=== PATIENT | male | born 2000 | race Caucasian/White ===

== ENCOUNTER 2020-08-17 12:14 | Emergency (ER) | payer SELFPAY ==
[2020-08-17 12:50] VITALS: BP 125/76; PULSE 92; RESP 14; TEMP 36.6; O2SAT 98
[2020-08-17 13:47] VITALS: BMI 20.9
--- NOTE | 2020-08-17 13:47 | XRR_ITS ---
PROCEDURE INFORMATION: Exam: XR Right Hand Exam date and time: 08/17/2020 2:03 PM Age: 20 years old Clinical indication: Injury or trauma; Other: Not specified; Blunt trauma (contusions or hematomas); Right; Middle finger TECHNIQUE: Imaging protocol: XR Right hand. Views: 1 or 2 views. COMPARISON: No relevant prior studies available. FINDINGS: Bones/joints: No fracture or dislocation. Soft tissues: Obscured. XR/XR hand RT 2V [id number] IMPRESSION: No acute findings.
--- NOTE | 2020-08-17 13:49 | ED_ITS ---
HPI - Extremity Problem General: Chief complaint: Extremity Injury, Upper Stated complaint: finger injury Time Seen by Provider: 08/17/20 13:44 Source: patient Mode of arrival: ambulatory Limitations: no limitations History of Present Illness: HPI Narrative: 20-year-old male patient presents to the emergency department with right third digit pain. Patient states it was smashed at work. Patient denies any numbness or tingling. Patient has good range of motion with this. Patient denies any other injury or trauma. Patient states he needs a work note so he can have time to heal his finger. This happened yesterday. Associated symptoms: Deny chest pain or fever(s) Review of Systems Const: Denies: fever(s), chills or body aches Eyes: Denies: change in vision ENMT: Denies: throat pain Card: Denies: chest pain or palpitations Resp: Denies: dyspnea, productive cough or non-productive cough GI: Denies: abdominal pain, nausea or vomiting : Denies: flank pain Musc: Reports: extremity pain; Denies: neck pain or back pain Psych: Denies: suicidal ideation or homicidal ideation Physical Exam Const: COMMON NORMALS: no acute distress, average body habitus, patient oriented x3, no limitations, healthy appearing, alert and well nourished Extremity: COMMON NORMALS: full ROM, capillary refill normal, no joint enlargement, no clubbing, cyanosis or edema and no pedal edema RIGHT UPPER EXTREMITY: Yes hand & digits Right hand and digits: Yes inspection (No obvious trauma), Yes palpation (Tender), Yes ROM exam (Full), Yes neurovascular exam (Neurovascularly intact) and Yes tendon exam (Intact) Neuro: COMMON NORMALS: patient oriented x3 SENSORIUM/ORIENTATION: Yes alert Skin: COMMON NORMALS: no rashes or lesions noted, no wounds, turgor normal, no jaundice, no petechiae and no mottling GENERAL SKIN EXAM: no rashes or lesions noted and turgor normal Course Vital Signs: Vital signs: Vital Signs Temperature 97.9 F 08/17/20 12:50 Pulse Rate 92 08/17/20 12:50 Respiratory Rate 14 08/17/20 12:50 Blood Pressure 125/76 08/17/20 12:50 Pulse Oximetry 98 08/17/20 12:50 MDM - Extremity (Nontraumatic) MDM Narrative: Medical decision making narrative: Patient is well-appearing nontoxic and in no acute distress. Patient is neurovascularly intact distal to injury. Patient has good range of motion. There is no obvious injury or trauma noted. Patient's x-ray by my interpretation does not reveal any dislocation or fracture. Patient's finger will be splinted. Advised patient to take ibuprofen as needed for discomfort. Return precautions discussed home care reviewed. Patient is medically cleared and appropriate for discharge Discharge Plan Discharge Patient Disposition: Home Clinical Impression: Contusion of finger Qualifiers: Encounter type: initial encounter Finger: middle finger Damage to nail status: without damage Laterality: right Qualified Code(s): S60.031A - Contusion of right middle finger without damage to nail, initial encounter Condition: Stable Discharge Orders: Discharge Order (Routine); Ordered 08/17/20 Ordered By: Margi Jung Discharge Diet: Advance as tolerated Discharge Activity: Resume usual activity Activity Restrictions/Additional Instructions: Wear finger splint for comfort May return to work Stand Alone Forms: Work/School Release Coding Level of Care Code ED 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
[2020-08-17 14:23] VITALS: BP 112/71; PULSE 72; RESP 18; TEMP 36.4; O2SAT 98
== END 2020-08-17 14:50 | disposition home or self-care (01) ==
PROVIDERS: Emergency Provider Registered Nurse
DX: S60.031A Contusion of right middle finger without damage to nail, initial encounter (principal); W23.0XXA Caught, crushed, jammed, or pinched between moving objects, initial encounter
CPT/HCPCS: 12345; 73120; 99281; 99282

== ENCOUNTER 2024-01-25 13:54 | Emergency (ER) | payer SELFPAY ==
--- NOTE | 2024-01-25 13:55 | XR_ITS ---
WS: [id number] Portable AP upright chest, 01/25/2024 Clinical Data: cp Comparison: None. Findings: No nodules, masses or effusions are seen. The heart is normal. The pulmonary vascularity is not increased. No pneumonia or pneumothorax is seen. XR/XR chest 1V portable [id number] Impression: Negative chest.
--- NOTE | 2024-01-25 13:56 | ECG_ITS ---
[facility] Test Date: 2024-01-25 Pat Name: Javed Do Department: Room: Gender: Male Recep: : 2000 Requested By: Vijaya Melton Order Number: [id number] Murcia MD: Abdelrahman Mcpherson M.D. Measurements Intervals Melber Rate: 86 P: 77 MI: 149 QRS: 84 QRSD: 90 T: 65 QT: 344 QTc: 414 Interpretive Statements SINUS RHYTHM POSSIBLE LEFT ATRIAL ENLARGEMENT [-0.1mV P-WAVE IN V1/V2] No previous ECG available for comparison Electronically Signed On 01-25-2024 17:12:00 CDT by Abdelrahman Mcpherson M.D. [id number]
[2024-01-25 14:02] VITALS: BP 124/74; PULSE 87; RESP 22; O2SAT 97
[2024-01-25 14:26] LABS: Hematocrit 43.2 % (37-53); Mean Corpuscular HGB Conc 33.1 g/dL (30-55); Mean Corpuscular Hemoglobin 29.4 pg (27-33); Mean Corpuscular Volume 88.7 fl (82-101); Mean Platelet Volume 9.8 fL (7.4-10.4); Platelet Count 188 10^3/cmm (157-399); Red Blood Count 4.87 10^6/uL (3.85-5.65); Red Cell Distribution Width 13.1 % (12.1-15.1); White Blood Count 12.15 10^3/uL (3.29-11.43)
[2024-01-25 14:46] LABS: Alanine Aminotransferase 32 U/L (0-41); Albumin Level 4.8 g/dL (3.5-5.2); Alkaline Phosphatase 128 U/L (40-130); Aspartate Amino Transferase 44 U/L (0-40); Blood Urea Nitrogen 9 mg/dL (6-20); Calcium 9.3 mg/dL (8.5-10.5); Carbon Dioxide 23 mmol/L (22-29); Chloride 98 mmol/L (98-107); Creatinine Clr Calc Pharmacy 179.1528; Glomerular Filtration Rate 138.6 mL/min (90-130); Glucose 108 mg/dL (65-115); Lipase 16 U/L (13-60); Osmolality Calculated 281 mOsm/kg (285-295); Sodium 136 mmol/L (136-145); Total Bilirubin 0.8 mg/dL (0.15-1.2); Total Protein 8.8 g/dL (6.6-8.7)
[2024-01-25 15:06] LABS: Slide Review Slide Review Perform
[2024-01-25 15:07] LABS: Absolute Eosinophils 0.4 10^3/cmm (0.0-0.7); Absolute Neutrophil 6.8 10^3/cmm (1.4-6.5); Absolute Segmented Neutrophil 5.3 10/cmm (1.6-7.1); Band Neutrophils Absolute 1.5 10^3/cmm (0.0-1.2); Eosinophils 3 %; Lymphocytes 29 %; Lymphocytes Absolute 3.5 10^3/cmm (1.2-3.4); Monocytes Absolute 0.9 10^3/cmm (0.1-0.6); Platelet Estimate Decreased (Normal); Segmented Neutrophils 44 %; Total Cells Counted 100 (0-100)
[2024-01-25 15:08] LABS: Giant Platelets Trace
[2024-01-25 16:32] VITALS: BP 141/82; PULSE 92; O2SAT 96
--- NOTE | 2024-01-25 16:37 | ED_ITS ---
HPI - Abdominal Pain 2 General: Chief Complaint: Abdominal Pain Stated Complaint: abd pain, lower back pain, chest pains Time Seen by Provider: 01/25/24 15:12 History of Present Illness: 23-year-old male patient comes in with a bdominal pain x 4 days. Patient reports nausea but no vomiting or diarrhea. Patient reports no blood in urine or stool. Patient denies any fever. Patient reports the pain seems to be all over his abdomen going to his right back and right inguinal area. Patient does use nicotine and THC. Patient denies alcohol or methamphetamines. Patient has no chronic medical problems and has had no surgeries except tympanostomy tubes in youth. Review of Systems 2 General: Reports: 10 or more systems reviewed and unremarkable except in HPI and below GI: Reports: abdominal pain Physical Exam 2 Const: COMMON NORMALS: alert HENMT: COMMON NORMALS: normocephalic HEAD & SCALP: normocephalic Neck/C-Spine: COMMON NORMALS: full ROM Resp: COMMON NORMALS: normal respiratory effort and clear to auscultation bilaterally AUSCULTATION: clear to auscultation bilaterally Cardio: COMMON NORMALS: regular rate RATE: regular rate GI: INSPECTION: Yes normal to inspection AUSCULTATION: Yes normoactive bowel sounds PALPATION: Yes Firmness to palpation present (GI) and Yes Tenderness to palpation present (GI) (Generalized) : COMMON NORMALS: Yes no CVA tenderness BLADDER/KIDNEY EXAM: Yes no CVA tenderness Back/Pelvis: COMMON NORMALS: no CVA tenderness Extremity: COMMON NORMALS: normal to inspection Neuro: SENSORIUM/ORIENTATION: Yes alert Skin: COMMON NORMALS: turgor normal NARRATIVE SKIN EXAM: Skin color slightly pale GENERAL SKIN EXAM: turgor normal Course 2 Vital Signs: Vital signs: Vital Signs Pulse Rate 92 01/25/24 16:32 Respiratory Rate 18 01/25/24 17:36 Blood Pressure 141/82 01/25/24 16:32 Pulse Oximetry 95 01/25/24 17:36 Oxygen Delivery Me thod Room Air 01/25/24 16:32 MDM - Abdominal Pain Medical Decision Making Patient comes in today for complaints of abdominal pain with nausea for the last 4 days. Patient appears unwell but not toxic. Skin is warm and dry color slightly pale. Abdomen is flat with some tenderness generalized to it. Patient moves all extremities well. Patient reported some tenderness in the chest wall with palpation. Vital signs are normal except for some mild elevation in respirations. Differential diagnosis incLudes renal calculi, viral syndrome, gastritis, pancreatitis, appendicitis, renal pyelonephritis, colitis. CBC noted some mild elevation white count 12,000. CMP was normal. CT of the abdomen pelvis noted no acute abdominal or pelvis abnormalities. Chest x-ray was negative. Patient was given IV fluids and medications for pain and nausea. Recommended treatment for viral syndrome with recommendations for follow-up or return to the ER. Patient reported understanding. Lab Data 01/25/24 14:16 01/25/24 14:16 Labs/Radiology: Radiology Impressions Chest X-Ray 01/25/24 13:55 Impression: Negative chest. Abdomen/Pelvis CT 01/25/24 16:43 IMPRESSION: 1. No evidence of acute abnormality in the abdomen or pelvis within limitations of a noncontrast exam. 2. Small right hip joint effusion. If there is concern for labral, muscle or tendon pathology, follow-up outpatient MRI may be helpful. Laboratory Results WBC 12.15 10^3/uL (3.29-11.43) H 01/25/24 14:16 RBC 4.87 10^6/uL (3.85-5.65) 01/25/24 14:16 Hgb 14.30 g/dL (11.27-16.99) 01/25/24 14:16 Hct 43.2 % (37-53) 01/25/24 14:16 MCV 88.7 fl (82-101) 01/25/24 14:16 MCH 29.4 pg (27-33) 01/25/24 14:16 MCHC 33.1 g/dL (30-55) 01/25/24 14:16 RDW 13.1 % (12.1-15.1) 01/25/24 14:16 Plt Count 188 10^3/cmm (157-399) 01/25/24 14:16 MPV 9.8 fL (7.4-10.4) 01/25/24 14:16 Lymph % (Auto) Not Reportable 01/25/24 14:16 [place] % (Auto) Not Reportable 01/25/24 14:16 Lymph # (Auto) Not Reportable 01/25/24 14:16 [place] # (Auto) Not Reportable 01/25/24 14:16 Total Counted 100 (0-100) 01/25/24 14:16 Atypical Lymphs % 0.0 % (0-5) 01/25/24 14:16 Absolute Neutrophils 6.8 10^3/cmm (1.4-6.5) H 01/25/24 14:16 Segmented Neutrophils 44 % 01/25/24 14:16 Abs Segm Neuts (Man) 5.3 10/cmm (1.6-7.1) 01/25/24 14:16 Band Neutrophils 12.0 % 01/25/24 14:16 Abs Band Neuts (Man) 1.5 10^3/cmm (0.0-1.2) H 01/25/24 14:16 Absolute Lymphocytes 3.5 10^3/cmm (1.2-3.4) H 01/25/24 14:16 Lymphocytes (Manual) 29 % 01/25/24 14:16 Monocytes (Manual) 7.0 % 01/25/24 14:16 Absolute Monocytes 0.9 10^3/cmm (0.1-0.6) H 01/25/24 14:16 Eosinophils (Manual) 3 % 01/25/24 14:16 Absolute Eosinophils 0.4 10^3/cmm (0.0-0.7) 01/25/24 14:16 Basophils (Manual) 0.0 % 01/25/24 14:16 Absolute Basophils 0.0 10^3/cmm (0.0-0.2) 01/25/24 14:16 Metamyelocytes 2.0 % 01/25/24 14:16 Myelocytes 2.0 % 01/25/24 14:16 Nucleated RBCs 1.0 /100WBC (0-1) 01/25/24 14:16 Platelet Estimate Decreased (Normal) 01/25/24 14:16 Giant Platelets Trace 01/25/24 14:16 Sodium 136 mmol/L (136-145) 01/25/24 14:16 Potassium 4.0 mmol/L (3.5-5.1) 01/25/24 14:16 Chloride 98 mmol/L (98-107) 01/25/24 14:16 Carbon Dioxide 23 mmol/L (22-29) 01/25/24 14:16 Anion Gap 19.0 (5-19) 01/25/24 14:16 BUN 9 mg/dL (6-20) 01/25/24 14:16 Creatinine 0.7 mg/dL (0.7-1.2) 01/25/24 14:16 GFR Calculation 138.6 mL/min (90-130) H 01/25/24 14:16 Glucose 108 mg/dL (65-115) 01/25/24 14:16 Calculated Osmolality 281 mOsm/kg (285-295) L 01/25/24 14:16 Calcium 9.3 mg/dL (8.5-10.5) 01/25/24 14:16 Total Bilirubin 0.8 mg/dL (0.15-1.2) 01/25/24 14:16 AST 44 U/L (0-40) H 01/25/24 14:16 ALT 32 U/L (0-41) 01/25/24 14:16 Alkaline Phosphatase 128 U/L (40-130) 01/25/24 14:16 Total Protein 8.8 g/dL (6.6-8.7) H 01/25/24 14:16 Albumin 4.8 g/dL (3.5-5.2) 01/25/24 14:16 Globulin 4.0 g/dL (1.3-4.6) 01/25/24 14:16 Lipase 16 U/L (13-60) 01/25/24 14:16 All radiology interpretation(s) finalized by discharge EKG Data EKG 1: I personally reviewed and interpreted this EKG as follows: EKG interpretation date: 01/25/24 EKG interpretation time: 14:10 Prior EKG tracings: not available for review Interpretation: EKG shows a regular sinus rhythm with a rate of [address] elevation is noted. Artifact was present on the EKG. No other ectopy was noted. No prior exam was available for comparison. Computer generated interpretation: Sinus rhythm, possible left atrial enlargement. Discharge Plan Discharge Patient Disposition: Home Clinical Impression: Viral syndrome Condition: Stable Prescriptions: New ondansetron 4 mg tablet,disintegrating 4 mg PO Q8H PRN (Reason: nausea and vomiting) Qty: 7 0RF hydrocodone-acetaminophen 5-325 mg tablet 1 tab PO Q8H PRN (Reason: pain) Qty: 7 0RF Discharge Orders: Discharge ED (Routine); Ordered 01/25/24 Ordered By: Stu Iraheta Discharge Diet: Usual diet Discharge Activity: Increase activity as tolerated Patient Instructions: Viral Syndrome (ED) Activity Restrictions/Additional Instructions: Drink plenty of water and fluids. Use acetaminophen and ibuprofen for body aches and pain. Use ondansetron for nausea and vomiting. Use hydrocodone for severe pain. Activity as tolerated. Follow-up with primary care in 2 to 3 days for recheck. Return to ED for worsening symptoms such as blood in vomit or stool, fever greater than 100.4, or increasing shortness of breath. Coding Level of Care Code ED Top Lift Trimmer for Marcelo Driscoll
--- NOTE | 2024-01-25 16:43 | CTR_ITS ---
PROCEDURE INFORMATION: Exam: CT Abdomen And Pelvis Without Contrast Exam date and time: 01/25/2024 4:49 PM Age: 23 years old Clinical indication: Abdominal pain; Localized; Right lower quadrant (rlq); Patient HX: Right groin pain that radiates to his back; Additional info: Right back inguinal pain TECHNIQUE: Imaging protocol: Computed tomography of the abdomen and pelvis without contrast. Radiation optimization: All CT scans at this facility use at least one of these dose optimization techniques: automated exposure control; mA and/or kV adjustment per patient size (includes targeted exams where dose is matched to clinical indication); or iterative reconstruction. COMPARISON: CR XR chest 1V portable [id number] 01/25/2024 2:09 PM RADIATION DOSE METRICS: Total DLP (mGy-cm): 592.28 FINDINGS: Lungs: Subsegmental bibasilar atelectasis. The visualized lung bases are otherwise clear. Diaphragm: No evidence of diaphragmatic defect. Liver: No evidence of focal hepatic lesion within limitation of a noncontrast exam. Gallbladder and bile ducts: Gallbladder is unremarkable. No evidence of intra-hepatic or extra-hepatic biliary dilatation. Pancreas: Grossly unremarkable. Spleen: Grossly unremarkable. Adrenal glands: Grossly unremarkable. Kidneys and ureters: No gross renal parenchymal abnormality. No evidence of hydronephrosis or ureteral stone. Stomach and bowel: No evidence of bowel obstruction or perienteric inflammatory changes. Appendix: Normal appendix. Intraperitoneal space: No evidence of free air or fluid collection. Vasculature: No evidence of aneurysmal dilitation of abdominal aorta. Lymph nodes: No evidence of adenopathy. Urinary bladder: Grossly unremarkable. Reproductive: Grossly unremarkable. Bones/joints: No evidence of acute fracture or aggresive osseous lesion. Small right hip joint effusion. Soft tissues: No evidence of fluid collection or hematoma in the superficial soft tissues. CT/CT kidney stone [id number] IMPRESSION: 1. No evidence of acute abnormality in the abdomen or pelvis within limitations of a noncontrast exam. 2. Small right hip joint effusion. If there is concern for labral, muscle or tendon pathology, follow-up outpatient MRI may be helpful.
[2024-01-25 17:36] VITALS: RESP 18; O2SAT 95
[2024-01-25] MEDS: ondansetron 2 mg/ML SDV 2 mL 4 MG IVP (17:36)
[2024-01-25] MEDS: morphine 4 mg/mL SDV 1 mL IVP (17:36)
[2024-01-25] MEDS: ketorolac 30 mg/mL INJ 15 MG IVP (17:38)
[2024-01-25] MEDS: sodium chloride 0.9% 1,000 ML 999 ML IV (18:05)
[2024-01-25 18:47] VITALS: PULSE 85; O2SAT 96
[2024-01-25 19:17] VITALS: PULSE 87; O2SAT 95
== END 2024-01-25 19:35 | disposition home or self-care (01) ==
PROVIDERS: Emergency Medicine; Emergency Provider Nurse Practitioner Family
DX: B34.9 Viral infection, unspecified (principal)
CPT/HCPCS: 36415; 71045; 74176; 80053; 81000; 83690; 85007; 85025; 93005; 96374; 96375; 99285; J1885; J2270; J2405; J7030

== ENCOUNTER 2024-02-08 05:15 | Emergency (ER) | payer SELFPAY ==
[2024-02-08 05:16] VITALS: BP 140/99; PULSE 95; RESP 18; TEMP 36.6; O2SAT 98; BMI 25.1
--- NOTE | 2024-02-08 05:27 | XRR_ITS ---
PROCEDURE INFORMATION: Exam: XR Lumbosacral Spine Exam date and time: 02/08/2024 5:30 AM Age: 23 years old Clinical indication: Low back pain TECHNIQUE: Imaging protocol: Radiologic exam of the lumbosacral spine. Views: 2 or 3 views. COMPARISON: CT kidney stone [id number] 01/25/2024 4:49 PM FINDINGS: Bones/joints: No acute osseous pathology in the lumbar spine. Anatomic alignment. Diminished lumbar lordosis. Soft tissues: Unremarkable. XR/XR lumbar spine 2-3V* [id number] IMPRESSION: Diminished lordosis, otherwise unremarkable lumbar spine.
--- NOTE | 2024-02-08 05:28 | W.ED.BACK ---
Documented by User: Cesario Sullivan DO 02/08/24 05:34 HPI - Back Pain/Injury General: Chief Complaint: Back Pain/Injury Stated Complaint: back pain Time Seen by Provider: 02/08/24 05:23 History of Present Illness: Patient presents here by EMS with complaints of low back pain. Patient said it woke him up from sleep. Patient said he was here about within the last couple weeks for the exact same type pain. He does have prescription bottles for hydrocodone and Zofran dated 01/[address] Melton. Patient denies any new trauma or overexertion. Patient denies any abdominal pain nausea vomiting diarrhea constipation urinary pain burning frequency. Review of Systems General: Reports: 10 or more systems reviewed and unremarkable except in HPI and below Physical Exam Const: COMMON NORMALS: no acute distress, average body habitus, patient oriented x3, no limitations, healthy appearing and well nourished OTHER: Upon my entrance into the exam room patient was lying on the cot in no acute distress nontoxic and does not appear to be any pain. Neck/C-Spine: COMMON NORMALS: no JVD Chest: COMMONS NORMALS: normal inspection of the chest and normal palpation of entire chest wall Resp: COMMON NORMALS: normal respiratory effort, No retractions, No use of accessory muscles and clear to auscultation bilaterally AUSCULTATION: clear to auscultation bilaterally Cardio: COMMON NORMALS: no JVD, regular rate, regular rhythm, S1 normal heart sound present, S2 normal heart sound present, No gallops present (Cardio), No clicks present (Cardio), No murmurs present (Cardio) and No rub (Cardio) RATE: regular rate RHYTHM: regular rhythm HEART SOUNDS: S1 normal heart sound present and S2 normal heart sound present GI: COMMON NORMALS: Normal to inspection, nondistended, normoactive bowel sounds present, Soft to palpation, non-tender, No hepatosplenomegaly present and no masses PALPATION: Yes Soft to palpation and Yes No hepatosplenomegaly present Back/Pelvis: OTHER: Patient rolled over to his left side from being supine with the utmost of these and without pain. However when I gently touched his spinous processes of his lumbar region he started moaning and writhing in pain. Irregardless of the amount of pressure I put on the processes that the moaning and writhing stayed the same. I could move my hand to the thoracic region or to the paraspinal muscles and they were pain-free. Patient had good range of motion his lumbar spine without increasing pain. Neuro: COMMON NORMALS: patient oriented x3 Course Vital Signs: Vital signs: Vital Signs Temperature 97.8 F 02/08/24 05:16 Pulse Rate 84 02/08/24 11:56 Respiratory Rate 18 02/08/24 05:16 Blood Pressure 119/74 02/08/24 11:56 Pulse Oximetry 95 02/08/24 11:56 Oxygen Delivery Me thod Room Air 02/08/24 11:56 MDM - Back Pain/Injury Medical Decision Making Chart from 01 24 was reviewed with patient came in for abdominal pain not low back pain, reviewed the lab work and a CT scan of the abdomen pelvis, and noted patient was given Zofran for nausea, hydrocodone for severe pain at that time. Labs Radiology Impressions Lumbar Spine X-Ray 02/08/24 05:27 IMPRESSION: Diminished lordosis, otherwise unremarkable lumbar spine. Abdomen/Pelvis CT 02/08/24 09:34 IMPRESSION: 1. No renal obstruction or calcification. 2. Very subtle soft tissue thickening at the base of the urinary bladder. This should not be the prostate gland encroaching due to the young age of the patient. This may be debris or tumor. Undulating nondistended bladder mucosa may also appear similar. This can be further evaluated by ultrasound. 3. Normal appendix. 4. Spleen is measuring top normal size. 5. There are a few small mesenteric and RIGHT lower quadrant lymph nodes which are not pathologic and similar to the prior study. Small lymph nodes can be seen with mesenteric adenitis. Laboratory Results Urine Color Yellow (Yellow) 02/08/24 05:50 Urine Appearance Slightly cloudy (CLEAR) 02/08/24 05:50 Urine pH 6 (5-7) 02/08/24 05:50 Ur Specific [place] 1.015 (1.005-1.030) 02/08/24 05:50 Urine Protein 3+ (Negative) H 02/08/24 05:50 Urine Glucose (UA) Norm (Normal) 02/08/24 05:50 Urine Ketones 1+ (Negative) H 02/08/24 05:50 Urine Blood 2+ (Negative) H 02/08/24 05:50 Urine Nitrate Negative (Negative) 02/08/24 05:50 Urine Bilirubin 1+ (Negative) H 02/08/24 05:50 Urine Urobilinogen Neg mg/dL (Negative) 02/08/24 05:50 Ur Leukocyte Esterase Negative (Negative) 02/08/24 05:50 Urine RBC 5-10 /hpf (0-2) H 02/08/24 05:50 Urine WBC 0-4 /hpf (0-5) H 02/08/24 05:50 Ur Squamous Epith Cells None /hpf (0-5) 02/08/24 05:50 Amorphous Sediment Trace /hpf 02/08/24 05:50 Urine Bacteria Trace /hpf (NONE) 02/08/24 05:50 Hyaline Casts 0-4 /lpf H 02/08/24 05:50 Urine Mucus 4+ /hpf 02/08/24 05:50 Urine Opiates Screen Positive ng/mL (Negative) H 02/08/24 05:50 Ur Barbiturates Screen Negative ng/mL (Negative) 02/08/24 05:50 Ur Phencyclidine Scrn Negative ng/mL (Negative) 02/08/24 05:50 Ur Amphetamines Screen Negative ng/mL (Negative) 02/08/24 05:50 U Benzodiazepines Scrn Negative ng/mL (Negative) 02/08/24 05:50 Urine Cocaine Screen Negative ng/mL (Negative) 02/08/24 05:50 U Marijuana (THC) Screen Positive ng/mL (Negative) H 02/08/24 05:50 All radiology interpretation(s) finalized by discharge Discharge Plan Discharge Patient Disposition: Home Clinical Impression: Strain of lumbar region Condition: Stable Prescriptions: New tizanidine 4 mg tablet 4 mg PO Q6H PRN (Reason: muscle spasticity) Qty: 20 0RF Rx Instructions: do not exceed 3 doses per 24 hrs prednisone 20 mg tablet 20 mg PO TID Qty: 15 0RF Rx Instructions: 1 p.o. 3 times daily x3 days, 1 p.o. twice daily x2 days, 1 p.o. daily x2 days diclofenac sodium 75 mg tablet,delayed release (DR/EC) 75 mg PO Q12H PRN (Reason: pain) Qty: 20 0RF tramadol 50 mg tablet 50 mg PO Q8H PRN (Reason: pain) Qty: 15 0RF No Action ondansetron 4 mg tablet,disintegrating 4 mg PO Q8H PRN (Reason: nausea and vomiting) Qty: 7 0RF Discharge Orders: Discharge ED (Routine); Ordered 02/08/24 Ordered By: Frederic Lyn Discharge Diet: Usual diet Discharge Activity: Increase activity as tolerated Patient Instructions: Acute Low Back Pain (ED), Opioid Safety, Pain Management Activity Restrictions/Additional Instructions: Thank you for choosing [facility] for your healthcare needs today. Please realize this is an emergency room and that we are providing you with a medical screening exam and this may not be complete and all inclusive of all the testing and or work up that you may need to determine your ailment or severity of your illness. It is very important that you follow up as instructed or that you return to the Emergency Department should you have concerns or if your condition changes or worsens in any way. You are seen today for low back pain. You did have a small amount of blood in your urine although the CT was unremarkable. You should have your urine rechecked by your primary care doctor in the next 2 weeks. If your back pain persist follow-up with primary care as well they can reevaluate for further treatment options. Sign Out Sign Out Data: Patient Sign Out occurred on 02/08/24 at 06:04. Patient's care was discussed, and care was transferred from Cesario Sullivan DO to Frederic Lyn DO. Coding Level of Care Code ED Horse Trainer for Chg Fwd Documented by User: Frederic Lyn DO 02/08/24 17:13 HPI - Back Pain/Injury General: Chief Complaint: Back Pain/Injury Stated Complaint: back pain Time Seen by Provider: 02/08/24 05:23 Course Vital Signs: Vital signs: Vital Signs Temperature 97.8 F 02/08/24 05:16 Pulse Rate 84 02/08/24 11:56 Respiratory Rate 18 02/08/24 05:16 Blood Pressure 119/74 02/08/24 11:56 Pulse Oximetry 95 02/08/24 11:56 Oxygen Delivery Me thod Room Air 02/08/24 11:56 MDM - Back Pain/Injury Medical Decision Making Chart from 01 24 was reviewed with patient came in for abdominal pain not low back pain, reviewed the lab work and a CT scan of the abdomen pelvis, and noted patient was given Zofran for nausea, hydrocodone for severe pain at that time. Care assumed at change of shift. Patient did have some microscopic hematuria CT renal stone protocol was done and was negative if there is more musculoskeletal back pain we will discharge him home with steroids diclofenac and tizanidine. Follow-up with his primary care doctor return if has further problems. I did repeat his exam and assumed care he has good deep tendon reflexes bilaterally and straight leg raising is negative. Patient vies follow-up with his primary care doctor regarding the microscopic hematuria. Should also review the bladder findings on the CT with his primary care doctor. Differential Diagnosis Likely strain of lumbar region Medical Records I reviewed the patient's medical records. Labs I reviewed the patient's lab results. Radiology Impressions Lumbar Spine X-Ray 02/08/24 05:27 IMPRESSION: Diminished lordosis, otherwise unremarkable lumbar spine. Abdomen/Pelvis CT 02/08/24 09:34 IMPRESSION: 1. No renal obstruction or calcification. 2. Very subtle soft tissue thickening at the base of the urinary bladder. This should not be the prostate gland encroaching due to the young age of the patient. This may be debris or tumor. Undulating nondistended bladder mucosa may also appear similar. This can be further evaluated by ultrasound. 3. Normal appendix. 4. Spleen is measuring top normal size. 5. There are a few small mesenteric and RIGHT lower quadrant lymph nodes which are not pathologic and similar to the prior study. Small lymph nodes can be seen with mesenteric adenitis. Laboratory Results Urine Color Yellow (Yellow) 02/08/24 05:50 Urine Appearance Slightly cloudy (CLEAR) 02/08/24 05:50 Urine pH 6 (5-7) 02/08/24 05:50 Ur Specific [place] 1.015 (1.005-1.030) 02/08/24 05:50 Urine Protein 3+ (Negative) H 02/08/24 05:50 Urine Glucose (UA) Norm (Normal) 02/08/24 05:50 Urine Ketones 1+ (Negative) H 02/08/24 05:50 Urine Blood 2+ (Negative) H 02/08/24 05:50 Urine Nitrate Negative (Negative) 02/08/24 05:50 Urine Bilirubin 1+ (Negative) H 02/08/24 05:50 Urine Urobilinogen Neg mg/dL (Negative) 02/08/24 05:50 Ur Leukocyte Esterase Negative (Negative) 02/08/24 05:50 Urine RBC 5-10 /hpf (0-2) H 02/08/24 05:50 Urine WBC 0-4 /hpf (0-5) H 02/08/24 05:50 Ur Squamous Epith Cells None /hpf (0-5) 02/08/24 05:50 Amorphous Sediment Trace /hpf 02/08/24 05:50 Urine Bacteria Trace /hpf (NONE) 02/08/24 05:50 Hyaline Casts 0-4 /lpf H 02/08/24 05:50 Urine Mucus 4+ /hpf 02/08/24 05:50 Urine Opiates Screen Positive ng/mL (Negative) H 02/08/24 05:50 Ur Barbiturates Screen Negative ng/mL (Negative) 02/08/24 05:50 Ur Phencyclidine Scrn Negative ng/mL (Negative) 02/08/24 05:50 Ur Amphetamines Screen Negative ng/mL (Negative) 02/08/24 05:50 U Benzodiazepines Scrn Negative ng/mL (Negative) 02/08/24 05:50 Urine Cocaine Screen Negative ng/mL (Negative) 02/08/24 05:50 U Marijuana (THC) Screen Positive ng/mL (Negative) H 02/08/24 05:50 Discharge Plan Discharge Patient Disposition: Home Clinical Impression: Strain of lumbar region Condition: Stable Prescriptions: New tizanidine 4 mg tablet 4 mg PO Q6H PRN (Reason: muscle spasticity) Qty: 20 0RF Rx Instructions: do not exceed 3 doses per 24 hrs prednisone 20 mg tablet 20 mg PO TID Qty: 15 0RF Rx Instructions: 1 p.o. 3 times daily x3 days, 1 p.o. twice daily x2 days, 1 p.o. daily x2 days diclofenac sodium 75 mg tablet,delayed release (DR/EC) 75 mg PO Q12H PRN (Reason: pain) Qty: 20 0RF tramadol 50 mg tablet 50 mg PO Q8H PRN (Reason: pain) Qty: 15 0RF No Action ondansetron 4 mg tablet,disintegrating 4 mg PO Q8H PRN (Reason: nausea and vomiting) Qty: 7 0RF Discharge Orders: Discharge ED (Routine); Ordered 02/08/24 Ordered By: Frederic Lyn Discharge Diet: Usual diet Discharge Activity: Increase activity as tolerated Patient Instructions: Acute Low Back Pain (ED), Opioid Safety, Pain Management Activity Restrictions/Additional Instructions: Thank you for choosing [facility] for your healthcare needs today. Please realize this is an emergency room and that we are providing you with a medical screening exam and this may not be complete and all inclusive of all the testing and or work up that you may need to determine your ailment or severity of your illness. It is very important that you follow up as instructed or that you return to the Emergency Department should you have concerns or if your condition changes or worsens in any way. You are seen today for low back pain. You did have a small amount of blood in your urine although the CT was unremarkable. You should have your urine rechecked by your primary care doctor in the next 2 weeks. If your back pain persist follow-up with primary care as well they can reevaluate for further treatment options. Sign Out Sign Out Data: Patient Sign Out occurred on 02/08/24 at 06:04. Patient's care was discussed, and care was transferred from Cesario Sullivan DO to Frederic Lyn DO. Coding Level of Care Code ED Horse Trainer for Marcelo Driscoll
[2024-02-08 06:04] LABS: Amphetamines Screen Urine Negative (Negative); Barbiturates Screen Urine Negative (Negative); Benzodiazepines Screen Urine Negative (Negative); Cocaine Screen Urine Negative (Negative); Opiate Screen Urine Positive (Negative); PCP Screen Urine Negative (Negative); THC Screen Urine Positive (Negative)
[2024-02-08 06:19] LABS: Add Urine Microscopic? YES; Bilirubin Urine 1+ (Negative); Blood Urine 2+ (Negative); Glucose Urine UA Norm (Normal); Ketones Urine 1+ (Negative); Leukocyte Esterase Urine Negative (Negative); Nitrate Urine Negative (Negative); Protein Urine 3+ (Negative); Specific Gravity, Urine 1.015 (1.005-1.030); Urine Appearance Slightly Cloudy (CLEAR); Urine Color Yellow (Yellow); Urobilinogen Urine Neg (Negative); pH Urine 6 (5-7)
[2024-02-08 06:21] LABS: Add Urine Culture? No; Amorphous Sediment Urine TRACE /hpf; Bacteria Urine TRACE /hpf; Hyaline Casts Urine 0-4 /lpf; Mucus Urine 4+ /hpf; WBC Urine 0-4 /hpf (0-5)
--- NOTE | 2024-02-08 09:34 | CT_ITS ---
WS: [id number] CT ABDOMEN AND PELVIS NONCONTRAST HISTORY: hematuria TECHNIQUE: Imaging performed through the abdomen and pelvis. Coronal and sagittal reformats are submi tted. All CT scans at [facility] use at least one of these dose optimization techniques: auto mated exposure control; mA and/or kV adjustment per patient size (includes targeted exams where dose is matched to clinical indication); or iterative reconstruction. DLP: 488.31 mGy.cm COMPARISON: 01/25/2024 Lower thorax: Lung bases are clear. Visualized heart is normal. No hiatal hernia. Liver: Normal size liver. No mass or bile duct dilatation. Gallbladder: Normal gallbladder. No pericholecystic fluid or cholelithiasis. No gallbladder wall thic kening. Pancreas: Normal size and attenuation. Normal pancreatic duct. No pancreatitis or mass. Spleen: Top normal size spleen at 12.5 cm. Adrenal glands: Normal. No mass. Right kidney: Normal size kidney with no mass or hydronephrosis. Left kidney: Normal size kidney with no mass or hydronephrosis. Aorta: Normal abdominal aorta, no aneurysm or atherosclerosis. No free fluid. No free air. There are small central mesenteric and RIGHT lower quadrant lymph nodes. No adenopathy. GI tract: Normal noncontrast imaging of the stomach, small bowel and colon. No obstruction or wall th ickening. Normal appendix. Abdominal wall: Negative. No hernia. Pelvis: Urinary bladder is only slightly distended. At the base of the urinary bladder is some increa sed soft tissue thickening. Prostate gland does not appear significantly enlarged and the this age sh ould not be encroaching into the bladder. This may be some debris or infection. Osseous structures: Unremarkable. CT/CT kidney stone [id number] IMPRESSION: 1. No renal obstruction or calcification. 2. Very subtle soft tissue thickening at the base of the urinary bladder. This should not be the prostate gland encroaching due to the young age of the patie nt. This may be debris or tumor. Undulating nondistended bladder mucosa may als o appear similar. This can be further evaluated by ultrasound. 3. Normal appendix. 4. Spleen is measuring top normal size. 5. There are a few small mesenteric and RIGHT lower quadrant lymph nodes which are not pathologic and similar to the prior study. Small lymph nodes can be se en with mesenteric adenitis.
[2024-02-08] MEDS: orphenadrine 30 mg/mL Inj 2 mL 60 MG IM (10:18)
[2024-02-08] MEDS: morphine 4 mg/mL SDV 1 mL IVP (10:23)
[2024-02-08] MEDS: ketorolac 30 mg/mL INJ IVP (10:23)
[2024-02-08 11:56] VITALS: BP 119/74; PULSE 84; O2SAT 95
== END 2024-02-08 12:00 | disposition home or self-care (01) ==
PROVIDERS: Emergency Medicine; Emergency Provider Family Medicine
DX: S39.012A Strain of muscle, fascia and tendon of lower back, initial encounter (principal); X58.XXXA Exposure to other specified factors, initial encounter
CPT/HCPCS: 72100; 74176; 80306; 81001; 96372; 96374; 96375; 99285; J1885; J2270; J2360

== ENCOUNTER 2024-03-12 10:36 | Emergency (ER) | payer SELFPAY ==
[2024-03-12 10:54] VITALS: BMI 21.4
[2024-03-12 11:00] VITALS: BP 125/75; PULSE 132; RESP 18; TEMP 36.7; O2SAT 95
--- NOTE | 2024-03-12 11:04 | ED_ITS ---
HPI - Epistaxis 2 General: Chief complaint: Epistaxis Stated complaint: nose bleed for 2 hours Time Seen by Provider: 03/12/24 11:04 Source: patient and family (sister) Mode of arrival: wheelchair Limitations: no limitations History of Present Illness: Patient is a 24-year-old male who presents to ED today along with his sibling for evaluation of epistaxis. Sibling states at the age of 6 he shoved some string up his nose and this reportedly was not removed until many years later. She states ever since then he has had intermittent nosebleeds. He states his nosebleed today woke him up around 830. He states bleeding was very heavy until arrival to the emergency department at which point it subsided. Patient has pictures of the amount of blood he lost this morning and I would quantify it as approximately 1.5 cups. Patient is somewhat pale upon arrival. He is tachycardic. Sister states he is normally tachycardic secondary to anxiety. At time of my initial examination patient is not having any active bleeding. No recent injury/trauma to nose. Sister in the process of getting guardianship of patient has he has mental health problems including intellectual disability. Of note patient has been seen here twice in ED last month for abdominal/back pains. Labs at those times were unremarkable. He has had two abdominal/pelvis CT scans of which were fairly unremarkable. One showing a minor right hip effusion. Later scan showed slight abnormality of urinary bladder-they are reportedly following up with PCP for this. MD complaint: epistaxis Location: right nostril Onset (ago): hour(s) Duration: now resolved Context: history of previous Associated symptoms: Reports no associated symptoms; Deny fever(s), headache(s), sinus pain or vomiting Review of Systems 2 Const: Denies: fever(s), chills, body aches, fatigue or malaise ENMT: Reports: epistaxis; Denies: throat pain, odynophagia, ear or mastoid pain, nasal discharge, nasal congestion or sinus pain Card: Denies: chest pain Resp: Denies: dyspnea, productive cough, wheezing, hemoptysis or chest congestion GI: Reports: nausea; Denies: abdominal pain, vomiting, hematemesis or diarrhea Musc: Denies: neck pain, back pain, extremity pain or joint pain Neuro: Reports: dizziness; Denies: headache(s), numbness in extremities, weakness in extremities, sensory changes or difficulty walking Physical Exam 2 Const: COMMON NORMALS: no acute distress, average body habitus, patient oriented x3, no limitations, alert and well nourished GENERAL APPEARANCE: c ooperative ORIENTATION/CONSCIOUSNESS: Yes awake, Yes oriented to person, Yes oriented to place and Yes oriented to time OTHER: appears very pale HENMT: COMMON NORMALS: normocephalic and atraumatic HEAD & SCALP: normal to inspection, normocephalic and atraumatic FACE & SINUS: normal facial exam, sinuses nontender and face symmetric; no sinus tenderness NOSE: Normal septum present and Other nasal findings present (small amount of dried blood to R nare-no active bleeding) MOUTH: N ormal oral and palatal mucosa present and lip normal TEETH & GINGIVA: Yes caries and Yes poor dentition THROAT: posterior oropharynx normal and tonsils normal Eye: GENERAL EYE: appearance normal, both eyes and all related structures and normal light reflex DIRECT OPHTHALMOSCOPY: Yes normal light reflex Neck/C-Spine: COMMON NORMALS: no lymphadenopathy GENERAL: Yes normal visual inspection, No anterior neck swelling and No submandibular swelling Resp: COMMON NORMALS: normal respiratory effort and clear to auscultation bilaterally AUSCULTATION: clear to auscultation bilaterally Cardio: COMMON NORMALS: regular rhythm RATE: tachycardic RHYTHM: regular rhythm GI: COMMON NORMALS: Normal to inspection, nondistended, normoactive bowel sounds present, Soft to palpation and non-tender PALPATION: Yes Soft to palpation Neuro: [place] COMA SCALE: document GCS findings [place] coma scale eye opening: Spontaneous [place] coma scale verbal response: Orientated [place] coma scale motor response: Obey commands [place] coma scale total score: 15 COMMON NORMALS: patient oriented x3, CN's II-XII intact bilaterally, moves all extremities, no focal motor deficits and no sensory deficits noted S ENSORIUM/ORIENTATION: Yes alert, Yes oriented to person, Yes oriented to place and Yes oriented to time Skin: COMMON NORMALS: no rashes or lesions noted GENERAL SKIN EXAM: no rashes or lesions noted Course 2 Consultations: Consultation #1: Dr. White-recommends transfer Consultation #2: Dr. Barrientos-hem/onc at [facility] and Dr. Madsen-hospitalist at [facility]: accepting transfer, recommend IV fluids and allopurinol Vital Signs: Vital signs: Vital Signs Temperature 98.0 F 06/25/24 11:00 Pulse Rate 112 H 03/12/24 14:00 Respiratory Rate 22 H 03/12/24 14:00 Blood Pressure 144/84 03/12/24 14:00 Pulse Oximetry 97 03/12/24 14:00 Oxygen Delivery Me thod Room Air 03/12/24 14:00 MDM - Epistaxis Medical Decision Making Patient has profound abnormalities to his blood work today including a white cell count of over 66,000. He is significantly anemic with an H&H of 6.0/20. Platelet count is down to 64. He has significant derangements on his CMP including elevated LFTs. His uric acid and lactic acid are elevated. His LDH is profoundly elevated at 8583. I spoke to Dr. Melton as well as hospitalist Dr. White who are concerned about an acute leukemia and recommend transfer. I have spoken to Dr. Barrientos/hem/onc at [facility] who agrees he needs emergent transfer-only recommending IV fluids and Allopurinol at this time. Given his severity-we will use [facility] for transfer. Medical Records I reviewed the patient's medical records. Lab Data I reviewed the patient's lab results. 03/12/24 12:53 03/12/24 12:53 Radiology Impressions Chest X-Ray 03/12/24 12:08 IMPRESSION: Unremarkable chest radiograph. Laboratory Results WBC 53.46 10^3/uL (3.29-11.43) H* 03/12/24 12:53 Corrected WBC 57.6 10^3/cmm (4.8-10.8) H 03/12/24 11:26 RBC 1.85 10^6/uL (3.85-5.65) L 03/12/24 12:53 Hgb 5.60 g/dL (11.27-16.99) L* 03/12/24 12:53 Hct 18.7 % (37-53) L* 03/12/24 12:53 MCV 101.1 fl (82-101) H 03/12/24 12:53 MCH 30.3 pg (27-33) 03/12/24 12:53 MCHC 29.9 g/dL (30-55) L 03/12/24 12:53 RDW 20.8 % (12.1-15.1) H 03/12/24 12:53 Plt Count 59 10^3/cmm (157-399) L 03/12/24 12:53 MPV 11.3 fL (7.4-10.4) H 03/12/24 12:53 Neut % (Auto) 13.3 % 03/12/24 12:53 Lymph % (Auto) 51.9 % 03/12/24 12:53 [place] % (Auto) 30.1 % 03/12/24 12:53 Eos % (Auto) 0.0 % 03/12/24 12:53 Baso % (Auto) 0.4 % 03/12/24 12:53 Neut # (Auto) 7.17 10^3/uL (1.8-7.7) 03/12/24 12:53 Lymph # (Auto) 27.7 10^3/uL (0.8-4.8) H 03/12/24 12:53 [place] # (Auto) 16.1 10^3/uL (0.2-0.9) H 03/12/24 12:53 Eos # (Auto) 0.0 10^3/uL (0.0-0.8) 03/12/24 12:53 Baso # (Auto) 0.2 10^3/uL (0.0-0.1) H 03/12/24 12:53 Nucleated RBC % (auto) 5.0 % 03/12/24 12:53 Total Counted 100 (0-100) 03/12/24 11:26 Atypical Lymphs % 2.0 % (0-5) 03/12/24 11:26 Absolute Neutrophils 19.4 10^3/cmm (1.4-6.5) H 03/12/24 11:26 Segmented Neutrophils 26 % 03/12/24 11:26 Abs Segm Neuts (Man) 17.4 10/cmm (1.6-7.1) H 03/12/24 11:26 Band Neutrophils 3.0 % 03/12/24 11:26 Abs Band Neuts (Man) 2.0 10^3/cmm (0.0-1.2) H 03/12/24 11:26 Absolute Lymphocytes 38.8 10^3/cmm (1.2-3.4) H 03/12/24 11:26 Lymphocytes (Manual) 56 % 03/12/24 11:26 Monocytes (Manual) 4.0 % 03/12/24 11:26 Absolute Monocytes 2.7 10^3/cmm (0.1-0.6) H 03/12/24 11:26 Eosinophils (Manual) 0 % 03/12/24 11:26 Absolute Eosinophils 0.0 10^3/cmm (0.0-0.7) 03/12/24 11:26 Basophils (Manual) 0.0 % 03/12/24 11:26 Absolute Basophils 0.0 10^3/cmm (0.0-0.2) 03/12/24 11:26 Metamyelocytes 4.0 % 03/12/24 11:26 Myelocytes 4.0 % 03/12/24 11:26 Promyelocytes 1.0 % 03/12/24 11:26 Nucleated RBCs 16.0 /100WBC (0-1) H 03/12/24 11:26 Nucleated RBCs # 2.7 /100WBC 03/12/24 12:53 Platelet Estimate Decreased (Normal) 03/12/24 11:26 Giant Platelets Trace 03/12/24 11:26 Polychromasia 1+ H 03/12/24 11:26 Anisocytosis 2+ H 03/12/24 11:26 Macrocytosis 2+ H 03/12/24 11:26 PT 15.90 SECONDS (12.1-14.9) H 03/12/24 11:26 INR 1.23 (0.8-1.2) H 03/12/24 11:26 APTT 31.5 SECONDS (23.9-36.7) 03/12/24 11:26 Sodium 129 mmol/L (136-145) L 03/12/24 12:53 Potassium 4.0 mmol/L (3.5-5.1) 03/12/24 12:53 Chloride 88 mmol/L (98-107) L 03/12/24 12:53 Carbon Dioxide 23 mmol/L (22-29) 03/12/24 12:53 Anion Gap 22.0 (5-19) H 03/12/24 12:53 BUN 7 mg/dL (6-20) 03/12/24 12:53 Creatinine 0.6 mg/dL (0.7-1.2) L 03/12/24 12:53 GFR Calculation 164.2 mL/min (90-130) H 03/12/24 12:53 Glucose 68 mg/dL (65-115) 03/12/24 12:53 Calculated Osmolality 264 mOsm/kg (285-295) L 03/12/24 12:53 Lactic Acid 6.3 mmol/L (0.5-2.2) H* 03/12/24 12:53 Uric Acid 8.1 mg/dL (3.4-7.0) H 03/12/24 11:26 Calcium 8.3 mg/dL (8.5-10.5) L 03/12/24 12:53 Total Bilirubin 1.6 mg/dL (0.15-1.2) H 03/12/24 12:53 AST 143 U/L (0-40) H 03/12/24 12:53 ALT 45 U/L (0-41) H 03/12/24 12:53 Alkaline Phosphatase 857 U/L (40-130) H 03/12/24 12:53 Lactate Dehydrogenase 8583 U/L (135-225) H 03/12/24 11:26 Total Protein 5.3 g/dL (6.6-8.7) L 03/12/24 12:53 Albumin 2.9 g/dL (3.5-5.2) L 03/12/24 12:53 Globulin 2.4 g/dL (1.3-4.6) 03/12/24 12:53 Urine Color Yellow (Yellow) 03/12/24 12:59 Urine Appearance Slightly cloudy (CLEAR) 03/12/24 12:59 Urine pH 5 (5-7) 03/12/24 12:59 Ur Specific [place] 1.015 (1.005-1.030) 03/12/24 12:59 Urine Protein 1+ (Negative) H 03/12/24 12:59 Urine Glucose (UA) Norm (Normal) 03/12/24 12:59 Urine Ketones 1+ (Negative) H 03/12/24 12:59 Urine Blood 2+ (Negative) H 03/12/24 12:59 Urine Nitrate Negative (Negative) 03/12/24 12:59 Urine Bilirubin 1+ (Negative) H 03/12/24 12:59 Urine Urobilinogen 4 mg/dL (Negative) H 03/12/24 12:59 Ur Leukocyte Esterase Trace (Negative) H 03/12/24 12:59 Urine RBC 0-4 /hpf (0-2) H 03/12/24 12:59 Urine WBC 5-10 /hpf (0-5) H 03/12/24 12:59 Ur Squamous Epith Cells 0-4 /hpf (0-5) H 03/12/24 12:59 Ur Transition Epith Cell 0-4 /hpf 03/12/24 12:59 Ur Renal Epithelial Cell 0-4 /hpf 03/12/24 12:59 Amorphous Sediment Trace /hpf 03/12/24 12:59 Urine Bacteria Trace /hpf (NONE) 03/12/24 12:59 Hyaline Casts 15-25 /lpf H 03/12/24 12:59 Fine Granular Casts 0-4 /lpf H 03/12/24 12:59 Other Casts Broad and waxy 0-4 /lpf 03/12/24 12:59 Urine Mucus 2+ /hpf 03/12/24 12:59 Blood Type O Positive 03/12/24 12:53 Rho(D) Type Rh positive 03/12/24 12:53 Antibody Screen Negative 03/12/24 12:53 Crossmatch See Detail 03/12/24 12:53 No radiology studies performed this visit Discharge Plan Discharge Patient Disposition: Xfer Short-Term Hosp Clinical Impression: Leukemia Qualifiers: Leukemia type: unspecified Leukemia Active/Remission status: without remission Qualified Code(s): C95.90 - Leukemia, unspecified not having achieved remission Condition: Stable Coding Level of Care Code ED Insole Channeler for Marcelo Driscoll
[2024-03-12 11:37] LABS: Mean Corpuscular Hemoglobin 29.7 pg (27-33); Mean Platelet Volume 9.6 fL (7.4-10.4); Platelet Count 64 10^3/cmm (157-399); Red Blood Count 2.02 10^6/uL (3.85-5.65); Red Cell Distribution Width 21.1 % (12.1-15.1)
[2024-03-12] MEDS: sodium chloride 0.9% 1,000 ML 999 ML IV (11:38)
[2024-03-12] MEDS: oxymetazoline 0.05% Nasal Spray 15 mL 2 SPRAY NOSTRIL-L (11:38)
[2024-03-12 11:54] LABS: White Blood Count 66.82 10^3/uL (3.29-11.43)
[2024-03-12 11:55] LABS: Alanine Aminotransferase 49 U/L (0-41); Albumin Level 3.2 g/dL (3.5-5.2); Alkaline Phosphatase 966 U/L (40-130); Aspartate Amino Transferase 160 U/L (0-40); Blood Urea Nitrogen 7 mg/dL (6-20); Calcium 9.2 mg/dL (8.5-10.5); Carbon Dioxide 24 mmol/L (22-29); Chloride 86 mmol/L (98-107); Creatinine Clr Calc Pharmacy 194.6513; Globulin 2.8 g/dL (1.3-4.6); Glomerular Filtration Rate 164.2 mL/min (90-130); Glucose 67 mg/dL (65-115); Osmolality Calculated 266 mOsm/kg (285-295); Sodium 130 mmol/L (136-145); Total Bilirubin 1.7 mg/dL (0.15-1.2)
[2024-03-12 12:03] LABS: Slide Review Slide Review Perform
[2024-03-12 12:04] LABS: Absolute Segmented Neutrophil 17.4 10/cmm (1.6-7.1); Segmented Neutrophils 26 %; Total Cells Counted 100 (0-100)
[2024-03-12 12:05] LABS: Absolute Neutrophil 19.4 10^3/cmm (1.4-6.5); Anisocytosis 2+; Corrected White Blood Count 57.6 10^3/cmm (4.8-10.8); Eosinophils 0 %; Giant Platelets Trace; Lymphocytes 56 %; Lymphocytes Absolute 38.8 10^3/cmm (1.2-3.4); Macrocytosis 2+; Monocytes Absolute 2.7 10^3/cmm (0.1-0.6); Platelet Estimate Decreased (Normal); Polychromasia 1+
[2024-03-12 12:06] LABS: INR 1.23 (0.8-1.2); Partial Thromboplastin Time 31.5 SECONDS (23.9-36.7)
--- NOTE | 2024-03-12 12:08 | XR_ITS ---
WS: [id number] Exam: XR chest 1V portable [id number] Date/Time of Exam: 03/12/2024 12:19 PM Reason For Exam: abnormal labs Comparison 01/25/2024. Findings: The lungs are clear and fully expanded. Costophrenic angles are sharp. No infiltrates. Bronchovascula r relief appears normal. Cardiac silhouette is unremarkable. Bony elements are intact. XR/XR chest 1V portable [id number] IMPRESSION: Unremarkable chest radiograph.
[2024-03-12 12:16] VITALS: BP 141/84; PULSE 111; RESP 16; O2SAT 100
[2024-03-12 13:10] LABS: Basophils # 0.2 10^3/uL (0.0-0.1); Basophils % 0.4 %; Lymphocytes # 27.7 10^3/uL (0.8-4.8); Lymphocytes % 51.9 %; Mean Corpuscular HGB Conc 29.9 g/dL (30-55); Mean Corpuscular Hemoglobin 30.3 pg (27-33); Mean Corpuscular Volume 101.1 fl (82-101); Mean Platelet Volume 11.3 fL (7.4-10.4); Monocytes # 16.1 10^3/uL (0.2-0.9); Monocytes % 30.1 %; Neutrophils # 7.17 10^3/uL (1.8-7.7); Neutrophils % 13.3 %; Nucleated Red Blood Cells # 2.7 /100WBC; Platelet Count 59 10^3/cmm (157-399); Red Blood Count 1.85 10^6/uL (3.85-5.65); Red Cell Distribution Width 20.8 % (12.1-15.1)
[2024-03-12 13:22] LABS: Protein Urine 1+ (Negative); Specific Gravity, Urine 1.015 (1.005-1.030); Urine Appearance Slightly Cloudy (CLEAR); Urine Color Yellow (Yellow); pH Urine 5 (5-7)
[2024-03-12 13:23] VITALS: BP 140/85; PULSE 110; RESP 18; O2SAT 97
[2024-03-12 13:23] LABS: Bilirubin Urine 1+ (Negative); Blood Urine 2+ (Negative); Glucose Urine UA Norm (Normal); Ketones Urine 1+ (Negative); Nitrate Urine Negative (Negative); Urobilinogen Urine 4 mg/dL (Negative)
[2024-03-12 13:30] LABS: Add Urine Microscopic? YES; Leukocyte Esterase Urine Trace (Negative)
[2024-03-12 13:31] LABS: Alanine Aminotransferase 45 U/L (0-41); Albumin Level 2.9 g/dL (3.5-5.2); Alkaline Phosphatase 857 U/L (40-130); Aspartate Amino Transferase 143 U/L (0-40); Blood Urea Nitrogen 7 mg/dL (6-20); Calcium 8.3 mg/dL (8.5-10.5); Carbon Dioxide 23 mmol/L (22-29); Chloride 88 mmol/L (98-107); Creatinine Clr Calc Pharmacy 194.6513; Globulin 2.4 g/dL (1.3-4.6); Glomerular Filtration Rate 164.2 mL/min (90-130); Glucose 68 mg/dL (65-115); Osmolality Calculated 264 mOsm/kg (285-295); Sodium 129 mmol/L (136-145); Total Bilirubin 1.6 mg/dL (0.15-1.2); Total Protein 5.3 g/dL (6.6-8.7)
[2024-03-12 13:32] LABS: Uric Acid 8.1 mg/dL (3.4-7.0)
[2024-03-12 13:36] LABS: Lactic Sepsis W/Reflex 6.3 mmol/L (0.5-2.2)
[2024-03-12 13:38] LABS: Amorphous Sediment Urine TRACE /hpf; Bacteria Urine TRACE /hpf; Mucus Urine 2+ /hpf; RBC Urine 0-4 /hpf (0-2); Renal Epithelial Cells Urine 0-4 /hpf; Squamous Epithelial Cell Urine 0-4 /hpf (0-5); Transitional Epi Cells Urine 0-4 /hpf
[2024-03-12 13:39] LABS: Fine Granular Casts Urine 0-4 /lpf; Hyaline Casts Urine 15-25 /lpf; Other Casts Urine BROAD AND WAXY 0-4 /lpf
[2024-03-12 13:40] LABS: Add Urine Culture? No
[2024-03-12 13:49] LABS: Hematocrit 18.7 % (37-53); White Blood Count 53.46 10^3/uL (3.29-11.43)
[2024-03-12 13:50] LABS: Slide Review Slide Review Perform
[2024-03-12 13:58] LABS: Lactate Dehydrogenase 8583 U/L (135-225)
[2024-03-12 14:00] VITALS: BP 144/84; PULSE 112; RESP 22; O2SAT 97
--- NOTE | 2024-03-12 14:00 | PC.NURSE ---
Pt's sister reports that there were bed bugs in the place pt was staying prior to him coming to live with her. Have not seen any bed bugs on pt.
[2024-03-12] MEDS: sodium chloride 0.9% 1,000 ML 125 ML IV (14:14)
[2024-03-12] MEDS: allopurinol 300 mg Tablet PO (14:16)
[2024-03-12 14:46] LABS: Reflex Lactate Order REFLEX LACTIC ORDERD
[2024-03-12 15:00] VITALS: BP 145/86; PULSE 113; RESP 20; O2SAT 99
[2024-03-12 15:52] VITALS: BP 143/78; PULSE 115; RESP 16; O2SAT 98
[2024-03-13 13:15] LABS: Lyme AB Screen <0.90 index
[2024-03-17 16:39] LABS: E. Chaffeensis AB IGG <1:64; E. Chaffeensis AB IGM <1:20
== END 2024-03-12 15:53 | disposition short-term general hospital (02) ==
PROVIDERS: Hospitalist; Emergency Provider Physician Assistant
DX: C95.90 Leukemia, unspecified not having achieved remission (principal)
CPT/HCPCS: 36415; 71045; 80053; 81001; 83605; 83615; 84550; 85007; 85025; 85610; 85730; 86618; 86666; 86757; 86850; 86900; 86920; 87040; 96360; 99285; J7030

== ENCOUNTER 2024-04-23 11:07 | Outpatient (CLI) | payer MEDICAID, SELFPAY ==
[2024-04-23 11:44] LABS: Eosinophils # 0.2 10^3/uL (0.0-0.8); Eosinophils % 21.9 %; Hematocrit 22.9 % (37-53); Lymphocytes # 0.3 10^3/uL (0.8-4.8); Lymphocytes % 34.4 %; Mean Corpuscular HGB Conc 32.3 g/dL (30-55); Mean Corpuscular Hemoglobin 30.3 pg (27-33); Mean Corpuscular Volume 93.9 fl (82-101); Mean Platelet Volume 10.8 fL (7.4-10.4); Monocytes # 0.3 10^3/uL (0.2-0.9); Monocytes % 34.4 %; Neutrophils % 9.3 %; Nucleated Red Blood Cells % 0 %; Platelet Count 148 10^3/cmm (157-399); Red Blood Count 2.44 10^6/uL (3.85-5.65); Red Cell Distribution Width 15.6 % (12.1-15.1); White Blood Count 0.96 10^3/uL (3.29-11.43)
[2024-04-23 12:00] LABS: Alanine Aminotransferase 43 U/L (0-41); Albumin Level 4.3 g/dL (3.5-5.2); Alkaline Phosphatase 248 U/L (40-130); Aspartate Amino Transferase 17 U/L (0-40); Blood Urea Nitrogen 4 mg/dL (6-20); Calcium 9.5 mg/dL (8.5-10.5); Carbon Dioxide 23 mmol/L (22-29); Chloride 98 mmol/L (98-107); Globulin 2.6 g/dL (1.3-4.6); Glomerular Filtration Rate 202.6 mL/min (90-130); Glucose 115 mg/dL (65-115); Osmolality Calculated 280 mOsm/kg (285-295); Sodium 136 mmol/L (136-145); Total Bilirubin 0.8 mg/dL (0.15-1.2); Total Protein 6.9 g/dL (6.6-8.7)
[2024-04-23 12:28] LABS: Neutrophils # 0.09 10^3/uL (1.8-7.7); Slide Review Slide Review Perform
== END 2024-04-23 11:08 | disposition home or self-care (01) ==
LOC: LAB 11:15
DX: C91.00 Acute lymphoblastic leukemia not having achieved remission (principal)
CPT/HCPCS: 36415; 80053; 85025

== ENCOUNTER 2024-04-25 16:33 | Emergency (ER) | payer MEDICAID, SELFPAY ==
[2024-04-25 16:36] VITALS: BP 117/77; PULSE 148; RESP 18; TEMP 39.2; O2SAT 98
[2024-04-25 16:54] VITALS: BP 121/86; PULSE 136; RESP 16; O2SAT 97
--- NOTE | 2024-04-25 17:09 | W.ED.DENTAL ---
HPI - Dental/Oral General: Chief complaint: Dental/Oral Stated complaint: Tooth pain/fever sent by PCP Time Seen by Provider: 04/25/24 16:54 History of Present Illness: 24-year-old man with a history of leukemia who is currently receiving treatment and had his last treatment a week ago. He had been admitted to the hospital at that time. He has been having dental issues. He developed a dental infection few days ago in his left upper posterior molars and now has swelling. He gone to see his primary and had fever and tachycardia so he was sent to the emergency room. He has been treated at [facility]. No cough. No dysuria. No altered mental status. No focal motor deficits. He had been on Omnicef already for I am assuming preventative coverage. Was started on an oral antibiotic today but they do not know what that was and have not picked it up yet when they saw the doctor they sent him to the emergency room. Review of Systems Narrative: Constitutional symptoms: Negative except as documented in HPI. Skin symptoms: Negative except as documented in HPI. Eye symptoms: Negative except as documented in HPI. ENMT symptoms: Negative except as documented in HPI. Respiratory symptoms: Negative except as documented in HPI. Cardiovascular symptoms: Negative except as documented in HPI. Gastrointestinal symptoms: Negative except as documented in HPI. Genitourinary symptoms: Negative except as documented in HPI. Musculoskeletal symptoms: Negative except as documented in HPI. Neurologic symptoms: Negative except as documented in HPI. Psychiatric symptoms: Negative except as documented in HPI. Endocrine symptoms: Negative except as documented in HPI. [facility] ED PFSH: Social History Smoking and tobacco/nicotine status: unknown if used tobacco/nicotine Physical Exam Narrative: EXAM NARRATIVE: General: Alert, no acute distress. Skin: Warm, dry. Head: Normocephalic, atraumatic. Neck: Supple, trachea midline. Eye: Extraocular movements are intact. Ears, nose, mouth and throat: mucosa moist. Cardiovascular: Regular, tachycardic, normal peripheral perfusion. Respiratory: Lungs are clear to auscultation, respirations are non-labored, breath sounds are equal, Symmetrical chest wall expansion. Gastrointestinal: Soft, Nontender, Non distended Musculoskeletal: Normal ROM, no deformity. Neurological: Alert and oriented, No focal neurological deficit observed. Psychiatric: Cooperative, appropriate mood & affect. Course Vital Signs: Vital signs: Vital Signs Temperature 102.5 F H 04/25/24 16:36 Pulse Rate 109 H 04/25/24 19:00 Respiratory Rate 16 04/25/24 19:00 Blood Pressure 119/76 04/25/24 19:00 Pulse Oximetry 100 04/25/24 19:00 Oxygen Delivery Me thod Room Air 04/25/24 19:00 MDM - Dental/Oral Medical Decision Making Medical decision making: Differential diagnosis including but not limited to and based on the above HPI, review of systems and physical exam: In this patient with fever and current treatment for leukemia I am concerned for sepsis. Source may be a dental, but chest x-ray and urine were ordered to rule out infection there. Blood cultures were ordered. Orders placed to evaluate differential diagnosis based on the above differential, HPI and physical exam EKG: Time 1722. Rate 118. Sinus tachycardia, No ST-T changes, no ectopy, normal AR & QRS intervals, This was reviewed and interpreted by myself the ER physician at 1725 Chest x-ray: No acute process. No infiltrate. No pneumothorax. This was reviewed and interpreted by myself the ER physician. Lab Review: Laboratory results were reviewed and interpreted by myself the emergency room physician. Patient remains neutropenic. He has a white count now of 6.9 but an ANC of around 450. Slightly worsening anemia with a hemoglobin of 7.2. Platelets are elevated at 877. BUN and creatinine are 7 and 0.6. Lactate is 1.2. Procalcitonin is 0.22. CRP is 112. Blood cultures were ordered. And drawn. CT of the facial bones with contrast: There are multiple dental abnormalities that would indicate some infection but there is not a large abscess. This was reviewed and interpreted by myself the emergency room physician. I also reviewed the radiology report. I reviewed the patient's medical record. Reexamination: Patient remains fairly stable. Heart rate has come down with fluids. He has no altered mental status. No focal motor deficits. No increased work of breathing at this time. Discussed with him and family transfer and they prefer to be transferred. Consultation: I spoke with Dr. York at [facility] who is an oncologist is on-call for his service and has taken care of him in the past. He recommends transfer. He agrees with care so far with fluids and broad-spectrum antibiotics for possible sepsis. He has accepted the patient to the oncology floor. Assessment and plan: Neutropenic fever. Sepsis Dental infection Immunocompromise patient Leukemia Currently receiving chemotherapy Patient accepted to [facility] by Dr. York. -2.5 L normal saline bolus. Fluid volumes based on ideal body weight. -Broad-spectrum antibiotics were administered. Patient was on Omnicef already. I am giving meropenem and Zyvox initially as when he first arrived I did not have a definitive source. -Sepsis quality measures. -Lactic acid with a reflex was ordered. -Blood cultures were ordered. -I discussed the patient with the hospitalist on-call who is admitting the patient. - Discussed findings and plan with patient. Answered any questions. - All laboratory values were reviewed and interpreted personally by myself, the ER physician - All imaging was reviewed and interpreted personally by myself, the ER physician. - Evaluation and treatment of this problem were appropriate in the emergency setting Critical care: -I spent a total of >75 minutes of critical care time managing the patient, independent of any other practitioner. -The time involved in the performance of separately reportable procedures was not counted towards critical care time. Lab Data 04/25/24 17:14 04/25/24 17:14 Radiology Impressions Chest X-Ray 04/25/24 17:55 IMPRESSION: No acute findings. Face CT 04/25/24 18:08 IMPRESSION: 1. Severe multifocal dental disease with multiple periapical cysts, predominantly affecting the maxilla. 2. Questionable 14 mm fluid collection surrounding the nasal spine related to adjacent periapical cysts. 3. Moderate to marked left maxillary mucosal disease which appears to be odontogenic in origin. Laboratory Results WBC 6.95 10^3/uL (3.29-11.43) 04/25/24 17:14 RBC 2.32 10^6/uL (3.85-5.65) L 04/25/24 17:14 Hgb 7.20 g/dL (11.27-16.99) L 04/25/24 17:14 Hct 21.6 % (37-53) L 04/25/24 17:14 MCV 93.1 fl (82-101) 04/25/24 17:14 MCH 31.0 pg (27-33) 04/25/24 17:14 MCHC 33.3 g/dL (30-55) 04/25/24 17:14 RDW 16.5 % (12.1-15.1) H 04/25/24 17:14 Plt Count 877 10^3/cmm (157-399) H 04/25/24 17:14 MPV 9.6 fL (7.4-10.4) 04/25/24 17:14 Lymph % (Auto) Not Reportable 04/25/24 17:14 [place] % (Auto) Not Reportable 04/25/24 17:14 Neut # (Auto) Patternmaker All Around 04/25/24 17:14 Lymph # (Auto) Not Reportable 04/25/24 17:14 [place] # (Auto) Not Reportable 04/25/24 17:14 Total Counted 100 (0-100) 04/25/24 17:14 Atypical Lymphs % 2.0 % (0-5) 04/25/24 17:14 Absolute Neutrophils 0.5 10^3/cmm (1.4-6.5) L* 04/25/24 17:14 Segmented Neutrophils 5 % 04/25/24 17:14 Abs Segm Neuts (Man) 0.3 10/cmm (1.6-7.1) L 04/25/24 17:14 Band Neutrophils 2.0 % 04/25/24 17:14 Abs Band Neuts (Man) 0.1 10^3/cmm (0.0-1.2) 04/25/24 17:14 Absolute Lymphocytes 1.0 10^3/cmm (1.2-3.4) L 04/25/24 17:14 Lymphocytes (Manual) 13 % 04/25/24 17:14 Monocytes (Manual) 63.0 % 04/25/24 17:14 Absolute Monocytes 4.4 10^3/cmm (0.1-0.6) H 04/25/24 17:14 Eosinophils (Manual) 1 % 04/25/24 17:14 Absolute Eosinophils 0.1 10^3/cmm (0.0-0.7) 04/25/24 17:14 Basophils (Manual) 0.0 % 04/25/24 17:14 Absolute Basophils 0.0 10^3/cmm (0.0-0.2) 04/25/24 17:14 Metamyelocytes 6.0 % 04/25/24 17:14 Myelocytes 5.0 % 04/25/24 17:14 Promyelocytes 3.0 % 04/25/24 17:14 Platelet Estimate Increased (Normal) 04/25/24 17:14 Giant Platelets Trace 04/25/24 17:14 Polychromasia Trace 04/25/24 17:14 Anisocytosis Trace 04/25/24 17:14 ESR 12 mm/hr (0-10) H 04/25/24 17:14 Sodium 132 mmol/L (136-145) L 04/25/24 17:14 Potassium 3.6 mmol/L (3.5-5.1) 04/25/24 17:14 Chloride 94 mmol/L (98-107) L 04/25/24 17:14 Carbon Dioxide 26 mmol/L (22-29) 04/25/24 17:14 Anion Gap 15.6 (5-19) 04/25/24 17:14 BUN 7 mg/dL (6-20) 04/25/24 17:14 Creatinine 0.6 mg/dL (0.7-1.2) L 04/25/24 17:14 GFR Calculation 164.2 mL/min (90-130) H 04/25/24 17:14 Glucose 129 mg/dL (65-115) H 04/25/24 17:14 Calculated Osmolality 274 mOsm/kg (285-295) L 04/25/24 17:14 Lactic Acid 1.7 mmol/L (0.5-2.2) 04/25/24 17:14 Calcium 9.4 mg/dL (8.5-10.5) 04/25/24 17:14 Total Bilirubin 0.5 mg/dL (0.15-1.2) 04/25/24 17:14 AST 17 U/L (0-40) 04/25/24 17:14 ALT 23 U/L (0-41) 04/25/24 17:14 Alkaline Phosphatase 213 U/L (40-130) H 04/25/24 17:14 C-Reactive Protein 111.9 mg/L (0.0-4.9) H 04/25/24 17:14 Total Protein 6.9 g/dL (6.6-8.7) 04/25/24 17:14 Albumin 4.3 g/dL (3.5-5.2) 04/25/24 17:14 Globulin 2.6 g/dL (1.3-4.6) 04/25/24 17:14 Procalcitonin 0.22 ng/mL (0-0.5) 04/25/24 17:14 Urine Color Yellow (Yellow) 04/25/24 18:11 Urine Appearance Clear (CLEAR) 04/25/24 18:11 Urine pH 6.5 (5-7) 04/25/24 18:11 Ur Specific [place] 1.007 (1.005-1.030) 04/25/24 18:11 Urine Protein 1+ (Negative) A 04/25/24 18:11 Urine Glucose (UA) Negative (Normal) 04/25/24 18:11 Urine Ketones Negative (Negative) 04/25/24 18:11 Urine Blood Negative (Negative) 04/25/24 18:11 Urine Nitrate Negative (Negative) 04/25/24 18:11 Urine Bilirubin Negative (Negative) 04/25/24 18:11 Urine Urobilinogen 1.0 mg/dL (Negative) 04/25/24 18:11 Ur Leukocyte Esterase Negative (Negative) 04/25/24 18:11 Urine RBC 0-2 /hpf (0-2) 04/25/24 18:11 Urine WBC 0-5 /hpf (0-5) 04/25/24 18:11 Ur Squamous Epith Cells 0-5 /hpf (0-5) 04/25/24 18:11 Amorphous Sediment Not Reportable 04/25/24 18:11 Urine Bacteria None seen /hpf (NONE) 04/25/24 18:11 Hyaline Casts 0.81 /lpf 04/25/24 18:11 All radiology interpretation(s) finalized by discharge Discharge Plan Discharge Patient Disposition: Xfer Short-Term Hosp Clinical Impression: Sepsis, Dental infection, Neutropenia, Immunocompromised patient, Fever and neutropenia, Leukemia, Chemotherapy induced neutropenia Condition: Stable Discharge Orders: Transfer Out of Facility (Order); Ordered 04/25/24 Ordered By: Candace Velez Coding Level of Care Code ED Co Founder And Cto for Marcelo Driscoll
--- NOTE | 2024-04-25 17:12 | ECG_ITS ---
Test Date: 2024-04-25 Pat Name: Javed Do Department: Room: Gender: Male Artist Scientific: : 2000 Requested By: Candace Montero Order Number: [id number] Murcia MD: Abdelrahman Mcpherson M.D. Measurements Intervals [place] Rate: 118 P: 50 KS: 138 QRS: 55 QRSD: 89 T: 41 QT: 313 QTc: 440 Interpretive Statements SINUS TACHYCARDIA Compared to ECG 01/25/2024 13:56:40 Sinus rhythm no longer present Electronically Signed On 04-26-2024 11:56:37 CDT by Abdelrahman Mcpherson M.D. [id number]
[2024-04-25 17:31] LABS: Hematocrit 21.6 % (37-53); Mean Corpuscular HGB Conc 33.3 g/dL (30-55); Mean Corpuscular Volume 93.1 fl (82-101); Mean Platelet Volume 9.6 fL (7.4-10.4); Platelet Count 877 10^3/cmm (157-399); Red Blood Count 2.32 10^6/uL (3.85-5.65); Red Cell Distribution Width 16.5 % (12.1-15.1); White Blood Count 6.95 10^3/uL (3.29-11.43)
[2024-04-25 17:34] VITALS: BP 117/75; PULSE 120; RESP 18; O2SAT 96
[2024-04-25 17:43] LABS: Erythrocyte Sedimentation Rate 12 mm/hr (0-10)
[2024-04-25] MEDS: linezolid premix 600 MG/300 ML PREMIX 300 MG IV (17:43)
[2024-04-25] MEDS: sodium chloride 0.9% 1,000 ML 999 ML IV (17:44)
[2024-04-25] MEDS: meropenem 500 mg SDV IVP (17:44)
[2024-04-25 17:49] LABS: Alanine Aminotransferase 23 U/L (0-41); Albumin Level 4.3 g/dL (3.5-5.2); Alkaline Phosphatase 213 U/L (40-130); Anion Gap 15.6 (5-19); Aspartate Amino Transferase 17 U/L (0-40); Blood Urea Nitrogen 7 mg/dL (6-20); C Reactive Protein 111.9 mg/L (0.0-4.9); Calcium 9.4 mg/dL (8.5-10.5); Carbon Dioxide 26 mmol/L (22-29); Chloride 94 mmol/L (98-107); Creatinine Clr Calc Pharmacy 197.8426; Globulin 2.6 g/dL (1.3-4.6); Glomerular Filtration Rate 164.2 mL/min (90-130); Glucose 129 mg/dL (65-115); Osmolality Calculated 274 mOsm/kg (285-295); Potassium 3.6 mmol/L (3.5-5.1); Sodium 132 mmol/L (136-145); Total Bilirubin 0.5 mg/dL (0.15-1.2); Total Protein 6.9 g/dL (6.6-8.7)
[2024-04-25 17:50] LABS: Lactic Sepsis W/Reflex 1.7 mmol/L (0.5-2.2)
[2024-04-25 17:55] LABS: Procalcitonin 0.22 ng/mL (0-0.5)
--- NOTE | 2024-04-25 17:55 | XRR_ITS ---
PROCEDURE INFORMATION: Exam: XR Chest Exam date and time: 04/25/2024 5:57 PM Age: 24 years old Clinical indication: Fever and shortness of breath and other: Infected tooth; Additional info: Fever, sepsis, neutropenia TECHNIQUE: Imaging protocol: Radiologic exam of the chest. Views: 1 view. COMPARISON: CR XR chest 1V portable [id number] 03/12/2024 12:22 PM FINDINGS: Lungs: Unremarkable. No consolidation. Pleural spaces: Unremarkable. No pleural effusion. No pneumothorax. Heart/Mediastinum: Unremarkable. No cardiomegaly. Bones/joints: Unremarkable. XR/XR chest 1V portable [id number] IMPRESSION: No acute findings.
[2024-04-25 18:02] LABS: Absolute Eosinophils 0.1 10^3/cmm (0.0-0.7); Absolute Segmented Neutrophil 0.3 10/cmm (1.6-7.1); Band Neutrophils Absolute 0.1 10^3/cmm (0.0-1.2); Eosinophils 1 %; Lymphocytes 13 %; Monocytes Absolute 4.4 10^3/cmm (0.1-0.6); Platelet Estimate Increased (Normal); Segmented Neutrophils 5 %; Slide Review Slide Review Perform; Total Cells Counted 100 (0-100)
[2024-04-25 18:03] LABS: Absolute Neutrophil 0.5 10^3/cmm (1.4-6.5); Anisocytosis Trace; Giant Platelets Trace; Polychromasia Trace
--- NOTE | 2024-04-25 18:08 | CTR_ITS ---
PROCEDURE INFORMATION: Exam: CT Maxillofacial With Contrast Exam date and time: 04/25/2024 6:24 PM Age: 24 years old Clinical indication: Mass, lump, or swelling; Mouth; Additional info: Sepsis, left upper dental infection, neutropenia TECHNIQUE: Imaging protocol: Computed tomography of the face with contrast. Radiation optimization: All CT scans at this facility use at least one of these dose optimization techniques: automated exposure control; mA and/or kV adjustment per patient size (includes targeted exams where dose is matched to clinical indication); or iterative reconstruction. Contrast material: OMNI 350; Contrast volume: 100 ml; Contrast route: INTRAVENOUS (IV); COMPARISON: No relevant prior studies available. RADIATION DOSE METRICS: Total DLP (mGy-cm): 601 FINDINGS: Orbital cavities: Orbits are normal. Globes are unremarkable. Paranasal sinuses: Moderate to marked left maxillary mucosal disease which appears to be odontogenic in origin. Minimal right maxillary mucosal disease. The paranasal sinuses are otherwise clear. Lymph nodes: Multiple enlarged upper cervical lymph nodes, likely reactive in nature. Bones: Severe multifocal dental disease with multiple periapical cysts, predominantly affecting the maxilla. Questionable 14 mm fluid collection surrounding the nasal spine related to adjacent periapical cysts. Soft tissues: Diffuse soft tissue thickening of the upper and possibly lower lips. CT/CT facial bones w con [id number] IMPRESSION: 1. Severe multifocal dental disease with multiple periapical cysts, predominantly affecting the maxilla. 2. Questionable 14 mm fluid collection surrounding the nasal spine related to adjacent periapical cysts. 3. Moderate to marked left maxillary mucosal disease which appears to be odontogenic in origin.
[2024-04-25 18:23] LABS: Bilirubin Urine Negative (Negative); Blood Urine Negative (Negative); Glucose Urine UA Negative (Normal); Ketones Urine Negative (Negative); Leukocyte Esterase Urine Negative (Negative); Nitrate Urine Negative (Negative); Protein Urine 1+ (Negative); Specific Gravity, Urine 1.007 (1.005-1.030); Urine Appearance Clear (CLEAR); Urine Color Yellow (Yellow); pH Urine 6.5 (5-7)
[2024-04-25 18:28] LABS: Bacteria Urine None Seen /hpf; Hyaline Casts Urine 0.81 /lpf; RBC Urine 0-2 /hpf (0-2); Squamous Epithelial Cell Urine 0-5 /hpf (0-5); WBC Urine 0-5 /hpf (0-5)
[2024-04-25] MEDS: iohexol 350 mg/mL 500 mL Btl (per mL) IV (18:28)
[2024-04-25] MEDS: ibuprofen 800 mg tablet PO (18:34)
[2024-04-25 18:47] VITALS: BP 140/85; PULSE 107; RESP 16; O2SAT 99
[2024-04-25 19:00] VITALS: BP 119/76; PULSE 109; RESP 16; O2SAT 100
[2024-04-25] MEDS: sodium chloride 0.9% 500 ML 999 ML IV (19:46)
[2024-04-25] MEDS: sodium chloride 0.9% 1,000 ML 100 ML IV (20:03)
[2024-04-25 20:41] VITALS: BP 126/77; PULSE 103; RESP 16; TEMP 39.2; O2SAT 100
== END 2024-04-25 20:42 | disposition short-term general hospital (02) ==
PROVIDERS: Emergency Provider Emergency Medicine
DX: A41.9 Sepsis, unspecified organism (principal); D70.1 Agranulocytosis secondary to cancer chemotherapy; T45.1X5A Adverse effect of antineoplastic and immunosuppressive drugs, initial encounter; C95.90 Leukemia, unspecified not having achieved remission; D84.9 Immunodeficiency, unspecified; R00.0 Tachycardia, unspecified
CPT/HCPCS: 36415; 70487; 71045; 80053; 81001; 83605; 84145; 85007; 85025; 85651; 86140; 87040; 93005; 96365; 96366; 96375; 99285; 99291; J2020; J2185; J7030; J7040; Q9967

== ENCOUNTER 2024-05-16 11:09 | Outpatient (CLI) | payer MEDICAID, SELFPAY ==
[2024-05-16 11:55] LABS: Eosinophils % 1.1 %; Hematocrit 27.2 % (37-53); Lymphocytes # 0.3 10^3/uL (0.8-4.8); Lymphocytes % 17.1 %; Mean Corpuscular HGB Conc 32.7 g/dL (30-55); Mean Corpuscular Hemoglobin 30.8 pg (27-33); Mean Corpuscular Volume 94.1 fl (82-101); Mean Platelet Volume 9.7 fL (7.4-10.4); Monocytes # 0.4 10^3/uL (0.2-0.9); Monocytes % 21.4 %; Neutrophils # 1.12 10^3/uL (1.8-7.7); Neutrophils % 59.9 %; Nucleated Red Blood Cells % 0 %; Platelet Count 129 10^3/cmm (157-399); Red Blood Count 2.89 10^6/uL (3.85-5.65); Red Cell Distribution Width 18.1 % (12.1-15.1); White Blood Count 1.87 10^3/uL (3.29-11.43)
[2024-05-16 12:15] LABS: Alanine Aminotransferase 50 U/L (0-41); Albumin Level 4.3 g/dL (3.5-5.2); Alkaline Phosphatase 88 U/L (40-130); Anion Gap 19.2 (5-19); Aspartate Amino Transferase 26 U/L (0-40); Blood Urea Nitrogen 11 mg/dL (6-20); Calcium 9.1 mg/dL (8.5-10.5); Carbon Dioxide 26 mmol/L (22-29); Chloride 94 mmol/L (98-107); Glomerular Filtration Rate 164.2 mL/min (90-130); Glucose 85 mg/dL (65-115); Osmolality Calculated 279 mOsm/kg (285-295); Potassium 4.2 mmol/L (3.5-5.1); Sodium 135 mmol/L (136-145); Total Protein 6.3 g/dL (6.6-8.7)
[2024-05-16 12:33] LABS: Slide Review Slide Review Perform
== END 2024-05-16 11:10 | disposition home or self-care (01) ==
LOC: LAB 11:14
DX: C91.00 Acute lymphoblastic leukemia not having achieved remission (principal)
CPT/HCPCS: 80053; 85025

== ENCOUNTER 2024-06-07 13:28 | Outpatient (CLI) | payer MEDICAID, SELFPAY ==
[2024-06-07 14:00] LABS: Basophils % 2.7 %; Eosinophils # 0.1 10^3/uL (0.0-0.8); Eosinophils % 13.5 %; Hematocrit 24.9 % (37-53); Lymphocytes # 0.3 10^3/uL (0.8-4.8); Lymphocytes % 81.1 %; Mean Corpuscular HGB Conc 32.1 g/dL (30-55); Mean Corpuscular Volume 90.2 fl (82-101); Mean Platelet Volume 8.6 fL (7.4-10.4); Monocytes % 2.7 %; Nucleated Red Blood Cells % 0 %; Red Blood Count 2.76 10^6/uL (3.85-5.65); Red Cell Distribution Width 16.9 % (12.1-15.1)
[2024-06-07 14:14] LABS: Alanine Aminotransferase 32 U/L (0-41); Albumin Level 4.2 g/dL (3.5-5.2); Alkaline Phosphatase 133 U/L (40-130); Anion Gap 16.8 (5-19); Aspartate Amino Transferase 12 U/L (0-40); Blood Urea Nitrogen 8 mg/dL (6-20); Calcium 9.5 mg/dL (8.5-10.5); Carbon Dioxide 25 mmol/L (22-29); Chloride 98 mmol/L (98-107); Glomerular Filtration Rate 262.1 mL/min (90-130); Glucose 88 mg/dL (65-115); Osmolality Calculated 280 mOsm/kg (285-295); Potassium 3.8 mmol/L (3.5-5.1); Sodium 136 mmol/L (136-145); Total Bilirubin 0.4 mg/dL (0.15-1.2); Total Protein 6.2 g/dL (6.6-8.7)
[2024-06-07 14:30] LABS: Platelet Count 18 10^3/cmm (157-399); Slide Review Slide Review Perform; White Blood Count 0.37 10^3/uL (3.29-11.43)
== END 2024-06-07 13:29 | disposition home or self-care (01) ==
LOC: LAB 13:32
DX: C91.00 Acute lymphoblastic leukemia not having achieved remission (principal)
CPT/HCPCS: 80053; 85025

== ENCOUNTER 2024-06-09 21:54 | Inpatient (IN) | payer MEDICAID, SELFPAY ==
--- NOTE | 2024-06-09 21:57 | XRR_ITS ---
PROCEDURE INFORMATION: Exam: XR Chest Exam date and time: 06/09/2024 10:09 PM Age: 24 years old Clinical indication: Patient HX: C/O fever starting today. Currently on chemotherapy for leukemia TECHNIQUE: Imaging protocol: Radiologic exam of the chest. Views: 1 view. COMPARISON: CR (CHEST, ) 04/25/2024 5:57 PM FINDINGS: Lungs: Unremarkable. No consolidation. Pleural spaces: Unremarkable. No pleural effusion. No pneumothorax. Heart/Mediastinum: Unremarkable. No cardiomegaly. Bones/joints: Unremarkable. XR/XR chest 1V portable [id number] IMPRESSION: No acute findings.
[2024-06-09 22:04] VITALS: BP 111/68; PULSE 134; RESP 18; TEMP 37.6; O2SAT 98
--- NOTE | 2024-06-09 22:18 | ED_ITS ---
HPI - Fever 2 General: Chief Complaint: Fever Stated Complaint: Cancer pt, Fever Time Seen by Provider: 06/09/24 21:58 Source: patient Mode of arrival: ambulatory Limitations: no limitations History of Present Illness: 24-year-old male has a history of leukem ia is currently on chemo he states he had blood work done on Monday he was told he is neutropenic and thrombocytopenic states that today he had a fever of 101. He does have a history of poor dentition. He denies any cough denies any vomiting he is concerned he may have a dental infection as he is on antibiotics currently for that. He denies any vomiting Associated symptoms: Reports chills; Deny abdominal pain, chest pain, diarrhea, dysuria, headache(s), nausea or vomiting Related Data Home Medications Medication Instructions Recorded Confirmed acyclovir 200 mg capsule 200 mg PO BID 04/25/24 04/25/24 cefdinir 300 mg capsule 300 mg PO BID 04/25/24 04/25/24 gabapentin 100 mg capsule 100 mg PO BID 04/25/24 04/25/24 morphine 15 mg tablet,extended 15 mg PO Q12H 04/25/24 04/25/24 release polyethylene glycol 3350 17 4 g PO DAILY 04/25/24 04/25/24 gram/dose oral powder sennosides 8.6 mg tablet 8.6 mg PO BID 04/25/24 04/25/24 Previous Rx's Medication Instructions Recorded clindamycin HCl 300 mg capsule 300 mg PO BID 7 days #14 caps 04/25/24 Allergies Allergy/AdvReac Type Severity Reaction Status Date / Time No Known Allergies Allergy Verified 06/09/24 22:08 Review of Systems 2 Const: Reports: chills; Denies: fever(s), body aches or change in appetite Eyes: Denies: blurry vision or eye discomfort ENMT: Reports: dental pain; Denies: throat pain Card: Denies: chest pain Resp: Denies: dyspnea GI: Denies: abdominal pain, nausea, vomiting or diarrhea : Denies: dysuria Musc: Denies: neck pain or back pain Skin/Breast: Denies: rash Neuro: Denies: headache(s) PFSH ED 2 PFSH: Social History Smoking and tobacco/nicotine status: unknown if used tobacco/nicotine Physical Exam 2 Const: COMMON NORMALS: no acute distress, patient oriented x3 and healthy appearing HENMT: COMMON NORMALS: normocephalic and atraumatic HEAD & SCALP: n ormocephalic and atraumatic OTHER: Poor dentition no abscess noted Eye: COMMON NORMALS: Equal, round and reactive pupils present and EOMs intact bilaterally PUPIL: Yes Equal, round and reactive pupils present Neck/C-Spine: COMMON NORMALS: full ROM and supple Chest: COMMONS NORMALS: normal inspection of the chest and normal palpation of entire chest wall Resp: COMMON NORMALS: normal respiratory effort, No retractions, No use of accessory muscles and clear to auscultation bilaterally AUSCULTATION: clear to auscultation bilaterally Cardio: COMMON NORMALS: regular rate, regular rhythm and No murmurs present (Cardio) RATE: regular rate RHYTHM: regular rhythm GI: COMMON NORMALS: Normal to inspection, nondistended, normoactive bowel sounds present, Soft to palpation, non-tender and no masses PALPATION: Yes Soft to palpation Extremity: COMMON NORMALS: normal to inspection and full ROM Neuro: COMMON NORMALS: patient oriented x3, moves all extremities and no focal motor deficits Psych: COMMON NORMALS: mental status grossly normal, Normal thought process present and cooperative THOUGHT PROCESS: Normal thought process present Skin: COMMON NORMALS: no rashes or lesions noted and no wounds GENERAL SKIN EXAM: no rashes or lesions noted Course 2 Vital Signs: Vital signs: Vital Signs Temperature 99.7 F H 06/09/24 22:04 Pulse Rate 104 H 06/10/24 00:28 Respiratory Rate 18 06/10/24 00:28 Blood Pressure 132/85 06/10/24 00:28 Pulse Oximetry 100 06/10/24 00:28 Oxygen Delivery Me thod Room Air 06/10/24 00:28 MDM - Fever Medical Decision Making Patient presents with a neutropenic fever he does have a dental infection with no signs of abscess I spoke to the oncology team at [facility] they did not recommend platelet transfusion at this time as he got below 10 I felt he is stable to be admitted here on IV antibiotics spoke to hospitalist will admit Medical Records I reviewed the patient's medical records. Lab Data I reviewed the patient's lab results. 06/09/24 22:15 06/09/24 22:15 Radiology Impressions Chest X-Ray 06/09/24 21:57 IMPRESSION: No acute findings. Neck CT 06/09/24 23:11 IMPRESSION: 1. Left-sided odontogenic cellulitis involving the soft tissues of the buccal and baseball player spaces. 2. No definitive walled-off fluid collection is appreciated, however a suspected phlegmon of a developing abscess is appreciated lateral to the left 1st molar. Laboratory Results WBC 2.33 10^3/uL (3.29-11.43) L 06/09/24 22:15 RBC 2.45 10^6/uL (3.85-5.65) L 06/09/24 22:15 Hgb 7.20 g/dL (11.27-16.99) L 06/09/24 22:15 Hct 22.7 % (37-53) L 06/09/24 22:15 MCV 92.7 fl (82-101) 06/09/24 22:15 MCH 29.4 pg (27-33) 06/09/24 22:15 MCHC 31.7 g/dL (30-55) 06/09/24 22:15 RDW 16.5 % (12.1-15.1) H 06/09/24 22:15 Plt Count 13 10^3/cmm (157-399) L* 06/09/24 22:15 MPV Not Reportable 06/09/24 22:15 Neut % (Auto) 37.8 % 06/09/24 22:15 Lymph % (Auto) 24.5 % 06/09/24 22:15 [place] % (Auto) 34.3 % 06/09/24 22:15 Eos % (Auto) 3.0 % 06/09/24 22:15 Baso % (Auto) 0.4 % 06/09/24 22:15 Neut # (Auto) 0.88 10^3/uL (1.8-7.7) L* 06/09/24 22:15 Lymph # (Auto) 0.6 10^3/uL (0.8-4.8) L 06/09/24 22:15 [place] # (Auto) 0.8 10^3/uL (0.2-0.9) 06/09/24 22:15 Eos # (Auto) 0.1 10^3/uL (0.0-0.8) 06/09/24 22:15 Baso # (Auto) 0.0 10^3/uL (0.0-0.1) 06/09/24 22:15 Nucleated RBC % (auto) 0 % 06/09/24 22:15 Nucleated RBCs # 0.0 /100WBC 06/09/24 22:15 Sodium 136 mmol/L (136-145) 06/09/24 22:15 Potassium 3.7 mmol/L (3.5-5.1) 06/09/24 22:15 Chloride 99 mmol/L (98-107) 06/09/24 22:15 Carbon Dioxide 26 mmol/L (22-29) 06/09/24 22:15 Anion Gap 14.7 (5-19) 06/09/24 22:15 BUN 9 mg/dL (6-20) 06/09/24 22:15 Creatinine 0.5 mg/dL (0.7-1.2) L 06/09/24 22:15 GFR Calculation 202.6 mL/min (90-130) H 06/09/24 22:15 Glucose 121 mg/dL (65-115) H 06/09/24 22:15 Calculated Osmolality 282 mOsm/kg (285-295) L 06/09/24 22:15 Lactic Acid 1.7 mmol/L (0.5-2.2) 06/09/24 22:15 Calcium 9.0 mg/dL (8.5-10.5) 06/09/24 22:15 Total Bilirubin 0.2 mg/dL (0.15-1.2) 06/09/24 22:15 AST 14 U/L (0-40) 06/09/24 22:15 ALT 22 U/L (0-41) 06/09/24 22:15 Alkaline Phosphatase 132 U/L (40-130) H 06/09/24 22:15 Total Protein 6.2 g/dL (6.6-8.7) L 06/09/24 22:15 Albumin 3.9 g/dL (3.5-5.2) 06/09/24 22:15 Globulin 2.3 g/dL (1.3-4.6) 06/09/24 22:15 Coronavirus (PCR) Negative (Negative) 06/09/24 23:30 Influenza A (PCR) Negative (Negative) 06/09/24 23:30 Influenza Type B (PCR) Negative (Negative) 06/09/24 23:30 RSV (PCR) Negative (Negative) 06/09/24 23:30 All radiology interpretation(s) finalized by discharge Discharge Plan Discharge Patient Disposition: Admitted As Inpatient Clinical Impression: Neutropenic fever, Dental infection Condition: Stable Prescriptions: No Action cefdinir 300 mg capsule 300 mg PO BID acyclovir 200 mg capsule 200 mg PO BID polyethylene glycol 3350 17 gram/dose powder 4 g PO DAILY sennosides 8.6 mg tablet 8.6 mg PO BID gabapentin 100 mg capsule 100 mg PO BID morphine 15 mg tablet extended release 15 mg PO Q12H clindamycin HCl 300 mg capsule 300 mg PO BID 7 Days Qty: 14 0RF Coding Level of Care Code ED Powder Room Attendant for Marcelo Driscoll
[2024-06-09 22:23] LABS: Basophils % 0.4 %; Eosinophils # 0.1 10^3/uL (0.0-0.8); Hematocrit 22.7 % (37-53); Lymphocytes # 0.6 10^3/uL (0.8-4.8); Lymphocytes % 24.5 %; Mean Corpuscular HGB Conc 31.7 g/dL (30-55); Mean Corpuscular Hemoglobin 29.4 pg (27-33); Mean Corpuscular Volume 92.7 fl (82-101); Monocytes # 0.8 10^3/uL (0.2-0.9); Monocytes % 34.3 %; Neutrophils % 37.8 %; Nucleated Red Blood Cells % 0 %; Red Blood Count 2.45 10^6/uL (3.85-5.65); Red Cell Distribution Width 16.5 % (12.1-15.1); White Blood Count 2.33 10^3/uL (3.29-11.43)
[2024-06-09 22:31] VITALS: BP 129/83; PULSE 116; RESP 18; O2SAT 98
[2024-06-09 22:38] LABS: Alanine Aminotransferase 22 U/L (0-41); Albumin Level 3.9 g/dL (3.5-5.2); Alkaline Phosphatase 132 U/L (40-130); Anion Gap 14.7 (5-19); Aspartate Amino Transferase 14 U/L (0-40); Blood Urea Nitrogen 9 mg/dL (6-20); Carbon Dioxide 26 mmol/L (22-29); Chloride 99 mmol/L (98-107); Globulin 2.3 g/dL (1.3-4.6); Glomerular Filtration Rate 202.6 mL/min (90-130); Glucose 121 mg/dL (65-115); Osmolality Calculated 282 mOsm/kg (285-295); Potassium 3.7 mmol/L (3.5-5.1); Sodium 136 mmol/L (136-145); Total Bilirubin 0.2 mg/dL (0.15-1.2); Total Protein 6.2 g/dL (6.6-8.7)
[2024-06-09 22:39] LABS: Lactic Sepsis W/Reflex 1.7 mmol/L (0.5-2.2)
[2024-06-09 22:46] LABS: Creatinine Clr Calc Pharmacy 242.0469; Neutrophils # 0.88 10^3/uL (1.8-7.7); Platelet Count 13 10^3/cmm (157-399)
[2024-06-09] MEDS: acetaminophen 325 mg Tablet 650 MG PO (22:46)
[2024-06-09] MEDS: sodium chloride 0.9% 500 ML 999 ML IV (22:47)
--- NOTE | 2024-06-09 23:11 | CTR_ITS ---
PROCEDURE INFORMATION: Exam: CT Neck With Contrast Exam date and time: 06/09/2024 11:38 PM Age: 24 years old Clinical indication: Pain; Patient HX: PT C/O persistent dental infection that he has been on abx on for the last month. Currently on chemotherapy for leukemia. TECHNIQUE: Imaging protocol: Computed tomography of the neck with contrast. Radiation optimization: All CT scans at this facility use at least one of these dose optimization techniques: automated exposure control; mA and/or kV adjustment per patient size (includes targeted exams where dose is matched to clinical indication); or iterative reconstruction. Contrast material: OMNI 350; Contrast volume: 100 ml; Contrast route: INTRAVENOUS (IV); COMPARISON: CT facial bones w con [id number] 04/25/2024 6:24 PM RADIATION DOSE METRICS: Total DLP (mGy-cm): 164.01 FINDINGS: Paranasal sinuses: Bilateral maxillary mucosal thickening, [id number]. Salivary glands: Normal. Glands are normal in size. Oral cavity: Edema and fat stranding within the left buccal soft tissues involving the left carbonation equipment operator and left pterygoid muscles. Scattered disorganized free fluid within the left buccal and carbonation equipment operator spaces. 8 x 6 mm hypodensity along the left lateral maxilla (series 5, image 96; series 3, image 27) appears incompletely walled-off but may represent a phlegmon of a developing abscess. Teeth: Bilateral dental caries. The maxillary cortex along the left 1st and 2nd maxillary molars is dehisced into the soft tissues (series 5, image 92 and 96). Pharynx: Unremarkable. No significant tonsillar enlargement. Prevertebral and retropharyngeal spaces: Unremarkable. Larynx: Unremarkable. Epiglottis is normal. Thyroid: Normal. No enlarged or calcified nodules. Trachea: Visualized trachea is unremarkable. Lungs: Unremarkable as visualized. Lymph nodes: Unremarkable. No lymphadenopathy. Bones/joints: See Oral cavity finding. Soft tissues: See Teeth finding. CT/CT neck w con* [id number] IMPRESSION: 1. Left-sided odontogenic cellulitis involving the soft tissues of the buccal and carbonation equipment operator spaces. 2. No definitive walled-off fluid collection is appreciated, however a suspected phlegmon of a developing abscess is appreciated lateral to the left 1st molar.
[2024-06-09] MEDS: sodium chloride 0.9% 1,000 ML 999 ML IV (23:16)
[2024-06-09 23:28] VITALS: BP 126/76; PULSE 101; RESP 18; O2SAT 100
[2024-06-09 23:28] LABS: Covid PCR NEGATIVE (Negative); Influenza A NEGATIVE (Negative); Influenza B NEGATIVE (Negative); Respiratory Syncytial Virus Ce NEGATIVE (Negative)
[2024-06-09] MEDS: iohexol 350 mg/mL 500 mL Btl (per mL) IV (23:41)
[2024-06-10] VITALS (18 sets, daily range): BP systolic 108–132; BP diastolic 61–91; PULSE 96–137; RESP 15–20; TEMP 36.8–37.4; O2SAT 97–100
[2024-06-10] MEDS: sodium chloride 0.9% 1,000 ML 999 ML IV (00:20)
[2024-06-10 00:36] LABS: Bilirubin Urine Negative (Negative); Blood Urine Negative (Negative); Glucose Urine UA Negative (Normal); Ketones Urine Negative (Negative); Leukocyte Esterase Urine Negative (Negative); Nitrate Urine Negative (Negative); Protein Urine Negative (Negative); Specific Gravity, Urine 1.017 (1.005-1.030); Urine Appearance Clear (CLEAR); Urine Color Yellow (Yellow); Urobilinogen Urine 0.2 mg/dL (Negative); pH Urine 6.5 (5-7)
[2024-06-10 00:41] LABS: Add Urine Microscopic? YES; Bacteria Urine None Seen /hpf; Hyaline Casts Urine 0-4 /lpf; RBC Urine 0-2 /hpf (0-2); Squamous Epithelial Cell Urine 0-5 /hpf (0-5); WBC Urine 0-5 /hpf (0-5)
--- NOTE | 2024-06-10 01:45 | P.HP_ITS ---
Providers/Chief Complaint 2 Admitting Physician: Kei English Chief Complaint: Cancer pt, Fever History of Present Illness Pleasant 24-year-old gentleman with acute leukemia, undergoing treatments at in [place] including having just completed a course of chemotherapy, after which he received Neulasta. He is platelets were low in [place] but recommendation was to reassess the level for improvement. He was advised to seek medical attention in case of fever. He did spike fever prompting him to come into the ER. Reported had fever 101 Fahrenheit. In ER temp is 99.7. He is neutropenic, WBC 2.33, ANC 0.88. Platelets 13. He has had some diarrheal stools since being in [place]. He also has had dental issues recently for which he has been receiving antibiotics. Several days back he had a nosebleed Review of Systems 2 Const: Reports: fever(s); Denies: body aches ENMT: Denies: throat pain Card: Denies: chest pain, edema, pre-syncope or dyspnea on exertion Resp: Denies: dyspnea, productive cough, change in phlegm color or hemoptysis GI: Reports: diarrhea; Denies: abdominal pain, nausea, vomiting, constipation, hematochezia or melena : Denies: flank pain, difficulty urinating, urinary frequency or hematuria Musc: Denies: back pain, joint swelling or joint redness Skin/Breast: Denies: rash or new lesions Neuro: Denies: headache(s) or confusion Medications/Allergies Home Medications Medication Instructions Recorded Confirmed Last Taken Type acyclovir 200 mg capsule 200 mg PO BID 04/25/24 06/10/24 Unknown History polyethylene glycol 3350 17 4 g PO DAILY 04/25/24 06/10/24 Unknown History gram/dose oral powder sennosides 8.6 mg tablet 8.6 mg PO BID 04/25/24 06/10/24 Unknown History Allergies Allergy/AdvReac Type Severity Reaction Status Date / Time No Known Allergies Allergy Verified 06/09/24 22:08 PFSH Acute 2 PFSH: Medical History Acute leukemia Poor dentition Social History Smoking and tobacco/nicotine status: unknown if used tobacco/nicotine Vitals/I&O/Wt Last Vital Signs Temp 99.7 F H 06/09/24 22:04 Pulse 109 H 06/10/24 01:07 Resp 18 06/10/24 00:28 BP 127/86 06/10/24 01:07 Pulse Ox 100 06/10/24 01:07 O2 Del Method Room Air 06/10/24 01:34 06/09/24 06/09/24 06/10/24 14:59 22:59 06:59 Intake Total 2500 / 2500 Balance 2500 / 2500 Weight last 48 hrs Weight 74.843 kg Weight 73.028 kg Physical Exam 2 Narrative: Accompanied by his sister. Const: COMMON NORMALS: patient oriented x3 and alert GENERAL APPEARANCE: c ooperative ORIENTATION/CONSCIOUSNESS: Yes awake OTHER: Pale HENMT: COMMON NORMALS: oropharynx normal OTHER: Alopecia totalis Neck/C-Spine: COMMON NORMALS: no JVD Resp: COMMON NORMALS: normal respiratory effort and clear to auscultation bilaterally AUSCULTATION: clear to auscultation bilaterally Cardio: COMMON NORMALS: no JVD, regular rhythm, S1 normal heart sound present, S2 normal heart sound present and No murmurs present (Cardio) RHYTHM: regular rhythm HEART SOUNDS: S1 normal heart sound present and S2 normal heart sound present GI: COMMON NORMALS: Normal to inspection, nondistended, normoactive bowel sounds present, Soft to palpation and non-tender PALPATION: Yes Soft to palpation Extremity: COMMON NORMALS: no joint enlargement and no pedal edema Neuro: COMMON NORMALS: patient oriented x3 and moves all extremities S ENSORIUM/ORIENTATION: Yes alert Skin: COMMON NORMALS: no rashes or lesions noted GENERAL SKIN EXAM: no rashes or lesions noted Data 06/09/24 22:15 06/09/24 22:15 Micro: Microbiology 06/09/24 22:30 Blood Culture - Preliminary Blood SPECIMEN COLLECTED 06/09/24 22:29 Blood Culture - Preliminary Blood SPECIMEN COLLECTED A&P Assessment and plan (1) Neutropenic fever: Reviewed vitals, CBC, hemoglobin, platelets, ANC, CMP, lactic acid, UA, COVID PCR, influenza PCR, RSV PCR, chest x-ray, neck CT, ER note, discussed with ER provider. He did not wish to transfer to [place]. Per discussion with his team in [place] by ER physician platelets could be monitored unless there is bleeding or other concern, currently no active bleeding. Neutropenic fever, fever 101, ANC 0.88, history of dental issues, has been on antibiotics. Contrast dental CT obtained with finding of left-sided odontogenic cellulitis involving soft tissues of the buccal and electric power line repairer spaces. No definite walled off fluid collection appreciated, possible phlegmon is noted lateral to the first molar. He is started on empiric antibiotic coverage with Zosyn, vancomycin. Zosyn may provide better coverage for anaerobes. Will avoid linezolid with concern for agranulocytosis. Monitor for risk of acute kidney injury with combination of Zosyn and vancomycin. Will need follow-up with a dentist. Consider repeat CT to exclude formation of abscess which may necessitate earlier transfer for abscess drainage. Additionally with diarrhea, recent antibiotics check for C. difficile, check ova and parasites. Follow-up blood culture. Repeat blood counts. He has received Neulasta. Discussed with patient and his sister neutropenic precautions and diet. (2) Dental infection: As above. (3) Thrombocytopenia: Per history obtained from his sister he had a nosebleed several days ago but without recurrence. Platelets 13,000. Has prescription with his team in [place] monitor level for now without transfusion unless bleeding or other concern. Repeat blood counts. SCD only for DVT prophylaxis. Attestations 2 Medical Necessity Statement*: Admission of over 2 midnights anticipated for assessment and management of neutropenic fever with dental infection and a gentleman with acute leukemia. Diagnoses Neutropenic fever D70.9; R50.81 Dental infection K04.7 Thrombocytopenia D69.6
[2024-06-10] MEDS: piperacillin-tazobactam 3.375 GM in sodium chloride 0.9% (plus) 50 ML IV ×3 (02:30→18:09)
[2024-06-10] MEDS: oxyCODONE-APAP 5-325 mg Tablet 1 TAB PO (03:12)
[2024-06-10] MEDS: vancomycin 1,000 MG in sodium chloride 0.9% 250 ML 250 MG IV ×3 (03:13→19:00)
--- NOTE | 2024-06-10 11:13 | P.PN_ITS ---
Subjective 2 Subjective: Patient reports severe pain in his jaw. He states typically [place] he does well with oxycodone and Dilaudid. He reports the diarrhea is slightly improved. He is on C. difficile rule out. Denies nausea or vomiting. He reports his oncologist does not want his teeth addressed until he is off chemotherapy. Medications: Reviewed: Yes Vitals/I&O/Wt Last Vital Signs Temp 99.3 F 06/10/24 07:19 Pulse 102 H 06/10/24 07:19 Resp 18 06/10/24 07:19 BP 126/67 06/10/24 07:19 Pulse Ox 99 06/10/24 07:19 O2 Del Method Room Air 06/10/24 07:19 06/09/24 06/10/24 06/10/24 22:59 06:59 14:59 Intake Total 2759.583 / 2759.583 40.417 / 40.417 Output Total 450 / 450 Balance 2309.583 / 2309.583 40.417 / 40.417 Weight last 48 hrs Weight 74.843 kg Weight 74.843 kg Weight 73.028 kg Physical Exam 2 Narrative: General: Patient is awake. Ill-appearing. Head: Normocephalic. Atraumatic. EOM intact. Poor dentition. Neck: No JVD. Cardiovascular: RRR. No gallops. No murmurs. No peripheral edema. Lungs: Clear to auscultation, no use of accessory muscles, no crackles or wheezes. Skin: No jaundice. No rashes. Abdomen: Normal bowel sounds, abdomen soft and nontender. Genito Urinary: Genital exam not performed since complaints not related. Rectal: Rectal exam not performed since no symptoms indicated blood loss. Extremities: No cyanosis or clubbing. Musculoskeletal: No swollen or erythematous joints. Neurological: Moves all 4 extremities. No myoclonus. Data 06/09/24 22:15 06/09/24 22:15 Micro: Microbiology 06/09/24 22:30 Blood Culture - Preliminary Blood SPECIMEN COLLECTED 06/09/24 22:29 Blood Culture - Preliminary Blood SPECIMEN COLLECTED A&P Assessment and plan (1) Neutropenic fever: Neutropenic fever Suspected source is dental infection There is early phlegmon on imaging, may benefit from repeat imaging pending clinical course Continue vancomycin Continue Zosyn MRSA screen (2) Dental infection: Recommended establishing care with dentistry (3) Thrombocytopenia: Monitor for signs and symptoms of bleeding Without bleeding transfusion threshold will be 10,000 CBC daily (4) Pancytopenia: Pancytopenia secondary to underlying leukemia and chemotherapy side effects Management as above (5) Acute leukemia: Follows at [facility] in [facility] Plan DVT prophylaxis: SCD CODE STATUS: Full code Attestations 2 Medical Necessity Statement*: Patient presents with neutropenic fever requiring ongoing hospitalization for serial cultures, IV antibiotics, and supportive care. Coding Level of Care Code Acute Code for [facility] Fwd Diagnoses Neutropenic fever D70.9; R50.81 Dental infection K04.7 Thrombocytopenia D69.6 Pancytopenia D61.818 Acute leukemia C95.00
[2024-06-10] MEDS: HYDROmorphone 1 mg/mL INJ 1 mL 0.5 MG IVP ×3 (11:16→20:21)
[2024-06-10 11:17] LABS: Mean Corpuscular HGB Conc 31.9 g/dL (30-55); Mean Corpuscular Hemoglobin 28.9 pg (27-33); Mean Corpuscular Volume 90.8 fl (82-101); Red Blood Count 2.28 10^6/uL (3.85-5.65); Red Cell Distribution Width 16.4 % (12.1-15.1)
[2024-06-10 12:12] LABS: Absolute Segmented Neutrophil 0.8 10/cmm (1.6-7.1); Band Neutrophils Absolute 0.3 10^3/cmm (0.0-1.2); Eosinophils 0 %; Segmented Neutrophils 20 %; Slide Review Slide Review Perform; Total Cells Counted 100 (0-100)
[2024-06-10 12:13] LABS: Absolute Neutrophil 1.1 10^3/cmm (1.4-6.5); Lymphocytes 28 %; Lymphocytes Absolute 1.1 10^3/cmm (1.2-3.4); Monocytes Absolute 0.2 10^3/cmm (0.1-0.6); Platelet Estimate Decreased (Normal)
[2024-06-10 12:17] LABS: Hematocrit 20.7 % (37-53); Platelet Count 20 10^3/cmm (157-399)
--- NOTE | 2024-06-10 12:50 | PHA.VACGOAL ---
Vancomycin Goal - Goal Vancomycin Goal:: 10-15 mg/L Vancomycin Indication:: Other - Therapy Day of therpy:: Day []of [] . Actual body weight (kg): 165 lb - Data Labs: WBC 3.90 10^3/uL (3.29-11.43) 06/10/24 11:06 RBC 2.28 10^6/uL (3.85-5.65) L 06/10/24 11:06 Hgb 6.60 g/dL (11.27-16.99) L 06/10/24 11:06 Hct 20.7 % (37-53) L* 06/10/24 11:06 MCV 90.8 fl (82-101) 06/10/24 11:06 MCH 28.9 pg (27-33) 06/10/24 11:06 MCHC 31.9 g/dL (30-55) 06/10/24 11:06 RDW 16.4 % (12.1-15.1) H 06/10/24 11:06 Sodium 136 mmol/L (136-145) 06/09/24 22:15 Potassium 3.7 mmol/L (3.5-5.1) 06/09/24 22:15 Chloride 99 mmol/L (98-107) 06/09/24 22:15 Carbon Dioxide 26 mmol/L (22-29) 06/09/24 22:15 Anion Gap 14.7 (5-19) 06/09/24 22:15 BUN 9 mg/dL (6-20) 06/09/24 22:15 Creatinine 0.5 mg/dL (0.7-1.2) L 06/09/24 22:15 GFR Calculation 202.6 mL/min (90-130) H 06/09/24 22:15 Treatment plan:: continue Regimen:: 1000 mg q8h Follow up:: trough jamia 06/11 1000
[2024-06-10 19:55] LABS: Hematocrit 26.1 % (37-53)
[2024-06-11] VITALS (13 sets, daily range): BP systolic 105–118; BP diastolic 65–70; PULSE 93–101; RESP 16–19; TEMP 36.8–37.1; O2SAT 97–100
[2024-06-11] MEDS: oxyCODONE 5 mg IR Tab/Cap PO ×2 (02:20→20:41)
[2024-06-11] MEDS: piperacillin-tazobactam 3.375 GM in sodium chloride 0.9% (plus) 50 ML IV ×3 (02:55→17:21)
[2024-06-11] MEDS: vancomycin 1,000 MG in sodium chloride 0.9% 250 ML 250 MG IV (02:55)
[2024-06-11] MEDS: HYDROmorphone 1 mg/mL INJ 1 mL 0.5 MG IVP ×5 (02:59→21:53)
[2024-06-11 03:39] LABS: MRSA PCR OZH (swab) NOT DETECTED (Negative)
[2024-06-11 05:32] LABS: Hematocrit 26.5 % (37-53); Mean Corpuscular HGB Conc 31.7 g/dL (30-55); Mean Corpuscular Hemoglobin 29.2 pg (27-33); Mean Platelet Volume 11.9 fL (7.4-10.4); Platelet Count 51 10^3/cmm (157-399); Red Blood Count 2.88 10^6/uL (3.85-5.65); Red Cell Distribution Width 15.8 % (12.1-15.1); White Blood Count 6.47 10^3/uL (3.29-11.43)
[2024-06-11 05:54] LABS: Alanine Aminotransferase 25 U/L (0-41); Albumin Level 3.5 g/dL (3.5-5.2); Alkaline Phosphatase 122 U/L (40-130); Anion Gap 14.6 (5-19); Aspartate Amino Transferase 19 U/L (0-40); Blood Urea Nitrogen 3 mg/dL (6-20); Carbon Dioxide 26 mmol/L (22-29); Chloride 100 mmol/L (98-107); Creatinine Clr Calc Pharmacy 241.6993; Globulin 2.3 g/dL (1.3-4.6); Glomerular Filtration Rate 202.6 mL/min (90-130); Glucose 113 mg/dL (65-115); Osmolality Calculated 281 mOsm/kg (285-295); Potassium 3.6 mmol/L (3.5-5.1); Sodium 137 mmol/L (136-145); Total Bilirubin 0.2 mg/dL (0.15-1.2); Total Protein 5.8 g/dL (6.6-8.7)
[2024-06-11 06:10] LABS: Slide Review Slide Review Perform
[2024-06-11 06:16] LABS: Absolute Eosinophils 0.3 10^3/cmm (0.0-0.7); Absolute Neutrophil 2.1 10^3/cmm (1.4-6.5); Absolute Segmented Neutrophil 0.8 10/cmm (1.6-7.1); Band Neutrophils Absolute 1.3 10^3/cmm (0.0-1.2); Eosinophils 5 %; Lymphocytes 17 %; Lymphocytes Absolute 1.2 10^3/cmm (1.2-3.4); Monocytes Absolute 1.3 10^3/cmm (0.1-0.6); Platelet Estimate Decreased (Normal); Segmented Neutrophils 13 %; Total Cells Counted 100 (0-100)
--- NOTE | 2024-06-11 09:17 | P.PN_ITS ---
Subjective 2 Subjective: Patient reports ongoing pain in his teeth. States diarrhea has improved and close to resolved. Denies fevers overnight. MRSA negative; discussed discontinue vancomycin. BCx are still pending. Discussed plan of care. Medications: Reviewed: Yes Vitals/I&O/Wt Last Vital Signs Temp 98.3 F 06/11/24 07:52 Pulse 101 H 06/11/24 07:52 Resp 17 06/11/24 08:53 BP 110/65 06/11/24 07:52 Pulse Ox 100 06/11/24 07:52 O2 Del Method Room Air 06/11/24 07:52 06/10/24 06/11/24 06/11/24 22:59 06:59 14:59 Intake Total 940 / 9460.234 4172 / 3030.417 Output Total 700 / 1900 1070 / 2970 700 / 700 Balance 240 / -189.583 250 / 60.417 -700 / -700 Weight last 48 hrs Weight 72.756 kg Weight 74.843 kg Weight 74.843 kg Weight 73.028 kg Physical Exam 2 Narrative: General: Patient is awake. Ill-appearing. Head: Normocephalic. Atraumatic. EOM intact. Poor dentition. Neck: No JVD. Cardiovascular: RRR. No gallops. No murmurs. No peripheral edema. Lungs: Clear to auscultation, no use of accessory muscles, no crackles or wheezes. Skin: No jaundice. No rashes. Abdomen: Normal bowel sounds, abdomen soft and nontender. Extremities: No cyanosis or clubbing. Musculoskeletal: No swollen or erythematous joints. Neurological: Moves all 4 extremities. No myoclonus. Data 06/11/24 05:19 06/11/24 05:19 Micro: Microbiology 06/09/24 22:30 Blood Culture - Preliminary Blood NEGATIVE TO DATE 06/09/24 22:29 Blood Culture - Preliminary Blood NEGATIVE TO DATE A&P Assessment and plan (1) Neutropenic fever: Neutropenic fever Suspected source is dental infection There is early phlegmon on imaging, may benefit from repeat imaging pending clinical course MRSA negative, discontinue vancomycin Continue Zosyn Follow culture; BCx need to be negative at least 48 hours before considering discharge (2) Dental infection: Recommended establishing care with dentistry (3) Thrombocytopenia: Monitor for signs and symptoms of bleeding Without bleeding transfusion threshold will be 10,000 Platelet improving Continue with CBC daily (4) Pancytopenia: 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 Coding Level of Care Code Acute Code for [facility] Fwd Diagnoses Neutropenic fever D70.9; R50.81 Dental infection K04.7 Thrombocytopenia D69.6 Pancytopenia D61.818 Acute leukemia C95.00
--- NOTE | 2024-06-11 09:42 | PC.CHAP ---
Pastoral Care Encounter/Spiritual Assessment Type of Contact [] Declined clerk supervisor visit [] Patient/Family/Request visit [] Outpatient visit [] Follow-up visit [] Physician referral [] Code/Alert [] Routine visit [] Staff referral [] Actively dying [] Patient sleeping [] Family support [] [] Out of room [] Palliative care [] [] Receiving care in room [] Pre-surgical visit [] Trauma [] Long length of stay [] ICU visit [x] Other:Contact precautions. No visit. Relational/Emotional Strength [] Patient feels connected with others/family/visitors/staff [] Distress [] Loneliness/isolation [] Abandonment Spirituality of Patient [] Person of Letha [] Attends Anabaptist of their Letha [] Believes in Prayer [] Reads Bible or Quaker materials [] There are Spiritual issues to be addressed Client Support Coordinator Interventions [] Prayer [] Active listening [] Non-anxious presence [] Spiritual/emotional support [] Crisis/trauma care [] Spiritual counseling [] Bereavement support [] Provided bereavement packet [] Provided Bible/devotional materials [] Provided toy/stuffed animal, coloring book to patient or family member [] Provided Communion [] Anointing/[place] [] Salvation [] Completed spiritual assessment [] Other: Impact on Illness or Injury [] Angry [] Fearful [] Anxious [] Often cries [] Exhaustion [] Unable to work [] Unable to attend restoration [] Unable to walk/stand [] Unable to read [] Unable to drive [] Unable to eat/drink [] Unable to sleep [] Unable to be with family [] Patient intubated [] Other: Summary Time spent with patient
[2024-06-11 10:46] LABS: Vancomycin Trough 9.1 ug/mL (10-15)
[2024-06-11 11:20] LABS: C.Diff PCR (Lab) POSITIVE (Negative)
[2024-06-11] MEDS: vancomycin 125 mg Capsule PO ×3 (12:33→20:42)
[2024-06-11 12:34] LABS: Clostridioides Difficile Toxin NEGATIVE (Negative)
--- NOTE | 2024-06-11 16:45 | PC.NURSE ---
At approx. 1315, GAMEPLAY PROGRAMMER notified this nurse that pt had hit his head and was bleeding. Pt stated that he bent over and hit head on white ring. It was the suction negron on wall. Pt has approx 1.5 in lunar shaped skin tear. This nurse applied pressure, ice and cleansed area. Wound edges well approximated and applied steri-strips. Dr. Mansfield notified and neuro's q 4 hours started.
[2024-06-12] VITALS (10 sets, daily range): BP systolic 107–111; BP diastolic 60–66; PULSE 83–97; RESP 14–18; TEMP 36.7–37.1; O2SAT 96–99
[2024-06-12] MEDS: piperacillin-tazobactam 3.375 GM in sodium chloride 0.9% (plus) 50 ML IV ×2 (01:30→10:43)
[2024-06-12] MEDS: HYDROmorphone 1 mg/mL INJ 1 mL 0.5 MG IVP ×4 (02:52→14:04)
--- NOTE | 2024-06-12 05:22 | PC.NURSE ---
Pt hits call light and states he is in severe pain and when offered oxycodone, he declines it stating it does not help.
[2024-06-12 05:35] LABS: Basophils % 0.3 %; Eosinophils # 0.1 10^3/uL (0.0-0.8); Eosinophils % 0.7 %; Hematocrit 27.3 % (37-53); Lymphocytes % 10.2 %; Mean Corpuscular HGB Conc 32.6 g/dL (30-55); Mean Corpuscular Hemoglobin 29.5 pg (27-33); Mean Corpuscular Volume 90.4 fl (82-101); Mean Platelet Volume 11.1 fL (7.4-10.4); Monocytes % 20.9 %; Neutrophils # 1.13 10^3/uL (1.8-7.7); Neutrophils % 12.1 %; Nucleated Red Blood Cells # 0.1 /100WBC; Nucleated Red Blood Cells % 0.6 %; Platelet Count 145 10^3/cmm (157-399); Red Blood Count 3.02 10^6/uL (3.85-5.65); Red Cell Distribution Width 15.9 % (12.1-15.1); White Blood Count 9.34 10^3/uL (3.29-11.43)
[2024-06-12 05:51] LABS: Alanine Aminotransferase 24 U/L (0-41); Albumin Level 3.7 g/dL (3.5-5.2); Alkaline Phosphatase 122 U/L (40-130); Anion Gap 16.1 (5-19); Aspartate Amino Transferase 21 U/L (0-40); Blood Urea Nitrogen 6 mg/dL (6-20); Calcium 9.3 mg/dL (8.5-10.5); Carbon Dioxide 26 mmol/L (22-29); Chloride 101 mmol/L (98-107); Creatinine Clr Calc Pharmacy 200.5951; Globulin 2.1 g/dL (1.3-4.6); Glomerular Filtration Rate 164.2 mL/min (90-130); Glucose 93 mg/dL (65-115); Osmolality Calculated 285 mOsm/kg (285-295); Potassium 4.1 mmol/L (3.5-5.1); Sodium 139 mmol/L (136-145); Total Bilirubin 0.3 mg/dL (0.15-1.2); Total Protein 5.8 g/dL (6.6-8.7)
[2024-06-12 05:52] LABS: Albumin Level 3.9 g/dL (3.5-5.2); Anion Gap 15.3 (5-19); Blood Urea Nitrogen 6 mg/dL (6-20); Calcium 9.4 mg/dL (8.5-10.5); Carbon Dioxide 27 mmol/L (22-29); Chloride 102 mmol/L (98-107); Creatinine Clr Calc Pharmacy 200.5951; Glomerular Filtration Rate 164.2 mL/min (90-130); Glucose 92 mg/dL (65-115); Phosphorus 5.5 mg/dL (2.5-4.5); Potassium 4.3 mmol/L (3.5-5.1); Sodium 140 mmol/L (136-145)
[2024-06-12 06:10] LABS: Slide Review Slide Review Perform
[2024-06-12] MEDS: vancomycin 125 mg Capsule PO (09:51)
[2024-06-12] MEDS: oxyCODONE 5 mg IR Tab/Cap PO (09:51)
--- NOTE | 2024-06-12 11:11 | P.DS_ITS ---
Discharge Providers Date of Admission: 06/10/24 00:26 Date of Discharge: June 12, 2024 Attending Provider at Admission: Kei English Attending Provider at Discharge: Isaías Mansfield MD Diagnoses at Discharge Discharge Diagnosis (1) Neutropenic fever: Status: Acute (2) Dental infection: Status: Acute (3) Thrombocytopenia: Status: Acute (4) Pancytopenia: Status: Acute (5) Acute leukemia: Status: Acute Reason for Visit Reason for Visit: Cancer pt, Fever Hospital Course Hospital Course Javed Couch is a 24-year-old male with a past medical history significant for acute leukemia currently on treatment [facility] who presented with fever, found to have neutropenic fever with infectious source likely being dental infection. CT imaging revealed left-sided odontogenic cellulitis of the soft tissue consistent with infection. There is no definitive walled off fluid collection or abscess. Patient was treated with broad-spectrum antibiotics with vancomycin and Zosyn. MRSA screening was negative. Vancomycin was discontinued. Cultures remain negative. He was transition from Zosyn to an additional 14 days of Augmentin at discharge. He was found to have pancytopenia secondary to chemotherapy side effects upon admission. Leukopenia resolved. He required transfusion of 1 packed red blood cell with improvement in hemoglobin. His thrombocytopenia was nearly resolved by day of discharge. Repeating CT was considered initially however given significant improvement in symptomatology and labs, clinical decision was ultimately made to hold off due to risk of marked radiation exposure from head CT and as well as IV contrast load. He was advised to establish care with dentistry. Should he need dental intervention, the best timing will need to be determined through conversation with the dentist and his medical oncology team. Patient was educated on return precautions for any worsening symptoms or lack of continued improvement. Upon presentation he did complain of diarrhea which resolved. C. difficile was considered for which antigen was positive however toxigenic testing was negative. He was transiently treated with oral vancomycin while waiting toxin result. Diarrhea resolved. No indication continue oral vancomycin at discharge. Patient discharged home in stable condition. He will follow-up with his primary provider as well as medical oncology team. Physical Exam Narrative: General: Patient is awake. Head: Normocephalic. EOM intact. Poor dentition. Scratch on scalp covered with Steri-Strips. Neck: No JVD. Cardiovascular: RRR. No gallops. No murmurs. No peripheral edema. Lungs: Clear to auscultation, no use of accessory muscles, no crackles or wheezes. Skin: No jaundice. No rashes. Abdomen: Normal bowel sounds, abdomen soft and nontender. Extremities: No cyanosis or clubbing. Musculoskeletal: No swollen or erythematous joints. Neurological: Moves all 4 extremities. No myoclonus. Discharge Data Studies Completed and Pending Completed Studies During Hospitalization Category Date Time Status CT neck w con* [id number] Stat Cat Scan 06/09/24 23:11 Completed XR chest 1V portable [id number] Stat Exams 06/09/24 21:57 Completed Pending at discharge Category Date Time Status Blood Culture Stat Lab 06/09/24 22:30 Results Complete Blood Count w/Auto AM LABS Lab 06/13/24 04:00 Ordered Comprehensive Metabolic Panel AM LABS Lab 06/13/24 04:00 Ordered Stool Culture - Enteric [Salmonella / Shigella / Campy] Lab 06/10/24 01:46 Received Routine Radiology Impressions Chest X-Ray 06/09/24 21:57 IMPRESSION: No acute findings. Neck CT 06/09/24 23:11 IMPRESSION: 1. Left-sided odontogenic cellulitis involving the soft tissues of the buccal and cabinet finisher spaces. 2. No definitive walled-off fluid collection is appreciated, however a suspected phlegmon of a developing abscess is appreciated lateral to the left 1st molar. Laboratory Results WBC 9.34 10^3/uL (3.29-11.43) 06/12/24 05:07 RBC 3.02 10^6/uL (3.85-5.65) L 06/12/24 05:07 Hgb 8.90 g/dL (11.27-16.99) L 06/12/24 05:07 Hct 27.3 % (37-53) L 06/12/24 05:07 MCV 90.4 fl (82-101) 06/12/24 05:07 MCH 29.5 pg (27-33) 06/12/24 05:07 MCHC 32.6 g/dL (30-55) 06/12/24 05:07 RDW 15.9 % (12.1-15.1) H 06/12/24 05:07 Plt Count 145 10^3/cmm (157-399) L D 06/12/24 05:07 MPV 11.1 fL (7.4-10.4) H 06/12/24 05:07 Neut % (Auto) 12.1 % 06/12/24 05:07 Lymph % (Auto) 10.2 % 06/12/24 05:07 Martin % (Auto) 20.9 % 06/12/24 05:07 Eos % (Auto) 0.7 % 06/12/24 05:07 Baso % (Auto) 0.3 % 06/12/24 05:07 Neut # (Auto) 1.13 10^3/uL (1.8-7.7) L 06/12/24 05:07 Lymph # (Auto) 1.0 10^3/uL (0.8-4.8) 06/12/24 05:07 Martin # (Auto) 2.0 10^3/uL (0.2-0.9) H 06/12/24 05:07 Eos # (Auto) 0.1 10^3/uL (0.0-0.8) 06/12/24 05:07 Baso # (Auto) 0.0 10^3/uL (0.0-0.1) 06/12/24 05:07 Nucleated RBC % (auto) 0.6 % 06/12/24 05:07 Total Counted 100 (0-100) 06/11/24 05:19 Atypical Lymphs % 1.0 % (0-5) 06/11/24 05:19 Absolute Neutrophils 2.1 10^3/cmm (1.4-6.5) 06/11/24 05:19 Segmented Neutrophils 13 % 06/11/24 05:19 Abs Segm Neuts (Man) 0.8 10/cmm (1.6-7.1) L 06/11/24 05:19 Band Neutrophils 20.0 % 06/11/24 05:19 Abs Band Neuts (Man) 1.3 10^3/cmm (0.0-1.2) H 06/11/24 05:19 Absolute Lymphocytes 1.2 10^3/cmm (1.2-3.4) 06/11/24 05:19 Lymphocytes (Manual) 17 % 06/11/24 05:19 Monocytes (Manual) 20.0 % 06/11/24 05:19 Absolute Monocytes 1.3 10^3/cmm (0.1-0.6) H 06/11/24 05:19 Eosinophils (Manual) 5 % 06/11/24 05:19 Absolute Eosinophils 0.3 10^3/cmm (0.0-0.7) 06/11/24 05:19 Basophils (Manual) 0.0 % 06/11/24 05:19 Absolute Basophils 0.0 10^3/cmm (0.0-0.2) 06/11/24 05:19 Metamyelocytes 14.0 % 06/11/24 05:19 Myelocytes 4.0 % 06/11/24 05:19 Promyelocytes 6.0 % 06/11/24 05:19 Nucleated RBCs # 0.1 /100WBC 06/12/24 05:07 Platelet Estimate Decreased (Normal) 06/11/24 05:19 Sodium 139 mmol/L (136-145) 06/12/24 05:07 Sodium 140 mmol/L (136-145) 06/12/24 05:07 Potassium 4.1 mmol/L (3.5-5.1) 06/12/24 05:07 Potassium 4.3 mmol/L (3.5-5.1) 06/12/24 05:07 Chloride 101 mmol/L (98-107) 06/12/24 05:07 Chloride 102 mmol/L (98-107) 06/12/24 05:07 Carbon Dioxide 26 mmol/L (22-29) 06/12/24 05:07 Carbon Dioxide 27 mmol/L (22-29) 06/12/24 05:07 Anion Gap 15.3 (5-19) 06/12/24 05:07 Anion Gap 16.1 (5-19) 06/12/24 05:07 BUN 6 mg/dL (6-20) 06/12/24 05:07 BUN 6 mg/dL (6-20) 06/12/24 05:07 Creatinine 0.6 mg/dL (0.7-1.2) L 06/12/24 05:07 Creatinine 0.6 mg/dL (0.7-1.2) L 06/12/24 05:07 GFR Calculation 164.2 mL/min (90-130) H 06/12/24 05:07 GFR Calculation 164.2 mL/min (90-130) H 06/12/24 05:07 Glucose 92 mg/dL (65-115) 06/12/24 05:07 Glucose 93 mg/dL (65-115) 06/12/24 05:07 Calculated Osmolality 285 mOsm/kg (285-295) 06/12/24 05:07 Lactic Acid 1.7 mmol/L (0.5-2.2) 06/09/24 22:15 Calcium 9.3 mg/dL (8.5-10.5) 06/12/24 05:07 Calcium 9.4 mg/dL (8.5-10.5) 06/12/24 05:07 Phosphorus 5.5 mg/dL (2.5-4.5) H 06/12/24 05:07 Total Bilirubin 0.3 mg/dL (0.15-1.2) 06/12/24 05:07 AST 21 U/L (0-40) 06/12/24 05:07 ALT 24 U/L (0-41) 06/12/24 05:07 Alkaline Phosphatase 122 U/L (40-130) 06/12/24 05:07 Total Protein 5.8 g/dL (6.6-8.7) L 06/12/24 05:07 Albumin 3.7 g/dL (3.5-5.2) 06/12/24 05:07 Albumin 3.9 g/dL (3.5-5.2) 06/12/24 05:07 Globulin 2.1 g/dL (1.3-4.6) 06/12/24 05:07 Urine Color Yellow (Yellow) 06/10/24 00:23 Urine Appearance Clear (CLEAR) 06/10/24 00:23 Urine pH 6.5 (5-7) 06/10/24 00:23 Ur Specific [place] 1.017 (1.005-1.030) 06/10/24 00:23 Urine Protein Negative (Negative) 06/10/24 00:23 Urine Glucose (UA) Negative (Normal) 06/10/24 00:23 Urine Ketones Negative (Negative) 06/10/24 00:23 Urine Blood Negative (Negative) 06/10/24 00:23 Urine Nitrate Negative (Negative) 06/10/24 00:23 Urine Bilirubin Negative (Negative) 06/10/24 00:23 Urine Urobilinogen 0.2 mg/dL (Negative) 06/10/24 00:23 Ur Leukocyte Esterase Negative (Negative) 06/10/24 00:23 Urine RBC 0-2 /hpf (0-2) 06/10/24 00:23 Urine WBC 0-5 /hpf (0-5) 06/10/24 00:23 Ur Squamous Epith Cells 0-5 /hpf (0-5) 06/10/24 00:23 Amorphous Sediment Not Reportable 06/10/24 00:23 Urine Bacteria None seen /hpf (NONE) 06/10/24 00:23 Hyaline Casts 0-4 /lpf H 06/10/24 00:23 Nasal MRSA (PCR) Not detected (Negative) 06/11/24 02:20 Vancomycin Trough 9.1 ug/mL (10-15) L 06/11/24 10:15 C. difficile (PCR) Positive (Negative) H 06/11/24 09:30 C.difficile Tox Confrm Negative (Negative) 06/11/24 09:30 Coronavirus (PCR) Negative (Negative) 06/09/24 23:30 Influenza A (PCR) Negative (Negative) 06/09/24 23:30 Influenza Type B (PCR) Negative (Negative) 06/09/24 23:30 RSV (PCR) Negative (Negative) 06/09/24 23:30 Blood Type O Positive 06/09/24 22:31 Rho(D) Type Rh positive 06/09/24 22:31 Antibody Screen Negative 06/09/24 22:31 Crossmatch See Detail 06/09/24 22:31 Vitals Last Vital Signs Temp 98.6 F 06/12/24 08:00 Pulse 94 06/12/24 08:00 Resp 18 06/12/24 10:43 BP 107/62 06/12/24 08:00 Pulse Ox 97 06/12/24 08:00 O2 Del Method Room Air 06/12/24 08:00 Discharge Plan Discharge Patient Disposition: Home Condition: Stable Prescriptions: New amoxicillin-pot clavulanate 875-125 mg tablet 1 tab PO BID 14 Days Qty: 28 0RF Continued acyclovir 200 mg capsule 200 mg PO BID polyethylene glycol 3350 17 gram/dose powder 4 g PO DAILY sennosides 8.6 mg tablet 8.6 mg PO BID Discharge Orders: Discharge Order (Routine); Ordered 06/12/24 Ordered By: Isaías Mansfield Discharge Diet: Advance as tolerated and Usual diet Discharge Activity: Resume usual activity and Increase activity as tolerated Patient Instructions: Opioid Safety Activity Restrictions/Additional Instructions: 1. Keep follow-up with [facility] with medical oncology team. 2. Recommend establishing care with dentistry. Timing of dental extractions will need to be determined between dentists and medical oncology team. 3. Recommend follow-up with PCP within 1 week. 4. Return precautions discussed. Return to emergency department for recurrent or worsening symptoms. 5. Diet as tolerated. 6. Increase activity as tolerated. Discharge Attestations Time Spent in Discharge Care*: greater than 30 min Quality Metrics Clinical Quality Measures [ No reported AMI, CVA or VTE this stay] Coding Level of Care Code Acute Code for [facility] Fwd Diagnoses Neutropenic fever D70.9; R50.81 Dental infection K04.7 Thrombocytopenia D69.6 Pancytopenia D61.818 Acute leukemia C95.00
== END 2024-06-12 14:52 | disposition home or self-care (01) | DRG 809 ==
LOC: ER 06-10 00:33 → MEDSURG 06-10 00:51
PROVIDERS: Admitting Provider Internal Medicine; Emergency Provider Emergency Medicine; Visit Provider Internal Medicine
DX: D70.3 Neutropenia due to infection (principal); C95.00 Acute leukemia of unspecified cell type not having achieved remission; D61.810 Antineoplastic chemotherapy induced pancytopenia; K04.7 Periapical abscess without sinus; D69.6 Thrombocytopenia, unspecified; R50.81 Fever presenting with conditions classified elsewhere; T45.1X5A Adverse effect of antineoplastic and immunosuppressive drugs, initial encounter; R19.7 Diarrhea, unspecified
CPT/HCPCS: 0241U; 36415; 36430; 70491; 71045; 80053; 80069; 80202; 81001; 83605; 85007; 85014; 85018; 85025; 86850; 86900; 86920; 87040; 87045; 87324; 87427; 87449; 87493; 96360; 96361; 99285; J1170; J2543; J3370; J7030; J7040; J7050; P9016

== ENCOUNTER 2024-06-21 11:53 | Outpatient (CLI) | payer MEDICAID, SELFPAY ==
[2024-06-21 12:14] LABS: Basophils # 0.1 10^3/uL (0.0-0.1); Basophils % 1.9 %; Eosinophils % 0.2 %; Hematocrit 34.5 % (37-53); Lymphocytes % 17.7 %; Mean Corpuscular HGB Conc 31.6 g/dL (30-55); Mean Corpuscular Hemoglobin 30.6 pg (27-33); Mean Corpuscular Volume 96.9 fl (82-101); Mean Platelet Volume 9.4 fL (7.4-10.4); Monocytes # 1.6 10^3/uL (0.2-0.9); Monocytes % 28.4 %; Neutrophils # 2.86 10^3/uL (1.8-7.7); Neutrophils % 49.5 %; Nucleated Red Blood Cells % 0.3 %; Platelet Count 636 10^3/cmm (157-399); Red Blood Count 3.56 10^6/uL (3.85-5.65); Red Cell Distribution Width 19.9 % (12.1-15.1); White Blood Count 5.77 10^3/uL (3.29-11.43)
[2024-06-21 12:31] LABS: Alanine Aminotransferase 19 U/L (0-41); Albumin Level 4.6 g/dL (3.5-5.2); Alkaline Phosphatase 110 U/L (40-130); Anion Gap 17.5 (5-19); Aspartate Amino Transferase 21 U/L (0-40); Blood Urea Nitrogen 11 mg/dL (6-20); Calcium 9.5 mg/dL (8.5-10.5); Carbon Dioxide 24 mmol/L (22-29); Chloride 101 mmol/L (98-107); Globulin 2.4 g/dL (1.3-4.6); Glomerular Filtration Rate 137.4 mL/min (90-130); Glucose 90 mg/dL (65-115); Osmolality Calculated 285 mOsm/kg (285-295); Potassium 4.5 mmol/L (3.5-5.1); Sodium 138 mmol/L (136-145); Total Bilirubin 0.2 mg/dL (0.15-1.2)
[2024-06-21 12:53] LABS: Lactate Dehydrogenase 238 U/L (135-225)
== END 2024-06-21 11:54 | disposition home or self-care (01) ==
LOC: LAB 11:59
PROVIDERS: Visit Provider Internal Medicine
DX: C91.00 Acute lymphoblastic leukemia not having achieved remission (principal)
CPT/HCPCS: 36415; 80053; 83615; 85025

== ENCOUNTER 2024-07-04 14:40 | Outpatient (CLI) | payer MEDICAID, SELFPAY ==
[2024-07-04 15:39] LABS: Eosinophils # 0.2 10^3/uL (0.0-0.8); Eosinophils % 0.5 %; Hematocrit 39.3 % (37-53); Lymphocytes # 0.6 10^3/uL (0.8-4.8); Lymphocytes % 1.7 %; Mean Corpuscular HGB Conc 32.6 g/dL (30-55); Mean Corpuscular Hemoglobin 30.3 pg (27-33); Mean Corpuscular Volume 93.1 fl (82-101); Mean Platelet Volume 10.1 fL (7.4-10.4); Monocytes # 0.3 10^3/uL (0.2-0.9); Monocytes % 0.8 %; Neutrophils # 27.75 10^3/uL (1.8-7.7); Neutrophils % 84.8 %; Nucleated Red Blood Cells % 0 %; Platelet Count 147 10^3/cmm (157-399); Red Blood Count 4.22 10^6/uL (3.85-5.65); Red Cell Distribution Width 16.8 % (12.1-15.1)
[2024-07-04 15:59] LABS: Alanine Aminotransferase 34 U/L (0-41); Albumin Level 4.8 g/dL (3.5-5.2); Alkaline Phosphatase 172 U/L (40-130); Aspartate Amino Transferase 15 U/L (0-40); Blood Urea Nitrogen 17 mg/dL (6-20); Calcium 9.5 mg/dL (8.5-10.5); Carbon Dioxide 26 mmol/L (22-29); Chloride 95 mmol/L (98-107); Globulin 1.9 g/dL (1.3-4.6); Glomerular Filtration Rate 164.2 mL/min (90-130); Glucose 108 mg/dL (65-115); Lactate Dehydrogenase 154 U/L (135-225); Osmolality Calculated 280 mOsm/kg (285-295); Sodium 134 mmol/L (136-145); Total Bilirubin 1.4 mg/dL (0.15-1.2); Total Protein 6.7 g/dL (6.6-8.7)
[2024-07-04 19:07] LABS: Slide Review Slide Review Perform
[2024-07-04 19:49] LABS: White Blood Count 32.74 10^3/uL (3.29-11.43)
== END 2024-07-04 14:41 | disposition home or self-care (01) ==
LOC: LAB 14:43
DX: C91.00 Acute lymphoblastic leukemia not having achieved remission (principal)
CPT/HCPCS: 36415; 80053; 83615; 85025

== ENCOUNTER 2024-09-02 12:01 | Outpatient (CLI) | payer MEDICAID, SELFPAY ==
[2024-09-02 13:16] LABS: Hematocrit 24.1 % (37-53); Mean Corpuscular Hemoglobin 32.4 pg (27-33); Mean Corpuscular Volume 101.3 fl (82-101); Mean Platelet Volume 12.6 fL (7.4-10.4); Platelet Count 73 10^3/cmm (157-399); Red Blood Count 2.38 10^6/uL (3.85-5.65); Red Cell Distribution Width 18.2 % (12.1-15.1); White Blood Count 7.76 10^3/uL (3.29-11.43)
[2024-09-02 13:42] LABS: Alanine Aminotransferase 25 U/L (0-41); Albumin Level 3.5 g/dL (3.5-5.2); Alkaline Phosphatase 81 U/L (40-130); Anion Gap 14.2 (5-19); Aspartate Amino Transferase 19 U/L (0-40); Blood Urea Nitrogen 4 mg/dL (6-20); Calcium 8.6 mg/dL (8.5-10.5); Carbon Dioxide 27 mmol/L (22-29); Chloride 103 mmol/L (98-107); Globulin 1.8 g/dL (1.3-4.6); Glomerular Filtration Rate 262.1 mL/min (90-130); Glucose 108 mg/dL (65-115); Lactate Dehydrogenase 205 U/L (135-225); Osmolality Calculated 289 mOsm/kg (285-295); Potassium 3.2 mmol/L (3.5-5.1); Sodium 141 mmol/L (136-145); Total Bilirubin 0.2 mg/dL (0.15-1.2); Total Protein 5.3 g/dL (6.6-8.7)
--- NOTE | 2024-09-02 13:51 | PICC.NOTE ---
Called to [facility] for PICC dressing change and lab draw. Pt is a cancer treatment patient of Dr. Sears at in [place]. Pt arrived at lab for lab draw via PICC. [facility] access nurse called to draw lab. Upon assessment, PICC dressing almost completely off of skin. Only small area of TSM around Biopatch still in place. Using sterile technique, PICC dressing and end caps changed. Labs drawn. Pt and significant other edcuated the PICC dressing changes and lab draws should be done through cancer treatment center infufsion services. Pt and significant other given phone number to contact [facility].
[2024-09-02 13:56] LABS: Lymphocytes 14 %; Monocytes Absolute 0.4 10^3/cmm (0.1-0.6); Segmented Neutrophils 52 %; Slide Review Slide Review Perform; Total Cells Counted 100 (0-100)
[2024-09-02 13:57] LABS: Absolute Eosinophils 0.1 10^3/cmm (0.0-0.7); Anisocytosis 1+; Eosinophils 1 %; Lymphocytes Absolute 1.1 10^3/cmm (1.2-3.4); Macrocytosis 2+; Platelet Estimate Decreased (Normal); Poikilocytosis 1+; Polychromasia 1+
== END 2024-09-02 12:02 | disposition home or self-care (01) ==
LOC: LAB 12:06
PROVIDERS: Visit Provider Internal Medicine
DX: C91.00 Acute lymphoblastic leukemia not having achieved remission (principal)
CPT/HCPCS: 36592; 80053; 83615; 85007; 85025

== ENCOUNTER 2024-11-04 10:44 | Oncology outpatient (recurring) (ONCR) | payer MEDICAID, SELFPAY ==
[2024-11-04 11:14] LABS: Basophils # 0.1 10^3/uL (0.0-0.1); Basophils % 1.4 %; Eosinophils # 0.4 10^3/uL (0.0-0.8); Eosinophils % 7.5 %; Hematocrit 38.2 % (37-53); Lymphocytes # 1.2 10^3/uL (0.8-4.8); Lymphocytes % 20.9 %; Mean Corpuscular HGB Conc 31.2 g/dL (30-55); Mean Corpuscular Hemoglobin 31.3 pg (27-33); Mean Corpuscular Volume 100.5 fl (82-101); Mean Platelet Volume 9.6 fL (7.4-10.4); Monocytes # 1.3 10^3/uL (0.2-0.9); Neutrophils % 46.3 %; Nucleated Red Blood Cells % 0 %; Platelet Count 279 10^3/cmm (157-399); Red Cell Distribution Width 14.5 % (12.1-15.1); White Blood Count 5.61 10^3/uL (3.29-11.43)
[2024-11-04 11:24] LABS: Alanine Aminotransferase 34 U/L (0-41); Albumin Level 4.4 g/dL (3.5-5.2); Alkaline Phosphatase 138 U/L (40-130); Anion Gap 14.8 (5-19); Aspartate Amino Transferase 26 U/L (0-40); Blood Urea Nitrogen 10 mg/dL (6-20); Carbon Dioxide 27 mmol/L (22-29); Chloride 104 mmol/L (98-107); Creatinine Clr Calc Pharmacy 252.4799; Globulin 1.8 g/dL (1.3-4.6); Glomerular Filtration Rate 202.6 mL/min (90-130); Glucose 84 mg/dL (65-115); Osmolality Calculated 292 mOsm/kg (285-295); Potassium 3.8 mmol/L (3.5-5.1); Sodium 142 mmol/L (136-145); Total Bilirubin 0.2 mg/dL (0.15-1.2); Total Protein 6.2 g/dL (6.6-8.7)
== END 2024-11-15 23:59 | disposition home or self-care (01) ==
LOC: ONCMED 10:44
PROVIDERS: Visit Provider Internal Medicine Medical Oncology
DX: C91.00 Acute lymphoblastic leukemia not having achieved remission (principal); D69.6 Thrombocytopenia, unspecified; K08.9 Disorder of teeth and supporting structures, unspecified; Z79.899 Other long term (current) drug therapy
CPT/HCPCS: 36415; 80053; 85025

== ENCOUNTER 2024-11-18 10:18 | Day surgery (SDC) | payer MEDICAID, SELFPAY ==
[2024-11-18] VITALS (10 sets, daily range): BP systolic 121–137; BP diastolic 68–75; PULSE 84–101; RESP 15–18; TEMP 36.1–36.8; O2SAT 94–98; BMI 24.3
--- NOTE | 2024-11-18 10:25 | SC_ITS ---
WS: [id number] C-arm FL for CVA [id number] REASON FOR EXAM: Port placement FINDINGS: Chemotherapy infusion port in place over the right chest. Infusion catheter is trans right jugular with the tip in the distal SVC. No pneumothorax. SC/C-arm FL for CVA [id number] IMPRESSION: Placement of right infusion port and catheter as above.
--- NOTE | 2024-11-18 10:50 | ANES.PREANE2 ---
Pre-Anesthetic Assessment Height/Weight: Height 6 ft Weight 179 lb Temp Pulse Resp BP Pulse Ox O2 Del Method 98.3 F 93 18 121/72 97 Room Air 11/18/24 10:36 11/18/24 10:36 11/18/24 10:36 11/18/24 10:36 11/18/24 10:36 11/18/24 10:47 Preop Diagnosis: Leukemia Operation Date: 11/18/24 12:00 Proposed Procedures p Portacath Placement 65785 C91.00(Not Applicable) - Jorge Serrano MD Was Beta Mary taken within 24 hours: N/A Was Clonidine taken within 24 hours: N/A Last intake: Intake Last Liquid Date 11/17/24 Last Liquid Time 23:00 Last Solid Date 11/17/24 Last Solid Time 23:00 Social No alcohol and No tobacco Exam alert, oriented x 3, clear to auscultation bilaterally and regular rate & rhythm Airway Submandibular: within normal limits Cervical ROM: within normal limits Mallampati: Class II Comments: Comments: Very poor dentition, denies any loose teeth currently Anesthetic Plan ASA status: 3 Anesthesia: MAC Other: No prior issues with anesthesia NPO since yesterday evening Patient has leukemia, they want him on maintenance therapy for the next few years and this requires a port placement Patient states that he woke up with a scratchy, dry throat. Spit up some phlegm and a loose tooth came out with it. Denies any fevers/chills Labs from 11/04/2024 reviewed acceptable for procedure today Plan for MAC anesthesia Medications/Allergies Home Medications ?Medication ?Instructions ?Recorded ?Confirmed ?Last Taken ?Type polyethylene glycol 3350 17 4 g PO DAILY PRN Constipation 04/25/24 11/18/24 Unknown History gram/dose oral powder sennosides 8.6 mg tablet 8.6 mg PO BID PRN Constipation 04/25/24 11/18/24 Unknown History amoxicillin 875 mg-potassium 125 - 875 tab PO DAILY 11/04/24 11/15/24 11/17/24 History clavulanate 125 mg tablet hydrocodone 5 mg-acetaminophen 325 5 - 325 tab PO PRN PRN Pain, 11/04/24 11/15/24 Unknown History mg tablet Moderate sertraline 50 mg tablet 50 mg PO DAILY 11/04/24 11/15/24 11/17/24 History hydroxyzine HCl 25 mg tablet 25 mg PO DAILY 11/15/24 11/15/24 Unknown History methotrexate sodium 2.5 mg tablet 2.5 mg PO DAILY 11/15/24 11/15/24 11/17/24 History morphine 15 mg tablet,extended 15 mg PO DAILY 11/15/24 11/15/24 11/17/24 History release prednisone 50 mg tablet 50 mg PO DAILY 11/15/24 11/15/24 11/17/24 History Allergies Allergy/AdvReac Type Severity Reaction Status Date / Time No Known Allergies Allergy Verified 11/15/24 13:55 [facility] Anesthesia Medical History Pancytopenia Acute leukemia Poor dentition Social History Smoking and tobacco/nicotine status: never used tobacco/nicotine Data Anesthesia Cardiac Studies: No Data to Display
[2024-11-18] MEDS: sodium chloride 0.9% 1,000 ML 30 ML IV (10:51)
[2024-11-18] MEDS: fentaNYL 50 mcg/mL INJ 2mL IVP (11:04)
--- NOTE | 2024-11-18 11:48 | W.PM.OPSUD ---
Surgery/Procedure H&P Update DATE OF PROCEDURE: November 18, 2024 DATE H&P PERFORMED: 11/15/24 H&P UPDATE INFORMATION: I have reviewed H&P completed within last 30 days, I have examined patient prior to procedure and No changes to prior documentation PREOP DIAGNOSIS: Leukemia PLANNED PROCEDURE: Operation Date: 11/18/24 12:00 Proposed Procedures p Portacath Placement 59246 C91.00(Not Applicable) - Jorge Serrano MD
[2024-11-18] MEDS: ceFAZolin 2,000 mg SDV 2000 MG IVP (12:00)
[2024-11-18] MEDS: heparin, porcine 1,000 unit/mL INJ 10 mL 10000 UNIT IRRIGATION (12:22)
[2024-11-18] MEDS: BUPivacaine 0.25% INJ 10 mL INJECTION (12:50)
[2024-11-18] MEDS: lidocaine-epi 1% 20 mL INJ 10 ML INJECTION (12:50)
--- NOTE | 2024-11-18 13:02 | PM.OP ---
Operative Report Date of procedure: November 18, 2024 Pre-op diagnosis: Leukemia Post-op diagnosis: same Post-op findings: Tip of catheter at atriocaval junction confirmed with intraoperative fluoroscopy Procedure done: Port placement. Intraoperative fluoroscopy interpretation. Implants: Port-A-Cath Specimens removed/disposition: N/A Pathology: none sent Surgeon: Jorge Serrano MD Contact Manager: N/A Anesthesia: MAC Estimated blood loss (mL): 10 Complications: N/A Findings: Port placed on right chest. Internal jugular vein accessed using ultrasound. Tip of catheter at atriocaval junction confirmed with intraoperative fluoroscopy. Brief History: 24-year-old male who presented for port placement. History of leukemia. Discussed risk and benefits and patient agreed to proceed with port placement. Procedure: Patient was brought into the operating room and a timeout was carried out. Procedure was done under MAC. Patient was placed supine with the arms tucked and in Trendelenburg. Patient was prepped and draped in the usual sterile fashion. Using ultrasound guidance the right internal jugular vein was accessed. A guidewire was then placed down to the atriocaval junction using fluoroscopy. The finder needle was removed and the guidewire was secured. I then turned my attention to creating a pocket over the right chest. Make sure to locally infiltrated using plain lidocaine and bupivacaine at the site of the pocket and throughout the tunnel site. I confirmed adequate hemostasis at the pocket. I then proceeded to place the port that was already preassembled and flushed with heparinized saline and the chest pocket. I tunneled the catheter from the chest to the neck at the site where I accessed the internal jugular vein. I measured and adjusted the length of the catheter so it would reach the atrial caval junction. At this point, I used a dilator to dilate the tract into the internal jugular vein using fluoroscopy. I removed the guidewire and proceeded to thread the central venous catheter through the introducer. In the process, I removed the sheath as a completely pushed the catheter into the internal jugular vein. I then confirmed adequate placement of the catheter by performing intraoperative interpretation of fluoroscopy. The tip of the catheter was confirmed to be placed in the atriocaval junction. There were no kinks noted throughout the trajectory of the catheter. I then proceeded to test the port and was satisfied with its functionality. I proceeded to flushed the catheter without any issues. I then hep-locked the port. Skin was closed using deep dermal 3-0 Vicryl, subcuticular 4-0 Monocryl, and Dermabond. Patient was then transferred to PACU without any complications.
--- NOTE | 2024-11-18 14:09 | ANE.PACU2 ---
Inpatient post-anesthesia follow up: Airway intact: Yes Vital signs: Temperature 97.5 F Pulse Rate 84 Respiratory Rate 18 Blood Pressure 129/73 Pulse Oximetry 96 Oxygen Delivery Me thod Room Air Oxygen Flow Rate Fraction of Inspir ed Oxygen Hydration adequate: Yes Nausea and vomiting: No Pain level: 1 Mental status: Baseline
== END 2024-11-18 14:09 | disposition home or self-care (01) ==
PROVIDERS: Visit Provider Student in an Organized Health Care Education/Training Program
PROC: (CPT 36561; principal; 2024-11-18 12:00)
DX: C91.00 Acute lymphoblastic leukemia not having achieved remission (principal); K08.89 Other specified disorders of teeth and supporting structures; Z79.899 Other long term (current) drug therapy
CPT/HCPCS: 36561; 76000; 77001; C1788; J0690; J1644; J2704; J3010; J3490; J7030

== ENCOUNTER → 2024-12-02 09:29 | Outpatient (BNVA) | payer MEDICAID, SELFPAY | PROVIDERS: Visit Provider Student in an Organized Health Care Education/Training Program | DX: Z95.828 Presence of other vascular implants and grafts (principal) | CPT/HCPCS: 99213 ==

== ENCOUNTER 2024-12-10 09:08 | Oncology outpatient (recurring) (ONCR) | payer MEDICAID, SELFPAY ==
[2024-12-10 09:45] LABS: Basophils # 0.1 10^3/uL (0.0-0.1); Basophils % 1.4 %; Eosinophils # 0.2 10^3/uL (0.0-0.8); Eosinophils % 6.2 %; Hematocrit 39.4 % (37-53); Lymphocytes # 0.8 10^3/uL (0.8-4.8); Lymphocytes % 20.9 %; Mean Corpuscular Hemoglobin 30.9 pg (27-33); Mean Corpuscular Volume 93.6 fl (82-101); Mean Platelet Volume 9.5 fL (7.4-10.4); Monocytes # 0.6 10^3/uL (0.2-0.9); Monocytes % 16.5 %; Neutrophils # 1.97 10^3/uL (1.8-7.7); Neutrophils % 53.4 %; Nucleated Red Blood Cells % 0 %; Platelet Count 269 10^3/cmm (157-399); Red Blood Count 4.21 10^6/uL (3.85-5.65); White Blood Count 3.69 10^3/uL (3.29-11.43)
[2024-12-10 10:05] LABS: Alanine Aminotransferase 72 U/L (0-41); Albumin Level 4.4 g/dL (3.5-5.2); Alkaline Phosphatase 132 U/L (40-130); Aspartate Amino Transferase 35 U/L (0-40); Blood Urea Nitrogen 5 mg/dL (6-20); Calcium 9.3 mg/dL (8.5-10.5); Carbon Dioxide 27 mmol/L (22-29); Chloride 101 mmol/L (98-107); Globulin 1.7 g/dL (1.3-4.6); Glomerular Filtration Rate 202.6 mL/min (90-130); Glucose 91 mg/dL (65-115); Osmolality Calculated 287 mOsm/kg (285-295); Sodium 140 mmol/L (136-145); Total Bilirubin 0.2 mg/dL (0.15-1.2); Total Protein 6.1 g/dL (6.6-8.7)
[2024-12-10 10:28] LABS: Slide Review Slide Review Perform
[2024-12-10] MEDS: sodium chloride 0.9% 250 ML 75 ML IV (11:12)
[2024-12-10] MEDS: ondansetron 2 mg/ML SDV 2 mL 8 MG IVP (11:13)
[2024-12-10 12:28] VITALS: BP 114/77; PULSE 89; RESP 18; TEMP 37.1; O2SAT 99
== END 2024-12-16 23:59 | disposition home or self-care (01) ==
PROVIDERS: Visit Provider Internal Medicine Medical Oncology
DX: Z53.9 Procedure and treatment not carried out, unspecified reason (principal); C91.01 Acute lymphoblastic leukemia, in remission; Z79.899 Other long term (current) drug therapy; Z92.21 Personal history of antineoplastic chemotherapy
CPT/HCPCS: 80053; 85025; 96375; 96413; 99214; J2405; J7050; J9370

== ENCOUNTER 2025-01-14 08:15 | Oncology outpatient (recurring) (ONCR) | payer MEDICAID, SELFPAY ==
[2025-01-07 08:42] LABS: Basophils % 1.1 %; Eosinophils # 0.3 10^3/uL (0.0-0.8); Eosinophils % 15.6 %; Hematocrit 39.9 % (37-53); Lymphocytes # 0.6 10^3/uL (0.8-4.8); Lymphocytes % 31.3 %; Mean Corpuscular HGB Conc 30.6 g/dL (30-55); Mean Corpuscular Volume 101.3 fl (82-101); Mean Platelet Volume 9.6 fL (7.4-10.4); Monocytes # 0.1 10^3/uL (0.2-0.9); Monocytes % 6.7 %; Neutrophils % 44.2 %; Nucleated Red Blood Cells % 0 %; Platelet Count 289 10^3/cmm (157-399); Red Blood Count 3.94 10^6/uL (3.85-5.65); Red Cell Distribution Width 16.1 % (12.1-15.1); White Blood Count 1.79 10^3/uL (3.29-11.43)
[2025-01-07 09:04] LABS: Alanine Aminotransferase 198 U/L (0-41); Albumin Level 4.7 g/dL (3.5-5.2); Alkaline Phosphatase 158 U/L (40-130); Anion Gap 16.4 (5-19); Aspartate Amino Transferase 103 U/L (0-40); Blood Urea Nitrogen 11 mg/dL (6-20); Calcium 9.1 mg/dL (8.5-10.5); Carbon Dioxide 27 mmol/L (22-29); Chloride 104 mmol/L (98-107); Globulin 1.9 g/dL (1.3-4.6); Glomerular Filtration Rate 202.6 mL/min (90-130); Glucose 103 mg/dL (65-115); Osmolality Calculated 296 mOsm/kg (285-295); Potassium 4.4 mmol/L (3.5-5.1); Sodium 143 mmol/L (136-145); Total Bilirubin 0.9 mg/dL (0.15-1.2); Total Protein 6.6 g/dL (6.6-8.7)
[2025-01-07 09:10] LABS: Neutrophils # 0.79 10^3/uL (1.8-7.7)
[2025-01-07 09:11] LABS: Slide Review Slide Review Perform
[2025-01-07] MEDS: sodium chloride 0.9% 250 ML 75 ML IV (10:19)
[2025-01-07] MEDS: ondansetron 2 mg/ML SDV 2 mL 8 MG IVP (10:22)
[2025-01-07 11:30] VITALS: BP 134/82; PULSE 79; RESP 16; TEMP 36.3; O2SAT 98
[2025-01-14 08:19] LABS: Eosinophils # 0.1 10^3/uL (0.0-0.8); Eosinophils % 7.3 %; Hematocrit 38.3 % (37-53); Lymphocytes # 0.3 10^3/uL (0.8-4.8); Lymphocytes % 30.2 %; Mean Corpuscular HGB Conc 31.6 g/dL (30-55); Mean Corpuscular Hemoglobin 30.6 pg (27-33); Mean Platelet Volume 10.2 fL (7.4-10.4); Monocytes # 0.1 10^3/uL (0.2-0.9); Monocytes % 11.5 %; Neutrophils % 47.9 %; Nucleated Red Blood Cells % 2.1 %; Platelet Count 162 10^3/cmm (157-399); Red Blood Count 3.95 10^6/uL (3.85-5.65); Red Cell Distribution Width 16.6 % (12.1-15.1); White Blood Count 0.96 10^3/uL (3.29-11.43)
[2025-01-14 08:32] LABS: Neutrophils # 0.46 10^3/uL (1.8-7.7); Slide Review Slide Review Perform
[2025-01-14 08:44] LABS: Alanine Aminotransferase 343 U/L (0-41); Albumin Level 4.2 g/dL (3.5-5.2); Alkaline Phosphatase 109 U/L (40-130); Anion Gap 16.2 (5-19); Aspartate Amino Transferase 150 U/L (0-40); Blood Urea Nitrogen 13 mg/dL (6-20); Calcium 9.1 mg/dL (8.5-10.5); Carbon Dioxide 31 mmol/L (22-29); Chloride 93 mmol/L (98-107); Creatinine Clr Calc Pharmacy 213.7807; Globulin 1.9 g/dL (1.3-4.6); Glomerular Filtration Rate 164.2 mL/min (90-130); Glucose 85 mg/dL (65-115); Osmolality Calculated 281 mOsm/kg (285-295); Potassium 4.2 mmol/L (3.5-5.1); Sodium 136 mmol/L (136-145); Total Bilirubin 2.8 mg/dL (0.15-1.2); Total Protein 6.1 g/dL (6.6-8.7)
== END 2025-01-15 23:59 | disposition home or self-care (01) ==
PROVIDERS: Visit Provider Internal Medicine Medical Oncology
DX: Z53.9 Procedure and treatment not carried out, unspecified reason; C91.01 Acute lymphoblastic leukemia, in remission; D70.9 Neutropenia, unspecified; Z92.21 Personal history of antineoplastic chemotherapy; Z79.899 Other long term (current) drug therapy
CPT/HCPCS: 80053; 85025; 96375; 96413; 99214; J2405; J7050; J9370

== ENCOUNTER 2025-02-04 09:00 | Oncology outpatient (recurring) (ONCR) | payer MEDICAID, SELFPAY ==
[2025-01-28 12:36] LABS: Basophils % 1.2 %; Eosinophils # 0.1 10^3/uL (0.0-0.8); Eosinophils % 2.1 %; Hematocrit 38.5 % (37-53); Lymphocytes # 0.9 10^3/uL (0.8-4.8); Lymphocytes % 25.3 %; Mean Corpuscular HGB Conc 32.7 g/dL (30-55); Mean Corpuscular Hemoglobin 31.2 pg (27-33); Mean Corpuscular Volume 95.3 fl (82-101); Monocytes # 0.9 10^3/uL (0.2-0.9); Monocytes % 25.6 %; Neutrophils # 1.53 10^3/uL (1.8-7.7); Neutrophils % 44.9 %; Nucleated Red Blood Cells % 0 %; Platelet Count 264 10^3/cmm (157-399); Red Blood Count 4.04 10^6/uL (3.85-5.65)
[2025-01-28 12:53] LABS: Alanine Aminotransferase 76 U/L (0-41); Albumin Level 4.3 g/dL (3.5-5.2); Alkaline Phosphatase 144 U/L (40-130); Aspartate Amino Transferase 32 U/L (0-40); Blood Urea Nitrogen 7 mg/dL (6-20); Carbon Dioxide 26 mmol/L (22-29); Chloride 104 mmol/L (98-107); Creatinine Clr Calc Pharmacy 182.4128; Globulin 1.9 g/dL (1.3-4.6); Glomerular Filtration Rate 137.4 mL/min (90-130); Glucose 95 mg/dL (65-115); Osmolality Calculated 290 mOsm/kg (285-295); Sodium 141 mmol/L (136-145); Total Bilirubin 0.4 mg/dL (0.15-1.2); Total Protein 6.2 g/dL (6.6-8.7)
[2025-02-04 10:12] LABS: Basophils % 1.1 %; Eosinophils # 0.1 10^3/uL (0.0-0.8); Eosinophils % 2.9 %; Hematocrit 36.8 % (37-53); Lymphocytes # 0.9 10^3/uL (0.8-4.8); Lymphocytes % 31.8 %; Mean Corpuscular HGB Conc 33.7 g/dL (30-55); Mean Corpuscular Hemoglobin 31.4 pg (27-33); Mean Corpuscular Volume 93.2 fl (82-101); Mean Platelet Volume 10.5 fL (7.4-10.4); Neutrophils % 28.5 %; Nucleated Red Blood Cells % 0 %; Platelet Count 158 10^3/cmm (157-399); Red Blood Count 3.95 10^6/uL (3.85-5.65); Red Cell Distribution Width 19.5 % (12.1-15.1); White Blood Count 2.77 10^3/uL (3.29-11.43)
[2025-02-04 10:28] LABS: Alanine Aminotransferase 33 U/L (0-41); Albumin Level 4.1 g/dL (3.5-5.2); Alkaline Phosphatase 116 U/L (40-130); Aspartate Amino Transferase 35 U/L (0-40); Blood Urea Nitrogen 9 mg/dL (6-20); Calcium 9.3 mg/dL (8.5-10.5); Carbon Dioxide 26 mmol/L (22-29); Chloride 102 mmol/L (98-107); Globulin 2.3 g/dL (1.3-4.6); Glomerular Filtration Rate 137.4 mL/min (90-130); Glucose 89 mg/dL (65-115); Osmolality Calculated 284 mOsm/kg (285-295); Sodium 138 mmol/L (136-145); Total Bilirubin 0.4 mg/dL (0.15-1.2); Total Protein 6.4 g/dL (6.6-8.7)
[2025-02-04 10:40] LABS: Anion Gap 14.2 (5-19); Potassium 4.2 mmol/L (3.5-5.1)
[2025-02-04 10:43] LABS: Neutrophils # 0.79 10^3/uL (1.8-7.7); Slide Review Slide Review Perform
--- NOTE | 2025-02-04 11:02 | PC.NURSE ---
1100- Reviewed todays -01/05/25 labs results- critical ANC 0.79/ low WBC with Dr. Ruvalcaba. Per Dr. Ruvalcaba, patient needs to continue with receiving treatment today due to being delayed too long. Dr. Ruvalcaba states, Vincristine does nothing to the WBD/ ANC levels, continue treatment today. Treatment will be ordered as stated per Dr. Ruvalcaba, approving chemo prior to having patient's labs drawn/ reviewed today. Labs reviewed with patient/family and copies provided. Patient verbalized understanding that per Dr. Ruvalcaba he needed treatment today, due to too long delay.- Lowell Rutherford
[2025-02-04] MEDS: sodium chloride 0.9% 250 ML 75 ML IV (11:16)
[2025-02-04] MEDS: ondansetron 2 mg/ML SDV 2 mL 8 MG IVP (11:16)
[2025-02-04 12:30] VITALS: BP 116/78; PULSE 58; O2SAT 98
== END 2025-02-15 23:59 | disposition home or self-care (01) ==
PROVIDERS: Visit Provider Internal Medicine Medical Oncology
DX: Z53.9 Procedure and treatment not carried out, unspecified reason; Z51.11 Encounter for antineoplastic chemotherapy; C91.01 Acute lymphoblastic leukemia, in remission; Z79.899 Other long term (current) drug therapy; Z79.52 Long term (current) use of systemic steroids; Z95.828 Presence of other vascular implants and grafts; H66.90 Otitis media, unspecified, unspecified ear
CPT/HCPCS: 80053; 85025; 96375; 96413; 99213; 99214; J2405; J7050; J9370

== ENCOUNTER 2025-03-04 10:15 | Oncology outpatient (recurring) (ONCR) | payer MEDICAID, SELFPAY ==
[2025-02-18 11:56] LABS: Basophils % 0.4 %; Eosinophils # 0.1 10^3/uL (0.0-0.8); Eosinophils % 2.7 %; Hematocrit 33.3 % (37-53); Lymphocytes # 0.6 10^3/uL (0.8-4.8); Lymphocytes % 22.6 %; Mean Corpuscular HGB Conc 31.2 g/dL (30-55); Mean Corpuscular Hemoglobin 32.5 pg (27-33); Mean Corpuscular Volume 104.1 fl (82-101); Mean Platelet Volume 9.5 fL (7.4-10.4); Monocytes # 0.2 10^3/uL (0.2-0.9); Monocytes % 9.3 %; Neutrophils # 1.62 10^3/uL (1.8-7.7); Neutrophils % 63.1 %; Nucleated Red Blood Cells % 0 %; Platelet Count 222 10^3/cmm (157-399); Red Cell Distribution Width 17.9 % (12.1-15.1); White Blood Count 2.57 10^3/uL (3.29-11.43)
[2025-02-18 12:16] LABS: Alanine Aminotransferase 59 U/L (0-41); Albumin Level 4.2 g/dL (3.5-5.2); Alkaline Phosphatase 110 U/L (40-130); Anion Gap 14.9 (5-19); Aspartate Amino Transferase 38 U/L (0-40); Blood Urea Nitrogen 6 mg/dL (6-20); Calcium 9.3 mg/dL (8.5-10.5); Carbon Dioxide 30 mmol/L (22-29); Chloride 100 mmol/L (98-107); Globulin 1.9 g/dL (1.3-4.6); Glomerular Filtration Rate 137.4 mL/min (90-130); Glucose 104 mg/dL (65-115); Osmolality Calculated 290 mOsm/kg (285-295); Potassium 3.9 mmol/L (3.5-5.1); Sodium 141 mmol/L (136-145); Total Bilirubin 0.9 mg/dL (0.15-1.2); Total Protein 6.1 g/dL (6.6-8.7)
[2025-02-18 12:33] LABS: Slide Review Slide Review Perform
[2025-03-04 11:03] LABS: Basophils % 0.9 %; Eosinophils # 0.3 10^3/uL (0.0-0.8); Eosinophils % 26.4 %; Hematocrit 31.5 % (37-53); Lymphocytes # 0.5 10^3/uL (0.8-4.8); Lymphocytes % 41.8 %; Mean Corpuscular HGB Conc 32.1 g/dL (30-55); Mean Corpuscular Hemoglobin 33.6 pg (27-33); Mean Corpuscular Volume 104.7 fl (82-101); Mean Platelet Volume 11.3 fL (7.4-10.4); Monocytes # 0.1 10^3/uL (0.2-0.9); Monocytes % 6.4 %; Neutrophils % 24.5 %; Nucleated Red Blood Cells % 0 %; Platelet Count 118 10^3/cmm (157-399); Red Blood Count 3.01 10^6/uL (3.85-5.65); Red Cell Distribution Width 17.9 % (12.1-15.1)
[2025-03-04 11:20] LABS: Neutrophils # 0.27 10^3/uL (1.8-7.7)
[2025-03-04 11:21] LABS: Slide Review Slide Review Perform
[2025-03-04 11:31] LABS: Alanine Aminotransferase 154 U/L (0-41); Albumin Level 4.5 g/dL (3.5-5.2); Alkaline Phosphatase 138 U/L (40-130); Aspartate Amino Transferase 70 U/L (0-40); Blood Urea Nitrogen 8 mg/dL (6-20); Calcium 9.1 mg/dL (8.5-10.5); Carbon Dioxide 24 mmol/L (22-29); Chloride 103 mmol/L (98-107); Creatinine Clr Calc Pharmacy 205.6972; Glomerular Filtration Rate 162.9 mL/min (90-130); Glucose 110 mg/dL (65-115); Iron 113 ug/dL (59-158); Osmolality Calculated 287 mOsm/kg (285-295); Sodium 139 mmol/L (136-145); Total Bilirubin 0.9 mg/dL (0.15-1.2); Total Iron Binding Capacity 209 mcg/dl; Total Protein 6.5 g/dL (6.6-8.7); Unsaturated Iron Binding 96 ug/dL (112-347)
[2025-03-04 11:47] LABS: Vitamin B12 690 pg/mL (232-1245)
[2025-03-04] MEDS: sodium chloride 0.9% 250 ML 75 ML IV (11:57)
[2025-03-04] MEDS: ondansetron 2 mg/ML SDV 2 mL 8 MG IVP (11:59)
[2025-03-04 12:00] LABS: Ferritin 2638 ng/mL (30-400)
[2025-03-04 12:07] LABS: Folate Level 7.6 ng/mL (4.5-32.2)
[2025-03-04 13:25] VITALS: BP 107/66; PULSE 76; RESP 17; TEMP 36.3; O2SAT 98
== END 2025-03-17 23:59 | disposition home or self-care (01) ==
PROVIDERS: Visit Provider Internal Medicine Medical Oncology
DX: Z53.9 Procedure and treatment not carried out, unspecified reason; C91.00 Acute lymphoblastic leukemia not having achieved remission; D70.1 Agranulocytosis secondary to cancer chemotherapy; T45.1X5A Adverse effect of antineoplastic and immunosuppressive drugs, initial encounter; D69.6 Thrombocytopenia, unspecified; Z79.52 Long term (current) use of systemic steroids; Z95.828 Presence of other vascular implants and grafts; Z79.899 Other long term (current) drug therapy
CPT/HCPCS: 36591; 80053; 82607; 82728; 82746; 83540; 83550; 85025; 96375; 96413; 99213; 99214; J2405; J7050; J9370

== ENCOUNTER → 2025-03-13 10:28 | Outpatient (BNVA) | payer MEDICAID, SELFPAY | PROVIDERS: Visit Provider Podiatrist Foot & Ankle Surgery | DX: L60.0 Ingrowing nail (principal); L03.115 Cellulitis of right lower limb | CPT/HCPCS: 11730; 99204 ==

== ENCOUNTER 2025-04-01 13:00 | Oncology outpatient (recurring) (ONCR) | payer MEDICAID, SELFPAY ==
[2025-03-18 10:17] LABS: Hematocrit 32.3 % (37-53); Hemoglobin 10.10 g/dL (11.27-16.99); Mean Corpuscular HGB Conc 31.3 g/dL (30-55); Mean Corpuscular Hemoglobin 33.2 pg (27-33); Mean Corpuscular Volume 106.3 fl (82-101); Nucleated Red Blood Cells % 0 %; Platelet Count 289 10^3/cmm (157-399); Red Blood Count 3.04 10^6/uL (3.85-5.65); White Blood Count 3.31 10^3/uL (3.29-11.43)
[2025-03-18 10:36] LABS: Alanine Aminotransferase 90 U/L (0-41); Albumin Level 4.0 g/dL (3.5-5.2); Alkaline Phosphatase 108 U/L (40-130); Anion Gap 15.8 (5-19); Aspartate Amino Transferase 42 U/L (0-40); Blood Urea Nitrogen 7 mg/dL (6-20); Calcium 9.2 mg/dL (8.5-10.5); Carbon Dioxide 27 mmol/L (22-29); Chloride 103 mmol/L (98-107); Creatinine Clr Calc Pharmacy 205.6972; Globulin 1.8 g/dL (1.3-4.6); Glucose 132 mg/dL (65-115); Iron 73 ug/dL (59-158); Osmolality Calculated 294 mOsm/kg (285-295); Potassium 3.8 mmol/L (3.5-5.1); Sodium 142 mmol/L (136-145); Total Iron Binding Capacity 196 mcg/dl; Total Protein 5.8 g/dL (6.6-8.7); Unsaturated Iron Binding 123 ug/dL (112-347)
[2025-03-18 10:49] LABS: Ferritin 2387 ng/mL (30-400)
[2025-03-18 10:50] LABS: Vitamin B12 1662 pg/mL (232-1245)
[2025-03-18 10:51] LABS: Slide Review Slide Review Perform
[2025-04-01 13:10] LABS: Hematocrit 33.2 % (37-53); Hemoglobin 11.00 g/dL (11.27-16.99); Mean Corpuscular HGB Conc 33.1 g/dL (30-55); Mean Corpuscular Hemoglobin 35.3 pg (27-33); Mean Corpuscular Volume 106.4 fl (82-101); Nucleated Red Blood Cells % 0 %; Platelet Count 227 10^3/cmm (157-399); Red Blood Count 3.12 10^6/uL (3.85-5.65); White Blood Count 3.77 10^3/uL (3.29-11.43)
[2025-04-01 13:28] LABS: Alanine Aminotransferase 51 U/L (0-41); Albumin Level 4.2 g/dL (3.5-5.2); Alkaline Phosphatase 101 U/L (40-130); Anion Gap 16.6 (5-19); Aspartate Amino Transferase 37 U/L (0-40); Blood Urea Nitrogen 5 mg/dL (6-20); Calcium 9.0 mg/dL (8.5-10.5); Carbon Dioxide 28 mmol/L (22-29); Chloride 103 mmol/L (98-107); Creatinine Clr Calc Pharmacy 246.8366; Globulin 1.8 g/dL (1.3-4.6); Glucose 99 mg/dL (65-115); Osmolality Calculated 295 mOsm/kg (285-295); Potassium 3.6 mmol/L (3.5-5.1); Slide Review Slide Review Perform; Sodium 144 mmol/L (136-145); Total Protein 6.0 g/dL (6.6-8.7)
[2025-04-01] MEDS: ondansetron 2 mg/ML SDV 2 mL 8 MG IVP (15:01)
[2025-04-01 16:01] VITALS: BP 124/76; PULSE 71; RESP 16; TEMP 36.2; O2SAT 98
== END 2025-04-17 23:59 | disposition home or self-care (01) ==
PROVIDERS: Visit Provider Internal Medicine Medical Oncology
DX: Z51.11 Encounter for antineoplastic chemotherapy; C91.01 Acute lymphoblastic leukemia, in remission; Z79.899 Other long term (current) drug therapy; Z53.9 Procedure and treatment not carried out, unspecified reason
CPT/HCPCS: 80053; 82607; 82728; 82746; 83540; 83550; 85025; 96375; 96413; 99214; J2405; J7050; J9370

== ENCOUNTER 2025-04-08 15:46 | Emergency (ER) | payer MEDICAID, SELFPAY ==
--- OUTSIDE RECORDS SUMMARY | 2025-02-28 23:59 | XMS_ITS | Continuity of Care Document ---
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 Intellectual disability Active Condition Procedure carried out on subject (situation) Diagnosis Adverse reaction to drug (disorder) Diagnosis Anemia due to and following chemotherapy Diagnosis Intellectual disability Diagnosis Pain due to neoplastic disease (finding) Diagnosis Long-term current use of drug therapy (situation) Diagnosis Depressive disorder (disorder) Diagnosis Anxiety disorder (disorder) Diagnosis Backache (finding) Diagnosis Accident while engaged in household activity (finding) Diagnosis Procedure carried out on subject (situation) Diagnosis Cholelithiasis without obstruction (disorder) Diagnosis Periapical abscess (disorder) Diagnosis Low back pain (disorder) Diagnosis Increased aspartate transaminase level (finding) Diagnosis Place of occurrence of accident or poisoning (environment) Diagnosis Blood chemistry abnormal (finding) Diagnosis Cannabis misuse (finding) Diagnosis Hydrocephalic shunt catheter in situ (finding) Diagnosis Autistic disorder of childhood onset (disorder) Diagnosis Steatosis of liver (disorder) Diagnosis Dental caries (disorder) Diagnosis Bleeding from nose (finding) Diagnosis Hyperglycemia (disorder) Diagnosis Disorder of protein metabolism (disorder) Diagnosis 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) Diagnosis Hypoglycemia (disorder) Diagnosis Pain in scrotum (finding) Diagnosis Hepatosplenomegaly (disorder) Diagnosis Disease of male genital organ (disorder) Diagnosis Pain in right leg (finding) Diagnosis Pain in left leg (finding) Diagnosis History of - Disorder (context-dependent category) Diagnosis Fracture of tooth (disorder) Diagnosis Exposure to potentially harmful entity (event) Diagnosis [facility] ([facility]) Diagnosis Pain in throat (finding) Diagnosis Hypomagnesemia (disorder) Diagnosis Hypokalemia (disorder) Diagnosis Disease of teeth AND/OR supporting structures (disorder) Diagnosis Nausea (finding) Diagnosis Jump from [facility] (finding) Diagnosis Systemic infection (disorder) Diagnosis Fever (finding) Diagnosis Neutropenia (finding) Diagnosis Splenomegaly (disorder) Diagnosis Anemia (disorder) Diagnosis 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 Diagnosis Fever presenting with conditions classified elsewhere Active Diagnosis Encounter for antineoplastic chemotherapy Active Diagnosis Encounter for antineoplastic immunotherapy Active Diagnosis Medications Medication Details Route Status Patient Instructions Ordering Provider Order Date Source Sulfamethoxazole 800 MG / Trimethoprim 160 MG Oral Tablet [Bactrim] trimethoprim 160 mg = 1 Tablet(s), Oral, qM W F, # 30 Tablet(s), Refill(s) 1, Pharmacy: [facility], bedside delivery please, 182.8, cm, 07/19/24 13:21:00 CDT, Height (cm), kg, 07/19/24 13:21:00 CDT, Weight (kg), 72.1 Active 2023 [facility] morphine sulfate 15 MG Extended Release Oral Tablet [MS Contin] 15 mg = 1 Tablet(s), Oral, q12h, # 60 Tablet(s), Refill(s) 0, Pharmacy: [facility], 182.8, cm, 06/03/24 22:36:00 CDT, Height (cm), kg, 05/27/24 14:28:00 CDT, Weight (kg), 71.5 Active 2023 [facility] gabapentin 100 MG Oral Capsule 100 mg = 1 capsule(s), Oral, bid, # 60 capsule(s), Refill(s) 1, Pharmacy: [facility] 15, 182.8, cm, 06/03/24 22:36:00 CDT, Height (cm), kg, 05/27/24 14:28:00 CDT, Weight (kg), 71.5 Active 2023 [facility] Sulfamethoxazole 800 MG / Trimethoprim 160 MG Oral Tablet [Bactrim] trimethoprim 160 mg = 1 Tablet(s), Oral, qM W F, # 30 Tablet(s), Refill(s) 1, Pharmacy: [facility] 15, 182.8, cm, 06/03/24 22:36:00 CDT, Height (cm), kg, 05/27/24 14:28:00 CDT, Weight (kg), 71.5 Active 2023 [facility] Acetaminophen 325 MG / Hydrocodone Bitartrate 5 MG Oral Tablet 1 Tablet(s), Oral, q6h, Scheduled / PRN PRN Pain, Moderate, # 30 Tablet(s), Refill(s) 0, Pharmacy: [facility] 15, 182.8, cm, 06/03/24 22:36:00 CDT, Height (cm), kg, 05/27/24 14:28:00 CDT, Weight (kg), 71.5 Active 2023 [facility] Acyclovir 200 MG Oral Capsule 400 mg = 2 capsule(s), Oral, bid, # 60 capsule(s), Refill(s) 0, Pharmacy: [facility], 182.8, cm, 06/03/24 22:36:00 CDT, Height (cm), kg, 05/27/24 14:28:00 CDT, Weight (kg), 71.5 Active 2023 [facility] Fluconazole 200 MG Oral Tablet 400 mg = 2 Tablet(s), Oral, Daily, # 30 Tablet(s), Refill(s) 0, Pharmacy: [facility], bedside delivery (patient needs a refill prior to discharge), 182.8, cm, 06/03/24 22:36:00 CDT, Height (cm), kg, 05/27/24 14:28:00 CDT, Weight (kg), 71.5 Active 2023 [facility] Levofloxacin 500 MG Oral Tablet 500 mg = 1 Tablet(s), Oral, Daily, # 30 Tablet(s), Refill(s) 0, Pharmacy: [facility], bedside delivery, 182.8, cm, 06/03/24 22:36:00 CDT, Height (cm), kg, 05/27/24 14:28:00 CDT, Weight (kg), 71.5 Active 2023 [facility] Loperamide Hydrochloride 2 MG Oral Tablet See Instructions, 2 tabs at onset of diarrhea, then 1 Tablet after each loose stool up to 8 tabs daily not to exceed 8 tabs, or 16 mg, in 24 hours, # 30 Tablet(s), Refill(s) 1, Pharmacy: [facility], 196, cm, 05/13/24 11:09:00 CDT, Height (cm), kg, 05/13/24 10:27:00 CDT, Weight (kg), 66 Active 2023 [facility] ondansetron 8 MG Disintegrating Oral Tablet 8 mg = 1 Tablet(s), Oral, tid, as needed for nausea. allow tablet to dissolve on tongue., # 30 Tablet(s), Refill(s) 1, [facility], 196, cm, 05/13/24 11:09:00 CDT, Height (cm), kg, 05/13/24 10:27:00 CDT, Weight (kg), 66 Active 2023 [facility] morphine sulfate 15 MG Extended Release Oral Tablet [MS Contin] 15 mg = 1 Tablet(s), Oral, q12h, # 60 Tablet(s), Refill(s) 0, Pharmacy: [facility] 15, Meds to Bedside, 196, cm, 05/02/24 22:37:00 CDT, Height (cm), kg, 04/27/24 21:06:00 CDT, Weight (kg), 70 Active 2023 [facility] morphine sulfate 15 MG Extended Release Oral Tablet [MS Contin] 15 mg = 1 Tablet(s), Oral, q12h, # 60 Tablet(s), Refill(s) 0, Pharmacy: [facility], Meds to Bedside, 196, cm, 05/02/24 22:37:00 CDT, Height (cm), kg, 04/27/24 21:06:00 CDT, Weight (kg), 70 Active 2023 [facility] gabapentin 100 MG Oral Capsule 100 mg = 1 capsule(s), Oral, bid, # 60 capsule(s), Refill(s) 0, Pharmacy: [facility], 196, cm, 04/16/24 4:22:00 CDT, Height (cm), kg, 04/16/24 4:22:00 CDT, Weight (kg), 68.6 Active 2023 [facility] morphine sulfate 15 MG Extended Release Oral Tablet 15 mg = 1 Tablet(s), Oral, q12h, # 24 Tablet(s), Refill(s) 0, Pharmacy: [facility], 196, cm, 04/16/24 4:22:00 CDT, Height (cm), kg, 04/16/24 4:22:00 CDT, Weight (kg), 68.6 Active 2023 [facility] Results Order Name Results Value Reference Range Date Interpretation Comments Source REFERENCE LABS 6-Methylmerc aptopurine riboside 6.49 5.04 - 9.57 02/28 18:04 :00 [facility] REFERENCE LABS 6-Methylthio guanine riboside 2.82 2.70 - 5.84 02/28 18:04 :00 [facility] REFERENCE LABS TPMT3 Reviewed By See Comment 02/28 18:04 :00 Result Comment: RESULT: Jose L Bravo M.D., Ph.D. Test Performed by: [place] [address] Drafter Geophysical: Trista West Ph.D.; CLIA# [id number] [facility] REFERENCE LABS 6-Methylmerc aptopurine 4.64 3.00 - 6.66 02/28 18:04 :00 [facility] REFERENCE LABS TPMT Activity Profile, RBC Interp See Comment 02/28 18:04 :00 Result Comment: *Normal* In this whole blood sample, the profile of activity of thiopurine methyltransfe rase using three different substrates was normal or essentially normal. ------ADDITIO NAL INFORMATION-- ---- Liquid Chromatograph y-Tandem Mass Spectrometry (LC-MS/MS) This test was developed and its performance characteristi cs determined by [facility] in a manner consistent with CLIA requirements. This test has not been cleared or approved by the U.S. Food and Drug Administratio n. [facility] GENERAL CHEMISTRY Potassium 3.8 mmol/L 3.5 - 5.1 02/28 15:18 :00 [facility] GENERAL CHEMISTRY Sodium 140 mmol/L 136 - 145 02/28 15:18 :00 [facility] GENERAL CHEMISTRY Calcium 9.5 mg/dL 8.3 - 10.6 02/28 15:18 :00 [facility] GENERAL CHEMISTRY Chloride 102 mmol/L 98 - 107 02/28 15:18 :00 [facility] GENERAL CHEMISTRY Estimated GFR for Adults 134 mL/min/1.7 3m 02/28 15:18 :00 Interpretive Data: Changed to CKD-EPI 2020 on 2020. [facility] GENERAL CHEMISTRY Glucose Lvl 94 mg/dL 70 - 139 02/28 15:18 :00 [facility] GENERAL CHEMISTRY BUN 7 mg/dL 6 - 20 02/28 15:18 :00 [facility] GENERAL CHEMISTRY ALT-SGPT 179 U/L 10 - 50 02/28 15:18 :00 [facility] GENERAL CHEMISTRY Creatinine, standardized 0.6 mg/dL 0.7 - 1.2 02/28 15:18 :00 Interpretive Data: Vsiyih-kf-ngl e transgender patients on testosterone therapy should have results assessed using the male reference range. Yecy-ly-fuprs e transgender patients on hormone-modul ating therapy clinical judgment is advisedfor assessment. [facility] GENERAL CHEMISTRY AST-SGOT 95 U/L 02/28 15:18 :00 [facility] GENERAL CHEMISTRY Anion gap 15 mmol/L 0 - 20 02/28 15:18 :00 [facility] GENERAL CHEMISTRY CO2 27 mmol/L 20 - 31 02/28 15:18 :00 [facility] GENERAL CHEMISTRY Alkaline Phosphatase 136 U/L 40 - 129 02/28 15:18 :00 [facility] GENERAL CHEMISTRY Total Protein 6.1 g/dL 5.7 - 8.2 02/28 15:18 :00 [facility] GENERAL CHEMISTRY Albumin 3.9 g/dL 3.4 - 5.0 02/28 15:18 :00 [facility] GENERAL CHEMISTRY T Bili 1.14 mg/dL 0.30 - 1.20 02/28 15:18 :00 [facility] GENERAL CHEMISTRY Estimated GFR for peds Not Calculated mL/min/1.7 3m 02/28 15:18 :00 Interpretive Data: The estimated GFR was calculated using the Teddy barker Dorado equation (2009) . Reference: Pediatric GFR calculator at [employer] Website. [facility] HEMATOLOGY PROFILES MCH 33.8 pg 26.0 - 33.0 02/28 15:18 :00 [facility] HEMATOLOGY PROFILES MCV 104.3 fL 81.2 - 95.1 02/28 15:18 :00 [facility] HEMATOLOGY PROFILES RDW CV 17.2 % 11.8 - 15.6 02/28 15:18 :00 [facility] HEMATOLOGY PROFILES MCHC 32.4 g/dL 32.0 - 36.0 02/28 15:18 :00 [facility] HEMATOLOGY PROFILES HCT 31.5 % 38.8 - 50.0 02/28 15:18 :00 Interpretive Data: Bumkqb-la-nti e transgender patients on testosterone therapy should have results assessed using the male reference range. Wqnu-vi-onknc e transgender patients on hormone-modul ating therapy clinical judgment is advisedfor assessment. [facility] HEMATOLOGY PROFILES WBC 1.28 x10(9)/L 3.50 - 10.50 02/28 15:18 :00 [facility] HEMATOLOGY PROFILES MPV 10.5 8.0 - 12.0 02/28 15:18 :00 [facility] HEMATOLOGY PROFILES HGB 10.2 g/dL 13.5 - 17.5 02/28 15:18 :00 Interpretive Data: Bsvxxs-ht-tsb e transgender patients on testosterone therapy should have results assessed using the male reference range. Tohb-za-czajz e transgender patients on hormone-modul ating therapy clinical judgment is advisedfor assessment. [facility] HEMATOLOGY PROFILES RBC 3.02 x10(12)/L 4.32 - 5.72 02/28 15:18 :00 [facility] HEMATOLOGY PROFILES PLT 140 x10(9)/L 150 - 450 02/28 15:18 :00 [facility] HEMATOLOGY PROFILES RDW SD 64.5 fL 35.1 - 43.9 02/28 15:18 :00 [facility] HEMATOLOGY PROFILES Atypical Lymphs Manual 2.5 % 02/28 15:18 :00 [facility] HEMATOLOGY PROFILES Internal Review Yes (02/28/25 10:18 AM) 02/28 15:18 :00 [facility] HEMATOLOGY PROFILES Absolute Neutrophils Manual 0.36 x10(9)/L 1.70 - 7.00 02/28 15:18 :00 Result Comment: This result has been called to Carol Bland RN by [email or web address] on 02/28/2025 11:13:26, and has been read back. [facility] HEMATOLOGY PROFILES Abs Lymphocytes Manual 0.68 x10(9)/L 0.90 - 2.90 02/28 15:18 :00 [facility] HEMATOLOGY PROFILES Abs Atypical Lymphocytes Manual 0.03 x10(9)/L 0.00 - 0.11 02/28 15:18 :00 [facility] HEMATOLOGY PROFILES Basophils Manual 1.7 % 02/28 15:18 :00 [facility] HEMATOLOGY PROFILES Eosinophils Manual 14.0 % 02/28 15:18 :00 [facility] HEMATOLOGY PROFILES Monocytes Manual 0.8 % 02/28 15:18 :00 [facility] HEMATOLOGY PROFILES Abs Eosinophils Manual 0.18 x10(9)/L 0.05 - 0.50 02/28 15:18 :00 [facility] HEMATOLOGY PROFILES Abs Basophils Manual 0.02 x10(9)/L 0.00 - 0.30 02/28 15:18 :00 [facility] HEMATOLOGY PROFILES Lymphocytes Manual 52.9 % 02/28 15:18 :00 [facility] HEMATOLOGY PROFILES Neuts Manual 28.1 % 02/28 15:18 :00 [facility] HEMATOLOGY PROFILES Elliptocytes (Ovalocytes) 1+ (10-25%) *NA* (02/28/25 10:18 AM) 02/28 15:18 :00 [facility] HEMATOLOGY PROFILES Aniso 1+ (10-20%) *NA* (02/28/25 10:18 AM) 02/28 15:18 :00 [facility] HEMATOLOGY PROFILES Platelet Estimate Decreased *NA* (02/28/25 10:18 AM) 02/28 15:18 :00 [facility] HEMATOLOGY PROFILES Morphology Present *NA* (02/28/25 10:18 AM) 02/28 15:18 :00 [facility] HEMATOLOGY PROFILES Schistocytes 1+ (Rare-3%) *NA* (02/28/25 10:18 AM) 02/28 15:18 :00 [facility] HEMATOLOGY PROFILES Abs Monocytes Manual 0.01 x10(9)/L 0.30 - 0.90 02/28 15:18 :00 [facility] HEMATOLOGY PROFILES Path Review Smear Pathologis t Review of Smear Interpreta tion: Agree Interprete d by: Susy Barragan i, MD 02/28 15:18 :00 [facility] HEMATOLOGY PROFILES QA Review Agree (02/28/25 10:18 AM) 02/28 15:18 :00 [facility] GENERAL CHEMISTRY ALT-SGPT 26 U/L 10 - 50 11/12 15:55 :00 [facility] GENERAL CHEMISTRY Estimated GFR for Adults 132 mL/min/1.7 3m 11/12 15:55 :00 Interpretive Data: Changed to CKD-EPI 2020 on 2020. [facility] GENERAL CHEMISTRY BUN 9 mg/dL 6 - 20 11/12 15:55 :00 [facility] GENERAL CHEMISTRY Calcium 9.5 mg/dL 8.3 - 10.6 11/12 15:55 :00 [facility] GENERAL CHEMISTRY T Bili 0.44 mg/dL 0.30 - 1.20 11/12 15:55 :00 [facility] GENERAL CHEMISTRY Glucose Lvl 108 mg/dL 70 - 139 11/12 15:55 :00 [facility] GENERAL CHEMISTRY Total Protein 6.9 g/dL 5.7 - 8.2 11/12 15:55 :00 [facility] GENERAL CHEMISTRY Estimated GFR for peds Not Calculated mL/min/1.7 3m 11/12 15:55 :00 Interpretive Data: The estimated GFR was calculated using the B lucero Dorado equation (2009) . Reference: Pediatric GFR calculator at [employer] Website. [facility] GENERAL CHEMISTRY Creatinine, standardized 0.7 mg/dL 0.7 - 1.2 11/12 15:55 :00 Interpretive Data: Fnykag-is-wdx e transgender patients on testosterone therapy should have results assessed using the male reference range. Wdlf-qp-otvxx e transgender patients on hormone-modul ating therapy clinical judgment is advisedfor assessment. [facility] GENERAL CHEMISTRY Chloride 104 mmol/L 98 - 107 11/12 15:55 :00 [facility] GENERAL CHEMISTRY Sodium 140 mmol/L 136 - 145 11/12 15:55 :00 [facility] GENERAL CHEMISTRY AST-SGOT 27 U/L 11/12 15:55 :00 [facility] GENERAL CHEMISTRY Potassium 3.8 mmol/L 3.5 - 5.1 11/12 15:55 :00 [facility] GENERAL CHEMISTRY Albumin 4.6 g/dL 3.4 - 5.0 11/12 15:55 :00 [facility] GENERAL CHEMISTRY CO2 26 mmol/L 20 - 31 11/12 15:55 :00 [facility] GENERAL CHEMISTRY Alkaline Phosphatase 127 U/L 40 - 129 11/12 15:55 :00 [facility] GENERAL CHEMISTRY Anion gap 14 mmol/L 0 - 20 11/12 15:55 :00 [facility] HEMATOLOGY PROFILES RDW CV 14.5 % 11.8 - 15.6 11/12 15:55 :00 [facility] HEMATOLOGY PROFILES MCV 98.4 fL 81.2 - 95.1 11/12 15:55 :00 [facility] HEMATOLOGY PROFILES HCT 44.2 % 38.8 - 50.0 11/12 15:55 :00 Interpretive Data: Gpzfus-zj-zxz e transgender patients on testosterone therapy should have results assessed using the male reference range. Bcbe-mz-vhftq e transgender patients on hormone-modul ating therapy clinical judgment is advisedfor assessment. [facility] HEMATOLOGY PROFILES MCHC 31.4 g/dL 32.0 - 36.0 11/12 15:55 :00 [facility] HEMATOLOGY PROFILES MCH 31.0 pg 26.0 - 33.0 11/12 15:55 :00 [facility] HEMATOLOGY PROFILES MPV 9.5 8.0 - 12.0 11/12 15:55 :00 [facility] HEMATOLOGY PROFILES HGB 13.9 g/dL 13.5 - 17.5 11/12 15:55 :00 Interpretive Data: Wadiiq-ma-mwm e transgender patients on testosterone therapy should have results assessed using the male reference range. Fsun-tm-dqcvc e transgender patients on hormone-modul ating therapy clinical judgment is advisedfor assessment. [facility] HEMATOLOGY PROFILES RDW SD 52.6 fL 35.1 - 43.9 11/12 15:55 :00 [facility] HEMATOLOGY PROFILES PLT 256 x10(9)/L 150 - 450 11/12 15:55 :00 [facility] HEMATOLOGY PROFILES WBC 10.13 x10(9)/L 3.50 - 10.50 11/12 15:55 :00 [facility] HEMATOLOGY PROFILES RBC 4.49 x10(12)/L 4.32 - 5.72 11/12 15:55 :00 [facility] HEMATOLOGY PROFILES % Neutrophils 71.1 % 11/12 15:55 :00 [facility] HEMATOLOGY PROFILES Abs Eosinophils 0.54 x10(9)/L 0.05 - 0.50 11/12 15:55 :00 [facility] HEMATOLOGY PROFILES Absolute Nucleated RBCs 0.0 x10(9)/L 0.0 - 0.0 11/12 15:55 :00 Interpretive Data: Normal values not established in patients less than 18 years old. [facility] HEMATOLOGY PROFILES Abs Monocytes 0.86 x10(9)/L 0.30 - 0.90 11/12 15:55 :00 [facility] HEMATOLOGY PROFILES % Monocytes 8.5 % 11/12 15:55 :00 [facility] HEMATOLOGY PROFILES % Lymphocytes 13.2 % 11/12 15:55 :00 [facility] HEMATOLOGY PROFILES Abs Basophils 0.09 x10(9)/L 0.00 - 0.30 11/12 15:55 :00 [facility] HEMATOLOGY PROFILES Abs Lymphocytes 1.34 x10(9)/L 0.90 - 2.90 11/12 15:55 :00 [facility] HEMATOLOGY PROFILES Absolute Granulocytes 7.20 x10(9)/L 1.70 - 7.00 11/12 15:55 :00 [facility] HEMATOLOGY PROFILES % Nucleated RBCs 0.0 % 11/12 15:55 :00 [facility] HEMATOLOGY PROFILES % Basophils 0.9 % 11/12 15:55 :00 [facility] HEMATOLOGY PROFILES % Immature Granulocytes 1.00 % 0.02 - 0.42 11/12 15:55 :00 [facility] HEMATOLOGY PROFILES % Eosinophils 5.3 % 11/12 15:55 :00 [facility] HEMATOLOGY PROFILES Abs Immature Granulocytes 0.10 x10(9)/L 0.00 - 0.03 11/12 15:55 :00 [facility] GENERAL CHEMISTRY Alkaline Phosphatase 122 U/L 40 - 129 10/25 13:44 :00 [facility] GENERAL CHEMISTRY AST-SGOT 27 U/L 10/25 13:44 :00 [facility] GENERAL CHEMISTRY Albumin 3.9 g/dL 3.4 - 5.0 10/25 13:44 :00 [facility] GENERAL CHEMISTRY Glucose Lvl 78 mg/dL 70 - 139 10/25 13:44 :00 [facility] GENERAL CHEMISTRY Calcium 9.0 mg/dL 8.3 - 10.6 10/25 13:44 :00 [facility] GENERAL CHEMISTRY Total Protein 6.1 g/dL 5.7 - 8.2 10/25 13:44 :00 [facility] GENERAL CHEMISTRY ALT-SGPT 25 U/L 10 - 50 10/25 13:44 :00 [facility] GENERAL CHEMISTRY BUN 7 mg/dL 6 - 20 10/25 13:44 :00 [facility] GENERAL CHEMISTRY Creatinine, standardized 0.5 mg/dL 0.7 - 1.2 10/25 13:44 :00 Interpretive Data: Bajogx-ch-kdk e transgender patients on testosterone therapy should have results assessed using the male reference range. Rkfy-gw-oizxi e transgender patients on hormone-modul ating therapy clinical judgment is advisedfor assessment. [facility] GENERAL CHEMISTRY Sodium 141 mmol/L 136 - 145 10/25 13:44 :00 [facility] GENERAL CHEMISTRY Potassium 3.9 mmol/L 3.5 - 5.1 10/25 13:44 :00 [facility] GENERAL CHEMISTRY Estimated GFR for peds Not Calculated mL/min/1.7 3m 10/25 13:44 :00 Interpretive Data: The estimated GFR was calculated using the Teddy barker Dorado equation (2009) . Reference: Pediatric GFR calculator at [employer] Website. [facility] GENERAL CHEMISTRY Chloride 105 mmol/L 98 - 107 10/25 13:44 :00 [facility] GENERAL CHEMISTRY Estimated GFR for Adults 144 mL/min/1.7 3m 10/25 13:44 :00 Interpretive Data: Changed to CKD-EPI 2020 on 2020. [facility] GENERAL CHEMISTRY Anion gap 12 mmol/L 0 - 20 10/25 13:44 :00 [facility] GENERAL CHEMISTRY T Bili 0.30 mg/dL 0.30 - 1.20 10/25 13:44 :00 [facility] GENERAL CHEMISTRY CO2 28 mmol/L 20 - 31 10/25 13:44 :00 [facility] GENERAL CHEMISTRY LDH 251 U/L 120 - 246 10/25 13:44 :00 [facility] HEMATOLOGY PROFILES MCHC 30.1 g/dL 32.0 - 36.0 10/25 13:44 :00 [facility] HEMATOLOGY PROFILES MCH 32.4 pg 26.0 - 33.0 10/25 13:44 :00 [facility] HEMATOLOGY PROFILES RDW SD 65.1 fL 35.1 - 43.9 10/25 13:44 :00 [facility] HEMATOLOGY PROFILES RDW CV 16.1 % 11.8 - 15.6 10/25 13:44 :00 [facility] HEMATOLOGY PROFILES PLT 261 x10(9)/L 150 - 450 10/25 13:44 :00 [facility] HEMATOLOGY PROFILES HCT 35.2 % 38.8 - 50.0 10/25 13:44 :00 Interpretive Data: Mvsfee-en-jps e transgender patients on testosterone therapy should have results assessed using the male reference range. Iflo-yg-mrpoy e transgender patients on hormone-modul ating therapy clinical judgment is advisedfor assessment. [facility] HEMATOLOGY PROFILES WBC 4.24 x10(9)/L 3.50 - 10.50 10/25 13:44 :00 [facility] HEMATOLOGY PROFILES HGB 10.6 g/dL 13.5 - 17.5 10/25 13:44 :00 Interpretive Data: Rpifns-ys-zvk e transgender patients on testosterone therapy should have results assessed using the male reference range. Bqig-sv-cdrlw e transgender patients on hormone-modul ating therapy clinical judgment is advisedfor assessment. [facility] HEMATOLOGY PROFILES RBC 3.27 x10(12)/L 4.32 - 5.72 10/25 13:44 :00 [facility] HEMATOLOGY PROFILES MCV 107.6 fL 81.2 - 95.1 10/25 13:44 :00 [facility] HEMATOLOGY PROFILES MPV 9.5 8.0 - 12.0 10/25 13:44 :00 [facility] HEMATOLOGY PROFILES Eosinophils Manual 3.6 % 10/25 13:44 :00 [facility] HEMATOLOGY PROFILES Abs Lymphocytes Manual 0.53 x10(9)/L 0.90 - 2.90 10/25 13:44 :00 [facility] HEMATOLOGY PROFILES Absolute Neutrophils Manual 2.52 x10(9)/L 1.70 - 7.00 10/25 13:44 :00 [facility] HEMATOLOGY PROFILES Monocytes Manual 19.8 % 10/25 13:44 :00 [facility] HEMATOLOGY PROFILES Atypical Lymphs Manual 2.7 % 10/25 13:44 :00 [facility] HEMATOLOGY PROFILES Lymphocytes Manual 12.6 % 10/25 13:44 :00 [facility] HEMATOLOGY PROFILES Aniso 1+ (10-20%) *NA* (10/25/24 7:44 AM) 10/25 13:44 :00 [facility] HEMATOLOGY PROFILES Platelet Estimate Adequate *NA* (10/25/24 7:44 AM) 10/25 13:44 :00 [facility] HEMATOLOGY PROFILES Abs Myelos 0.04 x10(9)/L 0.00 - 0.11 10/25 13:44 :00 [facility] HEMATOLOGY PROFILES Abs Basophils Manual 0.04 x10(9)/L 0.00 - 0.30 10/25 13:44 :00 [facility] HEMATOLOGY PROFILES Abs Eosinophils Manual 0.15 x10(9)/L 0.05 - 0.50 10/25 13:44 :00 [facility] HEMATOLOGY PROFILES Morphology Present *NA* (10/25/24 7:44 AM) 10/25 13:44 :00 [facility] HEMATOLOGY PROFILES Abs Monocytes Manual 0.84 x10(9)/L 0.30 - 0.90 10/25 13:44 :00 [facility] HEMATOLOGY PROFILES Abs Atypical Lymphocytes Manual 0.11 x10(9)/L 0.00 - 0.11 10/25 13:44 :00 [facility] HEMATOLOGY PROFILES Myelos hp 0.9 % 10/25 13:44 :00 [facility] HEMATOLOGY PROFILES Basophils Manual 0.9 % 10/25 13:44 :00 [facility] HEMATOLOGY PROFILES Teardrop 1+ (3-6%) *NA* (10/25/24 7:44 AM) 10/25 13:44 :00 [facility] HEMATOLOGY PROFILES Schistocytes 1+ (Rare-3%) *NA* (10/25/24 7:44 AM) 10/25 13:44 :00 [facility] HEMATOLOGY PROFILES Macro 1+ (25-50%) *NA* (10/25/24 7:44 AM) 10/25 13:44 :00 [facility] HEMATOLOGY PROFILES Elliptocytes (Ovalocytes) 1+ (10-25%) *NA* (10/25/24 7:44 AM) 10/25 13:44 :00 [facility] HEMATOLOGY PROFILES Neuts Manual 59.5 % 10/25 13:44 :00 [facility] HEMATOLOGY PROFILES Internal Review Yes (10/25/24 7:44 AM) 10/25 13:44 :00 [facility] HEMATOLOGY PROFILES QA Review Agree (10/25/24 7:44 AM) 10/25 13:44 :00 [facility] HEMATOLOGY PROFILES Path Review Smear Pathologis t Review of Smear Interpreta tion: MCV >105 Interprete d by: Susy Barragan i, MD 10/25 13:44 :00 [facility] REFERENCE LABS MRD Tracking-Letitia noseq see scanned 09/19 22:11 :00 [facility] GENERAL CHEMISTRY Calcium 8.8 mg/dL 8.3 - 10.6 09/18 07:33 :00 [facility] GENERAL CHEMISTRY Glucose Lvl 119 mg/dL 70 - 139 09/18 07:33 :00 [facility] GENERAL CHEMISTRY Chloride 105 mmol/L 98 - 107 09/18 07:33 :00 [facility] GENERAL CHEMISTRY ALT-SGPT 115 U/L 10 - 50 09/18 07:33 :00 [facility] GENERAL CHEMISTRY BUN 10 mg/dL 6 - 20 09/18 07:33 :00 [facility] GENERAL CHEMISTRY Total Protein 5.6 g/dL 5.7 - 8.2 09/18 07:33 :00 [facility] GENERAL CHEMISTRY Creatinine, standardized 0.4 mg/dL 0.7 - 1.2 09/18 07:33 :00 Interpretive Data: Cgwenr-cn-rsx e transgender patients on testosterone therapy should have results assessed using the male reference range. Xrln-nl-qjmze e transgender patients on hormone-modul ating therapy clinical judgment is advisedfor assessment. [facility] GENERAL CHEMISTRY Anion gap 10 mmol/L 0 - 20 09/18 07:33 :00 [facility] GENERAL CHEMISTRY T Bili 0.41 mg/dL 0.30 - 1.20 09/18 07:33 :00 [facility] GENERAL CHEMISTRY Sodium 139 mmol/L 136 - 145 09/18 07:33 :00 [facility] GENERAL CHEMISTRY Potassium 3.8 mmol/L 3.5 - 5.1 09/18 07:33 :00 [facility] GENERAL CHEMISTRY CO2 28 mmol/L 20 - 31 09/18 07:33 :00 [facility] GENERAL CHEMISTRY Albumin 3.3 g/dL 3.4 - 5.0 09/18 07:33 :00 [facility] GENERAL CHEMISTRY Alkaline Phosphatase 110 U/L 40 - 129 09/18 07:33 :00 [facility] GENERAL CHEMISTRY AST-SGOT 21 U/L 09/18 07:33 :00 [facility] GENERAL CHEMISTRY Estimated GFR for Adults 150 mL/min/1.7 3m 09/18 07:33 :00 Interpretive Data: Changed to CKD-EPI 2020 on 2020. [facility] GENERAL CHEMISTRY Estimated GFR for peds Not Calculated mL/min/1.7 3m 09/18 07:33 :00 Interpretive Data: The estimated GFR was calculated using the B lucero Dorado equation (2009) . Reference: Pediatric GFR calculator at [employer] Website. [facility] HEMATOLOGY PROFILES % Nucleated RBCs 0.0 % 09/18 07:33 :00 [facility] HEMATOLOGY PROFILES MPV 9.8 8.0 - 12.0 09/18 07:33 :00 [facility] HEMATOLOGY PROFILES PLT 191 x10(9)/L 150 - 450 09/18 07:33 :00 [facility] HEMATOLOGY PROFILES RDW SD 66.6 fL 35.1 - 43.9 09/18 07:33 :00 [facility] HEMATOLOGY PROFILES RDW CV 17.6 % 11.8 - 15.6 09/18 07:33 :00 [facility] HEMATOLOGY PROFILES Absolute Nucleated RBCs 0.0 x10(9)/L 0.0 - 0.0 09/18 07:33 :00 Interpretive Data: Normal values not established in patients less than 18 years old. [facility] HEMATOLOGY PROFILES WBC 7.17 x10(9)/L 3.50 - 10.50 09/18 07:33 :00 [facility] HEMATOLOGY PROFILES RBC 2.57 x10(12)/L 4.32 - 5.72 09/18 07:33 :00 [facility] HEMATOLOGY PROFILES MCHC 32.1 g/dL 32.0 - 36.0 09/18 07:33 :00 [facility] HEMATOLOGY PROFILES MCH 32.7 pg 26.0 - 33.0 09/18 07:33 :00 [facility] HEMATOLOGY PROFILES MCV 101.9 fL 81.2 - 95.1 09/18 07:33 :00 [facility] HEMATOLOGY PROFILES HCT 26.2 % 38.8 - 50.0 09/18 07:33 :00 Interpretive Data: Efqnqh-zy-kqw e transgender patients on testosterone therapy should have results assessed using the male reference range. Gjet-oj-buwgc e transgender patients on hormone-modul ating therapy clinical judgment is advisedfor assessment. [facility] HEMATOLOGY PROFILES HGB 8.4 g/dL 13.5 - 17.5 09/18 07:33 :00 Interpretive Data: Pcgieq-cq-cem e transgender patients on testosterone therapy should have results assessed using the male reference range. Kevt-mk-vpazs e transgender patients on hormone-modul ating therapy clinical judgment is advisedfor assessment. [facility] GENERAL CHEMISTRY Estimated GFR for peds Not Calculated mL/min/1.7 3m 09/17 09:22 :00 Interpretive Data: The estimated GFR was calculated using the Teddy barker Dorado equation (2009) . Reference: Pediatric GFR calculator at [employer] Website. [facility] GENERAL CHEMISTRY Estimated GFR for Adults 146 mL/min/1.7 3m 09/17 09:22 :00 Interpretive Data: Changed to CKD-EPI 2020 on 2020. [facility] GENERAL CHEMISTRY Calcium 8.8 mg/dL 8.3 - 10.6 09/17 09:22 :00 [facility] GENERAL CHEMISTRY Glucose Lvl 116 mg/dL 70 - 139 09/17 09:22 :00 [facility] GENERAL CHEMISTRY BUN 10 mg/dL 6 - 20 09/17 09:22 :00 [facility] GENERAL CHEMISTRY ALT-SGPT 153 U/L 10 - 50 09/17 09:22 :00 [facility] GENERAL CHEMISTRY Albumin 3.4 g/dL 3.4 - 5.0 09/17 09:22 :00 [facility] GENERAL CHEMISTRY Alkaline Phosphatase 113 U/L 40 - 129 09/17 09:22 :00 [facility] GENERAL CHEMISTRY AST-SGOT 33 U/L 09/17 09:22 :00 [facility] GENERAL CHEMISTRY Creatinine, standardized 0.5 mg/dL 0.7 - 1.2 09/17 09:22 :00 Interpretive Data: Gynedn-lx-ffi e transgender patients on testosterone therapy should have results assessed using the male reference range. Ccku-ky-wlnpa e transgender patients on hormone-modul ating therapy clinical judgment is advisedfor assessment. [facility] GENERAL CHEMISTRY T Bili 0.40 mg/dL 0.30 - 1.20 09/17 09:22 :00 [facility] GENERAL CHEMISTRY Total Protein 5.7 g/dL 5.7 - 8.2 09/17 09:22 :00 [facility] GENERAL CHEMISTRY Anion gap 11 mmol/L 0 - 20 09/17 09:22 :00 [facility] GENERAL CHEMISTRY CO2 29 mmol/L 20 - 09/17 09:22 :00 [facility] GENERAL CHEMISTRY Potassium 4.2 mmol/L 3.5 - 5.1 09/17 09:22 :00 [facility] GENERAL CHEMISTRY Chloride 102 mmol/L 98 - 107 09/17 09:22 :00 [facility] GENERAL CHEMISTRY Sodium 138 mmol/L 136 - 145 09/17 09:22 :00 [facility] HEMATOLOGY PROFILES WBC 8.00 x10(9)/L 3.50 - 10.50 09/17 09:22 :00 [facility] HEMATOLOGY PROFILES HCT 26.7 % 38.8 - 50.0 09/17 09:22 :00 Interpretive Data: Hyaija-ff-nsc e transgender patients on testosterone therapy should have results assessed using the male reference range. Ngnh-or-vrssp e transgender patients on hormone-modul ating therapy clinical judgment is advisedfor assessment. [facility] HEMATOLOGY PROFILES HGB 8.4 g/dL 13.5 - 17.5 09/17 09:22 :00 Interpretive Data: Okpxrl-cv-nog e transgender patients on testosterone therapy should have results assessed using the male reference range. Siel-to-rlsuh e transgender patients on hormone-modul ating therapy clinical judgment is advisedfor assessment. [facility] HEMATOLOGY PROFILES RBC 2.55 x10(12)/L 4.32 - 5.72 09/17 09:22 :00 [facility] HEMATOLOGY PROFILES MCH 32.9 pg 26.0 - 33.0 09/17 09:22 :00 [facility] HEMATOLOGY PROFILES MCV 104.7 fL 81.2 - 95.1 09/17 09:22 :00 [facility] HEMATOLOGY PROFILES PLT 225 x10(9)/L 150 - 450 09/17 09:22 :00 [facility] HEMATOLOGY PROFILES RDW SD 70.9 fL 35.1 - 43.9 09/17 09:22 :00 [facility] HEMATOLOGY PROFILES RDW CV 18.2 % 11.8 - 15.6 09/17 09:22 :00 [facility] HEMATOLOGY PROFILES MCHC 31.5 g/dL 32.0 - 36.0 09/17 09:22 :00 [facility] HEMATOLOGY PROFILES MPV 10.5 8.0 - 12.0 09/17 09:22 :00 [facility] HEMATOLOGY PROFILES % Nucleated RBCs 0.0 % 09/17 09:22 :00 [facility] HEMATOLOGY PROFILES Absolute Nucleated RBCs 0.0 x10(9)/L 0.0 - 0.0 09/17 09:22 :00 Interpretive Data: Normal values not established in patients less than 18 years old. [facility] HEMATOLOGY PROFILES % Neutrophils 95.3 % 09/17 09:22 :00 [facility] HEMATOLOGY PROFILES % Monocytes 2.1 % 09/17 09:22 :00 [facility] HEMATOLOGY PROFILES % Eosinophils 0.0 % 09/17 09:22 :00 [facility] HEMATOLOGY PROFILES % Basophils 0.1 % 09/17 09:22 :00 [facility] HEMATOLOGY PROFILES % Immature Granulocytes 1.10 % 0.02 - 0.42 09/17 09:22 :00 [facility] HEMATOLOGY PROFILES % Lymphocytes 1.4 % 09/17 09:22 :00 [facility] HEMATOLOGY PROFILES Abs Monocytes 0.17 x10(9)/L 0.30 - 0.90 09/17 09:22 :00 [facility] HEMATOLOGY PROFILES Abs Eosinophils 0.00 x10(9)/L 0.05 - 0.50 09/17 09:22 :00 [facility] HEMATOLOGY PROFILES Abs Basophils 0.01 x10(9)/L 0.00 - 0.30 09/17 09:22 :00 [facility] HEMATOLOGY PROFILES Abs Immature Granulocytes 0.09 x10(9)/L 0.00 - 0.03 09/17 09:22 :00 [facility] HEMATOLOGY PROFILES Abs Lymphocytes 0.11 x10(9)/L 0.90 - 2.90 09/17 09:22 :00 [facility] HEMATOLOGY PROFILES Absolute Granulocytes 7.62 x10(9)/L 1.70 - 7.00 09/17 09:22 :00 [facility] HEMATOLOGY PROFILES Morphology Previously Reviewed, results remain consistent *NA* (09/17/24 3:22 AM) 09/17 09:22 :00 [facility] GENERAL CHEMISTRY Total Protein 6.2 g/dL 5.7 - 8.2 09/16 20:49 :00 [facility] CHEMISTRY T Bili 0.57 mg/dL 0.30 - 1.20 09/16 20:49 :00 [facility] CHEMISTRY Anion gap 11 mmol/L 0 - 20 09/16 20:49 :00 [facility] CHEMISTRY CO2 29 mmol/L 20 - 31 09/16 20:49 :00 [facility] CHEMISTRY Potassium 4.2 mmol/L 3.5 - 5.1 09/16 20:49 :00 [facility] GENERAL CHEMISTRY Sodium 139 mmol/L 136 - 145 09/16 20:49 :00 [facility] GENERAL CHEMISTRY Chloride 103 mmol/L 98 - 107 09/16 20:49 :00 [facility] CHEMISTRY Glucose Lvl 109 mg/dL 70 - 139 09/16 20:49 :00 [facility] CHEMISTRY Estimated GFR for peds Not Calculated mL/min/1.7 3m 09/16 20:49 :00 Interpretive Data: The estimated GFR was calculated using the Teddy barker Dorado equation (2009) . Reference: Pediatric GFR calculator at [employer] Website. [facility] CHEMISTRY Estimated GFR for Adults 147 mL/min/1.7 3m 09/16 20:49 :00 Interpretive Data: Changed to CKD-EPI 2020 on 2020. [facility] CHEMISTRY Creatinine, standardized 0.5 mg/dL 0.7 - 1.2 09/16 20:49 :00 Interpretive Data: Kzzuke-er-qhx e transgender patients on testosterone therapy should have results assessed using the male reference range. Rjhi-mh-kmvuq e transgender patients on hormone-modul ating therapy clinical judgment is advisedfor assessment. [facility] GENERAL CHEMISTRY Calcium 9.5 mg/dL 8.3 - 10.6 09/16 20:49 :00 [facility] GENERAL CHEMISTRY BUN 10 mg/dL 6 - 20 09/16 20:49 :00 [facility] GENERAL CHEMISTRY ALT-SGPT 209 U/L 10 - 50 09/16 20:49 :00 [facility] GENERAL CHEMISTRY Alkaline Phosphatase 122 U/L 40 - 129 09/16 20:49 :00 [facility] GENERAL CHEMISTRY Albumin 3.6 g/dL 3.4 - 5.0 09/16 20:49 :00 [facility] GENERAL CHEMISTRY AST-SGOT 53 U/L 09/16 20:49 :00 [facility] HEMATOLOGY PROFILES Absolute Nucleated RBCs 0.0 x10(9)/L 0.0 - 0.0 09/16 20:49 :00 Interpretive Data: Normal values not established in patients less than 18 years old. [facility] HEMATOLOGY PROFILES % Nucleated RBCs 0.0 % 09/16 20:49 :00 [facility] HEMATOLOGY PROFILES % Neutrophils 94.4 % 09/16 20:49 :00 [facility] HEMATOLOGY PROFILES Abs Monocytes 0.17 x10(9)/L 0.30 - 0.90 09/16 20:49 :00 [facility] HEMATOLOGY PROFILES Abs Lymphocytes 0.19 x10(9)/L 0.90 - 2.90 09/16 20:49 :00 [facility] HEMATOLOGY PROFILES Abs Basophils 0.00 x10(9)/L 0.00 - 0.30 09/16 20:49 :00 [facility] HEMATOLOGY PROFILES Abs Eosinophils 0.00 x10(9)/L 0.05 - 0.50 09/16 20:49 :00 [facility] HEMATOLOGY PROFILES Abs Immature Granulocytes 0.11 x10(9)/L 0.00 - 0.03 09/16 20:49 :00 [facility] HEMATOLOGY PROFILES % Monocytes 2.0 % 09/16 20:49 :00 [facility] HEMATOLOGY PROFILES % Lymphocytes 2.3 % 09/16 20:49 :00 [facility] HEMATOLOGY PROFILES % Basophils 0.0 % 09/16 20:49 :00 [facility] HEMATOLOGY PROFILES % Eosinophils 0.0 % 09/16 20:49 :00 [facility] HEMATOLOGY PROFILES % Immature Granulocytes 1.30 % 0.02 - 0.42 09/16 20:49 :00 [facility] HEMATOLOGY PROFILES Absolute Granulocytes 7.91 x10(9)/L 1.70 - 7.00 09/16 20:49 :00 [facility] HEMATOLOGY PROFILES Internal Review Yes (09/16/24 2:49 PM) 09/16 20:49 :00 [facility] HEMATOLOGY PROFILES Morphology Present *NA* (09/16/24 2:49 PM) 09/16 20:49 :00 [facility] HEMATOLOGY PROFILES Aniso 1+ (10-20%) *NA* (09/16/24 2:49 PM) 09/16 20:49 :00 [facility] HEMATOLOGY PROFILES Platelet Estimate Adequate *NA* (09/16/24 2:49 PM) 09/16 20:49 :00 [facility] HEMATOLOGY PROFILES Elliptocytes (Ovalocytes) 1+ (10-25%) *NA* (09/16/24 2:49 PM) 09/16 20:49 :00 [facility] HEMATOLOGY PROFILES QA Review Agree (09/16/24 2:49 PM) 09/16 20:49 :00 [facility] HEMATOLOGY PROFILES Path Review Smear Pathologis t Review of Smear Interpreta tion: lymphs <5%. Interprete d by: Susy Barragan i, MD 09/16 20:49 :00 [facility] HEMATOLOGY PROFILES HGB 9.4 g/dL 13.5 - 17.5 09/16 20:49 :00 Interpretive Data: Wfigtq-cb-xex e transgender patients on testosterone therapy should have results assessed using the male reference range. Zqpi-kk-cnzxn e transgender patients on hormone-modul ating therapy clinical judgment is advisedfor assessment. [facility] HEMATOLOGY PROFILES HCT 29.4 % 38.8 - 50.0 09/16 20:49 :00 Interpretive Data: Fhsauk-gw-phs e transgender patients on testosterone therapy should have results assessed using the male reference range. Duqo-gc-igbhw e transgender patients on hormone-modul ating therapy clinical judgment is advisedfor assessment. [facility] HEMATOLOGY PROFILES WBC 8.38 x10(9)/L 3.50 - 10.50 09/16 20:49 :00 [facility] HEMATOLOGY PROFILES RBC 2.88 x10(12)/L 4.32 - 5.72 09/16 20:49 :00 [facility] HEMATOLOGY PROFILES MCV 102.1 fL 81.2 - 95.1 09/16 20:49 :00 [facility] HEMATOLOGY PROFILES RDW CV 18.1 % 11.8 - 15.6 09/16 20:49 :00 [facility] HEMATOLOGY PROFILES RDW SD 67.2 fL 35.1 - 43.9 09/16 20:49 :00 [facility] HEMATOLOGY PROFILES MCH 32.6 pg 26.0 - 33.0 09/16 20:49 :00 [facility] HEMATOLOGY PROFILES MCHC 32.0 g/dL 32.0 - 36.0 09/16 20:49 :00 [facility] HEMATOLOGY PROFILES PLT 230 x10(9)/L 150 - 450 09/16 20:49 :00 [facility] HEMATOLOGY PROFILES MPV 10.4 8.0 - 12.0 09/16 20:49 :00 [facility] OTHER HEMATOLOGY TESTS Reticulocyte Percent 1.9 % 1.1 - 2.7 09/16 20:49 :00 [facility] OTHER HEMATOLOGY TESTS Reticulocyte Count 0.055 0.055 - 0.141 09/16 20:49 :00 [facility] OTHER HEMATOLOGY TESTS Reticulocyte Hemoglobin 36.4 pg 29.0 - 35.3 09/16 20:49 :00 [facility] OTHER HEMATOLOGY TESTS Immature Reticulocyte Fraction 5.5 % 2.3 - 15.9 09/16 20:49 :00 [facility] THERAPEUTI C DRUGS Methotrexate Lvl <0.04 umol/L 09/16 20:49 :00 [facility] FLOW CYTOMETRY Leukemia/Lym phoma Result See Report 33 (09/16/24 2:03 PM) 09/16 20:03 :00 Interpretive Data: See report under Flow Cytometry within Lab Extended tab. [facility] FLOW CYTOMETRY Specimen Source Bone Marrow Aspirate 09/16 20:03 :00 [facility] FLOW CYTOMETRY Flow Cytometry Compliance Comment See Comment 32 (09/16/24 2:03 PM) 09/16 20:03 :00 Interpretive Data: Analyte Specific Reagent: This test was developed and its performance characteristi cs determined by the Clinical Flow Cytometry Laboratory, [facility], [facility]. It has not been cleared or approved by the U.S. Food and Drug Administratio n. The FDA has determined that such clearance is not necessary. This test is used for clinical purposes, and should not be regarded as investigation al or for research. This laboratory is certified under the Clinical Laboratory Improvement Amendment of 1988 (CLIA-88) as qualified to perform high complexity clinical laboratory testing. [facility] REFERENCE LABS Hutson RL Test AP Result duplicate 09/16 20:03 :00 [facility] Result BALPF-HUTSON See Comment 09/16 20:03 :00 Result Comment: Test Result Flag Unit RefValue Pediatric ALL (B-cell), FISH Result Summary Normal Interpretatio n See Comment The result is within normal limits for the B-ALL FISH panel as well as FISH probes for the Ph-like B-ALL panel. In addition, no deletion of IKZF1 was observed. Additional cytogenetic studies are reported separately. Result Table See Comment ------ Abnormality Name Result Abn% Cutoff% 11q23(MLL sep) Normal <10.0 t(9;22) ABL1/BCR fusion Normal <4.0 -9p21(GFXJ0Es 1,D9Z1x2) Normal <12.0 -9p21x2(CDKN2 Ax0,D9Z1x2) Normal <5.0 -17p13.1(TP53 x1,Q12N5m0) Normal <15.0 -17(TP53,D17Z 1)x1 Normal <10.0 t(12;21) ETV6/RUNX1 fusion Normal <4.0 +21q22(RUNX1x 3) Normal <7.0 14q32(IGH sep) Normal <15.0 Xp22.33/Yp11. 32(3'MLRO5dln ention,5 Normal <10.0 'loss) Xp22.33/Yp11. 32(3'D6JT5swd s,5'rete Normal <5.0 ntion) t(1;19) PBX1/TCF3 fusion Normal <4.0 glenna(19)t(1;19 ) PBX1/TCF3 fusion Normal <4.0 +4CEN(D4Z1x3) Normal <20.0 +10CEN(D10Z1x 3) Normal <7.0 +17CEN(D17Z1x 3) Normal <7.0 8q24.1(MYC sep) Normal <10.0 1q25(ABL2 sep) Normal <10.0 5q32(PDGFRB sep) Normal <15.0 9p24.1(JAK2 sep) Normal <10.0 9q34(ABL1 sep) Normal <15.0 -7p12.2(IKZF1 dimx1,VOAY8k5 ,Cep7x2) Normal <7.0 ------ Result Interphase FISH is normal for all loci studied. Reason for Referral h/o B-acute lymphoblastic leukemia/B-AL L Specimen Bone Marrow Source Right side Method See Comment Locus and probes [Strategy;#Nu clei;Vendor] ------- 1q23(PBX1),19 p13.3(TCF3) [DFISH;200;LD T] 1q25(3'ABL2,5 'ABL2) [BAP;100;LDT] 4CEN(D4Z1),10 VIVEK(D10Z1),17 VIVEK(D17Z1) [COPY#;100;AM ] 5q32(3'PDGFRB ,5'PDGFRB) [BAP;100;LDT] 7p12.2(IKZF1) ,7CEN(CEP7) [COPY#;100;AT ] 8q24(5'MYC,3' MYC) [BAP;100;AM] 9p24(5'JAK2,3 'JAK2) [BAP;100;LDT] 9p21(CDKN2A), 9CEN(D9Z1) [COPY#;100;AM ] 9q34(5'ABL1,3 'ABL1) [BAP;100;LDT] 9q34(ABL1),22 q11.2(BCR) [DFISH;200;AM ] 11q23(5'MLL[K MT2A],3'MLL[K MT2A]) [BAP;100;AM] 12p13(ETV6),2 1q22(RUNX1) [DFISH;200;LD T] 14q32(3'IGH,5 'IGH) [BAP;100;LDT] 17p13(TP53),1 7CEN(D17Z1) [COPY#;100;AM ] Xp22.33/Yp11. 32(3'CRLF2,5' CRLF2) [BAP;100;C] Xp22.33/Yp11. 32(3'P2RY8,5' P2RY8) [BAP;100;C] Probe strategies include: DFISH=dual color, double fusion; BAP=break-apa rt probe; COPY#=region gain and loss. Scoring Method: Manual Probe vendors include: LDT = [facility] Developed AM = [employer] ([place], [place]) C = [employer] ([place], [place]) AT = [employer] ([place], [place]) Additional Information See Comment Previous Studies DATE SPECIMEN RESULT 04/04/2024 Marrow No clonal abnormality was apparent 04/04/2024 Marrow B-ALL Panel within normal limits ------- A portion of the testing process was performed at [facility] [place] site [id number]. Disclaimer See Comment Applicable to Analyte Specific Reagent (ASR) and Laboratory Developed Tests (LDT). This test was developed and its performance characteristi cs determined by [facility] in a manner consistent with CLIA requirements. It has not been cleared or approved by the U.S. Food and Drug Administratio n. This FISH test does not rule out other chromosome abnormalities . Released By Blanca Worthington D.O. Test Performed by: [address] [address] [employer]: Trista West Ph.D.; CLIA# [id number] [facility] Specimen [facility] Bone marrow 09/16 20:03 :00 [facility] Reason for Referral [facility] History of BALL 09/16 20:03 :00 [facility] Reason for Referral [facility]BM History of B-ALL 09/16 17:45 :00 Result Comment: Collection date/time has been modified to: 11:45:00. Previous collection date/time: 14:11:00. [facility] Chromosomes, Hematologic, BM See Comment 09/16 17:45 :00 Result Comment: Test Result Flag Unit RefValue Chromosomes, Hematologic, BM Result Summary Normal Interpretatio n See Comment No clonal abnormality was apparent. Additional cytogenetic studies are reported separately. 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 Additional Information See Comment Previous Studies DATE SPECIMEN RESULT 04/04/2024 Marrow No clonal abnormality was apparent 04/04/2024 Marrow B-ALL Panel within normal limits ------- A portion of the testing process was performed at [facility] site [id number]. Released By Gardenia Ohara M.D. Test Performed by: [facility] [place] [address] [employer]: Trista West Ph.D.; CLIA# [id number] [facility] Bone Marrow Report Bone Marrow Report AMENDED HEMATOPATH OLOGY REPORT Patient Name: EVELINA DO Specimen Number: [id number] Patient Collection Date: 09/16/2024 Submitting Physician: Kyaw Kirkland MD Signout Date: 10/02/2024 Other Physician( s): MD Aleisha Patel MD Clinical Informatio n B-ALL s/p completion of treatment with 8 cycles of HyperCVAD+ R ======== FINAL DIAGNOSIS ( 5): 1. PERIPHERAL BLOOD, WRIGHTS STAINED FILM: Macrocytic anemia, neutrophil ia with left shift, lymphopeni a, monocytope dale, eosinopeni a 2. BONE MARROW, ASPIRATION AND BIOPSY: Variably cellular bone marrow (~10-50%) with predominan ce of myeloids; no morphologi c evidence of residual leukemia (ICC 2021) SITE: Right iliac crest ADEQUACY: Adequate 3. BONE MARROW, PARAFFIN IMMUNOPERO XIDASE STUDIES: CD79a highlights few scattered B cells and plasma cells. CD10 highlights background granulocyt es and stromal cells. CD20 is negative. TdT highlights scattered positive cells. 4. BONE MARROW, FLOW CYTOMETRIC ANALYSIS: No abnormal B-cell precursor population is detected (MRD-negat alyssia). Predominan t granulocyt e population in various stages of maturation with no abnormal antigen expression is identified . No phenotypic ally aberrant T-cell population or increase in myeloid blasts identified . No mature B-cell population detected. 5. BONE MARROW, CYTOGENETI CS: Chromosome analysis identified a normal male karyotype, 46,XY[20] 6. BONE MARROW, MOLECULAR GENETIC STUDIES: B-ALL FISH is normal; ClonoSeq B-cell tracking detected no residual sequences (HJ 09/19/2024) (hj/rlb1/) (im/rlb1/1 01/10) By this signature, I attest that the above diagnosis is based upon my personal examinatio n of the tissue and slides (and/or other material indicated in the diagnosis) , per policy. A resident was involved in the pathologic evaluation of this case, I have reviewed and edited the findings of the resident. 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 ======== Amendments Amended: 09/23/2024 by Pamela Infante, NSS Reason: Additional Test Results Amendment for inclusion of molecular results to further the diagnosis to final, although the diagnosis will remailn in the preliminar y stage at this time; no physician notified. Previous Signout Date: 09/20/2024 Specimen(s ) Received 1: PERIPHERAL BLOOD 2: BONE MARROW ASPIRATE RIGHT 3: BONE MARROW BIOPSY RIGHT 4: BONE MARROW CLOT RIGHT Other Related Clinical Data See the full diagnostic report using the pdf link above. Gross Descriptio n For examinatio n are 3 Wrights-st ained peripheral blood films, 3 Wrights-st ained aspirate smears, and 1 Wrights-st ained touch preparatio n, plus 16 unstained aspirate smears and 5 unstained touch preparatio ns. In B+ fixative labeled right bone marrow biopsy is a intact core of brown-hansen bone, 3.4 cm in length by 0.3 cm in diameter. Submitted entirely in 3ADK, after decalcific ation. In B+ fixative labeled right bone marrow clot is a 1.2 x 0.8 x 0.2 cm firm red- brown clot. Submitted entirely as 4A. Also received are 1 sodium heparin tubes, which are combined and submitted for flow cytometry, cytogeneti c studies, and molecular genetic studies and 4 EDTA tubes. (Roney Mondragon, DO) PABLO Microscopi c Descriptio n Peripheral Blood: Review of a Luo's stained peripheral blood film shows normal numbers of white blood cells. Neutrophil s are increased in number and show normal maturation and normal morphology . Eosinophil s are decreased in number and basophils are normal in number. Monocytes are decreased in number and show normal morphology . Lymphocyte s are decreased in number and show round to slightly irregular nuclei with scant cytoplasm. Platelets are normal in number and show normal morphology and granularit y. There are no enlarged platelets and no giant platelets. No significan t platelet clumping is identified . The red cells are decreased in number, normochrom ic, and macrocytic . There is minimal anisopoiki locytosis. There is minimal polychroma antoine. Increased numbers of schistocyt es are not seen. Aspirate Smear and/or TouchPprep : Review of right stained bone marrow aspirate smears and touch preparatio ns shows a cellular specimen. Myeloids are present and in increased numbers with normal morphology and maturation . Eosinophil s are decreased in number and basophils are normal in number. Increased numbers of blasts are not seen. Erythroids are present and in relatively decreased number and show normal maturation . Megakaryoc ytes are present in normal numbers with normal morphology . Small mature lymphocyte s are scattered throughout the marrow. Rare plasma cells are seen. Biopsy and Clot Sections (H&E and PAS): A bone marrow biopsy and clot sections are available for examhsuseintio n. The marrow shows variable cellularit y (~10-50%). PAS stain with appropriat e controls shows an increased myeloid:er ythroid ratio. Myeloid show normal maturation . Erythroid show normal maturation . There are scattered eosinophil s and normal numbers of basophils scattered throughout the marrow. No clusters of blasts are seen. Megakaryoc ytes are normal in number and without focal clustering . Small mature lymphocyte s are scattered throughout the marrow. No lymphoid aggregates are seen. Scattered plasma cells are present. The bony trabeculae are normal in appearance . No other focal lesions are seen. Special Stains: Iron stains with appropriat e controls are performed on the aspirate smears, biopsy and clot section. Stainable iron is increased (3+). Ringed sideroblas ts are not seen. Immunohist ochemical Stains (IHC): Following review of the H&E sections, paraffin immunopero xidase studies with appropriat e controls are performed on block 3 ADK for TdT, CD10, PAX5, CD79a, CD20. PAX5 highlights few scattered B cells. CD79a highlights few scattered B cells and plasma cells. TdT highlights scattered positive cells. CD10 highlights background granulocyt es and stromal cells. CD20 is negative. Flow Cytometry: Flow cytometric analysis is performed on the bone marrow aspirate and reveals no abnormal precursor B cells are detected out of 408,703 analyzed events. Myeloid blasts are not increased and show no abnormal antigen expression . A rare population of hematogone s is present. No mature B cells are detected. T cells show a mix of CD4 and CD8+ cells with no evidence of abnormal antigen expression . A predominan ce of granulocyt es in various stages of maturation is present with no abnormal antigen expression . Please see complete report in patient's electronic medical record. Cytogeneti cs: Chromosome analysis (performed at [facility], [address] [place] [id number]) is performed on the bone marrow aspirate. Analysis identified a normal male karyotype. No clonal abnormalit y was apparent. 46,XY[20] Please see complete report in patient's electronic medical record. Molecular Genetics: B-ALL FISH analysis (performed at [facility], [address], [place] [address]) results are within normal limits for the B-ALL FISH panel as well as probes for the Ph-like B-ALL panel. In addition, no deletion of IKZF1 was observed. Interphase FISH is normal for all loci studied. ClonoSEQ B-cell tracking (performed at [facility] [address], [place] [address]) is performed on the bone marrow aspirate. No residual sequences were detected (estimated MRD value: 0 residual clonal cells). There were 3,822,382 total nucleated cells evaluated from this sample. Please see complete reports in patient's electronic medical record. Haematopoi etic and lymphoid neoplasms are defined by the ICC classifica tion using all available informatio n- morphology , immunophen otype, genetic and clinical features. At times correlatio n of morphologi c and immunophen otypic data require using both flow cytometry and paraffin immunopero xidase as well as advanced genetic molecular techniques such as FISH, and are deemed medically necessary by the pathologis t for accurate classifica tions as defined by the latest ICC criteria. The IHC stains related to this case are medically necessary to further morphologi guilherme evaluate and classify the neoplasm as flow cytometric analysis alone was insufficie nt. The performanc e characteri stics of the immunohist ochemical stains cited in this report (if any) were determined by the [facility] Department of Pathology. They have not been cleared or approved by the U.S. Food and Drug Administra tion. The FDA has determined that such clearance or approval is not necessary. This test is for clinical purposes. It should not be regarded as investigat ional or for research. This laboratory is certified under the Clinical Laboratory Improvemen t Amendments of 1988 (CLIA) as qualified to perform high complexity clinical laboratory testing. 09/16 14:49 :00 Missing Attachment [id number].PDF can be viewed in source system [facility] Flow Cytometry Report. Flow Cytometry Report. CLINICAL FLOW CYTOMETRY [facility]PT [facility]AT[facility], [place] [address] Phone: [phone] Patient: EVELINA DO Collection Date: 09/16/2024 Service: Hematology Oncology Location: Oncology Facility: [facility] [id number] Attending Physician: Heike Barrientos MD : 2000 (Age: 24) Other Physician( s): {None Given} Sex: M Race: White Other Number(s): [phone] Flow Cytometry Immunophen otypic Report FINAL DIAGNOSIS No abnormal B-cell precursor population is detected (MRD-negat alyssia). Predominan t granulocyt e population in various stages of maturation with no abnormal antigen expression is identified . No phenotypic ally aberrant T-cell population or increase in myeloid blasts identified . No mature B-cell population detected. By this signature, I attest that the above diagnosis is based upon my personal examinatio n of the tissue and slides (and/or other material indicated in the diagnosis) , per policy. Susy Barragan i, MD Electronic ally Signed Out Procedure Signout Date: 09/17/2024 COMMENTS Measurable residual disease (MRD) in acute lymphoblas tic leukemia (ALL) is defined by a leukemic cell population >0.01% of total CD45+ cells with an identifiab le aberrant immunophen otype1. This assay has a sensitivit y that is lower than 10-4 (below the 0.01% threshold) for MRD depending on the phenotype based on LAIP/DFN and may detect low-level population s sub-thresh old for clinical MRD. Serial testing and correlatio n with molecular results such as ClonoSEQ are suggested if clinically indicated. Absence of B-cells in the bone marrow aspirate consistent with previous Rituximab immunother apy. Correlatio n of the flow cytometry results with the Bone Marrow aspirate and biopsy findings, clinical history and other laboratory features is required for a definitive diagnosis. If desired, we can provide diagnostic services as part of a hematopath ology consultati on. Please contact the signing pathologis t at if you have further questions regarding these analyses. [1] [facility] Clinical Haematolog y 35 (2021) Clinical History and Diagnosis: B-ALL Viability 98.7% Immunophen otypic Data Antibodies Performed: CD15,CD34, CD33,CD13, CD11b,HLAD R,CD16,CD4 5,KAPPA,LA MBDA,CD5,C D19,CD23,C D20,CD10,C D4,CD8,CD2 ,CD56,CD3, CD7,CD79b, CD123,CD24 ,CD38,CD20 0,TcR,TRBC 1,CD304,CD 22,CD81,CD 86,CD9,CD5 8 FLOW DIFFERENTI AL ANALYSIS: AW PRELIMINAR Y REVIEW: Susy Barragan i, MD DATE: 09/16/2024 TIME:1610 Blasts 0.4% CD34+ No abnormal precursor B-cells are detected out of 408,703 analyzed events. Myeloid blasts are not increased and show no abnormal antigen expression . Mature B-cells 0% Hematogone s 0.04% A rare population of hematogone s is present. No mature B-cells are detected. T-cells/NK cells T 1.0% NK 2.1% 4:8 ratio 1.39 T-cells show a mix of CD4 and CD8 + cells with no evidence of abnormal antigen expression . Others A predominan ce of granulocyt es in various stages of maturation is present with no abnormal antigen expression . Quality Assessment : Specimen received within recommende d guidelines . Expression of residual normal cells functionin g as internal negative and positive controls is evaluated against expected antigenic immunophen otype. Microscopi c Descriptio n: A smear prepared from the submitted specimen and stained with Luo-Gie msa is examined. Specimen Received Right Bone Marrow Aspirate Analyte Specific Reagent: This test was developed and its performanc e characteri stics determined by the Clinical Flow Cytometry Laboratory , [facility], [facility]. It has not been cleared or approved by the U.S. Food and Drug Administra tion. The FDA has determined that such clearance is not necessary. This test is used for clinical purposes, and should not be regarded as investigat ional or for research. This laboratory is certified under the Clinical Laboratory Improvemen t Amendment of 1988 (CLIA-88) as qualified to perform high complexity clinical laboratory testing. Performed at [facility], [address] [facility], [place]. [address] 09/16 14:03 :00 Missing Attachment [id number].PDF can be viewed in source system [facility] CT Biopsy CT Biopsy CT Scan/CT Angio Accession # Exam Date/Time Procedure Ordering Provider [id number] 09/16/2024 14:[address] Biopsy Adrián Castellanos MD Reason For Exam (CT Biopsy) BMBX Report History: B-cell acute lymphoblas tic leukemia Procedure: 1. CT-guided Right iliac bone marrow biopsy and aspirate 2. Conscious sedation for a total of 30 minutes. Operators: Al Farrar M.D. attending physician Prior to the procedure, the risks, benefits, and alternativ es were discussed with the patient and informed consent was obtained. Anesthesia : Conscious sedation with Versed and Fentanyl was initiated and the patient's vitals were monitored by an independen t trained observer under my supervisio n during the procedure. I spent a total of 30 minutes of face-to-fa ce sedation time during the procedure. Medication s: 1. Local anesthetic 1% lidocaine without epinephrin e. 2. Fentanyl 3. Versed Procedure: Informed consent was obtained prior to the procedure, including all risks, benefits, and alternativ es. Patient was brought to the CT suite and placed in the prone position. [place] timeout protocol was performed. The patient was prepped and draped in usual sterile fashion. The skin and subcutaneo us tissues were anesthetiz ed using local anesthetic . Under CT guidance, an On-control drill was advanced to the right ilium. The drill was advanced through the cortex. Aspirates were obtained with and without heparinize d syringes. The drill was used to obtain a core biopsy sample. Pathology was on-site to confirm an adequate sample. Sterile dressings were applied. The patient tolerated the procedure well. Complicati ons: None Blood loss: Minimal Dispositio n: Stable to floor Impression : Uncomplica pushpa CT-guided bone marrow biopsy and aspirate of the right ilium. I was present and performed the entire procedure. I have personally reviewed the images and attest to the contents of CT Scan/CT Angio Report this report. * * *Final Report* * * Electronic ally Signed by: Al Farrar MD Signed on: 09/16/24 16:35 09/16 13:42 :40 [facility] NM Gall Bladder Exam NM Gall Bladder Exam Nuc Med PET Accession # Exam Date/Time Procedure Ordering Provider [id number] 09/16/2024 13:40 DIRECT SERVICE PROFESSIONAL NM Gall Bladder Kyaw Kirkland MD Reason For Exam (NM Gall Bladder) abdominal pain Report EXAMINATIO N: Hepatobili gabriela imaging study and gallbladde r ejection fraction INDICATION : abdominal pain COMPARISON : Ultrasound abdomen 09/14/2024 TECHNIQUE: The radiopharm aceutical was injected intravenou sly and anterior images were obtained for about 60 minutes. Right lateral images were also acquired. Radiopharm aceutical: Tc-99m-Meb rofenin Dose: 6.5 mCi FINDINGS: There is prompt visualizat ion of the gallbladde r and common bile duct. The radiotrace r passes into the gut without obstructio n. With the gallbladde r full of radioactiv ity, the patient was infused with a dose of Kinevac (CCK) intravenou sly over 45-60 minutes through an infusion pump to study the gallbladde r contractil ity and ejection fractions. The gallbladde r ejection fraction is 77% (Normal: > 38%) IMPRESSION : Negative for cystic duct or common duct obstructio n. The gallbladde r contractil ity is normal. I have personally reviewed the images and attest to the contents of this report. * * *Final Report* * * Electronic ally Signed by: Angelique Castellanos MD Signed on: 09/16/24 13:41 09/16 10:20 :00 [facility] COAGULATIO N PT 11.4 s 9.4 - 12.5 09/16 09:06 :00 [facility] COAGULATIO N INR 1.0 0.9 - 1.2 09/16 09:06 :00 Interpretive Data: Suggested therapeutic INR range for stable oral anticoagulati on: Optimal Therapeutic INR Range 2.0-3.0 Therapeutic Range for High-Risk Groups (antiphoshpol ipid syndrome with previous thrombosis) 2.0-3.0 DVT of the leg 2.0-3.0 PE 2.0-3.0 Patients with AF and Stable Coronary Artery Disease 2.0-3.0 Bioprosthetic valve in the mitral position 2.0-3.0 Mechanical mitral valve or additional risk factors 2.5-3.5 Prevention of Recurrent VTE in Women prophylaxis for 6 weeks with prophylactic- or intermediate- dose LMWH or warfarin targeted at INR 2.0 or 3.0 rather than no prophylaxis For additional guidance see: Abhi GH, Nannette EA, Jatinder M, Halle DD, Dajuan n darby HJ; [employer] Antithromboti c Therapy and Prevention of Thrombosis Panel. Executive summary: Antithromboti c Therapy and Prevention of Thrombosis, 9th Ed: [employer] Evidence-Base d Clinical Practice Guidelines. Chest. 2011; 141(2 Suppl):7S-47S . doi: 10.1378/chest .1412S3 [facility] COAGULATIO N PTT 27.4 s 25.1 - 36.5 09/16 09:06 :00 Interpretive Data: Recommendatio ns for anticoagulant therapeutic ranges: Unfractionate d Heparin: Please order the anti-Xa assay. Target ranges and medication management recommendatio ns are based on the anti-Xa assay and posted in [employer] (see Medication Management-Ad ult Heparin Nomogram). Argatroban: Target ranges and medication management recommendatio ns are posted in [employer] (see Medication Management- Adult Argatroban Nomogram). Low molecular weight heparin or danaparoid monitoring: Please order the anti-Xa assay. Please contact the Pharmacy or the Clinical Pathology Service for additional questions. [facility] URINALYSIS UA Epithelial Cells None Seen /lpf 09/15 10:00 :00 [facility] URINALYSIS RBC None Seen /hpf 0 - 2 09/15 10:00 :00 [facility] URINALYSIS WBC 0-3 /hpf 0 - 3 09/15 10:00 :00 [facility] URINALYSIS UA KETONES Negative mg/dL 09/15 10:00 :00 [facility] URINALYSIS UA GLUCOSE Negative mg/dL 09/15 10:00 :00 [facility] URINALYSIS UA UROBILINOGEN Negative Yumi unit/dL 0.2 - 1.0 09/15 10:00 :00 [facility] URINALYSIS BILIRUBIN Negative (09/15/24 4:00 AM) 09/15 10:00 :00 [facility] URINALYSIS UA PH 9 *NA* (09/15/24 4:00 AM) 4.5 - 8.0 09/15 10:00 :00 [facility] URINALYSIS UA PROTEIN Negative mg/dL 09/15 10:00 :00 [facility] URINALYSIS UA NITRITE Negative (09/15/24 4:00 AM) 09/15 10:00 :00 [facility] URINALYSIS UA LEUKOCYTES Negative (09/15/24 4:00 AM) 09/15 10:00 :00 [facility] URINALYSIS UA BLOOD Negative 16 (09/15/24 4:00 AM) 09/15 10:00 :00 Result Comment: A hemoglobin concentration of 0.015-0.062 mg/dL is approximately equivalent to 5 -20 intact red blood cells per microliter. [facility] URINALYSIS CLARITY Clear (09/15/24 4:00 AM) 09/15 10:00 :00 [facility] URINALYSIS SPECIFIC GRAVITY 1.005 1.006 - 1.030 09/15 10:00 :00 [facility] URINALYSIS COLOR Straw (09/15/24 4:00 AM) 09/15 10:00 :00 [facility] GENERAL CHEMISTRY Total Protein 4.6 g/dL 5.7 - 8.2 09/15 09:39 :00 [facility] GENERAL CHEMISTRY Creatinine, standardized 0.6 mg/dL 0.7 - 1.2 09/15 09:39 :00 Interpretive Data: [id number] e transgender patients on testosterone therapy should have results assessed using the male reference range. [id number] e transgender patients on hormone-modul ating therapy clinical judgment is advisedfor assessment. [facility] GENERAL CHEMISTRY Anion gap Unable to Calculate mmol/L 0 - 20 09/15 09:39 :00 Result Comment: Not a number; no computation performed (Invalid syntax) [facility] GENERAL CHEMISTRY T Bili 0.25 mg/dL 0.30 - 1.20 09/15 09:39 :00 [facility] GENERAL CHEMISTRY CO2 >40 mmol/L 20 - 31 09/15 09:39 :00 Result Comment: Critical Result(s) Called at: 05:10:07 09/15/2024. Called to and read back by:Morena Souza RN. AM [facility] GENERAL CHEMISTRY Potassium 3.0 mmol/L 3.5 - 5.1 09/15 09:39 :00 [facility] GENERAL CHEMISTRY Chloride 92 mmol/L 98 - 107 09/15 09:39 :00 [facility] GENERAL CHEMISTRY Sodium 139 mmol/L 136 - 145 09/15 09:39 :00 [facility] GENERAL CHEMISTRY Calcium 7.3 mg/dL 8.3 - 10.6 09/15 09:39 :00 [facility] GENERAL CHEMISTRY Glucose Lvl 89 mg/dL 70 - 139 09/15 09:39 :00 [facility] GENERAL CHEMISTRY BUN 7 mg/dL 6 - 20 09/15 09:39 :00 [facility] GENERAL CHEMISTRY Alkaline Phosphatase 103 U/L 40 - 129 09/15 09:39 :00 [facility] GENERAL CHEMISTRY ALT-SGPT 243 U/L 10 - 50 09/15 09:39 :00 [facility] GENERAL CHEMISTRY AST-SGOT 110 U/L 09/15 09:39 :00 [facility] GENERAL CHEMISTRY Albumin 2.8 g/dL 3.4 - 5.0 09/15 09:39 :00 [facility] GENERAL CHEMISTRY Estimated GFR for peds Not Calculated mL/min/1.7 3m 09/15 09:39 :00 Interpretive Data: The estimated GFR was calculated using the [employer] Dorado equation (2009) . Reference: Pediatric GFR calculator at [employer] Website. [facility] GENERAL CHEMISTRY Estimated GFR for Adults 141 mL/min/1.7 3m 09/15 09:39 :00 Interpretive Data: Changed to CKD-EPI 2020 on 2020. [facility] GENERAL CHEMISTRY Magnesium 1.47 mg/dL 1.60 - 2.60 09/15 09:39 :00 [facility] GENERAL CHEMISTRY Phosphorus 3.0 mg/dL 2.4 - 5.1 09/15 09:39 :00 [facility] HEMATOLOGY PROFILES HGB 7.6 g/dL 13.5 - 17.5 09/15 09:39 :00 Interpretive Data: Ryjnxy-wq-gwg e transgender patients on testosterone therapy should have results assessed using the male reference range. Clza-eg-izpwz e transgender patients on hormone-modul ating therapy clinical judgment is advisedfor assessment. [facility] HEMATOLOGY PROFILES HCT 24.5 % 38.8 - 50.0 09/15 09:39 :00 Interpretive Data: Avnzbs-ql-sxi e transgender patients on testosterone therapy should have results assessed using the male reference range. Lezx-sd-mspjj e transgender patients on hormone-modul ating therapy clinical judgment is advisedfor assessment. [facility] HEMATOLOGY PROFILES WBC 5.85 x10(9)/L 3.50 - 10.50 09/15 09:39 :00 [facility] HEMATOLOGY PROFILES RBC 2.34 x10(12)/L 4.32 - 5.72 09/15 09:39 :00 [facility] HEMATOLOGY PROFILES RDW SD 74.3 fL 35.1 - 43.9 09/15 09:39 :00 [facility] HEMATOLOGY PROFILES MCHC 31.0 g/dL 32.0 - 36.0 09/15 09:39 :00 [facility] HEMATOLOGY PROFILES RDW CV 19.6 % 11.8 - 15.6 09/15 09:39 :00 [facility] HEMATOLOGY PROFILES MCV 104.7 fL 81.2 - 95.1 09/15 09:39 :00 [facility] HEMATOLOGY PROFILES MCH 32.5 pg 26.0 - 33.0 09/15 09:39 :00 [facility] HEMATOLOGY PROFILES PLT 168 x10(9)/L 150 - 450 09/15 09:39 :00 [facility] HEMATOLOGY PROFILES MPV 10.7 8.0 - 12.0 09/15 09:39 :00 [facility] HEMATOLOGY PROFILES Absolute Granulocytes 4.42 x10(9)/L 1.70 - 7.00 09/15 09:39 :00 [facility] HEMATOLOGY PROFILES % Basophils 0.3 % 09/15 09:39 :00 [facility] HEMATOLOGY PROFILES % Immature Granulocytes 0.90 % 0.02 - 0.42 09/15 09:39 :00 [facility] HEMATOLOGY PROFILES % Monocytes 14.2 % 09/15 09:39 :00 [facility] HEMATOLOGY PROFILES % Eosinophils 2.7 % 09/15 09:39 :00 [facility] HEMATOLOGY PROFILES Abs Basophils 0.02 x10(9)/L 0.00 - 0.30 09/15 09:39 :00 [facility] HEMATOLOGY PROFILES Abs Immature Granulocytes 0.05 x10(9)/L 0.00 - 0.03 09/15 09:39 :00 [facility] HEMATOLOGY PROFILES Abs Monocytes 0.83 x10(9)/L 0.30 - 0.90 09/15 09:39 :00 [facility] HEMATOLOGY PROFILES Abs Eosinophils 0.16 x10(9)/L 0.05 - 0.50 09/15 09:39 :00 [facility] HEMATOLOGY PROFILES Abs Lymphocytes 0.37 x10(9)/L 0.90 - 2.90 09/15 09:39 :00 [facility] HEMATOLOGY PROFILES % Lymphocytes 6.3 % 09/15 09:39 :00 [facility] HEMATOLOGY PROFILES Absolute Nucleated RBCs 0.0 x10(9)/L 0.0 - 0.0 09/15 09:39 :00 Interpretive Data: Normal values not established in patients less than 18 years old. [facility] HEMATOLOGY PROFILES % Neutrophils 75.6 % 09/15 09:39 :00 [facility] HEMATOLOGY PROFILES % Nucleated RBCs 0.0 % 09/15 09:39 :00 [facility] THERAPEUTI C DRUGS Methotrexate Lvl 0.08 umol/L 09/15 09:39 :00 [facility] URINALYSIS RBC None Seen /hpf 0 - 2 09/15 02:58 :00 [facility] URINALYSIS UA Epithelial Cells None Seen /lpf 09/15 02:58 :00 [facility] URINALYSIS WBC 0-3 /hpf 0 - 3 09/15 02:58 :00 [facility] URINALYSIS COLOR Colorless (09/14/24 8:58 PM) 09/15 02:58 :00 [facility] URINALYSIS CLARITY Clear (09/14/24 8:58 PM) 09/15 02:58 :00 [facility] URINALYSIS SPECIFIC GRAVITY 1.003 1.006 - 1.030 09/15 02:58 :00 [facility] URINALYSIS UA UROBILINOGEN Negative Yumi unit/dL 0.2 - 1.0 09/15 02:58 :00 [facility] URINALYSIS BILIRUBIN Negative (09/14/24 8:58 PM) 09/15 02:58 :00 [facility] URINALYSIS UA KETONES Negative mg/dL 09/15 02:58 :00 [facility] URINALYSIS UA GLUCOSE Negative mg/dL 09/15 02:58 :00 [facility] URINALYSIS UA PH 9 *NA* (09/14/24 8:58 PM) 4.5 - 8.0 09/15 02:58 :00 [facility] URINALYSIS UA PROTEIN Negative mg/dL 09/15 02:58 :00 [facility] URINALYSIS UA NITRITE Negative (09/14/24 8:58 PM) 09/15 02:58 :00 [facility] URINALYSIS UA LEUKOCYTES Negative (09/14/24 8:58 PM) 09/15 02:58 :00 [facility] URINALYSIS UA BLOOD Negative 17 (09/14/24 8:58 PM) 09/15 02:58 :00 Result Comment: A hemoglobin concentration of 0.015-0.062 mg/dL is approximately equivalent to 5 -20 intact red blood cells per microliter. [facility] THERAPEUTI C DRUGS Methotrexate Lvl 0.10 umol/L 09/15 02:42 :00 [facility] URINALYSIS RBC None Seen /hpf 0 - 2 09/14 19:47 :00 [facility] URINALYSIS WBC None Seen /hpf 0 - 3 09/14 19:47 :00 [facility] URINALYSIS UA Epithelial Cells None Seen /lpf 09/14 19:47 :00 [facility] URINALYSIS UA UROBILINOGEN Negative Yumi unit/dL 0.2 - 1.0 09/14 19:47 :00 [facility] URINALYSIS UA BLOOD Negative 18 (09/14/24 1:47 PM) 09/14 19:47 :00 Result Comment: A hemoglobin concentration of 0.015-0.062 mg/dL is approximately equivalent to 5 -20 intact red blood cells per microliter. [facility] URINALYSIS UA PROTEIN Negative mg/dL 09/14 19:47 :00 [facility] URINALYSIS UA NITRITE Negative (09/14/24 1:47 PM) 09/14 19:47 :00 [facility] URINALYSIS UA LEUKOCYTES Negative (09/14/24 1:47 PM) 09/14 19:47 :00 [facility] URINALYSIS COLOR Straw (09/14/24 1:47 PM) 09/14 19:47 :00 [facility] URINALYSIS CLARITY Clear (09/14/24 1:47 PM) 09/14 19:47 :00 [facility] URINALYSIS SPECIFIC GRAVITY 1.004 1.006 - 1.030 09/14 19:47 :00 [facility] URINALYSIS BILIRUBIN Negative (09/14/24 1:47 PM) 09/14 19:47 :00 [facility] URINALYSIS UA KETONES Negative mg/dL 09/14 19:47 :00 [facility] URINALYSIS UA GLUCOSE Negative mg/dL 09/14 19:47 :00 [facility] URINALYSIS UA PH 9 *NA* (09/14/24 1:47 PM) 4.5 - 8.0 09/14 19:47 :00 [facility] HEMATOLOGY PROFILES Abs Basophils 0.01 x10(9)/L 0.00 - 0.30 09/14 14:27 :00 [facility] HEMATOLOGY PROFILES Abs Immature Granulocytes 0.10 x10(9)/L 0.00 - 0.03 09/14 14:27 :00 [facility] [place] HEMATOLOGY PROFILES % Immature Granulocytes 0.90 % 0.02 - 0.42 09/14 14:27 :00 [facility] HEMATOLOGY PROFILES Absolute Granulocytes 8.18 x10(9)/L 1.70 - 7.00 09/14 14:27 :00 [facility] HEMATOLOGY PROFILES Abs Eosinophils 0.00 x10(9)/L 0.05 - 0.50 09/14 14:27 :00 [facility] [place] HEMATOLOGY PROFILES Abs Lymphocytes 0.51 x10(9)/L 0.90 - 2.90 09/14 14:27 :00 [facility] HEMATOLOGY PROFILES Abs Monocytes 1.76 x10(9)/L 0.30 - 0.90 09/14 14:27 :00 [facility] [place] HEMATOLOGY PROFILES % Neutrophils 77.5 % 09/14 14:27 :00 [facility] HEMATOLOGY PROFILES % Eosinophils 0.0 % 09/14 14:27 :00 [facility] [place] HEMATOLOGY PROFILES % Basophils 0.1 % 09/14 14:27 :00 [facility] HEMATOLOGY PROFILES % Lymphocytes 4.8 % 09/14 14:27 :00 [facility] [place] HEMATOLOGY PROFILES % Monocytes 16.7 % 09/14 14:27 :00 [facility] HEMATOLOGY PROFILES Schistocytes 1+ (Rare-3%) *NA* (09/14/24 8:27 AM) 09/14 14:27 :00 [facility] HEMATOLOGY PROFILES Stomatocytes 1+ (10-25%) *NA* (09/14/24 8:27 AM) 09/14 14:27 :00 [facility] HEMATOLOGY PROFILES Poly 1+ (2-10%) *NA* (09/14/24 8:27 AM) 09/14 14:27 :00 [facility] HEMATOLOGY PROFILES Macro 1+ (25-50%) *NA* (09/14/24 8:27 AM) 09/14 14:27 :00 [facility] HEMATOLOGY PROFILES Pappenheimer bodies Present *NA* (09/14/24 8:27 AM) 09/14 14:27 :00 [facility] HEMATOLOGY PROFILES Aniso 1+ (10-20%) *NA* (09/14/24 8:27 AM) 09/14 14:27 :00 [facility] HEMATOLOGY PROFILES Morphology Present *NA* (09/14/24 8:27 AM) 09/14 14:27 :00 [facility] HEMATOLOGY PROFILES Platelet Estimate Adequate *NA* (09/14/24 8:27 AM) 09/14 14:27 :00 [facility] HEMATOLOGY PROFILES Elliptocytes (Ovalocytes) 1+ (10-25%) *NA* (09/14/24 8:27 AM) 09/14 14:27 :00 [facility] HEMATOLOGY PROFILES Hypochromasi a 2+ (50-75%) *NA* (09/14/24 8:27 AM) 09/14 14:27 :00 [facility] THERAPEUTI C DRUGS Methotrexate Lvl 0.88 umol/L 09/14 13:06 :00 [facility] US Abdomen (Non Vascular) US Abdomen (Non Vascular) Ultrasound Accession # Exam Date/Time Procedure Ordering Provider [id number] 09/14/2024 12:42 DIRECT SERVICE PROFESSIONAL US Abdomen (Non Haleigh Dunlap MD, [facility]) Reason For Exam (US Abdomen (Non Vascular)) eleveted LFTs Report EXAMINATIO N: US Abdomen (Non Vascular) INDICATION : eleveted LFTs COMPARISON : Abdominal ultrasound 05/25/2024 TECHNIQUE: Grayscale, color and Limited spectral Doppler evaluation of the right upper quadrant was performed. FINDINGS: LIVER: Size (length): 17.2 cm Echogenici ty: Increased echogenici ty Parenchyma : Increased echotextur e. Intrahepat ic Bile Ducts: Nondilated Hepatic Veins: Patent Portal Vein: Hepatopeta l flow. PSV: 52 cm/s GALLBLADDE R: Wall Thickness: 2.2 mm Morphology : Phrygian cap/folded gallbladde r. Gallbladde r wall is normal. No pericholec ystic inflammati on. Lumen: Gallstones visualized . Sonographi c Martinez's Sign: Positive EXTRAHEPAT IC BILE DUCTS: Common Bile Duct Diameter: 2.8 mm RIGHT KIDNEY: Length: 11.7 cm Width: 5.7 cm Height: 4.7 cm Morphology /parenchym a: Cortical medullary differenti ation is maintained . Collecting System: No hydronephr osis. PANCREAS: Visualized portions of the pancreas are unremarkab le. OTHER: Fluid: No free fluid. IMPRESSION : 1. Cholelithi asis with reported positive sonographi c Martinez sign. No other secondary signs of cholecysti tis. Recommend further evaluation with the medicine HIDA scan. 2. Diffuse hepatic steatosis. Attending addendum: These findings represent a change from the preliminar y interpreta tion which did not recommend further evaluation with HIDA scan. Ultrasound Report I have personally reviewed the images and attest to the contents of this report. * * *Final Report* * * Electronic ally Signed by: Khanh BRISCOE, Dinesh Sung Signed on: 09/14/24 15:18 09/14 11:27 :29 [facility] URINALYSIS UA NITRITE Negative (09/14/24 4:19 AM) 09/14 10:19 :00 [facility] URINALYSIS UA PROTEIN Negative mg/dL 09/14 10:19 :00 [facility] URINALYSIS UA LEUKOCYTES Negative (09/14/24 4:19 AM) 09/14 10:19 :00 [facility] URINALYSIS UA BLOOD Negative 19 (09/14/24 4:19 AM) 09/14 10:19 :00 Result Comment: A hemoglobin concentration of 0.015-0.062 mg/dL is approximately equivalent to 5 -20 intact red blood cells per microliter. [facility] URINALYSIS UA KETONES Negative mg/dL 09/14 10:19 :00 [facility] URINALYSIS UA UROBILINOGEN Negative Yumi unit/dL 0.2 - 1.0 09/14 10:19 :00 [facility] URINALYSIS BILIRUBIN Negative (09/14/24 4:19 AM) 09/14 10:19 :00 [facility] URINALYSIS UA PH 9 *NA* (09/14/24 4:19 AM) 4.5 - 8.0 09/14 10:19 :00 [facility] URINALYSIS SPECIFIC GRAVITY 1.006 1.006 - 1.030 09/14 10:19 :00 [facility] URINALYSIS UA GLUCOSE Negative mg/dL 09/14 10:19 :00 [facility] URINALYSIS COLOR Straw (09/14/24 4:19 AM) 09/14 10:19 :00 [facility] URINALYSIS CLARITY Clear (09/14/24 4:19 AM) 09/14 10:19 :00 [facility] URINALYSIS WBC 0-3 /hpf 0 - 3 09/14 10:19 :00 [facility] URINALYSIS UA Epithelial Cells None Seen /lpf 09/14 10:19 :00 [facility] URINALYSIS RBC None Seen /hpf 0 - 2 09/14 10:19 :00 [facility] GENERAL CHEMISTRY Magnesium 1.51 mg/dL 1.60 - 2.60 09/14 10:15 :00 [facility] GENERAL CHEMISTRY Phosphorus 2.5 mg/dL 2.4 - 5.1 09/14 10:15 :00 [facility] HEMATOLOGY PROFILES Abs Lymphocytes Manual 0.32 x10(9)/L 0.90 - 2.90 09/14 10:15 :00 [facility] HEMATOLOGY PROFILES Absolute Neutrophils Manual 7.29 x10(9)/L 1.70 - 7.00 09/14 10:15 :00 [facility] HEMATOLOGY PROFILES Abs Monocytes Manual 0.16 x10(9)/L 0.30 - 0.90 09/14 10:15 :00 [facility] HEMATOLOGY PROFILES Neuts Manual 93.8 % 09/14 10:15 :00 [facility] HEMATOLOGY PROFILES Lymphocytes Manual 4.1 % 09/14 10:15 :00 [facility] HEMATOLOGY PROFILES Monocytes Manual 2.1 % 09/14 10:15 :00 [facility] HEMATOLOGY PROFILES Morphology Present *NA* (09/14/24 4:15 AM) 09/14 10:15 :00 [facility] HEMATOLOGY PROFILES Platelet Estimate Adequate *NA* (09/14/24 4:15 AM) 09/14 10:15 :00 [facility] HEMATOLOGY PROFILES Aniso 1+ (10-20%) *NA* (09/14/24 4:15 AM) 09/14 10:15 :00 [facility] GENERAL CHEMISTRY Magnesium 1.86 mg/dL 1.60 - 2.60 09/13 11:17 :00 [facility] GENERAL CHEMISTRY Phosphorus 2.8 mg/dL 2.4 - 5.1 09/13 11:17 :00 [facility] XR Panorex XR Panorex XR General Diagnostic Accession # Exam Date/Time Procedure Ordering Provider [id number] 09/13/2024 08:14 DIRECT SERVICE PROFESSIONAL XR Panorex Jarad Kelley MD Reason For Exam (XR Panorex) tooth pain Report EXAMINATIO N: XR Panorex INDICATION : tooth pain VIEWS: Single Panorex view COMPARISON : CT of the facial bones 04/28/2024 FINDINGS / IMPRESSION : Multifocal dental caries and erosions. Periapical lucencies involving the root tips of teeth #2, 10, 14 and 15. I have personally reviewed the images and attest to the contents of this report. * * *Final Report* * * Electronic ally Signed by: Ben Garcia DO Signed on: 09/13/24 09:30 09/13 08:04 :52 [facility] URINALYSIS Urine Collection Method Clean Catch UR (09/12/24 5:31 PM) 09/12 23:31 :00 [facility] URINALYSIS UA Hyaline Casts 0-3 /lpf 0 - 3 09/12 23:31 :00 [facility] URINALYSIS UA Mucous Present *ABNORMAL* (09/12/24 2:55 PM) 09/12 20:55 :00 [facility] GENERAL CHEMISTRY Glucose Lvl 106 mg/dL 70 - 139 09/12 15:07 :00 [facility] GENERAL CHEMISTRY Chloride 99 mmol/L 98 - 107 09/12 15:07 :00 [facility] GENERAL CHEMISTRY Calcium 9.7 mg/dL 8.3 - 10.6 09/12 15:07 :00 [facility] GENERAL CHEMISTRY Sodium 136 mmol/L 136 - 145 09/12 15:07 :00 [facility] GENERAL CHEMISTRY Potassium 4.2 mmol/L 3.5 - 5.1 09/12 15:07 :00 [facility] GENERAL CHEMISTRY Estimated GFR for Adults 132 mL/min/1.7 3m 09/12 15:07 :00 Interpretive Data: Changed to CKD-EPI 2020 on 2020. [facility] GENERAL CHEMISTRY Estimated GFR for peds Not Calculated mL/min/1.7 3m 09/12 15:07 :00 Interpretive Data: The estimated GFR was calculated using the Teddy barker Dorado equation (2009) . Reference: Pediatric GFR calculator at [employer] Website. [facility] GENERAL CHEMISTRY Albumin 4.5 g/dL 3.4 - 5.0 09/12 15:07 :00 [facility] GENERAL CHEMISTRY T Bili 0.50 mg/dL 0.30 - 1.20 09/12 15:07 :00 [facility] GENERAL CHEMISTRY Alkaline Phosphatase 126 U/L 40 - 129 09/12 15:07 :00 [facility] GENERAL CHEMISTRY Total Protein 7.3 g/dL 5.7 - 8.2 09/12 15:07 :00 [facility] GENERAL CHEMISTRY CO2 26 mmol/L 20 - 31 09/12 15:07 :00 [facility] GENERAL CHEMISTRY AST-SGOT 68 U/L 09/12 15:07 :00 [facility] GENERAL CHEMISTRY Anion gap 15 mmol/L 0 - 20 09/12 15:07 :00 [facility] GENERAL CHEMISTRY ALT-SGPT 71 U/L 10 - 50 09/12 15:07 :00 [facility] GENERAL CHEMISTRY Creatinine, standardized 0.7 mg/dL 0.7 - 1.2 09/12 15:07 :00 Interpretive Data: Rmcadj-rh-hun e transgender patients on testosterone therapy should have results assessed using the male reference range. Qqam-ex-ncttk e transgender patients on hormone-modul ating therapy clinical judgment is advisedfor assessment. [facility] GENERAL CHEMISTRY BUN 21 mg/dL 6 - 20 09/12 15:07 :00 [facility] HEMATOLOGY PROFILES Path Review Smear Pathologis t Review of Smear Interpreta tion: Agrees w/ abs. monocytosi s >#1.5. Interprete d by: Evelina Escalante M.D. 09/12 15:07 :00 [facility] HEMATOLOGY PROFILES QA Review Agree (09/12/24 9:07 AM) 09/12 15:07 :00 [facility] HEMATOLOGY PROFILES Aniso 2+ (20-50%) *NA* (09/12/24 9:07 AM) 09/12 15:07 :00 [facility] HEMATOLOGY PROFILES Abs Lymphocytes Manual 1.32 x10(9)/L 0.90 - 2.90 09/12 15:07 :00 [facility] HEMATOLOGY PROFILES Elliptocytes (Ovalocytes) 1+ (10-25%) *NA* (09/12/24 9:07 AM) 09/12 15:07 :00 [facility] HEMATOLOGY PROFILES Promyelos hp 1.0 % 09/12 15:07 :00 [facility] HEMATOLOGY PROFILES Absolute Neutrophils Manual 9.52 x10(9)/L 1.70 - 7.00 09/12 15:07 :00 [facility] HEMATOLOGY PROFILES Macro 1+ (25-50%) *NA* (09/12/24 9:07 AM) 09/12 15:07 :00 [facility] HEMATOLOGY PROFILES Teardrop 1+ (3-6%) *NA* (09/12/24 9:07 AM) 09/12 15:07 :00 [facility] HEMATOLOGY PROFILES Neuts Manual 72.0 % 09/12 15:07 :00 [facility] HEMATOLOGY PROFILES Abs Monocytes Manual 2.25 x10(9)/L 0.30 - 0.90 09/12 15:07 :00 [facility] HEMATOLOGY PROFILES Morphology Present *NA* (09/12/24 9:07 AM) 09/12 15:07 :00 [facility] HEMATOLOGY PROFILES Platelet Estimate Adequate *NA* (09/12/24 9:07 AM) 09/12 15:07 :00 [facility] HEMATOLOGY PROFILES Abs Promyelos 0.13 x10(9)/L 0.00 - 0.11 09/12 15:07 :00 [facility] HEMATOLOGY PROFILES Lymphocytes Manual 10.0 % 09/12 15:07 :00 [facility] HEMATOLOGY PROFILES Monocytes Manual 17.0 % 09/12 15:07 :00 [facility] HEMATOLOGY PROFILES Internal Review Yes (09/12/24 9:07 AM) 09/12 15:07 :00 [facility] HEMATOLOGY PROFILES MCH 33.5 pg 26.0 - 33.0 09/12 15:07 :00 [facility] HEMATOLOGY PROFILES MCHC 32.5 g/dL 32.0 - 36.0 09/12 15:07 :00 [facility] HEMATOLOGY PROFILES PLT 296 x10(9)/L 150 - 450 09/12 15:07 :00 [facility] HEMATOLOGY PROFILES RDW CV 20.0 % 11.8 - 15.6 09/12 15:07 :00 [facility] HEMATOLOGY PROFILES RDW SD 73.4 fL 35.1 - 43.9 09/12 15:07 :00 [facility] HEMATOLOGY PROFILES WBC 13.22 x10(9)/L 3.50 - 10.50 09/12 15:07 :00 [facility] HEMATOLOGY PROFILES RBC 3.28 x10(12)/L 4.32 - 5.72 09/12 15:07 :00 [facility] HEMATOLOGY PROFILES MPV 10.6 8.0 - 12.0 09/12 15:07 :00 [facility] HEMATOLOGY PROFILES MCV 103.0 fL 81.2 - 95.1 09/12 15:07 :00 [facility] HEMATOLOGY PROFILES HGB 11.0 g/dL 13.5 - 17.5 09/12 15:07 :00 Interpretive Data: Rykssl-hc-ldk e transgender patients on testosterone therapy should have results assessed using the male reference range. Teug-lr-ldvcs e transgender patients on hormone-modul ating therapy clinical judgment is advisedfor assessment. [facility] HEMATOLOGY PROFILES HCT 33.8 % 38.8 - 50.0 09/12 15:07 :00 Interpretive Data: Frbsbb-ex-tsm e transgender patients on testosterone therapy should have results assessed using the male reference range. Awee-zw-luokv e transgender patients on hormone-modul ating therapy clinical judgment is advisedfor assessment. [facility] XR Chest Portable XR Chest Portable XR General Diagnostic Accession # Exam Date/Time Procedure Ordering Provider [id number] 09/12/2024 13:15 DIRECT SERVICE PROFESSIONAL XR Chest Portable Jarad Kelley MD Reason For Exam (XR Chest Portable) PICC confirmati on Report EXAMINATIO N: XR Chest Portable INDICATION : PICC confirmati on VIEWS: 1 COMPARISON : Chest radiograph 07/19/2024 FINDINGS: Left upper extremity PICC terminates at the superior cavoatrial junction. Normal cardiomedi astinal silhouette . No focal parenchyma l process. No pleural effusions. No pneumothor ax. No acute osseous abnormalit ies. IMPRESSION : Left upper extremity PICC terminates in superior cavoatrial junction. I have personally reviewed the images and attest to the contents of this report. * * *Final Report* * * Electronic ally Signed by: Lucia BRISCOE, Mo Hyman Signed on: 09/12/24 14:10 09/12 12:18 :57 [facility] BODY FLUIDS/CSF CSF, Protein 13 mg/dL 15 - 45 08/23 20:20 :00 [facility] BODY FLUIDS/CSF CSF, Glucose 79 mg/dL 40 - 70 08/23 20:20 :00 [facility] BODY FLUIDS/CSF CSF Cutoff Values See Comment 16 (08/23/24 2:20 PM) 08/23 20:20 :00 Interpretive Data: Cells: Cells Adults Neonates WBC 0-5 WBC/uL 0-30 WBC/uL RBC Absent Absent Neutrophils 0-6% 0-8% Lymphocytes 40-80% 5-35% Monocytes 15-45% 50-90% Eosinophils Rare Rare Note: These Reference ranges or Cutoff Values of normal vs. abnormal are based on the peer reviewed literature and reference texts. We cannot define 95% range for normal patients, as it would require invasive sampling of normal people. [facility] BODY FLUIDS/CSF CSF, Spec Appear Clear (08/23/24 2:20 PM) 08/23 20:20 :00 [facility] BODY FLUIDS/CSF CSF, Color Colorless (08/23/24 2:20 PM) 08/23 20:20 :00 [facility] BODY FLUIDS/CSF CSF, WBC 2 /mcL 08/23 20:20 :00 Interpretive Data: Variation from manual counting may exceed 50% and approach 15-20% using automated method. Pleocytosis in Adults (increased WBC count) may be graded: Mild: 5-50 WBC/uL Moderate: 51-200 WBC/uL Severe: > 200 WBC/uL CSF may have > 60% neutrophils in high-risk neonates without meningitis [facility] BODY FLUIDS/CSF CSF, RBC 2 /mcL 08/23 20:20 :00 Interpretive Data: Variation from manual counting may exceed 50% and approach 15-20% using automated method. [facility] BODY FLUIDS/CSF Other Cells % CSF 5.0 % 08/23 20:20 :00 [facility] BODY FLUIDS/CSF CSF Cell Count-Neuts % 0 % 08/23 20:20 :00 [facility] BODY FLUIDS/CSF Monos/Macros /Histios % CSF 65.0 % 08/23 20:20 :00 [facility] BODY FLUIDS/CSF Lymph % CSF 30.0 % 08/23 20:20 :00 [facility] BODY FLUIDS/CSF CSF, Pathologist Review Pathologis t Review of CSF Interpreta tion: Agree. Others are ventricula r lining cells. Interprete d by: Evelina Escalante M.D. 08/23 20:20 :00 [facility] Cytology Non-ALCOHOL STILL OPERATOR Report Cytology Non-ALCOHOL STILL OPERATOR Report CYTOLOGY MEDICAL REPORT Patient Name: EVELINA DO Specimen Number: [id number] Patient Collection Date: 08/23/2024 Submitting Physician: Heike Barrientos MD Signout Date: 08/26/2024 Other Physician( s): Aleisha Gordon MD ======== FINAL DIAGNOSIS CEREBROSPI NAL FLUID: Negative for leukemia. Please see previous material ([id number], [id number], [id number], [id number]) . Please see comment. Diagnosis Comment Microscopi c Descriptio n: Review of Luo's stained cytospin preparatio ns demonstrat es scattered small mature lymphocyte s and monocytes. Rare multinucle ated giant cells are present. Ependymal cells are also present. No blasts are identified . ======== Source of Specimen(s ) CEREBROSPI NAL FLUID Clinical History B-ALL Descriptio n of Specimen RECEIVED 3 ML OF FRESH CLOUDY FLUID HEMATOLOGY PREPARED 2 CYTOSPINS All slides and preparatio ns are stained and microscopi guilherme examined in the laboratory . All outside slides are received stained and are microscopi guilherme examined in the laboratory . The performanc e characteri stics of the immunohist ochemical stains cited in this report (if any) were determined by the [facility] Department of Pathology. They have not been cleared or approved by the U.S. Food and Drug Administra tion. The FDA has determined that such clearance or approval is not necessary. This test is for clinical purposes. It should not be regarded as investigat ional or for research. This laboratory is certified under the Clinical Laboratory Improvemen t Amendments of 1988 (CLIA) as qualified to perform high complexity clinical laboratory testing. 08/23 14:19 :00 Missing Attachment [id number].PDF can be viewed in source system [facility] GENERAL CHEMISTRY Chloride 103 mmol/L 98 - 107 08/23 09:18 :00 [facility] GENERAL CHEMISTRY Sodium 142 mmol/L 136 - 145 08/23 09:18 :00 [facility] GENERAL CHEMISTRY Calcium 9.2 mg/dL 8.3 - 10.6 08/23 09:18 :00 [facility] GENERAL CHEMISTRY Glucose Lvl 129 mg/dL 70 - 139 08/23 09:18 :00 [facility] GENERAL CHEMISTRY Potassium 3.9 mmol/L 3.5 - 5.1 08/23 09:18 :00 [facility] GENERAL CHEMISTRY CO2 29 mmol/L 20 - 31 08/23 09:18 :00 [facility] GENERAL CHEMISTRY Alkaline Phosphatase 79 U/L 40 - 129 08/23 09:18 :00 [facility] GENERAL CHEMISTRY ALT-SGPT 26 U/L 10 - 50 08/23 09:18 :00 [facility] GENERAL CHEMISTRY AST-SGOT 21 U/L 08/23 09:18 :00 [facility] GENERAL CHEMISTRY Albumin 3.6 g/dL 3.4 - 5.0 08/23 09:18 :00 [facility] GENERAL CHEMISTRY BUN 13 mg/dL 6 - 20 08/23 09:18 :00 [facility] GENERAL CHEMISTRY Estimated GFR for Adults 142 mL/min/1.7 3m 08/23 09:18 :00 Interpretive Data: Changed to CKD-EPI 2020 on 2020. [facility] GENERAL CHEMISTRY Estimated GFR for peds Not Calculated mL/min/1.7 3m 08/23 09:18 :00 Interpretive Data: The estimated GFR was calculated using the B lucero Dorado equation (2009) . Reference: Pediatric GFR calculator at [employer] Website. [facility] GENERAL CHEMISTRY Total Protein 6.1 g/dL 5.7 - 8.2 08/23 09:18 :00 [facility] GENERAL CHEMISTRY Anion gap 14 mmol/L 0 - 20 08/23 09:18 :00 [facility] GENERAL CHEMISTRY T Bili 0.43 mg/dL 0.30 - 1.20 08/23 09:18 :00 [facility] GENERAL CHEMISTRY Creatinine, standardized 0.5 mg/dL 0.7 - 1.2 08/23 09:18 :00 Interpretive Data: Gpplha-ua-xhx e transgender patients on testosterone therapy should have results assessed using the male reference range. Bibv-hz-fynxy e transgender patients on hormone-modul ating therapy clinical judgment is advisedfor assessment. [facility] HEMATOLOGY PROFILES Teardrop 1+ (3-6%) *NA* (08/23/24 3:18 AM) 08/23 09:18 :00 [facility] HEMATOLOGY PROFILES Monocytes Manual 8.0 % 08/23 09:18 :00 [facility] HEMATOLOGY PROFILES Neuts Manual 92.0 % 08/23 09:18 :00 [facility] HEMATOLOGY PROFILES Morphology Present *NA* (08/23/24 3:18 AM) 08/23 09:18 :00 [facility] HEMATOLOGY PROFILES Abs Monocytes Manual 0.96 x10(9)/L 0.30 - 0.90 08/23 09:18 :00 [facility] HEMATOLOGY PROFILES Absolute Neutrophils Manual 11.03 x10(9)/L 1.70 - 7.00 08/23 09:18 :00 [facility] HEMATOLOGY PROFILES Internal Review Yes (08/23/24 3:18 AM) 08/23 09:18 :00 [facility] HEMATOLOGY PROFILES Platelet Estimate Adequate *NA* (08/23/24 3:18 AM) 08/23 09:18 :00 [facility] HEMATOLOGY PROFILES Aniso 2+ (20-50%) *NA* (08/23/24 3:18 AM) 08/23 09:18 :00 [facility] HEMATOLOGY PROFILES Elliptocytes (Ovalocytes) 1+ (10-25%) *NA* (08/23/24 3:18 AM) 08/23 09:18 :00 [facility] HEMATOLOGY PROFILES Macro 1+ (25-50%) *NA* (08/23/24 3:18 AM) 08/23 09:18 :00 [facility] HEMATOLOGY PROFILES MCHC 31.7 g/dL 32.0 - 36.0 08/23 09:18 :00 [facility] HEMATOLOGY PROFILES MCH 32.2 pg 26.0 - 33.0 08/23 09:18 :00 [facility] HEMATOLOGY PROFILES MCV 101.3 fL 81.2 - 95.1 08/23 09:18 :00 [facility] HEMATOLOGY PROFILES HCT 31.5 % 38.8 - 50.0 08/23 09:18 :00 Interpretive Data: Jaehre-fg-rfa e transgender patients on testosterone therapy should have results assessed using the male reference range. Kylx-wq-gynrd e transgender patients on hormone-modul ating therapy clinical judgment is advisedfor assessment. [facility] HEMATOLOGY PROFILES HGB 10.0 g/dL 13.5 - 17.5 08/23 09:18 :00 Interpretive Data: Lhiwit-kg-oes e transgender patients on testosterone therapy should have results assessed using the male reference range. Hgat-qr-telok e transgender patients on hormone-modul ating therapy clinical judgment is advisedfor assessment. [facility] HEMATOLOGY PROFILES MPV 10.2 8.0 - 12.0 08/23 09:18 :00 [facility] HEMATOLOGY PROFILES PLT 206 x10(9)/L 150 - 450 08/23 09:18 :00 [facility] HEMATOLOGY PROFILES RDW SD 78.7 fL 35.1 - 43.9 08/23 09:18 :00 [facility] HEMATOLOGY PROFILES RDW CV 22.0 % 11.8 - 15.6 08/23 09:18 :00 [facility] HEMATOLOGY PROFILES RBC 3.11 x10(12)/L 4.32 - 5.72 08/23 09:18 :00 [facility] HEMATOLOGY PROFILES WBC 11.99 x10(9)/L 3.50 - 10.50 08/23 09:18 :00 [facility] HEMATOLOGY PROFILES QA Review Agree (08/23/24 3:18 AM) 08/23 09:18 :00 [facility] HEMATOLOGY PROFILES Path Review Smear Pathologis t Review of Smear Interpreta tion: Agree Interprete d by: Susy Barragan i, MD 08/23 09:18 :00 [facility] GENERAL CHEMISTRY Creatinine, standardized 0.5 mg/dL 0.7 - 1.2 08/22 10:15 :00 Interpretive Data: Yordit-vp-fer e transgender patients on testosterone therapy should have results assessed using the male reference range. Uiha-rw-cfsyj e transgender patients on hormone-modul ating therapy clinical judgment is advisedfor assessment. [facility] GENERAL CHEMISTRY Estimated GFR for Adults 141 mL/min/1.7 3m 08/22 10:15 :00 Interpretive Data: Changed to CKD-EPI 2020 on 2020. [facility] GENERAL CHEMISTRY Estimated GFR for peds Not Calculated mL/min/1.7 3m 08/22 10:15 :00 Interpretive Data: The estimated GFR was calculated using the Teddy barker Dorado equation (2009) . Reference: Pediatric GFR calculator at [employer] Website. [facility] GENERAL CHEMISTRY Chloride 108 mmol/L 98 - 107 08/22 10:15 :00 [facility] GENERAL CHEMISTRY Glucose Lvl 127 mg/dL 70 - 139 08/22 10:15 :00 [facility] GENERAL CHEMISTRY Sodium 143 mmol/L 136 - 145 08/22 10:15 :00 [facility] GENERAL CHEMISTRY Calcium 8.4 mg/dL 8.3 - 10.6 08/22 10:15 :00 [facility] GENERAL CHEMISTRY BUN 14 mg/dL 6 - 20 08/22 10:15 :00 [facility] GENERAL CHEMISTRY Total Protein 5.5 g/dL 5.7 - 8.2 08/22 10:15 :00 [facility] GENERAL CHEMISTRY T Bili 0.21 mg/dL 0.30 - 1.20 08/22 10:15 :00 [facility] GENERAL CHEMISTRY Potassium 3.6 mmol/L 3.5 - 5.1 08/22 10:15 :00 [facility] CHEMISTRY Anion gap 15 mmol/L 0 - 20 08/22 10:15 :00 [facility] GENERAL CHEMISTRY CO2 24 mmol/L 20 - 31 08/22 10:15 :00 [facility] CHEMISTRY Alkaline Phosphatase 82 U/L 40 - 129 08/22 10:15 :00 [facility] GENERAL CHEMISTRY Albumin 3.4 g/dL 3.4 - 5.0 08/22 10:15 :00 [facility] CHEMISTRY ALT-SGPT 20 U/L 10 - 50 08/22 10:15 :00 [facility] GENERAL CHEMISTRY AST-SGOT 22 U/L 08/22 10:15 :00 [facility] HEMATOLOGY PROFILES WBC 9.18 x10(9)/L 3.50 - 10.50 08/22 10:15 :00 [facility] HEMATOLOGY PROFILES RBC 2.66 x10(12)/L 4.32 - 5.72 08/22 10:15 :00 [facility] HEMATOLOGY PROFILES HGB 8.6 g/dL 13.5 - 17.5 08/22 10:15 :00 Interpretive Data: Nrdykh-op-fmb e transgender patients on testosterone therapy should have results assessed using the male reference range. Yfmo-lh-wrjtx e transgender patients on hormone-modul ating therapy clinical judgment is advisedfor assessment. [facility] HEMATOLOGY PROFILES RDW SD 81.0 fL 35.1 - 43.9 08/22 10:15 :00 [facility] HEMATOLOGY PROFILES PLT 174 x10(9)/L 150 - 450 08/22 10:15 :00 [facility] HEMATOLOGY PROFILES MPV 10.4 8.0 - 12.0 08/22 10:15 :00 [facility] HEMATOLOGY PROFILES MCHC 31.7 g/dL 32.0 - 36.0 08/22 10:15 :00 [facility] HEMATOLOGY PROFILES RDW CV 22.5 % 11.8 - 15.6 08/22 10:15 :00 [facility] HEMATOLOGY PROFILES HCT 27.1 % 38.8 - 50.0 08/22 10:15 :00 Interpretive Data: Qbdxdy-mz-oyv e transgender patients on testosterone therapy should have results assessed using the male reference range. Iaww-av-niekl e transgender patients on hormone-modul ating therapy clinical judgment is advisedfor assessment. [facility] HEMATOLOGY PROFILES MCV 101.9 fL 81.2 - 95.1 08/22 10:15 :00 [facility] HEMATOLOGY PROFILES MCH 32.3 pg 26.0 - 33.0 08/22 10:15 :00 [facility] HEMATOLOGY PROFILES Absolute Nucleated RBCs 0.0 x10(9)/L 0.0 - 0.0 08/22 10:15 :00 Interpretive Data: Normal values not established in patients less than 18 years old. [facility] HEMATOLOGY PROFILES % Neutrophils 86.5 % 08/22 10:15 :00 [facility] HEMATOLOGY PROFILES % Lymphocytes 1.9 % 08/22 10:15 :00 [facility] HEMATOLOGY PROFILES % Monocytes 10.8 % 08/22 10:15 :00 [facility] HEMATOLOGY PROFILES Abs Basophils 0.00 x10(9)/L 0.00 - 0.30 08/22 10:15 :00 [facility] HEMATOLOGY PROFILES % Eosinophils 0.0 % 08/22 10:15 :00 [facility] HEMATOLOGY PROFILES % Basophils 0.0 % 08/22 10:15 :00 [facility] HEMATOLOGY PROFILES Absolute Granulocytes 7.95 x10(9)/L 1.70 - 7.00 08/22 10:15 :00 [facility] HEMATOLOGY PROFILES Abs Lymphocytes 0.17 x10(9)/L 0.90 - 2.90 08/22 10:15 :00 [facility] HEMATOLOGY PROFILES Abs Monocytes 0.99 x10(9)/L 0.30 - 0.90 08/22 10:15 :00 [facility] HEMATOLOGY PROFILES Abs Eosinophils 0.00 x10(9)/L 0.05 - 0.50 08/22 10:15 :00 [facility] HEMATOLOGY PROFILES % Nucleated RBCs 0.0 % 08/22 10:15 :00 [facility] HEMATOLOGY PROFILES Platelet Estimate Adequate (08/22/24 4:15 AM) 08/22 10:15 :00 [facility] HEMATOLOGY PROFILES Aniso 2+ (20-50%) (08/22/24 4:15 AM) 08/22 10:15 :00 [facility] HEMATOLOGY PROFILES Schistocytes 1+ (Rare-3%) (08/22/24 4:15 AM) 08/22 10:15 :00 [facility] HEMATOLOGY PROFILES Morphology Present (08/22/24 4:15 AM) 08/22 10:15 :00 [facility] GENERAL CHEMISTRY Albumin 3.9 g/dL 3.4 - 5.0 08/21 10:48 :00 [facility] GENERAL CHEMISTRY AST-SGOT 27 U/L 08/21 10:48 :00 [facility] GENERAL CHEMISTRY BUN 10 mg/dL 6 - 20 08/21 10:48 :00 [facility] GENERAL CHEMISTRY ALT-SGPT 24 U/L 10 - 50 08/21 10:48 :00 [facility] GENERAL CHEMISTRY Alkaline Phosphatase 101 U/L 40 - 129 08/21 10:48 :00 [facility] GENERAL CHEMISTRY Glucose Lvl 123 mg/dL 70 - 139 08/21 10:48 :00 [facility] GENERAL CHEMISTRY Calcium 9.7 mg/dL 8.3 - 10.6 08/21 10:48 :00 [facility] GENERAL CHEMISTRY Potassium 4.0 mmol/L 3.5 - 5.1 08/21 10:48 :00 [facility] GENERAL CHEMISTRY Sodium 142 mmol/L 136 - 145 08/21 10:48 :00 [facility] GENERAL CHEMISTRY Chloride 105 mmol/L 98 - 107 08/21 10:48 :00 [facility] GENERAL CHEMISTRY Anion gap 14 mmol/L 0 - 20 08/21 10:48 :00 [facility] GENERAL CHEMISTRY CO2 27 mmol/L 20 - 31 08/21 10:48 :00 [facility] CHEMISTRY Creatinine, standardized 0.5 mg/dL 0.7 - 1.2 08/21 10:48 :00 Interpretive Data: Vqmeaw-rq-stj e transgender patients on testosterone therapy should have results assessed using the male reference range. Gfxy-ri-txnmb e transgender patients on hormone-modul ating therapy clinical judgment is advisedfor assessment. [facility] GENERAL CHEMISTRY Total Protein 6.6 g/dL 5.7 - 8.2 08/21 10:48 :00 [facility] GENERAL CHEMISTRY T Bili 0.31 mg/dL 0.30 - 1.20 08/21 10:48 :00 Result Comment: see qc comments [facility] GENERAL CHEMISTRY Estimated GFR for peds Not Calculated mL/min/1.7 3m 08/21 10:48 :00 Interpretive Data: The estimated GFR was calculated using the Teddy barker Dorado equation (2009) . Reference: Pediatric GFR calculator at [employer] Website. [facility] CHEMISTRY Estimated GFR for Adults 142 mL/min/1.7 3m 08/21 10:48 :00 Interpretive Data: Changed to CKD-EPI 2020 on 2020. [facility] GENERAL CHEMISTRY LDH 210 U/L 120 - 246 08/21 10:48 :00 [facility] GENERAL CHEMISTRY Phosphorus 3.6 mg/dL 2.4 - 5.1 08/21 10:48 :00 [facility] GENERAL CHEMISTRY Uric Acid 5.6 mg/dL 3.7 - 9.2 08/21 10:48 :00 [facility] HEMATOLOGY PROFILES Elliptocytes (Ovalocytes) 1+ (10-25%) *NA* (08/21/24 4:48 AM) 08/21 10:48 :00 [facility] HEMATOLOGY PROFILES Aniso 1+ (10-20%) *NA* (08/21/24 4:48 AM) 08/21 10:48 :00 [facility] HEMATOLOGY PROFILES Platelet Estimate Adequate *NA* (08/21/24 4:48 AM) 08/21 10:48 :00 [facility] HEMATOLOGY PROFILES Morphology Present *NA* (08/21/24 4:48 AM) 08/21 10:48 :00 [facility] HEMATOLOGY PROFILES Monocytes Manual 0.9 % 08/21 10:48 :00 [facility] HEMATOLOGY PROFILES Lymphocytes Manual 6.9 % 08/21 10:48 :00 [facility] HEMATOLOGY PROFILES Neuts Manual 92.2 % 08/21 10:48 :00 [facility] HEMATOLOGY PROFILES Abs Monocytes Manual 0.05 x10(9)/L 0.30 - 0.90 08/21 10:48 :00 [facility] HEMATOLOGY PROFILES Abs Lymphocytes Manual 0.40 x10(9)/L 0.90 - 2.90 08/21 10:48 :00 [facility] HEMATOLOGY PROFILES Absolute Neutrophils Manual 5.40 x10(9)/L 1.70 - 7.00 08/21 10:48 :00 [facility] HEMATOLOGY PROFILES Stomatocytes 1+ (10-25%) *NA* (08/21/24 4:48 AM) 08/21 10:48 :00 [facility] HEMATOLOGY PROFILES Poly 1+ (2-10%) *NA* (08/21/24 4:48 AM) 08/21 10:48 :00 [facility] HEMATOLOGY PROFILES Macro 1+ (25-50%) *NA* (08/21/24 4:48 AM) 08/21 10:48 :00 [facility] HEMATOLOGY PROFILES WBC 5.86 x10(9)/L 3.50 - 10.50 08/21 10:48 :00 [facility] HEMATOLOGY PROFILES HCT 29.7 % 38.8 - 50.0 08/21 10:48 :00 Interpretive Data: Mbjfsb-hd-ajg e transgender patients on testosterone therapy should have results assessed using the male reference range. Bfud-xe-osgzj e transgender patients on hormone-modul ating therapy clinical judgment is advisedfor assessment. [facility] HEMATOLOGY PROFILES HGB 9.5 g/dL 13.5 - 17.5 08/21 10:48 :00 Interpretive Data: Mmuvwq-br-spe e transgender patients on testosterone therapy should have results assessed using the male reference range. Tuzr-nz-szpfj e transgender patients on hormone-modul ating therapy clinical judgment is advisedfor assessment. [facility] HEMATOLOGY PROFILES RBC 2.96 x10(12)/L 4.32 - 5.72 08/21 10:48 :00 [facility] HEMATOLOGY PROFILES MCHC 32.0 g/dL 32.0 - 36.0 08/21 10:48 :00 [facility] HEMATOLOGY PROFILES RDW CV 22.3 % 11.8 - 15.6 08/21 10:48 :00 [facility] HEMATOLOGY PROFILES MCV 100.3 fL 81.2 - 95.1 08/21 10:48 :00 [facility] HEMATOLOGY PROFILES MCH 32.1 pg 26.0 - 33.0 08/21 10:48 :00 [facility] HEMATOLOGY PROFILES RDW SD 78.2 fL 35.1 - 43.9 08/21 10:48 :00 [facility] HEMATOLOGY PROFILES MPV 9.7 8.0 - 12.0 08/21 10:48 :00 [facility] HEMATOLOGY PROFILES PLT 200 x10(9)/L 150 - 450 08/21 10:48 :00 [facility] BODY FLUIDS/CSF CSF, Protein 19 mg/dL 15 - 45 08/20 21:30 :00 [facility] BODY FLUIDS/CSF CSF, Glucose 74 mg/dL 40 - 70 08/20 21:30 :00 [facility] BODY FLUIDS/CSF CSF, RBC 1 /mcL 08/20 21:30 :00 Interpretive Data: Variation from manual counting may exceed 50% and approach 15-20% using automated method. [facility] BODY FLUIDS/CSF CSF, WBC 0 /mcL 08/20 21:30 :00 Interpretive Data: Variation from manual counting may exceed 50% and approach 15-20% using automated method. Pleocytosis in Adults (increased WBC count) may be graded: Mild: 5-50 WBC/uL Moderate: 51-200 WBC/uL Severe: > 200 WBC/uL CSF may have > 60% neutrophils in high-risk neonates without meningitis [facility] BODY FLUIDS/CSF CSF, Spec Appear Clear (08/20/24 3:30 PM) 08/20 21:30 :00 [facility] BODY FLUIDS/CSF CSF, Color Colorless (08/20/24 3:30 PM) 08/20 21:30 :00 [facility] BODY FLUIDS/CSF CSF Cutoff Values See Comment 17 (08/20/24 3:30 PM) 08/20 21:30 :00 Interpretive Data: Cells: Cells Adults Neonates WBC 0-5 WBC/uL 0-30 WBC/uL RBC Absent Absent Neutrophils 0-6% 0-8% Lymphocytes 40-80% 5-35% Monocytes 15-45% 50-90% Eosinophils Rare Rare Note: These Reference ranges or Cutoff Values of normal vs. abnormal are based on the peer reviewed literature and reference texts. We cannot define 95% range for normal patients, as it would require invasive sampling of normal people. [facility] Cytology Non-ALCOHOL STILL OPERATOR Report Cytology Non-ALCOHOL STILL OPERATOR Report CYTOLOGY MEDICAL REPORT Patient Name: EVELINA DO Specimen Number: [id number] Patient Collection Date: 08/20/2024 Submitting Physician: Heike Barrientos MD Signout Date: 08/21/2024 Other Physician( s): Aleisha Gordon MD ======== FINAL DIAGNOSIS CEREBROSPI NAL FLUID: Negative for leukemia. Please see previous material ([id number] , [id number], [id number], [id number], [id number]). Please see comment. Diagnosis Comment Microscopi c Descriptio n: Review of Luo's stained cytospin preparatio ns demonstrat es scattered small mature lymphocyte s. No blasts are identified . ======== Source of Specimen(s ) CEREBROSPI NAL FLUID Clinical History hx of ALL Descriptio n of Specimen RECEIVED 1 ML OF FRESH CLEAR FLUID, 2 ML OF FLUID IN RPMI AND 2 UNSTAINED AIR DRIED CYTOSPINS HEMATOLOGY PREPARED 2 CYTOSPINS All slides and preparatio ns are stained and microscopi guilherme examined in the laboratory . All outside slides are received stained and are microscopi guilherme examined in the laboratory . The performanc e characteri stics of the immunohist ochemical stains cited in this report (if any) were determined by the [facility] Department of Pathology. They have not been cleared or approved by the U.S. Food and Drug Administra tion. The FDA has determined that such clearance or approval is not necessary. This test is for clinical purposes. It should not be regarded as investigat ional or for research. This laboratory is certified under the Clinical Laboratory Improvemen t Amendments of 1988 (CLIA) as qualified to perform high complexity clinical laboratory testing. 08/20 15:28 :00 Missing Attachment [id number] can be viewed in source system [facility] GENERAL CHEMISTRY AST-SGOT 26 U/L 08/20 10:14 :00 [facility] GENERAL CHEMISTRY Albumin 3.8 g/dL 3.4 - 5.0 08/20 10:14 :00 [facility] CHEMISTRY Alkaline Phosphatase 89 U/L 40 - 129 08/20 10:14 :00 [facility] CHEMISTRY ALT-SGPT 19 U/L 10 - 50 08/20 10:14 :00 [facility] GENERAL CHEMISTRY T Bili 0.30 mg/dL 0.30 - 1.20 08/20 10:14 :00 [facility] GENERAL CHEMISTRY Anion gap 11 mmol/L 0 - 20 08/20 10:14 :00 [facility] GENERAL CHEMISTRY Creatinine, standardized 0.7 mg/dL 0.7 - 1.2 08/20 10:14 :00 Interpretive Data: Sjtnjb-pe-jhe e transgender patients on testosterone therapy should have results assessed using the male reference range. Iqrj-jg-yffil e transgender patients on hormone-modul ating therapy clinical judgment is advisedfor assessment. [facility] GENERAL CHEMISTRY Total Protein 6.0 g/dL 5.7 - 8.2 08/20 10:14 :00 [facility] GENERAL CHEMISTRY CO2 30 mmol/L 20 - 31 08/20 10:14 :00 [facility] GENERAL CHEMISTRY Estimated GFR for peds Not calculated 08/20 10:14 :00 Interpretive Data: The estimated GFR was calculated using the Teddy barker Dorado equation (2009) . Reference: Pediatric GFR calculator at [employer] Website. [facility] GENERAL CHEMISTRY Estimated GFR for Adults 132 mL/min/1.7 3m 08/20 10:14 :00 Interpretive Data: Changed to CKD-EPI 2020 on 2020. [facility] GENERAL CHEMISTRY Calcium 9.0 mg/dL 8.3 - 10.6 08/20 10:14 :00 [facility] GENERAL CHEMISTRY Glucose Lvl 87 mg/dL 70 - 139 08/20 10:14 :00 [facility] GENERAL CHEMISTRY Chloride 104 mmol/L 98 - 107 08/20 10:14 :00 [facility] GENERAL CHEMISTRY Sodium 141 mmol/L 136 - 145 08/20 10:14 :00 [facility] GENERAL CHEMISTRY BUN 8 mg/dL 6 - 20 08/20 10:14 :00 [facility] GENERAL CHEMISTRY Potassium 3.9 mmol/L 3.5 - 5.1 08/20 10:14 :00 [facility] HEMATOLOGY PROFILES MCHC 30.8 g/dL 32.0 - 36.0 08/20 10:14 :00 [facility] HEMATOLOGY PROFILES MCH 31.3 pg 26.0 - 33.0 08/20 10:14 :00 [facility] HEMATOLOGY PROFILES MCV 101.8 fL 81.2 - 95.1 08/20 10:14 :00 [facility] HEMATOLOGY PROFILES HCT 28.9 % 38.8 - 50.0 08/20 10:14 :00 Interpretive Data: Oydpma-sx-cqj e transgender patients on testosterone therapy should have results assessed using the male reference range. Fcrg-gm-ohzgr e transgender patients on hormone-modul ating therapy clinical judgment is advisedfor assessment. [facility] HEMATOLOGY PROFILES HGB 8.9 g/dL 13.5 - 17.5 08/20 10:14 :00 Interpretive Data: Zquzbx-ib-ynd e transgender patients on testosterone therapy should have results assessed using the male reference range. Lmhy-he-uyykm e transgender patients on hormone-modul ating therapy clinical judgment is advisedfor assessment. [facility] HEMATOLOGY PROFILES RBC 2.84 x10(12)/L 4.32 - 5.72 08/20 10:14 :00 [facility] HEMATOLOGY PROFILES MPV 9.9 8.0 - 12.0 08/20 10:14 :00 [facility] HEMATOLOGY PROFILES PLT 205 x10(9)/L 150 - 450 08/20 10:14 :00 [facility] HEMATOLOGY PROFILES RDW SD 83.7 fL 35.1 - 43.9 08/20 10:14 :00 [facility] HEMATOLOGY PROFILES RDW CV 23.4 % 11.8 - 15.6 08/20 10:14 :00 [facility] HEMATOLOGY PROFILES WBC 4.19 x10(9)/L 3.50 - 10.50 08/20 10:14 :00 [facility] HEMATOLOGY PROFILES Neuts Manual 62.5 % 08/20 10:14 :00 [facility] HEMATOLOGY PROFILES Lymphocytes Manual 11.6 % 08/20 10:14 :00 [facility] HEMATOLOGY PROFILES Abs Monocytes Manual 0.97 x10(9)/L 0.30 - 0.90 08/20 10:14 :00 [facility] HEMATOLOGY PROFILES Abs Eosinophils Manual 0.04 x10(9)/L 0.05 - 0.50 08/20 10:14 :00 [facility] HEMATOLOGY PROFILES Abs Basophils Manual 0.08 x10(9)/L 0.00 - 0.30 08/20 10:14 :00 [facility] HEMATOLOGY PROFILES Poly 1+ (2-10%) *NA* (08/20/24 4:14 AM) 08/20 10:14 :00 [facility] HEMATOLOGY PROFILES Platelet Estimate Adequate *NA* (08/20/24 4:14 AM) 08/20 10:14 :00 [facility] HEMATOLOGY PROFILES Aniso 2+ (20-50%) *NA* (08/20/24 4:14 AM) 08/20 10:14 :00 [facility] HEMATOLOGY PROFILES Elliptocytes (Ovalocytes) 1+ (10-25%) *NA* (08/20/24 4:14 AM) 08/20 10:14 :00 [facility] HEMATOLOGY PROFILES Macro 1+ (25-50%) *NA* (08/20/24 4:14 AM) 08/20 10:14 :00 [facility] HEMATOLOGY PROFILES Morphology Present *NA* (08/20/24 4:14 AM) 08/20 10:14 :00 [facility] HEMATOLOGY PROFILES Monocytes Manual 23.2 % 08/20 10:14 :00 [facility] HEMATOLOGY PROFILES Eosinophils Manual 0.9 % 08/20 10:14 :00 [facility] HEMATOLOGY PROFILES Basophils Manual 1.8 % 08/20 10:14 :00 [facility] HEMATOLOGY PROFILES Absolute Neutrophils Manual 2.62 x10(9)/L 1.70 - 7.00 08/20 10:14 :00 [facility] HEMATOLOGY PROFILES Abs Lymphocytes Manual 0.49 x10(9)/L 0.90 - 2.90 08/20 10:14 :00 [facility] HEMATOLOGY PROFILES Schistocytes 1+ (Rare-3%) *NA* (08/20/24 4:14 AM) 08/20 10:14 :00 [facility] HEMATOLOGY PROFILES % Neutrophils 60.6 % 08/19 19:33 :00 [facility] HEMATOLOGY PROFILES Absolute Nucleated RBCs 0.0 x10(9)/L 0.0 - 0.0 08/19 19:33 :00 Interpretive Data: Normal values not established in patients less than 18 years old. [facility] HEMATOLOGY PROFILES % Nucleated RBCs 0.0 % 08/19 19:33 :00 [facility] HEMATOLOGY PROFILES Absolute Granulocytes 3.47 x10(9)/L 1.70 - 7.00 08/19 19:33 :00 [facility] HEMATOLOGY PROFILES % Immature Granulocytes 1.00 % 0.02 - 0.42 08/19 19:33 :00 [facility] HEMATOLOGY PROFILES % Basophils 0.9 % 08/19 19:33 :00 [facility] HEMATOLOGY PROFILES % Eosinophils 0.2 % 08/19 19:33 :00 [facility] HEMATOLOGY PROFILES % Monocytes 25.3 % 08/19 19:33 :00 [facility] HEMATOLOGY PROFILES % Lymphocytes 12.0 % 08/19 19:33 :00 [facility] HEMATOLOGY PROFILES Abs Immature Granulocytes 0.06 x10(9)/L 0.00 - 0.03 08/19 19:33 :00 [facility] HEMATOLOGY PROFILES Abs Basophils 0.05 x10(9)/L 0.00 - 0.30 08/19 19:33 :00 [facility] HEMATOLOGY PROFILES Abs Eosinophils 0.01 x10(9)/L 0.05 - 0.50 08/19 19:33 :00 [facility] HEMATOLOGY PROFILES Abs Monocytes 1.45 x10(9)/L 0.30 - 0.90 08/19 19:33 :00 [facility] HEMATOLOGY PROFILES Abs Lymphocytes 0.69 x10(9)/L 0.90 - 2.90 08/19 19:33 :00 [facility] BODY FLUIDS/CSF CSF, WBC 3 /mcL 07/26 18:30 :00 Interpretive Data: Variation from manual counting may exceed 50% and approach 15-20% using automated method. Pleocytosis in Adults (increased WBC count) may be graded: Mild: 5-50 WBC/uL Moderate: 51-200 WBC/uL Severe: > 200 WBC/uL CSF may have > 60% neutrophils in high-risk neonates without meningitis [facility] BODY FLUIDS/CSF CSF, RBC 0 /mcL 07/26 18:30 :00 Interpretive Data: Variation from manual counting may exceed 50% and approach 15-20% using automated method. [facility] BODY FLUIDS/CSF CSF Cutoff Values See Comment 4 (07/26/24 12:30 PM) 07/26 18:30 :00 Interpretive Data: Cells: Cells Adults Neonates WBC 0-5 WBC/uL 0-30 WBC/uL RBC Absent Absent Neutrophils 0-6% 0-8% Lymphocytes 40-80% 5-35% Monocytes 15-45% 50-90% Eosinophils Rare Rare Note: These Reference ranges or Cutoff Values of normal vs. abnormal are based on the peer reviewed literature and reference texts. We cannot define 95% range for normal patients, as it would require invasive sampling of normal people. [facility] BODY FLUIDS/CSF CSF, Spec Appear Clear (07/26/24 12:30 PM) 07/26 18:30 :00 [facility] BODY FLUIDS/CSF CSF, Color Colorless (07/26/24 12:30 PM) 07/26 18:30 :00 [facility] BODY FLUIDS/CSF CSF Xanthochromi c Absent (07/26/24 12:30 PM) 07/26 18:30 :00 [facility] BODY FLUIDS/CSF CSF Cell Count-Neuts % 0 % 07/26 18:30 :00 [facility] BODY FLUIDS/CSF Lymph % CSF 100.0 % 07/26 18:30 :00 [facility] GENERAL CHEMISTRY Estimated GFR for Adults 138 mL/min/1.7 3m 07/26 16:24 :29 Interpretive Data: Changed to CKD-EPI 2020 on 2020. [facility] GENERAL CHEMISTRY AST-SGOT 30 U/L 07/26 16:24 :29 [facility] GENERAL CHEMISTRY Estimated GFR for peds Not calculated 07/26 16:24 :29 Interpretive Data: The estimated GFR was calculated using the Teddy barker Dorado equation (2009) . Reference: Pediatric GFR calculator at [employer] Website. [facility] GENERAL CHEMISTRY ALT-SGPT 98 U/L 10 - 50 07/26 16:24 :29 [facility] GENERAL CHEMISTRY Alkaline Phosphatase 104 U/L 40 - 129 07/26 16:24 :29 [facility] GENERAL CHEMISTRY Albumin 3.9 g/dL 3.4 - 5.0 07/26 16:24 :29 [facility] GENERAL CHEMISTRY Calcium 9.6 mg/dL 8.3 - 10.6 07/26 16:24 :29 [facility] GENERAL CHEMISTRY BUN 13 mg/dL 6 - 20 07/26 16:24 :29 [facility] GENERAL CHEMISTRY Potassium 3.6 mmol/L 3.5 - 5.1 07/26 16:24 :29 [facility] GENERAL CHEMISTRY Sodium 143 mmol/L 136 - 145 07/26 16:24 :29 [facility] GENERAL CHEMISTRY Chloride 105 mmol/L 98 - 107 07/26 16:24 :29 [facility] GENERAL CHEMISTRY Glucose Lvl 91 mg/dL 70 - 139 07/26 16:24 :29 [facility] GENERAL CHEMISTRY CO2 26 mmol/L 20 - 31 07/26 16:24 :29 [facility] GENERAL CHEMISTRY Creatinine, standardized 0.6 mg/dL 0.7 - 1.2 07/26 16:24 :29 Interpretive Data: Fobpgz-vl-doq e transgender patients on testosterone therapy should have results assessed using the male reference range. Ccep-xb-fwydg e transgender patients on hormone-modul ating therapy clinical judgment is advisedfor assessment. [facility] GENERAL CHEMISTRY Total Protein 6.5 g/dL 5.7 - 8.2 07/26 16:24 :29 [facility] GENERAL CHEMISTRY T Bili 0.49 mg/dL 0.30 - 1.20 07/26 16:24 :29 [facility] GENERAL CHEMISTRY Anion gap 16 mmol/L 0 - 20 07/26 16:24 :29 [facility] HEMATOLOGY PROFILES WBC 2.41 x10(9)/L 3.50 - 10.50 07/26 16:24 :29 [facility] HEMATOLOGY PROFILES RBC 3.42 x10(12)/L 4.32 - 5.72 07/26 16:24 :29 [facility] HEMATOLOGY PROFILES HGB 10.2 g/dL 13.5 - 17.5 07/26 16:24 :29 Interpretive Data: Byskwc-jk-jwj e transgender patients on testosterone therapy should have results assessed using the male reference range. Acml-tc-hqksj e transgender patients on hormone-modul ating therapy clinical judgment is advisedfor assessment. [facility] HEMATOLOGY PROFILES HCT 31.1 % 38.8 - 50.0 07/26 16:24 :29 Interpretive Data: Emsmpz-sh-yhn e transgender patients on testosterone therapy should have results assessed using the male reference range. Bxrv-of-eqltw e transgender patients on hormone-modul ating therapy clinical judgment is advisedfor assessment. [facility] HEMATOLOGY PROFILES MCV 90.9 fL 81.2 - 95.1 07/26 16:24 :29 [facility] HEMATOLOGY PROFILES MCH 29.8 pg 26.0 - 33.0 07/26 16:24 :29 [facility] HEMATOLOGY PROFILES MCHC 32.8 g/dL 32.0 - 36.0 07/26 16:24 :29 [facility] HEMATOLOGY PROFILES RDW CV 15.8 % 11.8 - 15.6 07/26 16:24 :29 [facility] HEMATOLOGY PROFILES RDW SD 52.8 fL 35.1 - 43.9 07/26 16:24 :29 [facility] HEMATOLOGY PROFILES PLT 149 x10(9)/L 150 - 450 07/26 16:24 :29 [facility] HEMATOLOGY PROFILES MPV 9.2 8.0 - 12.0 07/26 16:24 :29 [facility] HEMATOLOGY PROFILES Abs Lymphocytes Manual 0.29 x10(9)/L 0.90 - 2.90 07/26 16:24 :29 [facility] HEMATOLOGY PROFILES Eosinophils Manual 3.0 % 07/26 16:24 :29 [facility] HEMATOLOGY PROFILES Lymphocytes Manual 12.0 % 07/26 16:24 :29 [facility] HEMATOLOGY PROFILES Absolute Neutrophils Manual 1.98 x10(9)/L 1.70 - 7.00 07/26 16:24 :29 [facility] HEMATOLOGY PROFILES Basophils Manual 3.0 % 07/26 16:24 :29 [facility] HEMATOLOGY PROFILES Elliptocytes (Ovalocytes) 1+ (10-25%) *NA* (07/26/24 10:24 AM) 07/26 16:24 :29 [facility] HEMATOLOGY PROFILES Platelet Estimate Decreased *NA* (07/26/24 10:24 AM) 07/26 16:24 :29 [facility] HEMATOLOGY PROFILES Abs Basophils Manual 0.07 x10(9)/L 0.00 - 0.30 07/26 16:24 :29 [facility] HEMATOLOGY PROFILES Abs Eosinophils Manual 0.07 x10(9)/L 0.05 - 0.50 07/26 16:24 :29 [facility] HEMATOLOGY PROFILES Morphology Present *NA* (07/26/24 10:24 AM) 07/26 16:24 :29 [facility] HEMATOLOGY PROFILES Teardrop 1+ (3-6%) *NA* (07/26/24 10:24 AM) 07/26 16:24 :29 [facility] HEMATOLOGY PROFILES Schistocytes 1+ (Rare-3%) *NA* (07/26/24 10:24 AM) 07/26 16:24 :29 [facility] HEMATOLOGY PROFILES Neuts Manual 82.0 % 07/26 16:24 :29 [facility] Cytology Non-ALCOHOL STILL OPERATOR Report Cytology Non-ALCOHOL STILL OPERATOR Report CYTOLOGY MEDICAL REPORT Patient Name: EVELINA DO Specimen Number: [id number] Patient Collection Date: 07/26/2024 Submitting Physician: Miguelina Horne M.D. Signout Date: 07/26/2024 Other Physician( s): MD Heike Maldonado MD ======== FINAL DIAGNOSIS CEREBROSPI NAL FLUID: Negative for Acute Leukemia Please see previous material ([id number] , [id number], [id number], [id number]) Diagnosis Comment Microscopi c descriptio n: Review of Luo stained CSF cytospin reveals background monocytes and small lymphocyte s. No blast cells identified . ======== Source of Specimen(s ) CEREBROSPI NAL FLUID Clinical History ALL Descriptio n of Specimen RECEIVED 1.7 ML OF FRESH CLEAR FLUID HEMATOLOGY PREPARED 2 CYTOSPINS All slides and preparatio ns are stained and microscopi guilherme examined in the laboratory . All outside slides are received stained and are microscopi giulherme examined in the laboratory . The performanc e characteri stics of the immunohist ochemical stains cited in this report (if any) were determined by the [facility] Department of Pathology. They have not been cleared or approved by the U.S. Food and Drug Administra tion. The FDA has determined that such clearance or approval is not necessary. This test is for clinical purposes. It should not be regarded as investigat ional or for research. This laboratory is certified under the Clinical Laboratory Improvemen t Amendments of 1988 (CLIA) as qualified to perform high complexity clinical laboratory testing. 07/26 12:49 :00 Missing Attachment [id number] can be viewed in source system [facility] GENERAL CHEMISTRY ALT-SGPT 130 U/L 10 - 50 07/24 11:28 :00 [facility] GENERAL CHEMISTRY Albumin 3.5 g/dL 3.4 - 5.0 07/24 11:28 :00 [facility] GENERAL CHEMISTRY Alkaline Phosphatase 88 U/L 40 - 129 07/24 11:28 :00 [facility] GENERAL CHEMISTRY AST-SGOT 42 U/L 07/24 11:28 :00 [facility] GENERAL CHEMISTRY Anion gap 12 mmol/L 0 - 20 07/24 11:28 :00 [facility] GENERAL CHEMISTRY Sodium 141 mmol/L 136 - 145 07/24 11:28 :00 [facility] CHEMISTRY Glucose Lvl 103 mg/dL 70 - 139 07/24 11:28 :00 [facility] CHEMISTRY Chloride 107 mmol/L 98 - 107 07/24 11:28 :00 [facility] CHEMISTRY BUN 12 mg/dL 6 - 20 07/24 11:28 :00 [facility] GENERAL CHEMISTRY Calcium 9.9 mg/dL 8.3 - 10.6 07/24 11:28 :00 [facility] CHEMISTRY Total Protein 5.9 g/dL 5.7 - 8.2 07/24 11:28 :00 [facility] GENERAL CHEMISTRY CO2 26 mmol/L 20 - 31 07/24 11:28 :00 [facility] CHEMISTRY T Bili 0.81 mg/dL 0.30 - 1.20 07/24 11:28 :00 [facility] GENERAL CHEMISTRY Potassium 4.0 mmol/L 3.5 - 5.1 07/24 11:28 :00 [facility] GENERAL CHEMISTRY Estimated GFR for peds Not calculated 07/24 11:28 :00 Interpretive Data: The estimated GFR was calculated using the Teddy barker Dorado equation (2009) . Reference: Pediatric GFR calculator at [employer] Website. [facility] CHEMISTRY Creatinine, standardized 0.5 mg/dL 0.7 - 1.2 07/24 11:28 :00 Interpretive Data: Vcjvej-fi-vik e transgender patients on testosterone therapy should have results assessed using the male reference range. Mumg-lp-pohwv e transgender patients on hormone-modul ating therapy clinical judgment is advisedfor assessment. [facility] HEMATOLOGY PROFILES RBC 3.21 x10(12)/L 4.32 - 5.72 07/24 11:28 :00 [facility] HEMATOLOGY PROFILES WBC 5.80 x10(9)/L 3.50 - 10.50 07/24 11:28 :00 [facility] HEMATOLOGY PROFILES HCT 30.3 % 38.8 - 50.0 07/24 11:28 :00 Interpretive Data: Kqrytk-td-sjy e transgender patients on testosterone therapy should have results assessed using the male reference range. Kyqj-db-tgiew e transgender patients on hormone-modul ating therapy clinical judgment is advisedfor assessment. [facility] HEMATOLOGY PROFILES HGB 9.8 g/dL 13.5 - 17.5 07/24 11:28 :00 Interpretive Data: Mzuvdw-dv-vow e transgender patients on testosterone therapy should have results assessed using the male reference range. Zifn-qz-asvkg e transgender patients on hormone-modul ating therapy clinical judgment is advisedfor assessment. [facility] HEMATOLOGY PROFILES MCHC 32.3 g/dL 32.0 - 36.0 07/24 11:28 :00 [facility] HEMATOLOGY PROFILES MCH 30.5 pg 26.0 - 33.0 07/24 11:28 :00 [facility] HEMATOLOGY PROFILES MCV 94.4 fL 81.2 - 95.1 07/24 11:28 :00 [facility] HEMATOLOGY PROFILES RDW CV 15.4 % 11.8 - 15.6 07/24 11:28 :00 [facility] HEMATOLOGY PROFILES MPV 10.1 8.0 - 12.0 07/24 11:28 :00 [facility] HEMATOLOGY PROFILES PLT 195 x10(9)/L 150 - 450 07/24 11:28 :00 [facility] HEMATOLOGY PROFILES RDW SD 53.6 fL 35.1 - 43.9 07/24 11:28 :00 [facility] URINALYSIS UA PROTEIN Negative mg/dL 07/23 20:50 :00 [facility] URINALYSIS UA NITRITE Negative (07/23/24 2:50 PM) 07/23 20:50 :00 [facility] URINALYSIS BILIRUBIN Negative (07/23/24 2:50 PM) 07/23 20:50 :00 [facility] URINALYSIS UA UROBILINOGEN Negative Yumi unit/dL 0.2 - 1.0 07/23 20:50 :00 [facility] URINALYSIS UA BLOOD Negative 14 (07/23/24 2:50 PM) 07/23 20:50 :00 Result Comment: A hemoglobin concentration of 0.015-0.062 mg/dL is approximately equivalent to 5 -20 intact red blood cells per microliter. [facility] URINALYSIS UA LEUKOCYTES Negative (07/23/24 2:50 PM) 07/23 20:50 :00 [facility] URINALYSIS UA KETONES Negative mg/dL 07/23 20:50 :00 [facility] URINALYSIS COLOR Yellow (07/23/24 2:50 PM) 07/23 20:50 :00 [facility] URINALYSIS SPECIFIC GRAVITY 1.015 1.006 - 1.030 07/23 20:50 :00 [facility] URINALYSIS UA PH 8 *NA* (07/23/24 2:50 PM) 4.5 - 8.0 07/23 20:50 :00 [facility] URINALYSIS UA GLUCOSE Negative mg/dL 07/23 20:50 :00 [facility] URINALYSIS CLARITY Slightly Cloudy (07/23/24 2:50 PM) 07/23 20:50 :00 [facility] GENERAL CHEMISTRY Estimated GFR for peds Not calculated 07/23 08:28 :00 Interpretive Data: The estimated GFR was calculated using the B lucero Dorado equation (2009) . Reference: Pediatric GFR calculator at [employer] Website. [facility] GENERAL CHEMISTRY Total Protein 5.9 g/dL 5.7 - 8.2 07/23 08:28 :00 [facility] GENERAL CHEMISTRY T Bili 0.50 mg/dL 0.30 - 1.20 07/23 08:28 :00 [facility] GENERAL CHEMISTRY Anion gap 10 mmol/L 0 - 20 07/23 08:28 :00 [facility] GENERAL CHEMISTRY Creatinine, standardized 0.5 mg/dL 0.7 - 1.2 07/23 08:28 :00 Interpretive Data: Zajujh-kv-gmp e transgender patients on testosterone therapy should have results assessed using the male reference range. Pnjn-aa-rjvkn e transgender patients on hormone-modul ating therapy clinical judgment is advisedfor assessment. [facility] GENERAL CHEMISTRY Estimated GFR for Adults 147 mL/min/1.7 3m 07/23 08:28 :00 Interpretive Data: Changed to CKD-EPI 2020 on 2020. [facility] GENERAL CHEMISTRY BUN 5 mg/dL 6 - 20 07/23 08:28 :00 [facility] GENERAL CHEMISTRY ALT-SGPT 175 U/L 10 - 50 07/23 08:28 :00 [facility] GENERAL CHEMISTRY Alkaline Phosphatase 101 U/L 40 - 129 07/23 08:28 :00 [facility] GENERAL CHEMISTRY Calcium 9.5 mg/dL 8.3 - 10.6 07/23 08:28 :00 [facility] GENERAL CHEMISTRY Potassium 3.8 mmol/L 3.5 - 5.1 07/23 08:28 :00 [facility] GENERAL CHEMISTRY Sodium 142 mmol/L 136 - 145 07/23 08:28 :00 [facility] GENERAL CHEMISTRY Chloride 103 mmol/L 98 - 107 07/23 08:28 :00 [facility] GENERAL CHEMISTRY Glucose Lvl 125 mg/dL 70 - 139 07/23 08:28 :00 [facility] GENERAL CHEMISTRY CO2 33 mmol/L 20 - 31 07/23 08:28 :00 [facility] GENERAL CHEMISTRY Albumin 3.6 g/dL 3.4 - 5.0 07/23 08:28 :00 [facility] GENERAL CHEMISTRY AST-SGOT 71 U/L 07/23 08:28 :00 [facility] HEMATOLOGY PROFILES PLT 230 x10(9)/L 150 - 450 07/23 08:28 :00 [facility] HEMATOLOGY PROFILES MPV 9.8 8.0 - 12.0 07/23 08:28 :00 [facility] HEMATOLOGY PROFILES RDW CV 15.4 % 11.8 - 15.6 07/23 08:28 :00 [facility] HEMATOLOGY PROFILES RDW SD 51.8 fL 35.1 - 43.9 07/23 08:28 :00 [facility] HEMATOLOGY PROFILES MCH 29.9 pg 26.0 - 33.0 07/23 08:28 :00 [facility] HEMATOLOGY PROFILES MCHC 32.5 g/dL 32.0 - 36.0 07/23 08:28 :00 [facility] HEMATOLOGY PROFILES HCT 31.4 % 38.8 - 50.0 07/23 08:28 :00 Interpretive Data: Wgprqf-ne-ijc e transgender patients on testosterone therapy should have results assessed using the male reference range. Cehp-bl-lfiec e transgender patients on hormone-modul ating therapy clinical judgment is advisedfor assessment. [facility] HEMATOLOGY PROFILES MCV 92.1 fL 81.2 - 95.1 07/23 08:28 :00 [facility] [place] HEMATOLOGY PROFILES HGB 10.2 g/dL 13.5 - 17.5 07/23 08:28 :00 Interpretive Data: Xjsgvw-qz-oqr e transgender patients on testosterone therapy should have results assessed using the male reference range. Dxyy-iv-iljfe e transgender patients on hormone-modul ating therapy clinical judgment is advisedfor assessment. [facility] HEMATOLOGY PROFILES WBC 5.74 x10(9)/L 3.50 - 10.50 07/23 08:28 :00 [facility] HEMATOLOGY PROFILES RBC 3.41 x10(12)/L 4.32 - 5.72 07/23 08:28 :00 [facility] HEMATOLOGY PROFILES Abs Eosinophils 0.00 x10(9)/L 0.05 - 0.50 07/23 08:28 : [facility] HEMATOLOGY PROFILES Abs Lymphocytes 0.29 x10(9)/L 0.90 - 2.90 07/23 08:28 :00 [facility] HEMATOLOGY PROFILES Abs Monocytes 0.18 x10(9)/L 0.30 - 0.90 07/23 08:28 :00 [facility] HEMATOLOGY PROFILES % Eosinophils 0.0 % 07/23 08:28 :00 [facility] HEMATOLOGY PROFILES % Basophils 0.0 % 07/23 08:28 :00 [facility] HEMATOLOGY PROFILES % Lymphocytes 5.1 % 07/23 08:28 :00 [facility] [place] HEMATOLOGY PROFILES % Monocytes 3.1 % 07/23 08:28 :00 [facility] [place] HEMATOLOGY PROFILES % Immature Granulocytes 1.20 % 0.02 - 0.42 07/23 08:28 :00 [facility] HEMATOLOGY PROFILES Absolute Granulocytes 5.20 x10(9)/L 1.70 - 7.00 07/23 08:28 :00 [facility] HEMATOLOGY PROFILES % Nucleated RBCs 0.0 % 07/23 08:28 :00 [facility] HEMATOLOGY PROFILES Absolute Nucleated RBCs 0.0 x10(9)/L 0.0 - 0.0 07/23 08:28 :00 Interpretive Data: Normal values not established in patients less than 18 years old. [facility] HEMATOLOGY PROFILES % Neutrophils 90.6 % 07/23 08:28 :00 [facility] HEMATOLOGY PROFILES Abs Immature Granulocytes 0.07 x10(9)/L 0.00 - 0.03 07/23 08:28 :00 [facility] HEMATOLOGY PROFILES Abs Basophils 0.00 x10(9)/L 0.00 - 0.30 07/23 08:28 :00 [facility] URINALYSIS UA UROBILINOGEN Negative Yumi unit/dL 0.2 - 1.0 07/23 08:28 :00 [facility] URINALYSIS UA BLOOD Negative 15 (07/23/24 2:28 AM) 07/23 08:28 :00 Result Comment: A hemoglobin concentration of 0.015-0.062 mg/dL is approximately equivalent to 5 -20 intact red blood cells per microliter. [facility] URINALYSIS UA LEUKOCYTES Negative (07/23/24 2:28 AM) 07/23 08:28 :00 [facility] URINALYSIS UA NITRITE Negative (07/23/24 2:28 AM) 07/23 08:28 :00 [facility] URINALYSIS UA PROTEIN Negative mg/dL 07/23 08:28 :00 [facility] URINALYSIS SPECIFIC GRAVITY 1.005 1.006 - 1.030 07/23 08:28 :00 [facility] URINALYSIS UA PH 9 *NA* (07/23/24 2:28 AM) 4.5 - 8.0 07/23 08:28 :00 [facility] URINALYSIS UA GLUCOSE Negative mg/dL 07/23 08:28 :00 [facility] URINALYSIS UA KETONES Negative mg/dL 07/23 08:28 :00 [facility] URINALYSIS BILIRUBIN Negative (07/23/24 2:28 AM) 07/23 08:28 :00 [facility] URINALYSIS CLARITY Clear (07/23/24 2:28 AM) 07/23 08:28 :00 [facility] URINALYSIS COLOR Straw (07/23/24 2:28 AM) 07/23 08:28 :00 [facility] THERAPEUTI C DRUGS Methotrexate Lvl 0.07 umol/L 07/23 02:38 :00 [facility] URINALYSIS UA LEUKOCYTES Negative (07/22/24 8:38 PM) 07/23 02:38 :00 [facility] URINALYSIS UA PROTEIN Negative mg/dL 07/23 02:38 :00 [facility] URINALYSIS UA NITRITE Negative (07/22/24 8:38 PM) 07/23 02:38 :00 [facility] URINALYSIS UA KETONES Negative mg/dL 07/23 02:38 :00 [facility] URINALYSIS UA GLUCOSE Negative mg/dL 07/23 02:38 :00 [facility] URINALYSIS UA UROBILINOGEN Negative Yumi unit/dL 0.2 - 1.0 07/23 02:38 :00 [facility] URINALYSIS BILIRUBIN Negative (07/22/24 8:38 PM) 07/23 02:38 :00 [facility] URINALYSIS UA BLOOD Negative 16 (07/22/24 8:38 PM) 07/23 02:38 :00 Result Comment: A hemoglobin concentration of 0.015-0.062 mg/dL is approximately equivalent to 5 -20 intact red blood cells per microliter. [facility] URINALYSIS CLARITY Clear (07/22/24 8:38 PM) 07/23 02:38 :00 [facility] URINALYSIS SPECIFIC GRAVITY 1.005 1.006 - 1.030 07/23 02:38 :00 [facility] URINALYSIS COLOR Colorless (07/22/24 8:38 PM) 07/23 02:38 :00 [facility] URINALYSIS UA PH 9 *NA* (07/22/24 8:38 PM) 4.5 - 8.0 07/23 02:38 :00 [facility] URINALYSIS UA PH 9 *NA* (07/22/24 2:12 PM) 4.5 - 8.0 07/22 20:12 :00 [facility] URINALYSIS SPECIFIC GRAVITY 1.006 1.006 - 1.030 07/22 20:12 :00 [facility] URINALYSIS COLOR Straw (07/22/24 2:12 PM) 07/22 20:12 :00 [facility] URINALYSIS CLARITY Clear (07/22/24 2:12 PM) 07/22 20:12 :00 [facility] URINALYSIS UA PROTEIN Negative mg/dL 07/22 20:12 :00 [facility] URINALYSIS UA NITRITE Negative (07/22/24 2:12 PM) 07/22 20:12 :00 [facility] URINALYSIS UA LEUKOCYTES Negative (07/22/24 2:12 PM) 07/22 20:12 :00 [facility] URINALYSIS UA BLOOD Negative 17 (07/22/24 2:12 PM) 07/22 20:12 :00 Result Comment: A hemoglobin concentration of 0.015-0.062 mg/dL is approximately equivalent to 5 -20 intact red blood cells per microliter. [facility] URINALYSIS UA UROBILINOGEN Negative Yumi unit/dL 0.2 - 1.0 07/22 20:12 :00 [facility] URINALYSIS BILIRUBIN Negative (07/22/24 2:12 PM) 07/22 20:12 :00 [facility] URINALYSIS UA KETONES Negative mg/dL 07/22 20:12 :00 [facility] URINALYSIS UA GLUCOSE Negative mg/dL 07/22 20:12 :00 [facility] GENERAL CHEMISTRY Estimated GFR for peds Not calculated 07/22 08:36 :00 Interpretive Data: The estimated GFR was calculated using the B lucero Dorado equation (2009) . Reference: Pediatric GFR calculator at [employer] Website. [facility] CHEMISTRY Estimated GFR for Adults 148 mL/min/1.7 3m 07/22 08:36 :00 Interpretive Data: Changed to CKD-EPI 2020 on 2020. [facility] CHEMISTRY Creatinine, standardized 0.5 mg/dL 0.7 - 1.2 07/22 08:36 :00 Interpretive Data: Xcexeq-pg-xtt e transgender patients on testosterone therapy should have results assessed using the male reference range. Okkd-kb-vzkku e transgender patients on hormone-modul ating therapy clinical judgment is advisedfor assessment. [facility] GENERAL CHEMISTRY Total Protein 5.4 g/dL 5.7 - 8.2 07/22 08:36 :00 [facility] GENERAL CHEMISTRY T Bili 0.39 mg/dL 0.30 - 1.20 07/22 08:36 :00 [facility] GENERAL CHEMISTRY Anion gap 6 mmol/L 0 - 20 07/22 08:36 :00 [facility] GENERAL CHEMISTRY CO2 35 mmol/L 20 - 31 07/22 08:36 :00 [facility] GENERAL CHEMISTRY Potassium 3.4 mmol/L 3.5 - 5.1 07/22 08:36 :00 [facility] GENERAL CHEMISTRY Sodium 143 mmol/L 136 - 145 07/22 08:36 :00 [facility] GENERAL CHEMISTRY Chloride 105 mmol/L 98 - 107 07/22 08:36 :00 [facility] GENERAL CHEMISTRY Glucose Lvl 106 mg/dL 70 - 139 07/22 08:36 :00 [facility] GENERAL CHEMISTRY Calcium 8.7 mg/dL 8.3 - 10.6 07/22 08:36 :00 [facility] GENERAL CHEMISTRY BUN <5 mg/dL 6 - 20 07/22 08:36 :00 [facility] GENERAL CHEMISTRY ALT-SGPT 185 U/L 10 - 50 07/22 08:36 :00 [facility] CHEMISTRY Alkaline Phosphatase 97 U/L 40 - 129 07/22 08:36 :00 [facility] GENERAL CHEMISTRY Albumin 3.3 g/dL 3.4 - 5.0 07/22 08:36 :00 [facility] GENERAL CHEMISTRY AST-SGOT 89 U/L 07/22 08:36 :00 [facility] GENERAL CHEMISTRY Magnesium 1.50 mg/dL 1.60 - 2.60 07/22 08:36 :00 [facility] GENERAL CHEMISTRY Phosphorus 4.0 mg/dL 2.4 - 5.1 07/22 08:36 :00 [facility] HEMATOLOGY PROFILES RDW CV 16.2 % 11.8 - 15.6 07/22 08:36 :00 [facility] HEMATOLOGY PROFILES MCHC 32.0 g/dL 32.0 - 36.0 07/22 08:36 :00 [facility] HEMATOLOGY PROFILES MPV 10.1 8.0 - 12.0 07/22 08:36 :00 [facility] HEMATOLOGY PROFILES PLT 205 x10(9)/L 150 - 450 07/22 08:36 :00 [facility] HEMATOLOGY PROFILES RDW SD 55.7 fL 35.1 - 43.9 07/22 08:36 :00 [facility] HEMATOLOGY PROFILES HGB 9.8 g/dL 13.5 - 17.5 07/22 08:36 :00 Interpretive Data: Aqmuia-ia-oyu e transgender patients on testosterone therapy should have results assessed using the male reference range. Blla-iz-ozned e transgender patients on hormone-modul ating therapy clinical judgment is advisedfor assessment. [facility] HEMATOLOGY PROFILES RBC 3.26 x10(12)/L 4.32 - 5.72 07/22 08:36 :00 [facility] HEMATOLOGY PROFILES WBC 3.34 x10(9)/L 3.50 - 10.50 07/22 08:36 :00 [facility] HEMATOLOGY PROFILES MCH 30.1 pg 26.0 - 33.0 07/22 08:36 :00 [facility] HEMATOLOGY PROFILES MCV 93.9 fL 81.2 - 95.1 07/22 08:36 :00 [facility] HEMATOLOGY PROFILES HCT 30.6 % 38.8 - 50.0 07/22 08:36 :00 Interpretive Data: Qdtjey-hp-iuc e transgender patients on testosterone therapy should have results assessed using the male reference range. Upnd-gj-unqix e transgender patients on hormone-modul ating therapy clinical judgment is advisedfor assessment. [facility] HEMATOLOGY PROFILES Abs Basophils 0.02 x10(9)/L 0.00 - 0.30 07/22 08:36 :00 [facility] HEMATOLOGY PROFILES Abs Eosinophils 0.00 x10(9)/L 0.05 - 0.50 07/22 08:36 :00 [facility] HEMATOLOGY PROFILES Abs Monocytes 0.60 x10(9)/L 0.30 - 0.90 07/22 08:36 :00 [facility] HEMATOLOGY PROFILES Abs Immature Granulocytes 0.02 x10(9)/L 0.00 - 0.03 07/22 08:36 :00 [facility] HEMATOLOGY PROFILES % Immature Granulocytes 0.60 % 0.02 - 0.42 07/22 08:36 :00 [facility] HEMATOLOGY PROFILES % Basophils 0.6 % 07/22 08:36 :00 [facility] HEMATOLOGY PROFILES % Eosinophils 0.0 % 07/22 08:36 :00 [facility] HEMATOLOGY PROFILES % Monocytes 18.0 % 07/22 08:36 :00 [facility] HEMATOLOGY PROFILES Abs Lymphocytes 0.60 x10(9)/L 0.90 - 2.90 07/22 08:36 :00 [facility] HEMATOLOGY PROFILES Absolute Granulocytes 2.10 x10(9)/L 1.70 - 7.00 07/22 08:36 :00 [facility] HEMATOLOGY PROFILES % Neutrophils 62.8 % 07/22 08:36 :00 [facility] HEMATOLOGY PROFILES Absolute Nucleated RBCs 0.0 x10(9)/L 0.0 - 0.0 07/22 08:36 :00 Interpretive Data: Normal values not established in patients less than 18 years old. [facility] HEMATOLOGY PROFILES % Nucleated RBCs 0.0 % 07/22 08:36 :00 [facility] HEMATOLOGY PROFILES % Lymphocytes 18.0 % 07/22 08:36 :00 [facility] THERAPEUTI C DRUGS Methotrexate Lvl 0.18 umol/L 07/22 03:10 :00 [facility] URINALYSIS UA Epithelial Cells Rare /lpf 07/22 03:10 :00 [facility] URINALYSIS UA Amorphous Crystals Present *NA* (07/21/24 9:10 PM) 07/22 03:10 :00 [facility] URINALYSIS RBC None Seen /hpf 0 - 2 07/22 03:10 :00 [facility] URINALYSIS WBC 0-3 /hpf 0 - 3 07/22 03:10 :00 [facility] GENERAL CHEMISTRY Estimated GFR for peds Not calculated 07/21 15:03 :00 Interpretive Data: The estimated GFR was calculated using the B [employer] Dorado equation (2009) . Reference: Pediatric GFR calculator at [employer] Website. [facility] GENERAL CHEMISTRY Estimated GFR for Adults 151 mL/min/1.7 3m 07/21 15:03 :00 Interpretive Data: Changed to CKD-EPI 2020 on 2020. [facility] GENERAL CHEMISTRY ALT-SGPT 207 U/L 10 - 50 07/21 15:03 :00 [facility] GENERAL CHEMISTRY BUN <5 mg/dL 6 - 20 07/21 15:03 :00 [facility] GENERAL CHEMISTRY Albumin 3.4 g/dL 3.4 - 5.0 07/21 15:03 :00 [facility] GENERAL CHEMISTRY Alkaline Phosphatase 105 U/L 40 - 129 07/21 15:03 :00 [facility] GENERAL CHEMISTRY Calcium 9.2 mg/dL 8.3 - 10.6 07/21 15:03 :00 [facility] GENERAL CHEMISTRY AST-SGOT 141 U/L 07/21 15:03 :00 [facility] GENERAL CHEMISTRY Creatinine, standardized 0.4 mg/dL 0.7 - 1.2 07/21 15:03 :00 Interpretive Data: Avievl-ck-qmt e transgender patients on testosterone therapy should have results assessed using the male reference range. Ipjp-dc-soren e transgender patients on hormone-modul ating therapy clinical judgment is advisedfor assessment. [facility] GENERAL CHEMISTRY T Bili 0.37 mg/dL 0.30 - 1.20 07/21 15:03 :00 [facility] CHEMISTRY Total Protein 5.6 g/dL 5.7 - 8.2 07/21 15:03 :00 [facility] GENERAL CHEMISTRY Sodium 145 mmol/L 136 - 145 07/21 15:03 :00 [facility] CHEMISTRY Potassium 2.9 mmol/L 3.5 - 5.1 07/21 15:03 :00 [facility] GENERAL CHEMISTRY Glucose Lvl 124 mg/dL 70 - 139 07/21 15:03 :00 [facility] GENERAL CHEMISTRY Chloride 105 mmol/L 98 - 107 07/21 15:03 :00 [facility] GENERAL CHEMISTRY CO2 34 mmol/L 20 - 31 07/21 15:03 :00 [facility] CHEMISTRY Anion gap 9 mmol/L 0 - 20 07/21 15:03 :00 [facility] HEMATOLOGY PROFILES HCT 29.1 % 38.8 - 50.0 07/21 15:03 :00 Interpretive Data: Hkwplm-sv-bvn e transgender patients on testosterone therapy should have results assessed using the male reference range. Izhj-cx-vfaqh e transgender patients on hormone-modul ating therapy clinical judgment is advisedfor assessment. [facility] [place] HEMATOLOGY PROFILES HGB 9.4 g/dL 13.5 - 17.5 07/21 15:03 :00 Interpretive Data: Ecyfbx-ni-aqp e transgender patients on testosterone therapy should have results assessed using the male reference range. Mrtd-xm-ivckv e transgender patients on hormone-modul ating therapy clinical judgment is advisedfor assessment. [facility] [place] HEMATOLOGY PROFILES RBC 3.05 x10(12)/L 4.32 - 5.72 07/21 15:03 :00 [facility] [place] HEMATOLOGY PROFILES WBC 4.53 x10(9)/L 3.50 - 10.50 07/21 15:03 :00 [facility] [place] HEMATOLOGY PROFILES MCV 95.4 fL 81.2 - 95.1 07/21 15:03 :00 [facility] [place] HEMATOLOGY PROFILES RDW CV 16.3 % 11.8 - 15.6 07/21 15:03 :00 [facility] [place] HEMATOLOGY PROFILES MCHC 32.3 g/dL 32.0 - 36.0 07/21 15:03 :00 [facility] [place] HEMATOLOGY PROFILES MCH 30.8 pg 26.0 - 33.0 07/21 15:03 :00 [facility] [place] HEMATOLOGY PROFILES PLT 189 x10(9)/L 150 - 450 07/21 15:03 :00 [facility] [place] HEMATOLOGY PROFILES RDW SD 57.1 fL 35.1 - 43.9 07/21 15:03 :00 [facility] [place] HEMATOLOGY PROFILES MPV 9.8 8.0 - 12.0 07/21 15:03 :00 [facility] [place] HEMATOLOGY PROFILES Absolute Nucleated RBCs 0.0 x10(9)/L 0.0 - 0.0 07/21 15:03 :00 Interpretive Data: Normal values not established in patients less than 18 years old. [facility] [place] HEMATOLOGY PROFILES % Nucleated RBCs 0.0 % 07/21 15:03 :00 [facility] [place] HEMATOLOGY PROFILES % Monocytes 21.0 % 07/21 15:03 :00 [facility] [place] HEMATOLOGY PROFILES % Lymphocytes 13.0 % 07/21 15:03 :00 [facility] [place] HEMATOLOGY PROFILES % Neutrophils 64.9 % 07/21 15:03 :00 [facility] [place] HEMATOLOGY PROFILES % Immature Granulocytes 0.70 % 0.02 - 0.42 07/21 15:03 :00 [facility] [place] HEMATOLOGY PROFILES % Basophils 0.2 % 07/21 15:03 :00 [facility] [place] HEMATOLOGY PROFILES % Eosinophils 0.2 % 07/21 15:03 :00 [facility] [place] HEMATOLOGY PROFILES Abs Lymphocytes 0.59 x10(9)/L 0.90 - 2.90 07/21 15:03 :00 [facility] [place] HEMATOLOGY PROFILES Absolute Granulocytes 2.94 x10(9)/L 1.70 - 7.00 07/21 15:03 :00 [facility] [place] HEMATOLOGY PROFILES Abs Basophils 0.01 x10(9)/L 0.00 - 0.30 07/21 15:03 :00 [facility] [place] HEMATOLOGY PROFILES Abs Eosinophils 0.01 x10(9)/L 0.05 - 0.50 07/21 15:03 :00 [facility] [place] HEMATOLOGY PROFILES Abs Monocytes 0.95 x10(9)/L 0.30 - 0.90 07/21 15:03 :00 [facility] [place] HEMATOLOGY PROFILES Abs Immature Granulocytes 0.03 x10(9)/L 0.00 - 0.03 07/21 15:03 :00 [facility] [place] THERAPEUTI C DRUGS Methotrexate Lvl 0.97 umol/L 07/21 10:10 :00 [facility] [place] URINALYSIS RBC None Seen /hpf 0 - 2 07/21 10:10 :00 [facility] [place] URINALYSIS UA Epithelial Cells Few /lpf 07/21 10:10 :00 [facility] [place] URINALYSIS WBC 0-3 /hpf 0 - 3 07/21 10:10 :00 [facility] [place] THERAPEUTI C DRUGS Methotrexate Lvl 7.69 umol/L 07/21 05:40 :00 Result Comment: Critical Result(s) Called at: 01:02:01 07/21/2024. Called to and read back by:Supriya Mays ,RN XG [facility] [place] BODY FLUIDS/CSF CSF, RBC 1 /mcL 07/20 18:50 :00 Interpretive Data: Variation from manual counting may exceed 50% and approach 15-20% using automated method. [facility] [place] BODY FLUIDS/CSF CSF, WBC 0 /mcL 07/20 18:50 :00 Interpretive Data: Variation from manual counting may exceed 50% and approach 15-20% using automated method. Pleocytosis in Adults (increased WBC count) may be graded: Mild: 5-50 WBC/uL Moderate: 51-200 WBC/uL Severe: > 200 WBC/uL CSF may have > 60% neutrophils in high-risk neonates without meningitis [facility] [place] BODY FLUIDS/CSF CSF, Spec Appear Clear (07/20/24 1:50 PM) 07/20 18:50 :00 [facility] [place] BODY FLUIDS/CSF CSF, Color Colorless (07/20/24 1:50 PM) 07/20 18:50 :00 [facility] [place] BODY FLUIDS/CSF CSF Cutoff Values See Comment 22 (07/20/24 1:50 PM) 07/20 18:50 :00 Interpretive Data: Cells: Cells Adults Neonates WBC 0-5 WBC/uL 0-30 WBC/uL RBC Absent Absent Neutrophils 0-6% 0-8% Lymphocytes 40-80% 5-35% Monocytes 15-45% 50-90% Eosinophils Rare Rare Note: These Reference ranges or Cutoff Values of normal vs. abnormal are based on the peer reviewed literature and reference texts. We cannot define 95% range for normal patients, as it would require invasive sampling of normal people. [facility] [place] BODY FLUIDS/CSF CSF, Glucose 116 mg/dL 40 - 70 07/20 18:50 :00 [facility] [place] Cytology Non-ALCOHOL STILL OPERATOR Report Cytology Non-ALCOHOL STILL OPERATOR Report CYTOLOGY MEDICAL REPORT Patient Name: EVELINA DO Specimen Number: [id number] Patient Collection Date: 07/20/2024 Submitting Physician: Heike Barrientos MD Signout Date: 07/22/2024 Other Physician( s): Luis Badillo MD ======== FINAL DIAGNOSIS CEREBROSPI NAL FLUID: Negative for Acute Leukemia. Please see previous material ([id number], [id number], [id number], [id number]) Diagnosis Comment Microscopi c descriptio n: Review of Luo stained CSF cytospin preparatio n reveals background small mature monocytes, a few monocytes and and scattered neutrophil s. No blast cell identified . 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 All outside slides are received stained and are microscopi guilherme examined in the laboratory . The performanc e characteri stics of the immunohist ochemical stains cited in this report (if any) were determined by the [facility] Department of Pathology. They have not been cleared or approved by the U.S. Food and Drug Administra tion. The FDA has determined that such clearance or approval is not necessary. This test is for clinical purposes. It should not be regarded as investigat ional or for research. This laboratory is certified under the Clinical Laboratory Improvemen t Amendments of 1988 (CLIA) as qualified to perform high complexity clinical laboratory testing. 07/20 14:18 :00 Missing Attachment [id number].PDF can be viewed in source system [facility] GENERAL CHEMISTRY Estimated GFR for Adults 140 mL/min/1.7 3m 07/20 10:35 :00 Interpretive Data: Changed to CKD-EPI 2020 on 2020. [facility] [place] GENERAL CHEMISTRY Magnesium 1.67 mg/dL 1.60 - 2.60 07/20 10:35 :00 [facility] [place] GENERAL CHEMISTRY Phosphorus 2.7 mg/dL 2.4 - 5.1 07/20 10:35 :00 [facility] [place] GENERAL CHEMISTRY Uric Acid 7.0 mg/dL 3.7 - 9.2 07/20 10:35 :00 [facility] [place] HEMATOLOGY PROFILES % Nucleated RBCs 0.0 % 07/20 10:35 :00 [facility] [place] HEMATOLOGY PROFILES Absolute Nucleated RBCs 0.0 x10(9)/L 0.0 - 0.0 07/20 10:35 :00 Interpretive Data: Normal values not established in patients less than 18 years old. [facility] [place] HEMATOLOGY PROFILES % Neutrophils 90.5 % 07/20 10:35 :00 [facility] [place] HEMATOLOGY PROFILES % Monocytes 1.6 % 07/20 10:35 :00 [facility] [place] HEMATOLOGY PROFILES % Lymphocytes 6.2 % 07/20 10:35 :00 [facility] [place] HEMATOLOGY PROFILES % Basophils 0.3 % 07/20 10:35 :00 [facility] [place] HEMATOLOGY PROFILES % Eosinophils 0.0 % 07/20 10:35 :00 [facility] [place] HEMATOLOGY PROFILES % Immature Granulocytes 1.40 % 0.02 - 0.42 07/20 10:35 :00 [facility] [place] HEMATOLOGY PROFILES Abs Lymphocytes 0.39 x10(9)/L 0.90 - 2.90 07/20 10:35 :00 [facility] [place] HEMATOLOGY PROFILES Absolute Granulocytes 5.73 x10(9)/L 1.70 - 7.00 07/20 10:35 :00 [facility] [place] HEMATOLOGY PROFILES Abs Eosinophils 0.00 x10(9)/L 0.05 - 0.50 07/20 10:35 :00 [facility] [place] HEMATOLOGY PROFILES Abs Monocytes 0.10 x10(9)/L 0.30 - 0.90 07/20 10:35 :00 [facility] [place] HEMATOLOGY PROFILES Abs Immature Granulocytes 0.09 x10(9)/L 0.00 - 0.03 07/20 10:35 :00 [facility] [place] HEMATOLOGY PROFILES Abs Basophils 0.02 x10(9)/L 0.00 - 0.30 07/20 10:35 :00 [facility] [place] URINALYSIS Urine Collection Method Clean Catch UR (07/20/24 5:35 AM) 07/20 10:35 :00 [facility] [place] GENERAL CHEMISTRY LDH 365 U/L 120 - 246 07/19 19:20 :00 [facility] [place] GENERAL CHEMISTRY Magnesium 1.80 mg/dL 1.60 - 2.60 07/19 19:20 :00 [facility] [place] GENERAL CHEMISTRY Uric Acid 7.2 mg/dL 3.7 - 9.2 07/19 19:20 :00 [facility] [place] GENERAL CHEMISTRY Phosphorus 5.1 mg/dL 2.4 - 5.1 07/19 19:20 :00 [facility] [place] XR Chest Portable XR Chest Portable XR General Diagnostic Accession # Exam Date/Time Procedure Ordering Provider [id number] 07/19/2024 14:00 CDT XR Chest Portable Dario Madsen DO Reason For Exam (XR Chest Portable) PICC placement Report EXAMINATIO N: XR Chest Portable INDICATION : PICC placement VIEWS: 1 COMPARISON : Chest radiograph 04/25/2024 FINDINGS: Interval placement of right upper extremity PICC with distal tip terminatin g in the distal SVC. Normal cardiomedi astinal silhouette . No focal parenchyma l process. No pleural effusions. No pneumothor ax. No acute osseous abnormalit ies. IMPRESSION : Interval placement of right upper extremity PICC with distal tip terminatin g in the distal SVC. No acute cardiopulm onary findings. I have personally reviewed the images and attest to the contents of this report. * * *Final Report* * * Electronic ally Signed by: Mounika BRISCOE, Moises Oliveira Signed on: 07/19/24 14:09 07/19 13:42 :28 [facility] GENERAL CHEMISTRY LDH 143 U/L 120 - 246 07/08 12:37 :00 [facility] GENERAL CHEMISTRY AST-SGOT 15 U/L 07/08 12:37 :00 [facility] GENERAL CHEMISTRY Albumin 3.9 g/dL 3.4 - 5.0 07/08 12:37 :00 [facility] GENERAL CHEMISTRY Alkaline Phosphatase 100 U/L 40 - 129 07/08 12:37 :00 [facility] GENERAL CHEMISTRY ALT-SGPT 22 U/L 10 - 50 07/08 12:37 :00 [facility] GENERAL CHEMISTRY BUN 7 mg/dL 6 - 20 07/08 12:37 :00 [facility] GENERAL CHEMISTRY Calcium 9.2 mg/dL 8.3 - 10.6 07/08 12:37 :00 [facility] GENERAL CHEMISTRY Glucose Lvl 89 mg/dL 70 - 139 07/08 12:37 :00 [facility] GENERAL CHEMISTRY Chloride 106 mmol/L 98 - 107 07/08 12:37 :00 [facility] GENERAL CHEMISTRY Sodium 140 mmol/L 136 - 145 07/08 12:37 :00 [facility] GENERAL CHEMISTRY Potassium 4.0 mmol/L 3.5 - 5.1 07/08 12:37 :00 [facility] GENERAL CHEMISTRY CO2 26 mmol/L 20 - 07/08 12:37 :00 [facility] GENERAL CHEMISTRY Anion gap 12 mmol/L 0 - 20 07/08 12:37 :00 [facility] GENERAL CHEMISTRY T Bili 0.26 mg/dL 0.30 - 1.20 07/08 12:37 :00 [facility] GENERAL CHEMISTRY Total Protein 5.9 g/dL 5.7 - 8.2 07/08 12:37 :00 [facility] GENERAL CHEMISTRY Creatinine, standardized 0.5 mg/dL 0.7 - 1.2 07/08 12:37 :00 Interpretive Data: Rkbdem-ou-uab e transgender patients on testosterone therapy should have results assessed using the male reference range. Hrca-tl-nmzbk e transgender patients on hormone-modul ating therapy clinical judgment is advisedfor assessment. [facility] GENERAL CHEMISTRY Estimated GFR for Adults 144 mL/min/1.7 3m 07/08 12:37 :00 Interpretive Data: Changed to CKD-EPI 2020 on 2020. [facility] GENERAL CHEMISTRY Estimated GFR for peds Not calculated 07/08 12:37 :00 Interpretive Data: The estimated GFR was calculated using the Teddy barker Dorado equation (2009) . Reference: Pediatric GFR calculator at [employer] Website. [facility] HEMATOLOGY PROFILES QA Review Agree (07/08/24 7:37 AM) 07/08 12:37 :00 [facility] HEMATOLOGY PROFILES Neuts Manual 46.0 % 07/08 12:37 :00 [facility] HEMATOLOGY PROFILES Lymphocytes Manual 29.0 % 07/08 12:37 :00 [facility] HEMATOLOGY PROFILES Monocytes Manual 12.0 % 07/08 12:37 :00 [facility] HEMATOLOGY PROFILES Eosinophils Manual 10.0 % 07/08 12:37 :00 [facility] HEMATOLOGY PROFILES Basophils Manual 2.0 % 07/08 12:37 :00 [facility] HEMATOLOGY PROFILES Reactive Lymphs Manual 1.0 % 07/08 12:37 :00 [facility] HEMATOLOGY PROFILES Abs Reactive Lymphs Manual 00.01 07/08 12:37 :00 [facility] HEMATOLOGY PROFILES Absolute Neutrophils Manual 0.64 x10(9)/L 1.70 - 7.00 07/08 12:37 :00 [facility] HEMATOLOGY PROFILES Abs Lymphocytes Manual 0.41 x10(9)/L 0.90 - 2.90 07/08 12:37 :00 [facility] HEMATOLOGY PROFILES Abs Monocytes Manual 0.17 x10(9)/L 0.30 - 0.90 07/08 12:37 :00 [facility] HEMATOLOGY PROFILES Abs Eosinophils Manual 0.14 x10(9)/L 0.05 - 0.50 07/08 12:37 :00 [facility] HEMATOLOGY PROFILES Abs Basophils Manual 0.03 x10(9)/L 0.00 - 0.30 07/08 12:37 :00 [facility] HEMATOLOGY PROFILES Morphology Present *NA* (07/08/24 7:37 AM) 07/08 12:37 :00 [facility] HEMATOLOGY PROFILES Platelet Estimate Decreased *NA* (07/08/24 7:37 AM) 07/08 12:37 :00 [facility] HEMATOLOGY PROFILES Aniso 1+ (10-20%) *NA* (07/08/24 7:37 AM) 07/08 12:37 :00 [facility] HEMATOLOGY PROFILES Elliptocytes (Ovalocytes) 1+ (10-25%) *NA* (07/08/24 7:37 AM) 07/08 12:37 :00 [facility] HEMATOLOGY PROFILES Internal Review Yes (07/08/24 7:37 AM) 07/08 12:37 :00 [facility] HEMATOLOGY PROFILES WBC 1.40 x10(9)/L 3.50 - 10.50 07/08 12:37 :00 [facility] HEMATOLOGY PROFILES RBC 3.34 x10(12)/L 4.32 - 5.72 07/08 12:37 :00 [facility] HEMATOLOGY PROFILES HGB 10.0 g/dL 13.5 - 17.5 07/08 12:37 :00 Interpretive Data: Hgdndj-uc-eai e transgender patients on testosterone therapy should have results assessed using the male reference range. Jesm-ml-zflka e transgender patients on hormone-modul ating therapy clinical judgment is advisedfor assessment. [facility] HEMATOLOGY PROFILES HCT 31.8 % 38.8 - 50.0 07/08 12:37 :00 Interpretive Data: Thkcpp-am-lay e transgender patients on testosterone therapy should have results assessed using the male reference range. Hbgh-xm-atwtu e transgender patients on hormone-modul ating therapy clinical judgment is advisedfor assessment. [facility] HEMATOLOGY PROFILES MCV 95.2 fL 81.2 - 95.1 07/08 12:37 :00 [facility] HEMATOLOGY PROFILES MCH 29.9 pg 26.0 - 33.0 07/08 12:37 :00 [facility] HEMATOLOGY PROFILES MCHC 31.4 g/dL 32.0 - 36.0 07/08 12:37 :00 [facility] HEMATOLOGY PROFILES RDW CV 16.4 % 11.8 - 15.6 07/08 12:37 :00 [facility] HEMATOLOGY PROFILES RDW SD 57.7 fL 35.1 - 43.9 07/08 12:37 :00 [facility] HEMATOLOGY PROFILES PLT 90 x10(9)/L 150 - 450 07/08 12:37 :00 [facility] HEMATOLOGY PROFILES MPV 10.9 8.0 - 12.0 07/08 12:37 :00 [facility] OTHER HEMATOLOGY TESTS Reticulocyte Count 0.006 0.055 - 0.141 07/08 12:37 :00 [facility] OTHER HEMATOLOGY TESTS Reticulocyte Percent 0.2 % 1.1 - 2.7 07/08 12:37 :00 [facility] OTHER HEMATOLOGY TESTS Immature Reticulocyte Fraction 11.8 % 2.3 - 15.9 07/08 12:37 :00 [facility] OTHER HEMATOLOGY TESTS Reticulocyte Hemoglobin 36.5 pg 29.0 - 35.3 07/08 12:37 :00 [facility] Cytology Non-ALCOHOL STILL OPERATOR Report Cytology Non-ALCOHOL STILL OPERATOR Report CYTOLOGY MEDICAL REPORT Patient Name: EVELINA DO Specimen Number: [id number] Patient Collection Date: 07/01/2024 Submitting Physician: Heike Barrientos MD Signout Date: 07/03/2024 Other Physician( s): Roxi Sol MD ======== FINAL DIAGNOSIS CEREBROSPI NAL FLUID: Negative for acute leukemia. See previous material ([id number], [id number], [id number], [id number], [id number], [id number], [id number], [id number], H24-145). Diagnosis Comment Review of the Luo stained cerebrospi nal fluid shows rare monocytes and small mature lymphocyte s. ======== Source of Specimen(s ) CEREBROSPI NAL FLUID Clinical History B-ALL, reflex flow requested Descriptio n of Specimen RECEIVED 5 ML OF FRESH LIGHT YELLOW FLUID HEMATOLOGY PREPARED 2 CYTOSPINS All slides and preparatio ns are stained and microscopi guilherme examined in the laboratory . All outside slides are received stained and are microscopi guilherme examined in the laboratory . The performanc e characteri stics of the immunohist ochemical stains cited in this report (if any) were determined by the [facility] Department of Pathology. They have not been cleared or approved by the U.S. Food and Drug Administra tion. The FDA has determined that such clearance or approval is not necessary. This test is for clinical purposes. It should not be regarded as investigat ional or for research. This laboratory is certified under the Clinical Laboratory Improvemen t Amendments of 1988 (CLIA) as qualified to perform high complexity clinical laboratory testing. 07/01 12:55 :00 Missing Attachment [id number] can be viewed in source system [facility] GENERAL CHEMISTRY BUN 14 mg/dL 6 - 20 07/01 09:14 :00 [facility] [place] GENERAL CHEMISTRY Calcium 9.7 mg/dL 8.3 - 10.6 07/01 09:14 :00 [facility] [place] GENERAL CHEMISTRY Glucose Lvl 114 mg/dL 70 - 139 07/01 09:14 :00 [facility] [place] GENERAL CHEMISTRY Chloride 107 mmol/L 98 - 107 07/01 09:14 :00 [facility] [place] GENERAL CHEMISTRY Sodium 139 mmol/L 136 - 145 07/01 09:14 :00 [facility] [place] GENERAL CHEMISTRY Potassium 3.9 mmol/L 3.5 - 5.1 07/01 09:14 :00 [facility] [place] GENERAL CHEMISTRY CO2 28 mmol/L 20 - 31 07/01 09:14 :00 [facility] [place] GENERAL CHEMISTRY Anion gap 8 mmol/L 0 - 20 07/01 09:14 :00 [facility] [place] GENERAL CHEMISTRY Creatinine, standardized 0.5 mg/dL 0.7 - 1.2 07/01 09:14 :00 Interpretive Data: Nsplhi-lv-nde e transgender patients on testosterone therapy should have results assessed using the male reference range. Fafi-gg-fspsl e transgender patients on hormone-modul ating therapy clinical judgment is advisedfor assessment. [facility] [place] GENERAL CHEMISTRY Estimated GFR for Adults 149 mL/min/1.7 3m 07/01 09:14 :00 Interpretive Data: Changed to CKD-EPI 2020 on 2020. [facility] [place] GENERAL CHEMISTRY Estimated GFR for peds Not calculated 07/01 09:14 :00 Interpretive Data: The estimated GFR was calculated using the B lucero Dorado equation (2009) . Reference: Pediatric GFR calculator at [employer] Website. [facility] [place] HEMATOLOGY PROFILES Morphology Previously Reviewed, results remain consistent *NA* (07/01/24 4:14 AM) 07/01 09:14 :00 [facility] [place] HEMATOLOGY PROFILES % Nucleated RBCs 0.0 % 07/01 09:14 :00 [facility] [place] HEMATOLOGY PROFILES Absolute Nucleated RBCs 0.0 x10(9)/L 0.0 - 0.0 07/01 09:14 :00 Interpretive Data: Normal values not established in patients less than 18 years old. [facility] [place] HEMATOLOGY PROFILES % Neutrophils 89.3 % 07/01 09:14 :00 [facility] [place] HEMATOLOGY PROFILES % Lymphocytes 2.4 % 07/01 09:14 :00 [facility] [place] HEMATOLOGY PROFILES % Monocytes 7.4 % 07/01 09:14 :00 [facility] [place] HEMATOLOGY PROFILES % Eosinophils 0.0 % 07/01 09:14 :00 [facility] [place] HEMATOLOGY PROFILES % Basophils 0.0 % 07/01 09:14 :00 [facility] [place] HEMATOLOGY PROFILES % Immature Granulocytes 0.90 % 0.02 - 0.42 07/01 09:14 :00 [facility] [place] HEMATOLOGY PROFILES Absolute Granulocytes 6.26 x10(9)/L 1.70 - 7.00 07/01 09:14 :00 [facility] [place] HEMATOLOGY PROFILES Abs Lymphocytes 0.17 x10(9)/L 0.90 - 2.90 07/01 09:14 :00 [facility] [place] HEMATOLOGY PROFILES Abs Monocytes 0.52 x10(9)/L 0.30 - 0.90 07/01 09:14 :00 [facility] [place] HEMATOLOGY PROFILES Abs Eosinophils 0.00 x10(9)/L 0.05 - 0.50 07/01 09:14 :00 [facility] [place] HEMATOLOGY PROFILES Abs Basophils 0.00 x10(9)/L 0.00 - 0.30 07/01 09:14 :00 [facility] [place] HEMATOLOGY PROFILES Abs Immature Granulocytes 0.06 x10(9)/L 0.00 - 0.03 07/01 09:14 :00 [facility] [place] HEMATOLOGY PROFILES WBC 7.01 x10(9)/L 3.50 - 10.50 07/01 09:14 :00 [facility] [place] HEMATOLOGY PROFILES RBC 3.68 x10(12)/L 4.32 - 5.72 07/01 09:14 :00 [facility] [place] HEMATOLOGY PROFILES HGB 11.3 g/dL 13.5 - 17.5 07/01 09:14 :00 Interpretive Data: Phzwne-mk-ggy e transgender patients on testosterone therapy should have results assessed using the male reference range. Iyve-ax-uulci e transgender patients on hormone-modul ating therapy clinical judgment is advisedfor assessment. [facility] [place] HEMATOLOGY PROFILES HCT 34.6 % 38.8 - 50.0 07/01 09:14 :00 Interpretive Data: Fixvmf-zx-hzh e transgender patients on testosterone therapy should have results assessed using the male reference range. Cfqf-zr-sruld e transgender patients on hormone-modul ating therapy clinical judgment is advisedfor assessment. [facility] [place] HEMATOLOGY PROFILES MCV 94.0 fL 81.2 - 95.1 07/01 09:14 :00 [facility] [place] HEMATOLOGY PROFILES MCH 30.7 pg 26.0 - 33.0 07/01 09:14 :00 [facility] [place] HEMATOLOGY PROFILES MCHC 32.7 g/dL 32.0 - 36.0 07/01 09:14 :00 [facility] [place] HEMATOLOGY PROFILES RDW CV 17.1 % 11.8 - 15.6 07/01 09:14 :00 [facility] [place] HEMATOLOGY PROFILES RDW SD 59.4 fL 35.1 - 43.9 07/01 09:14 :00 [facility] HEMATOLOGY PROFILES PLT 175 x10(9)/L 150 - 450 07/01 09:14 :00 [facility] HEMATOLOGY PROFILES MPV 10.7 8.0 - 12.0 07/01 09:14 :00 [facility] GENERAL CHEMISTRY AST-SGOT 20 U/L 06/30 09:12 :00 [facility] GENERAL CHEMISTRY Albumin 3.7 g/dL 3.4 - 5.0 06/30 09:12 :00 [facility] GENERAL CHEMISTRY Alkaline Phosphatase 77 U/L 40 - 129 06/30 09:12 :00 [facility] CHEMISTRY ALT-SGPT 27 U/L 10 - 50 06/30 09:12 :00 [facility] CHEMISTRY BUN 13 mg/dL 6 - 20 06/30 09:12 :00 [facility] GENERAL CHEMISTRY Calcium 10.1 mg/dL 8.3 - 10.6 06/30 09:12 :00 [facility] GENERAL CHEMISTRY Glucose Lvl 126 mg/dL 70 - 139 06/30 09:12 :00 [facility] GENERAL CHEMISTRY Chloride 106 mmol/L 98 - 107 06/30 09:12 :00 [facility] GENERAL CHEMISTRY Sodium 142 mmol/L 136 - 145 06/30 09:12 :00 [facility] GENERAL CHEMISTRY Potassium 4.0 mmol/L 3.5 - 5.1 06/30 09:12 :00 [facility] GENERAL CHEMISTRY CO2 27 mmol/L 20 - 31 06/30 09:12 :00 [facility] GENERAL CHEMISTRY Anion gap 13 mmol/L 0 - 20 06/30 09:12 :00 [facility] GENERAL CHEMISTRY T Bili 0.42 mg/dL 0.30 - 1.20 06/30 09:12 :00 [facility] GENERAL CHEMISTRY Total Protein 6.3 g/dL 5.7 - 8.2 06/30 09:12 :00 [facility] GENERAL CHEMISTRY Creatinine, standardized 0.6 mg/dL 0.7 - 1.2 06/30 09:12 :00 Interpretive Data: Ulfesu-wl-nfc e transgender patients on testosterone therapy should have results assessed using the male reference range. Scoi-jc-defsu e transgender patients on hormone-modul ating therapy clinical judgment is advisedfor assessment. [facility] GENERAL CHEMISTRY Estimated GFR for Adults 141 mL/min/1.7 3m 06/30 09:12 :00 Interpretive Data: Changed to CKD-EPI 2020 on 2020. [facility] GENERAL CHEMISTRY Estimated GFR for peds Not calculated 06/30 09:12 :00 Interpretive Data: The estimated GFR was calculated using the B lucero Dorado equation (2009) . Reference: Pediatric GFR calculator at [employer] Website. [facility] HEMATOLOGY PROFILES WBC 9.32 x10(9)/L 3.50 - 10.50 06/30 09:12 :00 [facility] HEMATOLOGY PROFILES RBC 3.60 x10(12)/L 4.32 - 5.72 06/30 09:12 :00 [facility] HEMATOLOGY PROFILES HGB 11.0 g/dL 13.5 - 17.5 06/30 09:12 :00 Interpretive Data: Eeorlt-su-gqz e transgender patients on testosterone therapy should have results assessed using the male reference range. Yrpm-mc-qvpbp e transgender patients on hormone-modul ating therapy clinical judgment is advisedfor assessment. [facility] HEMATOLOGY PROFILES HCT 34.0 % 38.8 - 50.0 06/30 09:12 :00 Interpretive Data: Tzkzha-gl-wtw e transgender patients on testosterone therapy should have results assessed using the male reference range. Mtag-wo-hklcx e transgender patients on hormone-modul ating therapy clinical judgment is advisedfor assessment. [facility] HEMATOLOGY PROFILES MCV 94.4 fL 81.2 - 95.1 06/30 09:12 :00 [facility] HEMATOLOGY PROFILES MCH 30.6 pg 26.0 - 33.0 06/30 09:12 :00 [facility] HEMATOLOGY PROFILES MCHC 32.4 g/dL 32.0 - 36.0 06/30 09:12 :00 [facility] HEMATOLOGY PROFILES RDW CV 17.8 % 11.8 - 15.6 06/30 09:12 :00 [facility] HEMATOLOGY PROFILES RDW SD 62.2 fL 35.1 - 43.9 06/30 09:12 :00 [facility] HEMATOLOGY PROFILES PLT 194 x10(9)/L 150 - 450 06/30 09:12 :00 [facility] HEMATOLOGY PROFILES MPV 10.6 8.0 - 12.0 06/30 09:12 :00 [facility] HEMATOLOGY PROFILES % Nucleated RBCs 0.0 % 06/30 09:12 :00 [facility] HEMATOLOGY PROFILES Absolute Nucleated RBCs 0.0 x10(9)/L 0.0 - 0.0 06/30 09:12 :00 Interpretive Data: Normal values not established in patients less than 18 years old. [facility] HEMATOLOGY PROFILES % Neutrophils 92.3 % 06/30 09:12 :00 [facility] HEMATOLOGY PROFILES % Lymphocytes 3.1 % 06/30 09:12 :00 [facility] HEMATOLOGY PROFILES % Monocytes 3.1 % 06/30 09:12 :00 [facility] HEMATOLOGY PROFILES % Eosinophils 0.0 % 06/30 09:12 :00 [facility] HEMATOLOGY PROFILES % Basophils 0.1 % 06/30 09:12 :00 [facility] HEMATOLOGY PROFILES % Immature Granulocytes 1.40 % 0.02 - 0.42 06/30 09:12 :00 [facility] HEMATOLOGY PROFILES Absolute Granulocytes 8.60 x10(9)/L 1.70 - 7.00 06/30 09:12 :00 [facility] HEMATOLOGY PROFILES Abs Lymphocytes 0.29 x10(9)/L 0.90 - 2.90 06/30 09:12 :00 [facility] HEMATOLOGY PROFILES Abs Monocytes 0.29 x10(9)/L 0.30 - 0.90 06/30 09:12 :00 [facility] HEMATOLOGY PROFILES Abs Eosinophils 0.00 x10(9)/L 0.05 - 0.50 06/30 09:12 :00 [facility] HEMATOLOGY PROFILES Abs Basophils 0.01 x10(9)/L 0.00 - 0.30 06/30 09:12 :00 [facility] HEMATOLOGY PROFILES Abs Immature Granulocytes 0.13 x10(9)/L 0.00 - 0.03 06/30 09:12 :00 [facility] HEMATOLOGY PROFILES Morphology Previously Reviewed, results remain consistent *NA* (06/30/24 4:12 AM) 06/30 09:12 :00 [facility] GENERAL CHEMISTRY AST-SGOT 24 U/L 06/29 10:42 :00 [facility] GENERAL CHEMISTRY Albumin 3.8 g/dL 3.4 - 5.0 06/29 10:42 :00 [facility] GENERAL CHEMISTRY Alkaline Phosphatase 77 U/L 40 - 129 06/29 10:42 :00 [facility] CHEMISTRY ALT-SGPT 29 U/L 10 - 50 06/29 10:42 :00 [facility] CHEMISTRY BUN 11 mg/dL 6 - 20 06/29 10:42 :00 [facility] GENERAL CHEMISTRY Calcium 10.4 mg/dL 8.3 - 10.6 06/29 10:42 :00 [facility] GENERAL CHEMISTRY Glucose Lvl 135 mg/dL 70 - 139 06/29 10:42 :00 [facility] GENERAL CHEMISTRY Chloride 106 mmol/L 98 - 107 06/29 10:42 :00 [facility] GENERAL CHEMISTRY Sodium 141 mmol/L 136 - 145 06/29 10:42 :00 [facility] GENERAL CHEMISTRY Potassium 4.0 mmol/L 3.5 - 5.1 06/29 10:42 :00 [facility] GENERAL CHEMISTRY CO2 27 mmol/L 20 - 31 06/29 10:42 :00 [facility] GENERAL CHEMISTRY Anion gap 12 mmol/L 0 - 20 06/29 10:42 :00 [facility] GENERAL CHEMISTRY T Bili 0.37 mg/dL 0.30 - 1.20 06/29 10:42 :00 [facility] GENERAL CHEMISTRY Total Protein 6.5 g/dL 5.7 - 8.2 06/29 10:42 :00 [facility] CHEMISTRY Creatinine, standardized 0.5 mg/dL 0.7 - 1.2 06/29 10:42 :00 Interpretive Data: Dzgiog-dm-lca e transgender patients on testosterone therapy should have results assessed using the male reference range. Isks-ya-xghdx e transgender patients on hormone-modul ating therapy clinical judgment is advisedfor assessment. [facility] GENERAL CHEMISTRY Estimated GFR for Adults 143 mL/min/1.7 3m 06/29 10:42 :00 Interpretive Data: Changed to CKD-EPI 2020 on 2020. [facility] GENERAL CHEMISTRY Estimated GFR for peds Not calculated 06/29 10:42 :00 Interpretive Data: The estimated GFR was calculated using the Teddy barker Dorado equation (2009) . Reference: Pediatric GFR calculator at [employer] Website. [facility] HEMATOLOGY PROFILES % Nucleated RBCs 0.0 % 06/29 10:42 :00 [facility] HEMATOLOGY PROFILES Absolute Nucleated RBCs 0.0 x10(9)/L 0.0 - 0.0 06/29 10:42 :00 Interpretive Data: Normal values not established in patients less than 18 years old. [facility] HEMATOLOGY PROFILES % Neutrophils 90.8 % 06/29 10:42 :00 [facility] HEMATOLOGY PROFILES % Lymphocytes 3.9 % 06/29 10:42 :00 [facility] HEMATOLOGY PROFILES % Monocytes 3.5 % 06/29 10:42 :00 [facility] HEMATOLOGY PROFILES % Eosinophils 0.0 % 06/29 10:42 :00 [facility] HEMATOLOGY PROFILES % Basophils 0.1 % 06/29 10:42 :00 [facility] HEMATOLOGY PROFILES % Immature Granulocytes 1.70 % 0.02 - 0.42 06/29 10:42 :00 [facility] HEMATOLOGY PROFILES Absolute Granulocytes 8.60 x10(9)/L 1.70 - 7.00 06/29 10:42 :00 [facility] HEMATOLOGY PROFILES Abs Lymphocytes 0.37 x10(9)/L 0.90 - 2.90 06/29 10:42 :00 [facility] HEMATOLOGY PROFILES Abs Monocytes 0.33 x10(9)/L 0.30 - 0.90 06/29 10:42 :00 [facility] HEMATOLOGY PROFILES Abs Eosinophils 0.00 x10(9)/L 0.05 - 0.50 06/29 10:42 :00 [facility] HEMATOLOGY PROFILES Abs Basophils 0.01 x10(9)/L 0.00 - 0.30 06/29 10:42 :00 [facility] HEMATOLOGY PROFILES Abs Immature Granulocytes 0.16 x10(9)/L 0.00 - 0.03 06/29 10:42 :00 [facility] HEMATOLOGY PROFILES Morphology Previously Reviewed, results remain consistent *NA* (06/29/24 5:42 AM) 06/29 10:42 :00 [facility] HEMATOLOGY PROFILES WBC 9.47 x10(9)/L 3.50 - 10.50 06/29 10:42 :00 [facility] HEMATOLOGY PROFILES RBC 3.52 x10(12)/L 4.32 - 5.72 06/29 10:42 :00 [facility] HEMATOLOGY PROFILES HGB 10.8 g/dL 13.5 - 17.5 06/29 10:42 :00 Interpretive Data: Kjghwd-by-xje e transgender patients on testosterone therapy should have results assessed using the male reference range. Hgmp-bl-oufhu e transgender patients on hormone-modul ating therapy clinical judgment is advisedfor assessment. [facility] HEMATOLOGY PROFILES HCT 32.8 % 38.8 - 50.0 06/29 10:42 :00 Interpretive Data: Xxpptc-di-xao e transgender patients on testosterone therapy should have results assessed using the male reference range. Hxet-cr-ztklr e transgender patients on hormone-modul ating therapy clinical judgment is advisedfor assessment. [facility] HEMATOLOGY PROFILES MCV 93.2 fL 81.2 - 95.1 06/29 10:42 :00 [facility] HEMATOLOGY PROFILES MCH 30.7 pg 26.0 - 33.0 06/29 10:42 :00 [facility] HEMATOLOGY PROFILES MCHC 32.9 g/dL 32.0 - 36.0 06/29 10:42 :00 [facility] HEMATOLOGY PROFILES RDW CV 18.2 % 11.8 - 15.6 06/29 10:42 :00 [facility] HEMATOLOGY PROFILES RDW SD 62.3 fL 35.1 - 43.9 06/29 10:42 :00 [facility] HEMATOLOGY PROFILES PLT 222 x10(9)/L 150 - 450 06/29 10:42 :00 [facility] HEMATOLOGY PROFILES MPV 10.6 8.0 - 12.0 06/29 10:42 :00 [facility] BODY FLUIDS/CSF CSF, Protein 13 mg/dL 15 - 45 06/28 18:49 :00 [facility] BODY FLUIDS/CSF CSF, Glucose 109 mg/dL 40 - 70 06/28 18:49 :00 [facility] BODY FLUIDS/CSF CSF Xanthochromi c Absent (06/28/24 1:49 PM) 06/28 18:49 :00 [facility] BODY FLUIDS/CSF CSF Cutoff Values See Comment 17 (06/28/24 1:49 PM) 06/28 18:49 :00 Interpretive Data: Cells: Cells Adults Neonates WBC 0-5 WBC/uL 0-30 WBC/uL RBC Absent Absent Neutrophils 0-6% 0-8% Lymphocytes 40-80% 5-35% Monocytes 15-45% 50-90% Eosinophils Rare Rare Note: These Reference ranges or Cutoff Values of normal vs. abnormal are based on the peer reviewed literature and reference texts. We cannot define 95% range for normal patients, as it would require invasive sampling of normal people. [facility] BODY FLUIDS/CSF CSF, Color Colorless (06/28/24 1:49 PM) 06/28 18:49 :00 [facility] BODY FLUIDS/CSF CSF, Spec Appear Clear (06/28/24 1:49 PM) 06/28 18:49 :00 [facility] BODY FLUIDS/CSF CSF, WBC 0 /mcL 06/28 18:49 :00 Interpretive Data: Variation from manual counting may exceed 50% and approach 15-20% using automated method. Pleocytosis in Adults (increased WBC count) may be graded: Mild: 5-50 WBC/uL Moderate: 51-200 WBC/uL Severe: > 200 WBC/uL CSF may have > 60% neutrophils in high-risk neonates without meningitis [facility] BODY FLUIDS/CSF CSF, RBC 1 /mcL 06/28 18:49 :00 Interpretive Data: Variation from manual counting may exceed 50% and approach 15-20% using automated method. [facility] Cytology Non-ALCOHOL STILL OPERATOR Report Cytology Non-ALCOHOL STILL OPERATOR Report CYTOLOGY MEDICAL REPORT Patient Name: EVELINA DO Specimen Number: [id number] Patient Collection Date: 06/28/2024 Submitting Physician: Wm York M.D. Signout Date: 07/02/2024 Other Physician( s): Aleisha Gordon MD ======== FINAL DIAGNOSIS CEREBROSPI NAL FLUID: Negative for leukemia. See previous materials ([id number], [id number], [id number], [id number], [id number], [id number], [id number], [id number]). Diagnosis Comment Review of the Luo stained cerebrospi nal fluid reveals rare small mature lymphocyte s. ======== Source of Specimen(s ) CEREBROSPI NAL FLUID Clinical History ALL Descriptio n of Specimen RECEIVED 1 ML OF CLEAR FLUID HEMATOLOGY PREPARED 2 CYTOSPINS All slides and preparatio ns are stained and microscopi guilherme examined in the laboratory . All outside slides are received stained and are microscopi guilherme examined in the laboratory . The performanc e characteri stics of the immunohist ochemical stains cited in this report (if any) were determined by the [facility] Department of Pathology. They have not been cleared or approved by the U.S. Food and Drug Administra tion. The FDA has determined that such clearance or approval is not necessary. This test is for clinical purposes. It should not be regarded as investigat ional or for research. This laboratory is certified under the Clinical Laboratory Improvemen t Amendments of 1988 (CLIA) as qualified to perform high complexity clinical laboratory testing. 06/28 14:07 :00 Missing Attachment [id number].PDF can be viewed in source system [facility] GENERAL CHEMISTRY AST-SGOT 28 U/L 06/28 09:22 :00 [facility] GENERAL CHEMISTRY Albumin 3.9 g/dL 3.4 - 5.0 06/28 09:22 :00 [facility] GENERAL CHEMISTRY Alkaline Phosphatase 86 U/L 40 - 129 06/28 09:22 :00 [facility] GENERAL CHEMISTRY ALT-SGPT 29 U/L 10 - 50 06/28 09:22 :00 [facility] GENERAL CHEMISTRY BUN 12 mg/dL 6 - 20 06/28 09:22 :00 [facility] GENERAL CHEMISTRY Calcium 10.5 mg/dL 8.3 - 10.6 06/28 09:22 :00 [facility] GENERAL CHEMISTRY Glucose Lvl 138 mg/dL 70 - 139 06/28 09:22 :00 [facility] GENERAL CHEMISTRY Chloride 104 mmol/L 98 - 107 06/28 09:22 :00 [facility] GENERAL CHEMISTRY Sodium 139 mmol/L 136 - 145 06/28 09:22 :00 [facility] GENERAL CHEMISTRY Potassium 4.1 mmol/L 3.5 - 5.1 06/28 09:22 :00 [facility] GENERAL CHEMISTRY CO2 24 mmol/L 20 - 31 06/28 09:22 :00 [facility] GENERAL CHEMISTRY Anion gap 15 mmol/L 0 - 20 06/28 09:22 :00 [facility] GENERAL CHEMISTRY T Bili 0.43 mg/dL 0.30 - 1.20 06/28 09:22 :00 [facility] CHEMISTRY Total Protein 6.6 g/dL 5.7 - 8.2 06/28 09:22 :00 [facility] CHEMISTRY Creatinine, standardized 0.6 mg/dL 0.7 - 1.2 06/28 09:22 :00 Interpretive Data: Nvosgs-ln-prm e transgender patients on testosterone therapy should have results assessed using the male reference range. Dypp-tt-iueet e transgender patients on hormone-modul ating therapy clinical judgment is advisedfor assessment. [facility] CHEMISTRY Estimated GFR for Adults 140 mL/min/1.7 3m 06/28 09:22 :00 Interpretive Data: Changed to CKD-EPI 2020 on 2020. [facility] CHEMISTRY Estimated GFR for peds Not calculated 06/28 09:22 :00 Interpretive Data: The estimated GFR was calculated using the B lucero Dorado equation (2009) . Reference: Pediatric GFR calculator at [employer] Website. [facility] HEMATOLOGY PROFILES WBC 13.23 x10(9)/L 3.50 - 10.50 06/28 09:22 :00 [facility] HEMATOLOGY PROFILES RBC 3.78 x10(12)/L 4.32 - 5.72 06/28 09:22 :00 [facility] HEMATOLOGY PROFILES HGB 11.6 g/dL 13.5 - 17.5 06/28 09:22 :00 Interpretive Data: Ltnhbn-ot-tcp e transgender patients on testosterone therapy should have results assessed using the male reference range. Qqvl-gz-kppce e transgender patients on hormone-modul ating therapy clinical judgment is advisedfor assessment. [facility] HEMATOLOGY PROFILES HCT 34.9 % 38.8 - 50.0 06/28 09:22 :00 Interpretive Data: Xvtmvw-ak-pbq e transgender patients on testosterone therapy should have results assessed using the male reference range. Tbed-th-tsqbs e transgender patients on hormone-modul ating therapy clinical judgment is advisedfor assessment. [facility] HEMATOLOGY PROFILES MCV 92.3 fL 81.2 - 95.1 06/28 09:22 :00 [facility] HEMATOLOGY PROFILES MCH 30.7 pg 26.0 - 33.0 06/28 09:22 :00 [facility] HEMATOLOGY PROFILES MCHC 33.2 g/dL 32.0 - 36.0 06/28 09:22 :00 [facility] HEMATOLOGY PROFILES RDW CV 17.6 % 11.8 - 15.6 06/28 09:22 :00 [facility] HEMATOLOGY PROFILES RDW SD 60.3 fL 35.1 - 43.9 06/28 09:22 :00 [facility] HEMATOLOGY PROFILES PLT 264 x10(9)/L 150 - 450 06/28 09:22 :00 [facility] HEMATOLOGY PROFILES MPV 10.5 8.0 - 12.0 06/28 09:22 :00 [facility] HEMATOLOGY PROFILES Neuts Manual 91.0 % 06/28 09:22 :00 [facility] HEMATOLOGY PROFILES Lymphocytes Manual 7.0 % 06/28 09:22 :00 [facility] HEMATOLOGY PROFILES Monocytes Manual 2.0 % 06/28 09:22 :00 [facility] HEMATOLOGY PROFILES Absolute Neutrophils Manual 12.04 x10(9)/L 1.70 - 7.00 06/28 09:22 :00 [facility] HEMATOLOGY PROFILES Abs Lymphocytes Manual 0.93 x10(9)/L 0.90 - 2.90 06/28 09:22 :00 [facility] HEMATOLOGY PROFILES Abs Monocytes Manual 0.26 x10(9)/L 0.30 - 0.90 06/28 09:22 :00 [facility] HEMATOLOGY PROFILES Morphology Present *NA* (06/28/24 4:22 AM) 06/28 09:22 :00 [facility] HEMATOLOGY PROFILES Platelet Estimate Adequate *NA* (06/28/24 4:22 AM) 06/28 09:22 :00 [facility] HEMATOLOGY PROFILES Aniso 1+ (10-20%) *NA* (06/28/24 4:22 AM) 06/28 09:22 :00 [facility] HEMATOLOGY PROFILES Elliptocytes (Ovalocytes) 1+ (10-25%) *NA* (06/28/24 4:22 AM) 06/28 09:22 :00 [facility] HEMATOLOGY PROFILES Schistocytes 1+ (Rare-3%) *NA* (06/28/24 4:22 AM) 06/28 09:22 :00 [facility] GENERAL CHEMISTRY AST-SGOT 30 U/L 06/27 20:37 :00 [facility] GENERAL CHEMISTRY Albumin 3.8 g/dL 3.4 - 5.0 06/27 20:37 :00 [facility] GENERAL CHEMISTRY Alkaline Phosphatase 87 U/L 40 - 129 06/27 20:37 :00 [facility] GENERAL CHEMISTRY ALT-SGPT 28 U/L 10 - 50 06/27 20:37 :00 [facility] GENERAL CHEMISTRY T Bili 0.36 mg/dL 0.30 - 1.20 06/27 20:37 :00 [facility] GENERAL CHEMISTRY Total Protein 6.3 g/dL 5.7 - 8.2 06/27 20:37 :00 [facility] GENERAL CHEMISTRY LDH 241 U/L 120 - 246 06/27 20:37 :00 [facility] HEMATOLOGY PROFILES % Nucleated RBCs 0.0 % 06/27 20:37 :00 [facility] HEMATOLOGY PROFILES Absolute Nucleated RBCs 0.0 x10(9)/L 0.0 - 0.0 06/27 20:37 :00 Interpretive Data: Normal values not established in patients less than 18 years old. [facility] HEMATOLOGY PROFILES % Neutrophils 57.2 % 06/27 20:37 :00 [facility] HEMATOLOGY PROFILES % Lymphocytes 15.0 % 06/27 20:37 :00 [facility] HEMATOLOGY PROFILES % Monocytes 24.4 % 06/27 20:37 :00 [facility] HEMATOLOGY PROFILES % Eosinophils 0.5 % 06/27 20:37 :00 [facility] HEMATOLOGY PROFILES % Basophils 1.2 % 06/27 20:37 :00 [facility] [facility] HEMATOLOGY PROFILES % Immature Granulocytes 1.70 % 0.02 - 0.42 06/27 20:37 :00 [facility] HEMATOLOGY PROFILES Absolute Granulocytes 3.31 x10(9)/L 1.70 - 7.00 06/27 20:37 :00 [facility] HEMATOLOGY PROFILES Abs Lymphocytes 0.87 x10(9)/L 0.90 - 2.90 06/27 20:37 :00 [facility] HEMATOLOGY PROFILES Abs Monocytes 1.41 x10(9)/L 0.30 - 0.90 06/27 20:37 :00 [facility] HEMATOLOGY PROFILES Abs Eosinophils 0.03 x10(9)/L 0.05 - 0.50 06/27 20:37 :00 [facility] HEMATOLOGY PROFILES Abs Basophils 0.07 x10(9)/L 0.00 - 0.30 06/27 20:37 :00 [facility] HEMATOLOGY PROFILES Abs Immature Granulocytes 0.10 x10(9)/L 0.00 - 0.03 06/27 20:37 :00 [facility] OTHER HEMATOLOGY TESTS Reticulocyte Count 0.091 0.055 - 0.141 06/27 20:37 :00 [facility] OTHER HEMATOLOGY TESTS Reticulocyte Percent 2.6 % 1.1 - 2.7 06/27 20:37 :00 [facility] OTHER HEMATOLOGY TESTS Immature Reticulocyte Fraction 21.3 % 2.3 - 15.9 06/27 20:37 :00 [facility] OTHER HEMATOLOGY TESTS Reticulocyte Hemoglobin 32.9 pg 29.0 - 35.3 06/27 20:37 :00 [facility] GENERAL CHEMISTRY AST-SGOT 39 U/L 06/04 08:54 :00 [facility] GENERAL CHEMISTRY Albumin 3.6 g/dL 3.4 - 5.0 06/04 08:54 :00 [facility] GENERAL CHEMISTRY Alkaline Phosphatase 156 U/L 40 - 129 06/04 08:54 :00 [facility] GENERAL CHEMISTRY ALT-SGPT 85 U/L 10 - 50 06/04 08:54 :00 [facility] GENERAL CHEMISTRY BUN 14 mg/dL 6 - 20 06/04 08:54 :00 [facility] GENERAL CHEMISTRY Calcium 10.0 mg/dL 8.3 - 10.6 06/04 08:54 :00 [facility] GENERAL CHEMISTRY Glucose Lvl 133 mg/dL 70 - 139 06/04 08:54 :00 [facility] GENERAL CHEMISTRY Chloride 102 mmol/L 98 - 107 06/04 08:54 :00 [facility] GENERAL CHEMISTRY Sodium 136 mmol/L 136 - 145 06/04 08:54 :00 [facility] GENERAL CHEMISTRY Potassium 4.2 mmol/L 3.5 - 5.1 06/04 08:54 :00 [facility] GENERAL CHEMISTRY CO2 25 mmol/L 20 - 31 06/04 08:54 :00 [facility] CHEMISTRY Anion gap 13 mmol/L 0 - 20 06/04 08:54 :00 [facility] CHEMISTRY T Bili 0.83 mg/dL 0.30 - 1.20 06/04 08:54 :00 [facility] CHEMISTRY Total Protein 6.2 g/dL 5.7 - 8.2 06/04 08:54 :00 [facility] CHEMISTRY Creatinine, standardized 0.5 mg/dL 0.7 - 1.2 06/04 08:54 :00 Interpretive Data: Anygcg-mn-tnh e transgender patients on testosterone therapy should have results assessed using the male reference range. Bmax-no-iliks e transgender patients on hormone-modul ating therapy clinical judgment is advisedfor assessment. [facility] GENERAL CHEMISTRY Estimated GFR for Adults 147 mL/min/1.7 3m 06/04 08:54 :00 Interpretive Data: Changed to CKD-EPI 2020 on 2020. [facility] CHEMISTRY Estimated GFR for peds Not calculated 06/04 08:54 :00 Interpretive Data: The estimated GFR was calculated using the B nathanide Dorado equation (2009) . Reference: Pediatric GFR calculator at [employer] Website. [facility] HEMATOLOGY PROFILES % Nucleated RBCs 0.0 % 06/04 08:54 :00 [facility] HEMATOLOGY PROFILES Absolute Nucleated RBCs 0.0 x10(9)/L 0.0 - 0.0 06/04 08:54 :00 Interpretive Data: Normal values not established in patients less than 18 years old. [facility] HEMATOLOGY PROFILES % Neutrophils 91.7 % 06/04 08:54 :00 [facility] HEMATOLOGY PROFILES % Lymphocytes 0.8 % 06/04 08:54 :00 [facility] HEMATOLOGY PROFILES % Monocytes 0.2 % 06/04 08:54 :00 [facility] HEMATOLOGY PROFILES % Eosinophils 0.0 % 06/04 08:54 :00 [facility] HEMATOLOGY PROFILES % Basophils 0.2 % 06/04 08:54 :00 [facility] HEMATOLOGY PROFILES % Immature Granulocytes 7.10 % 0.02 - 0.42 06/04 08:54 :00 [facility] HEMATOLOGY PROFILES Absolute Granulocytes 22.19 x10(9)/L 1.70 - 7.00 06/04 08:54 :00 [facility] HEMATOLOGY PROFILES Abs Lymphocytes 0.20 x10(9)/L 0.90 - 2.90 06/04 08:54 :00 [facility] HEMATOLOGY PROFILES Abs Monocytes 0.06 x10(9)/L 0.30 - 0.90 06/04 08:54 :00 [facility] HEMATOLOGY PROFILES Abs Eosinophils 0.00 x10(9)/L 0.05 - 0.50 06/04 08:54 :00 [facility] HEMATOLOGY PROFILES Abs Basophils 0.04 x10(9)/L 0.00 - 0.30 06/04 08:54 :00 [facility] HEMATOLOGY PROFILES Abs Immature Granulocytes 1.73 x10(9)/L 0.00 - 0.03 06/04 08:54 :00 [facility] HEMATOLOGY PROFILES Morphology Present *NA* (06/04/24 3:54 AM) 06/04 08:54 :00 [facility] HEMATOLOGY PROFILES Platelet Estimate Adequate *NA* (06/04/24 3:54 AM) 06/04 08:54 :00 [facility] HEMATOLOGY PROFILES Aniso 1+ (10-20%) *NA* (06/04/24 3:54 AM) 06/04 08:54 :00 [facility] HEMATOLOGY PROFILES Elliptocytes (Ovalocytes) 1+ (10-25%) *NA* (06/04/24 3:54 AM) 06/04 08:54 :00 [facility] HEMATOLOGY PROFILES Schistocytes 1+ (Rare-3%) *NA* (06/04/24 3:54 AM) 06/04 08:54 :00 [facility] HEMATOLOGY PROFILES WBC 24.65 x10(9)/L 3.50 - 10.50 06/04 08:54 :00 [facility] HEMATOLOGY PROFILES RBC 2.87 x10(12)/L 4.32 - 5.72 06/04 08:54 :00 [facility] HEMATOLOGY PROFILES HGB 8.4 g/dL 13.5 - 17.5 06/04 08:54 :00 Interpretive Data: Mihhsw-pz-fhi e transgender patients on testosterone therapy should have results assessed using the male reference range. Jdbj-if-cmrag e transgender patients on hormone-modul ating therapy clinical judgment is advisedfor assessment. [facility] HEMATOLOGY PROFILES HCT 25.8 % 38.8 - 50.0 06/04 08:54 :00 Interpretive Data: Uqommd-ox-ldy e transgender patients on testosterone therapy should have results assessed using the male reference range. Yrbp-tb-xoqhc e transgender patients on hormone-modul ating therapy clinical judgment is advisedfor assessment. [facility] HEMATOLOGY PROFILES MCV 89.9 fL 81.2 - 95.1 06/04 08:54 :00 [facility] HEMATOLOGY PROFILES MCH 29.3 pg 26.0 - 33.0 06/04 08:54 :00 [facility] HEMATOLOGY PROFILES MCHC 32.6 g/dL 32.0 - 36.0 06/04 08:54 :00 [facility] HEMATOLOGY PROFILES RDW CV 17.2 % 11.8 - 15.6 06/04 08:54 :00 [facility] HEMATOLOGY PROFILES RDW SD 56.5 fL 35.1 - 43.9 06/04 08:54 :00 [facility] HEMATOLOGY PROFILES PLT 107 x10(9)/L 150 - 450 06/04 08:54 :00 [facility] HEMATOLOGY PROFILES MPV 9.4 8.0 - 12.0 06/04 08:54 :00 [facility] BODY FLUIDS/CSF CSF Tube Number Syringe (06/03/24 2:11 PM) 06/03 19:11 :00 [facility] BODY FLUIDS/CSF CSF Xanthochromi c Absent (06/03/24 2:11 PM) 06/03 19:11 :00 [facility] BODY FLUIDS/CSF CSF Cutoff Values See Comment 30 (06/03/24 2:11 PM) 06/03 19:11 :00 Interpretive Data: Cells: Cells Adults Neonates WBC 0-5 WBC/uL 0-30 WBC/uL RBC Absent Absent Neutrophils 0-6% 0-8% Lymphocytes 40-80% 5-35% Monocytes 15-45% 50-90% Eosinophils Rare Rare Note: These Reference ranges or Cutoff Values of normal vs. abnormal are based on the peer reviewed literature and reference texts. We cannot define 95% range for normal patients, as it would require invasive sampling of normal people. [facility] BODY FLUIDS/CSF CSF, Color Colorless (06/03/24 2:11 PM) 06/03 19:11 :00 [facility] BODY FLUIDS/CSF CSF, Spec Appear Clear (06/03/24 2:11 PM) 06/03 19:11 :00 [facility] BODY FLUIDS/CSF CSF, WBC 2 /mcL 06/03 19:11 :00 Interpretive Data: Variation from manual counting may exceed 50% and approach 15-20% using automated method. Pleocytosis in Adults (increased WBC count) may be graded: Mild: 5-50 WBC/uL Moderate: 51-200 WBC/uL Severe: > 200 WBC/uL CSF may have > 60% neutrophils in high-risk neonates without meningitis [facility] BODY FLUIDS/CSF CSF, RBC 224 /mcL 06/03 19:11 :00 Interpretive Data: Variation from manual counting may exceed 50% and approach 15-20% using automated method. [facility] SPECIAL HEMATOLOGY TESTS Specimen Source CSF 06/03 19:11 :00 [facility] SPECIAL HEMATOLOGY TESTS Leukemia/Lym phoma Result See Report 36 (06/03/24 2:11 PM) 06/03 19:11 :00 Interpretive Data: See report under Flow Cytometry within Lab Extended tab. [facility] SPECIAL HEMATOLOGY TESTS Flow Cytometry Compliance Comment See Comment 35 (06/03/24 2:11 PM) 06/03 19:11 :00 Interpretive Data: Analyte Specific Reagent: This test was developed and its performance characteristi cs determined by the Clinical Flow Cytometry Laboratory, [facility], [facility]. It has not been cleared or approved by the U.S. Food and Drug Administratio n. The FDA has determined that such clearance is not necessary. This test is used for clinical purposes, and should not be regarded as investigation al or for research. This laboratory is certified under the Clinical Laboratory Improvement Amendment of 1988 (CLIA-88) as qualified to perform high complexity clinical laboratory testing. [facility] Flow Cytometry Report. Flow Cytometry Report. CLINICAL FLOW CYTOMETRY DEPT OF PATHOLOGY [place] [address] Phone: [phone] Patient: EVELINA DO Collection Date: 06/03/2024 Service: Oncology Location: Oncology Facility: [facility] [id number] Attending Physician: Heike Barrientos MD : 2000 (Age: 24) Other Physician( s): {None Given} Sex: M Race: White Other Number(s): [id number] [phone] Flow Cytometry Immunophen otypic Report FINAL DIAGNOSIS Limited sample, predominan ce of RBCs. Blast population not detected. By this signature, I attest that the above diagnosis is based upon my personal examinatio n of the tissue and slides (and/or other material indicated in the diagnosis) , per policy. Evelina Escalante M.D. Electronic ally Signed Out Procedure Signout Date: 06/04/2024 COMMENTS Contact the signing pathologis t at [phone] if there are questions about this analysis. Clinical History and Diagnosis: Hx. B-ALL Viability 98.1% Immunophen otypic Data Antibodies Performed: KAPPA,BLOOM DA,CD5,CD1 9,CD20,CD1 0,CD34,CD3 ,CD45 FLOW DIFFERENTI AL ANALYSIS: YL/AW PRELIMINAR Y REVIEW: Evelina Escalante MD DATE:06/03 TIME: 1600 Blasts 0% No blasts are present. B-cells 0% No B-cells are present. T-cells 0.1% A small population of CD3+ T-cells is present with no abnormal antigen expression . Others A predominan ce of RBCs is present. Quality Assessment : Specimen received within recommende d guidelines . Expression of residual normal cells functionin g as internal negative and positive controls is evaluate against expected antigenic immunophen otype. Microscopi c Descriptio n: A smear prepared from the submitted specimen and stained with Luo Giemsa stain is examined. Specimen Received CSF Analyte Specific Reagent: This test was developed and its performanc e characteri stics determined by the Clinical Flow Cytometry Laboratory , [facility], [facility]. It has not been cleared or approved by the U.S. Food and Drug Administra tion. The FDA has determined that such clearance is not necessary. This test is used for clinical purposes, and should not be regarded as investigat ional or for research. This laboratory is certified under the Clinical Laboratory Improvemen t Amendment of 1988 (CLIA-88) as qualified to perform high complexity clinical laboratory testing. [place]. [address] 06/03 14:11 :00 Missing Attachment [id number].PDF can be viewed in source system [facility] Cytology Non-ALCOHOL STILL OPERATOR Report Cytology Non-ALCOHOL STILL OPERATOR Report CYTOLOGY MEDICAL REPORT Patient Name: EVELINA DO Specimen Number: [id number] Patient Collection Date: 06/03/2024 Submitting Physician: Heike Barrientos MD Signout Date: 06/05/2024 Other Physician( s): Dario Madsen, DO ======== FINAL DIAGNOSIS CEREBROSPI NAL FLUID: Negative for acute leukemia Please see previous materials ([id number], [id number], [id number], [id number], [id number], [id number], [id number]) Please see comments Diagnosis Comment Microscopi c Descriptio n: Review of Luo stained cytospin preparatio n reveals several red blood cells. No blasts are identified . Please see previous materials ([id number], [id number], [id number], [id number], [id number], [id number], [id number]) ======== Source of Specimen(s ) CEREBROSPI NAL FLUID Clinical History ALL Descriptio n of Specimen RECEIVED 0.5 ML OF CLEAR FLUID HEMATOLOGY PREPARED 2 CYTOSPINS All slides and preparatio ns are stained and microscopi guilherme examined in the laboratory . All outside slides are received stained and are microscopi guilherme examined in the laboratory . The performanc e characteri stics of the immunohist ochemical stains cited in this report (if any) were determined by the [facility] Department of Pathology. They have not been cleared or approved by the U.S. Food and Drug Administra tion. The FDA has determined that such clearance or approval is not necessary. This test is for clinical purposes. It should not be regarded as investigat ional or for research. This laboratory is certified under the Clinical Laboratory Improvemen t Amendments of 1988 (CLIA) as qualified to perform high complexity clinical laboratory testing. 06/03 13:48 :00 Missing Attachment [id number].PDF can be viewed in source system [facility] URINALYSIS CLARITY Clear (06/03/24 6:18 AM) 06/03 11:18 :00 [facility] URINALYSIS COLOR Yellow (06/03/24 6:18 AM) 06/03 11:18 :00 [facility] URINALYSIS SPECIFIC GRAVITY 1.015 1.006 - 1.030 06/03 11:18 :00 [facility] URINALYSIS UA PH 5 (06/03/24 6:18 AM) 4.5 - 8.0 06/03 11:18 :00 [facility] URINALYSIS UA GLUCOSE Negative mg/dL 06/03 11:18 :00 [facility] URINALYSIS UA KETONES Negative mg/dL 06/03 11:18 :00 [facility] URINALYSIS BILIRUBIN Negative (06/03/24 6:18 AM) 06/03 11:18 :00 [facility] URINALYSIS UA UROBILINOGEN Negative Yumi unit/dL 0.2 - 1.0 06/03 11:18 :00 [facility] URINALYSIS UA BLOOD Negative 20 (06/03/24 6:18 AM) 06/03 11:18 :00 Result Comment: A hemoglobin concentration of 0.015-0.062 mg/dL is approximately equivalent to 5 -20 intact red blood cells per microliter. [facility] URINALYSIS UA LEUKOCYTES Negative (06/03/24 6:18 AM) 06/03 11:18 :00 [facility] URINALYSIS UA NITRITE Negative (06/03/24 6:18 AM) 06/03 11:18 :00 [facility] URINALYSIS UA PROTEIN Negative mg/dL 06/03 11:18 :00 [facility] GENERAL CHEMISTRY AST-SGOT 16 U/L 06/03 07:40 :00 [facility] GENERAL CHEMISTRY Albumin 3.5 g/dL 3.4 - 5.0 06/03 07:40 :00 [facility] GENERAL CHEMISTRY Alkaline Phosphatase 138 U/L 40 - 129 06/03 07:40 :00 [facility] GENERAL CHEMISTRY ALT-SGPT 66 U/L 10 - 50 06/03 07:40 :00 [facility] GENERAL CHEMISTRY BUN 19 mg/dL 6 - 20 06/03 07:40 :00 [facility] GENERAL CHEMISTRY Calcium 9.5 mg/dL 8.3 - 10.6 06/03 07:40 :00 [facility] GENERAL CHEMISTRY Glucose Lvl 92 mg/dL 70 - 139 06/03 07:40 :00 [facility] GENERAL CHEMISTRY Chloride 101 mmol/L 98 - 107 06/03 07:40 :00 [facility] GENERAL CHEMISTRY Sodium 133 mmol/L 136 - 145 06/03 07:40 :00 [facility] GENERAL CHEMISTRY Potassium 3.7 mmol/L 3.5 - 5.1 06/03 07:40 :00 [facility] GENERAL CHEMISTRY CO2 25 mmol/L 20 - 31 06/03 07:40 :00 [facility] GENERAL CHEMISTRY Anion gap 11 mmol/L 0 - 20 06/03 07:40 :00 [facility] GENERAL CHEMISTRY T Bili 0.96 mg/dL 0.30 - 1.20 06/03 07:40 :00 [facility] GENERAL CHEMISTRY Total Protein 6.0 g/dL 5.7 - 8.2 06/03 07:40 :00 [facility] GENERAL CHEMISTRY Creatinine, standardized 0.6 mg/dL 0.7 - 1.2 06/03 07:40 :00 Interpretive Data: Aidokz-di-fwe e transgender patients on testosterone therapy should have results assessed using the male reference range. Yxvq-ii-dkdpx e transgender patients on hormone-modul ating therapy clinical judgment is advisedfor assessment. [facility] GENERAL CHEMISTRY Estimated GFR for Adults 137 mL/min/1.7 3m 06/03 07:40 :00 Interpretive Data: Changed to CKD-EPI 2020 on 2020. [facility] GENERAL CHEMISTRY Estimated GFR for peds Not calculated 06/03 07:40 :00 Interpretive Data: The estimated GFR was calculated using the Teddy barker Dorado equation (2009) . Reference: Pediatric GFR calculator at [employer] Website. [facility] GENERAL CHEMISTRY Magnesium 1.56 mg/dL 1.60 - 2.60 06/03 07:40 :00 [facility] HEMATOLOGY PROFILES WBC 33.57 x10(9)/L 3.50 - 10.50 06/03 07:40 :00 [facility] HEMATOLOGY PROFILES RBC 3.02 x10(12)/L 4.32 - 5.72 06/03 07:40 :00 [facility] HEMATOLOGY PROFILES HGB 8.8 g/dL 13.5 - 17.5 06/03 07:40 :00 Interpretive Data: Hbtsfd-vc-ikj e transgender patients on testosterone therapy should have results assessed using the male reference range. Cfnr-fu-cwqfp e transgender patients on hormone-modul ating therapy clinical judgment is advisedfor assessment. [facility] HEMATOLOGY PROFILES HCT 27.4 % 38.8 - 50.0 06/03 07:40 :00 Interpretive Data: Kinvjb-it-top e transgender patients on testosterone therapy should have results assessed using the male reference range. Zfke-wq-ahlqs e transgender patients on hormone-modul ating therapy clinical judgment is advisedfor assessment. [facility] HEMATOLOGY PROFILES MCV 90.7 fL 81.2 - 95.1 06/03 07:40 :00 [facility] HEMATOLOGY PROFILES MCH 29.1 pg 26.0 - 33.0 06/03 07:40 :00 [facility] HEMATOLOGY PROFILES MCHC 32.1 g/dL 32.0 - 36.0 06/03 07:40 :00 [facility] HEMATOLOGY PROFILES RDW CV 17.4 % 11.8 - 15.6 06/03 07:40 :00 [facility] HEMATOLOGY PROFILES RDW SD 57.0 fL 35.1 - 43.9 06/03 07:40 :00 [facility] HEMATOLOGY PROFILES PLT 176 x10(9)/L 150 - 450 06/03 07:40 :00 [facility] HEMATOLOGY PROFILES MPV 10.1 8.0 - 12.0 06/03 07:40 :00 [facility] HEMATOLOGY PROFILES QA Review See Smear Review (06/03/24 2:40 AM) 06/03 07:40 :00 [facility] HEMATOLOGY PROFILES Path Review Smear Pathologis t Review of Smear Interpreta tion: Lauren. Hypersegme nted neutrophil s Interprete d by: Evelina Escalante M.D. 06/03 07:40 :00 [facility] HEMATOLOGY PROFILES Abs NRBC Man 0.3 x10(9)/L 0.0 - 0.0 06/03 07:40 :00 [facility] HEMATOLOGY PROFILES Neuts Manual 96.0 % 06/03 07:40 :00 [facility] HEMATOLOGY PROFILES Lymphocytes Manual 4.0 % 06/03 07:40 :00 [facility] HEMATOLOGY PROFILES NRBC Manual 1.0 /100WBC 06/03 07:40 :00 [facility] HEMATOLOGY PROFILES Absolute Neutrophils Manual 32.23 x10(9)/L 1.70 - 7.00 06/03 07:40 :00 [facility] HEMATOLOGY PROFILES Abs Lymphocytes Manual 1.34 x10(9)/L 0.90 - 2.90 06/03 07:40 :00 [facility] HEMATOLOGY PROFILES Internal Review Yes (06/03/24 2:40 AM) 06/03 07:40 :00 [facility] URINALYSIS CLARITY Clear (06/02/24 6:00 PM) 06/02 23:00 :00 [facility] URINALYSIS COLOR Yellow (06/02/24 6:00 PM) 06/02 23:00 :00 [facility] URINALYSIS SPECIFIC GRAVITY 1.012 1.006 - 1.030 06/02 23:00 :00 [facility] URINALYSIS UA PH 6 (06/02/24 6:00 PM) 4.5 - 8.0 06/02 23:00 :00 [facility] URINALYSIS UA GLUCOSE Negative mg/dL 06/02 23:00 :00 [facility] URINALYSIS UA KETONES Negative mg/dL 06/02 23:00 :00 [facility] URINALYSIS BILIRUBIN Negative (06/02/24 6:00 PM) 06/02 23:00 :00 [facility] URINALYSIS UA UROBILINOGEN Negative Yumi unit/dL 0.2 - 1.0 06/02 23:00 :00 [facility] URINALYSIS UA BLOOD Negative 21 (06/02/24 6:00 PM) 06/02 23:00 :00 Result Comment: A hemoglobin concentration of 0.015-0.062 mg/dL is approximately equivalent to 5 -20 intact red blood cells per microliter. [facility] URINALYSIS UA LEUKOCYTES Negative (06/02/24 6:00 PM) 06/02 23:00 :00 [facility] [place] URINALYSIS UA NITRITE Negative (06/02/24 6:00 PM) 06/02 23:00 :00 [facility] [place] URINALYSIS UA PROTEIN Negative mg/dL 06/02 23:00 :00 [facility] URINALYSIS CLARITY Clear (06/02/24 1:00 PM) 06/02 18:00 :00 [facility] URINALYSIS COLOR Yellow (06/02/24 1:00 PM) 06/02 18:00 :00 [facility] [place] URINALYSIS SPECIFIC GRAVITY 1.016 1.006 - 1.030 06/02 18:00 :00 [facility] [place] URINALYSIS UA PH 5 (06/02/24 1:00 PM) 4.5 - 8.0 06/02 18:00 :00 [facility] [place] URINALYSIS UA GLUCOSE Negative mg/dL 06/02 18:00 :00 [facility] [place] URINALYSIS UA KETONES Negative mg/dL 06/02 18:00 :00 [facility] URINALYSIS BILIRUBIN Negative (06/02/24 1:00 PM) 06/02 18:00 :00 [facility] [place] URINALYSIS UA UROBILINOGEN Negative Yumi unit/dL 0.2 - 1.0 06/02 18:00 :00 [facility] [place] URINALYSIS UA BLOOD Negative 22 (06/02/24 1:00 PM) 06/02 18:00 :00 Result Comment: A hemoglobin concentration of 0.015-0.062 mg/dL is approximately equivalent to 5 -20 intact red blood cells per microliter. [facility] [place] URINALYSIS UA LEUKOCYTES Negative (06/02/24 1:00 PM) 06/02 18:00 :00 [facility] URINALYSIS UA NITRITE Negative (06/02/24 1:00 PM) 06/02 18:00 :00 [facility] [place] URINALYSIS UA PROTEIN Negative mg/dL 06/02 18:00 :00 [facility] THERAPEUTI C DRUGS Methotrexate Lvl <0.04 umol/L 06/02 08:34 :26 [facility] GENERAL CHEMISTRY AST-SGOT 21 U/L 06/02 08:26 :00 [facility] GENERAL CHEMISTRY Albumin 3.7 g/dL 3.4 - 5.0 06/02 08:26 :00 [facility] GENERAL CHEMISTRY Alkaline Phosphatase 129 U/L 40 - 129 06/02 08:26 :00 [facility] GENERAL CHEMISTRY ALT-SGPT 92 U/L 10 - 50 06/02 08:26 :00 [facility] [place] GENERAL CHEMISTRY BUN 17 mg/dL 6 - 20 06/02 08:26 :00 [facility] [place] GENERAL CHEMISTRY Calcium 9.8 mg/dL 8.3 - 10.6 06/02 08:26 :00 [facility] GENERAL CHEMISTRY Glucose Lvl 90 mg/dL 70 - 139 06/02 08:26 :00 [facility] [place] GENERAL CHEMISTRY Chloride 101 mmol/L 98 - 107 06/02 08:26 :00 [facility] [place] GENERAL CHEMISTRY Sodium 134 mmol/L 136 - 145 06/02 08:26 :00 [facility] [place] GENERAL CHEMISTRY Potassium 4.1 mmol/L 3.5 - 5.1 06/02 08:26 :00 [facility] [place] GENERAL CHEMISTRY CO2 24 mmol/L 20 - 31 06/02 08:26 :00 [facility] [place] GENERAL CHEMISTRY Anion gap 13 mmol/L 0 - 20 06/02 08:26 :00 [facility] [place] GENERAL CHEMISTRY T Bili 0.92 mg/dL 0.30 - 1.20 06/02 08:26 :00 [facility] [place] GENERAL CHEMISTRY Total Protein 6.5 g/dL 5.7 - 8.2 06/02 08:26 :00 [facility] [place] GENERAL CHEMISTRY Creatinine, standardized 0.6 mg/dL 0.7 - 1.2 06/02 08:26 :00 Interpretive Data: Zjawrb-lf-cqz e transgender patients on testosterone therapy should have results assessed using the male reference range. Vghw-mz-fbngg e transgender patients on hormone-modul ating therapy clinical judgment is advisedfor assessment. [facility] GENERAL CHEMISTRY Estimated GFR for Adults 138 mL/min/1.7 3m 06/02 08:26 :00 Interpretive Data: Changed to CKD-EPI 2020 on 2020. [facility] [place] GENERAL CHEMISTRY Estimated GFR for peds Not calculated 06/02 08:26 :00 Interpretive Data: The estimated GFR was calculated using the B lucero Dorado equation (2009) . Reference: Pediatric GFR calculator at [employer] Website. [facility] HEMATOLOGY PROFILES % Nucleated RBCs 0.0 % 06/02 08:26 :00 [facility] [place] HEMATOLOGY PROFILES Absolute Nucleated RBCs 0.0 x10(9)/L 0.0 - 0.0 06/02 08:26 :00 Interpretive Data: Normal values not established in patients less than 18 years old. [facility] [place] HEMATOLOGY PROFILES % Neutrophils 94.0 % 06/02 08:26 :00 [facility] [place] HEMATOLOGY PROFILES % Lymphocytes 1.0 % 06/02 08:26 :00 [facility] [place] HEMATOLOGY PROFILES % Monocytes 0.2 % 06/02 08:26 :00 [facility] [place] HEMATOLOGY PROFILES % Eosinophils 0.1 % 06/02 08:26 :00 [facility] [place] HEMATOLOGY PROFILES % Basophils 0.2 % 06/02 08:26 :00 [facility] [place] HEMATOLOGY PROFILES % Immature Granulocytes 4.50 % 0.02 - 0.42 06/02 08:26 :00 [facility] [place] HEMATOLOGY PROFILES Absolute Granulocytes 37.11 x10(9)/L 1.70 - 7.00 06/02 08:26 :00 [facility] [place] HEMATOLOGY PROFILES Abs Lymphocytes 0.41 x10(9)/L 0.90 - 2.90 06/02 08:26 :00 [facility] [place] HEMATOLOGY PROFILES Abs Monocytes 0.08 x10(9)/L 0.30 - 0.90 06/02 08:26 :00 [facility] [place] HEMATOLOGY PROFILES Abs Eosinophils 0.04 x10(9)/L 0.05 - 0.50 06/02 08:26 :00 [facility] [place] HEMATOLOGY PROFILES Abs Basophils 0.09 x10(9)/L 0.00 - 0.30 06/02 08:26 :00 [facility] [place] HEMATOLOGY PROFILES Abs Immature Granulocytes 1.79 x10(9)/L 0.00 - 0.03 06/02 08:26 :00 [facility] [place] HEMATOLOGY PROFILES Morphology Present *NA* (06/02/24 3:26 AM) 06/02 08:26 :00 [facility] [place] HEMATOLOGY PROFILES Platelet Estimate Adequate *NA* (06/02/24 3:26 AM) 06/02 08:26 :00 [facility] [place] HEMATOLOGY PROFILES Aniso 1+ (10-20%) *NA* (06/02/24 3:26 AM) 06/02 08:26 :00 [facility] [place] HEMATOLOGY PROFILES WBC 39.21 x10(9)/L 3.50 - 10.50 06/02 08:26 :00 [facility] [place] HEMATOLOGY PROFILES RBC 3.26 x10(12)/L 4.32 - 5.72 06/02 08:26 :00 [facility] [place] HEMATOLOGY PROFILES HGB 10.0 g/dL 13.5 - 17.5 06/02 08:26 :00 Interpretive Data: Pftjfg-pu-dgt e transgender patients on testosterone therapy should have results assessed using the male reference range. Sgab-yz-lenhu e transgender patients on hormone-modul ating therapy clinical judgment is advisedfor assessment. [facility] HEMATOLOGY PROFILES HCT 30.0 % 38.8 - 50.0 06/02 08:26 :00 Interpretive Data: Gwksnr-lh-qoj e transgender patients on testosterone therapy should have results assessed using the male reference range. Kxao-yw-agvbe e transgender patients on hormone-modul ating therapy clinical judgment is advisedfor assessment. [facility] [place] HEMATOLOGY PROFILES MCV 92.0 fL 81.2 - 95.1 06/02 08:26 :00 [facility] [place] HEMATOLOGY PROFILES MCH 30.7 pg 26.0 - 33.0 06/02 08:26 :00 [facility] [place] HEMATOLOGY PROFILES MCHC 33.3 g/dL 32.0 - 36.0 06/02 08:26 :00 [facility] [place] HEMATOLOGY PROFILES RDW CV 17.6 % 11.8 - 15.6 06/02 08:26 :00 [facility] [place] HEMATOLOGY PROFILES RDW SD 57.7 fL 35.1 - 43.9 06/02 08:26 :00 [facility] [place] HEMATOLOGY PROFILES PLT 231 x10(9)/L 150 - 450 06/02 08:26 :00 [facility] [place] HEMATOLOGY PROFILES MPV 9.9 8.0 - 12.0 06/02 08:26 :00 [facility] [place] THERAPEUTI C DRUGS Methotrexate Lvl <0.04 umol/L 06/02 01:32 :00 [facility] [place] URINALYSIS CLARITY Clear (06/01/24 5:17 PM) 06/01 22:17 :00 [facility] [place] URINALYSIS COLOR Straw (06/01/24 5:17 PM) 06/01 22:17 :00 [facility] [place] URINALYSIS SPECIFIC GRAVITY 1.011 1.006 - 1.030 06/01 22:17 :00 [facility] [place] URINALYSIS UA PH 6 (06/01/24 5:17 PM) 4.5 - 8.0 06/01 22:17 :00 [facility] [place] URINALYSIS UA GLUCOSE Negative mg/dL 06/01 22:17 :00 [facility] [place] URINALYSIS UA KETONES Negative mg/dL 06/01 22:17 :00 [facility] [place] URINALYSIS BILIRUBIN Negative (06/01/24 5:17 PM) 06/01 22:17 :00 [facility] [place] URINALYSIS UA UROBILINOGEN Negative Yumi unit/dL 0.2 - 1.0 06/01 22:17 :00 [facility] [place] URINALYSIS UA BLOOD Negative 23 (06/01/24 5:17 PM) 06/01 22:17 :00 Result Comment: A hemoglobin concentration of 0.015-0.062 mg/dL is approximately equivalent to 5 -20 intact red blood cells per microliter. [facility] [place] URINALYSIS UA LEUKOCYTES Negative (06/01/24 5:17 PM) 06/01 22:17 :00 [facility] [place] URINALYSIS UA NITRITE Negative (06/01/24 5:17 PM) 06/01 22:17 :00 [facility] [place] URINALYSIS UA PROTEIN Negative mg/dL 06/01 22:17 :00 [facility] GENERAL CHEMISTRY AST-SGOT 24 U/L 06/01 07:49 :00 [facility] [place] GENERAL CHEMISTRY Albumin 3.6 g/dL 3.4 - 5.0 06/01 07:49 :00 [facility] [place] GENERAL CHEMISTRY Alkaline Phosphatase 120 U/L 40 - 129 06/01 07:49 :00 [facility] CHEMISTRY ALT-SGPT 117 U/L 10 - 50 06/01 07:49 :00 [facility] GENERAL CHEMISTRY BUN 15 mg/dL 6 - 20 06/01 07:49 :00 [facility] [place] GENERAL CHEMISTRY Calcium 9.6 mg/dL 8.3 - 10.6 06/01 07:49 :00 [facility] [place] GENERAL CHEMISTRY Glucose Lvl 92 mg/dL 70 - 139 06/01 07:49 :00 [facility] [place] GENERAL CHEMISTRY Chloride 101 mmol/L 98 - 107 06/01 07:49 :00 [facility] [place] GENERAL CHEMISTRY Sodium 136 mmol/L 136 - 145 06/01 07:49 :00 [facility] [place] GENERAL CHEMISTRY Potassium 4.0 mmol/L 3.5 - 5.1 06/01 07:49 :00 [facility] [place] GENERAL CHEMISTRY CO2 27 mmol/L 20 - 31 06/01 07:49 :00 [facility] [place] GENERAL CHEMISTRY Anion gap 12 mmol/L 0 - 20 06/01 07:49 :00 [facility] [place] GENERAL CHEMISTRY T Bili 0.85 mg/dL 0.30 - 1.20 06/01 07:49 :00 [facility] [place] GENERAL CHEMISTRY Total Protein 6.5 g/dL 5.7 - 8.2 06/01 07:49 :00 [facility] [place] GENERAL CHEMISTRY Creatinine, standardized 0.5 mg/dL 0.7 - 1.2 06/01 07:49 :00 Interpretive Data: Quoine-jf-shz e transgender patients on testosterone therapy should have results assessed using the male reference range. Ivrh-py-oyxgv e transgender patients on hormone-modul ating therapy clinical judgment is advisedfor assessment. [facility] GENERAL CHEMISTRY Estimated GFR for Adults 142 mL/min/1.7 3m 06/01 07:49 :00 Interpretive Data: Changed to CKD-EPI 2020 on 2020. [facility] GENERAL CHEMISTRY Estimated GFR for peds Not calculated 06/01 07:49 :00 Interpretive Data: The estimated GFR was calculated using the B lucero Dorado equation (2009) . Reference: Pediatric GFR calculator at [employer] Website. [facility] HEMATOLOGY PROFILES WBC 8.52 x10(9)/L 3.50 - 10.50 06/01 07:49 :00 [facility] [place] HEMATOLOGY PROFILES RBC 3.19 x10(12)/L 4.32 - 5.72 06/01 07:49 :00 [facility] [place] HEMATOLOGY PROFILES HGB 9.3 g/dL 13.5 - 17.5 06/01 07:49 :00 Interpretive Data: Kzhtfj-dh-vnk e transgender patients on testosterone therapy should have results assessed using the male reference range. Kovw-yk-vpwgf e transgender patients on hormone-modul ating therapy clinical judgment is advisedfor assessment. [facility] [place] HEMATOLOGY PROFILES HCT 29.3 % 38.8 - 50.0 06/01 07:49 :00 Interpretive Data: Iptcdp-gh-ifa e transgender patients on testosterone therapy should have results assessed using the male reference range. Jagp-mq-sdrpj e transgender patients on hormone-modul ating therapy clinical judgment is advisedfor assessment. [facility] [place] HEMATOLOGY PROFILES MCV 91.8 fL 81.2 - 95.1 06/01 07:49 :00 [facility] [place] HEMATOLOGY PROFILES MCH 29.2 pg 26.0 - 33.0 06/01 07:49 :00 [facility] [place] HEMATOLOGY PROFILES MCHC 31.7 g/dL 32.0 - 36.0 06/01 07:49 :00 [facility] [place] HEMATOLOGY PROFILES RDW CV 17.7 % 11.8 - 15.6 06/01 07:49 :00 [facility] [place] HEMATOLOGY PROFILES RDW SD 58.9 fL 35.1 - 43.9 06/01 07:49 :00 [facility] [place] HEMATOLOGY PROFILES PLT 259 x10(9)/L 150 - 450 06/01 07:49 :00 [facility] [place] HEMATOLOGY PROFILES MPV 9.3 8.0 - 12.0 06/01 07:49 :00 [facility] [place] HEMATOLOGY PROFILES % Nucleated RBCs 0.0 % 06/01 07:49 :00 [facility] [place] HEMATOLOGY PROFILES Absolute Nucleated RBCs 0.0 x10(9)/L 0.0 - 0.0 06/01 07:49 :00 Interpretive Data: Normal values not established in patients less than 18 years old. [facility] [place] HEMATOLOGY PROFILES % Neutrophils 96.5 % 06/01 07:49 :00 [facility] [place] HEMATOLOGY PROFILES % Lymphocytes 2.2 % 06/01 07:49 :00 [facility] [place] HEMATOLOGY PROFILES % Monocytes 0.7 % 06/01 07:49 :00 [facility] [place] HEMATOLOGY PROFILES % Eosinophils 0.1 % 06/01 07:49 :00 [facility] [place] HEMATOLOGY PROFILES % Basophils 0.0 % 06/01 07:49 :00 [facility] [place] HEMATOLOGY PROFILES % Immature Granulocytes 0.50 % 0.02 - 0.42 06/01 07:49 :00 [facility] [place] HEMATOLOGY PROFILES Absolute Granulocytes 8.27 x10(9)/L 1.70 - 7.00 06/01 07:49 :00 [facility] [place] HEMATOLOGY PROFILES Abs Lymphocytes 0.19 x10(9)/L 0.90 - 2.90 06/01 07:49 :00 [facility] [place] HEMATOLOGY PROFILES Abs Monocytes 0.06 x10(9)/L 0.30 - 0.90 06/01 07:49 :00 [facility] [place] HEMATOLOGY PROFILES Abs Eosinophils 0.01 x10(9)/L 0.05 - 0.50 06/01 07:49 :00 [facility] [place] HEMATOLOGY PROFILES Abs Basophils 0.00 x10(9)/L 0.00 - 0.30 06/01 07:49 :00 [facility] [place] HEMATOLOGY PROFILES Abs Immature Granulocytes 0.04 x10(9)/L 0.00 - 0.03 06/01 07:49 :00 [facility] [place] HEMATOLOGY PROFILES Morphology Present *NA* (06/01/24 2:49 AM) 06/01 07:49 :00 [facility] [place] HEMATOLOGY PROFILES Platelet Estimate Adequate *NA* (06/01/24 2:49 AM) 06/01 07:49 :00 [facility] [place] HEMATOLOGY PROFILES Aniso 1+ (10-20%) *NA* (06/01/24 2:49 AM) 06/01 07:49 :00 [facility] XR Spine Lumbosacra l XR Spine Lumbosacral XR General Diagnostic Accession # Exam Date/Time Procedure Ordering Provider [id number] 05/31/2024 19:41 CDT XR Spine Lumbosacra l Dario Madsen DO Reason For Exam (XR Spine Lumbosacra l) Low back pain Report EXAMINATIO N: XR Spine Lumbosacra l INDICATION : Low back pain VIEWS: 2 COMPARISON : CT abdomen/pe lvis 04/03/2024 FINDINGS: No acute fracture. Vertebral body heights are maintained . Normal alignment and interverte bral disc spaces. Normal bilateral SI joints. Nonobstruc tive bowel gas pattern within the visualized abdomen. IMPRESSION : Negative radiograph ic exam of the lumbosacra l spine. I have personally reviewed the images and attest to the contents of this report. * * *Final Report* * * Electronic ally Signed by: Ruben BRISCOE, Nicko Perez Signed on: 05/31/24 19:46 05/31 19:33 :19 [facility] GENERAL CHEMISTRY Magnesium 1.54 mg/dL 1.60 - 2.60 05/31 08:55 :00 [facility] HEMATOLOGY PROFILES % Nucleated RBCs 0.0 % 05/31 08:55 :00 [facility] HEMATOLOGY PROFILES Absolute Nucleated RBCs 0.0 x10(9)/L 0.0 - 0.0 05/31 08:55 :00 Interpretive Data: Normal values not established in patients less than 18 years old. [facility] HEMATOLOGY PROFILES % Neutrophils 96.2 % 05/31 08:55 :00 [facility] HEMATOLOGY PROFILES % Lymphocytes 1.3 % 05/31 08:55 :00 [facility] HEMATOLOGY PROFILES % Monocytes 1.9 % 05/31 08:55 :00 [facility] HEMATOLOGY PROFILES % Eosinophils 0.0 % 05/31 08:55 :00 [facility] [place] HEMATOLOGY PROFILES % Basophils 0.1 % 05/31 08:55 :00 [facility] [place] HEMATOLOGY PROFILES % Immature Granulocytes 0.50 % 0.02 - 0.42 05/31 08:55 :00 [facility] HEMATOLOGY PROFILES Absolute Granulocytes 10.32 x10(9)/L 1.70 - 7.00 05/31 08:55 :00 [facility] HEMATOLOGY PROFILES Abs Lymphocytes 0.14 x10(9)/L 0.90 - 2.90 05/31 08:55 :00 [facility] HEMATOLOGY PROFILES Abs Monocytes 0.20 x10(9)/L 0.30 - 0.90 05/31 08:55 :00 [facility] HEMATOLOGY PROFILES Abs Eosinophils 0.00 x10(9)/L 0.05 - 0.50 05/31 08:55 :00 [facility] [place] HEMATOLOGY PROFILES Abs Basophils 0.01 x10(9)/L 0.00 - 0.30 05/31 08:55 :00 [facility] HEMATOLOGY PROFILES Abs Immature Granulocytes 0.05 x10(9)/L 0.00 - 0.03 05/31 08:55 :00 [facility] HEMATOLOGY PROFILES Morphology Previously Reviewed, results remain consistent *NA* (05/31/24 3:55 AM) 05/31 08:55 :00 [facility] THERAPEUTI C DRUGS Methotrexate Lvl <0.04 umol/L 05/31 01:25 :00 [facility] THERAPEUTI C DRUGS Methotrexate Lvl 0.13 umol/L 05/30 06:43 :00 [facility] GENERAL CHEMISTRY Magnesium 1.82 mg/dL 1.60 - 2.60 05/29 07:44 :00 [facility] URINALYSIS WBC None Seen /hpf 0 - 3 05/28 23:25 :00 [facility] URINALYSIS RBC None Seen /hpf 0 - 2 05/28 23:25 :00 [facility] URINALYSIS UA Epithelial Cells None Seen /lpf 05/28 23:25 :00 [facility] URINALYSIS UA Mucous Present *ABNORMAL* (05/28/24 6:25 PM) 05/28 23:25 :00 [facility] GENERAL CHEMISTRY Magnesium 1.30 mg/dL 1.60 - 2.60 05/28 10:10 :00 [facility] HEMATOLOGY PROFILES Absolute Neutrophils Manual 10.30 x10(9)/L 1.70 - 7.00 05/28 10:10 :00 [facility] HEMATOLOGY PROFILES Abs Lymphocytes Manual 1.51 x10(9)/L 0.90 - 2.90 05/28 10:10 :00 [facility] HEMATOLOGY PROFILES Abs Monocytes Manual 0.21 x10(9)/L 0.30 - 0.90 05/28 10:10 :00 [facility] HEMATOLOGY PROFILES Abs Basophils Manual 0.33 x10(9)/L 0.00 - 0.30 05/28 10:10 :00 [facility] HEMATOLOGY PROFILES Abs Metas 0.21 x10(9)/L 0.00 - 0.11 05/28 10:10 :00 [facility] HEMATOLOGY PROFILES Abs Myelos 0.54 x10(9)/L 0.00 - 0.11 05/28 10:10 :00 [facility] HEMATOLOGY PROFILES Neuts Manual 78.7 % 05/28 10:10 :00 [facility] HEMATOLOGY PROFILES Lymphocytes Manual 11.5 % 05/28 10:10 :00 [facility] HEMATOLOGY PROFILES Monocytes Manual 1.6 % 05/28 10:10 :00 [facility] HEMATOLOGY PROFILES Basophils Manual 2.5 % 05/28 10:10 :00 [facility] HEMATOLOGY PROFILES Metas hp 1.6 % 05/28 10:10 :00 [facility] HEMATOLOGY PROFILES Myelos hp 4.1 % 05/28 10:10 :00 [facility] HEMATOLOGY PROFILES Platelet Estimate Adequate *NA* (05/28/24 5:10 AM) 05/28 10:10 :00 [facility] HEMATOLOGY PROFILES Aniso 1+ (10-20%) *NA* (05/28/24 5:10 AM) 05/28 10:10 :00 [facility] HEMATOLOGY PROFILES Schistocytes 1+ (Rare-3%) *NA* (05/28/24 5:10 AM) 05/28 10:10 :00 [facility] HEMATOLOGY PROFILES Abs NRBC Man 0.1 x10(9)/L 0.0 - 0.0 05/27 15:36 :00 [facility] HEMATOLOGY PROFILES Abs Reactive Lymphs Manual 00.23 05/27 15:36 :00 [facility] HEMATOLOGY PROFILES Absolute Neutrophils Manual 7.84 x10(9)/L 1.70 - 7.00 05/27 15:36 :00 [facility] HEMATOLOGY PROFILES Abs Lymphocytes Manual 2.57 x10(9)/L 0.90 - 2.90 05/27 15:36 :00 [facility] HEMATOLOGY PROFILES Abs Monocytes Manual 1.35 x10(9)/L 0.30 - 0.90 05/27 15:36 :00 [facility] HEMATOLOGY PROFILES Abs Eosinophils Manual 0.12 x10(9)/L 0.05 - 0.50 05/27 15:36 :00 [facility] HEMATOLOGY PROFILES Abs Basophils Manual 0.11 x10(9)/L 0.00 - 0.30 05/27 15:36 :00 [facility] HEMATOLOGY PROFILES Abs Metas 0.11 x10(9)/L 0.00 - 0.11 05/27 15:36 :00 [facility] HEMATOLOGY PROFILES Abs Myelos 1.01 x10(9)/L 0.00 - 0.11 05/27 15:36 :00 [facility] HEMATOLOGY PROFILES Neuts Manual 58.8 % 05/27 15:36 :00 [facility] HEMATOLOGY PROFILES Lymphocytes Manual 19.3 % 05/27 15:36 :00 [facility] HEMATOLOGY PROFILES Monocytes Manual 10.1 % 05/27 15:36 :00 [facility] HEMATOLOGY PROFILES Eosinophils Manual 0.9 % 05/27 15:36 :00 [facility] HEMATOLOGY PROFILES Basophils Manual 0.8 % 05/27 15:36 :00 [facility] HEMATOLOGY PROFILES Metas hp 0.8 % 05/27 15:36 :00 [facility] HEMATOLOGY PROFILES Myelos hp 7.6 % 05/27 15:36 :00 [facility] HEMATOLOGY PROFILES NRBC Manual 0.8 /100WBC 05/27 15:36 :00 [facility] HEMATOLOGY PROFILES Reactive Lymphs Manual 1.7 % 05/27 15:36 :00 [facility] HEMATOLOGY PROFILES Elliptocytes (Ovalocytes) 1+ (10-25%) *NA* (05/27/24 10:36 AM) 05/27 15:36 :00 [facility] HEMATOLOGY PROFILES Poly 1+ (2-10%) *NA* (05/27/24 10:36 AM) 05/27 15:36 :00 [facility] HEMATOLOGY PROFILES Schistocytes 1+ (Rare-3%) *NA* (05/27/24 10:36 AM) 05/27 15:36 :00 [facility] HEMATOLOGY PROFILES Teardrop 1+ (3-6%) *NA* (05/27/24 10:36 AM) 05/27 15:36 :00 [facility] HEMATOLOGY PROFILES Platelet Clumps Present *NA* (05/27/24 10:36 AM) 05/27 15:36 :00 [facility] HEMATOLOGY PROFILES Absolute Neutrophils Manual 7.07 x10(9)/L 1.70 - 7.00 05/26 08:37 :00 [facility] HEMATOLOGY PROFILES Abs Lymphocytes Manual 1.94 x10(9)/L 0.90 - 2.90 05/26 08:37 :00 [facility] HEMATOLOGY PROFILES Abs Monocytes Manual 1.26 x10(9)/L 0.30 - 0.90 05/26 08:37 :00 [facility] HEMATOLOGY PROFILES Abs Basophils Manual 0.19 x10(9)/L 0.00 - 0.30 05/26 08:37 :00 [facility] HEMATOLOGY PROFILES Abs Myelos 0.78 x10(9)/L 0.00 - 0.11 05/26 08:37 :00 [facility] HEMATOLOGY PROFILES Neuts Manual 62.9 % 05/26 08:37 :00 [facility] HEMATOLOGY PROFILES Lymphocytes Manual 17.3 % 05/26 08:37 :00 [facility] HEMATOLOGY PROFILES Monocytes Manual 11.2 % 05/26 08:37 :00 [facility] HEMATOLOGY PROFILES Basophils Manual 1.7 % 05/26 08:37 :00 [facility] HEMATOLOGY PROFILES Myelos hp 6.9 % 05/26 08:37 :00 [facility] HEMATOLOGY PROFILES Poly 1+ (2-10%) *NA* (05/26/24 3:37 AM) 05/26 08:37 :00 [facility] US Abdomen (Non Vascular) US Abdomen (Non Vascular) Ultrasound Accession # Exam Date/Time Procedure Ordering Provider [id number] 05/25/2024 09:40 CDT US Abdomen (Non Cale DO, Dario Brent [facility]) Reason For Exam (US Abdomen (Non Vascular)) elevated LFTs Report EXAMINATIO N: US Abdomen (Non Vascular) INDICATION : elevated LFTs COMPARISON : Ultrasound abdomen 04/14/2024 TECHNIQUE: Grayscale, color and Limited spectral Doppler evaluation of the right upper quadrant was performed. FINDINGS: LIVER: Size (length): 20.6 cm Echogenici ty: Mild increased echogenici ty. Parenchyma : Normal echotextur e Intrahepat ic Bile Ducts: Nondilated Hepatic Veins: Patent Portal Vein: Patent with hepatopeta l flow PSV: 40 cm/s GALLBLADDE R: Wall Thickness: 2.7 mm Morphology : Unremarkab le. Lumen: Multiple mobile shadowing stones. Sonographi c Martinez's Sign: Negative EXTRAHEPAT IC BILE DUCTS: Common Bile Duct Diameter: 4.3 mm RIGHT KIDNEY: Length: 11.0 cm Width: 5.5 cm Height: 5.6 cm Morphology /parenchym a: Cortical medullary differenti ation is unremarkab le. No mass, cyst, or stones. Collecting System: Nondilated . PANCREAS: Visualized portions of the pancreas are unremarkab le. OTHER: Fluid: No free fluid. IMPRESSION : 1. Cholelithi asis without sonographi c findings to suggest acute cholecysti tis. 2. Mild hepatomega ly with diffuse mild hepatic steatosis. I have personally reviewed the images and attest to the contents of Ultrasound Report this report. * * *Final Report* * * Electronic ally Signed by: Moises Ordonez MD Signed on: 05/25/24 10:43 05/25 09:16 :42 [facility] IMMUNOLOGY /VIROLOGY Hep B Surface Ag Nonreactiv e 13 *NA* (05/25/24 3:55 AM) 05/25 08:55 :00 Interpretive Data: Nonreactive: Nonreactive (negative) Reactive: Reactive (positive) Equivocal: N/A. [facility] IMMUNOLOGY /VIROLOGY Hep C Kate by EIA Nonreactiv e 14 *NA* (9/7/24 3:55 AM) 05/25 08:55 :00 Interpretive Data: Nonreactive: Nonreactive (negative) Reactive: Reactive (positive) Equivocal: Unable to classify reactivity, please reorder in two weeks if clinically applicable. [facility] IMMUNOLOGY /VIROLOGY Hep A Kate, IgM Nonreactiv e 12 *NA* (05/25/24 3:55 AM) 05/25 08:55 :00 Interpretive Data: Nonreactive: Nonreactive (negative) Reactive: Reactive (positive) Equivocal: Unable to classify reactivity, please reorder in two weeks if clinically applicable. [facility] IMMUNOLOGY /VIROLOGY Hep B Core Ab, IgM Nonreactiv e 28 *NA* (05/25/24 3:55 AM) 05/25 08:55 :00 Interpretive Data: Nonreactive: Nonreactive (negative) Reactive: Reactive (positive) Equivocal: Unable to classify reactivity, please reorder in two weeks if clinically applicable. [facility] REFERENCE LABS EBV VCA IgM-[place] Negative 05/24 22:45 :00 [facility] REFERENCE LABS EBV VCA IgG-[place] Positive 05/24 22:45 :00 [facility] REFERENCE LABS EBV Nuclear Ag-[place] Positive 05/24 22:45 :00 [facility] REFERENCE LABS EBV Ab Interp-[place] See Comment 05/24 22:45 :00 Result Comment: RESULT: Results suggest past infection. ------ADDITIO NAL INFORMATION-- ---- In most populations, at least 90% of the adult population will have been infected with EBV sometime in the past and therefore, will be positive for anti-VCA/IgG and anti- EBNA. Antibodies to EBNA develop 6-8 weeks after primary infection and remain present for life. Presence of VCA/ IgM antibodies indicates recent primary infection with EBV. Test Performed by: [facility] - [address] [address] [employer]fter Geophysical: Trista West Ph.D.; CLIA# [id number] [facility] LABS IgM Cytomegalovi lora Ab-[place] Negative 05/24 22:45 :00 [facility] REFERENCE LABS IgG Cytomegalovi lora Ab-[place] Negative 05/24 22:45 :00 Result Comment: Test Performed by: [facility] [place] [address] [employer]: Trista West Ph.D.; CLIA# [id number] [facility] LABS Toxoplasma Ab, IgM, S Negative 05/24 22:45 :00 Result Comment: No IgM antibodies to T. gondii detected. Results may be negative in patients with recent infection or who are significantly immunosuppres sed. [facility] REFERENCE LABS IgG Toxoplasma Ab Negative 05/24 22:45 :00 [facility] REFERENCE LABS IgG Toxoplasma Value <3 [iU]/mL 05/24 22:45 :00 Result Comment: ------REFEREN CE VALUE-------- ----- <=9 IU/mL (Negative) 10-11 IU/mL (Equivocal) >=12 IU/mL (Positive) Test Performed by: [place] [address] [employer]: Trista West Ph.D.; CLIA# [id number] [facility] HEMATOLOGY PROFILES Abs Reactive Lymphs Manual 00.23 05/24 08:31 :00 [facility] HEMATOLOGY PROFILES Abs Monocytes Manual 1.58 x10(9)/L 0.30 - 0.90 05/24 08:31 :00 [facility] HEMATOLOGY PROFILES Abs Myelos 0.07 x10(9)/L 0.00 - 0.11 05/24 08:31 :00 [facility] HEMATOLOGY PROFILES Monocytes Manual 17.0 % 05/24 08:31 :00 [facility] HEMATOLOGY PROFILES Myelos hp 0.8 % 05/24 08:31 :00 [facility] HEMATOLOGY PROFILES Reactive Lymphs Manual 2.5 % 05/24 08:31 :00 [facility] HEMATOLOGY PROFILES Macro 1+ (25-50%) *NA* (05/24/24 3:31 AM) 05/24 08:31 :00 [facility] HEMATOLOGY PROFILES Poly 1+ (2-10%) *NA* (05/24/24 3:31 AM) 05/24 08:31 :00 [facility] HEMATOLOGY PROFILES Schistocytes 1+ (Rare-3%) *NA* (05/24/24 3:31 AM) 05/24 08:31 :00 [facility] HEMATOLOGY PROFILES Toxic granulation Present *NA* (05/24/24 3:31 AM) 05/24 08:31 :00 [facility] CT Head or Brain CT Head or Brain CT Scan/CT Angio Accession # Exam Date/Time Procedure Ordering Provider [id number] 05/24/2024 03:[address] Head or Brain Anna Munoz MD Reason For Exam (CT Head or Brain) s/p [place] placement Report EXAMINATIO N: CT Head or Brain without IV contrast INDICATION : s/p [place] placement COMPARISON : CT head dated 05/22/2024. FINDINGS: CT HEAD: Interval placement of right frontal approach catheter is noted with tip extending through the right lateral ventricle terminatin g in the third ventricle. INFARCT: No vascular territory infarct. HEMORRHAGE : No parenchyma l or extra-axia l hemorrhage . MASS EFFECT: None. PARENCHYMA : No intraparen chymal mass. VOLUME LOSS: Mild to moderate involution al changes are noted in the brain considerin g patient's young age. VENTRICLES : No ventriculo megaly. VESSELS: Unremarkab le. BONES: No acute fracture. SINUSES: Clear. MASTOIDS: Clear. ORBITS: Normal. SOFT TISSUES: Normal. Periapical lucencies involving the bilateral maxillary molars suggestive of dental disease. IMPRESSION : No acute intracrani al findings. Interval placement of right frontal approach catheter with tip terminatin g within the third ventricle. I have personally reviewed the images and attest to the contents of this report. * * *Final Report* * * Electronic ally Signed by: Susan Miller MD Signed on: 05/24/24 08:44 05/24 03:08 :43 [facility] COAGULATIO N PT 11.4 s 9.4 - 12.5 05/23 14:28 :00 [facility] COAGULATIO N INR 1.0 0.9 - 1.2 05/23 14:28 :00 Interpretive Data: Suggested therapeutic INR range for stable oral anticoagulati on: Optimal Therapeutic INR Range 2.0-3.0 Therapeutic Range for High-Risk Groups (antiphoshpol ipid syndrome with previous thrombosis) 2.0-3.0 DVT of the leg 2.0-3.0 PE 2.0-3.0 Patients with AF and Stable Coronary Artery Disease 2.0-3.0 Bioprosthetic valve in the mitral position 2.0-3.0 Mechanical mitral valve or additional risk factors 2.5-3.5 Prevention of Recurrent VTE in Women prophylaxis for 6 weeks with prophylactic- or intermediate- dose LMWH or warfarin targeted at INR 2.0 or 3.0 rather than no prophylaxis For additional guidance see: Abhi GH, Nannette EA, Jatinder M, Halle DD, Dajuan n darby HJ; [employer] Antithromboti c Therapy and Prevention of Thrombosis Panel. Executive summary: Antithromboti c Therapy and Prevention of Thrombosis, 9th Ed: [employer] Evidence-Base d Clinical Practice Guidelines. Chest. 2012 Oct; 141(2 Suppl):7S-47S . doi: 10.1378/chest .1412S3 [facility] HEMATOLOGY PROFILES Eosinophils Manual 0.9 % 05/23 14:28 :00 [facility] HEMATOLOGY PROFILES Basophils Manual 4.2 % 05/23 14:28 :00 [facility] HEMATOLOGY PROFILES NRBC Manual 1.7 /100WBC 05/23 14:28 :00 [facility] HEMATOLOGY PROFILES Reactive Lymphs Manual 0.9 % 05/23 14:28 :00 [facility] HEMATOLOGY PROFILES Elliptocytes (Ovalocytes) 1+ (10-25%) *NA* (05/23/24 9:28 AM) 05/23 14:28 :00 [facility] HEMATOLOGY PROFILES Poly 1+ (2-10%) *NA* (05/23/24 9:28 AM) 05/23 14:28 :00 [facility] HEMATOLOGY PROFILES Stomatocytes 1+ (10-25%) *NA* (05/23/24 9:28 AM) 05/23 14:28 :00 [facility] HEMATOLOGY PROFILES Teardrop 1+ (3-6%) *NA* (05/23/24 9:28 AM) 05/23 14:28 :00 [facility] HEMATOLOGY PROFILES Abs Reactive Lymphs Manual 00.04 05/23 14:28 :00 [facility] HEMATOLOGY PROFILES Abs Eosinophils Manual 0.04 x10(9)/L 0.05 - 0.50 05/23 14:28 :00 [facility] HEMATOLOGY PROFILES Abs Basophils Manual 0.21 x10(9)/L 0.00 - 0.30 05/23 14:28 :00 [facility] HEMATOLOGY PROFILES Abs NRBC Man 0.1 x10(9)/L 0.0 - 0.0 05/23 14:28 :00 [facility] COAGULATIO N PTT 26.6 s 25.1 - 36.5 05/22 18:02 :00 Interpretive Data: Recommendatio ns for anticoagulant therapeutic ranges: Unfractionate d Heparin: Please order the anti-Xa assay. Target ranges and medication management recommendatio ns are based on the anti-Xa assay and posted in [employer] (see Medication Management-Ad ult Heparin Nomogram). Argatroban: Target ranges and medication management recommendatio ns are posted in [employer] (see Medication Management- Adult Argatroban Nomogram). Low molecular weight heparin or danaparoid monitoring: Please order the anti-Xa assay. Please contact the Pharmacy or the Clinical Pathology Service for additional questions. [facility] COAGULATIO N PT 10.5 s 9.4 - 12.5 05/22 18:02 :00 [facility] COAGULATIO N INR 0.9 0.9 - 1.2 05/22 18:02 :00 Interpretive Data: Suggested therapeutic INR range for stable oral anticoagulati on: Optimal Therapeutic INR Range 2.0-3.0 Therapeutic Range for High-Risk Groups (antiphoshpol ipid syndrome with previous thrombosis) 2.0-3.0 DVT of the leg 2.0-3.0 PE 2.0-3.0 Patients with AF and Stable Coronary Artery Disease 2.0-3.0 Bioprosthetic valve in the mitral position 2.0-3.0 Mechanical mitral valve or additional risk factors 2.5-3.5 Prevention of Recurrent VTE in Women prophylaxis for 6 weeks with prophylactic- or intermediate- dose LMWH or warfarin targeted at INR 2.0 or 3.0 rather than no prophylaxis For additional guidance see: Abhi GH, Nannette EA, Jatinder Thornton, Halle DD, Schu n darby HJ; [employer] Antithromboti c Therapy and Prevention of Thrombosis Panel. Executive summary: Antithromboti c Therapy and Prevention of Thrombosis, 9th Ed: [employer] Evidence-Base d Clinical Practice Guidelines. Chest. 2011; 141(2 Suppl):7S-47S . doi: 10.1378/chest .1412S3 [facility] CT Neuronavig ational Head CT Neuronavigat ional Head CT Scan/CT Angio Accession # Exam Date/Time Procedure Ordering Provider [id number] 05/22/2024 11:[address] Neuronavig ational Donal BRISCOE, Marcio Pleitez Head Reason For Exam (CT Neuronavig ational Head) Hx of ALL Radiation Dose Estimate (CT Neuronavig ational Head) CTDI(mGy) DLP(mGy-cm ) Body Part Effective Dose(mSv) [id number] 8 [id number] 9 Head 0.640295 17.0222592 84 349.315540 234 Head [id number] 9 Total Effective Dose: 0.529469 mSv Report EXAMINATIO N: CT Neuronavig ational Head without IV contrast INDICATION : Hx of ALL COMPARISON : Brain MRI 03/15/2024 TECHNIQUE: High-resol ution neuronavig ation CT. 3D reconstruc tions were processed at a separate workstatio n and sent to PACS. FINDINGS: CT HEAD: INFARCT: No vascular territory infarct. HEMORRHAGE : No parenchyma l or extra-axia l hemorrhage . MASS EFFECT: None. PARENCHYMA : No intraparen chymal mass. VOLUME LOSS: None. VENTRICLES : No ventriculo megaly. VESSELS: Unremarkab le. BONES: No acute fracture. SINUSES: Clear. MASTOIDS: Underpneum atized. ORBITS: Normal. SOFT TISSUES: Normal. IMPRESSION : Planning study shows no acute intracrani al abnormalit y. I have personally reviewed the images and attest to the contents of this report. * * *Final Report* * * Electronic ally Signed by: Wolfgang BRISCOE, Wisam Carmona Signed on: 05/22/24 11:51 05/22 11:21 :03 [facility] GENERAL CHEMISTRY AST-SGOT 18 U/L 08/26 /2024 13:07 :00 [facility] GENERAL CHEMISTRY Albumin 3.7 g/dL 3.4 - 5.0 05/13 13:07 :00 [facility] GENERAL CHEMISTRY Alkaline Phosphatase 118 U/L 40 - 129 05/13 13:07 :00 [facility] GENERAL CHEMISTRY ALT-SGPT 49 U/L 10 - 50 05/13 13:07 :00 [facility] GENERAL CHEMISTRY BUN 13 mg/dL 6 - 20 05/13 13:07 :00 [facility] GENERAL CHEMISTRY Calcium 9.3 mg/dL 8.3 - 10.6 05/13 13:07 :00 [facility] GENERAL CHEMISTRY Glucose Lvl 102 mg/dL 70 - 139 05/13 13:07 :00 [facility] GENERAL CHEMISTRY Chloride 101 mmol/L 98 - 107 05/13 13:07 :00 [facility] GENERAL CHEMISTRY Sodium 136 mmol/L 136 - 145 05/13 13:07 :00 [facility] GENERAL CHEMISTRY Potassium 3.2 mmol/L 3.5 - 5.1 05/13 13:07 :00 [facility] GENERAL CHEMISTRY CO2 23 mmol/L 20 - 31 05/13 13:07 :00 [facility] GENERAL CHEMISTRY Anion gap 15 mmol/L 0 - 20 05/13 13:07 :00 [facility] GENERAL CHEMISTRY T Bili 0.49 mg/dL 0.30 - 1.20 05/13 13:07 :00 [facility] GENERAL CHEMISTRY Total Protein 6.2 g/dL 5.7 - 8.2 05/13 13:07 :00 [facility] GENERAL CHEMISTRY Creatinine, standardized 0.5 mg/dL 0.7 - 1.2 05/13 13:07 :00 Interpretive Data: Zxsdjd-vp-mca e transgender patients on testosterone therapy should have results assessed using the male reference range. Jufk-rk-gdtag e transgender patients on hormone-modul ating therapy clinical judgment is advisedfor assessment. [facility] GENERAL CHEMISTRY Estimated GFR for Adults 143 mL/min/1.7 3m 05/13 13:07 :00 Interpretive Data: Changed to CKD-EPI 2020 on 2020. [facility] GENERAL CHEMISTRY Estimated GFR for peds Not calculated 05/13 13:07 :00 Interpretive Data: The estimated GFR was calculated using the Teddy barker Dorado equation (2009) . Reference: Pediatric GFR calculator at [employer] Website. [facility] HEMATOLOGY PROFILES WBC 5.07 x10(9)/L 3.50 - 10.50 05/13 13:07 :00 [facility] HEMATOLOGY PROFILES RBC 2.82 x10(12)/L 4.32 - 5.72 05/13 13:07 :00 [facility] HEMATOLOGY PROFILES HGB 8.7 g/dL 13.5 - 17.5 05/13 13:07 :00 Interpretive Data: Erfawa-qn-qrg e transgender patients on testosterone therapy should have results assessed using the male reference range. Fdkh-hg-gamkw e transgender patients on hormone-modul ating therapy clinical judgment is advisedfor assessment. [facility] HEMATOLOGY PROFILES HCT 25.9 % 38.8 - 50.0 05/13 13:07 :00 Interpretive Data: Neoqjt-rq-djj e transgender patients on testosterone therapy should have results assessed using the male reference range. Bwtu-rv-nswxc e transgender patients on hormone-modul ating therapy clinical judgment is advisedfor assessment. [facility] HEMATOLOGY PROFILES MCV 91.8 fL 81.2 - 95.1 05/13 13:07 :00 [facility] HEMATOLOGY PROFILES MCH 30.9 pg 26.0 - 33.0 05/13 13:07 :00 [facility] HEMATOLOGY PROFILES MCHC 33.6 g/dL 32.0 - 36.0 05/13 13:07 :00 [facility] HEMATOLOGY PROFILES RDW CV 16.2 % 11.8 - 15.6 05/13 13:07 :00 [facility] HEMATOLOGY PROFILES RDW SD 53.4 fL 35.1 - 43.9 05/13 13:07 :00 [facility] HEMATOLOGY PROFILES PLT 255 x10(9)/L 150 - 450 05/13 13:07 :00 [facility] HEMATOLOGY PROFILES MPV 10.4 8.0 - 12.0 05/13 13:07 :00 [facility] HEMATOLOGY PROFILES % Nucleated RBCs 0.0 % 05/13 13:07 :00 [facility] HEMATOLOGY PROFILES Absolute Nucleated RBCs 0.0 x10(9)/L 0.0 - 0.0 05/13 13:07 :00 Interpretive Data: Normal values not established in patients less than 18 years old. [facility] HEMATOLOGY PROFILES % Neutrophils 83.4 % 05/13 13:07 :00 [facility] HEMATOLOGY PROFILES % Lymphocytes 8.3 % 05/13 13:07 :00 [facility] HEMATOLOGY PROFILES % Monocytes 5.5 % 05/13 13:07 :00 [facility] HEMATOLOGY PROFILES % Eosinophils 1.2 % 05/13 13:07 :00 [facility] HEMATOLOGY PROFILES % Basophils 0.2 % 05/13 13:07 :00 [facility] HEMATOLOGY PROFILES % Immature Granulocytes 1.40 % 0.02 - 0.42 05/13 13:07 :00 [facility] HEMATOLOGY PROFILES Absolute Granulocytes 4.23 x10(9)/L 1.70 - 7.00 08/26 /2024 13:07 :00 [facility] HEMATOLOGY PROFILES Abs Lymphocytes 0.42 x10(9)/L 0.90 - 2.90 05/13 13:07 :00 [facility] HEMATOLOGY PROFILES Abs Monocytes 0.28 x10(9)/L 0.30 - 0.90 05/13 13:07 :00 [facility] HEMATOLOGY PROFILES Abs Eosinophils 0.06 x10(9)/L 0.05 - 0.50 05/13 13:07 :00 [facility] HEMATOLOGY PROFILES Abs Basophils 0.01 x10(9)/L 0.00 - 0.30 05/13 13:07 :00 [facility] HEMATOLOGY PROFILES Abs Immature Granulocytes 0.07 x10(9)/L 0.00 - 0.03 05/13 13:07 :00 [facility] IR Lumbar Puncture IR Lumbar Puncture Interventi onal/Angio Accession # Exam Date/Time Procedure Ordering Provider [id number] 05/06/2024 15:30 CDT IR Lumbar Puncture Geovani BRISCOE, Derick Bingham Reason For Exam (IR Lumbar Puncture) IT CHEMO Report EXAM: 1. Lumbar Puncture 2. 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 Interventi onal radiology consult for image-guid ed lumbar puncture with intratheca l chemothera py administra tion COMPARISON : Comparison is made to relevant prior imaging OPERATORS: Expediter Clerk: Felipe Banks PA-C Attending: Derick Olivo MD PROCEDURE: Prior to the procedure, a problem-fo cused consultati on was performed. This included a history, brief review of systems and symptoms and focused physical exam. Signed informed consent was obtained and all questions answered after discussing the indication s, risks and benefits of the procedure. Prior to beginning the procedure a Time-Out was performed to confirm the patient's identity, the procedure, procedure site, allergies and to ensure the anticipate d supplies were available. All equipment and supplies utilized during the case were obtained from the VIR department stock. The patient was placed prone on the fluoroscop y table and the L4-L5 interspace was identified . The skin was marked and prepped and draped in the usual sterile fashion. The overlying subcutaneo us tissues were infiltrate d with 1% lidocaine for local anesthesia . A 20 G spinal needle was advanced under fluoroscop ic guidance until CSF fluid was obtained. Pressures were not measured. Approximat stephie 3 cc of CSF was obtained, within the prescribed dose of 100 mg intratheca l cytarabine was then slowly injected without difficulty . The needle was then withdrawn and hemostasis obtained with direct pressure. The patient tolerated the procedure well and there were no immediate complicati ons. FINDINGS: Spot fluoroscop ic images demonstrat e the identifica tion of the L4-L5 interspace with with subsequent placement of a spinal needle within COMPLICATI ONS: No immediate complicati ons. DISPOSITIO N: The patient was instructed to lie supine for most of the day to avoid a spinal headache. MEDICATION : 1% Lidocaine 5 ml SQ, 100 mcg fentanyl IV CONTRAST: None FLUOROSCOP Y: Time= 0.2 min; DAP = 22.08 uGym2; Total Dose = 3.4 mGy Interventi onal/Angio Report IMPRESSION : Successful lumbar puncture and administra tion of intratheca l chemothera py. I have personally reviewed the images and attest to the contents of this report. * * *Final Report* * * Electronic ally Signed by: Geovani BRISCOE, Derick Bingham Signed on: 05/06/24 17:56 05/06 14:21 :00 [facility] GENERAL CHEMISTRY Uric Acid 3.7 mg/dL 3.7 - 9.2 05/06 10:09 :00 [facility] GENERAL CHEMISTRY LDH 209 U/L 120 - 246 05/06 10:09 :00 [facility] GENERAL CHEMISTRY Estimated GFR for peds Not calculated 05/06 10:09 :00 Interpretive Data: The estimated GFR was calculated using the Teddy barker Dorado equation (2009) . Reference: Pediatric GFR calculator at [employer] Website. [facility] GENERAL CHEMISTRY Albumin 3.1 g/dL 3.4 - 5.0 05/06 10:09 :00 [facility] GENERAL CHEMISTRY BUN 14 mg/dL 6 - 20 05/06 10:09 :00 [facility] GENERAL CHEMISTRY Calcium 9.1 mg/dL 8.3 - 10.6 05/06 10:09 :00 [facility] GENERAL CHEMISTRY Glucose Lvl 103 mg/dL 70 - 139 05/06 10:09 :00 [facility] GENERAL CHEMISTRY Chloride 107 mmol/L 98 - 107 05/06 10:09 :00 [facility] GENERAL CHEMISTRY Sodium 140 mmol/L 136 - 145 05/06 10:09 :00 [facility] GENERAL CHEMISTRY Potassium 3.7 mmol/L 3.5 - 5.1 05/06 10:09 :00 [facility] GENERAL CHEMISTRY CO2 24 mmol/L 20 - 31 05/06 10:09 :00 [facility] CHEMISTRY Anion gap 13 mmol/L 0 - 20 05/06 10:09 :00 [facility] CHEMISTRY Phosphorus 3.9 mg/dL 2.4 - 5.1 05/06 10:09 :00 [facility] CHEMISTRY Creatinine, standardized 0.5 mg/dL 0.7 - 1.2 05/06 10:09 :00 Interpretive Data: Peiaak-un-oeg e transgender patients on testosterone therapy should have results assessed using the male reference range. Ynle-gl-ggtya e transgender patients on hormone-modul ating therapy clinical judgment is advisedfor assessment. [facility] GENERAL CHEMISTRY Estimated GFR for Adults 142 mL/min/1.7 3m 05/06 10:09 :00 Interpretive Data: Changed to CKD-EPI 2020 on 2020. [facility] HEMATOLOGY PROFILES WBC 20.76 x10(9)/L 3.50 - 10.50 05/06 10:09 :00 [facility] HEMATOLOGY PROFILES RBC 2.74 x10(12)/L 4.32 - 5.72 05/06 10:09 :00 [facility] HEMATOLOGY PROFILES HGB 8.6 g/dL 13.5 - 17.5 05/06 10:09 :00 Interpretive Data: Fxjnbe-gc-ove e transgender patients on testosterone therapy should have results assessed using the male reference range. Ajhl-vd-rnqht e transgender patients on hormone-modul ating therapy clinical judgment is advisedfor assessment. [facility] HEMATOLOGY PROFILES HCT 25.7 % 38.8 - 50.0 05/06 10:09 :00 Interpretive Data: Busemx-gc-rbp e transgender patients on testosterone therapy should have results assessed using the male reference range. Hxyc-yn-ismdt e transgender patients on hormone-modul ating therapy clinical judgment is advisedfor assessment. [facility] HEMATOLOGY PROFILES MCV 93.8 fL 81.2 - 95.1 05/06 10:09 :00 [facility] HEMATOLOGY PROFILES MCH 31.4 pg 26.0 - 33.0 05/06 10:09 :00 [facility] HEMATOLOGY PROFILES MCHC 33.5 g/dL 32.0 - 36.0 05/06 10:09 :00 [facility] HEMATOLOGY PROFILES RDW CV 16.5 % 11.8 - 15.6 05/06 10:09 :00 [facility] HEMATOLOGY PROFILES RDW SD 56.0 fL 35.1 - 43.9 05/06 10:09 :00 [facility] HEMATOLOGY PROFILES PLT 696 x10(9)/L 150 - 450 05/06 10:09 :00 [facility] HEMATOLOGY PROFILES MPV 8.7 8.0 - 12.0 05/06 10:09 :00 [facility] HEMATOLOGY PROFILES % Nucleated RBCs 0.2 % 05/06 10:09 :00 [facility] HEMATOLOGY PROFILES Absolute Nucleated RBCs 0.1 x10(9)/L 0.0 - 0.0 05/06 10:09 :00 Interpretive Data: Normal values not established in patients less than 18 years old. [facility] HEMATOLOGY PROFILES % Neutrophils 87.6 % 05/06 10:09 :00 [facility] HEMATOLOGY PROFILES % Lymphocytes 2.6 % 05/06 10:09 :00 [facility] HEMATOLOGY PROFILES % Monocytes 7.0 % 05/06 10:09 :00 [facility] HEMATOLOGY PROFILES % Eosinophils 0.1 % 05/06 10:09 :00 [facility] HEMATOLOGY PROFILES % Basophils 0.1 % 05/06 10:09 :00 [facility] HEMATOLOGY PROFILES % Immature Granulocytes 2.60 % 0.02 - 0.42 05/06 10:09 :00 [facility] HEMATOLOGY PROFILES Absolute Granulocytes 18.20 x10(9)/L 1.70 - 7.00 05/06 10:09 :00 [facility] HEMATOLOGY PROFILES Abs Lymphocytes 0.54 x10(9)/L 0.90 - 2.90 05/06 10:09 :00 [facility] HEMATOLOGY PROFILES Abs Monocytes 1.45 x10(9)/L 0.30 - 0.90 05/06 10:09 :00 [facility] HEMATOLOGY PROFILES Abs Eosinophils 0.02 x10(9)/L 0.05 - 0.50 05/06 10:09 :00 [facility] HEMATOLOGY PROFILES Abs Basophils 0.02 x10(9)/L 0.00 - 0.30 05/06 10:09 :00 [facility] HEMATOLOGY PROFILES Abs Immature Granulocytes 0.53 x10(9)/L 0.00 - 0.03 05/06 10:09 :00 [facility] HEMATOLOGY PROFILES Morphology Previously Reviewed, results remain consistent *NA* (05/06/24 5:09 AM) 05/06 10:09 :00 [facility] GENERAL CHEMISTRY AST-SGOT 19 U/L 05/05 10:22 :00 [facility] GENERAL CHEMISTRY Albumin 3.3 g/dL 3.4 - 5.0 05/05 10:22 :00 [facility] GENERAL CHEMISTRY Alkaline Phosphatase 128 U/L 40 - 129 05/05 10:22 :00 [facility] GENERAL CHEMISTRY ALT-SGPT 17 U/L 10 - 50 05/05 10:22 :00 [facility] GENERAL CHEMISTRY BUN 10 mg/dL 6 - 20 05/05 10:22 :00 [facility] GENERAL CHEMISTRY Calcium 9.3 mg/dL 8.3 - 10.6 05/05 10:22 :00 [facility] GENERAL CHEMISTRY Glucose Lvl 124 mg/dL 70 - 139 05/05 10:22 :00 [facility] GENERAL CHEMISTRY Chloride 107 mmol/L 98 - 107 05/05 10:22 :00 [facility] GENERAL CHEMISTRY Sodium 140 mmol/L 136 - 145 05/05 10:22 :00 [facility] GENERAL CHEMISTRY Potassium 4.1 mmol/L 3.5 - 5.1 05/05 10:22 :00 [facility] GENERAL CHEMISTRY CO2 24 mmol/L 20 - 31 05/05 10:22 :00 [facility] GENERAL CHEMISTRY Anion gap 13 mmol/L 0 - 20 05/05 10:22 :00 [facility] GENERAL CHEMISTRY T Bili 0.33 mg/dL 0.30 - 1.20 05/05 10:22 :00 [facility] GENERAL CHEMISTRY Total Protein 6.0 g/dL 5.7 - 8.2 05/05 10:22 :00 [facility] GENERAL CHEMISTRY Creatinine, standardized 0.5 mg/dL 0.7 - 1.2 05/05 10:22 :00 Interpretive Data: Nexjxt-oc-lfu e transgender patients on testosterone therapy should have results assessed using the male reference range. Jqfx-oa-nmahp e transgender patients on hormone-modul ating therapy clinical judgment is advisedfor assessment. [facility] GENERAL CHEMISTRY Estimated GFR for Adults 144 mL/min/1.7 3m 05/05 10:22 :00 Interpretive Data: Changed to CKD-EPI 2020 on 2020. [facility] GENERAL CHEMISTRY Estimated GFR for peds Not calculated 05/05 10:22 :00 Interpretive Data: The estimated GFR was calculated using the Teddy barker Dorado equation (2009) . Reference: Pediatric GFR calculator at [employer] Website. [facility] GENERAL CHEMISTRY LDH 226 U/L 120 - 246 05/05 10:22 :00 [facility] GENERAL CHEMISTRY Uric Acid 3.5 mg/dL 3.7 - 9.2 05/05 10:22 :00 [facility] HEMATOLOGY PROFILES WBC 21.44 x10(9)/L 3.50 - 10.50 05/05 10:22 :00 [facility] HEMATOLOGY PROFILES RBC 2.81 x10(12)/L 4.32 - 5.72 05/05 10:22 :00 [facility] HEMATOLOGY PROFILES HGB 8.5 g/dL 13.5 - 17.5 05/05 10:22 :00 Interpretive Data: Svlwkb-kh-qvp e transgender patients on testosterone therapy should have results assessed using the male reference range. Rcqk-qy-ewdak e transgender patients on hormone-modul ating therapy clinical judgment is advisedfor assessment. [facility] HEMATOLOGY PROFILES HCT 26.9 % 38.8 - 50.0 05/05 10:22 :00 Interpretive Data: Zjbgri-qn-axh e transgender patients on testosterone therapy should have results assessed using the male reference range. Xobp-pk-qhati e transgender patients on hormone-modul ating therapy clinical judgment is advisedfor assessment. [facility] HEMATOLOGY PROFILES MCV 95.7 fL 81.2 - 95.1 05/05 10:22 :00 [facility] HEMATOLOGY PROFILES MCH 30.2 pg 26.0 - 33.0 05/05 10:22 :00 [facility] HEMATOLOGY PROFILES MCHC 31.6 g/dL 32.0 - 36.0 05/05 10:22 :00 [facility] HEMATOLOGY PROFILES RDW CV 16.9 % 11.8 - 15.6 05/05 10:22 :00 [facility] HEMATOLOGY PROFILES RDW SD 59.2 fL 35.1 - 43.9 05/05 10:22 :00 [facility] HEMATOLOGY PROFILES PLT 809 x10(9)/L 150 - 450 05/05 10:22 :00 [facility] HEMATOLOGY PROFILES MPV 8.7 8.0 - 12.0 05/05 10:22 :00 [facility] HEMATOLOGY PROFILES % Nucleated RBCs 0.2 % 05/05 10:22 :00 [facility] HEMATOLOGY PROFILES Absolute Nucleated RBCs 0.0 x10(9)/L 0.0 - 0.0 05/05 10:22 : Interpretive Data: Normal values not established in patients less than 18 years old. [facility] HEMATOLOGY PROFILES % Neutrophils 90.1 % 05/05 10: :00 [facility] HEMATOLOGY PROFILES % Lymphocytes 2.8 % 05/05 10:22 : [facility] HEMATOLOGY PROFILES % Monocytes 2.0 % 05/05 10: :00 [facility] HEMATOLOGY PROFILES % Eosinophils 0.0 % 05/05 10: :00 [facility] HEMATOLOGY PROFILES % Basophils 0.1 % 05/05 10: :00 [facility] HEMATOLOGY PROFILES % Immature Granulocytes 5.00 % 0.02 - 0.42 05/05 10:22 :00 [facility] HEMATOLOGY PROFILES Absolute Granulocytes 19.30 x10(9)/L 1.70 - 7.00 05/05 10:22 :00 [facility] HEMATOLOGY PROFILES Abs Lymphocytes 0.59 x10(9)/L 0.90 - 2.90 05/05 10:22 :00 [facility] HEMATOLOGY PROFILES Abs Monocytes 0.43 x10(9)/L 0.30 - 0.90 05/05 10:22 :00 [facility] HEMATOLOGY PROFILES Abs Eosinophils 0.01 x10(9)/L 0.05 - 0.50 05/05 10:22 :00 [facility] HEMATOLOGY PROFILES Abs Basophils 0.03 x10(9)/L 0.00 - 0.30 05/05 10:22 :00 [facility] HEMATOLOGY PROFILES Abs Immature Granulocytes 1.08 x10(9)/L 0.00 - 0.03 05/05 10:22 :00 [facility] HEMATOLOGY PROFILES Morphology Previously Reviewed, results remain consistent *NA* (05/05/24 5:22 AM) 05/05 10:22 :00 [facility] GENERAL CHEMISTRY Albumin 3.2 g/dL 3.4 - 5.0 05/04 07:43 :00 [facility] GENERAL CHEMISTRY BUN 9 mg/dL 6 - 20 05/04 07:43 :00 [facility] GENERAL CHEMISTRY Calcium 9.2 mg/dL 8.3 - 10.6 05/04 07:43 :00 [facility] GENERAL CHEMISTRY Glucose Lvl 161 mg/dL 70 - 139 05/04 07:43 :00 [facility] GENERAL CHEMISTRY Chloride 108 mmol/L 98 - 107 05/04 07:43 :00 [facility] GENERAL CHEMISTRY Sodium 140 mmol/L 136 - 145 05/04 07:43 :00 [facility] GENERAL CHEMISTRY Potassium 4.0 mmol/L 3.5 - 5.1 05/04 07:43 :00 [facility] GENERAL CHEMISTRY CO2 23 mmol/L 20 - 31 05/04 07:43 :00 [facility] GENERAL CHEMISTRY Anion gap 13 mmol/L 0 - 20 05/04 07:43 :00 [facility] GENERAL CHEMISTRY Phosphorus 3.1 mg/dL 2.4 - 5.1 05/04 07:43 :00 [facility] GENERAL CHEMISTRY Creatinine, standardized 0.5 mg/dL 0.7 - 1.2 05/04 07:43 :00 Interpretive Data: Cpfxpq-gx-qro e transgender patients on testosterone therapy should have results assessed using the male reference range. Hxzf-hr-ywjpe e transgender patients on hormone-modul ating therapy clinical judgment is advisedfor assessment. [facility] GENERAL CHEMISTRY Estimated GFR for Adults 142 mL/min/1.7 3m 05/04 07:43 :00 Interpretive Data: Changed to CKD-EPI 2020 on 2020. [facility] GENERAL CHEMISTRY Estimated GFR for peds Not calculated 05/04 07:43 :00 Interpretive Data: The estimated GFR was calculated using the B lucero Dorado equation (2009) . Reference: Pediatric GFR calculator at [employer] Website. [facility] HEMATOLOGY PROFILES % Nucleated RBCs 0.0 % 05/04 07:43 :00 [facility] HEMATOLOGY PROFILES Absolute Nucleated RBCs 0.0 x10(9)/L 0.0 - 0.0 05/04 07:43 :00 Interpretive Data: Normal values not established in patients less than 18 years old. [facility] HEMATOLOGY PROFILES % Neutrophils 85.4 % 05/04 07:43 :00 [facility] HEMATOLOGY PROFILES % Lymphocytes 2.6 % 05/04 07:43 :00 [facility] HEMATOLOGY PROFILES % Monocytes 5.1 % 05/04 07:43 :00 [facility] HEMATOLOGY PROFILES % Eosinophils 0.0 % 05/04 07:43 :00 [facility] HEMATOLOGY PROFILES % Basophils 0.3 % 05/04 07:43 :00 [facility] HEMATOLOGY PROFILES % Immature Granulocytes 6.60 % 0.02 - 0.42 05/04 07:43 :00 [facility] HEMATOLOGY PROFILES Absolute Granulocytes 28.23 x10(9)/L 1.70 - 7.00 05/04 07:43 :00 [facility] HEMATOLOGY PROFILES Abs Lymphocytes 0.87 x10(9)/L 0.90 - 2.90 05/04 07:43 :00 [facility] HEMATOLOGY PROFILES Abs Monocytes 1.67 x10(9)/L 0.30 - 0.90 05/04 07:43 :00 [facility] HEMATOLOGY PROFILES Abs Eosinophils 0.00 x10(9)/L 0.05 - 0.50 05/04 07:43 :00 [facility] HEMATOLOGY PROFILES Abs Basophils 0.10 x10(9)/L 0.00 - 0.30 05/04 07:43 :00 [facility] HEMATOLOGY PROFILES Abs Immature Granulocytes 2.19 x10(9)/L 0.00 - 0.03 05/04 07:43 :00 [facility] HEMATOLOGY PROFILES Morphology Previously Reviewed, results remain consistent *NA* (05/04/24 2:43 AM) 05/04 07:43 :00 [facility] HEMATOLOGY PROFILES WBC 33.06 x10(9)/L 3.50 - 10.50 05/04 07:43 :00 [facility] HEMATOLOGY PROFILES RBC 2.80 x10(12)/L 4.32 - 5.72 05/04 07:43 :00 [facility] HEMATOLOGY PROFILES HGB 8.6 g/dL 13.5 - 17.5 05/04 07:43 :00 Interpretive Data: Seuuxu-dr-egf e transgender patients on testosterone therapy should have results assessed using the male reference range. Fiea-kz-bvcij e transgender patients on hormone-modul ating therapy clinical judgment is advisedfor assessment. [facility] HEMATOLOGY PROFILES HCT 26.8 % 38.8 - 50.0 05/04 07:43 :00 Interpretive Data: Obwkxi-nl-olu e transgender patients on testosterone therapy should have results assessed using the male reference range. Irtu-vo-sfjzj e transgender patients on hormone-modul ating therapy clinical judgment is advisedfor assessment. [facility] HEMATOLOGY PROFILES MCV 95.7 fL 81.2 - 95.1 05/04 07:43 :00 [facility] HEMATOLOGY PROFILES MCH 30.7 pg 26.0 - 33.0 05/04 07:43 :00 [facility] HEMATOLOGY PROFILES MCHC 32.1 g/dL 32.0 - 36.0 05/04 07:43 :00 [facility] HEMATOLOGY PROFILES RDW CV 17.2 % 11.8 - 15.6 05/04 07:43 :00 [facility] HEMATOLOGY PROFILES RDW SD 58.8 fL 35.1 - 43.9 05/04 07:43 :00 [facility] HEMATOLOGY PROFILES PLT 1080 x10(9)/L 150 - 450 05/04 07:43 :00 Result Comment: This result has been called to jacob Mays RN by [email or web address] on 05/04/2024 03:09:07, and has been read back. [facility] HEMATOLOGY PROFILES MPV 8.6 8.0 - 12.0 05/04 07:43 :00 [facility] GENERAL CHEMISTRY Albumin 3.1 g/dL 3.4 - 5.0 05/03 09:30 :00 [facility] GENERAL CHEMISTRY BUN 7 mg/dL 6 - 20 05/03 09:30 :00 [facility] GENERAL CHEMISTRY Calcium 9.1 mg/dL 8.3 - 10.6 05/03 09:30 :00 [facility] GENERAL CHEMISTRY Glucose Lvl 179 mg/dL 70 - 139 05/03 09:30 :00 [facility] GENERAL CHEMISTRY Chloride 107 mmol/L 98 - 107 05/03 09:30 :00 [facility] GENERAL CHEMISTRY Sodium 140 mmol/L 136 - 145 05/03 09:30 :00 [facility] CHEMISTRY Potassium 4.1 mmol/L 3.5 - 5.1 05/03 09:30 :00 [facility] GENERAL CHEMISTRY CO2 24 mmol/L 20 - 31 05/03 09:30 :00 [facility] CHEMISTRY Anion gap 13 mmol/L 0 - 20 05/03 09:30 :00 [facility] GENERAL CHEMISTRY Phosphorus 3.3 mg/dL 2.4 - 5.1 05/03 09:30 :00 [facility] CHEMISTRY Creatinine, standardized 0.4 mg/dL 0.7 - 1.2 05/03 09:30 :00 Interpretive Data: Jumjfn-ib-bas e transgender patients on testosterone therapy should have results assessed using the male reference range. Duek-kt-aekze e transgender patients on hormone-modul ating therapy clinical judgment is advisedfor assessment. [facility] GENERAL CHEMISTRY Estimated GFR for Adults 155 mL/min/1.7 3m 05/03 09:30 :00 Interpretive Data: Changed to CKD-EPI 2020 on 2020. [facility] GENERAL CHEMISTRY Estimated GFR for peds Not calculated 05/03 09:30 :00 Interpretive Data: The estimated GFR was calculated using the Teddy barker Dorado equation (2009) . Reference: Pediatric GFR calculator at [employer] Website. [facility] HEMATOLOGY PROFILES % Nucleated RBCs 0.0 % 05/03 09:30 :00 [facility] HEMATOLOGY PROFILES Absolute Nucleated RBCs 0.0 x10(9)/L 0.0 - 0.0 05/03 09:30 :00 Interpretive Data: Normal values not established in patients less than 18 years old. [facility] HEMATOLOGY PROFILES % Neutrophils 81.4 % 05/03 09:30 :00 [facility] HEMATOLOGY PROFILES % Lymphocytes 3.7 % 05/03 09:30 :00 [facility] HEMATOLOGY PROFILES % Monocytes 4.2 % 05/03 09:30 :00 [facility] HEMATOLOGY PROFILES % Eosinophils 0.0 % 05/03 09:30 :00 [facility] HEMATOLOGY PROFILES % Basophils 0.5 % 05/03 09:30 :00 [facility] HEMATOLOGY PROFILES % Immature Granulocytes 10.20 % 0.02 - 0.42 05/03 09:30 :00 [facility] HEMATOLOGY PROFILES Absolute Granulocytes 23.54 x10(9)/L 1.70 - 7.00 05/03 09:30 :00 [facility] HEMATOLOGY PROFILES Abs Lymphocytes 1.08 x10(9)/L 0.90 - 2.90 05/03 09:30 :00 [facility] HEMATOLOGY PROFILES Abs Monocytes 1.21 x10(9)/L 0.30 - 0.90 05/03 09:30 :00 [facility] HEMATOLOGY PROFILES Abs Eosinophils 0.01 x10(9)/L 0.05 - 0.50 05/03 09:30 :00 [facility] HEMATOLOGY PROFILES Abs Basophils 0.14 x10(9)/L 0.00 - 0.30 05/03 09:30 :00 [facility] HEMATOLOGY PROFILES Abs Immature Granulocytes 2.94 x10(9)/L 0.00 - 0.03 05/03 09:30 :00 [facility] HEMATOLOGY PROFILES Morphology Present *NA* (05/03/24 4:30 AM) 05/03 09:30 :00 [facility] HEMATOLOGY PROFILES Platelet Estimate Increased *NA* (05/03/24 4:30 AM) 05/03 09:30 :00 [facility] HEMATOLOGY PROFILES Aniso 1+ (10-20%) *NA* (05/03/24 4:30 AM) 05/03 09:30 :00 [facility] HEMATOLOGY PROFILES Schistocytes 1+ (Rare-3%) *NA* (05/03/24 4:30 AM) 05/03 09:30 :00 [facility] HEMATOLOGY PROFILES WBC 28.92 x10(9)/L 3.50 - 10.50 05/03 09:30 :00 [facility] HEMATOLOGY PROFILES RBC 2.87 x10(12)/L 4.32 - 5.72 05/03 09:30 :00 [facility] HEMATOLOGY PROFILES HGB 8.7 g/dL 13.5 - 17.5 05/03 09:30 :00 Interpretive Data: Weqbkf-zk-jhh e transgender patients on testosterone therapy should have results assessed using the male reference range. Khri-tv-jqedp e transgender patients on hormone-modul ating therapy clinical judgment is advisedfor assessment. [facility] HEMATOLOGY PROFILES HCT 27.2 % 38.8 - 50.0 05/03 09:30 :00 Interpretive Data: Hracey-ji-cdc e transgender patients on testosterone therapy should have results assessed using the male reference range. Ciwe-be-cqebi e transgender patients on hormone-modul ating therapy clinical judgment is advisedfor assessment. [facility] HEMATOLOGY PROFILES MCV 94.8 fL 81.2 - 95.1 05/03 09:30 :00 [facility] HEMATOLOGY PROFILES MCH 30.3 pg 26.0 - 33.0 05/03 09:30 :00 [facility] HEMATOLOGY PROFILES MCHC 32.0 g/dL 32.0 - 36.0 05/03 09:30 :00 [facility] HEMATOLOGY PROFILES RDW CV 16.8 % 11.8 - 15.6 05/03 09:30 :00 [facility] HEMATOLOGY PROFILES RDW SD 57.9 fL 35.1 - 43.9 05/03 09:30 :00 [facility] HEMATOLOGY PROFILES PLT 1261 x10(9)/L 150 - 450 05/03 09:30 :00 Result Comment: This result has been called to Chey Henson RN by [email or web address] on 05/03/2024 05:13:34, and has been read back. [facility] HEMATOLOGY PROFILES MPV 8.5 8.0 - 12.0 05/03 09:30 :00 [facility] BODY FLUIDS/CSF CSF, Protein 42 mg/dL 15 - 45 05/02 19:27 :00 [facility] BODY FLUIDS/CSF CSF, Glucose 55 mg/dL 40 - 70 05/02 19:27 :00 [facility] BODY FLUIDS/CSF CSF Xanthochromi c Absent (05/02/24 2:27 PM) 05/02 19:27 :00 [facility] BODY FLUIDS/CSF CSF Cutoff Values See Comment 20 (05/02/24 2:27 PM) 05/02 19:27 :00 Interpretive Data: Cells: Cells Adults Neonates WBC 0-5 WBC/uL 0-30 WBC/uL RBC Absent Absent Neutrophils 0-6% 0-8% Lymphocytes 40-80% 5-35% Monocytes 15-45% 50-90% Eosinophils Rare Rare Note: These Reference ranges or Cutoff Values of normal vs. abnormal are based on the peer reviewed literature and reference texts. We cannot define 95% range for normal patients, as it would require invasive sampling of normal people. [facility] BODY FLUIDS/CSF CSF, Color Colorless (05/02/24 2:27 PM) 05/02 19:27 :00 [facility] BODY FLUIDS/CSF CSF, Spec Appear Clear (05/02/24 2:27 PM) 05/02 19:27 :00 [facility] BODY FLUIDS/CSF CSF, WBC 0 /mcL 05/02 19:27 :00 Interpretive Data: Variation from manual counting may exceed 50% and approach 15-20% using automated method. Pleocytosis in Adults (increased WBC count) may be graded: Mild: 5-50 WBC/uL Moderate: 51-200 WBC/uL Severe: > 200 WBC/uL CSF may have > 60% neutrophils in high-risk neonates without meningitis [facility] BODY FLUIDS/CSF CSF, RBC 11 /mcL 05/02 19:27 :00 Interpretive Data: Variation from manual counting may exceed 50% and approach 15-20% using automated method. [facility] IR Lumbar Puncture IR Lumbar Puncture Interventi onal/Angio Accession # Exam Date/Time Procedure Ordering Provider [id number] 05/02/2024 14:52 CDT IR Lumbar Puncture Derick Olivo MD Reason For Exam (IR Lumbar Puncture) IT CHEMO Report EXAM: 1. Lumbar Puncture 2. 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 Interventi onal radiology consult for image-guid ed lumbar puncture with intratheca l chemothera py administra tion COMPARISON : Comparison is made to relevant prior imaging OPERATORS: Expediter Clerk: Stu CHRISTIAN Attending: Derick Olivo MD PROCEDURE: Prior to the procedure, a problem-fo cused consultati on was performed. This included a history, brief review of systems and symptoms and focused physical exam. Signed informed consent was obtained and all questions answered after discussing the indication s, risks and benefits of the procedure. Prior to beginning the procedure a Time-Out was performed to confirm the patient's identity, the procedure, procedure site, allergies and to ensure the anticipate d supplies were available. All equipment and supplies utilized during the case were obtained from the VIR department stock. The patient was placed prone on the fluoroscop y table and the L3-L4 interspace was identified . The skin was marked and prepped and draped in the usual sterile fashion. The overlying subcutaneo us tissues were infiltrate d with 1% lidocaine for local anesthesia . A 20 G spinal needle was advanced under fluoroscop ic guidance until CSF fluid was obtained. Pressures were not measured. 12 cc of CSF was drained and sent to the laboratory for analysis. This fluid was collected and sent for requested laboratory analysis. Following drainage of CSF, the prescribed dose of intratheca l methotrexa te was then slowly injected without difficulty . The needle was then withdrawn and hemostasis obtained with direct pressure. The patient tolerated the procedure well and there were no immediate complicati ons. FINDINGS: Spot fluoroscop ic images demonstrat e the identifica tion of the L3-L4 interspace with with subsequent placement of a spinal needle within COMPLICATI ONS: No immediate complicati ons. DISPOSITIO N: The patient was instructed to lie supine for most of the day to avoid a spinal headache. MEDICATION : 1% Lidocaine 5 ml SQ, 50 mcg fentanyl IV CONTRAST: None FLUOROSCOP Y: Time= 0.2 min; DAP = 5.20 uGym2; Total Dose = 0.7 mGy Interventi onal/Angio Report IMPRESSION : Successful lumbar puncture and administra tion of intratheca l chemothera py. I have personally reviewed the images and attest to the contents of this report. * * *Final Report* * * Electronic ally Signed by: Geovani BRISCOE, Derick Bingham Signed on: 05/02/24 16:54 05/02 14:12 :00 [facility] GENERAL CHEMISTRY Phosphorus 5.1 mg/dL 2.4 - 5.1 05/02 08:54 :00 [facility] HEMATOLOGY PROFILES Platelet Estimate Increased *NA* (05/02/24 3:54 AM) 05/02 08:54 :00 [facility] HEMATOLOGY PROFILES Aniso 1+ (10-20%) *NA* (05/02/24 3:54 AM) 05/02 08:54 :00 [facility] Cytology Non-ALCOHOL STILL OPERATOR Report Cytology Non-ALCOHOL STILL OPERATOR Report CYTOLOGY MEDICAL REPORT Patient Name: EVELINA DO Specimen Number: [id number] Patient Collection Date: 05/02/2024 Submitting Physician: James Freedman MD Signout Date: 05/06/2024 Other Physician( s): Dario Madsen, DO ======== FINAL DIAGNOSIS CEREBROSPI NAL FLUID: NEGATIVE FOR ACUTE LEUKEMIA Please see previous material ([id number], [id number], [id number], [id number]) Please see comment Diagnosis Comment Microscopi c descriptio n: Review of Luo-sta ined cytospin preparatio ns reveals rare small mature lymphocyte s and monocytes. No blasts are seen. ======== Source of Specimen(s ) CEREBROSPI NAL FLUID Clinical History Acute Leukemia- B-ALL Descriptio n of Specimen RECEIVED 3 ML OF CLEAR FLUID HEMATOLOGY PREPARED 2 CYTOSPINS All slides and preparatio ns are stained and microscopi guilherme examined in the laboratory . All outside slides are received stained and are microscopi guilherme examined in the laboratory . The performanc e characteri stics of the immunohist ochemical stains cited in this report (if any) were determined by the [facility] Department of Pathology. They have not been cleared or approved by the U.S. Food and Drug Administra tion. The FDA has determined that such clearance or approval is not necessary. This test is for clinical purposes. It should not be regarded as investigat ional or for research. This laboratory is certified under the Clinical Laboratory Improvemen t Amendments of 1988 (CLIA) as qualified to perform high complexity clinical laboratory testing. 05/02 08:00 :00 Missing Attachment [id number].PDF can be viewed in source system [facility] HEMATOLOGY PROFILES Neuts Manual 57.0 % 05/01 08:42 :00 [facility] HEMATOLOGY PROFILES Lymphocytes Manual 7.4 % 05/01 08:42 :00 [facility] HEMATOLOGY PROFILES Monocytes Manual 23.2 % 05/01 08:42 :00 [facility] HEMATOLOGY PROFILES Metas hp 5.0 % 05/01 08:42 :00 [facility] HEMATOLOGY PROFILES Myelos hp 7.4 % 05/01 08:42 :00 [facility] HEMATOLOGY PROFILES NRBC Manual 0.8 /100WBC 05/01 08:42 :00 [facility] HEMATOLOGY PROFILES Absolute Neutrophils Manual 12.25 x10(9)/L 1.70 - 7.00 05/01 08:42 :00 [facility] HEMATOLOGY PROFILES Abs Lymphocytes Manual 1.59 x10(9)/L 0.90 - 2.90 05/01 08:42 :00 [facility] HEMATOLOGY PROFILES Abs Monocytes Manual 4.99 x10(9)/L 0.30 - 0.90 05/01 08:42 :00 [facility] HEMATOLOGY PROFILES Abs Metas 1.07 x10(9)/L 0.00 - 0.11 05/01 08:42 :00 [facility] HEMATOLOGY PROFILES Abs Myelos 1.59 x10(9)/L 0.00 - 0.11 05/01 08:42 :00 [facility] HEMATOLOGY PROFILES Platelet Estimate Increased *NA* (05/01/24 3:42 AM) 05/01 08:42 :00 [facility] HEMATOLOGY PROFILES Aniso 1+ (10-20%) *NA* (05/01/24 3:42 AM) 05/01 08:42 :00 [facility] HEMATOLOGY PROFILES Poly 1+ (2-10%) *NA* (05/01/24 3:42 AM) 05/01 08:42 :00 [facility] THERAPEUTI C DRUGS Vancomycin Trough 12.9 ug/mL 5.0 - 10.0 04/30 13:47 :00 [facility] GENERAL CHEMISTRY AST-SGOT 14 U/L 04/30 09:10 :00 [facility] GENERAL CHEMISTRY Alkaline Phosphatase 152 U/L 40 - 129 04/30 09:10 :00 [facility] GENERAL CHEMISTRY ALT-SGPT 14 U/L 10 - 50 04/30 09:10 :00 [facility] GENERAL CHEMISTRY Direct Bilirubin 0.1 mg/dL 04/30 09:10 :00 [facility] GENERAL CHEMISTRY T Bili 0.27 mg/dL 0.30 - 1.20 04/30 09:10 :00 [facility] GENERAL CHEMISTRY Total Protein 5.5 g/dL 5.7 - 8.2 04/30 09:10 :00 [facility] HEMATOLOGY PROFILES Abs NRBC Man 0.4 x10(9)/L 0.0 - 0.0 04/30 09:10 :00 [facility] HEMATOLOGY PROFILES Neuts Manual 48.0 % 04/30 09:10 :00 [facility] HEMATOLOGY PROFILES Bands Manual 3.0 % 04/30 09:10 :00 [facility] HEMATOLOGY PROFILES Lymphocytes Manual 12.0 % 04/30 09:10 :00 [facility] HEMATOLOGY PROFILES Atypical Lymphs Manual 1.0 % 04/30 09:10 :00 [facility] HEMATOLOGY PROFILES Monocytes Manual 25.0 % 04/30 09:10 :00 [facility] HEMATOLOGY PROFILES Eosinophils Manual 1.0 % 04/30 09:10 :00 [facility] HEMATOLOGY PROFILES Basophils Manual 2.0 % 04/30 09:10 :00 [facility] HEMATOLOGY PROFILES Metas hp 6.0 % 04/30 09:10 :00 [facility] HEMATOLOGY PROFILES Myelos hp 2.0 % 04/30 09:10 :00 [facility] HEMATOLOGY PROFILES NRBC Manual 2.0 /100WBC 04/30 09:10 :00 [facility] HEMATOLOGY PROFILES Absolute Neutrophils Manual 9.96 x10(9)/L 1.70 - 7.00 04/30 09:10 :00 [facility] HEMATOLOGY PROFILES Abs Bands Manual 0.62 x10(9)/L 0.00 - 0.88 04/30 09:10 :00 [facility] HEMATOLOGY PROFILES Abs Lymphocytes Manual 2.49 x10(9)/L 0.90 - 2.90 04/30 09:10 :00 [facility] HEMATOLOGY PROFILES Abs Atypical Lymphocytes Manual 0.21 x10(9)/L 0.00 - 0.11 04/30 09:10 :00 [facility] HEMATOLOGY PROFILES Abs Monocytes Manual 5.19 x10(9)/L 0.30 - 0.90 04/30 09:10 :00 [facility] HEMATOLOGY PROFILES Abs Eosinophils Manual 0.21 x10(9)/L 0.05 - 0.50 04/30 09:10 :00 [facility] HEMATOLOGY PROFILES Abs Basophils Manual 0.41 x10(9)/L 0.00 - 0.30 04/30 09:10 :00 [facility] HEMATOLOGY PROFILES Abs Metas 1.24 x10(9)/L 0.00 - 0.11 04/30 09:10 :00 [facility] HEMATOLOGY PROFILES Abs Myelos 0.41 x10(9)/L 0.00 - 0.11 04/30 09:10 :00 [facility] HEMATOLOGY PROFILES Platelet Estimate Increased *NA* (04/30/24 4:10 AM) 04/30 09:10 :00 [facility] HEMATOLOGY PROFILES Aniso 1+ (10-20%) *NA* (04/30/24 4:10 AM) 04/30 09:10 :00 [facility] HEMATOLOGY PROFILES Elliptocytes (Ovalocytes) 1+ (10-25%) *NA* (04/30/24 4:10 AM) 04/30 09:10 :00 [facility] HEMATOLOGY PROFILES Schistocytes 1+ (Rare-3%) *NA* (04/30/24 4:10 AM) 04/30 09:10 :00 [facility] Culture BloodX No growth at 5 days. 04/29 20:53 :00 [facility] GENERAL CHEMISTRY AST-SGOT 15 U/L 04/29 07:20 :00 [facility] GENERAL CHEMISTRY Alkaline Phosphatase 167 U/L 40 - 129 04/29 07:20 :00 [facility] GENERAL CHEMISTRY ALT-SGPT 16 U/L 10 - 50 04/29 07:20 :00 [facility] GENERAL CHEMISTRY T Bili 0.24 mg/dL 0.30 - 1.20 04/29 07:20 :00 [facility] GENERAL CHEMISTRY Total Protein 5.4 g/dL 5.7 - 8.2 04/29 07:20 :00 [facility] HEMATOLOGY PROFILES Absolute Neutrophils Manual 8.44 x10(9)/L 1.70 - 7.00 04/29 07:20 :00 [facility] HEMATOLOGY PROFILES Abs Bands Manual 1.04 x10(9)/L 0.00 - 0.88 04/29 07:20 :00 [facility] HEMATOLOGY PROFILES Abs Lymphocytes Manual 1.92 x10(9)/L 0.90 - 2.90 04/29 07:20 :00 [facility] HEMATOLOGY PROFILES Abs Monocytes Manual 4.88 x10(9)/L 0.30 - 0.90 04/29 07:20 :00 [facility] HEMATOLOGY PROFILES Abs Basophils Manual 0.30 x10(9)/L 0.00 - 0.30 04/29 07:20 :00 [facility] HEMATOLOGY PROFILES Abs Metas 0.14 x10(9)/L 0.00 - 0.11 04/29 07:20 :00 [facility] HEMATOLOGY PROFILES Abs Myelos 0.90 x10(9)/L 0.00 - 0.11 04/29 07:20 :00 [facility] HEMATOLOGY PROFILES Neuts Manual 47.9 % 04/29 07:20 :00 [facility] HEMATOLOGY PROFILES Bands Manual 5.9 % 04/29 07:20 :00 [facility] HEMATOLOGY PROFILES Lymphocytes Manual 10.9 % 04/29 07:20 :00 [facility] HEMATOLOGY PROFILES Monocytes Manual 27.7 % 04/29 07:20 :00 [facility] HEMATOLOGY PROFILES Basophils Manual 1.7 % 04/29 07:20 :00 [facility] HEMATOLOGY PROFILES Metas hp 0.8 % 04/29 07:20 :00 [facility] HEMATOLOGY PROFILES Myelos hp 5.1 % 04/29 07:20 :00 [facility] HEMATOLOGY PROFILES NRBC Manual 0.8 /100WBC 04/29 07:20 :00 [facility] HEMATOLOGY PROFILES Schistocytes 1+ (Rare-3%) *NA* (04/29/24 2:20 AM) 04/29 07:20 :00 [facility] HEMATOLOGY PROFILES Abs NRBC Man 0.1 x10(9)/L 0.0 - 0.0 04/29 07:20 :00 [facility] CT Facial Bones CT Facial Bones CT Scan/CT Angio Accession # Exam Date/Time Procedure Ordering Provider [id number] 04/28/2024 21:[address] Facial Bones Dario Madsen DO Reason For Exam (CT Facial Bones) Worsening dental abscess Report PROCEDURE INFORMATIO N: Exam: CT Maxillofac ial with contrast Exam date and time: 04/28/2024 8:26 PM Age: 24 years old Clinical indication : Worsening dental abscess TECHNIQUE: Imaging protocol: Computed tomography of the face without contrast. COMPARISON : MRI Brain 03/15/2024 9:11 PM FINDINGS: Orbital cavities: Orbits are normal. Globes are unremarkab le. Paranasal sinuses: Small amount of mucosal thickening within the base of the right greater than left maxillary sinuses. No air-fluid levels. Teeth: Periodonta l disease including multifocal dental caries. There are periapical lucencies surroundin g the roots of the maxillary molars and the left maxillary lateral incisor. The left maxillary mandibular root periapical lucencies may contribute to the paranasal sinus disease. No fluid collection s/abscess. Bones: No acute fracture. Soft tissues: Unremarkab le. IMPRESSION : Extensive dental caries with maxillary molar periapical lucencies potentiall y contributi ng to mild left maxillary sinus disease. No acute abnormalit y or visualized soft tissue fluid collection . Electronic ally signed by Marshall Amador DO at 04/28/2024 23:16 For questions regarding this report please call [facility] at I have personally reviewed the images and attest to the contents of this report. * * *Final Report* * * Electronic ally Signed by: Jacqueline BRISCOE, Nghia Castrejon Signed on: 04/29/24 05:05 Transcribe d date/time: 04/29/24 05:07 04/28 20:23 :14 [facility] HEMATOLOGY PROFILES Abs NRBC Man 0.2 x10(9)/L 0.0 - 0.0 04/28 09:20 :00 [facility] HEMATOLOGY PROFILES Neuts Manual 26.0 % 04/28 09:20 :00 [facility] HEMATOLOGY PROFILES Bands Manual 2.0 % 04/28 09:20 :00 [facility] HEMATOLOGY PROFILES Lymphocytes Manual 29.0 % 04/28 09:20 :00 [facility] HEMATOLOGY PROFILES Monocytes Manual 28.0 % 04/28 09:20 :00 [facility] HEMATOLOGY PROFILES Eosinophils Manual 1.0 % 04/28 09:20 :00 [facility] HEMATOLOGY PROFILES Metas hp 7.0 % 04/28 09:20 :00 [facility] HEMATOLOGY PROFILES Myelos hp 7.0 % 04/28 09:20 :00 [facility] HEMATOLOGY PROFILES NRBC Manual 1.0 /100WBC 04/28 09:20 :00 [facility] HEMATOLOGY PROFILES Absolute Neutrophils Manual 4.89 x10(9)/L 1.70 - 7.00 04/28 09:20 :00 [facility] HEMATOLOGY PROFILES Abs Bands Manual 0.38 x10(9)/L 0.00 - 0.88 04/28 09:20 :00 [facility] HEMATOLOGY PROFILES Abs Lymphocytes Manual 5.45 x10(9)/L 0.90 - 2.90 04/28 09:20 :00 [facility] HEMATOLOGY PROFILES Abs Monocytes Manual 5.27 x10(9)/L 0.30 - 0.90 04/28 09:20 :00 [facility] HEMATOLOGY PROFILES Abs Eosinophils Manual 0.19 x10(9)/L 0.05 - 0.50 04/28 09:20 :00 [facility] HEMATOLOGY PROFILES Abs Metas 1.32 x10(9)/L 0.00 - 0.11 04/28 09:20 :00 [facility] HEMATOLOGY PROFILES Abs Myelos 1.32 x10(9)/L 0.00 - 0.11 04/28 09:20 :00 [facility] THERAPEUTI C DRUGS Vancomycin Trough 8.9 ug/mL 5.0 - 10.0 04/28 09:20 :00 [facility] Culture RespiratoryX Heavy Normal upper respirator y tract alecia 04/27 10:03 :00 [facility] HEMATOLOGY PROFILES Poly 1+ (2-10%) *NA* (04/27/24 2:05 AM) 04/27 07:05 :00 [facility] HEMATOLOGY PROFILES Internal Review Yes (04/27/24 2:05 AM) 04/27 07:05 :00 [facility] HEMATOLOGY PROFILES QA Review Agree (04/27/24 2:05 AM) 04/27 07:05 :00 [facility] HEMATOLOGY PROFILES Bands Manual 2.0 % 04/26 09:43 :00 [facility] HEMATOLOGY PROFILES Eosinophils Manual 2.0 % 04/26 09:43 :00 [facility] HEMATOLOGY PROFILES Abs Bands Manual 0.14 x10(9)/L 0.00 - 0.88 04/26 09:43 :00 [facility] HEMATOLOGY PROFILES Abs Eosinophils Manual 0.14 x10(9)/L 0.05 - 0.50 04/26 09:43 :00 [facility] HEMATOLOGY PROFILES Elliptocytes (Ovalocytes) 1+ (10-25%) *NA* (04/26/24 4:43 AM) 04/26 09:43 :00 [facility] HEMATOLOGY PROFILES Stomatocytes 1+ (10-25%) *NA* (04/26/24 4:43 AM) 04/26 09:43 :00 [facility] HEMATOLOGY PROFILES Teardrop 1+ (3-6%) *NA* (04/26/24 4:43 AM) 04/26 09:43 :00 [facility] GENERAL CHEMISTRY AST-SGOT 11 U/L 04/26 07:41 :00 [facility] GENERAL CHEMISTRY Alkaline Phosphatase 169 U/L 40 - 129 04/26 07:41 :00 [facility] GENERAL CHEMISTRY ALT-SGPT 24 U/L 10 - 50 04/26 07:41 :00 [facility] GENERAL CHEMISTRY T Bili 0.55 mg/dL 0.30 - 1.20 04/26 07:41 :00 [facility] GENERAL CHEMISTRY Total Protein 5.6 g/dL 5.7 - 8.2 04/26 07:41 :00 [facility] URINALYSIS Urine Collection Method Clean Catch UR (04/26/24 2:41 AM) 04/26 07:41 :00 [facility] URINALYSIS CLARITY Clear (04/26/24 2:41 AM) 04/26 07:41 :00 [facility] URINALYSIS COLOR Yellow (04/26/24 2:41 AM) 04/26 07:41 :00 [facility] URINALYSIS SPECIFIC GRAVITY 1.041 1.006 - 1.030 04/26 07:41 :00 [facility] URINALYSIS UA PH 6 (04/26/24 2:41 AM) 4.5 - 8.0 04/26 07:41 :00 [facility] URINALYSIS UA GLUCOSE Negative mg/dL 04/26 07:41 :00 [facility] URINALYSIS UA KETONES Negative mg/dL 04/26 07:41 :00 [facility] URINALYSIS BILIRUBIN Negative (04/26/24 2:41 AM) 04/26 07:41 :00 [facility] URINALYSIS UA UROBILINOGEN Negative Yumi unit/dL 0.2 - 1.0 04/26 07:41 :00 [facility] URINALYSIS UA BLOOD Negative 13 (04/26/24 2:41 AM) 04/26 07:41 :00 Result Comment: A hemoglobin concentration of 0.015-0.062 mg/dL is approximately equivalent to 5 -20 intact red blood cells per microliter. [facility] URINALYSIS UA LEUKOCYTES Negative (04/26/24 2:41 AM) 04/26 07:41 :00 [facility] URINALYSIS UA NITRITE Negative (04/26/24 2:41 AM) 04/26 07:41 :00 [facility] URINALYSIS UA PROTEIN Negative mg/dL 04/26 07:41 :00 [facility] XR Chest XR Chest XR General Diagnostic Accession # Exam Date/Time Procedure Ordering Provider [id number] 04/25/2024 23:38 CDT XR Chest Alicja BRISCOE, Tangela Camarena Reason For Exam (XR Chest) Fever Report EXAMINATIO N: XR Chest INDICATION : Fever VIEWS: 1 COMPARISON : Radiograph 03/20/2024, 03/14/2024 FINDINGS: Normal cardiomedi astinal silhouette . No focal consolidat ion. No pleural effusions. No pneumothor ax. No acute osseous abnormalit ies. IMPRESSION : No acute cardiopulm onary findings. I have personally reviewed the images and attest to the contents of this report. * * *Final Report* * * Electronic ally Signed by: Jacqueline BRISCOE, Nghia Castrejon Signed on: 04/26/24 05:39 04/25 23:09 :47 [facility] GENERAL CHEMISTRY AST-SGOT 43 U/L 04/18 16:37 :00 [facility] CHEMISTRY Albumin 3.1 g/dL 3.4 - 5.0 04/18 16:37 :00 [facility] CHEMISTRY Alkaline Phosphatase 231 U/L 40 - 129 04/18 16:37 :00 [facility] CHEMISTRY ALT-SGPT 118 U/L 10 - 50 04/18 16:37 :00 [facility] GENERAL CHEMISTRY BUN 7 mg/dL 6 - 20 04/18 16:37 :00 [facility] CHEMISTRY Calcium 9.0 mg/dL 8.3 - 10.6 04/18 16:37 :00 [facility] CHEMISTRY Glucose Lvl 92 mg/dL 70 - 139 04/18 16:37 :00 [facility] CHEMISTRY Chloride 106 mmol/L 98 - 107 04/18 16:37 :00 [facility] GENERAL CHEMISTRY Sodium 139 mmol/L 136 - 145 04/18 16:37 :00 [facility] GENERAL CHEMISTRY Potassium 3.4 mmol/L 3.5 - 5.1 04/18 16:37 :00 [facility] GENERAL CHEMISTRY CO2 29 mmol/L 20 - 31 04/18 16:37 :00 [facility] CHEMISTRY Anion gap 7 mmol/L 0 - 20 04/18 16:37 :00 [facility] GENERAL CHEMISTRY T Bili 0.76 mg/dL 0.30 - 1.20 04/18 16:37 :00 [facility] GENERAL CHEMISTRY Total Protein 5.3 g/dL 5.7 - 8.2 04/18 16:37 :00 [facility] GENERAL CHEMISTRY Creatinine, standardized 0.4 mg/dL 0.7 - 1.2 04/18 16:37 :00 Interpretive Data: Dcccht-ch-zhq e transgender patients on testosterone therapy should have results assessed using the male reference range. Eoef-tw-ybdxr e transgender patients on hormone-modul ating therapy clinical judgment is advisedfor assessment. [facility] GENERAL CHEMISTRY Estimated GFR for Adults 155 mL/min/1.7 3m 04/18 16:37 :00 Interpretive Data: Changed to CKD-EPI 2020 on 2020. [facility] GENERAL CHEMISTRY Estimated GFR for peds Not calculated 04/18 16:37 :00 Interpretive Data: The estimated GFR was calculated using the B lucero Dorado equation (2009) . Reference: Pediatric GFR calculator at [employer] Website. [facility] HEMATOLOGY PROFILES WBC 0.83 x10(9)/L 3.50 - 10.50 04/18 16:37 :00 Result Comment: MD Karly Guerin notified of critial result, RBV Result Comment: This result has been called to ELVIRA Chavez by [email or web address] on 04/18/2024 12:08:11, and has been read back. [facility] HEMATOLOGY PROFILES RBC 2.38 x10(12)/L 4.32 - 5.72 04/18 16:37 :00 [facility] HEMATOLOGY PROFILES HGB 7.4 g/dL 13.5 - 17.5 04/18 16:37 :00 Interpretive Data: Ysevbn-lc-tzm e transgender patients on testosterone therapy should have results assessed using the male reference range. Ienz-xy-xzudj e transgender patients on hormone-modul ating therapy clinical judgment is advisedfor assessment. [facility] HEMATOLOGY PROFILES HCT 22.2 % 38.8 - 50.0 04/18 16:37 :00 Interpretive Data: Weetfq-nz-urw e transgender patients on testosterone therapy should have results assessed using the male reference range. Rxkf-qf-secyn e transgender patients on hormone-modul ating therapy clinical judgment is advisedfor assessment. [facility] HEMATOLOGY PROFILES MCV 93.3 fL 81.2 - 95.1 04/18 16:37 :00 [facility] HEMATOLOGY PROFILES MCH 31.1 pg 26.0 - 33.0 04/18 16:37 :00 [facility] HEMATOLOGY PROFILES MCHC 33.3 g/dL 32.0 - 36.0 04/18 16:37 :00 [facility] HEMATOLOGY PROFILES RDW CV 16.7 % 11.8 - 15.6 04/18 16:37 :00 [facility] HEMATOLOGY PROFILES RDW SD 55.0 fL 35.1 - 43.9 04/18 16:37 :00 [facility] HEMATOLOGY PROFILES PLT 38 x10(9)/L 150 - 450 04/18 16:37 :00 [facility] HEMATOLOGY PROFILES MPV 9.7 8.0 - 12.0 04/18 16:37 :00 [facility] HEMATOLOGY PROFILES Neuts Manual 41.0 % 04/18 16:37 :00 [facility] HEMATOLOGY PROFILES Lymphocytes Manual 55.0 % 04/18 16:37 :00 [facility] HEMATOLOGY PROFILES Eosinophils Manual 1.0 % 04/18 16:37 :00 [facility] HEMATOLOGY PROFILES Basophils Manual 1.0 % 04/18 16:37 :00 [facility] HEMATOLOGY PROFILES Reactive Lymphs Manual 2.0 % 04/18 16:37 :00 [facility] HEMATOLOGY PROFILES Abs Reactive Lymphs Manual 00.02 04/18 16:37 :00 [facility] HEMATOLOGY PROFILES Absolute Neutrophils Manual 0.34 x10(9)/L 1.70 - 7.00 04/18 16:37 :00 Result Comment: MD Karly Guerin notified of critical result, RBV Result Comment: This result has been called to Docras Pascal RN by [email or web address] on 04/18/2024 12:54:04, and has been read back. [facility] HEMATOLOGY PROFILES Abs Lymphocytes Manual 0.46 x10(9)/L 0.90 - 2.90 04/18 16:37 :00 [facility] HEMATOLOGY PROFILES Abs Eosinophils Manual 0.01 x10(9)/L 0.05 - 0.50 04/18 16:37 :00 [facility] HEMATOLOGY PROFILES Abs Basophils Manual 0.01 x10(9)/L 0.00 - 0.30 04/18 16:37 :00 [facility] HEMATOLOGY PROFILES Morphology Previously Reviewed, results remain consistent *NA* (04/18/24 11:37 AM) 08/01 /2024 16:37 :00 [facility] HEMATOLOGY PROFILES Platelet Estimate Decreased *NA* (04/18/24 11:37 AM) 04/18 16:37 :00 [facility] HEMATOLOGY PROFILES Elliptocytes (Ovalocytes) 1+ (10-25%) *NA* (04/18/24 11:37 AM) 04/18 16:37 :00 [facility] HEMATOLOGY PROFILES Schistocytes 1+ (Rare-3%) *NA* (04/18/24 11:37 AM) 04/18 16:37 :00 [facility] HEMATOLOGY PROFILES Teardrop 1+ (3-6%) *NA* (04/18/24 11:37 AM) 04/18 16:37 :00 [facility] GENERAL CHEMISTRY AST-SGOT 59 U/L 04/16 09:00 :00 [facility] GENERAL CHEMISTRY Albumin 3.0 g/dL 3.4 - 5.0 04/16 09:00 :00 [facility] GENERAL CHEMISTRY Alkaline Phosphatase 268 U/L 40 - 129 04/16 09:00 :00 [facility] GENERAL CHEMISTRY ALT-SGPT 145 U/L 10 - 50 04/16 09:00 :00 [facility] GENERAL CHEMISTRY BUN 15 mg/dL 6 - 20 04/16 09:00 :00 [facility] GENERAL CHEMISTRY Calcium 8.9 mg/dL 8.3 - 10.6 04/16 09:00 :00 [facility] GENERAL CHEMISTRY Glucose Lvl 106 mg/dL 70 - 139 04/16 09:00 :00 [facility] GENERAL CHEMISTRY Chloride 105 mmol/L 98 - 107 04/16 09:00 :00 [facility] GENERAL CHEMISTRY Sodium 136 mmol/L 136 - 145 04/16 09:00 :00 [facility] GENERAL CHEMISTRY Potassium 3.4 mmol/L 3.5 - 5.1 04/16 09:00 :00 [facility] GENERAL CHEMISTRY CO2 25 mmol/L 20 - 31 04/16 09:00 :00 [facility] GENERAL CHEMISTRY Anion gap 9 mmol/L 0 - 20 04/16 09:00 :00 [facility] GENERAL CHEMISTRY T Bili 0.97 mg/dL 0.30 - 1.20 04/16 09:00 :00 [facility] GENERAL CHEMISTRY Total Protein 5.4 g/dL 5.7 - 8.2 04/16 09:00 :00 [facility] GENERAL CHEMISTRY Creatinine, standardized 0.4 mg/dL 0.7 - 1.2 04/16 09:00 :00 Interpretive Data: Kibejm-zk-roz e transgender patients on testosterone therapy should have results assessed using the male reference range. Wqzo-rt-pgkyl e transgender patients on hormone-modul ating therapy clinical judgment is advisedfor assessment. [facility] GENERAL CHEMISTRY Estimated GFR for Adults 152 mL/min/1.7 3m 04/16 09:00 :00 Interpretive Data: Changed to CKD-EPI 2020 on 2020. [facility] GENERAL CHEMISTRY Estimated GFR for peds Not calculated 04/16 09:00 :00 Interpretive Data: The estimated GFR was calculated using the B lucero Dorado equation (2009) . Reference: Pediatric GFR calculator at [employer] Website. [facility] HEMATOLOGY PROFILES % Nucleated RBCs 0.0 % 04/16 09:00 :00 [facility] HEMATOLOGY PROFILES Absolute Nucleated RBCs 0.0 x10(9)/L 0.0 - 0.0 04/16 09:00 :00 Interpretive Data: Normal values not established in patients less than 18 years old. [facility] HEMATOLOGY PROFILES % Neutrophils 90.8 % 04/16 09:00 :00 [facility] HEMATOLOGY PROFILES % Lymphocytes 6.6 % 04/16 09:00 :00 [facility] HEMATOLOGY PROFILES % Monocytes 0.8 % 04/16 09:00 :00 [facility] HEMATOLOGY PROFILES % Eosinophils 0.2 % 04/16 09:00 :00 [facility] HEMATOLOGY PROFILES % Basophils 0.8 % 04/16 09:00 :00 [facility] HEMATOLOGY PROFILES % Immature Granulocytes 0.80 % 0.02 - 0.42 04/16 09:00 :00 [facility] HEMATOLOGY PROFILES Absolute Granulocytes 4.41 x10(9)/L 1.70 - 7.00 04/16 09:00 :00 [facility] HEMATOLOGY PROFILES Abs Lymphocytes 0.32 x10(9)/L 0.90 - 2.90 04/16 09:00 :00 [facility] HEMATOLOGY PROFILES Abs Monocytes 0.04 x10(9)/L 0.30 - 0.90 04/16 09:00 :00 [facility] HEMATOLOGY PROFILES Abs Eosinophils 0.01 x10(9)/L 0.05 - 0.50 04/16 09:00 :00 [facility] HEMATOLOGY PROFILES Abs Basophils 0.04 x10(9)/L 0.00 - 0.30 04/16 09:00 :00 [facility] HEMATOLOGY PROFILES Abs Immature Granulocytes 0.04 x10(9)/L 0.00 - 0.03 04/16 09:00 :00 [facility] HEMATOLOGY PROFILES Morphology Present *NA* (04/16/24 4:00 AM) 04/16 09:00 :00 [facility] HEMATOLOGY PROFILES Platelet Estimate Decreased *NA* (04/16/24 4:00 AM) 04/16 09:00 :00 [facility] HEMATOLOGY PROFILES Aniso 1+ (10-20%) *NA* (04/16/24 4:00 AM) 04/16 09:00 :00 [facility] HEMATOLOGY PROFILES Pappenheimer bodies Present *NA* (04/16/24 4:00 AM) 04/16 09:00 :00 [facility] HEMATOLOGY PROFILES Schistocytes 1+ (Rare-3%) *NA* (04/16/24 4:00 AM) 04/16 09:00 :00 [facility] HEMATOLOGY PROFILES WBC 4.88 x10(9)/L 3.50 - 10.50 04/16 09:00 :00 [facility] HEMATOLOGY PROFILES RBC 2.26 x10(12)/L 4.32 - 5.72 04/16 09:00 :00 [facility] HEMATOLOGY PROFILES HGB 7.1 g/dL 13.5 - 17.5 04/16 09:00 :00 Interpretive Data: Glffaf-hw-lid e transgender patients on testosterone therapy should have results assessed using the male reference range. Xsrq-ng-ktiyb e transgender patients on hormone-modul ating therapy clinical judgment is advisedfor assessment. [facility] HEMATOLOGY PROFILES HCT 21.7 % 38.8 - 50.0 04/16 09:00 :00 Interpretive Data: Dfiwdg-ve-als e transgender patients on testosterone therapy should have results assessed using the male reference range. Hicd-rb-mkkdh e transgender patients on hormone-modul ating therapy clinical judgment is advisedfor assessment. [facility] HEMATOLOGY PROFILES MCV 96.0 fL 81.2 - 95.1 04/16 09:00 :00 [facility] HEMATOLOGY PROFILES MCH 31.4 pg 26.0 - 33.0 04/16 09:00 :00 [facility] HEMATOLOGY PROFILES MCHC 32.7 g/dL 32.0 - 36.0 04/16 09:00 :00 [facility] HEMATOLOGY PROFILES RDW CV 16.7 % 11.8 - 15.6 04/16 09:00 :00 [facility] HEMATOLOGY PROFILES RDW SD 57.7 fL 35.1 - 43.9 04/16 09:00 :00 [facility] HEMATOLOGY PROFILES PLT 124 x10(9)/L 150 - 450 04/16 09:00 :00 [facility] HEMATOLOGY PROFILES MPV 9.1 8.0 - 12.0 04/16 09:00 :00 [facility] IR Lumbar Puncture IR Lumbar Puncture Interventi onal/Angio Accession # Exam Date/Time Procedure Ordering Provider [id number] 04/15/2024 16:43 CDT IR Lumbar Puncture Archie BRISCOE, Nakia Gamboa Reason For Exam (IR Lumbar Puncture) IT CHEMO Report EXAMINATIO N: Fluoroscop ic guided lumbar puncture with intratheca l cytarabine injection. 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 Interventi onal radiology consulted for image guided lumbar puncture with intratheca l chemothera py administra tion. COMPARISON : Lumbar puncture dated 04/09/2024 PROCEDURE DETAILS: Sedation: None Performing Practition er: GINO Alcazar Attending: Adrián Castellanos MD was available onsite for assistance , image review, and provided final dictation. Fluoro time: 0.3 minutes Fluoro dose: 4.6 mGy Patient was monitored at all times by attending physician and [facility] on[facility]ology nursing staff. Informed consent was obtained. Patient was positioned prone on the fluoroscop ic table. Patient was prepped and draped in usual sterile manner. A \X201C\meenu e out was then performed. The L3-4 interspace was identified and lidocaine was administer ed to the subcutaneo us and deep tissues. A 20g spinal needle was then advanced without difficulty into the thecal sac with the use of intermitte nt fluoroscop y. Spontaneou s return of CSF confirmed needle position within the intratheca l space with low pressures. Next, 100 mg of cytarabine was then injected into the intratheca l space. The stylet was replaced and the needle was removed. Sterile bandage was applied. Patient tolerated the procedure well. IMPRESSION : 1. Successful fluoroscop ic guided lumbar puncture. 2. 100 mg of cytarabine was injected into the intratheca l space. I have personally reviewed the images and attest to the contents of this report. * * *Final Report* * * Electronic ally Signed by: Jasmin BRISCOE, Adrián Edmondson Signed on: 04/16/24 09:09 04/15 16:12 :00 [facility] GENERAL CHEMISTRY AST-SGOT 99 U/L 04/15 09:00 :00 [facility] GENERAL CHEMISTRY Albumin 3.2 g/dL 3.4 - 5.0 04/15 09:00 :00 [facility] GENERAL CHEMISTRY Alkaline Phosphatase 312 U/L 40 - 129 04/15 09:00 :00 [facility] GENERAL CHEMISTRY ALT-SGPT 206 U/L 10 - 50 04/15 09:00 :00 [facility] GENERAL CHEMISTRY BUN 14 mg/dL 6 - 20 04/15 09:00 :00 [facility] CHEMISTRY Calcium 9.2 mg/dL 8.3 - 10.6 04/15 09:00 :00 [facility] GENERAL CHEMISTRY Glucose Lvl 104 mg/dL 70 - 139 04/15 09:00 :00 [facility] GENERAL CHEMISTRY Chloride 102 mmol/L 98 - 107 04/15 09:00 :00 [facility] GENERAL CHEMISTRY Sodium 135 mmol/L 136 - 145 04/15 09:00 :00 [facility] GENERAL CHEMISTRY Potassium 3.7 mmol/L 3.5 - 5.1 04/15 09:00 :00 [facility] GENERAL CHEMISTRY CO2 26 mmol/L 20 - 31 04/15 09:00 :00 [facility] CHEMISTRY Anion gap 11 mmol/L 0 - 20 04/15 09:00 :00 [facility] GENERAL CHEMISTRY T Bili 1.30 mg/dL 0.30 - 1.20 04/15 09:00 :00 [facility] GENERAL CHEMISTRY Total Protein 5.9 g/dL 5.7 - 8.2 04/15 09:00 :00 [facility] CHEMISTRY Creatinine, standardized 0.4 mg/dL 0.7 - 1.2 04/15 09:00 :00 Interpretive Data: Wwajxu-yj-oty e transgender patients on testosterone therapy should have results assessed using the male reference range. Hkgb-hz-uoqeq e transgender patients on hormone-modul ating therapy clinical judgment is advisedfor assessment. [facility] GENERAL CHEMISTRY Estimated GFR for Adults 158 mL/min/1.7 3m 04/15 09:00 :00 Interpretive Data: Changed to CKD-EPI 2020 on 2020. [facility] CHEMISTRY Estimated GFR for peds Not calculated 04/15 09:00 :00 Interpretive Data: The estimated GFR was calculated using the B lucero Dorado equation (2009) . Reference: Pediatric GFR calculator at [employer] Website. [facility] GENERAL CHEMISTRY Magnesium 1.65 mg/dL 1.60 - 2.60 04/15 09:00 :00 [facility] GENERAL CHEMISTRY T Bili 1.30 mg/dL 0.30 - 1.20 04/15 09:00 :00 [facility] GENERAL CHEMISTRY Direct Bilirubin 0.5 mg/dL 04/15 09:00 :00 [facility] GENERAL CHEMISTRY Indirect Bilirubin 0.8 mg/dL 0.1 - 1.2 04/15 09:00 :00 [facility] HEMATOLOGY PROFILES WBC 9.91 x10(9)/L 3.50 - 10.50 04/15 09:00 :00 [facility] HEMATOLOGY PROFILES RBC 2.66 x10(12)/L 4.32 - 5.72 04/15 09:00 :00 [facility] HEMATOLOGY PROFILES HGB 8.3 g/dL 13.5 - 17.5 04/15 09:00 :00 Interpretive Data: Rairsq-jn-rbx e transgender patients on testosterone therapy should have results assessed using the male reference range. Vjgq-at-rnort e transgender patients on hormone-modul ating therapy clinical judgment is advisedfor assessment. [facility] HEMATOLOGY PROFILES HCT 25.9 % 38.8 - 50.0 04/15 09:00 :00 Interpretive Data: Hjubuq-xe-wjv e transgender patients on testosterone therapy should have results assessed using the male reference range. Fpxr-ik-tvmte e transgender patients on hormone-modul ating therapy clinical judgment is advisedfor assessment. [facility] HEMATOLOGY PROFILES MCV 97.4 fL 81.2 - 95.1 04/15 09:00 :00 [facility] HEMATOLOGY PROFILES MCH 31.2 pg 26.0 - 33.0 04/15 09:00 :00 [facility] HEMATOLOGY PROFILES MCHC 32.0 g/dL 32.0 - 36.0 04/15 09:00 :00 [facility] HEMATOLOGY PROFILES RDW CV 17.0 % 11.8 - 15.6 04/15 09:00 :00 [facility] HEMATOLOGY PROFILES RDW SD 58.6 fL 35.1 - 43.9 04/15 09:00 :00 [facility] HEMATOLOGY PROFILES PLT 205 x10(9)/L 150 - 450 04/15 09:00 :00 [facility] HEMATOLOGY PROFILES MPV 9.2 8.0 - 12.0 04/15 09:00 :00 [facility] HEMATOLOGY PROFILES Neuts Manual 93.0 % 04/15 09:00 :00 [facility] HEMATOLOGY PROFILES Lymphocytes Manual 6.0 % 04/15 09:00 :00 [facility] HEMATOLOGY PROFILES Monocytes Manual 1.0 % 04/15 09:00 :00 [facility] HEMATOLOGY PROFILES Absolute Neutrophils Manual 9.22 x10(9)/L 1.70 - 7.00 04/15 09:00 :00 [facility] HEMATOLOGY PROFILES Abs Lymphocytes Manual 0.59 x10(9)/L 0.90 - 2.90 04/15 09:00 :00 [facility] HEMATOLOGY PROFILES Abs Monocytes Manual 0.10 x10(9)/L 0.30 - 0.90 04/15 09:00 :00 [facility] HEMATOLOGY PROFILES Morphology Present *NA* (04/15/24 4:00 AM) 04/15 09:00 :00 [facility] HEMATOLOGY PROFILES Platelet Estimate Adequate *NA* (04/15/24 4:00 AM) 04/15 09:00 :00 [facility] HEMATOLOGY PROFILES Aniso 1+ (10-20%) *NA* (04/15/24 4:00 AM) 04/15 09:00 :00 [facility] HEMATOLOGY PROFILES Schistocytes 1+ (Rare-3%) *NA* (04/15/24 4:00 AM) 04/15 09:00 :00 [facility] US Abdomen (Non Vascular) US Abdomen (Non Vascular) Ultrasound Accession # Exam Date/Time Procedure Ordering Provider [id number] 04/14/2024 12:27 CDT US Abdomen (Non Katlin BRISCOE, Mabel Chauhan Vascular) Reason For Exam (US Abdomen (Non Vascular)) elevated LFTs and Tbilli Report EXAMINATIO N: US Abdomen (Non Vascular) INDICATION : elevated LFTs and Tbilli COMPARISON : CT abdomen pelvis performed 03 April 2024 TECHNIQUE: Grayscale, color and Limited spectral Doppler evaluation of the right upper quadrant was performed. FINDINGS: LIVER: Size (length): 20.8 cm Echogenici ty: Normal Parenchyma : No masses Intrahepat ic Bile Ducts: Nondilated Hepatic Veins: Patent Portal Vein: Patent with normally directed flow PSV: 67 cm/s GALLBLADDE R: Wall Thickness: 1.5 mm Morphology : Thin-elijah d without hyperemia Lumen: Multiple shadowing stones Sonographi c Martinez's Sign: Negative EXTRAHEPAT IC BILE DUCTS: Common Bile Duct Diameter: 3.8 mm RIGHT KIDNEY: Length: 12.0 cm Width: 5.7 cm Height: 5.5 cm Morphology /parenchym a: Normal cortical echogenici ty. No focal abnormalit y. Collecting System: No hydronephr osis or stones. PANCREAS: Visualized portion is unremarkab le OTHER: Fluid: No ascites IMPRESSION : Cholelithi asis without features of acute cholecysti tis. I have personally reviewed the images and attest to the contents of Ultrasound Report this report. * * *Final Report* * * Electronic ally Signed by: Kris BRISCOE, Jailene Lo Signed on: 04/14/24 17:01 04/14 11:14 :04 [facility] GENERAL CHEMISTRY AST-SGOT 174 U/L 04/14 10:13 :00 [facility] GENERAL CHEMISTRY Albumin 3.2 g/dL 3.4 - 5.0 04/14 10:13 :00 [facility] GENERAL CHEMISTRY Alkaline Phosphatase 289 U/L 40 - 129 04/14 10:13 :00 [facility] CHEMISTRY ALT-SGPT 257 U/L 10 - 50 04/14 10:13 :00 [facility] CHEMISTRY BUN 13 mg/dL 6 - 20 04/14 10:13 :00 [facility] GENERAL CHEMISTRY Calcium 9.1 mg/dL 8.3 - 10.6 04/14 10:13 :00 [facility] GENERAL CHEMISTRY Glucose Lvl 90 mg/dL 70 - 139 04/14 10:13 :00 [facility] GENERAL CHEMISTRY Chloride 101 mmol/L 98 - 107 04/14 10:13 :00 [facility] GENERAL CHEMISTRY Sodium 134 mmol/L 136 - 145 04/14 10:13 :00 [facility] GENERAL CHEMISTRY Potassium 3.9 mmol/L 3.5 - 5.1 04/14 10:13 :00 [facility] GENERAL CHEMISTRY CO2 27 mmol/L 20 - 31 04/14 10:13 :00 [facility] GENERAL CHEMISTRY Anion gap 10 mmol/L 0 - 20 04/14 10:13 :00 [facility] GENERAL CHEMISTRY Total Protein 5.8 g/dL 5.7 - 8.2 04/14 10:13 :00 [facility] CHEMISTRY Creatinine, standardized 0.4 mg/dL 0.7 - 1.2 04/14 10:13 :00 Interpretive Data: Kpfdhk-[id number]-hrd e transgender patients on testosterone therapy should have results assessed using the male reference range. Xzxd-yy-shosh e transgender patients on hormone-modul ating therapy clinical judgment is advisedfor assessment. [facility] GENERAL CHEMISTRY Estimated GFR for Adults 155 mL/min/1.7 3m 04/14 10:13 :00 Interpretive Data: Changed to CKD-EPI 2020 on 2020. [facility] GENERAL CHEMISTRY Estimated GFR for peds Not calculated 04/14 10:13 :00 Interpretive Data: The estimated GFR was calculated using the Teddy barker Dorado equation (2009) . Reference: Pediatric GFR calculator at [employer] Website. [facility] GENERAL CHEMISTRY Magnesium 1.64 mg/dL 1.60 - 2.60 04/14 10:13 :00 [facility] HEMATOLOGY PROFILES WBC 39.97 x10(9)/L 3.50 - 10.50 04/14 10:13 :00 [facility] HEMATOLOGY PROFILES RBC 2.85 x10(12)/L 4.32 - 5.72 04/14 10:13 :00 [facility] HEMATOLOGY PROFILES HGB 8.9 g/dL 13.5 - 17.5 04/14 10:13 :00 Interpretive Data: Xyyylj-yt-ovc e transgender patients on testosterone therapy should have results assessed using the male reference range. Hgsq-zt-slieg e transgender patients on hormone-modul ating therapy clinical judgment is advisedfor assessment. [facility] HEMATOLOGY PROFILES HCT 27.4 % 38.8 - 50.0 04/14 10:13 :00 Interpretive Data: Edwmhf-ba-keq e transgender patients on testosterone therapy should have results assessed using the male reference range. Mvgk-tn-wfsjf e transgender patients on hormone-modul ating therapy clinical judgment is advisedfor assessment. [facility] HEMATOLOGY PROFILES MCV 96.1 fL 81.2 - 95.1 04/14 10:13 :00 [facility] HEMATOLOGY PROFILES MCH 31.2 pg 26.0 - 33.0 04/14 10:13 :00 [facility] HEMATOLOGY PROFILES MCHC 32.5 g/dL 32.0 - 36.0 04/14 10:13 :00 [facility] HEMATOLOGY PROFILES RDW CV 17.2 % 11.8 - 15.6 04/14 10:13 :00 [facility] HEMATOLOGY PROFILES RDW SD 58.5 fL 35.1 - 43.9 04/14 10:13 :00 [facility] HEMATOLOGY PROFILES PLT 275 x10(9)/L 150 - 450 04/14 10:13 :00 [facility] HEMATOLOGY PROFILES MPV 9.0 8.0 - 12.0 04/14 10:13 :00 [facility] HEMATOLOGY PROFILES Absolute Neutrophils Manual 39.97 x10(9)/L 1.70 - 7.00 04/14 10:13 :00 [facility] HEMATOLOGY PROFILES Neuts Manual 100.0 % 04/14 10:13 :00 [facility] HEMATOLOGY PROFILES Morphology Present *NA* (04/14/24 5:13 AM) 04/14 10:13 :00 [facility] HEMATOLOGY PROFILES Platelet Estimate Adequate *NA* (04/14/24 5:13 AM) 04/14 10:13 :00 [facility] HEMATOLOGY PROFILES Aniso 1+ (10-20%) *NA* (04/14/24 5:13 AM) 04/14 10:13 :00 [facility] HEMATOLOGY PROFILES Schistocytes 1+ (Rare-3%) *NA* (04/14/24 5:13 AM) 04/14 10:13 :00 [facility] GENERAL CHEMISTRY Magnesium 1.52 mg/dL 1.60 - 2.60 04/13 07:31 :00 [facility] HEMATOLOGY PROFILES % Nucleated RBCs 0.3 % 04/13 07:31 :00 [facility] HEMATOLOGY PROFILES Absolute Nucleated RBCs 0.0 x10(9)/L 0.0 - 0.0 04/13 07:31 :00 Interpretive Data: Normal values not established in patients less than 18 years old. [facility] HEMATOLOGY PROFILES % Neutrophils 95.8 % 04/13 07:31 :00 [facility] HEMATOLOGY PROFILES % Lymphocytes 2.0 % 04/13 07:31 :00 [facility] HEMATOLOGY PROFILES % Monocytes 0.7 % 04/13 07:31 :00 [facility] HEMATOLOGY PROFILES % Eosinophils 0.0 % 04/13 07:31 :00 [facility] HEMATOLOGY PROFILES % Basophils 0.8 % 04/13 07:31 :00 [facility] HEMATOLOGY PROFILES % Immature Granulocytes 0.70 % 0.02 - 0.42 04/13 07:31 :00 [facility] HEMATOLOGY PROFILES Absolute Granulocytes 5.64 x10(9)/L 1.70 - 7.00 04/13 07:31 :00 [facility] HEMATOLOGY PROFILES Abs Lymphocytes 0.12 x10(9)/L 0.90 - 2.90 04/13 07:31 :00 [facility] HEMATOLOGY PROFILES Abs Monocytes 0.04 x10(9)/L 0.30 - 0.90 04/13 07:31 :00 [facility] HEMATOLOGY PROFILES Abs Eosinophils 0.00 x10(9)/L 0.05 - 0.50 04/13 07:31 :00 [facility] HEMATOLOGY PROFILES Abs Basophils 0.05 x10(9)/L 0.00 - 0.30 04/13 07:31 :00 [facility] HEMATOLOGY PROFILES Abs Immature Granulocytes 0.04 x10(9)/L 0.00 - 0.03 04/13 07:31 :00 [facility] HEMATOLOGY PROFILES % Nucleated RBCs 0.3 % 04/12 14:38 :00 [facility] HEMATOLOGY PROFILES Absolute Nucleated RBCs 0.0 x10(9)/L 0.0 - 0.0 04/12 14:38 :00 Interpretive Data: Normal values not established in patients less than 18 years old. [facility] HEMATOLOGY PROFILES % Neutrophils 96.9 % 04/12 14:38 :00 [facility] HEMATOLOGY PROFILES % Lymphocytes 0.9 % 04/12 14:38 :00 [facility] HEMATOLOGY PROFILES % Monocytes 1.4 % 04/12 14:38 :00 [facility] HEMATOLOGY PROFILES % Eosinophils 0.1 % 04/12 14:38 :00 [facility] HEMATOLOGY PROFILES % Basophils 0.2 % 04/12 14:38 :00 [facility] HEMATOLOGY PROFILES % Immature Granulocytes 0.50 % 0.02 - 0.42 04/12 14:38 :00 [facility] HEMATOLOGY PROFILES Absolute Granulocytes 8.37 x10(9)/L 1.70 - 7.00 04/12 14:38 :00 [facility] HEMATOLOGY PROFILES Abs Lymphocytes 0.08 x10(9)/L 0.90 - 2.90 04/12 14:38 :00 [facility] HEMATOLOGY PROFILES Abs Monocytes 0.12 x10(9)/L 0.30 - 0.90 04/12 14:38 :00 [facility] HEMATOLOGY PROFILES Abs Eosinophils 0.01 x10(9)/L 0.05 - 0.50 04/12 14:38 :00 [facility] HEMATOLOGY PROFILES Abs Basophils 0.02 x10(9)/L 0.00 - 0.30 04/12 14:38 :00 [facility] HEMATOLOGY PROFILES Abs Immature Granulocytes 0.04 x10(9)/L 0.00 - 0.03 04/12 14:38 :00 [facility] HEMATOLOGY PROFILES Aniso 1+ (10-20%) *NA* (04/12/24 9:38 AM) 04/12 14:38 :00 [facility] HEMATOLOGY PROFILES Elliptocytes (Ovalocytes) 1+ (10-25%) *NA* (04/12/24 9:38 AM) 04/12 14:38 :00 [facility] HEMATOLOGY PROFILES Stomatocytes 1+ (10-25%) *NA* (04/12/24 9:38 AM) 04/12 14:38 :00 [facility] HEMATOLOGY PROFILES Internal Review Yes (04/12/24 9:38 AM) 04/12 14:38 :00 [facility] HEMATOLOGY PROFILES QA Review Agree (04/12/24 9:38 AM) 04/12 14:38 :00 [facility] URINALYSIS CLARITY Clear (04/12/24 5:22 AM) 04/12 10:22 :00 [facility] URINALYSIS COLOR Straw (04/12/24 5:22 AM) 04/12 10:22 :00 [facility] URINALYSIS SPECIFIC GRAVITY 1.011 1.006 - 1.030 04/12 10:22 :00 [facility] URINALYSIS UA PH 8 *NA* (04/12/24 5:22 AM) 4.5 - 8.0 04/12 10:22 :00 [facility] URINALYSIS UA GLUCOSE Negative mg/dL 04/12 10:22 :00 [facility] URINALYSIS UA KETONES Negative mg/dL 04/12 10:22 :00 [facility] URINALYSIS BILIRUBIN Negative (04/12/24 5:22 AM) 04/12 10:22 :00 [facility] URINALYSIS UA UROBILINOGEN Negative Yumi unit/dL 0.2 - 1.0 04/12 10:22 :00 [facility] URINALYSIS UA BLOOD Negative 34 (04/12/24 5:22 AM) 04/12 10:22 :00 Result Comment: A hemoglobin concentration of 0.015-0.062 mg/dL is approximately equivalent to 5 -20 intact red blood cells per microliter. [facility] URINALYSIS UA LEUKOCYTES Negative (04/12/24 5:22 AM) 04/12 10:22 :00 [facility] URINALYSIS UA NITRITE Negative (04/12/24 5:22 AM) 04/12 10:22 :00 [facility] URINALYSIS UA PROTEIN Negative mg/dL 04/12 10:22 :00 [facility] URINALYSIS CLARITY Clear (04/12/24 12:19 AM) 04/12 05:19 :00 [facility] URINALYSIS COLOR Colorless (04/12/24 12:19 AM) 04/12 05:19 :00 [facility] URINALYSIS SPECIFIC GRAVITY 1.003 1.006 - 1.030 04/12 05:19 :00 [facility] URINALYSIS UA PH 8 *NA* (04/12/24 12:19 AM) 4.5 - 8.0 04/12 05:19 :00 [facility] URINALYSIS UA GLUCOSE Negative mg/dL 04/12 05:19 :00 [facility] URINALYSIS UA KETONES Negative mg/dL 04/12 05:19 :00 [facility] URINALYSIS BILIRUBIN Negative (04/12/24 12:19 AM) 04/12 05:19 :00 [facility] URINALYSIS UA UROBILINOGEN Negative Yumi unit/dL 0.2 - 1.0 04/12 05:19 :00 [facility] URINALYSIS UA BLOOD Negative 35 (04/12/24 12:19 AM) 04/12 05:19 :00 Result Comment: A hemoglobin concentration of 0.015-0.062 mg/dL is approximately equivalent to 5 -20 intact red blood cells per microliter. [facility] URINALYSIS UA LEUKOCYTES Negative (04/12/24 12:19 AM) 04/12 05:19 :00 [facility] URINALYSIS UA NITRITE Negative (04/12/24 12:19 AM) 04/12 05:19 :00 [facility] URINALYSIS UA PROTEIN Negative mg/dL 04/12 05:19 :00 [facility] THERAPEUTI C DRUGS Methotrexate Lvl 0.05 umol/L 04/11 22:19 :00 [facility] URINALYSIS CLARITY Clear (04/11/24 4:25 PM) 04/11 21:25 :00 [facility] URINALYSIS COLOR Straw (04/11/24 4:25 PM) 04/11 21:25 :00 [facility] URINALYSIS SPECIFIC GRAVITY 1.010 1.006 - 1.030 04/11 21:25 :00 [facility] URINALYSIS UA PH 8 *NA* (04/11/24 4:25 PM) 4.5 - 8.0 04/11 21:25 :00 [facility] URINALYSIS UA GLUCOSE Negative mg/dL 04/11 21:25 :00 [facility] URINALYSIS UA KETONES Negative mg/dL 04/11 21:25 :00 [facility] URINALYSIS BILIRUBIN Negative (04/11/24 4:25 PM) 04/11 21:25 :00 [facility] URINALYSIS UA UROBILINOGEN Negative Yumi unit/dL 0.2 - 1.0 04/11 21:25 :00 [facility] URINALYSIS UA BLOOD Negative 36 (04/11/24 4:25 PM) 04/11 21:25 :00 Result Comment: A hemoglobin concentration of 0.015-0.062 mg/dL is approximately equivalent to 5 -20 intact red blood cells per microliter. [facility] URINALYSIS UA LEUKOCYTES Negative (04/11/24 4:25 PM) 04/11 21:25 :00 [facility] URINALYSIS UA NITRITE Negative (04/11/24 4:25 PM) 04/11 21:25 :00 [facility] URINALYSIS UA PROTEIN Negative mg/dL 04/11 21:25 :00 [facility] URINALYSIS WBC 0-3 /hpf 0 - 3 04/11 15:06 :00 [facility] URINALYSIS RBC 0-2 /hpf 0 - 2 04/11 15:06 :00 [facility] URINALYSIS UA Epithelial Cells None Seen /lpf 04/11 15:06 :00 [facility] URINALYSIS CLARITY Clear (04/11/24 10:06 AM) 04/11 15:06 :00 [facility] URINALYSIS COLOR Straw (04/11/24 10:06 AM) 04/11 15:06 :00 [facility] URINALYSIS SPECIFIC GRAVITY 1.006 1.006 - 1.030 04/11 15:06 :00 [facility] URINALYSIS UA PH 8 *NA* (04/11/24 10:06 AM) 4.5 - 8.0 04/11 15:06 :00 [facility] URINALYSIS UA GLUCOSE Negative mg/dL 04/11 15:06 :00 [facility] URINALYSIS UA KETONES Negative mg/dL 04/11 15:06 :00 [facility] URINALYSIS BILIRUBIN Negative (04/11/24 10:06 AM) 04/11 15:06 :00 [facility] URINALYSIS UA UROBILINOGEN Negative Yumi unit/dL 0.2 - 1.0 04/11 15:06 :00 [facility] URINALYSIS UA BLOOD Small *ABNORMAL* (04/11/24 10:06 AM) 04/11 15:06 :00 [facility] URINALYSIS UA LEUKOCYTES Negative (04/11/24 10:06 AM) 04/11 15:06 :00 [facility] URINALYSIS UA NITRITE Negative (04/11/24 10:06 AM) 04/11 15:06 :00 [facility] URINALYSIS UA PROTEIN Negative mg/dL 04/11 15:06 :00 [facility] GENERAL CHEMISTRY Magnesium 1.61 mg/dL 1.60 - 2.60 04/11 07:14 :00 [facility] GENERAL CHEMISTRY Phosphorus 4.3 mg/dL 2.4 - 5.1 04/11 07:14 :00 [facility] HEMATOLOGY PROFILES Neuts Manual 88.0 % 04/11 07:14 :00 [facility] HEMATOLOGY PROFILES Lymphocytes Manual 5.0 % 04/11 07:14 :00 [facility] HEMATOLOGY PROFILES Monocytes Manual 6.0 % 04/11 07:14 :00 [facility] HEMATOLOGY PROFILES Basophils Manual 1.0 % 04/11 07:14 :00 [facility] HEMATOLOGY PROFILES Absolute Neutrophils Manual 11.22 x10(9)/L 1.70 - 7.00 04/11 07:14 :00 [facility] HEMATOLOGY PROFILES Abs Lymphocytes Manual 0.64 x10(9)/L 0.90 - 2.90 04/11 07:14 :00 [facility] HEMATOLOGY PROFILES Abs Monocytes Manual 0.77 x10(9)/L 0.30 - 0.90 04/11 07:14 :00 [facility] HEMATOLOGY PROFILES Abs Basophils Manual 0.13 x10(9)/L 0.00 - 0.30 04/11 07:14 :00 [facility] HEMATOLOGY PROFILES Elliptocytes (Ovalocytes) 1+ (10-25%) *NA* (04/11/24 2:14 AM) 04/11 07:14 :00 [facility] THERAPEUTI C DRUGS Methotrexate Lvl 0.22 umol/L 04/10 23:44 :00 [facility] GENERAL CHEMISTRY Phosphorus 4.5 mg/dL 2.4 - 5.1 04/10 09:23 :00 [facility] HEMATOLOGY PROFILES % Nucleated RBCs 0.3 % 04/10 09:23 :00 [facility] HEMATOLOGY PROFILES Absolute Nucleated RBCs 0.0 x10(9)/L 0.0 - 0.0 04/10 09:23 :00 Interpretive Data: Normal values not established in patients less than 18 years old. [facility] HEMATOLOGY PROFILES % Neutrophils 70.1 % 04/10 09:23 :00 [facility] HEMATOLOGY PROFILES % Lymphocytes 5.9 % 04/10 09:23 :00 [facility] HEMATOLOGY PROFILES % Monocytes 18.7 % 04/10 09:23 :00 [facility] HEMATOLOGY PROFILES % Eosinophils 0.0 % 04/10 09:23 :00 [facility] HEMATOLOGY PROFILES % Basophils 1.1 % 04/10 09:23 :00 [facility] HEMATOLOGY PROFILES % Immature Granulocytes 4.20 % 0.02 - 0.42 04/10 09:23 :00 [facility] HEMATOLOGY PROFILES Absolute Granulocytes 8.96 x10(9)/L 1.70 - 7.00 04/10 09:23 :00 [facility] HEMATOLOGY PROFILES Abs Lymphocytes 0.75 x10(9)/L 0.90 - 2.90 04/10 09:23 :00 [facility] HEMATOLOGY PROFILES Abs Monocytes 2.39 x10(9)/L 0.30 - 0.90 04/10 09:23 :00 [facility] HEMATOLOGY PROFILES Abs Eosinophils 0.00 x10(9)/L 0.05 - 0.50 04/10 09:23 :00 [facility] HEMATOLOGY PROFILES Abs Basophils 0.14 x10(9)/L 0.00 - 0.30 04/10 09:23 :00 [facility] HEMATOLOGY PROFILES Abs Immature Granulocytes 0.53 x10(9)/L 0.00 - 0.03 04/10 09:23 :00 [facility] THERAPEUTI C DRUGS Methotrexate Lvl 9.39 umol/L 04/09 23:14 :00 [facility] BODY FLUIDS/CSF CSF Cutoff Values See Comment 52 (04/09/24 4:00 PM) 04/09 21:00 :00 Interpretive Data: Cells: Cells Adults Neonates WBC 0-5 WBC/uL 0-30 WBC/uL RBC Absent Absent Neutrophils 0-6% 0-8% Lymphocytes 40-80% 5-35% Monocytes 15-45% 50-90% Eosinophils Rare Rare Note: These Reference ranges or Cutoff Values of normal vs. abnormal are based on the peer reviewed literature and reference texts. We cannot define 95% range for normal patients, as it would require invasive sampling of normal people. [facility] BODY FLUIDS/CSF CSF, Color Colorless (04/09/24 4:00 PM) 04/09 21:00 :00 [facility] BODY FLUIDS/CSF CSF, Spec Appear Clear (04/09/24 4:00 PM) 04/09 21:00 :00 [facility] BODY FLUIDS/CSF CSF, WBC 2 /mcL 04/09 21:00 :00 Interpretive Data: Variation from manual counting may exceed 50% and approach 15-20% using automated method. Pleocytosis in Adults (increased WBC count) may be graded: Mild: 5-50 WBC/uL Moderate: 51-200 WBC/uL Severe: > 200 WBC/uL CSF may have > 60% neutrophils in high-risk neonates without meningitis [facility] BODY FLUIDS/CSF CSF, RBC 51 /mcL 04/09 21:00 :00 Interpretive Data: Variation from manual counting may exceed 50% and approach 15-20% using automated method. [facility] BODY FLUIDS/CSF CSF Cell Count-Neuts % 24 % 04/09 21:00 :00 [facility] BODY FLUIDS/CSF Lymph % CSF 22.0 % 04/09 21:00 :00 [facility] BODY FLUIDS/CSF Monos/Macros /Histios % CSF 54.0 % 04/09 21:00 :00 [facility] BODY FLUIDS/CSF CSF, Protein 53 mg/dL 15 - 45 04/09 19:38 :00 [facility] BODY FLUIDS/CSF CSF, Glucose 104 mg/dL 40 - 70 04/09 19:38 :00 [facility] SPECIAL HEMATOLOGY TESTS Specimen Source CSF [id number] 04/09 19:38 :00 [facility] SPECIAL HEMATOLOGY TESTS Leukemia/Lym phoma Result See Report 64 (04/09/24 2:38 PM) 04/09 19:38 :00 Interpretive Data: See report under Flow Cytometry within Lab Extended tab. [facility] SPECIAL HEMATOLOGY TESTS Flow Cytometry Compliance Comment See Comment 60 (04/09/24 2:38 PM) 04/09 19:38 :00 Interpretive Data: Analyte Specific Reagent: This test was developed and its performance characteristi cs determined by the Clinical Flow Cytometry Laboratory, [facility], [facility]. It has not been cleared or approved by the U.S. Food and Drug Administratio n. The FDA has determined that such clearance is not necessary. This test is used for clinical purposes, and should not be regarded as investigation al or for research. This laboratory is certified under the Clinical Laboratory Improvement Amendment of 1988 (CLIA-88) as qualified to perform high complexity clinical laboratory testing. [facility] IR Lumbar Puncture IR Lumbar Puncture Interventi onal/Angio Accession # Exam Date/Time Procedure Ordering Provider [id number] 04/09/2024 15:00 CDT IR Lumbar Puncture Nakia Almanza MD Reason For Exam (IR Lumbar Puncture) IT CHEMO Report PROCEDURE( S): 1. Lumbar puncture INDICATION : Interventi onal Radiology was consulted for lumbar puncture. COMPARISON : Comparison is made to relevant prior imaging OPERATORS: Attending Physician: Nakia Almanza MD Resident Physician: None Assisting (PA/RA): None CONSENT: The risks and benefits of the procedure as well as alternativ es to the procedure were discussed prior to bringing the patient to the angiograph y suite. Informed consent was obtained. PROCEDURE DETAILS: The patient was brought to the angiograph y suite and positioned prone on the fluoroscop y table. A timeout was completed prior to the procedure according to hospital policy. The lower back was prepped and draped in the usual sterile fashion. An appropriat e skin entry site was marked targeting the L3-L4 interspace . Local anesthetic was administer ed. Under fluoroscop ic guidance, a 20-gauge spinal needle was advanced into the intratheca l space at the L3-L4 level yielding free return of cerebrospi nal fluid. A total of approximat stephie 5 mL cerebrospi nal fluid was obtained. I then administer ed a total of 12 mg methotrexa te intratheca lly without complicati on. The needle was removed. A dressing was applied. The patient tolerated the procedure well without evidence of immediate post-proce dure complicati on and was transferre d to the floor in stable condition. ESTIMATED BLOOD LOSS: < 15 mL SPECIMENS: 5 mL cerebrospi nal fluid COMPLICATI ONS: None IMPRESSION : 1. Technicall y successful lumbar puncture and intratheca l chemothera py, as detailed. I have personally reviewed the images and attest to the contents of Interventi onal/Angio Report this report. * * *Final Report* * * Electronic ally Signed by: Archie BRISCOE, Nakia Gamboa Signed on: 04/10/24 10:37 04/09 14:15 :00 [facility] URINALYSIS Urine Collection Method Clean Catch UR (04/09/24 8:58 AM) 04/09 13:58 :00 [facility] Flow Cytometry Report. Flow Cytometry Report. CLINICAL FLOW CYTOMETRY DEPT OF PATHOLOGY [place] [address] Phone: [phone] Patient: EVELINA DO Collection Date: 04/09/2024 Service: Hematology Oncology Location: Oncology Facility: [facility] [id number] Attending Physician: Leia mcdermott MD : 2000 (Age: 24) Other Physician( s): {None Given} Sex: M Race: White Other Number(s): [id number] [phone] Flow Cytometry Immunophen otypic Report FINAL DIAGNOSIS Limited sample, predominan ce of RBCs. Blast population not detected. By this signature, I attest that the above diagnosis is based upon my personal examinatio n of the tissue and slides (and/or other material indicated in the diagnosis) , per policy. Edward Kraft M.D. Electronic ally Signed Out Procedure Signout Date: 04/13/2024 COMMENTS Contact the signing pathologis t at [phone] if there are questions about this analysis. Clinical History and Diagnosis: Hx. B-ALL Viability 95.7% Immunophen otypic Data Antibodies Performed: KAPPA,BLOOM DA,CD5,CD1 9,CD10,CD2 0,CD3,CD34 ,CD45 FLOW DIFFERENTI AL ANALYSIS: AW PRELIMINAR Y REVIEW: Edward Kraft MD DATE:04/11 TIME:1230 Blasts 0% No blasts are detected. B-cells 0% No B-cells are detected. T-cells 2.4% A population of CD3+ T-cells is present with no abnormal antigen expression . Others A predominan ce of RBCs is present. Small population s of monocytes and neutrophil s are present. Quality Assessment : Specimen received within recommende d guidelines . Expression of residual normal cells functionin g as internal negative and positive controls is evaluate against expected antigenic immunophen otype. Microscopi c Descriptio n: A smear prepared from the submitted specimen and stained with Luo Giemsa stain is examined. Specimen Received CSF Analyte Specific Reagent: This test was developed and its performanc e characteri stics determined by the Clinical Flow Cytometry Laboratory , [facility] rated [facility], [facility]. It has not been cleared or approved by the U.S. Food and Drug Administra tion. The FDA has determined that such clearance is not necessary. This test is used for clinical purposes, and should not be regarded as investigat ional or for research. This laboratory is certified under the Clinical Laboratory Improvemen t Amendment of 1988 (CLIA-88) as qualified to perform high complexity clinical laboratory testing. Performed at [facility], [facility], [place]. [address] 04/09 10:01 :00 Missing Attachment [id number].PDF can be viewed in source system [facility] GENERAL CHEMISTRY Phosphorus 2.7 mg/dL 2.4 - 5.1 04/09 08:24 :00 [facility] HEMATOLOGY PROFILES Bands Manual 2.0 % 04/09 08:24 :00 [facility] HEMATOLOGY PROFILES Lymphocytes Manual 1.0 % 04/09 08:24 :00 [facility] HEMATOLOGY PROFILES Monocytes Manual 6.0 % 04/09 08:24 :00 [facility] HEMATOLOGY PROFILES Metas hp 2.0 % 04/09 08:24 :00 [facility] HEMATOLOGY PROFILES Myelos hp 2.0 % 04/09 08:24 :00 [facility] HEMATOLOGY PROFILES Abs Bands Manual 0.27 x10(9)/L 0.00 - 0.88 04/09 08:24 :00 [facility] HEMATOLOGY PROFILES Abs Lymphocytes Manual 0.13 x10(9)/L 0.90 - 2.90 04/09 08:24 :00 [facility] HEMATOLOGY PROFILES Abs Monocytes Manual 0.80 x10(9)/L 0.30 - 0.90 04/09 08:24 :00 [facility] HEMATOLOGY PROFILES Abs Metas 0.27 x10(9)/L 0.00 - 0.11 04/09 08:24 :00 [facility] HEMATOLOGY PROFILES Abs Myelos 0.27 x10(9)/L 0.00 - 0.11 04/09 08:24 :00 [facility] HEMATOLOGY PROFILES Teardrop 1+ (3-6%) *NA* (04/09/24 3:24 AM) 04/09 08:24 :00 [facility] HEMATOLOGY PROFILES Platelet Clumps Present *NA* (04/09/24 3:24 AM) 04/09 08:24 :00 [facility] Consultation Notes Results Value Date Source Hem Oncology IM Clinic Note Chief Compla int return to care- ALL Diagnoses B-ALL, 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 [employer]ER prophylaxis Alternating IT Methotrexate and IT cytarabine on days 1, 4 of each course of chemotherapy (completed 1B through 4A). History of Present Illness EVELINA DO is a 25 Years y/o Male with a PMH of intellectual disability and B-ALL (Ph-) who presents for return to care of ALL treatment. 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 Do is experiencing numbness and tingling in the fingers which they attribute to the current treatment. Labs on 02/28 reveal low blood counts WBC 1.28, RBC 3.02, Hgb 10.2, Hct 31.5. Patient's sister states that Mr. Do eats a diet of mostly carbohydrates including bananas, mac and cheese, noodles, and peanut butter and jelly sandwiches, partially because he had a dental tooth extraction to treat his history of probably dental infection. Patient's sister tries to get the patient to be active but Mr. oD has been mostly laying in bed this past week. Mr. Do's sister also endorses that the patient likes Ensure. Review of Systems ROS negative except as documented in the HPI. Physical Exam Vitals and Measurements T: 36.1 C HR: 64 BP: 114/70 SpO2: 99% WT: 80.1 kg General: No acute distress Eye: Equal eye movements Respiratory: Nonlabored respirations Neuro: alert, A&O x 3 Psych: Pleasant and cooperative Skin: dry and intact Labs: WBC 1.28, RBC 3.02, Hgb 10.2, Hct 31.5. Assessment/Plan ALL (acute lymphocytic leukemia) - Draw B12, folate, zinc, copper - Start multivitamin - continue fluconazole and TMP-SMX prophylaxis - Reduce the dose of 6MP- 50mg Po TID to BID due to cytopenia and transaminitis. - Changes to POMP regimen: discontinue vincristine, start low-dose (2.5-12.5 mg/m2/day) 6-thioguanine based on Thiopurine Enhanced ALL Maintenance (TEAM) strategy, continue Mercaptopurine 50 mg PO three times daily on Days 1 28, Methotrexate 20 mg/m? PO on Days 1, 8, 15, and 22, PredniSONE 200 mg PO daily on Days 1 5 Pancytopenia: He started his POMP maintaince is 10/2024. Today his labs showed worsening of cytopenia with ANC < 400, hg-10gm/dl. PL- 140,000. We do nutritional work up(Iron , ferritin, TIBC, Vitamin B12, Folate, Copper, Zinic - Also will check TMPT enzyme activity to r/o abnormal metabolism of 6MP. - If TMPT activity is normal we can proceed with adding 6- Thioguanine. Transmits: - Likely drug induced - Reduce the dose of 6-MP. Reference Primo LN, Simeon SHR, Wili JJ, Fannie K. Maintenance therapy for acute lymphoblastic leukemia: basic science and clinical translations. Leukemia. 2021;36(7):7902-0354. This patient was seen under the supervision of Dr. Heike Barrientos and Dr. Renetta Naranjo. Addendum: Patient seen and examined on 02/28/25 with the fellow, Dr. Jackson along with Maxx Weinstein MS3. Labs and clinical history reviewed. Physical examination completed and findings discussed with team. A total of 30 mins used in reviewing test results, creating a treatment plan and completing the documentation process. Evelina is doing much better. But having persistent cytopenia's. He is not eating much even if weight is well maintained. he appears to be a very picky eater. On POMP maintenance at this time. Will need to sent for mutations that may slow 6MP metabolism while also completing a DESAI for nutritional deficiencies. Heike Barrientos MD Problem List/Past Medical History Ongoing B-cell acute lymphoblastic leukemia Intellectual disability Procedure/Surgical History Medications Home acetaminophen-HYDROcodone(acetaminophe n-hydrocodone 325 mg-5 mg oral tablet), 1 Tablet(s), Oral, q6h, PRN gabapentin(gabapentin 100 mg oral capsule), 100 mg= 1 capsule(s), Oral, bid gabapentin(gabapentin 100 mg oral capsule), 100 mg= 1 capsule(s), Oral, bid, 1 refills loperamide(loperamide 2 mg oral tablet), See Instructions, 1 refills mercaptopurine(mercaptopurine 50 mg oral tablet), 50 mg= 1 Tablet(s), Oral, tid mercaptopurine(mercaptopurine 50 mg oral tablet), 50 mg= 1 Tablet(s), Oral, tid mercaptopurine(mercaptopurine 50 mg oral tablet), 50 mg= 1 Tablet(s), Oral, tid methotrexate(methotrexate 2.5 mg oral tablet), 40.6 mg= 16.24 Tablet(s), 20 mg/m2, Oral, qWeek methotrexate(methotrexate 2.5 mg oral tablet), 40.6 mg= 16.24 Tablet(s), 20 mg/m2, Oral, qWeek morphine(MS Contin 15 mg oral tablet, extended release), 15 mg= 1 Tablet(s), Oral, bid sertraline(Zoloft 50 mg oral tablet), 50 mg= 1 Tablet(s), Oral, Daily, 3 refills Allergies NKA Social History Smoking Status Never smoker Alcohol - Denies Alcohol Use Substance Abuse Use:Current Frequency:1-2 times per week Tobacco - Denies Tobacco Use Family History Immunizations Lab Results CBC (02/28/25) WBC L 1.28 Hgb L 10.2 Hct L 31.5 MCV H 104.3 PLT L 140 Comprehensive Metabolic Panel (02/28/25) Na+ 140 K+ 3.8 Cl- 102 CO2 27 Anion gap 15 GLU 94 BUN 7 Creat L 0.6 Estimated GFR f 134 Estimated GFR f Not Calculated Ca 9.5 Alk Phos H 136 AST H 95 ALT H 179 T Bili 1.14 Total Protein 6.1 Alb 3.9 Hemolysis Index 0 Icteria Index 0 Lipemia Index 0 Diagnostic Results Note changed to Oncology clinic note. Bridger Barrientos MD 02/28/2025 Hem Oncology IM Clinic Note Chief Compla int continuation of care Diagnoses B-ALL, Ph-negative [1] Current Treatment Plan to start maintenance therapy with POMP regimen 28-day cycle for 2 years Mercaptopurine 50 mg PO three times daily on Days 1 28 Methotrexate 20 mg/m PO on Days 1, 8, 15, and 22 VinCRIStine 2 mg IV over 5 10 minutes on Day 1 PredniSONE 200 mg PO daily on Days 1 5 Previous Treatment HyperCVAD+R alternating with High-dose Methotrexate and Cytarabine Cycle 1A Day 1 on 03/15/2024 Cycle 1B Day 1 on 04/10/2024 Cycle 2A Day 1 on 05/02/2024 Cycle 2B Day 1 on 05/27/2024 Cycle 3A Day 1 on 06/27/2024 Cycle 3B Day 1 on 07/19/2024 Cycle 4A Day 1 on 08/20/2024 Cycle 4B Day 1 on 09/12/2024. [employer] prophylaxis Alternating IT Methotrexate and IT cytarabine on days 1, 4 of each course of chemotherapy (completed 1B through 4A). Oncologic history 24-year-old male with a medical history significant for a presumed intellectual disability and B cell ALL which was diagnosed in 02/2024. He underwent a BM biopsy on 03/15/24 which was consistent with a diagnosis of B ALL with 90 % blasts. Initial labs were significant for WBC count 69.4 K, hemoglobin of 5 g/dl, platelet of 58 K. Peripheral blood smear showed atypical mononuclear cells, most probably blasts, with no signs of Nancy rods. 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 MRI of the brain is negative for features indicative of T[employer] E[employer]ST[employer]ER involvement or acute intracranial abnormalities. Scrotal ultrasound showed normal scrotum and testes with no evidence of testicular involvement. Bone marrow biopsy by IR on 03/15/2024 showed B-ALL, NGS showed TCF3-PBX1 fusion and an NSD2 (WHSC1 or MMSET) [id number] alteration (VAF 32.32%) with 90% blasts. Started on HyperCVAD+R Part A cycle 1 on 03/15/2024. Bone marrow biopsy done on 04/04/2024 before Cycle 1B; MRD negative, ClonoSEQ B-cell tracking detected residual sequences (three residual clonal cells per million nucleated cells). [2] HPI (Interval History) Patient presents for follow-up. Reports that he is doing well overall. He denies any fever, chills, lymphadenopathy, night sweats, pain. States that his appetite is fine. He denies any other concerns today. Review of Systems Complete Review of Systems performed and negative except as otherwise noted in HPI. Physical Exam Vitals and Measurements T: 36.9 C HR: 88 BP: 116/71 SpO2: 99% WT: 80.8 kg General: In no apparent distress. HEENT: Normocephalic. Atraumatic Cardiovascular: RRR. Normal perfusion. Lungs: Non labored breathing. Clear to auscultation bilaterally. Abdomen: Non distended. Non tender. Extremities: No edema. Neuro: No gross focal neurological deficits Psych: Appropriate mood and affect. 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 He underwent a BM biopsy on 03/15/24 which was consistent with a diagnosis of B ALL with 90 % blasts. He completed total of 8 cycles of HyperCVAD+R alternating with High-dose Methotrexate and Cytarabine in 08/2024. He also received alternating IT Methotrexate and IT cytarabine on days 1, 4 of each course of chemotherapy (1B through 4A) for T[employer]ER prophylaxis. Bone marrow biopsy on 09/06/24 showed no morphologic evidence of residual leukemia and clonal CTP cell tracking detected no residual sequences. Plan to start patient on maintenance treatment with POMP regimen. Plan -Start maintenance therapy with POMP regimen for 2 years. Treatment regimen as below. -Will submit new [facility] treatment request form for vincristine -Will refer patient to medical oncology in [place] to establish care for monthly vincristine -Recommended to stop all antimicrobial prophylaxis -Advised to see dentist as soon as possible for possible dental infection -CBC and CMP once a month and results to be faxed to Dr. Barrientos -Return to [facility] for first dose of maintenance vincristine when scheduled Treatment regimen 28-day cycle for 2 years Mercaptopurine 50 mg PO three times daily on Days 1 28 Methotrexate 20 mg/m PO on Days 1, 8, 15, and 22 Vincristine 2 mg IV over 5 10 minutes on Day 1 Prednisone 200 mg PO daily on Days 1 ? 5 Reference Paola GUERRA, [place] S, Zhen TL, et al. Results of treatment with hyper-CVAD, a dose-intensive regimen, in adult acute lymphocytic leukemia. J Clin Oncol. 2000;18(3):547-561. doi:10.1200/JCO.2000.18.3.547 I have sent a prescription for mercaptopurine, methotrexate and prednisone to his [facility] pharmacy for Cycle 1. RTC in 4 months with labs Patient staffed with Dr. Barrientos. Addendum: Patient seen and examined on 10/25/24 with the fellow, Dr. Gordon. Labs and clinical history reviewed. Physical examination completed and findings discussed with team. A total of 40 mins used in reviewing test results, creating a treatment plan and completing the documentation process. Evelina has done well ad is in CR with no molecular evidence of disease. Considering this will now transition him to maintenance therapy with POM regimen which will be given for atleast 2 years. Heike Barrientos MD Problem List/Past Medical History Ongoing B-cell acute lymphoblastic leukemia Intellectual disability Procedure/Surgical History ear tubes tonsillectomy Medications acetaminophen-HYDROcodone(acetaminophe n-hydrocodone 325 mg-5 mg oral tablet), 1 Tablet(s), Oral, q6h, PRN gabapentin(gabapentin 100 mg oral capsule), 100 mg= 1 capsule(s), Oral, bid gabapentin(gabapentin 100 mg oral capsule), 100 mg= 1 capsule(s), Oral, bid, 1 refills loperamide(loperamide 2 mg oral tablet), See Instructions, 1 refills morphine(MS Contin 15 mg oral tablet, extended release), 15 mg= 1 Tablet(s), Oral, bid sertraline(Zoloft 50 mg oral tablet), 50 mg= 1 Tablet(s), Oral, Daily, 3 refills Allergies NKA Social History Smoking Status Never smoker Alcohol - Denies Alcohol Use Substance Abuse Use:Current Frequency:1-2 times per week Tobacco - Denies Tobacco Use Family History Immunizations Health Maintenance Lab Results CBC (10/25/24) WBC 4.24 Hgb L 10.6 Hct L 35.2 MCV H 107.6 PLT 261 Comprehensive Metabolic Panel (10/25/24) Na+ 141 K+ 3.9 Cl- 105 CO2 28 Anion gap 12 GLU 78 BUN 7 Creat L 0.5 Estimated GFR f 144 Estimated GFR f Not Calculated Ca 9.0 Alk Phos 122 AST 27 ALT 25 T Bili 0.30 Total Protein 6.1 Alb 3.9 Hemolysis Index 0 Icteria Index 0 Lipemia Index 0 Diagnostic Results FINAL DIAGNOSIS (10/01/2024): 1. PERIPHERAL BLOOD, LUO S STAINED FILM: Macrocytic anemia, neutrophilia with left shift, lymphopenia, monocytopenia, eosinopenia 2. BONE MARROW, ASPIRATION AND BIOPSY: Variably cellular bone marrow (~10-50%) with predominance of myeloids; no morphologic evidence of residual leukemia (ICC 2021) SITE: Right iliac crest ADEQUACY: Adequate 3. BONE MARROW, PARAFFIN IMMUNOPEROXIDASE STUDIES: CD79a highlights few scattered B cells and plasma cells. CD10 highlights background granulocytes and stromal cells. CD20 is negative. TdT highlights scattered positive cells. 4. BONE MARROW, FLOW CYTOMETRIC ANALYSIS: No abnormal B-cell precursor population is detected (MRD-negative). Predominant granulocyte population in various stages of maturation with no abnormal antigen expression is identified. No phenotypically aberrant T-cell population or increase in myeloid blasts identified. No mature B-cell population detected. 5. BONE MARROW, CYTOGENETICS: Chromosome analysis identified a normal male karyotype, 46,XY[20] 6. BONE MARROW, MOLECULAR GENETIC STUDIES: B-ALL FISH is normal; ClonoSeq B-cell tracking detected no residual sequences [3] Visit Information Provider Names Attending Physician: Heike Barrientos MD Referring Physician: Heike Barrientos MD Original Referring Provider: Heike Barrientos MD Visit Date Visit Date: 10/25/2024 [1-2] Oncology Office Visit Note *; Lan Frazier MD 09/12/2024 08:59 DIRECT SERVICE PROFESSIONAL [1-2] Oncology Office Visit Note *; aLn Frazier MD 09/12/2024 08:59 DIRECT SERVICE PROFESSIONAL [3] Histology [facility]; Morgan BRISCOE [facility] 09/16/2024 14:49 DIRECT SERVICE PROFESSIONAL 10/25/2024 Hem Oncology IM Consult Note Subjective Chief Complaint No acute events overnight. Patient reports pain at the bone marrow site. Denies any other concerns. Objective Vitals and Measurements T: 36.5 C TMIN: 36.5 C TMAX: 36.9 C HR: 80 RR: 14 BP: 101/55 SpO2: 98% Physical Exam General: Awake and alert. In no apparent distress. HEENT: EOMI. Normocephalic. Moist mucous membranes. Cardiovascular: RRR. No murmurs, rubs or gallops appreciated. Lungs: CTA bilaterally. No wheezes, rales or rhonchi. Abdomen: non tender, non-distended. Normoactive bowel sounds. Extremities: No edema. BM site dressing C/D/I. Neuro: No gross focal deficits Psych: Appropriate mood and affect. Lab Results CBC (09/17/24) WBC 8.00 Hgb L 8.4 Hct L 26.7 MCV H 104.7 PLT 225 Auto Differential % nRBC 0.0 Absolute nRBC 0.0 % Neutrophils 95.3 Absolute Neut H 7.62 % Im Granulocyt H 1.10 Absolute Im Gra H 0.09 % Lymphocytes 1.4 % Monocytes 2.1 % Eosinophils 0.0 % Basophils 0.1 Comprehensive Metabolic Panel (09/17/24) Na+ 138 K+ 4.2 Cl- 102 CO2 29 Anion gap 11 GLU 116 BUN 10 Creat L 0.5 Estimated GFR f 146 Estimated GFR f Not Calculated Ca 8.8 Alk Phos 113 AST 33 ALT H 153 T Bili 0.40 Total Protein 5.7 Alb 3.4 Hemolysis Index 0 Icteria Index 0 Lipemia Index 0 Diagnostic Results Assessment/Plan Patient Summary 24-year-old male with a medical history significant for a presumed intellectual disability and B cell ALL which was diagnosed in 02/2024. He underwent a BM biopsy on 03/15/24 which was consistent with a diagnosis of B ALL with 90 % blasts. Patient received HyperCVAD cycle 1A and 1B inpatient with cycle 1B finishing on 04/16/24. He was admitted on 04/26/24 for a febrile illness suspected to be secondary to a dental infection and he was originally due for Cycle 2A on 04/29/24 which was initiated on 05/02/24. He was admitted to neurosurgery on 05/23/2024 and had [place] reservoir placement. He was scheduled to start HyperCVAD 2B on 05/24/24 which was delayed due to transaminitis and started on 05/27/24. Admitted on 09/12 for HyperCVAD+R Cycle 4B. B-cell Acute lymphoblastic leukemia Initial labs were significant for WBC count 69.4 K, hemoglobin of 5 g/dl, platelet of 58 K. Peripheral blood smear showed atypical mononuclear cells, most probably blasts, with no signs of Nancy rods. 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 MRI of the brain is negative for features indicative of T[employer]ST[employer]ER involvement or acute intracranial abnormalities. Scrotal ultrasound showed normal scrotum and testes with no evidence of testicular involvement. Bone marrow biopsy by IR on 03/15/2024 showed B-ALL, NGS showed TCF3-PBX1 fusion and an NSD2 (WHSC1 or MMSET) [id number] alteration (VAF 32.32%) with 90% blasts. Started on HyperCVAD+R Part A cycle 1 on 03/15/2024. Bone marrow biopsy done on 04/04/2024 before Cycle 1B; MRD negative, ClonoSEQ B-cell tracking detected residual sequences (three residual clonal cells per million nucleated cells). - Admitted on 09/12 as planned for HyperCVAD+R 4B - Received IV Methotrexate on 09/12/24. - LFT's improving. Methotrexate level down to 0.08. Started IV Cytarabine 09/15 Q12 hrs for 4 doses. - Proceed with Rituximab 375 mg/m2 IV today. - Neulasta script sent. To be delivered to bedside before discharge. - Monitor CBC and CMP daily - S/p Bone marrow biopsy on 09/16 by IR Chemotherapy regimen. Hyper CVAD+R Cycle 4 B Methotrexate 200 mg/m2 IV over 2 hours on Day 1 followed by 800 mg/m2; IV continuous infusion over 22 hours on Day 1 Cytarabine (age <60 years) 3,000 mg/m2; IV over 3 hours every 12 hours for 4 doses on Days 2 and 3 Alkaline hydration is required pre- and post-administration of high-dose methotrexate. Leucovorin 50 mg IV over 15 minutes on Day 2 administered 12 hours after completion of 24-hour methotrexate infusion followed by 15 mg IV over 15 minutes or PO every 6 hours for at least 8 doses (until methotrexate serum concentration is <0.05 micromol/L) Leucovorin dose should be titrated for delayed methotrexate clearance. Rituximab 375 mg/m2 IV (scheduled on 09/17; inpatient) [employer] prophylaxis - Alternated IT Methotrexate and IT cytarabine on days 1, 4 of each course of chemotherapy (completed 1B through 4A). Supportive medications - Neulasta to be delivered to bedside on 09/17/24 and to be administered at home on 09/18/24. Antibiotic prophylaxis: - Acyclovir 400 mg PO BID While on treatment - Levaquin 500 mg PO daily while on treatment - Fluconazole 400 mg PO daily while on treatment . Hold due to transaminitis. - Bactrim DS PO MWF while on treatment . - Augmentin 875/125 BID (due to dental infection) Anemia secondary to chemotherapy and/or underlying disease: - Transfuse RBC for Hgb < 7g/dl. Use irradiated blood products only. - Hgb 8.4 today, no need for transfusion Transaminitis, improving -Continue to hold fluconazole -RUQ USG showed cholelithiasis without any cholecystitis, and diffuse hepatic steatosis. -HIDA scan unremarkable Patient staffed with Dr. Horne. Attestation by Coleen MD, [place] Patient was seen and examined on 09/17/24 with Fellow, which included but was not limited to personally reviewing history, previous encounters within our healthcare system when available, external records when appropriate, performing the rush aspects of the exam, reviewing orders, providing education to the patient/caregiver, and documentation in the medical record. This excludes any procedure time that may have been performed. All occurred on date of service. I discussed the patient's management with the fellow Dr Gordon. I reviewed the note by the fellow and agree with those documented findings and plan of care. 09/17/2024 Op/Procedure Note Procedure Attending Physician: Al Farrar MD Service: Interventional Radiology Procedure Performed: 1. CT guided BMBX 2. _ 3. _ 4. _ 5. _ Conscious sedation for a total of 30 minutes. Sedatives used: [x] Versed [x] Fentanyl [_] Benadryl [_] Dilauded [x] Lidocaine with/without Epinephrine Procedure Performed By: Attending Physician: Al Farrar MD Assisting: Description of Procedure Pre Op Diagnosis: B-cell acute lymphoblastic leukemia Intellectual disability Post Op Diagnosis: B-cell acute lymphoblastic leukemia Intellectual disability Location of Procedure: Radiology Informed Consent Obtained: Yes, Risk/Benefits discussed Monitoring During Procedure: [x] Blood Pressure Monitoring [x] Cardiac Monitoring [x] Continuous Pulse Oximetry [x] Heart Rate [x] Respiratory Rate Prep and Technique: Usual Standard Manner. Expediter Clerk Prep: [x] Cap, [x] Eye protection, [x] Mask, [x] Sterile gloves, [x] Sterile gowns. Patient Prep: [x] Prepped in sterile manner, [_] Prep solution +, [x] Draped in sterile manner. Anesthesia: IV Sedation: [x] Versed = 4mg [x] Fentanyl = 250mcg Local: 1% Lidocaine without Epinephrine Position of Patient: Prone Procedure Findings: Immediate Post Op Note: Uncomplicated bmbx See radiology report when available for additional details. Complications: none. Condition: Stable Procedure Tolerated: Fair Estimated Blood Lost: Minimal Complications: None. Drains: None. Specimen: None. Attending Physician Present For: Entire Procedure 09/16/2024 Hem Oncology IM Consult Note Subjective Chief Complaint No acute events overnight. Patient reports abdominal pain has improved. Denies any other concerns. Objective Vitals and Measurements T: 36.5 C TMIN: 36.5 C TMAX: 36.8 C HR: 87 RR: 16 BP: 124/69 SpO2: 96% Physical Exam General: Awake and alert. In no apparent distress. HEENT: EOMI. Normocephalic. Moist mucous membranes. Cardiovascular: RRR. No murmurs, rubs or gallops appreciated. Lungs: CTA bilaterally. No wheezes, rales or rhonchi. Abdomen: non tender, non-distended. Normoactive bowel sounds. Extremities: No edema. Neuro: No gross focal deficits Psych: Appropriate mood and affect. Lab Results CBC (09/16/24) WBC 8.38 Hgb L 9.4 Hct L 29.4 MCV H 102.1 PLT 230 Auto Differential % nRBC 0.0 Absolute nRBC 0.0 % Neutrophils 94.4 Absolute Neut H 7.91 % Im Granulocyt H 1.30 Absolute Im Gra H 0.11 % Lymphocytes 2.3 % Monocytes 2.0 % Eosinophils 0.0 % Basophils 0.0 Comprehensive Metabolic Panel (09/16/24) Na+ 139 K+ 4.2 Cl- 103 CO2 29 Anion gap 11 GLU 109 BUN 10 Creat L 0.5 Estimated GFR f 147 Estimated GFR f Not Calculated Ca 9.5 Alk Phos 122 AST H 53 ALT H 209 T Bili 0.57 Total Protein 6.2 Alb 3.6 Hemolysis Index 0 Icteria Index 0 Lipemia Index 0 Diagnostic Results Assessment/Plan Patient Summary 24-year-old male with a medical history significant for a presumed intellectual disability and B cell ALL which was diagnosed in 02/2024. He underwent a BM biopsy on 03/15/24 which was consistent with a diagnosis of B ALL with 90 % blasts. Patient received HyperCVAD cycle 1A and 1B inpatient with cycle 1B finishing on 04/16/24. He was admitted on 04/26/24 for a febrile illness suspected to be secondary to a dental infection and he was originally due for Cycle 2A on 04/29/24 which was initiated on 05/02/24. He was admitted to neurosurgery on 05/23/2024 and had [place] reservoir placement. He was scheduled to start HyperCVAD 2B on 05/24/24 which was delayed due to transaminitis and started on 05/27/24. Admitted on 09/12 for HyperCVAD+R Cycle 4B. B-cell Acute lymphoblastic leukemia Initial labs were significant for WBC count 69.4 K, hemoglobin of 5 g/dl, platelet of 58 K. Peripheral blood smear showed atypical mononuclear cells, most probably blasts, with no signs of Nancy rods. 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 MRI of the brain is negative for features indicative of T[employer]ER involvement or acute intracranial abnormalities. Scrotal ultrasound showed normal scrotum and testes with no evidence of testicular involvement. Bone marrow biopsy by IR on 03/15/2024 showed B-ALL, NGS showed TCF3-PBX1 fusion and an NSD2 (WHSC1 or MMSET) [id number] alteration (VAF 32.32%) with 90% blasts. Started on HyperCVAD+R Part A cycle 1 on 03/15/2024. Bone marrow biopsy done on 04/04/2024 before Cycle 1B; MRD negative, ClonoSEQ B-cell tracking detected residual sequences (three residual clonal cells per million nucleated cells). - Admitted on 09/12 as planned for HyperCVAD+R 4B - Received IV Methotrexate on 09/12/24. - LFT's improving. Methotrexate level down to 0.08. Started IV Cytarabine 09/15 Q12 hrs for 4 doses. - Rituximab 375 mg/m2 IV to be administered inpatient on 09/17. - Neulasta script sent. To be delivered to bedside before discharge. - Monitor CBC and CMP daily - S/p Bone marrow biopsy on 09/16 by IR - Continue to hold Bactrim and monitor Methotrexate levels. - Pain regimen as per primary team. - Add PPI. Chemotherapy regimen. Hyper CVAD+R Cycle 4 B Methotrexate 200 mg/m2 IV over 2 hours on Day 1 followed by 800 mg/m2; IV continuous infusion over 22 hours on Day 1 Cytarabine (age <60 years) 3,000 mg/m2; IV over 3 hours every 12 hours for 4 doses on Days 2 and 3 Alkaline hydration is required pre- and post-administration of high-dose methotrexate. Leucovorin 50 mg IV over 15 minutes on Day 2 administered 12 hours after completion of 24-hour methotrexate infusion followed by 15 mg IV over 15 minutes or PO every 6 hours for at least 8 doses (until methotrexate serum concentration is <0.05 micromol/L) Leucovorin dose should be titrated for delayed methotrexate clearance. Rituximab 375 mg/m2 IV (scheduled on 09/17; inpatient) [employer] prophylaxis - Alternated IT Methotrexate and IT cytarabine on days 1, 4 of each course of chemotherapy (completed 1B through 4A). Supportive medications - Neulasta to be delivered to bedside on 09/17/24 and to be administered at home on 09/18/24. Antibiotic prophylaxis: - Acyclovir 400 mg PO BID While on treatment - Levaquin 500 mg PO daily while on treatment - Fluconazole 400 mg PO daily while on treatment . Hold due to transaminitis. - Bactrim DS PO MWF while on treatment . Hold until MTX clears. - Augmentin 875/125 BID (due to dental infection) Anemia secondary to chemotherapy and/or underlying disease: - Transfuse RBC for Hgb < 7g/dl. Use irradiated blood products only. - Hgb 9.4 today, no need for transfusion Transaminitis, improving -Continue to hold fluconazole -RUQ USG showed cholelithiasis without any cholecystitis, and diffuse hepatic steatosis. -HIDA scan unremarkable Patient staffed with Dr. Freedman. I personally saw and evaluated the patient on 09/16/[address] Gordon. I independently performed rush portions of history, physical, evaluation and management and discussed the management with the fellow. I reviewed history and labs and assessment and plan and reviewed the fellow&rsquo;s note and it&rsquo;s content. 09/16/2024 Hem Oncology IM Consult Note Subjective Patient seen and examined at bedside today morning. Endorses abdominal pain and generalized body aches. Endorses one episode of watery non-bloody diarrhea last night. Asks for pain medications to be given every 4 hrs instead of every 6 hrs. Denies fevers, chills, chest pain, SOB, N/V, numbness tingling in extremities. LFTs have been downtrending and Methotrexate level has come down to 0.08. Review of Systems A 14 point review of systems was obtained and pertinent negatives and positives are noted in the HPI. Objective Vitals and Measurements T: 36.8 C TMIN: 36.6 C TMAX: 36.8 C HR: 89 RR: 16 BP: 118/71 SpO2: 98% Physical Exam General - not in acute distress HEENT - PERRLA, moist, no palpable lymph nodes Respiratory: CTA bilateral lung law, no rhonchi, wheezing Cardiac: RRR, No murmurs, gallops Abdomen: non distended, BS+ in all 4 quadrants, Tenderness to palpation more in the periumbilical region MSK: no rash, swelling or peripheral edema Neuro: AXOX3, no clear focal deficits appreciated Psych: appropriate mood, cooperative Lab Results CBC (09/15/24) WBC 5.85 Hgb L 7.6 Hct L 24.5 MCV H 104.7 PLT 168 Auto Differential % nRBC 0.0 Absolute nRBC 0.0 % Neutrophils 75.6 Absolute Neut 4.42 % Im Granulocyt H .90 Absolute Im Gra H 0.05 % Lymphocytes 6.3 % Monocytes 14.2 % Eosinophils 2.7 % Basophils 0.3 Comprehensive Metabolic Panel (09/15/24) Na+ 139 K+ L 3.0 Cl- L 92 CO2 C >40 Anion gap Unable to Calcul GLU 89 BUN 7 Creat L 0.6 Estimated GFR f 141 Estimated GFR f Not Calculated Ca L 7.3 Alk Phos 103 AST H 110 ALT H 243 T Bili L 0.25 Total Protein L 4.6 Alb L 2.8 Hemolysis Index 0 Icteria Index 0 Lipemia Index 0 Assessment/Plan Patient Summary 24-year-old male with a medical history significant for a presumed intellectual disability and B cell ALL which was diagnosed in 02/2024. He underwent a BM biopsy on 03/15/24 which was consistent with a diagnosis of B ALL with 90 % blasts. Patient received HyperCVAD cycle 1A and 1B inpatient with cycle 1B finishing on 04/16/24. He was admitted on 04/26/24 for a febrile illness suspected to be secondary to a dental infection and he was originally due for Cycle 2A on 04/29/24 which was initiated on 05/02/24. He was admitted to neurosurgery on 05/23/2024 and had [place] reservoir placement. He was scheduled to start HyperCVAD 2B on 05/24/24 which was delayed due to transaminitis and started on 05/27/24. Admitted on 09/12 for HyperCVAD+R Cycle 4B. B-cell Acute lymphoblastic leukemia Initial labs were significant for WBC count 69.4 K, hemoglobin of 5 g/dl, platelet of 58 K. Peripheral blood smear showed atypical mononuclear cells, most probably blasts, with no signs of Nancy rods. 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 MRI of the brain is negative for features indicative of T[employer]ER involvement or acute intracranial abnormalities. Scrotal ultrasound showed normal scrotum and testes with no evidence of testicular involvement. Bone marrow biopsy by IR on 03/15/2024 showed B-ALL, NGS showed TCF3-PBX1 fusion and an NSD2 (WHSC1 or MMSET) [id number] alteration (VAF 32.32%) with 90% blasts. Started on HyperCVAD+R Part A cycle 1 on 03/15/2024. Bone marrow biopsy done on 04/04/2024 before Cycle 1B; MRD negative, ClonoSEQ B-cell tracking detected residual sequences (three residual clonal cells per million nucleated cells). -Admitted on 09/12 as planned for HyperCVAD+R 4B - Received IV Methotrexate on 09/12/24. - LFT's improving. Methotrexate level down to 0.08. Proceed with IV Cytarabine today Q12 hrs for 4 doses. - Rituximab 375 mg/m2 IV and Neulasta scheduled on 09/17. - Monitor CBC and CMP daily - Bone marrow biopsy scheduled for 09/16 with IR - Continue to hold Bactrim and monitor Methotrexate levels. - Pain regimen as per primary team. - Add PPI. Chemotherapy regimen. Hyper CVAD+R Cycle 4 B Methotrexate 200 mg/m2 IV over 2 hours on Day 1 followed by 800 mg/m2; IV continuous infusion over 22 hours on Day 1 Cytarabine (age <60 years) 3,000 mg/m2; IV over 3 hours every 12 hours for 4 doses on Days 2 and 3 Alkaline hydration is required pre- and post-administration of high-dose methotrexate. Leucovorin 50 mg IV over 15 minutes on Day 2 administered 12 hours after completion of 24-hour methotrexate infusion followed by 15 mg IV over 15 minutes or PO every 6 hours for at least 8 doses (until methotrexate serum concentration is <0.05 micromol/L) Leucovorin dose should be titrated for delayed methotrexate clearance. Rituximab 375 mg/m2 IV (scheduled on 09/17) T[employer]ER prophylaxis - Alternated IT Methotrexate and IT cytarabine on days 1, 4 of each course of chemotherapy (completed 1B through 4A). Supportive medications - Neulasta scheduled on 09/17/24 Antibiotic prophylaxis: - Acyclovir 400 mg PO BID While on treatment - Levaquin 500 mg PO daily while on treatment - Fluconazole 400 mg PO daily while on treatment . Hold due to transaminitis. - Bactrim DS PO MWF while on treatment . Hold until MTX clears. - Augmentin 875/125 BID (due to dental infection) Anemia secondary to chemotherapy and/or underlying disease: - Transfuse RBC for Hgb < 7g/dl. Use irradiated blood products only. - Hgb 7.6 today, no need for transfusion Transaminitis, improving -Continue to hold fluconazole -RUQ USG showed cholelithiasis without any cholecystitis, and diffuse hepatic steatosis. - May consider HIDA Scan for further evaluation. Patient staffed with Dr. Freedman on 09/15/24 Alycia Tena MD PGY-4, Hematology/Oncology [facility] I personally saw and evaluated the patient on 09/15/[address] Tena. I independently performed rush portions of history, physical, evaluation and management and discussed the management with the fellow. Will need to continue to monitor AST ALT and methotrexate level. Will continue with treatment with cytarabine today dose reduction per protocol given elevated liver enzymes and symptoms.. I reviewed history and labs and assessment and plan and reviewed the fellow&rsquo;s note and it&rsquo;s content. 09/15/2024 Hem Oncology IM Consult Note Subjective Chief Complaint No acute events overnight. Patient reports feeling tired. States he is trying to keep himself hydrated. Denies fever or chills. Discussed plan to not give Cytarabine today and consider giving it tomorrow based on his liver function tests. Objective Vitals and Measurements T: 36.6 C TMIN: 36.2 C TMAX: 36.6 C HR: 98 RR: 16 BP: 122/71 SpO2: 96% Physical Exam General: Awake and alert. In no apparent distress. HEENT: EOMI. Normocephalic. Moist mucous membranes. Cardiovascular: RRR. No murmurs, rubs or gallops appreciated. Lungs: CTA bilaterally. No wheezes, rales or rhonchi. Abdomen: TTP in RUQ, non-distended. Normoactive bowel sounds. Extremities: No edema. Neuro: No gross focal deficits Psych: Appropriate mood and affect. Lab Results CBC (09/14/24) WBC H 10.56 Hgb L 8.9 Hct L 28.6 MCV H 103.6 PLT 182 Auto Differential % nRBC 0.0 Absolute nRBC 0.0 % Neutrophils 77.5 Absolute Neut H 8.18 % Im Granulocyt H .90 Absolute Im Gra H 0.10 % Lymphocytes 4.8 % Monocytes 16.7 % Eosinophils 0.0 % Basophils 0.1 Basic Metabolic Panel (07/01/24) Na+ 139 K+ 3.9 Cl- 107 CO2 28 Anion gap 8 GLU 114 BUN 14 Creat L 0.5 Estimated GFR f 149 Estimated GFR f Not calculated Ca 9.7 Hemolysis Index 0 Icteria Index 0 Lipemia Index 0 Diagnostic Results Assessment/Plan Patient Summary 24-year-old male with a medical history significant for a presumed intellectual disability and B cell ALL which was diagnosed in 02/2024. He underwent a BM biopsy on 03/15/24 which was consistent with a diagnosis of B ALL with 90 % blasts. Patient received HyperCVAD cycle 1A and 1B inpatient with cycle 1B finishing on 04/16/24. He was admitted on 04/26/24 for a febrile illness suspected to be secondary to a dental infection and he was originally due for Cycle 2A on 04/29/24 which was initiated on 05/02/24. He was admitted to neurosurgery on 05/23/2024 and had [place] reservoir placement. He was scheduled to start HyperCVAD 2B on 05/24/24 which was delayed due to transaminitis and started on 05/27/24. Admitted on 09/12 for HyperCVAD+R Cycle 4B. B-cell Acute lymphoblastic leukemia Initial labs were significant for WBC count 69.4 K, hemoglobin of 5 g/dl, platelet of 58 K. Peripheral blood smear showed atypical mononuclear cells, most probably blasts, with no signs of Nancy rods. 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 MRI of the brain is negative for features indicative of T[employer]ER involvement or acute intracranial abnormalities. Scrotal ultrasound showed normal scrotum and testes with no evidence of testicular involvement. Bone marrow biopsy by IR on 03/15/2024 showed B-ALL, NGS showed TCF3-PBX1 fusion and an NSD2 (WHSC1 or MMSET) [id number] alteration (VAF 32.32%) with 90% blasts. Started on HyperCVAD+R Part A cycle 1 on 03/15/2024. Bone marrow biopsy done on 04/04/2024 before Cycle 1B; MRD negative, ClonoSEQ B-cell tracking detected residual sequences (three residual clonal cells per million nucleated cells). -Admitted on 09/12 as planned for HyperCVAD+R 4B -Continues to be on the IV methotrexate today as it was started late on 09/12 -Monitor CBC and CMP daily -Bone marrow biopsy scheduled for 09/16 with IR Chemotherapy regimen. Hyper CVAD+R Cycle 4 B Methotrexate 200 mg/m2 IV over 2 hours on Day 1 followed by 800 mg/m2; IV continuous infusion over 22 hours on Day 1 Cytarabine (age <60 years) 3,000 mg/m2; IV over 3 hours every 12 hours for 4 doses on Days 2 and 3 Alkaline hydration is required pre- and post-administration of high-dose methotrexate. Leucovorin 50 mg IV over 15 minutes on Day 2 administered 12 hours after completion of 24-hour methotrexate infusion followed by 15 mg IV over 15 minutes or PO every 6 hours for at least 8 doses (until methotrexate serum concentration is <0.05 micromol/L) Leucovorin dose should be titrated for delayed methotrexate clearance. Rituximab 375 mg/m2 IV (scheduled on 09/17) T[employer]ER prophylaxis - Alternated IT Methotrexate and IT cytarabine on days 1, 4 of each course of chemotherapy (completed 1B through 4A). Supportive medications - Neulasta scheduled on 09/17/24 Antibiotic prophylaxis: - Acyclovir 400 mg PO BID While on treatment - Levaquin 500 mg PO daily while on treatment - Fluconazole 400 mg PO daily while on treatment . Hold due to transaminitis. - Bactrim DS PO MWF while on treatment​. Hold until MTX clears. - Augmentin 875/125 BID (due to dental infection) Anemia secondary to chemotherapy and/or underlying disease: - Transfuse RBC for Hgb < 7g/dl. Use irradiated blood products only. - Hgb 8.9 today, no need for transfusion Transaminitis, worsening - Continue to hold fluconazole - Recommend RUQ US - Will delay cytarabine by 1 day - Continue to monitor Patient seen and staffed with Dr. Freedman I personally saw and evaluated the patient on 09/14/2024 with . I independently performed rush portions of history, physical, evaluation and management and discussed the management with the fellow. At this time he does have fatigue and mild abdominal pain will need to continue to monitor of unknown etiology he did also previously have abdominal pain with previous treatments. At this time no signs or symptoms of infection. Will also obtain ultrasound of the abdomen will additionally need methotrexate level and continue with bicarb and leucovorin. I reviewed history and labs and assessment and plan and reviewed the fellow&rsquo;s note and it&rsquo;s content. 09/14/2024 Hem Oncology IM Consult Note Chief Compl aint Reason for Consultation B-ALL Requesting Provider Dr. Kirkland History of Present Illness 24-year-old male with a medical history significant for a presumed intellectual disability and B cell ALL which was diagnosed in 02/2024. He underwent a BM biopsy on 03/15/24 which was consistent with a diagnosis of B ALL with 90 % blasts. Patient received HyperCVAD cycle 1A and 1B inpatient with cycle 1B finishing on 04/16/24. He was admitted on 04/26/24 for a febrile illness suspected to be secondary to a dental infection and he was originally due for Cycle 2A on 04/29/24 which was initiated on 05/02/24. He was admitted to neurosurgery on 05/23/2024 and had [place] reservoir placement. He was scheduled to start HyperCVAD 2B on 05/24/24 which was delayed due to transaminitis and started on 05/27/24. Admitted on 09/12 for HyperCVAD+R Cycle 4B. Reports doing well since last discharge. Denies any recent infections, fever, chills. Denies any other concerns. Review of Systems Complete Review of Systems performed and negative except as otherwise noted in HPI. Physical Exam Vitals and Measurements T: 36.7 C TMIN: 36.5 C TMAX: 36.9 ?C HR: 92 RR: 16 BP: 126/66 SpO2: 96% WT: 71.7 kg BMI: 21.5 General: Awake and alert. In no apparent distress. HEENT: EOMI. Normocephalic. Moist mucous membranes. Cardiovascular: RRR. No murmurs, rubs or gallops appreciated. Lungs: CTA bilaterally. No wheezes, rales or rhonchi. Abdomen: Non-tender, non-distended. Normoactive bowel sounds. Extremities: No edema. Neuro: No gross focal deficits Psych: Appropriate mood and affect. Assessment/Plan 24-year-old male with a medical history significant for a presumed intellectual disability and B cell ALL which was diagnosed in 02/2024. He underwent a BM biopsy on 03/15/24 which was consistent with a diagnosis of B ALL with 90 % blasts. Patient received HyperCVAD cycle 1A and 1B inpatient with cycle 1B finishing on 04/16/24. He was admitted on 04/26/24 for a febrile illness suspected to be secondary to a dental infection and he was originally due for Cycle 2A on 04/29/24 which was initiated on 05/02/24. He was admitted to neurosurgery on 05/23/2024 and had [place] reservoir placement. He was scheduled to start HyperCVAD 2B on 05/24/24 which was delayed due to transaminitis and started on 05/27/24. Admitted on 09/12 for HyperCVAD+R Cycle 4B. B-cell Acute lymphoblastic leukemia Initial labs were significant for WBC count 69.4 K, hemoglobin of 5 g/dl, platelet of 58 K. Peripheral blood smear showed atypical mononuclear cells, most probably blasts, with no signs of Nancy rods. 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 MRI of the brain is negative for features indicative of T[employer]ER involvement or acute intracranial abnormalities. Scrotal ultrasound showed normal scrotum and testes with no evidence of testicular involvement. Bone marrow biopsy by IR on 03/15/2024 showed B-ALL, NGS showed TCF3-PBX1 fusion and an NSD2 (WHSC1 or MMSET) [id number] alteration (VAF 32.32%) with 90% blasts. Started on HyperCVAD+R Part A cycle 1 on 03/15/2024. Bone marrow biopsy done on 04/04/2024 before Cycle 1B; MRD negative, ClonoSEQ B-cell tracking detected residual sequences (three residual clonal cells per million nucleated cells). -Admitted on 09/12 as planned for HyperCVAD+R 4B -Continues to be on the IV methotrexate today as it was started late on 09/12 -Monitor CBC and CMP daily -Bone marrow biopsy scheduled for 09/16 with IR Chemotherapy regimen. Hyper CVAD+R Cycle 4 B Methotrexate 200 mg/m2 IV over 2 hours on Day 1 followed by 800 mg/m2; IV continuous infusion over 22 hours on Day 1 Cytarabine (age <60 years) 3,000 mg/m2; IV over 3 hours every 12 hours for 4 doses on Days 2 and 3 Alkaline hydration is required pre- and post-administration of high-dose methotrexate. Leucovorin 50 mg IV over 15 minutes on Day 2 administered 12 hours after completion of 22-hour methotrexate infusion followed by 15 mg IV over 15 minutes or PO every 6 hours for at least 8 doses (until methotrexate serum concentration is <0.05 micromol/L) Leucovorin dose should be titrated for delayed methotrexate clearance. Rituximab 375 mg/m2 IV (scheduled on 09/17) T[employer] E[employer]IPMENT INSTALLER prophylaxis - Alternated IT Methotrexate and IT cytarabine on days 1, 4 of each course of chemotherapy (completed 1B through 4A). Supportive medications - Neulasta scheduled on 09/17/24 Antibiotic prophylaxis: - Acyclovir 400 mg PO BID While on treatment - Levaquin 500 mg PO daily while on treatment - Fluconazole 400 mg PO daily while on treatment . Hold due to transaminitis. - Bactrim DS PO MWF while on treatment . Hold until MTX clears. - Augmentin 875/125 BID (due to dental infection) Anemia secondary to chemotherapy and/or underlying disease: - Transfuse RBC for Hgb < 7g/dl. Use irradiated blood products only. - Hgb 9.4 today, no need for transfusion Transaminitis - Hold fluconazole - Continue to monitor Patient seen and staffed with Dr. Freedman Problem List/Past Medical History Ongoing B-cell acute lymphoblastic leukemia Intellectual disability Procedure/Surgical History ear tubes tonsillectomy Medications Inpatient acyclovir, 400 mg= 2 capsule(s), Oral, bid alteplase(Cathflo Activase), 2 mg= 2 mL, Catheter Dwell, Bedside, PRN amoxicillin-clavulanate(amoxicillin-cl avulanate (Augmentin) 875 mg-125 mg oral tablet), 875 mg= 1 Tablet(s), Oral, q12h enoxaparin(enoxaparin - prophylactic dosing), 40 mg= 0.4 mL, Subcutaneous, At Bedtime gabapentin, 100 mg= 1 capsule(s), Oral, bid heparin flush(Heparin Lock Flush), 300 units= 3 mL, IV Push, Once, PRN HYDROmorphone(Dilaudid Inj), 0.5 mg= 0.5 mL, Slow IV Push, q8h, PRN hydrOXYzine(hydrOXYzine hydrochloride 25 mg oral tablet), 25 mg= 1 Tablet(s), Oral, tid, PRN leucovorin, 25 mg= 1 Tablet(s), Oral, [id number] leucovorin + sodium chloride 0.9% 50 mL, 50 mg = 5 mL, form: Injection, IVPB, Chemo Once, Routine, first dose 09/14/24 7:27:00 DIRECT SERVICE PROFESSIONAL, Physician Stop, stop date 09/14/24 7:27:00 DIRECT SERVICE PROFESSIONAL, 220 mL/hr, infuse over 15 minute(s), Total volume (mL): 55, Day 1 levoFLOXacin(levoFLOXacin 500 mg oral tablet), 500 mg= 1 Tablet(s), Oral, Daily morphine(MS Contin), 15 mg= 1 Tablet(s), Oral, bid ondansetron(ondansetron 4 mg oral tablet, disintegrating), 8 mg= 2 Tablet(s), Oral, tid oxyCODONE(_oxyCODONE 5 mg oral tablet), 5 mg= 1 Tablet(s), Oral, q6h, PRN prochlorperazine, 10 mg= 2 mL, IV, [id number], PRN prochlorperazine, 10 mg= 1 Tablet(s), Oral, tid sertraline(Zoloft), 50 mg= 1 Tablet(s), Oral, Daily sodium bicarbonate(sodium bicarbonate PO), 1300 mg= 2 Tablet(s), Oral, [id number], PRN sodium bicarbonate 150 mEq + sterile water 1,000 mL(sodium bicarb for IV infusion 150 mEq + sterile water 1,000 mL), Total volume (mL): 1,150, Injection, IV, Rate: 200 mL/hr, Start date: 09/12/24 13:56:00 DIRECT SERVICE PROFESSIONAL, Stop date: 09/19/24 13:27:00 DIRECT SERVICE PROFESSIONAL, Day 1 Home acetaminophen(acetaminophen 500 mg oral tablet), 1000 mg= 2 Tablet(s), Oral, q6h, PRN acetaminophen-HYDROcodone(acetaminophe n-hydrocodone 325 mg-5 mg oral tablet), 1 Tablet(s), Oral, q6h, PRN acyclovir(acyclovir 200 mg oral capsule), 400 mg= 2 capsule(s), Oral, bid, 2 refills amoxicillin-clavulanate(amoxicillin-cl avulanate (Augmentin) 875 mg-125 mg oral tablet) fluconazole(fluconazole 200 mg oral tablet), 400 mg= 2 Tablet(s), Oral, Daily gabapentin(gabapentin 100 mg oral capsule), 100 mg= 1 capsule(s), Oral, bid gabapentin(gabapentin 100 mg oral capsule), 100 mg= 1 capsule(s), Oral, bid, 1 refills hydrOXYzine(hydrOXYzine hydrochloride 25 mg oral tablet), 25 mg= 1 Tablet(s), Oral, tid, PRN ibuprofen(ibuprofen 200 mg oral tablet), 400 mg= 2 Tablet(s), Oral, q6h, PRN lactobacillus acidophilus(Acidophilus Probiotic Blend oral capsule), 1 capsule(s), Oral, Daily levoFLOXacin(levoFLOXacin 500 mg oral tablet), 500 mg= 1 Tablet(s), Oral, Daily, 3 refills loperamide(loperamide 2 mg oral tablet), See Instructions, 1 refills morphine(MS Contin 15 mg oral tablet, extended release), 15 mg= 1 Tablet(s), Oral, bid ondansetron(ondansetron 8 mg oral tablet, disintegrating), 8 mg= 1 Tablet(s), Oral, tid, 1 refills prochlorperazine(prochlorperazine 10 mg oral tablet), 10 mg= 1 Tablet(s), Oral, tid, 1 refills sertraline(Zoloft 50 mg oral tablet), 50 mg= 1 Tablet(s), Oral, Daily, 3 refills sulfamethoxazole-trimethoprim(Bactrim DS 800 mg-160 mg oral tablet), 160 mg= 1 Tablet(s), Oral, qM W F, 1 refills Allergies NKA Social History Smoking Status Never smoker Alcohol - Denies Alcohol Use Substance Abuse Use:Current Frequency:1-2 times per week Tobacco - Denies Tobacco Use Family History Immunizations Lab Results YCBC (09/13/24) WBC 5.29 Hgb L 9.4 Hct L 29.4 MCV H 100.7 PLT 213 Auto Differential % nRBC 0.0 Absolute nRBC 0.0 % Neutrophils 86.1 Absolute Neut 4.55 % Im Granulocyt H 4.50 Absolute Im Gra H 0.24 % Lymphocytes 6.2 % Monocytes 2.8 % Eosinophils 0.0 % Basophils 0.4 Comprehensive Metabolic Panel (09/13/24) Na+ 136 K+ 3.7 Cl- 98 CO2 H 33 Anion gap 10 GLU H 140 BUN 14 Creat L 0.5 Estimated GFR f 142 Estimated GFR f Not Calculated Ca 9.2 Alk Phos 114 AST H 121 ALT H 98 T Bili 0.40 Total Protein 6.4 Alb 3.8 Hemolysis Index 0 Icteria Index 0 Lipemia Index 0 Diagnostic Results I personally saw and evaluated the patient on 09/13/2024 with . I independently performed rush portions of history, physical, evaluation and management and discussed the management with the fellow. Tolerating treatment, he does have fatigue. Denies any new tooth pain. No difficulty with Methotrexate, will need to continue to monitor lft's, which is mildly elevated, also will need to monitor cr and Mxt levels. I reviewed history and labs and assessment and plan and reviewed the fellow&rsquo;s note and it&rsquo;s content. 09/13/2024 Hem Oncology IM Clinic Note Chief Compla int Follow up with labs Diagnoses B-ALL, Ph-negative Current Treatment HyperCVAD alternating with High-dose Methotrexate and Cytarabine Cycle 1A Day 1on 03/15/2024 Cycle 1B Day 1 on 04/10/2024 Cycle 2A Day 1 on 05/02/2024 Cycle 2B Day 1 on 05/27/2024 Cycle 3A Day 1 on 06/27/2024 Cycle 3B Day 1 on 07/19/2024 Cycle 4A Day 1 on 08/20/2024 Cycle 4B Day 1 on 09/12/2024. T[employer] E[employer]MENT INSTALLER prophylaxis Alternating IT Methotrexate and IT cytarabine on days 1, 4 of each course of chemotherapy (completed 1B through 4A). Previous Treatment None Oncologic History: 24-year-old male with a medical history significant for a presumed intellectual disability and B cell ALL which was diagnosed in 02/2024. He underwent a BM biopsy on 03/15/24 which was consistent with a diagnosis of B ALL with 90 % blasts. Initial labs were significant for WBC count 69.4 K, hemoglobin of 5 g/dl, platelet of 58 K. Peripheral blood smear showed atypical mononuclear cells, most probably blasts, with no signs of Nancy rods. 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 MRI of the brain is negative for features indicative of TOWER EQUIPMENT INSTALLER involvement or acute intracranial abnormalities. Scrotal ultrasound showed normal scrotum and testes with no evidence of testicular involvement. Bone marrow biopsy by IR on 03/15/2024 showed B-ALL, NGS showed TCF3-PBX1 fusion and an NSD2 (WHSC1 or MMSET) [id number] alteration (VAF 32.32%) with 90% blasts. Started on HyperCVAD+R Part A cycle 1 on 03/15/2024. Bone marrow biopsy done on 04/04/2024 before Cycle 1B; MRD negative, ClonoSEQ B-cell tracking detected residual sequences (three residual clonal cells per million nucleated cells). HPI (Interval History) Mr. Evelina Do presented to the hematology/oncology clinic for a follow-up visit on 09/12/2024 and for consideration of Cycle 2B. He reported that he is clinically doing well. He complaints of some pain in his right tooth/gum recently. He said that he has been complaint with all his antibiotics at home but he does not know which ones he takes. His sister manages the medications. She was not with him during the clinic visit and was at work. He denies any fever, chills, chest pain, palpitations, SOB or difficulty swallowing. No nausea, vomiting or abdominal pain. Review of Systems ROS was as noted in HPI. Physical Exam Vitals and Measurements T: 36.7 C HR: 137 BP: 119/82 SpO2: 96% WT: 71.7 kg General: Alert and oriented, No acute distress, ECOG 1. Eye: PERRLA HENT: Poor dentition, mild gum swelling on the right side likely from dental infection. Neck: Supple, Non-tender, No lymphadenopathy. Respiratory: Lungs are clear to auscultation. No wheezing or crackles. Cardiovascular: Normal rate, Regular rhythm. Gastrointestinal: Soft, Non-tender, Non-distended. Integumentary: Warm, Dry, No rash. Neurologic: Alert, Oriented. Cognition and Speech: Oriented, Speech clear and coherent. Psychiatric: Cooperative. Assessment/Plan Mr. Evelina Do is a 24-year-old male with a medical history significant for a presumed intellectual disability and B cell ALL which was diagnosed in 02/2024. He underwent a BM biopsy on 03/15/24 which was consistent with a diagnosis of B ALL with 90 % blasts. Patient received HyperCVAD cycle 1A and 1B inpatient with cycle 1B finishing on 04/16/24. He was admitted on 04/26/24 for a febrile illness suspected to be secondary to a dental infection and he was originally due for Cycle 2A on 04/29/24 which was initiated on 05/02/24. He was admitted to neurosurgery on 05/23/2024 and had [place] reservoir placement. He was scheduled to start HyperCVAD 2B on 05/24/24 which was delayed due to transaminitis and started on 05/27/24. He presented to the clinic for Cycle 4 Part B. B-cell Acute lymphoblastic leukemia - Patient is clinically doing well apart from a likely dental infection. - CBC showed mild leukocytosis and mild anemia, otherwise unremarkable. - CMP showed mild stable AST/ALT elevation. - Plan: Will admit the patient as planned for Cycle 4 Part B. Plan for treatment completion bone marrow biopsy, scheduled inpatient on 09/16/2024 (discussed with IR). Planned early as patient lives far away and has transportation difficulties to come in for a separate appointment Monitor CBC and CMP daily Chemotherapy regimen Hyper-CVAD Chemotherapy, Part B Methotrexate - 200 mg/m2 IV over 2 hours on Day 1 followed by - 800 mg/m2; IV continuous infusion over 22 hours on Day 1 Alkaline hydration is required pre- and post-administration of high-dose methotrexate. - Cytarabine (age <60 years) 3,000 mg/mm2; IV over 3 hours every 12 hours for 4 doses on Days 2 and 3 Leucovorin - 50 mg IV over 15 minutes on Day 2 administered 12 hours after completion of 22-hour methotrexate infusion followed by - 15 mg IV over 15 minutes or PO every 6 hours for at least 8 doses (until methotrexate serum concentration is <0.05 micromol/L) - Leucovorin dose should be titrated for delayed methotrexate clearance. Rituximab 375 mg/m2 on Day 5 [Rituximab and Neulasta scheduled on 09/17/2024]. Supportive medications - Neulasta 6 mg SC once on Day 5. T[employer] E[employer]IPMENT INSTALLER prophylaxis - Alternating IT Methotrexate and IT cytarabine on days 1, 4 of each course of chemotherapy (completed 1B through 4A). Antibiotic prophylaxis: - Acyclovir 400 mg PO BID While on treatment - Levaquin 500 mg PO daily while on treatment - Fluconazole 400 mg PO daily while on treatment - Bactrim DS PO MWF while on treatment - Augmentin 875/125 BID (due to dental infection) Anemia secondary to chemotherapy and/or underlying disease: - Transfuse RBC for Hgb < 7g/dl. Use irradiated blood products only. - Hgb 11 today, no need for transfusion Informed inpatient fellow, Dr. Gordon about the admission. Return to clinic in 3-4 weeks after hospital discharge. Patient case discussed with attending Dr. Barrientos. Addendum: Patient seen and examined on 09/12/24 with the fellow, Dr. Frazier. Labs and clinical history reviewed. Physical examination completed and findings discussed with team. A total of 30 mins used in reviewing test results, creating a treatment plan and completing the documentation process. Patient is here for last cycle of chemo (4B) for ALL, Ph negative. He has done well with previous bone marrow showing CR. Will need end of treatment bone marrow and then plan for maintenance for 2 years. Heike Barrientos MD Problem List/Past Medical History Ongoing B-cell acute lymphoblastic leukemia Intellectual disability Procedure/Surgical History ear tubes tonsillectomy Medications acetaminophen(acetaminophen 500 mg oral tablet), 1000 mg= 2 Tablet(s), Oral, q6h, PRN acetaminophen-HYDROcodone(acetaminophe n-hydrocodone 325 mg-5 mg oral tablet), 1 Tablet(s), Oral, q6h, PRN acyclovir(acyclovir 200 mg oral capsule), 400 mg= 2 capsule(s), Oral, bid, 2 refills acyclovir, 400 mg= 2 capsule(s), Oral, bid alteplase(Cathflo Activase), 2 mg= 2 mL, Catheter Dwell, Bedside, PRN amoxicillin-clavulanate(amoxicillin-cl avulanate (Augmentin) 875 mg-125 mg oral tablet) amoxicillin-clavulanate(amoxicillin-cl avulanate (Augmentin) 875 mg-125 mg oral tablet), 875 mg= 1 Tablet(s), Oral, q12h cytarabine + sodium chloride 0.9% 500 mL, 3,000 mg = 30 mL, form: Injection, IVPB, [id number], Routine, first dose 09/16/24 12:00:00 DIRECT SERVICE PROFESSIONAL, order duration: 2 dose(s), Physician Stop, stop date 09/17/24 0:00:00 DIRECT SERVICE PROFESSIONAL, 265 mL/hr, infuse over 2 hour(s), Total volume (mL): 530, Day 3 dexAMETHAsone(dexAMETHAsone po), 4 mg= 1 Tablet(s), Oral, [id number] dexamethasone ophthalmic(dexAMETHasone 0.1% ophthalmic solution), 2 Drop(s), Each Eye, [id number] enoxaparin(enoxaparin - prophylactic dosing), 40 mg= 0.4 mL, Subcutaneous, At Bedtime fluconazole(fluconazole 200 mg oral tablet), 400 mg= 2 Tablet(s), Oral, Daily gabapentin(gabapentin 100 mg oral capsule), 100 mg= 1 capsule(s), Oral, bid gabapentin(gabapentin 100 mg oral capsule), 100 mg= 1 capsule(s), Oral, bid, 1 refills gabapentin, 100 mg= 1 capsule(s), Oral, bid heparin flush(Heparin Lock Flush), 300 units= 3 mL, IV Push, Once, PRN HYDROmorphone(Dilaudid Inj), 1 mg= 1 mL, Slow IV Push, q4h, PRN hydrOXYzine(hydrOXYzine hydrochloride 25 mg oral tablet), 25 mg= 1 Tablet(s), Oral, tid, PRN hydrOXYzine(hydrOXYzine hydrochloride 25 mg oral tablet), 25 mg= 1 Tablet(s), Oral, tid, PRN ibuprofen(ibuprofen 200 mg oral tablet), 400 mg= 2 Tablet(s), Oral, q6h, PRN lactobacillus acidophilus(Acidophilus Probiotic Blend oral capsule), 1 capsule(s), Oral, Daily levoFLOXacin(levoFLOXacin 500 mg oral tablet), 500 mg= 1 Tablet(s), Oral, Daily, 3 refills levoFLOXacin(levoFLOXacin 500 mg oral tablet), 500 mg= 1 Tablet(s), Oral, Daily loperamide(loperamide 2 mg oral tablet), See Instructions, 1 refills morphine(MS Contin 15 mg oral tablet, extended release), 15 mg= 1 Tablet(s), Oral, bid morphine(MS Contin), 15 mg= 1 Tablet(s), Oral, bid ondansetron(ondansetron 8 mg oral tablet, disintegrating), 8 mg= 1 Tablet(s), Oral, tid, 1 refills ondansetron(ondansetron 4 mg oral tablet, disintegrating), 8 mg= 2 Tablet(s), Oral, tid ondansetron(ondansetron oral), 8 mg= 1 Tablet(s), Oral, [id number] oxyCODONE(_oxyCODONE 5 mg oral tablet), 5 mg= 1 Tablet(s), Oral, q4h, PRN pantoprazole(pantoprazole oral), 40 mg= 2 Tablet(s), Oral, Daily prochlorperazine(prochlorperazine 10 mg oral tablet), 10 mg= 1 Tablet(s), Oral, tid, 1 refills prochlorperazine, 10 mg= 2 mL, IV, [id number], PRN prochlorperazine, 10 mg= 1 Tablet(s), Oral, tid sertraline(Zoloft 50 mg oral tablet), 50 mg= 1 Tablet(s), Oral, Daily, 3 refills sertraline(Zoloft), 50 mg= 1 Tablet(s), Oral, Daily sincalide, 1.434 mcg, 0.02 mcg/kg, IV Push, Once sulfamethoxazole-trimethoprim(Bactrim DS 800 mg-160 mg oral tablet), 160 mg= 1 Tablet(s), Oral, qM W F, 1 refills Time Zero, 1 Each, Message, Chemo Once Allergies NKA Social History Smoking Status Never smoker Alcohol - Denies Alcohol Use Substance Abuse Use:Current Frequency:1-2 times per week Tobacco - Denies Tobacco Use Family History Immunizations Health Maintenance Visit Information Provider Names Attending Physician: Heike Barrientos MD Referring Physician: Heike Barrientos MD Original Referring Provider: Heike Barrientos MD Visit Date Visit Date: 09/12/2024 09/12/2024 Hem Oncology IM Consult Note Subjective Chief Complaint No acute events overnight. Tolerating chemo well. Denies any concerns. States that he really wants to go home today. Objective Vitals and Measurements T: 36.6 C TMIN: 36.5 C TMAX: 36.7 C HR: 80 RR: 16 BP: 133/79 SpO2: 99% Physical Exam General: Awake and alert. In no apparent distress. HEENT: EOMI. Normocephalic. Moist mucous membranes. Cardiovascular: RRR. No murmurs, rubs or gallops appreciated. Lungs: CTA bilaterally. No wheezes, rales or rhonchi. Abdomen: Non-tender, non-distended. Normoactive bowel sounds. Extremities: No edema. Neuro: No gross focal deficits Psych: Appropriate mood and affect. Lab Results CBC (08/23/24) WBC H 11.99 Hgb L 10.0 Hct L 31.5 MCV H 101.3 PLT 206 Comprehensive Metabolic Panel (08/23/24) Na+ 142 K+ 3.9 Cl- 103 CO2 29 Anion gap 14 GLU 129 BUN 13 Creat L 0.5 Estimated GFR f 142 Estimated GFR f Not Calculated Ca 9.2 Alk Phos 79 AST 21 ALT 26 T Bili 0.43 Total Protein 6.1 Alb 3.6 Hemolysis Index 0 Icteria Index 0 Lipemia Index 0 Diagnostic Results Assessment/Plan Patient Summary 24-year-old male with a medical history significant for a presumed intellectual disability and B cell ALL which was diagnosed in 02/2024. He underwent a BM biopsy on 03/15/24 which was consistent with a diagnosis of B ALL with 90 % blasts. Patient received HyperCVAD cycle 1A and 1B inpatient with cycle 1B finishing on 04/16/24. He was admitted on 04/26/24 for a febrile illness suspected to be secondary to a dental infection and he was originally due for Cycle 2A on 04/29/24 which was initiated on 05/02/24. He was admitted to neurosurgery on 05/23/2024 and had [place] reservoir placement. He was scheduled to start HyperCVAD 2B on 05/24/24 which was delayed due to transaminitis and started on 05/27/24. Patient presents as a planned admission for HyperCVAD+R Cycle 4A. Proceed with Cycle 4A Day 4 today. B-cell Acute lymphoblastic leukemia Initial labs were significant for WBC count 69.4 K, hemoglobin of 5 g/dl, platelet of 58 K. Peripheral blood smear showed atypical mononuclear cells, most probably blasts, with no signs of Nancy rods. 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 MRI of the brain is negative for features indicative of T[employer] EQUIPMENT INSTALLER involvement or acute intracranial abnormalities. Scrotal ultrasound showed normal scrotum and testes with no evidence of testicular involvement. Bone marrow biopsy by IR on 03/15/2024 showed B-ALL, NGS showed TCF3-PBX1 fusion and an NSD2 (WHSC1 or MMSET) [id number] alteration (VAF 32.32%) with 90% blasts. Started on HyperCVAD+R Part A cycle 1 on 03/15/2024. Bone marrow biopsy done on 04/04/2024 before Cycle 1B; MRD negative, ClonoSEQ B-cell tracking detected residual sequences (three residual clonal cells per million nucleated cells). -- Admitted on 08/19 as planned for HyperCVAD+R 4A with IT chemo on Days 1 and 4 -- Labs reviewed, okay to proceed with Cycle 4A Day 3 today -- s/p IT methotrexate 08/20 and IT cytarabine on Day 4 (08/23) -- Monitor CBC and CMP daily Chemotherapy regimen Hyper-CVAD Chemotherapy, Part A, alternating with high dose MTX and cytarabine, cycle 4A initiated on 08/20 (Day 1 today) - Cyclophosphamide (Cytoxan) 300 mg/m2 IV over 2 hours every 12 hours on days 1 to 3 - Vincristine (Oncovin) 2 mg IV once per day on days 4 and 11 (Day scheduled outpatient with Rituximab on 08/30) - Doxorubicin (Adriamycin) 50 mg/m2 IV continuous infusion over 24 hours, started on day 4 - Dexamethasone (Decadron) 40 mg IV or PO once per day on days 1 to 4, 11 to 14 - Rituximab 375 mg/m2 IV (scheduled outpatient on 08/30) Supportive medications - Mesna (Mesnex) 600 mg/m2/day IV continuous infusion over 72 hours, started on day 1, starting 1 hour before Cyclophosphamide (Cytoxan) and completed 12 hours after the last dose of Cyclophosphamide (Cytoxan). Last bag of Mesna was discontinued earlier after discussion with Dr. Barrientos as patient requested discharging sooner. It was thought to be okay since Cyclophosphamide at the dose given has a very low risk of hemorrhagic cystitis. Patient advised to take plenty of fluids. - Neulasta delivered bedside before discharge. To be administered on 08/24. T[employer] E[employer] INSTALLER prophylaxis - Alternating IT Methotrexate and IT cytarabine on days 1, 4 of each course of chemotherapy (completed 1B through 4A). Antibiotic prophylaxis: - Acyclovir 400 mg PO BID While on treatment - Levaquin 500 mg PO daily while on treatment - Fluconazole 400 mg PO daily while on treatment - Bactrim DS PO MWF while on treatment - Augmentin 875/125 BID (due to dental infection) Anemia secondary to chemotherapy and/or underlying disease: - Transfuse RBC for Hgb < 7g/dl. Use irradiated blood products only. - Hgb 10 today, no need for transfusion Patient seen and staffed with Dr. Barrientos Addendum: Patient seen and examined on 08/23/24 with the fellow, Dr. Gordon. Labs and clinical history reviewed. Physical examination completed and findings discussed with team. A total of 30 mins used in reviewing test results, creating a treatment plan and completing the documentation process. Patient has completed 4A of R- HyperCVAD. He is doing well. Completed IT chemo also. Does;nt need anymore of IT chemo. Will need to come back for 4B chemo. After that will need a bone marrow bx and then appropriate maintenace. Heike Barrientos MD 08/23/2024 Hem Oncology IM Consult Note Subjective Chief Complaint No acute events overnight. Tolerating chemo well. Denies any concerns. Objective Vitals and Measurements T: 36.5 C TMIN: 36.5 C TMAX: 36.6 C HR: 84 RR: 16 BP: 135/81 SpO2: 97% Physical Exam General: Awake and alert. In no apparent distress. HEENT: EOMI. Normocephalic. Moist mucous membranes. Cardiovascular: RRR. No murmurs, rubs or gallops appreciated. Lungs: CTA bilaterally. No wheezes, rales or rhonchi. Abdomen: Non-tender, non-distended. Normoactive bowel sounds. Extremities: No edema. Neuro: No gross focal deficits Psych: Appropriate mood and affect. Lab Results CBC (08/22/24) WBC 9.18 Hgb L 8.6 Hct L 27.1 MCV H 101.9 PLT 174 Auto Differential % nRBC 0.0 Absolute nRBC 0.0 % Neutrophils 86.5 Absolute Neut H 7.95 % Lymphocytes 1.9 % Monocytes 10.8 % Eosinophils 0.0 % Basophils 0.0 Comprehensive Metabolic Panel (08/22/24) Na+ 143 K+ 3.6 Cl- H 108 CO2 24 Anion gap 15 GLU 127 BUN 14 Creat L 0.5 Estimated GFR f 141 Estimated GFR f Not Calculated Ca 8.4 Alk Phos 82 AST 22 ALT 20 T Bili L 0.21 Total Protein L 5.5 Alb 3.4 Hemolysis Index 0 Icteria Index 0 Lipemia Index 0 Diagnostic Results Assessment/Plan Patient Summary 24-year-old male with a medical history significant for a presumed intellectual disability and B cell ALL which was diagnosed in 02/2024. He underwent a BM biopsy on 03/15/24 which was consistent with a diagnosis of B ALL with 90 % blasts. Patient received HyperCVAD cycle 1A and 1B inpatient with cycle 1B finishing on 04/16/24. He was admitted on 04/26/24 for a febrile illness suspected to be secondary to a dental infection and he was originally due for Cycle 2A on 04/29/24 which was initiated on 05/02/24. He was admitted to neurosurgery on 05/23/2024 and had [place] reservoir placement. He was scheduled to start HyperCVAD 2B on 05/24/24 which was delayed due to transaminitis and started on 05/27/24. Patient presents as a planned admission for HyperCVAD+R Cycle 4A. Proceed with Cycle 4A Day 3 today. B-cell Acute lymphoblastic leukemia Initial labs were significant for WBC count 69.4 K, hemoglobin of 5 g/dl, platelet of 58 K. Peripheral blood smear showed atypical mononuclear cells, most probably blasts, with no signs of Nancy rods. 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 MRI of the brain is negative for features indicative of T[employer] EQUIP[employer] INSTALLER involvement or acute intracranial abnormalities. Scrotal ultrasound showed normal scrotum and testes with no evidence of testicular involvement. Bone marrow biopsy by IR on 03/15/2024 showed B-ALL, NGS showed TCF3-PBX1 fusion and an NSD2 (WHSC1 or MMSET) [id number] alteration (VAF 32.32%) with 90% blasts. Started on HyperCVAD+R Part A cycle 1 on 03/15/2024. Bone marrow biopsy done on 04/04/2024 before Cycle 1B; MRD negative, ClonoSEQ B-cell tracking detected residual sequences (three residual clonal cells per million nucleated cells). -- Admitted on 08/19 as planned for HyperCVAD+R 4A with IT chemo on Days 1 and 4 -- Labs reviewed, okay to proceed with Cycle 4A Day 3 today -- s/p IT methotrexate 08/20 and plan to administer IT cytarabine on Day 4 (08/23) -- Monitor CBC and CMP daily Chemotherapy regimen Hyper-CVAD Chemotherapy, Part A, alternating with high dose MTX and cytarabine, cycle 4A initiated on 08/20 (Day 1 today) - Cyclophosphamide (Cytoxan) 300 mg/m2 IV over 2 hours every 12 hours on days 1 to 3 - Vincristine (Oncovin) 2 mg IV once per day on days 4 and 11 (Day 11 to be scheduled outpatient with Rituximab) - Doxorubicin (Adriamycin) 50 mg/m2 IV continuous infusion over 24 hours, started on day 4 - Dexamethasone (Decadron) 40 mg IV or PO once per day on days 1 to 4, 11 to 14 - Rituximab 375 mg/m2 IV (to be scheduled outpatient) Supportive medications - Mesna (Mesnex) 600 mg/m2/day IV continuous infusion over 72 hours, started on day 1, starting 1 hour before Cyclophosphamide (Cytoxan) and completed 12 hours after the last dose of Cyclophosphamide (Cytoxan) - Filgrastim (Neupogen) 5 mcg/kg SC once per day, starting 24 hours after completion of intensive courses of chemotherapy (day 5 for part A, day 4 for part B), given until ANC greater than 1000/uL VS outpatient Neulasta. Neulasta to be delivered bedside before discharge. To be administered on 08/24. 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 Antibiotic prophylaxis: - Acyclovir 400 mg PO BID While on treatment - Levaquin 500 mg PO daily while on treatment - Fluconazole 400 mg PO daily while on treatment - Bactrim DS PO MWF while on treatment - Augmentin 875/125 BID (due to dental infection) Anemia secondary to chemotherapy and/or underlying disease: - Transfuse RBC for Hgb < 7g/dl. Use irradiated blood products only. - Hgb 8.6 today, no need for transfusion Patient seen and staffed with Dr. Barrientos Addendum: Patient seen and examined on 08/22/24 with the fellow, Dr. Gordon. Labs and clinical history reviewed. Physical examination completed and findings discussed with team. A total of 30 mins used in reviewing test results, creating a treatment plan and completing the documentation process. Patient is here completing 4A of R- HyperCVAD. Completed IT-Chemo. CSF was never involved with ALL. Will come back for last cycle of Chemo in 3 weeks. Heike Barrientos MD 08/22/2024 Hem Oncology IM Consult Note Subjective Chief Complaint No acute events overnight. Tolerating chemo well. Denies any concerns. Endorses chronic back pain. Objective Vitals and Measurements T: 36.6 C TMIN: 36.5 C TMAX: 36.7 C HR: 98 RR: 16 BP: 112/61 SpO2: 97% Physical Exam General: Awake and alert. In no apparent distress. HEENT: EOMI. Normocephalic. Moist mucous membranes. Cardiovascular: RRR. No murmurs, rubs or gallops appreciated. Lungs: CTA bilaterally. No wheezes, rales or rhonchi. Abdomen: Non-tender, non-distended. Normoactive bowel sounds. Extremities: No edema. Neuro: No gross focal deficits Psych: Appropriate mood and affect. Lab Results CBC (08/21/24) WBC 5.86 Hgb L 9.5 Hct L 29.7 MCV H 100.3 PLT 200 Comprehensive Metabolic Panel (08/21/24) Na+ 142 K+ 4.0 Cl- 105 CO2 27 Anion gap 14 GLU 123 BUN 10 Creat L 0.5 Estimated GFR f 142 Estimated GFR f Not Calculated Ca 9.7 Alk Phos 101 AST 27 ALT 24 T Bili 0.31 Total Protein 6.6 Alb 3.9 Hemolysis Index 0 Icteria Index 0 Lipemia Index 0 Inpatient Medication Orders Bactrim DS: 160mg 1 Tablet(s) Oral qM W F MS Contin: 15mg 1 Tablet(s) Oral q12h Zoloft: 50mg 1 Tablet(s) Oral Daily acyclovir: 400mg 2 capsule(s) Oral bid amoxicillin-clavulanate (Augmentin) 875 mg-125 mg oral table: 875mg 1 Tablet(s) Oral bid enoxaparin - prophylactic dosinmg 0.4 mL Subcutaneous At Bedtime fluconazole: 400mg 2 Tablet(s) Oral Daily gabapentin: 100mg 1 capsule(s) Oral bid influenza virus Vaccine PF 0.5 mL Syr Inj >= 6 months: 0.5 mL IM Unscheduled levoFLOXacin 500 mg oral tablet: 500mg 1 Tablet(s) Oral Daily prochlorperazine: 10mg 1 Tablet(s) Oral tid Cathflo Activase: 2mg 2 mL Catheter Dwell Bedside PRN (reason: Other; See comments) Cathflo Activase: 2mg 2 mL Catheter Dwell Bedside PRN (reason: Other; See comments) Dilaudid Inj: 0.5mg 0.5 mL Slow IV Push q4h PRN (reason: Pain, Breakthrough) Heparin Lock Flush: 300units 3 mL IV Push Once PRN (reason: Other; See comments) Heparin Lock Flush: 300units 3 mL IV Push Once PRN (reason: Other; See comments) _oxyCODONE 5 mg oral tablet: 5mg 1 Tablet(s) Oral q6h PRN (reason: Pain, Moderate) hydrOXYzine hydrochloride 25 mg oral tablet: 25mg 1 Tablet(s) Oral tid PRN (reason: Anxiety) loperamide: 1mg Oral qid PRN (reason: as needed for loose stool) Diagnostic Results Assessment/Plan Patient Summary 24-year-old male with a medical history significant for a presumed intellectual disability and B cell ALL which was diagnosed in 02/2024. He underwent a BM biopsy on 03/15/24 which was consistent with a diagnosis of B ALL with 90 % blasts. Patient received HyperCVAD cycle 1A and 1B inpatient with cycle 1B finishing on 04/16/24. He was admitted on 04/26/24 for a febrile illness suspected to be secondary to a dental infection and he was originally due for Cycle 2A on 04/29/24 which was initiated on 05/02/24. He was admitted to neurosurgery on 05/23/2024 and had [place] reservoir placement. He was scheduled to start HyperCVAD 2B on 05/24/24 which was delayed due to transaminitis and started on 05/27/24. Patient presents as a planned admission for HyperCVAD+R Cycle 4A. Proceed with Cycle 4A Day 2 today. B-cell Acute lymphoblastic leukemia Initial labs were significant for WBC count 69.4 K, hemoglobin of 5 g/dl, platelet of 58 K. Peripheral blood smear showed atypical mononuclear cells, most probably blasts, with no signs of Nancy rods. 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 MRI of the brain is negative for features indicative of T[employer] INST[employer]ER involvement or acute intracranial abnormalities. Scrotal ultrasound showed normal scrotum and testes with no evidence of testicular involvement. Bone marrow biopsy by IR on 03/15/2024 showed B-ALL, NGS showed TCF3-PBX1 fusion and an NSD2 (WHSC1 or MMSET) [id number] alteration (VAF 32.32%) with 90% blasts. Started on HyperCVAD+R Part A cycle 1 on 03/15/2024. Bone marrow biopsy done on 04/04/2024 before Cycle 1B; MRD negative, ClonoSEQ B-cell tracking detected residual sequences (three residual clonal cells per million nucleated cells). -- Admitted on 08/19 as planned for HyperCVAD+R 4A with IT chemo on Days 1 and 4 -- Labs reviewed, okay to proceed with Cycle 4A Day 2 today -- Plan to administer IT methotrexate today (Day 1), will plan to administer IT cytarabine on Day 4 (08/23) -- Monitor CBC and CMP daily Chemotherapy regimen Hyper-CVAD Chemotherapy, Part A, alternating with high dose MTX and cytarabine, cycle 4A initiated on 08/20 (Day 1 today) - Cyclophosphamide (Cytoxan) 300 mg/m2 IV over 2 hours every 12 hours on days 1 to 3 - Vincristine (Oncovin) 2 mg IV once per day on days 4 and 11 (Day 11 to be scheduled outpatient with Rituximab) - Doxorubicin (Adriamycin) 50 mg/m2 IV continuous infusion over 24 hours, started on day 4 - Dexamethasone (Decadron) 40 mg IV or PO once per day on days 1 to 4, 11 to 14 - Rituximab 375 mg/m2 IV (to be scheduled outpatient) Supportive medications - Mesna (Mesnex) 600 mg/m2/day IV continuous infusion over 72 hours, started on day 1, starting 1 hour before Cyclophosphamide (Cytoxan) and completed 12 hours after the last dose of Cyclophosphamide (Cytoxan) ​- Filgrastim (Neupogen) 5 mcg/kg SC once per day, starting 24 hours after completion of intensive courses of chemotherapy (day 5 for part A, day 4 for part B), given until ANC greater than 1000/uL VS outpatient Neulasta. 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 Antibiotic prophylaxis: - Acyclovir 400 mg PO BID While on treatment - Levaquin 500 mg PO daily while on treatment - Fluconazole 400 mg PO daily while on treatment - Bactrim DS PO MWF while on treatment - Augmentin 875/125 BID (due to dental infection) Anemia secondary to chemotherapy and/or underlying disease: - Transfuse RBC for Hgb < 7g/dl. Use irradiated blood products only. - Hgb 9.5 today, no need for transfusion Patient seen and staffed with Dr. Barrientos Addendum: Patient seen and examined on 08/21/24 with the fellow, Dr. Gordon. Labs and clinical history reviewed. Physical examination completed and findings discussed with team. A total of 30 mins used in reviewing test results, creating a treatment plan and completing the documentation process. Patient has completed 4A of R- HyperCVAD. Doing well. Tolerated IT chemo well. Much better disposition now with less anxiety. No need for any more IT Chemo since CSF was never positive. Will come back for 4 B of systemic chemo and then have a bone marrow biopsy before decigin on maintenance. Heike Barrientos MD 08/21/2024 Hem Oncology IM Consult Note Chief Compl aint Reason for Consultation B ALL Requesting Provider Dr. Madsen History of Present Illness 24-year-old male with a medical history significant for a presumed intellectual disability and B cell ALL which was diagnosed in 02/2024. He underwent a BM biopsy on 03/15/24 which was consistent with a diagnosis of B ALL with 90 % blasts. Patient received HyperCVAD cycle 1A and 1B inpatient with cycle 1B finishing on 04/16/24. He was admitted on 04/26/24 for a febrile illness suspected to be secondary to a dental infection and he was originally due for Cycle 2A on 04/29/24 which was initiated on 05/02/24. He was admitted to neurosurgery on 05/23/2024 and had [place] reservoir placement. He was scheduled to start HyperCVAD 2B on 05/24/24 which was delayed due to transaminitis and started on 05/27/24. Patient presents as a planned admission for HyperCVAD+R Cycle 4A. Reports doing well since last discharge. Denies any recent infections, fever, chills. Denies any other concerns. Review of Systems Complete Review of Systems performed and negative except as otherwise noted in HPI. Physical Exam Vitals and Measurements T: 36.6 C TMIN: 36.5 C TMAX: 36.6 ?C HR: 86 RR: 16 BP: 119/63 SpO2: 95% General: Awake and alert. In no apparent distress. HEENT: EOMI. Normocephalic. Moist mucous membranes. Cardiovascular: RRR. No murmurs, rubs or gallops appreciated. Lungs: CTA bilaterally. No wheezes, rales or rhonchi. Abdomen: Non-tender, non-distended. Normoactive bowel sounds. Extremities: No edema. Neuro: No gross focal deficits Psych: Appropriate mood and affect. Assessment/Plan 24-year-old male with a medical history significant for a presumed intellectual disability and B cell ALL which was diagnosed in 02/2024. He underwent a BM biopsy on 03/15/24 which was consistent with a diagnosis of B ALL with 90 % blasts. Patient received HyperCVAD cycle 1A and 1B inpatient with cycle 1B finishing on 04/16/24. He was admitted on 04/26/24 for a febrile illness suspected to be secondary to a dental infection and he was originally due for Cycle 2A on 04/29/24 which was initiated on 05/02/24. He was admitted to neurosurgery on 05/23/2024 and had [place] reservoir placement. He was scheduled to start HyperCVAD 2B on 05/24/24 which was delayed due to transaminitis and started on 05/27/24. Patient presents as a planned admission for HyperCVAD+R Cycle 4A. Proceed with Cycle 4A Day 1 today. B-cell Acute lymphoblastic leukemia Initial labs were significant for WBC count 69.4 K, hemoglobin of 5 g/dl, platelet of 58 K. Peripheral blood smear showed atypical mononuclear cells, most probably blasts, with no signs of Nancy rods. 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 MRI of the brain is negative for features indicative of T[employer] E[employer] INST[employer]ER involvement or acute intracranial abnormalities. Scrotal ultrasound showed normal scrotum and testes with no evidence of testicular involvement. Bone marrow biopsy by IR on 03/15/2024 showed B-ALL, NGS showed TCF3-PBX1 fusion and an NSD2 (WHSC1 or MMSET) [id number] alteration (VAF 32.32%) with 90% blasts. Started on HyperCVAD+R Part A cycle 1 on 03/15/2024. Bone marrow biopsy done on 04/04/2024 before Cycle 1B; MRD negative, ClonoSEQ B-cell tracking detected residual sequences (three residual clonal cells per million nucleated cells). -- Admitted on 08/19 as planned for HyperCVAD+R 4A with IT chemo on Days 1 and 4 -- Labs reviewed, okay to proceed with Cycle 4A Day 1 today -- Plan to administer IT methotrexate today (Day 1), will plan to administer IT cytarabine on Day 4 -- Monitor CBC and CMP daily Chemotherapy regimen Hyper-CVAD Chemotherapy, Part A, alternating with high dose MTX and cytarabine, cycle 4A initiated on 08/20 (Day 1 today) - Cyclophosphamide (Cytoxan) 300 mg/m2 IV over 2 hours every 12 hours on days 1 to 3 - Vincristine (Oncovin) 2 mg IV once per day on days 4 and 11 (Day 11 to be scheduled outpatient with Rituximab) - Doxorubicin (Adriamycin) 50 mg/m2 IV continuous infusion over 24 hours, started on day 4 - Dexamethasone (Decadron) 40 mg IV or PO once per day on days 1 to 4, 11 to 14 - Rituximab 375 mg/m2 IV (to be scheduled outpatient) Supportive medications - Mesna (Mesnex) 600 mg/m2/day IV continuous infusion over 72 hours, started on day 1, starting 1 hour before Cyclophosphamide (Cytoxan) and completed 12 hours after the last dose of Cyclophosphamide (Cytoxan) - Filgrastim (Neupogen) 5 mcg/kg SC once per day, starting 24 hours after completion of intensive courses of chemotherapy (day 5 for part A, day 4 for part B), given until ANC greater than 1000/uL VS outpatient Neulasta. 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 Antibiotic prophylaxis: - Acyclovir 400 mg PO BID While on treatment - Levaquin 500 mg PO daily while on treatment - Fluconazole 400 mg PO daily while on treatment - Bactrim DS PO MWF while on treatment - Augmentin 875/125 BID (due to dental infection) Anemia secondary to chemotherapy and/or underlying disease: - Transfuse RBC for Hgb < 7g/dl. Use irradiated blood products only. - Hgb 8.9 today, no need for transfusion Patient seen and staffed with Dr. Barrientos Addendum: Patient seen and examined on 08/20/24 with the fellow, Dr. Gordon. Labs and clinical history reviewed. Physical examination completed and findings discussed with team. A total of 30 mins used in reviewing test results, creating a treatment plan and completing the documentation process. Ernestina is doing well. Tolerated 4A of R- HyperCVAD. Will come back in 3 weeks for 4B. Needs IT chemo and then D11 Vincristine still. Heike Barrientos MD Problem List/Past Medical History Ongoing B-cell acute lymphoblastic leukemia Intellectual disability Procedure/Surgical History ear tubes tonsillectomy Medications Inpatient acyclovir, 400 mg= 2 capsule(s), Oral, bid alteplase(Cathflo Activase), 2 mg= 2 mL, Catheter Dwell, Bedside, PRN alteplase(Cathflo Activase), 2 mg= 2 mL, Catheter Dwell, Bedside, PRN amoxicillin-clavulanate(amoxicillin-cl avulanate (Augmentin) 875 mg-125 mg oral tablet), 875 mg= 1 Tablet(s), Oral, bid enoxaparin(enoxaparin - prophylactic dosing), 40 mg= 0.4 mL, Subcutaneous, At Bedtime fluconazole, 400 mg= 2 Tablet(s), Oral, Daily gabapentin, 100 mg= 1 capsule(s), Oral, bid heparin flush(Heparin Lock Flush), 300 units= 3 mL, IV Push, Once, PRN heparin flush(Heparin Lock Flush), 300 units= 3 mL, IV Push, Once, PRN HYDROmorphone(Dilaudid Inj), 0.5 mg= 0.5 mL, Slow IV Push, q6h, PRN hydrOXYzine(hydrOXYzine hydrochloride 25 mg oral tablet), 25 mg= 1 Tablet(s), Oral, tid, PRN influenza virus vaccine, inactivated(influenza virus Vaccine PF 0.5 mL Syr Inj >= 6 months), 0.5 mL, IM, Unscheduled levoFLOXacin(levoFLOXacin 500 mg oral tablet), 500 mg= 1 Tablet(s), Oral, Daily loperamide, 1 mg, Oral, qid, PRN morphine(MS Contin), 15 mg= 1 Tablet(s), Oral, q12h oxyCODONE(_oxyCODONE 5 mg oral tablet), 5 mg= 1 Tablet(s), Oral, q6h, PRN prochlorperazine, 10 mg= 1 Tablet(s), Oral, tid sertraline(Zoloft), 50 mg= 1 Tablet(s), Oral, Daily sulfamethoxazole-trimethoprim(Bactrim DS), 160 mg= 1 Tablet(s), Oral, qM W F Home acetaminophen(acetaminophen 500 mg oral tablet), 1000 mg= 2 Tablet(s), Oral, q6h, PRN acetaminophen-HYDROcodone(acetaminophe n-hydrocodone 325 mg-5 mg oral tablet), 1 Tablet(s), Oral, q6h, PRN acyclovir(acyclovir 200 mg oral capsule), 400 mg= 2 capsule(s), Oral, bid, 2 refills amoxicillin-clavulanate(amoxicillin-cl avulanate (Augmentin) 875 mg-125 mg oral tablet), 1 Tablet(s), Oral, bid dexAMETHAsone(dexAMETHAsone 4 mg oral tablet), 40 mg, Oral, Daily fluconazole(fluconazole 200 mg oral tablet), 400 mg= 2 Tablet(s), Oral, Daily fluconazole(fluconazole 200 mg oral tablet), 400 mg= 2 Tablet(s), Oral, Daily gabapentin(gabapentin 100 mg oral capsule), 100 mg= 1 capsule(s), Oral, bid gabapentin(gabapentin 100 mg oral capsule), 100 mg= 1 capsule(s), Oral, bid, 1 refills hydrOXYzine(hydrOXYzine hydrochloride 25 mg oral tablet), 25 mg= 1 Tablet(s), Oral, tid, PRN ibuprofen(ibuprofen 200 mg oral tablet), 400 mg= 2 Tablet(s), Oral, q6h, PRN lactobacillus acidophilus(Acidophilus Probiotic Blend oral capsule), 1 capsule(s), Oral, Daily levoFLOXacin(levoFLOXacin 500 mg oral tablet), 500 mg= 1 Tablet(s), Oral, Daily, 3 refills loperamide(loperamide 2 mg oral tablet), See Instructions, 1 refills ondansetron(ondansetron 8 mg oral tablet, disintegrating), 8 mg= 1 Tablet(s), Oral, tid, 1 refills prochlorperazine(prochlorperazine 10 mg oral tablet), 10 mg= 1 Tablet(s), Oral, tid, 1 refills sertraline(Zoloft 50 mg oral tablet), 50 mg= 1 Tablet(s), Oral, Daily, 3 refills sulfamethoxazole-trimethoprim(Bactrim DS 800 mg-160 mg oral tablet), 160 mg= 1 Tablet(s), Oral, qM W F, 1 refills Allergies NKA Social History Smoking Status Never smoker Alcohol - Denies Alcohol Use Substance Abuse Use:Current Frequency:1-2 times per week Tobacco - Denies Tobacco Use Family History Immunizations Lab Results CBC (08/20/24) WBC 4.19 Hgb L 8.9 Hct L 28.9 MCV H 101.8 PLT 205 Comprehensive Metabolic Panel (08/20/24) Na+ 141 K+ 3.9 Cl- 104 CO2 30 Anion gap 11 GLU 87 BUN 8 Creat 0.7 Estimated GFR f 132 Estimated GFR f Not calculated Ca 9.0 Alk Phos 89 AST 26 ALT 19 T Bili 0.30 Total Protein 6.0 Alb 3.8 Hemolysis Index 0 Icteria Index 0 Lipemia Index 0 Diagnostic Results 08/20/2024 Hem Oncology IM Consult Note Subjective Mr. Do was seen resting in bed today. He is feeling well today, vital signs are stable. Labs are without need for transfusion. He finished Cytarabine early this morning, he will discharge today and return to [facility] on 07/26/24 for Neulasta, Rituximab and IT Methotrexate. Review of Systems Negative except as seen in the HPI Objective Vitals and Measurements T: 36.8 C TMIN: 36.1 C TMAX: 36.9 C HR: 78 RR: 18 BP: 100/55 SpO2: 99% Physical Exam General: No acute distress HEENT: Extraocular movements are intact, conjunctival without erythema. Mouth: Multiple missing teeth around left upper row. Neck: Supple Respiratory: Lungs are clear to auscultation. No wheezes, rubs, or rhonchi. Cardiovascular: Regular rate and rhythm. Normal S1 and S2. No murmurs or gallops. Abdomen: Soft, nontender, and non-distended. Skin: No obvious rashes, lesions, or skin breakdown. Extremities: No LE edema. Neurological: No focal deficits noted. Psychiatric: Alert and oriented. Cooperative, normal affect. Lab Results Test Name Test Result Date/Time WBC 5.80 x10(9)/L 07/24/2024 05:28 [employer] HGB 9.8 g/dL 07/24/2024 05:28 [employer] HCT 30.3 % 07/24/2024 05:28 [employer] MCV 94.4 fL 07/24/2024 05:28 [employer] PLT 195 x10(9)/L 07/24/2024 05:28 [employer] Sodium 142 mmol/L 07/23/2024 02:28 [employer]AL Potassium 3.8 mmol/L 07/23/2024 02:28 [employer] Chloride 103 mmol/L 07/23/2024 02:28 [employer] CO2 33 mmol/L 07/23/2024 02:28 [employer] Glucose Lvl 125 mg/dL 07/23/2024 02:28 [employer] BUN 5 mg/dL 07/23/2024 02:28 [employer] Creatinine, standardized 0.5 mg/dL 07/23/2024 02:28 [employer] T Bili 0.50 mg/dL 07/23/2024 02:28 [employer] Alkaline Phosphatase 101 U/L 07/23/2024 02:28 [employer]ICE [employer] AST-SGOT 71 U/L 07/23/2024 02:28 [employer]ICE [employer]ESSIONAL ALT-SGPT 175 U/L 07/23/2024 02:28 [employer]ESSION[employer] Assessment/Plan Patient Summary Primary Oncologist: Dr. Barrientos Mr. Do is a 24-year-old male patient of Dr. Barrientos with a medical history significant for a presumed intellectual disability and B cell ALL which was diagnosed in 02/2024. He underwent a BM biopsy on 03/15/24 which was consistent with a diagnosis of B ALL with 90 % blasts. Patient received HyperCVAD cycle 1A and 1B inpatient cycle 1B finishing on 04/16/24. He was admitted on 04/26/24 for a febrile illness suspected to be secondary to a dental infection, he was originally due for Cycle 2A on 04/29/24, we initiated on 05/02/24. He was admitted to neurosurgery on 05/23/2024 and had [place] reservoir placement. He is admitted for initiation of HyperCVAD cycle 3B. He is due to discharge today and will return on 07/26/24 for Rituximab, Neulasta and IT Methotrexate. Chemotherapy regimen Hyper-CVAD Chemotherapy, Part B Methotrexate - 200 mg/m2 IV over 2 hours on Day 1 followed by - 800 mg/m2; IV continuous infusion over 22 hours on Day 1 - Cytarabine (age <60 years) 3,000 mg/mm2; IV over 3 hours every 12 hours for 4 doses on Days 2 and 3 (delayed by one day due to transaminitis) Alkaline hydration is required pre- and post-administration of high-dose methotrexate. Leucovorin - 50 mg IV over 15 minutes on Day 2 administered 12 hours after completion of 22-hour methotrexate infusion followed by - 15 mg IV over 15 minutes or PO every 6 hours for at least 8 doses (until methotrexate serum concentration is <0.05 micromol/L) - Leucovorin dose should be titrated for delayed methotrexate clearance. IT Chemotherapy - Cytarabine 100 mg intrathecal on Day 2 of Cycles 1B to 4A (Administered on 07/20/24) - Methotrexate 12 mg intrathecal on Day 7 of Cycles 1B to 4A Supportive medications - Filgrastim (Neupogen) 5 mcg/kg SC once per day, starting 24 hours after completion of intensive courses of chemotherapy (day 5 for part A, day 4 for part B), given until ANC greater than 1000/uL VS outpatient Neulasta. #B-cell acute lymphoblastic leukemia -Provide supportive transfusions to keep hemoglobin above 7 g/dL and platelet count above 10 K -Strictly use irradiated blood products. -Avoid using Tylenol and NSAIDs for pain control. #Transaminitis, - Patient has had elevated LFTs in the past but fluctuates within 100s. - US abdomen 05/25/2024 showed cholelithiasis with no cholecystitis. - Hepatitis panel negative, Tylenol level, salicylate level unremarkable. EBV, CMV, toxoplasmosis results pending. - Held fluconazole for 2-3 days and delayed cytarabine for a day, resumed with 20 % dose reduction on 07/22, proceeding with Day 2 of cytarabine today. Antibiotic prophylaxis: - Acyclovir 400 mg PO BID - Levaquin 500 mg PO daily - Fluconazole 200 mg PO daily - Amoxicillin 875 mg twice daily The patient was seen and staffed with attending physician, Dr. Barrientos. We will plan for Rituximab and Neulasta on 07/26/24. Luis Badillo MD PGY4 Hematology Oncology Fellow [facility] Addendum: Patient examined on 05/24/[address] Badillo, fellow. Labs were reviewed. Labs are also trended and the chemotherapy cycle date and time we discussed. Patient is completing third block of chemotherapy and also has completed concurrent intrathecal chemo using the Ommaya shunt. His methotrexate levels have come down to nontoxic levels. He will need the 8 intrathecal methotrexate. This can be done in the clinic along with the rituximab. A total of 30 minutes was used in reviewing the labs doing a physical exam and completing the documentation process. Heike Barrientos MD 07/24/2024 Hem Oncology IM Consult Note Subjective The patient was seen resting in bed during rounds today. He does endorse some generalized bodyaches, particularly back pain but this is unchanged over the last few days. His vital signs continue to be stable today and labs are without the need for any transfusions. He will receive his second day of cytarabine today and the day 3 of his HyperCVAD cycle 3B. Review of Systems Negative except as stated in the HPI Objective Vitals and Measurements T: 36.8 C TMIN: 36.7 C TMAX: 36.9 C HR: 86 RR: 18 BP: 115/72 SpO2: 97% Physical Exam General: No acute distress HEENT: Extraocular movements are intact, conjunctival without erythema. Mouth: Multiple missing teeth around left upper row. Neck: Supple Respiratory: Lungs are clear to auscultation. No wheezes, rubs, or rhonchi. Cardiovascular: Regular rate and rhythm. Normal S1 and S2. No murmurs or gallops. Abdomen: Soft, nontender, and non-distended. Skin: No obvious rashes, lesions, or skin breakdown. Extremities: No LE edema. Neurological: No focal deficits noted. Psychiatric: Alert and oriented. Cooperative, normal affect. Lab Results Test Name Test Result Date/Time WBC 5.74 x10(9)/L 07/23/2024 02:28 DIRECT SERVICE PROFESSIONAL HGB 10.2 g/dL 07/23/2024 02:28 DIRECT SERVICE PROFESSIONAL HCT 31.4 % 07/23/2024 02:28 DIRECT SERVICE PROFESSIONAL MCV 92.1 fL 07/23/2024 02:28 DIRECT SERVICE PROFESSIONAL PLT 230 x10(9)/L 07/23/2024 02:28 DIRECT SERVICE PROFESSIONAL Absolute Granulocytes 5.20 x10(9)/L 07/23/2024 02:28 DIRECT SERVICE PROFESSIONAL Sodium 142 mmol/L 07/23/2024 02:28 DIRECT SERVICE PROFESSIONAL Potassium 3.8 mmol/L 07/23/2024 02:28 DIRECT SERVICE PROFESSIONAL Chloride 103 mmol/L 07/23/2024 02:28 DIRECT SERVICE PROFESSIONAL CO2 33 mmol/L 07/23/2024 02:28 DIRECT SERVICE PROFESSIONAL Glucose Lvl 125 mg/dL 07/23/2024 02:28 DIRECT SERVICE PROFESSIONAL BUN 5 mg/dL 07/23/2024 02:28 DIRECT SERVICE PROFESSIONAL Creatinine, standardized 0.5 mg/dL 07/23/2024 02:28 DIRECT SERVICE PROFESSIONAL Calcium 9.5 mg/dL 07/23/2024 02:28 DIRECT SERVICE PROFESSIONAL T Bili 0.50 mg/dL 07/23/2024 02:28 DIRECT SERVICE PROFESSIONAL Alkaline Phosphatase 101 U/L 07/23/2024 02:28 DIRECT SERVICE PROFESSIONAL AST-SGOT 71 U/L 07/23/2024 02:28 DIRECT SERVICE PROFESSIONAL ALT-SGPT 175 U/L 07/23/2024 02:28 DIRECT SERVICE PROFESSIONAL Assessment/Plan Patient Summary Primary Oncologist: Dr. Barrientos Mr. Do is a 24-year-old male patient of Dr. Barrientos with a medical history significant for a presumed intellectual disability and B cell ALL which was diagnosed in 02/2024. He underwent a BM biopsy on 03/15/24 which was consistent with a diagnosis of B ALL with 90 % blasts. Patient received HyperCVAD cycle 1A and 1B inpatient cycle 1B finishing on 04/16/24. He was admitted on 04/26/24 for a febrile illness suspected to be secondary to a dental infection, he was originally due for Cycle 2A on 04/29/24, we initiated on 05/02/24. He was admitted to neurosurgery on 05/23/2024 and had Rickham reservoir placement. He is admitted for initiation of HyperCVAD cycle 3B. He will initiate Day 2 of Cycle 3B today, this was delayed due to transaminitis. Chemotherapy regimen Hyper-CVAD Chemotherapy, Part B Methotrexate - 200 mg/m2 IV over 2 hours on Day 1 followed by - 800 mg/m2; IV continuous infusion over 22 hours on Day 1 - Cytarabine (age <60 years) 3,000 mg/mm2; IV over 3 hours every 12 hours for 4 doses on Days 2 and 3 (delayed by one day due to transaminitis) Alkaline hydration is required pre- and post-administration of high-dose methotrexate. Leucovorin - 50 mg IV over 15 minutes on Day 2 administered 12 hours after completion of 22-hour methotrexate infusion followed by - 15 mg IV over 15 minutes or PO every 6 hours for at least 8 doses (until methotrexate serum concentration is <0.05 micromol/L) - Leucovorin dose should be titrated for delayed methotrexate clearance. IT Chemotherapy - Cytarabine 100 mg intrathecal on Day 2 of Cycles 1B to 4A (Administered on 07/20/24) - Methotrexate 12 mg intrathecal on Day 7 of Cycles 1B to 4A Supportive medications - Filgrastim (Neupogen) 5 mcg/kg SC once per day, starting 24 hours after completion of intensive courses of chemotherapy (day 5 for part A, day 4 for part B), given until ANC greater than 1000/uL VS outpatient Neulasta. #B-cell acute lymphoblastic leukemia -Provide supportive transfusions to keep hemoglobin above 7 g/dL and platelet count above 10 K -Strictly use irradiated blood products. -Avoid using Tylenol and NSAIDs for pain control. #Transaminitis, - Patient has had elevated LFTs in the past but fluctuates within 100s. - US abdomen 05/25/2024 showed cholelithiasis with no cholecystitis. - Hepatitis panel negative, Tylenol level, salicylate level unremarkable. EBV, CMV, toxoplasmosis results pending. - holding fluconazole for 2-3 days and delayed cytarabine for a day, resumed with 20 % dose reduction on 07/22, proceeding with Day 2 of cytarabine today. Antibiotic prophylaxis: - Acyclovir 400 mg PO BID - Levaquin 500 mg PO daily - Fluconazole 200 mg PO daily: Hold for 2-3 days due to worsening transaminitis - Amoxicillin 875 mg twice daily The patient was seen and staffed with attending physician, Dr. Barrientos. We will plan for Rituximab and Neulasta on 07/26/24. Luis Badillo MD PGY4 Hematology Oncology Fellow [facility] Addendum: Patient seen and examined on 07/23/24 with the fellow, Dr. Badillo. Labs and clinical history reviewed. Physical examination completed and findings discussed with team. A total of 30 mins used in reviewing test results, creating a treatment plan and completing the documentation process. Patient has comlete 3B of HyperCVAD. Tolerating it well. ARTEMIO-C was dose reduced due to transaminitis. IT chemo was given. CSF was negative. Will give D8 IT chemo with Rituxan next. Heike Barrientos MD 07/23/2024 Hem Oncology IM Consult Note Subjective Mr. Do was seen resting in bed during rounds today. He is having generalized bodyaches but otherwise denies any other systemic symptoms. His vital signs have been stable, liver function is improving today so we will proceed with day 2 of HyperCVAD 3B and initiate cytarabine. Review of Systems Negative except as stated in the HPI Objective Vitals and Measurements T: 37.3 C TMIN: 36.7 C TMAX: 37.3 C HR: 84 RR: 14 BP: 101/58 SpO2: 96% Physical Exam General: No acute distress HEENT: Extraocular movements are intact, conjunctival without erythema. Mouth: Multiple missing teeth around left upper row. Neck: Supple Respiratory: Lungs are clear to auscultation. No wheezes, rubs, or rhonchi. Cardiovascular: Regular rate and rhythm. Normal S1 and S2. No murmurs or gallops. Abdomen: Soft, nontender, and non-distended. Skin: No obvious rashes, lesions, or skin breakdown. Extremities: No LE edema. Neurological: No focal deficits noted. Psychiatric: Alert and oriented. Cooperative, normal affect. Lab Results Test Name Test Result Date/Time WBC 3.34 x10(9)/L 07/22/2024 02:36 DIRECT SERVICE PROFESSIONAL HGB 9.8 g/dL 07/22/2024 02:36 DIRECT SERVICE PROFESSIONAL HCT 30.6 % 07/22/2024 02:36 DIRECT SERVICE PROFESSIONAL MCV 93.9 fL 07/22/2024 02:36 DIRECT SERVICE PROFESSIONAL PLT 205 x10(9)/L 07/22/2024 02:36 DIRECT SERVICE PROFESSIONAL Absolute Granulocytes 2.10 x10(9)/L 07/22/2024 02:36 DIRECT SERVICE PROFESSIONAL Sodium 143 mmol/L 07/22/2024 02:36 DIRECT SERVICE PROFESSIONAL Potassium 3.4 mmol/L 07/22/2024 02:36 DIRECT SERVICE PROFESSIONAL Chloride 105 mmol/L 07/22/2024 02:36 DIRECT SERVICE PROFESSIONAL CO2 35 mmol/L 07/22/2024 02:36 DIRECT SERVICE PROFESSIONAL Glucose Lvl 106 mg/dL 07/22/2024 02:36 DIRECT SERVICE PROFESSIONAL BUN <5 mg/dL 07/22/2024 02:36 DIRECT SERVICE PROFESSIONAL Creatinine, standardized 0.5 mg/dL 07/22/2024 02:36 DIRECT SERVICE PROFESSIONAL Calcium 8.7 mg/dL 07/22/2024 02:36 DIRECT SERVICE PROFESSIONAL Magnesium 1.50 mg/dL 07/22/2024 02:36 DIRECT SERVICE PROFESSIONAL Phosphorus 4.0 mg/dL 07/22/2024 02:36 DIRECT SERVICE PROFESSIONAL T Bili 0.39 mg/dL 07/22/2024 02:36 DIRECT SERVICE PROFESSIONAL Alkaline Phosphatase 97 U/L 07/22/2024 02:36 DIRECT SERVICE PROFESSIONAL AST-SGOT 89 U/L 07/22/2024 02:36 DIRECT SERVICE PROFESSIONAL ALT-SGPT 185 U/L 07/22/2024 02:36 DIRECT SERVICE PROFESSIONAL Diagnostic Results FINAL DIAGNOSIS CEREBROSPINAL FLUID: Negative for Acute Leukemia. Please see previous material ([id number], [id number], [id number], [id number]) Diagnosis Comment Microscopic description: Review of Luo stained CSF cytospin preparation reveals background small mature monocytes, a few monocytes and and scattered neutrophils. No blast cell identified. [1] Assessment/Plan Patient Summary Primary Oncologist: Dr. Barrientos Mr. Do is a 24-year-old male patient of Dr. Barrientos with a medical history significant for a presumed intellectual disability and B cell ALL which was diagnosed in 02/2024. He underwent a BM biopsy on 03/15/24 which was consistent with a diagnosis of B ALL with 90 % blasts. Patient received HyperCVAD cycle 1A and 1B inpatient cycle 1B finishing on 04/16/24. He was admitted on 04/26/24 for a febrile illness suspected to be secondary to a dental infection, he was originally due for Cycle 2A on 04/29/24, we initiated on 05/02/24. He was admitted to neurosurgery on 05/23/2024 and had Rickham reservoir placement. He is admitted for initiation of HyperCVAD cycle 3B. He will initiate Day 2 of Cycle 3B today, this was delayed due to transaminitis. #Transaminitis, - Patient has had elevated LFTs in the past but fluctuates within 100s. - US abdomen 05/25/2024 showed cholelithiasis with no cholecystitis. - Hepatitis panel negative, Tylenol level, salicylate level unremarkable. EBV, CMV, toxoplasmosis results pending. - holding fluconazole for 2-3 days and delayed cytarabine for a day, resumed with 20 % dose reduction today on 07/22 Chemotherapy regimen Hyper-CVAD Chemotherapy, Part B Methotrexate - 200 mg/m2 IV over 2 hours on Day 1 followed by - 800 mg/m2; IV continuous infusion over 22 hours on Day 1 - Cytarabine (age <60 years) 3,000 mg/mm2; IV over 3 hours every 12 hours for 4 doses on Days 2 and 3 Alkaline hydration is required pre- and post-administration of high-dose methotrexate. Leucovorin - 50 mg IV over 15 minutes on Day 2 administered 12 hours after completion of 22-hour methotrexate infusion followed by - 15 mg IV over 15 minutes or PO every 6 hours for at least 8 doses (until methotrexate serum concentration is <0.05 micromol/L) - Leucovorin dose should be titrated for delayed methotrexate clearance. IT Chemotherapy - Cytarabine 100 mg intrathecal on Day 2 of Cycles 1B to 4A (Administered on 07/20/24) - Methotrexate 12 mg intrathecal on Day 7 of Cycles 1B to 4A Supportive medications - Filgrastim (Neupogen) 5 mcg/kg SC once per day, starting 24 hours after completion of intensive courses of chemotherapy (day 5 for part A, day 4 for part B), given until ANC greater than 1000/uL VS outpatient Neulasta. #B-cell acute lymphoblastic leukemia -Provide supportive transfusions to keep hemoglobin above 7 g/dL and platelet count above 10 K -Strictly use irradiated blood products. -Avoid using Tylenol and NSAIDs for pain control. Antibiotic prophylaxis: - Acyclovir 400 mg PO BID - Levaquin 500 mg PO daily - Fluconazole 200 mg PO daily: Hold for 2-3 days due to worsening transaminitis - Amoxicillin 875 mg twice daily Plan discussed with Dr. Barrientos. The patient was seen and staffed with attending physician, Dr. Lin. ​ Luis Badillo MD PGY4 Hematology Oncology Fellow [facility] [1] Cytology ; Morgan BRISCOE, [facility] 07/20/2024 14:18 CDT I personally saw and evaluated the patient on 07/22/24. I independently performed the critical/rush portions of the Evaluation and Management service and discussed the management with the author of this document. I agree with everything documented above except as may be indicated otherwise in my comments. Dr. Barrientos has been in charge of the patient's chemotherapy plan and overall management of this case and receives regular updates about his patients including Mr. Do today and immediately as indicated. Jaden Lin MD/FACP [facility] [employer] Technologist of Clinical Medicine Distance Education Faculty Liaison for CONTINUOUS IMPROVEMENT LEAD and Chair of Breast DW[employer] 07/22/2024 Hem Oncology IM Consult Note Subjective Chief Complaint No acute events overnight. Patient reports that he tolerated the IT chemo well yesterday and did not have as much nausea as he did last time. He denies any fever or chills. Objective Vitals and Measurements T: 36.6 C TMIN: 36.6 C TMAX: 36.9 C HR: 80 RR: 12 BP: 100/63 SpO2: 98% Physical Exam General: No acute distress HEENT: Extraocular movements are intact, conjunctival without erythema. Mouth: Multiple missing teeth around left upper row. Neck: Supple Respiratory: Lungs are clear to auscultation. No wheezes, rubs, or rhonchi. Cardiovascular: Regular rate and rhythm. Normal S1 and S2. No murmurs or gallops. Abdomen: Soft, nontender, and non-distended. Skin: No obvious rashes, lesions, or skin breakdown. Extremities: No LE edema. Neurological: No focal deficits noted. Psychiatric: Alert and oriented. Cooperative, normal affect. Lab Results CBC (07/21/24) WBC 4.53 Hgb L 9.4 Hct L 29.1 MCV H 95.4 PLT 189 Auto Differential % nRBC 0.0 Absolute nRBC 0.0 % Neutrophils 64.9 Absolute Neut 2.94 % Im Granulocyt H .70 Absolute Im Gra 0.03 % Lymphocytes 13.0 % Monocytes 21.0 % Eosinophils 0.2 % Basophils 0.2 Comprehensive Metabolic Panel (07/21/24) Na+ 145 K+ L 2.9 Cl- 105 CO2 H 34 Anion gap 9 GLU 124 BUN L <5 Creat L 0.4 Estimated GFR f 151 Estimated GFR f Not calculated Ca 9.2 Alk Phos 105 AST H 141 ALT H 207 T Bili 0.37 Total Protein L 5.6 Alb 3.4 Hemolysis Index 0 Icteria Index 0 Lipemia Index 0 Diagnostic Results Assessment/Plan Patient Summary Primary Oncologist: Dr. Barrientos Mr. Do is a 24-year-old male patient of Dr. Barrientos with a medical history significant for a presumed intellectual disability and B cell ALL which was diagnosed in 02/2024. He underwent a BM biopsy on 03/15/24 which was consistent with a diagnosis of B ALL with 90 % blasts. Patient received HyperCVAD cycle 1A and 1B inpatient cycle 1B finishing on 04/16/24. He was admitted on 04/26/24 for a febrile illness suspected to be secondary to a dental infection, he was originally due for Cycle 2A on 04/29/24, we initiated on 05/02/24. He was admitted to neurosurgery on 05/23/2024 and had Rickham reservoir placement. He is admitted for initiation of HyperCVAD cycle 3B. Due to worsening transaminitis, plan to hold fluconazole for 2-3 days and to delay cytarabine for a day and then dose reduce by 20%. #Transaminitis, worsening - Patient has had elevated LFTs in the past but fluctuates within 100s. - US abdomen 05/25/2024 showed cholelithiasis with no cholecystitis. - Hepatitis panel negative, Tylenol level, salicylate level unremarkable. EBV, CMV, toxoplasmosis results pending. - hold fluconazole for 2-3 days and to delay cytarabine for a day and then dose reduce by 20% Chemotherapy regimen Hyper-CVAD Chemotherapy, Part B Methotrexate - 200 mg/m2 IV over 2 hours on Day 1 followed by - 800 mg/m2; IV continuous infusion over 22 hours on Day 1 - Cytarabine (age <60 years) 3,000 mg/mm2; IV over 3 hours every 12 hours for 4 doses on Days 2 and 3 Alkaline hydration is required pre- and post-administration of high-dose methotrexate. Leucovorin - 50 mg IV over 15 minutes on Day 2 administered 12 hours after completion of 22-hour methotrexate infusion followed by - 15 mg IV over 15 minutes or PO every 6 hours for at least 8 doses (until methotrexate serum concentration is <0.05 micromol/L) - Leucovorin dose should be titrated for delayed methotrexate clearance. IT Chemotherapy - Methotrexate 12 mg intrathecal on Day 2 of Cycles 1B to 4A in future cycle day 1 - Cytarabine 100 mg intrathecal on Day 7 of Cycles 1B to 4A in the future cycle day 4 Supportive medications - Filgrastim (Neupogen) 5 mcg/kg SC once per day, starting 24 hours after completion of intensive courses of chemotherapy (day 5 for part A, day 4 for part B), given until ANC greater than 1000/uL VS outpatient Neulasta. #B-cell acute lymphoblastic leukemia -Provide supportive transfusions to keep hemoglobin above 7 g/dL and platelet count above 10 K -Strictly use irradiated blood products. -Avoid using Tylenol and NSAIDs for pain control. Antibiotic prophylaxis: - Acyclovir 400 mg PO BID - Levaquin 500 mg PO daily - Fluconazole 200 mg PO daily: Hold for 2-3 days due to worsening transaminitis - Amoxicillin 875 mg twice daily Plan discussed with Dr. Barrientos. The patient was seen and staffed with attending physician, Dr. Lin. I personally saw and evaluated the patient on 07/21/24. I independently performed the critical/rush portions of the Evaluation and Management service and discussed the management with the author of this document. I agree with everything documented above except as may be indicated otherwise in my comments. Dr. Barrientos has been in charge of the patient's chemotherapy plan and overall management of this case and receives regular updates about his patients including Mr. Do's today and immediately as indicated. Jaden Lin MD/FACP [facility] [employer] Technologist of Clinical Medicine Distance Education Faculty Liaison for CONTINUOUS IMPROVEMENT LEAD and Chair of Breast DW[employer] 07/21/2024 Hem Oncology IM Consult Note Subjective Mr. Do was seen resting in bed during rounds today. He has been tolerating treatment well, today is day 2 of hyper-CVAD part B, his high-dose methotrexate was not started until late in the day today due to an inadequate urine pH. His vital signs are stable and labs are adequate to continue treatment today. He was seen later in the afternoon with Dr. Barrientos and we proceeded with intrathecal chemotherapy with cytarabine through the Ommaya reservoir. Mr. Do tolerated the procedure without any adverse effects Review of Systems Negative except as stated in the HPI Objective Vitals and Measurements T: 36.7 C TMIN: 36.7 C TMAX: 36.8 C HR: 83 RR: 16 BP: 95/52 SpO2: 95% Physical Exam General: No acute distress HEENT: Extraocular movements are intact, conjunctival without erythema. Mouth: Multiple missing teeth around left upper row. Neck: Supple Respiratory: Lungs are clear to auscultation. No wheezes, rubs, or rhonchi. Cardiovascular: Regular rate and rhythm. Normal S1 and S2. No murmurs or gallops. Abdomen: Soft, nontender, and non-distended. Skin: No obvious rashes, lesions, or skin breakdown. Extremities: No LE edema. Pain with palpation around anterior legs. Neurological: No focal deficits noted. Psychiatric: Alert and oriented. Cooperative, normal affect. Lab Results Test Name Test Result Date/Time WBC 6.33 x10(9)/L 07/20/2024 05:35 CDT HGB 10.8 g/dL 07/20/2024 05:35 CDT HCT 33.2 % 07/20/2024 05:35 CDT MCV 93.8 fL 07/20/2024 05:35 CDT PLT 234 x10(9)/L 07/20/2024 05:35 CDT Absolute Granulocytes 5.73 x10(9)/L 07/20/2024 05:35 CDT Sodium 141 mmol/L 07/20/2024 05:35 CDT Potassium 3.7 mmol/L 07/20/2024 05:35 CDT Chloride 105 mmol/L 07/20/2024 05:35 CDT CO2 32 mmol/L 07/20/2024 05:35 CDT Glucose Lvl 141 mg/dL 07/20/2024 05:35 CDT BUN 8 mg/dL 07/20/2024 05:35 CDT Creatinine, standardized 0.6 mg/dL 07/20/2024 05:35 CDT Calcium 9.7 mg/dL 07/20/2024 05:35 CDT Magnesium 1.67 mg/dL 07/20/2024 05:35 CDT Phosphorus 2.7 mg/dL 07/20/2024 05:35 CDT T Bili 0.42 mg/dL 07/20/2024 05:35 CDT Uric Acid 7.0 mg/dL 07/20/2024 05:35 CDT Alkaline Phosphatase 115 U/L 07/20/2024 05:35 CDT AST-SGOT 52 U/L 07/20/2024 05:35 CDT ALT-SGPT 133 U/L 07/20/2024 05:35 CDT Assessment/Plan Primary Oncologist: Dr. Barrientos Mr. Do is a 24-year-old male patient of Dr. Barrientos with a medical history significant for a presumed intellectual disability and B cell ALL which was diagnosed in 02/2024. He underwent a BM biopsy on 03/15/24 which was consistent with a diagnosis of B ALL with 90 % blasts. Patient received HyperCVAD cycle 1A and 1B inpatient cycle 1B finishing on 04/16/24. He was admitted on 04/26/24 for a febrile illness suspected to be secondary to a dental infection, he was originally due for Cycle 2A on 04/29/24, we initiated on 05/02/24. He was admitted to neurosurgery on 05/23/2024 and had Rickham reservoir placement. He is presenting today for initiation of HyperCVAD cycle 3B, vitals and labs are adequate to proceed with treatment. #Transaminitis - Patient has had elevated LFTs in the past but fluctuates within 100s. - US abdomen 05/25/2024 showed cholelithiasis with no cholecystitis. - Hepatitis panel negative, Tylenol level, salicylate level unremarkable. EBV, CMV, toxoplasmosis results pending. - Okay to proceed with treatment today Chemotherapy regimen Hyper-CVAD Chemotherapy, Part B Methotrexate - 200 mg/m2 IV over 2 hours on Day 1 followed by - 800 mg/m2; IV continuous infusion over 22 hours on Day 1 - Cytarabine (age <60 years) 3,000 mg/mm2; IV over 3 hours every 12 hours for 4 doses on Days 2 and 3 Alkaline hydration is required pre- and post-administration of high-dose methotrexate. Leucovorin - 50 mg IV over 15 minutes on Day 2 administered 12 hours after completion of 22-hour methotrexate infusion followed by - 15 mg IV over 15 minutes or PO every 6 hours for at least 8 doses (until methotrexate serum concentration is <0.05 micromol/L) - Leucovorin dose should be titrated for delayed methotrexate clearance. IT Chemotherapy - Methotrexate 12 mg intrathecal on Day 2 of Cycles 1B to 4A in future cycle day 1 - Cytarabine 100 mg intrathecal on Day 7 of Cycles 1B to 4A in the future cycle day 4 Supportive medications - Filgrastim (Neupogen) 5 mcg/kg SC once per day, starting 24 hours after completion of intensive courses of chemotherapy (day 5 for part A, day 4 for part B), given until ANC greater than 1000/uL VS outpatient Neulasta. #B-cell acute lymphoblastic leukemia -Provide supportive transfusions to keep hemoglobin above 7 g/dL and platelet count above 10 K -Strictly use irradiated blood products. -Avoid using Tylenol and NSAIDs for pain control. Antibiotic prophylaxis: - Acyclovir 400 mg PO BID - Levaquin 500 mg PO daily - Fluconazole 200 mg PO daily - Amoxicillin 875 mg twice daily The patient was staffed with attending physician, Dr. Delia Badillo MD PGY 4 hematology oncology fellow [facility] [facility] I personally saw and evaluated the patient on 07/20/24. I independently performed the critical/rush portions of the Evaluation and Management service and discussed the management with the author of this document. I agree with everything documented above except as may be indicated otherwise in my comments. Dr. Barrientos has been in charge of the patient's chemotherapy plan and overall management of this case and receives regular updates about his patients including Mr. Do's today and immediately as indicated. Jaden Lin MD/FACP Shannan Jimenez Echo Technologist of Clinical Medicine Distance Education Faculty Liaison for CONTINUOUS IMPROVEMENT LEAD and Chair of Breast DWG 07/20/2024 Hem Oncology IM Consult Note Chief Compl aint Planned admission for HyperCVAD Part B Reason for Consultation Acute lymphoblastic leukemia B-cell Requesting Provider Dr. Dario Madsen History of Present Illness Mr. Couch is a 24-year-old gentleman who follows with Dr. Barrientos at [facility] for a diagnosis of B-cell acute lymphoblastic leukemia. He has been tolerating his treatment well without any significant side effects, he states that he has not had any acute events, hospital admissions, or any significant symptoms since his last chemotherapy cycle. He is presenting today as a planned admission for hyper-CVAD part B. We discussed the regimen again in detail as well as some of the common side effects which the patient verbalized understanding to. Currently, his only symptom is dental pain but this is not associated with any fevers, chills or night sweats. He has also not noticed any increased swelling or redness in the region. We discussed the plan for intrathecal chemotherapy through his [place] reservoir, which he was agreeable to. Review of Systems Negative except as stated in the HPI Physical Exam Vitals and Measurements T: 36.8 C TMIN: 36.7 C TMAX: 36.8 ?C HR: 81 RR: 18 BP: 99/61 SpO2: 98% WT: 72.1 kg BMI: 21.6 General: No acute distress HEENT: Extraocular movements are intact, conjunctival without erythema. Mouth: Multiple missing teeth around left upper row. Neck: Supple Respiratory: Lungs are clear to auscultation. No wheezes, rubs, or rhonchi. Cardiovascular: Regular rate and rhythm. Normal S1 and S2. No murmurs or gallops. Abdomen: Soft, nontender, and non-distended. Skin: No obvious rashes, lesions, or skin breakdown. Extremities: No LE edema. Pain with palpation around anterior legs. Neurological: No focal deficits noted. Psychiatric: Alert and oriented. Cooperative, normal affect. Assessment/Plan Primary Oncologist: Dr. Barrientos Mr. Do is a 24-year-old male patient of Dr. Barrientos with a medical history significant for a presumed intellectual disability and B cell ALL which was diagnosed in 02/2024. He underwent a BM biopsy on 03/15/24 which was consistent with a diagnosis of B ALL with 90 % blasts. Patient received HyperCVAD cycle 1A and 1B inpatient cycle 1B finishing on 04/16/24. He was admitted on 04/26/24 for a febrile illness suspected to be secondary to a dental infection, he was originally due for Cycle 2A on 04/29/24, we initiated on 05/02/24. He was admitted to neurosurgery on 05/23/2024 and had [place] reservoir placement. He is presenting today for initiation of HyperCVAD cycle 3B, vitals and labs are adequate to proceed with treatment. #Transaminitis - Patient has had elevated LFTs in the past but fluctuates within 100s. - US abdomen 05/25/2024 showed cholelithiasis with no cholecystitis. - Hepatitis panel negative, Tylenol level, salicylate level unremarkable. EBV, CMV, toxoplasmosis results pending. - Okay to proceed with treatment today Chemotherapy regimen Hyper-CVAD Chemotherapy, Part B Methotrexate 200 mg/m2 IV over 2 hours on Day 1 followed by 800 mg/m2; IV continuous infusion over 22 hours on Day 1 Cytarabine (age <60 years) 3,000 mg/mm2; IV over 3 hours every 12 hours for 4 doses on Days 2 and 3 Alkaline hydration is required pre- and post-administration of high-dose methotrexate. Leucovorin 50 mg IV over 15 minutes on Day 2 administered 12 hours after completion of 22-hour methotrexate infusion followed by 15 mg IV over 15 minutes or PO every 6 hours for at least 8 doses (until methotrexate serum concentration is <0.05 micromol/L) Leucovorin dose should be titrated for delayed methotrexate clearance. IT Chemotherapy Methotrexate 12 mg intrathecal on Day 2 of Cycles 1B to 4A in future cycle day 1 Cytarabine 100 mg intrathecal on Day 7 of Cycles 1B to 4A in the future cycle day 4 Supportive medications - Filgrastim (Neupogen) 5 mcg/kg SC once per day, starting 24 hours after completion of intensive courses of chemotherapy (day 5 for part A, day 4 for part B), given until ANC greater than 1000/uL VS outpatient Neulasta. #B-cell acute lymphoblastic leukemia -Provide supportive transfusions to keep hemoglobin above 7 g/dL and platelet count above 10 K -Strictly use irradiated blood products. -Avoid using Tylenol and NSAIDs for pain control. Antibiotic prophylaxis: - Acyclovir 400 mg PO BID - Levaquin 500 mg PO daily - Fluconazole 200 mg PO daily -Holding in the setting of elevated LFTs - Amoxicillin 875 mg twice daily The patient was staffed with attending physician, Dr. Delia Badillo MD PGY 4 hematology oncology fellow [facility] Problem List/Past Medical History Ongoing B-cell acute lymphoblastic leukemia Intellectual disability Procedure/Surgical History ear tubes tonsillectomy Medications Home acetaminophen(acetaminophen 500 mg oral tablet), 1000 mg= 2 Tablet(s), Oral, q6h, PRN acetaminophen-HYDROcodone(acetaminophe n-hydrocodone 325 mg-5 mg oral tablet), 1 Tablet(s), Oral, q6h, PRN acyclovir(acyclovir 200 mg oral capsule), 400 mg= 2 capsule(s), Oral, bid amoxicillin-clavulanate(amoxicillin-cl avulanate (Augmentin) 875 mg-125 mg oral tablet), 1 Tablet(s), Oral, bid, 2 refills fluconazole(fluconazole 200 mg oral tablet), 400 mg= 2 Tablet(s), Oral, Daily fluconazole(fluconazole 200 mg oral tablet), 400 mg= 2 Tablet(s), Oral, Daily gabapentin(gabapentin 100 mg oral capsule), 100 mg= 1 capsule(s), Oral, bid, 1 refills ibuprofen(ibuprofen 200 mg oral tablet), 400 mg= 2 Tablet(s), Oral, q6h, PRN lactobacillus acidophilus(Acidophilus Probiotic Blend oral capsule), 1 capsule(s), Oral, Daily levoFLOXacin(levoFLOXacin 500 mg oral tablet), 500 mg= 1 Tablet(s), Oral, Daily loperamide(loperamide 2 mg oral tablet), See Instructions, 1 refills morphine(MS Contin 15 mg oral tablet, extended release), 15 mg= 1 Tablet(s), Oral, q12h ondansetron(ondansetron 8 mg oral tablet, disintegrating), 8 mg= 1 Tablet(s), Oral, tid, 1 refills prochlorperazine(prochlorperazine 10 mg oral tablet), 10 mg= 1 Tablet(s), Oral, tid, 1 refills sulfamethoxazole-trimethoprim(Bactrim DS 800 mg-160 mg oral tablet), 160 mg= 1 Tablet(s), Oral, qM W F, 1 refills Allergies NKA Social History Smoking Status Never smoker Alcohol - Denies Alcohol Use Substance Abuse Use:Current Frequency:1-2 times per week Tobacco - Denies Tobacco Use Lab Results Test Name Test Result Date/Time WBC 4.69 x10(9)/L 07/19/2024 13:29 CDT HGB 11.1 g/dL 07/19/2024 13:29 CDT HCT 34.4 % 07/19/2024 13:29 CDT MCV 95.0 fL 07/19/2024 13:29 CDT PLT 274 x10(9)/L 07/19/2024 13:29 CDT Absolute Granulocytes 2.61 x10(9)/L 07/19/2024 13:29 CDT Sodium 139 mmol/L 07/19/2024 14:20 CDT Potassium 4.0 mmol/L 07/19/2024 14:20 CDT Chloride 104 mmol/L 07/19/2024 14:20 CDT CO2 24 mmol/L 07/19/2024 14:20 CDT Glucose Lvl 82 mg/dL 07/19/2024 14:20 CDT BUN 11 mg/dL 07/19/2024 14:20 CDT Creatinine, standardized 0.6 mg/dL 07/19/2024 14:20 CDT Calcium 10.1 mg/dL 07/19/2024 14:20 CDT Magnesium 1.80 mg/dL 07/19/2024 14:20 CDT Phosphorus 5.1 mg/dL 07/19/2024 14:20 CDT T Bili 0.42 mg/dL 07/19/2024 14:20 CDT Alkaline Phosphatase 131 U/L 07/19/2024 14:20 CDT AST-SGOT 62 U/L 07/19/2024 14:20 CDT ALT-SGPT 145 U/L 07/19/2024 14:20 CDT LDH 365 U/L 07/19/2024 14:20 CDT I personally saw and evaluated the patient on 07/19/24. I independently performed the critical/rush portions of the Evaluation and Management service and discussed the management with the author of this document. I agree with everything documented above except as may be indicated otherwise in my comments. Dr. Barrientos has been in charge of the patient's chemotherapy plan and overall management of this case and receives regular updates about his patients including Mr. Do's today and immediately as indicated. Jaden Lin MD/FACP Shannan Jimenez Echo Technologist of Clinical Medicine Distance Education Faculty Liaison for CONTINUOUS IMPROVEMENT LEAD and Chair of Breast DWG 07/19/2024 Hem Oncology IM Consult Note Subjective Chief Complaint Planned admission for HyperCVAD cycle 3A No acute events overnight. Patient says that he feels like blah today morning. Does not really know why and wonders if it is because he has not had lunch yet. Reassessed later during the day and he reports doing well. Objective Vitals and Measurements T: 37 C TMIN: 36.6 C TMAX: 37.3 C HR: 70 RR: 16 BP: 128/76 SpO2: 99% WT: 74.2 kg WT: 74.5 kg (Dosing) BMI: 22.2 Physical Exam General: NAD Head: Normocephalic, Atraumatic Eyes: sclera clear Respiratory: unlabored breathing Cardiovascular: noncyanotic distal perfusing extremities Abdomen: nondistended MSK: no gross deformities Neuro: alert and oriented, CN intact grossly Psych: cooperative Lab Results CBC (07/01/24) WBC 7.01 Hgb L 11.3 Hct L 34.6 MCV 94.0 PLT 175 Auto Differential % nRBC 0.0 Absolute nRBC 0.0 % Neutrophils 89.3 Absolute Neut 6.26 % Im Granulocyt H .90 Absolute Im Gra H 0.06 % Lymphocytes 2.4 % Monocytes 7.4 % Eosinophils 0.0 % Basophils 0.0 Basic Metabolic Panel (07/01/24) Na+ 139 K+ 3.9 Cl- 107 CO2 28 Anion gap 8 GLU 114 BUN 14 Creat L 0.5 Estimated GFR f 149 Estimated GFR f Not calculated Ca 9.7 Hemolysis Index 0 Icteria Index 0 Lipemia Index 0 Inpatient Medication Orders Bactrim DS: 160mg 1 Tablet(s) Oral qM W F MS Contin: 15mg 1 Tablet(s) Oral q12h Patch Removal: 1 Each Transdermal Once acyclovir: 400mg 2 capsule(s) Oral bid amoxicillin-clavulanate (Augmentin) 875 mg-125 mg oral table: 875mg 1 Tablet(s) Oral bid enoxaparin: 40mg 0.4 mL Subcutaneous At Bedtime filgrastim: 480mcg 0.8 mL Subcutaneous Daily fluconazole: 400mg 2 Tablet(s) Oral Daily gabapentin: 100mg 1 capsule(s) Oral bid lidocaine 5% topical film: 1 Patch Transdermal [id number] Cathflo Activase: 2mg 2 mL Catheter Dwell Bedside PRN (reason: Other; See comments) HYDROmorphone Inj: 0.5mg 0.5 mL Slow IV Push q6h PRN (reason: Pain, Breakthrough) Heparin Lock Flush: 300units 3 mL IV Push Once PRN (reason: Other; See comments) oxyCODONE 5 mg oral tablet: 5mg 1 Tablet(s) Oral q6h PRN (reason: Pain, Moderate) prochlorperazine: 10mg 1 Tablet(s) Oral tid PRN (reason: as needed for nausea/vomiting) Assessment and plan: 24-year-old male with a medical history significant for a presumed intellectual disability and B cell ALL which was diagnosed in 02/2024. He underwent a BM biopsy on 03/15/24 which was consistent with a diagnosis of B ALL with 90 % blasts. Patient received HyperCVAD cycle 1A and 1B inpatient with cycle 1B finishing on 04/16/24. He was admitted on 04/26/24 for a febrile illness suspected to be secondary to a dental infection and he was originally due for Cycle 2A on 04/29/24 which was initiated on 05/02/24. He was admitted to neurosurgery on 05/23/2024 and had [place] reservoir placement. He was scheduled to start HyperCVAD 2B on 05/24/24 which was delayed due to transaminitis and started on 05/27/24. Patient presents as a planned admission for HyperCVAD+R Cycle 3A. Proceed with Cycle 3A Day 5 today. B-cell Acute lymphoblastic leukemia Initial labs were significant for WBC count 69.4 K, hemoglobin of 5 g/dl, platelet of 58 K. Peripheral blood smear showed atypical mononuclear cells, most probably blasts, with no signs of Nancy rods. 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 MRI of the brain is negative for features indicative of TOWER EQUIPMENT INSTALLER involvement or acute intracranial abnormalities. Scrotal ultrasound showed normal scrotum and testes with no evidence of testicular involvement. Bone marrow biopsy by IR on 03/15/2024 showed B-ALL, NGS showed TCF3-PBX1 fusion and an NSD2 (WHSC1 or MMSET) [id number] alteration (VAF 32.32%) with 90% blasts. Started on HyperCVAD+R Part A cycle 1 on 03/15/2024. Bone marrow biopsy done on 04/04/2024 before Cycle 1B; MRD negative, ClonoSEQ B-cell tracking detected residual sequences (three residual clonal cells per million nucleated cells). -- Admitted on 06/27 as planned for HyperCVAD+R 3A with IT chemo on Days 1 and 4 -- Labs reviewed, okay to proceed with Cycle 3A Day 5 today -- s/p IT methotrexate 06/28 (Day 2), administered IT cytarabine today. -- Start Neupogen today. Patient will be discharged home with Neupogen and sister administers it. Deliver to bedside prior to discharge. -- Return to [facility] on 07/08/2024 for D12 for vincristine (originally due on 07/07 but it is Monday) and rituximab. -- Planned admission on 07/18/2024 for HyperCVAD cycle 3B. Will need IT chemo at that time as well. -- Stable to be discharged home. Chemotherapy regimen Hyper-CVAD Chemotherapy, Part A, alternating with high dose MTX and cytarabine, cycle 3A initiated on 06/27 (Day 3 today) - Cyclophosphamide (Cytoxan) 300 mg/m2 IV over 2 hours every 12 hours on days 1 to 3 - Vincristine (Oncovin) 2 mg IV once per day on days 4 and 11 (Day 11 to be scheduled outpatient) - Doxorubicin (Adriamycin) 50 mg/m2 IV continuous infusion over 24 hours, started on day 4 - Dexamethasone (Decadron) 40 mg IV or PO once per day on days 1 to 4, 11 to 14 - Rituximab 375 mg/m2 IV (to be scheduled outpatient) Supportive medications - Mesna (Mesnex) 600 mg/m2/day IV continuous infusion over 72 hours, started on day 1, starting 1 hour before Cyclophosphamide (Cytoxan) and completed 12 hours after the last dose of Cyclophosphamide (Cytoxan) - Filgrastim (Neupogen) 5 mcg/kg SC once per day, starting 24 hours after completion of intensive courses of chemotherapy (day 5 for part A, day 4 for part B), given until ANC greater than 1000/uL VS outpatient Neulasta. 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 Antibiotic prophylaxis: - Acyclovir 400 mg PO BID While on treatment - Levaquin 500 mg PO daily while on treatment - Fluconazole 200 mg PO daily while on treatment , Refill on discharge - Bactrim DS PO MWF while on treatment - Augmentin 875/125 BID due to dental infection Anemia secondary to chemotherapy and/or underlying disease: - Transfuse RBC for Hgb < 7g/dl. Use irradiated blood products only. - Hgb 11.3 today, no need for transfusion Patient seen and staffed with Dr. York I spent a total time of 30 minutes on this patient encounter which included but was not limited to personally reviewing history, previous encounters within our healthcare system when available, external records when appropriate, performing the rush aspects of the exam, reviewing orders, providing education to the patient/caregiver, and documentation in the medical record. This excludes any procedure time that may have been performed. All occurred on date of service. I discussed the patient's management with the fellow Dr Sol. I reviewed the note by the fellow and agree with those documented findings and plan of care. The patient was seen on 07/01/2024 . 07/01/2024 Hem Oncology IM Consult Note Subjective Chief Complaint B-ALL No acute events overnight. Day 4 of HyperCVAD cycle 3 8 today. Objective Vitals and Measurements T: 36.7 C TMIN: 36.7 C TMAX: 36.9 C HR: 72 RR: 14 BP: 134/74 SpO2: 97% WT: 74.1 kg WT: 74.5 kg (Dosing) BMI: 22.2 Physical Exam General: NAD Head: Normocephalic, Atraumatic Eyes: sclera clear Respiratory: unlabored breathing Cardiovascular: noncyanotic distal perfusing extremities Abdomen: nondistended MSK: no gross deformities Neuro: alert and oriented, CN intact grossly Psych: cooperative Lab Results CBC (06/30/24) WBC 9.32 Hgb L 11.0 Hct L 34.0 MCV 94.4 PLT 194 Auto Differential % nRBC 0.0 Absolute nRBC 0.0 % Neutrophils 92.3 Absolute Neut H 8.60 % Im Granulocyt H 1.40 Absolute Im Gra H 0.13 % Lymphocytes 3.1 % Monocytes 3.1 % Eosinophils 0.0 % Basophils 0.1 Comprehensive Metabolic Panel (06/30/24) Na+ 142 K+ 4.0 Cl- 106 CO2 27 Anion gap 13 GLU 126 BUN 13 Creat L 0.6 Estimated GFR f 141 Estimated GFR f Not calculated Ca 10.1 Alk Phos 77 AST 20 ALT 27 T Bili 0.42 Total Protein 6.3 Alb 3.7 Hemolysis Index 0 Icteria Index 0 Lipemia Index 0 Inpatient Medication Orders Bactrim DS: 160mg 1 Tablet(s) Oral qM W F MS Contin: 15mg 1 Tablet(s) Oral q12h Patch Removal: 1 Each Transdermal Once acyclovir: 400mg 2 capsule(s) Oral bid amoxicillin-clavulanate (Augmentin) 875 mg-125 mg oral table: 875mg 1 Tablet(s) Oral bid enoxaparin: 40mg 0.4 mL Subcutaneous At Bedtime fluconazole: 400mg 2 Tablet(s) Oral Daily gabapentin: 100mg 1 capsule(s) Oral bid lidocaine 5% topical film: 1 Patch Transdermal [id number] Cathflo Activase: 2mg 2 mL Catheter Dwell Bedside PRN (reason: Other; See comments) HYDROmorphone Inj: 0.5mg 0.5 mL Slow IV Push q6h PRN (reason: Pain, Breakthrough) Heparin Lock Flush: 300units 3 mL IV Push Once PRN (reason: Other; See comments) oxyCODONE 5 mg oral tablet: 5mg 1 Tablet(s) Oral q6h PRN (reason: Pain, Moderate) prochlorperazine: 10mg 1 Tablet(s) Oral tid PRN (reason: as needed for nausea/vomiting) Assessment and Plan: 24-year-old male with a medical history significant for a presumed intellectual disability and B cell ALL which was diagnosed in 02/2024. He underwent a BM biopsy on 03/15/24 which was consistent with a diagnosis of B ALL with 90 % blasts. Patient received HyperCVAD cycle 1A and 1B inpatient with cycle 1B finishing on 04/16/24. He was admitted on 04/26/24 for a febrile illness suspected to be secondary to a dental infection and he was originally due for Cycle 2A on 04/29/24 which was initiated on 05/02/24. He was admitted to neurosurgery on 05/23/2024 and had [place] reservoir placement. He was scheduled to start HyperCVAD 2B on 05/24/24 which was delayed due to transaminitis and started on 05/27/24. Patient presents as a planned admission for HyperCVAD+R Cycle 3A. Proceed with Cycle 3A Day 3 today. B-cell Acute lymphoblastic leukemia Initial labs were significant for WBC count 69.4 K, hemoglobin of 5 g/dl, platelet of 58 K. Peripheral blood smear showed atypical mononuclear cells, most probably blasts, with no signs of Nancy rods. 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 MRI of the brain is negative for features indicative of TOWER EQUIPMENT INSTALLER involvement or acute intracranial abnormalities. Scrotal ultrasound showed normal scrotum and testes with no evidence of testicular involvement. Bone marrow biopsy by IR on 03/15/2024 showed B-ALL, NGS showed TCF3-PBX1 fusion and an NSD2 (WHSC1 or MMSET) [id number] alteration (VAF 32.32%) with 90% blasts. Started on HyperCVAD+R Part A cycle 1 on 03/15/2024. Bone marrow biopsy done on 04/04/2024 before Cycle 1B; MRD negative, ClonoSEQ B-cell tracking detected residual sequences (three residual clonal cells per million nucleated cells). -- Admitted on 06/27 as planned for HyperCVAD+R 3A with IT chemo on Days 1 and 4 -- Labs reviewed, okay to proceed with Cycle 3A Day 4 today -- s/p IT methotrexate 06/28 (Day 2), will plan to administer IT cytarabine on 07/01 (Day 5) -- Monitor CBC and CMP daily Chemotherapy regimen Hyper-CVAD Chemotherapy, Part A, alternating with high dose MTX and cytarabine, cycle 3A initiated on 06/27 (Day 3 today) - Cyclophosphamide (Cytoxan) 300 mg/m2 IV over 2 hours every 12 hours on days 1 to 3 - Vincristine (Oncovin) 2 mg IV once per day on days 4 and 11 (Day 11 to be scheduled outpatient) - Doxorubicin (Adriamycin) 50 mg/m2 IV continuous infusion over 24 hours, started on day 4 - Dexamethasone (Decadron) 40 mg IV or PO once per day on days 1 to 4, 11 to 14 - Rituximab 375 mg/m2 IV (to be scheduled outpatient) Supportive medications - Mesna (Mesnex) 600 mg/m2/day IV continuous infusion over 72 hours, started on day 1, starting 1 hour before Cyclophosphamide (Cytoxan) and completed 12 hours after the last dose of Cyclophosphamide (Cytoxan) - Filgrastim (Neupogen) 5 mcg/kg SC once per day, starting 24 hours after completion of intensive courses of chemotherapy (day 5 for part A, day 4 for part B), given until ANC greater than 1000/uL VS outpatient Neulasta. 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 Antibiotic prophylaxis: - Acyclovir 400 mg PO BID While on treatment - Levaquin 500 mg PO daily while on treatment - Fluconazole 200 mg PO daily while on treatment - Bactrim DS PO MWF while on treatment - Augmentin 875/125 BID (due to dental infection) Anemia secondary to chemotherapy and/or underlying disease: - Transfuse RBC for Hgb < 7g/dl. Use irradiated blood products only. - Hgb 11 today, no need for transfusion Follow up: Currently, patient is scheduled for Neulasta and Rituximab in [facility] on 07/03. Will reach out to team on 07/01 to clarify but the plan is to prescribe Neupogen for 5 days on discharge and schedule day 11 Vincristine and Rituximab in [facility]. He will then need to scheduled in 3 weeks (07/18/24) in clinic and planned admit for HyperCVAD 3B. Patient seen and staffed with Dr. York I spent a total time of 30 minutes on this patient encounter which included but was not limited to personally reviewing history, previous encounters within our healthcare system when available, external records when appropriate, performing the rush aspects of the exam, reviewing orders, providing education to the patient/caregiver, and documentation in the medical record. This excludes any procedure time that may have been performed. All occurred on date of service. I discussed the patient's management with the fellow Dr Sol. I reviewed the note by the fellow and agree with those documented findings and plan of care. The patient was seen on 06/30/2024 . 06/30/2024 Hem Oncology IM Consult Note Subjective Chief Complaint Day 3 of Cycle 3A today. No acute events overnight. Reports feeling nauseous after the IT chemo yesterday. Denies fever or chills or any other concerns. Objective Vitals and Measurements T: 36.6 C TMIN: 36.1 C TMAX: 37 C HR: 81 RR: 16 BP: 128/78 SpO2: 97% WT: 74.3 kg WT: 74.5 kg (Dosing) BMI: 22.2 Physical Exam General: Awake and alert. In no apparent distress. HEENT: Normocephalic. Moist mucous membranes. Cardiovascular: RRR. No murmurs, rubs or gallops appreciated. Lungs: CTA bilaterally. No wheezes, rales or rhonchi. Abdomen: Non-tender, non-distended. Normoactive bowel sounds. Extremities: No edema. Neuro: No gross focal deficits Psych: Appropriate mood and affect. Lab Results CBC (06/29/24) WBC 9.47 Hgb L 10.8 Hct L 32.8 MCV 93.2 PLT 222 Auto Differential % nRBC 0.0 Absolute nRBC 0.0 % Neutrophils 90.8 Absolute Neut H 8.60 % Im Granulocyt H 1.70 Absolute Im Gra H 0.16 % Lymphocytes 3.9 % Monocytes 3.5 % Eosinophils 0.0 % Basophils 0.1 Comprehensive Metabolic Panel (06/29/24) Na+ 141 K+ 4.0 Cl- 106 CO2 27 Anion gap 12 GLU 135 BUN 11 Creat L 0.5 Estimated GFR f 143 Estimated GFR f Not calculated Ca 10.4 Alk Phos 77 AST 24 ALT 29 T Bili 0.37 Total Protein 6.5 Alb 3.8 Hemolysis Index 0 Icteria Index 0 Lipemia Index 0 Diagnostic Results Assessment/Plan Patient Summary 24-year-old male with a medical history significant for a presumed intellectual disability and B cell ALL which was diagnosed in 02/2024. He underwent a BM biopsy on 03/15/24 which was consistent with a diagnosis of B ALL with 90 % blasts. Patient received HyperCVAD cycle 1A and 1B inpatient with cycle 1B finishing on 04/16/24. He was admitted on 04/26/24 for a febrile illness suspected to be secondary to a dental infection and he was originally due for Cycle 2A on 04/29/24 which was initiated on 05/02/24. He was admitted to neurosurgery on 05/23/2024 and had [place] reservoir placement. He was scheduled to start HyperCVAD 2B on 05/24/24 which was delayed due to transaminitis and started on 05/27/24. Patient presents as a planned admission for HyperCVAD+R Cycle 3A. Proceed with Cycle 3A Day 3 today. B-cell Acute lymphoblastic leukemia Initial labs were significant for WBC count 69.4 K, hemoglobin of 5 g/dl, platelet of 58 K. Peripheral blood smear showed atypical mononuclear cells, most probably blasts, with no signs of Nancy rods. 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 MRI of the brain is negative for features indicative of T[employer] EQUIPMENT INSTALLER involvement or acute intracranial abnormalities. Scrotal ultrasound showed normal scrotum and testes with no evidence of testicular involvement. Bone marrow biopsy by IR on 03/15/2024 showed B-ALL, NGS showed TCF3-PBX1 fusion and an NSD2 (WHSC1 or MMSET) [id number] alteration (VAF 32.32%) with 90% blasts. Started on HyperCVAD+R Part A cycle 1 on 03/15/2024. Bone marrow biopsy done on 04/04/2024 before Cycle 1B; MRD negative, ClonoSEQ B-cell tracking detected residual sequences (three residual clonal cells per million nucleated cells). -- Admitted on 06/27 as planned for HyperCVAD+R 3A with IT chemo on Days 1 and 4 -- Labs reviewed, okay to proceed with Cycle 3A Day 3 today -- s/p IT methotrexate 06/28 (Day 2), will plan to administer IT cytarabine on 07/01 (Day 5) -- Monitor CBC and CMP daily Chemotherapy regimen Hyper-CVAD Chemotherapy, Part A, alternating with high dose MTX and cytarabine, cycle 3A initiated on 06/27 (Day 3 today) - Cyclophosphamide (Cytoxan) 300 mg/m2 IV over 2 hours every 12 hours on days 1 to 3 - Vincristine (Oncovin) 2 mg IV once per day on days 4 and 11 (Day 11 to be scheduled outpatient) - Doxorubicin (Adriamycin) 50 mg/m2 IV continuous infusion over 24 hours, started on day 4 - Dexamethasone (Decadron) 40 mg IV or PO once per day on days 1 to 4, 11 to 14 - Rituximab 375 mg/m2 IV (to be scheduled outpatient) Supportive medications - Mesna (Mesnex) 600 mg/m2/day IV continuous infusion over 72 hours, started on day 1, starting 1 hour before Cyclophosphamide (Cytoxan) and completed 12 hours after the last dose of Cyclophosphamide (Cytoxan) - Filgrastim (Neupogen) 5 mcg/kg SC once per day, starting 24 hours after completion of intensive courses of chemotherapy (day 5 for part A, day 4 for part B), given until ANC greater than 1000/uL VS outpatient Neulasta. 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 Antibiotic prophylaxis: - Acyclovir 400 mg PO BID While on treatment - Levaquin 500 mg PO daily while on treatment - Fluconazole 200 mg PO daily while on treatment - Bactrim DS PO MWF while on treatment - Augmentin 875/125 BID (due to dental infection) Anemia secondary to chemotherapy and/or underlying disease: - Transfuse RBC for Hgb < 7g/dl. Use irradiated blood products only. - Hgb 10.8 today, no need for transfusion Follow up: Currently, patient is scheduled for Neulasta and Rituximab in [facility] on 07/03. Will reach out to team on 07/01 to clarify but the plan is to prescribe Neupogen for 5 days on discharge and schedule day 11 Vincristine and Rituximab in [facility]. He will then need to scheduled in 3 weeks (07/18/24) in clinic and planned admit for HyperCVAD 3B. Patient seen and staffed with Dr. York I spent a total time of 30 minutes on this patient encounter which included but was not limited to personally reviewing history, previous encounters within our healthcare system when available, external records when appropriate, performing the rush aspects of the exam, reviewing orders, providing education to the patient/caregiver, and documentation in the medical record. This excludes any procedure time that may have been performed. All occurred on date of service. I discussed the patient's management with the fellow Dr Gordon. I reviewed the note by the fellow and agree with those documented findings and plan of care. The patient was seen on 06/29/2024 . Patient was seen while covering for BMT/ cellular therapy physician Dr Nation. .. 06/29/2024 Hem Oncology IM Consult Note Chief Compl aint History of Present Illness 24-year-old male with a medical history significant for a presumed intellectual disability and B cell ALL which was diagnosed in 02/2024. He underwent a BM biopsy on 03/15/24 which was consistent with a diagnosis of B ALL with 90 % blasts. Patient received HyperCVAD cycle 1A and 1B inpatient with cycle 1B finishing on 04/16/24. He was admitted on 04/26/24 for a febrile illness suspected to be secondary to a dental infection and he was originally due for Cycle 2A on 04/29/24 which was initiated on 05/02/24. He was admitted to neurosurgery on 05/23/2024 and had [place] reservoir placement. He was scheduled to start HyperCVAD 2B on 05/24/24 which was delayed due to transaminitis and started on 05/27/24. Patient presents as a planned admission for HyperCVAD+R Cycle 3A. Reports doing well since last discharge. Denies any recent infections, fever, chills. States that appetite is better. Denies any other concerns. Review of Systems Complete Review of Systems performed and negative except as otherwise noted in HPI. Physical Exam Vital Signs and Measurements HR: 96 RR: 16 BP: 124/66 SpO2: 99% HT: 182.8 cm WT: 74.5 kg WT: 74.5 kg (Dosing) WT: 74.5 kg (Dosing) BMI: 22.3 General: Awake and alert. In no apparent distress. HEENT: EOMI. Normocephalic. Moist mucous membranes. Cardiovascular: RRR. No murmurs, rubs or gallops appreciated. Lungs: CTA bilaterally. No wheezes, rales or rhonchi. Abdomen: Non-tender, non-distended. Normoactive bowel sounds. Extremities: No edema. Neuro: No gross focal deficits Psych: Appropriate mood and affect. Assessment/Plan 24-year-old male with a medical history significant for a presumed intellectual disability and B cell ALL which was diagnosed in 02/2024. He underwent a BM biopsy on 03/15/24 which was consistent with a diagnosis of B ALL with 90 % blasts. Patient received HyperCVAD cycle 1A and 1B inpatient with cycle 1B finishing on 04/16/24. He was admitted on 04/26/24 for a febrile illness suspected to be secondary to a dental infection and he was originally due for Cycle 2A on 04/29/24 which was initiated on 05/02/24. He was admitted to neurosurgery on 05/23/2024 and had [place] reservoir placement. He was scheduled to start HyperCVAD 2B on 05/24/24 which was delayed due to transaminitis and started on 05/27/24. Patient presents as a planned admission for HyperCVAD+R Cycle 3A. Proceed with Cycle 3A Day 2 today. B-cell Acute lymphoblastic leukemia Initial labs were significant for WBC count 69.4 K, hemoglobin of 5 g/dl, platelet of 58 K. Peripheral blood smear showed atypical mononuclear cells, most probably blasts, with no signs of Nancy rods. 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 MRI of the brain is negative for features indicative of T[employer] EQUIP[employer] INSTALLER involvement or acute intracranial abnormalities. Scrotal ultrasound showed normal scrotum and testes with no evidence of testicular involvement. Bone marrow biopsy by IR on 03/15/2024 showed B-ALL, NGS showed TCF3-PBX1 fusion and an NSD2 (WHSC1 or MMSET) [id number] alteration (VAF 32.32%) with 90% blasts. Started on HyperCVAD+R Part A cycle 1 on 03/15/2024. Bone marrow biopsy done on 04/04/2024 before Cycle 1B; MRD negative, ClonoSEQ B-cell tracking detected residual sequences (three residual clonal cells per million nucleated cells). -- Admitted on 06/27 as planned for HyperCVAD+R 3A with IT chemo on Days 1 and 4 -- Labs reviewed, okay to proceed with Cycle 3A Day 2 today -- Plan to administer IT methotrexate today (Day 2), will plan to administer IT cytarabine on 07/01 (Day 5) -- Monitor CBC and CMP daily Chemotherapy regimen Hyper-CVAD Chemotherapy, Part A, alternating with high dose MTX and cytarabine, cycle 3A initiated on 06/27 (Day 2 today) - Cyclophosphamide (Cytoxan) 300 mg/m2 IV over 2 hours every 12 hours on days 1 to 3 - Vincristine (Oncovin) 2 mg IV once per day on days 4 and 11 - Doxorubicin (Adriamycin) 50 mg/m2 IV continuous infusion over 24 hours, started on day 4 - Dexamethasone (Decadron) 40 mg IV or PO once per day on days 1 to 4, 11 to 14 - Rituximab 375 mg/m2 IV (to be scheduled outpatient) Supportive medications - Mesna (Mesnex) 600 mg/m2/day IV continuous infusion over 72 hours, started on day 1, starting 1 hour before Cyclophosphamide (Cytoxan) and completed 12 hours after the last dose of Cyclophosphamide (Cytoxan) - Filgrastim (Neupogen) 5 mcg/kg SC once per day, starting 24 hours after completion of intensive courses of chemotherapy (day 5 for part A, day 4 for part B), given until ANC greater than 1000/uL VS outpatient Neulasta. 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 Antibiotic prophylaxis: - Acyclovir 400 mg PO BID While on treatment - Levaquin 500 mg PO daily while on treatment - Fluconazole 200 mg PO daily while on treatment - Bactrim DS PO MWF while on treatment - Augmentin 875/125 BID (due to dental infection) Anemia secondary to chemotherapy and/or underlying disease: - Transfuse RBC for Hgb < 7g/dl. Use irradiated blood products only. - Hgb 11.6 today, no need for transfusion Patient seen and staffed with Dr. York Staging Information No information available Problem List/Past Medical History Ongoing B-cell acute lymphoblastic leukemia Intellectual disability Procedure/Surgical History ear tubes tonsillectomy Medications acetaminophen, 1000 mg= 2 Tablet(s), Oral, Once acetaminophen 500 mg oral tablet, 1000 mg= 2 Tablet(s), Oral, q6h, PRN acetaminophen-hydrocodone 325 mg-5 mg oral tablet, 1 Tablet(s), Oral, q6h, PRN Acidophilus Probiotic Blend oral capsule, 1 capsule(s), Oral, Daily acyclovir, 400 mg= 2 capsule(s), Oral, bid acyclovir 200 mg oral capsule, 400 mg= 2 capsule(s), Oral, bid amoxicillin-clavulanate (Augmentin) 875 mg-125 mg oral tablet, 875 mg= 1 Tablet(s), Oral, bid amoxicillin-clavulanate (Augmentin) 875 mg-125 mg oral tablet, 1 Tablet(s), Oral, bid, 2 refills Bactrim DS, 160 mg= 1 Tablet(s), Oral, qM W F Bactrim DS 800 mg-160 mg oral tablet, 160 mg= 1 Tablet(s), Oral, qM W F, 1 refills Cathflo Activase, 2 mg= 2 mL, Catheter Dwell, Bedside, PRN cycloPHOSphamide cycloPHOSphamide cytarabine dexAMETHAsone 4 mg oral tablet, 40 mg, Oral, Daily dexAMETHAsone po, 40 mg= 10 Tablet(s), Oral, Chemo Once dexAMETHAsone po, 40 mg= 10 Tablet(s), Oral, Chemo Once dexAMETHAsone po, 40 mg= 10 Tablet(s), Oral, Chemo Once diphenhydrAMINE, 50 mg= 1 mL, Slow IV Push, Chemo Once DOXOrubicin, 100 mg= 50 mL, 50 mg/m2, IVPB, Chemo Once enoxaparin, 40 mg= 0.4 mL, Subcutaneous, At Bedtime fluconazole, 400 mg= 2 Tablet(s), Oral, Daily fluconazole 200 mg oral tablet, 400 mg= 2 Tablet(s), Oral, Daily gabapentin, 100 mg= 1 capsule(s), Oral, bid gabapentin 100 mg oral capsule, 100 mg= 1 capsule(s), Oral, bid, 1 refills Heparin Lock Flush, 300 units= 3 mL, IV Push, Once, PRN HYDROmorphone Inj, 0.5 mg= 0.5 mL, Slow IV Push, q8h, PRN ibuprofen 200 mg oral tablet, 400 mg= 2 Tablet(s), Oral, q6h, PRN levoFLOXacin 500 mg oral tablet, 500 mg= 1 Tablet(s), Oral, Daily loperamide 2 mg oral tablet, See Instructions, 1 refills mesna MS Contin, 15 mg= 1 Tablet(s), Oral, q12h MS Contin 15 mg oral tablet, extended release, 15 mg= 1 Tablet(s), Oral, q12h ondansetron 8 mg oral tablet, disintegrating, 8 mg= 1 Tablet(s), Oral, tid, 1 refills ondansetron oral, 16 mg= 2 Tablet(s), Oral, [id number] ondansetron oral, 16 mg= 2 Tablet(s), Oral, [id number] ondansetron oral, 16 mg= 2 Tablet(s), Oral, [id number] ondansetron oral, 16 mg= 2 Tablet(s), Oral, Chemo Once oxyCODONE 5 mg oral tablet, 5 mg= 1 Tablet(s), Oral, q6h, PRN pegfilgrastim, 6 mg= 0.6 mL, Subcutaneous, Once prochlorperazine, 10 mg= 2 mL, IV Push, [id number], PRN prochlorperazine, 10 mg= 1 Tablet(s), Oral, tid, PRN prochlorperazine, 10 mg= 2 mL, IV Push, [id number], PRN prochlorperazine 10 mg oral tablet, 10 mg= 1 Tablet(s), Oral, tid, 1 refills riTUXimab, 700 mg= 70 mL, 375 mg/m2, IVPB, Chemo Once Time Zero, 1 Each, Message, Chemo Once Time Zero, 1 Each, Message, Chemo Once Time Zero, 1 Each, Message, Chemo Once Time Zero, 1 Each, Message, Chemo Once Time Zero, 1 Each, Message, Once Time Zero, 1 Each, Message, Once vinCRIStine, 2 mg= 2 mL, IVPB, Chemo Once vinCRIStine, 2 mg= 2 mL, IVPB, Chemo Once Allergies NKA Social History Smoking Status Never smoker Alcohol - Denies Alcohol Use Substance Abuse Use:Current Frequency:1-2 times per week Tobacco - Denies Tobacco Use Family History Immunizations Labs CBC (06/28/24) WBC H 13.23 Hgb L 11.6 Hct L 34.9 MCV 92.3 PLT 264 Comprehensive Metabolic Panel (06/28/24) Na+ 139 K+ 4.1 Cl- 104 CO2 24 Anion gap 15 GLU 138 BUN 12 Creat L 0.6 Estimated GFR f 140 Estimated GFR f Not calculated Ca 10.5 Alk Phos 86 AST 28 ALT 29 T Bili 0.43 Total Protein 6.6 Alb 3.9 Hemolysis Index 0 Icteria Index 0 Lipemia Index 0 Diagnostic Results I spent a total time of 30 minutes on this patient encounter which included but was not limited to personally reviewing history, previous encounters within our healthcare system when available, external records when appropriate, performing the rush aspects of the exam, reviewing orders, providing education to the patient/caregiver, and documentation in the medical record. This excludes any procedure time that may have been performed. All occurred on date of service. I discussed the patient's management with the fellow Dr Gordon. I reviewed the note by the fellow and agree with those documented findings and plan of care. The patient was seen on 06/28/2024 . 06/28/2024 Hem Oncology IM Consult Note Subjective Patient seen and examined at bedside today morning. No acute events overnight. Endorses mild fatigue and nausea. Otherwise overall doing good. No other new concerns. Review of Systems 14 point ROS completed and negative unless what is mentioned in the HPI above Objective Vitals and Measurements T: 36.4 C TMIN: 36.4 C TMAX: 36.8 C HR: 113 RR: 16 BP: 111/71 SpO2: 97% Physical Exam General: NAD Head: Normocephalic, Atraumatic Eyes: sclera clear Respiratory: unlabored breathing Cardiovascular: noncyanotic distal perfusing extremities Abdomen: nondistended MSK: no gross deformities Neuro: alert and oriented, CN intact grossly Psych: cooperative Lab Results CBC (06/03/24) WBC H 33.57 Hgb L 8.8 Hct L 27.4 MCV 90.7 PLT 176 Comprehensive Metabolic Panel (06/03/24) Na+ L 133 K+ 3.7 Cl- 101 CO2 25 Anion gap 11 GLU 92 BUN 19 Creat L 0.6 Estimated GFR f 137 Estimated GFR f Not calculated Ca 9.5 Alk Phos H 138 AST 16 ALT H 66 T Bili 0.96 Total Protein 6.0 Alb 3.5 Hemolysis Index 0 Icteria Index 0 Lipemia Index 0 Assessment/Plan Mr. Do is a 24-year-old male patient of Dr. Barrientos with a medical history significant for a presumed intellectual disability and B cell ALL which was diagnosed in 02/2024. He underwent a BM biopsy on 03/15/24 which was consistent with a diagnosis of B ALL with 90 % blasts. Patient received HyperCVAD cycle 1A and 1B inpatient cycle 1B finishing on 04/16/24. He was admitted on 04/26/24 for a febrile illness suspected to be secondary to a dental infection, he was originally due for Cycle 2A on 04/29/24, we initiated on 05/02/24. He was admitted to neurosurgery on 05/23/2024 and had [place] reservoir placement. He was then transferred to heme-onc hospitalist service on 05/24 for planned HyperCVAD cycle 2B. However, labs revealed transaminitis with AST ALT in 600s. Discussed with Dr. Barrientos and decided to hold off on starting the treatment. Workup for transaminitis unremarkable except for US abdomen showing cholelithiasis with no cholecystitis. LFTs improved and patient finally started on HyperCVAD cycle 2B on 05/27/2024. Methotrexate was dose adjusted for elevated LFTs on day1. #B-cell acute lymphoblastic leukemia - IT chemo (cytarabine) via [place] given today. Procedure done by Dr. Barrientos and myself (under the supervision of Dr. Barrientos) today afternoon. Patient tolerated the procedure well. - Neupogen for a total of 5 days. - Continue anti-infective prophylaxis. - Transfuse irradiated blood products for hemoglobin less than 7 g per DL and platelet less than 10K. - Patient has complex social issues. He lives with his sister. No means of transport to come to the hospital for chemotherapy. environmental field office manager can arrange Medicare right which can be only 1 right per week and patient lives 3 [place] away. mosaic worker working with the family to coordinate transport for follow-up. -Anticipate discharge tomorrow. Patient will follow-up with Dr. Barrientos in the clinic after discharge. Chemotherapy regimen Hyper-CVAD Chemotherapy, Part B Methotrexate 200 mg/m2 IV over 2 hours on Day 1 followed by 800 mg/m2; IV continuous infusion over 22 hours on Day 1 Cytarabine (age <60 years) 3,000 mg/mm2; IV over 3 hours every 12 hours for 4 doses on Days 2 and 3 Alkaline hydration is required pre- and post-administration of high-dose methotrexate. Leucovorin 50 mg IV over 15 minutes on Day 2 administered 12 hours after completion of 22-hour methotrexate infusion followed by 15 mg IV over 15 minutes or PO every 6 hours for at least 8 doses (until methotrexate serum concentration is <0.05 micromol/L) Leucovorin dose should be titrated for delayed methotrexate clearance. IT Chemotherapy Methotrexate 12 mg intrathecal on Day 2 of Cycles 1B to 4A in future cycle day 1 Cytarabine 100 mg intrathecal on Day 7 of Cycles 1B to 4A in the future cycle day 4 Supportive medications - Filgrastim (Neupogen) 5 mcg/kg SC once per day, starting 24 hours after completion of intensive courses of chemotherapy (day 5 for part A, day 4 for part B), given until ANC greater than 1000/uL VS outpatient Neulasta. Antibiotic prophylaxis: - Acyclovir 400 mg PO BID - Levaquin 500 mg PO daily - Fluconazole 200 mg PO daily - Amoxicillin 875 mg twice daily Patient staffed with Dr. Horne. Alycia Tena MD PGY-4, Hematology/Oncology [facility] Attestation by Jayden Horne MDvenkatpili Patient was seen and examined on 06/03/2024 with Fellow, which included but was not limited to personally reviewing history, previous encounters within our healthcare system when available, external records when appropriate, performing the rush aspects of the exam, reviewing orders, providing education to the patient/caregiver, and documentation in the medical record. This excludes any procedure time that may have been performed. All occurred on date of service. I discussed the patient's management with the fellow Dr Tena. I reviewed the note by the fellow and agree with those documented findings and plan of care. 06/03/2024 Hem Oncology IM Consult Note Subjective Patient resting comfortably in bed. No acute events overnight. He denies any new concerns today. Request for different flavor of boost drink. Review of Systems 14 point ROS completed and negative unless noted in HPI Objective Vitals and Measurements T: 36.7 C TMIN: 36.7 C TMAX: 36.8 C HR: 118 RR: 12 BP: 116/69 SpO2: 99% Physical Exam General: NAD Head: Normocephalic, Atraumatic Eyes: sclera clear Respiratory: unlabored breathing Cardiovascular: noncyanotic distal perfusing extremities Abdomen: nondistended MSK: no gross deformities Neuro: alert and oriented, CN intact grossly Psych: cooperative Lab Results CBC (06/02/24) WBC H 39.21 Hgb L 10.0 Hct L 30.0 MCV 92.0 PLT 231 Auto Differential % nRBC 0.0 Absolute nRBC 0.0 % Neutrophils 94.0 Absolute Neut H 37.11 % Im Granulocyt H 4.50 Absolute Im Gra H 1.79 % Lymphocytes 1.0 % Monocytes 0.2 % Eosinophils 0.1 % Basophils 0.2 Comprehensive Metabolic Panel (06/02/24) Na+ L 134 K+ 4.1 Cl- 101 CO2 24 Anion gap 13 GLU 90 BUN 17 Creat L 0.6 Estimated GFR f 138 Estimated GFR f Not calculated Ca 9.8 Alk Phos 129 AST 21 ALT H 92 T Bili 0.92 Total Protein 6.5 Alb 3.7 Hemolysis Index 0 Icteria Index 0 Lipemia Index 0 Assessment/Plan Mr. Do is a 24-year-old male patient of Dr. Barrientos with a medical history significant for a presumed intellectual disability and B cell ALL which was diagnosed in 02/2024. He underwent a BM biopsy on 03/15/24 which was consistent with a diagnosis of B ALL with 90 % blasts. Patient received HyperCVAD cycle 1A and 1B inpatient cycle 1B finishing on 04/16/24. He was admitted on 04/26/24 for a febrile illness suspected to be secondary to a dental infection, he was originally due for Cycle 2A on 04/29/24, we initiated on 05/02/24. He was admitted to neurosurgery on 05/23/2024 and had [place] reservoir placement. He was then transferred to heme-onc hospitalist service on 05/24 for planned HyperCVAD cycle 2B. However, labs revealed transaminitis with AST ALT in 600s. Discussed with Dr. Barrientos and decided to hold off on starting the treatment. Workup for transaminitis unremarkable except for US abdomen showing cholelithiasis with no cholecystitis. LFTs improved and patient finally started on HyperCVAD cycle 2B on 05/27/2024. Methotrexate was dose adjusted for elevated LFTs on day1. #B-cell acute lymphoblastic leukemia -Tomorrow is last day of hyper-CVAD cycle 2B. Plan for Rituximab and IT chemo (cytarabine) on 06/03. - Give Neupogen for a total of 5 days. - Continue anti-infective prophylaxis. Resume fluconazole as LFTs trending down. - Patient has complex social issues. He lives with his sister. No means of transport to come to the hospital for chemotherapy. environmental field office manager can arrange Medicare right which can be only 1 right per week and patient lives 3 hours away. From the above - Transfuse irradiated blood products for hemoglobin less than 7 g per DL and platelet less than 10K. Chemotherapy regimen Hyper-CVAD Chemotherapy, Part B Methotrexate 200 mg/m2 IV over 2 hours on Day 1 followed by 800 mg/m2; IV continuous infusion over 22 hours on Day 1 Cytarabine (age <60 years) 3,000 mg/mm2; IV over 3 hours every 12 hours for 4 doses on Days 2 and 3 Alkaline hydration is required pre- and post-administration of high-dose methotrexate. Leucovorin 50 mg IV over 15 minutes on Day 2 administered 12 hours after completion of 22-hour methotrexate infusion followed by 15 mg IV over 15 minutes or PO every 6 hours for at least 8 doses (until methotrexate serum concentration is <0.05 micromol/L) Leucovorin dose should be titrated for delayed methotrexate clearance. IT Chemotherapy Methotrexate 12 mg intrathecal on Day 2 of Cycles 1B to 4A in future cycle day 1 Cytarabine 100 mg intrathecal on Day 7 of Cycles 1B to 4A in the future cycle day 4 Supportive medications - Filgrastim (Neupogen) 5 mcg/kg SC once per day, starting 24 hours after completion of intensive courses of chemotherapy (day 5 for part A, day 4 for part B), given until ANC greater than 1000/uL VS outpatient Neulasta. Antibiotic prophylaxis: - Acyclovir 400 mg PO BID - Levaquin 500 mg PO daily - Fluconazole 200 mg PO daily - Amoxicillin 875 mg twice daily Patient staffed with Dr. Horne. Alycia Tena MD PGY-4, Hematology/Oncology [facility] Attestation by Miguelina Horne MD Patient was seen and examined on 06/02/2024 with Fellow, which included but was not limited to personally reviewing history, previous encounters within our healthcare system when available, external records when appropriate, performing the rush aspects of the exam, reviewing orders, providing education to the patient/caregiver, and documentation in the medical record. This excludes any procedure time that may have been performed. All occurred on date of service. I discussed the patient's management with the fellow Dr Tena. I reviewed the note by the fellow and agree with those documented findings and plan of care. 06/02/2024 Hem Oncology IM Consult Note Subjective No acute events overnight. Patient denies any concerns. Objective Vitals and Measurements T: 36.7 C TMIN: 36.4 C TMAX: 36.7 C HR: 102 RR: 14 BP: 117/72 SpO2: 98% Physical Exam General: NAD Head: Normocephalic, Atraumatic Eyes: sclera clear Respiratory: unlabored breathing Cardiovascular: noncyanotic distal perfusing extremities Abdomen: nondistended MSK: no gross deformities Neuro: alert and oriented, CN intact grossly Psych: cooperative Lab Results Test Name Test Result Date/Time WBC 8.52 x10(9)/L 06/01/2024 02:49 CDT RBC 3.19 x10(12)/L (Low) 06/01/2024 02:49 CDT HGB 9.3 g/dL (Low) 06/01/2024 02:49 CDT HCT 29.3 % (Low) 06/01/2024 02:49 CDT MCV 91.8 fL 06/01/2024 02:49 CDT MCH 29.2 pg 06/01/2024 02:49 CDT MCHC 31.7 g/dL (Low) 06/01/2024 02:49 CDT RDW SD 58.9 fL (High) 06/01/2024 02:49 CDT RDW CV 17.7 % (High) 06/01/2024 02:49 CDT PLT 259 x10(9)/L 06/01/2024 02:49 CDT Sodium 136 mmol/L 06/01/2024 02:49 CDT Potassium 4.0 mmol/L 06/01/2024 02:49 CDT Chloride 101 mmol/L 06/01/2024 02:49 CDT CO2 27 mmol/L 06/01/2024 02:49 CDT Anion gap 12 mmol/L 06/01/2024 02:49 CDT Glucose Lvl 92 mg/dL 06/01/2024 02:49 CDT BUN 15 mg/dL 06/01/2024 02:49 CDT Creatinine, standardized 0.5 mg/dL (Low) 06/01/2024 02:49 CDT Estimated GFR for Adults 142 mL/min/1.73m 06/01/2024 02:49 CDT Estimated GFR for peds Not calculated 06/01/2024 02:49 CDT Calcium 9.6 mg/dL 06/01/2024 02:49 CDT Total Protein 6.5 g/dL 06/01/2024 02:49 CDT Albumin 3.6 g/dL 06/01/2024 02:49 CDT T Bili 0.85 mg/dL 06/01/2024 02:49 CDT Alkaline Phosphatase 120 U/L 06/01/2024 02:49 CDT AST-SGOT 24 U/L 06/01/2024 02:49 CDT ALT-SGPT 117 U/L (High) 06/01/2024 02:49 CDT Diagnostic Results (05/31/2024 19:41 CDT XR Spine Lumbosacral) IMPRESSION: Negative radiographic exam of the lumbosacral spine. [1] Assessment/Plan Mr. Do is a 24-year-old male patient of Dr. Barrientos with a medical history significant for a presumed intellectual disability and B cell ALL which was diagnosed in 02/2024. He underwent a BM biopsy on 03/15/24 which was consistent with a diagnosis of B ALL with 90 % blasts. Patient received HyperCVAD cycle 1A and 1B inpatient cycle 1B finishing on 04/16/24. He was admitted on 04/26/24 for a febrile illness suspected to be secondary to a dental infection, he was originally due for Cycle 2A on 04/29/24, we initiated on 05/02/24. He was admitted to neurosurgery on 05/23/2024 and had [place] reservoir placement. He was then transferred to heme-onc hospitalist service on 05/24 for planned HyperCVAD cycle 2B. However, labs revealed transaminitis with AST ALT in 600s. Discussed with Dr. Barrientos and decided to hold off on starting the treatment. Workup for transaminitis unremarkable except for US abdomen showing cholelithiasis with no cholecystitis. LFTs improved and patient finally started on HyperCVAD cycle 2B on 05/27/2024. Methotrexate was dose adjusted for elevated LFTs on day1. #B-cell acute lymphoblastic leukemia -Today is day 5 of starting hyper-CVAD 2B. -Initially plan was to discharge the patient and he would come back to the [facility] for Neulasta and rituximab on day 7. However patient has only sister as a caregiver and no means of transportation to come to the hospital. [place]. environmental field office manager can arrange Medicare ride but it can be only 1 ride per week. -Planning to give rituximab and IT cytarabine on 06/03. High because nonformulary medications requests form filled and sent to the email ID per pharmacy instruction. Awaiting approval. -Start filgrastim today. Discussed with Dr. Barrientos if patient needs to go on filgrastim at home. -Was administered 6mg intrathecal methotrexate using [place] reservoir 05/28.. -Strictly use irradiated blood products. Chemotherapy regimen Hyper-CVAD Chemotherapy, Part B Methotrexate 200 mg/m2 IV over 2 hours on Day 1 followed by 800 mg/m2; IV continuous infusion over 22 hours on Day 1 Cytarabine (age <60 years) 3,000 mg/mm2; IV over 3 hours every 12 hours for 4 doses on Days 2 and 3 Alkaline hydration is required pre- and post-administration of high-dose methotrexate. Leucovorin 50 mg IV over 15 minutes on Day 2 administered 12 hours after completion of 22-hour methotrexate infusion followed by 15 mg IV over 15 minutes or PO every 6 hours for at least 8 doses (until methotrexate serum concentration is <0.05 micromol/L) Leucovorin dose should be titrated for delayed methotrexate clearance. IT Chemotherapy Methotrexate 12 mg intrathecal on Day 2 of Cycles 1B to 4A in future cycle day 1 Cytarabine 100 mg intrathecal on Day 7 of Cycles 1B to 4A in the future cycle day 4 Supportive medications - Filgrastim (Neupogen) 5 mcg/kg SC once per day, starting 24 hours after completion of intensive courses of chemotherapy (day 5 for part A, day 4 for part B), given until ANC greater than 1000/uL VS outpatient Neulasta. Antibiotic prophylaxis: - Acyclovir 400 mg PO BID - Levaquin 500 mg PO daily - Fluconazole 200 mg PO daily -Holding in the setting of elevated LFTs - Amoxicillin 875 mg twice daily #Transaminitis - improved -Patient has had elevated LFTs in the past but fluctuates within 100s. -US abdomen 05/25/2024 showed cholelithiasis with no cholecystitis. -Hepatitis panel negative, Tylenol level, salicylate level unremarkable. EBV, CMV, toxoplasmosis results pending. -Suspicion is that patient had a gallstone that he passed. -Hold fluconazole in the setting of elevated LFTs.. Patient staffed with Dr. Horne. [1] XR Spine Lumbosacral; Nciko Miranda MD 05/31/2024 19:41 CDT Attestation by Miguelina Horne MD Patient was seen and examined on 06/01/2024 with Fellow/Resident/POOJA, which included but was not limited to personally reviewing history, previous encounters within our healthcare system when available, external records when appropriate, performing the rush aspects of the exam, reviewing orders, providing education to the patient/caregiver, and documentation in the medical record. This excludes any procedure time that may have been performed. All occurred on date of service. I discussed the patient's management with the fellow Dr Sol. I reviewed the note by the fellow and agree with those documented findings and plan of care. 06/01/2024 Hem Oncology IM Consult Note Subjective Patient is in pain today morning. He says it is in his lower back and he has had this pain for a while. He then also had a cramp in his leg during encounter but it quickly self resolved. Objective Vitals and Measurements T: 36.6 C TMIN: 36.6 C TMAX: 37.2 C HR: 87 RR: 16 BP: 127/81 SpO2: 98% Physical Exam General: NAD Head: Normocephalic, Atraumatic Eyes: sclera clear Respiratory: unlabored breathing Cardiovascular: noncyanotic distal perfusing extremities Abdomen: nondistended MSK: no gross deformities Neuro: alert and oriented, CN intact grossly Psych: cooperative Lab Results CBC (05/31/24) WBC H 10.72 Hgb L 8.8 Hct L 27.5 MCV 93.9 PLT 236 Auto Differential % nRBC 0.0 Absolute nRBC 0.0 % Neutrophils 96.2 Absolute Neut H 10.32 % Im Granulocyt H .50 Absolute Im Gra H 0.05 % Lymphocytes 1.3 % Monocytes 1.9 % Eosinophils 0.0 % Basophils 0.1 Comprehensive Metabolic Panel (05/31/24) Na+ 136 K+ 3.6 Cl- 106 CO2 27 Anion gap 7 GLU 102 BUN 11 Creat L 0.5 Estimated GFR f 144 Estimated GFR f Not calculated Ca 9.5 Alk Phos 118 AST 32 ALT H 124 T Bili 0.61 Total Protein 6.0 Alb 3.4 Hemolysis Index 0 Icteria Index 0 Lipemia Index 0 Assessment/Plan Mr. Do is a 24-year-old male patient of Dr. Barrientos with a medical history significant for a presumed intellectual disability and B cell ALL which was diagnosed in 02/2024. He underwent a BM biopsy on 03/15/24 which was consistent with a diagnosis of B ALL with 90 % blasts. Patient received HyperCVAD cycle 1A and 1B inpatient cycle 1B finishing on 04/16/24. He was admitted on 04/26/24 for a febrile illness suspected to be secondary to a dental infection, he was originally due for Cycle 2A on 04/29/24, we initiated on 05/02/24. He was admitted to neurosurgery on 05/23/2024 and had [place] reservoir placement. He was then transferred to heme-onc hospitalist service on 05/24 for planned HyperCVAD cycle 2B. However, labs revealed transaminitis with AST ALT in 600s. Discussed with Dr. Barrientos and decided to hold off on starting the treatment. Workup for transaminitis unremarkable except for US abdomen showing cholelithiasis with no cholecystitis. LFTs improved and patient finally started on HyperCVAD cycle 2B on 05/27/2024. Methotrexate was dose adjusted for elevated LFTs on day1. Plan to give Rituximab, Neulasta and IT cytarabine on day 7. #B-cell acute lymphoblastic leukemia -Proceed with day 4/5 of HyperCVAD cycle 2B (Patient was not started on chemo until 2330 on 05/27). -Administered 6mg intrathecal methotrexate using [place] reservoir 05/28. -MTX level <0.04. Discontinue bicarb drip and leucovorin. -Plan IT cytarabine, Neulasta and Rituxan on day 7. -Strictly use irradiated blood products. Chemotherapy regimen Hyper-CVAD Chemotherapy, Part B Methotrexate 200 mg/m2 IV over 2 hours on Day 1 followed by 800 mg/m2; IV continuous infusion over 22 hours on Day 1 Cytarabine (age <60 years) 3,000 mg/mm2; IV over 3 hours every 12 hours for 4 doses on Days 2 and 3 Alkaline hydration is required pre- and post-administration of high-dose methotrexate. Leucovorin 50 mg IV over 15 minutes on Day 2 administered 12 hours after completion of 22-hour methotrexate infusion followed by 15 mg IV over 15 minutes or PO every 6 hours for at least 8 doses (until methotrexate serum concentration is <0.05 micromol/L) Leucovorin dose should be titrated for delayed methotrexate clearance. IT Chemotherapy Methotrexate 12 mg intrathecal on Day 2 of Cycles 1B to 4A in future cycle day 1 Cytarabine 100 mg intrathecal on Day 7 of Cycles 1B to 4A in the future cycle day 4 Supportive medications - Filgrastim (Neupogen) 5 mcg/kg SC once per day, starting 24 hours after completion of intensive courses of chemotherapy (day 5 for part A, day 4 for part B), given until ANC greater than 1000/uL VS outpatient Neulasta. Antibiotic prophylaxis: - Acyclovir 400 mg PO BID - Levaquin 500 mg PO daily - Fluconazole 200 mg PO daily -Holding in the setting of elevated LFTs - Amoxicillin 875 mg twice daily #Transaminitis - improved -Patient has had elevated LFTs in the past but fluctuates within 100s. -US abdomen 05/25/2024 showed cholelithiasis with no cholecystitis. -Hepatitis panel negative, Tylenol level, salicylate level unremarkable. EBV, CMV, toxoplasmosis results pending. -Suspicion is that patient had a gallstone that he passed. -Hold fluconazole in the setting of elevated LFTs. #Back pain -Obtain lower back X-ray. Patient staffed with Dr. Horne. Attestation by Miguelina Horne MD Patient was seen and examined on 05/31/24 with Fellow, which included but was not limited to personally reviewing history, previous encounters within our healthcare system when available, external records when appropriate, performing the rush aspects of the exam, reviewing orders, providing education to the patient/caregiver, and documentation in the medical record. This excludes any procedure time that may have been performed. All occurred on date of service. I discussed the patient's management with the fellow Dr Sol. I reviewed the note by the fellow and agree with those documented findings and plan of care. 05/31/2024 Hem Oncology IM Consult Note Subjective No acute events overnight. Patient is playing video game and denies any concerns. Objective Vitals and Measurements T: 36.7 C TMIN: 36.7 C TMAX: 36.8 C HR: 118 RR: 18 BP: 168/71 SpO2: 99% Physical Exam General: NAD Head: Normocephalic, Atraumatic Eyes: sclera clear Respiratory: unlabored breathing Cardiovascular: noncyanotic distal perfusing extremities Abdomen: nondistended MSK: no gross deformities Neuro: alert and oriented, CN intact grossly Psych: cooperative Lab Results CBC (05/30/24) WBC H 21.04 Hgb L 9.7 Hct L 30.4 MCV H 96.5 PLT 349 Auto Differential % nRBC 0.0 Absolute nRBC 0.0 % Neutrophils 90.5 Absolute Neut H 19.06 % Im Granulocyt H .80 Absolute Im Gra H 0.16 % Lymphocytes 3.5 % Monocytes 5.0 % Eosinophils 0.1 % Basophils 0.1 Comprehensive Metabolic Panel (05/30/24) Na+ 139 K+ 4.0 Cl- 104 CO2 28 Anion gap 11 GLU 116 BUN 12 Creat L 0.6 Estimated GFR f 141 Estimated GFR f Not calculated Ca 9.1 Alk Phos H 150 AST H 110 ALT H 202 T Bili 0.33 Total Protein 6.2 Alb 3.5 Hemolysis Index 0 Icteria Index 0 Lipemia Index 0 Assessment/Plan Mr. Do is a 24-year-old male patient of Dr. Barrientos with a medical history significant for a presumed intellectual disability and B cell ALL which was diagnosed in 02/2024. He underwent a BM biopsy on 03/15/24 which was consistent with a diagnosis of B ALL with 90 % blasts. Patient received HyperCVAD cycle 1A and 1B inpatient cycle 1B finishing on 04/16/24. He was admitted on 04/26/24 for a febrile illness suspected to be secondary to a dental infection, he was originally due for Cycle 2A on 04/29/24, we initiated on 05/02/24. He was admitted to neurosurgery on 05/23/2024 and had [place] reservoir placement. He was then transferred to heme-onc hospitalist service on 05/24 for planned HyperCVAD cycle 2B. However, labs revealed transaminitis with AST ALT in 600s. Discussed with Dr. Barrientos and decided to hold off on starting the treatment. Workup for transaminitis unremarkable except for US abdomen showing cholelithiasis with no cholecystitis. LFTs improved and patient finally started on HyperCVAD cycle 2B on 05/27/2024. Methotrexate was dose adjusted for elevated LFTs on day1. #Transaminitis - improved -Patient has had elevated LFTs in the past but fluctuates within 100s. -US abdomen 05/25/2024 showed cholelithiasis with no cholecystitis. -Hepatitis panel negative, Tylenol level, salicylate level unremarkable. EBV, CMV, toxoplasmosis results pending. -Suspicion is that patient had a gallstone that he passed. -Hold fluconazole in the setting of elevated LFTs. #B-cell acute lymphoblastic leukemia -Proceed with day 3 of HyperCVAD cycle 2B (Patient was not started on chemo until 2330 on 05/27). -Administered 6mg intrathecal methotrexate using [place] reservoir 05/28. -MTX level 0.13. Continue leucovorin 15mg q6h. -Plan IT cytarabine and Rituxan on day 7. -Strictly use irradiated blood products. Chemotherapy regimen Hyper-CVAD Chemotherapy, Part B Methotrexate 200 mg/m2 IV over 2 hours on Day 1 followed by 800 mg/m2; IV continuous infusion over 22 hours on Day 1 Cytarabine (age <60 years) 3,000 mg/mm2; IV over 3 hours every 12 hours for 4 doses on Days 2 and 3 Alkaline hydration is required pre- and post-administration of high-dose methotrexate. Leucovorin 50 mg IV over 15 minutes on Day 2 administered 12 hours after completion of 22-hour methotrexate infusion followed by 15 mg IV over 15 minutes or PO every 6 hours for at least 8 doses (until methotrexate serum concentration is <0.05 micromol/L) Leucovorin dose should be titrated for delayed methotrexate clearance. IT Chemotherapy Methotrexate 12 mg intrathecal on Day 2 of Cycles 1B to 4A in future cycle day 1 Cytarabine 100 mg intrathecal on Day 7 of Cycles 1B to 4A in the future cycle day 4 Supportive medications - Filgrastim (Neupogen) 5 mcg/kg SC once per day, starting 24 hours after completion of intensive courses of chemotherapy (day 5 for part A, day 4 for part B), given until ANC greater than 1000/uL VS outpatient Neulasta. Antibiotic prophylaxis: - Acyclovir 400 mg PO BID - Levaquin 500 mg PO daily - Fluconazole 200 mg PO daily -Holding in the setting of elevated LFTs - Amoxicillin 875 mg twice daily Patient staffed with Dr. Horne. Attestation by Miugelina Horne MD Patient was seen and examined on 05/30/24 with Fellow/Resident/POOJA, which included but was not limited to personally reviewing history, previous encounters within our healthcare system when available, external records when appropriate, performing the rush aspects of the exam, reviewing orders, providing education to the patient/caregiver, and documentation in the medical record. This excludes any procedure time that may have been performed. All occurred on date of service. I discussed the patient's management with the fellow Dr Sol. I reviewed the note by the fellow and agree with those documented findings and plan of care. He tolerates HyerCVAD well without any concerns. stable to continue current regimen protocol. 05/30/2024 Hem Oncology IM Consult Note Subjective No acute events overnight. Patient Objective Vitals and Measurements T: 36.7 C TMIN: 36.7 C TMAX: 36.8 C HR: 97 RR: 15 BP: 123/65 SpO2: 98% Physical Exam General: NAD Head: Normocephalic, Atraumatic Eyes: sclera clear Respiratory: unlabored breathing Cardiovascular: noncyanotic distal perfusing extremities Abdomen: nondistended MSK: no gross deformities Neuro: alert and oriented, CN intact grossly Psych: cooperative Lab Results CBC (05/29/24) WBC H 20.63 Hgb L 9.2 Hct L 29.2 MCV 95.1 PLT 335 Auto Differential % nRBC 0.0 Absolute nRBC 0.0 % Neutrophils 81.4 Absolute Neut H 16.79 % Im Granulocyt H 3.50 Absolute Im Gra H 0.72 % Lymphocytes 5.0 % Monocytes 9.7 % Eosinophils 0.3 % Basophils 0.1 Comprehensive Metabolic Panel (05/29/24) Na+ 140 K+ 3.6 Cl- 105 CO2 26 Anion gap 13 GLU H 146 BUN 8 Creat L 0.5 Estimated GFR f 147 Estimated GFR f Not calculated Ca 9.6 Alk Phos H 148 AST H 63 ALT H 193 T Bili 0.40 Total Protein 6.3 Alb 3.7 Hemolysis Index 0 Icteria Index 0 Lipemia Index 0 Assessment/Plan Mr. Do is a 24-year-old male patient of Dr. Barrientos with a medical history significant for a presumed intellectual disability and B cell ALL which was diagnosed in 02/2024. He underwent a BM biopsy on 03/15/24 which was consistent with a diagnosis of B ALL with 90 % blasts. Patient received HyperCVAD cycle 1A and 1B inpatient cycle 1B finishing on 04/16/24. He was admitted on 04/26/24 for a febrile illness suspected to be secondary to a dental infection, he was originally due for Cycle 2A on 04/29/24, we initiated on 05/02/24. He was admitted to neurosurgery on 05/23/2024 and had [place] reservoir placement. He was then transferred to heme-onc hospitalist service on 05/24 for planned HyperCVAD cycle 2B. However, labs revealed transaminitis with AST ALT in 600s. Discussed with Dr. Barrientos and decided to hold off on starting the treatment. Workup for transaminitis unremarkable except for US abdomen showing cholelithiasis with no cholecystitis. LFTs improved and patient finally started on HyperCVAD cycle 2B on 05/27/2024. Methotrexate was dose adjusted for elevated LFTs on day1. #Transaminitis - improved -Patient has had elevated LFTs in the past but fluctuates within 100s. -US abdomen 05/25/2024 showed cholelithiasis with no cholecystitis. -Hepatitis panel negative, Tylenol level, salicylate level unremarkable. EBV, CMV, toxoplasmosis results pending. -Suspicion is that patient had a gallstone that he passed. -Hold fluconazole in the setting of elevated LFTs. #B-cell acute lymphoblastic leukemia -Proceed with day 2 of HyperCVAD cycle 2B (Patient was not started on chemo until 2330 on 05/27). -Administered 6mg intrathecal methotrexate using [place] reservoir 05/28. -MTX level at 24 hours is 8.7. Continue leucovorin 15mg q6h. -Plan IT cytarabine and Rituxan on day 7. Chemotherapy regimen Hyper-CVAD Chemotherapy, Part B Methotrexate 200 mg/m2 IV over 2 hours on Day 1 followed by 800 mg/m2; IV continuous infusion over 22 hours on Day 1 Cytarabine (age <60 years) 3,000 mg/mm2; IV over 3 hours every 12 hours for 4 doses on Days 2 and 3 Alkaline hydration is required pre- and post-administration of high-dose methotrexate. Leucovorin 50 mg IV over 15 minutes on Day 2 administered 12 hours after completion of 22-hour methotrexate infusion followed by 15 mg IV over 15 minutes or PO every 6 hours for at least 8 doses (until methotrexate serum concentration is <0.05 micromol/L) Leucovorin dose should be titrated for delayed methotrexate clearance. IT Chemotherapy Methotrexate 12 mg intrathecal on Day 2 of Cycles 1B to 4A in future cycle day 1 Cytarabine 100 mg intrathecal on Day 7 of Cycles 1B to 4A in the future cycle day 4 Supportive medications - Filgrastim (Neupogen) 5 mcg/kg SC once per day, starting 24 hours after completion of intensive courses of chemotherapy (day 5 for part A, day 4 for part B), given until ANC greater than 1000/uL VS outpatient Neulasta. #B-cell acute lymphoblastic leukemia -Tentative plan to start hyper-CVAD cycle 2B tomorrow if LFT improves. -Provide supportive transfusions to keep hemoglobin above 7 g/dL and platelet count above 10 K -Strictly use irradiated blood products. -Avoid using Tylenol and NSAIDs for pain control. Antibiotic prophylaxis: - Acyclovir 400 mg PO BID - Levaquin 500 mg PO daily - Fluconazole 200 mg PO daily -Holding in the setting of elevated LFTs - Amoxicillin 875 mg twice daily Patient staffed with Dr. York. I spent a total time of 30 minutes on this patient encounter which included but was not limited to personally reviewing history, previous encounters within our healthcare system when available, external records when appropriate, performing the rush aspects of the exam, reviewing orders, providing education to the patient/caregiver, and documentation in the medical record. This excludes any procedure time that may have been performed. All occurred on date of service. I discussed the patient's management with the fellow Dr Sol. I reviewed the note by the fellow and agree with those documented findings and plan of care. The patient was seen on 05/29/2024 . 05/29/2024 Hem Oncology IM Consult Note Subjective No acute events overnight. Patient denies any other concerns. Objective Vitals and Measurements T: 36.4 C TMIN: 36.4 C TMAX: 37 C HR: 108 RR: 16 BP: 160/73 SpO2: 99% Physical Exam General: NAD Head: Normocephalic, Atraumatic Eyes: sclera clear Respiratory: unlabored breathing Cardiovascular: noncyanotic distal perfusing extremities Abdomen: nondistended MSK: no gross deformities Neuro: alert and oriented, CN intact grossly Psych: cooperative Lab Results CBC (05/28/24) WBC H 13.09 Hgb L 8.0 Hct L 25.5 MCV 94.8 PLT 289 Comprehensive Metabolic Panel (05/28/24) Na+ 136 K+ L 3.4 Cl- L 94 CO2 H 37 Anion gap 8 GLU C 529 BUN 9 Creat L 0.5 Estimated GFR f 149 Estimated GFR f Not calculated Ca L 8.0 Alk Phos H 151 AST H 148 ALT H 218 T Bili L 0.25 Total Protein L 5.4 Alb L 3.0 Hemolysis Index 0 Icteria Index 0 Lipemia Index 0 Assessment/Plan Mr. Do is a 24-year-old male patient of Dr. Barrientos with a medical history significant for a presumed intellectual disability and B cell ALL which was diagnosed in 02/2024. He underwent a BM biopsy on 03/15/24 which was consistent with a diagnosis of B ALL with 90 % blasts. Patient received HyperCVAD cycle 1A and 1B inpatient cycle 1B finishing on 04/16/24. He was admitted on 04/26/24 for a febrile illness suspected to be secondary to a dental infection, he was originally due for Cycle 2A on 04/29/24, we initiated on 8/15/24. He was admitted to neurosurgery on 05/23/2024 and had [place] reservoir placement. He was then transferred to heme-onc hospitalist service on 05/24 for planned HyperCVAD cycle 2B. However, labs revealed transaminitis with AST ALT in 600s. Discussed with Dr. Barrientos and decided to hold off on starting the treatment. Workup for transaminitis unremarkable except for US abdomen showing cholelithiasis with no cholecystitis. LFTs improved and patient finally started on HyperCVAD cycle 2B on 05/27/2024. Methotrexate was dose adjusted for elevated LFTs on day1. #Transaminitis -Patient has had elevated LFTs in the past but fluctuates within 100s. -US abdomen 05/25/2024 showed cholelithiasis with no cholecystitis. -Hepatitis panel negative, Tylenol level, salicylate level unremarkable. EBV, CMV, toxoplasmosis results pending. -Suspicion is that patient had a gallstone that he passed. -Hold fluconazole in the setting of elevated LFTs. -Proceed with day 2 of HyperCVAD cycle 2B. -Administered 6mg intrathecal methotrexate using [place] reservoir today. Chemotherapy regimen Hyper-CVAD Chemotherapy, Part B Methotrexate 200 mg/m2 IV over 2 hours on Day 1 followed by 800 mg/m2; IV continuous infusion over 22 hours on Day 1 Cytarabine (age <60 years) 3,000 mg/mm2; IV over 3 hours every 12 hours for 4 doses on Days 2 and 3 Alkaline hydration is required pre- and post-administration of high-dose methotrexate. Leucovorin 50 mg IV over 15 minutes on Day 2 administered 12 hours after completion of 22-hour methotrexate infusion followed by 15 mg IV over 15 minutes or PO every 6 hours for at least 8 doses (until methotrexate serum concentration is <0.05 micromol/L) Leucovorin dose should be titrated for delayed methotrexate clearance. IT Chemotherapy Methotrexate 12 mg intrathecal on Day 2 of Cycles 1B to 4A in future cycle day 1 Cytarabine 100 mg intrathecal on Day 7 of Cycles 1B to 4A in the future cycle day 4 Supportive medications - Filgrastim (Neupogen) 5 mcg/kg SC once per day, starting 24 hours after completion of intensive courses of chemotherapy (day 5 for part A, day 4 for part B), given until ANC greater than 1000/uL VS outpatient Neulasta. #B-cell acute lymphoblastic leukemia -Tentative plan to start hyper-CVAD cycle 2B tomorrow if LFT improves. -Provide supportive transfusions to keep hemoglobin above 7 g/dL and platelet count above 10 K -Strictly use irradiated blood products. -Avoid using Tylenol and NSAIDs for pain control. Antibiotic prophylaxis: - Acyclovir 400 mg PO BID - Levaquin 500 mg PO daily - Fluconazole 200 mg PO daily -Holding in the setting of elevated LFTs - Amoxicillin 875 mg twice daily Patient staffed with Dr. York. I spent a total time of 30 minutes on this patient encounter which included but was not limited to personally reviewing history, previous encounters within our healthcare system when available, external records when appropriate, performing the rush aspects of the exam, reviewing orders, providing education to the patient/caregiver, and documentation in the medical record. This excludes any procedure time that may have been performed. All occurred on date of service. I discussed the patient's management with the fellow Dr Sol. I reviewed the note by the fellow and agree with those documented findings and plan of care. The patient was seen on 05/28/2024 . Labs were obtained today (CBC, CMP), results were reviewed and are acceptable for proceeding with chemotherapy. 05/28/2024 Hem Oncology IM Consult Note Subjective No acute events overnight. Patient denies any concerns. RN reports that patient has been using [id number] pain medications. Objective Vitals and Measurements T: 36.7 C TMIN: 36.7 C TMAX: 37.1 C HR: 102 RR: 20 BP: 117/73 SpO2: 97% WT: 71.5 kg Physical Exam General: NAD Head: Normocephalic, Atraumatic Eyes: EOM intact, sclera clear Respiratory: breathing comfortably on room air Cardiovascular: noncyanotic distal perfusing edema Abdomen: nondistended MSK: no gross deformities, normal ROM in all 4 extremities Neuro: alert and oriented, CN intact grossly Psych: normal affect and mood, cooperative Lab Results CBC (05/27/24) WBC H 13.34 Hgb L 9.2 Hct L 29.5 MCV H 97.4 PLT 335 Comprehensive Metabolic Panel (05/27/24) Na+ 141 K+ 3.8 Cl- 103 CO2 31 Anion gap 11 GLU 82 BUN 6 Creat L 0.5 Estimated GFR f 142 Estimated GFR f Not calculated Ca 9.3 Alk Phos H 161 AST H 35 ALT H 200 T Bili 0.30 Total Protein 6.4 Alb 3.6 Hemolysis Index 0 Icteria Index 0 Lipemia Index 0 Assessment/Plan Mr. Do is a 24-year-old male patient of Dr. Barrientos with a medical history significant for a presumed intellectual disability and B cell ALL which was diagnosed in 02/2024. He underwent a BM biopsy on 03/15/24 which was consistent with a diagnosis of B ALL with 90 % blasts. Patient received HyperCVAD cycle 1A and 1B inpatient cycle 1B finishing on 04/16/24. He was admitted on 04/26/24 for a febrile illness suspected to be secondary to a dental infection, he was originally due for Cycle 2A on 04/29/24, we initiated on 05/02/24. He was admitted to neurosurgery on 05/23/2024 and had [place] reservoir placement. He was then transferred to heme-onc hospitalist service on 05/24 for planned HyperCVAD cycle 2B. However, labs revealed transaminitis with AST ALT in 600s. Discussed with Dr. Barrientos and decided to hold off on starting the treatment. Workup for transaminitis unremarkable except for US abdomen showing cholelithiasis with no cholecystitis. LFTs improved and patient finally started on HyperCVAD cycle 2B on 05/27/2024. #Transaminitis -Patient has had elevated LFTs in the past but fluctuates within 100s. -US abdomen 05/25/2024 showed cholelithiasis with no cholecystitis. -Hepatitis panel negative, Tylenol level, salicylate level unremarkable. EBV, CMV, toxoplasmosis results pending. -LFTs seem to be improved today. Suspicion is that patient had a gallstone that he passed. -Hold fluconazole in the setting of elevated LFTs. -Discussed with Dr. Barrientos. Start with HyperCVAD cycle 2B today. Chemotherapy regimen Hyper-CVAD Chemotherapy, Part B Methotrexate 200 mg/m2 IV over 2 hours on Day 1 followed by 800 mg/m2; IV continuous infusion over 22 hours on Day 1 Cytarabine (age <60 years) 3,000 mg/mm2; IV over 3 hours every 12 hours for 4 doses on Days 2 and 3 Alkaline hydration is required pre- and post-administration of high-dose methotrexate. Leucovorin 50 mg IV over 15 minutes on Day 2 administered 12 hours after completion of 22-hour methotrexate infusion followed by 15 mg IV over 15 minutes or PO every 6 hours for at least 8 doses (until methotrexate serum concentration is <0.05 micromol/L) Leucovorin dose should be titrated for delayed methotrexate clearance. IT Chemotherapy Methotrexate 12 mg intrathecal on Day 2 of Cycles 1B to 4A in future cycle day 1 Cytarabine 100 mg intrathecal on Day 7 of Cycles 1B to 4A in the future cycle day 4 Supportive medications - Filgrastim (Neupogen) 5 mcg/kg SC once per day, starting 24 hours after completion of intensive courses of chemotherapy (day 5 for part A, day 4 for part B), given until ANC greater than 1000/uL VS outpatient Neulasta. #B-cell acute lymphoblastic leukemia -Tentative plan to start hyper-CVAD cycle 2B tomorrow if LFT improves. -Provide supportive transfusions to keep hemoglobin above 7 g/dL and platelet count above 10 K -Strictly use irradiated blood products. -Avoid using Tylenol and NSAIDs for pain control. Antibiotic prophylaxis: - Acyclovir 400 mg PO BID - Levaquin 500 mg PO daily ​ - Fluconazole 200 mg PO daily -Holding in the setting of elevated LFTs - Amoxicillin 875 mg twice daily Patient staffed with Dr. Lin. I personally saw and evaluated the patient on 05/27/24. I independently performed the critical/rush portions of the Evaluation and Management service and discussed the management with the author of this document. I agree with everything documented above except as may be indicated otherwise in my comments. Dr. Barrientos has been in charge of the patient's chemotherapy plan and overall management of this case and receives regular updates about his patients including Mr. Do's today and immediately as indicated. Jaden Lin MD/FACP Shannan Jimenez Echo Technologist of Clinical [employer] Distance Education Faculty Liaison for CONTINUOUS IMPROVEMENT LEAD and Chair of Breast DW[employer] 05/27/2024 Hem Oncology IM Consult Note Subjective Patient seen and examined at bedside. Denies any abdominal pain, nausea, vomiting. Review of Systems Objective Vitals and Measurements T: 36.9 C TMIN: 36.7 C TMAX: 37.1 C HR: 99 RR: 14 BP: 123/80 SpO2: 99% Physical Exam General: Alert, no acute distress, Ommaya shunt scar appears stable Cardiovascular: Regular rate and rhythm, normal peripheral perfusion, no edema Respiratory: respirations are non-labored Chest wall: Symmetric chest rise. No deformity. Back: Normal alignment Musculoskeletal: Full range of motion, normal strength throughout. Gastrointestinal: Nondistended Neurological: Alert and oriented to person, place, time, and situation. No focal deficits. Normal speech. Psychiatric: Cooperative. Lab Results CBC (05/26/24) WBC H 11.24 Hgb L 8.8 Hct L 28.6 MCV H 96.9 PLT 308 Comprehensive Metabolic Panel (05/26/24) Na+ 143 K+ 3.8 Cl- 106 CO2 29 Anion gap 12 GLU 97 BUN 6 Creat L 0.5 Estimated GFR f 145 Estimated GFR f Not calculated Ca 9.1 Alk Phos H 179 AST H 58 ALT H 276 T Bili 0.32 Total Protein 5.9 Alb L 3.3 Hemolysis Index 0 Icteria Index 0 Lipemia Index 0 Diagnostic Results Assessment/Plan Mr. Do is a 24-year-old male patient of Dr. Barrientos with a medical history significant for a presumed intellectual disability and B cell ALL which was diagnosed in 02/2024. He underwent a BM biopsy on 03/15/24 which was consistent with a diagnosis of B ALL with 90 % blasts. Patient received HyperCVAD cycle 1A and 1B inpatient cycle 1B finishing on 04/16/24. He was admitted on 04/26/24 for a febrile illness suspected to be secondary to a dental infection, he was originally due for Cycle 2A on 04/29/24, we initiated on 05/02/24. He was admitted to neurosurgery on 05/23/2024 and had [place] reservoir placement. He was then transferred to heme-onc hospitalist service on 05/24 for planned HyperCVAD cycle 2B. However, labs revealed transaminitis with AST ALT in 600s. Discussed with Dr. Barrientos and decided to hold off on starting the treatment. Workup for transaminitis unremarkable except for US abdomen showing cholelithiasis with no cholecystitis. #Transaminitis -Patient has had elevated LFTs in the past but fluctuates within 100s. -US abdomen 05/25/2024 showed cholelithiasis with no cholecystitis. -Hepatitis panel negative, Tylenol level, salicylate level unremarkable. EBV, CMV, toxoplasmosis results pending. -LFTs seem to be improved today. Suspicion is that patient had a bowel stone that he passed. Will hold off on starting chemotherapy today as per discussion with Dr. Barrientos. If LFTs continue to downtrend tomorrow, plan to start chemo. #B-cell acute lymphoblastic leukemia -Tentative plan to start hyper-CVAD cycle 2B tomorrow if LFT improves. -Provide supportive transfusions to keep hemoglobin above 7 g/dL and platelet count above 10 K -Strictly use irradiated blood products. -Avoid using Tylenol and NSAIDs for pain control. Antibiotic prophylaxis: - Acyclovir 400 mg PO BID ​ - Levaquin 500 mg PO daily - Fluconazole 200 mg PO daily - Amoxicillin 875 mg twice daily Patient staffed with Dr. Lin. I personally saw and evaluated the patient on 05/26/24. I independently performed the critical/rush portions of the Evaluation and Management service and discussed the management with the author of this document. I agree with everything documented above except as may be indicated otherwise in my comments. Jaedn Lin MD/FACP Shannan Jimenez [employer] Technologist of [employer] Distance Education Faculty Liaison for CONTINUOUS IMPROVEMENT LEAD and Chair of Breast DW[employer] 05/26/2024 Hem Oncology IM Consult Note Subjective No acute events overnight. Patient reports doing well and has no new concerns. Denies any pain at this time. Objective Vitals and Measurements T: 36.9 C TMIN: 36.7 C TMAX: 37.1 C HR: 94 RR: 18 BP: 109/65 SpO2: 99% Physical Exam General: NAD Head: Normocephalic, Atraumatic Eyes: EOM intact, sclera clear Respiratory: breathing comfortably on room air Cardiovascular: noncyanotic distal perfusing edema Abdomen: nondistended MSK: no gross deformities, normal ROM in all 4 extremities Neuro: alert and oriented, CN intact grossly Psych: normal affect and mood, cooperative Lab Results CBC (05/25/24) WBC H 12.49 Hgb L 9.2 Hct L 30.2 MCV H 98.1 PLT 362 Auto Differential % nRBC 0.2 Absolute nRBC 0.0 % Neutrophils 56.3 Absolute Neut H 7.03 % Im Granulocyt H 7.00 Absolute Im Gra H 0.88 % Lymphocytes 13.6 % Monocytes 22.4 % Eosinophils 0.1 % Basophils 0.6 Comprehensive Metabolic Panel (05/25/24) Na+ 141 K+ L 3.4 Cl- 107 CO2 23 Anion gap 14 GLU 102 BUN 7 Creat L 0.5 Estimated GFR f 146 Estimated GFR f Not calculated Ca 9.4 Alk Phos H 208 AST H 182 ALT H 473 T Bili L 0.28 Total Protein 6.5 Alb 3.8 Hemolysis Index 0 Icteria Index 0 Lipemia Index 0 Diagnostic Results (05/25/2024 09:40 CDT US Abdomen (Non Vascular)) IMPRESSION: 1. Cholelithiasis without sonographic findings to suggest acute cholecystitis. 2. Mild hepatomegaly with diffuse mild hepatic steatosis. [1] Assessment/Plan Mr. Do is a 24-year-old male patient of Dr. Barrientos with a medical history significant for a presumed intellectual disability and B cell ALL which was diagnosed in 02/2024. He underwent a BM biopsy on 03/15/24 which was consistent with a diagnosis of B ALL with 90 % blasts. Patient received HyperCVAD cycle 1A and 1B inpatient cycle 1B finishing on 04/16/24. He was admitted on 04/26/24 for a febrile illness suspected to be secondary to a dental infection, he was originally due for Cycle 2A on 04/29/24, we initiated on 05/02/24. He was admitted to neurosurgery on 05/23/2024 and had [place] reservoir placement. He was then transferred to heme-onc hospitalist service on 05/24 for planned HyperCVAD cycle 2B. However, labs revealed transaminitis with AST ALT in 600s. Discussed with Dr. Barrientos and decided to hold off on starting the treatment. Workup for transaminitis unremarkable except for US abdomen showing cholelithiasis with no cholecystitis. #Transaminitis -Patient has had elevated LFTs in the past but fluctuates within 100s. -US abdomen 05/25/2024 showed cholelithiasis with no cholecystitis. -Hepatitis panel negative, Tylenol level, salicylate level unremarkable. EBV, CMV, toxoplasmosis results pending. -LFTs seem to be improved today. Suspicion is that patient had a bowel stone that he passed. Will hold off on starting chemotherapy today as per discussion with Dr. Barrientos. If LFTs continue to downtrend tomorrow, plan to start chemo. #B-cell acute lymphoblastic leukemia -Tentative plan to start hyper-CVAD cycle 2B tomorrow if LFT improves. -Provide supportive transfusions to keep hemoglobin above 7 g/dL and platelet count above 10 K -Strictly use irradiated blood products. -Avoid using Tylenol and NSAIDs for pain control. Antibiotic prophylaxis: - Acyclovir 400 mg PO BID ​ - Levaquin 500 mg PO daily - Fluconazole 200 mg PO daily - Amoxicillin 875 mg twice daily Patient staffed with Dr. Lin. [1] US Abdomen (Non Vascular); José Luis BRISCOE, Moises Serrano 05/25/2024 09:40 CDT I personally saw and evaluated the patient on 05/25/24. I independently performed the critical/rush portions of the Evaluation and Management service and discussed the management with the author of this document. I agree with everything documented above except as may be indicated otherwise in my comments. Dr. Barrientos has been in charge of the patient's chemotherapy plan and overall management of this case and receives regular updates about his patients including Mr. Do's today and immediately as indicated. Jaden Lin MD/BRIELLE Jimenez Echo Technologist of Clinical Medicine Distance Education Faculty Liaison for CONTINUOUS IMPROVEMENT LEAD and Chair of Breast DW[employer] 05/25/2024 Hem Oncology IM Consult Note Chief Compl aint Planned admission for HyperCVAD to be History of Present Illness Mr. Do is a 24-year-old male patient of Dr. Barrientos with a medical history significant for a presumed intellectual disability and B cell ALL which was diagnosed in 02/2024. He underwent a BM biopsy on 03/15/24 which was consistent with a diagnosis of B ALL with 90 % blasts. Patient received HyperCVAD cycle 1A and 1B inpatient cycle 1B finishing on 04/16/24. He was admitted on 04/26/24 for a febrile illness suspected to be secondary to a dental infection, he was originally due for Cycle 2A on 04/29/24, we initiated on 05/02/24. He is being transferred from neurosurgery service after getting [place] reservoir placement 05/23. He is transferred for hyper-CVAD cycle 2B. He endorses pain at the site of procedure. Denies any nausea, vomiting or abdominal pain. He states that he has been getting Tylenol on and off for pain. Review of Systems Complete 14-point ROS was done and is negative except for what mentioned above. Physical Exam Vital Signs and Measurements HR: 104 RR: 16 BP: 125/83 SpO2: 98% HT: 182.8 cm WT: 67.5 kg (Dosing) BMI: 20.2 General: NAD Head: Normocephalic, Atraumatic Eyes: EOM intact, sclera clear Respiratory: breathing comfortably on room air Cardiovascular: noncyanotic distal perfusing edema Abdomen: nondistended MSK: no gross deformities, normal ROM in all 4 extremities Neuro: alert and oriented, CN intact grossly Psych: normal affect and mood, cooperative Assessment/Plan Mr. Do is a 24-year-old male patient of Dr. Barrientos with a medical history significant for a presumed intellectual disability and B cell ALL which was diagnosed in 02/2024. He underwent a BM biopsy on 03/15/24 which was consistent with a diagnosis of B ALL with 90 % blasts. Patient received HyperCVAD cycle 1A and 1B inpatient cycle 1B finishing on 04/16/24. He was admitted on 04/26/24 for a febrile illness suspected to be secondary to a dental infection, he was originally due for Cycle 2A on 04/29/24, we initiated on 05/02/24. He was admitted to neurosurgery on 05/23/2024 and had [place] reservoir placement. He was then transferred to heme-onc hospitalist service for planned HyperCVAD cycle 2B. However, labs today reveal transaminitis with AST ALT in 600s. #Transaminitis -Patient has had elevated LFTs in the past but fluctuates within 100s. -US abdomen 04/14/2024 showed cholelithiasis with no cholecystitis. -Recommend obtaining acute hepatitis panel, EBV, CMV, toxoplasmosis, Tylenol level, salicylate level and RUQ Doppler ultrasound. -Will hold off on chemo due to elevated liver enzymes. #B-cell acute lymphoblastic leukemia -Tentative plan to start hyper-CVAD cycle 2B tomorrow if LFT improves. -Provide supportive transfusions to keep hemoglobin above 7 g/dL and platelet count above 10 K -Strictly use irradiated blood products. -Avoid using Tylenol and NSAIDs for pain control. Antibiotic prophylaxis: - Acyclovir 400 mg PO BID - Levaquin 500 mg PO daily - Fluconazole 200 mg PO daily - Amoxicillin 875 mg twice daily Patient staffed with Dr. Lin. Problem List/Past Medical History Ongoing B-cell acute lymphoblastic leukemia Intellectual disability Historical No qualifying data Procedure/Surgical History ear tubes tonsillectomy Medications acetaminophen, 650 mg= 2 Tablet(s), Oral, q6h, PRN acetaminophen, 1000 mg= 2 Tablet(s), Oral, Once acetaminophen 500 mg oral tablet, 1000 mg= 2 Tablet(s), Oral, q6h, PRN acetaminophen tablet, 1000 mg= 2 Tablet(s), Oral, Once Acidophilus Probiotic Blend oral capsule, 1 capsule(s), Oral, Daily acyclovir 400 mg oral tablet, 400 mg, Oral, bid amoxicillin-clavulanate (Augmentin) 875 mg-125 mg oral tablet, 1 Tablet(s), Oral, bid, 2 refills Bactrim DS 800 mg-160 mg oral tablet, 160 mg= 1 Tablet(s), Oral, qM W F, 1 refills diphenhydrAMINE, 50 mg= 1 mL, Slow IV Push, Chemo Once diphenhydrAMINE, 50 mg= 1 mL, Slow IV Push, Once fluconazole 200 mg oral tablet, 400 mg, Oral, Daily, 3 refills gabapentin 100 mg oral capsule, 100 mg= 1 capsule(s), Oral, bid ibuprofen 200 mg oral tablet, 400 mg= 2 Tablet(s), Oral, q6h, PRN levoFLOXacin 500 mg oral tablet, 500 mg, Oral, Daily loperamide 2 mg oral tablet, See Instructions, 1 refills Morphine Sulfate IR 10 mg/5 ml oral solution, 5 mg= 2.5 mL, Oral, q4h, PRN MS Contin 15 mg oral tablet, extended release, 15 mg= 1 Tablet(s), Oral, q12h ondansetron 8 mg oral tablet, disintegrating, 8 mg= 1 Tablet(s), Oral, tid, 1 refills ondansetron oral, 16 mg= 2 Tablet(s), Oral, Chemo Once oxyCODONE immediate release, 10 mg= 2 Tablet(s), Oral, q4h, PRN pegfilgrastim, 6 mg= 0.6 mL, Subcutaneous, Once prochlorperazine, 10 mg= 2 mL, IV Push, [id number], PRN prochlorperazine, 10 mg= 2 mL, IV Push, [id number], PRN prochlorperazine, 10 mg= 2 mL, IV Push, [id number], PRN prochlorperazine 10 mg oral tablet, 10 mg= 1 Tablet(s), Oral, tid, 1 refills riTUXimab riTUXimab + sodium chloride 0.9% 250 mL Time Zero, 1 Each, Message, Chemo Once Allergies NKA Social History Smoking Status Never smoker Labs Oncology Flowsheet acetaminophen: 650 mg (05/24/24) dexamethasone: 4 mg (05/23/24) ondansetron: 4 mg (05/23/24) WBC: 9.27 x10(9)/L (05/24/24) HGB: 8.7 g/dL Low (05/24/24) HCT: 27.1 % Low (05/24/24) PLT: 312 x10(9)/L (05/24/24) Absolute Neutrophils Manual: 6.92 x10(9)/L (05/24/24) Potassium: 4 mmol/L (05/24/24) BUN: 10 mg/dL (05/24/24) Creatinine, standardized: 0.5 mg/dL Low (05/24/24) Calcium: 9.1 mg/dL (05/24/24) T Bili: 0.51 mg/dL (05/24/24) PT: 11.4 second(s) (05/23/24) INR: 1 (05/23/24) Height (cm): 182.8 cm (05/23/24) Weight (kg): 67.5 kg (05/23/24) Diagnostic Results (05/24/2024 03:[address] Head or Brain) IMPRESSION: No acute intracranial findings. Interval placement of right frontal approach catheter with tip terminating within the third ventricle. [1] [1] CT Head or Brain; Susan Miller MD 05/24/2024 03:21 CDT I personally saw and evaluated the patient on 05/25/24. I independently performed the critical/rush portions of the Evaluation and Management service and discussed the management with the author of this document. I agree with everything documented above except as may be indicated otherwise in my comments. Dr. Barrientos has been in charge of the patient's chemotherapy plan and overall management of this case and receives regular updates about his patients including Mr. Do's immediately as indicated. Jaden Lin MD/FACP Shannan Jimenez Echo Technologist of Clinical Medicine Distance Education Faculty Liaison for CONTINUOUS IMPROVEMENT LEAD and Chair of Breast DWG 05/24/2024 Neurology Consult Note NSICU CONSULT NOT E Requesting Clinician: Attending Physician: Marcio Mansfield MD Referring Physician: Heike Barrientos MD Original Referring Provider: Heike Barrientos MD Reason for consultation: q1h Neurochecks post operatively Source of Information: Information obtained from the chart, patient, family, and primary care team. Chief Concern: Post-operative monitoring HISTORY OF PRESENT ILLNESS: 24-year-old male with a past medical history of intellectual disability and recently diagnosed B-cell ALL who is admitted to the neurosurgical ICU for close monitoring after ventricular access for intrathecal chemotherapy with neurosurgery. Patient admitted to NSICU on 05/23 with hematology/oncology primary. Patient has a tissue confirmed diagnosis of B-cell ALL after bone marrow biopsy 03/15. Workup was initiated as he had continued lethargy, aches and fatigue. Patient had a [place] placed and was admitted to NSICU post-operatively for q1h neuro checks and further post-operative observation/management. On arrival to NSICU patient Review of Systems: Review of systems completed. Pertinent positives and negatives in HPI. OTHER HISTORIES: Past Medical History: B-Cell ALL (tissue confirmed) Social History: No alcohol use, no smoking. Daily marijuana smoker for nausea Family History: None Home Medications/Allergies: Prescription Medications gabapentin (gabapentin 100 mg): 100 mg 1 capsule(s) Oral bid fluconazole (fluconazole 200 mg): 400 mg Oral Daily acyclovir (acyclovir 400 mg): 400 mg Oral bid levoFLOXacin (levoFLOXacin 500 mg): 500 mg Oral Daily sulfamethoxazole-trimethoprim (Bactrim DS 800 mg-160 mg): 160 mg 1 Tablet(s) Oral qM W F morphine (Morphine Sulfate IR 10 mg/5 ml oral solution): 5 mg/2.5 mL Oral q4h PRN (for pain) morphine (MS Contin 15 mg , extended release): 15 mg 1 Tablet(s) Oral q12h loperamide (loperamide 2 mg): See Instructions 2 tabs at onset of diarrhea, then 1 Tablet after each loose stool up to 8 tabs dailynot to exceed 8 tabs, or 16 mg, in 24 hours ondansetron (ondansetron 8 mg , disintegrating): 8 mg 1 Tablet(s) Oral tid as needed for nausea. allow tablet to dissolve on tongue. prochlorperazine (prochlorperazine 10 mg): 10 mg 1 Tablet(s) Oral tid as needed for nausea if ondansetron ineffective amoxicillin-clavulanate (amoxicillin-clavulanate (Augmentin) 875 mg-125 mg): 1 Tablet(s) Oral bid Until seen by dentist Historical Medications lactobacillus acidophilus (Acidophilus Probiotic Blend): 1 capsule(s) Oral Daily ibuprofen (ibuprofen 200 mg): 400 mg 2 Tablet(s) Oral q6h PRN (as needed for pain) acetaminophen (acetaminophen 500 mg): 1,000 mg 2 Tablet(s) Oral q6h PRN (as needed for pain) Allergies/Adverse Drug Reactions: NKA OBJECTIVE: Vitals:T: 36.8 DegC HR: 96 RR: 15 BP: 115/72 SpO2: 99 % Physical Examination: General: Alert, no acute distress. Skin: Warm, dry, intact, no rash. Head: Normocephalic, atraumatic. _ Eye: normal conjunctiva, PERRLA Throat: oral mucosa moist Cardiovascular: Regular rate and rhythm, No murmur, Normal peripheral perfusion, no edema Respiratory: Lungs are clear to auscultation, respirations non labored, no crackles. No wheezing. _ Gastrointestinal: Soft, nontender, non-distended. Psychiatric: Cooperative, appropriate mood and affect Neuro: Mental status: alert, oriented, appropriately responding to commands Speech/Language: Speech fluent, no word finding difficulty or paraphasic errors observed. No dysarthria noted. Memory-grossly recent and remote memory intact Cranial Nerves: II: No visual deficits and Visual law full to confrontation. Pupils 3-5 mm size b/l. round, reactive to light and accommodation. III, IV, : EOMI, No nystagmus, No Ptosis, Conjugate horizontal gaze intact. V: Gross sensation intact in V1, V2 and V3 distribution to crude touch. Jaw strength normal. VII: No facial asymmetry noted, able to frown symmetrically and b/l good eye closure. VIII: Hearing intact in both ears per voice IX, X: Symmetrical palate elevation, uvula in midline. XI: Symmetrical head rotation and shoulder shrug IX, XII: Midline tongue protrusion. No fasciculations or atrophy noted. _ Sensory examination Crude touch in bilateral upper and lower extremity 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 Motor examination No drift in bilateral upper extremity noted 2+ reflexes in biceps, triceps, brachioradialis, patellar, Achilles No Rivas's or ankle clonus Plantars bilaterally downgoing Coordination Novyms-hn-acgy test and xbje-qk-noix test performed without any difficulty with no dysmetria Gait Deferred Labs: CBC (05/23/24) WBC 4.99 Hgb L 8.6 Hct L 27.2 MCV H 96.1 PLT 275 Coagulation Panel PT 11.4 (05/23/24) 10.5 (05/22/24) 11.7 (04/04/24) PTT 26.6 (05/22/24) L 24.7 (03/30/24) 25.3 (03/29/24) INR 1.0 (05/23/24) 0.9 (05/22/24) 1.0 (04/04/24) Fibrinogen 313 (04/03/24) 243 (04/02/24) 253 (03/30/24) Diagnostics: (05/22/2024 11:[address] Neuronavigational Head) IMPRESSION: Planning study shows no acute intracranial abnormality. [1] ASSESSMENT/PLAN: Hospital Course: 24-year-old male with a history of intellectual disability, recently diagnosed B-cell AL L with tissue confirmatory samples who is status post 1 round of chemotherapy. Patient admitted to NSICU today for postoperative monitoring and every hour neurochecks. Patient underwent Rickham [place] placement with neurosurgery on 05/23 for planned intrathecal chemotherapy. Patient was originally admitted to the hospital under the hematology/oncology service and they are primary providers for this patient. Interval History: Patient was taken to the OR on the morning of 05/23 and had uncomplicated rectum reservoir placement completed with neurosurgery. Admitted to NSICU for close postoperative monitoring. 24 Hour Plan: -q1h neuro checks -CT in am -SBP<140 -F/u NSGY and Heme/Onc Neurological #s/p TOWER ERECTOR shunt for intrathecal access -q1h neuro checks -CTH in AM Respiratory #No acute concerns - On RA on arrival -Maintain SpO2 > 92% Ventilator Settings Respiratory Rate: 15 breaths/min (05/23/24 13:50:26) Cardiovascular #No acute concerns -SBP goal < 140 Renal #No acute concerns -I/Os -Replete lytes prn -AM CMP Valadez Catheter: no In/Out in last 24 hrs: No I and O data available 6:00 AM yesterday to 5:59 AM today I and O: 6:00 AM Today to Current (05/23 14:27) Intake: 1045.30 ml (173.63 ml/hr*) Output: 0.00 ml (0.00 ml/hr*) Urine portion: 0.00 ml (0.00 ml/hr*) Balance: 1045.30 ml *Estimated - partial day. GI #No acute concerns -Zofran and compazine prn for nausea GI Prophylaxis: Last Bowel Movement: -Bowel Regimen: Endocrine #No acute concerns -Monitor BG Hem-Onc #B-Cell ALL -Heme/Onc primary -Monitor CBC daily -HOLDING DVT PPx today -Follow-up neurosurgical movement hematology/oncology planning. In particular, the patient is intermediate hospital for chemotherapy postoperatively. ID #No acute concerns -Ancef post-operatively Diet/DVT/Activity/Code Status - Diet: Regular Diet : Ordered on 05/23/24 12:27:00 CDT, Meal Start Time Breakfast 0700 to 0900 - DVT Prophylaxis: SCDs placed to legs bilaterally - Lines: PIV - Activity: as tolerated - Code Status: FULL Code Disposition Inpatient: ICU Status, Room # 38 Discharge: back to home anticipated, PT/OT consult(s) pending Patient staffed with attending physician Dr. Jacques Balderas I have seen and evaluated the patient together with the house staff on 05/23/2024 , and agree with the findings, plan of care. I have independently reviewed pertinent labs and imaging. I agree with the house staff note with the exceptions and/or additions noted/outlined above. In my opinion the patient remains Critically Ill due to the following conditions: 24 Male, hx of intellectual disability, recently dx of B cell ALL, admitted with rickham reservoir placement for intraventricular chemotherapy on 05/23, patient is currently stable, with 6/10 headache. Continue to monitor overnight as patient is day 0 postop and admitted for q1 neruochecks as patient is at high risk of clinical detoriation. I spent 35 minutes of my critical care time managing and monitoring the patient at the bedside. This time does not include of any time for procedures or teaching. 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 Procedure: Right Sided Ventricular [place] Placement Attending Surgeon: Marcio Mansfield MD Resident Surgeon: MD Oli Gallagher MD Anesthesia: GETA Findings: Uncomplicated ventricular reservoir placement Specimens: None EBL: 3 cc Drains: None Complications: None Condition/Disposition: Extubated to PACU 05/23/2024 Op/Procedure Note [facility] Patient Name: ERNESTINA Burt Age: 24 yo Admission Date: 05/23/2024 Date of Procedure: 05/23/2024 Attending: Marcio Mansfield MD Attending Surgeon Marcio Mansfield MD Referring Physician: Heike Barrientos MD Referring Address: Referring Address 2: Referring City: Referring State: Referring Zip: Referring Fax #: Medical Service: NEUROSURGERY Dictated by: Marcio Mansfield MD OPERATIVE NOTE ATTENDING SURGEON: Marcio Mansfield MD RESIDENT SURGEON: MD Oli Osborne MD. NAME OF OPERATION/PROCEDURE: Placement of right frontal Ommaya reservoir with ventricular catheter. PREOPERATIVE DIAGNOSIS: ALL with need for IT access POSTOPERATIVE DIAGNOSIS: Same INDICATIONS FOR PROCEDURE: The patient is a 24-year-old man who was diagnosed with B-cell ALL in February of 2024 after a bone marrow biopsy. He received hyper-CVAD as an inpatient as systemic treatment and we were consulted for assistance with ventricular access with the plan for intrathecal therapy as well. The patient was discussed with the oncology service to determine the appropriate timing given the possibility of cytopenias. Patient was seen in the preoperative setting and the procedure was discussed and rationale as well as the risks and benefits, including pain, bleeding, infection, needing further procedures in the future, new weakness, numbness, tingling, strokes, disability, even coma and . Patient consented in the preoperative area and the operative plan was reviewed. ANESTHESIA: General endotracheal anesthesia. OPERATIVE FINDINGS: Clear CSF egress from the ventricular catheter after 1 pass. DESCRIPTION OF PROCEDURE: The patient was processed in the standard preoperative fashion with consent and operative plan reviewed. All labs and imaging were reviewed as well. He was brought back to the operating room where general endotracheal anesthesia was administered. All lines were established and care was taken to pad all bony prominences. He was positioned supine in 3-point fixation in the [place] pin hogshead packer. The [employer] neuronavigation device was set up and the patient was registered to the system and a good registration match was determined. A proposed entry point was planned at [place] point in the right frontal region. The plan was reviewed sequentially down the path of the trajectory to ensure no traversing sulci or vessels. Sterile prep and drape was performed, and a timeout was performed as well. The [employer] was re-confirmed to be accurate after draping. The skin was infiltrated over the right frontal area along the proposed C-shaped incision with 1% lidocaine with epinephrine and the scalp was opened down through the galea with a 10 blade scalpel. The scalp was reflected back and a bur hole was drilled using a 6 mm bur down to the dura. The dura was coagulated and then sharply incised and a 7 cm ventricular catheter using the navigated stylet was passed down along the trajectory to the target and clear CSF egress was noted from the catheter. The 9.5 mm Rickham reservoir was secured to the catheter using a 2-0 silk tie and a tuberculin syringe was then placed into the reservoir to ensure CSF flow, which did return again clear CSF. At this point, catheter placement was felt to be adequate and the surgical site was irrigated copiously with irrigation, and the galea was closed using 2-0 inverted interrupted sutures and the scalp was closed using running 3-0 nylon suture. The sterile drapes were then taken down. The patient was cleaned from prep and bacitracin was placed along the incision. Patient was removed from pins and care was transferred back to the anesthesiologist and he was roused from general anesthesia and extubated in the operating room. SPECIMEN: None. DRAINS: None. ESTIMATED BLOOD LOSS: 10 mL. DISPOSITION: To PACU in stable condition. [id number] Heike Barrientos MD 05/23/2024 Op/Procedure Note Procedure Attending Physician: Derick Olivo MD Service: Interventional Radiology Procedure Performed: 1. Image guided LP with IT chemo admin 2. _ 3. _ 4. _ 5. _ Conscious sedation for a total of 0 minutes. Sedatives used: [_] Versed [x] Fentanyl [_] Benadryl [_] Dilauded [x] Lidocaine with/without Epinephrine Procedure Performed By: Attending Physician: Derick Olivo MD Assisting: Felipe RODRIGUEZ Description of Procedure Pre Op Diagnosis: No Chronic Problems ALL Post Op Diagnosis: No Chronic Problems ALL Location of Procedure: Radiology Informed Consent Obtained: Yes, Risk/Benefits discussed Monitoring During Procedure: [x] Blood Pressure Monitoring [x] Cardiac Monitoring [x] Continuous Pulse Oximetry [x] Heart Rate [x] Respiratory Rate Prep and Technique: Usual Standard Manner. Expediter Clerk Prep: [x] Cap, [x] Eye protection, [x] Mask, [x] Sterile gloves, [x] Sterile gowns. Patient Prep: [x] Prepped in sterile manner, [x] Prep solution +, [x] Draped in sterile manner. Anesthesia: IV Sedation: [_] Versed = 0mg [_] Fentanyl = 100mcg Local: 1% Lidocaine without Epinephrine Position of Patient: Prone Procedure Findings: Immediate Post Op Note: Image guided LP with IT chemo admin of 100mg cytarabine. No acute complications. See radiology report when available for additional details. Complications: none. Condition: Stable Procedure Tolerated: Fair Estimated Blood Lost: Minimal Complications: none Drains: none Specimen: none Attending Physician Present For: Entire Procedure I personally performed the procedure with JENNIFER Banks and agree with their assessment and plan as documented above. Derick Olivo MD Staff, Vascular/Interventional Radiologist 05/06/2024 Hem Oncology IM Consult Note Subjective Chief Complaint No acute events overnight. Patient resting comfortably this morning. Doing well. Denies any concerns. He is scheduled to get IT chemo today and potentially will get discharged after IT chemo. Objective Vitals and Measurements T: 36.8 C HR: 71 RR: 17 BP: 138/80 SpO2: 99% Physical Exam General: Awake and alert. In no apparent distress. HEENT: Atraumatic. Normocephalic. Moist mucous membranes. Cardiovascular: RRR. No murmurs, rubs or gallops appreciated. Lungs: CTA bilaterally. No wheezes, rales or rhonchi. Abdomen: Non-tender, non-distended. Normoactive bowel sounds. Extremities: No edema. Neuro: No gross focal deficits. Psych: Appropriate mood and affect. Lab Results CBC (05/06/24) WBC H 20.76 Hgb L 8.6 Hct L 25.7 MCV 93.8 PLT H 696 Auto Differential % nRBC 0.2 Absolute nRBC H 0.1 % Neutrophils 87.6 Absolute Neut H 18.20 % Im Granulocyt H 2.60 Absolute Im Gra H 0.53 % Lymphocytes 2.6 % Monocytes 7.0 % Eosinophils 0.1 % Basophils 0.1 Renal Function Panel (05/06/24) Na+ 140 K+ 3.7 Cl- 107 CO2 24 Anion gap 13 BUN 14 Creat L 0.5 Estimated GFR f 142 Estimated GFR f Not calculated Ca 9.1 Phosphorus 3.9 Alb L 3.1 Hemolysis Index 0 GLU 103 Icteria Index 0 Lipemia Index 0 Diagnostic Results Assessment/Plan Patient Summary Mr. Do is a 24-year-old male patient of Dr. Barrientos with a medical history significant for a presumed intellectual disability and recently diagnosed B cell ALL which was diagnosed in 02/2024. He underwent a BM biopsy on 03/15/24 which was consistent with a diagnosis of B ALL with 90 % blasts. Patient received HyperCVAD cycle 1A and 1B inpatient cycle 1B finishing on 04/16/24. He was admitted on 04/26/24 for a febrile illness suspected to be secondary to a dental infection, he was originally due for Cycle 2A on 04/29/24, we initiated on 05/02/24. Plan for discharge after IT chemo 05/06. Discussed with Dr. Barrientos, will not administer filgrastim with this cycle due to leukocytosis. Patient to follow up in [place] for D11 Vincristine and Rituximab. Records have been faxed to Dr. Archer's office and patient to follow up with Dr. Archer after completion of cycle 2A. Sepsis due to Dental infection, improved - Blood cultures obtained on 04/25 at hospital in [place], positive in 1/4 bottle, likely contaminant. Blood cultures negative from 04/29/24 - Initiated on meropenem at OSH, continue Zosyn for now to complete 7 day course - Maxillofacial fluid with no abscess on drainable fluid collection - Will eventually need dental follow up outpatient, oral maxillofacial surgery not available at in case drainage is needed - Continue PO abx on discharge until evaluation by dentist Oncologic history and Hematological workup - Initial labs were significant for WBC count 69.4 K, hemoglobin of 5 g/dl, platelet of 58 K, mildly prolonged PT, normal PTT, and fibrinogen levels. Additionally, the patient had hyperuricemia and hyperglycemia. No evidence of TLS. - Peripheral blood smear showed atypical mononuclear cells, most probably blasts, with no signs of Nancy rods. 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 - Echocardiogram on 03/13/2024 showed left ventricular systolic function is hyperdynamic, with an ejection fraction >70%. Left ventricular diastolic function is normal. - Hepatitis panel is negative. HIV testing is negative. - MRI of the brain is negative for features indicative of TOWER EQUIPMENT INSTALLER involvement or acute intracranial abnormalities. - Scrotal ultrasound showed normal scrotum and testes with no evidence of testicular involvement - Chemotherapy education for Hyper-CVAD and consent were completed on 03/14/24 - Bone marrow biopsy by IR on 03/15/2024 showed B-ALL, NGS showed TCF3-PBX1 fusion and an NSD2 (WHSC1 or MMSET) [id number] alteration (VAF 32.32%). 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 However, patient was unable to provide the sample. I personally discussed this with Shena Costello, who is patient's sister and DPOA she agreed to proceed with treatment. - Cycle 1A Day 1 of hyper-CVAD (Part A) on 03/15/2024, Cycle 1 B on 04/08/2024, Received IT chemotherapy on 04/15/24, SC filgrastim on 04/13/2024 and rituximab on 04/16/2024 - Bone marrow biopsy done on 04/04/2024 before Cycle 1B; MRD negative, awaiting for clonal seq. B-cell acute lymphoblastic leukemia - Plan for tentative start of Day 1 of Cycle 2A due on 05/02/2024. - Daily CBC, CMP, and TLS labs (uric acid, phosphorus level, and LDH) - Daily DIC panel (fibrinogen levels, PT/INR, PTT) - Provide supportive transfusions to keep hemoglobin above 7 g/dL and platelet count above 10 K - Recommend using cryoprecipitate 10 units if fibrinogen is less than 150, with a goal to keep fibrinogen above 150 - Strictly use irradiated blood products - Avoid using Tylenol and NSAIDs for pain control. - Will eventually prefer to have a Rickham reservoir but this will need to be scheduled outpatient. - Patient will follow up in [place] with Dr. Archer for further treatment of his B-ALL after cycle 2A. Called Dr. Archer's office and they are working on scheduling the patient. Chemotherapy regimen Hyper-CVAD Chemotherapy, Part A, alternating with high dose MTX and cytarabine, cycle 2A initiated on 05/02 (Day 2) - Cyclophosphamide (Cytoxan) 300 mg/m2 IV over 2 hours every 12 hours on days 1 to 3: - Vincristine (Oncovin) 2 mg IV once per day on days 4 and 11 - Doxorubicin (Adriamycin) 50 mg/m2 IV continuous infusion over 24 hours, started on day 4 - Dexamethasone (Decadron) 40 mg IV or PO once per day on days 1 to 4, 11 to 14 - Rituximab 375 mg/m2, will plan for day 11 along with vincristine. Supportive medications - Mesna (Mesnex) 600 mg/m2/day IV continuous infusion over 72 hours, started on day 1, starting 1 hour before Cyclophosphamide (Cytoxan) and completed 12 hours after the last dose of Cyclophosphamide (Cytoxan) - Filgrastim (Neupogen) 5 mcg/kg SC once per day, starting 24 hours after completion of intensive courses of chemotherapy (day 5 for part A, day 4 for part B), given until ANC greater than 1000/uL VS outpatient Neulasta. Plan to not administer during this cycle due to high white blood cell count. 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 Antibiotic prophylaxis: - Acyclovir 400 mg PO BID While on treatment - Levaquin 500 mg PO daily while on treatment - Fluconazole 200 mg PO daily while on treatment - Bactrim DS PO MWF while on treatment Thrombocytosis, improving - Likely reactive from his infection and recovery from chemotherapy - Continue to monitor for now Anemia - Stable without the need for transfusions currently - Likely secondary to chemotherapy and leukemia - Transfuse for <7, strictly use irradiated blood products Follow-up: Patient to follow up in [place] for D11 Vincristine and Rituximab. Records have been faxed to Dr. Archer's office in [place], [place] and patient to follow up with Dr. Archer after completion of cycle 2A. Talked to patient's sister Shena and explained the plan in detail. The patient was seen and staffed with Dr. Barrientos Addendum: Patient seen and examined on 05/06/24 with the fellow, Dr. Gordon. Labs and clinical history reviewed. Physical examination completed and findings discussed with team. A total of 30 mins used in reviewing test results, creating a treatment plan and completing the documentation process. Ernestina has completed Cycle 2A of R- HyperCVAD. NO acute issues. denies N/V. Weight stable. He had a good response with bone Marrow showing significant reduction in disease burden post Cycle#1 which is a good prognostic indicator. Heike Barrientos MD 05/06/2024 Hem Oncology IM Consult Note Subjective Chief Complaint Patient resting comfortably. Denies fever, chills. States that he has been eating and drinking well. Has been ambulating without any issues. Reports that he has some chronic pain but it is well-controlled. Discussed that his labs have been reviewed and he is okay to proceed with his day 4 of cycle A2 today. Objective Vitals and Measurements T: 36.9 C TMIN: 36.7 C TMAX: 36.9 C HR: 74 RR: 12 BP: 135/76 SpO2: 100% Physical Exam General: Awake and alert. In no apparent distress. HEENT: Atraumatic. Normocephalic. Moist mucous membranes. Cardiovascular: RRR. No murmurs, rubs or gallops appreciated. Lungs: CTA bilaterally. No wheezes, rales or rhonchi. Abdomen: Non-tender, non-distended. Normoactive bowel sounds. Extremities: No edema. Neuro: No gross focal deficits. Psych: Appropriate mood and affect. Lab Results CBC (05/05/24) WBC H 21.44 Hgb L 8.5 Hct L 26.9 MCV H 95.7 PLT H 809 Auto Differential % nRBC 0.2 Absolute nRBC 0.0 % Neutrophils 90.1 Absolute Neut H 19.30 % Im Granulocyt H 5.00 Absolute Im Gra H 1.08 % Lymphocytes 2.8 % Monocytes 2.0 % Eosinophils 0.0 % Basophils 0.1 Comprehensive Metabolic Panel (05/05/24) Na+ 140 K+ 4.1 Cl- 107 CO2 24 Anion gap 13 GLU 124 BUN 10 Creat L 0.5 Estimated GFR f 144 Estimated GFR f Not calculated Ca 9.3 Alk Phos 128 AST 19 ALT 17 T Bili 0.33 Total Protein 6.0 Alb L 3.3 Hemolysis Index 0 Icteria Index 0 Lipemia Index 0 Diagnostic Results Assessment/Plan Patient Summary Mr. Do is a 24-year-old male patient of Dr. Barrientos with a medical history significant for a presumed intellectual disability and recently diagnosed B cell ALL which was diagnosed in 02/2024. He underwent a BM biopsy on 03/15/24 which was consistent with a diagnosis of B ALL with 90 % blasts. Patient received HyperCVAD cycle 1A and 1B inpatient cycle 1B finishing on 04/16/24. He was admitted on 04/26/24 for a febrile illness suspected to be secondary to a dental infection, he was originally due for Cycle 2A on 04/29/24, we initiated on 05/02/24. Sepsis due to Dental infection, improved - Blood cultures obtained on 04/25 at hospital in [place], positive in 1/4 bottle, likely contaminant. Blood cultures negative from 04/29/24 - Initiated on meropenem at OSH, continue Zosyn for now to complete 7 day course - Maxillofacial fluid with no abscess on drainable fluid collection - Will eventually need dental follow up outpatient, oral maxillofacial surgery not available at in case drainage is needed - Consider p.o. antibiotic on discharge until evaluation by dentist Oncologic history and Hematological workup - Initial labs were significant for WBC count 69.4 K, hemoglobin of 5 g/dl, platelet of 58 K, mildly prolonged PT, normal PTT, and fibrinogen levels. Additionally, the patient had hyperuricemia and hyperglycemia. No evidence of TLS. - Peripheral blood smear showed atypical mononuclear cells, most probably blasts, with no signs of Nancy rods. 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 - Echocardiogram on 03/13/2024 showed left ventricular systolic function is hyperdynamic, with an ejection fraction >70%. Left ventricular diastolic function is normal. - Hepatitis panel is negative. HIV testing is negative. - MRI of the brain is negative for features indicative of TOWER EQUIPMENT INSTALLER involvement or acute intracranial abnormalities. - Scrotal ultrasound showed normal scrotum and testes with no evidence of testicular involvement - Chemotherapy education for Hyper-CVAD and consent were completed on 03/14/24 - Bone marrow biopsy by IR on 03/15/2024 showed B-ALL, NGS showed TCF3-PBX1 fusion and an NSD2 (WHSC1 or MMSET) [id number] alteration (VAF 32.32%). 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 However, patient was unable to provide the sample. I personally discussed this with Shena Costello, who is patient's sister and DPOA she agreed to proceed with treatment. - Cycle 1A Day 1 of hyper-CVAD (Part A) on 03/15/2024, Cycle 1 B on 04/08/2024, Received IT chemotherapy on 04/15/24, SC filgrastim on 04/13/2024 and rituximab on 04/16/2024 - Bone marrow biopsy done on 04/04/2024 before Cycle 1B; MRD negative, awaiting for clonal seq. B-cell acute lymphoblastic leukemia - Plan for tentative start of Day 1 of Cycle 2A due on 05/02/2024. - Daily CBC, CMP, and TLS labs (uric acid, phosphorus level, and LDH) - Daily DIC panel (fibrinogen levels, PT/INR, PTT) - Provide supportive transfusions to keep hemoglobin above 7 g/dL and platelet count above 10 K - Recommend using cryoprecipitate 10 units if fibrinogen is less than 150, with a goal to keep fibrinogen above 150 - Strictly use irradiated blood products - Avoid using Tylenol and NSAIDs for pain control. - Will eventually prefer to have a [place] reservoir but this will need to be scheduled outpatient. - Patient will follow up in [place] with Dr. Archer for further treatment of his B-ALL after cycle 2A Chemotherapy regimen Hyper-CVAD Chemotherapy, Part A, alternating with high dose MTX and cytarabine, cycle 2A initiated on 05/02 (Day 2) - Cyclophosphamide (Cytoxan) 300 mg/m2 IV over 2 hours every 12 hours on days 1 to 3: - Vincristine (Oncovin) 2 mg IV once per day on days 4 and 11 - Doxorubicin (Adriamycin) 50 mg/m2 IV continuous infusion over 24 hours, started on day 4 - Dexamethasone (Decadron) 40 mg IV or PO once per day on days 1 to 4, 11 to 14 - Rituximab 375 mg/m2, will plan for day 11 along with vincristine. Supportive medications - Mesna (Mesnex) 600 mg/m2/day IV continuous infusion over 72 hours, started on day 1, starting 1 hour before Cyclophosphamide (Cytoxan) and completed 12 hours after the last dose of Cyclophosphamide (Cytoxan) - Filgrastim (Neupogen) 5 mcg/kg SC once per day, starting 24 hours after completion of intensive courses of chemotherapy (day 5 for part A, day 4 for part B), given until ANC greater than 1000/uL VS outpatient Neulasta. 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 Antibiotic prophylaxis: - Acyclovir 400 mg PO BID While on treatment - Levaquin 500 mg PO daily while on treatment - Fluconazole 200 mg PO daily while on treatment - Bactrim DS PO MWF while on treatment Thrombocytosis, improving - Likely reactive from his infection and recovery from chemotherapy - Continue to monitor for now Anemia - Stable without the need for transfusions currently - Likely secondary to chemotherapy and leukemia - Transfuse for <7, strictly use irradiated blood products Follow-up: Patient will be scheduled in [facility] for day 11 when vincristine and rituximab. He will start Neupogen on day 6 for total of 5 days. He will follow up with Dr. Archer on discharge prior to cycle B2 in [place]. Records from [facility] will be faxed to their office in [place]. The patient was seen and staffed with Dr. Freedman. I personally saw and evaluated the patient on 05/05/2024 with . I independently performed rush portions of history, physical, evaluation and management and discussed the management with the fellow. At this time is tolerating treatment no difficulty with urination, nausea or vomiting, day four tomorrow. I reviewed history and labs and assessment and plan and reviewed the fellow&rsquo;s note and it&rsquo;s content. 05/05/2024 Hem Oncology IM Consult Note Subjective Mr. Do was seen resting in bed today, he has no symptoms, he is tolerating chemotherapy well. Vital signs are stable. Labs are okay to proceed with chemotherapy today for Day 3 of Cycle 2A Review of Systems Negative except as stated in the HPI Objective Vitals and Measurements T: 36.5 C TMIN: 36.5 C TMAX: 36.8 C HR: 90 RR: 18 BP: 129/68 SpO2: 99% Physical Exam General: Alert and oriented. No distress. Eye: EOMI. Normal conjunctiva. HEENT: Normal hearing. Moist oral mucosa. No lymphadenopathy. Pain and swelling in the right perioral cavity Cardiovascular: Regular rate and rhythm. Radial pulse palpable. Pulmonary: Clear to auscultation bilaterally. Normal effort. Abdomen: Soft. Nontender. Musculoskeletal: No lower extremity edema. Nontender. Skin: Warm and dry. Neuro: No focal deficits. Normal gait. Psychiatric: Cooperative. Appropriate affect. Lab Results Test Name Test Result Date/Time WBC 33.06 x10(9)/L (High) 05/04/2024 02:43 CDT HGB 8.6 g/dL (Low) 05/04/2024 02:43 CDT MCV 95.7 fL (High) 05/04/2024 02:43 CDT RDW SD 58.8 fL (High) 05/04/2024 02:43 CDT PLT 1080 x10(9)/L (Critical) 05/04/2024 02:43 CDT Absolute Granulocytes 28.23 x10(9)/L (High) 05/04/2024 02:43 CDT % Immature Granulocytes 6.60 % (High) 05/04/2024 02:43 CDT Abs Monocytes 1.67 x10(9)/L (High) 05/04/2024 02:43 CDT Abs Eosinophils 0.00 x10(9)/L (Low) 05/04/2024 02:43 CDT Sodium 140 mmol/L 05/04/2024 02:43 CDT Potassium 4.0 mmol/L 05/04/2024 02:43 CDT Chloride 108 mmol/L (High) 05/04/2024 02:43 CDT CO2 23 mmol/L 05/04/2024 02:43 CDT Glucose Lvl 161 mg/dL (High) 05/04/2024 02:43 CDT BUN 9 mg/dL 05/04/2024 02:43 CDT Creatinine, standardized 0.5 mg/dL (Low) 05/04/2024 02:43 CDT Calcium 9.2 mg/dL 05/04/2024 02:43 CDT Phosphorus 3.1 mg/dL 05/04/2024 02:43 CDT Albumin 3.2 g/dL (Low) 05/04/2024 02:43 CDT Assessment/Plan Assessment/Plan Mr. Do is a 24-year-old male patient of Dr. Barrientos with a medical history significant for a presumed intellectual disability and recently diagnosed B cell ALL which was diagnosed in 02/2024. He underwent a BM biopsy on 03/15/24 which was consistent with a diagnosis of B ALL with 90 % blasts. Patient received HyperCVAD cycle 1A and 1B inpatient cycle 1B finishing on 04/16/24. He was admitted on 04/26/24 for a febrile illness suspected to be secondary to a dental infection, he was originally due for Cycle 2A on 04/29/24, we initiated on 05/02/24 Sepsis due to Dental infection - Fevers with pain and swelling of the right jaw - Blood cultures obtained on 04/25 at hospital in [place], positive in 1/4 bottle, likely contaminant. Blood cultures negative from 04/29/24 - Initiated on meropenem at OSH, continue Zosyn for now to complete 7 day course - Maxillofacial fluid with no abscess on drainable fluid collection - Will eventually need dental follow up outpatient, oral maxillofacial surgery not available at in case drainage is needed Oncologic history and Hematological workup - Initial labs were significant for WBC count 69.4 K, hemoglobin of 5 g/dl, platelet of 58 K, mildly prolonged PT, normal PTT, and fibrinogen levels. Additionally, the patient had hyperuricemia and hyperglycemia. No evidence of TLS. - Peripheral blood smear showed atypical mononuclear cells, most probably blasts, with no signs of Nancy rods. 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 - Echocardiogram on 03/13/2024 showed left ventricular systolic function is hyperdynamic, with an ejection fraction >70%. Left ventricular diastolic function is normal. - Hepatitis panel is negative. HIV testing is negative. - MRI of the brain is negative for features indicative of T[employer]ER involvement or acute intracranial abnormalities. - Scrotal ultrasound showed normal scrotum and testes with no evidence of testicular involvement - Chemotherapy education for Hyper-CVAD and consent were completed on 03/14/24 - Bone marrow biopsy by IR on 03/15/2024 showed B-ALL, NGS showed TCF3-PBX1 fusion and an NSD2 (WHSC1 or MMSET) [id number] alteration (VAF 32.32%). 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 However, patient was unable to provide the sample. I personally discussed this with Shena Costello, who is patient's sister and DPOA she agreed to proceed with treatment. - Cycle 1A Day 1 of hyper-CVAD (Part A) on 03/15/2024, Cycle 1 B on 04/08/2024, Received IT chemotherapy on 04/15/24, SC filgrastim on 04/13/2024 and rituximab on 04/16/2024 - Bone marrow biopsy done on 04/04/2024 before Cycle 1B; MRD negative, awaiting for clonal seq. B-cell acute lymphoblastic leukemia - Plan for tentative start of Day 1 of Cycle 2A due on 05/02/2024. - Daily CBC, CMP, and TLS labs (uric acid, phosphorus level, and LDH) - Daily DIC panel (fibrinogen levels, PT/INR, PTT) - Provide supportive transfusions to keep hemoglobin above 7 g/dL and platelet count above 10 K - Recommend using cryoprecipitate 10 units if fibrinogen is less than 150, with a goal to keep fibrinogen above 150 - Strictly use irradiated blood products - Avoid using Tylenol and NSAIDs for pain control. - Will eventually prefer to have a [place] reservoir but this will need to be scheduled outpatient. - Patient will follow up in [place] with Dr. Archer for further treatment of his B-ALL after cycle 2A Chemotherapy regimen Hyper-CVAD Chemotherapy, Part A, alternating with high dose MTX and cytarabine, cycle 2A initiated on 05/02 (Day 2) - Cyclophosphamide (Cytoxan) 300 mg/m2 IV over 2 hours every 12 hours on days 1 to 3: - Vincristine (Oncovin) 2 mg IV once per day on days 4 and 11 - Doxorubicin (Adriamycin) 50 mg/m2 IV continuous infusion over 24 hours, started on day 4 - Dexamethasone (Decadron) 40 mg IV or PO once per day on days 1 to 4, 11 to 14 - Rituximab 375 mg/m2, will plan for day 11 along with vincristine. Supportive medications - Mesna (Mesnex) 600 mg/m2/day IV continuous infusion over 72 hours, started on day 1, starting 1 hour before Cyclophosphamide (Cytoxan) and completed 12 hours after the last dose of Cyclophosphamide (Cytoxan) - Filgrastim (Neupogen) 5 mcg/kg SC once per day, starting 24 hours after completion of intensive courses of chemotherapy (day 5 for part A, day 4 for part B), given until ANC greater than 1000/uL VS outpatient Neulasta. 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 Antibiotic prophylaxis: - Acyclovir 400 mg PO BID While on treatment - Levaquin 500 mg PO daily while on treatment - Fluconazole 200 mg PO daily while on treatment - Bactrim DS PO MWF while on treatment Thrombocytosis - Likely reactive from his infection and recovery from chemotherapy - Continue to monitor for now Anemia - Stable without the need for transfusions currently - Likely secondary to chemotherapy and leukemia - Transfuse for <7 Intellectual disability Autism - PT/OT consult - Case management consult - Outpatient case management/care coordination The patient was seen and staffed with Dr. Freedman. He will follow up with Dr. Archer on discharge in [place]. Records from [facility] will be faxed to their office in [place]. Luis Badillo MD PGY 4 Hematology Oncology fellow [facility] I personally saw and evaluated the patient on 05/04/[address] Badillo. I independently performed rush portions of history, physical, evaluation and management and discussed the management with the fellow. Will need to continue to monitor WBC and platelet counts. I reviewed history and labs and assessment and plan and reviewed the fellow&rsquo;s note and it&rsquo;s content. 05/04/2024 Hem Oncology IM Consult Note Subjective Mr. Do was seen resting in bed. He has no symptoms, he has had no overnight events. Vital signs were stable. Labs reviewed and okay to proceed with Day 2 today. Review of Systems Negative except as stated in the HPI Objective Vitals and Measurements T: 36.8 C TMIN: 36.7 C TMAX: 37 C HR: 89 RR: 20 BP: 107/80 SpO2: 96% Physical Exam General: Alert and oriented. No distress. Eye: EOMI. Normal conjunctiva. HEENT: Normal hearing. Moist oral mucosa. No lymphadenopathy. Pain and swelling in the right perioral cavity Cardiovascular: Regular rate and rhythm. Radial pulse palpable. Pulmonary: Clear to auscultation bilaterally. Normal effort. Abdomen: Soft. Nontender. Musculoskeletal: No lower extremity edema. Nontender. Skin: Warm and dry. Neuro: No focal deficits. Normal gait. Psychiatric: Cooperative. Appropriate affect. Lab Results Test Name Test Result Date/Time WBC 28.92 x10(9)/L (High) 05/03/2024 04:30 CDT HGB 8.7 g/dL (Low) 05/03/2024 04:30 CDT MCV 94.8 fL 05/03/2024 04:30 CDT PLT 1261 x10(9)/L (Critical) 05/03/2024 04:30 CDT Absolute Granulocytes 23.54 x10(9)/L (High) 05/03/2024 04:30 CDT % Immature Granulocytes 10.20 % (High) 05/03/2024 04:30 CDT Abs Monocytes 1.21 x10(9)/L (High) 05/03/2024 04:30 CDT Abs Eosinophils 0.01 x10(9)/L (Low) 05/03/2024 04:30 CDT Sodium 140 mmol/L 05/03/2024 04:30 CDT Potassium 4.1 mmol/L 05/03/2024 04:30 CDT Chloride 107 mmol/L 05/03/2024 04:30 CDT CO2 24 mmol/L 05/03/2024 04:30 CDT Glucose Lvl 179 mg/dL (High) 05/03/2024 04:30 CDT BUN 7 mg/dL 05/03/2024 04:30 CDT Creatinine, standardized 0.4 mg/dL (Low) 05/03/2024 04:30 CDT Calcium 9.1 mg/dL 05/03/2024 04:30 CDT Phosphorus 3.3 mg/dL 05/03/2024 04:30 CDT Albumin 3.1 g/dL (Low) 05/03/2024 04:30 CDT Assessment/Plan Mr. Do is a 24-year-old male patient of Dr. Freedman with a medical history significant for a presumed intellectual disability and recently diagnosed B cell ALL which was diagnosed in 02/2024. He underwent a BM biopsy on 03/15/24 which was consistent with a diagnosis of B ALL with 90 % blasts. Patient received HyperCVAD cycle 1A and 1B inpatient cycle 1B finishing on 04/16/24. He was admitted on 04/26/24 for a febrile illness suspected to be secondary to a dental infection, he was originally due for Cycle 2A on 04/29/24, we initiated on 05/02/24 Sepsis due to Dental infection - Fevers with pain and swelling of the right jaw - Blood cultures obtained on 04/25 at hospital in [place], positive in 1/4 bottle, likely contaminant. Blood cultures negative from 04/29/24 - Initiated on meropenem at OSH, continue Zosyn for now to complete 7 day course - Maxillofacial fluid with no abscess on drainable fluid collection - Will eventually need dental follow up outpatient, oral maxillofacial surgery not available at in case drainage is needed Oncologic history and Hematological workup - Initial labs were significant for WBC count 69.4 K, hemoglobin of 5 g/dl, platelet of 58 K, mildly prolonged PT, normal PTT, and fibrinogen levels. Additionally, the patient had hyperuricemia and hyperglycemia. No evidence of TLS. - Peripheral blood smear showed atypical mononuclear cells, most probably blasts, with no signs of Nancy rods. 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 - Echocardiogram on 03/13/2024 showed left ventricular systolic function is hyperdynamic, with an ejection fraction >70%. Left ventricular diastolic function is normal. - Hepatitis panel is negative. HIV testing is negative. - MRI of the brain is negative for features indicative of T[employer]ER involvement or acute intracranial abnormalities. - Scrotal ultrasound showed normal scrotum and testes with no evidence of testicular involvement - Chemotherapy education for Hyper-CVAD and consent were completed on 03/14/24 - Bone marrow biopsy by IR on 03/15/2024 showed B-ALL, NGS showed TCF3-PBX1 fusion and an NSD2 (WHSC1 or MMSET) [id number] alteration (VAF 32.32%). 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 However, patient was unable to provide the sample. I personally discussed this with Shena Costello, who is patient's sister and DPOA she agreed to proceed with treatment. - Cycle 1A Day 1 of hyper-CVAD (Part A) on 03/15/2024, Cycle 1 B on 04/08/2024, Received IT chemotherapy on 04/15/24, SC filgrastim on 04/13/2024 and rituximab on 04/16/2024 - Bone marrow biopsy done on 04/04/2024 before Cycle 1B; MRD negative, awaiting for clonal seq. B-cell acute lymphoblastic leukemia - Plan for tentative start of Day 1 of Cycle 2A due on 05/02/2024. - Daily CBC, CMP, and TLS labs (uric acid, phosphorus level, and LDH) - Daily DIC panel (fibrinogen levels, PT/INR, PTT) - Provide supportive transfusions to keep hemoglobin above 7 g/dL and platelet count above 10 K - Recommend using cryoprecipitate 10 units if fibrinogen is less than 150, with a goal to keep fibrinogen above 150 - Strictly use irradiated blood products - Avoid using Tylenol and NSAIDs for pain control. - Will eventually prefer to have a [place] reservoir but will wait for improved control of infectious process and after it is ensured that the patient is not bacteremic. Chemotherapy regimen Hyper-CVAD Chemotherapy, Part A, alternating with high dose MTX and cytarabine, cycle 2A initiated on 05/02 (Day 2) - Cyclophosphamide (Cytoxan) 300 mg/m2 IV over 2 hours every 12 hours on days 1 to 3: - Vincristine (Oncovin) 2 mg IV once per day on days 4 and 11 - Doxorubicin (Adriamycin) 50 mg/m2 IV continuous infusion over 24 hours, started on day 4 - Dexamethasone (Decadron) 40 mg IV or PO once per day on days 1 to 4, 11 to 14 - Rituximab 375 mg/m2, will plan for day 11 along with vincristine. Supportive medications - Mesna (Mesnex) 600 mg/m2/day IV continuous infusion over 72 hours, started on day 1, starting 1 hour before Cyclophosphamide (Cytoxan) and completed 12 hours after the last dose of Cyclophosphamide (Cytoxan) ​- Filgrastim (Neupogen) 5 mcg/kg SC once per day, starting 24 hours after completion of intensive courses of chemotherapy (day 5 for part A, day 4 for part B), given until ANC greater than 1000/uL VS outpatient Neulasta. 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 Antibiotic prophylaxis: - Acyclovir 400 mg PO BID While on treatment - Levaquin 500 mg PO daily while on treatment - Fluconazole 200 mg PO daily while on treatment - Bactrim DS PO MWF while on treatment Thrombocytosis - Likely reactive from his infection and recovery from chemotherapy - Continue to monitor for now Anemia - Stable without the need for transfusions currently - Likely secondary to chemotherapy and leukemia - Transfuse for <7 Intellectual disability Autism - PT/OT consult - Case management consult - Outpatient case management/care coordination The patient was seen and staffed with Dr. Freedman. He will follow up with Dr. Archer on discharge in [place]. Luis Badillo MD PGY 4 Hematology Oncology fellow [facility] I personally saw and evaluated the patient on 05/03/[address] Badillo. I independently performed rush portions of history, physical, evaluation and management and discussed the management with the fellow. I reviewed history and labs and assessment and plan and reviewed the fellow&rsquo;s note and it&rsquo;s content. 05/03/2024 Hem Oncology IM Consult Note Subjective Mr. Do was seen resting in bed, he had no acute complaints, no overnight events. Labs reviewed and are within an acceptable range to proceed with chemotherapy. Review of Systems Negative except as stated in the HPI Objective Vitals and Measurements T: 36.9 C TMIN: 36.8 C TMAX: 37.1 C HR: 82 RR: 16 BP: 134/77 SpO2: 98% Physical Exam General: Alert and oriented. No distress. Eye: EOMI. Normal conjunctiva. HEENT: Normal hearing. Moist oral mucosa. No lymphadenopathy. Pain and swelling in the right perioral cavity Cardiovascular: Regular rate and rhythm. Radial pulse palpable. Pulmonary: Clear to auscultation bilaterally. Normal effort. Abdomen: Soft. Nontender. Musculoskeletal: No lower extremity edema. Nontender. Skin: Warm and dry. Neuro: No focal deficits. Normal gait. Psychiatric: Cooperative. Appropriate affect. Lab Results Test Name Test Result Date/Time WBC 24.93 x10(9)/L (High) 05/02/2024 03:54 CDT HGB 8.1 g/dL (Low) 05/02/2024 03:54 CDT MCV 95.1 fL 05/02/2024 03:54 CDT RDW SD 57.8 fL (High) 05/02/2024 03:54 CDT PLT 1459 x10(9)/L (Critical) 05/02/2024 03:54 CDT % Immature Granulocytes 16.20 % (High) 05/02/2024 03:54 CDT Abs Immature Granulocytes 4.04 x10(9)/L (High) 05/02/2024 03:54 CDT Abs Monocytes 5.94 x10(9)/L (High) 05/02/2024 03:54 CDT Abs Eosinophils 0.03 x10(9)/L (Low) 05/02/2024 03:54 CDT Absolute Nucleated RBCs 0.1 x10(9)/L (High) 05/02/2024 03:54 CDT Sodium 141 mmol/L 05/02/2024 03:54 CDT Potassium 3.4 mmol/L (Low) 05/02/2024 03:54 CDT Chloride 105 mmol/L 05/02/2024 03:54 CDT CO2 27 mmol/L 05/02/2024 03:54 CDT Glucose Lvl 103 mg/dL 05/02/2024 03:54 CDT BUN <5 mg/dL (Low) 05/02/2024 03:54 CDT Creatinine, standardized 0.6 mg/dL (Low) 05/02/2024 03:54 CDT Calcium 9.0 mg/dL 05/02/2024 03:54 CDT Phosphorus 5.1 mg/dL 05/02/2024 03:54 CDT Albumin 3.1 g/dL (Low) 05/02/2024 03:54 CDT CSF, Protein 42 mg/dL 05/02/2024 14:27 CDT CSF, Glucose 55 mg/dL 05/02/2024 14:27 CDT CSF, WBC 0 /mcL 05/02/2024 14:27 CDT CSF, RBC 11 /mcL 05/02/2024 14:27 CDT Assessment/Plan Mr. Do is a 24-year-old male patient of Dr. Freedman with a medical history significant for a presumed intellectual disability and recently diagnosed B cell ALL which was diagnosed in 02/2024. He underwent a BM biopsy on 03/15/24 which was consistent with a diagnosis of B ALL with 90 % blasts. Patient received HyperCVAD cycle 1A and 1B inpatient cycle 1B finishing on 04/16/24. He was admitted on 04/26/24 for a febrile illness suspected to be secondary to a dental infection, he was originally due for Cycle 2A on 04/29/24, we initiated today on 05/02/24 Sepsis due to Dental infection - Fevers with pain and swelling of the right jaw - Blood cultures obtained on 04/25 at hospital in [place], positive in 1/4 bottle, likely contaminant. Blood cultures negative from 04/29/24 - Initiated on meropenem at OSH, continue Zosyn for now to complete 7 day course - Maxillofacial fluid with no abscess on drainable fluid collection - Will eventually need dental follow up outpatient, oral maxillofacial surgery not available at in case drainage is needed Oncologic history and Hematological workup - Initial labs were significant for WBC count 69.4 K, hemoglobin of 5 g/dl, platelet of 58 K, mildly prolonged PT, normal PTT, and fibrinogen levels. Additionally, the patient had hyperuricemia and hyperglycemia. No evidence of TLS. - Peripheral blood smear showed atypical mononuclear cells, most probably blasts, with no signs of Nancy rods. 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 - Echocardiogram on 03/13/2024 showed left ventricular systolic function is hyperdynamic, with an ejection fraction >70%. Left ventricular diastolic function is normal. - Hepatitis panel is negative. HIV testing is negative. - MRI of the brain is negative for features indicative of T[employer]ST[employer]ER involvement or acute intracranial abnormalities. - Scrotal ultrasound showed normal scrotum and testes with no evidence of testicular involvement - Chemotherapy education for Hyper-CVAD and consent were completed on 03/14/24 - Bone marrow biopsy by IR on 03/15/2024 showed B-ALL, NGS showed TCF3-PBX1 fusion and an NSD2 (WHSC1 or MMSET) [id number] alteration (VAF 32.32%). 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 However, patient was unable to provide the sample. I personally discussed this with Shena Costello, who is patient's sister and DPOA she agreed to proceed with treatment. - Cycle 1A Day 1 of hyper-CVAD (Part A) on 03/15/2024, Cycle 1 B on 04/08/2024, Received IT chemotherapy on 04/15/24, SC filgrastim on 04/13/2024 and rituximab on 04/16/2024 - Bone marrow biopsy done on 04/04/2024 before Cycle 1B; MRD negative, awaiting for clonal seq. B-cell acute lymphoblastic leukemia - Plan for tentative start of Day 1 of Cycle 2A due on 05/02/2024. - Daily CBC, CMP, and TLS labs (uric acid, phosphorus level, and LDH) - Daily DIC panel (fibrinogen levels, PT/INR, PTT) - Provide supportive transfusions to keep hemoglobin above 7 g/dL and platelet count above 10 K - Recommend using cryoprecipitate 10 units if fibrinogen is less than 150, with a goal to keep fibrinogen above 150 - Strictly use irradiated blood products - Avoid using Tylenol and NSAIDs for pain control. - Will eventually prefer to have a [place] reservoir but will wait for improved control of infectious process and after it is ensured that the patient is not bacteremic. Chemotherapy regimen Hyper-CVAD Chemotherapy, Part A, alternating with high dose MTX and cytarabine, cycle 2A initiated on 05/02 - Cyclophosphamide (Cytoxan) 300 mg/m2 IV over 2 hours every 12 hours on days 1 to 3: - Vincristine (Oncovin) 2 mg IV once per day on days 4 and 11 - Doxorubicin (Adriamycin) 50 mg/m2 IV continuous infusion over 24 hours, started on day 4 - Dexamethasone (Decadron) 40 mg IV or PO once per day on days 1 to 4, 11 to 14 - Rituximab 375 mg/m2, will plan for day 11 along with vincristine. Supportive medications - Mesna (Mesnex) 600 mg/m2/day IV continuous infusion over 72 hours, started on day 1, starting 1 hour before Cyclophosphamide (Cytoxan) and completed 12 hours after the last dose of Cyclophosphamide (Cytoxan) - Filgrastim (Neupogen) 5 mcg/kg SC once per day, starting 24 hours after completion of intensive courses of chemotherapy (day 5 for part A, day 4 for part B), given until ANC greater than 1000/uL VS outpatient Neulasta. 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 Antibiotic prophylaxis: - Acyclovir 400 mg PO BID While on treatment - Levaquin 500 mg PO daily while on treatment - Fluconazole 200 mg PO daily while on treatment - Bactrim DS PO MWF while on treatment Thrombocytosis - Likely reactive from his infection and recovery from chemotherapy - Continue to monitor for now Anemia - Stable without the need for transfusions currently - Likely secondary to chemotherapy and leukemia - Transfuse for <7 Intellectual disability Autism - PT/OT consult - Case management consult - Outpatient case management/care coordination The patient was seen and staffed with Dr. Freedman. Chemotherapy plan was reviewed with Dr. Nation. Luis Badillo MD PGY 4 Hematology Oncology fellow [facility] I personally saw and evaluated the patient on 05/02/[address] Badillo. I independently performed rush portions of history, physical, evaluation and management and discussed the management with the fellow. Tolerated treatment well at this time. No new difficulties or side effects. Continue to monitor anemia. Thrombocytosis slowly improving. Elevated WBC likely secondary to steroids will need to continue to monitor. I reviewed history and labs and assessment and plan and reviewed the fellow&rsquo;s note and it&rsquo;s content. 05/02/2024 Op/Procedure Note Procedure Attending Physician: Derick Olivo MD Service: Interventional Radiology Procedure Performed: 1. Image guided LP 2. IT chemo administration 3. _ 4. _ 5. _ Conscious sedation for a total of 0 minutes. Sedatives used: [_] Versed [x] Fentanyl [_] Benadryl [_] Dilauded [x] Lidocaine with/without Epinephrine Procedure Performed By: Attending Physician: Derick Olivo MD Assisting: Description of Procedure Pre Op Diagnosis: No Chronic Problems B ALL Post Op Diagnosis: No Chronic Problems B ALL Location of Procedure: Radiology Informed Consent Obtained: Yes, Risk/Benefits discussed Monitoring During Procedure: [x] Blood Pressure Monitoring [x] Cardiac Monitoring [x] Continuous Pulse Oximetry [x] Heart Rate [x] Respiratory Rate Prep and Technique: Usual Standard Manner. Expediter Clerk Prep: [x] Cap, [x] Eye protection, [x] Mask, [x] Sterile gloves, [x] Sterile gowns. Patient Prep: [x] Prepped in sterile manner, [x] Prep solution +, [x] Draped in sterile manner. Anesthesia: IV Sedation: [_] Versed = 0mg [_] Fentanyl = 50mcg Local: 1% Lidocaine without Epinephrine Position of Patient: Prone Procedure Findings: Immediate Post Op Note: Image guided LP with administrative office clerk of 12mg methotrexate. No acute complications. 12cc csf sent to lab See radiology report when available for additional details. Complications: none. Condition: Stable Procedure Tolerated: Fair Estimated Blood Lost: Minimal Complications: none Drains: none Specimen: see above Attending Physician Present For: Entire Procedure I personally performed the procedure with JENNIFER Banks and agree with their assessment and plan as documented above. Derick Olivo MD Staff, Vascular/Interventional Radiologist 05/02/2024 Palliative/Supportive Care Consult Note Subjective Chief Complaint Tooth pain This morning, Evelina reports the pureed diet has been helpful, and he is tolerating it. Reports less tooth pain and less pain while swallowing. Reports last bowel movement was yesterday. No other acute concerns. Objective Vitals and Measurements T: 36.8 C TMIN: 36.8 C TMAX: 37.1 C HR: 85 RR: 15 BP: 138/73 SpO2: 99% Physical Exam General: No acute distress, interactive. HENT: Normocephalic, atraumatic. Extensive dental caries, pain in area of upper left incisors/molars. Edema of upper gums. Respiratory: Non-labored breathing, symmetric chest rise. Cardiovascular: Adequate perfusion. Skin: Dry, no rashes noted. Neuro: No focal neuro deficits noted. Psychiatric: Cooperative, in no distress. Normal affect. Lab Results CBC (05/02/24) WBC H 24.93 Hgb L 8.1 Hct L 25.2 MCV 95.1 PLT C 1459 Auto Differential % nRBC 0.4 Absolute nRBC H 0.1 % Neutrophils 54.6 Absolute Neut H 13.60 % Im Granulocyt H 16.20 Absolute Im Gra H 4.04 % Lymphocytes 4.6 % Monocytes 23.8 % Eosinophils 0.1 % Basophils 0.7 Basic Metabolic Panel (04/10/24) Na+ 140 K+ 4.8 Cl- 105 CO2 29 Anion gap 11 GLU 114 BUN 10 Creat L 0.4 Estimated GFR f 158 Estimated GFR f Not calculated Ca 8.7 Hemolysis Index 0 Icteria Index 0 Lipemia Index 0 Assessment/Plan Patient Summary Evelina Do is a 24 year old male with PMH of presumed intellectual disability and recent diagnosis of B-cell ALL admitted from OSH for tooth pain with fever, admitted to [facility] on 8/9/24. Hospital course complicated by neutropenia. Palliative Medicine consulted on 04/30 for pain management. Planning for IT Chemo on 05/02. Diagnoses/rush palliative care issues: Pain secondary to tooth infection Odynophagia Palliative Performance Scale (PPS) Score: 80% Prognosis: Fair Goals of Care: Extension of Life Code Status: Full Code Disposition: Home Recommendations: Tooth pain and odynophagia - Continue MS Contin 15 mg q12h, Dilaudid 1mg IV q3h PRN - Recommend continuing gabapentin 100mg TID to address tooth pain given the significant contribution of nerve pain in this area - Recommend continuing magic mouthwash TID PRN for symptomatic relief - Recommend continuing pureed diet until pain is resolving and can tolerate a regular diet Delirium: - Consider Adult Non-ICU Delirium order set for non-pharmacologic interventions. - treating underlying conditions (infection, pain, FL, etc), avoid sedatives/hypnotics/sleeping pills (benzos, diphenhydramine and other antihistamines, etc) - sensory enhancements (hearing aides, glasses, etc), hydration (preferably po) - avoid restraints, utilize sitter, encourage family presence at bedside/participation in care - write [id number] communication: turn lights on, keep shades open from 7am to 7pm; lights off, close shades from 7pm to 7am (or other hours you deem appropriate). - IF becomes harm to self or others: Day 1: haldol 0.5-1.0 mg PO/IV q30-60 minutes until settled down, up to 4mg maximum per 24 hour period. Day two, give 1/2 dose of needed dosage PO/IV bid (i.e, if 2mg total needed to calm patient, then scheduled dose would be 0.5mg PO/IV bid.) Disposition - For Discharge without hospice care - Recommend follow up Palliative medicine clinic at [facility] following discharge. Psychosocial: - support provided to patient/family by the supportive and palliative care team Thank you for consulting palliative medicine, we will continue to follow. Please call or page with any questions. Please page palliative care attending physician hooker on after hours/on weekend if our team can be of assistance in the care of this patient. This patient was seen by and discussed with our multidisciplinary Palliative Care team. Patient was discussed and examined with attending physician Dr. De Souza. Teaching addendum: Collaboration in the care and medical management of this patient was requested by patient's primary team . I personally saw and evaluated patient on the date of service with author of the note during their evaluation of the patient, discussed the assessment and reviewed their note above. I agree with the documented findings and developed the recommendations of care. We discussed the care of the patient and our recommendations with the primary team. I spent a total time of 60 minutes on this patient encounter which included but is not limited to personally reviewing history and previous encounters within our healthcare system EMR, external records and performing the rush aspects of the exam, reviewing and recommending orders, providing education to the patient/caregiver, collaboration with the primary team, and documentation in the medical record. All occurred on date of service. 05/02/2024 Palliative/Supportive Care Consult Note Subjective Chief Complaint tooth pain patient seen on rounds this morning. no nursing concerns, no concerns from patient. he has a metallic taste in his mouth and is spitting up thick drainage. states that his pain is reasonably controlled on the magic mouthwash and increased gabapentin. has regular diet ordered but states he has difficulty chewing due to the pain. Review of Systems All other ROS negative except as noted in HPI Objective Vitals and Measurements T: 37.4 C TMIN: 36.9 C TMAX: 37.4 C HR: 83 RR: 16 BP: 122/75 SpO2: 96% Physical Exam General: No acute distress. Interactive. HENT: Normocephalic, atraumatic. no LAD. Extensive dental caries, pain in area of upper left incisors/molars. edema of upper gums. Respiratory: Non-labored breathing, symmetric chest rise. Cardiovascular: Adequate perfusion. Skin: Dry, no rashes noted. Neuro: No focal neuro deficits noted. Psychiatric: Cooperative, in no distress. Normal affect. Lab Results CBC (05/01/24) WBC H 21.49 Hgb L 7.5 Hct L 23.7 MCV H 97.1 PLT C 1672 Diagnostic Results Assessment/Plan Patient Summary EVELINA DO is a 24 Year old Male with PMH of presumed intellectual disability and recent diagnosis of B-cell ALL admitted from OSH for tooth pain with fever, admitted to [facility] on 04/26/24. Hospital course complicated by neutropenia. Palliative Medicine consulted on 04/30 for pain management. Diagnoses/rush palliative care issues: Pain secondary to tooth infection Odynophagia Palliative Performance Scale (PPS) Score: 80% Prognosis: Fair Goals of Care: Extension of Life Code Status: Full Code Disposition: Home Recommendations: Tooth pain and odynophagia - Continue MS Contin 15 mg q12h, Dilaudid 1mg IV q3h PRN - Recommend continue gabapentin at 100mg TID to address tooth pain given the significant contribution of nerve pain in this area - Recommend magic mouthwash TID PRN for symptomatic relief. -Recommend pureed diet until pain is resolving and can tolerate a regular diet Delirium: - Consider Adult Non-ICU Delirium order set for non-pharmacologic interventions. - treating underlying conditions (infection, pain, FL, etc), avoid sedatives/hypnotics/sleeping pills (benzos, diphenhydramine and other antihistamines, etc) - sensory enhancements (hearing aides, glasses, etc), hydration (preferably po) - avoid restraints, utilize sitter, encourage family presence at bedside/participation in care - write [id number] communication: turn lights on, keep shades open from 7am to 7pm; lights off, close shades from 7pm to 7am (or other hours you deem appropriate). - IF becomes harm to self or others: Day 1: haldol 0.5-1.0 mg PO/IV q30-60 minutes until settled down, up to 4mg maximum per 24 hour period. Day two, give 1/2 dose of needed dosage PO/IV bid (i.e, if 2mg total needed to calm patient, then scheduled dose would be 0.5mg PO/IV bid.) Disposition - For Discharge without hospice care - Recommend follow up Palliative medicine clinic at [facility] following discharge. Psychosocial: - support provided to patient/family by the supportive and palliative care team Thank you for consulting palliative medicine, we will continue to follow. Please call or page with any questions. Please page palliative care attending physician hooker on after hours/on weekend if our team can be of assistance in the care of this patient. This patient was seen by and discussed with our multidisciplinary Palliative Care team. Patient was discussed and examined with attending physician Dr. De Souza and fellow Dr Leiva. Cody Rogers DO Resident Physician, PGY2 This note was completed with [employer] dictation software/device and [employer] and agencies supervisor errors may have occurred. Infected tooth Leukemia Critical Care Time General Floor Time Teaching addendum: Collaboration in the care and medical management of this patient was requested by patient's primary team . I personally saw and evaluated patient on the date of service with author of the note during their evaluation of the patient, discussed the assessment and reviewed their note above. I agree with the documented findings and developed the recommendations of care. We discussed the care of the patient and our recommendations with the primary team. I spent a total time of 60 minutes on this patient encounter which included but is not limited to personally reviewing history and previous encounters within our healthcare system EMR, external records and performing the rush aspects of the exam, reviewing and recommending orders, providing education to the patient/caregiver, collaboration with the primary team, and documentation in the medical record. All occurred on date of service. 05/01/2024 Hem Oncology IM Consult Note Subjective Mr. Do was seen resting in bed, he has had no pain and his jaw swelling has subsided. Vital signs are stable. He will start HyperCVAD 2A tomorrow Review of Systems Negative except as stated in the HPI Objective Vitals and Measurements T: 37 C TMIN: 36.9 C TMAX: 37.1 C HR: 96 RR: 16 BP: 114/74 SpO2: 97% Physical Exam General: Alert and oriented. No distress. Eye: EOMI. Normal conjunctiva. HEENT: Normal hearing. Moist oral mucosa. No lymphadenopathy. Pain and swelling in the right perioral cavity Cardiovascular: Regular rate and rhythm. Radial pulse palpable. Pulmonary: Clear to auscultation bilaterally. Normal effort. Abdomen: Soft. Nontender. Musculoskeletal: No lower extremity edema. Nontender. Skin: Warm and dry. Neuro: No focal deficits. Normal gait. Psychiatric: Cooperative. Appropriate affect. Lab Results Test Name Test Result Date/Time WBC 21.49 x10(9)/L (High) 05/01/2024 03:42 CDT HGB 7.5 g/dL (Low) 05/01/2024 03:42 CDT HCT 23.7 % (Low) 05/01/2024 03:42 CDT MCV 97.1 fL (High) 05/01/2024 03:42 CDT PLT 1672 x10(9)/L (Critical) 05/01/2024 03:42 CDT Absolute Neutrophils Manual 12.25 x10(9)/L (High) 05/01/2024 03:42 CDT Sodium 145 mmol/L 05/01/2024 03:42 CDT Potassium 3.7 mmol/L 05/01/2024 03:42 CDT Chloride 109 mmol/L (High) 05/01/2024 03:42 CDT CO2 27 mmol/L 05/01/2024 03:42 CDT Glucose Lvl 103 mg/dL 05/01/2024 03:42 CDT BUN <5 mg/dL (Low) 05/01/2024 03:42 CDT Creatinine, standardized 0.6 mg/dL (Low) 05/01/2024 03:42 CDT Calcium 9.2 mg/dL 05/01/2024 03:42 CDT Phosphorus 4.8 mg/dL 05/01/2024 03:42 CDT Albumin 3.0 g/dL (Low) 05/01/2024 03:42 CDT Assessment/Plan Mr. Do is a 24-year-old male patient of Dr. Freedman with a medical history significant for a presumed intellectual disability and recently diagnosed B cell ALL which was diagnosed in 02/2024. He underwent a BM biopsy on 03/15/24 which was consistent with a diagnosis of B ALL with 90 % blasts. Patient received HyperCVAD cycle 1A and 1B inpatient cycle 1B finishing on 04/16/24. He was admitted on 04/26/24 for a febrile illness suspected to be secondary to a dental infection, he was originally due for Cycle 2A on 04/29/24, we will now plan initiation tomorrow on 05/02/24 Sepsis due to Dental infection - Fevers with pain and swelling of the right jaw - Blood cultures obtained on 04/25 at hospital in [place], positive in / bottle, speciation pending. Blood cultures negative from 04/29/24 - Initiated on meropenem at OSH, continue Zosyn for now to complete 7 day course - Maxillofacial fluid with no abscess on drainable fluid collection - Will eventually need dental follow up outpatient, oral maxillofacial surgery not available at in case drainage is needed Oncologic history and Hematological workup - Initial labs were significant for WBC count 69.4 K, hemoglobin of 5 g/dl, platelet of 58 K, mildly prolonged PT, normal PTT, and fibrinogen levels. Additionally, the patient had hyperuricemia and hyperglycemia. No evidence of TLS. - Peripheral blood smear showed atypical mononuclear cells, most probably blasts, with no signs of Nancy rods. 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 - Echocardiogram on 03/13/2024 showed left ventricular systolic function is hyperdynamic, with an ejection fraction >70%. Left ventricular diastolic function is normal. - Hepatitis panel is negative. HIV testing is negative. - MRI of the brain is negative for features indicative of TOWER EQUIPMENT INSTALLER involvement or acute intracranial abnormalities. - Scrotal ultrasound showed normal scrotum and testes with no evidence of testicular involvement - Chemotherapy education for Hyper-CVAD and consent were completed on 03/14/24 - Bone marrow biopsy by IR on 03/15/2024 showed B-ALL, NGS showed TCF3-PBX1 fusion and an NSD2 (WHSC1 or MMSET) [id number] alteration (VAF 32.32%). 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 However, patient was unable to provide the sample. I personally discussed this with Shena Costello, who is patient's sister and DPOA she agreed to proceed with treatment. - Cycle 1A Day 1 of hyper-CVAD (Part A) on 03/15/2024, Cycle 1 B on 04/08/2024, Received IT chemotherapy on 04/15/24, SC filgrastim on 04/13/2024 and rituximab on 04/16/2024 - Bone marrow biopsy done on 04/04/2024 before Cycle 1B; MRD negative, awaiting for clonal seq. B-cell acute lymphoblastic leukemia - Plan for tentative start of Day 1 of Cycle 2A due on 05/02/2024. - Daily CBC, CMP, and TLS labs (uric acid, phosphorus level, and LDH) - Daily DIC panel (fibrinogen levels, PT/INR, PTT) - Provide supportive transfusions to keep hemoglobin above 7 g/dL and platelet count above 10 K - Recommend using cryoprecipitate 10 units if fibrinogen is less than 150, with a goal to keep fibrinogen above 150 - Strictly use irradiated blood products - Avoid using Tylenol and NSAIDs for pain control. - Will eventually prefer to have a [place] reservoir but will wait for improved control of infectious process and after it is ensured that the patient is not bacteremic. - Normal scrotal and bilateral lower extremity ultrasound - Skin care team on board. Chemotherapy regimen (Tentative plan for this week once we know infection is better controlled and patient is not bacteremic) Hyper-CVAD Chemotherapy, Part A, alternating with high dose MTX and cytarabine - Cyclophosphamide (Cytoxan) 300 mg/m2 IV over 2 hours every 12 hours on days 1 to 3: - Vincristine (Oncovin) 2 mg IV once per day on days 4 and 11 - Doxorubicin (Adriamycin) 50 mg/m2 IV continuous infusion over 24 hours, started on day 4 - Dexamethasone (Decadron) 40 mg IV or PO once per day on days 1 to 4, 11 to 14 - Rituximab 375 mg/m2, will plan for day 11 along with vincristine. Supportive medications - Mesna (Mesnex) 600 mg/m2/day IV continuous infusion over 72 hours, started on day 1, starting 1 hour before Cyclophosphamide (Cytoxan) and completed 12 hours after the last dose of Cyclophosphamide (Cytoxan) - Filgrastim (Neupogen) 5 mcg/kg SC once per day, starting 24 hours after completion of intensive courses of chemotherapy (day 5 for part A, day 4 for part B), given until ANC greater than 1000/uL VS outpatient Neulasta. 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 Will plan for inpatient with IR. Antibiotic prophylaxis: - Acyclovir 400 mg PO BID ​While on treatment - Levaquin 500 mg PO daily while on treatment - Fluconazole 200 mg PO daily while on treatment - Bactrim DS PO MWF while on treatment Thrombocytosis - Likely reactive from his infection and recovery from chemotherapy - Continue to monitor for now Anemia - 7.5 today, MCV 97. Stable without the need for transfusions currently - Likely secondary to chemotherapy and leukemia - Transfuse for <7 Intellectual disability Autism - PT/OT consult - Case management consult - Outpatient case management/care coordination The patient was seen and staffed with Dr. Tano Badillo MD PGY 4 Hematology Oncology fellow [facility] I personally saw and evaluated the patient on 05/01/[address] Badillo. I independently performed rush portions of history, physical, evaluation and management and discussed the management with the fellow. Overall doing much better. No lower extremity edema or shortness of breath. No difficulty with abdominal pain. Discussed regarding possible transfer of care to [place] as it would be closer for patient and sister. I reviewed history and labs and assessment and plan and reviewed the fellow&rsquo;s note and it&rsquo;s content. 05/01/2024 Hem Oncology IM Consult Note Subjective Mr. Do was seen resting in bed today, he is feeling better with pain and swelling in his mouth. He has not had fevers for the last 72 hours. Review of Systems Negative except as stated in the HPI Objective Vitals and Measurements T: 36.9 C TMIN: 36.7 C TMAX: 37.1 C HR: 80 RR: 16 BP: 121/76 SpO2: 100% Physical Exam General: Alert and oriented. No distress. Eye: EOMI. Normal conjunctiva. HEENT: Normal hearing. Moist oral mucosa. No lymphadenopathy. Pain and swelling in the right perioral cavity Cardiovascular: Regular rate and rhythm. Radial pulse palpable. Pulmonary: Clear to auscultation bilaterally. Normal effort. Abdomen: Soft. Nontender. Musculoskeletal: No lower extremity edema. Nontender. Skin: Warm and dry. Neuro: No focal deficits. Normal gait. Psychiatric: Cooperative. Appropriate affect. Lab Results Test Name Test Result Date/Time WBC 20.74 x10(9)/L (High) 04/30/2024 04:10 CDT HGB 7.7 g/dL (Low) 04/30/2024 04:10 CDT HCT 24.0 % (Low) 04/30/2024 04:10 CDT MCV 96.0 fL (High) 04/30/2024 04:10 CDT PLT 1766 x10(9)/L (Critical) 04/30/2024 04:10 CDT Neuts Manual 48.0 % 04/30/2024 04:10 CDT Bands Manual 3.0 % 04/30/2024 04:10 CDT Metamyelocytes Manual 6.0 % 04/30/2024 04:10 CDT Abs Metamyelocytes Manual 1.24 x10(9)/L (High) 04/30/2024 04:10 CDT Myelocytes Manual 2.0 % 04/30/2024 04:10 CDT Sodium 144 mmol/L 04/30/2024 04:10 CDT Potassium 3.3 mmol/L (Low) 04/30/2024 04:10 CDT Chloride 110 mmol/L (High) 04/30/2024 04:10 CDT CO2 27 mmol/L 04/30/2024 04:10 CDT Glucose Lvl 102 mg/dL 04/30/2024 04:10 CDT BUN <5 mg/dL (Low) 04/30/2024 04:10 CDT Creatinine, standardized 0.6 mg/dL (Low) 04/30/2024 04:10 CDT Calcium 8.9 mg/dL 04/30/2024 04:10 CDT Phosphorus 4.8 mg/dL 04/30/2024 04:10 CDT Total Protein 5.5 g/dL (Low) 04/30/2024 04:10 CDT Albumin 2.9 g/dL (Low) 04/30/2024 04:10 CDT Albumin 2.9 g/dL (Low) 04/30/2024 04:10 CDT T Bili 0.27 mg/dL (Low) 04/30/2024 04:10 CDT Direct Bilirubin 0.1 mg/dL 04/30/2024 04:10 CDT Alkaline Phosphatase 152 U/L (High) 04/30/2024 04:10 CDT AST-SGOT 14 U/L 04/30/2024 04:10 CDT ALT-SGPT 14 U/L 04/30/2024 04:10 CDT Assessment/Plan Mr. Do is a 24-year-old male patient of Dr. Nation with a medical history significant for a presumed intellectual disability and recently diagnosed B cell ALL which was diagnosed in 02/2024. He underwent a BM biopsy on 03/15/24 which was consistent with a diagnosis of B ALL with 90 % blasts. Patient received HyperCVAD cycle 1A and 1B inpatient cycle 1B finishing on 04/16/24. He was admitted on 04/26/24 for a febrile illness suspected to be secondary to a dental infection, he was originally due for Cycle 2A on 04/29/24, we will now plan initiation on 05/02/24 Sepsis due to Dental infection - Fevers with pain and swelling of the right jaw - Blood cultures obtained on 04/25 at hospital in [place], positive in / bottle, speciation pending - Initiated on meropenem at OSH, continue Zosyn for now - Follow culture results, ensure that the patient is not bacteremic. Repeat cultures obtained on 04/29/24 - Maxillofacial fluid with no abscess on drainable fluid collection - Will eventually need dental follow up outpatient, oral maxillofacial surgery not available at in case drainage is needed Oncologic history and Hematological workup - Initial labs were significant for WBC count 69.4 K, hemoglobin of 5 g/dl, platelet of 58 K, mildly prolonged PT, normal PTT, and fibrinogen levels. Additionally, the patient had hyperuricemia and hyperglycemia. No evidence of TLS. - Peripheral blood smear showed atypical mononuclear cells, most probably blasts, with no signs of Nancy rods. 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 - Echocardiogram on 03/13/2024 showed left ventricular systolic function is hyperdynamic, with an ejection fraction >70%. Left ventricular diastolic function is normal. - Hepatitis panel is negative. HIV testing is negative. - MRI of the brain is negative for features indicative of TOWER EQUIPMENT INSTALLER involvement or acute intracranial abnormalities. - Scrotal ultrasound showed normal scrotum and testes with no evidence of testicular involvement - Chemotherapy education for Hyper-CVAD and consent were completed on 03/14/24 - Bone marrow biopsy by IR on 03/15/2024 showed B-ALL, NGS showed TCF3-PBX1 fusion and an NSD2 (WHSC1 or MMSET) [id number] alteration (VAF 32.32%). 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 However, patient was unable to provide the sample. I personally discussed this with Shena Costello, who is patient's sister and DPOA she agreed to proceed with treatment. - Cycle 1A Day 1 of hyper-CVAD (Part A) on 03/15/2024, Cycle 1 B on 04/08/2024, Received IT chemotherapy on 04/15/24, SC filgrastim on 04/13/2024 and rituximab on 04/16/2024 - Bone marrow biopsy done on 04/04/2024 before Cycle 1B; MRD negative, awaiting for clonal seq. B-cell acute lymphoblastic leukemia - Plan for tentative start of Day 1 of Cycle 2A due on 05/02/2024. - Daily CBC, CMP, and TLS labs (uric acid, phosphorus level, and LDH) - Daily DIC panel (fibrinogen levels, PT/INR, PTT) - Provide supportive transfusions to keep hemoglobin above 7 g/dL and platelet count above 10 K - Recommend using cryoprecipitate 10 units if fibrinogen is less than 150, with a goal to keep fibrinogen above 150 - Strictly use irradiated blood products - Avoid using Tylenol and NSAIDs for pain control. - Will eventually prefer to have a [place] reservoir but will wait for improved control of infectious process and after it is ensured that the patient is not bacteremic. - Normal scrotal and bilateral lower extremity ultrasound - Skin care team on board. Chemotherapy regimen (Tentative plan for this week once we know infection is better controlled and patient is not bacteremic) Hyper-CVAD Chemotherapy, Part A, alternating with high dose MTX and cytarabine - Cyclophosphamide (Cytoxan) 300 mg/m2 IV over 2 hours every 12 hours on days 1 to 3: - Vincristine (Oncovin) 2 mg IV once per day on days 4 and 11 - Doxorubicin (Adriamycin) 50 mg/m2 IV continuous infusion over 24 hours, started on day 4 - Dexamethasone (Decadron) 40 mg IV or PO once per day on days 1 to 4, 11 to 14 - Rituximab 375 mg/m2, will plan for day 11 along with vincristine. Supportive medications - Mesna (Mesnex) 600 mg/m2/day IV continuous infusion over 72 hours, started on day 1, starting 1 hour before Cyclophosphamide (Cytoxan) and completed 12 hours after the last dose of Cyclophosphamide (Cytoxan) ​ - Filgrastim (Neupogen) 5 mcg/kg SC once per day, starting 24 hours after completion of intensive courses of chemotherapy (day 5 for part A, day 4 for part B), given until ANC greater than 1000/uL VS outpatient Neulasta. 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 Will plan for inpatient with IR. Antibiotic prophylaxis: - Acyclovir 400 mg PO BID While on treatment - Levaquin 500 mg PO daily while on treatment - Fluconazole 200 mg PO daily while on treatment - Bactrim DS PO MWF while on treatment Intellectual disability Autism - PT/OT consult - Case management consult - Outpatient case management/care coordination The patient was seen and staffed with Dr. Tano Badillo MD PGY 4 Hematology Oncology fellow [facility] I personally saw and evaluated the patient on 04/30/[address] Badillo. I independently performed rush portions of history, physical, evaluation and management and discussed the management with the fellow. At this time states oral pain with mild improvement. He does have significant thrombocytosis, which is likely reactive. Anemia is stable at hemoglobin 7.5 . I reviewed history and labs and assessment and plan and reviewed the fellow&rsquo;s note and it&rsquo;s content. 04/30/2024 Palliative/Supportive Care Consult Note Chief Complaint Tooth pain Reason for Consultation Pain management Requesting Provider Dr. Dario Madsen History of Present Illness Evelina Do is a 24 year old male with PMH of presumed intellectual disability and recent diagnosis of B-cell ALL admitted from OSH for tooth pain with fever, palliative care consulted for pain management. Recent admission at from [facility] 03/14-04/18. Sister is DPOA as he has been determined not to have [facility] by psychiatry. On hyper-CVAD with IT chemo, planning for cycle 2 this week. Had neutropenia on admission. Was started on meropenam before being transferred to , currently on Vanc and Zosyn. Mr. Do reports at home he has taken oxycodone and Tylenol (1,000 mg three times per day) to control his pain. He has not been able to eat much due to pain with chewing/swallowing related to his toothache. On current inpatient pain regimen (MS Contin 15 mg q12h, Dilaudid 1mg IV q3h PRN), he says his pain is only controlled for 35 minutes after receiving Dilaudid. Denies nausea. Reports last BM was on 04/25 but attributes this to being unable to eat and not to constipation. Physical Exam Vitals and Measurements T: 36.7 C TMIN: 36.7 C TMAX: 37.1 ?C HR: 92 RR: 16 BP: 112/69 SpO2: 98% General: No acute distress. Interactive. HENT: Normocephalic, atraumatic. Extensive dental caries, pain in area of upper left incisors/molars. Respiratory: Non-labored breathing, symmetric chest rise. Cardiovascular: Adequate perfusion. Gastrointestinal: No masses noted. Skin: Dry, no rashes noted. Neuro: No focal neuro deficits noted. Psychiatric: Cooperative, in no distress. Normal affect. Assessment/Plan EVELINA DO is a 24 Year old Male with PMH of presumed intellectual disability and recent diagnosis of B-cell ALL admitted from OSH for tooth pain with fever, admitted to [facility] on 04/26/24. Hospital course complicated by neutropenia. Palliative Medicine consulted on 04/30 for pain management. Diagnoses/rush palliative care issues: Pain secondary to tooth infection Odynophagia Palliative Performance Scale (PPS) Score: 80% Prognosis: Fair Goals of Care: Extension of Life Code Status: Full Code Disposition: Home Recommendations: Tooth pain and odynophagia - Continue MS Contin 15 mg q12h, Dilaudid 1mg IV q3h PRN - Recommend increasing gabapentin to 100mg TID to address tooth pain given the significant contribution of nerve pain in this area - Recommend magic mouthwash TID PRN for symptomatic relief. Delirium: - Consider Adult Non-ICU Delirium order set for non-pharmacologic interventions. - treating underlying conditions (infection, pain, FL, etc), avoid sedatives/hypnotics/sleeping pills (benzos, diphenhydramine and other antihistamines, etc) - sensory enhancements (hearing aides, glasses, etc), hydration (preferably po) - avoid restraints, utilize sitter, encourage family presence at bedside/participation in care - write [id number] communication: turn lights on, keep shades open from 7am to 7pm; lights off, close shades from 7pm to 7am (or other hours you deem appropriate). - IF becomes harm to self or others: Day 1: haldol 0.5-1.0 mg PO/IV q30-60 minutes until settled down, up to 4mg maximum per 24 hour period. Day two, give 1/2 dose of needed dosage PO/IV bid (i.e, if 2mg total needed to calm patient, then scheduled dose would be 0.5mg PO/IV bid.) Disposition - For Discharge without hospice care - Recommend follow up Palliative medicine clinic at [facility] following discharge. Psychosocial: - support provided to patient/family by the supportive and palliative care team Thank you for consulting palliative medicine, we will continue to follow. Please call or page with any questions. Please page palliative care attending physician hooker on after hours/on weekend if our team can be of assistance in the care of this patient. This patient was seen by and discussed with our multidisciplinary Palliative Care team. Patient was discussed and examined with attending physician Dr. Easley Attestation by Taurus Leiva MD on April 30, 2024 14:53 I have verified the student note and corrections have been made as necessary. I agree with the contents of this note. I independently performed a physical exam and the medical decision-making portion of this service. Attestation by Kaushal BRISCOE, Vick Melendez on April 30, 2024 15:48 I personally saw and evaluated patient on the date of service and participated in the evaluation and management along with the resident and reviewed their note as above. I personally reviewed the above noted lab, radiology report, diagnostic study report on the date of service. I agree with the above documented findings and recommendations with the following additions: Medications Inpatient acyclovir, 400 mg= 2 capsule(s), Oral, bid Dilaudid Inj, 1 mg= 1 mL, Slow IV Push, q3h, PRN enoxaparin, 40 mg= 0.4 mL, Subcutaneous, At Bedtime gabapentin, 100 mg= 1 capsule(s), Oral, bid melatonin 3 mg oral tablet, 3 mg= 1 Tablet(s), Oral, At Bedtime, PRN MiraLax, 17 g= 1 Packet, Oral, Daily MS Contin, 15 mg= 1 Tablet(s), Oral, q12h potassium chloride, 40 mEq= 2 Tablet(s), Oral, bid senna (sennosides) 8.6 mg oral tablet, 8.6 mg= 1 Tablet(s), Oral, bid sodium bicarbonate 650 mg oral tablet, 650 mg= 1 Tablet(s), Oral, bid tiZANidine, 4 mg= 1 Tablet(s), Oral, q6h, PRN vancomycin, 1.5 g= 500 mL, IVPB, q12h VANCOMYCIN IV - PHARMACY TO DOSE, 1 Each, Message, As Indicated, PRN Zosyn Home acetaminophen 500 mg oral tablet, 1000 mg= 2 Tablet(s), Oral, q6h, PRN Acidophilus Probiotic Blend oral capsule, 1 capsule(s), Oral, Daily acyclovir 200 mg oral capsule, 400 mg= 2 capsule(s), Oral, bid cefdinir 300 mg oral capsule, 300 mg= 1 capsule(s), Oral, q12h gabapentin 100 mg oral capsule, 100 mg= 1 capsule(s), Oral, bid ibuprofen 200 mg oral tablet, 400 mg= 2 Tablet(s), Oral, q6h, PRN MiraLax oral powder for reconstitution, 17 g, Oral, Daily morphine 15 mg/8 to 12 hr oral tablet, extended release, 15 mg= 1 Tablet(s), Oral, q12h senna (sennosides) 8.6 mg oral tablet, 8.6 mg= 1 Tablet(s), Oral, bid sodium bicarbonate 650 mg oral tablet, 650 mg= 1 Tablet(s), Oral, bid Allergies NKA Social History Smoking Status Former smoker quit within 12 months Immunizations Lab Results CBC (04/30/24) WBC H 20.74 Hgb L 7.7 Hct L 24.0 MCV H 96.0 PLT C 1766 Comprehensive Metabolic Panel (04/29/24) Na+ 141 K+ L 3.4 Cl- 107 CO2 25 Anion gap 12 GLU 101 BUN L <5 Creat L 0.6 Estimated GFR f 138 Estimated GFR f Not calculated Ca 8.6 Alk Phos H 167 AST 15 ALT 16 T Bili L 0.24 Total Protein L 5.4 Alb L 2.9 Hemolysis Index 0 Icteria Index 0 Lipemia Index 0 Diagnostic Results (04/28/2024 21:[address] Facial Bones) FINDINGS: Orbital cavities: Orbits are normal. Globes are unremarkable. Paranasal sinuses: Small amount of mucosal thickening within the base of the right greater than left maxillary sinuses. No air-fluid levels. Teeth: Periodontal disease including multifocal dental caries. There are periapical lucencies surrounding the roots of the maxillary molars and the left maxillary lateral incisor. The left maxillary mandibular root periapical lucencies may contribute to the paranasal sinus disease. No fluid collections/abscess. Bones: No acute fracture. Soft tissues: Unremarkable. IMPRESSION: Extensive dental caries with maxillary molar periapical lucencies potentially contributing to mild left maxillary sinus disease. No acute abnormality or visualized soft tissue fluid collection. [1] [1] CT Facial Bones; Nghia Phillips MD 04/28/2024 21:22 CDT 04/30/2024 Pharmacy Consult Note Pharmacy Dosing Se rvice Note - Vancomycin Dosing Findings Patient is a/an 24 Year(s) Old Male with dosing weight of 68.5 kg. Vancomycin treatment per protocol for sepsis. Current regimen is vancomycin 1500mg IV q12h. Therapy is being monitored with Trough monitoring and goal of Other: 10-15 mcg/mL. Trough-based monitoring selected because Patient with poor model fit. Date Vancomycin Doses Drug Levels (mg/L) WBC SCr (mg/dL) BUN (mg/dL) 04/30/2024 1.5 g, 500 mL, 08:42 Vancomycin Trough: 12.9 mcg/mL, 08:47 20.74 x10(9)/L 0.6 <5 04/29/2024 1.5 g, 500 mL, 08:44 1.5 g, 500 mL, 20:50 17.63 x10(9)/L 0.6 <5 04/28/2024 1.25 g, 250 mL, 05:02 1.5 g, 500 mL, 21:30 Vancomycin Trough: 8.9 mcg/mL, 04:20 18.81 x10(9)/L 0.6 <5 04/27/2024 1.25 g, 250 mL, 04:56 1.25 g, 250 mL, 17:06 13.14 x10(9)/L 0.6 6 04/26/2024 1.75 g, 500 mL, 20:37 6.84 x10(9)/L 0.6 7 Micro: blood cultures- NGTD Assessment Renal function appears stable at baseline. Trough level drawn appropriately.. Trough level is within goal. -12.9 Plan Based on the findings, plan to continue vancomycin 1500 mg every 12 hours. Pharmacy will continue to monitor and will repeat levels in 5-7 days or sooner if clinically indicated based on indication, renal function, UOP, or SCr changes. 04/30/2024 Hem Oncology IM Consult Note Subjective Mr. Do was seen resting in bed, swelling in his maxillofacial region is better, his pain has improved. No fevers over 48 hours. Review of Systems Negative except as stated in the HPI Objective Vitals and Measurements T: 36.9 C TMIN: 36.6 C TMAX: 37.0 C HR: 91 RR: 16 BP: 124/77 SpO2: 100% Physical Exam General: Alert and oriented. No distress. Eye: EOMI. Normal conjunctiva. HEENT: Normal hearing. Moist oral mucosa. No lymphadenopathy. Pain and swelling in the right perioral cavity Cardiovascular: Regular rate and rhythm. Radial pulse palpable. Pulmonary: Clear to auscultation bilaterally. Normal effort. Abdomen: Soft. Nontender. Musculoskeletal: No lower extremity edema. Nontender. Skin: Warm and dry. Neuro: No focal deficits. Normal gait. Psychiatric: Cooperative. Appropriate affect. Lab Results Test Name Test Result Date/Time WBC 17.63 x10(9)/L (High) 04/29/2024 02:20 CDT HGB 7.2 g/dL (Low) 04/29/2024 02:20 CDT HCT 22.1 % (Low) 04/29/2024 02:20 CDT MCV 93.6 fL 04/29/2024 02:20 CDT PLT 1674 x10(9)/L (Critical) 04/29/2024 02:20 CDT Sodium 141 mmol/L 04/29/2024 02:20 CDT Potassium 3.4 mmol/L (Low) 04/29/2024 02:20 CDT Chloride 107 mmol/L 04/29/2024 02:20 CDT CO2 25 mmol/L 04/29/2024 02:20 CDT Glucose Lvl 101 mg/dL 04/29/2024 02:20 CDT BUN <5 mg/dL (Low) 04/29/2024 02:20 CDT Creatinine, standardized 0.6 mg/dL (Low) 04/29/2024 02:20 CDT Calcium 8.6 mg/dL 04/29/2024 02:20 CDT Total Protein 5.4 g/dL (Low) 04/29/2024 02:20 CDT Albumin 2.9 g/dL (Low) 04/29/2024 02:20 CDT T Bili 0.24 mg/dL (Low) 04/29/2024 02:20 CDT Alkaline Phosphatase 167 U/L (High) 04/29/2024 02:20 CDT AST-SGOT 15 U/L 04/29/2024 02:20 CDT ALT-SGPT 16 U/L 04/29/2024 02:20 CDT Assessment/Plan Mr. Do is a 24-year-old male patient of Dr. Nation with a medical history significant for a presumed intellectual disability and recently diagnosed B cell ALL which was diagnosed in 02/2024. He underwent a BM biopsy on 03/15/24 which was consistent with a diagnosis of B ALL with 90 % blasts. Patient received HyperCVAD cycle 1A and 1B inpatient cycle 1B finishing on 04/16/24. He was admitted on 04/26/24 for a febrile illness suspected to be secondary to a dental infection, he was originally due for Cycle 2A on 04/29/24, we might postpone pending recovery from his infection. Sepsis due to Dental infection - Fevers with pain and swelling of the right jaw - Blood cultures obtained on 04/25 at hospital in [place], positive in 09/21 bottle, speciation pending - Initiated on meropenem at OSH, continue Zosyn for now - Follow culture results, delay next cycle until we ensure that the patient is not bacteremic. Repeat cultures obtained on 04/29/24 - Maxillofacial fluid with no abscess on drainble fluid collection - Will eventually need dental follow up outpatient, oral maxillofacial surgery not available at in case drainage is needed Oncologic history and Hematological workup - Initial labs were significant for WBC count 69.4 K, hemoglobin of 5 g/dl, platelet of 58 K, mildly prolonged PT, normal PTT, and fibrinogen levels. Additionally, the patient had hyperuricemia and hyperglycemia. No evidence of TLS. - Peripheral blood smear showed atypical mononuclear cells, most probably blasts, with no signs of Nancy rods. 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 - Echocardiogram on 03/13/2024 showed left ventricular systolic function is hyperdynamic, with an ejection fraction >70%. Left ventricular diastolic function is normal. - Hepatitis panel is negative. HIV testing is negative. - MRI of the brain is negative for features indicative of TOWER EQUIPMENT INSTALLER involvement or acute intracranial abnormalities. - Scrotal ultrasound showed normal scrotum and testes with no evidence of testicular involvement - Chemotherapy education for Hyper-CVAD and consent were completed on 03/14/24 - Bone marrow biopsy by IR on 03/15/2024 showed B-ALL, NGS showed TCF3-PBX1 fusion and an NSD2 (WHSC1 or MMSET) [id number] alteration (VAF 32.32%). 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 However, patient was unable to provide the sample. I personally discussed this with Shena Costello, who is patient's sister and DPOA she agreed to proceed with treatment. - Cycle 1A Day 1 of hyper-CVAD (Part A) on 03/15/2024, Cycle 1 B on 04/08/2024, Received IT chemotherapy on 04/15/24, SC filgrastim on 04/13/2024 and rituximab on 04/16/2024 - Bone marrow biopsy done on 04/04/2024 before Cycle 1B; MRD negative, awaiting for clonal seq. B-cell acute lymphoblastic leukemia - Plan for tentative start of Day 1 of Cycle 2A due on 04/30/2024. Will attempt to ensure that the patient is not bacteremic. - Daily CBC, CMP, and TLS labs (uric acid, phosphorus level, and LDH) - Daily DIC panel (fibrinogen levels, PT/INR, PTT) - Provide supportive transfusions to keep hemoglobin above 7 g/dL and platelet count above 10 K - Recommend using cryoprecipitate 10 units if fibrinogen is less than 150, with a goal to keep fibrinogen above 150 - Strictly use irradiated blood products - Avoid using Tylenol and NSAIDs for pain control. - Will eventually prefer to have a [place] reservoir but will wait for improved control of infectious process and after it is ensured that the patient is not bacteremic. - Normal scrotal and bilateral lower extremity ultrasound - Skin care team on board. Chemotherapy regimen (Tentative plan for this week once we know infection is better controlled and patient is not bacteremic) Hyper-CVAD Chemotherapy, Part A, alternating with high dose MTX and cytarabine - Cyclophosphamide (Cytoxan) 300 mg/m2 IV over 2 hours every 12 hours on days 1 to 3: - Vincristine (Oncovin) 2 mg IV once per day on days 4 and 11 - Doxorubicin (Adriamycin) 50 mg/m2 IV continuous infusion over 24 hours, started on day 4 - Dexamethasone (Decadron) 40 mg IV or PO once per day on days 1 to 4, 11 to 14 - Rituximab 375 mg/m2, will plan for day 11 along with vincristine. Supportive medications - Mesna (Mesnex) 600 mg/m2/day IV continuous infusion over 72 hours, started on day 1, starting 1 hour before Cyclophosphamide (Cytoxan) and completed 12 hours after the last dose of Cyclophosphamide (Cytoxan) - Filgrastim (Neupogen) 5 mcg/kg SC once per day, starting 24 hours after completion of intensive courses of chemotherapy (day 5 for part A, day 4 for part B), given until ANC greater than 1000/uL VS outpatient Neulasta. 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 Will plan for inpatient with IR. Antibiotic prophylaxis: - Acyclovir 400 mg PO BID While on treatment - Levaquin 500 mg PO daily ​while on treatment - Fluconazole 200 mg PO daily while on treatment - Bactrim DS PO MWF while on treatment Intellectual disability Autism - PT/OT consult - Case management consult - Outpatient case management/care coordination The patient was seen and staffed with Dr. York. Luis Badillo MD PGY 4 Hematology Oncology [facility] spent a total time of 30 minutes on this patient encounter which included but was not limited to personally reviewing history, previous encounters within our healthcare system when available, external records when appropriate, performing the rush aspects of the exam, reviewing orders, providing education to the patient/caregiver, and documentation in the medical record. This excludes any procedure time that may have been performed. All occurred on date of service. I discussed the patient's management with the fellow Dr Badillo. I reviewed the note by the fellow and agree with those documented findings and plan of care. The patient was seen on 04/29/2024 . 04/29/2024 Hem Oncology IM Consult Note Chief Compl aint Subjective Patient seen and examined at bedside this morning. He continues to have left-sided jaw pain and difficulty with mastication. Denies having any fevers, chills or night sweats Review of Systems A 14 point review of systems was obtained and pertinent negatives and positives are noted in the HPI. Physical Exam Vital Signs and Measurements This Visit - Last 24 Hours HR: 97 RR: 16 BP: 114/66 SpO2: 99% HT: 196 cm WT: 70.0 kg BMI: 17.8 General: Alert and oriented. No distress. Eye: EOMI. Normal conjunctiva. Cardiovascular: Regular rate and rhythm. Radial pulse palpable. Pulmonary: Clear to auscultation bilaterally. Normal effort. Abdomen: Soft. Nontender. Musculoskeletal: No lower extremity edema. Nontender. Skin: Warm and dry. Neuro: No focal deficits. Normal gait. Psychiatric: Cooperative. Appropriate affect. Performance Scales and Status Performance Scales and Status No qualifying data available. Assessment/Plan 24-year-old male patient of Dr. Nation with a medical history significant for a presumed intellectual disability and recently diagnosed B cell ALL which was diagnosed in 02/2024. He underwent a BM biopsy on 03/15/24 which was consistent with a diagnosis of B ALL with 90 % blasts. Patient received HyperCVAD cycle 1A and 1B inpatient cycle 1B finishing on 04/16/24. He was admitted on 04/26/24 for a febrile illness suspected to be secondary to a dental abscess, he was originally due for Cycle 2A on 04/29/24, we might postpone pending recovery from his infection. #Concern for dental abscess: Patient is currently admitted for febrile illness suspected to be related to dental abscess. -- Blood cultures obtained on 04.25 at [facility] -- Initiated on meropenem at OSH, currently on vancomycin and Zosyn. -- Recommend obtaining Maxillofacial CT to assess the extent of his dental infection and that may also help us in deciding on the tentative timeline for starting next cycle of chemotherapy. #B-cell acute lymphoblastic leukemia: Oncologic history and Hematological workup - Initial labs were significant for WBC count 69.4 K, hemoglobin of 5 g/dl, platelet of 58 K, mildly prolonged PT, normal PTT, and fibrinogen levels. Additionally, the patient had hyperuricemia and hyperglycemia. No evidence of TLS. - Peripheral blood smear showed atypical mononuclear cells, most probably blasts, with no signs of Nancy rods. 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 - MRI of the brain is negative for features indicative of TOWER EQUIPMENT INSTALLER involvement or acute intracranial abnormalities. - Scrotal ultrasound showed normal scrotum and testes with no evidence of testicular involvement - Chemotherapy education for Hyper-CVAD and consent were completed on 03/14/24 - Bone marrow biopsy by IR on 03/15/2024 showed B-ALL, NGS showed TCF3-PBX1 fusion and an NSD2 (WHSC1 or MMSET) [id number] alteration (VAF 32.32%). 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 However, patient was unable to provide the sample. I personally discussed this with Shena Costello, who is patient's sister and DPOA she agreed to proceed with treatment. - Cycle 1A Day 1 of hyper-CVAD (Part A) on 03/15/2024, Cycle 1 B on 04/08/2024, Received IT chemotherapy on 04/15/24, SC filgrastim on 04/13/2024 and rituximab on 04/16/2024 - Bone marrow biopsy done on 04/04/2024 before Cycle 1B; MRD negative, awaiting for clonal seq. - Plan for tentative start of Day 1 of Cycle 2A due on 04/30/2024. Will attempt to ensure that the patient is not bacteremic. - Daily CBC, CMP, and TLS labs (uric acid, phosphorus level, and LDH) - Daily DIC panel (fibrinogen levels, PT/INR, PTT) - Provide supportive transfusions to keep hemoglobin above 7 g/dL and platelet count above 10 K - Recommend using cryoprecipitate 10 units if fibrinogen is less than 150, with a goal to keep fibrinogen above 150 - Strictly use irradiated blood products - Avoid using Tylenol and NSAIDs for pain control. - Maintain a low threshold to start empirical antibiotics if the patient develops fever or signs of infection. - Will eventually prefer to have a [place] reservoir but will wait for improved control of infectious process and after it is ensured that the patient is not bacteremic. - Normal scrotal and bilateral lower extremity ultrasound - Skin care team on board. Chemotherapy regimen Hyper-CVAD Chemotherapy, Part A, alternating with high dose MTX and cytarabine - Cyclophosphamide (Cytoxan) 300 mg/m2 IV over 2 hours every 12 hours on days 1 to 3: - Vincristine (Oncovin) 2 mg IV once per day on days 4 and 11 - Doxorubicin (Adriamycin) 50 mg/m2 IV continuous infusion over 24 hours, started on day 4 - Dexamethasone (Decadron) 40 mg IV or PO once per day on days 1 to 4, 11 to 14 - Rituximab 375 mg/m2, will plan for day 11 along with vincristine. Supportive medications - Mesna (Mesnex) 600 mg/m2/day IV continuous infusion over 72 hours, started on day 1, starting 1 hour before Cyclophosphamide (Cytoxan) and completed 12 hours after the last dose of Cyclophosphamide (Cytoxan) - Filgrastim (Neupogen) 5 mcg/kg SC once per day, starting 24 hours after completion of intensive courses of chemotherapy (day 5 for part A, day 4 for part B), given until ANC greater than 1000/uL VS outpatient Neulasta. 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 Will plan for inpatient with IR. Antibiotic prophylaxis: - Acyclovir 400 mg PO BID While on treatment - Levaquin 500 mg PO daily while on treatment - Fluconazole 200 mg PO daily while on treatment - Bactrim DS PO MWF while on treatment Intellectual disability Autism - PT/OT consult - Case management consult - Outpatient case management/care coordination The patient was seen and staffed with Dr. Jaylen Denise MD PGY6, Hematology/Oncology [facility] Staging Information No information available Labs Oncology Flowsheet acetaminophen: 1000 mg (04/26/24) WBC: 18.81 x10(9)/L High (04/28/24) HGB: 7.7 g/dL Low (04/28/24) HCT: 23.1 % Low (04/28/24) PLT: 1753 x10(9)/L Critical (04/28/24) Absolute Neutrophils Manual: 4.89 x10(9)/L (04/28/24) Potassium: 3.3 mmol/L Low (04/28/24) BUN: <5 Low (04/28/24) Creatinine, standardized: 0.6 mg/dL Low (04/28/24) Calcium: 8.8 mg/dL (04/28/24) Phosphorus: 4.4 mg/dL (04/28/24) T Bili: 0.55 mg/dL (04/26/24) Height (cm): 196 cm (04/25/24) Weight (kg): 70 kg (04/27/24) [place] Body Weight: 94.5 kg (04/26/24) Diagnostic Results I spent a total time of 30 minutes on this patient encounter which included but was not limited to personally reviewing history, previous encounters within our healthcare system when available, external records when appropriate, performing the rush aspects of the exam, reviewing orders, providing education to the patient/caregiver, and documentation in the medical record. This excludes any procedure time that may have been performed. All occurred on date of service. I discussed the patient's management with the fellow Dr Denise. I reviewed the note by the fellow and agree with those documented findings and plan of care. The patient was seen on 04/28/2024 . 04/28/2024 Pharmacy Consult Note Pharmacy Dosing Se rvice Note - Vancomycin Dosing Findings Patient is a/an 24 Year(s) Old Male with dosing weight of 68.5 kg. Vancomycin treatment per protocol for sepsis. Current regimen is vancomycin 1500mg IV q12h. Therapy is being monitored with Trough monitoring and goal of Other: 10-15 mcg/mL. Trough-based monitoring selected because Patient with poor model fit. Date Vancomycin Doses Drug Levels (mg/L) WBC SCr (mg/dL) BUN (mg/dL) 04/28/2024 1.25 g, 250 mL, 05:02 Vancomycin Trough: 8.9 mcg/mL, 04:20 18.81 x10(9)/L 0.6 <5 04/27/2024 1.25 g, 250 mL, 04:56 1.25 g, 250 mL, 17:06 13.14 x10(9)/L 0.6 6 04/26/2024 1.75 g, 500 mL, 20:37 6.84 x10(9)/L 0.6 7 Assessment Renal function appears stable at baseline. Random level drawn appropriately.. Trough level is below goal. Plan Based on the findings, plan to change to vancomycin 1500 mg every 12 hours. Pharmacy will continue to monitor and will repeat levels in 3-5 days or sooner if clinically indicated based on indication, renal function, UOP, or SCr changes. Thank you for allowing us to participate in the care of this patient, Larry Ocampo, PharmD, AAHIVP 04/28/2024 Hem Oncology IM Consult Note Subjective Mr. do was seen resting in bed, his pain has improved compared to yesterday but swelling is persistent He had one episode of fever yesterday evening, does not have any chills, or constitutional symptoms otherwise. Review of Systems Negative except as stated in the HPI Objective Vitals and Measurements T: 37.0 C TMIN: 37.0 C TMAX: 38.4 C HR: 104 RR: 16 BP: 95/60 SpO2: 99% Physical Exam General: Alert and oriented. No distress. Eye: EOMI. Normal conjunctiva. HEENT: Normal hearing. Moist oral mucosa. No lymphadenopathy. Pain and swelling in the right perioral cavity Cardiovascular: Regular rate and rhythm. Radial pulse palpable. Pulmonary: Clear to auscultation bilaterally. Normal effort. Abdomen: Soft. Nontender. Musculoskeletal: No lower extremity edema. Nontender. Skin: Warm and dry. Neuro: No focal deficits. Normal gait. Psychiatric: Cooperative. Appropriate affect. Lab Results Test Name Test Result Date/Time WBC 13.14 x10(9)/L (High) 04/27/2024 02:05 CDT HGB 7.4 g/dL (Low) 04/27/2024 02:05 CDT MCV 92.5 fL 04/27/2024 02:05 CDT PLT 1366 x10(9)/L (Critical) 04/27/2024 02:05 CDT Sodium 138 mmol/L 04/27/2024 02:05 CDT Potassium 3.6 mmol/L 04/27/2024 02:05 CDT Chloride 106 mmol/L 04/27/2024 02:05 CDT CO2 25 mmol/L 04/27/2024 02:05 CDT Glucose Lvl 97 mg/dL 04/27/2024 02:05 CDT BUN 6 mg/dL 04/27/2024 02:05 CDT Creatinine, standardized 0.6 mg/dL (Low) 04/27/2024 02:05 CDT Calcium 8.6 mg/dL 04/27/2024 02:05 CDT Phosphorus 3.9 mg/dL 04/27/2024 02:05 CDT Albumin 3.0 g/dL (Low) 04/27/2024 02:05 CDT Assessment/Plan Mr. Do is a 24-year-old male patient of Dr. Nation with a medical history significant for a presumed intellectual disability and recently diagnosed B cell ALL which was diagnosed in 02/2024. He underwent a BM biopsy on 03/15/24 which was consistent with a diagnosis of B ALL with 90 % blasts. Patient received HyperCVAD cycle 1A and 1B inpatient cycle 1B finishing on 04/16/24. He was admitted on 04/26/24 for a febrile illness suspected to be secondary to a dental abscess, he was originally due for Cycle 2A on 04/29/24, we might postpone pending recovery from his infection. Oncologic history and Hematological workup - Initial labs were significant for WBC count 69.4 K, hemoglobin of 5 g/dl, platelet of 58 K, mildly prolonged PT, normal PTT, and fibrinogen levels. Additionally, the patient had hyperuricemia and hyperglycemia. No evidence of TLS. - Peripheral blood smear showed atypical mononuclear cells, most probably blasts, with no signs of Nancy rods. 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 - Echocardiogram on 03/13/2024 showed left ventricular systolic function is hyperdynamic, with an ejection fraction >70%. Left ventricular diastolic function is normal. - Hepatitis panel is negative. HIV testing is negative. - MRI of the brain is negative for features indicative of TOWER EQUIPMENT INSTALLER involvement or acute intracranial abnormalities. - Scrotal ultrasound showed normal scrotum and testes with no evidence of testicular involvement - Chemotherapy education for Hyper-CVAD and consent were completed on 03/14/24 - Bone marrow biopsy by IR on 03/15/2024 showed B-ALL, NGS showed TCF3-PBX1 fusion and an NSD2 (WHSC1 or MMSET) [id number] alteration (VAF 32.32%). 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 However, patient was unable to provide the sample. I personally discussed this with Shena Costello, who is patient's sister and DPOA she agreed to proceed with treatment. - Cycle 1A Day 1 of hyper-CVAD (Part A) on 03/15/2024, Cycle 1 B on 04/08/2024, Received IT chemotherapy on 04/15/24, SC filgrastim on 04/13/2024 and rituximab on 04/16/2024 - Bone marrow biopsy done on 04/04/2024 before Cycle 1B; MRD negative, awaiting for clonal seq. B-cell acute lymphoblastic leukemia - Plan for tentative start of Day 1 of Cycle 2A due on 04/30/2024. Will attempt to ensure that the patient is not bacteremic. - Daily CBC, CMP, and TLS labs (uric acid, phosphorus level, and LDH) - Daily DIC panel (fibrinogen levels, PT/INR, PTT) - Provide supportive transfusions to keep hemoglobin above 7 g/dL and platelet count above 10 K - Recommend using cryoprecipitate 10 units if fibrinogen is less than 150, with a goal to keep fibrinogen above 150 - Strictly use irradiated blood products - Avoid using Tylenol and NSAIDs for pain control. - Maintain a low threshold to start empirical antibiotics if the patient develops fever or signs of infection. - Will eventually prefer to have a [place] reservoir but will wait for improved control of infectious process and after it is ensured that the patient is not bacteremic. - Normal scrotal and bilateral lower extremity ultrasound - Skin care team on board. Chemotherapy regimen Hyper-CVAD Chemotherapy, Part A, alternating with high dose MTX and cytarabine - Cyclophosphamide (Cytoxan) 300 mg/m2 IV over 2 hours every 12 hours on days 1 to 3: - Vincristine (Oncovin) 2 mg IV once per day on days 4 and 11 - Doxorubicin (Adriamycin) 50 mg/m2 IV continuous infusion over 24 hours, started on day 4 - Dexamethasone (Decadron) 40 mg IV or PO once per day on days 1 to 4, 11 to 14 - Rituximab 375 mg/m2, will plan for day 11 along with vincristine. Supportive medications - Mesna (Mesnex) 600 mg/m2/day IV continuous infusion over 72 hours, started on day 1, starting 1 hour before Cyclophosphamide (Cytoxan) and completed 12 hours after the last dose of Cyclophosphamide (Cytoxan) - Filgrastim (Neupogen) 5 mcg/kg SC once per day, starting 24 hours after completion of intensive courses of chemotherapy (day 5 for part A, day 4 for part B), given until ANC greater than 1000/uL VS outpatient Neulasta. 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 Will plan for inpatient with IR. Antibiotic prophylaxis: - Acyclovir 400 mg PO BID While on treatment​ - Levaquin 500 mg PO daily while on treatment - Fluconazole 200 mg PO daily while on treatment - Bactrim DS PO MWF while on treatment Sepsis due to Dental abscess - Fevers with pain and swelling of the right jaw - Blood [facility] 04[facility] [place] - Initiated on meropenem at OSH, continue Zosyn for now - Follow culture results, delay next cycle until we ensure that the patient is not bacteremic - Will eventually need dental follow up outpatient, oral maxillofacial surgery not available at in case drainage is needed Intellectual disability Autism - PT/OT consult - Case management consult - Outpatient case management/care coordination The patient was seen and staffed with Dr. York. Luis Badillo MD PGY 4 Hematology Oncology fellow [facility] I spent a total time of 30 minutes on this patient encounter which included but was not limited to personally reviewing history, previous encounters within our healthcare system when available, external records when appropriate, performing the rush aspects of the exam, reviewing orders, providing education to the patient/caregiver, and documentation in the medical record. This excludes any procedure time that may have been performed. All occurred on date of service. I discussed the patient's management with the fellow Dr Badillo. I reviewed the note by the fellow and agree with those documented findings and plan of care. The patient was seen on 04/27/2024 . 04/27/2024 Hem Oncology IM Consult Note Chief Compl aint Toothache and fevers Reason for Consultation B- ALL Requesting Provider Dr. Dario Madsen History of Present Illness Patient is a 24 yo M patient of Chapis Zee w/ presumed intellectual disability who was recently admitted to from [facility] in [place], [place] for new diagnosis of acute B cell leukemia on 03/14. He was ultimately discharged on 04/18/24 after receiving HyperCVAD 1A and 1B, He was evaluated at an ER in [facility] yesterday due to concerns for a high fever of 103-104 F and a possible dental abscess. Cultures were obtained and the patient was started on meropenem. He has been continued on Zosyn after transfer to our hospital here. He has afebrile this morning after transfer, he is no longer neutropenic. Unfortunately the patient still has pain and swelling over the right part of his jaw but is feeling fine otherwise with no other acute complaints. Review of Systems Negative except as stated in the HPI Physical Exam Vitals and Measurements T: 37.1 C TMIN: 36.7 C TMAX: 38.4 ?C HR: 100 RR: 16 BP: 111/65 SpO2: 98% WT: 68.5 kg BMI: 17.8 eGneral: Alert and oriented. No distress. Eye: EOMI. Normal conjunctiva. HEENT: Normal hearing. Moist oral mucosa. No lymphadenopathy. Pain and swelling in the right perioral cavity Cardiovascular: Regular rate and rhythm. Radial pulse palpable. Pulmonary: Clear to auscultation bilaterally. Normal effort. Abdomen: Soft. Nontender. Musculoskeletal: No lower extremity edema. Nontender. Skin: Warm and dry. Neuro: No focal deficits. Normal gait. Psychiatric: Cooperative. Appropriate affect. Assessment/Plan Mr. Do is a 24-year-old male patient of Dr. Nation with a medical history significant for a presumed intellectual disability and recently diagnosed B cell ALL which was diagnosed in 02/2024. He underwent a BM biopsy on 03/15/24 which was consistent with a diagnosis of B ALL with 90 % blasts. Patient received HyperCVAD cycle 1A and 1B inpatient cycle 1B finishing on 04/16/24. He was admitted on 04/26/24 for a febrile illness suspected to be secondary to a dental abscess. Oncologic history and Hematological workup - Initial labs were significant for WBC count 69.4 K, hemoglobin of 5 g/dl, platelet of 58 K, mildly prolonged PT, normal PTT, and fibrinogen levels. Additionally, the patient had hyperuricemia and hyperglycemia. No evidence of TLS. - Peripheral blood smear showed atypical mononuclear cells, most probably blasts, with no signs of Nancy rods. - Preliminary review of the peripheral blood flow cytometry is consistent with B-ALL with 84% blasts. (Via [facility] on 03/13/[address] Meyer) - Echocardiogram on 03/13/2024 showed left ventricular systolic function is hyperdynamic, with an ejection fraction >70%. Left ventricular diastolic function is normal. - Hepatitis panel is negative. HIV testing is negative. - MRI of the brain is negative for features indicative of TOWER EQUIPMENT INSTALLER involvement or acute intracranial abnormalities. - Scrotal ultrasound showed normal scrotum and testes with no evidence of testicular involvement - Chemotherapy education for Hyper-CVAD and consent were completed on 03/14/24 - Bone marrow biopsy by IR on 03/15/2024 showed B-ALL, NGS showed TCF3-PBX1 fusion and an NSD2 (WHSC1 or MMSET) [id number] alteration (VAF 32.32%). 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 However, patient was unable to provide the sample. I personally discussed this with Shena Costello, who is patient's sister and DPOA she agreed to proceed with treatment. - Cycle 1A Day 1 of hyper-CVAD (Part A) on 03/15/2024, Cycle 1 B on 04/08/2024, Received IT chemotherapy on 04/15/24, SC filgrastim on 04/13/2024 and rituximab on 04/16/2024 - Bone marrow biopsy done on 04/04/2024 before Cycle 1B; MRD negative, awaiting for clonal seq. B-cell acute lymphoblastic leukemia - Plan for tentative start of Day 1 of Cycle 2A due on 04/30/2024. Will attempt to ensure that the patient is not bacteremic. - Daily CBC, CMP, and TLS labs (uric acid, phosphorus level, and LDH) - Daily DIC panel (fibrinogen levels, PT/INR, PTT) - Provide supportive transfusions to keep hemoglobin above 7 g/dL and platelet count above 10 K - Recommend using cryoprecipitate 10 units if fibrinogen is less than 150, with a goal to keep fibrinogen above 150 - Strictly use irradiated blood products - Avoid using Tylenol and NSAIDs for pain control. - Maintain a low threshold to start empirical antibiotics if the patient develops fever or signs of infection. - Will eventually prefer to have a [place] reservoir but will wait for improved control of infectiious process and after it is ensured that the patient is not bacteremic. - Normal scrotal and bilateral lower extremity ultrasound - Skin care team on board. Chemotherapy regimen Hyper-CVAD Chemotherapy, Part A, alternating with high dose MTX and cytarabine - Cyclophosphamide (Cytoxan) 300 mg/m2 IV over 2 hours every 12 hours on days 1 to 3: - Vincristine (Oncovin) 2 mg IV once per day on days 4 and 11 - Doxorubicin (Adriamycin) 50 mg/m2 IV continuous infusion over 24 hours, started on day 4 - Dexamethasone (Decadron) 40 mg IV or PO once per day on days 1 to 4, 11 to 14 - Rituximab 375 mg/m2, will plan for day 11 along with vincristine. Supportive medications - Mesna (Mesnex) 600 mg/m2/day IV continuous infusion over 72 hours, started on day 1, starting 1 hour before Cyclophosphamide (Cytoxan) and completed 12 hours after the last dose of Cyclophosphamide (Cytoxan) - Filgrastim (Neupogen) 5 mcg/kg SC once per day, starting 24 hours after completion of intensive courses of chemotherapy (day 5 for part A, day 4 for part B), given until ANC greater than 1000/uL VS outpatient Neulasta. 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 Will plan for inpatient with IR. Antibiotic prophylaxis: - Acyclovir 400 mg PO BID While on treatment - Levaquin 500 mg PO daily while on treatment - Fluconazole 200 mg PO daily while on treatment​ - Bactrim DS PO MWF while on treatment Sepsis due to Dental abscess - Fevers with pain and swelling of the right jaw - Blood cultures obtained [facility] 04[facility] at [facility] [place] - Initiated on meropenem at OSH, continue Zosyn for now - Follow culture results, delay next cycle until we ensure that the patient is not bacteremic - Will eventually need dental follow up outpatient, oral maxillofacial surgery not available at in case drainage is needed Intellectual disability Autism - PT/OT consult - Case management consult - Outpatient case management/care coordination The patient was seen and staffed with Dr. York. Luis Badillo MD PGY 4 Hematology Oncology fellow [facility] Problem List/Past Medical History Ongoing No chronic problems Historical No qualifying data Procedure/Surgical History Medications Inpatient acyclovir, 400 mg= 2 capsule(s), Oral, bid Dilaudid Inj, 1 mg= 1 mL, Slow IV Push, q4h, PRN enoxaparin, 40 mg= 0.4 mL, Subcutaneous, At Bedtime gabapentin, 100 mg= 1 capsule(s), Oral, bid melatonin 3 mg oral tablet, 3 mg= 1 Tablet(s), Oral, At Bedtime, PRN MiraLax, 17 g= 1 Packet, Oral, Daily morphine extended release, 15 mg= 1 Tablet(s), Oral, q12h senna (sennosides) 8.6 mg oral tablet, 8.6 mg= 1 Tablet(s), Oral, bid sodium bicarbonate 650 mg oral tablet, 650 mg= 1 Tablet(s), Oral, bid tiZANidine, 4 mg= 1 Tablet(s), Oral, q6h, PRN vancomycin, 1.25 g= 250 mL, IVPB, [id number] VANCOMYCIN IV - PHARMACY TO DOSE, 1 Each, Message, As Indicated, PRN Zosyn Home acetaminophen 500 mg oral tablet, 1000 mg= 2 Tablet(s), Oral, q6h, PRN Acidophilus Probiotic Blend oral capsule, 1 capsule(s), Oral, Daily acyclovir 200 mg oral capsule, 400 mg= 2 capsule(s), Oral, bid acyclovir 400 mg oral tablet, 400 mg, Oral, bid cefdinir 300 mg oral capsule, 300 mg= 1 capsule(s), Oral, q12h gabapentin 100 mg oral capsule, 100 mg= 1 capsule(s), Oral, bid ibuprofen 200 mg oral tablet, 400 mg= 2 Tablet(s), Oral, q6h, PRN MiraLax oral powder for reconstitution, 17 g, Oral, Daily morphine 15 mg/8 to 12 hr oral tablet, extended release, 15 mg= 1 Tablet(s), Oral, q12h senna (sennosides) 8.6 mg oral tablet, 8.6 mg= 1 Tablet(s), Oral, bid sodium bicarbonate 650 mg oral tablet, 650 mg= 1 Tablet(s), Oral, bid tiZANidine 4 mg oral tablet, 4 mg= 1 Tablet(s), Oral, q6h, PRN Allergies NKA Social History Smoking Status Former smoker quit within 12 months Family History Immunizations Lab Results Test Name Test Result Date/Time WBC 6.84 x10(9)/L 04/26/2024 04:43 CDT HGB 6.3 g/dL (Low) 04/26/2024 04:43 CDT HCT 18.8 % (Critical) 04/26/2024 04:43 CDT MCV 92.9 fL 04/26/2024 04:43 CDT PLT 969 x10(9)/L (High) 04/26/2024 04:43 CDT Neuts Manual 46.0 % 04/26/2024 04:43 CDT Absolute Neutrophils Manual 3.15 x10(9)/L 04/26/2024 04:43 CDT Lymphocytes Manual 49.0 % 04/26/2024 04:43 CDT Monocytes Manual 1.0 % 04/26/2024 04:43 CDT Abs Monocytes Manual 0.07 x10(9)/L (Low) 04/26/2024 04:43 CDT Teardrop Cells 1 (3-6%) 04/26/2024 04:43 CDT Sodium 136 mmol/L 04/26/2024 02:41 CDT Potassium 3.2 mmol/L (Low) 04/26/2024 02:41 CDT Chloride 102 mmol/L 04/26/2024 02:41 CDT CO2 27 mmol/L 04/26/2024 02:41 CDT BUN 7 mg/dL 04/26/2024 02:41 CDT Creatinine, standardized 0.6 mg/dL (Low) 04/26/2024 02:41 CDT Calcium 8.6 mg/dL 04/26/2024 02:41 CDT Total Protein 5.6 g/dL (Low) 04/26/2024 02:41 CDT Albumin 3.1 g/dL (Low) 04/26/2024 02:41 CDT T Bili 0.55 mg/dL 04/26/2024 02:41 CDT Alkaline Phosphatase 169 U/L (High) 04/26/2024 02:41 CDT AST-SGOT 11 U/L 04/26/2024 02:41 CDT ALT-SGPT 24 U/L 04/26/2024 02:41 CDT Diagnostic Results FINAL DIAGNOSIS (04/19/2024): 1. PERIPHERAL BLOOD, LUO S STAINED FILM: Macrocytic anemia; Neutrophilia with left shift; Monocytosis 2. BONE MARROW, ASPIRATION AND BIOPSY: Hypercellular marrow (90%) with predominance of myeloids; No increase in blasts (1.4%); Negative for residual leukemia (ICC 2021) SITE: Right iliac crest ADEQUACY: Adequate 3. BONE MARROW, PARAFFIN IMMUNOPEROXIDASE STUDIES: No increase in blasts 4. BONE MARROW, FLOW CYTOMETRIC ANALYSIS: No abnormal B-cell precursor population is detected (MRD-negative); Predominant immature granulocyte population showing expression of CD56 identified; No mature B-cells detected; No phenotypically aberrant T-cell population or increase in blasts identified 5. BONE MARROW, CYTOGENETICS: Chromosome analysis shows a normal male karyotype, 46,XY[20] 6. BONE MARROW, MOLECULAR GENETIC STUDIES: B-ALL FISH is normal; ClonoSEQ B-cell tracking detected residual sequences (three residual clonal cells per million nucleated cells) [1] [1] Histology ; Boris BRISCOE, Evelina Weber 04/04/2024 02:51 CDT I spent a total time of 30 minutes on this patient encounter which included but was not limited to personally reviewing history, previous encounters within our healthcare system when available, external records when appropriate, performing the rush aspects of the exam, reviewing orders, providing education to the patient/caregiver, and documentation in the medical record. This excludes any procedure time that may have been performed. All occurred on date of service. I discussed the patient's management with the fellow Dr Badillo. I reviewed the note by the fellow and agree with those documented findings and plan of care. The patient was seen on 04/26/2024 . Await results of blood cultures drawn at outside hospital. Will delay next chemo cycle until infection is adequately controlled as evidenced by complete defervescence of fever, resolution of local pain and swelling, negative blood cultures. CBC shows count recovery which is reassuring. 04/26/2024 Hem Oncology IM Consult Note Subjective - No major acute events overnight. Mr. Do was seen and examined at bedside today, he appears to be hemodynamically stable, generally feels well, and reports no complaints. Today savage day 9 of cycle 1B of hyper-CVAD chemotherapy and the patient continues to tolerate treatment very well. The patient denies any symptoms of fever, chills, productive cough, worsening shortness of breath, palpitations, orthopnea, or lower extremity edema. There are no complaints of skin itching, irritation, or new rashes. Furthermore, he denies experiencing nausea, vomiting, abdominal pain, diarrhea, or constipation. Review of Systems A complete 14 point review of systems was performed and is negative except as stated in the HPI. Objective Vitals and Measurements T: 36.8 C TMIN: 36.3 C TMAX: 37.2 C HR: 97 RR: 20 BP: 118/64 SpO2: 98% WT: 68.5 kg BMI: 17.8 Physical Exam Constitutional: no acute distress Eyes: sclera/conjunctiva clear; PERRL; EOMs intact Ears: Normal hearing; Mouth and Throat: pharynx clear; mucous membranes moist Cardiovascular: Regular rate and rhythm; normal S1 and S2 without murmur or gallop Respiratory: lungs clear Gastrointestinal: abdomen soft without hepatosplenomegaly, masses or tenderness; BS active Musculoskeletal: joints without deformity, erythema or warmth; able to move all 4 extremities against gravity Skin: no rashes or visible lesions Neurologic: alert and oriented X 3; 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; Sensation intact to light touch Psychiatric: normal affect Lymph Nodes: no palpable cervical, supraclavicular or inguinal nodes Lab Results Test Name Test Result Date/Time WBC 0.83 x10(9)/L (Critical) 04/18/2024 11:37 CDT RBC 2.38 x10(12)/L (Low) 04/18/2024 11:37 CDT HGB 7.4 g/dL (Low) 04/18/2024 11:37 CDT HCT 22.2 % (Low) 04/18/2024 11:37 CDT MCV 93.3 fL 04/18/2024 11:37 CDT MCH 31.1 pg 04/18/2024 11:37 CDT MCHC 33.3 g/dL 04/18/2024 11:37 CDT RDW SD 55.0 fL (High) 04/18/2024 11:37 CDT RDW CV 16.7 % (High) 04/18/2024 11:37 CDT PLT 38 x10(9)/L (Low) 04/18/2024 11:37 CDT MPV 9.7 04/18/2024 11:37 CDT Neuts Manual 41.0 % 04/18/2024 11:37 CDT Absolute Neutrophils Manual 0.34 x10(9)/L (Critical) 04/18/2024 11:37 CDT Lymphocytes Manual 55.0 % 04/18/2024 11:37 CDT Abs Lymphocytes Manual 0.46 x10(9)/L (Low) 04/18/2024 11:37 CDT Reactive Lymphs Manual 2.0 % 04/18/2024 11:37 CDT Abs Reactive Lymphs Manual 00.02 04/18/2024 11:37 CDT Eosinophils Manual 1.0 % 04/18/2024 11:37 CDT Abs Eosinophils Manual 0.01 x10(9)/L (Low) 04/18/2024 11:37 CDT Basophils Manual 1.0 % 04/18/2024 11:37 CDT Abs Basophils Manual 0.01 x10(9)/L 04/18/2024 11:37 CDT RBC Morphology Previously Reviewed 04/18/2024 11:37 CDT Teardrop Cells 1 (3-6%) 04/18/2024 11:37 CDT Schistocytes 1 (Rare-3%) 04/18/2024 11:37 CDT Elliptocytes (Ovalocytes) 1 (10-25%) 04/18/2024 11:37 CDT Platelet Estimate Decreased3 04/18/2024 11:37 CDT Sodium 139 mmol/L 04/18/2024 11:37 CDT Potassium 3.4 mmol/L (Low) 04/18/2024 11:37 CDT Chloride 106 mmol/L 04/18/2024 11:37 CDT CO2 29 mmol/L 04/18/2024 11:37 CDT Anion gap 7 mmol/L 04/18/2024 11:37 CDT Glucose Lvl 92 mg/dL 04/18/2024 11:37 CDT BUN 7 mg/dL 04/18/2024 11:37 CDT Creatinine, standardized 0.4 mg/dL (Low) 04/18/2024 11:37 CDT Estimated GFR for Adults 155 mL/min/1.73m 04/18/2024 11:37 CDT Estimated GFR for peds Not calculated 04/18/2024 11:37 CDT Calcium 9.0 mg/dL 04/18/2024 11:37 CDT Total Protein 5.3 g/dL (Low) 04/18/2024 11:37 CDT Albumin 3.1 g/dL (Low) 04/18/2024 11:37 CDT T Bili 0.76 mg/dL 04/18/2024 11:37 CDT Alkaline Phosphatase 231 U/L (High) 04/18/2024 11:37 CDT AST-SGOT 43 U/L (High) 04/18/2024 11:37 CDT ALT-SGPT 118 U/L (High) 04/18/2024 11:37 CDT Diagnostic Results PRELIMINARY DIAGNOSIS (04/09/2024): 1. PERIPHERAL BLOOD, LUO S STAINED FILM: Macrocytic anemia, neutrophilia with left shift and monocytosis. 2. BONE MARROW, ASPIRATION AND BIOPSY: Hypercellular marrow (90%) with predominance of myeloids; No increse in blasts (1.4%); Negative for residual leukemia (ICC 2021) SITE: Right iliac crest ADEQUACY: Adequate 3. BONE MARROW, PARAFFIN IMMUNOPEROXIDASE STUDIES: No increase in blasts 4. BONE MARROW, FLOW CYTOMETRIC ANALYSIS: No abnormal B-cell precursor population is detected (MRD-negative); Predominant immature granulocyte population showing expression of CD56 identified; No mature B-cells detected; No phenotypically aberrant T-cell population or increase in blasts identified 5. BONE MARROW, CYTOGENETICS: Chromosome analysis shows a normal male karyotype, 46,XY[20] 6. BONE MARROW, MOLECULAR GENETIC STUDIES: B-ALL FISH is normal; ClonoSEQ pending ([facility]/rlb7/) ([facility]/rlb7/) By this signature, I attest that the above diagnosis is based upon my personal examination of the tissue and slides (and/or other material indicated in the diagnosis), per policy. A resident was involved in the pathologic evaluation of this case, I have reviewed and edited the findings of the resident. Edward Kraft M.D. Electronically Signed Out Assessment/Plan This is a 24-year-old male with a medical history significant for a presumed intellectual disability presented to as a direct admit from [facility] in [place], [place] over concerns for acute leukemia. The patient has been in the ER a few times this month with vague complaints of abdominal pain and back pain. At those visits, his lab work and imaging were unremarkable. Yesterday, he presented to the ED for epistaxis, where he lost an estimated 1 cup of blood. Routine labs were drawn, and significant derangements were noticed, including a Hgb of 6, platelet count of 64, WBC 66,000, elevated LFTs, uric acid of 8, and an LDH >8000. He was transferred from acute care ED to for for acute leukemia evaluation. - Initial labs were significant for WBC count 69.4 K, hemoglobin of 5 g/dl, platelet of 58 K, mildly prolonged PT, normal PTT, and fibrinogen levels. Additionally, the patient had hyperuricemia and hyperglycemia. No evidence of TLS. - Peripheral blood smear showed atypical mononuclear cells, most probably blasts, with no signs of Nancy rods. - An echocardiogram performed on 03/13/2024 showed left ventricular systolic function is hyperdynamic, with an ejection fraction >70%. Left ventricular diastolic function is normal. - Hepatitis panel is negative. HIV testing is negative. - MRI of the brain is negative for features indicative of T[employer] EQUIPMENT INSTALLER involvement or acute intracranial abnormalities. 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 However, patient was unable to provide the sample. Heme/Onc fellow on service personally discussed this with Shena Costello, who is patient's sister and DPOA she agreed to proceed with treatment. - Cycle 1A Day 1 of hyper-CVAD (Part A) on 03/15/2024 to 03/18 with Neupogen support - Bone marrow biopsy done on 04/04/2024 before Cycle 1B; MRD negative, awaiting for clonal seq. 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 - Cycle 1B was initially postponed due to mild transaminitis. Started on 04/08/2024, proceed with day 4 of treatment. - IT chemo on 04/09 needs D7 IT on 04/15 (day 7 Monday, will plan for Monday day 10). Will follow-up CSF cytology without any evidence of malignant cells, flow cytometry is negative for blasts. - MTX level 0.05 normal - Daily CBC, CMP, and TLS labs (uric acid, phosphorus level, and LDH) - Provide supportive transfusions to keep hemoglobin above 7 g/dL and platelet count above 10 K - Strictly use irradiated blood products - Avoid using Tylenol and NSAIDs for pain control. - Maintain a low threshold to start empirical antibiotics if the patient develops fever or signs of infection. - Discussed with neurosurgery regarding optimal timing for placement of [place] reservoir, preferably immediately before the next cycle to avoid cytopenia. (Potential placement before Cycle 2A) (NSGY attending performing [place] reservoir is unavailable this week, recommend OP follow up for reservoir placement.) Will need to reschedule upon discharge to be before Cycle 2A. - Skin care team on board. - Received IT chemotherapy on 04/15/24 - Received SC filgrastim on 04/13/2024 - Received rituximab point 04/16/2024 [Upon discharge patient will need labs closer to home in [place], [place]]. Chemotherapy regimen Hyper-CVAD Chemotherapy, Part B Methotrexate 200 mg/m2 IV over 2 hours on Day 1 followed by 800 mg/m2; IV continuous infusion over 22 hours on Day 1 Cytarabine (age <60 years) 3,000 mg/mm2; IV over 3 hours every 12 hours for 4 doses on Days 2 and 3 Alkaline hydration is required pre- and post-administration of high-dose methotrexate. Leucovorin 50 mg IV over 15 minutes on Day 2 administered 12 hours after completion of 22-hour methotrexate infusion followed by 15 mg IV over 15 minutes or PO every 6 hours for at least 8 doses (until methotrexate serum concentration is <0.05 micromol/L) Leucovorin dose should be titrated for delayed methotrexate clearance. IT Chemotherapy - Methotrexate 12 mg intrathecal on Day 2 of Cycles 1B to 4A in future cycle day 1 - Cytarabine 100 mg intrathecal on Day 7 of Cycles 1B to 4A in the future cycle day 4 Supportive medications - Filgrastim (Neupogen) 5 mcg/kg SC once per day, starting 24 hours after completion of intensive courses of chemotherapy (day 5 for part A, day 4 for part B), given until ANC greater than 1000/uL VS outpatient Neulasta. -Prednisone eyedrops until 5 days. Antibiotic prophylaxis: - Acyclovir 400 mg PO BID While on treatment - Levaquin 500 mg PO daily while on treatment - Fluconazole 200 mg PO daily while on treatment - Bactrim DS PO MWF while on treatment Hold due to methotrexate Antibiotic prophylaxis on discharge: Acyclovir 400 mg PO BID, Levaquin 500 mg PO daily, Bactrim DS PO MWF and Fluconazole 200 mg PO daily. Elevated liver enzymes: Resolved Hypoalbuminemia - Ultrasound of the right upper quadrant obtained on 03/14/24 showed hepatomegaly with liver measuring up to 26 cm in cranial caudal dimension. Diffuse hepatic steatosis. Splenomegaly. Cholelithiasis without ultrasound evidence of acute cholecystitis. - CT abdomen and pelvis on 04/03 showed no acute infection. - 04/04: Liver enzymes stabilized. - Plan: - Levofloxacin on hold since 04/03. Liver enzymes stopped trending up and slightly better off levofloxacin. So, switched the patient to PO cefpodoxime 200 mg Q12. - HOLD Fluconazole in view of elevated LFTs until improvement. Low risk for fungal infections in setting of normal ANC. - Daily LFTs - Dose adjust medications to the patient's hepatic function - Avoid unnecessary hepatotoxic medications - CMV PCR in process. Dental caries Poor dentition - Panorex X-ray showed dental caries - Monitor for oral pain, bleeding or signs of dental abscess - 04/05: One of the front teeth broke off today. Intellectual disability Autism - PT/OT consult - Case management consult - Outpatient case management/care coordination Back pain Patient has pain at the site of LP. Recommend muscle relaxant Anemia: Patient is on hemoglobin 8 g/dL Recommend to transfuse hemoglobin goal to keep above 7 g/dL Upon discharge, patient can get twice weekly blood draw at [facility] in [place], [place]. . Ashley Valenzuela. Patient case discussed with attending, Dr.Xue Dinesh Vazquez MD PGY5, Hematology/ Medical Oncology [facility] [1] Progress/SOAP Note; Dinesh Vazquez MD 04/17/2024 11:27 CDT 04/18/2024 Hem Oncology IM Consult Note Subjective - No major acute events overnight. Mr. Do was seen and examined at bedside today, he appears to be hemodynamically stable, generally feels well, and reports no complaints. Today savage day 8 of cycle 1B of hyper-CVAD chemotherapy and the patient continues to tolerate treatment very well. The patient denies any symptoms of fever, chills, productive cough, worsening shortness of breath, palpitations, orthopnea, or lower extremity edema. There are no complaints of skin itching, irritation, or new rashes. Furthermore, he denies experiencing nausea, vomiting, abdominal pain, diarrhea, or constipation. Review of Systems A complete 14 point review of systems was performed and is negative except as stated in the HPI. Objective Vitals and Measurements T: 36.9 C TMIN: 36.5 C TMAX: 37.1 C HR: 91 RR: 20 BP: 131/79 SpO2: 100% Physical Exam Constitutional: no acute distress Eyes: sclera/conjunctiva clear; PERRL; EOMs intact Ears: Normal hearing; Mouth and Throat: pharynx clear; mucous membranes moist Cardiovascular: Regular rate and rhythm; normal S1 and S2 without murmur or gallop Respiratory: lungs clear Gastrointestinal: abdomen soft without hepatosplenomegaly, masses or tenderness; BS active Musculoskeletal: joints without deformity, erythema or warmth; able to move all 4 extremities against gravity Skin: no rashes or visible lesions Neurologic: alert and oriented X 3; 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; Sensation intact to light touch Psychiatric: normal affect Lymph Nodes: no palpable cervical, supraclavicular or inguinal nodes Lab Results Test Name Test Result Date/Time WBC 4.88 x10(9)/L 04/16/2024 04:00 CDT RBC 2.26 x10(12)/L (Low) 04/16/2024 04:00 CDT HGB 7.1 g/dL (Low) 04/16/2024 04:00 CDT HCT 21.7 % (Low) 04/16/2024 04:00 CDT MCV 96.0 fL (High) 04/16/2024 04:00 CDT MCH 31.4 pg 04/16/2024 04:00 CDT MCHC 32.7 g/dL 04/16/2024 04:00 CDT RDW SD 57.7 fL (High) 04/16/2024 04:00 CDT RDW CV 16.7 % (High) 04/16/2024 04:00 CDT PLT 124 x10(9)/L (Low) 04/16/2024 04:00 CDT MPV 9.1 04/16/2024 04:00 CDT % Neutrophils 90.8 % 04/16/2024 04:00 CDT Absolute Granulocytes 4.41 x10(9)/L 04/16/2024 04:00 CDT % Immature Granulocytes 0.80 % (High) 04/16/2024 04:00 CDT Abs Immature Granulocytes 0.04 x10(9)/L (High) 04/16/2024 04:00 CDT % Lymphocytes 6.6 % 04/16/2024 04:00 CDT Abs Lymphocytes 0.32 x10(9)/L (Low) 04/16/2024 04:00 CDT % Monocytes 0.8 % 04/16/2024 04:00 CDT Abs Monocytes 0.04 x10(9)/L (Low) 04/16/2024 04:00 CDT % Eosinophils 0.2 % 04/16/2024 04:00 CDT Abs Eosinophils 0.01 x10(9)/L (Low) 04/16/2024 04:00 CDT % Basophils 0.8 % 04/16/2024 04:00 CDT Abs Basophils 0.04 x10(9)/L 04/16/2024 04:00 CDT % Nucleated RBCs 0.0 % 04/16/2024 04:00 CDT Absolute Nucleated RBCs 0.0 x10(9)/L 04/16/2024 04:00 CDT RBC Morphology Present4 04/16/2024 04:00 CDT Anisocytosis 1 (10-20%) 04/16/2024 04:00 CDT Schistocytes 1 (Rare-3%) 04/16/2024 04:00 CDT Pappenheimer bodies Present4 04/16/2024 04:00 CDT Platelet Estimate Decreased3 04/16/2024 04:00 CDT Sodium 136 mmol/L 04/16/2024 04:00 CDT Potassium 3.4 mmol/L (Low) 04/16/2024 04:00 CDT Chloride 105 mmol/L 04/16/2024 04:00 CDT CO2 25 mmol/L 04/16/2024 04:00 CDT Anion gap 9 mmol/L 04/16/2024 04:00 CDT Glucose Lvl 106 mg/dL 04/16/2024 04:00 CDT BUN 15 mg/dL 04/16/2024 04:00 CDT Creatinine, standardized 0.4 mg/dL (Low) 04/16/2024 04:00 CDT Estimated GFR for Adults 152 mL/min/1.73m 04/16/2024 04:00 CDT Estimated GFR for peds Not calculated 04/16/2024 04:00 CDT Calcium 8.9 mg/dL 04/16/2024 04:00 CDT Total Protein 5.4 g/dL (Low) 04/16/2024 04:00 CDT Albumin 3.0 g/dL (Low) 04/16/2024 04:00 CDT T Bili 0.97 mg/dL 04/16/2024 04:00 CDT Alkaline Phosphatase 268 U/L (High) 04/16/2024 04:00 CDT AST-SGOT 59 U/L (High) 04/16/2024 04:00 CDT ALT-SGPT 145 U/L (High) 04/16/2024 04:00 CDT Diagnostic Results PRELIMINARY DIAGNOSIS (04/09/2024): 1. PERIPHERAL BLOOD, LUO S STAINED FILM: Macrocytic anemia, neutrophilia with left shift and monocytosis. 2. BONE MARROW, ASPIRATION AND BIOPSY: Hypercellular marrow (90%) with predominance of myeloids; No increse in blasts (1.4%); Negative for residual leukemia (ICC 2021) SITE: Right iliac crest ADEQUACY: Adequate 3. BONE MARROW, PARAFFIN IMMUNOPEROXIDASE STUDIES: No increase in blasts 4. BONE MARROW, FLOW CYTOMETRIC ANALYSIS: No abnormal B-cell precursor population is detected (MRD-negative); Predominant immature granulocyte population showing expression of CD56 identified; No mature B-cells detected; No phenotypically aberrant T-cell population or increase in blasts identified 5. BONE MARROW, CYTOGENETICS: Chromosome analysis shows a normal male karyotype, 46,XY[20] 6. BONE MARROW, MOLECULAR GENETIC STUDIES: B-ALL FISH is normal; ClonoSEQ pending ([facility]/rlb7/) ([facility]/rlb7/) By this signature, I attest that the above diagnosis is based upon my personal examination of the tissue and slides (and/or other material indicated in the diagnosis), per policy. A resident was involved in the pathologic evaluation of this case, I have reviewed and edited the findings of the resident. Edward Kraft M.D. Electronically Signed Out [1] [1] Assessment/Plan This is a 24-year-old male with a medical history significant for a presumed intellectual disability presented to as a direct admit from [facility] in [place], [place] over concerns for acute leukemia. The patient has been in the ER a few times this month with vague complaints of abdominal pain and back pain. At those visits, his lab work and imaging were unremarkable. Yesterday, he presented to the ED for epistaxis, where he lost an estimated 1 cup of blood. Routine labs were drawn, and significant derangements were noticed, including a Hgb of 6, platelet count of 64, WBC 66,000, elevated LFTs, uric acid of 8, and an LDH >8000. He was transferred from acute care ED to [facility] for for acute leukemia evaluation. - Initial labs were significant for WBC count 69.4 K, hemoglobin of 5 g/dl, platelet of 58 K, mildly prolonged PT, normal PTT, and fibrinogen levels. Additionally, the patient had hyperuricemia and hyperglycemia. No evidence of TLS. - Peripheral blood smear showed atypical mononuclear cells, most probably blasts, with no signs of Nancy rods. - An echocardiogram performed on 03/13/2024 showed left ventricular systolic function is hyperdynamic, with an ejection fraction >70%. Left ventricular diastolic function is normal. - Hepatitis panel is negative. HIV testing is negative. - MRI of the brain is negative for features indicative of T[employer] EQUIPMENT INSTALLER involvement or acute intracranial abnormalities. 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 However, patient was unable to provide the sample. Heme/Onc fellow on service personally discussed this with Shena Costello, who is patient's sister and DPOA she agreed to proceed with treatment. - Cycle 1A Day 1 of hyper-CVAD (Part A) on 03/15/2024 to 03/18 with Neupogen support - Bone marrow biopsy done on 04/04/2024 before Cycle 1B; MRD negative, awaiting for clonal seq. 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 - Cycle 1B was initially postponed due to mild transaminitis. Started on 04/08/2024, proceed with day 4 of treatment. - IT chemo on 04/09 needs D7 IT on 04/15 (day 7 Monday, will plan for Monday day 10). Will follow-up CSF cytology without any evidence of malignant cells, flow cytometry is negative for blasts. - MTX level 0.05 normal - Daily CBC, CMP, and TLS labs (uric acid, phosphorus level, and LDH) - Provide supportive transfusions to keep hemoglobin above 7 g/dL and platelet count above 10 K - Strictly use irradiated blood products - Avoid using Tylenol and NSAIDs for pain control. - Maintain a low threshold to start empirical antibiotics if the patient develops fever or signs of infection. - Discussed with neurosurgery regarding optimal timing for placement of [place] reservoir, preferably immediately before the next cycle to avoid cytopenia. (Potential placement before Cycle 2A) (NSGY attending performing [place] reservoir is unavailable this week, recommend OP follow up for reservoir placement.) Will need to reschedule upon discharge to be before Cycle 2A. - Skin care team on board. - Received IT chemotherapy on 04/15/24 - Received SC filgrastim on 04/13/2024 - Received rituximab point 04/16/2024 [Upon discharge patient will need labs closer to home in [place], [place]]. Chemotherapy regimen Hyper-CVAD Chemotherapy, Part B Methotrexate 200 mg/m2 IV over 2 hours on Day 1 followed by 800 mg/m2; IV continuous infusion over 22 hours on Day 1 Cytarabine (age <60 years) 3,000 mg/mm2; IV over 3 hours every 12 hours for 4 doses on Days 2 and 3 Alkaline hydration is required pre- and post-administration of high-dose methotrexate. Leucovorin 50 mg IV over 15 minutes on Day 2 administered 12 hours after completion of 22-hour methotrexate infusion followed by 15 mg IV over 15 minutes or PO every 6 hours for at least 8 doses (until methotrexate serum concentration is <0.05 micromol/L) Leucovorin dose should be titrated for delayed methotrexate clearance. IT Chemotherapy - Methotrexate 12 mg intrathecal on Day 2 of Cycles 1B to 4A in future cycle day 1 - Cytarabine 100 mg intrathecal on Day 7 of Cycles 1B to 4A in the future cycle day 4 Supportive medications - Filgrastim (Neupogen) 5 mcg/kg SC once per day, starting 24 hours after completion of intensive courses of chemotherapy (day 5 for part A, day 4 for part B), given until ANC greater than 1000/uL VS outpatient Neulasta. -Prednisone eyedrops until 5 days. Antibiotic prophylaxis: - Acyclovir 400 mg PO BID While on treatment - Levaquin 500 mg PO daily while on treatment - Fluconazole 200 mg PO daily while on treatment - Bactrim DS PO MWF while on treatment Hold due to methotrexate Antibiotic prophylaxis on discharge: Acyclovir 400 mg PO BID, Levaquin 500 mg PO daily, Bactrim DS PO MWF and Fluconazole 200 mg PO daily. Elevated liver enzymes: Resolved Hypoalbuminemia - Ultrasound of the right upper quadrant obtained on 03/14/24 showed hepatomegaly with liver measuring up to 26 cm in cranial caudal dimension. Diffuse hepatic steatosis. Splenomegaly. Cholelithiasis without ultrasound evidence of acute cholecystitis. - CT abdomen and pelvis on 04/03 showed no acute infection. - 04/04: Liver enzymes stabilized. - Plan: - Levofloxacin on hold since 04/03. Liver enzymes stopped trending up and slightly better off levofloxacin. So, switched the patient to PO cefpodoxime 200 mg Q12. - HOLD Fluconazole in view of elevated LFTs until improvement. Low risk for fungal infections in setting of normal ANC. - Daily LFTs - Dose adjust medications to the patient's hepatic function - Avoid unnecessary hepatotoxic medications - CMV PCR in process. Dental caries Poor dentition - Panorex X-ray showed dental caries - Monitor for oral pain, bleeding or signs of dental abscess - 04/05: One of the front teeth broke off today. Intellectual disability Autism - PT/OT consult - Case management consult - Outpatient case management/care coordination Back pain Patient has pain at the site of LP. Recommend muscle relaxant Anemia: Patient is on hemoglobin 8 g/dL Recommend to transfuse hemoglobin goal to keep above 7 g/dL Upon discharge, patient can get twice weekly blood draw at [facility] in [place], [place]. . [address] [place] [address]. Patient case discussed with attending, Dr.Xue Dinesh Vazquez MD PGY5, Hematology/ Medical Oncology [facility] [1] Progress/SOAP Note; Dinesh Vazquez MD 04/16/2024 11:27 CDT Attestation by Miguelina Horne MD Patient was seen and examined on 04/17/2024 with Fellow, which included but was not limited to personally reviewing history, previous encounters within our healthcare system when available, external records when appropriate, performing the rush aspects of the exam, reviewing orders, providing education to the patient/caregiver, and documentation in the medical record. This excludes any procedure time that may have been performed. All occurred on date of service. I discussed the patient's management with the fellow Dr Vazquez. I reviewed the note by the fellow and agree with those documented findings and plan of care. 04/17/2024 Hem Oncology IM Consult Note Subjective No major acute events overnight. Mr. Do was seen and examined at bedside today, he appears to be hemodynamically stable, generally feels well, and reports no complaints. Today savage day 7 of cycle 1B of hyper-CVAD chemotherapy and the patient continues to tolerate treatment very well. The patient denies any symptoms of fever, chills, productive cough, worsening shortness of breath, palpitations, orthopnea, or lower extremity edema. There are no complaints of skin itching, irritation, or new rashes. Furthermore, he denies experiencing nausea, vomiting, abdominal pain, diarrhea, or constipation. Review of Systems A complete 14 point review of systems was performed and is negative except as stated in the HPI. Objective Vitals and Measurements T: 36.8 C TMIN: 36.6 C TMAX: 36.8 C HR: 93 RR: 16 BP: 121/68 SpO2: 99% WT: 68.6 kg BMI: 17.9 Physical Exam Constitutional: no acute distress Eyes: sclera/conjunctiva clear; PERRL; EOMs intact Ears: Normal hearing; Mouth and Throat: pharynx clear; mucous membranes moist Cardiovascular: Regular rate and rhythm; normal S1 and S2 without murmur or gallop Respiratory: lungs clear Gastrointestinal: abdomen soft without hepatosplenomegaly, masses or tenderness; BS active Musculoskeletal: joints without deformity, erythema or warmth; able to move all 4 extremities against gravity Skin: no rashes or visible lesions Neurologic: alert and oriented X 3; 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; Sensation intact to light touch Psychiatric: normal affect Lymph Nodes: no palpable cervical, supraclavicular or inguinal nodes Lab Results Test Name Test Result Date/Time WBC 4.88 x10(9)/L 04/16/2024 04:00 CDT RBC 2.26 x10(12)/L (Low) 04/16/2024 04:00 CDT HGB 7.1 g/dL (Low) 04/16/2024 04:00 CDT HCT 21.7 % (Low) 04/16/2024 04:00 CDT MCV 96.0 fL (High) 04/16/2024 04:00 CDT MCH 31.4 pg 04/16/2024 04:00 CDT MCHC 32.7 g/dL 04/16/2024 04:00 CDT RDW SD 57.7 fL (High) 04/16/2024 04:00 CDT RDW CV 16.7 % (High) 04/16/2024 04:00 CDT PLT 124 x10(9)/L (Low) 04/16/2024 04:00 CDT MPV 9.1 04/16/2024 04:00 CDT % Neutrophils 90.8 % 04/16/2024 04:00 CDT Absolute Granulocytes 4.41 x10(9)/L 04/16/2024 04:00 CDT % Immature Granulocytes 0.80 % (High) 04/16/2024 04:00 CDT Abs Immature Granulocytes 0.04 x10(9)/L (High) 04/16/2024 04:00 CDT % Lymphocytes 6.6 % 04/16/2024 04:00 CDT Abs Lymphocytes 0.32 x10(9)/L (Low) 04/16/2024 04:00 CDT % Monocytes 0.8 % 04/16/2024 04:00 CDT Abs Monocytes 0.04 x10(9)/L (Low) 04/16/2024 04:00 CDT % Eosinophils 0.2 % 04/16/2024 04:00 CDT Abs Eosinophils 0.01 x10(9)/L (Low) 04/16/2024 04:00 CDT % Basophils 0.8 % 04/16/2024 04:00 CDT Abs Basophils 0.04 x10(9)/L 04/16/2024 04:00 CDT % Nucleated RBCs 0.0 % 04/16/2024 04:00 CDT Absolute Nucleated RBCs 0.0 x10(9)/L 04/16/2024 04:00 CDT RBC Morphology Present4 04/16/2024 04:00 CDT Anisocytosis 1 (10-20%) 04/16/2024 04:00 CDT Schistocytes 1 (Rare-3%) 04/16/2024 04:00 CDT Pappenheimer bodies Present4 04/16/2024 04:00 CDT Platelet Estimate Decreased3 04/16/2024 04:00 CDT Sodium 136 mmol/L 04/16/2024 04:00 CDT Potassium 3.4 mmol/L (Low) 04/16/2024 04:00 CDT Chloride 105 mmol/L 04/16/2024 04:00 CDT CO2 25 mmol/L 04/16/2024 04:00 CDT Anion gap 9 mmol/L 04/16/2024 04:00 CDT Glucose Lvl 106 mg/dL 04/16/2024 04:00 CDT BUN 15 mg/dL 04/16/2024 04:00 CDT Creatinine, standardized 0.4 mg/dL (Low) 04/16/2024 04:00 CDT Estimated GFR for Adults 152 mL/min/1.73m 04/16/2024 04:00 CDT Estimated GFR for peds Not calculated 04/16/2024 04:00 CDT Calcium 8.9 mg/dL 04/16/2024 04:00 CDT Total Protein 5.4 g/dL (Low) 04/16/2024 04:00 CDT Albumin 3.0 g/dL (Low) 04/16/2024 04:00 CDT T Bili 0.97 mg/dL 04/16/2024 04:00 CDT Alkaline Phosphatase 268 U/L (High) 04/16/2024 04:00 CDT AST-SGOT 59 U/L (High) 04/16/2024 04:00 CDT ALT-SGPT 145 U/L (High) 04/16/2024 04:00 CDT Diagnostic Results PRELIMINARY DIAGNOSIS (04/09/2024): 1. PERIPHERAL BLOOD, LUO S STAINED FILM: Macrocytic anemia, neutrophilia with left shift and monocytosis. 2. BONE MARROW, ASPIRATION AND BIOPSY: Hypercellular marrow (90%) with predominance of myeloids; No increse in blasts (1.4%); Negative for residual leukemia (ICC 2021) SITE: Right iliac crest ADEQUACY: Adequate 3. BONE MARROW, PARAFFIN IMMUNOPEROXIDASE STUDIES: No increase in blasts 4. BONE MARROW, FLOW CYTOMETRIC ANALYSIS: No abnormal B-cell precursor population is detected (MRD-negative); Predominant immature granulocyte population showing expression of CD56 identified; No mature B-cells detected; No phenotypically aberrant T-cell population or increase in blasts identified 5. BONE MARROW, CYTOGENETICS: Chromosome analysis shows a normal male karyotype, 46,XY[20] 6. BONE MARROW, MOLECULAR GENETIC STUDIES: B-ALL FISH is normal; ClonoSEQ pending ([facility]/rl04/08/24) ([facility]/rlb7) By this signature, I attest that the above diagnosis is based upon my personal examination of the tissue and slides (and/or other material indicated in the diagnosis), per policy. A resident was involved in the pathologic evaluation of this case, I have reviewed and edited the findings of the resident. Edward Kraft M.D. Electronically Signed Out [1] Assessment/Plan This is a 24-year-old male with a medical history significant for a presumed intellectual disability presented to as a direct admit from [facility] in [place], [place] over concerns for acute leukemia. The patient has been in the ER a few times this month with vague complaints of abdominal pain and back pain. At those visits, his lab work and imaging were unremarkable. Yesterday, he presented to the ED for epistaxis, where he lost an estimated 1 cup of blood. Routine labs were drawn, and significant derangements were noticed, including a Hgb of 6, platelet count of 64, WBC 66,000, elevated LFTs, uric acid of 8, and an LDH >8000. He was transferred from acute care ED to for for acute leukemia evaluation. - Initial labs were significant for WBC count 69.4 K, hemoglobin of 5 g/dl, platelet of 58 K, mildly prolonged PT, normal PTT, and fibrinogen levels. Additionally, the patient had hyperuricemia and hyperglycemia. No evidence of TLS. - Peripheral blood smear showed atypical mononuclear cells, most probably blasts, with no signs of Nancy rods. - An echocardiogram performed on 03/13/2024 showed left ventricular systolic function is hyperdynamic, with an ejection fraction >70%. Left ventricular diastolic function is normal. - Hepatitis panel is negative. HIV testing is negative. - MRI of the brain is negative for features indicative of TOWER EQUIPMENT INSTALLER involvement or acute intracranial abnormalities. 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 However, patient was unable to provide the sample. Heme/Onc fellow on service personally discussed this with Shena Costello, who is patient's sister and DPOA she agreed to proceed with treatment. - Cycle 1A Day 1 of hyper-CVAD (Part A) on 03/15/2024 to 03/18 with Neupogen support - Bone marrow biopsy done on 04/04/2024 before Cycle 1B; MRD negative, awaiting for clonal seq. 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 - Cycle 1B was initially postponed due to mild transaminitis. Started on 04/08/2024, proceed with day 4 of treatment. - IT chemo on 04/09 needs D7 IT on 04/15 (day 7 Monday, will plan for Monday day 10). Will follow-up CSF cytology without any evidence of malignant cells, flow cytometry is negative for blasts. - MTX level 0.05 normal - Daily CBC, CMP, and TLS labs (uric acid, phosphorus level, and LDH) - Provide supportive transfusions to keep hemoglobin above 7 g/dL and platelet count above 10 K - Strictly use irradiated blood products - Avoid using Tylenol and NSAIDs for pain control. - Maintain a low threshold to start empirical antibiotics if the patient develops fever or signs of infection. - Discussed with neurosurgery regarding optimal timing for placement of [place] reservoir, preferably immediately before the next cycle to avoid cytopenia. (Potential placement before Cycle 2A) (NSGY attending performing [place] reservoir is unavailable this week, recommend OP follow up for reservoir placement.) Will need to reschedule upon discharge to be before Cycle 2A. - Skin care team on board. - Received IT chemotherapy on 04/15/24 - Received SC filgrastim on 04/13/2024 - Received rituximab point 04/16/2024 [Upon discharge patient will need labs closer to home in [place], [place]]. Chemotherapy regimen Hyper-CVAD Chemotherapy, Part B Methotrexate 200 mg/m2 IV over 2 hours on Day 1 followed by 800 mg/m2; IV continuous infusion over 22 hours on Day 1 Cytarabine (age <60 years) 3,000 mg/mm2; IV over 3 hours every 12 hours for 4 doses on Days 2 and 3 Alkaline hydration is required pre- and post-administration of high-dose methotrexate. Leucovorin 50 mg IV over 15 minutes on Day 2 administered 12 hours after completion of 22-hour methotrexate infusion followed by 15 mg IV over 15 minutes or PO every 6 hours for at least 8 doses (until methotrexate serum concentration is <0.05 micromol/L) Leucovorin dose should be titrated for delayed methotrexate clearance. IT Chemotherapy - Methotrexate 12 mg intrathecal on Day 2 of Cycles 1B to 4A in future cycle day 1 - Cytarabine 100 mg intrathecal on Day 7 of Cycles 1B to 4A in the future cycle day 4 Supportive medications - Filgrastim (Neupogen) 5 mcg/kg SC once per day, starting 24 hours after completion of intensive courses of chemotherapy (day 5 for part A, day 4 for part B), given until ANC greater than 1000/uL VS outpatient Neulasta. -Prednisone eyedrops until 5 days. Antibiotic prophylaxis: - Acyclovir 400 mg PO BID While on treatment - Levaquin 500 mg PO daily while on treatment - Fluconazole 200 mg PO daily while on treatment - Bactrim DS PO MWF while on treatment Hold due to methotrexate Antibiotic prophylaxis on discharge: Acyclovir 400 mg PO BID, Levaquin 500 mg PO daily, Bactrim DS PO MWF and Fluconazole 200 mg PO daily. Elevated liver enzymes: Resolved Hypoalbuminemia - Ultrasound of the right upper quadrant obtained on 03/14/24 showed hepatomegaly with liver measuring up to 26 cm in cranial caudal dimension. Diffuse hepatic steatosis. Splenomegaly. Cholelithiasis without ultrasound evidence of acute cholecystitis. - CT abdomen and pelvis on 04/03 showed no acute infection. - 04/04: Liver enzymes stabilized. - Plan: - Levofloxacin on hold since 04/03. Liver enzymes stopped trending up and slightly better off levofloxacin. So, switched the patient to PO cefpodoxime 200 mg Q12. - HOLD Fluconazole in view of elevated LFTs until improvement. Low risk for fungal infections in setting of normal ANC. - Daily LFTs - Dose adjust medications to the patient's hepatic function - Avoid unnecessary hepatotoxic medications - CMV PCR in process. Dental caries Poor dentition - Panorex X-ray showed dental caries - Monitor for oral pain, bleeding or signs of dental abscess - 04/05: One of the front teeth broke off today. Intellectual disability Autism - PT/OT consult - Case management consult - Outpatient case management/care coordination Back pain Patient has pain at the site of LP. Recommend muscle relaxant Anemia: Patient is on hemoglobin 8 g/dL Recommend to transfuse hemoglobin goal to keep above 7 g/dL Upon discharge, patient can get twice weekly blood draw at [facility] in [place], [place]. . Ashley Valenzuela. Patient case discussed with attending, Dr.Xue Dinesh Vazquez MD PGY5, Hematology/ Medical Oncology [facility] [1] Histology [facility]; Swapnil BRISCOE, Edward Kennedy 04/04/2024 02:51 CDT Attestation by Miguelina Horne MD Patient was seen and examined on 04/16/24 with Fellow/Resident/POOJA, which included but was not limited to personally reviewing history, previous encounters within our healthcare system when available, external records when appropriate, performing the rush aspects of the exam, reviewing orders, providing education to the patient/caregiver, and documentation in the medical record. This excludes any procedure time that may have been performed. All occurred on date of service. I discussed the patient's management with the fellow Dr Vazquez. I reviewed the note by the fellow and agree with those documented findings and plan of care. 04/16/2024 Op/Procedure Note Procedure Attending Physician: Adrián Castellanos MD Service: Interventional Radiology Procedure Performed: 1. Image guided LP 2. _ 3. _ 4. _ 5. _ Conscious sedation for a total of 0 minutes. Sedatives used: [_] Versed [_] Fentanyl [_] Benadryl [_] Dilauded [X] Lidocaine with/without Epinephrine Procedure Performed By: Attending Physician: Adrián Castellanos MD Assisting: GINO Alcazar Description of Procedure Pre Op Diagnosis: B-ALL Post Op Diagnosis: B-ALL Location of Procedure: Radiology Informed Consent Obtained: Yes, Risk/Benefits discussed Monitoring During Procedure: [x] Blood Pressure Monitoring [x] Cardiac Monitoring [x] Continuous Pulse Oximetry [x] Heart Rate [x] Respiratory Rate Prep and Technique: Usual Standard Manner. Expediter Clerk Prep: [x] Cap, [x] Eye protection, [x] Mask, [x] Sterile gloves, [x] Sterile gowns. Patient Prep: [x] Prepped in sterile manner, [_] Prep solution +, [x] Draped in sterile manner. Anesthesia: IV Sedation: [_] Versed = _mg [_] Fentanyl = _mcg Local: 1% Lidocaine without Epinephrine Position of Patient: Prone Procedure Findings: Immediate Post Op Note: Successful LP with IT chemo administration without complication. Patient had low pressure so limited amount of fluid removed prior to chemo administration See radiology report when available for additional details. Complications: none. Condition: Stable Procedure Tolerated: Fair Estimated Blood Lost: Minimal Complications: None. Drains: None. Specimen: None. Attending Physician Present For: Entire Procedure 04/15/2024 Hem Oncology IM Consult Note Subjective - No major acute events overnight. Mr. Do was seen and examined at bedside today, he appears to be hemodynamically stable, generally feels well, and reports no complaints. Today savage day 7 of cycle 1B of hyper-CVAD chemotherapy and the patient continues to tolerate treatment very well. The patient denies any symptoms of fever, chills, productive cough, worsening shortness of breath, palpitations, orthopnea, or lower extremity edema. There are no complaints of skin itching, irritation, or new rashes. Furthermore, he denies experiencing nausea, vomiting, abdominal pain, diarrhea, or constipation. Review of Systems A complete 14 point review of systems was performed and is negative except as stated in the HPI. Objective Vitals and Measurements T: 36.7 C TMIN: 36.7 C TMAX: 36.8 C HR: 110 RR: 15 BP: 136/87 SpO2: 96% WT: 68.6 kg BMI: 17.9 Physical Exam Constitutional: no acute distress Eyes: sclera/conjunctiva clear; PERRL; EOMs intact Ears: Normal hearing; Mouth and Throat: pharynx clear; mucous membranes moist Cardiovascular: Regular rate and rhythm; normal S1 and S2 without murmur or gallop Respiratory: lungs clear Gastrointestinal: abdomen soft without hepatosplenomegaly, masses or tenderness; BS active Musculoskeletal: joints without deformity, erythema or warmth; able to move all 4 extremities against gravity Skin: no rashes or visible lesions Neurologic: alert and oriented X 3; 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; Sensation intact to light touch Psychiatric: normal affect Lymph Nodes: no palpable cervical, supraclavicular or inguinal nodes Lab Results Test Name Test Result Date/Time WBC 9.91 x10(9)/L 04/15/2024 04:00 CDT RBC 2.66 x10(12)/L (Low) 04/15/2024 04:00 CDT HGB 8.3 g/dL (Low) 04/15/2024 04:00 CDT HCT 25.9 % (Low) 04/15/2024 04:00 CDT MCV 97.4 fL (High) 04/15/2024 04:00 CDT MCH 31.2 pg 04/15/2024 04:00 CDT MCHC 32.0 g/dL 04/15/2024 04:00 CDT RDW SD 58.6 fL (High) 04/15/2024 04:00 CDT RDW CV 17.0 % (High) 04/15/2024 04:00 CDT PLT 205 x10(9)/L 04/15/2024 04:00 CDT MPV 9.2 04/15/2024 04:00 CDT Neuts Manual 93.0 % 04/15/2024 04:00 CDT Absolute Neutrophils Manual 9.22 x10(9)/L (High) 04/15/2024 04:00 CDT Lymphocytes Manual 6.0 % 04/15/2024 04:00 CDT Abs Lymphocytes Manual 0.59 x10(9)/L (Low) 04/15/2024 04:00 CDT Monocytes Manual 1.0 % 04/15/2024 04:00 CDT Abs Monocytes Manual 0.10 x10(9)/L (Low) 04/15/2024 04:00 CDT RBC Morphology Present4 04/15/2024 04:00 CDT Anisocytosis 1 (10-20%) 04/15/2024 04:00 CDT Schistocytes 1 (Rare-3%) 04/15/2024 04:00 CDT Platelet Estimate Adequate3 04/15/2024 04:00 CDT Sodium 135 mmol/L (Low) 04/15/2024 04:00 CDT Potassium 3.7 mmol/L 04/15/2024 04:00 CDT Chloride 102 mmol/L 04/15/2024 04:00 CDT CO2 26 mmol/L 04/15/2024 04:00 CDT Anion gap 11 mmol/L 04/15/2024 04:00 CDT Glucose Lvl 104 mg/dL 04/15/2024 04:00 CDT BUN 14 mg/dL 04/15/2024 04:00 CDT Creatinine, standardized 0.4 mg/dL (Low) 04/15/2024 04:00 CDT Estimated GFR for Adults 158 mL/min/1.73m 04/15/2024 04:00 CDT Estimated GFR for peds Not calculated 04/15/2024 04:00 CDT Calcium 9.2 mg/dL 04/15/2024 04:00 CDT Magnesium 1.65 mg/dL 04/15/2024 04:00 CDT Total Protein 5.9 g/dL 04/15/2024 04:00 CDT Albumin 3.2 g/dL (Low) 04/15/2024 04:00 CDT T Bili 1.30 mg/dL (High) 04/15/2024 04:00 CDT T Bili 1.30 mg/dL (High) 04/15/2024 04:00 CDT Direct Bilirubin 0.5 mg/dL (High) 04/15/2024 04:00 CDT Indirect Bilirubin 0.8 mg/dL 04/15/2024 04:00 CDT Alkaline Phosphatase 312 U/L (High) 04/15/2024 04:00 CDT AST-SGOT 99 U/L (High) 04/15/2024 04:00 CDT ALT-SGPT 206 U/L (High) 04/15/2024 04:00 CDT Diagnostic Results Assessment/Plan This is a 24-year-old male with a medical history significant for a presumed intellectual disability presented to as a direct admit from [facility] in [place], [place] over concerns for acute leukemia. The patient has been in the ER a few times this month with vague complaints of abdominal pain and back pain. At those visits, his lab work and imaging were unremarkable. Yesterday, he presented to the ED for epistaxis, where he lost an estimated 1 cup of blood. Routine labs were drawn, and significant derangements were noticed, including a Hgb of 6, platelet count of 64, WBC 66,000, elevated LFTs, uric acid of 8, and an LDH >8000. He was transferred from acute care ED to for for acute leukemia evaluation. - Initial labs were significant for WBC count 69.4 K, hemoglobin of 5 g/dl, platelet of 58 K, mildly prolonged PT, normal PTT, and fibrinogen levels. Additionally, the patient had hyperuricemia and hyperglycemia. No evidence of TLS. - Peripheral blood smear showed atypical mononuclear cells, most probably blasts, with no signs of Nancy rods. - An echocardiogram performed on 03/13/2024 showed left ventricular systolic function is hyperdynamic, with an ejection fraction >70%. Left ventricular diastolic function is normal. - Hepatitis panel is negative. HIV testing is negative. - MRI of the brain is negative for features indicative of TOWER EQUIPMENT INSTALLER involvement or acute intracranial abnormalities. 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 However, patient was unable to provide the sample. Heme/Onc fellow on service personally discussed this with Shena Costello, who is patient's sister and DPOA she agreed to proceed with treatment. - Cycle 1A Day 1 of hyper-CVAD (Part A) on 03/15/2024 to 03/18 with Neupogen support - Bone marrow biopsy done on 04/04/2024 before Cycle 1B, results pending. Flow cytometry from bone marrow aspirate without any evidence of blast, awaiting for clonal seq. 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 - Cycle 1B was initially postponed due to mild transaminitis. Started on 04/08/2024, proceed with day 4 of treatment. - IT chemo on 04/09 needs D7 IT on 04/15(day 7 Monday, will plan for Monday day 10). Will follow-up CSF cytology without any evidence of malignant cells, flow cytometry pending - MTX level 0.05 normal - Daily CBC, CMP, and TLS labs (uric acid, phosphorus level, and LDH) - Provide supportive transfusions to keep hemoglobin above 7 g/dL and platelet count above 10 K - Strictly use irradiated blood products - Avoid using Tylenol and NSAIDs for pain control. - Maintain a low threshold to start empirical antibiotics if the patient develops fever or signs of infection. - Discussed with neurosurgery regarding optimal timing for placement of [place] reservoir, preferably immediately before the next cycle to avoid cytopenia. (Potential placement before Cycle 2A) (NSGY attending performing [place] reservoir is unavailable this week, recommend OP follow up for reservoir placement.) Will need to reschedule upon discharge to be before Cycle 2A. - Skin care team on board. - Recommend IR consult for intrathecal chemotherapy on 04/15. - Will add filgrastim on 04/13. - Due to ongoing transaminitis, will reassess liver function and can add rituximab on 04/14 or 04/15. [Upon discharge patient will need labs closer to home in [place], [place]]. Chemotherapy regimen Hyper-CVAD Chemotherapy, Part B Methotrexate 200 mg/m2 IV over 2 hours on Day 1 followed by 800 mg/m2; IV continuous infusion over 22 hours on Day 1 Cytarabine (age <60 years) 3,000 mg/mm2; IV over 3 hours every 12 hours for 4 doses on Days 2 and 3 Alkaline hydration is required pre- and post-administration of high-dose methotrexate. Leucovorin 50 mg IV over 15 minutes on Day 2 administered 12 hours after completion of 22-hour methotrexate infusion followed by 15 mg IV over 15 minutes or PO every 6 hours for at least 8 doses (until methotrexate serum concentration is <0.05 micromol/L) Leucovorin dose should be titrated for delayed methotrexate clearance. IT Chemotherapy - Methotrexate 12 mg intrathecal on Day 2 of Cycles 1B to 4A in future cycle day 1 - Cytarabine 100 mg intrathecal on Day 7 of Cycles 1B to 4A in the future cycle day 4 Supportive medications - Filgrastim (Neupogen) 5 mcg/kg SC once per day, starting 24 hours after completion of intensive courses of chemotherapy (day 5 for part A, day 4 for part B), given until ANC greater than 1000/uL VS outpatient Neulasta. -Prednisone eyedrops until 5 days. Antibiotic prophylaxis: - Acyclovir 400 mg PO BID While on treatment - Levaquin 500 mg PO daily while on treatment - Fluconazole 200 mg PO daily while on treatment - Bactrim DS PO MWF while on treatment Hold due to methotrexate Antibiotic prophylaxis on discharge: Acyclovir 400 mg PO BID, Levaquin 500 mg PO daily, Bactrim DS PO MWF and Fluconazole 200 mg PO daily. Elevated liver enzymes: Resolved Hypoalbuminemia - Ultrasound of the right upper quadrant obtained on 03/14/24 showed hepatomegaly with liver measuring up to 26 cm in cranial caudal dimension. Diffuse hepatic steatosis. Splenomegaly. Cholelithiasis without ultrasound evidence of acute cholecystitis. - CT abdomen and pelvis on 04/03 showed no acute infection. - 04/04: Liver enzymes stabilized. - Plan: - Levofloxacin on hold since 04/03. Liver enzymes stopped trending up and slightly better off levofloxacin. So, switched the patient to PO cefpodoxime 200 mg Q12. - HOLD Fluconazole in view of elevated LFTs until improvement. Low risk for fungal infections in setting of normal ANC. - Daily LFTs - Dose adjust medications to the patient's hepatic function - Avoid unnecessary hepatotoxic medications - CMV PCR in process. Dental caries Poor dentition - Panorex X-ray showed dental caries - Monitor for oral pain, bleeding or signs of dental abscess - 04/05: One of the front teeth broke off today. Intellectual disability Autism - PT/OT consult - Case management consult - Outpatient case management/care coordination Back pain Patient has pain at the site of LP. Recommend muscle relaxant Anemia: Patient is on hemoglobin 8 g/dL Recommend to transfuse hemoglobin goal to keep above 7 g/dL Upon discharge, patient can get twice weekly blood draw at [facility] in [place], [place]. . [address] [place] [address] [place]. Patient case discussed with attending, Dr. Lin. Dinesh Vazquez MD PGY5, Hematology/ Medical Oncology [facility], [place] I personally saw and evaluated the patient on 04/15/24. I independently performed the critical/rush portions of the Evaluation and Management service and discussed the management with the author of this document. I agree with everything documented above except as may be indicated otherwise in my comments. Dr. Heike Barrientos has been in charge of the patient's chemotherapy plan and overall management of this case and receives regular updates about his patients including Mr. Do today and immediately as indicated. Jaden Lin MD/FACP Shannan Jimenez Echo Technologist of Clinical Medicine Distance Education Faculty Liaison for CONTINUOUS IMPROVEMENT LEAD and Chair of Breast DWG 04/15/2024 Hem Oncology IM Consult Note Subjective - No major acute events overnight. Mr. Do was seen and examined at bedside today, he appears to be hemodynamically stable, generally feels well, and reports no complaints. Today savage day 6 of cycle 1B of hyper-CVAD chemotherapy and the patient continues to tolerate treatment very well. The patient denies any symptoms of fever, chills, productive cough, worsening shortness of breath, palpitations, orthopnea, or lower extremity edema. There are no complaints of skin itching, irritation, or new rashes. Furthermore, he denies experiencing nausea, vomiting, abdominal pain, diarrhea, or constipation. Review of Systems A complete 14 point review of systems was performed and is negative except as stated in the HPI. Objective Vitals and Measurements T: 36.9 C TMIN: 36.8 C TMAX: 37 C HR: 109 RR: 16 BP: 129/68 SpO2: 98% WT: 71.6 kg BMI: 18.6 Physical Exam Constitutional: no acute distress Eyes: sclera/conjunctiva clear; PERRL; EOMs intact Ears: Normal hearing; Mouth and Throat: pharynx clear; mucous membranes moist Cardiovascular: Regular rate and rhythm; normal S1 and S2 without murmur or gallop Respiratory: lungs clear Gastrointestinal: abdomen soft without hepatosplenomegaly, masses or tenderness; BS active Musculoskeletal: joints without deformity, erythema or warmth; able to move all 4 extremities against gravity Skin: no rashes or visible lesions Neurologic: alert and oriented X 3; 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; Sensation intact to light touch Psychiatric: normal affect Lymph Nodes: no palpable cervical, supraclavicular or inguinal nodes Lab Results Test Name Test Result Date/Time WBC 39.97 x10(9)/L (High) 04/14/2024 05:13 CDT RBC 2.85 x10(12)/L (Low) 04/14/2024 05:13 CDT HGB 8.9 g/dL (Low) 04/14/2024 05:13 CDT HCT 27.4 % (Low) 04/14/2024 05:13 CDT MCV 96.1 fL (High) 04/14/2024 05:13 CDT MCH 31.2 pg 04/14/2024 05:13 CDT MCHC 32.5 g/dL 04/14/2024 05:13 CDT RDW SD 58.5 fL (High) 04/14/2024 05:13 CDT RDW CV 17.2 % (High) 04/14/2024 05:13 CDT PLT 275 x10(9)/L 04/14/2024 05:13 CDT MPV 9.0 04/14/2024 05:13 CDT Neuts Manual 100.0 % 04/14/2024 05:13 CDT Absolute Neutrophils Manual 39.97 x10(9)/L (High) 04/14/2024 05:13 CDT RBC Morphology Present4 04/14/2024 05:13 CDT Anisocytosis 1 (10-20%) 04/14/2024 05:13 CDT Schistocytes 1 (Rare-3%) 04/14/2024 05:13 CDT Platelet Estimate Adequate3 04/14/2024 05:13 CDT Sodium 134 mmol/L (Low) 04/14/2024 05:13 CDT Potassium 3.9 mmol/L 04/14/2024 05:13 CDT Chloride 101 mmol/L 04/14/2024 05:13 CDT CO2 27 mmol/L 04/14/2024 05:13 CDT Anion gap 10 mmol/L 04/14/2024 05:13 CDT Glucose Lvl 90 mg/dL 04/14/2024 05:13 CDT BUN 13 mg/dL 04/14/2024 05:13 CDT Creatinine, standardized 0.4 mg/dL (Low) 04/14/2024 05:13 CDT Estimated GFR for Adults 155 mL/min/1.73m 04/14/2024 05:13 CDT Estimated GFR for peds Not calculated 04/14/2024 05:13 CDT Calcium 9.1 mg/dL 04/14/2024 05:13 CDT Magnesium 1.64 mg/dL 04/14/2024 05:13 CDT Total Protein 5.8 g/dL 04/14/2024 05:13 CDT Albumin 3.2 g/dL (Low) 04/14/2024 05:13 CDT T Bili 1.45 mg/dL (High) 04/14/2024 05:13 CDT Alkaline Phosphatase 289 U/L (High) 04/14/2024 05:13 CDT AST-SGOT 174 U/L (High) 04/14/2024 05:13 CDT ALT-SGPT 257 U/L (High) 04/14/2024 05:13 CDT Assessment/Plan This is a 24-year-old male with a medical history significant for a presumed intellectual disability presented to as a direct admit from [facility] in [place], [place] over concerns for acute leukemia. The patient has been in the ER a few times this month with vague complaints of abdominal pain and back pain. At those visits, his lab work and imaging were unremarkable. Yesterday, he presented to the ED for epistaxis, where he lost an estimated 1 cup of blood. Routine labs were drawn, and significant derangements were noticed, including a Hgb of 6, platelet count of 64, WBC 66,000, elevated LFTs, uric acid of 8, and an LDH >8000. He was transferred from acute care ED to for for acute leukemia evaluation. - Initial labs were significant for WBC count 69.4 K, hemoglobin of 5 g/dl, platelet of 58 K, mildly prolonged PT, normal PTT, and fibrinogen levels. Additionally, the patient had hyperuricemia and hyperglycemia. No evidence of TLS. - Peripheral blood smear showed atypical mononuclear cells, most probably blasts, with no signs of Nancy rods. - An echocardiogram performed on 03/13/2024 showed left ventricular systolic function is hyperdynamic, with an ejection fraction >70%. Left ventricular diastolic function is normal. - Hepatitis panel is negative. HIV testing is negative. - MRI of the brain is negative for features indicative of TOWER EQUIPMENT INSTALLER involvement or acute intracranial abnormalities. 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 However, patient was unable to provide the sample. Heme/Onc fellow on service personally discussed this with Shena Costello, who is patient's sister and DPOA she agreed to proceed with treatment. - Cycle 1A Day 1 of hyper-CVAD (Part A) on 03/15/2024 to 03/18 with Neupogen support - Bone marrow biopsy done on 04/04/2024 before Cycle 1B, results pending. Flow cytometry from bone marrow aspirate without any evidence of blast, awaiting for clonal seq. 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 - Cycle 1B was initially postponed due to mild transaminitis. Started on 04/08/2024, proceed with day 4 of treatment. - IT chemo on 04/09 needs D7 IT on 04/15(day 7 Monday, will plan for Monday day 10). Will follow-up CSF cytology without any evidence of malignant cells, flow cytometry pending - MTX level 0.05 normal - Daily CBC, CMP, and TLS labs (uric acid, phosphorus level, and LDH) - Provide supportive transfusions to keep hemoglobin above 7 g/dL and platelet count above 10 K - Strictly use irradiated blood products - Avoid using Tylenol and NSAIDs for pain control. - Maintain a low threshold to start empirical antibiotics if the patient develops fever or signs of infection. - Discussed with neurosurgery regarding optimal timing for placement of [place] reservoir, preferably immediately before the next cycle to avoid cytopenia. (Potential placement before Cycle 2A) (NSGY attending performing [place] reservoir is unavailable this week, recommend OP follow up for reservoir placement.) Will need to reschedule upon discharge to be before Cycle 2A. - Skin care team on board. - Recommend IR consult for intrathecal chemotherapy on 04/15. - Will add filgrastim on 04/13. - Due to ongoing transaminitis, will reassess liver function and can add rituximab on 04/14 or 04/15. [Upon discharge patient will need labs closer to home in [place], [place]]. Chemotherapy regimen Hyper-CVAD Chemotherapy, Part B Methotrexate 200 mg/m2 IV over 2 hours on Day 1 followed by 800 mg/m2; IV continuous infusion over 22 hours on Day 1 Cytarabine (age <60 years) 3,000 mg/mm2; IV over 3 hours every 12 hours for 4 doses on Days 2 and 3 Alkaline hydration is required pre- and post-administration of high-dose methotrexate. Leucovorin 50 mg IV over 15 minutes on Day 2 administered 12 hours after completion of 22-hour methotrexate infusion followed by 15 mg IV over 15 minutes or PO every 6 hours for at least 8 doses (until methotrexate serum concentration is <0.05 micromol/L) Leucovorin dose should be titrated for delayed methotrexate clearance. IT Chemotherapy - Methotrexate 12 mg intrathecal on Day 2 of Cycles 1B to 4A in future cycle day 1 - Cytarabine 100 mg intrathecal on Day 7 of Cycles 1B to 4A in the future cycle day 4 Supportive medications - Filgrastim (Neupogen) 5 mcg/kg SC once per day, starting 24 hours after completion of intensive courses of chemotherapy (day 5 for part A, day 4 for part B), given until ANC greater than 1000/uL VS outpatient Neulasta. -Prednisone eyedrops until 5 days. Antibiotic prophylaxis: - Acyclovir 400 mg PO BID While on treatment - Levaquin 500 mg PO daily while on treatment - Fluconazole 200 mg PO daily while on treatment - Bactrim DS PO MWF while on treatment Hold due to methotrexate Antibiotic prophylaxis on discharge: Acyclovir 400 mg PO BID, Levaquin 500 mg PO daily, Bactrim DS PO MWF and Fluconazole 200 mg PO daily. Elevated liver enzymes: Resolved Hypoalbuminemia - Ultrasound of the right upper quadrant obtained on 03/14/24 showed hepatomegaly with liver measuring up to 26 cm in cranial caudal dimension. Diffuse hepatic steatosis. Splenomegaly. Cholelithiasis without ultrasound evidence of acute cholecystitis. - CT abdomen and pelvis on 04/03 showed no acute infection. - 04/04: Liver enzymes stabilized. - Plan: - Levofloxacin on hold since 04/03. Liver enzymes stopped trending up and slightly better off levofloxacin. So, switched the patient to PO cefpodoxime 200 mg Q12. - HOLD Fluconazole in view of elevated LFTs until improvement. Low risk for fungal infections in setting of normal ANC. - Daily LFTs - Dose adjust medications to the patient's hepatic function - Avoid unnecessary hepatotoxic medications - CMV PCR in process. Dental caries Poor dentition - Panorex X-ray showed dental caries - Monitor for oral pain, bleeding or signs of dental abscess - 04/05: One of the front teeth broke off today. Intellectual disability Autism - PT/OT consult - Case management consult - Outpatient case management/care coordination Back pain Patient has pain at the site of LP. Recommend muscle relaxant Anemia: Patient is on hemoglobin 8 g/dL Recommend to transfuse hemoglobin goal to keep above 7 g/dL Upon discharge, patient can get twice weekly blood draw at [facility] in [place], [place]. . [address] [place] [address]. Patient case discussed with attending, Dr. Lin. Dinesh Vazquez MD PGY5, Hematology/ Medical Oncology [facility] I personally saw and evaluated the patient on 04/14/24. I independently performed the critical/rush portions of the Evaluation and Management service and discussed the management with the author of this document. I agree with everything documented above except as may be indicated otherwise in my comments. Dr. Heike Barrientos has been in charge of the patient's chemotherapy plan and overall management of this case and receives regular updates about his patients including Mr. Do today and immediately as indicated. Jaden Lin MD/FACP Shannan Jimenez Echo Technologist of Clinical Medicine Distance Education Faculty Liaison for CONTINUOUS IMPROVEMENT LEAD and Chair of Breast DWG 04/14/2024 Hem Oncology IM Consult Note Subjective Patient seen and examined. Patient does have tenderness at the LP site. Denies any fever, chills. Objective Vitals and Measurements T: 36.4 C TMIN: 36.4 C TMAX: 36.7 C HR: 109 RR: 14 BP: 127/85 SpO2: 98% WT: 71.5 kg BMI: 18.6 Physical Exam General: Alert, no acute distress Cardiovascular: Regular rate and rhythm, normal peripheral perfusion, no edema Respiratory: respirations are non-labored Chest wall: Symmetric chest rise. No deformity. Back: Normal alignment mild tenderness at the LP site no evidence of bleeding or discharge. Musculoskeletal: No obvious deformities, no significant swelling. Full range of motion, normal strength throughout. Gastrointestinal: Nondistended Neurological: Alert and oriented to person, place, time, and situation. No focal deficits. Normal speech. Psychiatric: Cooperative. Lab Results CBC (04/13/24) WBC 5.83 Hgb L 8.0 Hct L 25.1 MCV H 96.5 PLT 325 Auto Differential % nRBC 0.3 Absolute nRBC 0.0 % Neutrophils 95.8 Absolute Neut 5.64 % Im Granulocyt H .70 Absolute Im Gra H 0.04 % Lymphocytes 2.0 % Monocytes 0.7 % Eosinophils 0.0 % Basophils 0.8 Comprehensive Metabolic Panel (04/13/24) Na+ 136 K+ 4.0 Cl- 102 CO2 27 Anion gap 11 GLU 88 BUN 13 Creat L 0.4 Estimated GFR f 156 Estimated GFR f Not calculated Ca 8.5 Alk Phos H 263 AST H 200 ALT H 220 T Bili 0.87 Total Protein L 5.4 Alb L 2.9 Hemolysis Index 0 Icteria Index 0 Lipemia Index 0 Diagnostic Results Assessment/Plan 24-year-old male with a medical history significant for a presumed intellectual disability presented to as a direct admit from [facility] in [place], [place] over concerns for acute leukemia. The patient has been in the ER a few times this month with vague complaints of abdominal pain and back pain. At those visits, his lab work and imaging were unremarkable. Yesterday, he presented to the ED for epistaxis, where he lost an estimated 1 cup of blood. Routine labs were drawn, and significant derangements were noticed, including a Hgb of 6, platelet count of 64, WBC 66,000, elevated LFTs, uric acid of 8, and an LDH >8000. He was transferred from acute care ED to for for acute leukemia evaluation. - Initial labs were significant for WBC count 69.4 K, hemoglobin of 5 g/dl, platelet of 58 K, mildly prolonged PT, normal PTT, and fibrinogen levels. Additionally, the patient had hyperuricemia and hyperglycemia. No evidence of TLS. - Peripheral blood smear showed atypical mononuclear cells, most probably blasts, with no signs of Nancy rods. - An echocardiogram performed on 03/13/2024 showed left ventricular systolic function is hyperdynamic, with an ejection fraction >70%. Left ventricular diastolic function is normal. - Hepatitis panel is negative. HIV testing is negative. - MRI of the brain is negative for features indicative of TOWER EQUIPMENT INSTALLER involvement or acute intracranial abnormalities. 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 However, patient was unable to provide the sample. Heme/Onc fellow on service personally discussed this with Shena Costello, who is patient's sister and DPOA she agreed to proceed with treatment. - Cycle 1A Day 1 of hyper-CVAD (Part A) on 03/15/2024 to 03/18 with Neupogen support - Bone marrow biopsy done on 04/04/2024 before Cycle 1B, results pending. Flow cytometry from bone marrow aspirate without any evidence of blast, Awating for clonal seq. 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 - Cycle 1B was initially postponed due to mild transaminitis. Started on 04/08/2024, proceed with day 4 of treatment. - IT chemo on 04/09 needs D7 IT on 04/15(day 7 Monday, will plan for Monday day 10). Will follow-up CSF cytology without any evidence of malignant cells, flow cytometry pending - MTX level 0.05 normal - Daily CBC, CMP, and TLS labs (uric acid, phosphorus level, and LDH) - Provide supportive transfusions to keep hemoglobin above 7 g/dL and platelet count above 10 K - Strictly use irradiated blood products - Avoid using Tylenol and NSAIDs for pain control. - Maintain a low threshold to start empirical antibiotics if the patient develops fever or signs of infection. - Discussed with neurosurgery regarding optimal timing for placement of [place] reservoir, preferably immediately before the next cycle to avoid cytopenia. (Potential placement before Cycle 2A) (NSGY attending performing [place] reservoir is unavailable this week, recommend OP follow up for reservoir placement.) Will need to reschedule upon discharge to be before Cycle 2A. - Skin care team on board. - Recommend IR consult for intrathecal chemotherapy on 04/15. - Will add filgrastim on 04/13. -Due to ongoing transaminitis, will reassess liver function and can add rituximab on 04/14 or 04/15. [Upon discharge patient will need labs closer to home in [place], [place]]. Chemotherapy regimen Hyper-CVAD Chemotherapy, Part B Methotrexate 200 mg/m2 IV over 2 hours on Day 1 followed by 800 mg/m2; IV continuous infusion over 22 hours on Day 1 Cytarabine (age <60 years) 3,000 mg/mm2; IV over 3 hours every 12 hours for 4 doses on Days 2 and 3 Alkaline hydration is required pre- and post-administration of high-dose methotrexate. Leucovorin 50 mg IV over 15 minutes on Day 2 administered 12 hours after completion of 22-hour methotrexate infusion followed by 15 mg IV over 15 minutes or PO every 6 hours for at least 8 doses (until methotrexate serum concentration is <0.05 micromol/L) Leucovorin dose should be titrated for delayed methotrexate clearance. IT Chemotherapy Methotrexate 12 mg intrathecal on Day 2 of Cycles 1B to 4A in future cycle day 1 Cytarabine 100 mg intrathecal on Day 7 of Cycles 1B to 4A in the future cycle day 4 Supportive medications - Filgrastim (Neupogen) 5 mcg/kg SC once per day, starting 24 hours after completion of intensive courses of chemotherapy (day 5 for part A, day 4 for part B), given until ANC greater than 1000/uL VS outpatient Neulasta. -Prednisone eyedrops until 5 days. Antibiotic prophylaxis: - Acyclovir 400 mg PO BID ​While on treatment - Levaquin 500 mg PO daily while on treatment - Fluconazole 200 mg PO daily while on treatment - Bactrim DS PO MWF while on treatment Hold due to methotrexate Antibiotic prophylaxis on discharge: Acyclovir 400 mg PO BID, Levaquin 500 mg PO daily, Bactrim DS PO MWF and Fluconazole 200 mg PO daily. Elevated liver enzymes: Resolved Hypoalbuminemia - Ultrasound of the right upper quadrant obtained on 03/14/24 showed hepatomegaly with liver measuring up to 26 cm in cranial caudal dimension. Diffuse hepatic steatosis. Splenomegaly. Cholelithiasis without ultrasound evidence of acute cholecystitis. - CT abdomen and pelvis on 04/03 showed no acute infection. - 04/04: Liver enzymes stabilized. - Plan: Levofloxacin on hold since 04/03. Liver enzymes stopped trending up and slightly better off levofloxacin. So, switched the patient to PO cefpodoxime 200 mg Q12. HOLD Fluconazole in view of elevated LFTs until improvement. Low risk for fungal infections in setting of normal ANC. Daily LFTs Dose adjust medications to the patient's hepatic function Avoid unnecessary hepatotoxic medications CMV PCR in process. Dental caries Poor dentition - Panorex X-ray showed dental caries - Monitor for oral pain, bleeding or signs of dental abscess - 04/05: One of the front teeth broke off today. Intellectual disability Autism - PT/OT consult - Case management consult - Outpatient case management/care coordination Back pain Patient has pain at the site of LP. Recommend muscle relaxant Anemia: Patient is on hemoglobin 8 g/dL Recommend to transfuse hemoglobin goal to keep above 7 g/dL Upon discharge, patient can get twice weekly blood draw at [facility] in [place], [place]. . [address] [place] [address] [place]. Patient case discussed with attending, Dr. Lin. I personally saw and evaluated the patient on 04/13/24. I independently performed the critical/rush portions of the Evaluation and Management service and discussed the management with the author of this document. I agree with everything documented above except as may be indicated otherwise in my comments. Dr. Barrientos has been in charge of the patient's chemotherapy plan and overall management of this case and receives regular updates about his patients including about Mr. Do today and immediately as indicated. Jaden Lin MD/FACP Shannan Jimenez Echo Technologist of Clinical Medicine Distance Education Faculty Liaison for CONTINUOUS IMPROVEMENT LEAD and Chair of Breast DWG 04/13/2024 Hem Oncology IM Consult Note Subjective Patient seen and examined. Patient complained of back pain at the site of LP. Patient denies any fever chills. There is no evidence of bleeding at the site of spinal site as well. Denies any numbness tingling sensation. Objective Vitals and Measurements T: 36.8 C TMIN: 36.7 C TMAX: 37 C HR: 100 RR: 16 BP: 132/76 SpO2: 98% WT: 71.6 kg BMI: 18.6 Physical Exam General: Alert, no acute distress Cardiovascular: Regular rate and rhythm, normal peripheral perfusion, no edema Respiratory: respirations are non-labored Chest wall: Symmetric chest rise. No deformity. Back: Normal alignment Musculoskeletal: No obvious deformities, no significant swelling. Full range of motion, normal strength throughout. Gastrointestinal: Nondistended Neurological: Alert and oriented to person, place, time, and situation. No focal deficits. Normal speech. Psychiatric: Cooperative. Lab Results CBC (04/12/24) WBC 8.64 Hgb L 9.0 Hct L 27.6 MCV H 96.5 PLT 393 Auto Differential % nRBC 0.3 Absolute nRBC 0.0 % Neutrophils 96.9 Absolute Neut H 8.37 % Im Granulocyt H .50 Absolute Im Gra H 0.04 % Lymphocytes 0.9 % Monocytes 1.4 % Eosinophils 0.1 % Basophils 0.2 Comprehensive Metabolic Panel (04/12/24) Na+ 137 K+ 4.1 Cl- 102 CO2 29 Anion gap 10 GLU 129 BUN 10 Creat L 0.4 Estimated GFR f 155 Estimated GFR f Not calculated Ca 9.0 Alk Phos H 313 AST H 128 ALT H 149 T Bili 0.78 Total Protein 6.1 Alb L 3.3 Hemolysis Index 0 Icteria Index 0 Lipemia Index 0 Diagnostic Results Assessment/Plan 24-year-old male with a medical history significant for a presumed intellectual disability presented to as a direct admit from [facility] in [place], [place] over concerns for acute leukemia. The patient has been in the ER a few times this month with vague complaints of abdominal pain and back pain. At those visits, his lab work and imaging were unremarkable. Yesterday, he presented to the ED for epistaxis, where he lost an estimated 1 cup of blood. Routine labs were drawn, and significant derangements were noticed, including a Hgb of 6, platelet count of 64, WBC 66,000, elevated LFTs, uric acid of 8, and an LDH >8000. He was transferred from acute care ED to for for acute leukemia evaluation. - Initial labs were significant for WBC count 69.4 K, hemoglobin of 5 g/dl, platelet of 58 K, mildly prolonged PT, normal PTT, and fibrinogen levels. Additionally, the patient had hyperuricemia and hyperglycemia. No evidence of TLS. - Peripheral blood smear showed atypical mononuclear cells, most probably blasts, with no signs of Nancy rods. - An echocardiogram performed on 03/13/2024 showed left ventricular systolic function is hyperdynamic, with an ejection fraction >70%. Left ventricular diastolic function is normal. - Hepatitis panel is negative. HIV testing is negative. - MRI of the brain is negative for features indicative of TOWER EQUIPMENT INSTALLER involvement or acute intracranial abnormalities. 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 However, patient was unable to provide the sample. Heme/Onc fellow on service personally discussed this with Shena Costello, who is patient's sister and DPOA she agreed to proceed with treatment. - Cycle 1A Day 1 of hyper-CVAD (Part A) on 03/15/2024 to 03/18 with Neupogen support - Bone marrow biopsy done on 04/04/2024 before Cycle 1B, results pending. Flow cytometry from bone marrow aspirate without any evidence of blast. 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 - Cycle 1B was initially postponed due to mild transaminitis. Started on 04/08/2024, proceed with day 4 of treatment. - IT chemo on 04/09 needs D7 IT on 04/15(day 7 Monday, will plan for Monday day 10). Will follow-up CSF cytology still in process. - MTX level 0.05 normal - Daily CBC, CMP, and TLS labs (uric acid, phosphorus level, and LDH) - Provide supportive transfusions to keep hemoglobin above 7 g/dL and platelet count above 10 K - Strictly use irradiated blood products - Avoid using Tylenol and NSAIDs for pain control. - Maintain a low threshold to start empirical antibiotics if the patient develops fever or signs of infection. - Discussed with neurosurgery regarding optimal timing for placement of [place] reservoir, preferably immediately before the next cycle to avoid cytopenia. (Potential placement before Cycle 2A) (NSGY attending performing [place] reservoir is unavailable this week, recommend OP follow up for reservoir placement.) Will need to reschedule upon discharge to be before Cycle 2A. - Skin care team on board. - Recommend IR consult for intrathecal chemotherapy on 04/15. - Will add filgrastim on 04/13. [Upon discharge patient will need labs closer to home in [place], [place]]. Chemotherapy regimen Hyper-CVAD Chemotherapy, Part B Methotrexate 200 mg/m2 IV over 2 hours on Day 1 followed by 800 mg/m2; IV continuous infusion over 22 hours on Day 1 Cytarabine (age <60 years) 3,000 mg/mm2; IV over 3 hours every 12 hours for 4 doses on Days 2 and 3 Alkaline hydration is required pre- and post-administration of high-dose methotrexate. Leucovorin 50 mg IV over 15 minutes on Day 2 administered 12 hours after completion of 22-hour methotrexate infusion followed by 15 mg IV over 15 minutes or PO every 6 hours for at least 8 doses (until methotrexate serum concentration is <0.05 micromol/L) Leucovorin dose should be titrated for delayed methotrexate clearance. IT Chemotherapy Methotrexate 12 mg intrathecal on Day 2 of Cycles 1B to 4A in future cycle day 1 Cytarabine 100 mg intrathecal on Day 7 of Cycles 1B to 4A in the future cycle day 4 Supportive medications - Filgrastim (Neupogen) 5 mcg/kg SC once per day, starting 24 hours after completion of intensive courses of chemotherapy (day 5 for part A, day 4 for part B), given until ANC greater than 1000/uL VS outpatient Neulasta. -Prednisone eyedrops until 5 days. Antibiotic prophylaxis: - Acyclovir 400 mg PO BID While on treatment - Levaquin 500 mg PO daily while on treatment - Fluconazole 200 mg PO daily while on treatment - Bactrim DS PO MWF while on treatment Hold due to methotrexate Antibiotic prophylaxis on discharge: Acyclovir 400 mg PO BID, Levaquin 500 mg PO daily, Bactrim DS PO MWF and Fluconazole 200 mg PO daily. Elevated liver enzymes: Resolved Hypoalbuminemia - Ultrasound of the right upper quadrant obtained on 03/14/24 showed hepatomegaly with liver measuring up to 26 cm in cranial caudal dimension. Diffuse hepatic steatosis. Splenomegaly. Cholelithiasis without ultrasound evidence of acute cholecystitis. - CT abdomen and pelvis on 04/03 showed no acute infection. - 04/04: Liver enzymes stabilized. - Plan: Levofloxacin on hold since 04/03. Liver enzymes stopped trending up and slightly better off levofloxacin. So, switched the patient to PO cefpodoxime 200 mg Q12. HOLD Fluconazole in view of elevated LFTs until improvement. Low risk for fungal infections in setting of normal ANC. Daily LFTs Dose adjust medications to the patient's hepatic function Avoid unnecessary hepatotoxic medications CMV PCR in process. Dental caries Poor dentition - Panorex X-ray showed dental caries - Monitor for oral pain, bleeding or signs of dental abscess - 04/05: One of the front teeth broke off today. Intellectual disability Autism - PT/OT consult - Case management consult - Outpatient case management/care coordination Back pain Patient has pain at the site of LP. Recommend muscle relaxant Upon discharge, patient can get twice weekly blood draw at [facility] in [place], [place]. . [address] [place] [address] Bianca. Patient case discussed with attending, Dr. Lin. I personally saw and evaluated the patient on 04/12/24. I independently performed the critical/rush portions of the Evaluation and Management service and discussed the management with the author of this document. I agree with everything documented above except as may be indicated otherwise in my comments. Dr. Heike Barrientos has been in charge of the patient's chemotherapy plan and overall management of this case and receives regular updates about his patients including Mr. Do's today and immediately as indicated. Jaden Lin MD/FACP [facility]ann[facility] Jim[facility] Echo Technologist of Clinical Medicine Distance Education Faculty Liaison for CONTINUOUS IMPROVEMENT LEAD and Chair of Breast DWG 04/12/2024 Hem Oncology IM Consult Note Subjective Patient seen and examined. Patient is currently tolerating treatment. Denies abdominal pain, nausea, vomiting. Objective Vitals and Measurements T: 36.8 C TMIN: 36.6 C TMAX: 36.9 C HR: 107 RR: 18 BP: 124/61 SpO2: 99% WT: 73.3 kg BMI: 19.1 Physical Exam General: Alert, no acute distress, dental caries Cardiovascular: Regular rate and rhythm, normal peripheral perfusion, no edema Respiratory: respirations are non-labored Chest wall: Symmetric chest rise. No deformity. Back: Normal alignment Musculoskeletal: No obvious deformities, no significant swelling. Full range of motion, normal strength throughout. Gastrointestinal: Nondistended Neurological: Alert and oriented to person, place, time, and situation. No focal deficits. Normal speech. Psychiatric: Cooperative. Lab Results CBC (04/11/24) WBC H 12.75 Hgb L 8.8 Hct L 27.2 MCV H 98.2 PLT 396 Comprehensive Metabolic Panel (04/11/24) Na+ 138 K+ 4.2 Cl- 103 CO2 29 Anion gap 10 GLU 132 BUN 11 Creat L 0.4 Estimated GFR f 159 Estimated GFR f Not calculated Ca 8.7 Alk Phos H 364 AST H 68 ALT H 93 T Bili 0.54 Total Protein L 5.5 Alb L 2.8 Hemolysis Index 0 Icteria Index 0 Lipemia Index 0 Diagnostic Results Assessment/Plan 24-year-old male with a medical history significant for a presumed intellectual disability presented to as a direct admit from [facility] in [place], [place] over concerns for acute leukemia. The patient has been in the ER a few times this month with vague complaints of abdominal pain and back pain. At those visits, his lab work and imaging were unremarkable. Yesterday, he presented to the ED for epistaxis, where he lost an estimated 1 cup of blood. Routine labs were drawn, and significant derangements were noticed, including a Hgb of 6, platelet count of 64, WBC 66,000, elevated LFTs, uric acid of 8, and an LDH >8000. He was transferred from acute care ED to for for acute leukemia evaluation. - Initial labs were significant for WBC count 69.4 K, hemoglobin of 5 g/dl, platelet of 58 K, mildly prolonged PT, normal PTT, and fibrinogen levels. Additionally, the patient had hyperuricemia and hyperglycemia. No evidence of TLS. - Peripheral blood smear showed atypical mononuclear cells, most probably blasts, with no signs of Nancy rods. - An echocardiogram performed on 03/13/2024 showed left ventricular systolic function is hyperdynamic, with an ejection fraction >70%. Left ventricular diastolic function is normal. - Hepatitis panel is negative. HIV testing is negative. - MRI of the brain is negative for features indicative of TOWER EQUIPMENT INSTALLER involvement or acute intracranial abnormalities. 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 However, patient was unable to provide the sample. Heme/Onc fellow on service personally discussed this with Shena Costello, who is patient's sister and DPOA she agreed to proceed with treatment. - Cycle 1A Day 1 of hyper-CVAD (Part A) on 03/15/2024 to 03/18 with Neupogen support - Bone marrow biopsy done on 04/04/2024 before Cycle 1B, results pending. Flow cytometry from bone marrow aspirate without any evidence of blast. 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 - Cycle 1B was initially postponed due to mild transaminitis. Started on 04/08/2024, proceed with day 4 of treatment. - IT chemo on 04/09 needs D7 IT on 04/15(day 7 Monday, will plan for Monday day 10). Will follow-up CSF cytology. - MTX level post infusion Q24hrs. - Daily CBC, CMP, and TLS labs (uric acid, phosphorus level, and LDH) - Provide supportive transfusions to keep hemoglobin above 7 g/dL and platelet count above 10 K - Strictly use irradiated blood products - Avoid using Tylenol and NSAIDs for pain control. - Maintain a low threshold to start empirical antibiotics if the patient develops fever or signs of infection. - Discussed with neurosurgery regarding optimal timing for placement of [place] reservoir, preferably immediately before the next cycle to avoid cytopenia. (Potential placement before Cycle 2A) (NSGY attending performing [place] reservoir is unavailable this week, recommend OP follow up for reservoir placement.) Will need to reschedule upon discharge to be before Cycle 2A. - Skin care team on board. - Recommend IR consult for intrathecal chemotherapy on 04/15. - Will add filgrastim on 04/13. [Upon discharge patient will need labs closer to home in [place], [place]]. Chemotherapy regimen Hyper-CVAD Chemotherapy, Part B Methotrexate 200 mg/m2 IV over 2 hours on Day 1 followed by 800 mg/m2; IV continuous infusion over 22 hours on Day 1 Cytarabine (age <60 years) 3,000 mg/mm2; IV over 3 hours every 12 hours for 4 doses on Days 2 and 3 Alkaline hydration is required pre- and post-administration of high-dose methotrexate. Leucovorin 50 mg IV over 15 minutes on Day 2 administered 12 hours after completion of 22-hour methotrexate infusion followed by 15 mg IV over 15 minutes or PO every 6 hours for at least 8 doses (until methotrexate serum concentration is <0.05 micromol/L) Leucovorin dose should be titrated for delayed methotrexate clearance. IT Chemotherapy Methotrexate 12 mg intrathecal on Day 2 of Cycles 1B to 4A in future cycle day 1 Cytarabine 100 mg intrathecal on Day 7 of Cycles 1B to 4A in the future cycle day 4 Supportive medications - Filgrastim (Neupogen) 5 mcg/kg SC once per day, starting 24 hours after completion of intensive courses of chemotherapy (day 5 for part A, day 4 for part B), given until ANC greater than 1000/uL VS outpatient Neulasta. -Prednisone eyedrops until 5 days. Antibiotic prophylaxis: - Acyclovir 400 mg PO BID While on treatment - Levaquin 500 mg PO daily while on treatment - Fluconazole 200 mg PO daily while on treatment - Bactrim DS PO MWF while on treatment Hold due to methotrexate Antibiotic prophylaxis on discharge: Acyclovir 400 mg PO BID, Levaquin 500 mg PO daily, Bactrim DS PO MWF and Fluconazole 200 mg PO daily. Elevated liver enzymes: Resolved Hypoalbuminemia - Ultrasound of the right upper quadrant obtained on 03/14/24 showed hepatomegaly with liver measuring up to 26 cm in cranial caudal dimension. Diffuse hepatic steatosis. Splenomegaly. Cholelithiasis without ultrasound evidence of acute cholecystitis. - CT abdomen and pelvis on 04/03 showed no acute infection. - 04/04: Liver enzymes stabilized. - Plan: Levofloxacin on hold since 04/03. Liver enzymes stopped trending up and slightly better off levofloxacin. So, switched the patient to PO cefpodoxime 200 mg Q12. HOLD Fluconazole in view of elevated LFTs until improvement. Low risk for fungal infections in setting of normal ANC. Daily LFTs Dose adjust medications to the patient's hepatic function Avoid unnecessary hepatotoxic medications CMV PCR in process. Dental caries Poor dentition - Panorex X-ray showed dental caries - Monitor for oral pain, bleeding or signs of dental abscess - 04/05: One of the front teeth broke off today. Intellectual disability Autism - PT/OT consult - Case management consult - Outpatient case management/care coordination Upon discharge, patient can get twice weekly blood draw at [facility] in [place], [place]. . [address] [place] [address]. Patient case discussed with attending, Dr. Lin. I personally saw and evaluated the patient on 04/11/24. I independently performed the critical/rush portions of the Evaluation and Management service and discussed the management with the author of this document. I agree with everything documented above except as may be indicated otherwise in my comments. Dr. Barrientos has been in charge of the patient's chemotherapy plan and overall management of this case and receives regular updates about his patients including Mr. Do's today and immediately as indicated. Jaden Lin MD/FACP Shannan Jimenez Echo Technologist of Clinical Medicine Distance Education Faculty Liaison for CONTINUOUS IMPROVEMENT LEAD and Chair of Breast DWG 04/11/2024 Hem Oncology IM Consult Note Subjective Patient seen and examined. Patient denies any headache, nausea, vomiting. Patient denies any chest pain, shortness of breath, palpitations. Objective Vitals and Measurements T: 36.8 C TMIN: 36.4 C TMAX: 36.8 C HR: 103 RR: 16 BP: 131/82 SpO2: 97% WT: 72.6 kg Physical Exam General: Alert, no acute distress Cardiovascular: Regular rate and rhythm, normal peripheral perfusion, no edema Respiratory: respirations are non-labored Chest wall: Symmetric chest rise. No deformity. Back: Normal alignment Musculoskeletal: No obvious deformities, no significant swelling. Full range of motion, normal strength throughout. Gastrointestinal: Nondistended Neurological: Alert and oriented to person, place, time, and situation. No focal deficits. Normal speech. Psychiatric: Cooperative. Lab Results CBC (04/10/24) WBC H 12.77 Hgb L 8.2 Hct L 25.9 MCV H 97.7 PLT 372 Auto Differential % nRBC 0.3 Absolute nRBC 0.0 % Neutrophils 70.1 Absolute Neut H 8.96 % Im Granulocyt H 4.20 Absolute Im Gra H 0.53 % Lymphocytes 5.9 % Monocytes 18.7 % Eosinophils 0.0 % Basophils 1.1 Comprehensive Metabolic Panel (04/10/24) Na+ 143 K+ L 2.9 Cl- 102 CO2 H 33 Anion gap 11 GLU 119 BUN L <5 Creat L 0.4 Estimated GFR f 153 Estimated GFR f Not calculated Ca 8.4 Alk Phos H 385 AST H 58 ALT H 73 T Bili 0.54 Total Protein L 5.3 Alb L 2.8 Hemolysis Index 0 Icteria Index 0 Lipemia Index 0 Diagnostic Results Assessment/Plan 24-year-old male with a medical history significant for a presumed intellectual disability presented to as a direct admit from [facility] in [place], [place] over concerns for acute leukemia. The patient has been in the ER a few times this month with vague complaints of abdominal pain and back pain. At those visits, his lab work and imaging were unremarkable. Yesterday, he presented to the ED for epistaxis, where he lost an estimated 1 cup of blood. Routine labs were drawn, and significant derangements were noticed, including a Hgb of 6, platelet count of 64, WBC 66,000, elevated LFTs, uric acid of 8, and an LDH >8000. He was transferred from acute care ED to for for acute leukemia evaluation. - Initial labs were significant for WBC count 69.4 K, hemoglobin of 5 g/dl, platelet of 58 K, mildly prolonged PT, normal PTT, and fibrinogen levels. Additionally, the patient had hyperuricemia and hyperglycemia. No evidence of TLS. - Peripheral blood smear showed atypical mononuclear cells, most probably blasts, with no signs of Nancy rods. - An echocardiogram performed on 03/13/2024 showed left ventricular systolic function is hyperdynamic, with an ejection fraction >70%. Left ventricular diastolic function is normal. - Hepatitis panel is negative. HIV testing is negative. - MRI of the brain is negative for features indicative of TOWER EQUIPMENT INSTALLER involvement or acute intracranial abnormalities. 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 However, patient was unable to provide the sample. Heme/Onc fellow on service personally discussed this with Shena Costello, who is patient's sister and DPOA she agreed to proceed with treatment. - Cycle 1A Day 1 of hyper-CVAD (Part A) on 03/15/2024 to 03/18 with Neupogen support - Bone marrow biopsy done on 04/04/2024 before Cycle 1B, results pending. Flow cytometry from bone marrow aspirate without any evidence of blast. 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 - Cycle 1B was initially postponed due to mild transaminitis. Started on 04/08/2024, proceed with day 3 of treatment. - IT chemo on 04/09 needs D7 IT on 04/15(day 7 Monday, will plan for Monday day 10). Will follow-up CSF cytology. - MTX level post infusion Q24hrs. - Daily CBC, CMP, and TLS labs (uric acid, phosphorus level, and LDH) - Provide supportive transfusions to keep hemoglobin above 7 g/dL and platelet count above 10 K - Strictly use irradiated blood products - Avoid using Tylenol and NSAIDs for pain control. - Maintain a low threshold to start empirical antibiotics if the patient develops fever or signs of infection. - Discussed with neurosurgery regarding optimal timing for placement of [place] reservoir, preferably immediately before the next cycle to avoid cytopenia. (Potential placement before Cycle 2A) (NSGY attending performing [place] reservoir is unavailable this week, recommend OP follow up for reservoir placement.) Will need to reschedule upon discharge to be before Cycle 2A. - Skin care team on board. -Recommend IR consult [Upon discharge patient will need labs closer to home in [place], [place]]. Chemotherapy regimen Hyper-CVAD Chemotherapy, Part B Methotrexate 200 mg/m2 IV over 2 hours on Day 1 followed by 800 mg/m2; IV continuous infusion over 22 hours on Day 1 Cytarabine (age <60 years) 3,000 mg/mm2; IV over 3 hours every 12 hours for 4 doses on Days 2 and 3 Alkaline hydration is required pre- and post-administration of high-dose methotrexate. Leucovorin 50 mg IV over 15 minutes on Day 2 administered 12 hours after completion of 22-hour methotrexate infusion followed by 15 mg IV over 15 minutes or PO every 6 hours for at least 8 doses (until methotrexate serum concentration is <0.05 micromol/L) Leucovorin dose should be titrated for delayed methotrexate clearance. IT Chemotherapy Methotrexate 12 mg intrathecal on Day 2 of Cycles 1B to 4A in future cycle day 1 Cytarabine 100 mg intrathecal on Day 7 of Cycles 1B to 4A in the future cycle day 4 Supportive medications - Filgrastim (Neupogen) 5 mcg/kg SC once per day, starting 24 hours after completion of intensive courses of chemotherapy (day 5 for part A, day 4 for part B), given until ANC greater than 1000/uL VS outpatient Neulasta. -Prednisone eyedrops until 5 days. Antibiotic prophylaxis: - Acyclovir 400 mg PO BID While on treatment - Levaquin 500 mg PO daily while on treatment - Fluconazole 200 mg PO daily while on treatment - Bactrim DS PO MWF while on treatment Hold due to methotrexate Antibiotic prophylaxis on discharge: Acyclovir 400 mg PO BID, Levaquin 500 mg PO daily, Bactrim DS PO MWF and Fluconazole 200 mg PO daily. Elevated liver enzymes: Resolved Hypoalbuminemia - Ultrasound of the right upper quadrant obtained on 03/14/24 showed hepatomegaly with liver measuring up to 26 cm in cranial caudal dimension. Diffuse hepatic steatosis. Splenomegaly. Cholelithiasis without ultrasound evidence of acute cholecystitis. - CT abdomen and pelvis on 04/03 showed no acute infection. - 04/04: Liver enzymes stabilized. - Plan: Levofloxacin on hold since 04/03. Liver enzymes stopped trending up and slightly better off levofloxacin. So, switched the patient to PO cefpodoxime 200 mg Q12. HOLD Fluconazole in view of elevated LFTs until improvement. Low risk for fungal infections in setting of normal ANC. Plan to resume an azole in 1-2 days if liver enzymes continue to improve, tentatively on 04/14 Daily LFTs Dose adjust medications to the patient's hepatic function Avoid unnecessary hepatotoxic medications CMV PCR in process. Dental caries Poor dentition - Panorex X-ray showed dental caries - Monitor for oral pain, bleeding or signs of dental abscess - 04/05: One of the front teeth broke off today. Intellectual disability Autism - PT/OT consult - Case management consult - Outpatient case management/care coordination Upon discharge, patient can get twice weekly blood draw at [facility] in [place], [place]. . Ashley Valenzuela. Patient case discussed with attending, Dr. Lin. I personally saw and evaluated the patient on 04/10/24. I independently performed the critical/rush portions of the Evaluation and Management service and discussed the management with the author of this document. I agree with everything documented above except as may be indicated otherwise in my comments. Dr. Barrientos has been in charge of the patient's chemotherapy plan and overall management of this case and receives regular updates about his patients including Mr. Do's today and immediately as indicated. Jaden Lin MD/FACP Shannan Jimenez Echo Technologist of Clinical Medicine Distance Education Faculty Liaison for CONTINUOUS IMPROVEMENT LEAD and Chair of Breast DWG 04/10/2024 Hem Oncology IM Consult Note Subjective Patient seen and examined today. Patient denies any headache, nausea, change in vision. Denies any diarrhea, abdominal pain. Objective Vitals and Measurements T: 36.9 C TMIN: 36.7 C TMAX: 37 C HR: 105 RR: 16 BP: 120/64 SpO2: 97% WT: 71.7 kg Physical Exam General: Alert, no acute distress Cardiovascular: Regular rate and rhythm, normal peripheral perfusion, no edema Respiratory: respirations are non-labored Chest wall: Symmetric chest rise. No deformity. Back: Normal alignment Musculoskeletal: No obvious deformities, no significant swelling. Full range of motion, normal strength throughout. Gastrointestinal: Nondistended Neurological: Alert and oriented to person, place, time, and situation. No focal deficits. Normal speech. Psychiatric: Cooperative. Lab Results CBC (04/09/24) WBC H 13.34 Hgb L 8.7 Hct L 27.9 MCV H 98.2 PLT 379 Comprehensive Metabolic Panel (04/09/24) Na+ 138 K+ 3.6 Cl- 101 CO2 H 32 Anion gap 9 GLU H 142 BUN 8 Creat L 0.4 Estimated GFR f 150 Estimated GFR f Not calculated Ca 9.2 Alk Phos H 471 AST H 47 ALT H 63 T Bili 0.56 Total Protein 6.0 Alb L 3.1 Hemolysis Index 0 Icteria Index 0 Lipemia Index 0 Diagnostic Results Assessment/Plan 24-year-old male with a medical history significant for a presumed intellectual disability presented to as a direct admit from [facility] in [place], [place] over concerns for acute leukemia. The patient has been in the ER a few times this month with vague complaints of abdominal pain and back pain. At those visits, his lab work and imaging were unremarkable. Yesterday, he presented to the ED for epistaxis, where he lost an estimated 1 cup of blood. Routine labs were drawn, and significant derangements were noticed, including a Hgb of 6, platelet count of 64, WBC 66,000, elevated LFTs, uric acid of 8, and an LDH >8000. He was transferred from acute care ED to for for acute leukemia evaluation. - Initial labs were significant for WBC count 69.4 K, hemoglobin of 5 g/dl, platelet of 58 K, mildly prolonged PT, normal PTT, and fibrinogen levels. Additionally, the patient had hyperuricemia and hyperglycemia. No evidence of TLS. - Peripheral blood smear showed atypical mononuclear cells, most probably blasts, with no signs of Nancy rods. - An echocardiogram performed on 03/13/2024 showed left ventricular systolic function is hyperdynamic, with an ejection fraction >70%. Left ventricular diastolic function is normal. - Hepatitis panel is negative. HIV testing is negative. - MRI of the brain is negative for features indicative of TOWER EQUIPMENT INSTALLER involvement or acute intracranial abnormalities. - Scrotal ultrasound showed normal scrotum and testes with no evidence of testicular involvement - Chemotherapy education for Hyper-CVAD and consent were completed on 03/14/24 - Underwent a bone marrow biopsy by IR on 03/15/2024 which showed B-ALL, NGS showed TCF3-PBX1 fusion and an NSD2 (WHSC1 or MMSET) [id number] alteration (VAF 32.32%). 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 However, patient was unable to provide the sample. Heme/Onc fellow on service personally discussed this with Shena Costello, who is patient's sister and DPOA she agreed to proceed with treatment. - Cycle 1A Day 1 of hyper-CVAD (Part A) on 03/15/2024 to 03/18 with Neupogen support - Bone marrow biopsy done on 04/04/2024 before Cycle 1B, results pending. Flow cytometry from bone marrow aspirate without any evidence of blast. 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 - Cycle 1B was initially postponed due to mild transaminitis. Started on 04/08/2024 - IT chemo on 04/09 needs D7 IT on 04/13. Will follow-up CSF cytology. - MTX level post infusion around 9-10pm on 04/09/24. And Q24hrs. - Daily CBC, CMP, and TLS labs (uric acid, phosphorus level, and LDH) - Provide supportive transfusions to keep hemoglobin above 7 g/dL and platelet count above 10 K - Strictly use irradiated blood products - Avoid using Tylenol and NSAIDs for pain control. - Maintain a low threshold to start empirical antibiotics if the patient develops fever or signs of infection. - Discussed with neurosurgery regarding optimal timing for placement of Rick[place] reservoir, preferably immediately before the next cycle to avoid cytopenia. (Potential placement before Cycle 2A) (NSGY attending performing [place] reservoir is unavailable this week, recommend OP follow up for reservoir placement.) Will need to reschedule upon discharge to be before Cycle 2A. - Skin care team on board. -Recommend IR consult [Upon discharge patient will need labs closer to home in [place], [place]]. Chemotherapy regimen Hyper-CVAD Chemotherapy, Part B Methotrexate 200 mg/m2 IV over 2 hours on Day 1 followed by 800 mg/m2; IV continuous infusion over 22 hours on Day 1 Cytarabine (age <60 years) 3,000 mg/mm2; IV over 3 hours every 12 hours for 4 doses on Days 2 and 3 Alkaline hydration is required pre- and post-administration of high-dose methotrexate. Leucovorin 50 mg IV over 15 minutes on Day 2 administered 12 hours after completion of 22-hour methotrexate infusion followed by 15 mg IV over 15 minutes or PO every 6 hours for at least 8 doses (until methotrexate serum concentration is <0.05 micromol/L) Leucovorin dose should be titrated for delayed methotrexate clearance. IT Chemotherapy Methotrexate 12 mg intrathecal on Day 2 of Cycles 1B to 4A in future cycle day 1 Cytarabine 100 mg intrathecal on Day 7 of Cycles 1B to 4A in the future cycle day 4 Supportive medications - Filgrastim (Neupogen) 5 mcg/kg SC once per day, starting 24 hours after completion of intensive courses of chemotherapy (day 5 for part A, day 4 for part B), given until ANC greater than 1000/uL VS outpatient Neulasta. -Prednisone eyedrops until 5 days. Antibiotic prophylaxis: - Acyclovir 400 mg PO BID While on treatment - Levaquin 500 mg PO daily while on treatment - Fluconazole 200 mg PO daily while on treatment - Bactrim DS PO MWF while on treatment Hold due to methotrexate Antibiotic prophylaxis on discharge: Acyclovir 400 mg PO BID, Levaquin 500 mg PO daily, Bactrim DS PO MWF and Fluconazole 200 mg PO daily. Elevated liver enzymes: Resolved Hypoalbuminemia - Ultrasound of the right upper quadrant obtained on 03/14/24 showed hepatomegaly with liver measuring up to 26 cm in cranial caudal dimension. Diffuse hepatic steatosis. Splenomegaly. Cholelithiasis without ultrasound evidence of acute cholecystitis. - CT abdomen and pelvis on 04/03 showed no acute infection. - 04/04: Liver enzymes stabilized. - Plan: Levofloxacin on hold since 04/03. Liver enzymes stopped trending up and slightly better off levofloxacin. So, switched the patient to PO cefpodoxime 200 mg Q12. HOLD Fluconazole in view of elevated LFTs until improvement. Low risk for fungal infections in setting of normal ANC. Plan to resume an azole in 1-2 days if liver enzymes continue to improve, tentatively on 04/10 Daily LFTs Dose adjust medications to the patient's hepatic function Avoid unnecessary hepatotoxic medications CMV PCR in process. Dental caries Poor dentition - Panorex X-ray showed dental caries - Monitor for oral pain, bleeding or signs of dental abscess - 04/05: One of the front teeth broke off today. Intellectual disability Autism - PT/OT consult - Case management consult - Outpatient case management/care coordination Upon discharge, patient can get twice weekly blood draw at [facility] in [place], [place]. . Ashley Valenzuela. Patient case discussed with attending, Dr. Lin. I personally saw and evaluated the patient on 04/09/24. I independently performed the critical/rush portions of the Evaluation and Management service and discussed the management with the author of this document. I agree with everything documented above except as may be indicated otherwise in my comments. Dr. Heike Barrientos has been in charge of the patient's chemotherapy plan and overall management of this case and receives daily updates about this case and immediately as indicated. Jaden Lin MD/FACP Shannan Jimenez Echo Technologist of Clinical Medicine Distance Education Faculty Liaison for CONTINUOUS IMPROVEMENT LEAD and Chair of Breast DWG 04/09/2024 Op/Procedure Note Procedure Attending Physician: Nakia Almanza MD Service: Interventional Radiology Procedure Performed: 1. Image guided LP 2. _ 3. _ 4. _ 5. _ Conscious sedation for a total of 0 minutes. Sedatives used: [_] Versed [_] Fentanyl [_] Benadryl [X] Dilauded [X] Lidocaine with/without Epinephrine Procedure Performed By: Attending Physician: Nakia Almanza MD Assisting: Description of Procedure Pre Op Diagnosis: Leukemia Post Op Diagnosis: Leukemia Location of Procedure: Radiology Informed Consent Obtained: Yes, Risk/Benefits discussed Monitoring During Procedure: [x] Blood Pressure Monitoring [x] Cardiac Monitoring [x] Continuous Pulse Oximetry [x] Heart Rate [x] Respiratory Rate Prep and Technique: Usual Standard Manner. Expediter Clerk Prep: [x] Cap, [x] Eye protection, [x] Mask, [x] Sterile gloves, [x] Sterile gowns. Patient Prep: [x] Prepped in sterile manner, [_] Prep solution +, [x] Draped in sterile manner. Anesthesia: IV Sedation: [_] Versed = _mg [_] Fentanyl = _mcg Dilauded = 1mg Local: 1% Lidocaine without Epinephrine Position of Patient: Prone Procedure Findings: Immediate Post Op Note: Successful LP with IT chemo administration without complication See radiology report when available for additional details. Complications: none. Condition: Stable Procedure Tolerated: Fair Estimated Blood Lost: Minimal Complications: None. Drains: None. Specimen: None. 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 Underwent BMBX on 09/16 with IR. Patient with mild transaminitis and abdominal pain for which RUQ US was completed and showed cholelithiasis with positive sonographic Martinez sign. HIDA scan completed for further evaluation and was negative for cystic duct or common duct obstruction, normal gallbladder contractility. Patient stable for dc home with continued close heme/onc follow up. Patient to continue prophylactic medications as listed below: Antibiotic prophylaxis: - Acyclovir 400 mg PO BID While on treatment - Levaquin 500 mg PO daily while on treatment - Fluconazole 400 mg PO daily while on treatment . Hold due to transaminitis. - Bactrim DS PO MWF while on treatment . Hold until MTX clears. 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 (ALL) B-cell acute lymphoblastic leukemia (ALL) Ordered: levoFLOXacin(levoFLOXacin 500 mg oral tablet), 500 mg= 1 Tablet(s), Oral, Daily, 3 refills Leukemia Orders: amoxicillin-clavulanate(amoxicillin-clavulanate (Augmentin) 875 mg-125 mg oral tablet), 875 mg, Oral, q12h, 1 refills sertraline(Zoloft 50 mg oral tablet), 50 mg= 1 Tablet(s), Oral, Daily, 3 refills Discharge Patient, 09/18/24 10:09:00 BRAULIO CASSIDY Date: 09/18/24, Disposition: Home/Self Care, [place] Attending: Dario Madsen DO, [place] Summary Provider: Dario Madsen DO, Please do not discharge until patient has Neulast in hand for sister to administer at home to... Remove PICC line, 09/18/24 10:46:00 DIRECT SERVICE PROFESSIONAL Once Other Diagnoses Ongoing B-cell acute lymphoblastic leukemia Intellectual disability Operations and Procedures Consultants Inpt Interventional Radiology Pending Labs Chromosome Analysis, Hematologic Disorders, Bone Marrow-[place] (In Process, InProcess, ordered 09/16/2024, 14:11) Discharge Disposition Home Medications New, Changed, or Refilled Medications amoxicillin-clavulanate (amoxicillin-clavulanate (Augme 875 mg, Oral, q12h, 60 Tablet(s), 1 Refill(s) levoFLOXacin (levoFLOXacin 500 mg) 500 mg, 1 Tablet(s), Oral, Daily, 30 Tablet(s), 3 Refill(s) pegfilgrastim (pegfilgrastim 6 mg/0.6 mL subcutaneous s 6 mg, Subcutaneous, Once, 0.6 mL, 0 Refill(s) sertraline (Zoloft 50 mg) 50 mg, 1 Tablet(s), Oral, Daily, 30 Tablet(s), 3 Refill(s) Medications to be Continued acetaminophen-HYDROcodone (acetaminophen-hydrocodone 32 1 Tablet(s), Oral, q6h, for 5 day(s), PRN: Pain, Moderate, 15 Tablet(s), 0 Refill(s) acyclovir (acyclovir 200 mg) 400 mg, 2 capsule(s), Oral, bid, 60 capsule(s), 2 Refill(s) fluconazole (fluconazole 200 mg) 400 mg, 2 Tablet(s), Oral, Daily, 30 Tablet(s), 0 Refill(s) gabapentin (gabapentin 100 mg) 100 mg, 1 capsule(s), Oral, bid, 60 capsule(s), 1 Refill(s) gabapentin (gabapentin 100 mg) 100 mg, 1 capsule(s), Oral, bid, for 30 day(s), 60 capsule(s), 0 Refill(s) hydrOXYzine (hydrOXYzine hydrochloride 25 mg) 25 mg, 1 Tablet(s), Oral, tid, PRN: as needed for anxiety, 30 Tablet(s), 0 Refill(s) lactobacillus acidophilus (Acidophilus Probiotic Blend) 1 capsule(s), Oral, Daily loperamide (loperamide 2 mg) See Instructions, 2 tabs at onset of diarrhea, then 1 Tablet after each loose stool up to 8 tabs daily not to exceed 8 tabs, or 16 mg, in 24 hours, 30 Tablet(s), 1 Refill(s) Instructions:2 tabs at onset of diarrhea, then 1 Tablet after each loose stool up to 8 tabs felicia morphine (MS Contin 15 mg , extended release) 15 mg, 1 Tablet(s), Oral, bid, 60 Tablet(s), 0 Refill(s) ondansetron (ondansetron 8 mg , disintegrating) 8 mg, 1 Tablet(s), Oral, tid, as needed for nausea. allow tablet to dissolve on tongue., 30 Tablet(s), 1 Refill(s) Instructions:as needed for nausea. allow tablet to dissolve on tongue. prochlorperazine (prochlorperazine 10 mg) 10 mg, 1 Tablet(s), Oral, tid, as needed for nausea if ondansetron ineffective, 30 Tablet(s), 1 Refill(s) Instructions:as needed for nausea if ondansetron ineffective sulfamethoxazole-trimethoprim (Bactrim DS 800 mg-160 mg 160 mg, 1 Tablet(s), Oral, qM W F, 30 Tablet(s), 1 Refill(s) Discontinued Medications acetaminophen (acetaminophen 500 mg) 1,000 mg, 2 Tablet(s), Oral, q6h, PRN: as needed for pain ibuprofen (ibuprofen 200 mg) 400 mg, 2 Tablet(s), Oral, q6h, PRN: as needed for pain Physical Exam at Discharge Vitals and Measurements T: 36.7 C TMIN: 36.5 C TMAX: 36.9 C HR: 98 RR: 16 BP: 122/76 SpO2: 97% General: Well developed, well nourished, alert, oriented x4, cooperative no acute distress Head: Normocephalic, atraumatic Neck: Supple, trachea midline Lungs: CTABL, no W/R/R, no distress Heart: RRR, no M/R/G Abdomen: Bowel sounds present, non-tender, non-distended, no masses palpated Musculoskeletal: Range of motion intact in extremities, no joint erythema or tenderness, no peripheral edema noted Neurologic: CN II-XII 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, sensation symmetric and intact Time Spent Time Spent on Discharge: 45 minutes including final face to face visit with patient, discharge medication reconciliation, preparation of instructions for continuing care and completion of discharge summary. Follow Up Appointments Follow up in the hematology/oncology clinic as scheduled likely in 3-4 weeks Nursing/Other Orders Regular Diet. Ordered on 09/16/24 15:00:00 DIRECT SERVICE PROFESSIONAL, Meal Start Time Lunch 1115 to 1245 Activity As Tolerated. 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 Plan for discharge with Neulasta to be administered by sister on 08/24. 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) Leukemia Other Diagnoses Ongoing B-cell acute lymphoblastic leukemia Intellectual disability Operations and Procedures Consultants Pending Labs Discharge Disposition Home Medications New, Changed, or Refilled Medications acetaminophen-HYDROcodone (acetaminophen-hydrocodone 32 1 Tablet(s), Oral, q6h, for 5 day(s), PRN: Pain, Moderate, 15 Tablet(s), 0 Refill(s) acyclovir (acyclovir 200 mg) 400 mg, 2 capsule(s), Oral, bid, 60 capsule(s), 2 Refill(s) levoFLOXacin (levoFLOXacin 500 mg) 500 mg, 1 Tablet(s), Oral, Daily, 30 Tablet(s), 3 Refill(s) morphine (MS Contin 15 mg , extended release) 15 mg, 1 Tablet(s), Oral, bid, 60 Tablet(s), 0 Refill(s) pegfilgrastim (pegfilgrastim 6 mg/0.6 mL subcutaneous s 6 mg, Subcutaneous, Once, 0.6 mL, 0 Refill(s) sulfamethoxazole-trimethoprim (Bactrim DS 800 mg-160 mg 160 mg, 1 Tablet(s), Oral, qM W F, 30 Tablet(s), 1 Refill(s) Medications to be Continued acetaminophen (acetaminophen 500 mg) 1,000 mg, 2 Tablet(s), Oral, q6h, PRN: as needed for pain amoxicillin-clavulanate (amoxicillin-clavulanate (Augme 1 Tablet(s), Oral, bid, for 30 day(s), Until seen by dentist, 60 Tablet(s), 0 Refill(s) Instructions:Until seen by dentist fluconazole (fluconazole 200 mg) 400 mg, 2 Tablet(s), Oral, Daily, 30 Tablet(s), 0 Refill(s) gabapentin (gabapentin 100 mg) 100 mg, 1 capsule(s), Oral, bid, 60 capsule(s), 1 Refill(s) gabapentin (gabapentin 100 mg) 100 mg, 1 capsule(s), Oral, bid, for 30 day(s), 60 capsule(s), 0 Refill(s) hydrOXYzine (hydrOXYzine hydrochloride 25 mg) 25 mg, 1 Tablet(s), Oral, tid, PRN: as needed for anxiety, 30 Tablet(s), 0 Refill(s) ibuprofen (ibuprofen 200 mg) 400 mg, 2 Tablet(s), Oral, q6h, PRN: as needed for pain lactobacillus acidophilus (Acidophilus Probiotic Blend) 1 capsule(s), Oral, Daily loperamide (loperamide 2 mg) See Instructions, 2 tabs at onset of diarrhea, then 1 Tablet after each loose stool up to 8 tabs daily not to exceed 8 tabs, or 16 mg, in 24 hours, 30 Tablet(s), 1 Refill(s) Instructions:2 tabs at onset of diarrhea, then 1 Tablet after each loose stool up to 8 tabs felicia ondansetron (ondansetron 8 mg , disintegrating) 8 mg, 1 Tablet(s), Oral, tid, as needed for nausea. allow tablet to dissolve on tongue., 30 Tablet(s), 1 Refill(s) Instructions:as needed for nausea. allow tablet to dissolve on tongue. prochlorperazine (prochlorperazine 10 mg) 10 mg, 1 Tablet(s), Oral, tid, as needed for nausea if ondansetron ineffective, 30 Tablet(s), 1 Refill(s) Instructions:as needed for nausea if ondansetron ineffective sertraline (Zoloft 50 mg) 50 mg, 1 Tablet(s), Oral, Daily, 30 Tablet(s), 3 Refill(s) Discontinued Medications None Physical Exam at Discharge Vitals and Measurements T: 36.6 C TMIN: 36.5 C TMAX: 36.7 C HR: 80 RR: 16 BP: 133/79 SpO2: 99% General: no acute distress Eye: EOMI, normal conjunctiva HEENT: Normocephalic, Atraumatic. Oral mucosa is moist Resp: Respirations are non-labored, symmetric chest expansion CV: Well perfused GI: Abdomen is soft nontender MSK: Normal range of motion, normal strength, no peripheral edema Skin: Warm, dry, intact Neuro: Alert, oriented, responds appropriately, no focal defects Psych: Normal mood and affect, cooperative Time Spent Follow Up Appointments Appointment Type When With Where Contact Information Status Infusion - CA5 08/30/2024 08:30 AM DIRECT SERVICE PROFESSIONAL [facility] [place] [address]- Confirmed Lab Peripheral IV 09/10/2024 12:30 PM DIRECT SERVICE PROFESSIONAL [facility] [place] [address]- Confirmed BLOCK BREAKER 09/10/2024 01:30 PM DIRECT SERVICE PROFESSIONAL Nancy Clark [facility] [place] [address]- Confirmed Nursing/Other Orders Regular Diet. Ordered on 08/19/24 15:33:00 DIRECT SERVICE PROFESSIONAL, Meal Start Time Breakfast 0700 to 0900 Activity, Prone Position (Position, Prone). Start Date/Time: 08/20/24 13:49:00 DIRECT SERVICE PROFESSIONAL, Special Instructions Patient to remain in a prone position for approximately 30 minutes after administration if possible. Activity, Prone Position (Position, Prone). * Est. Start Date/Time: 08/23/24 10:26:00 DIRECT SERVICE PROFESSIONAL, Special Instructions Patient to remain in a prone position for approximately 30 minutes after administration if possible. (Future) Out of Bed Activity. 08/19/24 15:33:00 DIRECT SERVICE PROFESSIONAL Out of Bed to Chair, tid w/Meals I personally saw and evaluated the patient on the result date found in the header of this document. I independently performed the critical/rush portions of the Evaluation and Management service and discussed the management with the author of this document. I agree with everything documented above with the following exceptions/additions: Patient tolerated chemotherapy well. Being sent home with Neulasta to be administered by his sister. I also had all medications the specialty pharmacist informed needed refilled ordered and delivered to bedside prior to discharge. Time Spent on Discharge: 45 minutes including final face to face visit with patient, discharge medication reconciliation, preparation of instructions for continuing care and completion of discharge summary. 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 Inpatient chemotherapy complicated by development of transaminitis so chemo and fluconazole were held. Transaminases showed improvement 07/22 so chemotherapy resumed, but prophylactic fluconazole held for additional 2-3 days per heme onc recommendation to reduce risk of liver injury. Labs remained stable with no further transaminitis for remainder of chemotherapy regimen. Patient was discharged on home medications. He was also prescribed flucconazole for fungal prophylaxis and augmentin for oral alecia prophylaxis due to poor oral dentition and hygiene to take while immunocompromised and high risk for opportunistic infections. SW assisted with scheduling medicare ride and patient was discharged home in stable condition with plans for medicare rides to and from appointment on Monday for outpatient infusions. Discharge Diagnoses ALL (acute lymphoblastic leukemia of ) B-cell acute lymphoblastic leukemia B-cell acute lymphoblastic leukemia (ALL) B-cell acute lymphoblastic leukemia (ALL) Leukemia Other Diagnoses OngoingB-cell acute lymphoblastic leukemia Intellectual disability Operations and Procedures Consultants Inpt Medicine Hematology/Oncology Pending Labs Discharge Disposition Home Medications New, Changed, or Refilled Medicationsacetaminophen-HYDROcodone (acetaminophen-hydrocodone 32 1 Tablet(s), Oral, q6h, for 5 day(s), PRN: Pain, Moderate, 15 Tablet(s), 0 Refill(s) amoxicillin-clavulanate (amoxicillin-clavulanate (Augme 1 Tablet(s), Oral, bid, for 30 day(s), Until seen by dentist, 60 Tablet(s), 0 Refill(s) Instructions:Until seen by dentistfluconazole (fluconazole 200 mg) 400 mg, 2 Tablet(s), Oral, Daily, for 30 day(s), 60 Tablet(s), 0 Refill(s) gabapentin (gabapentin 100 mg) 100 mg, 1 capsule(s), Oral, bid, for 30 day(s), 60 capsule(s), 0 Refill(s) sulfamethoxazole-trimethoprim (Bactrim DS 800 mg-160 mg 160 mg, 1 Tablet(s), Oral, qM W F, 30 Tablet(s), 1 Refill(s) Medications to be Continuedacetaminophen (acetaminophen 500 mg) 1,000 mg, 2 Tablet(s), Oral, q6h, PRN: as needed for pain acyclovir (acyclovir 200 mg) 400 mg, 2 capsule(s), Oral, bid, 60 capsule(s), 0 Refill(s) fluconazole (fluconazole 200 mg) 400 mg, 2 Tablet(s), Oral, Daily, 30 Tablet(s), 0 Refill(s) gabapentin (gabapentin 100 mg) 100 mg, 1 capsule(s), Oral, bid, 60 capsule(s), 1 Refill(s) ibuprofen (ibuprofen 200 mg) 400 mg, 2 Tablet(s), Oral, q6h, PRN: as needed for pain lactobacillus acidophilus (Acidophilus Probiotic Blend) 1 capsule(s), Oral, Daily levoFLOXacin (levoFLOXacin 500 mg) 500 mg, 1 Tablet(s), Oral, Daily, 30 Tablet(s), 0 Refill(s) loperamide (loperamide 2 mg) See Instructions, 2 tabs at onset of diarrhea, then 1 Tablet after each loose stool up to 8 tabs daily not to exceed 8 tabs, or 16 mg, in 24 hours, 30 Tablet(s), 1 Refill(s) Instructions:2 tabs at onset of diarrhea, then 1 Tablet after each loose stool up to 8 tabs dailynondansetron (ondansetron 8 mg , disintegrating) 8 mg, 1 Tablet(s), Oral, tid, as needed for nausea. allow tablet to dissolve on tongue., 30 Tablet(s), 1 Refill(s) Instructions:as needed for nausea. allow tablet to dissolve on tongue.prochlorperazine (prochlorperazine 10 mg) 10 mg, 1 Tablet(s), Oral, tid, as needed for nausea if ondansetron ineffective, 30 Tablet(s), 1 Refill(s) Instructions:as needed for nausea if ondansetron ineffective Discontinued Medicationsmorphine (MS Contin 15 mg , extended release) 15 mg, 1 Tablet(s), Oral, q12h, 60 Tablet(s), 0 Refill(s) Physical Exam at Discharge Vitals and Measurements General: Well developed, well nourished, alert, oriented x4, cooperative no acute distressHead: Normocephalic, atraumatic, extremely poor dentitionNeck: Supple, trachea midlineLungs: CTABL, no W/R/R, no distressHeart: RRR, no M/R/GAbdomen: Bowel sounds present, non-tender, non-distended, no masses palpatedMusculoskeletal: Range of motion intact in extremities, no joint erythema or tenderness, no peripheral edema notedNeurologic: CN II-XII 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, sensation symmetric and intact Time Spent Follow Up Appointments Appointment TypeWhenWhereContact InformationStatus Lab Draw w/ Port 07/26/2024 09:00 AM DIRECT SERVICE PROFESSIONAL [facility] [place] [address]- Confirmed Infusion - CA7 07/26/2024 10:00 AM DIRECT SERVICE PROFESSIONAL [facility] [place] [address]- Confirmed Nursing/Other Orders Activity, Prone Position (Position, Prone). Start Date/Time: 07/20/24 13:11:00 CDT, Special Instructions Patient to remain in a prone position for approximately 30 minutes after administration if possible. Activity, Prone Position (Position, Prone). * Est. Start Date/Time: 07/23/24 7:58:00 DIRECT SERVICE PROFESSIONAL, Special Instructions Patient to remain in a prone position for approximately 30 minutes after administration if possible. (Future) Activity, Prone Position (Position, Prone). * Est. Start Date/Time: 07/26/24, Special Instructions Patient to remain in a prone position for approximately 30 minutes after administration if possible. (Future) Activity, Prone Position (Position, Prone). * Est. Start Date/Time: 07/26/24 8:00:00 DIRECT SERVICE PROFESSIONAL, Special Instructions Patient to remain in a prone position for approximately 30 minutes after administration if possible. (Future) Activity, Prone Position (Position, Prone). * Est. Start Date/Time: 07/29/24 8:00:00 DIRECT SERVICE PROFESSIONAL, Special Instructions Patient to remain in a prone position for approximately 30 minutes after administration if possible. (Future) I personally saw and evaluated the patient on the result date found in the header of this document. I independently performed the critical/rush portions of the Evaluation and Management service and discussed the management with the author of this document. I agree with everything documented above with the following exceptions/additions: noneTime Spent on Discharge: 45 minutes including final face to face visit with patient, discharge medication reconciliation, preparation of instructions for continuing care and completion of discharge summary. 07/25/2024 Discharge Summary Date of Admission Date of Discharge 07/01/2024 Reason for Hospitalization Planned chemotherapy Hospital Course Mr. 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 The patient received chemotherapy during the hospital stay. The patient was discharged home in stable condition on 07/01. The patient is scheduled to return [facility] on 07/08 for day 11 of his chemotherapy regimen. Discharge Diagnoses ALL (acute lymphoblastic leukemia of ) B-cell acute lymphoblastic leukemia (ALL) Other Diagnoses Ongoing B-cell acute lymphoblastic leukemia Intellectual disability Pending Labs Cytology, Non-ALCOHOL STILL OPERATOR (Hickman, Wash, Fluids, etc) (In Process, InProcess, ordered 06/28/2024, 14:07) Cytology, Non-ALCOHOL STILL OPERATOR (Hickman, Wash, Fluids, etc) (Ordered, Ordered 07/01/2024, 12:54) Discharge Disposition Home Medications New, Changed, or Refilled Medications filgrastim (Neupogen 480 mcg/1.6 mL injectable solution 480 mcg, Subcutaneous, Daily, for 4 day(s), 4 Each, 0 Refill(s) Medications to be Continued acetaminophen (acetaminophen 500 mg) 1,000 mg, 2 Tablet(s), Oral, q6h, PRN: as needed for pain acetaminophen-HYDROcodone (acetaminophen-hydrocodone 32 1 Tablet(s), Oral, q6h, PRN: Pain, Moderate, 30 Tablet(s), 0 Refill(s) acyclovir (acyclovir 200 mg) 400 mg, 2 capsule(s), Oral, bid, 60 capsule(s), 0 Refill(s) amoxicillin-clavulanate (amoxicillin-clavulanate (Augme 1 Tablet(s), Oral, bid, for 30 day(s), Until seen by dentist, 60 Tablet(s), 2 Refill(s) Instructions:Until seen by dentist fluconazole (fluconazole 200 mg) 400 mg, 2 Tablet(s), Oral, Daily, 30 Tablet(s), 0 Refill(s) gabapentin (gabapentin 100 mg) 100 mg, 1 capsule(s), Oral, bid, 60 capsule(s), 1 Refill(s) ibuprofen (ibuprofen 200 mg) 400 mg, 2 Tablet(s), Oral, q6h, PRN: as needed for pain lactobacillus acidophilus (Acidophilus Probiotic Blend) 1 capsule(s), Oral, Daily levoFLOXacin (levoFLOXacin 500 mg) 500 mg, 1 Tablet(s), Oral, Daily, 30 Tablet(s), 0 Refill(s) loperamide (loperamide 2 mg) See Instructions, 2 tabs at onset of diarrhea, then 1 Tablet after each loose stool up to 8 tabs daily not to exceed 8 tabs, or 16 mg, in 24 hours, 30 Tablet(s), 1 Refill(s) Instructions:2 tabs at onset of diarrhea, then 1 Tablet after each loose stool up to 8 tabs felicia morphine (MS Contin 15 mg , extended release) 15 mg, 1 Tablet(s), Oral, q12h, 60 Tablet(s), 0 Refill(s) ondansetron (ondansetron 8 mg , disintegrating) 8 mg, 1 Tablet(s), Oral, tid, as needed for nausea. allow tablet to dissolve on tongue., 30 Tablet(s), 1 Refill(s) Instructions:as needed for nausea. allow tablet to dissolve on tongue. prochlorperazine (prochlorperazine 10 mg) 10 mg, 1 Tablet(s), Oral, tid, as needed for nausea if ondansetron ineffective, 30 Tablet(s), 1 Refill(s) Instructions:as needed for nausea if ondansetron ineffective sulfamethoxazole-trimethoprim (Bactrim DS 800 mg-160 mg 160 mg, 1 Tablet(s), Oral, qM W F, 30 Tablet(s), 1 Refill(s) Discontinued Medications None Physical Exam at Discharge Vitals and Measurements T: 37.3 C TMIN: 36.6 C TMAX: 37.3 C HR: 97 RR: 14 BP: 132/92 SpO2: 99% WT: 74.2 kg WT: 74.5 kg (Dosing) BMI: 22.2 GEN: No acute distress, lying in bed, responsive to questions EYES: No scleral icterus, PERRL, EOMI HENT: Normocephalic, atraumatic RESP: Clear to auscultation bilaterally, symmetrical chest rise and fall bilaterally CARDIO: Regular rate and rhythm, no murmurs or rubs GASTRO: Soft, non-tender to palpation, non-distended MUSCULO: No gross malformations SKIN: No rash, normal skin turgor NEURO: No focal deficits appreciated. Normal speech, no facial asymmetry or dropping. PSYCH: Appropriate mood and affect, normal judgement Follow Up Appointments Appointment Type When Where Contact Information Status Infusion - CA7 07/03/2024 08:00 AM CDT [facility] [place] [address]- Confirmed Nursing/Other Orders Regular Diet. Ordered on 06/27/24 16:14:00 CDT, Meal Start Time Breakfast 0700 to 0900 Activity, Prone Position (Position, Prone). Start Date/Time: 06/28/24 11:22:00 CDT, Special Instructions Patient to remain in a prone position for approximately 30 minutes after administration if possible. Activity, Prone Position (Position, Prone). Start Date/Time: 07/01/24 10:43:00 CDT, Special Instructions Patient to remain in a prone position for approximately 30 minutes after administration if possible. I personally saw and evaluated the patient on the result date found in the header of this document. I independently performed the critical/rush portions of the Evaluation and Management service and discussed the management with the author of this document. I agree with everything documented above with the following exceptions/additions: Due to transportation issues, pateint sent home on 5 day reg of Neupogen instead of Neulasta. Sister able to administer Neupogen. Plan to have medicaid ride set up for patient to return to [facility] on 07[facility]. 07/01/2024 Discharge Summary Date of Admission Date of Discharge 06/04/2024 Reason for Hospitalization Rickham reservoir placement, chemotherapy admission Hospital Course Patient is a 24 yo M w/ presumed intellectual disability who was admitted for Rickham reservoir placement and planned chemotherapy. Patient post op day 2 and doing well with minimal pain. Plan to start hyper-CVAD 2B per oncology recommendations. Discussed the possibility of discharging on Saturday 06/02 with patient's sister but she told us that she no longer had a car to pick him up (parent's not willing to lend their car). Ride was arranged with social work lecturer to patient's home. Patient received IT chemo and Rituximab on 06/03, and tolerated it well. Patient was deemed stable for discharge on 06/04. He had mild elevation of liver enzymes prior to discharge, however overall downtrended from prior, and other hepatitis workup unremarkable. no other clinical evidence of hepatic injury. He will follow up with Dr. Barrientos in clinic, with recheck of labs. 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) Ordered: acyclovir, 400 mg = 2 capsule(s), Oral, bid, # 60 capsule(s), Refill(s) 0, Pharmacy: [facility], 182.8, cm, 06/03/24 22:36:00 CDT, Height (cm), kg, 05/27/24 14:28:00 CDT, Weight (kg), 71.5 levoFLOXacin, 500 mg = 1 Tablet(s), Oral, Daily, # 30 Tablet(s), Refill(s) 0, Pharmacy: [facility], bedside delivery, 182.8, cm, 06/03/24 22:36:00 CDT, Height (cm), kg, 05/27/24 14:28:00 CDT, Weight (kg), 71.5 Carcinomatosis Leukemia Ordered: acyclovir, 400 mg = 2 capsule(s), Oral, bid, # 60 capsule(s), Refill(s) 0, Pharmacy: [facility], 182.8, cm, 06/03/24 22:36:00 CDT, Height (cm), kg, 05/27/24 14:28:00 CDT, Weight (kg), 71.5 Orders: filgrastim, 480 mcg = 0.8 mL, Subcutaneous, q24h, # 1 mL, Refill(s) 0, 06/05/24, [facility]: [facility], 182.8, cm, 06/03/24 22:36:00 CDT, Height (cm), kg, 05/27/24 14:28:00 CDT, Weight (kg), 71.5 fluconazole, 400 mg = 2 Tablet(s), Oral, Daily, # 30 Tablet(s), Refill(s) 0, [facility], bedside delivery, 182.8, cm, 06/03/24 22:36:00 CDT, Height (cm), kg, 05/27/24 14:28:00 CDT, Weight (kg), 71.5 B-Cell ALL Elevated LFTs (improving) Constipation Other Diagnoses Ongoing B-cell acute lymphoblastic leukemia Intellectual disability Historical No qualifying data Operations and Procedures Consultants Pending Labs Cytology, Non-ALCOHOL STILL OPERATOR (Hickman, Wash, Fluids, etc) (In Process, InProcess, ordered 06/03/2024, 13:48) Discharge Disposition Home Medications New, Changed, or Refilled Medications acyclovir (acyclovir 200 mg) 400 mg, 2 capsule(s), Oral, bid, 60 capsule(s), 0 Refill(s) filgrastim (filgrastim-sndz 480 mcg/0.8 mL injectable s 480 mcg, 0.8 mL, Subcutaneous, q24h, 1 mL, 0 Refill(s) fluconazole (fluconazole 200 mg) 400 mg, 2 Tablet(s), Oral, Daily, 30 Tablet(s), 0 Refill(s) levoFLOXacin (levoFLOXacin 500 mg) 500 mg, 1 Tablet(s), Oral, Daily, 30 Tablet(s), 0 Refill(s) Medications to be Continued acetaminophen (acetaminophen 500 mg) 1,000 mg, 2 Tablet(s), Oral, q6h, PRN: as needed for pain amoxicillin-clavulanate (amoxicillin-clavulanate (Augme 1 Tablet(s), Oral, bid, for 30 day(s), Until seen by dentist, 60 Tablet(s), 2 Refill(s) Instructions:Until seen by dentist gabapentin (gabapentin 100 mg) 100 mg, 1 capsule(s), Oral, bid, 60 capsule(s), 0 Refill(s) ibuprofen (ibuprofen 200 mg) 400 mg, 2 Tablet(s), Oral, q6h, PRN: as needed for pain lactobacillus acidophilus (Acidophilus Probiotic Blend) 1 capsule(s), Oral, Daily loperamide (loperamide 2 mg) See Instructions, 2 tabs at onset of diarrhea, then 1 Tablet after each loose stool up to 8 tabs daily not to exceed 8 tabs, or 16 mg, in 24 hours, 30 Tablet(s), 1 Refill(s) Instructions:2 tabs at onset of diarrhea, then 1 Tablet after each loose stool up to 8 tabs felicia morphine (MS Contin 15 mg , extended release) 15 mg, 1 Tablet(s), Oral, q12h, 60 Tablet(s), 0 Refill(s) morphine (Morphine Sulfate IR 10 mg/5 ml oral solution) 5 mg, 2.5 mL, Oral, q4h, PRN: for pain, 120 mL, 0 Refill(s) ondansetron (ondansetron 8 mg , disintegrating) 8 mg, 1 Tablet(s), Oral, tid, as needed for nausea. allow tablet to dissolve on tongue., 30 Tablet(s), 1 Refill(s) Instructions:as needed for nausea. allow tablet to dissolve on tongue. prochlorperazine (prochlorperazine 10 mg) 10 mg, 1 Tablet(s), Oral, tid, as needed for nausea if ondansetron ineffective, 30 Tablet(s), 1 Refill(s) Instructions:as needed for nausea if ondansetron ineffective sulfamethoxazole-trimethoprim (Bactrim DS 800 mg-160 mg 160 mg, 1 Tablet(s), Oral, qM W F, 30 Tablet(s), 1 Refill(s) Discontinued Medications None Physical Exam at Discharge Vitals and Measurements T: 36.7 C TMIN: 36.4 C TMAX: 36.7 C HR: 113 RR: 16 BP: 128/71 SpO2: 99% General: No acute distress. Cooperative HEENT: Normocephalic, atraumatic; Normal conjunctiva Neck: supple, no thyromegaly Cardiovascular: regular rate and rhythm, no murmurs Respiratory: Clear lung to auscultation bilaterally. No wheezing or crackles. Gastrointestinal: Soft, nondistended, non-tender, BS+. MSK: normal ROM in all 4 extremities. No LE edema Neuro: Alert, Awake and Oriented. CN II-XII 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. Psych: normal affect, normal mood. Time Spent >35 minutes Follow Up Appointments Follow Up Appt Surgery Neurological, Follow up at Surgery Clinic with Marcio Mansfield MD Within 14 Days, Coordinate appt with No tests, Originally referred by eHike Barrientos Appointment Type When With Where Contact Information Status POP 06/10/2024 10:30 AM CDT Marcio Mansfield MD [facility] [place] [address] Confirmed No qualifying data available Nursing/Other Orders Regular Diet. Ordered on 05/25/24 9:18:00 CDT, Meal Start Time Breakfast 0700 to 0900 Activity, Prone Position (Position, Prone). Start Date/Time: 06/03/24 10:56:00 CDT, Special Instructions Patient to remain in a prone position for approximately 30 minutes after administration if possible. Activity, Prone Position (Position, Prone). * Est. Start Date/Time: 06/06/24 10:48:00 CDT, Special Instructions Patient to remain in a prone position for approximately 30 minutes after administration if possible. (Future) Fall Precautions. 05/24/24 0:02:28 CDT. Order comment: order placed from nursing documentation [email or web address] Out of Bed Activity. 05/23/24 12:27:00 CDT Out of Bed to Chair, tid, and as tolerated Activity As Tolerated. 05/23/24 12:27:00 CDT, Continuous Order I personally saw and independently performed the critical/rush portions of the evaluation on the date of service with author, discussed the assessment and reviewed their note above. I agree with the documented findings I spent a total time of 45 minutes on this patient encounter which included but is not limited to personally reviewing history and previous encounters within our healthcare system EMR, external records and performing the rush aspects of the exam, reviewing and recommending orders, providing education to the patient/caregiver, and documentation in the medical record. All occurred on date of service. 06/04/2024 Discharge Summary Date of Admission Date of Discharge 05/06/2024 Reason for Hospitalization Hospital Course Patient is a 24 yo M w/ presumed intellectual disability who was admitted to from [facility] in [place], [place] for new diagnosis of acute leukemia on 03/14. He was recently admitted, and ultimately discharged on 04/18 He is now admitted to the H/O service with neutropenic fever and tooth abscess. patient started on antibiotics, Chemotherapy started 05/03 Things to do - Discharge home with Augmentin bid until follow with Dentist - D/C home cefdinir, continued levofloxacin, bactrim and acyclovir . - Continue Dexamethasone as prescribed . - Decided to discontinued Neulasta, no indicated. - Follow with Oncologist Dr. Archer at [place] #Dental Infection - Blood Culture at [facility] was positive in 1/4 bottles after 3 days, with no organism seen on gram stain, will continue to follow cultures - Repeat Blood culture no growth - Vanc 04/27-05/01, Zosyn 04/26-05/02 - No indication for repeat TTE given normal TTE very recently. - Neutropenic precautions -Maxillofacial CT ordered not concerning for worsening abscess -Pain regimen; Dilaudid 1mg q3h, Morphine XR 15mg q12, gabapentin 100mg tID, magic mouthwash TID -Discharge home with Augmentin bid until follow with Dentist dental appointment for evaluation for dental extraction. #B-Cell ALL #Anemia - Flow cytometry consistent with B-Cell ALL from time of last admission - Hepatitis testing/HIV negative - Normal TTE at last admission, will not repeat here. - Normal brain MRI - BM Bx 04/04 with IR - received cycle 1 hyper-CVAD and intrathecal chemotherapy inpatient during last admission - Plan for cycle 2 05/02 - Continue home pain meds - maintain hgb above 7, transfuse irradiated blood products -Planning to transfer oncology care to [place] Dr. 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 - Abd US shows hepatic steatosis, hepatomegaly - Daily LFTs - Dose adjust medications to the patient's hepatic function - CT A/P unremarkable except for some splenomegaly at time of last admission Hypokalemia - likely due to decreased PO intake - maintain K>3.5 #Constipation - Doc/Senna BID + MiraLAX qday Discharge Diagnoses B-cell acute lymphoblastic leukemia (ALL) Infected tooth Leukemia Orders: amoxicillin-clavulanate, = 1 Tablet(s), Oral, bid, Until seen by dentist, X 14 day(s), # 28 Tablet(s), Refill(s) 1, 06/03/24, Pharmacy: [facility], Meds to Bedside, 196, cm, 05/02/24 22:37:00 CDT, Height (cm), kg, 04/27/24 21:06:00 CDT, Weight (kg), 70 morphine, 15 mg = 1 Tablet(s), Oral, q12h, # 60 Tablet(s), Refill(s) 0, Pharmacy: [facility], Meds to Bedside, 196, cm, 05/02/24 22:37:00 CDT, Height (cm), kg, 04/27/24 21:06:00 CDT, Weight (kg), 70 morphine, 5 mg = 2.5 mL, Oral, q4h, Scheduled / PRN PRN for pain, # 120 mL, Refill(s) 0, 06/06/24, Pharmacy: [facility], Meds to Bedside, 196, cm, 05/02/24 22:37:00 CDT, Height (cm), kg, 04/27/24 21:06:00 CDT, Weight (kg), 70 potassium chloride, 40 mEq = 2 Packet, form: Powder(Oral Soln), Oral/per Tube, Once, NOW, first dose 05/06/24 13:58:00 CDT, Physician Stop, stop date 05/06/24 13:58:00 CDT sulfamethoxazole-trimethoprim, trimethoprim 160 mg = 1 Tablet(s), Oral, qM W F, # 30 Tablet(s), Refill(s) 1, 06/06/24, Pharmacy: [facility], [facility] to Bedside, 196, cm, 05/02/24 22:37:00 CDT, Height (cm), kg, 04/27/24 21:06:00 CDT, Weight (kg), 70 Discharge Patient Follow Up Appt External Clinic or Provider Other Diagnoses Ongoing No chronic problems Historical No qualifying data Operations and Procedures Consultants Inpt Interventional Radiology Inpt Supportive/Palliative Care Pending Labs Culture Blood (Ordered, Pending Complete, ordered 04/25/2024, 22:57) Discharge Disposition Home Medications New, Changed, or Refilled Medications acyclovir (acyclovir 400 mg) 400 mg, Oral, bid, for 30 day(s), 60 Tablet(s), 0 Refill(s) amoxicillin-clavulanate (amoxicillin-clavulanate (Augme 1 Tablet(s), Oral, bid, for 14 day(s), Until seen by dentist, 28 Tablet(s), 1 Refill(s) Instructions:Until seen by dentist fluconazole (fluconazole 200 mg) 400 mg, Oral, Daily, for 30 day(s), 30 Tablet(s), 3 Refill(s) levoFLOXacin (levoFLOXacin 500 mg) 500 mg, Oral, Daily, for 30 day(s), 30 Tablet(s), 0 Refill(s) morphine (MS Contin 15 mg , extended release) 15 mg, 1 Tablet(s), Oral, q12h, 60 Tablet(s), 0 Refill(s) morphine (Morphine Sulfate IR 10 mg/5 ml oral solution) 5 mg, 2.5 mL, Oral, q4h, PRN: for pain, 120 mL, 0 Refill(s) sulfamethoxazole-trimethoprim (Bactrim DS 800 mg-160 mg 160 mg, 1 Tablet(s), Oral, qM W F, 30 Tablet(s), 1 Refill(s) Medications to be Continued acetaminophen (acetaminophen 500 mg) 1,000 mg, 2 Tablet(s), Oral, q6h, PRN: as needed for pain gabapentin (gabapentin 100 mg) 100 mg, 1 capsule(s), Oral, bid, 60 capsule(s), 0 Refill(s) ibuprofen (ibuprofen 200 mg) 400 mg, 2 Tablet(s), Oral, q6h, PRN: as needed for pain lactobacillus acidophilus (Acidophilus Probiotic Blend) 1 capsule(s), Oral, Daily polyethylene glycol 3350 (MiraLax oral powder for recon 17 g, Oral, Daily, 10 Each, 0 Refill(s) senna (senna (sennosides) 8.6 mg) 8.6 mg, 1 Tablet(s), Oral, bid, 60 Tablet(s), 0 Refill(s) sodium bicarbonate (sodium bicarbonate 650 mg) 650 mg, 1 Tablet(s), Oral, bid, 60 Tablet(s), 0 Refill(s) Discontinued Medications cefdinir (cefdinir 300 mg) 300 mg, 1 capsule(s), Oral, q12h, 60 capsule(s), 0 Refill(s) Physical Exam at Discharge Vitals and Measurements T: 36.8 C HR: 72 RR: 18 BP: 145/84 SpO2: 100% General: Awake and cooperative HEENT: Normocephalic, EOMI Cardiac: HRRR, no murmurs, gallops or rubs. No peripheral edema Respiratory: Lungs CTAB, no wheezes or crackles GI: Bowel sounds present, non-distended, non-tender Musculoskeletal: Full ROM, muscle strength 5/5 in all four extremities Integumentary: Warm and dry Neuro: Alert and oriented, CN II-XII 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 Psych: Mood and affect appropriate and stable Time Spent Follow Up Appointments Follow Up Appt External Clinic or Provider, Follow up at Dentist with No, preference Within 14 Days, Coordinate appt with No tests, Originally referred by Default, Attending No qualifying data available Nursing/Other Orders Regular Diet. Ordered on 05/03/24 13:54:00 CDT, Meal Start Time Supper 1615 to 1745 Intake and Output (Strict I&O). 04/25/24 22:54:00 CDT, Continuous Order, Q8H and PRN. Character, amount and frequency of stool. Report all variations from baseline to hooker on HEM ONC. Activity, Prone Position (Position, Prone). Start Date/Time: 05/02/24 12:24:00 CDT, Special Instructions Patient to remain in a prone position for approximately 30 minutes after administration if possible. Activity, Prone Position (Position, Prone). Start Date/Time: 05/06/24 13:19:00 CDT, Special Instructions Patient to remain in a prone position for approximately 30 minutes after administration if possible. Activity As Tolerated. 04/25/24 22:54:00 CDT, Continuous Order I personally saw and evaluated the patient on the result date found in the header of this document. I independently performed the critical/rush portions of the Evaluation and Management service and discussed the management with the author of this document. I agree with everything documented above with the following exceptions/additions: Patient needs to be scheduled for AIU follow up to complete his HyperCVAD cycle 2A. After completion he will transfer hematologic care to Dr. Archer in [place], [place]. Time Spent on Discharge: 45 minutes including final face to face visit with patient, discharge medication reconciliation, preparation of instructions for continuing care and completion of discharge summary. 05/06/2024 Discharge Summary Date of Admission Date of Discharge 04/17/2024 Reason for Hospitalization chemo initiation Hospital Course Patient is a 24 yo M w/ presumed intellectual disability who was admitted to from [facility] in [place], [place] for new diagnosis of acute leukemia on 03/14. BM bx showed B-Cell ALL and pt was admitted for cyclophosphamide chemotherapy on 03/15. Patient did not have DMC per psychiatry, and Sister was listed as DPOA. Patient was started on cycle 1 of hyper-CVAD on 04/07 with IT chemo performed on 04/09 and 04/15. Hospital course was complicated with transaminitis, which was suspected 2/2 Medication + cholelithiasis, RUQ US showed cholelithiasis without cholecystitis, and liver enzymes were downtrending. Discussed with heme/oncology service who were agreeable to discharging patient home with planned outpt follow up (heme/onc to order). patient will need twice weekly labs, and order was placed for [facility] in [place], [place] to draw them. Patient received 1 unit PRBC and Rituximab on 04/16. Patient was deemed stable for discharge with outpatient heme/onc follow up. Discharge Diagnoses 1. Acute leukemia of unspecified cell type 1. Acute leukemia of unspecified cell type not having achieved remission 1. 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 #Leukocytosis #Concerns for dental caries #Elevated liver enzymes #Hypoalbuminemia #Constipation Other Diagnoses Ongoing No qualifying data Historical No qualifying data Operations and Procedures Consultants Inpt Interventional Radiology Inpt Medicine Hematology/Oncology Inpt Psychiatry Inpt Surgery Oral Surgery Inpt Surgery Urology Pending Labs Minimal Residual Disease Clonality-Clonoseq (In Transit, Ordered 04/05/2024, 14:44) Minimal Residual Disease Tracking-Clonoseq (In Transit, Ordered 04/05/2024, 14:43) Discharge Disposition Home Medications New, Changed, or Refilled Medications acyclovir (acyclovir 200 mg) 400 mg, 2 capsule(s), Oral, bid, 60 capsule(s), 0 Refill(s) acyclovir (acyclovir 400 mg) 400 mg, Oral, bid, for 30 day(s), 60 Tablet(s), 0 Refill(s) cefpodoxime (cefpodoxime 200 200 mg, 1 Tablet(s), Oral, q12h, 30 Tablet(s), 0 Refill(s) gabapentin (gabapentin 100 m 100 mg, 1 capsule(s), Oral, bid, 60 capsule(s), 0 Refill(s) morphine (morphine 15 mg/8 t 15 mg, 1 Tablet(s), Oral, q12h, 24 Tablet(s), 0 Refill(s) oxyCODONE (oxyCODONE 5 mg) 15 mg, 3 Tablet(s), Oral, q4h, PRN: Pain, Moderate, 30 Tablet(s), 0 Refill(s) polyethylene glycol 3350 (Mi 17 g, Oral, Daily, 10 Each, 0 Refill(s) senna (senna (sennosides) 8. 8.6 mg, 1 Tablet(s), Oral, bid, 60 Tablet(s), 0 Refill(s) sodium bicarbonate (sodium b 650 mg, 1 Tablet(s), Oral, bid, 60 Tablet(s), 0 Refill(s) Medications to be Continued acetaminophen (acetaminophen 1,000 mg, 2 Tablet(s), Oral, q6h, PRN: as needed for pain ibuprofen (ibuprofen 200 mg) 400 mg, 2 Tablet(s), Oral, q6h, PRN: as needed for pain lactobacillus acidophilus (A 1 capsule(s), Oral, Daily tiZANidine (tiZANidine 4 mg) 4 mg, 1 Tablet(s), Oral, q6h, PRN: Muscle Spasm Discontinued Medications None Physical Exam at Discharge Vitals and Measurements T: 36.8 C TMIN: 36.5 C TMAX: 37.1 C HR: 103 RR: 20 BP: 117/64 SpO2: 100% General: No acute distress. Cooperative HEENT: Normocephalic, atraumatic; Normal conjunctiva Neck: supple, no thyromegaly Cardiovascular: regular rate and rhythm, no murmurs Respiratory: Clear lung to auscultation bilaterally. No wheezing or crackles. Gastrointestinal: Soft, nondistended, non-tender, BS+. MSK: normal ROM in all 4 extremities. No LE edema Neuro: Alert, Awake and Oriented. CN II-XII 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. Psych: normal affect, normal mood. Time Spent > 35 minutes Follow Up Appointments No qualifying data available Nursing/Other Orders Hematology/Oncology Nursing Adult Standard of Care. 03/26/24 13:49:00 CDT, Once, Day 12, B-cell acute lymphoblastic leukemia (ALL) Regular Diet. Ordered on 04/03/24 15:28:00 CDT, Meal Start Time Supper 1615 to 1745 Intake and Output. 03/12/24 15:53:00 CDT, Continuous Order Intake and Output (Strict I&O). 03/12/24 18:12:00 CDT, Continuous Order Fall Precautions. 03/20/24 9:50:23 CDT. Order comment: order placed from nursing documentation [email or web address] Neutropenic Precautions. 03/27/24 4:17:35 CDT, Continuous Order. Order comment: Notify provider if temp >38C or <36C; chills; HR>90; RR>20; SBP<90; Acute mental status change. Up Ad Brianna. 03/12/24 15:53:00 CDT, Continuous Order, assist as needed Code Status. Code Status Description: Full Code Patient remained in hospital overnight due to logistics with obtaining a ride. No acute changes from yesterday and planned to discharge today I personally saw and independently performed the critical/rush portions of the evaluation on the date of service with author, discussed the assessment and reviewed their note above. I agree with the documented findings I spent a total time of 45 minutes on this patient encounter which included but is not limited to personally reviewing history and previous encounters within our healthcare system EMR, external records and performing the rush aspects of the exam, reviewing and recommending orders, providing education to the patient/caregiver, and documentation in the medical record. All occurred on date of service. 04/18/2024 Discharge Summary Date of Admission Date of Discharge 04/17/2024 Reason for Hospitalization chemo initiation Hospital Course Patient is a 24 yo M w/ presumed intellectual disability who was admitted to from [facility] in [place], [place] for new diagnosis of acute leukemia on 03/14. BM bx showed B-Cell ALL and pt was admitted for cyclophosphamide chemotherapy on 03/15. Patient did not have DMC per psychiatry, and Sister was listed as DPOA. Patient was started on cycle 1 of hyper-CVAD on 04/07 with IT chemo performed on 04/09 and 04/15. Hospital course was complicated with transaminitis, which was suspected 2/2 Medication + cholelithiasis, RUQ US showed cholelithiasis without cholecystitis, and liver enzymes were downtrending. Discussed with heme/oncology service who were agreeable to discharging patient home with planned outpt follow up (heme/onc to order). patient will need twice weekly labs, and order was placed for [facility] in [place], [place] to draw them. Patient received 1 unit PRBC and Rituximab on 04/16. Patient was deemed stable for discharge with outpatient heme/onc follow up. Discharge Diagnoses 1. Acute leukemia of unspecified cell type 1. Acute leukemia of unspecified cell type not having achieved remission 1. 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 #Leukocytosis #Concerns for dental caries #Elevated liver enzymes #Hypoalbuminemia #Constipation Other Diagnoses Ongoing No qualifying data Historical No qualifying data Operations and Procedures Consultants Inpt Interventional Radiology Inpt Medicine Hematology/Oncology Inpt Psychiatry Inpt Surgery Oral Surgery Inpt Surgery Urology Pending Labs Minimal Residual Disease Clonality-Clonoseq (In Transit, Ordered 04/05/2024, 14:44) Minimal Residual Disease Tracking-Clonoseq (In Transit, Ordered 04/05/2024, 14:43) Discharge Disposition Home Medications New, Changed, or Refilled Medications acyclovir (acyclovir 200 mg) 400 mg, 2 capsule(s), Oral, bid, 60 capsule(s), 0 Refill(s) acyclovir (acyclovir 400 mg) 400 mg, Oral, bid, for 30 day(s), 60 Tablet(s), 0 Refill(s) cefpodoxime (cefpodoxime 200 200 mg, 1 Tablet(s), Oral, q12h, 30 Tablet(s), 0 Refill(s) gabapentin (gabapentin 100 m 100 mg, 1 capsule(s), Oral, bid, 60 capsule(s), 0 Refill(s) morphine (morphine 15 mg/8 t 15 mg, 1 Tablet(s), Oral, q12h, 24 Tablet(s), 0 Refill(s) oxyCODONE (oxyCODONE 5 mg) 15 mg, 3 Tablet(s), Oral, q4h, PRN: Pain, Moderate, 30 Tablet(s), 0 Refill(s) polyethylene glycol 3350 (Mi 17 g, Oral, Daily, 10 Each, 0 Refill(s) senna (senna (sennosides) 8. 8.6 mg, 1 Tablet(s), Oral, bid, 60 Tablet(s), 0 Refill(s) sodium bicarbonate (sodium b 650 mg, 1 Tablet(s), Oral, bid, 60 Tablet(s), 0 Refill(s) Medications to be Continued acetaminophen (acetaminophen 1,000 mg, 2 Tablet(s), Oral, q6h, PRN: as needed for pain ibuprofen (ibuprofen 200 mg) 400 mg, 2 Tablet(s), Oral, q6h, PRN: as needed for pain lactobacillus acidophilus (A 1 capsule(s), Oral, Daily tiZANidine (tiZANidine 4 mg) 4 mg, 1 Tablet(s), Oral, q6h, PRN: Muscle Spasm Discontinued Medications None Physical Exam at Discharge Vitals and Measurements T: 36.8 C TMIN: 36.5 C TMAX: 37.1 C HR: 103 RR: 20 BP: 117/64 SpO2: 100% General: No acute distress. Cooperative HEENT: Normocephalic, atraumatic; Normal conjunctiva Neck: supple, no thyromegaly Cardiovascular: regular rate and rhythm, no murmurs Respiratory: Clear lung to auscultation bilaterally. No wheezing or crackles. Gastrointestinal: Soft, nondistended, non-tender, BS+. MSK: normal ROM in all 4 extremities. No LE edema Neuro: Alert, Awake and Oriented. CN II-XII 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. Psych: normal affect, normal mood. Time Spent > 35 minutes Follow Up Appointments No qualifying data available Nursing/Other Orders Hematology/Oncology Nursing Adult Standard of Care. 03/26/24 13:49:00 CDT, Once, Day 12, B-cell acute lymphoblastic leukemia (ALL) Regular Diet. Ordered on 04/03/24 15:28:00 CDT, Meal Start Time Supper 1615 to 1745 Intake and Output. 03/12/24 15:53:00 CDT, Continuous Order Intake and Output (Strict I&O). 03/12/24 18:12:00 CDT, Continuous Order Fall Precautions. 03/20/24 9:50:23 CDT. Order comment: order placed from nursing documentation [email or web address] Neutropenic Precautions. 03/27/24 4:17:35 CDT, Continuous Order. Order comment: Notify provider if temp >38C or <36C; chills; HR>90; RR>20; SBP<90; Acute mental status change. Up Ad Brianna. 03/12/24 15:53:00 CDT, Continuous Order, assist as needed Code Status. Code Status Description: Full Code Patient remained in hospital overnight due to logistics with obtaining a ride. No acute changes from yesterday and planned to discharge today 04/17/2024 History and Physicals Results Value Date Source History and Physical Chief Complaint History of Present Illness Evelina Do is a 24-year-old male with presumed intellectual disability and B-cell ALL with [place] reservoir placed on 05/23 who was directly admitted today for HyperCVAD 4B chemotherapy. Since discharge, pt has been having diarrhea. Denies any abdominal pain, fever/chills. He has tooth pain and lower back pain. Lower back pain started since chemo was started. Tooth pain is something new for which they've set up an appointment with dentist but does not remember the exact date. He is taking Augmentin twice daily for that. Review of Systems All 14 systems were reviewed and all negative excepts as mentioned in HPI. Physical Exam Vitals and Measurements T: 36.9 C HR: 100 BP: 119/77 SpO2: 95% WT: 71.7 kg BMI: 21.5 General: Alert and oriented x3, No acute distress. HEENT: Moist oral mucosa, Normal conjunctiva Respiratory: Lungs are clear to auscultation, Respirations are non-labored Cardiovascular: Normal rate, Regular rhythm, No murmur GI: no tenderness to palpation, non-distended Musculoskeletal: No muscle tenderness, No lower extremity edema Skin: No rashes, warm Neuro: cooperative, no focal neurological deficits Assessment/Plan Evelina Do is a 24-year-old male with presumed intellectual disability and B-cell ALL with [place] reservoir placed on 05/23 who was admitted directly on 08/19 for HyperCVAD 4B chemotherapy. 24-hour plan: -Chemo initiation per oncology -GI PCR and C. diff colitis -Panorex for tooth pain -IR consulted BM biopsy on Monday. #B-cell acute lymphoblastic leukemia #[place] reservoir -Dr. Barrientos patient -Diagnosed 02/2024 -S/p HyperCVAD cycle 1A, 1B, 2A, 2B (MTX needed dose adjusted for elevated LFTs), 3A, 3B, 4A -Initiation of cycle 4B per oncology -Transfuse irradiated blood products for Hgb <7 and Plts <10k -PPx: levofloxacin, Fluconazole, Acyclovir, Bactrim (Bactrim on hold until methotrexate clears<0.1) -Continue Augmentin for ongoing dental infection/issues per oncology #Mild transaminitis -Likely chemo induced #Neoplasm related pain -Continue home MS Contin 15 mg BID -Takes acetaminophen h ydrocodone at home -Oxycodone 5 mg q6 hours PRN while inpatient -Dilaudid 0.5 mg IV q8 hours PRN for breakthrough pain -Continue home Gabapentin 100 mg BID #Chemotherapy induced nausea -Zofran scheduled per oncology -Prochlorperazine 10 mg TID PRN #Depression #Anxiety -Continue home Hydroxyzine 25 mg TID PRN -Continue home Zoloft 50 mg daily Diet: Regular DVT PPx: Lovenox Dispo: Heme/Onc inpatient from home Discharge planning: Pending chemo CODE: Full Pt staffed with Dr Andres Problem List/Past Medical History Ongoing B-cell acute lymphoblastic leukemia Intellectual disability Procedure/Surgical History ear tubes tonsillectomy Medications Inpatient acyclovir, 400 mg= 2 capsule(s), Oral, bid alteplase(Cathflo Activase), 2 mg= 2 mL, Catheter Dwell, Bedside, PRN amoxicillin-clavulanate(amoxicillin-clavulanat e (Augmentin) 875 mg-125 mg oral tablet), 875 mg= 1 Tablet(s), Oral, q12h dexAMETHAsone(dexAMETHAsone po), 12 mg= 3 Tablet(s), Oral, Chemo Once enoxaparin(enoxaparin - prophylactic dosing), 40 mg= 0.4 mL, Subcutaneous, At Bedtime fluconazole, 400 mg= 2 Tablet(s), Oral, Daily gabapentin, 100 mg= 1 capsule(s), Oral, bid heparin flush(Heparin Lock Flush), 300 units= 3 mL, IV Push, Once, PRN HYDROmorphone(Dilaudid Inj), 0.5 mg= 0.5 mL, Slow IV Push, q8h, PRN hydrOXYzine(hydrOXYzine hydrochloride 25 mg oral tablet), 25 mg= 1 Tablet(s), Oral, tid, PRN leucovorin, 25 mg= 1 Tablet(s), Oral, [id number] leucovorin + sodium chloride 0.9% 50 mL, 50 mg = 5 mL, form: Injection, IVPB, Chemo Once, Routine, first dose 09/14/24 7:27:00 DIRECT SERVICE PROFESSIONAL, Physician Stop, stop date 09/14/24 7:27:00 DIRECT SERVICE PROFESSIONAL, 220 mL/hr, infuse over 15 minute(s), Total volume (mL): 55, Day 1 levoFLOXacin(levoFLOXacin 500 mg oral tablet), 500 mg= 1 Tablet(s), Oral, Daily methotrexate + Dextrose 5% in Water 1,000 mL, 2,000 mg = 80 mL, form: Injection, IVPB, Chemo Once, Routine, first dose 09/12/24 19:28:00 DIRECT SERVICE PROFESSIONAL, Physician Stop, stop date 09/12/24 19:28:00 DIRECT SERVICE PROFESSIONAL, 45 mL/hr, infuse over 24 hour(s), 1,080, Day 1, Leukemia morphine(MS Contin), 15 mg= 1 Tablet(s), Oral, bid ondansetron(ondansetron oral), 24 mg= 3 Tablet(s), Oral, Chemo Once ondansetron(ondansetron 4 mg oral tablet, disintegrating), 8 mg= 2 Tablet(s), Oral, tid oxyCODONE(_oxyCODONE 5 mg oral tablet), 5 mg= 1 Tablet(s), Oral, q6h, PRN prochlorperazine, 10 mg= 2 mL, IV, [id number], PRN prochlorperazine, 10 mg= 1 Tablet(s), Oral, tid sertraline(Zoloft), 50 mg= 1 Tablet(s), Oral, Daily sodium bicarbonate(sodium bicarbonate PO), 1300 mg= 2 Tablet(s), Oral, [id number], PRN sodium bicarbonate 150 mEq + sterile water 1,000 mL(sodium bicarb for IV infusion 150 mEq + sterile water 1,000 mL), Total volume (mL): 1,150, Injection, IV, Rate: 200 mL/hr, Start date: 09/12/24 13:56:00 DIRECT SERVICE PROFESSIONAL, Stop date: 09/19/24 13:27:00 DIRECT SERVICE PROFESSIONAL, Day 1 Time Zero, 1 Each, Message, Chemo Once Home acetaminophen(acetaminophen 500 mg oral tablet), 1000 mg= 2 Tablet(s), Oral, q6h, PRN acetaminophen-HYDROcodone(acetaminophen-hydroc odone 325 mg-5 mg oral tablet), 1 Tablet(s), Oral, q6h, PRN acyclovir(acyclovir 200 mg oral capsule), 400 mg= 2 capsule(s), Oral, bid, 2 refills amoxicillin-clavulanate(amoxicillin-clavulanat e (Augmentin) 875 mg-125 mg oral tablet) fluconazole(fluconazole 200 mg oral tablet), 400 mg= 2 Tablet(s), Oral, Daily gabapentin(gabapentin 100 mg oral capsule), 100 mg= 1 capsule(s), Oral, bid gabapentin(gabapentin 100 mg oral capsule), 100 mg= 1 capsule(s), Oral, bid, 1 refills hydrOXYzine(hydrOXYzine hydrochloride 25 mg oral tablet), 25 mg= 1 Tablet(s), Oral, tid, PRN ibuprofen(ibuprofen 200 mg oral tablet), 400 mg= 2 Tablet(s), Oral, q6h, PRN lactobacillus acidophilus(Acidophilus Probiotic Blend oral capsule), 1 capsule(s), Oral, Daily levoFLOXacin(levoFLOXacin 500 mg oral tablet), 500 mg= 1 Tablet(s), Oral, Daily, 3 refills loperamide(loperamide 2 mg oral tablet), See Instructions, 1 refills morphine(MS Contin 15 mg oral tablet, extended release), 15 mg= 1 Tablet(s), Oral, bid ondansetron(ondansetron 8 mg oral tablet, disintegrating), 8 mg= 1 Tablet(s), Oral, tid, 1 refills prochlorperazine(prochlorperazine 10 mg oral tablet), 10 mg= 1 Tablet(s), Oral, tid, 1 refills sertraline(Zoloft 50 mg oral tablet), 50 mg= 1 Tablet(s), Oral, Daily, 3 refills sulfamethoxazole-trimethoprim(Bactrim DS 800 mg-160 mg oral tablet), 160 mg= 1 Tablet(s), Oral, qM W F, 1 refills Allergies NKA Social History Smoking Status Never smoker Alcohol - Denies Alcohol Use Substance Abuse Use:Current Frequency:1-2 times per week Tobacco - Denies Tobacco Use Family History Immunizations Lab Results CBC (09/12/24) WBC H 13.22 Hgb L 11.0 Hct L 33.8 MCV H 103.0 PLT 296 Comprehensive Metabolic Panel (09/12/24) Na+ 136 K+ 4.2 Cl- 99 CO2 26 Anion gap 15 GLU 106 BUN H 21 Creat 0.7 Estimated GFR f 132 Estimated GFR f Not Calculated Ca 9.7 Alk Phos 126 AST H 68 ALT H 71 T Bili 0.50 Total Protein 7.3 Alb 4.5 Hemolysis Index 0 Icteria Index 0 Lipemia Index 0 Diagnostic Results Attestation by Kyaw Kirkland MD on September 13, 2024 13:51 I personally saw and evaluated the patient on the result date found in the header of this document. I independently performed the critical/rush portions of the Evaluation and Management service and discussed the management with the author of this document. I agree with everything documented above with the following exceptions/additions: 09/12/2024 History and Physical Chief Complaint chemo inpatient History of Present Illness Evelina Do is a 24-year-old male with presumed intellectual disability and B-cell ALL with [place] reservoir placed on 05/23 who was directly admitted today for HyperCVAD 4A chemotherapy. Since discharge on 07/24, patient reports he has been doing fine. He was unable to get labs checked as he nor his sister had any means of transportation. He does not know what medications he takes at home. He was smoking weed prior to admission. Denies any alcohol or tobacco use. He denies any recent sickness including cough, runny nose, sore throat, urinary symptoms. Denies chest pain or SOB. He does endorse 7-8 in his lower back and requests Dilaudid. His appetite at home is good, but it usually is not great here due to the food. Review of Systems Complete review of 14 systems was performed and was otherwise negative other than that mentioned above in the history of present illness. Physical Exam Vitals and Measurements T: 36.6 C HR: 88 RR: 16 BP: 126/71 SpO2: 98% WT: 74.7 kg General: Awake and alert. In no apparent distress. Mildly disheveled. Thin appearing male. HEENT: EOMI. Normocephalic. Moist mucous membranes. Very poor dentition Cardiovascular: RRR. No murmurs, rubs or gallops appreciated. Lungs: CTA bilaterally. No wheezes, rales or rhonchi. Abdomen: Non-tender, non-distended. Normoactive bowel sounds. Extremities: No cyanosis or clubbing. No edema. Neuro: Cranial Nerves II-XI 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. Psych: Appropriate mood and affect. Assessment/Plan Evelina Do is a 24-year-old male with presumed intellectual disability and B-cell ALL with [place] reservoir placed on 05/23 who was admitted directly on 08/19 for HyperCVAD 4A chemotherapy. 24-hour plan: -Chemo initiation per oncology -Replace PICC line -Pain control, confirm if MS Contin was discontinued 07/24, prior to starting it #B-cell acute lymphoblastic leukemia #[place] reservoir -Dr. Barrientos patient -Diagnosed 02/2024 -S/p HyperCVAD cycle 1A, 1B, 2A, 2B (MTX needed dose adjusted for elevated LFTs), 3A, 3B -Initiation of cycle 4A per oncology -Transfuse irradiated blood products for Hgb <7 and Plts <10k -PPx: Fluconazole, Acyclovir, Bactrim -Continue Augmentin for ongoing dental infection/issues per oncology -Okay to hold levofloxacin until ANC <500 -PICC line placed 06/27 #Neoplasm related pain -Home MS Contin 15 mg BID appears to have been discontinued at discharge on 07/24, will confirm with patient -Takes acetaminophen h ydrocodone at home -Oxycodone 5 mg q6 hours PRN while inpatient -Dilaudid 0.5 mg IV q8 hours PRN for breakthrough pain -Continue home Gabapentin 100 mg BID #Chemotherapy induced nausea -Zofran scheduled per oncology -Prochlorperazine 10 mg TID PRN #Depression #Anxiety -Continue home Hydroxyzine 25 mg TID PRN -Continue home Zoloft 50 mg daily Diet: Regular DVT PPx: Lovenox Dispo: Heme/Onc inpatient Discharge planning: Pending chemo CODE: Full Social Patient has complex social issues. He lives with his sister. No means of transport to come to the hospital for chemotherapy. environmental field office manager can arrange Medicare right which can be only 1 ride per week and patient lives 3 hours away. Patient has been staffed with Dr. Dario Madsen. Iveth Maloney, DO PGY-2 Internal Medicine. Problem List/Past Medical History Ongoing B-cell acute lymphoblastic leukemia Intellectual disability Procedure/Surgical History ear tubes tonsillectomy Medications Home acetaminophen(acetaminophen 500 mg oral tablet), 1000 mg= 2 Tablet(s), Oral, q6h, PRN acetaminophen-HYDROcodone(acetaminophen-hydroc odone 325 mg-5 mg oral tablet), 1 Tablet(s), Oral, q6h, PRN acyclovir(acyclovir 200 mg oral capsule), 400 mg= 2 capsule(s), Oral, bid, 2 refills amoxicillin-clavulanate(amoxicillin-clavulanat e (Augmentin) 875 mg-125 mg oral tablet), 1 Tablet(s), Oral, bid dexAMETHAsone(dexAMETHAsone 4 mg oral tablet), 40 mg, Oral, Daily fluconazole(fluconazole 200 mg oral tablet), 400 mg= 2 Tablet(s), Oral, Daily fluconazole(fluconazole 200 mg oral tablet), 400 mg= 2 Tablet(s), Oral, Daily gabapentin(gabapentin 100 mg oral capsule), 100 mg= 1 capsule(s), Oral, bid gabapentin(gabapentin 100 mg oral capsule), 100 mg= 1 capsule(s), Oral, bid, 1 refills hydrOXYzine(hydrOXYzine hydrochloride 25 mg oral tablet), 25 mg= 1 Tablet(s), Oral, tid, PRN ibuprofen(ibuprofen 200 mg oral tablet), 400 mg= 2 Tablet(s), Oral, q6h, PRN lactobacillus acidophilus(Acidophilus Probiotic Blend oral capsule), 1 capsule(s), Oral, Daily levoFLOXacin(levoFLOXacin 500 mg oral tablet), 500 mg= 1 Tablet(s), Oral, Daily, 3 refills loperamide(loperamide 2 mg oral tablet), See Instructions, 1 refills ondansetron(ondansetron 8 mg oral tablet, disintegrating), 8 mg= 1 Tablet(s), Oral, tid, 1 refills prochlorperazine(prochlorperazine 10 mg oral tablet), 10 mg= 1 Tablet(s), Oral, tid, 1 refills sertraline(Zoloft 50 mg oral tablet), 50 mg= 1 Tablet(s), Oral, Daily, 3 refills sulfamethoxazole-trimethoprim(Bactrim DS 800 mg-160 mg oral tablet), 160 mg= 1 Tablet(s), Oral, qM W F, 1 refills Allergies NKA Social History Smoking Status Never smoker Alcohol - Denies Alcohol Use Substance Abuse Use:Current Frequency:1-2 times per week Tobacco - Denies Tobacco Use Lab Results Pending labs I personally saw and evaluated the patient on the result date found in the header of this document. I independently performed the critical/rush portions of the Evaluation and Management service and discussed the management with the author of this document. 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 He endorses a bit of pain around the lower back that started today while he was driving to the hospital. The pain occasionally radiates to his legs. The pain occurs around 2-3 times per day. He is not sure how long the pain lasts. He denies any triggering factors. Taking medications or relaxing seems to help. He denies weakness, numbness, bowel incontinence or bladder incontinence. He also endorses some pain around the anterior aspects of his legs that started when he started chemotherapy. The pain does not radiate. Nothing seems to make it better. The pain only occurs with palpation. He is ambulating without pain. He does not believe he is taking Augmentin anymore though he has not seen a dentist recently. He is not sure about what other medications he takes. He has noticed some pain around his left upper teeth that started a few days ago. Denies inciting accident. He feels the pain has been about the same since starting. The pain is worse with pressure or eating. He reports last seeing a dentist a long time ago. he reports that his sister is trying to make an appointment with a dentist for him soon. Denies nausea, vomiting, fever, chills, cough or dyspnea. Social hx: Lives with sister. Smokes marijuana when he is pain but is unsure how often he smokes. Denies alcohol or other drug use. Family hx: Denies Review of Systems A complete ROS was performed and was negative except as described in HPI Physical Exam Vitals and Measurements T: 36.7 C HR: 98 RR: 16 BP: 118/74 SpO2: 97% WT: 72.1 kg BMI: 21.6 General: No acute distress HEENT: Extraocular movements are intact, conjunctival without erythema. Mouth: Multiple missing teeth around left upper row. Neck: Supple Respiratory: Lungs are clear to auscultation. No wheezes, rubs, or rhonchi. Cardiovascular: Regular rate and rhythm. Normal S1 and S2. No murmurs or gallops. Abdomen: Soft, nontender, and non-distended. Skin: No obvious rashes, lesions, or skin breakdown. Extremities: No LE edema. Pain with palpation around anterior legs. Neurological: No focal deficits noted. Psychiatric: Alert and oriented. Cooperative, normal affect. 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 B-cell acute lymphoblastic [facility] -Diagnosed 02/2024 -S/p HyperCVAD cycle 1A, 1B, 2A, 2B (MTX needed to be dose adjusted for elevated LFTs), 3A -CXR 07/19/24 showed interval placement of right upper extremity PICC with distal tip terminating in the distal SVC -Initiation of cycle 3B per oncology -Transfuse irradiated blood products for Hgb <7 and Plts <10k -PPx: Fluconazole, Acyclovir, Bactrim (hold until high dose Methotrexate is cleared) -Okay to hold levofloxacin until ANC <500 Low back pain Leg pain Neoplasm related pain -Takes acetaminophen h ydrocodone at home -Continue home MS Contin 15 mg twice daily -Continue home Gabapentin 100 mg BID -Dilaudid IV as needed Dental pain -Encouraged patient to follow up with dentist -Continue Augmentin Chemotherapy induced nausea -Continue home Zofran as needed -IV Prochlorperazine as needed Diet: Regular DVT PPx: Lovenox Dispo: Heme/Onc inpatient Discharge planning: Pending chemo CODE: Full Patient staffed with attending, Dr. Madsen Problem List/Past Medical History Ongoing B-cell acute lymphoblastic leukemia Intellectual disability Procedure/Surgical History ear tubes tonsillectomy Medications Home acetaminophen(acetaminophen 500 mg oral tablet), 1000 mg= 2 Tablet(s), Oral, q6h, PRN acetaminophen-HYDROcodone(acetaminophen-hydroc odone 325 mg-5 mg oral tablet), 1 Tablet(s), Oral, q6h, PRN acyclovir(acyclovir 200 mg oral capsule), 400 mg= 2 capsule(s), Oral, bid amoxicillin-clavulanate(amoxicillin-clavulanat e (Augmentin) 875 mg-125 mg oral tablet), 1 Tablet(s), Oral, bid, 2 refills fluconazole(fluconazole 200 mg oral tablet), 400 mg= 2 Tablet(s), Oral, Daily fluconazole(fluconazole 200 mg oral tablet), 400 mg= 2 Tablet(s), Oral, Daily gabapentin(gabapentin 100 mg oral capsule), 100 mg= 1 capsule(s), Oral, bid, 1 refills ibuprofen(ibuprofen 200 mg oral tablet), 400 mg= 2 Tablet(s), Oral, q6h, PRN lactobacillus acidophilus(Acidophilus Probiotic Blend oral capsule), 1 capsule(s), Oral, Daily levoFLOXacin(levoFLOXacin 500 mg oral tablet), 500 mg= 1 Tablet(s), Oral, Daily loperamide(loperamide 2 mg oral tablet), See Instructions, 1 refills morphine(MS Contin 15 mg oral tablet, extended release), 15 mg= 1 Tablet(s), Oral, q12h ondansetron(ondansetron 8 mg oral tablet, disintegrating), 8 mg= 1 Tablet(s), Oral, tid, 1 refills prochlorperazine(prochlorperazine 10 mg oral tablet), 10 mg= 1 Tablet(s), Oral, tid, 1 refills sulfamethoxazole-trimethoprim(Bactrim DS 800 mg-160 mg oral tablet), 160 mg= 1 Tablet(s), Oral, qM W F, 1 refills Allergies NKA Social History Smoking Status Never smoker Alcohol - Denies Alcohol Use Substance Abuse Use:Current Frequency:1-2 times per week Tobacco - Denies Tobacco Use Family History Immunizations Lab Results CBC (07/19/24) WBC 4.69 Hgb L 11.1 Hct L 34.4 MCV 95.0 PLT 274 Auto Differential % nRBC 0.0 Absolute nRBC 0.0 % Neutrophils 55.7 Absolute Neut 2.61 % Im Granulocyt H 2.80 Absolute Im Gra H 0.13 % Lymphocytes 18.8 % Monocytes 21.7 % Eosinophils 0.4 % Basophils 0.6 Comprehensive Metabolic Panel (07/08/24) Na+ 140 K+ 4.0 Cl- 106 CO2 26 Anion gap 12 GLU 89 BUN 7 Creat L 0.5 Estimated GFR f 144 Estimated GFR f Not calculated Ca 9.2 Alk Phos 100 AST 15 ALT 22 T Bili L 0.26 Total Protein 5.9 Alb 3.9 Hemolysis Index 0 Icteria Index 0 Lipemia Index 0 Diagnostic Results I personally saw and evaluated the patient on the result date found in the header of this document. I independently performed the critical/rush portions of the Evaluation and Management service and discussed the management with the author of this document. 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 Patient send since discharge she has been doing fine. He endorses chronic pain and some depression but otherwise no shortness of breath no chest pain. No recent sicknesses. He is currently in pain due to PICC line placement in his right arm. He does not want to chat too much right now. He says he is smoking weed when he has it, but he does wait 1 to 2 hours after he takes his medications. He is unsure of which exact medications he takes at home. He does not smoke any cigarettes or drink any alcohol. Otherwise no complaints at this time. Review of Systems Complete review of 14 systems was performed and was otherwise negative other than that mentioned above in the history of present illness. Physical Exam Vitals and Measurements T: 36.9 C HR: 78 RR: 16 BP: 121/72 SpO2: 98% WT: 74.3 kg BMI: 22.2 General: Awake and alert. In no apparent distress. Mildly disheveled. Thin appearing male. HEENT: EOMI. Normocephalic. Moist mucous membranes. Very poor dentition Cardiovascular: RRR. No murmurs, rubs or gallops appreciated. Lungs: CTA bilaterally. No wheezes, rales or rhonchi. Abdomen: Non-tender, non-distended. Normoactive bowel sounds. Extremities: No cyanosis or clubbing. No edema. Neuro: Cranial Nerves II-XI 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. Psych: Appropriate mood and affect. 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 24-hour plan: -Chemo initiation per oncology -Pain control #B-cell acute lymphoblastic leukemia #[place] reservoir -Dr. Barrientos patient -Diagnosed 02/2024 -S/p HyperCVAD cycle 1A, 1B, 2A, 2B (MTX needed dose adjusted for elevated LFTs) -Initiation of cycle 3A per oncology -Transfuse irradiated blood products for Hgb <7 and Plts <10k -PPx: Fluconazole, Acyclovir, Bactrim -Continue Augmentin for ongoing dental infection/issues per oncology -Okay to hold levofloxacin until ANC <500 -PICC line placed 06/27 #Neoplasm related pain -Continue home MS Contin 15 mg twice daily -Takes acetaminophen h ydrocodone at home -Oxycodone 5 mg q6 hours PRN while inpatient -One time Dilaudid 0.5 IV for PICC line placement pain -Continue home Gabapentin 100 mg BID #Chemotherapy induced nausea -Zofran scheduled per oncology -Prochlorperazine 10 mg TID PRN Diet: Regular DVT PPx: Lovenox Dispo: Heme/Onc inpatient Discharge planning: Pending chemo CODE: Full Social Patient has complex social issues. He lives with his sister. No means of transport to come to the hospital for chemotherapy. environmental field office manager can arrange Medicare right which can be only 1 ride per week and patient lives 3 hours away. Patient has been staffed with Dr. Dario Madsen. Iveth Maloney, DO PGY-2 Internal Medicine. Problem List/Past Medical History Ongoing B-cell acute lymphoblastic leukemia Intellectual disability Procedure/Surgical History ear tubes tonsillectomy Medications Inpatient acyclovir, 400 mg= 2 capsule(s), Oral, bid alteplase(Cathflo Activase), 2 mg= 2 mL, Catheter Dwell, Bedside, PRN amoxicillin-clavulanate(amoxicillin-clavulanat e (Augmentin) 875 mg-125 mg oral tablet), 875 mg= 1 Tablet(s), Oral, bid cycloPHOSphamide, 600 mg = 30 mL, form: Injection, IVPB, [id number], Routine, first dose 06/27/24 17:00:00 CDT, order duration: 2 dose(s), Physician Stop, stop date 06/28/24 5:00:00 CDT, 140 mL/hr, infuse over 2 hour(s), Total volume (mL): 280, Day 1 dexAMETHAsone(dexAMETHAsone po), 40 mg= 10 Tablet(s), Oral, Chemo Once fluconazole, 400 mg= 2 Tablet(s), Oral, Daily gabapentin, 100 mg= 1 capsule(s), Oral, bid heparin flush(Heparin Lock Flush), 300 units= 3 mL, IV Push, Once, PRN HYDROmorphone(Dilaudid Inj), 0.5 mg= 0.5 mL, Slow IV Push, Once mesna, 1,200 mg = 12 mL, form: Injection, IV, Chemo Once, Routine, first dose 06/27/24 15:19:00 CDT, Physician Stop, stop date 06/27/24 15:19:00 CDT, 4.67 mL/hr, infuse over 24 hour(s), Total volume (mL): 112, Day 1 morphine(MS Contin), 15 mg= 1 Tablet(s), Oral, q12h ondansetron(ondansetron oral), 16 mg= 2 Tablet(s), Oral, [id number] oxyCODONE(oxyCODONE 5 mg oral tablet), 5 mg= 1 Tablet(s), Oral, q6h, PRN prochlorperazine, 10 mg= 1 Tablet(s), Oral, tid, PRN sulfamethoxazole-trimethoprim(Bactrim DS), 160 mg= 1 Tablet(s), Oral, qM W F Time Zero, 1 Each, Message, Chemo Once Home acetaminophen(acetaminophen 500 mg oral tablet), 1000 mg= 2 Tablet(s), Oral, q6h, PRN acetaminophen-HYDROcodone(acetaminophen-hydroc odone 325 mg-5 mg oral tablet), 1 Tablet(s), Oral, q6h, PRN acyclovir(acyclovir 200 mg oral capsule), 400 mg= 2 capsule(s), Oral, bid amoxicillin-clavulanate(amoxicillin-clavulanat e (Augmentin) 875 mg-125 mg oral tablet), 1 Tablet(s), Oral, bid, 2 refills dexAMETHAsone(dexAMETHAsone 4 mg oral tablet), 40 mg, Oral, Daily fluconazole(fluconazole 200 mg oral tablet), 400 mg= 2 Tablet(s), Oral, Daily gabapentin(gabapentin 100 mg oral capsule), 100 mg= 1 capsule(s), Oral, bid, 1 refills ibuprofen(ibuprofen 200 mg oral tablet), 400 mg= 2 Tablet(s), Oral, q6h, PRN lactobacillus acidophilus(Acidophilus Probiotic Blend oral capsule), 1 capsule(s), Oral, Daily levoFLOXacin(levoFLOXacin 500 mg oral tablet), 500 mg= 1 Tablet(s), Oral, Daily loperamide(loperamide 2 mg oral tablet), See Instructions, 1 refills morphine(MS Contin 15 mg oral tablet, extended release), 15 mg= 1 Tablet(s), Oral, q12h ondansetron(ondansetron 8 mg oral tablet, disintegrating), 8 mg= 1 Tablet(s), Oral, tid, 1 refills prochlorperazine(prochlorperazine 10 mg oral tablet), 10 mg= 1 Tablet(s), Oral, tid, 1 refills sulfamethoxazole-trimethoprim(Bactrim DS 800 mg-160 mg oral tablet), 160 mg= 1 Tablet(s), Oral, qM W F, 1 refills Allergies NKA Social History Smoking Status Never smoker Alcohol - Denies Alcohol Use Substance Abuse Use:Current Frequency:1-2 times per week Tobacco - Denies Tobacco Use Lab Results CBC (06/27/24) WBC 5.79 Hgb L 10.5 Hct L 32.9 MCV 94.0 PLT 253 Auto Differential % nRBC 0.0 Absolute nRBC 0.0 % Neutrophils 57.2 Absolute Neut 3.31 % Im Granulocyt H 1.70 Absolute Im Gra H 0.10 % Lymphocytes 15.0 % Monocytes 24.4 % Eosinophils 0.5 % Basophils 1.2 Comprehensive Metabolic Panel (06/27/24) Na+ 141 K+ 3.9 Cl- 106 CO2 27 Anion gap 12 GLU 87 BUN 10 Creat L 0.6 Estimated GFR f 137 Estimated GFR f Not calculated Ca 9.6 Alk Phos 87 AST 30 ALT 28 T Bili 0.36 Total Protein 6.3 Alb 3.8 Hemolysis Index 0 Icteria Index 0 Lipemia Index 0 Diagnostic Results N/A I personally saw and evaluated the patient on the result date found in the header of this document. I independently performed the critical/rush portions of the Evaluation and Management service and discussed the management with the author of this document. I agree with everything documented above with the following exceptions/additions: none 06/27/2024 History and Physical Chief Complaint B-cell AL L completed cycle 1 of chemotherapy History of Present Illness Evelina is a 24-year-old M with PMH of intellectual disability who is recently diagnosed with B-cell AL L who just completed cycle 1 of chemotherapy. Neurosurgery was consulted for placement of ventricular access for initiation of intrathecal chemo. The patient underwent a bone marrow biopsy on 03/15 (results pending) and an MRI brain on the same day which was negative. He is seen at bedside, family in the room. He appears very lethargic and extremely irritable and poorly responsive to questions or cooperative on exam. He reports generalized aches and fatigue and painful leg swelling. Does not take any blood thinners at home. Review of Systems 14 point review of systems is unremarkable except as noted above Physical Exam Vitals and Measurements T: 36.8 C TMIN: 36.6 C TMAX: 36.8 C HR: 113 RR: 13 BP: 143/97 SpO2: 98% WT: 93.6 kg BMI: 24.4 Appears lethargic On room air Breathing unlabored Lower extremity swollen Full strength in the uppers Full strength in the lowers (severely pain limited exam) Cranial nerves 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 No pronator drift Assessment/Plan 24-year-old M with B-cell AL L on cycle 1 of chemotherapy. Independent review of MRI brain shows no remarkable findings. Last Platelets 255, INR 0.9. - will proceed with placement of [place] reservoir today - remained npo overnight - awaits labs this am Problem List/Past Medical History Ongoing B-cell acute lymphoblastic leukemia Intellectual disability Historical No qualifying data Procedure/Surgical History ear tubes tonsillectomy Medications Inpatient No active inpatient medications Home acetaminophen 500 mg oral tablet, 1000 mg= 2 Tablet(s), Oral, q6h, PRN Acidophilus Probiotic Blend oral capsule, 1 capsule(s), Oral, Daily acyclovir 400 mg oral tablet, 400 mg, Oral, bid amoxicillin-clavulanate (Augmentin) 875 mg-125 mg oral tablet, 1 Tablet(s), Oral, bid, 2 refills Bactrim DS 800 mg-160 mg oral tablet, 160 mg= 1 Tablet(s), Oral, qM W F, 1 refills fluconazole 200 mg oral tablet, 400 mg, Oral, Daily, 3 refills gabapentin 100 mg oral capsule, 100 mg= 1 capsule(s), Oral, bid ibuprofen 200 mg oral tablet, 400 mg= 2 Tablet(s), Oral, q6h, PRN levoFLOXacin 500 mg oral tablet, 500 mg, Oral, Daily loperamide 2 mg oral tablet, See Instructions, 1 refills Morphine Sulfate IR 10 mg/5 ml oral solution, 5 mg= 2.5 mL, Oral, q4h, PRN MS Contin 15 mg oral tablet, extended release, 15 mg= 1 Tablet(s), Oral, q12h ondansetron 8 mg oral tablet, disintegrating, 8 mg= 1 Tablet(s), Oral, tid, 1 refills prochlorperazine 10 mg oral tablet, 10 mg= 1 Tablet(s), Oral, tid, 1 refills Allergies NKA Social History Smoking Status Never smoker Family History Immunizations Lab Results Diagnostic Results MRI Brain from 03/[address] sammy from yesterday reviewed independently which identified no acute intracranial abnormalities 05/23/2024 History and Physical Chief Complaint Neutropenic fever History of Present Illness Patient is a 24 yo M w/ presumed intellectual disability who was recently admitted to from [facility] in [place], [place] for new diagnosis of acute leukemia on 03/14. He was recently admitted, and ultimately discharged on 04/18 (discharge summary below) BM bx showed B-Cell ALL and pt was admitted for cyclophosphamide chemotherapy on 03/15. Patient did not have DMC per psychiatry, and Sister was listed as DPOA. Patient was started on cycle 1 of hyper-CVAD on 04/07 with IT chemo performed on 04/09 and 04/15. Hospital course was complicated with transaminitis, which was suspected 2/2 Medication + cholelithiasis, RUQ US showed cholelithiasis without cholecystitis, and liver enzymes were downtrending. Discussed with heme/oncology service who were agreeable to discharging patient home with planned outpt follow up (heme/onc to order). patient will need twice weekly labs, and order was placed for [facility] in [place], [place] to draw them. Patient received 1 unit PRBC and Rituximab on 04/16. Patient was deemed stable for discharge with outpatient heme/onc follow up . He returns today after he presented to an OSH for a tooth abscess and a fever at home. He was found to be significantly neutropenic. He was started on meropenam then transferred to for further worlk up. On my interview with the patient, he reports that besides the fever and tooth ache, he currently does not have any other symptoms. He deneis feeling chills, shortness of breath, chest pain, diarrhea, nausea, vomiting,or dysuria. Review of Systems 14 pt ROS negative unless stated in HPI. Physical Exam Vitals and Measurements T: 36.8 C HR: 99 RR: 17 BP: 124/75 SpO2: 100% General: Alert and oriented. No distress. Eye: EOMI. Normal conjunctiva. HENT: Normal hearing. Moist oral mucosa. No lymphadenopathy. Cardiovascular: Regular rate and rhythm. Radial pulse palpable. Pulmonary: Clear to auscultation bilaterally. Normal effort. Abdomen: Soft. Nontender. Musculoskeletal: No lower extremity edema. Nontender. Skin: Warm and dry. Neuro: No focal deficits. Normal gait. Psychiatric: Cooperative. Appropriate affect. Assessment/Plan Patient is a 24 yo M w/ presumed intellectual disability who was admitted to from [facility] in [place], [place] for new diagnosis of acute leukemia on 03/14. He was recently admitted, and ultimately discharged on 04/18 He is now admitted to the H/O service with neutropenic fever and tooth abscess. Profound neutropenia likely 2/2 recent chemotherapy. #Tooth abscess Neutropenic fever - Started on meropenem @ OSH, swithced to zosyn here - CXR, UA, BCx - Continue Zosyn - No indication for repeat TTE given normal TTE very recently. - Neutropenic precautions #B-Cell ALL #Neutropenia #Thrombocytopenia - Flow cytometry consistent with B-Cell ALL from time of last admission - Hepatitis testing/HIV negative - Normal TTE at last admission, will not repeat here. - Normal brain MRI - BM Bx 04/04 with IR - received cycle 1 hyper-CVAD and intrathecal chemotherapy inpatient during last admission - Continue home pain meds - Holding DVT prophylaxis given profound thrombocytopenia, CTM on CBC. 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 - Abd US shows hepatic steatosis, hepatomegaly - Daily LFTs - Dose adjust medications to the patient's hepatic function - CT A/P unremarkable except for some splenomegaly at time of last admission #Constipation - Doc/Senna BID + MiraLAX qday Code Status: Full Code Diet: Regular Diet Dispo: Heme/Onc floor DVT ppx: SCDs To be formally staffed in the AM. patient complained of pain in his teeth. he had no fevers since presentation General: Awake and cooperative HEENT: Normocephalic, left side perioral swelling Cardiac: HRRR, no murmurs, gallops or rubs. No peripheral edema Respiratory: Lungs CTAB, no wheezes or crackles GI: Bowel sounds present, non-distended, non-tender Musculoskeletal: Full ROM, muscle strength 5/5 in all four extremities Plan - Follow OSH blood cultures - Continue IV antibiotics - Planning for chemotherapy next week Problem List/Past Medical History Ongoing No chronic problems Historical No qualifying data Procedure/Surgical History Medications Inpatient acetaminophen 500 mg oral tablet, 1000 mg= 2 Tablet(s), Oral, q6h, PRN acyclovir, 400 mg= 2 capsule(s), Oral, bid gabapentin, 100 mg= 1 capsule(s), Oral, bid MiraLax, 17 g= 1 Packet, Oral, Daily morphine extended release, 15 mg= 1 Tablet(s), Oral, q12h senna (sennosides) 8.6 mg oral tablet, 8.6 mg= 1 Tablet(s), Oral, bid sodium bicarbonate 650 mg oral tablet, 650 mg= 1 Tablet(s), Oral, bid tiZANidine, 4 mg= 1 Tablet(s), Oral, q6h, PRN Zosyn Home acetaminophen 500 mg oral tablet, 1000 mg= 2 Tablet(s), Oral, q6h, PRN Acidophilus Probiotic Blend oral capsule, 1 capsule(s), Oral, Daily acyclovir 200 mg oral capsule, 400 mg= 2 capsule(s), Oral, bid acyclovir 400 mg oral tablet, 400 mg, Oral, bid cefdinir 300 mg oral capsule, 300 mg= 1 capsule(s), Oral, q12h gabapentin 100 mg oral capsule, 100 mg= 1 capsule(s), Oral, bid ibuprofen 200 mg oral tablet, 400 mg= 2 Tablet(s), Oral, q6h, PRN MiraLax oral powder for reconstitution, 17 g, Oral, Daily morphine 15 mg/8 to 12 hr oral tablet, extended release, 15 mg= 1 Tablet(s), Oral, q12h senna (sennosides) 8.6 mg oral tablet, 8.6 mg= 1 Tablet(s), Oral, bid sodium bicarbonate 650 mg oral tablet, 650 mg= 1 Tablet(s), Oral, bid tiZANidine 4 mg oral tablet, 4 mg= 1 Tablet(s), Oral, q6h, PRN Allergies NKA Social History Smoking Status Former smoker quit within 12 months Family History Immunizations Lab Results Diagnostic Results I personally saw and evaluated the patient on the result date found in the header of this document. I independently performed the critical/rush portions of the Evaluation and Management service and discussed the management with the author of this document. I agree with everything documented above with the following exceptions/additions: none CBC (04/26/24) WBC 6.84 Hgb L 6.3 Hct C 18.8 MCV 92.9 PLT H 969 Comprehensive Metabolic Panel (04/26/24) Na+ 136 K+ L 3.2 Cl- 102 CO2 27 Anion gap 10 GLU 127 BUN 7 Creat L 0.6 Estimated GFR f 138 Estimated GFR f Not calculated Ca 8.6 Alk Phos H 169 AST 11 ALT 24 T Bili 0.55 Total Protein L 5.6 Alb L 3.1 Hemolysis Index 0 Icteria Index 0 Lipemia Index 0 04/26/2024 Vital Signs Vital Sign Value Date Comments Source Respiratory Rate 14 breaths/min 11/12/2024 17:27:13 [facility] Mean NIBP 88 mm[Hg] 11/12/2024 17:27:13 [facility] Heart Rate 82 bpm 11/12/2024 17:27:13 [facility] SpO2 98 % 11/12/2024 17:27:13 [facility] Temperature (Celsius) 36.5 Cheri 11/12/2024 17:27:13 [facility] SBP NIBP 121 mm[Hg] 11/12/2024 17:27:13 [facility] DBP NIBP 72 mm[Hg] 11/12/2024 17:27:13 [facility] SBP NIBP 116 mm[Hg] 10/25/2024 15:13:00 [facility] DBP NIBP 71 mm[Hg] 10/25/2024 15:13:00 [facility] Heart Rate 88 bpm 10/25/2024 15:13:00 [facility] Weight (kg) 80.8 kg 10/25/2024 15:13:00 [facility] Temperature (Celsius) 36.9 Cheri 10/25/2024 15:13:00 [facility] SpO2 99 % 10/25/2024 15:13:00 [facility] Respiratory Rate 16 breaths/min 09/18/2024 14:11:21 [facility] SpO2 97 % 09/18/2024 14:11:21 [facility] SBP NIBP 122 mm[Hg] 09/18/2024 14:11:21 [facility] DBP NIBP 76 mm[Hg] 09/18/2024 14:11:21 [facility] Mean NIBP 91 mm[Hg] 09/18/2024 14:11:21 [facility] Heart Rate 98 bpm 09/18/2024 14:11:21 [facility] Temperature (Celsius) 36.7 Cheri 09/18/2024 14:11:21 [facility] Temperature (Celsius) 36.9 Cheri 09/18/2024 11:27:18 [facility] Respiratory Rate 16 breaths/min 09/18/2024 11:27:18 [facility] SBP NIBP 113 mm[Hg] 09/18/2024 11:27:18 [facility] DBP NIBP 65 mm[Hg] 09/18/2024 11:27:18 [facility] Mean NIBP 81 mm[Hg] 09/18/2024 11:27:18 [facility] SpO2 98 % 09/18/2024 11:27:18 [facility] Heart Rate 92 bpm 09/18/2024 11:27:18 [facility] Heart Rate 88 bpm 09/18/2024 06:56:22 [facility] Temperature (Celsius) 36.6 Cheri 09/18/2024 06:56:22 [facility] SpO2 99 % 09/18/2024 06:56:22 [facility] Respiratory Rate 15 breaths/min 09/18/2024 06:56:22 [facility] SBP NIBP 134 mm[Hg] 09/18/2024 06:56:22 [facility] DBP NIBP 75 mm[Hg] 09/18/2024 06:56:22 [facility] Mean NIBP 95 mm[Hg] 09/18/2024 06:56:22 [facility] Height (cm) 182.8 cm 09/18/2024 02:00:00 [facility] SpO2 99 % 09/18/2024 01:48:20 [facility] Heart Rate 90 bpm 09/18/2024 01:48:20 [facility] Temperature (Celsius) 36.8 Cheri 09/18/2024 01:48:20 [facility] Respiratory Rate 16 breaths/min 09/18/2024 01:48:20 [facility] SBP NIBP 102 mm[Hg] 09/18/2024 01:48:20 [facility] DBP NIBP 63 mm[Hg] 09/18/2024 01:48:20 [facility] Mean NIBP 76 mm[Hg] 09/18/2024 01:48:20 [facility] Height (cm) 182.8 cm 09/17/2024 14:34:00 [facility] Height (cm) 182.8 cm 09/16/2024 15:00:00 [facility] Height (cm) 182.8 cm 09/15/2024 15:00:00 [facility] BMI 21.5 kg/m2 09/12/2024 18:02:00 [facility] Weight (kg) 71.7 kg 09/12/2024 18:02:00 [facility] Heart Rate 137 bpm 09/12/2024 16:42:00 [facility] Weight (kg) 71.7 kg 09/12/2024 16:42:00 [facility] SBP NIBP 119 mm[Hg] 09/12/2024 16:42:00 [facility] DBP NIBP 82 mm[Hg] 09/12/2024 16:42:00 [facility] SpO2 96 % 09/12/2024 16:42:00 [facility] Temperature (Celsius) 36.7 Cheri 09/12/2024 16:42:00 [facility] SBP NIBP 118 mm[Hg] 09/03/2024 19:40:55 [facility] DBP NIBP 65 mm[Hg] 09/03/2024 19:40:55 [facility] 89 bpm 09/03/2024 19:40:55 [facility] Mean NIBP 83 mm[Hg] 09/03/2024 19:40:55 [facility] SBP NIBP 109 mm[Hg] 09/03/2024 18:44:45 [facility] DBP NIBP 60 mm[Hg] 09/03/2024 18:44:45 [facility] Heart Rate 92 bpm 09/03/2024 18:44:45 [facility] Mean NIBP 76 mm[Hg] 09/03/2024 18:44:45 [facility] SBP NIBP 122 mm[Hg] 09/03/2024 18:14:48 [facility] DBP NIBP 41 mm[Hg] 09/03/2024 18:14:48 [facility] Heart Rate 94 bpm 09/03/2024 18:14:48 [facility] Mean NIBP 68 mm[Hg] 09/03/2024 18:14:48 [facility] SBP NIBP 113 mm[Hg] 09/03/2024 17:41:21 [facility] DBP NIBP 66 mm[Hg] 09/03/2024 17:41:21 [facility] Mean NIBP 82 mm[Hg] 09/03/2024 17:41:21 [facility] Heart Rate 86 bpm 09/03/2024 17:41:21 [facility] SpO2 98 % 09/03/2024 16:26:17 [facility] Respiratory Rate 16 breaths/min 09/03/2024 16:26:17 [facility] Weight (kg) 74.5 kg 09/03/2024 16:26:17 [facility] Temperature (Celsius) 36.2 Cheri 09/03/2024 16:26:00 [facility] Height (cm) 182.8 cm 09/03/2024 16:10:00 [facility] Mean NIBP 97 mm[Hg] 08/23/2024 14:00:00 [facility] SBP NIBP 133 mm[Hg] 08/23/2024 14:00:00 [facility] DBP NIBP 79 mm[Hg] 08/23/2024 14:00:00 [facility] Heart Rate 80 bpm 08/23/2024 14:00:00 [facility] Temperature (Celsius) 36.6 Cheri 08/23/2024 14:00:00 [facility] SpO2 99 % 08/23/2024 14:00:00 [facility] Respiratory Rate 16 breaths/min 08/23/2024 14:00:00 [facility] Respiratory Rate 16 breaths/min 08/23/2024 10:23:08 [facility] SBP NIBP 116 mm[Hg] 08/23/2024 10:23:08 [facility] DBP NIBP 55 mm[Hg] 08/23/2024 10:23:08 [facility] Mean NIBP 75 mm[Hg] 08/23/2024 10:23:08 [facility] Heart Rate 74 bpm 08/23/2024 10:23:08 [facility] Temperature (Celsius) 36.7 Cheri 08/23/2024 10:23:08 [facility] SpO2 98 % 08/23/2024 10:23:08 [facility] SBP NIBP 105 mm[Hg] 08/23/2024 05:00:00 [facility] DBP NIBP 59 mm[Hg] 08/23/2024 05:00:00 [facility] SpO2 96 % 08/23/2024 05:00:00 [facility] Temperature (Celsius) 36.5 Cheri 08/23/2024 05:00:00 [facility] Respiratory Rate 14 breaths/min 08/23/2024 05:00:00 [facility] Heart Rate 68 bpm 08/23/2024 05:00:00 [facility] SBP NIBP 108 mm[Hg] 08/23/2024 03:08:17 [facility] DBP NIBP 58 mm[Hg] 08/23/2024 03:08:17 [facility] Mean NIBP 75 mm[Hg] 08/23/2024 03:08:17 [facility] SpO2 98 % 08/23/2024 03:08:17 [facility] Heart Rate 75 bpm 08/23/2024 03:08:17 [facility] Temperature (Celsius) 36.7 Cheri 08/23/2024 03:08:17 [facility] Respiratory Rate 16 breaths/min 08/23/2024 03:08:17 [facility] Mean NIBP 99 mm[Hg] 08/22/2024 18:05:15 [facility] BMI 22.4 kg/m2 08/19/2024 18:03:00 [facility] Height (cm) 182.8 cm 08/19/2024 18:03:00 [facility] Weight (kg) 74.7 kg 08/19/2024 18:03:00 [facility] BSA Negin 1.96 08/19/2024 18:03:00 [facility] 74.7 kg 08/19/2024 18:00:00 [facility] SBP NIBP 110 mm[Hg] 07/26/2024 19:23:58 [facility] DBP NIBP 69 mm[Hg] 07/26/2024 19:23:58 [facility] Mean NIBP 82 mm[Hg] 07/26/2024 19:23:58 [facility] Heart Rate 93 bpm 07/26/2024 19:23:58 [facility] SBP NIBP 102 mm[Hg] 07/26/2024 18:03:37 [facility] DBP NIBP 64 mm[Hg] 07/26/2024 18:03:37 [facility] Mean NIBP 77 mm[Hg] 07/26/2024 18:03:37 [facility] Heart Rate 77 bpm 07/26/2024 18:03:37 [facility] Temperature (Celsius) 36.8 Cheri 07/26/2024 18:03:37 [facility] SBP NIBP 119 mm[Hg] 07/26/2024 17:28:31 [facility] DBP NIBP 78 mm[Hg] 07/26/2024 17:28:31 [facility] Mean NIBP 92 mm[Hg] 07/26/2024 17:28:31 [facility] Heart Rate 89 bpm 07/26/2024 17:28:31 [facility] Temperature (Celsius) 36.7 Chrei 07/26/2024 17:28:31 [facility] SBP NIBP 106 mm[Hg] 07/26/2024 16:52:21 [facility] DBP NIBP 67 mm[Hg] 07/26/2024 16:52:21 [facility] Mean NIBP 80 mm[Hg] 07/26/2024 16:52:21 [facility] Heart Rate 108 bpm 07/26/2024 16:52:21 [facility] SpO2 99 % 07/26/2024 16:52:21 [facility] Temperature (Celsius) 36.7 Cheri 07/26/2024 16:52:21 [facility] SpO2 99 % 07/24/2024 19:31:46 [facility] Temperature (Celsius) 36.8 Cheri 07/24/2024 19:31:46 [facility] Respiratory Rate 18 breaths/min 07/24/2024 19:31:46 [facility] SBP NIBP 100 mm[Hg] 07/24/2024 19:31:46 [facility] DBP NIBP 55 mm[Hg] 07/24/2024 19:31:46 [facility] Heart Rate 78 bpm 07/24/2024 19:31:46 [facility] Mean NIBP 70 mm[Hg] 07/24/2024 19:31:46 [facility] Respiratory Rate 18 breaths/min 07/24/2024 15:58:42 [facility] SBP NIBP 108 mm[Hg] 07/24/2024 15:58:42 [facility] DBP NIBP 67 mm[Hg] 07/24/2024 15:58:42 [facility] Temperature (Celsius) 36.7 Cheri 07/24/2024 15:58:42 [facility] Mean NIBP 80 mm[Hg] 07/24/2024 15:58:42 [facility] SpO2 98 % 07/24/2024 15:58:42 [facility] Heart Rate 79 bpm 07/24/2024 15:58:42 [facility] Heart Rate 82 bpm 07/24/2024 08:46:36 [facility] Mean NIBP 77 mm[Hg] 07/24/2024 08:46:36 [facility] Temperature (Celsius) 36.6 Cheri 07/24/2024 08:46:36 [facility] SpO2 98 % 07/24/2024 08:46:36 [facility] SBP NIBP 103 mm[Hg] 07/24/2024 08:46:36 [facility] DBP NIBP 64 mm[Hg] 07/24/2024 08:46:36 [facility] Respiratory Rate 16 breaths/min 07/24/2024 08:00:00 [facility] Temperature (Celsius) 36.1 Cheri 07/24/2024 06:07:10 [facility] SpO2 98 % 07/24/2024 06:07:10 [facility] Heart Rate 92 bpm 07/24/2024 06:07:10 [facility] Mean NIBP 83 mm[Hg] 07/24/2024 06:07:10 [facility] SBP NIBP 110 mm[Hg] 07/24/2024 06:07:10 [facility] DBP NIBP 69 mm[Hg] 07/24/2024 06:07:10 [facility] Respiratory Rate 16 breaths/min 07/24/2024 06:00:00 [facility] Unable to Obtain V/S Other: sleeping 07/22/2024 18:00:00 [facility] BSA Negin 1.93 07/19/2024 18:15:00 [facility] Height (cm) 182.8 cm 07/19/2024 18:15:00 [facility] BMI 21.6 kg/m2 07/19/2024 18:15:00 [facility] Weight (kg) 72.1 kg 07/19/2024 18:15:00 [facility] SBP NIBP 111 mm[Hg] 07/08/2024 13:01:24 [facility] DBP NIBP 75 mm[Hg] 07/08/2024 13:01:24 [facility] Mean NIBP 87 mm[Hg] 07/08/2024 13:01:24 [facility] 93 bpm 07/08/2024 13:01:24 [facility] SpO2 98 % 07/08/2024 13:01:24 [facility] Temperature (Celsius) 37.1 Cheri 07/08/2024 13:01:24 [facility] Respiratory Rate 16 breaths/min 07/08/2024 13:01:24 [facility] SBP NIBP 128 mm[Hg] 07/01/2024 21:39:13 [facility] DBP NIBP 76 mm[Hg] 07/01/2024 21:39:13 [facility] Mean NIBP 93 mm[Hg] 07/01/2024 21:39:13 [facility] Heart Rate 70 bpm 07/01/2024 21:39:13 [facility] SpO2 99 % 07/01/2024 21:39:13 [facility] Temperature (Celsius) 37 Cheri 07/01/2024 21:39:13 [facility] Respiratory Rate 16 breaths/min 07/01/2024 21:39:13 [facility] Heart Rate 97 bpm 07/01/2024 18:00:00 [facility] SBP NIBP 132 mm[Hg] 07/01/2024 18:00:00 [facility] DBP NIBP 92 mm[Hg] 07/01/2024 18:00:00 [facility] Mean NIBP 105 mm[Hg] 07/01/2024 18:00:00 [facility] SpO2 99 % 07/01/2024 18:00:00 [facility] SBP NIBP 123 mm[Hg] 07/01/2024 13:59:37 [facility] DBP NIBP 76 mm[Hg] 07/01/2024 13:59:37 [facility] Mean NIBP 92 mm[Hg] 07/01/2024 13:59:37 [facility] Heart Rate 76 bpm 07/01/2024 13:59:37 [facility] SpO2 99 % 07/01/2024 13:59:37 [facility] Temperature (Celsius) 37.3 Cheri 07/01/2024 13:00:00 [facility] Temperature (Celsius) 36.6 Cheri 07/01/2024 09:00:00 [facility] Heart Rate 70 bpm 07/01/2024 09:00:00 [facility] Respiratory Rate 14 07/01/2024 09:00:00 [facility] SBP NIBP 132 mm[Hg] 07/01/2024 09:00:00 [facility] DBP NIBP 70 mm[Hg] 07/01/2024 09:00:00 [facility] SpO2 98 % 07/01/2024 09:00:00 [facility] Dosing Weight (kg) 74.5 kg 07/01/2024 09:00:00 [facility] Height (cm) 182.8 cm 07/01/2024 09:00:00 [facility] Weight (kg) 74.2 kg 07/01/2024 09:00:00 [facility] BMI 22.2 kg/m2 07/01/2024 09:00:00 [facility] Temperature (Celsius) 36.6 Cheri 07/01/2024 05:00:00 [facility] Respiratory Rate 14 07/01/2024 05:00:00 [facility] Mean NIBP 94 mm[Hg] 07/01/2024 01:03:36 [facility] Respiratory Rate 14 breaths/min 07/01/2024 01:03:36 [facility] Dosing Weight (kg) 74.5 kg 06/30/2024 09:00:00 [facility] Height (cm) 182.8 cm 06/30/2024 09:00:00 [facility] Weight (kg) 74.1 kg 06/30/2024 09:00:00 [facility] BMI 22.2 kg/m2 06/30/2024 09:00:00 [facility] Dosing Weight (kg) 74.5 kg 06/29/2024 09:00:00 [facility] Height (cm) 182.8 cm 06/29/2024 09:00:00 [facility] Weight (kg) 74.3 kg 06/29/2024 09:00:00 [facility] BMI 22.2 kg/m2 06/29/2024 09:00:00 [facility] Weight (kg) 74.5 kg 06/28/2024 09:00:00 [facility] Dosing Weight (kg) 74.5 kg 06/28/2024 09:00:00 [facility] Height (cm) 182.8 cm 06/28/2024 09:00:00 [facility] BMI 22.3 kg/m2 06/28/2024 09:00:00 [facility] SBP NIBP 128 mm[Hg] 06/04/2024 13:44:23 [facility] DBP NIBP 71 mm[Hg] 06/04/2024 13:44:23 [facility] Mean NIBP 90 mm[Hg] 06/04/2024 13:44:23 [facility] Heart Rate 113 bpm 06/04/2024 13:44:23 [facility] SpO2 99 % 06/04/2024 13:44:23 [facility] Respiratory Rate 16 breaths/min 06/04/2024 13:44:23 [facility] Temperature (Celsius) 36.7 Cheri 06/04/2024 09:00:00 [facility] Heart Rate 99 bpm 06/04/2024 09:00:00 [facility] Respiratory Rate 14 breaths/min 06/04/2024 09:00:00 [facility] SBP NIBP 125 mm[Hg] 06/04/2024 09:00:00 [facility] DBP NIBP 71 mm[Hg] 06/04/2024 09:00:00 [facility] Mean NIBP 89 mm[Hg] 06/04/2024 09:00:00 [facility] SpO2 99 % 06/04/2024 09:00:00 [facility] Temperature (Celsius) 36.6 Cheri 06/04/2024 05:00:00 [facility] Heart Rate 112 bpm 06/04/2024 05:00:00 [facility] Respiratory Rate 16 breaths/min 06/04/2024 05:00:00 [facility] SBP NIBP 134 mm[Hg] 06/04/2024 05:00:00 [facility] DBP NIBP 73 mm[Hg] 06/04/2024 05:00:00 [facility] Mean NIBP 93 mm[Hg] 06/04/2024 05:00:00 [facility] SpO2 100 % 06/04/2024 05:00:00 [facility] Temperature (Celsius) 36.7 Cheri 06/04/2024 01:00:00 [facility] Heart Rate 105 bpm 06/04/2024 01:00:00 [facility] Respiratory Rate 16 breaths/min 06/04/2024 01:00:00 [facility] SBP NIBP 139 mm[Hg] 06/04/2024 01:00:00 [facility] DBP NIBP 79 mm[Hg] 06/04/2024 01:00:00 [facility] Mean NIBP 99 mm[Hg] 06/04/2024 01:00:00 [facility] SpO2 100 % 06/04/2024 01:00:00 [facility] Height (cm) 182.8 cm 06/04/2024 01:00:00 [facility] Temperature (Celsius) 36.4 Cheri 06/03/2024 21:46:17 [facility] Height (cm) 182.8 cm 06/03/2024 13:00:00 [facility] Height (cm) 182.8 cm 06/03/2024 01:00:00 [facility] Height (cm) 182.8 cm 05/29/2024 01:00:00 [facility] Weight (kg) 71.5 kg 05/27/2024 19:00:00 [facility] Dosing Weight (kg) 67.5 kg 05/24/2024 13:00:00 [facility] Dosing Weight (kg) 67.5 kg 05/24/2024 01:00:00 [facility] Weight (kg) 67.5 kg 05/23/2024 19:57:00 [facility] BMI 20.2 kg/m2 05/23/2024 19:57:00 [facility] Weight (kg) 71.3 kg 05/23/2024 13:44:00 [facility] Height (cm) 196 cm 05/22/2024 17:56:00 [facility] Weight (kg) 66 kg 05/22/2024 17:56:00 [facility] BMI 17.2 kg/m2 05/22/2024 17:56:00 [facility] BSA Negin 1.96 05/22/2024 17:56:00 [facility] Heart Rate 114 bpm 05/22/2024 17:56:00 [facility] SBP NIBP 112 mm[Hg] 05/22/2024 17:56:00 [facility] DBP NIBP 75 mm[Hg] 05/22/2024 17:56:00 [facility] Respiratory Rate 18 breaths/min 05/22/2024 17:56:00 [facility] SpO2 99 % 05/22/2024 17:56:00 [facility] SBP NIBP 113 mm[Hg] 05/13/2024 19:48:33 [facility] DBP NIBP 62 mm[Hg] 05/13/2024 19:48:33 [facility] Mean NIBP 79 mm[Hg] 05/13/2024 19:48:33 [facility] Heart Rate 98 bpm 05/13/2024 19:48:33 [facility] SpO2 99 % 05/13/2024 19:48:33 [facility] SBP NIBP 113 mm[Hg] 05/13/2024 18:29:20 [facility] DBP NIBP 66 mm[Hg] 05/13/2024 18:29:20 [facility] Mean NIBP 82 mm[Hg] 05/13/2024 18:29:20 [facility] Heart Rate 100 bpm 05/13/2024 18:29:20 [facility] SpO2 98 % 05/13/2024 18:29:20 [facility] Heart Rate 100 bpm 05/13/2024 17:57:54 [facility] SpO2 99 % 05/13/2024 17:57:54 [facility] SBP NIBP 124 mm[Hg] 05/13/2024 17:57:51 [facility] DBP NIBP 71 mm[Hg] 05/13/2024 17:57:51 [facility] Mean NIBP 89 mm[Hg] 05/13/2024 17:57:51 [facility] Temperature (Celsius) 36.8 Cheri 05/13/2024 14:40:00 [facility] Respiratory Rate 16 breaths/min 05/13/2024 14:40:00 [facility] Weight (kg) 66 kg 05/13/2024 14:40:00 [facility] Height (cm) 196 cm 05/13/2024 14:40:00 [facility] BSA Negin 1.96 05/13/2024 14:40:00 [facility] SBP NIBP 138 mm[Hg] 05/06/2024 20:44:15 [facility] DBP NIBP 80 mm[Hg] 05/06/2024 20:44:15 [facility] Mean NIBP 99 mm[Hg] 05/06/2024 20:44:15 [facility] Heart Rate 71 bpm 05/06/2024 20:44:15 [facility] SpO2 99 % 05/06/2024 20:44:15 [facility] Temperature (Celsius) 36.8 Cheri 05/06/2024 20:44:15 [facility] Respiratory Rate 17 breaths/min 05/06/2024 20:44:15 [facility] SBP NIBP 139 mm[Hg] 05/06/2024 20:04:29 [facility] DBP NIBP 87 mm[Hg] 05/06/2024 20:04:29 [facility] SpO2 99 % 05/06/2024 20:04:07 [facility] Heart Rate 87 bpm 05/06/2024 20:04:05 [facility] Respiratory Rate 8 breaths/min 05/06/2024 20:04:00 [facility] SBP NIBP 137 mm[Hg] 05/06/2024 20:00:00 [facility] DBP NIBP 91 mm[Hg] 05/06/2024 20:00:00 [facility] Heart Rate 84 bpm 05/06/2024 20:00:00 [facility] Respiratory Rate 11 breaths/min 05/06/2024 20:00:00 [facility] SpO2 98 % 05/06/2024 20:00:00 [facility] SBP NIBP 131 mm[Hg] 05/06/2024 19:55:00 [facility] DBP NIBP 88 mm[Hg] 05/06/2024 19:55:00 [facility] Heart Rate 80 bpm 05/06/2024 19:55:00 [facility] Respiratory Rate 7 breaths/min 05/06/2024 19:55:00 [facility] SpO2 97 % 05/06/2024 19:55:00 [facility] Mean NIBP 105 mm[Hg] 05/06/2024 16:58:04 [facility] Temperature (Celsius) 36.8 Cheri 05/06/2024 16:58:04 [facility] Unable to Obtain V/S Other: sleeping 05/06/2024 13:00:00 [facility] Mean NIBP 91 mm[Hg] 05/06/2024 10:08:37 [facility] Mean NIBP 91 mm[Hg] 05/06/2024 05:30:13 [facility] Temperature (Celsius) 36.8 Cheri 05/06/2024 05:30:13 [facility] Temperature (Celsius) 36.8 Cheri 05/06/2024 02:27:01 [facility] Unable to Obtain V/S Other: sleeping 05/03/2024 13:00:00 [facility] Height (cm) 196 cm 05/03/2024 01:00:00 [facility] Weight (kg) 70.0 kg 04/28/2024 02:00:00 [facility] [place] Body Weight 94.5 kg 04/26/2024 18:32:00 [facility] Weight (kg) 68.5 kg 04/26/2024 03:12:00 [facility] Height (cm) 196 cm 04/26/2024 03:12:00 [facility] BMI 17.8 kg/m2 04/26/2024 03:12:00 [facility] SBP NIBP 118 mm[Hg] 04/18/2024 19:06:54 [facility] DBP NIBP 64 mm[Hg] 04/18/2024 19:06:54 [facility] Mean NIBP 82 mm[Hg] 04/18/2024 19:06:54 [facility] Heart Rate 97 bpm 04/18/2024 19:06:54 [facility] SpO2 98 % 04/18/2024 19:06:54 [facility] Temperature (Celsius) 36.8 Cheri 04/18/2024 19:06:54 [facility] Respiratory Rate 20 breaths/min 04/18/2024 19:06:54 [facility] Temperature (Celsius) 37.2 Cheri 04/18/2024 16:00:00 [facility] Heart Rate 92 bpm 04/18/2024 16:00:00 [facility] Respiratory Rate 14 breaths/min 04/18/2024 16:00:00 [facility] SBP NIBP 120 mm[Hg] 04/18/2024 16:00:00 [facility] DBP NIBP 69 mm[Hg] 04/18/2024 16:00:00 [facility] Mean NIBP 86 mm[Hg] 04/18/2024 16:00:00 [facility] SpO2 99 % 04/18/2024 16:00:00 [facility] Height (cm) 196 cm 04/18/2024 09:00:00 [facility] Weight (kg) 68.5 kg 04/18/2024 09:00:00 [facility] BMI 17.8 kg/m2 04/18/2024 09:00:00 [facility] SBP NIBP 122 mm[Hg] 04/18/2024 07:43:50 [facility] DBP NIBP 68 mm[Hg] 04/18/2024 07:43:50 [facility] Mean NIBP 86 mm[Hg] 04/18/2024 07:43:50 [facility] Heart Rate 96 bpm 04/18/2024 07:43:50 [facility] SpO2 99 % 04/18/2024 07:43:50 [facility] Temperature (Celsius) 36.3 Cheri 04/18/2024 07:43:50 [facility] Respiratory Rate 15 breaths/min 04/18/2024 07:00:00 [facility] SBP NIBP 124 mm[Hg] 04/18/2024 04:46:20 [facility] DBP NIBP 79 mm[Hg] 04/18/2024 04:46:20 [facility] Mean NIBP 94 mm[Hg] 04/18/2024 04:46:20 [facility] Heart Rate 97 bpm 04/18/2024 04:46:20 [facility] SpO2 98 % 04/18/2024 04:46:20 [facility] Respiratory Rate 12 breaths/min 04/18/2024 04:46:20 [facility] Temperature (Celsius) 36.9 Cheri 04/17/2024 21:28:17 [facility] Temperature Source Oral 04/16/2024 21:59:00 [facility] Temperature Source Oral 04/16/2024 20:23:00 [facility] Height (cm) 196 cm 04/16/2024 09:00:00 [facility] Weight (kg) 68.6 kg 04/16/2024 09:00:00 [facility] BMI 17.9 kg/m2 04/16/2024 09:00:00 [facility] Height (cm) 196 cm 04/15/2024 09:00:00 [facility] Weight (kg) 68.6 kg 04/15/2024 09:00:00 [facility] BMI 17.9 kg/m2 04/15/2024 09:00:00 [facility] Height (cm) 196 cm 04/14/2024 09:00:00 [facility] Weight (kg) 71.6 kg 04/14/2024 09:00:00 [facility] BMI 18.6 kg/m2 04/14/2024 09:00:00 [facility] Encounters Location Location Details Encounter Type Encounter Number Reason For Visit Attending Provider ADM Date DC Date Status Source [facility] Between Visit [id number] 04/19 17:40 :22 04/20 04:59 :59 Estevan Schrader [facility] Inpatient [id number] Dario Madsen 04/26 03:12 :18 05/06 23:50 [facility] [id number] Dario Madsen 04/29 13:49 :15 04/30 04:59 :59 [facility] Outpatient [id number] Heike Barrientos 05/13 12:51 :08 05/14 04:59 :59 [facility] Outpatient [id number] Marcio Mansfield 05/22 16:08 :37 05/23 04:59 :59 [facility] PCT [facility] [id number] Filippo Eubanks 05/22 17:36 :24 05/23 04:59 :59 [facility] Inpatient [id number] B CELL ALL Dario Madsen 05/23 08:25 :47 06/04 15:09 :00 Active [facility] Care Estevan Krishna 1st Floor Between Visit [id number] 06/20 17:36 :39 06/21 04:59 :59 [facility] Inpatient [id number] Dario Madsen 06/27 18:28 :39 07/01 22:55 :00 [facility] Outpatient [id number] Heike Barrientos 07/08 12:14 :16 07/09 04:59 :59 [facility] Inpatient [id number] Dario Madsen 07/19 18:15 :17 07/24 21:08 :00 [facility] EF-BLOOD DRAW Outpatient [id number] Heike Barrientos 07/26 14:38 :27 07/27 05:59 :59 [facility] Outpatient [id number] Heikeoswaldo Barrientos 07/26 14:39 :04 07/27 05:59 :59 [facility] Non-Admit [id number] [place] 08/09 15:47 :09 08/10 05:59 :59 [facility] Inpatient [id number] B CELL ALL Dario Cale 08/19 12:02 :42 08/23 16:45 :00 Active [facility]U Outpatient [id number] Heikeoswaldo Barrientos 09/03 15:38 :16 09/04 05:59 :59 [facility] EF-BLOOD DRAW Outpatient [id number] Heikeoswaldo Barrientos 09/12 14:59 :19 09/13 05:59 :59 [facility] Oncology Clinic [id number] Heikeoswaldo Barrientos 09/12 14:59 :54 09/13 05:59 :59 [facility] Inpatient [id number] Kyaw Isael 09/12 18:01 :07 09/18 19:05 :00 [facility] EF-BLOOD DRAW Outpatient [id number] Heikeoswaldo Barrientos 10/25 13:35 :55 10/26 05:59 :59 [facility] Oncology Clinic [id number] Heikeoswaldo Barrientos 10/25 13:36 :38 10/26 05:59 :59 [facility] Oncology Pharmacy Education [facility] Care [id number] Heikeoswaldo Barrientos 11/06 21:25 :03 11/07 05:59 :59 [facility] AIU Outpatient [id number] Heikeoswaldo Barrientos 11/12 16:10 :56 11/13 05:59 :59 [facility] EF-BLOOD [facility]RAW Outpatient [id number] Heikeoswaldo Barrientos 02/28 15:17 :28 03/01 04:59 :59 [facility] Medical Oncology [facility] [id number] Heikeoswaldo Barrientos 02/28 15:18 :04 03/01 04:59 :59 [facility] Procedures Procedure Code Date Perfomer Comments Source ear tubes [facility] tonsillectomy [facility] Social History Social History Date Source No data available for this section 03/01/2025 [facility] No data available for this section 11/13/2024 [facility] No data available for this section 11/07/2024 [facility] No data available for this section 10/26/2024 [facility] No data available for this section 09/18/2024 [facility] No data available for this section 09/13/2024 [facility] No data available for this section 09/04/2024 [facility] No data available for this section 08/23/2024 [facility] No data available for this section 08/10/2024 [facility] No data available for this section 07/27/2024 [facility] No data available for this section 07/24/2024 [facility] No data available for this section 07/09/2024 [facility] No data available for this section 07/01/2024 [facility] No data available for this section 06/21/2024 [facility] No data available for this section 06/04/2024 [facility] No data available for this section 05/23/2024 [facility] No data available for this section 05/14/2024 [facility] No data available for this section 05/06/2024 [facility] No data available for this section 04/30/2024 [facility] No data available for this section 04/20/2024 [facility] No data available for this section 04/18/2024 [facility]
[2025-04-08 15:49] VITALS: BP 133/68; PULSE 94; RESP 16; TEMP 36.7; O2SAT 95
--- NOTE | 2025-04-08 16:06 | W.ED.BACK ---
Documented by User: Frederic Lyn DO 04/09/25 06:01 HPI - Back Pain/Injury General: Chief Complaint: Back Pain/Injury Stated Complaint: Back pain Time Seen by Provider: 04/08/25 15:53 History of Present Illness: 25-year-old male presents emergency room complaining of low back pain for last 3 days. 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 No fever sweats chills no dysuria urgency or frequency. No recent trauma. No vomiting no diarrhea. Associated symptoms: Deny abdominal pain, chills, dysuria, fever(s) or urinary urgency Related Data Home Medications ?Medication ?Instructions ?Recorded ?Confirmed polyethylene glycol 3350 17 4 g PO DAILY PRN Constipation 04/25/24 04/01/25 gram/dose oral powder sennosides 8.6 mg tablet 8.6 mg PO BID PRN Constipation 04/25/24 04/01/25 hydrocodone 5 mg-acetaminophen 325 5 - 325 tab PO PRN PRN Pain, 11/04/24 04/01/25 mg tablet Moderate sertraline 50 mg tablet 50 mg PO DAILY 11/04/24 04/01/25 hydroxyzine HCl 25 mg tablet 25 mg PO DAILY 11/15/24 04/01/25 morphine 15 mg tablet,extended 15 mg PO DAILY 11/15/24 04/01/25 release prednisone 50 mg tablet 50 mg PO DAILY 11/15/24 04/01/25 Previous Rx's ?Medication ?Instructions ?Recorded fluconazole 100 mg tablet 100 mg PO DAILY fungal infection 11/25/24 prevention #90 tabs methotrexate sodium 5 mg tablet 40 mg (8 x 5 mg) PO Q7D #28 tabs 11/25/24 sulfamethoxazole 800 1 tab PO MOWEFR #24 tabs 11/25/24 mg-trimethoprim 160 mg tablet (Bactrim DS) valacyclovir 500 mg tablet 500 mg PO BID #60 tabs 11/25/24 mercaptopurine 50 mg tablet 50 mg PO TID 84 days #84 tabs 12/10/24 methotrexate sodium 2.5 mg tablet 2.5 mg PO Q7D #64 tabs 01/01/25 lidocaine-prilocaine 2.5 %-2.5 % 1 applic topical .COMPLEX #30 grams 01/28/25 topical cream mercaptopurine 50 mg tablet 50 mg PO TID #90 tabs 02/26/25 prednisone 50 mg tablet 100 mg (2 x 50 mg) PO DAILY 5 days 03/04/25 #10 tabs amoxicillin 875 mg-potassium 1 tab PO BID 10 days #20 tabs 03/13/25 clavulanate 125 mg tablet prednisone 50 mg tablet 200 mg (4 x 50 mg) PO DAILY 5 days 04/01/25 #5 tabs Allergies Allergy/AdvReac Type Severity Reaction Status Date / Time No Known Allergies Allergy Verified 04/01/25 13:43 Review of Systems Const: Denies: fever(s) or chills Card: Denies: chest pain Resp: Denies: dyspnea GI: Denies: abdominal pain : Denies: dysuria, urinary frequency or urinary urgency Musc: Denies: neck pain or back pain Skin/Breast: Denies: rash PFSH ED PFSH: Medical History Pancytopenia Acute leukemia Poor dentition Social History Smoking and tobacco/nicotine status: never used tobacco/nicotine Physical Exam Const: GENERAL APPEARANCE: cooperative ORIENTATION/CONSCIOUSNESS: Yes awake, Yes oriented to person, Yes oriented to place and Yes oriented to time HENMT: COMMON NORMALS: normocephalic, atraumatic and hearing grossly normal bilaterally HEAD & SCALP: normocephalic and atraumatic Resp: COMMON NORMALS: normal respiratory effort, No retractions, No use of accessory muscles and clear to auscultation bilaterally AUSCULTATION: clear to auscultation bilaterally Cardio: COMMON NORMALS: regular rate, regular rhythm and No murmurs present (Cardio) RATE: regular rate RHYTHM: regular rhythm GI: COMMON NORMALS: Soft to palpation and No hepatosplenomegaly present AUSCULTATION: Yes normoactive bowel sounds PALPATION: Yes Soft to palpation, No Tenderness to palpation present (GI), No Guarding due to palpation present (GI) and Yes No hepatosplenomegaly present Extremity: COMMON NORMALS: normal to inspection, capillary refill normal, no clubbing, cyanosis or edema, no calf tenderness and no pedal edema Neuro: SENSORIUM/ORIENTATION: Yes oriented to person, Yes oriented to place and Yes oriented to time Skin: COMMON NORMALS: no rashes or lesions noted GENERAL SKIN EXAM: no rashes or lesions noted Course Vital Signs: Vital signs: Vital Signs Temperature 98.0 F 04/08/25 15:49 Pulse Rate 83 04/08/25 19:38 Respiratory Rate 17 04/08/25 19:38 Blood Pressure 135/90 04/08/25 19:38 Pulse Oximetry 97 04/08/25 19:38 Oxygen Delivery Me thod Room Air 04/08/25 18:30 MDM - Back Pain/Injury Medical Decision Making Care signed out to Dr. Reyes at change of shift. See final notes for diagnosis and disposition. Signout from Dr. Lyn at 6 PM. Patient here with back pain. Patient has a history of ALL. Awaiting CT results. He does have abnormal blood work which his oncologist states is not abnormal for him. His CT was read with mild fat stranding adjacent to the cecum with no definitive evidence of acute appendicitis. The patient does not have any specific right lower quadrant tenderness to palpation. They also notice patchy sclerosis within the T12 vertebral body and bilateral pelvic bones. This is where the patient is having his pain. We discussed following up with his doctor for an outpatient MRI as recommended by radiology. Will discharge at this time with precautions to return for worsening or changing symptoms. We also talked about specific symptoms of appendicitis that should prompt immediate return to the emergency department. Labs 04/08/25 16:33 04/08/25 16:33 Radiology Impressions Abdomen/Pelvis CT 04/08/25 17:54 IMPRESSION: 1. Mild fat stranding adjacent to the cecum extending towards the right inguinal canal could represent mild inflammation. No definite evidence to suggest acute appendicitis. 2. Patchy sclerosis within the T12 vertebral body and bilateral pelvic bones, possibly representing musculoskeletal involvement of leukemia. Nonemergent MRI could be considered for further assessment. Laboratory Results WBC 1.94 10^3/uL (3.29-11.43) L 04/08/25 16:33 RBC 2.77 10^6/uL (3.85-5.65) L 04/08/25 16:33 Hgb 9.70 g/dL (11.27-16.99) L 04/08/25 16:33 Hct 29.8 % (37-53) L 04/08/25 16:33 MCV 107.6 fl (82-101) H 04/08/25 16:33 MCH 35.0 pg (27-33) H 04/08/25 16: MCHC 32.6 g/dL (30-55) 04/08/25 16:33 RDW 16.5 % (12.1-15.1) H 04/08/25 16:33 Plt Count 161 10^3/cmm (157-399) 04/08/25 16:33 MPV 11.1 fL (7.4-10.4) H 04/08/25 16:33 Neut % (Auto) 49.0 % 04/08/25 16:33 Lymph % (Auto) 32.5 % 04/08/25 16:33 [place] % (Auto) 9.8 % 04/08/25 16:33 Eos % (Auto) 7.2 % 04/08/25 16:33 Baso % (Auto) 0.5 % 04/08/25 16: Neut # (Auto) 0.95 10^3/uL (1.8-7.7) L* 04/08/25 16:33 Lymph # (Auto) 0.6 10^3/uL (0.8-4.8) L 04/08/25 16:33 [place] # (Auto) 0.2 10^3/uL (0.2-0.9) 04/08/25 16:33 Eos # (Auto) 0.1 10^3/uL (0.0-0.8) 04/08/25 16: Baso # (Auto) 0.0 10^3/uL (0.0-0.1) 04/08/25 16: Nucleated RBC % (auto) 0 % 04/08/25 16: Nucleated RBCs # 0.0 /100WBC 04/08/25 16:33 Sodium 143 mmol/L (136-145) 04/08/25 16:33 Potassium 2.7 mmol/L (3.5-5.1) L* 04/08/25 16:33 Chloride 98 mmol/L (98-107) 04/08/25 16:33 Carbon Dioxide 31 mmol/L (22-29) H 04/08/25 16:33 Anion Gap 16.7 (5-19) 04/08/25 16:33 BUN 9 mg/dL (6-20) 04/08/25 16:33 Creatinine 0.4 mg/dL (0.7-1.2) L 04/08/25 16:33 GFR Calculation 260.0 mL/min (90-130) H 04/08/25 16:33 Glucose 93 mg/dL (65-115) 04/08/25 16:33 Calculated Osmolality 294 mOsm/kg (285-295) 04/08/25 16:33 Calcium 8.2 mg/dL (8.5-10.5) L 04/08/25 16:33 Magnesium 1.6 mg/dL (1.7-2.3) L 04/08/25 16:23 Total Bilirubin 1.3 mg/dL (0.15-1.2) H 04/08/25 16:33 AST 70 U/L (0-40) H 04/08/25 16:33 ALT 207 U/L (0-41) H 04/08/25 16:33 Alkaline Phosphatase 70 U/L (40-130) 04/08/25 16:33 Total Protein 5.2 g/dL (6.6-8.7) L 04/08/25 16:33 Albumin 3.7 g/dL (3.5-5.2) 04/08/25 16:33 Globulin 1.5 g/dL (1.3-4.6) 04/08/25 16:33 Urine Color Yellow (Yellow) 04/08/25 17:42 Urine Appearance Clear (CLEAR) 04/08/25 17:42 Urine pH 8.5 (5-7) A 04/08/25 17:42 Ur Specific [place] 1.009 (1.005-1.030) 04/08/25 17:42 Urine Protein Negative (Negative) 04/08/25 17:42 Urine Glucose (UA) Negative (Normal) 04/08/25 17:42 Urine Ketones Negative (Negative) 04/08/25 17:42 Urine Blood Negative (Negative) 04/08/25 17:42 Urine Nitrate Negative (Negative) 04/08/25 17:42 Urine Bilirubin Negative (Negative) 04/08/25 17:42 Urine Urobilinogen 1.0 mg/dL (Negative) 04/08/25 17:42 Ur Leukocyte Esterase Negative (Negative) 04/08/25 17:42 Urine RBC 0-2 /hpf (0-2) 04/08/25 17:42 Urine WBC 0-5 /hpf (0-5) 04/08/25 17:42 Ur Squamous Epith Cells 0-5 /hpf (0-5) 04/08/25 17:42 Amorphous Sediment Not Reportable 04/08/25 17:42 Urine Bacteria None seen /hpf (NONE) 04/08/25 17:42 Hyaline Casts 0-4 /lpf H 04/08/25 17:42 Discharge Plan Discharge Patient Disposition: Home Clinical Impression: Back pain, Acute lymphoblastic leukemia (ALL) Condition: Stable Prescriptions: No Action polyethylene glycol 3350 17 gram/dose powder 4 g PO DAILY PRN (Reason: Constipation) sennosides 8.6 mg tablet 8.6 mg PO BID PRN (Reason: Constipation) sertraline 50 mg tablet 50 mg PO DAILY hydrocodone-acetaminophen 5-325 mg tablet 5 - 325 tab PO PRN PRN (Reason: Pain, Moderate) prednisone 50 mg tablet 50 mg PO DAILY hydroxyzine HCl 25 mg tablet 25 mg PO DAILY morphine 15 mg tablet extended release 15 mg PO DAILY prednisone 50 mg tablet 100 mg PO DAILY 5 Days Qty: 10 0RF Rx Instructions: take on days 1-5 of a 28 day cycle amoxicillin-pot clavulanate 875-125 mg tablet 1 tab PO BID 10 Days Qty: 20 0RF lidocaine-prilocaine 2.5-2.5 % cream 1 applic topical .COMPLEX Qty: 30 2RF Rx Instructions: Apply quarter-size amount to port site 30 minutes prior to access; cover with cling wrap fluconazole 100 mg tablet 100 mg PO DAILY Qty: 90 2RF valacyclovir 500 mg tablet 500 mg PO BID Qty: 60 5RF sulfamethoxazole-trimethoprim [Bactrim DS] 800-160 mg tablet 1 tab PO MOWEFR Qty: 24 5RF methotrexate sodium 5 mg tablet 40 mg PO Q7D Qty: 28 5RF Rx Instructions: Take on the same day of the week every week. Do not alternate days. methotrexate sodium 2.5 mg tablet 2.5 mg PO Q7D Qty: 64 0RF Rx Instructions: 16 tablets by mouth every 7 days mercaptopurine 50 mg tablet 50 mg PO TID Qty: 90 5RF mercaptopurine 50 mg Tablet 50 mg PO TID 84 Days Qty: 84 0RF prednisone 50 mg Tablet 200 mg PO DAILY 5 Days Qty: 5 0RF Rx Instructions: take on days 1-5 of a 28 day cycle Discharge Orders: Discharge ED (Routine); Ordered 04/08/25 Ordered By: Mo Reyes Discharge Diet: Usual diet Patient Instructions: Opioid Safety, Pain Management, Patient Portal & Jonny Instructions Print Language: Ethiopian Coding Level of Care Code ED Cork Mixer for Chg Fwd Documented by User: Mo Reyes MD 04/08/25 19:07 HPI - Back Pain/Injury General: Chief Complaint: Back Pain/Injury Stated Complaint: Back pain Time Seen by Provider: 04/08/25 15:53 Related Data Home Medications ?Medication ?Instructions ?Recorded ?Confirmed polyethylene glycol 3350 17 4 g PO DAILY PRN Constipation 04/25/24 04/01/25 gram/dose oral powder sennosides 8.6 mg tablet 8.6 mg PO BID PRN Constipation 04/25/24 04/01/25 hydrocodone 5 mg-acetaminophen 325 5 - 325 tab PO PRN PRN Pain, 11/04/24 04/01/25 mg tablet Moderate sertraline 50 mg tablet 50 mg PO DAILY 11/04/24 04/01/25 hydroxyzine HCl 25 mg tablet 25 mg PO DAILY 11/15/24 04/01/25 morphine 15 mg tablet,extended 15 mg PO DAILY 11/15/24 04/01/25 release prednisone 50 mg tablet 50 mg PO DAILY 11/15/24 04/01/25 Previous Rx's ?Medication ?Instructions ?Recorded fluconazole 100 mg tablet 100 mg PO DAILY fungal infection 11/25/24 prevention #90 tabs methotrexate sodium 5 mg tablet 40 mg (8 x 5 mg) PO Q7D #28 tabs 11/25/24 sulfamethoxazole 800 1 tab PO MOWEFR #24 tabs 11/25/24 mg-trimethoprim 160 mg tablet (Bactrim DS) valacyclovir 500 mg tablet 500 mg PO BID #60 tabs 03/10/25 mercaptopurine 50 mg tablet 50 mg PO TID 84 days #84 tabs 12/10/24 methotrexate sodium 2.5 mg tablet 2.5 mg PO Q7D #64 tabs 01/01/25 lidocaine-prilocaine 2.5 %-2.5 % 1 applic topical .COMPLEX #30 grams 01/28/25 topical cream mercaptopurine 50 mg tablet 50 mg PO TID #90 tabs 02/26/25 prednisone 50 mg tablet 100 mg (2 x 50 mg) PO DAILY 5 days 03/04/25 #10 tabs amoxicillin 875 mg-potassium 1 tab PO BID 10 days #20 tabs 03/13/25 clavulanate 125 mg tablet prednisone 50 mg tablet 200 mg (4 x 50 mg) PO DAILY 5 days 04/01/25 #5 tabs Allergies Allergy/AdvReac Type Severity Reaction Status Date / Time No Known Allergies Allergy Verified 04/01/25 13:43 [facility] ED PFSH: Medical History Pancytopenia Acute leukemia Poor dentition Social History Smoking and tobacco/nicotine status: never used tobacco/nicotine Course Vital Signs: Vital signs: Vital Signs Temperature 98.0 F 04/08/25 15:49 Pulse Rate 83 04/08/25 19:38 Respiratory Rate 17 04/08/25 19:38 Blood Pressure 135/90 04/08/25 19:38 Pulse Oximetry 97 04/08/25 19:38 Oxygen Delivery Me thod Room Air 04/08/25 18:30 MDM - Back Pain/Injury Medical Decision Making Signout from Dr. Lyn at 6 PM. Patient here with back pain. Patient has a history of ALL. Awaiting CT results. He does have abnormal blood work which his oncologist states is not abnormal for him. His CT was read with mild fat stranding adjacent to the cecum with no definitive evidence of acute appendicitis. The patient does not have any specific right lower quadrant tenderness to palpation. They also notice patchy sclerosis within the T12 vertebral body and bilateral pelvic bones. This is where the patient is having his pain. We discussed following up with his doctor for an outpatient MRI as recommended by radiology. Will discharge at this time with precautions to return for worsening or changing symptoms. We also talked about specific symptoms of appendicitis that should prompt immediate return to the emergency department. Labs 04/08/25 16:33 04/08/25 16:33 Radiology Impressions Abdomen/Pelvis CT 04/08/25 17:54 IMPRESSION: 1. Mild fat stranding adjacent to the cecum extending towards the right inguinal canal could represent mild inflammation. No definite evidence to suggest acute appendicitis. 2. Patchy sclerosis within the T12 vertebral body and bilateral pelvic bones, possibly representing musculoskeletal involvement of leukemia. Nonemergent MRI could be considered for further assessment. Laboratory Results WBC 1.94 10^3/uL (3.29-11.43) L 04/08/25 16: RBC 2.77 10^6/uL (3.85-5.65) L 04/08/25 16: Hgb 9.70 g/dL (11.27-16.99) L 04/08/25 16: Hct 29.8 % (37-53) L 04/08/25 16:33 MCV 107.6 fl (82-101) H 04/08/25 16:33 MCH 35.0 pg (27-33) H 04/08/25 16: MCHC 32.6 g/dL (30-55) 04/08/25 16:33 RDW 16.5 % (12.1-15.1) H 04/08/25 16:33 Plt Count 161 10^3/cmm (157-399) 04/08/25 16:33 MPV 11.1 fL (7.4-10.4) H 04/08/25 16:33 Neut % (Auto) 49.0 % 04/08/25 16:33 Lymph % (Auto) 32.5 % 04/08/25 16:33 [place] % (Auto) 9.8 % 04/08/25 16:33 Eos % (Auto) 7.2 % 04/08/25 16:33 Baso % (Auto) 0.5 % 04/08/25 16:33 Neut # (Auto) 0.95 10^3/uL (1.8-7.7) L* 04/08/25 16:33 Lymph # (Auto) 0.6 10^3/uL (0.8-4.8) L 04/08/25 16:33 [place] # (Auto) 0.2 10^3/uL (0.2-0.9) 04/08/25 16:33 Eos # (Auto) 0.1 10^3/uL (0.0-0.8) 04/08/25 16:33 Baso # (Auto) 0.0 10^3/uL (0.0-0.1) 04/08/25 16:33 Nucleated RBC % (auto) 0 % 04/08/25 16:33 Nucleated RBCs # 0.0 /100WBC 04/08/25 16:33 Sodium 143 mmol/L (136-145) 04/08/25 16:33 Potassium 2.7 mmol/L (3.5-5.1) L* 04/08/25 16:33 Chloride 98 mmol/L (98-107) 04/08/25 16:33 Carbon Dioxide 31 mmol/L (22-29) H 04/08/25 16:33 Anion Gap 16.7 (5-19) 04/08/25 16:33 BUN 9 mg/dL (6-20) 04/08/25 16:33 Creatinine 0.4 mg/dL (0.7-1.2) L 04/08/25 16:33 GFR Calculation 260.0 mL/min (90-130) H 04/08/25 16:33 Glucose 93 mg/dL (65-115) 04/08/25 16:33 Calculated Osmolality 294 mOsm/kg (285-295) 04/08/25 16:33 Calcium 8.2 mg/dL (8.5-10.5) L 04/08/25 16:33 Magnesium 1.6 mg/dL (1.7-2.3) L 04/08/25 16:23 Total Bilirubin 1.3 mg/dL (0.15-1.2) H 04/08/25 16:33 AST 70 U/L (0-40) H 04/08/25 16:33 ALT 207 U/L (0-41) H 04/08/25 16:33 Alkaline Phosphatase 70 U/L (40-130) 04/08/25 16:33 Total Protein 5.2 g/dL (6.6-8.7) L 04/08/25 16:33 Albumin 3.7 g/dL (3.5-5.2) 04/08/25 16:33 Globulin 1.5 g/dL (1.3-4.6) 04/08/25 16:33 Urine Color Yellow (Yellow) 04/08/25 17:42 Urine Appearance Clear (CLEAR) 04/08/25 17:42 Urine pH 8.5 (5-7) A 04/08/25 17:42 Ur Specific [place] 1.009 (1.005-1.030) 04/08/25 17:42 Urine Protein Negative (Negative) 04/08/25 17:42 Urine Glucose (UA) Negative (Normal) 04/08/25 17:42 Urine Ketones Negative (Negative) 04/08/25 17:42 Urine Blood Negative (Negative) 04/08/25 17:42 Urine Nitrate Negative (Negative) 04/08/25 17:42 Urine Bilirubin Negative (Negative) 04/08/25 17:42 Urine Urobilinogen 1.0 mg/dL (Negative) 04/08/25 17:42 Ur Leukocyte Esterase Negative (Negative) 04/08/25 17:42 Urine RBC 0-2 /hpf (0-2) 04/08/25 17:42 Urine WBC 0-5 /hpf (0-5) 04/08/25 17:42 Ur Squamous Epith Cells 0-5 /hpf (0-5) 04/08/25 17:42 Amorphous Sediment Not Reportable 04/08/25 17:42 Urine Bacteria None seen /hpf (NONE) 04/08/25 17:42 Hyaline Casts 0-4 /lpf H 04/08/25 17:42 All radiology interpretation(s) finalized by discharge Discharge Plan Discharge Patient Disposition: Home Clinical Impression: Back pain, Acute lymphoblastic leukemia (ALL) Condition: Stable Prescriptions: No Action polyethylene glycol 3350 17 gram/dose powder 4 g PO DAILY PRN (Reason: Constipation) sennosides 8.6 mg tablet 8.6 mg PO BID PRN (Reason: Constipation) sertraline 50 mg tablet 50 mg PO DAILY hydrocodone-acetaminophen 5-325 mg tablet 5 - 325 tab PO PRN PRN (Reason: Pain, Moderate) prednisone 50 mg tablet 50 mg PO DAILY hydroxyzine HCl 25 mg tablet 25 mg PO DAILY morphine 15 mg tablet extended release 15 mg PO DAILY prednisone 50 mg tablet 100 mg PO DAILY 5 Days Qty: 10 0RF Rx Instructions: take on days 1-5 of a 28 day cycle amoxicillin-pot clavulanate 875-125 mg tablet 1 tab PO BID 10 Days Qty: 20 0RF lidocaine-prilocaine 2.5-2.5 % cream 1 applic topical .COMPLEX Qty: 30 2RF Rx Instructions: Apply quarter-size amount to port site 30 minutes prior to access; cover with cling wrap fluconazole 100 mg tablet 100 mg PO DAILY Qty: 90 2RF valacyclovir 500 mg tablet 500 mg PO BID Qty: 60 5RF sulfamethoxazole-trimethoprim [Bactrim DS] 800-160 mg tablet 1 tab PO MOWEFR Qty: 24 5RF methotrexate sodium 5 mg tablet 40 mg PO Q7D Qty: 28 5RF Rx Instructions: Take on the same day of the week every week. Do not alternate days. methotrexate sodium 2.5 mg tablet 2.5 mg PO Q7D Qty: 64 0RF Rx Instructions: 16 tablets by mouth every 7 days mercaptopurine 50 mg tablet 50 mg PO TID Qty: 90 5RF mercaptopurine 50 mg Tablet 50 mg PO TID 84 Days Qty: 84 0RF prednisone 50 mg Tablet 200 mg PO DAILY 5 Days Qty: 5 0RF Rx Instructions: take on days 1-5 of a 28 day cycle Discharge Orders: Discharge ED (Routine); Ordered 04/08/25 Ordered By: Mo Reyes Discharge Diet: Usual diet Patient Instructions: Opioid Safety, Pain Management, Patient Portal & Jonny Instructions Print Language: Ethiopian Coding Level of Care Code ED Cork Mixer for Marcelo Driscoll
[2025-04-08] MEDS: HYDROmorphone 0.5 MG/0.5 ML INJ IVP ×3 (16:37→18:17)
[2025-04-08 16:48] LABS: Hematocrit 29.8 % (37-53); Hemoglobin 9.70 g/dL (11.27-16.99); Mean Corpuscular HGB Conc 32.6 g/dL (30-55); Mean Corpuscular Hemoglobin 35.0 pg (27-33); Mean Corpuscular Volume 107.6 fl (82-101); Nucleated Red Blood Cells % 0 %; Platelet Count 161 10^3/cmm (157-399); Red Blood Count 2.77 10^6/uL (3.85-5.65); White Blood Count 1.94 10^3/uL (3.29-11.43)
[2025-04-08 17:06] VITALS: BP 137/80; PULSE 78; O2SAT 96
[2025-04-08 17:23] LABS: Alanine Aminotransferase 207 U/L (0-41); Albumin Level 3.7 g/dL (3.5-5.2); Alkaline Phosphatase 70 U/L (40-130); Anion Gap 16.7 (5-19); Aspartate Amino Transferase 70 U/L (0-40); Blood Urea Nitrogen 9 mg/dL (6-20); Calcium 8.2 mg/dL (8.5-10.5); Carbon Dioxide 31 mmol/L (22-29); Chloride 98 mmol/L (98-107); Creatinine Clr Calc Pharmacy 299.2104; Globulin 1.5 g/dL (1.3-4.6); Glucose 93 mg/dL (65-115); Osmolality Calculated 294 mOsm/kg (285-295); Sodium 143 mmol/L (136-145); Total Protein 5.2 g/dL (6.6-8.7)
[2025-04-08 17:27] LABS: Potassium 2.7 mmol/L (3.5-5.1)
[2025-04-08 17:31] LABS: Slide Review Slide Review Perform
[2025-04-08] MEDS: potassium chloride oral liq 20 mEq/15 mL UDC 40 MEQ PO (17:35)
--- NOTE | 2025-04-08 17:54 | CTR_ITS ---
PROCEDURE INFORMATION: Exam: CT Abdomen And Pelvis With Contrast Exam date and time: 04/08/2025 6:04 PM Age: 25 years old Clinical indication: Abdominal pain; Generalized; Additional info: Abd pain TECHNIQUE: Imaging protocol: Computed tomography of the abdomen and pelvis with contrast. Radiation optimization: All CT scans at this facility use at least one of these dose optimization techniques: automated exposure control; mA and/or kV adjustment per patient size (includes targeted exams where dose is matched to clinical indication); or iterative reconstruction. Contrast material: OMNIPAQUE 350; Contrast volume: 100 ml; Contrast route: INTRAVENOUS (IV); COMPARISON: 1. CT kidney stone [id number] 02/08/2024 10:[address] kidney stone [id number] 01/25/2024 4:49 PM RADIATION DOSE METRICS: Total DLP (mGy-cm): 558.32 FINDINGS: Tubes, catheters and devices: Distal tip of a central venous catheter is visualized near the superior cavoatrial junction. Liver: Normal. No mass. Gallbladder and biliary ducts: Several folds are seen within the gallbladder wall. No biliary ductal dilatation. Pancreas: Normal. No ductal dilation. Spleen: Normal. No splenomegaly. Adrenal glands: Normal. No mass. Kidneys and ureters: Normal. No hydronephrosis. Stomach and bowel: Moderate colonic stool. No bowel obstruction. Appendix: No evidence of appendicitis. Intraperitoneal space: Unremarkable. No free air. No significant fluid collection. Vasculature: Retroaortic left renal vein, normal variant. Lymph nodes: Unremarkable. No enlarged lymph nodes. Urinary bladder: Unremarkable as visualized. Reproductive: Unremarkable as visualized. Bones/joints: Mild patchy sclerosis of the T12 vertebral body as well as bilateral pelvic bones. Soft tissues: Mild fat stranding adjacent to the cecum extending toward the right inguinal canal. CT/CT abdomen pelvis w con* [id number] IMPRESSION: 1. Mild fat stranding adjacent to the cecum extending towards the right inguinal canal could represent mild inflammation. No definite evidence to suggest acute appendicitis. 2. Patchy sclerosis within the T12 vertebral body and bilateral pelvic bones, possibly representing musculoskeletal involvement of leukemia. Nonemergent MRI could be considered for further assessment.
[2025-04-08 17:55] LABS: Glucose Urine UA Negative (Normal); Nitrate Urine Negative (Negative); Specific Gravity, Urine 1.009 (1.005-1.030)
[2025-04-08 18:00] LABS: Add Urine Microscopic? YES
[2025-04-08] MEDS: iohexol 350 mg/mL 500 mL Btl (per mL) IV (18:06)
[2025-04-08 18:08] LABS: Magnesium 1.6 mg/dL (1.7-2.3)
[2025-04-08 18:30] VITALS: BP 138/84; PULSE 79; O2SAT 97
[2025-04-08 19:38] VITALS: BP 135/90; PULSE 83; RESP 17; O2SAT 97
== END 2025-04-08 19:35 | disposition home or self-care (01) ==
PROVIDERS: Emergency Provider Family Medicine
DX: C91.00 Acute lymphoblastic leukemia not having achieved remission (principal); M54.9 Dorsalgia, unspecified
CPT/HCPCS: 74177; 80053; 81001; 83735; 85025; 96361; 96374; 96375; 96376; 99285; J1171; J1642; J7030; J9999

== ENCOUNTER 2025-05-06 07:53 | Oncology outpatient (recurring) (ONCR) | payer MEDICAID, SELFPAY ==
[2025-05-06 08:25] LABS: Mean Corpuscular HGB Conc 33.5 g/dL (30-55); Nucleated Red Blood Cells % 0 %
[2025-05-06 08:31] LABS: Hematocrit 38.2 % (37-53); Hemoglobin 12.80 g/dL (11.27-16.99); Mean Corpuscular Hemoglobin 34.7 pg (27-33); Mean Corpuscular Volume 103.5 fl (82-101); Platelet Count 194 10^3/cmm (157-399); Red Blood Count 3.69 10^6/uL (3.85-5.65); White Blood Count 3.20 10^3/uL (3.29-11.43)
[2025-05-06 08:43] LABS: Alanine Aminotransferase 26 U/L (0-41); Albumin Level 4.3 g/dL (3.5-5.2); Alkaline Phosphatase 118 U/L (40-130); Anion Gap 13.8 (5-19); Aspartate Amino Transferase 22 U/L (0-40); Blood Urea Nitrogen 7 mg/dL (6-20); Calcium 8.9 mg/dL (8.5-10.5); Carbon Dioxide 27 mmol/L (22-29); Chloride 106 mmol/L (98-107); Creatinine Clr Calc Pharmacy 206.6556; Globulin 1.6 g/dL (1.3-4.6); Glucose 106 mg/dL (65-115); Osmolality Calculated 294 mOsm/kg (285-295); Potassium 3.8 mmol/L (3.5-5.1); Sodium 143 mmol/L (136-145); Total Protein 5.9 g/dL (6.6-8.7)
[2025-05-06 08:59] LABS: Slide Review Slide Review Perform
[2025-05-06] MEDS: ondansetron 2 mg/ML SDV 2 mL 8 MG IVP (10:15)
[2025-05-06 11:33] VITALS: BP 112/67; PULSE 62
== END 2025-05-18 23:59 | disposition home or self-care (01) ==
PROVIDERS: Nurse Practitioner; Visit Provider Internal Medicine Medical Oncology
DX: C91.00 Acute lymphoblastic leukemia not having achieved remission (principal); Z79.899 Other long term (current) drug therapy; Z92.21 Personal history of antineoplastic chemotherapy
CPT/HCPCS: 36591; 80053; 85025; 96375; 96413; 99214; J2405; J7050; J9370

== ENCOUNTER 2025-06-01 09:50 | Emergency (ER) | payer MEDICAID, SELFPAY ==
--- OUTSIDE RECORDS SUMMARY | 2025-04-18 23:59 | XMS_ITS | Continuity of Care Document ---
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 Intellectual disability Active Condition Problem Condition Procedure carried out on subject (situation) [...] Procedure carried out on subject (situation) Diagnosis Low back pain (disorder) Diagnosis Autistic disorder of childhood onset (disorder) Diagnosis Steatosis of liver (disorder) Diagnosis Dental caries (disorder) Diagnosis Cholelithiasis without obstruction (disorder) Diagnosis Bleeding from nose (finding) Diagnosis [...] potentially harmful entity (event) Diagnosis Jump from [facility] (finding) Diagnosis Pain in throat (finding) Diagnosis Blood chemistry abnormal (finding) Diagnosis Cannabis misuse (finding) Diagnosis Hydrocephalic shunt catheter in situ (finding) Diagnosis Periapical abscess (disorder) Diagnosis Increased aspartate transaminase level (finding) Diagnosis Place of occurrence of accident or poisoning (environment) Diagnosis 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 Diagnosis Hypomagnesemia (disorder) Diagnosis Hypokalemia (disorder) Diagnosis Disease of teeth AND/OR supporting structures (disorder) Diagnosis Nausea (finding) Diagnosis Jump from [facility] (finding) Diagnosis Systemic infection (disorder) Diagnosis Fever (finding) Diagnosis Neutropenia (finding) Diagnosis Splenomegaly (disorder) Diagnosis Anemia (disorder) Diagnosis Fever presenting with conditions classified elsewhere Active Diagnosis Encounter for antineoplastic chemotherapy Active Diagnosis Encounter for antineoplastic immunotherapy Active Diagnosis Medications Medication Details Route Status Patient Instructions Ordering Provider Order Date Source Sulfamethoxazole 800 MG / Trimethoprim 160 MG Oral Tablet [Bactrim] trimethoprim 160 mg = 1 Tablet(s), Oral, qM W F, # 30 Tablet(s), Refill(s) 1, Pharmacy: [facility], bedside delivery please, 182.8, cm, 07/19/24 13:21:00 CDT, Height (cm), kg, 07/19/24 13:21:00 CDT, Weight (kg), 72.[address] [facility] morphine sulfate 15 MG Extended Release Oral Tablet [MS Contin] 15 mg = 1 Tablet(s), Oral, q12h, # 60 Tablet(s), Refill(s) 0, Pharmacy: [facility] 15, 182.8, cm, 06/03/24 22:36:00 CDT, Height (cm), kg, 05/27/24 14:28:00 CDT, Weight (kg), 71.5 Active 2023 [facility] gabapentin 100 MG Oral Capsule 100 mg = 1 capsule(s), Oral, bid, # 60 capsule(s), Refill(s) 1, Pharmacy: [facility] 15, 182.8, cm, 06/03/24 22:36:00 CDT, Height (cm), kg, 05/27/24 14:28:00 CDT, Weight (kg), 71.5 Active 2023 [facility] Sulfamethoxazole 800 MG / Trimethoprim 160 MG Oral Tablet [Bactrim] trimethoprim 160 mg = 1 Tablet(s), Oral, qM W F, # 30 Tablet(s), Refill(s) 1, Pharmacy: [facility] 15, 182.8, cm, 06/03/24 22:36:00 CDT, Height (cm), kg, 05/27/24 14:28:00 CDT, Weight (kg), 71.5 Active 2023 [facility] Acetaminophen 325 MG / Hydrocodone Bitartrate 5 MG Oral Tablet 1 Tablet(s), Oral, q6h, Scheduled / PRN PRN Pain, Moderate, # 30 Tablet(s), Refill(s) 0, Pharmacy: [facility] 15, 182.8, cm, 06/03/24 22:36:00 CDT, Height (cm), kg, 05/27/24 14:28:00 CDT, Weight (kg), 71.5 Active 2023 [facility] Acyclovir 200 MG Oral Capsule 400 mg = 2 capsule(s), Oral, bid, # 60 capsule(s), Refill(s) 0, Pharmacy: [facility], 182.8, cm, 06/03/24 22:36:00 CDT, Height (cm), kg, 05/27/24 14:28:00 CDT, Weight (kg), 71.[address] [facility] Fluconazole 200 MG Oral Tablet 400 mg = 2 Tablet(s), Oral, Daily, # 30 Tablet(s), Refill(s) 0, Pharmacy: [facility], bedside delivery (patient needs a refill prior to discharge), 182.8, cm, 06/03/24 22:36:00 CDT, Height (cm), kg, 05/27/24 14:28:00 CDT, Weight (kg), 71.[address] [facility] Levofloxacin 500 MG Oral Tablet 500 mg = 1 Tablet(s), Oral, Daily, # 30 Tablet(s), Refill(s) 0, Pharmacy: [facility], bedside delivery, 182.8, cm, 06/03/24 22:36:00 CDT, Height (cm), kg, 05/27/24 14:28:00 CDT, Weight (kg), 71.[address] [facility] Results Order Name Results Value Reference Range Date Interpretation Comments Source GENERAL CHEMISTRY Estimated GFR for peds Not Calculated mL/min/1.7 3m 04/18 13:51 :00 Interpretive Data: The estimated GFR was calculated using the Teddy barker Dorado equation (2009) . Reference: Pediatric GFR calculator at [employer] Website. [facility] GENERAL CHEMISTRY Estimated GFR for Adults 129 mL/min/1.7 3m 04/18 13:51 :00 Interpretive Data: Changed to CKD-EPI 2020 on 2020. [facility] GENERAL CHEMISTRY AST-SGOT 56 U/L 04/18 13:51 :00 [facility] GENERAL CHEMISTRY CO2 28 mmol/L - 04/18 13:51 :00 [facility] GENERAL CHEMISTRY Potassium 3.8 mmol/L 3.5 - 5.1 04/18 13:51 :00 [facility] GENERAL CHEMISTRY Sodium 138 mmol/L 136 - 145 04/18 13:51 :00 [facility] GENERAL CHEMISTRY Chloride 101 mmol/L 98 - 107 04/18 13:51 :00 [facility] GENERAL CHEMISTRY Glucose Lvl 92 mg/dL 70 - 139 04/18 13:51 :00 [facility] GENERAL CHEMISTRY Total Protein 7.0 g/dL 5.7 - 8.2 04/18 13:51 :00 [facility] GENERAL CHEMISTRY T Bili 0.98 mg/dL 0.30 - 1.20 04/18 13:51 :00 [facility] GENERAL CHEMISTRY Anion gap 13 mmol/L 0 - 20 04/18 13:51 :00 [facility] GENERAL CHEMISTRY Calcium 10.3 mg/dL 8.3 - 10.6 04/18 13:51 :00 [facility] GENERAL CHEMISTRY BUN 6 mg/dL 6 - 20 04/18 13:51 :00 [facility] GENERAL CHEMISTRY ALT-SGPT 111 U/L 10 - 50 04/18 13:51 :00 [facility] GENERAL CHEMISTRY Alkaline Phosphatase 87 U/L 40 - 129 04/18 13:51 :00 [facility] GENERAL CHEMISTRY Albumin 4.4 g/dL 3.4 - 5.0 04/18 13:51 :00 [facility] GENERAL CHEMISTRY Creatinine, standardized 0.7 mg/dL 0.7 - 1.2 04/18 13:51 :00 Interpretive Data: Xxkgfi-hr-jfv e transgender patients on testosterone therapy should have results assessed using the male reference range. Mylt-kl-txabx e transgender patients on hormone-modul ating therapy clinical judgment is advisedfor assessment. [facility] HEMATOLOGY PROFILES MCHC 32.0 g/dL 32.0 - 36.0 04/18 13:51 :00 [facility] HEMATOLOGY PROFILES MCH 33.9 pg 26.0 - 33.0 04/18 13:51 :00 [facility] HEMATOLOGY PROFILES PLT 284 x10(9)/L 150 - 450 04/18 13:51 :00 [facility] HEMATOLOGY PROFILES RDW SD 64.1 fL 35.1 - 43.9 04/18 13:51 :00 [facility] HEMATOLOGY PROFILES RDW CV 16.2 % 11.8 - 15.6 04/18 13:51 :00 [facility] HEMATOLOGY PROFILES WBC 4.04 x10(9)/L 3.50 - 10.50 04/18 13:51 :00 [facility] HEMATOLOGY PROFILES MPV 10.4 8.0 - 12.0 04/18 13:51 :00 [facility] HEMATOLOGY PROFILES MCV 105.8 fL 81.2 - 95.1 04/18 13:51 :00 [facility] HEMATOLOGY PROFILES HCT 38.4 % 38.8 - 50.0 04/18 13:51 :00 Interpretive Data: Kwukef-uw-ujy e transgender patients on testosterone therapy should have results assessed using the male reference range. Yzhx-cf-pazvg e transgender patients on hormone-modul ating therapy clinical judgment is advisedfor assessment. [facility] HEMATOLOGY PROFILES HGB 12.3 g/dL 13.5 - 17.5 04/18 13:51 :00 Interpretive Data: Gkaubm-fs-oil e transgender patients on testosterone therapy should have results assessed using the male reference range. Ynug-sa-eknan e transgender patients on hormone-modul ating therapy clinical judgment is advisedfor assessment. [facility] HEMATOLOGY PROFILES RBC 3.63 x10(12)/L 4.32 - 5.72 04/18 13:51 :00 [facility] HEMATOLOGY PROFILES QA Review Agree (04/18/25 8:51 AM) 04/18 13:51 :00 [facility] HEMATOLOGY PROFILES Aniso 1+ (10-20%) *NA* (04/18/25 8:51 AM) 04/18 13:51 :00 [facility] HEMATOLOGY PROFILES Macro 1+ (25-50%) *NA* (04/18/25 8:51 AM) 04/18 13:51 :00 [facility] HEMATOLOGY PROFILES Lymphocytes Manual 27.6 % 04/18 13:51 :00 [facility] HEMATOLOGY PROFILES Abs Eosinophils Manual 0.31 x10(9)/L 0.05 - 0.50 04/18 13:51 :00 [facility] HEMATOLOGY PROFILES Monocytes Manual 15.2 % 04/18 13:51 :00 [facility] HEMATOLOGY PROFILES Abs Monocytes Manual 0.61 x10(9)/L 0.30 - 0.90 04/18 13:51 :00 [facility] HEMATOLOGY PROFILES Neuts Manual 46.7 % 04/18 13:51 :00 [facility] HEMATOLOGY PROFILES Eosinophils Manual 7.6 % 04/18 13:51 :00 [facility] HEMATOLOGY PROFILES Reactive Lymphs Manual 2.9 % 04/18 13:51 :00 [facility] HEMATOLOGY PROFILES Internal Review Yes (04/18/25 8:51 AM) 04/18 13:51 :00 [facility] HEMATOLOGY PROFILES Abs Lymphocytes Manual 1.12 x10(9)/L 0.90 - 2.90 04/18 13:51 :00 [facility] HEMATOLOGY PROFILES Platelet Estimate Adequate *NA* (04/18/25 8:51 AM) 04/18 13:51 :00 [facility] HEMATOLOGY PROFILES Absolute Neutrophils Manual 1.89 x10(9)/L 1.70 - 7.00 04/18 13:51 :00 [facility] HEMATOLOGY PROFILES Abs Reactive Lymphs Manual 00.12 04/18 13:51 :00 [facility] HEMATOLOGY PROFILES Morphology Present *NA* (04/18/25 8:51 AM) 04/18 13:51 :00 [facility] REFERENCE LABS 6-Methylmerc aptopurine riboside 6.49 5.04 - 9.57 02/28 18:04 :00 [facility] REFERENCE LABS 6-Methylthio guanine riboside 2.82 2.70 - 5.84 02/28 18:04 :00 [facility] REFERENCE LABS TPMT3 Reviewed By See Comment 02/28 18:04 :00 Result Comment: RESULT: Jose L Bravo M.D., Ph.D. Test Performed by: [address] [address] Director Of Customer Acquisition: Trista West Ph.D.; CLIA# [id number] [facility] REFERENCE LABS 6-Methylmerc aptopurine 4.64 3.00 - 6.66 02/28 18:04 :00 [facility] REFERENCE LABS TPMT Activity Profile, RBC Interp See Comment 02/28 18:04 :00 Result Comment: *Normal* In this whole blood sample, the profile of activity of thiopurine methyltransfe rase using three different substrates was normal or essentially normal. ------ADDITIO NAL INFORMATION-- ---- Liquid Chromatograph y-Tandem Mass Spectrometry (LC-MS/MS) This test was developed and its performance characteristi cs determined by [facility] in a manner consistent with CLIA requirements. This test has not been cleared or approved by the U.S. Food and Drug Administratio n. [facility] GENERAL CHEMISTRY Potassium 3.8 mmol/L 3.5 - 5.1 02/28 15:18 :00 [facility] GENERAL CHEMISTRY Sodium 140 mmol/L 136 - 145 02/28 15:18 :00 [facility] GENERAL CHEMISTRY Calcium 9.5 mg/dL 8.3 - 10.6 02/28 15:18 :00 [facility] GENERAL CHEMISTRY Chloride 102 mmol/L 98 - 107 02/28 15:18 :00 [facility] GENERAL CHEMISTRY Glucose Lvl 94 mg/dL 70 - 139 02/28 15:18 :00 [facility] GENERAL CHEMISTRY BUN 7 mg/dL 6 - 20 02/28 15:18 :00 [facility] GENERAL CHEMISTRY ALT-SGPT 179 U/L 10 - 50 02/28 15:18 :00 [facility] GENERAL CHEMISTRY AST-SGOT 95 U/L 02/28 15:18 :00 [facility] GENERAL CHEMISTRY Alkaline Phosphatase 136 U/L 40 - 129 02/28 15:18 :00 [facility] GENERAL CHEMISTRY Albumin 3.9 g/dL 3.4 - 5.0 02/28 15:18 :00 [facility] GENERAL CHEMISTRY Estimated GFR for peds Not Calculated mL/min/1.7 3m 02/28 15:18 :00 Interpretive Data: The estimated GFR was calculated using the Teddy barker Dorado equation (2009) . Reference: Pediatric GFR calculator at [employer] Website. [facility] GENERAL CHEMISTRY Estimated GFR for Adults 134 mL/min/1.7 02/28 15:18 :00 Interpretive Data: Changed to CKD-EPI 2020 on 2020. [facility] GENERAL CHEMISTRY Creatinine, standardized 0.6 mg/dL 0.7 - 1.2 02/28 15:18 :00 Interpretive Data: Rghhox-lw-flh e transgender patients on testosterone therapy should have results assessed using the male reference range. Btfr-rq-sjwrd e transgender patients on hormone-modul ating therapy clinical judgment is advisedfor assessment. [facility] GENERAL CHEMISTRY Anion gap 15 mmol/L 0 - 20 02/28 15:18 :00 [facility] GENERAL CHEMISTRY CO2 27 mmol/L 20 - 31 02/28 15:18 :00 [facility] GENERAL CHEMISTRY Total Protein 6.1 g/dL 5.7 - 8.2 02/28 15:18 :00 [facility] GENERAL CHEMISTRY T Bili 1.14 mg/dL 0.30 - 1.20 02/28 15:18 :00 [facility] HEMATOLOGY PROFILES MCH 33.8 pg 26.0 - 33.0 02/28 15:18 :00 [facility] HEMATOLOGY PROFILES MCV 104.3 fL 81.2 - 95.1 02/28 15:18 :00 [facility] HEMATOLOGY PROFILES RDW CV 17.2 % 11.8 - 15.6 02/28 15:18 :00 [facility] HEMATOLOGY PROFILES MCHC 32.4 g/dL 32.0 - 36.0 02/28 15:18 :00 [facility] HEMATOLOGY PROFILES HCT 31.5 % 38.8 - 50.0 02/28 15:18 :00 Interpretive Data: Ajmkpa-bl-pgd e transgender patients on testosterone therapy should have results assessed using the male reference range. Dfsn-cw-viapj e transgender patients on hormone-modul ating therapy clinical judgment is advisedfor assessment. [facility] HEMATOLOGY PROFILES MPV 10.5 8.0 - 12.0 02/28 15:18 :00 [facility] HEMATOLOGY PROFILES PLT 140 x10(9)/L 150 - 450 02/28 15:18 :00 [facility] HEMATOLOGY PROFILES RDW SD 64.5 fL 35.1 - 43.9 02/28 15:18 :00 [facility] HEMATOLOGY PROFILES WBC 1.28 x10(9)/L 3.50 - 10.50 02/28 15:18 :00 [facility] HEMATOLOGY PROFILES HGB 10.2 g/dL 13.5 - 17.5 02/28 15:18 :00 Interpretive Data: Dicxhe-dn-tuj e transgender patients on testosterone therapy should have results assessed using the male reference range. Jqqi-ia-rfive e transgender patients on hormone-modul ating therapy clinical judgment is advisedfor assessment. [facility] HEMATOLOGY PROFILES RBC 3.02 x10(12)/L 4.32 - 5.72 02/28 15:18 :00 [facility] HEMATOLOGY PROFILES Path Review Smear Pathologis t Review of Smear Interpreta tion: Agree Interprete d by: Susy Barragan i, MD 02/28 15:18 :00 [facility] HEMATOLOGY PROFILES QA Review Agree (02/28/25 10:18 AM) 02/28 15:18 :00 [facility] HEMATOLOGY PROFILES Atypical Lymphs Manual 2.5 % 02/28 15:18 :00 [facility] HEMATOLOGY PROFILES Basophils Manual 1.7 % 02/28 15:18 :00 [facility] HEMATOLOGY PROFILES Eosinophils Manual 14.0 % 02/28 15:18 :00 [facility] HEMATOLOGY PROFILES Monocytes Manual 0.8 % 02/28 15:18 :00 [facility] HEMATOLOGY PROFILES Abs Eosinophils Manual 0.18 x10(9)/L 0.05 - 0.50 02/28 15:18 :00 [facility] HEMATOLOGY PROFILES Abs Basophils Manual 0.02 x10(9)/L 0.00 - 0.30 02/28 15:18 :00 [facility] HEMATOLOGY PROFILES Lymphocytes Manual 52.9 % 02/28 15:18 :00 [facility] HEMATOLOGY PROFILES Neuts Manual 28.1 % 02/28 15:18 :00 [facility] HEMATOLOGY PROFILES Abs Monocytes Manual 0.01 x10(9)/L 0.30 - 0.90 02/28 15:18 :00 [facility] HEMATOLOGY PROFILES Internal Review Yes (02/28/25 10:18 AM) 02/28 15:18 :00 [facility] HEMATOLOGY PROFILES Absolute Neutrophils Manual 0.36 x10(9)/L 1.70 - 7.00 02/28 15:18 :00 Result Comment: This result has been called to Carol Bland RN by [email or web address] on 02/28/2025 11:13:26, and has been read back. [facility] HEMATOLOGY PROFILES Abs Lymphocytes Manual 0.68 x10(9)/L 0.90 - 2.90 02/28 15:18 :00 [facility] HEMATOLOGY PROFILES Abs Atypical Lymphocytes Manual 0.03 x10(9)/L 0.00 - 0.11 02/28 15:18 :00 [facility] HEMATOLOGY PROFILES Elliptocytes (Ovalocytes) 1+ (10-25%) *NA* (02/28/25 10:18 AM) 02/28 15:18 :00 [facility] HEMATOLOGY PROFILES Aniso 1+ (10-20%) *NA* (02/28/25 10:18 AM) 02/28 15:18 :00 [facility] HEMATOLOGY PROFILES Platelet Estimate Decreased *NA* (02/28/25 10:18 AM) 02/28 15:18 :00 [facility] HEMATOLOGY PROFILES Morphology Present *NA* (02/28/25 10:18 AM) 02/28 15:18 :00 [facility] HEMATOLOGY PROFILES Schistocytes 1+ (Rare-3%) *NA* (02/28/25 10:18 AM) 02/28 15:18 :00 [facility] GENERAL CHEMISTRY ALT-SGPT 26 U/L 10 - 50 11/12 15:55 :00 [facility] GENERAL CHEMISTRY Estimated GFR for Adults 132 mL/min/1.7 3m 11/12 15:55 :00 Interpretive Data: Changed to CKD-EPI 2020 on 2020. [facility] GENERAL CHEMISTRY BUN 9 mg/dL 6 - 20 11/12 15:55 :00 [facility] GENERAL CHEMISTRY Calcium 9.5 mg/dL 8.3 - 10.6 11/12 15:55 :00 [facility] GENERAL CHEMISTRY T Bili 0.44 mg/dL 0.30 - 1.20 11/12 15:55 :00 [facility] GENERAL CHEMISTRY Glucose Lvl 108 mg/dL 70 - 139 11/12 15:55 :00 [facility] GENERAL CHEMISTRY Total Protein 6.9 g/dL 5.7 - 8.2 11/12 15:55 :00 [facility] GENERAL CHEMISTRY Estimated GFR for peds Not Calculated mL/min/1.7 3m 11/12 15:55 :00 Interpretive Data: The estimated GFR was calculated using the Teddy barker Dorado equation (2009) . Reference: Pediatric GFR calculator at [employer] Website. [facility] GENERAL CHEMISTRY Creatinine, standardized 0.7 mg/dL 0.7 - 1.2 11/12 15:55 :00 Interpretive Data: Qtsaxq-aj-gfg e transgender patients on testosterone therapy should have results assessed using the male reference range. Btue-ci-lkvvc e transgender patients on hormone-modul ating therapy clinical judgment is advisedfor assessment. [facility] GENERAL CHEMISTRY Chloride 104 mmol/L 98 - 107 11/12 15:55 :00 [facility] GENERAL CHEMISTRY Sodium 140 mmol/L 136 - 145 11/12 15:55 :00 [facility] GENERAL CHEMISTRY AST-SGOT 27 U/L 11/12 15:55 :00 [facility] GENERAL CHEMISTRY Potassium 3.8 mmol/L 3.5 - 5.1 11/12 15:55 :00 [facility] GENERAL CHEMISTRY Albumin 4.6 g/dL 3.4 - 5.0 11/12 15:55 :00 [facility] GENERAL CHEMISTRY CO2 26 mmol/L 20 - 31 11/12 15:55 :00 [facility] GENERAL CHEMISTRY Alkaline Phosphatase 127 U/L 40 - 129 11/12 15:55 :00 [facility] GENERAL CHEMISTRY Anion gap 14 mmol/L 0 - 20 11/12 15:55 :00 [facility] HEMATOLOGY PROFILES RDW CV 14.5 % 11.8 - 15.6 11/12 15:55 :00 [facility] HEMATOLOGY PROFILES MCV 98.4 fL 81.2 - 95.1 11/12 15:55 :00 [facility] HEMATOLOGY PROFILES HCT 44.2 % 38.8 - 50.0 11/12 15:55 :00 Interpretive Data: Hyiloo-jr-kdp e transgender patients on testosterone therapy should have results assessed using the male reference range. Hasc-vz-eocki e transgender patients on hormone-modul ating therapy clinical judgment is advisedfor assessment. [facility] HEMATOLOGY PROFILES MCHC 31.4 g/dL 32.0 - 36.0 11/12 15:55 :00 [facility] HEMATOLOGY PROFILES MCH 31.0 pg 26.0 - 33.0 11/12 15:55 :00 [facility] HEMATOLOGY PROFILES MPV 9.5 8.0 - 12.0 11/12 15:55 :00 [facility] HEMATOLOGY PROFILES HGB 13.9 g/dL 13.5 - 17.5 11/12 15:55 :00 Interpretive Data: Lgwulp-lq-vya e transgender patients on testosterone therapy should have results assessed using the male reference range. Ybyk-tu-akrym e transgender patients on hormone-modul ating therapy clinical judgment is advisedfor assessment. [facility] HEMATOLOGY PROFILES RDW SD 52.6 fL 35.1 - 43.9 11/12 15:55 :00 [facility] HEMATOLOGY PROFILES PLT 256 x10(9)/L 150 - 450 11/12 15:55 :00 [facility] HEMATOLOGY PROFILES WBC 10.13 x10(9)/L 3.50 - 10.50 11/12 15:55 :00 [facility] HEMATOLOGY PROFILES RBC 4.49 x10(12)/L 4.32 - 5.72 11/12 15:55 :00 [facility] HEMATOLOGY PROFILES % Neutrophils 71.1 % 11/12 15:55 :00 [facility] HEMATOLOGY PROFILES Abs Eosinophils 0.54 x10(9)/L 0.05 - 0.50 11/12 15:55 :00 [facility] HEMATOLOGY PROFILES Absolute Nucleated RBCs 0.0 x10(9)/L 0.0 - 0.0 11/12 15:55 :00 Interpretive Data: Normal values not established in patients less than 18 years old. [facility] HEMATOLOGY PROFILES Abs Monocytes 0.86 x10(9)/L 0.30 - 0.90 11/12 15:55 :00 [facility] HEMATOLOGY PROFILES % Monocytes 8.5 % 11/12 15:55 :00 [facility] HEMATOLOGY PROFILES % Lymphocytes 13.2 % 11/12 15:55 :00 [facility] HEMATOLOGY PROFILES Abs Basophils 0.09 x10(9)/L 0.00 - 0.30 11/12 15:55 :00 [facility] HEMATOLOGY PROFILES Abs Lymphocytes 1.34 x10(9)/L 0.90 - 2.90 11/12 15:55 :00 [facility] HEMATOLOGY PROFILES Absolute Granulocytes 7.20 x10(9)/L 1.70 - 7.00 11/12 15:55 :00 [facility] HEMATOLOGY PROFILES % Nucleated RBCs 0.0 % 11/12 15:55 :00 [facility] HEMATOLOGY PROFILES % Basophils 0.9 % 11/12 15:55 :00 [facility] HEMATOLOGY PROFILES % Immature Granulocytes 1.00 % 0.02 - 0.42 11/12 15:55 :00 [facility] HEMATOLOGY PROFILES % Eosinophils 5.3 % 11/12 15:55 :00 [facility] HEMATOLOGY PROFILES Abs Immature Granulocytes 0.10 x10(9)/L 0.00 - 0.03 11/12 15:55 :00 [facility] GENERAL CHEMISTRY Alkaline Phosphatase 122 U/L 40 - 129 10/25 13:44 :00 [facility] GENERAL CHEMISTRY AST-SGOT 27 U/L 10/25 13:44 :00 [facility] GENERAL CHEMISTRY Albumin 3.9 g/dL 3.4 - 5.0 10/25 13:44 :00 [facility] GENERAL CHEMISTRY Glucose Lvl 78 mg/dL 70 - 139 10/25 13:44 :00 [facility] GENERAL CHEMISTRY Calcium 9.0 mg/dL 8.3 - 10.6 10/25 13:44 :00 [facility] GENERAL CHEMISTRY Total Protein 6.1 g/dL 5.7 - 8.2 10/25 13:44 :00 [facility] GENERAL CHEMISTRY ALT-SGPT 25 U/L 10 - 50 10/25 13:44 :00 [facility] GENERAL CHEMISTRY BUN 7 mg/dL 6 - 20 10/25 13:44 :00 [facility] GENERAL CHEMISTRY Creatinine, standardized 0.5 mg/dL 0.7 - 1.2 10/25 13:44 :00 Interpretive Data: Zjoort-lr-fnt e transgender patients on testosterone therapy should have results assessed using the male reference range. Mmux-ms-uyzlm e transgender patients on hormone-modul ating therapy clinical judgment is advisedfor assessment. [facility] GENERAL CHEMISTRY Sodium 141 mmol/L 136 - 145 10/25 13:44 :00 [facility] GENERAL CHEMISTRY Potassium 3.9 mmol/L 3.5 - 5.1 10/25 13:44 :00 [facility] GENERAL CHEMISTRY Estimated GFR for peds Not Calculated mL/min/1.7 3m 10/25 13:44 :00 Interpretive Data: The estimated GFR was calculated using the B lucero Dorado equation (2009) . Reference: Pediatric GFR calculator at [employer] Website. [facility] GENERAL CHEMISTRY Chloride 105 mmol/L 98 - 107 10/25 13:44 :00 [facility] GENERAL CHEMISTRY Estimated GFR for Adults 144 mL/min/1.7 10/25 13:44 :00 Interpretive Data: Changed to CKD-EPI 2020 on 2020. [facility] GENERAL CHEMISTRY Anion gap 12 mmol/L 0 - 20 10/25 13:44 :00 [facility] GENERAL CHEMISTRY T Bili 0.30 mg/dL 0.30 - 1.20 10/25 13:44 :00 [facility] GENERAL CHEMISTRY CO2 28 mmol/L 20 - 31 10/25 13:44 :00 [facility] GENERAL CHEMISTRY LDH 251 U/L 120 - 246 10/25 13:44 :00 [facility] HEMATOLOGY PROFILES MCHC 30.1 g/dL 32.0 - 36.0 10/25 13:44 :00 [facility] HEMATOLOGY PROFILES MCH 32.4 pg 26.0 - 33.0 10/25 13:44 :00 [facility] HEMATOLOGY PROFILES RDW SD 65.1 fL 35.1 - 43.9 10/25 13:44 :00 [facility] HEMATOLOGY PROFILES RDW CV 16.1 % 11.8 - 15.6 10/25 13:44 :00 [facility] HEMATOLOGY PROFILES PLT 261 x10(9)/L 150 - 450 10/25 13:44 :00 [facility] HEMATOLOGY PROFILES HCT 35.2 % 38.8 - 50.0 10/25 13:44 :00 Interpretive Data: Brdikt-lo-gux e transgender patients on testosterone therapy should have results assessed using the male reference range. Vxsi-ms-eemrq e transgender patients on hormone-modul ating therapy clinical judgment is advisedfor assessment. [facility] HEMATOLOGY PROFILES WBC 4.24 x10(9)/L 3.50 - 10.50 10/25 13:44 :00 [facility] HEMATOLOGY PROFILES HGB 10.6 g/dL 13.5 - 17.5 10/25 13:44 :00 Interpretive Data: Cwuwyi-kf-ulu e transgender patients on testosterone therapy should have results assessed using the male reference range. Cfkv-dj-hirpr e transgender patients on hormone-modul ating therapy clinical judgment is advisedfor assessment. [facility] HEMATOLOGY PROFILES RBC 3.27 x10(12)/L 4.32 - 5.72 10/25 13:44 :00 [facility] HEMATOLOGY PROFILES MCV 107.6 fL 81.2 - 95.1 10/25 13:44 :00 [facility] HEMATOLOGY PROFILES MPV 9.5 8.0 - 12.0 10/25 13:44 :00 [facility] HEMATOLOGY PROFILES Eosinophils Manual 3.6 % 10/25 13:44 :00 [facility] HEMATOLOGY PROFILES Abs Lymphocytes Manual 0.53 x10(9)/L 0.90 - 2.90 10/25 13:44 :00 [facility] HEMATOLOGY PROFILES Absolute Neutrophils Manual 2.52 x10(9)/L 1.70 - 7.00 10/25 13:44 :00 [facility] HEMATOLOGY PROFILES Monocytes Manual 19.8 % 10/25 13:44 :00 [facility] HEMATOLOGY PROFILES Atypical Lymphs Manual 2.7 % 10/25 13:44 :00 [facility] HEMATOLOGY PROFILES Lymphocytes Manual 12.6 % 10/25 13:44 :00 [facility] HEMATOLOGY PROFILES Aniso 1+ (10-20%) *NA* (10/25/24 7:44 AM) 10/25 13:44 :00 [facility] HEMATOLOGY PROFILES Platelet Estimate Adequate *NA* (10/25/24 7:44 AM) 10/25 13:44 :00 [facility] HEMATOLOGY PROFILES Abs Myelos 0.04 x10(9)/L 0.00 - 0.11 10/25 13:44 :00 [facility] HEMATOLOGY PROFILES Abs Basophils Manual 0.04 x10(9)/L 0.00 - 0.30 10/25 13:44 :00 [facility] HEMATOLOGY PROFILES Abs Eosinophils Manual 0.15 x10(9)/L 0.05 - 0.50 10/25 13:44 :00 [facility] HEMATOLOGY PROFILES Morphology Present *NA* (10/25/24 7:44 AM) 10/25 13:44 :00 [facility] HEMATOLOGY PROFILES Abs Monocytes Manual 0.84 x10(9)/L 0.30 - 0.90 10/25 13:44 :00 [facility] HEMATOLOGY PROFILES Abs Atypical Lymphocytes Manual 0.11 x10(9)/L 0.00 - 0.11 10/25 13:44 :00 [facility] HEMATOLOGY PROFILES Myelos hp 0.9 % 10/25 13:44 :00 [facility] HEMATOLOGY PROFILES Basophils Manual 0.9 % 10/25 13:44 :00 [facility] HEMATOLOGY PROFILES Teardrop 1+ (3-6%) *NA* (10/25/24 7:44 AM) 10/25 13:44 :00 [facility] HEMATOLOGY PROFILES Schistocytes 1+ (Rare-3%) *NA* (10/25/24 7:44 AM) 10/25 13:44 :00 [facility] HEMATOLOGY PROFILES Macro 1+ (25-50%) *NA* (10/25/24 7:44 AM) 10/25 13:44 :00 [facility] HEMATOLOGY PROFILES Elliptocytes (Ovalocytes) 1+ (10-25%) *NA* (10/25/24 7:44 AM) 10/25 13:44 :00 [facility] HEMATOLOGY PROFILES Neuts Manual 59.5 % 10/25 13:44 :00 [facility] HEMATOLOGY PROFILES Internal Review Yes (10/25/24 7:44 AM) 10/25 13:44 :00 [facility] HEMATOLOGY PROFILES QA Review Agree (10/25/24 7:44 AM) 10/25 13:44 :00 [facility] HEMATOLOGY PROFILES Path Review Smear Pathologis t Review of Smear Interpreta tion: MCV >105 Interprete d by: Susy Barragan i, MD 10/25 13:44 :00 [facility] REFERENCE LABS MRD Tracking-Letitia noseq see scanned 09/19 22:11 :00 [facility] GENERAL CHEMISTRY Calcium 8.8 mg/dL 8.3 - 10.6 09/18 07:33 :00 [facility] GENERAL CHEMISTRY Glucose Lvl 119 mg/dL 70 - 139 09/18 07:33 :00 [facility] GENERAL CHEMISTRY Chloride 105 mmol/L 98 - 107 09/18 07:33 :00 [facility] GENERAL CHEMISTRY ALT-SGPT 115 U/L 10 - 50 09/18 07:33 :00 [facility] GENERAL CHEMISTRY BUN 10 mg/dL 6 - 20 09/18 07:33 :00 [facility] GENERAL CHEMISTRY Total Protein 5.6 g/dL 5.7 - 8.2 09/18 07:33 :00 [facility] GENERAL CHEMISTRY Creatinine, standardized 0.4 mg/dL 0.7 - 1.2 09/18 07:33 :00 Interpretive Data: Flyqkt-tm-ssc e transgender patients on testosterone therapy should have results assessed using the male reference range. Vhik-ah-cqzzg e transgender patients on hormone-modul ating therapy clinical judgment is advisedfor assessment. [facility] GENERAL CHEMISTRY Anion gap 10 mmol/L 0 - 20 09/18 07:33 :00 [facility] GENERAL CHEMISTRY T Bili 0.41 mg/dL 0.30 - 1.20 09/18 07:33 :00 [facility] GENERAL CHEMISTRY Sodium 139 mmol/L 136 - 145 09/18 07:33 :00 [facility] GENERAL CHEMISTRY Potassium 3.8 mmol/L 3.5 - 5.1 09/18 07:33 :00 [facility] GENERAL CHEMISTRY CO2 28 mmol/L 20 - 31 09/18 07:33 :00 [facility] GENERAL CHEMISTRY Albumin 3.3 g/dL 3.4 - 5.0 09/18 07:33 :00 [facility] GENERAL CHEMISTRY Alkaline Phosphatase 110 U/L 40 - 129 09/18 07:33 :00 [facility] GENERAL CHEMISTRY AST-SGOT 21 U/L 09/18 07:33 :00 [facility] GENERAL CHEMISTRY Estimated GFR for Adults 150 mL/min/1.7 3m 09/18 07:33 :00 Interpretive Data: Changed to CKD-EPI [address] [facility] GENERAL CHEMISTRY Estimated GFR for peds Not Calculated mL/min/1.7 3m 09/18 07:33 :00 Interpretive Data: The estimated GFR was calculated using the B edside Dorado equation (2009) . Reference: Pediatric GFR calculator at [employer] Website. [facility] HEMATOLOGY PROFILES % Nucleated RBCs 0.0 % 09/18 07:33 :00 [facility] HEMATOLOGY PROFILES MPV 9.8 8.0 - 12.0 09/18 07:33 :00 [facility] HEMATOLOGY PROFILES PLT 191 x10(9)/L 150 - 450 09/18 07:33 :00 [facility] HEMATOLOGY PROFILES RDW SD 66.6 fL 35.1 - 43.9 09/18 07:33 :00 [facility] HEMATOLOGY PROFILES RDW CV 17.6 % 11.8 - 15.6 09/18 07:33 :00 [facility] HEMATOLOGY PROFILES Absolute Nucleated RBCs 0.0 x10(9)/L 0.0 - 0.0 09/18 07:33 :00 Interpretive Data: Normal values not established in patients less than [address] [facility] HEMATOLOGY PROFILES WBC 7.17 x10(9)/L 3.50 - 10.50 09/18 07:33 :00 [facility] HEMATOLOGY PROFILES RBC 2.57 x10(12)/L 4.32 - 5.72 09/18 07:33 :00 [facility] HEMATOLOGY PROFILES MCHC 32.1 g/dL 32.0 - 36.0 09/18 07:33 :00 [facility] HEMATOLOGY PROFILES MCH 32.7 pg 26.0 - 33.0 09/18 07:33 :00 [facility] HEMATOLOGY PROFILES MCV 101.9 fL 81.2 - 95.1 09/18 07:33 :00 [facility] HEMATOLOGY PROFILES HCT 26.2 % 38.8 - 50.0 09/18 07:33 :00 Interpretive Data: Ytfkaj-rx-kke e transgender patients on testosterone therapy should have results assessed using the male reference range. Xmhu-xg-lsrvo e transgender patients on hormone-modul ating therapy clinical judgment is advisedfor assessment. [facility] HEMATOLOGY PROFILES HGB 8.4 g/dL 13.5 - 17.5 09/18 07:33 :00 Interpretive Data: Mxzzys-cb-wch e transgender patients on testosterone therapy should have results assessed using the male reference range. Jxlz-ia-danyk e transgender patients on hormone-modul ating therapy clinical judgment is advisedfor assessment. [facility] GENERAL CHEMISTRY Estimated GFR for peds Not Calculated mL/min/1.7 3m 09/17 09:22 :00 Interpretive Data: The estimated GFR was calculated using the B edside Dorado equation (2009) . Reference: Pediatric GFR calculator at [employer] Website. [facility] GENERAL CHEMISTRY Estimated GFR for Adults 146 mL/min/1.7 3m 09/17 09:22 :00 Interpretive Data: Changed to CKD-EPI [address] [facility] GENERAL CHEMISTRY Calcium 8.8 mg/dL 8.3 - 10.6 09/17 09:22 :00 [facility] GENERAL CHEMISTRY Glucose Lvl 116 mg/dL 70 - 139 09/17 09:22 :00 [facility] GENERAL CHEMISTRY BUN 10 mg/dL 6 - 20 09/17 09:22 :00 [facility] CHEMISTRY ALT-SGPT 153 U/L 10 - 50 09/17 09:22 :00 [facility] GENERAL CHEMISTRY Albumin 3.4 g/dL 3.4 - 5.0 09/17 09:22 :00 [facility] GENERAL CHEMISTRY Alkaline Phosphatase 113 U/L 40 - 129 09/17 09:22 :00 [facility] GENERAL CHEMISTRY AST-SGOT 33 U/L 09/17 09:22 :00 [facility] GENERAL CHEMISTRY Creatinine, standardized 0.5 mg/dL 0.7 - 1.2 09/17 09:22 :00 Interpretive Data: Lnmszz-iy-qnz e transgender patients on testosterone therapy should have results assessed using the male reference range. Sddf-ns-sboyx e transgender patients on hormone-modul ating therapy clinical judgment is advisedfor assessment. [facility] CHEMISTRY T Bili 0.40 mg/dL 0.30 - 1.20 09/17 09:22 :00 [facility] GENERAL CHEMISTRY Total Protein 5.7 g/dL 5.7 - 8.2 09/17 09:22 :00 [facility] CHEMISTRY Anion gap 11 mmol/L 0 - 20 09/17 09:22 :00 [facility] GENERAL CHEMISTRY CO2 29 mmol/L 09/17 09:22 :00 [facility] GENERAL CHEMISTRY Potassium 4.2 mmol/L 3.5 - 5.1 09/17 09:22 :00 [facility] GENERAL CHEMISTRY Chloride 102 mmol/L 98 - 107 09/17 09:22 :00 [facility] GENERAL CHEMISTRY Sodium 138 mmol/L 136 - 145 09/17 09:22 :00 [facility] HEMATOLOGY PROFILES WBC 8.00 x10(9)/L 3.50 - 10.50 09/17 09:22 :00 [facility] HEMATOLOGY PROFILES HCT 26.7 % 38.8 - 50.0 09/17 09:22 :00 Interpretive Data: Pqdkus-ff-csk e transgender patients on testosterone therapy should have results assessed using the male reference range. Cpbc-yr-vsufb e transgender patients on hormone-modul ating therapy clinical judgment is advisedfor assessment. [facility] HEMATOLOGY PROFILES HGB 8.4 g/dL 13.5 - 17.5 09/17 09:22 :00 Interpretive Data: Gnwqna-sz-vjq e transgender patients on testosterone therapy should have results assessed using the male reference range. Bord-ba-pmflc e transgender patients on hormone-modul ating therapy clinical judgment is advisedfor assessment. [facility] HEMATOLOGY PROFILES RBC 2.55 x10(12)/L 4.32 - 5.72 09/17 09:22 :00 [facility] HEMATOLOGY PROFILES MCH 32.9 pg 26.0 - 33.0 09/17 09:22 :00 [facility] HEMATOLOGY PROFILES MCV 104.7 fL 81.2 - 95.1 09/17 09:22 :00 [facility] HEMATOLOGY PROFILES PLT 225 x10(9)/L 150 - 450 09/17 09:22 :00 [facility] HEMATOLOGY PROFILES RDW SD 70.9 fL 35.1 - 43.9 09/17 09:22 :00 [facility] HEMATOLOGY PROFILES RDW CV 18.2 % 11.8 - 15.6 09/17 09:22 :00 [facility] HEMATOLOGY PROFILES MCHC 31.5 g/dL 32.0 - 36.0 09/17 09:22 :00 [facility] HEMATOLOGY PROFILES MPV 10.5 8.0 - 12.0 09/17 09:22 :00 [facility] HEMATOLOGY PROFILES % Nucleated RBCs 0.0 % 09/17 09:22 :00 [facility] HEMATOLOGY PROFILES Absolute Nucleated RBCs 0.0 x10(9)/L 0.0 - 0.0 09/17 09:22 :00 Interpretive Data: Normal values not established in patients less than [address] [facility] HEMATOLOGY PROFILES % Neutrophils 95.3 % 09/17 09:22 :00 [facility] HEMATOLOGY PROFILES % Monocytes 2.1 % 09/17 09:22 :00 [facility] HEMATOLOGY PROFILES % Eosinophils 0.0 % 09/17 09:22 :00 [facility] HEMATOLOGY PROFILES % Basophils 0.1 % 09/17 09:22 :00 [facility] HEMATOLOGY PROFILES % Immature Granulocytes 1.10 % 0.02 - 0.42 09/17 09:22 :00 [facility] HEMATOLOGY PROFILES % Lymphocytes 1.4 % 12/31 /2024 09:22 :00 [facility] HEMATOLOGY PROFILES Abs Monocytes 0.17 x10(9)/L 0.30 - 0.90 09/17 09:22 :00 [facility] HEMATOLOGY PROFILES Abs Eosinophils 0.00 x10(9)/L 0.05 - 0.50 09/17 09:22 :00 [facility] HEMATOLOGY PROFILES Abs Basophils 0.01 x10(9)/L 0.00 - 0.30 09/17 09:22 :00 [facility] HEMATOLOGY PROFILES Abs Immature Granulocytes 0.09 x10(9)/L 0.00 - 0.03 09/17 09:22 :00 [facility] HEMATOLOGY PROFILES Abs Lymphocytes 0.11 x10(9)/L 0.90 - 2.90 09/17 09:22 :00 [facility] HEMATOLOGY PROFILES Absolute Granulocytes 7.62 x10(9)/L 1.70 - 7.00 09/17 09:22 :00 [facility] HEMATOLOGY PROFILES Morphology Previously Reviewed, results remain consistent *NA* (09/17/24 3:22 AM) 09/17 09:22 :00 [facility] GENERAL CHEMISTRY Total Protein 6.2 g/dL 5.7 - 8.2 09/16 20:49 :00 [facility] GENERAL CHEMISTRY T Bili 0.57 mg/dL 0.30 - 1.20 09/16 20:49 :00 [facility] GENERAL CHEMISTRY Anion gap 11 mmol/L 0 - 20 09/16 20:49 :00 [facility] GENERAL CHEMISTRY CO2 29 mmol/L 20 - 31 09/16 20:49 :00 [facility] GENERAL CHEMISTRY Potassium 4.2 mmol/L 3.5 - 5.1 09/16 20:49 :00 [facility] GENERAL CHEMISTRY Sodium 139 mmol/L 136 - 145 09/16 20:49 :00 [facility] GENERAL CHEMISTRY Chloride 103 mmol/L 98 - 107 09/16 20:49 :00 [facility] GENERAL CHEMISTRY Glucose Lvl 109 mg/dL 70 - 139 09/16 20:49 :00 [facility] GENERAL CHEMISTRY Estimated GFR for peds Not Calculated mL/min/1.7 3m 09/16 20:49 :00 Interpretive Data: The estimated GFR was calculated using the B nathanide Dorado equation (2009) . Reference: Pediatric GFR calculator at [employer] Website. [facility] GENERAL CHEMISTRY Estimated GFR for Adults 147 mL/min/1.7 3m 09/16 20:49 :00 Interpretive Data: Changed to CKD-EPI [address] [facility] GENERAL CHEMISTRY Creatinine, standardized 0.5 mg/dL 0.7 - 1.2 09/16 20:49 :00 Interpretive Data: Qunods-nc-vcv e transgender patients on testosterone therapy should have results assessed using the male reference range. Iqfb-us-kbvde e transgender patients on hormone-modul ating therapy clinical judgment is advisedfor assessment. [facility] GENERAL CHEMISTRY Calcium 9.5 mg/dL 8.3 - 10.6 09/16 20:49 :00 [facility] GENERAL CHEMISTRY BUN 10 mg/dL 6 - 20 09/16 20:49 :00 [facility] GENERAL CHEMISTRY ALT-SGPT 209 U/L 10 - 50 09/16 20:49 :00 [facility] GENERAL CHEMISTRY Alkaline Phosphatase 122 U/L 40 - 129 09/16 20:49 :00 [facility] GENERAL CHEMISTRY Albumin 3.6 g/dL 3.4 - 5.0 09/16 20:49 :00 [facility] GENERAL CHEMISTRY AST-SGOT 53 U/L 09/16 20:49 :00 [facility] HEMATOLOGY PROFILES Absolute Nucleated RBCs 0.0 x10(9)/L 0.0 - 0.0 09/16 20:49 :00 Interpretive Data: Normal values not established in patients less than [address] [facility] HEMATOLOGY PROFILES % Nucleated RBCs 0.0 % 09/16 20:49 :00 [facility] HEMATOLOGY PROFILES % Neutrophils 94.4 % 09/16 20:49 :00 [facility] HEMATOLOGY PROFILES Abs Monocytes 0.17 x10(9)/L 0.30 - 0.90 09/16 20:49 :00 [facility] HEMATOLOGY PROFILES Abs Lymphocytes 0.19 x10(9)/L 0.90 - 2.90 09/16 20:49 :00 [facility] HEMATOLOGY PROFILES Abs Basophils 0.00 x10(9)/L 0.00 - 0.30 09/16 20:49 :00 [facility] HEMATOLOGY PROFILES Abs Eosinophils 0.00 x10(9)/L 0.05 - 0.50 09/16 20:49 :00 [facility] HEMATOLOGY PROFILES Abs Immature Granulocytes 0.11 x10(9)/L 0.00 - 0.03 09/16 20:49 :00 [facility] HEMATOLOGY PROFILES % Monocytes 2.0 % 09/16 20:49 :00 [facility] HEMATOLOGY PROFILES % Lymphocytes 2.3 % 09/16 20:49 :00 [facility] HEMATOLOGY PROFILES % Basophils 0.0 % 09/16 20:49 :00 [facility] HEMATOLOGY PROFILES % Eosinophils 0.0 % 09/16 20:49 :00 [facility] HEMATOLOGY PROFILES % Immature Granulocytes 1.30 % 0.02 - 0.42 09/16 20:49 :00 [facility] HEMATOLOGY PROFILES Absolute Granulocytes 7.91 x10(9)/L 1.70 - 7.00 09/16 20:49 :00 [facility] HEMATOLOGY PROFILES Internal Review Yes (09/16/24 2:49 PM) 09/16 20:49 :00 [facility] HEMATOLOGY PROFILES Morphology Present *NA* (09/16/24 2:49 PM) 09/16 20:49 :00 [facility] HEMATOLOGY PROFILES Aniso 1+ (10-20%) *NA* (09/16/24 2:49 PM) 09/16 20:49 :00 [facility] HEMATOLOGY PROFILES Platelet Estimate Adequate *NA* (09/16/24 2:49 PM) 09/16 20:49 :00 [facility] HEMATOLOGY PROFILES Elliptocytes (Ovalocytes) 1+ (10-25%) *NA* (09/16/24 2:49 PM) 09/16 20:49 :00 [facility] HEMATOLOGY PROFILES QA Review Agree (09/16/24 2:49 PM) 09/16 20:49 :00 [facility] HEMATOLOGY PROFILES Path Review Smear Pathologis t Review of Smear Interpreta tion: lymphs <5%. Interprete d by: Susy Barragan i, MD 09/16 20:49 :00 [facility] HEMATOLOGY PROFILES HGB 9.4 g/dL 13.5 - 17.5 09/16 20:49 :00 Interpretive Data: Teheea-np-xrq e transgender patients on testosterone therapy should have results assessed using the male reference range. Msto-pd-laiey e transgender patients on hormone-modul ating therapy clinical judgment is advisedfor assessment. [facility] HEMATOLOGY PROFILES HCT 29.4 % 38.8 - 50.0 09/16 20:49 :00 Interpretive Data: Hqrppf-xm-mfy e transgender patients on testosterone therapy should have results assessed using the male reference range. Bzhm-gd-grvay e transgender patients on hormone-modul ating therapy clinical judgment is advisedfor assessment. [facility] HEMATOLOGY PROFILES WBC 8.38 x10(9)/L 3.50 - 10.50 09/16 20:49 :00 [facility] HEMATOLOGY PROFILES RBC 2.88 x10(12)/L 4.32 - 5.72 09/16 20:49 :00 [facility] HEMATOLOGY PROFILES MCV 102.1 fL 81.2 - 95.1 09/16 20:49 :00 [facility] HEMATOLOGY PROFILES RDW CV 18.1 % 11.8 - 15.6 09/16 20:49 :00 [facility] HEMATOLOGY PROFILES RDW SD 67.2 fL 35.1 - 43.9 09/16 20:49 :00 [facility] HEMATOLOGY PROFILES MCH 32.6 pg 26.0 - 33.0 09/16 20:49 :00 [facility] HEMATOLOGY PROFILES MCHC 32.0 g/dL 32.0 - 36.0 09/16 20:49 :00 [facility] HEMATOLOGY PROFILES PLT 230 x10(9)/L 150 - 450 09/16 20:49 :00 [facility] HEMATOLOGY PROFILES MPV 10.4 8.0 - 12.0 09/16 20:49 :00 [facility] OTHER HEMATOLOGY TESTS Reticulocyte Percent 1.9 % 1.1 - 2.7 09/16 20:49 :00 [facility] OTHER HEMATOLOGY TESTS Reticulocyte Count 0.055 0.055 - 0.141 09/16 20:49 :00 [facility] OTHER HEMATOLOGY TESTS Reticulocyte Hemoglobin 36.4 pg 29.0 - 35.3 09/16 20:49 :00 [facility] OTHER HEMATOLOGY TESTS Immature Reticulocyte Fraction 5.5 % 2.3 - 15.9 09/16 20:49 :00 [facility] THERAPEUTI C DRUGS Methotrexate Lvl <0.04 umol/L 09/16 20:49 :00 [facility] FLOW CYTOMETRY Leukemia/Lym phoma Result See Report 33 (09/16/24 2:03 PM) 09/16 20:03 :00 Interpretive Data: See report under Flow Cytometry within Lab Extended tab. [facility] FLOW CYTOMETRY Specimen Source Bone Marrow Aspirate 09/16 20:03 :00 [facility] FLOW CYTOMETRY Flow Cytometry Compliance Comment See Comment 32 (09/16/24 2:03 PM) 09/16 20:03 :00 Interpretive Data: Analyte Specific Reagent: This test was developed and its performance characteristi cs determined by the Clinical Flow Cytometry Laboratory, [facility], [facility]. It has not been cleared or approved [...] to perform high complexity clinical laboratory testing. [facility] REFERENCE LABS Hutson RL Test AP Result duplicate 09/16 20:03 :00 [facility] REFERENCE LABS Result BALPF-HUTSON See Comment 09/16 20:03 :00 [...] Normal <10.0 t(9;22) ABL1/BCR fusion Normal <4.0 -9p21(JIIR4Vd 1,D9Z1x2) Normal <12.0 -9p21x2(CDKN2 Ax0,D9Z1x2) Normal <5.0 -17p13.1(TP53 x1,Z95K4y4) Normal <15.0 -17(TP53,D17Z 1)x1 Normal <10.0 t(12;21) ETV6/RUNX1 fusion Normal <4.0 +21q22(RUNX1x 3) Normal <7.0 14q32(IGH sep) Normal <15.0 Xp22.33/Yp11. 32(3'SJSA7dxn ention,5 Normal <10.0 'loss) Xp22.33/Yp11. 32(3'Z2QN3wms s,5'rete Normal <5.0 ntion) t(1;19) PBX1/TCF3 fusion Normal <4.0 gelnna(19)t(1;19 ) PBX1/TCF3 fusion Normal <4.0 +4CEN(D4Z1x3) Normal <20.0 +10CEN(D10Z1x 3) Normal <7.0 +17CEN(D17Z1x 3) Normal <7.0 8q24.1(MYC sep) Normal <10.0 1q25(ABL2 sep) Normal <10.0 5q32(PDGFRB sep) Normal <15.0 9p24.1(JAK2 sep) Normal <10.0 9q34(ABL1 sep) Normal <15.0 -7p12.2(IKZF1 dimx1,ACDN0p8 ,Cep7x2) Normal <7.0 ------ Result Interphase FISH [...] Method: Manual Probe vendors include: LDT = [facility] Developed AM = [employer] ([place], [place]) C = [employer] ([place], [place]) AT = [employer] ([place], [place]) Additional Information See Comment Previous Studies DATE SPECIMEN RESULT 04/04/2024 Marrow No clonal abnormality was apparent 04/04/2024 Marrow B-ALL Panel within normal limits ------- A portion of the testing process was performed at [facility] Laboratories site [id number]. Disclaimer See Comment Applicable to Analyte Specific Reagent (ASR) and Laboratory Developed Tests (LDT). This test was developed and its performance characteristi cs determined by [facility] in a manner consistent with CLIA requirements. It has not been cleared or approved by the U.S. Food and Drug Administratio n. This FISH test does not rule out other chromosome abnormalities . Released By Blanca Worthington D.O. Test Performed by: [place] [address] Director Of Customer Acquisition: Trista West Ph.D.; CLIA# [id number] [facility] REFERENCE LABS Specimen BALPF-ABILENE Bone marrow 09/16 20:03 :00 [facility] REFERENCE LABS Reason for Referral BALPF-ABILENE History of BALL 09/16 20:03 :00 [facility] REFERENCE LABS Reason for Referral CHRBM History of B-ALL 09/16 17:45 :00 Result Comment: Collection date/time has been modified to: 11:45:00. Previous collection date/time: 14:11:00. [facility] REFERENCE LABS Chromosomes, Hematologic, BM See Comment [...] of the testing process was performed at [facility] Socitive site [id number]. Released By Gardenia Ohara M.D. Test Performed by: [facility] [place] [address] Director Of Customer Acquisition: Trista West Ph.D.; CLIA# [id number] [facility] Bone Marrow Report Bone Marrow Report AMENDED HEMATOPATH OLOGY REPORT Patient Name: EVELINA REGALADO Specimen Number: [id number] Patient Collection Date: 09/16/2024 Submitting Physician: Kyaw Kirkland MD Signout Date: 10/02/2024 Other Physician( s): MD Aleisha Patel MD Clinical Informatio n B-ALL s/p completion of treatment with 8 cycles of HyperCVAD+ R ======== FINAL DIAGNOSIS (): 1. PERIPHERAL BLOOD, WRIGHTS STAINED FILM: Macrocytic [...] ======== Amendments Amended: 09/23/2024 by Pamela Infante, JOELLE Reason: Additional Test Results Amendment for inclusion [...] studies and 4 EDTA tubes. (Roney Mondragon, ) PABLO Microscopi c Descriptio n Peripheral Blood: [...] biopsy and clot sections are available for examinatio n. The marrow shows variable cellularit y [...] e controls are performed on block 3 [facility] for TdT, CD10, PAX5, CD79a, CD20. PAX5 [...] record. Cytogeneti cs: Chromosome analysis (performed at [facility], [address] [place] [address]) is performed on the bone marrow aspirate. Analysis identified a normal male karyotype. No clonal abnormalit y was apparent. 46,XY[20] Please see complete report in patient's electronic medical record. Molecular Genetics: B-ALL FISH analysis (performed at [facility], [address] [place] [address], [place] [address]) results are within normal limits for the B-ALL FISH panel as well as probes for the Ph-like B-ALL panel. In addition, no deletion of IKZF1 was observed. Interphase FISH is normal for all loci studied. ClonoSEQ B-cell tracking (performed at [facility] [address] [place] [address], [facility] [address], [place] [address]) is performed on the bone marrow aspirate. [...] report (if any) were determined by the [facility] Department of Pathology. They have not [...] [id number].PDF can be viewed in source system [facility] Flow Cytometry Report. Flow Cytometry Report. CLINICAL FLOW CYTOMETRY DEPT OF PATHOLOGY [place] [address] Phone: [phone] Patient: EVELINA REGALADO Collection Date: 09/16/2024 Service: Hematology Oncology Location: Oncology Facility: [facility] [id number] Attending Physician: Heike Barrientos MD : 2000 (Age: 24) Other Physician( s): {None Given} Sex: M Race: White Other Number(s): [id number] [phone] Flow Cytometry Immunophen otypic Report FINAL [...] Please contact the signing pathologis t at [phone] if you have further questions regarding these analyses. [1] Jamie, Best Practice and Research Clinical Haematolog y [...] by the Clinical Flow Cytometry Laboratory , [facility], [facility]. It has not been cleared or approved [...] high complexity clinical laboratory testing. [place] [address] 09/16 14:03 :00 Missing Attachment [id number].PDF can be viewed in source system [facility] CT Biopsy CT Biopsy CT Scan/CT Angio Accession # Exam Date/Time Procedure Ordering Provider [id number] 09/16/2024 14:[address] [address] Biopsy Jasminshira BRISCOE, Adrián Edmondson Reason For Exam (CT Biopsy) BMBX Report [...] suite and placed in the prone position. [place] timeout protocol was performed. The patient was [...] Report* * * Electronic ally Signed by: Charan BRISCOE, Al Williamson Signed on: 09/16/24 16:35 09/16 13:42 :40 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 COAGULATIO N INR 1.0 0.9 - 1.2 [...] GH, Nannette EA, Jatinder M, Halle DD, Schu n darby HJ; [employer] Antithromboti c Therapy and Prevention of Thrombosis Panel. Executive summary: Antithromboti c Therapy and Prevention of Thrombosis, 9th Ed: [employer] Evidence-Base d Clinical Practice Guidelines. Chest. 2012 Oct; 141(2 Suppl):7S-47S . doi: 10.1378/chest .1412S3 [facility] COAGULATIO N PTT 27.4 s 25.1 - [...] the Clinical Pathology Service for additional questions. [facility] URINALYSIS UA Epithelial Cells None Seen /lpf 09/15 10:00 :00 [facility] URINALYSIS RBC None Seen /hpf 0 - 2 09/15 10:00 :00 [facility] URINALYSIS WBC 0-3 /hpf 0 - 3 09/15 10:00 :00 [facility] URINALYSIS UA KETONES Negative mg/dL 09/15 10:00 :00 [facility] URINALYSIS UA GLUCOSE Negative mg/dL 09/15 10:00 :00 [facility] URINALYSIS UA UROBILINOGEN Negative Yumi unit/dL 0.2 - 1.0 09/15 10:00 :00 [facility] URINALYSIS BILIRUBIN Negative (09/15/24 4:00 AM) 09/15 10:00 :00 [facility] URINALYSIS UA PH 9 *NA* (09/15/24 4:00 AM) 4.5 - 8.0 09/15 10:00 :00 [facility] URINALYSIS UA PROTEIN Negative mg/dL 09/15 10:00 :00 [facility] URINALYSIS UA NITRITE Negative (09/15/24 4:00 AM) 09/15 10:00 :00 [facility] URINALYSIS UA LEUKOCYTES Negative (09/15/24 4:00 AM) 09/15 10:00 :00 [facility] URINALYSIS UA BLOOD Negative 16 (09/15/24 4:00 AM) 09/15 10:00 :00 Result Comment: A hemoglobin concentration of 0.015-0.062 mg/dL is approximately equivalent to 5 -20 intact red blood cells per microliter. [facility] URINALYSIS CLARITY Clear (09/15/24 4:00 AM) 09/15 10:00 :00 [facility] URINALYSIS SPECIFIC GRAVITY 1.005 1.006 - 1.030 09/15 10:00 :00 [facility] URINALYSIS COLOR Straw (09/15/24 4:00 AM) 09/15 10:00 :00 [facility] GENERAL CHEMISTRY Total Protein 4.6 g/dL 5.7 - 8.2 09/15 09:39 :00 [facility] GENERAL CHEMISTRY Creatinine, standardized 0.6 mg/dL 0.7 - 1.2 09/15 09:39 :00 Interpretive Data: Dgddqi-wj-jwj e transgender patients on testosterone therapy should have results assessed using the male reference range. Piqc-ug-cjpmv e transgender patients on hormone-modul ating therapy clinical judgment is advisedfor assessment. [facility] GENERAL CHEMISTRY Anion gap Unable to Calculate mmol/L 0 - 20 09/15 09:39 :00 Result Comment: Not a number; no computation performed (Invalid syntax) [facility] GENERAL CHEMISTRY T Bili 0.25 mg/dL 0.30 - 1.20 09/15 09:39 :00 [facility] GENERAL CHEMISTRY CO2 >40 mmol/L 20 - 09/15 09:39 :00 Result Comment: Critical Result(s) Called at: 05:10:07 09/15/2024. Called to and read back by:Morena Souza RN. AM [facility] GENERAL CHEMISTRY Potassium 3.0 mmol/L 3.5 - 5.1 09/15 09:39 :00 [facility] GENERAL CHEMISTRY Chloride 92 mmol/L 98 - 107 09/15 09:39 :00 [facility] GENERAL CHEMISTRY Sodium 139 mmol/L 136 - 145 09/15 09:39 :00 [facility] GENERAL CHEMISTRY Calcium 7.3 mg/dL 8.3 - 10.6 09/15 09:39 :00 [facility] GENERAL CHEMISTRY Glucose Lvl 89 mg/dL 70 - 139 09/15 09:39 :00 [facility] GENERAL CHEMISTRY BUN 7 mg/dL 6 - 20 09/15 09:39 :00 [facility] GENERAL CHEMISTRY Alkaline Phosphatase 103 U/L 40 - 129 09/15 09:39 :00 [facility] GENERAL CHEMISTRY ALT-SGPT 243 U/L 10 - 50 09/15 09:39 :00 [facility] GENERAL CHEMISTRY AST-SGOT 110 U/L 09/15 09:39 :00 [facility] GENERAL CHEMISTRY Albumin 2.8 g/dL 3.4 - 5.0 09/15 09:39 :00 [facility] GENERAL CHEMISTRY Estimated GFR for peds Not Calculated mL/min/1.7 3m 09/15 09:39 :00 Interpretive Data: The estimated GFR was calculated using the B lucero Dorado equation (2009) . Reference: Pediatric GFR calculator at [employer] Website. [facility] GENERAL CHEMISTRY Estimated GFR for Adults 141 mL/min/1.7 3m 09/15 09:39 :00 Interpretive Data: Changed to CKD-EPI [address] [facility] GENERAL CHEMISTRY Magnesium 1.47 mg/dL 1.60 - 2.60 09/15 09:39 :00 [facility] GENERAL CHEMISTRY Phosphorus 3.0 mg/dL 2.4 - 5.1 09/15 09:39 :00 [facility] HEMATOLOGY PROFILES HGB 7.6 g/dL 13.5 - 17.5 09/15 09:39 :00 Interpretive Data: Kkncst-nm-fbj e transgender patients on testosterone therapy should have results assessed using the male reference range. Vznq-ps-ekqms e transgender patients on hormone-modul ating therapy clinical judgment is advisedfor assessment. [facility] HEMATOLOGY PROFILES HCT 24.5 % 38.8 - 50.0 09/15 09:39 :00 Interpretive Data: Onyovq-ry-bsn e transgender patients on testosterone therapy should have results assessed using the male reference range. Wgph-dj-eoqvl e transgender patients on hormone-modul ating therapy clinical judgment is advisedfor assessment. [facility] HEMATOLOGY PROFILES WBC 5.85 x10(9)/L 3.50 - 10.50 09/15 09:39 :00 [facility] HEMATOLOGY PROFILES RBC 2.34 x10(12)/L 4.32 - 5.72 09/15 09:39 :00 [facility] HEMATOLOGY PROFILES RDW SD 74.3 fL 35.1 - 43.9 09/15 09:39 :00 [facility] HEMATOLOGY PROFILES MCHC 31.0 g/dL 32.0 - 36.0 09/15 09:39 :00 [facility] HEMATOLOGY PROFILES RDW CV 19.6 % 11.8 - 15.6 09/15 09:39 :00 [facility] HEMATOLOGY PROFILES MCV 104.7 fL 81.2 - 95.1 09/15 09:39 :00 [facility] HEMATOLOGY PROFILES MCH 32.5 pg 26.0 - 33.0 09/15 09:39 :00 [facility] HEMATOLOGY PROFILES PLT 168 x10(9)/L 150 - 450 09/15 09:39 :00 [facility] HEMATOLOGY PROFILES MPV 10.7 8.0 - 12.0 09/15 09:39 :00 [facility] HEMATOLOGY PROFILES Absolute Granulocytes 4.42 x10(9)/L 1.70 - 7.00 09/15 09:39 :00 [facility] HEMATOLOGY PROFILES % Basophils 0.3 % 09/15 09:39 :00 [facility] HEMATOLOGY PROFILES % Immature Granulocytes 0.90 % 0.02 - 0.42 09/15 09:39 :00 [facility] HEMATOLOGY PROFILES % Monocytes 14.2 % 09/15 09:39 :00 [facility] HEMATOLOGY PROFILES % Eosinophils 2.7 % 09/15 09:39 :00 [facility] HEMATOLOGY PROFILES Abs Basophils 0.02 x10(9)/L 0.00 - 0.30 09/15 09:39 :00 [facility] HEMATOLOGY PROFILES Abs Immature Granulocytes 0.05 x10(9)/L 0.00 - 0.03 09/15 09:39 :00 [facility] HEMATOLOGY PROFILES Abs Monocytes 0.83 x10(9)/L 0.30 - 0.90 09/15 09:39 :00 [facility] HEMATOLOGY PROFILES Abs Eosinophils 0.16 x10(9)/L 0.05 - 0.50 09/15 09:39 :00 [facility] HEMATOLOGY PROFILES Abs Lymphocytes 0.37 x10(9)/L 0.90 - 2.90 09/15 09:39 :00 [facility] HEMATOLOGY PROFILES % Lymphocytes 6.3 % 09/15 09:39 :00 [facility] HEMATOLOGY PROFILES Absolute Nucleated RBCs 0.0 x10(9)/L 0.0 - 0.0 09/15 09:39 :00 Interpretive Data: Normal values not established in patients less than [address] [facility] HEMATOLOGY PROFILES % Neutrophils 75.6 % 09/15 09:39 :00 [facility] HEMATOLOGY PROFILES % Nucleated RBCs 0.0 % 09/15 09:39 :00 [facility] THERAPEUTI C DRUGS Methotrexate Lvl 0.08 umol/L 09/15 09:39 :00 [facility] URINALYSIS RBC None Seen /hpf 0 - 2 09/15 02:58 :00 [facility] URINALYSIS UA Epithelial Cells None Seen /lpf 09/15 02:58 :00 [facility] URINALYSIS WBC 0-3 /hpf 0 - 3 09/15 02:58 :00 [facility] URINALYSIS COLOR Colorless (09/14/24 8:58 PM) 09/15 02:58 :00 [facility] URINALYSIS CLARITY Clear (09/14/24 8:58 PM) 09/15 02:58 :00 [facility] URINALYSIS SPECIFIC GRAVITY 1.003 1.006 - 1.030 09/15 02:58 :00 [facility] URINALYSIS UA UROBILINOGEN Negative Yumi unit/dL 0.2 - 1.0 09/15 02:58 :00 [facility] URINALYSIS BILIRUBIN Negative (09/14/24 8:58 PM) 09/15 02:58 :00 [facility] URINALYSIS UA KETONES Negative mg/dL 09/15 02:58 :00 [facility] URINALYSIS UA GLUCOSE Negative mg/dL 09/15 02:58 :00 [facility] URINALYSIS UA PH 9 *NA* (09/14/24 8:58 PM) 4.5 - 8.0 09/15 02:58 :00 [facility] URINALYSIS UA PROTEIN Negative mg/dL 09/15 02:58 :00 [facility] URINALYSIS UA NITRITE Negative (09/14/24 8:58 PM) 09/15 02:58 :00 [facility] URINALYSIS UA LEUKOCYTES Negative (09/14/24 8:58 PM) 09/15 02:58 :00 [facility] URINALYSIS UA BLOOD Negative 17 (09/14/24 8:58 PM) 09/15 02:58 :00 Result Comment: A hemoglobin concentration of 0.015-0.062 mg/dL is approximately equivalent to 5 -20 intact red blood cells per microliter. [facility] THERAPEUTI C DRUGS Methotrexate Lvl 0.10 umol/L 09/15 02:42 :00 [facility] URINALYSIS RBC None Seen /hpf 0 - 2 09/14 19:47 :00 [facility] URINALYSIS WBC None Seen /hpf 0 - 3 09/14 19:47 :00 [facility] URINALYSIS UA Epithelial Cells None Seen /lpf 09/14 19:47 :00 [facility] URINALYSIS UA UROBILINOGEN Negative Yumi unit/dL 0.2 - 1.0 09/14 19:47 :00 [facility] URINALYSIS UA BLOOD Negative 18 (09/14/24 1:47 PM) 09/14 19:47 :00 Result Comment: A hemoglobin concentration of 0.015-0.062 mg/dL is approximately equivalent to 5 -20 intact red blood cells per microliter. [facility] URINALYSIS UA PROTEIN Negative mg/dL 09/14 19:47 :00 [facility] URINALYSIS UA NITRITE Negative (09/14/24 1:47 PM) 09/14 19:47 :00 [facility] URINALYSIS UA LEUKOCYTES Negative (09/14/24 1:47 PM) 09/14 19:47 :00 [facility] URINALYSIS COLOR Straw (09/14/24 1:47 PM) 09/14 19:47 :00 [facility] URINALYSIS CLARITY Clear (09/14/24 1:47 PM) 09/14 19:47 :00 [facility] URINALYSIS SPECIFIC GRAVITY 1.004 1.006 - 1.030 09/14 19:47 :00 [facility] URINALYSIS BILIRUBIN Negative (09/14/24 1:47 PM) 09/14 19:47 :00 [facility] URINALYSIS UA KETONES Negative mg/dL 09/14 19:47 :00 [facility] URINALYSIS UA GLUCOSE Negative mg/dL 09/14 19:47 :00 [facility] URINALYSIS UA PH 9 *NA* (09/14/24 1:47 PM) 4.5 - 8.0 09/14 19:47 :00 [facility] HEMATOLOGY PROFILES Abs Basophils 0.01 x10(9)/L 0.00 - 0.30 09/14 14:27 :00 [facility] HEMATOLOGY PROFILES Abs Immature Granulocytes 0.10 x10(9)/L 0.00 - 0.03 09/14 14:27 :00 [facility] HEMATOLOGY PROFILES % Immature Granulocytes 0.90 % 0.02 - 0.42 09/14 14:27 :00 [facility] HEMATOLOGY PROFILES Absolute Granulocytes 8.18 x10(9)/L 1.70 - 7.00 09/14 14:27 :00 [facility] HEMATOLOGY PROFILES Abs Eosinophils 0.00 x10(9)/L 0.05 - 0.50 09/14 14:27 :00 [facility] HEMATOLOGY PROFILES Abs Lymphocytes 0.51 x10(9)/L 0.90 - 2.90 09/14 14:27 :00 [facility] HEMATOLOGY PROFILES Abs Monocytes 1.76 x10(9)/L 0.30 - 0.90 09/14 14:27 :00 [facility] HEMATOLOGY PROFILES % Neutrophils 77.5 % 09/14 14:27 :00 [facility] HEMATOLOGY PROFILES % Eosinophils 0.0 % 09/14 14:27 :00 [facility] HEMATOLOGY PROFILES % Basophils 0.1 % 09/14 14:27 :00 [facility] HEMATOLOGY PROFILES % Lymphocytes 4.8 % 09/14 14:27 :00 [facility] HEMATOLOGY PROFILES % Monocytes 16.7 % 09/14 14:27 :00 [facility] HEMATOLOGY PROFILES Schistocytes 1+ (Rare-3%) *NA* (09/14/24 8:27 AM) 09/14 14:27 :00 [facility] HEMATOLOGY PROFILES Stomatocytes 1+ (10-25%) *NA* (09/14/24 8:27 AM) 09/14 14:27 :00 [facility] HEMATOLOGY PROFILES Poly 1+ (2-10%) *NA* (09/14/24 8:27 AM) 09/14 14:27 :00 [facility] HEMATOLOGY PROFILES Macro 1+ (25-50%) *NA* (09/14/24 8:27 AM) 09/14 14:27 :00 [facility] HEMATOLOGY PROFILES Pappenheimer bodies Present *NA* (09/14/24 8:27 AM) 09/14 14:27 :00 [facility] HEMATOLOGY PROFILES Aniso 1+ (10-20%) *NA* (09/14/24 8:27 AM) 09/14 14:27 :00 [facility] HEMATOLOGY PROFILES Morphology Present *NA* (09/14/24 8:27 AM) 09/14 14:27 :00 [facility] HEMATOLOGY PROFILES Platelet Estimate Adequate *NA* (09/14/24 8:27 AM) 09/14 14:27 :00 [facility] HEMATOLOGY PROFILES Elliptocytes (Ovalocytes) 1+ (10-25%) *NA* (09/14/24 8:27 AM) 09/14 14:27 :00 [facility] HEMATOLOGY PROFILES Hypochromasi a 2+ (50-75%) *NA* (09/14/24 8:27 AM) 09/14 14:27 :00 [facility] THERAPEUTI C DRUGS Methotrexate Lvl 0.88 umol/L 09/14 13:06 :00 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 URINALYSIS UA PROTEIN Negative mg/dL 09/14 10:19 :00 [facility] URINALYSIS UA LEUKOCYTES Negative (09/14/24 4:19 AM) 09/14 10:19 :00 [facility] URINALYSIS UA BLOOD Negative 19 (09/14/24 4:19 AM) 09/14 10:19 :00 Result Comment: A hemoglobin concentration of 0.015-0.062 mg/dL is approximately equivalent to 5 -20 intact red blood cells per microliter. [facility] URINALYSIS UA KETONES Negative mg/dL 09/14 10:19 :00 [facility] URINALYSIS UA UROBILINOGEN Negative Yumi unit/dL 0.2 - 1.0 09/14 10:19 :00 [facility] URINALYSIS BILIRUBIN Negative (09/14/24 4:19 AM) 09/14 10:19 :00 [facility] URINALYSIS UA PH 9 *NA* (09/14/24 4:19 AM) 4.5 - 8.0 09/14 10:19 :00 [facility] [facility] URINALYSIS SPECIFIC GRAVITY 1.006 1.006 - 1.030 09/14 10:19 :00 [facility] URINALYSIS UA GLUCOSE Negative mg/dL 09/14 10:19 :00 [facility] URINALYSIS COLOR Straw (09/14/24 4:19 AM) 09/14 10:19 :00 [facility] URINALYSIS CLARITY Clear (09/14/24 4:19 AM) 09/14 10:19 :00 [facility] URINALYSIS WBC 0-3 /hpf 0 - 3 09/14 10:19 :00 [facility] URINALYSIS UA Epithelial Cells None Seen /lpf 09/14 10:19 :00 [facility] URINALYSIS RBC None Seen /hpf 0 - 2 09/14 10:19 :00 [facility] GENERAL CHEMISTRY Magnesium 1.51 mg/dL 1.60 - 2.60 09/14 10:15 :00 [facility] GENERAL CHEMISTRY Phosphorus 2.5 mg/dL 2.4 - 5.1 09/14 10:15 :00 [facility] HEMATOLOGY PROFILES Abs Lymphocytes Manual 0.32 x10(9)/L 0.90 - 2.90 09/14 10:15 :00 [facility] HEMATOLOGY PROFILES Absolute Neutrophils Manual 7.29 x10(9)/L 1.70 - 7.00 09/14 10:15 :00 [facility] HEMATOLOGY PROFILES Abs Monocytes Manual 0.16 x10(9)/L 0.30 - 0.90 09/14 10:15 :00 [facility] HEMATOLOGY PROFILES Neuts Manual 93.8 % 09/14 10:15 :00 [facility] HEMATOLOGY PROFILES Lymphocytes Manual 4.1 % 09/14 10:15 :00 [facility] HEMATOLOGY PROFILES Monocytes Manual 2.1 % 09/14 10:15 :00 [facility] HEMATOLOGY PROFILES Morphology Present *NA* (09/14/24 4:15 AM) 09/14 10:15 :00 [facility] HEMATOLOGY PROFILES Platelet Estimate Adequate *NA* (09/14/24 4:15 AM) 09/14 10:15 :00 [facility] HEMATOLOGY PROFILES Aniso 1+ (10-20%) *NA* (09/14/24 4:15 AM) 09/14 10:15 :00 [facility] GENERAL CHEMISTRY Magnesium 1.86 mg/dL 1.60 - 2.60 09/13 11:17 :00 [facility] GENERAL CHEMISTRY Phosphorus 2.8 mg/dL 2.4 - 5.1 09/13 11:17 :00 [facility] XR Panorex XR Panorex XR General Diagnostic Accession # Exam Date/Time Procedure Ordering Provider [id number] 09/13/2024 08:14 [employer]ED [employer] XR Panorex Jarad Kelley MD Reason For [...] Signed on: 09/13/24 09:30 09/13 08:04 :52 [facility] URINALYSIS Urine Collection Method Clean Catch UR (09/12/24 5:31 PM) 09/12 23:31 :00 [facility] URINALYSIS UA Hyaline Casts 0-3 /lpf 0 - 3 09/12 23:31 :00 [facility] URINALYSIS UA Mucous Present *ABNORMAL* (09/12/24 2:55 PM) 09/12 20:55 :00 [facility] GENERAL CHEMISTRY Glucose Lvl 106 mg/dL 70 - 139 09/12 15:07 :00 [facility] GENERAL CHEMISTRY Chloride 99 mmol/L 98 - 107 09/12 15:07 :00 [facility] GENERAL CHEMISTRY Calcium 9.7 mg/dL 8.3 - 10.6 09/12 15:07 :00 [facility] GENERAL CHEMISTRY Sodium 136 mmol/L 136 - 145 09/12 15:07 :00 [facility] GENERAL CHEMISTRY Potassium 4.2 mmol/L 3.5 - 5.1 09/12 15:07 :00 [facility] GENERAL CHEMISTRY Estimated GFR for Adults 132 mL/min/1.7 3m 09/12 15:07 :00 Interpretive Data: Changed to CKD-EPI 2020 on 2020. [facility] GENERAL CHEMISTRY Estimated GFR for peds Not Calculated mL/min/1.7 3m 09/12 15:07 :00 Interpretive Data: The estimated GFR was calculated using the B lucero Dorado equation (2009) . Reference: Pediatric GFR calculator at [employer] Website. [facility] GENERAL CHEMISTRY Albumin 4.5 g/dL 3.4 - 5.0 09/12 15:07 :00 [facility] GENERAL CHEMISTRY T Bili 0.50 mg/dL 0.30 - 1.20 09/12 15:07 :00 [facility] GENERAL CHEMISTRY Alkaline Phosphatase 126 U/L 40 - 129 09/12 15:07 :00 [facility] GENERAL CHEMISTRY Total Protein 7.3 g/dL 5.7 - 8.2 09/12 15:07 :00 [facility] GENERAL CHEMISTRY CO2 26 mmol/L 20 - 31 09/12 15:07 :00 [facility] GENERAL CHEMISTRY AST-SGOT 68 U/L 09/12 15:07 :00 [facility] GENERAL CHEMISTRY Anion gap 15 mmol/L 0 - 20 09/12 15:07 :00 [facility] GENERAL CHEMISTRY ALT-SGPT 71 U/L 10 - 50 09/12 15:07 :00 [facility] GENERAL CHEMISTRY Creatinine, standardized 0.7 mg/dL 0.7 - 1.2 09/12 15:07 :00 Interpretive Data: Jlscye-tm-zcy e transgender patients on testosterone therapy should have results assessed using the male reference range. Dvwp-qc-yrpwx e transgender patients on hormone-modul ating therapy clinical judgment is advisedfor assessment. [facility] GENERAL CHEMISTRY BUN 21 mg/dL 6 - 20 09/12 15:07 :00 [facility] HEMATOLOGY PROFILES Aniso 2+ (20-50%) *NA* (09/12/24 9:07 AM) 09/12 15:07 :00 [facility] HEMATOLOGY PROFILES Abs Lymphocytes Manual 1.32 x10(9)/L 0.90 - 2.90 09/12 15:07 :00 [facility] HEMATOLOGY PROFILES Elliptocytes (Ovalocytes) 1+ (10-25%) *NA* (09/12/24 9:07 AM) 09/12 15:07 :00 [facility] HEMATOLOGY PROFILES Promyelos hp 1.0 % 09/12 15:07 :00 [facility] HEMATOLOGY PROFILES Absolute Neutrophils Manual 9.52 x10(9)/L 1.70 - 7.00 09/12 15:07 :00 [facility] HEMATOLOGY PROFILES Macro 1+ (25-50%) *NA* (09/12/24 9:07 AM) 09/12 15:07 :00 [facility] HEMATOLOGY PROFILES Teardrop 1+ (3-6%) *NA* (09/12/24 9:07 AM) 09/12 15:07 :00 [facility] HEMATOLOGY PROFILES Neuts Manual 72.0 % 09/12 15:07 :00 [facility] HEMATOLOGY PROFILES Abs Monocytes Manual 2.25 x10(9)/L 0.30 - 0.90 09/12 15:07 :00 [facility] HEMATOLOGY PROFILES Morphology Present *NA* (09/12/24 9:07 AM) 09/12 15:07 :00 [facility] HEMATOLOGY PROFILES Platelet Estimate Adequate *NA* (09/12/24 9:07 AM) 09/12 15:07 :00 [facility] HEMATOLOGY PROFILES Abs Promyelos 0.13 x10(9)/L 0.00 - 0.11 09/12 15:07 :00 [facility] HEMATOLOGY PROFILES Lymphocytes Manual 10.0 % 09/12 15:07 :00 [facility] HEMATOLOGY PROFILES Monocytes Manual 17.0 % 09/12 15:07 :00 [facility] HEMATOLOGY PROFILES Internal Review Yes (09/12/24 9:07 AM) 09/12 15:07 :00 [facility] HEMATOLOGY PROFILES MCH 33.5 pg 26.0 - 33.0 09/12 15:07 :00 [facility] HEMATOLOGY PROFILES MCHC 32.5 g/dL 32.0 - 36.0 09/12 15:07 :00 [facility] HEMATOLOGY PROFILES PLT 296 x10(9)/L 150 - 450 09/12 15:07 :00 [facility] HEMATOLOGY PROFILES RDW CV 20.0 % 11.8 - 15.6 09/12 15:07 :00 [facility] HEMATOLOGY PROFILES RDW SD 73.4 fL 35.1 - 43.9 09/12 15:07 :00 [facility] HEMATOLOGY PROFILES WBC 13.22 x10(9)/L 3.50 - 10.50 09/12 15:07 :00 [facility] HEMATOLOGY PROFILES RBC 3.28 x10(12)/L 4.32 - 5.72 09/12 15:07 :00 [facility] HEMATOLOGY PROFILES MPV 10.6 8.0 - 12.0 09/12 15:07 :00 [facility] HEMATOLOGY PROFILES MCV 103.0 fL 81.2 - 95.1 09/12 15:07 :00 [facility] HEMATOLOGY PROFILES HGB 11.0 g/dL 13.5 - 17.5 09/12 15:07 :00 Interpretive Data: Krusec-uj-twq e transgender patients on testosterone therapy should have results assessed using the male reference range. Ongf-ae-dfiiq e transgender patients on hormone-modul ating therapy clinical judgment is advisedfor assessment. [facility] HEMATOLOGY PROFILES HCT 33.8 % 38.8 - 50.0 09/12 15:07 :00 Interpretive Data: Nojtxj-gw-lzv e transgender patients on testosterone therapy should have results assessed using the male reference range. Rrme-sr-seesn e transgender patients on hormone-modul ating therapy clinical judgment is advisedfor assessment. [facility] HEMATOLOGY PROFILES Path Review Smear Pathologis t Review of Smear Interpreta tion: Agrees w/ abs. monocytosi s >#1.5. Interprete d by: Evelina Escalante M.D. 09/12 15:07 :00 [facility] HEMATOLOGY PROFILES QA Review Agree (09/12/24 9:07 AM) 09/12 15:07 :00 [facility] XR Chest Portable XR Chest Portable XR General Diagnostic Accession # Exam Date/Time Procedure Ordering Provider [id number] 09/12/2024 13:15 [employer]ED [employer] XR Chest Portable Jarad Kelley MD Reason [...] Signed on: 09/12/24 14:10 09/12 12:18 :57 [facility] BODY FLUIDS/CSF CSF, Protein 13 mg/dL 15 - 45 08/23 20:20 :00 [facility] BODY FLUIDS/CSF CSF, Glucose 79 mg/dL 40 - 70 08/23 20:20 :00 [facility] BODY FLUIDS/CSF CSF Cutoff Values See [...] would require invasive sampling of normal people. [facility] BODY FLUIDS/CSF CSF, Spec Appear Clear (08/23/24 2:20 PM) 08/23 20:20 :00 [facility] BODY FLUIDS/CSF CSF, Color Colorless (08/23/24 2:20 PM) 08/23 20:20 :00 [facility] BODY FLUIDS/CSF CSF, WBC 2 /mcL 08/23 20:20 :00 Interpretive Data: Variation from manual counting may exceed 50% and approach 15-20% using automated method. Pleocytosis in Adults (increased WBC count) may be graded: Mild: 5-50 WBC/uL Moderate: 51-200 WBC/uL Severe: > 200 WBC/uL CSF may have > 60% neutrophils in high-risk neonates without meningitis [facility] BODY FLUIDS/CSF CSF, RBC 2 /mcL 08/23 20:20 :00 Interpretive Data: Variation from manual counting may exceed 50% and approach 15-20% using automated method. [facility] BODY FLUIDS/CSF Other Cells % CSF 5.0 % 08/23 20:20 :00 [facility] BODY FLUIDS/CSF CSF Cell Count-Neuts % 0 % 08/23 20:20 :00 [facility] BODY FLUIDS/CSF Monos/Macros /Histios % CSF 65.0 % 08/23 20:20 :00 [facility] BODY FLUIDS/CSF Lymph % CSF 30.0 % 08/23 20:20 :00 [facility] BODY FLUIDS/CSF CSF, Pathologist Review Pathologis t Review of CSF Interpreta tion: Agree. Others are ventricula r lining cells. Interprete d by: Evelina Escalante M.D. 08/23 20:20 :00 [facility] Cytology Non-HUMAN RESOURCES COORDINATOR Report Cytology Non-HUMAN RESOURCES COORDINATOR Report CYTOLOGY MEDICAL REPORT Patient Name: EVELINA REGALADO Specimen Number: [id number] Patient Collection Date: 08/23/2024 Submitting Physician: Heike Barrientos MD Signout Date: 08/26/2024 Other Physician( s): Aleisha Gordon MD ======== FINAL DIAGNOSIS CEREBROSPI NAL FLUID: Negative for leukemia. Please see previous material ([id number], [id number], [id number], [id number]) . Please see comment. Diagnosis Comment Microscopi [...] report (if any) were determined by the [facility] Department of Pathology. They have not [...] laboratory testing. 08/23 14:19 :00 Missing Attachment [id number].PDF can be viewed in source system [facility] GENERAL CHEMISTRY Chloride 103 mmol/L 98 - 107 08/23 09:18 :00 [facility] GENERAL CHEMISTRY Sodium 142 mmol/L 136 - 145 08/23 09:18 :00 [facility] GENERAL CHEMISTRY Calcium 9.2 mg/dL 8.3 - 10.6 08/23 09:18 :00 [facility] CHEMISTRY Glucose Lvl 129 mg/dL 70 - 139 08/23 09:18 :00 [facility] CHEMISTRY Potassium 3.9 mmol/L 3.5 - 5.1 08/23 09:18 :00 [facility] CHEMISTRY CO2 29 mmol/L 20 - 31 08/23 09:18 :00 [facility] CHEMISTRY Alkaline Phosphatase 79 U/L 40 - 129 08/23 09:18 :00 [facility] CHEMISTRY ALT-SGPT 26 U/L 10 - 50 08/23 09:18 :00 [facility] CHEMISTRY AST-SGOT 21 U/L 08/23 09:18 :00 [facility] CHEMISTRY Albumin 3.6 g/dL 3.4 - 5.0 08/23 09:18 :00 [facility] CHEMISTRY BUN 13 mg/dL 6 - 20 08/23 09:18 :00 [facility] CHEMISTRY Estimated GFR for Adults 142 mL/min/1.7 3m 08/23 09:18 :00 Interpretive Data: Changed to CKD-EPI 2020 on 2020. [facility] CHEMISTRY Estimated GFR for peds Not Calculated mL/min/1.7 3m 08/23 09:18 :00 Interpretive Data: The estimated GFR was calculated using the B [place] Dorado equation (2009) . Reference: Pediatric GFR calculator at [employer] Website. [facility] CHEMISTRY Total Protein 6.1 g/dL 5.7 - 8.2 08/23 09:18 :00 [facility] CHEMISTRY Anion gap 14 mmol/L 0 - 20 08/23 09:18 :00 [facility] GENERAL CHEMISTRY T Bili 0.43 mg/dL 0.30 - 1.20 08/23 09:18 :00 [facility] GENERAL CHEMISTRY Creatinine, standardized 0.5 mg/dL 0.7 - 1.2 08/23 09:18 :00 Interpretive Data: Beltow-fh-mpt e transgender patients on testosterone therapy should have results assessed using the male reference range. Shpl-cv-hmlzh e transgender patients on hormone-modul ating therapy clinical judgment is advisedfor assessment. [facility] HEMATOLOGY PROFILES QA Review Agree (08/23/24 3:18 AM) 08/23 09:18 :00 [facility] HEMATOLOGY PROFILES Path Review Smear Pathologis t Review of Smear Interpreta tion: Agree Interprete d by: Susy Barragan i, MD 08/23 09:18 :00 [facility] HEMATOLOGY PROFILES Teardrop 1+ (3-6%) *NA* (08/23/24 3:18 AM) 08/23 09:18 :00 [facility] HEMATOLOGY PROFILES Monocytes Manual 8.0 % 08/23 09:18 :00 [facility] HEMATOLOGY PROFILES Neuts Manual 92.0 % 08/23 09:18 :00 [facility] HEMATOLOGY PROFILES Morphology Present *NA* (08/23/24 3:18 AM) 08/23 09:18 :00 [facility] HEMATOLOGY PROFILES Abs Monocytes Manual 0.96 x10(9)/L 0.30 - 0.90 08/23 09:18 :00 [facility] HEMATOLOGY PROFILES Absolute Neutrophils Manual 11.03 x10(9)/L 1.70 - 7.00 08/23 09:18 :00 [facility] HEMATOLOGY PROFILES Internal Review Yes (08/23/24 3:18 AM) 08/23 09:18 :00 [facility] HEMATOLOGY PROFILES Platelet Estimate Adequate *NA* (08/23/24 3:18 AM) 08/23 09:18 :00 [facility] HEMATOLOGY PROFILES Aniso 2+ (20-50%) *NA* (08/23/24 3:18 AM) 08/23 09:18 :00 [facility] HEMATOLOGY PROFILES Elliptocytes (Ovalocytes) 1+ (10-25%) *NA* (08/23/24 3:18 AM) 08/23 09:18 :00 [facility] HEMATOLOGY PROFILES Macro 1+ (25-50%) *NA* (08/23/24 3:18 AM) 08/23 09:18 :00 [facility] HEMATOLOGY PROFILES MCHC 31.7 g/dL 32.0 - 36.0 08/23 09:18 :00 [facility] HEMATOLOGY PROFILES MCH 32.2 pg 26.0 - 33.0 08/23 09:18 :00 [facility] HEMATOLOGY PROFILES MCV 101.3 fL 81.2 - 95.1 08/23 09:18 :00 [facility] HEMATOLOGY PROFILES HCT 31.5 % 38.8 - 50.0 08/23 09:18 :00 Interpretive Data: Wasgic-zt-gmy e transgender patients on testosterone therapy should have results assessed using the male reference range. Fiaq-gi-shquk e transgender patients on hormone-modul ating therapy clinical judgment is advisedfor assessment. [facility] HEMATOLOGY PROFILES HGB 10.0 g/dL 13.5 - 17.5 08/23 09:18 :00 Interpretive Data: Qgeizz-ei-nwm e transgender patients on testosterone therapy should have results assessed using the male reference range. Stsq-dz-ilpdn e transgender patients on hormone-modul ating therapy clinical judgment is advisedfor assessment. [facility] HEMATOLOGY PROFILES MPV 10.2 8.0 - 12.0 08/23 09:18 :00 [facility] HEMATOLOGY PROFILES PLT 206 x10(9)/L 150 - 450 08/23 09:18 :00 [facility] HEMATOLOGY PROFILES RDW SD 78.7 fL 35.1 - 43.9 08/23 09:18 :00 [facility] HEMATOLOGY PROFILES RDW CV 22.0 % 11.8 - 15.6 08/23 09:18 :00 [facility] HEMATOLOGY PROFILES RBC 3.11 x10(12)/L 4.32 - 5.72 08/23 09:18 :00 [facility] HEMATOLOGY PROFILES WBC 11.99 x10(9)/L 3.50 - 10.50 08/23 09:18 :00 [facility] GENERAL CHEMISTRY Creatinine, standardized 0.5 mg/dL 0.7 - 1.2 08/22 10:15 :00 Interpretive Data: Mvyzdu-ds-knt e transgender patients on testosterone therapy should have results assessed using the male reference range. Rpmu-nf-pdzwk e transgender patients on hormone-modul ating therapy clinical judgment is advisedfor assessment. [facility] GENERAL CHEMISTRY Estimated GFR for Adults 141 mL/min/1.7 3m 08/22 10:15 :00 Interpretive Data: Changed to CKD-EPI 2020 on 2020. [facility] CHEMISTRY Estimated GFR for peds Not Calculated mL/min/1.7 3m 08/22 10:15 :00 Interpretive Data: The estimated GFR was calculated using the B lucero Dorado equation (2009) . Reference: Pediatric GFR calculator at [employer] Website. [facility] GENERAL CHEMISTRY Chloride 108 mmol/L 98 - 107 08/22 10:15 :00 [facility] GENERAL CHEMISTRY Glucose Lvl 127 mg/dL 70 - 139 08/22 10:15 :00 [facility] GENERAL CHEMISTRY Sodium 143 mmol/L 136 - 145 08/22 10:15 :00 [facility] GENERAL CHEMISTRY Calcium 8.4 mg/dL 8.3 - 10.6 08/22 10:15 :00 [facility] GENERAL CHEMISTRY BUN 14 mg/dL 6 - 20 08/22 10:15 :00 [facility] GENERAL CHEMISTRY Total Protein 5.5 g/dL 5.7 - 8.2 08/22 10:15 :00 [facility] GENERAL CHEMISTRY T Bili 0.21 mg/dL 0.30 - 1.20 08/22 10:15 :00 [facility] GENERAL CHEMISTRY Potassium 3.6 mmol/L 3.5 - 5.1 08/22 10:15 :00 [facility] GENERAL CHEMISTRY Anion gap 15 mmol/L 0 - 20 08/22 10:15 :00 [facility] GENERAL CHEMISTRY CO2 24 mmol/L 20 - 31 08/22 10:15 :00 [facility] GENERAL CHEMISTRY Alkaline Phosphatase 82 U/L 40 - 129 08/22 10:15 :00 [facility] GENERAL CHEMISTRY Albumin 3.4 g/dL 3.4 - 5.0 08/22 10:15 :00 [facility] GENERAL CHEMISTRY ALT-SGPT 20 U/L 10 - 50 08/22 10:15 :00 [facility] GENERAL CHEMISTRY AST-SGOT 22 U/L 08/22 10:15 :00 [facility] HEMATOLOGY PROFILES WBC 9.18 x10(9)/L 3.50 - 10.50 08/22 10:15 :00 [facility] HEMATOLOGY PROFILES RBC 2.66 x10(12)/L 4.32 - 5.72 08/22 10:15 :00 [facility] HEMATOLOGY PROFILES HGB 8.6 g/dL 13.5 - 17.5 08/22 10:15 :00 Interpretive Data: Iywour-qu-asy e transgender patients on testosterone therapy should have results assessed using the male reference range. Kuzh-fp-rwpty e transgender patients on hormone-modul ating therapy clinical judgment is advisedfor assessment. [facility] HEMATOLOGY PROFILES RDW SD 81.0 fL 35.1 - 43.9 08/22 10:15 :00 [facility] HEMATOLOGY PROFILES PLT 174 x10(9)/L 150 - 450 08/22 10:15 :00 [facility] HEMATOLOGY PROFILES MPV 10.4 8.0 - 12.0 08/22 10:15 :00 [facility] HEMATOLOGY PROFILES MCHC 31.7 g/dL 32.0 - 36.0 08/22 10:15 :00 [facility] HEMATOLOGY PROFILES RDW CV 22.5 % 11.8 - 15.6 08/22 10:15 :00 [facility] HEMATOLOGY PROFILES HCT 27.1 % 38.8 - 50.0 08/22 10:15 :00 Interpretive Data: Wksmvb-oi-qop e transgender patients on testosterone therapy should have results assessed using the male reference range. Proe-zx-dsjou e transgender patients on hormone-modul ating therapy clinical judgment is advisedfor assessment. [facility] HEMATOLOGY PROFILES MCV 101.9 fL 81.2 - 95.1 08/22 10:15 :00 [facility] HEMATOLOGY PROFILES MCH 32.3 pg 26.0 - 33.0 08/22 10:15 :00 [facility] HEMATOLOGY PROFILES Absolute Nucleated RBCs 0.0 x10(9)/L 0.0 - 0.0 08/22 10:15 :00 Interpretive Data: Normal values not established in patients less than [address] [facility] HEMATOLOGY PROFILES % Neutrophils 86.5 % 08/22 10:15 :00 [facility] HEMATOLOGY PROFILES % Lymphocytes 1.9 % 08/22 10:15 :00 [facility] HEMATOLOGY PROFILES % Monocytes 10.8 % 08/22 10:15 :00 [facility] HEMATOLOGY PROFILES Abs Basophils 0.00 x10(9)/L 0.00 - 0.30 08/22 10:15 :00 [facility] HEMATOLOGY PROFILES % Eosinophils 0.0 % 08/22 10:15 :00 [facility] HEMATOLOGY PROFILES % Basophils 0.0 % 08/22 10:15 :00 [facility] HEMATOLOGY PROFILES Absolute Granulocytes 7.95 x10(9)/L 1.70 - 7.00 08/22 10:15 :00 [facility] HEMATOLOGY PROFILES Abs Lymphocytes 0.17 x10(9)/L 0.90 - 2.90 08/22 10:15 :00 [facility] HEMATOLOGY PROFILES Abs Monocytes 0.99 x10(9)/L 0.30 - 0.90 08/22 10:15 :00 [facility] HEMATOLOGY PROFILES Abs Eosinophils 0.00 x10(9)/L 0.05 - 0.50 08/22 10:15 :00 [facility] HEMATOLOGY PROFILES % Nucleated RBCs 0.0 % 08/22 10:15 :00 [facility] HEMATOLOGY PROFILES Platelet Estimate Adequate (08/22/24 4:15 AM) 08/22 10:15 :00 [facility] HEMATOLOGY PROFILES Aniso 2+ (20-50%) (08/22/24 4:15 AM) 08/22 10:15 :00 [facility] HEMATOLOGY PROFILES Schistocytes 1+ (Rare-3%) (08/22/24 4:15 AM) 08/22 10:15 :00 [facility] HEMATOLOGY PROFILES Morphology Present (08/22/24 4:15 AM) 08/22 10:15 :00 [facility] GENERAL CHEMISTRY Albumin 3.9 g/dL 3.4 - 5.0 08/21 10:48 :00 [facility] GENERAL CHEMISTRY AST-SGOT 27 U/L 08/21 10:48 :00 [facility] GENERAL CHEMISTRY BUN 10 mg/dL 6 - 20 08/21 10:48 :00 [facility] GENERAL CHEMISTRY ALT-SGPT 24 U/L 10 - 50 08/21 10:48 :00 [facility] GENERAL CHEMISTRY Alkaline Phosphatase 101 U/L 40 - 129 08/21 10:48 :00 [facility] GENERAL CHEMISTRY Glucose Lvl 123 mg/dL 70 - 139 08/21 10:48 :00 [facility] GENERAL CHEMISTRY Calcium 9.7 mg/dL 8.3 - 10.6 08/21 10:48 :00 [facility] GENERAL CHEMISTRY Potassium 4.0 mmol/L 3.5 - 5.1 08/21 10:48 :00 [facility] GENERAL CHEMISTRY Sodium 142 mmol/L 136 - 145 08/21 10:48 :00 [facility] GENERAL CHEMISTRY Chloride 105 mmol/L 98 - 107 08/21 10:48 :00 [facility] GENERAL CHEMISTRY Anion gap 14 mmol/L 0 - 20 08/21 10:48 :[facility] [facility] GENERAL CHEMISTRY CO2 27 mmol/L 20 - 31 08/21 10:48 :00 [facility] CHEMISTRY Creatinine, standardized 0.5 mg/dL 0.7 - 1.2 08/21 10:48 :00 Interpretive Data: Aoowmn-tp-ylt e transgender patients on testosterone therapy should have results assessed using the male reference range. Spfu-vd-fnwnj e transgender patients on hormone-modul ating therapy clinical judgment is advisedfor assessment. [facility] CHEMISTRY Total Protein 6.6 g/dL 5.7 - 8.2 08/21 10:48 :00 [facility] GENERAL CHEMISTRY T Bili 0.31 mg/dL 0.30 - 1.20 08/21 10:48 :00 Result Comment: see qc comments [facility] GENERAL CHEMISTRY Estimated GFR for peds Not Calculated mL/min/1.7 3m 08/21 10:48 :00 Interpretive Data: The estimated GFR was calculated using the B lucero Dorado equation (2009) . Reference: Pediatric GFR calculator at [employer] Website. [facility] CHEMISTRY Estimated GFR for Adults 142 mL/min/1.7 3m 08/21 10:48 :00 Interpretive Data: Changed to CKD-EPI [address] [facility] GENERAL CHEMISTRY LDH 210 U/L 120 - 246 08/21 10:48 :00 [facility] GENERAL CHEMISTRY Phosphorus 3.6 mg/dL 2.4 - 5.1 08/21 10:48 :00 [facility] GENERAL CHEMISTRY Uric Acid 5.6 mg/dL 3.7 - 9.2 08/21 10:48 :00 [facility] HEMATOLOGY PROFILES Elliptocytes (Ovalocytes) 1+ (10-25%) *NA* (08/21/24 4:48 AM) 08/21 10:48 :00 [facility] HEMATOLOGY PROFILES Aniso 1+ (10-20%) *NA* (08/21/24 4:48 AM) 08/21 10:48 :00 [facility] HEMATOLOGY PROFILES Platelet Estimate Adequate *NA* (08/21/24 4:48 AM) 08/21 10:48 :00 [facility] HEMATOLOGY PROFILES Morphology Present *NA* (08/21/24 4:48 AM) 08/21 10:48 :00 [facility] HEMATOLOGY PROFILES Monocytes Manual 0.9 % 08/21 10:48 :00 [facility] HEMATOLOGY PROFILES Lymphocytes Manual 6.9 % 08/21 10:48 :00 [facility] HEMATOLOGY PROFILES Neuts Manual 92.2 % 08/21 10:48 :00 [facility] HEMATOLOGY PROFILES Abs Monocytes Manual 0.05 x10(9)/L 0.30 - 0.90 08/21 10:48 :00 [facility] HEMATOLOGY PROFILES Abs Lymphocytes Manual 0.40 x10(9)/L 0.90 - 2.90 08/21 10:48 :00 [facility] HEMATOLOGY PROFILES Absolute Neutrophils Manual 5.40 x10(9)/L 1.70 - 7.00 08/21 10:48 :00 [facility] HEMATOLOGY PROFILES Stomatocytes 1+ (10-25%) *NA* (08/21/24 4:48 AM) 08/21 10:48 :00 [facility] HEMATOLOGY PROFILES Poly 1+ (2-10%) *NA* (08/21/24 4:48 AM) 08/21 10:48 :00 [facility] HEMATOLOGY PROFILES Macro 1+ (25-50%) *NA* (08/21/24 4:48 AM) 08/21 10:48 :00 [facility] HEMATOLOGY PROFILES WBC 5.86 x10(9)/L 3.50 - 10.50 08/21 10:48 :00 [facility] HEMATOLOGY PROFILES HCT 29.7 % 38.8 - 50.0 08/21 10:48 :00 Interpretive Data: Bwbpmp-mk-ibi e transgender patients on testosterone therapy should have results assessed using the male reference range. Aaca-ix-fgolx e transgender patients on hormone-modul ating therapy clinical judgment is advisedfor assessment. [facility] HEMATOLOGY PROFILES HGB 9.5 g/dL 13.5 - 17.5 08/21 10:48 :00 Interpretive Data: Sorsfg-sj-qiy e transgender patients on testosterone therapy should have results assessed using the male reference range. Xvwv-vq-rsmtw e transgender patients on hormone-modul ating therapy clinical judgment is advisedfor assessment. [facility] HEMATOLOGY PROFILES RBC 2.96 x10(12)/L 4.32 - 5.72 08/21 10:48 :00 [facility] HEMATOLOGY PROFILES MCHC 32.0 g/dL 32.0 - 36.0 08/21 10:48 :00 [facility] HEMATOLOGY PROFILES RDW CV 22.3 % 11.8 - 15.6 08/21 10:48 :00 [facility] HEMATOLOGY PROFILES MCV 100.3 fL 81.2 - 95.1 08/21 10:48 :00 [facility] HEMATOLOGY PROFILES MCH 32.1 pg 26.0 - 33.0 08/21 10:48 :00 [facility] HEMATOLOGY PROFILES RDW SD 78.2 fL 35.1 - 43.9 08/21 10:48 :00 [facility] HEMATOLOGY PROFILES MPV 9.7 8.0 - 12.0 08/21 10:48 :00 [facility] HEMATOLOGY PROFILES PLT 200 x10(9)/L 150 - 450 08/21 10:48 :00 [facility] BODY FLUIDS/CSF CSF, Protein 19 mg/dL 15 - 45 08/20 21:30 :00 [facility] BODY FLUIDS/CSF CSF, Glucose 74 mg/dL 40 - 70 08/20 21:30 :00 [facility] BODY FLUIDS/CSF CSF, RBC 1 /mcL 08/20 21:30 :00 Interpretive Data: Variation from manual counting may exceed 50% and approach 15-20% using automated method. [facility] BODY FLUIDS/CSF CSF, WBC 0 /mcL 08/20 21:30 :00 Interpretive Data: Variation from manual counting may exceed 50% and approach 15-20% using automated method. Pleocytosis in Adults (increased WBC count) may be graded: Mild: 5-50 WBC/uL Moderate: 51-200 WBC/uL Severe: > 200 WBC/uL CSF may have > 60% neutrophils in high-risk neonates without meningitis [facility] BODY FLUIDS/CSF CSF, Spec Appear Clear (08/20/24 3:30 PM) 08/20 21:30 :00 [facility] BODY FLUIDS/CSF CSF, Color Colorless (08/20/24 3:30 PM) 08/20 21:30 :00 [facility] BODY FLUIDS/CSF CSF Cutoff Values See [...] would require invasive sampling of normal people. [facility] Cytology Non-HUMAN RESOURCES COORDINATOR Report Cytology Non-HUMAN RESOURCES COORDINATOR Report CYTOLOGY MEDICAL REPORT Patient Name: EVELINA REGALADO Specimen Number: [id number] Patient Collection Date: 08/20/2024 Submitting Physician: Heike Barrientos MD Signout Date: 08/21/2024 Other Physician( s): Aleisha Gordon MD ======== FINAL DIAGNOSIS CEREBROSPI NAL FLUID: Negative for leukemia. Please see previous material ([id number] , [id number], [id number], [id number], [id number]). Please see comment. Diagnosis Comment Microscopi c [...] report (if any) were determined by the [facility] Department of Pathology. They have not [...] laboratory testing. 08/20 15:28 :00 Missing Attachment [id number] can be viewed in source system [facility] GENERAL CHEMISTRY AST-SGOT 26 U/L 08/20 10:14 :00 [facility] GENERAL CHEMISTRY Albumin 3.8 g/dL 3.4 - 5.0 08/20 10:14 :00 [facility] GENERAL CHEMISTRY Alkaline Phosphatase 89 U/L 40 - 129 08/20 10:14 :00 [facility] GENERAL CHEMISTRY ALT-SGPT 19 U/L 10 - 50 08/20 10:14 :00 [facility] GENERAL CHEMISTRY T Bili 0.30 mg/dL 0.30 - 1.20 08/20 10:14 :00 [facility] GENERAL CHEMISTRY Anion gap 11 mmol/L 0 - 20 08/20 10:14 :00 [facility] GENERAL CHEMISTRY Creatinine, standardized 0.7 mg/dL 0.7 - 1.2 08/20 10:14 :00 Interpretive Data: Sajdsd-nx-ksf e transgender patients on testosterone therapy should have results assessed using the male reference range. Ccjb-kn-ajjce e transgender patients on hormone-modul ating therapy clinical judgment is advisedfor assessment. [facility] GENERAL CHEMISTRY Total Protein 6.0 g/dL 5.7 - 8.2 08/20 10:14 :00 [facility] GENERAL CHEMISTRY CO2 30 mmol/L 20 - 31 08/20 10:14 :00 [facility] GENERAL CHEMISTRY Estimated GFR for peds Not calculated 08/20 10:14 :00 Interpretive Data: The estimated GFR was calculated using the B lucero Dorado equation (2009) . Reference: Pediatric GFR calculator at [employer] Website. [facility] CHEMISTRY Estimated GFR for Adults 132 mL/min/1.7 3m 08/20 10:14 :00 Interpretive Data: Changed to CKD-EPI [address] [facility] GENERAL CHEMISTRY Calcium 9.0 mg/dL 8.3 - 10.6 08/20 10:14 :00 [facility] GENERAL CHEMISTRY Glucose Lvl 87 mg/dL 70 - 139 08/20 10:14 :00 [facility] GENERAL CHEMISTRY Chloride 104 mmol/L 98 - 107 08/20 10:14 :00 [facility] GENERAL CHEMISTRY Sodium 141 mmol/L 136 - 145 08/20 10:14 :00 [facility] GENERAL CHEMISTRY BUN 8 mg/dL 6 - 20 08/20 10:14 :00 [facility] GENERAL CHEMISTRY Potassium 3.9 mmol/L 3.5 - 5.1 08/20 10:14 :00 [facility] HEMATOLOGY PROFILES MCHC 30.8 g/dL 32.0 - 36.0 08/20 10:14 :00 [facility] HEMATOLOGY PROFILES MCH 31.3 pg 26.0 - 33.0 08/20 10:14 :00 [facility] HEMATOLOGY PROFILES MCV 101.8 fL 81.2 - 95.1 08/20 10:14 :00 [facility] HEMATOLOGY PROFILES HCT 28.9 % 38.8 - 50.0 08/20 10:14 :00 Interpretive Data: Nftpoa-tz-pff e transgender patients on testosterone therapy should have results assessed using the male reference range. Nhxy-iv-byjth e transgender patients on hormone-modul ating therapy clinical judgment is advisedfor assessment. [facility] HEMATOLOGY PROFILES HGB 8.9 g/dL 13.5 - 17.5 08/20 10:14 :00 Interpretive Data: Pyyqke-rf-bfz e transgender patients on testosterone therapy should have results assessed using the male reference range. Jsrc-nx-wdrvb e transgender patients on hormone-modul ating therapy clinical judgment is advisedfor assessment. [facility] HEMATOLOGY PROFILES RBC 2.84 x10(12)/L 4.32 - 5.72 08/20 10:14 :00 [facility] HEMATOLOGY PROFILES MPV 9.9 8.0 - 12.0 08/20 10:14 :00 [facility] HEMATOLOGY PROFILES PLT 205 x10(9)/L 150 - 450 08/20 10:14 :00 [facility] HEMATOLOGY PROFILES RDW SD 83.7 fL 35.1 - 43.9 08/20 10:14 :00 [facility] HEMATOLOGY PROFILES RDW CV 23.4 % 11.8 - 15.6 08/20 10:14 :00 [facility] HEMATOLOGY PROFILES WBC 4.19 x10(9)/L 3.50 - 10.50 08/20 10:14 :00 [facility] HEMATOLOGY PROFILES Neuts Manual 62.5 % 08/20 10:14 :00 [facility] HEMATOLOGY PROFILES Lymphocytes Manual 11.6 % 08/20 10:14 :00 [facility] HEMATOLOGY PROFILES Abs Monocytes Manual 0.97 x10(9)/L 0.30 - 0.90 08/20 10:14 :00 [facility] HEMATOLOGY PROFILES Abs Eosinophils Manual 0.04 x10(9)/L 0.05 - 0.50 08/20 10:14 :00 [facility] HEMATOLOGY PROFILES Abs Basophils Manual 0.08 x10(9)/L 0.00 - 0.30 08/20 10:14 :00 [facility] HEMATOLOGY PROFILES Poly 1+ (2-10%) *NA* (08/20/24 4:14 AM) 08/20 10:14 :00 [facility] HEMATOLOGY PROFILES Platelet Estimate Adequate *NA* (08/20/24 4:14 AM) 08/20 10:14 :00 [facility] HEMATOLOGY PROFILES Aniso 2+ (20-50%) *NA* (08/20/24 4:14 AM) 08/20 10:14 :00 [facility] HEMATOLOGY PROFILES Elliptocytes (Ovalocytes) 1+ (10-25%) *NA* (08/20/24 4:14 AM) 08/20 10:14 :00 [facility] HEMATOLOGY PROFILES Macro 1+ (25-50%) *NA* (08/20/24 4:14 AM) 08/20 10:14 :00 [facility] HEMATOLOGY PROFILES Morphology Present *NA* (08/20/24 4:14 AM) 08/20 10:14 :00 [facility] HEMATOLOGY PROFILES Monocytes Manual 23.2 % 08/20 10:14 :00 [facility] HEMATOLOGY PROFILES Eosinophils Manual 0.9 % 08/20 10:14 :00 [facility] HEMATOLOGY PROFILES Basophils Manual 1.8 % 08/20 10:14 :00 [facility] HEMATOLOGY PROFILES Absolute Neutrophils Manual 2.62 x10(9)/L 1.70 - 7.00 08/20 10:14 :00 [facility] HEMATOLOGY PROFILES Abs Lymphocytes Manual 0.49 x10(9)/L 0.90 - 2.90 08/20 10:14 :00 [facility] HEMATOLOGY PROFILES Schistocytes 1+ (Rare-3%) *NA* (08/20/24 4:14 AM) 08/20 10:14 :00 [facility] HEMATOLOGY PROFILES % Neutrophils 60.6 % 08/19 19:33 :00 [facility] HEMATOLOGY PROFILES Absolute Nucleated RBCs 0.0 x10(9)/L 0.0 - 0.0 08/19 19:33 :00 Interpretive Data: Normal values not established in patients less than [address] [facility] HEMATOLOGY PROFILES % Nucleated RBCs 0.0 % 08/19 19:33 :00 [facility] HEMATOLOGY PROFILES Absolute Granulocytes 3.47 x10(9)/L 1.70 - 7.00 08/19 19:33 :00 [facility] HEMATOLOGY PROFILES % Immature Granulocytes 1.00 % 0.02 - 0.42 08/19 19:33 :00 [facility] HEMATOLOGY PROFILES % Basophils 0.9 % 08/19 19:33 :00 [facility] HEMATOLOGY PROFILES % Eosinophils 0.2 % 08/19 19:33 :00 [facility] HEMATOLOGY PROFILES % Monocytes 25.3 % 08/19 19:33 :00 [facility] HEMATOLOGY PROFILES % Lymphocytes 12.0 % 08/19 19:33 :00 [facility] HEMATOLOGY PROFILES Abs Immature Granulocytes 0.06 x10(9)/L 0.00 - 0.03 08/19 19:33 :00 [facility] HEMATOLOGY PROFILES Abs Basophils 0.05 x10(9)/L 0.00 - 0.30 08/19 19:33 :00 [facility] HEMATOLOGY PROFILES Abs Eosinophils 0.01 x10(9)/L 0.05 - 0.50 08/19 19:33 :00 [facility] HEMATOLOGY PROFILES Abs Monocytes 1.45 x10(9)/L 0.30 - 0.90 08/19 19:33 :00 [facility] HEMATOLOGY PROFILES Abs Lymphocytes 0.69 x10(9)/L 0.90 - 2.90 08/19 19:33 :00 [facility] BODY FLUIDS/CSF CSF, Spec Appear Clear (07/26/24 12:30 PM) 07/26 18:30 :00 [facility] BODY FLUIDS/CSF CSF, Color Colorless (07/26/24 12:30 PM) 07/26 18:30 :00 [facility] BODY FLUIDS/CSF CSF Xanthochromi c Absent (07/26/24 12:30 PM) 07/26 18:30 :00 [facility] BODY FLUIDS/CSF CSF, WBC 3 /mcL 07/26 18:30 :00 Interpretive Data: Variation from manual counting may exceed 50% and approach 15-20% using automated method. Pleocytosis in Adults (increased WBC count) may be graded: Mild: 5-50 WBC/uL Moderate: 51-200 WBC/uL Severe: > 200 WBC/uL CSF may have > 60% neutrophils in high-risk neonates without meningitis [facility] BODY FLUIDS/CSF CSF, RBC 0 /mcL 07/26 18:30 :00 Interpretive Data: Variation from manual counting may exceed 50% and approach 15-20% using automated method. [facility] BODY FLUIDS/CSF CSF Cutoff Values See Comment [...] would require invasive sampling of normal people. [facility] BODY FLUIDS/CSF CSF Cell Count-Neuts % 0 % 07/26 18:30 :00 [facility] BODY FLUIDS/CSF Lymph % CSF 100.0 % 07/26 18:30 :00 [facility] GENERAL CHEMISTRY AST-SGOT 30 U/L 07/26 16:24 :29 [facility] GENERAL CHEMISTRY Albumin 3.9 g/dL 3.4 - 5.0 07/26 16:24 :29 [facility] GENERAL CHEMISTRY Alkaline Phosphatase 104 U/L 40 - 129 07/26 16:24 :29 [facility] GENERAL CHEMISTRY ALT-SGPT 98 U/L 10 - 50 07/26 16:24 :29 [facility] GENERAL CHEMISTRY BUN 13 mg/dL 6 - 20 07/26 16:24 :29 [facility] GENERAL CHEMISTRY Calcium 9.6 mg/dL 8.3 - 10.6 07/26 16:24 :29 [facility] GENERAL CHEMISTRY Glucose Lvl 91 mg/dL 70 - 139 07/26 16:24 :29 [facility] GENERAL CHEMISTRY Chloride 105 mmol/L 98 - 107 07/26 16:24 :29 [facility] GENERAL CHEMISTRY Sodium 143 mmol/L 136 - 145 07/26 16:24 :29 [facility] GENERAL CHEMISTRY Potassium 3.6 mmol/L 3.5 - 5.1 07/26 16:24 :29 [facility] GENERAL CHEMISTRY CO2 26 mmol/L 20 - 31 07/26 16:24 :29 [facility] GENERAL CHEMISTRY Anion gap 16 mmol/L 0 - 20 07/26 16:24 :29 [facility] GENERAL CHEMISTRY T Bili 0.49 mg/dL 0.30 - 1.20 07/26 16:24 :29 [facility] GENERAL CHEMISTRY Total Protein 6.5 g/dL 5.7 - 8.2 07/26 16:24 :29 [facility] GENERAL CHEMISTRY Creatinine, standardized 0.6 mg/dL 0.7 - 1.2 07/26 16:24 :29 Interpretive Data: Rvqpky-tm-vmp e transgender patients on testosterone therapy should have results assessed using the male reference range. Ndox-ne-mefar e transgender patients on hormone-modul ating therapy clinical judgment is advisedfor assessment. [facility] GENERAL CHEMISTRY Estimated GFR for Adults 138 mL/min/1.7 3m 07/26 16:24 :29 Interpretive Data: Changed to CKD-EPI 2020 on 2020. [facility] GENERAL CHEMISTRY Estimated GFR for peds Not calculated 07/26 16:24 :29 Interpretive Data: The estimated GFR was calculated using the Teddy barker Dorado equation (2009) . Reference: Pediatric GFR calculator at [employer] Website. [facility] HEMATOLOGY PROFILES WBC 2.41 x10(9)/L 3.50 - 10.50 07/26 16:24 :29 [facility] HEMATOLOGY PROFILES RBC 3.42 x10(12)/L 4.32 - 5.72 07/26 16:24 :29 [facility] HEMATOLOGY PROFILES HGB 10.2 g/dL 13.5 - 17.5 07/26 16:24 :29 Interpretive Data: Oxdals-hy-ixu e transgender patients on testosterone therapy should have results assessed using the male reference range. Zkjp-yz-llmkh e transgender patients on hormone-modul ating therapy clinical judgment is advisedfor assessment. [facility] HEMATOLOGY PROFILES HCT 31.1 % 38.8 - 50.0 07/26 16:24 :29 Interpretive Data: Gmwcbx-ll-vpf e transgender patients on testosterone therapy should have results assessed using the male reference range. Cbuw-ga-ivzna e transgender patients on hormone-modul ating therapy clinical judgment is advisedfor assessment. [facility] HEMATOLOGY PROFILES MCV 90.9 fL 81.2 - 95.1 07/26 16:24 :29 [facility] HEMATOLOGY PROFILES MCH 29.8 pg 26.0 - 33.0 07/26 16:24 :29 [facility] HEMATOLOGY PROFILES MCHC 32.8 g/dL 32.0 - 36.0 07/26 16:24 :29 [facility] HEMATOLOGY PROFILES RDW CV 15.8 % 11.8 - 15.6 07/26 16:24 :29 [facility] HEMATOLOGY PROFILES RDW SD 52.8 fL 35.1 - 43.9 07/26 16:24 :29 [facility] HEMATOLOGY PROFILES PLT 149 x10(9)/L 150 - 450 07/26 16:24 :29 [facility] HEMATOLOGY PROFILES MPV 9.2 8.0 - 12.0 07/26 16:24 :29 [facility] HEMATOLOGY PROFILES Neuts Manual 82.0 % 07/26 16:24 :29 [facility] HEMATOLOGY PROFILES Lymphocytes Manual 12.0 % 07/26 16:24 :29 [facility] HEMATOLOGY PROFILES Eosinophils Manual 3.0 % 07/26 16:24 :29 [facility] HEMATOLOGY PROFILES Basophils Manual 3.0 % 07/26 16:24 :29 [facility] HEMATOLOGY PROFILES Absolute Neutrophils Manual 1.98 x10(9)/L 1.70 - 7.00 07/26 16:24 :29 [facility] HEMATOLOGY PROFILES Abs Lymphocytes Manual 0.29 x10(9)/L 0.90 - 2.90 07/26 16:24 :29 [facility] HEMATOLOGY PROFILES Abs Eosinophils Manual 0.07 x10(9)/L 0.05 - 0.50 07/26 16:24 :29 [facility] HEMATOLOGY PROFILES Abs Basophils Manual 0.07 x10(9)/L 0.00 - 0.30 07/26 16:24 :29 [facility] HEMATOLOGY PROFILES Morphology Present *NA* (07/26/24 10:24 AM) 07/26 16:24 :29 [facility] HEMATOLOGY PROFILES Platelet Estimate Decreased *NA* (07/26/24 10:24 AM) 07/26 16:24 :29 [facility] HEMATOLOGY PROFILES Elliptocytes (Ovalocytes) 1+ (10-25%) *NA* (07/26/24 10:24 AM) 07/26 16:24 :29 [facility] HEMATOLOGY PROFILES Schistocytes 1+ (Rare-3%) *NA* (07/26/24 10:24 AM) 07/26 16:24 :29 [facility] HEMATOLOGY PROFILES Teardrop 1+ (3-6%) *NA* (07/26/24 10:24 AM) 07/26 16:24 :29 [facility] Cytology Non-HUMAN RESOURCES COORDINATOR Report Cytology Non-HUMAN RESOURCES COORDINATOR Report CYTOLOGY MEDICAL REPORT Patient Name: EVELINA REGALADO Specimen Number: [id number] Patient Collection Date: 07/26/2024 Submitting Physician: Miguelina Horne M.D. Signout Date: 07/26/2024 Other Physician( s): MD Heike Maldonado MD ======== FINAL DIAGNOSIS CEREBROSPI NAL FLUID: Negative for Acute Leukemia Please see previous material ([id number] , [id number], [id number], [id number]) Diagnosis Comment Microscopi c descriptio n: Review [...] report (if any) were determined by the [facility] Department of Pathology. They have not [...] laboratory testing. 07/26 12:49 :00 Missing Attachment [id number] can be viewed in source system [facility] GENERAL CHEMISTRY ALT-SGPT 130 U/L 10 - 50 07/24 11:28 :00 [facility] GENERAL CHEMISTRY Albumin 3.5 g/dL 3.4 - 5.0 07/24 11:28 :00 [facility] GENERAL CHEMISTRY Alkaline Phosphatase 88 U/L 40 - 129 07/24 11:28 :00 [facility] CHEMISTRY AST-SGOT 42 U/L 07/24 11:28 :00 [facility] CHEMISTRY Anion gap 12 mmol/L 0 - 20 07/24 11:28 :00 [facility] CHEMISTRY Sodium 141 mmol/L 136 - 145 07/24 11:28 :00 [facility] CHEMISTRY Glucose Lvl 103 mg/dL 70 - 139 07/24 11:28 :00 [facility] CHEMISTRY Chloride 107 mmol/L 98 - 107 07/24 11:28 :00 [facility] CHEMISTRY BUN 12 mg/dL 6 - 20 07/24 11:28 :00 [facility] CHEMISTRY Calcium 9.9 mg/dL 8.3 - 10.6 07/24 11:28 :00 [facility] CHEMISTRY Total Protein 5.9 g/dL 5.7 - 8.2 07/24 11:28 :00 [facility] GENERAL CHEMISTRY CO2 26 mmol/L 20 - 31 07/24 11:28 :00 [facility] GENERAL CHEMISTRY T Bili 0.81 mg/dL 0.30 - 1.20 07/24 11:28 :00 [facility] GENERAL CHEMISTRY Potassium 4.0 mmol/L 3.5 - 5.1 07/24 11:28 :00 [facility] CHEMISTRY Estimated GFR for peds Not calculated 07/24 11:28 :00 Interpretive Data: The estimated GFR was calculated using the Teddy barker Dorado equation (2009) . Reference: Pediatric GFR calculator at [employer] Website. [facility] GENERAL CHEMISTRY Creatinine, standardized 0.5 mg/dL 0.7 - 1.2 07/24 11:28 :00 Interpretive Data: Bknvbx-gb-onm e transgender patients on testosterone therapy should have results assessed using the male reference range. Pwuq-gl-jakdi e transgender patients on hormone-modul ating therapy clinical judgment is advisedfor assessment. [facility] HEMATOLOGY PROFILES RBC 3.21 x10(12)/L 4.32 - 5.72 07/24 11:28 :00 [facility] HEMATOLOGY PROFILES WBC 5.80 x10(9)/L 3.50 - 10.50 07/24 11:28 :00 [facility] HEMATOLOGY PROFILES HCT 30.3 % 38.8 - 50.0 07/24 11:28 :00 Interpretive Data: Gidkqg-bb-eqr e transgender patients on testosterone therapy should have results assessed using the male reference range. Cgjw-co-gpqlr e transgender patients on hormone-modul ating therapy clinical judgment is advisedfor assessment. [facility] HEMATOLOGY PROFILES HGB 9.8 g/dL 13.5 - 17.5 07/24 11:28 :00 Interpretive Data: Ggvapa-aq-ahn e transgender patients on testosterone therapy should have results assessed using the male reference range. Gfdi-fh-nsmar e transgender patients on hormone-modul ating therapy clinical judgment is advisedfor assessment. [facility] HEMATOLOGY PROFILES MCHC 32.3 g/dL 32.0 - 36.0 07/24 11:28 :00 [facility] HEMATOLOGY PROFILES MCH 30.5 pg 26.0 - 33.0 07/24 11:28 :00 [facility] HEMATOLOGY PROFILES MCV 94.4 fL 81.2 - 95.1 07/24 11:28 :00 [facility] HEMATOLOGY PROFILES RDW CV 15.4 % 11.8 - 15.6 07/24 11:28 :00 [facility] HEMATOLOGY PROFILES MPV 10.1 8.0 - 12.0 07/24 11:28 :00 [facility] HEMATOLOGY PROFILES PLT 195 x10(9)/L 150 - 450 07/24 11:28 :00 [facility] HEMATOLOGY PROFILES RDW SD 53.6 fL 35.1 - 43.9 07/24 11:28 :00 [facility] URINALYSIS UA PROTEIN Negative mg/dL 07/23 20:50 :00 [facility] URINALYSIS UA NITRITE Negative (07/23/24 2:50 PM) 07/23 20:50 :00 [facility] URINALYSIS BILIRUBIN Negative (07/23/24 2:50 PM) 07/23 20:50 :00 [facility] URINALYSIS UA UROBILINOGEN Negative Yumi unit/dL 0.2 - 1.0 07/23 20:50 :00 [facility] URINALYSIS UA BLOOD Negative 14 (07/23/24 2:50 PM) 07/23 20:50 :00 Result Comment: A hemoglobin concentration of 0.015-0.062 mg/dL is approximately equivalent to 5 -20 intact red blood cells per microliter. [facility] URINALYSIS UA LEUKOCYTES Negative (07/23/24 2:50 PM) 07/23 20:50 :00 [facility] URINALYSIS UA KETONES Negative mg/dL 07/23 20:50 :00 [facility] URINALYSIS COLOR Yellow (07/23/24 2:50 PM) 07/23 20:50 :00 [facility] URINALYSIS SPECIFIC GRAVITY 1.015 1.006 - 1.030 07/23 20:50 :00 [facility] URINALYSIS UA PH 8 *NA* (07/23/24 2:50 PM) 4.5 - 8.0 07/23 20:50 :00 [facility] URINALYSIS UA GLUCOSE Negative mg/dL 07/23 20:50 :00 [facility] URINALYSIS CLARITY Slightly Cloudy (07/23/24 2:50 PM) 07/23 20:50 :00 [facility] GENERAL CHEMISTRY Estimated GFR for peds Not calculated 07/23 08:28 :00 Interpretive Data: The estimated GFR was calculated using the B lucero Dorado equation (2009) . Reference: Pediatric GFR calculator at [employer] Website. [facility] GENERAL CHEMISTRY Total Protein 5.9 g/dL 5.7 - 8.2 07/23 08:28 :00 [facility] GENERAL CHEMISTRY T Bili 0.50 mg/dL 0.30 - 1.20 07/23 08:28 :00 [facility] GENERAL CHEMISTRY Anion gap 10 mmol/L 0 - 20 07/23 08:28 :00 [facility] GENERAL CHEMISTRY Creatinine, standardized 0.5 mg/dL 0.7 - 1.2 07/23 08:28 :00 Interpretive Data: Eabhdq-bl-fsp e transgender patients on testosterone therapy should have results assessed using the male reference range. Ixie-zi-tkuun e transgender patients on hormone-modul ating therapy clinical judgment is advisedfor assessment. [facility] GENERAL CHEMISTRY Estimated GFR for Adults 147 mL/min/1.7 3m 07/23 08:28 :00 Interpretive Data: Changed to CKD-EPI [address] [facility] GENERAL CHEMISTRY BUN 5 mg/dL 6 - 20 07/23 08:28 :00 [facility] GENERAL CHEMISTRY ALT-SGPT 175 U/L 10 - 50 07/23 08:28 :00 [facility] CHEMISTRY Alkaline Phosphatase 101 U/L 40 - 129 07/23 08:28 :00 [facility] GENERAL CHEMISTRY Calcium 9.5 mg/dL 8.3 - 10.6 07/23 08:28 :00 [facility] GENERAL CHEMISTRY Potassium 3.8 mmol/L 3.5 - 5.1 07/23 08:28 :00 [facility] GENERAL CHEMISTRY Sodium 142 mmol/L 136 - 145 07/23 08:28 :00 [facility] GENERAL CHEMISTRY Chloride 103 mmol/L 98 - 107 07/23 08:28 :00 [facility] GENERAL CHEMISTRY Glucose Lvl 125 mg/dL 70 - 139 07/23 08:28 :00 [facility] GENERAL CHEMISTRY CO2 33 mmol/L 20 - 31 07/23 08:28 :00 [facility] GENERAL CHEMISTRY Albumin 3.6 g/dL 3.4 - 5.0 07/23 08:28 :00 [facility] GENERAL CHEMISTRY AST-SGOT 71 U/L 07/23 08:28 :00 [facility] HEMATOLOGY PROFILES PLT 230 x10(9)/L 150 - 450 07/23 08:28 :00 [facility] HEMATOLOGY PROFILES MPV 9.8 8.0 - 12.0 07/23 08:28 :00 [facility] HEMATOLOGY PROFILES RDW CV 15.4 % 11.8 - 15.6 07/23 08:28 :00 [facility] HEMATOLOGY PROFILES RDW SD 51.8 fL 35.1 - 43.9 07/23 08:28 :00 [facility] HEMATOLOGY PROFILES MCH 29.9 pg 26.0 - 33.0 07/23 08:28 :00 [facility] HEMATOLOGY PROFILES MCHC 32.5 g/dL 32.0 - 36.0 07/23 08:28 :00 [facility] HEMATOLOGY PROFILES HCT 31.4 % 38.8 - 50.0 07/23 08:28 :00 Interpretive Data: Aeacki-ub-lhd e transgender patients on testosterone therapy should have results assessed using the male reference range. Thuv-go-suewu e transgender patients on hormone-modul ating therapy clinical judgment is advisedfor assessment. [facility] HEMATOLOGY PROFILES MCV 92.1 fL 81.2 - 95.1 07/23 08:28 :00 [facility] HEMATOLOGY PROFILES HGB 10.2 g/dL 13.5 - 17.5 07/23 08:28 :00 Interpretive Data: Xxyldi-tb-ylh e transgender patients on testosterone therapy should have results assessed using the male reference range. Zhqw-xm-sesvm e transgender patients on hormone-modul ating therapy clinical judgment is advisedfor assessment. [facility] HEMATOLOGY PROFILES WBC 5.74 x10(9)/L 3.50 - 10.50 07/23 08:28 :00 [facility] HEMATOLOGY PROFILES RBC 3.41 x10(12)/L 4.32 - 5.72 07/23 08:28 :00 [facility] HEMATOLOGY PROFILES Abs Eosinophils 0.00 x10(9)/L 0.05 - 0.50 07/23 08:28 :00 [facility] HEMATOLOGY PROFILES Abs Lymphocytes 0.29 x10(9)/L 0.90 - 2.90 07/23 08:28 :00 [facility] HEMATOLOGY PROFILES Abs Monocytes 0.18 x10(9)/L 0.30 - 0.90 07/23 08:28 :00 [facility] HEMATOLOGY PROFILES % Eosinophils 0.0 % 07/23 08:28 :00 [facility] HEMATOLOGY PROFILES % Basophils 0.0 % 07/23 08:28 :00 [facility] HEMATOLOGY PROFILES % Lymphocytes 5.1 % 07/23 08:28 :00 [facility] HEMATOLOGY PROFILES % Monocytes 3.1 % 07/23 08:28 :00 [facility] HEMATOLOGY PROFILES % Immature Granulocytes 1.20 % 0.02 - 0.42 07/23 08:28 :00 [facility] HEMATOLOGY PROFILES Absolute Granulocytes 5.20 x10(9)/L 1.70 - 7.00 07/23 08:28 :00 [facility] HEMATOLOGY PROFILES % Nucleated RBCs 0.0 % 07/23 08:28 :00 [facility] HEMATOLOGY PROFILES Absolute Nucleated RBCs 0.0 x10(9)/L 0.0 - 0.0 07/23 08:28 :00 Interpretive Data: Normal values not established in patients less than [address] [facility] HEMATOLOGY PROFILES % Neutrophils 90.6 % 07/23 08:28 :00 [facility] HEMATOLOGY PROFILES Abs Immature Granulocytes 0.07 x10(9)/L 0.00 - 0.03 07/23 08:28 :00 [facility] HEMATOLOGY PROFILES Abs Basophils 0.00 x10(9)/L 0.00 - 0.30 07/23 08:28 :00 [facility] URINALYSIS UA UROBILINOGEN Negative Yumi unit/dL 0.2 - 1.0 07/23 08:28 :00 [facility] URINALYSIS UA BLOOD Negative 15 (07/23/24 2:28 AM) 07/23 08:28 :00 Result Comment: A hemoglobin concentration of 0.015-0.062 mg/dL is approximately equivalent to 5 -20 intact red blood cells per microliter. [facility] URINALYSIS UA LEUKOCYTES Negative (07/23/24 2:28 AM) 07/23 08:28 :00 [facility] URINALYSIS UA NITRITE Negative (07/23/24 2:28 AM) 07/23 08:28 :00 [facility] URINALYSIS UA PROTEIN Negative mg/dL 07/23 08:28 :00 [facility] URINALYSIS SPECIFIC GRAVITY 1.005 1.006 - 1.030 07/23 08:28 :00 [facility] URINALYSIS UA PH 9 *NA* (07/23/24 2:28 AM) 4.5 - 8.0 07/23 08:28 :00 [facility] URINALYSIS UA GLUCOSE Negative mg/dL 07/23 08:28 :00 [facility] URINALYSIS UA KETONES Negative mg/dL 07/23 08:28 :00 [facility] URINALYSIS BILIRUBIN Negative (07/23/24 2:28 AM) 07/23 08:28 :00 [facility] URINALYSIS CLARITY Clear (07/23/24 2:28 AM) 07/23 08:28 :00 [facility] URINALYSIS COLOR Straw (07/23/24 2:28 AM) 07/23 08:28 :00 [facility] THERAPEUTI C DRUGS Methotrexate Lvl 0.07 umol/L 07/23 02:38 :00 [facility] URINALYSIS UA LEUKOCYTES Negative (07/22/24 8:38 PM) 07/23 02:38 :00 [facility] URINALYSIS UA PROTEIN Negative mg/dL 07/23 02:38 :00 [facility] URINALYSIS UA NITRITE Negative (07/22/24 8:38 PM) 07/23 02:38 :00 [facility] URINALYSIS UA KETONES Negative mg/dL 07/23 02:38 :00 [facility] URINALYSIS UA GLUCOSE Negative mg/dL 07/23 02:38 :00 [facility] URINALYSIS UA UROBILINOGEN Negative Yumi unit/dL 0.2 - 1.0 07/23 02:38 :00 [facility] URINALYSIS BILIRUBIN Negative (07/22/24 8:38 PM) 07/23 02:38 :00 [facility] URINALYSIS UA BLOOD Negative 16 (07/22/24 8:38 PM) 07/23 02:38 :00 Result Comment: A hemoglobin concentration of 0.015-0.062 mg/dL is approximately equivalent to 5 -20 intact red blood cells per microliter. [facility] URINALYSIS CLARITY Clear (07/22/24 8:38 PM) 07/23 02:38 :00 [facility] URINALYSIS SPECIFIC GRAVITY 1.005 1.006 - 1.030 07/23 02:38 :00 [facility] URINALYSIS COLOR Colorless (07/22/24 8:38 PM) 07/23 02:38 :00 [facility] URINALYSIS UA PH 9 *NA* (07/22/24 8:38 PM) 4.5 - 8.0 07/23 02:38 :00 [facility] URINALYSIS UA PH 9 *NA* (07/22/24 2:12 PM) 4.5 - 8.0 07/22 20:12 :00 [facility] URINALYSIS SPECIFIC GRAVITY 1.006 1.006 - 1.030 07/22 20:12 :00 [facility] URINALYSIS COLOR Straw (07/22/24 2:12 PM) 07/22 20:12 :00 [facility] URINALYSIS CLARITY Clear (07/22/24 2:12 PM) 07/22 20:12 :00 [facility] URINALYSIS UA PROTEIN Negative mg/dL 07/22 20:12 :00 [facility] URINALYSIS UA NITRITE Negative (07/22/24 2:12 PM) 07/22 20:12 :00 [facility] URINALYSIS UA LEUKOCYTES Negative (07/22/24 2:12 PM) 07/22 20:12 :00 [facility] URINALYSIS UA BLOOD Negative 17 (07/22/24 2:12 PM) 07/22 20:12 :00 Result Comment: A hemoglobin concentration of 0.015-0.062 mg/dL is approximately equivalent to 5 -20 intact red blood cells per microliter. [facility] URINALYSIS UA UROBILINOGEN Negative Yumi unit/dL 0.2 - 1.0 07/22 20:12 :00 [facility] URINALYSIS BILIRUBIN Negative (07/22/24 2:12 PM) 07/22 20:12 :00 [facility] URINALYSIS UA KETONES Negative mg/dL 07/22 20:12 :00 [facility] URINALYSIS UA GLUCOSE Negative mg/dL 07/22 20:12 :00 [facility] GENERAL CHEMISTRY Estimated GFR for peds Not calculated 07/22 08:36 :00 Interpretive Data: The estimated GFR was calculated using the B lucero Dorado equation (2009) . Reference: Pediatric GFR calculator at [employer] Website. [facility] CHEMISTRY Estimated GFR for Adults 148 mL/min/1.7 3m 07/22 08:36 :00 Interpretive Data: Changed to CKD-EPI [address] [facility] GENERAL CHEMISTRY Creatinine, standardized 0.5 mg/dL 0.7 - 1.2 07/22 08:36 :00 Interpretive Data: Cttuny-xf-pyp e transgender patients on testosterone therapy should have results assessed using the male reference range. Dkdq-ib-lvohw e transgender patients on hormone-modul ating therapy clinical judgment is advisedfor assessment. [facility] GENERAL CHEMISTRY Total Protein 5.4 g/dL 5.7 - 8.2 07/22 08:36 :00 [facility] GENERAL CHEMISTRY T Bili 0.39 mg/dL 0.30 - 1.20 07/22 08:36 :00 [facility] GENERAL CHEMISTRY Anion gap 6 mmol/L 0 - 20 07/22 08:36 :00 [facility] GENERAL CHEMISTRY CO2 35 mmol/L 20 - 31 07/22 08:36 :00 [facility] GENERAL CHEMISTRY Potassium 3.4 mmol/L 3.5 - 5.1 07/22 08:36 :00 [facility] GENERAL CHEMISTRY Sodium 143 mmol/L 136 - 145 07/22 08:36 :00 [facility] GENERAL CHEMISTRY Chloride 105 mmol/L 98 - 107 07/22 08:36 :00 [facility] GENERAL CHEMISTRY Glucose Lvl 106 mg/dL 70 - 139 07/22 08:36 :00 [facility] GENERAL CHEMISTRY Calcium 8.7 mg/dL 8.3 - 10.6 07/22 08:36 :00 [facility] GENERAL CHEMISTRY BUN <5 mg/dL 6 - 20 07/22 08:36 :00 [facility] GENERAL CHEMISTRY ALT-SGPT 185 U/L 10 - 50 07/22 08:36 :00 [facility] GENERAL CHEMISTRY Alkaline Phosphatase 97 U/L 40 - 129 07/22 08:36 :00 [facility] GENERAL CHEMISTRY Albumin 3.3 g/dL 3.4 - 5.0 07/22 08:36 :00 [facility] GENERAL CHEMISTRY AST-SGOT 89 U/L 07/22 08:36 :00 [facility] GENERAL CHEMISTRY Magnesium 1.50 mg/dL 1.60 - 2.60 07/22 08:36 :00 [facility] GENERAL CHEMISTRY Phosphorus 4.0 mg/dL 2.4 - 5.1 07/22 08:36 :00 [facility] HEMATOLOGY PROFILES RDW CV 16.2 % 11.8 - 15.6 07/22 08:36 :00 [facility] HEMATOLOGY PROFILES MCHC 32.0 g/dL 32.0 - 36.0 07/22 08:36 :00 [facility] HEMATOLOGY PROFILES MPV 10.1 8.0 - 12.0 07/22 08:36 :00 [facility] HEMATOLOGY PROFILES PLT 205 x10(9)/L 150 - 450 07/22 08:36 :00 [facility] HEMATOLOGY PROFILES RDW SD 55.7 fL 35.1 - 43.9 07/22 08:36 :00 [facility] HEMATOLOGY PROFILES HGB 9.8 g/dL 13.5 - 17.5 07/22 08:36 :00 Interpretive Data: Pxyfbg-aq-knm e transgender patients on testosterone therapy should have results assessed using the male reference range. Thyf-xx-reura e transgender patients on hormone-modul ating therapy clinical judgment is advisedfor assessment. [facility] HEMATOLOGY PROFILES RBC 3.26 x10(12)/L 4.32 - 5.72 07/22 08:36 :00 [facility] HEMATOLOGY PROFILES WBC 3.34 x10(9)/L 3.50 - 10.50 07/22 08:36 :00 [facility] HEMATOLOGY PROFILES MCH 30.1 pg 26.0 - 33.0 07/22 08:36 :00 [facility] HEMATOLOGY PROFILES MCV 93.9 fL 81.2 - 95.1 07/22 08:36 :00 [facility] HEMATOLOGY PROFILES HCT 30.6 % 38.8 - 50.0 07/22 08:36 :00 Interpretive Data: Xzzkuj-so-mls e transgender patients on testosterone therapy should have results assessed using the male reference range. Uycx-ii-rnosv e transgender patients on hormone-modul ating therapy clinical judgment is advisedfor assessment. [facility] HEMATOLOGY PROFILES Abs Basophils 0.02 x10(9)/L 0.00 - 0.30 07/22 08:36 :00 [facility] HEMATOLOGY PROFILES Abs Eosinophils 0.00 x10(9)/L 0.05 - 0.50 07/22 08:36 :00 [facility] HEMATOLOGY PROFILES Abs Monocytes 0.60 x10(9)/L 0.30 - 0.90 07/22 08:36 :00 [facility] HEMATOLOGY PROFILES Abs Immature Granulocytes 0.02 x10(9)/L 0.00 - 0.03 07/22 08:36 :00 [facility] HEMATOLOGY PROFILES % Immature Granulocytes 0.60 % 0.02 - 0.42 07/22 08:36 :00 [facility] HEMATOLOGY PROFILES % Basophils 0.6 % 07/22 08:36 :00 [facility] HEMATOLOGY PROFILES % Eosinophils 0.0 % 07/22 08:36 :00 [facility] HEMATOLOGY PROFILES % Monocytes 18.0 % 07/22 08:36 :00 [facility] HEMATOLOGY PROFILES Abs Lymphocytes 0.60 x10(9)/L 0.90 - 2.90 07/22 08:36 :00 [facility] HEMATOLOGY PROFILES Absolute Granulocytes 2.10 x10(9)/L 1.70 - 7.00 07/22 08:36 :00 [facility] HEMATOLOGY PROFILES % Neutrophils 62.8 % 07/22 08:36 :00 [facility] HEMATOLOGY PROFILES Absolute Nucleated RBCs 0.0 x10(9)/L 0.0 - 0.0 07/22 08:36 :00 Interpretive Data: Normal values not established in patients less than [address] [facility] HEMATOLOGY PROFILES % Nucleated RBCs 0.0 % 07/22 08:36 :00 [facility] HEMATOLOGY PROFILES % Lymphocytes 18.0 % 07/22 08:36 :00 [facility] THERAPEUTI C DRUGS Methotrexate Lvl 0.18 umol/L 07/22 03:10 :00 [facility] URINALYSIS UA Epithelial Cells Rare /lpf 07/22 03:10 :00 [facility] URINALYSIS UA Amorphous Crystals Present *NA* (07/21/24 9:10 PM) 07/22 03:10 :00 [facility] URINALYSIS RBC None Seen /hpf 0 - 2 07/22 03:10 :00 [facility] URINALYSIS WBC 0-3 /hpf 0 - 3 07/22 03:10 :00 [facility] GENERAL CHEMISTRY Estimated GFR for peds Not calculated 07/21 15:03 :00 Interpretive Data: The estimated GFR was calculated using the B [employer]side Dorado equation (2009) . Reference: Pediatric GFR calculator at [employer] Website. [facility] GENERAL CHEMISTRY Estimated GFR for Adults 151 mL/min/1.7 3m 07/21 15:03 :00 Interpretive Data: Changed to CKD-EPI [address] [facility] GENERAL CHEMISTRY ALT-SGPT 207 U/L 10 - 50 07/21 15:03 :00 [facility] GENERAL CHEMISTRY BUN <5 mg/dL 6 - 20 07/21 15:03 :00 [facility] GENERAL CHEMISTRY Albumin 3.4 g/dL 3.4 - 5.0 07/21 15:03 :00 [facility] GENERAL CHEMISTRY Alkaline Phosphatase 105 U/L 40 - 129 07/21 15:03 :00 [facility] GENERAL CHEMISTRY Calcium 9.2 mg/dL 8.3 - 10.6 07/21 15:03 :00 [facility] GENERAL CHEMISTRY AST-SGOT 141 U/L 07/21 15:03 :00 [facility] GENERAL CHEMISTRY Creatinine, standardized 0.4 mg/dL 0.7 - 1.2 07/21 15:03 :00 Interpretive Data: Zeaipt-wo-fxv e transgender patients on testosterone therapy should have results assessed using the male reference range. Mpar-to-idtjn e transgender patients on hormone-modul ating therapy clinical judgment is advisedfor assessment. [facility] GENERAL CHEMISTRY T Bili 0.37 mg/dL 0.30 - 1.20 07/21 15:03 :00 [facility] GENERAL CHEMISTRY Total Protein 5.6 g/dL 5.7 - 8.2 07/21 15:03 :00 [facility] GENERAL CHEMISTRY Sodium 145 mmol/L 136 - 145 07/21 15:03 :00 [facility] GENERAL CHEMISTRY Potassium 2.9 mmol/L 3.5 - 5.1 07/21 15:03 :00 [facility] GENERAL CHEMISTRY Glucose Lvl 124 mg/dL 70 - 139 07/21 15:03 :00 [facility] GENERAL CHEMISTRY Chloride 105 mmol/L 98 - 107 07/21 15:03 :00 [facility] GENERAL CHEMISTRY CO2 34 mmol/L 20 - 31 07/21 15:03 :00 [facility] GENERAL CHEMISTRY Anion gap 9 mmol/L 0 - 20 07/21 15:03 :00 [facility] HEMATOLOGY PROFILES HCT 29.1 % 38.8 - 50.0 07/21 15:03 :00 Interpretive Data: Mhbtxd-um-qxo e transgender patients on testosterone therapy should have results assessed using the male reference range. Msyd-ei-ufjvr e transgender patients on hormone-modul ating therapy clinical judgment is advisedfor assessment. [facility] HEMATOLOGY PROFILES HGB 9.4 g/dL 13.5 - 17.5 07/21 15:03 :00 Interpretive Data: Paikrt-ef-lbs e transgender patients on testosterone therapy should have results assessed using the male reference range. Eyil-ts-uusce e transgender patients on hormone-modul ating therapy clinical judgment is advisedfor assessment. [facility] HEMATOLOGY PROFILES RBC 3.05 x10(12)/L 4.32 - 5.72 07/21 15:03 :00 [facility] HEMATOLOGY PROFILES WBC 4.53 x10(9)/L 3.50 - 10.50 07/21 15:03 :00 [facility] HEMATOLOGY PROFILES MCV 95.4 fL 81.2 - 95.1 07/21 15:03 :00 [facility] HEMATOLOGY PROFILES RDW CV 16.3 % 11.8 - 15.6 07/21 15:03 :00 [facility] HEMATOLOGY PROFILES MCHC 32.3 g/dL 32.0 - 36.0 07/21 15:03 :00 [facility] HEMATOLOGY PROFILES MCH 30.8 pg 26.0 - 33.0 07/21 15:03 :00 [facility] HEMATOLOGY PROFILES PLT 189 x10(9)/L 150 - 450 07/21 15:03 :00 [facility] HEMATOLOGY PROFILES RDW SD 57.1 fL 35.1 - 43.9 07/21 15:03 :00 [facility] HEMATOLOGY PROFILES MPV 9.8 8.0 - 12.0 07/21 15:03 :00 [facility] HEMATOLOGY PROFILES Absolute Nucleated RBCs 0.0 x10(9)/L 0.0 - 0.0 07/21 15:03 :00 Interpretive Data: Normal values not established in patients less than [address] [facility] HEMATOLOGY PROFILES % Nucleated RBCs 0.0 % 07/21 15:03 :00 [facility] HEMATOLOGY PROFILES % Monocytes 21.0 % 07/21 15:03 :00 [facility] HEMATOLOGY PROFILES % Lymphocytes 13.0 % 07/21 15:03 :00 [facility] HEMATOLOGY PROFILES % Neutrophils 64.9 % 07/21 15:03 :00 [facility] HEMATOLOGY PROFILES % Immature Granulocytes 0.70 % 0.02 - 0.42 07/21 15:03 :00 [facility] HEMATOLOGY PROFILES % Basophils 0.2 % 07/21 15:03 :00 [facility] HEMATOLOGY PROFILES % Eosinophils 0.2 % 07/21 15:03 :00 [facility] HEMATOLOGY PROFILES Abs Lymphocytes 0.59 x10(9)/L 0.90 - 2.90 07/21 15:03 :00 [facility] HEMATOLOGY PROFILES Absolute Granulocytes 2.94 x10(9)/L 1.70 - 7.00 07/21 15:03 :00 [facility] HEMATOLOGY PROFILES Abs Basophils 0.01 x10(9)/L 0.00 - 0.30 07/21 15:03 :00 [facility] HEMATOLOGY PROFILES Abs Eosinophils 0.01 x10(9)/L 0.05 - 0.50 07/21 15:03 :00 [facility] HEMATOLOGY PROFILES Abs Monocytes 0.95 x10(9)/L 0.30 - 0.90 07/21 15:03 :00 [facility] HEMATOLOGY PROFILES Abs Immature Granulocytes 0.03 x10(9)/L 0.00 - 0.03 07/21 15:03 :00 [facility] THERAPEUTI C DRUGS Methotrexate Lvl 0.97 umol/L 07/21 10:10 :00 [facility] URINALYSIS RBC None Seen /hpf 0 - 2 07/21 10:10 :00 [facility] URINALYSIS UA Epithelial Cells Few /lpf 07/21 10:10 :00 [facility] URINALYSIS WBC 0-3 /hpf 0 - 3 07/21 10:10 :00 [facility] THERAPEUTI C DRUGS Methotrexate Lvl 7.69 umol/L 07/21 05:40 :00 Result Comment: Critical Result(s) Called at: 01:02:01 07/21/2024. Called to and read back by:Supriya Mays RN XG [facility] BODY FLUIDS/CSF CSF, RBC 1 /mcL 07/20 18:50 :00 Interpretive Data: Variation from manual counting may exceed 50% and approach 15-20% using automated method. [facility] BODY FLUIDS/CSF CSF, WBC 0 /mcL 07/20 18:50 :00 Interpretive Data: Variation from manual counting may exceed 50% and approach 15-20% using automated method. Pleocytosis in Adults (increased WBC count) may be graded: Mild: 5-50 WBC/uL Moderate: 51-200 WBC/uL Severe: > 200 WBC/uL CSF may have > 60% neutrophils in high-risk neonates without meningitis [facility] BODY FLUIDS/CSF CSF, Spec Appear Clear (07/20/24 1:50 PM) 07/20 18:50 :00 [facility] BODY FLUIDS/CSF CSF, Color Colorless (07/20/24 1:50 PM) 07/20 18:50 :00 [facility] BODY FLUIDS/CSF CSF Cutoff Values See [...] would require invasive sampling of normal people. [facility] BODY FLUIDS/CSF CSF, Glucose 116 mg/dL 40 - 70 07/20 18:50 :00 [facility] Cytology Non-HUMAN RESOURCES COORDINATOR Report Cytology Non-HUMAN RESOURCES COORDINATOR Report CYTOLOGY MEDICAL REPORT Patient Name: EVELINA REGALADO Specimen Number: [id number] Patient Collection Date: 07/20/2024 Submitting Physician: Heike Barrientos MD Signout Date: 07/22/2024 Other Physician( s): Luis Badillo MD ======== FINAL DIAGNOSIS CEREBROSPI NAL FLUID: Negative for Acute Leukemia. Please see previous material ([id number], [id number], [id number], [id number]) Diagnosis Comment Microscopi c descriptio n: Review [...] report (if any) were determined by the [facility] Department of Pathology. They have not [...] laboratory testing. 07/20 14:18 :00 Missing Attachment [id number] can be viewed in source system [facility] GENERAL CHEMISTRY Estimated GFR for Adults 140 mL/min/1.7 3m 07/20 10:35 :00 Interpretive Data: Changed to CKD-EPI [address] [facility] GENERAL CHEMISTRY Magnesium 1.67 mg/dL 1.60 - 2.60 07/20 10:35 :00 [facility] GENERAL CHEMISTRY Phosphorus 2.7 mg/dL 2.4 - 5.1 07/20 10:35 :00 [facility] GENERAL CHEMISTRY Uric Acid 7.0 mg/dL 3.7 - 9.2 07/20 10:35 :00 [facility] HEMATOLOGY PROFILES % Nucleated RBCs 0.0 % 07/20 10:35 :00 [facility] HEMATOLOGY PROFILES Absolute Nucleated RBCs 0.0 x10(9)/L 0.0 - 0.0 07/20 10:35 :00 Interpretive Data: Normal values not established in patients less than [address] [facility] HEMATOLOGY PROFILES % Neutrophils 90.5 % 07/20 10:35 :00 [facility] HEMATOLOGY PROFILES % Monocytes 1.6 % 07/20 10:35 :00 [facility] HEMATOLOGY PROFILES % Lymphocytes 6.2 % 07/20 10:35 :00 [facility] HEMATOLOGY PROFILES % Basophils 0.3 % 07/20 10:35 :00 [facility] HEMATOLOGY PROFILES % Eosinophils 0.0 % 07/20 10:35 :00 [facility] HEMATOLOGY PROFILES % Immature Granulocytes 1.40 % 0.02 - 0.42 07/20 10:35 :00 [facility] HEMATOLOGY PROFILES Abs Lymphocytes 0.39 x10(9)/L 0.90 - 2.90 07/20 10:35 :00 [facility] HEMATOLOGY PROFILES Absolute Granulocytes 5.73 x10(9)/L 1.70 - 7.00 07/20 10:35 :00 [facility] HEMATOLOGY PROFILES Abs Eosinophils 0.00 x10(9)/L 0.05 - 0.50 07/20 10:35 :00 [facility] HEMATOLOGY PROFILES Abs Monocytes 0.10 x10(9)/L 0.30 - 0.90 07/20 10:35 :00 [facility] HEMATOLOGY PROFILES Abs Immature Granulocytes 0.09 x10(9)/L 0.00 - 0.03 07/20 10:35 :00 [facility] HEMATOLOGY PROFILES Abs Basophils 0.02 x10(9)/L 0.00 - 0.30 07/20 10:35 :00 [facility] URINALYSIS Urine Collection Method Clean Catch UR (07/20/24 5:35 AM) 07/20 10:35 :00 [facility] GENERAL CHEMISTRY LDH 365 U/L 120 - 246 07/19 19:20 :00 [facility] GENERAL CHEMISTRY Magnesium 1.80 mg/dL 1.60 - 2.60 07/19 19:20 :00 [facility] GENERAL CHEMISTRY Uric Acid 7.2 mg/dL 3.7 - 9.2 07/19 19:20 :00 [facility] GENERAL CHEMISTRY Phosphorus 5.1 mg/dL 2.4 - 5.1 07/19 19:20 :00 [facility] XR Chest Portable XR Chest Portable XR [...] Signed on: 07/19/24 14:09 07/19 13:42 :28 [facility] GENERAL CHEMISTRY LDH 143 U/L 120 - 246 07/08 12:37 :00 [facility] GENERAL CHEMISTRY AST-SGOT 15 U/L 07/08 12:37 :00 [facility] GENERAL CHEMISTRY Albumin 3.9 g/dL 3.4 - 5.0 07/08 12:37 :00 [facility] GENERAL CHEMISTRY Alkaline Phosphatase 100 U/L 40 - 129 07/08 12:37 :00 [facility] GENERAL CHEMISTRY ALT-SGPT 22 U/L 10 - 50 07/08 12:37 :00 [facility] GENERAL CHEMISTRY BUN 7 mg/dL 6 - 20 07/08 12:37 :00 [facility] GENERAL CHEMISTRY Calcium 9.2 mg/dL 8.3 - 10.6 07/08 12:37 :00 [facility] GENERAL CHEMISTRY Glucose Lvl 89 mg/dL 70 - 139 07/08 12:37 :00 [facility] GENERAL CHEMISTRY Chloride 106 mmol/L 98 - 107 07/08 12:37 :00 [facility] GENERAL CHEMISTRY Sodium 140 mmol/L 136 - 145 07/08 12:37 :00 [facility] GENERAL CHEMISTRY Potassium 4.0 mmol/L 3.5 - 5.1 07/08 12:37 :00 [facility] GENERAL CHEMISTRY CO2 26 mmol/L 20 - 07/08 12:37 :00 [facility] GENERAL CHEMISTRY Anion gap 12 mmol/L 0 - 20 07/08 12:37 :00 [facility] GENERAL CHEMISTRY T Bili 0.26 mg/dL 0.30 - 1.20 07/08 12:37 :00 [facility] GENERAL CHEMISTRY Total Protein 5.9 g/dL 5.7 - 8.2 07/08 12:37 :00 [facility] GENERAL CHEMISTRY Creatinine, standardized 0.5 mg/dL 0.7 - 1.2 07/08 12:37 :00 Interpretive Data: Ohypam-xo-qnb e transgender patients on testosterone therapy should have results assessed using the male reference range. Wnhb-zh-rpmfa e transgender patients on hormone-modul ating therapy clinical judgment is advisedfor assessment. [facility] GENERAL CHEMISTRY Estimated GFR for Adults 144 mL/min/1.7 3m 07/08 12:37 :00 Interpretive Data: Changed to CKD-EPI 2020 on 2020. [facility] GENERAL CHEMISTRY Estimated GFR for peds Not calculated 07/08 12:37 :00 Interpretive Data: The estimated GFR was calculated using the B lucero Dorado equation (2009) . Reference: Pediatric GFR calculator at [employer] Website. [facility] HEMATOLOGY PROFILES QA Review Agree (07/08/24 7:37 AM) 07/08 12:37 :00 [facility] HEMATOLOGY PROFILES Neuts Manual 46.0 % 07/08 12:37 :00 [facility] HEMATOLOGY PROFILES Lymphocytes Manual 29.0 % 07/08 12:37 :00 [facility] HEMATOLOGY PROFILES Monocytes Manual 12.0 % 07/08 12:37 :00 [facility] HEMATOLOGY PROFILES Eosinophils Manual 10.0 % 07/08 12:37 :00 [facility] HEMATOLOGY PROFILES Basophils Manual 2.0 % 07/08 12:37 :00 [facility] HEMATOLOGY PROFILES Reactive Lymphs Manual 1.0 % 07/08 12:37 :00 [facility] HEMATOLOGY PROFILES Abs Reactive Lymphs Manual 00.01 07/08 12:37 :00 [facility] HEMATOLOGY PROFILES Absolute Neutrophils Manual 0.64 x10(9)/L 1.70 - 7.00 07/08 12:37 :00 [facility] HEMATOLOGY PROFILES Abs Lymphocytes Manual 0.41 x10(9)/L 0.90 - 2.90 07/08 12:37 :00 [facility] HEMATOLOGY PROFILES Abs Monocytes Manual 0.17 x10(9)/L 0.30 - 0.90 07/08 12:37 :00 [facility] HEMATOLOGY PROFILES Abs Eosinophils Manual 0.14 x10(9)/L 0.05 - 0.50 07/08 12:37 :00 [facility] HEMATOLOGY PROFILES Abs Basophils Manual 0.03 x10(9)/L 0.00 - 0.30 07/08 12:37 :00 [facility] HEMATOLOGY PROFILES Morphology Present *NA* (07/08/24 7:37 AM) 07/08 12:37 :00 [facility] HEMATOLOGY PROFILES Platelet Estimate Decreased *NA* (07/08/24 7:37 AM) 07/08 12:37 :00 [facility] HEMATOLOGY PROFILES Aniso 1+ (10-20%) *NA* (07/08/24 7:37 AM) 07/08 12:37 :00 [facility] HEMATOLOGY PROFILES Elliptocytes (Ovalocytes) 1+ (10-25%) *NA* (07/08/24 7:37 AM) 07/08 12:37 :00 [facility] HEMATOLOGY PROFILES Internal Review Yes (07/08/24 7:37 AM) 07/08 12:37 :00 [facility] HEMATOLOGY PROFILES WBC 1.40 x10(9)/L 3.50 - 10.50 07/08 12:37 :00 [facility] HEMATOLOGY PROFILES RBC 3.34 x10(12)/L 4.32 - 5.72 07/08 12:37 :00 [facility] HEMATOLOGY PROFILES HGB 10.0 g/dL 13.5 - 17.5 07/08 12:37 :00 Interpretive Data: Tckbim-hs-cwn e transgender patients on testosterone therapy should have results assessed using the male reference range. Tlcc-rs-czqxl e transgender patients on hormone-modul ating therapy clinical judgment is advisedfor assessment. [facility] HEMATOLOGY PROFILES HCT 31.8 % 38.8 - 50.0 07/08 12:37 :00 Interpretive Data: Unkjdw-dk-ezm e transgender patients on testosterone therapy should have results assessed using the male reference range. Zlfj-nt-oxcru e transgender patients on hormone-modul ating therapy clinical judgment is advisedfor assessment. [facility] HEMATOLOGY PROFILES MCV 95.2 fL 81.2 - 95.1 07/08 12:37 :00 [facility] HEMATOLOGY PROFILES MCH 29.9 pg 26.0 - 33.0 07/08 12:37 :00 [facility] HEMATOLOGY PROFILES MCHC 31.4 g/dL 32.0 - 36.0 07/08 12:37 :00 [facility] HEMATOLOGY PROFILES RDW CV 16.4 % 11.8 - 15.6 07/08 12:37 :00 [facility] HEMATOLOGY PROFILES RDW SD 57.7 fL 35.1 - 43.9 07/08 12:37 :00 [facility] HEMATOLOGY PROFILES PLT 90 x10(9)/L 150 - 450 07/08 12:37 :00 [facility] HEMATOLOGY PROFILES MPV 10.9 8.0 - 12.0 07/08 12:37 :00 [facility] OTHER HEMATOLOGY TESTS Reticulocyte Count 0.006 0.055 - 0.141 07/08 12:37 :00 [facility] OTHER HEMATOLOGY TESTS Reticulocyte Percent 0.2 % 1.1 - 2.7 07/08 12:37 :00 [facility] OTHER HEMATOLOGY TESTS Immature Reticulocyte Fraction 11.8 % 2.3 - 15.9 07/08 12:37 :00 [facility] OTHER HEMATOLOGY TESTS Reticulocyte Hemoglobin 36.5 pg 29.0 - 35.3 07/08 12:37 :00 [facility] Cytology Non-HUMAN RESOURCES COORDINATOR Report Cytology Non-HUMAN RESOURCES COORDINATOR Report CYTOLOGY MEDICAL REPORT Patient Name: EVELINA REGALADO Specimen Number: [id number] Patient Collection Date: 07/01/2024 Submitting Physician: Heike Barrientos MD Signout Date: 07/03/2024 Other Physician( s): Roxi Sol MD ======== FINAL DIAGNOSIS CEREBROSPI NAL FLUID: Negative for acute leukemia. See previous material ([id number], [id number], [id number], [id number], [id number], [id number], [id number], [id number], H24-145). Diagnosis Comment Review of the [...] report (if any) were determined by the [facility] Department of Pathology. They have not [...] laboratory testing. 07/01 12:55 :00 Missing Attachment [id number] can be viewed in source system [facility] GENERAL CHEMISTRY BUN 14 mg/dL 6 - 20 07/01 09:14 :00 [facility] GENERAL CHEMISTRY Calcium 9.7 mg/dL 8.3 - 10.6 07/01 09:14 :00 [facility] GENERAL CHEMISTRY Glucose Lvl 114 mg/dL 70 - 139 07/01 09:14 :00 [facility] GENERAL CHEMISTRY Chloride 107 mmol/L 98 - 107 07/01 09:14 :00 [facility] GENERAL CHEMISTRY Sodium 139 mmol/L 136 - 145 07/01 09:14 :00 [facility] GENERAL CHEMISTRY Potassium 3.9 mmol/L 3.5 - 5.1 07/01 09:14 :00 [facility] GENERAL CHEMISTRY CO2 28 mmol/L 20 - 31 07/01 09:14 :00 [facility] GENERAL CHEMISTRY Anion gap 8 mmol/L 0 - 20 07/01 09:14 :00 [facility] GENERAL CHEMISTRY Creatinine, standardized 0.5 mg/dL 0.7 - 1.2 07/01 09:14 :00 Interpretive Data: Yqwejx-zn-rue e transgender patients on testosterone therapy should have results assessed using the male reference range. Apgz-wi-fynaa e transgender patients on hormone-modul ating therapy clinical judgment is advisedfor assessment. [facility] GENERAL CHEMISTRY Estimated GFR for Adults 149 mL/min/1.7 3m 07/01 09:14 :00 Interpretive Data: Changed to CKD-EPI [address] [facility] GENERAL CHEMISTRY Estimated GFR for peds Not calculated 07/01 09:14 :00 Interpretive Data: The estimated GFR was calculated using the B lucero Dorado equation (2009) . Reference: Pediatric GFR calculator at [employer] Website. [facility] HEMATOLOGY PROFILES Morphology Previously Reviewed, results remain consistent *NA* (07/01/24 4:14 AM) 07/01 09:14 :00 [facility] HEMATOLOGY PROFILES % Nucleated RBCs 0.0 % 07/01 09:14 :00 [facility] HEMATOLOGY PROFILES Absolute Nucleated RBCs 0.0 x10(9)/L 0.0 - 0.0 07/01 09:14 :00 Interpretive Data: Normal values not established in patients less than [address] [facility] HEMATOLOGY PROFILES % Neutrophils 89.3 % 07/01 09:14 :00 [facility] HEMATOLOGY PROFILES % Lymphocytes 2.4 % 07/01 09:14 :00 [facility] HEMATOLOGY PROFILES % Monocytes 7.4 % 07/01 09:14 :00 [facility] HEMATOLOGY PROFILES % Eosinophils 0.0 % 07/01 09:14 :00 [facility] HEMATOLOGY PROFILES % Basophils 0.0 % 07/01 09:14 :00 [facility] HEMATOLOGY PROFILES % Immature Granulocytes 0.90 % 0.02 - 0.42 07/01 09:14 :00 [facility] HEMATOLOGY PROFILES Absolute Granulocytes 6.26 x10(9)/L 1.70 - 7.00 07/01 09:14 :00 [facility] HEMATOLOGY PROFILES Abs Lymphocytes 0.17 x10(9)/L 0.90 - 2.90 07/01 09:14 :00 [facility] HEMATOLOGY PROFILES Abs Monocytes 0.52 x10(9)/L 0.30 - 0.90 07/01 09:14 :00 [facility] HEMATOLOGY PROFILES Abs Eosinophils 0.00 x10(9)/L 0.05 - 0.50 07/01 09:14 :00 [facility] HEMATOLOGY PROFILES Abs Basophils 0.00 x10(9)/L 0.00 - 0.30 07/01 09:14 :00 [facility] HEMATOLOGY PROFILES Abs Immature Granulocytes 0.06 x10(9)/L 0.00 - 0.03 07/01 09:14 :00 [facility] HEMATOLOGY PROFILES WBC 7.01 x10(9)/L 3.50 - 10.50 07/01 09:14 :00 [facility] HEMATOLOGY PROFILES RBC 3.68 x10(12)/L 4.32 - 5.72 07/01 09:14 :00 [facility] HEMATOLOGY PROFILES HGB 11.3 g/dL 13.5 - 17.5 07/01 09:14 :00 Interpretive Data: Ipjosm-gl-llh e transgender patients on testosterone therapy should have results assessed using the male reference range. Fnmm-nj-cjaxh e transgender patients on hormone-modul ating therapy clinical judgment is advisedfor assessment. [facility] HEMATOLOGY PROFILES HCT 34.6 % 38.8 - 50.0 07/01 09:14 :00 Interpretive Data: Clwauc-go-jug e transgender patients on testosterone therapy should have results assessed using the male reference range. Knuq-cx-gefbe e transgender patients on hormone-modul ating therapy clinical judgment is advisedfor assessment. [facility] HEMATOLOGY PROFILES MCV 94.0 fL 81.2 - 95.1 07/01 09:14 :00 [facility] HEMATOLOGY PROFILES MCH 30.7 pg 26.0 - 33.0 07/01 09:14 :00 [facility] HEMATOLOGY PROFILES MCHC 32.7 g/dL 32.0 - 36.0 07/01 09:14 :00 [facility] HEMATOLOGY PROFILES RDW CV 17.1 % 11.8 - 15.6 07/01 09:14 :00 [facility] HEMATOLOGY PROFILES RDW SD 59.4 fL 35.1 - 43.9 07/01 09:14 :00 [facility] HEMATOLOGY PROFILES PLT 175 x10(9)/L 150 - 450 07/01 09:14 :00 [facility] HEMATOLOGY PROFILES MPV 10.7 8.0 - 12.0 07/01 09:14 :00 [facility] GENERAL CHEMISTRY AST-SGOT 20 U/L 06/30 09:12 :00 [facility] GENERAL CHEMISTRY Albumin 3.7 g/dL 3.4 - 5.0 06/30 09:12 :00 [facility] GENERAL CHEMISTRY Alkaline Phosphatase 77 U/L 40 - 129 06/30 09:12 :00 [facility] GENERAL CHEMISTRY ALT-SGPT 27 U/L 10 - 50 06/30 09:12 :00 [facility] GENERAL CHEMISTRY BUN 13 mg/dL 6 - 20 06/30 09:12 :00 [facility] GENERAL CHEMISTRY Calcium 10.1 mg/dL 8.3 - 10.6 06/30 09:12 :00 [facility] GENERAL CHEMISTRY Glucose Lvl 126 mg/dL 70 - 139 06/30 09:12 :00 [facility] GENERAL CHEMISTRY Chloride 106 mmol/L 98 - 107 06/30 09:12 :00 [facility] GENERAL CHEMISTRY Sodium 142 mmol/L 136 - 145 06/30 09:12 :00 [facility] GENERAL CHEMISTRY Potassium 4.0 mmol/L 3.5 - 5.1 06/30 09:12 :00 [facility] GENERAL CHEMISTRY CO2 27 mmol/L 20 - 31 06/30 09:12 :00 [facility] GENERAL CHEMISTRY Anion gap 13 mmol/L 0 - 20 06/30 09:12 :00 [facility] GENERAL CHEMISTRY T Bili 0.42 mg/dL 0.30 - 1.20 06/30 09:12 :00 [facility] GENERAL CHEMISTRY Total Protein 6.3 g/dL 5.7 - 8.2 06/30 09:12 :00 [facility] GENERAL CHEMISTRY Creatinine, standardized 0.6 mg/dL 0.7 - 1.2 06/30 09:12 :00 Interpretive Data: Qdwogj-nz-kwv e transgender patients on testosterone therapy should have results assessed using the male reference range. Yibs-nx-xtgvn e transgender patients on hormone-modul ating therapy clinical judgment is advisedfor assessment. [facility] GENERAL CHEMISTRY Estimated GFR for Adults 141 mL/min/1.7 3m 06/30 09:12 :00 Interpretive Data: Changed to CKD-EPI [address] [facility] GENERAL CHEMISTRY Estimated GFR for peds Not calculated 06/30 09:12 :00 Interpretive Data: The estimated GFR was calculated using the B lucero Dorado equation (2009) . Reference: Pediatric GFR calculator at [employer] Website. [facility] HEMATOLOGY PROFILES WBC 9.32 x10(9)/L 3.50 - 10.50 06/30 09:12 :00 [facility] HEMATOLOGY PROFILES RBC 3.60 x10(12)/L 4.32 - 5.72 06/30 09:12 :00 [facility] HEMATOLOGY PROFILES HGB 11.0 g/dL 13.5 - 17.5 06/30 09:12 :00 Interpretive Data: Xomgvn-ri-keq e transgender patients on testosterone therapy should have results assessed using the male reference range. Skph-px-kpfkl e transgender patients on hormone-modul ating therapy clinical judgment is advisedfor assessment. [facility] HEMATOLOGY PROFILES HCT 34.0 % 38.8 - 50.0 06/30 09:12 :00 Interpretive Data: Orlwfe-si-ysm e transgender patients on testosterone therapy should have results assessed using the male reference range. Nbni-sf-bzuom e transgender patients on hormone-modul ating therapy clinical judgment is advisedfor assessment. [facility] HEMATOLOGY PROFILES MCV 94.4 fL 81.2 - 95.1 06/30 09:12 :00 [facility] HEMATOLOGY PROFILES MCH 30.6 pg 26.0 - 33.0 06/30 09:12 :00 [facility] HEMATOLOGY PROFILES MCHC 32.4 g/dL 32.0 - 36.0 06/30 09:12 :00 [facility] HEMATOLOGY PROFILES RDW CV 17.8 % 11.8 - 15.6 06/30 09:12 :00 [facility] HEMATOLOGY PROFILES RDW SD 62.2 fL 35.1 - 43.9 06/30 09:12 :00 [facility] HEMATOLOGY PROFILES PLT 194 x10(9)/L 150 - 450 06/30 09:12 :00 [facility] HEMATOLOGY PROFILES MPV 10.6 8.0 - 12.0 06/30 09:12 :00 [facility] HEMATOLOGY PROFILES % Nucleated RBCs 0.0 % 06/30 09:12 :00 [facility] HEMATOLOGY PROFILES Absolute Nucleated RBCs 0.0 x10(9)/L 0.0 - 0.0 06/30 09:12 :00 Interpretive Data: Normal values not established in patients less than [address] [facility] HEMATOLOGY PROFILES % Neutrophils 92.3 % 06/30 09:12 :00 [facility] HEMATOLOGY PROFILES % Lymphocytes 3.1 % 06/30 09:12 :00 [facility] HEMATOLOGY PROFILES % Monocytes 3.1 % 06/30 09:12 :00 [facility] HEMATOLOGY PROFILES % Eosinophils 0.0 % 06/30 09:12 :00 [facility] HEMATOLOGY PROFILES % Basophils 0.1 % 06/30 09:12 :00 [facility] HEMATOLOGY PROFILES % Immature Granulocytes 1.40 % 0.02 - 0.42 06/30 09:12 :00 [facility] HEMATOLOGY PROFILES Absolute Granulocytes 8.60 x10(9)/L 1.70 - 7.00 06/30 09:12 :00 [facility] HEMATOLOGY PROFILES Abs Lymphocytes 0.29 x10(9)/L 0.90 - 2.90 06/30 09:12 :00 [facility] HEMATOLOGY PROFILES Abs Monocytes 0.29 x10(9)/L 0.30 - 0.90 06/30 09:12 :00 [facility] HEMATOLOGY PROFILES Abs Eosinophils 0.00 x10(9)/L 0.05 - 0.50 06/30 09:12 :00 [facility] HEMATOLOGY PROFILES Abs Basophils 0.01 x10(9)/L 0.00 - 0.30 06/30 09:12 :00 [facility] HEMATOLOGY PROFILES Abs Immature Granulocytes 0.13 x10(9)/L 0.00 - 0.03 06/30 09:12 :00 [facility] HEMATOLOGY PROFILES Morphology Previously Reviewed, results remain consistent *NA* (06/30/24 4:12 AM) 06/30 09:12 :00 [facility] GENERAL CHEMISTRY AST-SGOT 24 U/L 06/29 10:42 :00 [facility] GENERAL CHEMISTRY Albumin 3.8 g/dL 3.4 - 5.0 06/29 10:42 :00 [facility] GENERAL CHEMISTRY Alkaline Phosphatase 77 U/L 40 - 129 06/29 10:42 :00 [facility] GENERAL CHEMISTRY ALT-SGPT 29 U/L 10 - 50 06/29 10:42 :00 [facility] GENERAL CHEMISTRY BUN 11 mg/dL 6 - 20 06/29 10:42 :00 [facility] GENERAL CHEMISTRY Calcium 10.4 mg/dL 8.3 - 10.6 06/29 10:42 :00 [facility] GENERAL CHEMISTRY Glucose Lvl 135 mg/dL 70 - 139 06/29 10:42 :00 [facility] GENERAL CHEMISTRY Chloride 106 mmol/L 98 - 107 06/29 10:42 :00 [facility] GENERAL CHEMISTRY Sodium 141 mmol/L 136 - 145 06/29 10:42 :00 [facility] GENERAL CHEMISTRY Potassium 4.0 mmol/L 3.5 - 5.1 06/29 10:42 :00 [facility] GENERAL CHEMISTRY CO2 27 mmol/L 20 - 31 06/29 10:42 :00 [facility] GENERAL CHEMISTRY Anion gap 12 mmol/L 0 - 20 06/29 10:42 :00 [facility] GENERAL CHEMISTRY T Bili 0.37 mg/dL 0.30 - 1.20 06/29 10:42 :00 [facility] GENERAL CHEMISTRY Total Protein 6.5 g/dL 5.7 - 8.2 06/29 10:42 :00 [facility] GENERAL CHEMISTRY Creatinine, standardized 0.5 mg/dL 0.7 - 1.2 06/29 10:42 :00 Interpretive Data: Mhcckl-tw-xmo e transgender patients on testosterone therapy should have results assessed using the male reference range. Lxyx-qv-cwzkz e transgender patients on hormone-modul ating therapy clinical judgment is advisedfor assessment. [facility] GENERAL CHEMISTRY Estimated GFR for Adults 143 mL/min/1.7 3m 06/29 10:42 :00 Interpretive Data: Changed to CKD-EPI [address] [facility] GENERAL CHEMISTRY Estimated GFR for peds Not calculated 06/29 10:42 :00 Interpretive Data: The estimated GFR was calculated using the B lucero Dorado equation (2009) . Reference: Pediatric GFR calculator at [employer] Website. [facility] HEMATOLOGY PROFILES % Nucleated RBCs 0.0 % 06/29 10:42 :00 [facility] HEMATOLOGY PROFILES Absolute Nucleated RBCs 0.0 x10(9)/L 0.0 - 0.0 06/29 10:42 :00 Interpretive Data: Normal values not established in patients less than [address] [facility] HEMATOLOGY PROFILES % Neutrophils 90.8 % 06/29 10:42 :00 [facility] HEMATOLOGY PROFILES % Lymphocytes 3.9 % 06/29 10:42 :00 [facility] HEMATOLOGY PROFILES % Monocytes 3.5 % 06/29 10:42 :00 [facility] HEMATOLOGY PROFILES % Eosinophils 0.0 % 06/29 10:42 :00 [facility] HEMATOLOGY PROFILES % Basophils 0.1 % 06/29 10:42 :00 [facility] HEMATOLOGY PROFILES % Immature Granulocytes 1.70 % 0.02 - 0.42 06/29 10:42 :00 [facility] HEMATOLOGY PROFILES Absolute Granulocytes 8.60 x10(9)/L 1.70 - 7.00 06/29 10:42 :00 [facility] HEMATOLOGY PROFILES Abs Lymphocytes 0.37 x10(9)/L 0.90 - 2.90 06/29 10:42 :00 [facility] HEMATOLOGY PROFILES Abs Monocytes 0.33 x10(9)/L 0.30 - 0.90 06/29 10:42 :00 [facility] HEMATOLOGY PROFILES Abs Eosinophils 0.00 x10(9)/L 0.05 - 0.50 06/29 10:42 :00 [facility] HEMATOLOGY PROFILES Abs Basophils 0.01 x10(9)/L 0.00 - 0.30 06/29 10:42 :00 [facility] HEMATOLOGY PROFILES Abs Immature Granulocytes 0.16 x10(9)/L 0.00 - 0.03 06/29 10:42 :00 [facility] HEMATOLOGY PROFILES Morphology Previously Reviewed, results remain consistent *NA* (06/29/24 5:42 AM) 06/29 10:42 :00 [facility] HEMATOLOGY PROFILES WBC 9.47 x10(9)/L 3.50 - 10.50 06/29 10:42 :00 [facility] HEMATOLOGY PROFILES RBC 3.52 x10(12)/L 4.32 - 5.72 06/29 10:42 :00 [facility] HEMATOLOGY PROFILES HGB 10.8 g/dL 13.5 - 17.5 06/29 10:42 :00 Interpretive Data: Ocalcg-ev-mfx e transgender patients on testosterone therapy should have results assessed using the male reference range. Vwwa-ly-xupcf e transgender patients on hormone-modul ating therapy clinical judgment is advisedfor assessment. [facility] HEMATOLOGY PROFILES HCT 32.8 % 38.8 - 50.0 06/29 10:42 :00 Interpretive Data: Aqaubn-sg-rwv e transgender patients on testosterone therapy should have results assessed using the male reference range. Bcnv-hz-hbtno e transgender patients on hormone-modul ating therapy clinical judgment is advisedfor assessment. [facility] HEMATOLOGY PROFILES MCV 93.2 fL 81.2 - 95.1 06/29 10:42 :00 [facility] HEMATOLOGY PROFILES MCH 30.7 pg 26.0 - 33.0 06/29 10:42 :00 [facility] HEMATOLOGY PROFILES MCHC 32.9 g/dL 32.0 - 36.0 06/29 10:42 :00 [facility] HEMATOLOGY PROFILES RDW CV 18.2 % 11.8 - 15.6 06/29 10:42 :00 [facility] HEMATOLOGY PROFILES RDW SD 62.3 fL 35.1 - 43.9 06/29 10:42 :00 [facility] HEMATOLOGY PROFILES PLT 222 x10(9)/L 150 - 450 06/29 10:42 :00 [facility] HEMATOLOGY PROFILES MPV 10.6 8.0 - 12.0 06/29 10:42 :00 [facility] BODY FLUIDS/CSF CSF, Protein 13 mg/dL 15 - 45 06/28 18:49 :00 [facility] BODY FLUIDS/CSF CSF, Glucose 109 mg/dL 40 - 70 06/28 18:49 :00 [facility] BODY FLUIDS/CSF CSF Xanthochromi c Absent (06/28/24 1:49 PM) 06/28 18:49 :00 [facility] BODY FLUIDS/CSF CSF Cutoff Values See [...] would require invasive sampling of normal people. [facility] BODY FLUIDS/CSF CSF, Color Colorless (06/28/24 1:49 PM) 06/28 18:49 :00 [facility] BODY FLUIDS/CSF CSF, Spec Appear Clear (06/28/24 1:49 PM) 06/28 18:49 :00 [facility] BODY FLUIDS/CSF CSF, WBC 0 /mcL 06/28 18:49 :00 Interpretive Data: Variation from manual counting may exceed 50% and approach 15-20% using automated method. Pleocytosis in Adults (increased WBC count) may be graded: Mild: 5-50 WBC/uL Moderate: 51-200 WBC/uL Severe: > 200 WBC/uL CSF may have > 60% neutrophils in high-risk neonates without meningitis [facility] BODY FLUIDS/CSF CSF, RBC 1 /mcL 06/28 18:49 :00 Interpretive Data: Variation from manual counting may exceed 50% and approach 15-20% using automated method. [facility] Cytology Non-HUMAN RESOURCES COORDINATOR Report Cytology Non-HUMAN RESOURCES COORDINATOR Report CYTOLOGY MEDICAL REPORT Patient Name: EVELINA REGALADO Specimen Number: [id number] Patient Collection Date: 06/28/2024 Submitting Physician: Wm York M.D. Signout Date: 07/02/2024 Other Physician( s): Aleisha Gordon MD ======== FINAL DIAGNOSIS CEREBROSPI NAL FLUID: Negative for leukemia. See previous materials ([id number], [id number], [id number], [id number], [id number], [id number], [id number], [id number]). Diagnosis Comment Review of the Luo stained [...] report (if any) were determined by the [facility] Department of Pathology. They have not [...] laboratory testing. 06/28 14:07 :00 Missing Attachment [id number].PDF can be viewed in source system [facility] GENERAL CHEMISTRY AST-SGOT 28 U/L 06/28 09:22 :00 [facility] GENERAL CHEMISTRY Albumin 3.9 g/dL 3.4 - 5.0 06/28 09:22 :00 [facility] CHEMISTRY Alkaline Phosphatase 86 U/L 40 - 129 06/28 09:22 :00 [facility] CHEMISTRY ALT-SGPT 29 U/L 10 - 50 06/28 09:22 :00 [facility] CHEMISTRY BUN 12 mg/dL 6 - 20 06/28 09:22 :00 [facility] GENERAL CHEMISTRY Calcium 10.5 mg/dL 8.3 - 10.6 06/28 09:22 :00 [facility] GENERAL CHEMISTRY Glucose Lvl 138 mg/dL 70 - 139 06/28 09:22 :00 [facility] GENERAL CHEMISTRY Chloride 104 mmol/L 98 - 107 06/28 09:22 :00 [facility] GENERAL CHEMISTRY Sodium 139 mmol/L 136 - 145 06/28 09:22 :00 [facility] GENERAL CHEMISTRY Potassium 4.1 mmol/L 3.5 - 5.1 06/28 09:22 :00 [facility] GENERAL CHEMISTRY CO2 24 mmol/L 20 - 31 06/28 09:22 :00 [facility] CHEMISTRY Anion gap 15 mmol/L 0 - 20 06/28 09:22 :00 [facility] GENERAL CHEMISTRY T Bili 0.43 mg/dL 0.30 - 1.20 06/28 09:22 :00 [facility] CHEMISTRY Total Protein 6.6 g/dL 5.7 - 8.2 06/28 09:22 :00 [facility] GENERAL CHEMISTRY Creatinine, standardized 0.6 mg/dL 0.7 - 1.2 06/28 09:22 :00 Interpretive Data: Jbgnmz-zd-mdh e transgender patients on testosterone therapy should have results assessed using the male reference range. Mnqr-cz-jlxzf e transgender patients on hormone-modul ating therapy clinical judgment is advisedfor assessment. [facility] GENERAL CHEMISTRY Estimated GFR for Adults 140 mL/min/1.7 3m 06/28 09:22 :00 Interpretive Data: Changed to CKD-EPI [address] [facility] GENERAL CHEMISTRY Estimated GFR for peds Not calculated 06/28 09:22 :00 Interpretive Data: The estimated GFR was calculated using the [employer] Dorado equation (2009) . Reference: Pediatric GFR calculator at [employer] Website. [facility] HEMATOLOGY PROFILES WBC 13.23 x10(9)/L 3.50 - 10.50 06/28 09:22 :00 [facility] HEMATOLOGY PROFILES RBC 3.78 x10(12)/L 4.32 - 5.72 06/28 09:22 :00 [facility] HEMATOLOGY PROFILES HGB 11.6 g/dL 13.5 - 17.5 06/28 09:22 :00 Interpretive Data: Vdxlgh-ai-hjm e transgender patients on testosterone therapy should have results assessed using the male reference range. Poff-mj-jmdpe e transgender patients on hormone-modul ating therapy clinical judgment is advisedfor assessment. [facility] HEMATOLOGY PROFILES HCT 34.9 % 38.8 - 50.0 06/28 09:22 :00 Interpretive Data: Gztpao-dy-gri e transgender patients on testosterone therapy should have results assessed using the male reference range. Ekjh-yt-pwajd e transgender patients on hormone-modul ating therapy clinical judgment is advisedfor assessment. [facility] HEMATOLOGY PROFILES MCV 92.3 fL 81.2 - 95.1 06/28 09:22 :00 [facility] HEMATOLOGY PROFILES MCH 30.7 pg 26.0 - 33.0 06/28 09:22 :00 [facility] HEMATOLOGY PROFILES MCHC 33.2 g/dL 32.0 - 36.0 06/28 09:22 :00 [facility] HEMATOLOGY PROFILES RDW CV 17.6 % 11.8 - 15.6 06/28 09:22 :00 [facility] HEMATOLOGY PROFILES RDW SD 60.3 fL 35.1 - 43.9 06/28 09:22 :00 [facility] HEMATOLOGY PROFILES PLT 264 x10(9)/L 150 - 450 06/28 09:22 :00 [facility] HEMATOLOGY PROFILES MPV 10.5 8.0 - 12.0 06/28 09:22 :00 [facility] HEMATOLOGY PROFILES Neuts Manual 91.0 % 06/28 09:22 :00 [facility] HEMATOLOGY PROFILES Lymphocytes Manual 7.0 % 06/28 09:22 :00 [facility] HEMATOLOGY PROFILES Monocytes Manual 2.0 % 06/28 09:22 :00 [facility] HEMATOLOGY PROFILES Absolute Neutrophils Manual 12.04 x10(9)/L 1.70 - 7.00 06/28 09:22 :00 [facility] HEMATOLOGY PROFILES Abs Lymphocytes Manual 0.93 x10(9)/L 0.90 - 2.90 06/28 09:22 :00 [facility] HEMATOLOGY PROFILES Abs Monocytes Manual 0.26 x10(9)/L 0.30 - 0.90 06/28 09:22 :00 [facility] HEMATOLOGY PROFILES Morphology Present *NA* (06/28/24 4:22 AM) 06/28 09:22 :00 [facility] HEMATOLOGY PROFILES Platelet Estimate Adequate *NA* (06/28/24 4:22 AM) 06/28 09:22 :00 [facility] HEMATOLOGY PROFILES Aniso 1+ (10-20%) *NA* (06/28/24 4:22 AM) 06/28 09:22 :00 [facility] HEMATOLOGY PROFILES Elliptocytes (Ovalocytes) 1+ (10-25%) *NA* (06/28/24 4:22 AM) 06/28 09:22 :00 [facility] HEMATOLOGY PROFILES Schistocytes 1+ (Rare-3%) *NA* (06/28/24 4:22 AM) 06/28 09:22 :00 [facility] GENERAL CHEMISTRY AST-SGOT 30 U/L 06/27 20:37 :00 [facility] GENERAL CHEMISTRY Albumin 3.8 g/dL 3.4 - 5.0 06/27 20:37 :00 [facility] GENERAL CHEMISTRY Alkaline Phosphatase 87 U/L 40 - 129 06/27 20:37 :00 [facility] GENERAL CHEMISTRY ALT-SGPT 28 U/L 10 - 50 06/27 20:37 :00 [facility] GENERAL CHEMISTRY T Bili 0.36 mg/dL 0.30 - 1.20 06/27 20:37 :00 [facility] GENERAL CHEMISTRY Total Protein 6.3 g/dL 5.7 - 8.2 06/27 20:37 :00 [facility] GENERAL CHEMISTRY LDH 241 U/L 120 - 246 06/27 20:37 :00 [facility] HEMATOLOGY PROFILES % Nucleated RBCs 0.0 % 06/27 20:37 :00 [facility] HEMATOLOGY PROFILES Absolute Nucleated RBCs 0.0 x10(9)/L 0.0 - 0.0 06/27 20:37 :00 Interpretive Data: Normal values not established in patients less than [address] [facility] HEMATOLOGY PROFILES % Neutrophils 57.2 % 06/27 20:37 :00 [facility] HEMATOLOGY PROFILES % Lymphocytes 15.0 % 06/27 20:37 :00 [facility] HEMATOLOGY PROFILES % Monocytes 24.4 % 06/27 20:37 :00 [facility] HEMATOLOGY PROFILES % Eosinophils 0.5 % 06/27 20:37 :00 [facility] HEMATOLOGY PROFILES % Basophils 1.2 % 06/27 20:37 :00 [facility] HEMATOLOGY PROFILES % Immature Granulocytes 1.70 % 0.02 - 0.42 06/27 20:37 :00 [facility] HEMATOLOGY PROFILES Absolute Granulocytes 3.31 x10(9)/L 1.70 - 7.00 06/27 20:37 :00 [facility] HEMATOLOGY PROFILES Abs Lymphocytes 0.87 x10(9)/L 0.90 - 2.90 06/27 20:37 :00 [facility] HEMATOLOGY PROFILES Abs Monocytes 1.41 x10(9)/L 0.30 - 0.90 06/27 20:37 :00 [facility] HEMATOLOGY PROFILES Abs Eosinophils 0.03 x10(9)/L 0.05 - 0.50 06/27 20:37 :00 [facility] HEMATOLOGY PROFILES Abs Basophils 0.07 x10(9)/L 0.00 - 0.30 06/27 20:37 :00 [facility] HEMATOLOGY PROFILES Abs Immature Granulocytes 0.10 x10(9)/L 0.00 - 0.03 06/27 20:37 :00 [facility] OTHER HEMATOLOGY TESTS Reticulocyte Count 0.091 0.055 - 0.141 06/27 20:37 :00 [facility] OTHER HEMATOLOGY TESTS Reticulocyte Percent 2.6 % 1.1 - 2.7 06/27 20:37 :00 [facility] OTHER HEMATOLOGY TESTS Immature Reticulocyte Fraction 21.3 % 2.3 - 15.9 06/27 20:37 :00 [facility] OTHER HEMATOLOGY TESTS Reticulocyte Hemoglobin 32.9 pg 29.0 - 35.3 06/27 20:37 :00 [facility] GENERAL CHEMISTRY AST-SGOT 39 U/L 06/04 08:54 :00 [facility] GENERAL CHEMISTRY Albumin 3.6 g/dL 3.4 - 5.0 06/04 08:54 :00 [facility] CHEMISTRY Alkaline Phosphatase 156 U/L 40 - 129 06/04 08:54 :00 [facility] CHEMISTRY ALT-SGPT 85 U/L 10 - 50 06/04 08:54 :00 [facility] GENERAL CHEMISTRY BUN 14 mg/dL 6 - 20 06/04 08:54 :00 [facility] CHEMISTRY Calcium 10.0 mg/dL 8.3 - 10.6 06/04 08:54 :00 [facility] GENERAL CHEMISTRY Glucose Lvl 133 mg/dL 70 - 139 06/04 08:54 :00 [facility] GENERAL CHEMISTRY Chloride 102 mmol/L 98 - 107 06/04 08:54 :00 [facility] GENERAL CHEMISTRY Sodium 136 mmol/L 136 - 145 06/04 08:54 :00 [facility] GENERAL CHEMISTRY Potassium 4.2 mmol/L 3.5 - 5.1 06/04 08:54 :00 [facility] GENERAL CHEMISTRY CO2 25 mmol/L 20 - 31 06/04 08:54 :00 [facility] GENERAL CHEMISTRY Anion gap 13 mmol/L 0 - 20 06/04 08:54 :00 [facility] GENERAL CHEMISTRY T Bili 0.83 mg/dL 0.30 - 1.20 06/04 08:54 :00 [facility] GENERAL CHEMISTRY Total Protein 6.2 g/dL 5.7 - 8.2 06/04 08:54 :00 [facility] GENERAL CHEMISTRY Creatinine, standardized 0.5 mg/dL 0.7 - 1.2 06/04 08:54 :00 Interpretive Data: Aoamza-ot-bml e transgender patients on testosterone therapy should have results assessed using the male reference range. Hmrd-ud-kwmac e transgender patients on hormone-modul ating therapy clinical judgment is advisedfor assessment. [facility] GENERAL CHEMISTRY Estimated GFR for Adults 147 mL/min/1.7 3m 06/04 08:54 :00 Interpretive Data: Changed to CKD-EPI [address] [facility] GENERAL CHEMISTRY Estimated GFR for peds Not calculated 06/04 08:54 :00 Interpretive Data: The estimated GFR was calculated using the [employer] Dorado equation (2009) . Reference: Pediatric GFR calculator at [employer] Website. [facility] HEMATOLOGY PROFILES % Nucleated RBCs 0.0 % 06/04 08:54 :00 [facility] HEMATOLOGY PROFILES Absolute Nucleated RBCs 0.0 x10(9)/L 0.0 - 0.0 06/04 08:54 :00 Interpretive Data: Normal values not established in patients less than [address] [facility] HEMATOLOGY PROFILES % Neutrophils 91.7 % 06/04 08:54 :00 [facility] HEMATOLOGY PROFILES % Lymphocytes 0.8 % 06/04 08:54 :00 [facility] HEMATOLOGY PROFILES % Monocytes 0.2 % 06/04 08:54 :00 [facility] HEMATOLOGY PROFILES % Eosinophils 0.0 % 06/04 08:54 :00 [facility] HEMATOLOGY PROFILES % Basophils 0.2 % 06/04 08:54 :00 [facility] HEMATOLOGY PROFILES % Immature Granulocytes 7.10 % 0.02 - 0.42 06/04 08:54 :00 [facility] HEMATOLOGY PROFILES Absolute Granulocytes 22.19 x10(9)/L 1.70 - 7.00 06/04 08:54 :00 [facility] HEMATOLOGY PROFILES Abs Lymphocytes 0.20 x10(9)/L 0.90 - 2.90 06/04 08:54 :00 [facility] HEMATOLOGY PROFILES Abs Monocytes 0.06 x10(9)/L 0.30 - 0.90 06/04 08:54 :00 [facility] HEMATOLOGY PROFILES Abs Eosinophils 0.00 x10(9)/L 0.05 - 0.50 06/04 08:54 :00 [facility] HEMATOLOGY PROFILES Abs Basophils 0.04 x10(9)/L 0.00 - 0.30 06/04 08:54 :00 [facility] HEMATOLOGY PROFILES Abs Immature Granulocytes 1.73 x10(9)/L 0.00 - 0.03 06/04 08:54 :00 [facility] HEMATOLOGY PROFILES Morphology Present *NA* (06/04/24 3:54 AM) 06/04 08:54 :00 [facility] HEMATOLOGY PROFILES Platelet Estimate Adequate *NA* (06/04/24 3:54 AM) 06/04 08:54 :00 [facility] HEMATOLOGY PROFILES Aniso 1+ (10-20%) *NA* (06/04/24 3:54 AM) 06/04 08:54 :00 [facility] HEMATOLOGY PROFILES Elliptocytes (Ovalocytes) 1+ (10-25%) *NA* (06/04/24 3:54 AM) 06/04 08:54 :00 [facility] HEMATOLOGY PROFILES Schistocytes 1+ (Rare-3%) *NA* (06/04/24 3:54 AM) 06/04 08:54 :00 [facility] HEMATOLOGY PROFILES WBC 24.65 x10(9)/L 3.50 - 10.50 06/04 08:54 :00 [facility] HEMATOLOGY PROFILES RBC 2.87 x10(12)/L 4.32 - 5.72 06/04 08:54 :00 [facility] HEMATOLOGY PROFILES HGB 8.4 g/dL 13.5 - 17.5 06/04 08:54 :00 Interpretive Data: Ncopnp-df-yux e transgender patients on testosterone therapy should have results assessed using the male reference range. Krru-cx-eeeyu e transgender patients on hormone-modul ating therapy clinical judgment is advisedfor assessment. [facility] HEMATOLOGY PROFILES HCT 25.8 % 38.8 - 50.0 06/04 08:54 :00 Interpretive Data: Ddkcwh-zi-mkl e transgender patients on testosterone therapy should have results assessed using the male reference range. Qlek-hu-aajze e transgender patients on hormone-modul ating therapy clinical judgment is advisedfor assessment. [facility] HEMATOLOGY PROFILES MCV 89.9 fL 81.2 - 95.1 06/04 08:54 :00 [facility] HEMATOLOGY PROFILES MCH 29.3 pg 26.0 - 33.0 06/04 08:54 :00 [facility] HEMATOLOGY PROFILES MCHC 32.6 g/dL 32.0 - 36.0 06/04 08:54 :00 [facility] HEMATOLOGY PROFILES RDW CV 17.2 % 11.8 - 15.6 06/04 08:54 :00 [facility] HEMATOLOGY PROFILES RDW SD 56.5 fL 35.1 - 43.9 06/04 08:54 :00 [facility] HEMATOLOGY PROFILES PLT 107 x10(9)/L 150 - 450 06/04 08:54 :00 [facility] HEMATOLOGY PROFILES MPV 9.4 8.0 - 12.0 06/04 08:54 :00 [facility] BODY FLUIDS/CSF CSF Tube Number Syringe (06/03/24 2:11 PM) 06/03 19:11 :00 [facility] BODY FLUIDS/CSF CSF Xanthochromi c Absent (06/03/24 2:11 PM) 06/03 19:11 :00 [facility] BODY FLUIDS/CSF CSF Cutoff Values See [...] would require invasive sampling of normal people. [facility] BODY FLUIDS/CSF CSF, Color Colorless (06/03/24 2:11 PM) 06/03 19:11 :00 [facility] BODY FLUIDS/CSF CSF, Spec Appear Clear (06/03/24 2:11 PM) 06/03 19:11 :00 [facility] BODY FLUIDS/CSF CSF, WBC 2 /mcL 06/03 19:11 :00 Interpretive Data: Variation from manual counting may exceed 50% and approach 15-20% using automated method. Pleocytosis in Adults (increased WBC count) may be graded: Mild: 5-50 WBC/uL Moderate: 51-200 WBC/uL Severe: > 200 WBC/uL CSF may have > 60% neutrophils in high-risk neonates without meningitis [facility] BODY FLUIDS/CSF CSF, RBC 224 /mcL 06/03 19:11 :00 Interpretive Data: Variation from manual counting may exceed 50% and approach 15-20% using automated method. [facility] SPECIAL HEMATOLOGY TESTS Specimen Source CSF 06/03 19:11 :00 [facility] SPECIAL HEMATOLOGY TESTS Leukemia/Lym phoma Result See Report 36 (06/03/24 2:11 PM) 06/03 19:11 :00 Interpretive Data: See report under Flow Cytometry within Lab Extended tab. [facility] SPECIAL HEMATOLOGY TESTS Flow Cytometry Compliance Comment See Comment 35 (06/03/24 2:11 PM) 06/03 19:11 :00 Interpretive Data: Analyte Specific Reagent: This test was developed and its performance characteristi cs determined by the Clinical Flow Cytometry Laboratory, [facility], [facility]. It has not been cleared or approved [...] to perform high complexity clinical laboratory testing. [facility] Flow Cytometry Report. Flow Cytometry Report. CLINICAL FLOW CYTOMETRY DEPT OF PATHOLOGY [place] [address] Phone: [phone] Patient: EVELINA REGALADO Collection Date: 06/03/2024 Service: Oncology Location: Oncology Facility: [facility] [id number] Attending Physician: Heike Barrientos MD : 2000 [...] COMMENTS Contact the signing pathologis t at [phone] if there are questions about this analysis. [...] by the Clinical Flow Cytometry Laboratory , [facility], [facility]. It has not been cleared or approved [...] high complexity clinical laboratory testing. [place]. [address] 06/03 14:11 :00 Missing Attachment [id number].PDF can be viewed in source system [facility] Cytology Non-HUMAN RESOURCES COORDINATOR Report Cytology Non-HUMAN RESOURCES COORDINATOR Report CYTOLOGY MEDICAL REPORT Patient Name: EVELINA REGALADO Specimen Number: [id number] Patient Collection Date: 06/03/2024 Submitting Physician: Heike Barrientos MD Signout Date: 06/05/2024 Other Physician( s): Dario Madsen, DO ======== FINAL DIAGNOSIS CEREBROSPI NAL FLUID: Negative for acute leukemia Please see previous materials ([id number], [id number], [id number], [id number], [id number], [id number], [id number]) Please see comments Diagnosis Comment Microscopi c Descriptio n: Review of Luo stained cytospin preparatio n reveals several red blood cells. No blasts are identified . Please see previous materials ([id number], [id number], [id number], [id number], [id number], [id number], [id number]) ======== Source of Specimen(s ) [...] report (if any) were determined by the [facility] Department of Pathology. They have not [...] laboratory testing. 06/03 13:48 :00 Missing Attachment [id number].PDF can be viewed in source system [facility] URINALYSIS CLARITY Clear (06/03/24 6:18 AM) 06/03 11:18 :00 [facility] URINALYSIS COLOR Yellow (06/03/24 6:18 AM) 06/03 11:18 :00 [facility] URINALYSIS SPECIFIC GRAVITY 1.015 1.006 - 1.030 06/03 11:18 :00 [facility] URINALYSIS UA PH 5 (06/03/24 6:18 AM) 4.5 - 8.0 06/03 11:18 :00 [facility] URINALYSIS UA GLUCOSE Negative mg/dL 06/03 11:18 :00 [facility] URINALYSIS UA KETONES Negative mg/dL 06/03 11:18 :00 [facility] URINALYSIS BILIRUBIN Negative (06/03/24 6:18 AM) 06/03 11:18 :00 [facility] URINALYSIS UA UROBILINOGEN Negative Yumi unit/dL 0.2 - 1.0 06/03 11:18 :00 [facility] URINALYSIS UA BLOOD Negative 20 (06/03/24 6:18 AM) 06/03 11:18 :00 Result Comment: A hemoglobin concentration of 0.015-0.062 mg/dL is approximately equivalent to 5 -20 intact red blood cells per microliter. [facility] URINALYSIS UA LEUKOCYTES Negative (06/03/24 6:18 AM) 06/03 11:18 :00 [facility] URINALYSIS UA NITRITE Negative (06/03/24 6:18 AM) 06/03 11:18 :00 [facility] URINALYSIS UA PROTEIN Negative mg/dL 06/03 11:18 :00 [facility] GENERAL CHEMISTRY AST-SGOT 16 U/L 06/03 07:40 :00 [facility] GENERAL CHEMISTRY Albumin 3.5 g/dL 3.4 - 5.0 06/03 07:40 :00 [facility] GENERAL CHEMISTRY Alkaline Phosphatase 138 U/L 40 - 129 06/03 07:40 :00 [facility] GENERAL CHEMISTRY ALT-SGPT 66 U/L 10 - 50 06/03 07:40 :00 [facility] GENERAL CHEMISTRY BUN 19 mg/dL 6 - 20 06/03 07:40 :00 [facility] GENERAL CHEMISTRY Calcium 9.5 mg/dL 8.3 - 10.6 06/03 07:40 :00 [facility] GENERAL CHEMISTRY Glucose Lvl 92 mg/dL 70 - 139 06/03 07:40 :00 [facility] GENERAL CHEMISTRY Chloride 101 mmol/L 98 - 107 06/03 07:40 :00 [facility] GENERAL CHEMISTRY Sodium 133 mmol/L 136 - 145 06/03 07:40 :00 [facility] GENERAL CHEMISTRY Potassium 3.7 mmol/L 3.5 - 5.1 06/03 07:40 :00 [facility] GENERAL CHEMISTRY CO2 25 mmol/L 20 - 31 06/03 07:40 :00 [facility] CHEMISTRY Anion gap 11 mmol/L 0 - 20 06/03 07:40 :00 [facility] CHEMISTRY T Bili 0.96 mg/dL 0.30 - 1.20 06/03 07:40 :00 [facility] CHEMISTRY Total Protein 6.0 g/dL 5.7 - 8.2 06/03 07:40 :00 [facility] GENERAL CHEMISTRY Creatinine, standardized 0.6 mg/dL 0.7 - 1.2 06/03 07:40 :00 Interpretive Data: Dkchwt-om-jly e transgender patients on testosterone therapy should have results assessed using the male reference range. Nyhe-bo-strmd e transgender patients on hormone-modul ating therapy clinical judgment is advisedfor assessment. [facility] GENERAL CHEMISTRY Estimated GFR for Adults 137 mL/min/1.7 3m 06/03 07:40 :00 Interpretive Data: Changed to CKD-EPI 2020 on 2020. [facility] CHEMISTRY Estimated GFR for peds Not calculated 06/03 07:40 :00 Interpretive Data: The estimated GFR was calculated using the B lucero Dorado equation (2009) . Reference: Pediatric GFR calculator at [employer] Website. [facility] GENERAL CHEMISTRY Magnesium 1.56 mg/dL 1.60 - 2.60 06/03 07:40 :00 [facility] HEMATOLOGY PROFILES WBC 33.57 x10(9)/L 3.50 - 10.50 06/03 07:40 :00 [facility] HEMATOLOGY PROFILES RBC 3.02 x10(12)/L 4.32 - 5.72 06/03 07:40 :00 [facility] HEMATOLOGY PROFILES HGB 8.8 g/dL 13.5 - 17.5 06/03 07:40 :00 Interpretive Data: Ntdyut-vo-bwu e transgender patients on testosterone therapy should have results assessed using the male reference range. Fpzk-je-evnjk e transgender patients on hormone-modul ating therapy clinical judgment is advisedfor assessment. [facility] HEMATOLOGY PROFILES HCT 27.4 % 38.8 - 50.0 06/03 07:40 :00 Interpretive Data: Whruak-lo-xab e transgender patients on testosterone therapy should have results assessed using the male reference range. Bqvv-pg-cfnli e transgender patients on hormone-modul ating therapy clinical judgment is advisedfor assessment. [facility] HEMATOLOGY PROFILES MCV 90.7 fL 81.2 - 95.1 06/03 07:40 :00 [facility] HEMATOLOGY PROFILES MCH 29.1 pg 26.0 - 33.0 06/03 07:40 :00 [facility] HEMATOLOGY PROFILES MCHC 32.1 g/dL 32.0 - 36.0 06/03 07:40 :00 [facility] HEMATOLOGY PROFILES RDW CV 17.4 % 11.8 - 15.6 06/03 07:40 :00 [facility] HEMATOLOGY PROFILES RDW SD 57.0 fL 35.1 - 43.9 06/03 07:40 :00 [facility] HEMATOLOGY PROFILES PLT 176 x10(9)/L 150 - 450 06/03 07:40 :00 [facility] HEMATOLOGY PROFILES MPV 10.1 8.0 - 12.0 06/03 07:40 :00 [facility] HEMATOLOGY PROFILES QA Review See Smear Review (06/03/24 2:40 AM) 06/03 07:40 :00 [facility] HEMATOLOGY PROFILES Path Review Smear Pathologis t Review of Smear Interpreta tion: Lauren. Hypersegme nted neutrophil s Interprete d by: Evelina Escalante M.D. 06/03 07:40 :00 [facility] HEMATOLOGY PROFILES Abs NRBC Man 0.3 x10(9)/L 0.0 - 0.0 06/03 07:40 :00 [facility] HEMATOLOGY PROFILES Neuts Manual 96.0 % 06/03 07:40 :00 [facility] HEMATOLOGY PROFILES Lymphocytes Manual 4.0 % 06/03 07:40 :00 [facility] HEMATOLOGY PROFILES NRBC Manual 1.0 /100WBC 06/03 07:40 :00 [facility] HEMATOLOGY PROFILES Absolute Neutrophils Manual 32.23 x10(9)/L 1.70 - 7.00 06/03 07:40 :00 [facility] HEMATOLOGY PROFILES Abs Lymphocytes Manual 1.34 x10(9)/L 0.90 - 2.90 06/03 07:40 :00 [facility] HEMATOLOGY PROFILES Internal Review Yes (06/03/24 2:40 AM) 06/03 07:40 :00 [facility] URINALYSIS CLARITY Clear (06/02/24 6:00 PM) 06/02 23:00 :00 [facility] URINALYSIS COLOR Yellow (06/02/24 6:00 PM) 06/02 23:00 :00 [facility] URINALYSIS SPECIFIC GRAVITY 1.012 1.006 - 1.030 06/02 23:00 :00 [facility] URINALYSIS UA PH 6 (06/02/24 6:00 PM) 4.5 - 8.0 06/02 23:00 :00 [facility] URINALYSIS UA GLUCOSE Negative mg/dL 06/02 23:00 :00 [facility] URINALYSIS UA KETONES Negative mg/dL 06/02 23:00 :00 [facility] URINALYSIS BILIRUBIN Negative (06/02/24 6:00 PM) 06/02 23:00 :00 [facility] URINALYSIS UA UROBILINOGEN Negative Yumi unit/dL 0.2 - 1.0 06/02 23:00 :00 [facility] URINALYSIS UA BLOOD Negative 21 (06/02/24 6:00 PM) 06/02 23:00 :00 Result Comment: A hemoglobin concentration of 0.015-0.062 mg/dL is approximately equivalent to 5 -20 intact red blood cells per microliter. [facility] URINALYSIS UA LEUKOCYTES Negative (06/02/24 6:00 PM) 06/02 23:00 :00 [facility] URINALYSIS UA NITRITE Negative (06/02/24 6:00 PM) 06/02 23:00 :00 [facility] URINALYSIS UA PROTEIN Negative mg/dL 06/02 23:00 :00 [facility] URINALYSIS CLARITY Clear (06/02/24 1:00 PM) 06/02 18:00 :00 [facility] URINALYSIS COLOR Yellow (06/02/24 1:00 PM) 06/02 18:00 :00 [facility] URINALYSIS SPECIFIC GRAVITY 1.016 1.006 - 1.030 06/02 18:00 :00 [facility] URINALYSIS UA PH 5 (06/02/24 1:00 PM) 4.5 - 8.0 06/02 18:00 :00 [facility] URINALYSIS UA GLUCOSE Negative mg/dL 06/02 18:00 :00 [facility] URINALYSIS UA KETONES Negative mg/dL 06/02 18:00 :00 [facility] URINALYSIS BILIRUBIN Negative (06/02/24 1:00 PM) 06/02 18:00 :00 [facility] URINALYSIS UA UROBILINOGEN Negative Yumi unit/dL 0.2 - 1.0 06/02 18:00 :00 [facility] URINALYSIS UA BLOOD Negative 22 (06/02/24 1:00 PM) 06/02 18:00 :00 Result Comment: A hemoglobin concentration of 0.015-0.062 mg/dL is approximately equivalent to 5 -20 intact red blood cells per microliter. [facility] URINALYSIS UA LEUKOCYTES Negative (06/02/24 1:00 PM) 06/02 18:00 :00 [facility] URINALYSIS UA NITRITE Negative (06/02/24 1:00 PM) 06/02 18:00 :00 [facility] URINALYSIS UA PROTEIN Negative mg/dL 06/02 18:00 :00 [facility] THERAPEUTI C DRUGS Methotrexate Lvl <0.04 umol/L 06/02 08:34 :26 [facility] GENERAL CHEMISTRY AST-SGOT 21 U/L 06/02 08:26 :00 [facility] GENERAL CHEMISTRY Albumin 3.7 g/dL 3.4 - 5.0 06/02 08:26 :00 [facility] GENERAL CHEMISTRY Alkaline Phosphatase 129 U/L 40 - 129 06/02 08:26 :00 [facility] GENERAL CHEMISTRY ALT-SGPT 92 U/L 10 - 50 06/02 08:26 :00 [facility] CHEMISTRY BUN 17 mg/dL 6 - 20 06/02 08:26 :00 [facility] CHEMISTRY Calcium 9.8 mg/dL 8.3 - 10.6 06/02 08:26 :00 [facility] CHEMISTRY Glucose Lvl 90 mg/dL 70 - 139 06/02 08:26 :00 [facility] CHEMISTRY Chloride 101 mmol/L 98 - 107 06/02 08:26 :00 [facility] GENERAL CHEMISTRY Sodium 134 mmol/L 136 - 145 06/02 08:26 :00 [facility] CHEMISTRY Potassium 4.1 mmol/L 3.5 - 5.1 06/02 08:26 :00 [facility] CHEMISTRY CO2 24 mmol/L 20 - 31 06/02 08:26 :00 [facility] CHEMISTRY Anion gap 13 mmol/L 0 - 20 06/02 08:26 :00 [facility] CHEMISTRY T Bili 0.92 mg/dL 0.30 - 1.20 06/02 08:26 :00 [facility] CHEMISTRY Total Protein 6.5 g/dL 5.7 - 8.2 06/02 08:26 :00 [facility] CHEMISTRY Creatinine, standardized 0.6 mg/dL 0.7 - 1.2 06/02 08:26 :00 Interpretive Data: Qcthzq-dr-mfj e transgender patients on testosterone therapy should have results assessed using the male reference range. Zhwz-lr-civod e transgender patients on hormone-modul ating therapy clinical judgment is advisedfor assessment. [facility] GENERAL CHEMISTRY Estimated GFR for Adults 138 mL/min/1.7 3m 06/02 08:26 :00 Interpretive Data: Changed to CKD-EPI [address] [facility] GENERAL CHEMISTRY Estimated GFR for peds Not calculated 06/02 08:26 :00 Interpretive Data: The estimated GFR was calculated using the Teddy barker Dorado equation (2009) . Reference: Pediatric GFR calculator at [employer] Website. [facility] HEMATOLOGY PROFILES % Nucleated RBCs 0.0 % 06/02 08:26 :00 [facility] HEMATOLOGY PROFILES Absolute Nucleated RBCs 0.0 x10(9)/L 0.0 - 0.0 06/02 08:26 :00 Interpretive Data: Normal values not established in patients less than [address] [facility] HEMATOLOGY PROFILES % Neutrophils 94.0 % 06/02 08:26 :00 [facility] HEMATOLOGY PROFILES % Lymphocytes 1.0 % 06/02 08:26 :00 [facility] HEMATOLOGY PROFILES % Monocytes 0.2 % 06/02 08:26 :00 [facility] HEMATOLOGY PROFILES % Eosinophils 0.1 % 06/02 08:26 :00 [facility] HEMATOLOGY PROFILES % Basophils 0.2 % 06/02 08:26 :00 [facility] HEMATOLOGY PROFILES % Immature Granulocytes 4.50 % 0.02 - 0.42 06/02 08:26 :00 [facility] HEMATOLOGY PROFILES Absolute Granulocytes 37.11 x10(9)/L 1.70 - 7.00 06/02 08:26 :00 [facility] HEMATOLOGY PROFILES Abs Lymphocytes 0.41 x10(9)/L 0.90 - 2.90 06/02 08:26 :00 [facility] HEMATOLOGY PROFILES Abs Monocytes 0.08 x10(9)/L 0.30 - 0.90 06/02 08:26 :00 [facility] HEMATOLOGY PROFILES Abs Eosinophils 0.04 x10(9)/L 0.05 - 0.50 06/02 08:26 :00 [facility] HEMATOLOGY PROFILES Abs Basophils 0.09 x10(9)/L 0.00 - 0.30 06/02 08:26 :00 [facility] HEMATOLOGY PROFILES Abs Immature Granulocytes 1.79 x10(9)/L 0.00 - 0.03 06/02 08:26 :00 [facility] HEMATOLOGY PROFILES Morphology Present *NA* (06/02/24 3:26 AM) 06/02 08:26 :00 [facility] HEMATOLOGY PROFILES Platelet Estimate Adequate *NA* (06/02/24 3:26 AM) 06/02 08:26 :00 [facility] HEMATOLOGY PROFILES Aniso 1+ (10-20%) *NA* (06/02/24 3:26 AM) 06/02 08:26 :00 [facility] HEMATOLOGY PROFILES WBC 39.21 x10(9)/L 3.50 - 10.50 06/02 08:26 :00 [facility] HEMATOLOGY PROFILES RBC 3.26 x10(12)/L 4.32 - 5.72 06/02 08:26 :00 [facility] HEMATOLOGY PROFILES HGB 10.0 g/dL 13.5 - 17.5 06/02 08:26 :00 Interpretive Data: Hwelry-rr-hma e transgender patients on testosterone therapy should have results assessed using the male reference range. Rhiu-zq-yxpyn e transgender patients on hormone-modul ating therapy clinical judgment is advisedfor assessment. [facility] HEMATOLOGY PROFILES HCT 30.0 % 38.8 - 50.0 06/02 08:26 :00 Interpretive Data: Nosjkj-cq-ckc e transgender patients on testosterone therapy should have results assessed using the male reference range. Ivsm-kg-ndqqi e transgender patients on hormone-modul ating therapy clinical judgment is advisedfor assessment. [facility] HEMATOLOGY PROFILES MCV 92.0 fL 81.2 - 95.1 06/02 08:26 :00 [facility] HEMATOLOGY PROFILES MCH 30.7 pg 26.0 - 33.0 06/02 08:26 :00 [facility] HEMATOLOGY PROFILES MCHC 33.3 g/dL 32.0 - 36.0 06/02 08:26 :00 [facility] HEMATOLOGY PROFILES RDW CV 17.6 % 11.8 - 15.6 06/02 08:26 :00 [facility] HEMATOLOGY PROFILES RDW SD 57.7 fL 35.1 - 43.9 06/02 08:26 :00 [facility] HEMATOLOGY PROFILES PLT 231 x10(9)/L 150 - 450 06/02 08:26 :00 [facility] HEMATOLOGY PROFILES MPV 9.9 8.0 - 12.0 06/02 08:26 :00 [facility] THERAPEUTI C DRUGS Methotrexate Lvl <0.04 umol/L 06/02 01:32 :00 [facility] URINALYSIS CLARITY Clear (06/01/24 5:17 PM) 06/01 22:17 :00 [facility] URINALYSIS COLOR Straw (06/01/24 5:17 PM) 06/01 22:17 :00 [facility] URINALYSIS SPECIFIC GRAVITY 1.011 1.006 - 1.030 06/01 22:17 :00 [facility] URINALYSIS UA PH 6 (06/01/24 5:17 PM) 4.5 - 8.0 06/01 22:17 :00 [facility] URINALYSIS UA GLUCOSE Negative mg/dL 06/01 22:17 :00 [facility] URINALYSIS UA KETONES Negative mg/dL 06/01 22:17 :00 [facility] URINALYSIS BILIRUBIN Negative (06/01/24 5:17 PM) 06/01 22:17 :00 [facility] URINALYSIS UA UROBILINOGEN Negative Yumi unit/dL 0.2 - 1.0 06/01 22:17 :00 [facility] URINALYSIS UA BLOOD Negative 23 (06/01/24 5:17 PM) 06/01 22:17 :00 Result Comment: A hemoglobin concentration of 0.015-0.062 mg/dL is approximately equivalent to 5 -20 intact red blood cells per microliter. [facility] URINALYSIS UA LEUKOCYTES Negative (06/01/24 5:17 PM) 06/01 22:17 :00 [facility] URINALYSIS UA NITRITE Negative (06/01/24 5:17 PM) 06/01 22:17 :00 [facility] URINALYSIS UA PROTEIN Negative mg/dL 06/01 22:17 :00 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 5 Previous Treatment HyperCVAD+R alternating with High-dose Methotrexate and Cytarabine Cycle 1A Day 1 on 03/15/2024 Cycle 1B Day 1 on 04/10/2024 Cycle 2A Day 1 on 05/02/2024 Cycle 2B Day 1 on 05/27/2024 Cycle 3A Day 1 on 06/27/2024 Cycle 3B Day 1 on 07/19/2024 Cycle 4A Day 1 on 08/20/2024 Cycle 4B Day 1 on 09/12/2024. DIAL BUFFER prophylaxis Alternating IT Methotrexate and IT cytarabine on days 1, 4 of each course of chemotherapy (completed 1B through 4A). [2] HPI (Interval History) Patient presents today for follow up and lab. Admits to going okay, concerned about 3 red bumps on his left foot. He isn't sure if they're bug bites or not, but wants them evaluated. A few weeks ago he had low back pain, the symptoms are improved now and not bothering him. It made him very nervous that something was back with the cancer, but no current back pain. Denies fever/chills, abdominal pain, N/V, bowel changes, night sweats, new areas of pain at this time, appetite changes, dizziness, headache, vision changes. Does still have ongoing numbness in his hands, no symptoms in his feet. He reports taking all of his medication as prescribed, admits my sister takes care of that. Questions about his infusion and if he will be getting it today or in the future. Pt denies any other questions or concerns. Review of Systems Review of systems conducted and was negative for any acute pertinent complaints besides those listed in the HPI. Physical Exam Vitals and Measurements T: 37 C HR: 109 BP: 119/76 SpO2: 96% WT: 78.0 kg General: Patient is A/O x3 and appears to be in no acute distress. Cooperative, interactive. Speech is normal. Weight is stable from last visit. Head: Normocephalic Ears: Hearing intact Eyes: Sclera white, no erythema or drainage Neck: Supple, full ROM Respiratory: Lungs CTA bilaterally. No crackles or rubs or wheezes. Equal chest expansion with no work of breath. Cardiac: S1 and S2 clear, RRR. No murmur, rubs, or gallops. Abdomen: Bowel sounds + soft/supple non-tender to palpitation in all quadrants w/o distention rigidity rebound or guarding. Integumentary: pink, warm, and dry, normal turgor. 3 papular lesion on top of left foot, appear to be bug bites without drainage or swelling or erythema around site Musculoskeletal: No edema. Baseline ROM and gait Psych: mood and affect appropriate, demonstrated good judgement, no abnormal behaviors during the examination Radiology data: None from today Assessment/Plan This is a 25 year old male with intellectual disability currently on maintenance treatment. Started POMP maintenance 10/2024. 02/2025 made changes to therapy and discontinued vincristine and started low-dose 6-thioguanine; decrease Mercaptopurine 50 mg PO from TID to BID on Days 1 28, Methotrexate 20 mg/m PO on Days 1, 8, 15, and 22, PredniSONE 200 mg PO daily on Days 1 – 5. 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 Barrientos - Changes to POMP regimen: --- discontinue vincristine --- start low-dose (2.5-12.5 mg/m2/day) 6-thioguanine based on Thiopurine Enhanced ALL Maintenance (TEAM) strategy; script sent today for 20mg PO daily (~10mg/kg due to dosing availability) --- 02/2025: decrease Mercaptopurine 50 mg PO BID (was TID) on Days 1 28; continue --- No changes: Methotrexate 20 mg/m PO on Days 1, 8, 15, and 22 + PredniSONE 200 mg PO daily on Days 1 5 #Pancytopenia: He started his POMP maintenance is 10/2024. - 02/2025 worsening of cytopenia with ANC < 400, hg-10gm/dl. PL- 140,000. - We do nutritional work up (Iron, ferritin, TIBC, Vitamin B12, Folate, Copper, Zinc: will obtain next visit or sooner if worsened pancytopenia - improved counts today with hgb 12.3, ANC 1.89 and plt 284 #Transaminitis - Likely drug induced - Reduce the dose of 6-MP from TID to BID and LFTs improved/downtrending RTC in 2 months for follow up and lab with Dr. Barrientos Discussed patient with Dr. Heike Barrientos; was not physically assessed by physician. Spent 45 min on review of patients chart, clinical assessment/review of labs, coordination of care, discussion with clinical pharmacist and documentation. Problem List/Past Medical History Ongoing B-cell acute lymphoblastic leukemia Intellectual disability Procedure/Surgical History ear tubes tonsillectomy Medications acetaminophen-HYDROcodone(acetaminophe n-hydrocodone 325 mg-5 mg oral tablet), See Instructions, PRN gabapentin(gabapentin 100 mg oral capsule), 100 mg= 1 capsule(s), Oral, bid gabapentin(gabapentin 100 mg oral capsule), 100 mg= 1 capsule(s), Oral, bid, 1 refills loperamide(loperamide 2 mg oral tablet), See Instructions, 1 refills mercaptopurine(mercaptopurine 50 mg oral tablet), See Instructions, 2 refills methotrexate(methotrexate 2.5 mg oral tablet), 40.6 mg= 16.24 Tablet(s), 20 mg/m2, Oral, qWeek methotrexate(methotrexate 2.5 mg oral tablet), 40.6 mg= 16.24 Tablet(s), 20 mg/m2, Oral, qWeek morphine(MS Contin 15 mg oral tablet, extended release), 15 mg= 1 Tablet(s), Oral, bid sertraline(Zoloft 50 mg oral tablet), 50 mg= 1 Tablet(s), Oral, Daily, 3 refills thioguanine(thioguanine 40 mg oral tablet), 20 mg, Oral, Daily, 2 refills Allergies NKA Social History Smoking Status Never smoker Alcohol - Denies Alcohol Use Substance Abuse Use:Current Frequency:1-2 times per week Tobacco - Denies Tobacco Use Family History Immunizations Health Maintenance Lab Results Test Name Test Result Date/Time Absolute Neutrophils Manual 1.89 x10(9)/L 04/18/2025 08:51 CDT Albumin 4.4 g/dL 04/18/2025 08:51 CDT Alkaline Phosphatase 87 U/L 04/18/2025 08:51 CDT ALT-SGPT 111 U/L 04/18/2025 08:51 CDT Anion gap 13 mmol/L 04/18/2025 08:51 CDT Anisocytosis 1+ (10-20%) 04/18/2025 08:51 CDT AST-SGOT 56 U/L 04/18/2025 08:51 CDT BUN 6 mg/dL 04/18/2025 08:51 CDT Calcium 10.3 mg/dL 04/18/2025 08:51 CDT Chloride 101 mmol/L 04/18/2025 08:51 CDT CO2 28 mmol/L 04/18/2025 08:51 CDT Glucose Lvl 92 mg/dL 04/18/2025 08:51 CDT HCT 38.4 % 04/18/2025 08:51 CDT HGB 12.3 g/dL 04/18/2025 08:51 CDT Macrocytosis 1+ (25-50%) 04/18/2025 08:51 CDT MCH 33.9 pg 04/18/2025 08:51 CDT MCHC 32.0 g/dL 04/18/2025 08:51 CDT MCV 105.8 fL 04/18/2025 08:51 CDT RBC Morphology Present 04/18/2025 08:51 CDT MPV 10.4 04/18/2025 08:51 CDT Neuts Manual 46.7 % 04/18/2025 08:51 CDT PLT 284 x10(9)/L 04/18/2025 08:51 CDT Potassium 3.8 mmol/L 04/18/2025 08:51 CDT RBC 3.63 x10(12)/L 04/18/2025 08:51 CDT RDW CV 16.2 % 04/18/2025 08:51 CDT Sodium 138 mmol/L 04/18/2025 08:51 CDT T Bili 0.98 mg/dL 04/18/2025 08:51 CDT Total Protein 7.0 g/dL 04/18/2025 08:51 CDT WBC 4.04 x10(9)/L 04/18/2025 08:51 CDT Platelet Estimate Adequate 04/18/2025 08:51 CDT Lymphocytes Manual 27.6 % 04/18/2025 08:51 CDT Abs Lymphocytes Manual 1.12 x10(9)/L 04/18/2025 08:51 CDT Abs Monocytes Manual 0.61 x10(9)/L 04/18/2025 08:51 CDT Abs Eosinophils Manual 0.31 x10(9)/L 04/18/2025 08:51 CDT Monocytes Manual 15.2 % 04/18/2025 08:51 CDT Eosinophils Manual 7.6 % 04/18/2025 08:51 CDT Creatinine, standardized 0.7 mg/dL 04/18/2025 08:51 CDT Estimated GFR for peds Not Calculated 04/18/2025 08:51 CDT RDW SD 64.1 fL 04/18/2025 08:51 CDT Reactive Lymphs Manual 2.9 % 04/18/2025 08:51 CDT Abs Reactive Lymphs Manual 00.12 04/18/2025 08:51 CDT Estimated GFR for Adults 129 mL/min/1.73m 04/18/2025 08:51 CDT Internal Review Yes 04/18/2025 08:51 CDT Diagnostic Results Visit Information Provider Names Attending Physician: Vero Sainz APRN Referring Physician: Heike Barrientos MD Visit Date Visit Date: 04/18/2025 [1-2] Office Visit Note; Js Rashard Maxx 02/28/2025 10:18 CDT [1-2] Office Visit Note; Maxx Castellanos 02/28/2025 10:18 CDT 04/18/2025 Hem Oncology IM Clinic Note Chief Compla [...] 08/20/2024 Cycle 4B Day 1 on 09/12/2024. DIAL BUFFER prophylaxis Alternating IT Methotrexate and IT cytarabine on days 1, 4 of each course of chemotherapy (completed 1B through 4A). 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 Regalado is experiencing numbness and tingling in the fingers which they attribute to the current treatment. Labs on 02/28 reveal low blood counts WBC 1.28, RBC 3.02, Hgb 10.2, Hct 31.5. Patient's sister states that Mr. Regalado eats a diet of mostly carbohydrates including bananas, mac and cheese, noodles, and peanut butter and jelly sandwiches, partially because he had a dental tooth extraction to treat his history of probably dental infection. Patient's sister tries to get the patient to be active but Mr. Regalado has been mostly laying in bed this past week. Mr. Regalado's sister also endorses that the patient likes [...] dose of 6-MP. Reference Primo LN, Simeon LAGUNAS, Wili PUTNAM, Fannie K. Maintenance therapy for acute lymphoblastic leukemia: basic science and clinical translations. Leukemia. 2021;36(8):1372-9225. This patient was seen under the supervision [...] 08/20/2024 Cycle 4B Day 1 on 09/12/2024. DIAL BUFFER prophylaxis Alternating IT Methotrexate and IT cytarabine [...] brain is negative for features indicative of DIAL BUFFER involvement or acute intracranial abnormalities. Scrotal ultrasound showed normal scrotum and testes with no evidence of testicular involvement. Bone marrow biopsy by IR on 03/15/2024 showed B-ALL, NGS showed TCF3-PBX1 fusion and an NSD2 (WHSC1 or MMSET) [id number] alteration (VAF 32.32%) with 90% blasts. Started [...] course of chemotherapy (1B through 4A) for DIAL BUFFER prophylaxis. Bone marrow biopsy on 09/06/24 showed no morphologic evidence of residual leukemia and clonal CTP cell tracking detected no residual sequences. Plan to start patient on maintenance treatment with POMP regimen. Plan -Start maintenance therapy with POMP regimen for 2 years. Treatment regimen as below. -Will submit new [facility] treatment request form for vincristine -Will refer patient to medical oncology in [place] to establish care for monthly vincristine -Recommended to stop all antimicrobial prophylaxis -Advised to see dentist as soon as possible for possible dental infection -CBC and CMP once a month and results to be faxed to Dr. Barrientos -Return to [facility] for first dose of maintenance vincristine when scheduled Treatment regimen 28-day cycle for 2 years Mercaptopurine 50 mg PO three times daily on Days 1 28 Methotrexate 20 mg/m PO on Days 1, 8, 15, and 22 Vincristine 2 mg IV over 5 10 minutes on Day 1 Prednisone 200 mg PO daily on Days 1 ? 5 Reference Paola HM, [place] S, Zhne TL, et al. Results of treatment with hyper-CVAD, a dose-intensive regimen, in adult acute lymphocytic leukemia. J Clin Oncol. 2000;18(3):547-561. doi:10.1200/JCO.2000.18.3.547 I have sent a prescription for mercaptopurine, methotrexate and prednisone to his [facility] pharmacy for Cycle 1. RTC in 4 [...] 10/25/2024 [1-2] Oncology Office Visit Note *; Karin BRISCOE, Lan Weir 09/12/2024 08:59 COMMISSIONED FIRE OFFICER [1-2] Oncology Office Visit Note *; Karin BRISCOE, Lan Weir 09/12/2024 08:59 COMMISSIONED FIRE OFFICER [3] Histology [facility]; Morgan BRISCOE, Susy 09/16/2024 14:49 COMMISSIONED FIRE OFFICER 10/25/2024 Hem Oncology IM Consult Note Subjective [...] brain is negative for features indicative of DIAL BUFFER involvement or acute intracranial abnormalities. Scrotal ultrasound showed normal scrotum and testes with no evidence of testicular involvement. Bone marrow biopsy by IR on 03/15/2024 showed B-ALL, NGS showed TCF3-PBX1 fusion and an NSD2 (WHSC1 or MMSET) [id number] alteration (VAF 32.32%) with 90% blasts. Started [...] 375 mg/m2 IV (scheduled on 09/17; inpatient) DIAL BUFFER prophylaxis - Alternated IT Methotrexate and IT [...] staffed with Dr. Horne. Attestation by Coleen BRISCOE, Miguelina Patient was seen and examined on 09/17/24 [...] Rate Prep and Technique: Usual Standard Manner. Wad Printing Machine Operator Prep: [x] Cap, [x] Eye protection, [x] [...] brain is negative for features indicative of DIAL BUFFER involvement or acute intracranial abnormalities. Scrotal ultrasound showed normal scrotum and testes with no evidence of testicular involvement. Bone marrow biopsy by IR on 03/15/2024 showed B-ALL, NGS showed TCF3-PBX1 fusion and an NSD2 (WHSC1 or MMSET) [id number] alteration (VAF 32.32%) with 90% blasts. Started [...] 375 mg/m2 IV (scheduled on 09/17; inpatient) DIAL BUFFER prophylaxis - Alternated IT Methotrexate and IT [...] brain is negative for features indicative of DIAL BUFFER involvement or acute intracranial abnormalities. Scrotal ultrasound showed normal scrotum and testes with no evidence of testicular involvement. Bone marrow biopsy by IR on 03/15/2024 showed B-ALL, NGS showed TCF3-PBX1 fusion and an NSD2 (WHSC1 or MMSET) [id number] alteration (VAF 32.32%) with 90% blasts. Started [...] Rituximab 375 mg/m2 IV (scheduled on 09/17) DIAL BUFFER prophylaxis - Alternated IT Methotrexate and IT [...] on 09/15/24 Alycia Tena MD PGY-4, Hematology/Oncology [facility] I personally saw and evaluated [...] brain is negative for features indicative of DIAL BUFFER involvement or acute intracranial abnormalities. Scrotal ultrasound showed normal scrotum and testes with no evidence of testicular involvement. Bone marrow biopsy by IR on 03/15/2024 showed B-ALL, NGS showed TCF3-PBX1 fusion and an NSD2 (WHSC1 or MMSET) [id number] alteration (VAF 32.32%) with 90% blasts. Started [...] Rituximab 375 mg/m2 IV (scheduled on 09/17) DIAL BUFFER prophylaxis - Alternated IT Methotrexate and IT [...] brain is negative for features indicative of DIAL BUFFER involvement or acute intracranial abnormalities. Scrotal ultrasound showed normal scrotum and testes with no evidence of testicular involvement. Bone marrow biopsy by IR on 03/15/2024 showed B-ALL, NGS showed TCF3-PBX1 fusion and an NSD2 (WHSC1 or MMSET) [id number] alteration (VAF 32.32%) with 90% blasts. Started [...] Rituximab 375 mg/m2 IV (scheduled on 09/17) DIAL BUFFER prophylaxis - Alternated IT Methotrexate and IT [...] PRN leucovorin, 25 mg= 1 Tablet(s), Oral, [id number] leucovorin + sodium chloride 0.9% 50 mL, 50 mg = 5 mL, form: Injection, IVPB, Chemo Once, Routine, first dose 09/14/24 7:27:00 COMMISSIONED FIRE OFFICER, Physician Stop, stop date 09/14/24 7:27:00 COMMISSIONED FIRE OFFICER, 220 mL/hr, infuse over 15 minute(s), Total volume (mL): 55, Day 1 levoFLOXacin(levoFLOXacin 500 mg oral tablet), 500 mg= 1 Tablet(s), Oral, Daily morphine(MS Contin), 15 mg= 1 Tablet(s), Oral, bid ondansetron(ondansetron 4 mg oral tablet, disintegrating), 8 mg= 2 Tablet(s), Oral, tid oxyCODONE(_oxyCODONE 5 mg oral tablet), 5 mg= 1 Tablet(s), Oral, q6h, PRN prochlorperazine, 10 mg= 2 mL, IV, [id number]-hyewnmts, PRN prochlorperazine, 10 mg= 1 Tablet(s), Oral, tid sertraline(Zoloft), 50 mg= 1 Tablet(s), Oral, Daily sodium bicarbonate(sodium bicarbonate PO), 1300 mg= 2 Tablet(s), Oral, x1q-nooeaptw, PRN sodium bicarbonate 150 mEq + sterile water 1,000 mL(sodium bicarb for IV infusion 150 mEq + sterile water 1,000 mL), Total volume (mL): 1,150, Injection, IV, Rate: 200 mL/hr, Start date: 09/12/24 13:56:00 COMMISSIONED FIRE OFFICER, Stop date: 09/19/24 13:27:00 COMMISSIONED FIRE OFFICER, Day 1 Home acetaminophen(acetaminophen 500 mg oral [...] 08/20/2024 Cycle 4B Day 1 on 09/12/2024. DIAL BUFFER prophylaxis Alternating IT Methotrexate and IT cytarabine [...] brain is negative for features indicative of DIAL BUFFER involvement or acute intracranial abnormalities. Scrotal ultrasound showed normal scrotum and testes with no evidence of testicular involvement. Bone marrow biopsy by IR on 03/15/2024 showed B-ALL, NGS showed TCF3-PBX1 fusion and an NSD2 (WHSC1 or MMSET) [id number] alteration (VAF 32.32%) with 90% blasts. Started on HyperCVAD+R Part A cycle 1 on 03/15/2024. Bone marrow biopsy done on 04/04/2024 before Cycle 1B; MRD negative, ClonoSEQ B-cell tracking detected residual sequences (three residual clonal cells per million nucleated cells). HPI (Interval History) Mr. Evelina Regalado presented to the hematology/oncology clinic for a [...] and coherent. Psychiatric: Cooperative. Assessment/Plan Mr. Evelina Regalado is a 24-year-old male with a medical [...] 6 mg SC once on Day 5. DIAL BUFFER prophylaxis - Alternating IT Methotrexate and IT [...] mg = 30 mL, form: Injection, IVPB, [id number], Routine, first dose 09/16/24 12:00:00 COMMISSIONED FIRE OFFICER, order duration: 2 dose(s), Physician Stop, stop date 09/17/24 0:00:00 COMMISSIONED FIRE OFFICER, 265 mL/hr, infuse over 2 hour(s), Total volume (mL): 530, Day 3 dexAMETHAsone(dexAMETHAsone po), 4 mg= 1 Tablet(s), Oral, [id number] dexamethasone ophthalmic(dexAMETHasone 0.1% ophthalmic solution), 2 Drop(s), Each Eye, x0q-iauvouek enoxaparin(enoxaparin - prophylactic dosing), 40 mg= 0.4 [...] ondansetron(ondansetron oral), 8 mg= 1 Tablet(s), Oral, [id number]-[id number] oxyCODONE(_oxyCODONE 5 mg oral tablet), 5 mg= 1 Tablet(s), Oral, q4h, PRN pantoprazole(pantoprazole oral), 40 mg= 2 Tablet(s), Oral, Daily prochlorperazine(prochlorperazine 10 mg oral tablet), 10 mg= 1 Tablet(s), Oral, tid, 1 refills prochlorperazine, 10 mg= 2 mL, IV, p2j-dshtclfi, PRN prochlorperazine, 10 mg= 1 Tablet(s), Oral, [...] brain is negative for features indicative of DIAL BUFFER involvement or acute intracranial abnormalities. Scrotal ultrasound showed normal scrotum and testes with no evidence of testicular involvement. Bone marrow biopsy by IR on 03/15/2024 showed B-ALL, NGS showed TCF3-PBX1 fusion and an NSD2 (WHSC1 or MMSET) [id number] alteration (VAF 32.32%) with 90% blasts. Started [...] MTX and cytarabine, cycle 4A initiated on 12/3 (Day 1 today) - Cyclophosphamide (Cytoxan) 300 [...] before discharge. To be administered on 08/24. DIAL BUFFER prophylaxis - Alternating IT Methotrexate and IT cytarabine on days 1, 4 of each course of chemotherapy (completed 1B through 4A). Antibiotic prophylaxis: - Acyclovir 400 mg PO BID While on treatment - Levaquin 500 mg PO daily while on treatment​ - Fluconazole 400 mg PO daily while [...] brain is negative for features indicative of DIAL BUFFER involvement or acute intracranial abnormalities. Scrotal ultrasound showed normal scrotum and testes with no evidence of testicular involvement. Bone marrow biopsy by IR on 03/15/2024 showed B-ALL, NGS showed TCF3-PBX1 fusion and an NSD2 (WHSC1 or MMSET) [id number] alteration (VAF 32.32%) with 90% blasts. Started [...] before discharge. To be administered on 08/24. DIAL BUFFER prophylaxis - Alternating IT Methotrexate and IT [...] brain is negative for features indicative of DIAL BUFFER involvement or acute intracranial abnormalities. Scrotal ultrasound showed normal scrotum and testes with no evidence of testicular involvement. Bone marrow biopsy by IR on 03/15/2024 showed B-ALL, NGS showed TCF3-PBX1 fusion and an NSD2 (WHSC1 or MMSET) [id number] alteration (VAF 32.32%) with 90% blasts. Started [...] ANC greater than 1000/uL VS outpatient Neulasta. DIAL BUFFER prophylaxis - Alternating IT Methotrexate and IT [...] brain is negative for features indicative of DIAL BUFFER involvement or acute intracranial abnormalities. Scrotal ultrasound showed normal scrotum and testes with no evidence of testicular involvement. Bone marrow biopsy by IR on 03/15/2024 showed B-ALL, NGS showed TCF3-PBX1 fusion and an NSD2 (WHSC1 or MMSET) [id number] alteration (VAF 32.32%) with 90% blasts. Started [...] ANC greater than 1000/uL VS outpatient Neulasta. DIAL BUFFER prophylaxis - Alternating IT Methotrexate and IT [...] Hem Oncology IM Consult Note Subjective Mr. Regalado was seen resting in bed today. He [...] Result Date/Time WBC 5.80 x10(9)/L 07/24/2024 05:28 COMMISSIONED FIRE OFFICER HGB 9.8 g/dL 07/24/2024 05:28 COMMISSIONED FIRE OFFICER HCT 30.3 % 07/24/2024 05:28 COMMISSIONED FIRE OFFICER MCV 94.4 fL 07/24/2024 05:28 COMMISSIONED FIRE OFFICER PLT 195 x10(9)/L 07/24/2024 05:28 COMMISSIONED FIRE OFFICER Sodium 142 mmol/L 07/23/2024 02:28 COMMISSIONED FIRE OFFICER Potassium 3.8 mmol/L 07/23/2024 02:28 COMMISSIONED FIRE OFFICER Chloride 103 mmol/L 07/23/2024 02:28 COMMISSIONED FIRE OFFICER CO2 33 mmol/L 07/23/2024 02:28 COMMISSIONED FIRE OFFICER Glucose Lvl 125 mg/dL 07/23/2024 02:28 COMMISSIONED FIRE OFFICER BUN 5 mg/dL 07/23/2024 02:28 COMMISSIONED FIRE OFFICER Creatinine, standardized 0.5 mg/dL 07/23/2024 02:28 COMMISSIONED FIRE OFFICER T Bili 0.50 mg/dL 07/23/2024 02:28 COMMISSIONED FIRE OFFICER Alkaline Phosphatase 101 U/L 07/23/2024 02:28 COMMISSIONED FIRE OFFICER AST-SGOT 71 U/L 07/23/2024 02:28 COMMISSIONED FIRE OFFICER ALT-SGPT 175 U/L 07/23/2024 02:28 COMMISSIONED FIRE OFFICER Assessment/Plan Patient Summary Primary Oncologist: Dr. Barrientos Mr. Regalado is a 24-year-old male patient of Dr. [...] Luis Badillo MD PGY4 Hematology Oncology Fellow [facility] Addendum: Patient examined on 05/24/[address] [...] Result Date/Time WBC 5.74 x10(9)/L 07/23/2024 02:28 COMMISSIONED FIRE OFFICER HGB 10.2 g/dL 07/23/2024 02:28 COMMISSIONED FIRE OFFICER HCT 31.4 % 07/23/2024 02:28 COMMISSIONED FIRE OFFICER MCV 92.1 fL 07/23/2024 02:28 COMMISSIONED FIRE OFFICER PLT 230 x10(9)/L 07/23/2024 02:28 COMMISSIONED FIRE OFFICER Absolute Granulocytes 5.20 x10(9)/L 07/23/2024 02:28 COMMISSIONED FIRE OFFICER Sodium 142 mmol/L 07/23/2024 02:28 COMMISSIONED FIRE OFFICER Potassium 3.8 mmol/L 07/23/2024 02:28 COMMISSIONED FIRE OFFICER Chloride 103 mmol/L 07/23/2024 02:28 COMMISSIONED FIRE OFFICER CO2 33 mmol/L 07/23/2024 02:28 COMMISSIONED FIRE OFFICER Glucose Lvl 125 mg/dL 07/23/2024 02:28 COMMISSIONED FIRE OFFICER BUN 5 mg/dL 07/23/2024 02:28 COMMISSIONED FIRE OFFICER Creatinine, standardized 0.5 mg/dL 07/23/2024 02:28 COMMISSIONED FIRE OFFICER Calcium 9.5 mg/dL 07/23/2024 02:28 COMMISSIONED FIRE OFFICER T Bili 0.50 mg/dL 07/23/2024 02:28 COMMISSIONED FIRE OFFICER Alkaline Phosphatase 101 U/L 07/23/2024 02:28 COMMISSIONED FIRE OFFICER AST-SGOT 71 U/L 07/23/2024 02:28 COMMISSIONED FIRE OFFICER ALT-SGPT 175 U/L 07/23/2024 02:28 COMMISSIONED FIRE OFFICER Assessment/Plan Patient Summary Primary Oncologist: Dr. Barrientos Mr. Regalado is a 24-year-old male patient of Dr. [...] Badillo MD PGY4 Hematology Oncology Fellow [facility] Addendum: Patient seen and examined on 07/23/24 [...] Hem Oncology IM Consult Note Subjective Mr. Regalado was seen resting in bed during rounds [...] Result Date/Time WBC 3.34 x10(9)/L 07/22/2024 02:36 COMMISSIONED FIRE OFFICER HGB 9.8 g/dL 07/22/2024 02:36 COMMISSIONED FIRE OFFICER HCT 30.6 % 07/22/2024 02:36 COMMISSIONED FIRE OFFICER MCV 93.9 fL 07/22/2024 02:36 COMMISSIONED FIRE OFFICER PLT 205 x10(9)/L 07/22/2024 02:36 COMMISSIONED FIRE OFFICER Absolute Granulocytes 2.10 x10(9)/L 07/22/2024 02:36 COMMISSIONED FIRE OFFICER Sodium 143 mmol/L 07/22/2024 02:36 COMMISSIONED FIRE OFFICER Potassium 3.4 mmol/L 07/22/2024 02:36 COMMISSIONED FIRE OFFICER Chloride 105 mmol/L 07/22/2024 02:36 COMMISSIONED FIRE OFFICER CO2 35 mmol/L 07/22/2024 02:36 COMMISSIONED FIRE OFFICER Glucose Lvl 106 mg/dL 07/22/2024 02:36 COMMISSIONED FIRE OFFICER BUN <5 mg/dL 07/22/2024 02:36 COMMISSIONED FIRE OFFICER Creatinine, standardized 0.5 mg/dL 07/22/2024 02:36 COMMISSIONED FIRE OFFICER Calcium 8.7 mg/dL 07/22/2024 02:36 COMMISSIONED FIRE OFFICER Magnesium 1.50 mg/dL 07/22/2024 02:36 COMMISSIONED FIRE OFFICER Phosphorus 4.0 mg/dL 07/22/2024 02:36 COMMISSIONED FIRE OFFICER T Bili 0.39 mg/dL 07/22/2024 02:36 COMMISSIONED FIRE OFFICER Alkaline Phosphatase 97 U/L 07/22/2024 02:36 COMMISSIONED FIRE OFFICER AST-SGOT 89 U/L 07/22/2024 02:36 COMMISSIONED FIRE OFFICER ALT-SGPT 185 U/L 07/22/2024 02:36 COMMISSIONED FIRE OFFICER Diagnostic Results FINAL DIAGNOSIS CEREBROSPINAL FLUID: Negative for Acute Leukemia. Please see previous material ([id number], [id number], [id number], [id number]) Diagnosis Comment Microscopic description: Review of Luo stained CSF cytospin preparation reveals background small mature monocytes, a few monocytes and and scattered neutrophils. No blast cell identified. [1] Assessment/Plan Patient Summary Primary Oncologist: Dr. Barrientos Mr. Regalado is a 24-year-old male patient of Dr. [...] Badillo MD PGY4 Hematology Oncology Fellow [facility] [1] Cytology ; Morgan BRISCOE, Susy 07/20/2024 14:18 CDT I personally saw and [...] regular updates about his patients including Mr. Regalado today and immediately as indicated. Jaden Lin MD/FACP Shannan Jimenez Standards Engineer of Clinical Medicine Cloth Tester Quality for [employer] and Chair of Breast DWG 07/22/2024 Hem [...] Patient Summary Primary Oncologist: Dr. Barrientos Mr. Regalado is a 24-year-old male patient of Dr. [...] regular updates about his patients including Mr. Regalado's today and immediately as indicated. Jaden Lin MD/FACP Shannan Jimenez Standards Engineer of Clinical Medicine Cloth Tester Quality for [employer] and Chair of Breast DWG 07/21/2024 Hem Oncology IM Consult Note Subjective Mr. Regalado was seen resting in bed during rounds [...] with cytarabine through the [place] reservoir. Mr. Regalado tolerated the procedure without any adverse effects [...] CDT Assessment/Plan Primary Oncologist: Dr. Barrientos Mr. Regalado is a 24-year-old male patient of Dr. [...] Badillo MD PGY 4 hematology oncology fellow [facility] I personally saw and evaluated [...] regular updates about his patients including Mr. Regalado's today and immediately as indicated. Jdaen Lin MD/FACP Shannan Jimenez Standards Engineer of Clinical Medicine Cloth Tester Quality for [employer] and Chair of Breast DWG 07/20/2024 Hem Oncology IM Consult Note Chief Compl aint Planned admission for HyperCVAD Part B Reason for Consultation Acute lymphoblastic leukemia B-cell Requesting Provider Dr. Dario Madsen History of Present Illness Mr. Couch is a 24-year-old gentleman who follows with Dr. Barrientos at [facility] for a diagnosis of B-cell acute lymphoblastic [...] affect. Assessment/Plan Primary Oncologist: Dr. Barrientos Mr. Regalado is a 24-year-old male patient of Dr. [...] MD PGY 4 hematology oncology fellow [facility] Problem List/Past Medical History Ongoing B-cell acute [...] regular updates about his patients including Mr. Regalado's today and immediately as indicated. Jaden Lin MD/FACP Shannan Jimenez Standards Engineer of Clinical Medicine Cloth Tester Quality for [employer] and Chair of Breast DWG 07/19/2024 Hem [...] lidocaine 5% topical film: 1 Patch Transdermal [id number] Cathflo Activase: 2mg 2 mL Catheter Dwell [...] brain is negative for features indicative of DIAL BUFFER involvement or acute intracranial abnormalities. Scrotal ultrasound showed normal scrotum and testes with no evidence of testicular involvement. Bone marrow biopsy by IR on 03/15/2024 showed B-ALL, NGS showed TCF3-PBX1 fusion and an NSD2 (WHSC1 or MMSET) [id number] alteration (VAF 32.32%) with 90% blasts. Started [...] bedside prior to discharge. -- Return to [facility] on 07/08/2024 for D12 for vincristine (originally [...] ANC greater than 1000/uL VS outpatient Neulasta. DIAL BUFFER prophylaxis - Alternating IT Methotrexate and IT [...] lidocaine 5% topical film: 1 Patch Transdermal [id number] Cathflo Activase: 2mg 2 mL Catheter Dwell [...] brain is negative for features indicative of DIAL BUFFER involvement or acute intracranial abnormalities. Scrotal ultrasound showed normal scrotum and testes with no evidence of testicular involvement. Bone marrow biopsy by IR on 03/15/2024 showed B-ALL, NGS showed TCF3-PBX1 fusion and an NSD2 (WHSC1 or MMSET) [id number] alteration (VAF 32.32%) with 90% blasts. Started [...] ANC greater than 1000/uL VS outpatient Neulasta. DIAL BUFFER prophylaxis - Alternating IT Methotrexate and IT [...] brain is negative for features indicative of DIAL BUFFER involvement or acute intracranial abnormalities. Scrotal ultrasound showed normal scrotum and testes with no evidence of testicular involvement. Bone marrow biopsy by IR on 03/15/2024 showed B-ALL, NGS showed TCF3-PBX1 fusion and an NSD2 (WHSC1 or MMSET) [id number] alteration (VAF 32.32%) with 90% blasts. Started [...] ANC greater than 1000/uL VS outpatient Neulasta. DIAL BUFFER prophylaxis - Alternating IT Methotrexate and IT [...] 3B. Patient seen and staffed with Dr. oYrk I spent a total time of 30 [...] brain is negative for features indicative of DIAL BUFFER involvement or acute intracranial abnormalities. Scrotal ultrasound showed normal scrotum and testes with no evidence of testicular involvement. 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 Started [...] ANC greater than 1000/uL VS outpatient Neulasta. DIAL BUFFER prophylaxis - Alternating IT Methotrexate and IT [...] ondansetron oral, 16 mg= 2 Tablet(s), Oral, [id number] ondansetron oral, 16 mg= 2 Tablet(s), Oral, [id number] ondansetron oral, 16 mg= 2 Tablet(s), Oral, [id number]-[id number] ondansetron oral, 16 mg= 2 Tablet(s), Oral, Chemo Once oxyCODONE 5 mg oral tablet, 5 mg= 1 Tablet(s), Oral, q6h, PRN pegfilgrastim, 6 mg= 0.6 mL, Subcutaneous, Once prochlorperazine, 10 mg= 2 mL, IV Push, h5g-hballymg, PRN prochlorperazine, 10 mg= 1 Tablet(s), Oral, tid, PRN prochlorperazine, 10 mg= 2 mL, IV Push, [id number]-[id number], PRN prochlorperazine 10 mg oral tablet, 10 [...] Index 0 Lipemia Index 0 Assessment/Plan Mr. Regalado is a 24-year-old male patient of Dr. [...] to come to the hospital for chemotherapy. 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 recording studio set up worker working with the family to coordinate [...] twice daily Patient staffed with Dr. Horne. Alycai Tena MD PGY-4, Hematology/Oncology [facility] Attestation by [facility] was seen and examined on 06/03/2024 [...] Index 0 Lipemia Index 0 Assessment/Plan Mr. Regalado is a 24-year-old male patient of Dr. [...] to come to the hospital for chemotherapy. 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 Horne. Alycia Tena MD PGY-4, Hematology/Oncology [facility] Attestation by Miguelina Horne MD Patient was [...] of the lumbosacral spine. [1] Assessment/Plan Mr. Regalado is a 24-year-old male patient of Dr. [...] the hospital. They live 3 hours away. distillery manager can arrange Medicare ride but it [...] with Dr. Horne. [1] XR Spine Lumbosacral; Ruben BRISCOE, Nicko Perez 05/31/2024 19:41 CDT Attestation by Coleen BRISCOE, Miguelina Patient was seen and examined on 06/01/2024 [...] documented findings and plan of care. 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 Remove PICC line, 09/18/24 10:46:00 COMMISSIONED FIRE OFFICER Once Other Diagnoses Ongoing B-cell acute lymphoblastic leukemia Intellectual disability Operations [employer] Consult[employer] Inpt Interventional Radiology Pending Labs Chromosome Analysis, Hematologic Disorders, Bone Marrow-[employer] (In Process, InProcess, ordered 09/16/2024, 14:11) Discharge [...] Orders Regular Diet. Ordered on 09/16/24 15:00:00 COMMISSIONED FIRE OFFICER, Meal Start Time Lunch 1115 to 1245 Activity As Tolerated. 09/12/24 11:54:00 COMMISSIONED FIRE OFFICER, Continuous Order 09/18/2024 Discharge Summary Date of Admission Date of Discharge 08/23/2024 Reason for Hospitalization Hospital Course Evelina Regalado is a 24-year-old male with presumed intellectual [...] Status Infusion - CA5 08/30/2024 08:30 AM COMMISSIONED FIRE OFFICER [facility] Estevan [facility] [place] [address]- Confirmed Lab Peripheral IV 09/10/2024 12:30 PM COMMISSIONED FIRE OFFICER [facility] [place] [address]- Confirmed SUPERVISOR P[employer] 09/10/2024 01:30 PM COMMISSIONED FIRE OFFICER Nancy Clark [facility] [place] [address]- Confirmed Nursing/Other Orders Regular Diet. Ordered on 08/19/24 15:33:00 COMMISSIONED FIRE OFFICER, Meal Start Time Breakfast 0700 to 0900 Activity, Prone Position (Position, Prone). Start Date/Time: 08/20/24 13:49:00 COMMISSIONED FIRE OFFICER, Special Instructions Patient to remain in a prone position for approximately 30 minutes after administration if possible. Activity, Prone Position (Position, Prone). * Est. Start Date/Time: 08/23/24 10:26:00 COMMISSIONED FIRE OFFICER, Special Instructions Patient to remain in a prone position for approximately 30 minutes after administration if possible. (Future) Out of Bed Activity. 08/19/24 15:33:00 COMMISSIONED FIRE OFFICER Out of Bed to Chair, tid w/Meals [...] Acute Lymphoblastic Leukemia (ALL) Hospital Course Evelina Regalado is a 24-year-old male with presumed intellectual [...] leukemia Intellectual disability Operations [employer] Consult[employer] In Medicine Hematology/Oncology Pending Labs Discharge Disposition Home [...] Lab Draw w/ Port 07/26/2024 09:00 AM COMMISSIONED FIRE OFFICER [facility] [address]- Confirmed Infusion - CA7 07/26/2024 10:00 AM COMMISSIONED FIRE OFFICER [facility] [place] [address]- Confirmed Nursing/Other Orders Activity, Prone Position (Position, Prone). Start Date/Time: 07/20/24 13:11:00 CDT, Special Instructions Patient to remain in a prone position for approximately 30 minutes after administration if possible. Activity, Prone Position (Position, Prone). * Est. Start Date/Time: 07/23/24 7:58:00 COMMISSIONED FIRE OFFICER, Special Instructions Patient to remain in a prone position for approximately 30 minutes after administration if possible. (Future) Activity, Prone Position (Position, Prone). * Est. Start Date/Time: 07/26/24, Special Instructions Patient to remain in a prone position for approximately 30 minutes after administration if possible. (Future) Activity, Prone Position (Position, Prone). * Est. Start Date/Time: 07/26/24 8:00:00 COMMISSIONED FIRE OFFICER, Special Instructions Patient to remain in a prone position for approximately 30 minutes after administration if possible. (Future) Activity, Prone Position (Position, Prone). * Est. Start Date/Time: 07/29/24 8:00:00 COMMISSIONED FIRE OFFICER, Special Instructions Patient to remain in a [...] Hospitalization Planned chemotherapy Hospital Course Mr. Evelina Regalado is a 24-year-old male with presumed intellectual [...] lymphoblastic leukemia Intellectual disability Pending Labs Cytology, Non-HUMAN RESOURCES COORDINATOR ([address], Wash, Fluids, etc) (In Process, InProcess, ordered 06/28/2024, 14:07) Cytology, Non-HUMAN RESOURCES COORDINATOR ([address], Wash, Fluids, etc) (Ordered, Ordered 07/01/2024, 12:54) [...] Infusion - CA7 07/03/2024 08:00 AM CDT [facility] [place] [address]- Confirmed Nursing/Other Orders Regular Diet. Ordered on [...] set up for patient to [facility] on 07/08. 07/01/2024 Discharge Summary Date of [...] their car). Ride was arranged with social sciences department chair to patient's home. 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) Ordered: acyclovir, 400 mg = 2 capsule(s), Oral, bid, # 60 capsule(s), Refill(s) 0, Pharmacy: [facility], 182.8, cm, 06/03/24 22:36:00 CDT, Height (cm), kg, 05/27/24 14:28:00 CDT, Weight (kg), 71.5 levoFLOXacin, 500 mg = 1 Tablet(s), Oral, Daily, # 30 Tablet(s), Refill(s) 0, [facility] bedside delivery, 182.8, cm, 06/03/24 22:36:00 CDT, Height (cm), kg, 05/27/24 14:28:00 CDT, Weight (kg), 71.5 Carcinomatosis Leukemia Ordered: acyclovir, 400 mg = 2 capsule(s), Oral, bid, # 60 capsule(s), Refill(s) 0, Pharmacy: [facility], 182.8, cm, 06/03/24 22:36:00 CDT, Height (cm), kg, 05/27/24 14:28:00 CDT, Weight (kg), 71.5 Orders: filgrastim, 480 mcg = 0.8 mL, Subcutaneous, q24h, # 1 mL, Refill(s) 0, 06/05/24, Pharmacy: [facility], 182.8, cm, 06/03/24 22:36:00 CDT, Height (cm), kg, 05/27/24 14:28:00 CDT, Weight (kg), 71.5 fluconazole, 400 mg = 2 Tablet(s), Oral, Daily, # 30 Tablet(s), Refill(s) 0, [facility], bedside delivery, 182.8, cm, 06/03/24 22:36:00 CDT, Height (cm), kg, 05/27/24 14:28:00 CDT, Weight (kg), 71.5 B-Cell ALL Elevated LFTs (improving) Constipation Other Diagnoses Ongoing B-cell acute lymphoblastic leukemia Intellectual disability Historical No qualifying data Operations [employer] Procedures Consult[employer] Pending Labs Cytology, Non-HUMAN RESOURCES COORDINATOR ([address], Wash, Fluids, etc) (In Process, InProcess, ordered [...] Neurological, Follow up at [facility] with Donal BRISCOE, Marcio Pleitez Within 14 Days, Coordinate appt with No tests, Originally referred by Heike Barrientos Appointment Type When With Where Contact Information Status POP 06/10/2024 10:30 AM CDT Donal BRISCOE, Marcio Pleitez [facility] [place] [address] Confirmed No qualifying data available [...] All occurred on date of service. 06/04/2024 History and Physicals Results Value Date Source History and Physical Chief Complaint History of Present Illness Evelina Regalado is a 24-year-old male with presumed intellectual [...] cooperative, no focal neurological deficits Assessment/Plan Evelina Regalado is a 24-year-old male with presumed intellectual [...] chemo CODE: Full Pt staffed with Dr Isael. Problem List/Past Medical History Ongoing B-cell acute [...] PRN leucovorin, 25 mg= 1 Tablet(s), Oral, [id number] leucovorin + sodium chloride 0.9% 50 mL, 50 mg = 5 mL, form: Injection, IVPB, Chemo Once, Routine, first dose 09/14/24 7:27:00 COMMISSIONED FIRE OFFICER, Physician Stop, stop date 09/14/24 7:27:00 COMMISSIONED FIRE OFFICER, 220 mL/hr, infuse over 15 minute(s), Total volume (mL): 55, Day 1 levoFLOXacin(levoFLOXacin 500 mg oral tablet), 500 mg= 1 Tablet(s), Oral, Daily methotrexate + Dextrose 5% in Water 1,000 mL, 2,000 mg = 80 mL, form: Injection, IVPB, Chemo Once, Routine, first dose 09/12/24 19:28:00 COMMISSIONED FIRE OFFICER, Physician Stop, stop date 09/12/24 19:28:00 COMMISSIONED FIRE OFFICER, 45 mL/hr, infuse over 24 hour(s), 1,080, Day 1, Leukemia morphine(MS Contin), 15 mg= 1 Tablet(s), Oral, bid ondansetron(ondansetron oral), 24 mg= 3 Tablet(s), Oral, Chemo Once ondansetron(ondansetron 4 mg oral tablet, disintegrating), 8 mg= 2 Tablet(s), Oral, tid oxyCODONE(_oxyCODONE 5 mg oral tablet), 5 mg= 1 Tablet(s), Oral, q6h, PRN prochlorperazine, 10 mg= 2 mL, IV, [id number], PRN prochlorperazine, 10 mg= 1 Tablet(s), Oral, tid sertraline(Zoloft), 50 mg= 1 Tablet(s), Oral, Daily sodium bicarbonate(sodium bicarbonate PO), 1300 mg= 2 Tablet(s), Oral, [id number], PRN sodium bicarbonate 150 mEq + sterile water 1,000 mL(sodium bicarb for IV infusion 150 mEq + sterile water 1,000 mL), Total volume (mL): 1,150, Injection, IV, Rate: 200 mL/hr, Start date: 09/12/24 13:56:00 COMMISSIONED FIRE OFFICER, Stop date: 09/19/24 13:27:00 COMMISSIONED FIRE OFFICER, Day 1 Time Zero, 1 Each, Message, [...] chemo inpatient History of Present Illness Evelina Regalado is a 24-year-old male with presumed intellectual [...] chest pain or SOB. He does endorse 7 in his lower back and requests Dilaudid. [...] Psych: Appropriate mood and affect. Assessment/Plan Evelina Regalado is a 24-year-old male with presumed intellectual [...] to come to the hospital for chemotherapy. 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 Patient has been staffed with Dr. Dario Madsen. Iveth Maloney DO PGY-2 Internal Medicine. Problem List/Past Medical [...] cell ALL History of Present Illness Evelina Regalado is a 24-year-old male with presumed intellectual [...] and oriented. Cooperative, normal affect. Assessment/Plan Evelina Regalado is a 24-year-old male with presumed intellectual disability and B-cell ALL with [place] placed on 05/23 who was directly admitted today for HyperCVAD 3B chemotherapy. B-cell acute lymphoblastic leukemia [place] -Diagnosed 02/2024 -S/p HyperCVAD cycle 1A, [...] Complaint Chemo History of Present Illness Evelina Regalado is a 24-year-old male with presumed intellectual [...] Psych: Appropriate mood and affect. Assessment/Plan Evelina Regalado is a 24-year-old male with presumed intellectual [...] to come to the hospital for chemotherapy. distillery manager can arrange Medicare right which can [...] mg = 30 mL, form: Injection, IVPB, [id number], Routine, first dose 06/27/24 17:00:00 CDT, order [...] ondansetron(ondansetron oral), 16 mg= 2 Tablet(s), Oral, [id number] oxyCODONE(oxyCODONE 5 mg oral tablet), 5 mg= [...] above with the following exceptions/additions: none 06/27/2024 Vital Signs Vital Sign Value Date Comments Source Respiratory Rate 14 breaths/min 11/12/2024 17:27:13 [facility] Mean NIBP 88 mm[Hg] 11/12/2024 17:27:13 [facility] Heart Rate 82 bpm 11/12/2024 17:27:13 [facility] SpO2 98 % 11/12/2024 17:27:13 [facility] Temperature (Celsius) 36.5 Cheri 11/12/2024 17:27:13 [facility] SBP NIBP 121 mm[Hg] 11/12/2024 17:27:13 [facility] DBP NIBP 72 mm[Hg] 11/12/2024 17:27:13 [facility] SBP NIBP 116 mm[Hg] 10/25/2024 15:13:00 [facility] DBP NIBP 71 mm[Hg] 10/25/2024 15:13:00 [facility] Heart Rate 88 bpm 10/25/2024 15:13:00 [facility] Weight (kg) 80.8 kg 10/25/2024 15:13:00 [facility] Temperature (Celsius) 36.9 Cheri 10/25/2024 15:13:00 [facility] SpO2 99 % 10/25/2024 15:13:00 [facility] Respiratory Rate 16 breaths/min 09/18/2024 14:11:21 [facility] SpO2 97 % 09/18/2024 14:11:21 [facility] SBP NIBP 122 mm[Hg] 09/18/2024 14:11:21 [facility] DBP NIBP 76 mm[Hg] 09/18/2024 14:11:21 [facility] Mean NIBP 91 mm[Hg] 09/18/2024 14:11:21 [facility] Heart Rate 98 bpm 09/18/2024 14:11:21 [facility] Temperature (Celsius) 36.7 Cheri 09/18/2024 14:11:21 [facility] Temperature (Celsius) 36.9 Cheri 09/18/2024 11:27:18 [facility] Respiratory Rate 16 breaths/min 09/18/2024 11:27:18 [facility] SBP NIBP 113 mm[Hg] 09/18/2024 11:27:18 [facility] DBP NIBP 65 mm[Hg] 09/18/2024 11:27:18 [facility] Mean NIBP 81 mm[Hg] 09/18/2024 11:27:18 [facility] SpO2 98 % 09/18/2024 11:27:18 [facility] Heart Rate 92 bpm 09/18/2024 11:27:18 [facility] Heart Rate 88 bpm 09/18/2024 06:56:22 [facility] Temperature (Celsius) 36.6 Cheri 09/18/2024 06:56:22 [facility] SpO2 99 % 09/18/2024 06:56:22 [facility] Respiratory Rate 15 breaths/min 09/18/2024 06:56:22 [facility] SBP NIBP 134 mm[Hg] 09/18/2024 06:56:22 [facility] DBP NIBP 75 mm[Hg] 09/18/2024 06:56:22 [facility] Mean NIBP 95 mm[Hg] 09/18/2024 06:56:22 [facility] Height (cm) 182.8 cm 09/18/2024 02:00:00 [facility] SpO2 99 % 09/18/2024 01:48:20 [facility] Heart Rate 90 bpm 09/18/2024 01:48:20 [facility] Temperature (Celsius) 36.8 Cheri 09/18/2024 01:48:20 [facility] Respiratory Rate 16 breaths/min 09/18/2024 01:48:20 [facility] SBP NIBP 102 mm[Hg] 09/18/2024 01:48:20 [facility] DBP NIBP 63 mm[Hg] 09/18/2024 01:48:20 [facility] Mean NIBP 76 mm[Hg] 09/18/2024 01:48:20 [facility] Height (cm) 182.8 cm 09/17/2024 14:34:00 [facility] Height (cm) 182.8 cm 09/16/2024 15:00:00 [facility] Height (cm) 182.8 cm 09/15/2024 15:00:00 [facility] BMI 21.5 kg/m2 09/12/2024 18:02:00 [facility] Weight (kg) 71.7 kg 09/12/2024 18:02:00 [facility] Heart Rate 137 bpm 09/12/2024 16:42:00 [facility] Weight (kg) 71.7 kg 09/12/2024 16:42:00 [facility] SBP NIBP 119 mm[Hg] 09/12/2024 16:42:00 [facility] DBP NIBP 82 mm[Hg] 09/12/2024 16:42:00 [facility] SpO2 96 % 09/12/2024 16:42:00 [facility] Temperature (Celsius) 36.7 Cheri 09/12/2024 16:42:00 [facility] SBP NIBP 118 mm[Hg] 09/03/2024 19:40:55 [facility] DBP NIBP 65 mm[Hg] 09/03/2024 19:40:55 [facility] Heart Rate 89 bpm 09/03/2024 19:40:55 [facility] Mean NIBP 83 mm[Hg] 09/03/2024 19:40:55 [facility] SBP NIBP 109 mm[Hg] 09/03/2024 18:44:45 [facility] DBP NIBP 60 mm[Hg] 09/03/2024 18:44:45 [facility] Heart Rate 92 bpm 09/03/2024 18:44:45 [facility] Mean NIBP 76 mm[Hg] 09/03/2024 18:44:45 [facility] SBP NIBP 122 mm[Hg] 09/03/2024 18:14:48 [facility] DBP NIBP 41 mm[Hg] 09/03/2024 18:14:48 [facility] Heart Rate 94 bpm 09/03/2024 18:14:48 [facility] Mean NIBP 68 mm[Hg] 09/03/2024 18:14:48 [facility] SBP NIBP 113 mm[Hg] 09/03/2024 17:41:21 [facility] DBP NIBP 66 mm[Hg] 09/03/2024 17:41:21 [facility] Mean NIBP 82 mm[Hg] 09/03/2024 17:41:21 [facility] Heart Rate 86 bpm 09/03/2024 17:41:21 [facility] SpO2 98 % 09/03/2024 16:26:17 [facility] Respiratory Rate 16 breaths/min 09/03/2024 16:26:17 [facility] ([facility] 74.5 kg 09/03/2024 16:26:17 [facility] Temperature (Celsius) 36.2 Cheri 09/03/2024 16:26:00 [facility] Height (cm) 182.8 cm 09/03/2024 16:10:00 [facility] NIBP 97 mm[Hg] 08/23/2024 14:00:00 [facility] SBP NIBP 133 mm[Hg] 08/23/2024 14:00:00 [facility] DBP NIBP 79 mm[Hg] 08/23/2024 14:00:00 [facility] Heart Rate 80 bpm 08/23/2024 14:00:00 [facility] Temperature (Celsius) 36.6 Cheri 08/23/2024 14:00:00 [facility] SpO2 99 % 08/23/2024 14:00:00 [facility] Respiratory Rate 16 breaths/min 08/23/2024 14:00:00 [facility] Respiratory Rate 16 breaths/min 08/23/2024 10:23:08 [facility] SBP NIBP 116 mm[Hg] 08/23/2024 10:23:08 [facility] DBP NIBP 55 mm[Hg] 08/23/2024 10:23:08 [facility] Mean NIBP 75 mm[Hg] 08/23/2024 10:23:08 [facility] Heart Rate 74 bpm 08/23/2024 10:23:08 [facility] Temperature (Celsius) 36.7 Cheri 08/23/2024 10:23:08 [facility] SpO2 98 % 08/23/2024 10:23:08 [facility] SBP NIBP 105 mm[Hg] 08/23/2024 05:00:00 [facility] DBP NIBP 59 mm[Hg] 08/23/2024 05:00:00 [facility] SpO2 96 % 08/23/2024 05:00:00 [facility] Temperature (Celsius) 36.5 Cheri 08/23/2024 05:00:00 [facility] Respiratory Rate 14 breaths/min 08/23/2024 05:00:00 [facility] Heart Rate 68 bpm 08/23/2024 05:00:00 [facility] SBP NIBP 108 mm[Hg] 08/23/2024 03:08:17 [facility] DBP NIBP 58 mm[Hg] 08/23/2024 03:08:17 [facility] Mean NIBP 75 mm[Hg] 08/23/2024 03:08:17 [facility] SpO2 98 % 08/23/2024 03:08:17 [facility] Heart Rate 75 bpm 08/23/2024 03:08:17 [facility] Temperature (Celsius) 36.7 Cheri 08/23/2024 03:08:17 [facility] Respiratory Rate 16 breaths/min 08/23/2024 03:08:17 [facility] Mean NIBP 99 mm[Hg] 08/22/2024 18:05:15 [facility] BMI 22.4 kg/m2 08/19/2024 18:03:00 [facility] Height (cm) 182.8 cm 08/19/2024 18:03:00 [facility] Weight (kg) 74.7 kg 08/19/2024 18:03:00 [facility] BSA Negin 1.96 08/19/2024 18:03:00 [facility] Weight (kg) 74.7 kg 08/19/2024 18:00:00 [facility] SBP NIBP 110 mm[Hg] 07/26/2024 19:23:58 [facility] DBP NIBP 69 mm[Hg] 07/26/2024 19:23:58 [facility] Mean NIBP 82 mm[Hg] 07/26/2024 19:23:58 [facility] Heart Rate 93 bpm 07/26/2024 19:23:58 [facility] SBP NIBP 102 mm[Hg] 07/26/2024 18:03:37 [facility] DBP NIBP 64 mm[Hg] 07/26/2024 18:03:37 [facility] Mean NIBP 77 mm[Hg] 07/26/2024 18:03:37 [facility] Heart Rate 77 bpm 07/26/2024 18:03:37 [facility] Temperature (Celsius) 36.8 Cheri 07/26/2024 18:03:37 [facility] SBP NIBP 119 mm[Hg] 07/26/2024 17:28:31 [facility] DBP NIBP 78 mm[Hg] 07/26/2024 17:28:31 [facility] Mean NIBP 92 mm[Hg] 07/26/2024 17:28:31 [facility] Heart Rate 89 bpm 07/26/2024 17:28:31 [facility] Temperature (Celsius) 36.7 Cheri 07/26/2024 17:28:31 [facility] SBP NIBP 106 mm[Hg] 07/26/2024 16:52:21 [facility] DBP NIBP 67 mm[Hg] 07/26/2024 16:52:21 [facility] Mean NIBP 80 mm[Hg] 07/26/2024 16:52:21 [facility] Heart Rate 108 bpm 07/26/2024 16:52:21 [facility] [facility] SpO2 99 % 07/26/2024 16:52:21 [facility] Ancillaries Temperature (Celsius) 36.7 Cheri 07/26/2024 16:52:21 [facility] Ancillaries SpO2 99 % 07/24/2024 19:31:46 [facility] Temperature (Celsius) 36.8 Cheri 07/24/2024 19:31:46 [facility] Respiratory Rate 18 breaths/min 07/24/2024 19:31:46 [facility] SBP NIBP 100 mm[Hg] 07/24/2024 19:31:46 [facility] DBP NIBP 55 mm[Hg] 07/24/2024 19:31:46 [facility] Heart Rate 78 bpm 07/24/2024 19:31:46 [facility] Mean NIBP 70 mm[Hg] 07/24/2024 19:31:46 [facility] Respiratory Rate 18 breaths/min 07/24/2024 15:58:42 [facility] SBP NIBP 108 mm[Hg] 07/24/2024 15:58:42 [facility] DBP NIBP 67 mm[Hg] 07/24/2024 15:58:42 [facility] Temperature (Celsius) 36.7 Cheri 07/24/2024 15:58:42 [facility] Mean NIBP 80 mm[Hg] 07/24/2024 15:58:42 [facility] SpO2 98 % 07/24/2024 15:58:42 [facility] Heart Rate 79 bpm 07/24/2024 15:58:42 [facility] Heart Rate 82 bpm 07/24/2024 08:46:36 [facility] Mean NIBP 77 mm[Hg] 07/24/2024 08:46:36 [facility] Temperature (Celsius) 36.6 Cheri 07/24/2024 08:46:36 [facility] SpO2 98 % 07/24/2024 08:46:36 [facility] SBP NIBP 103 mm[Hg] 07/24/2024 08:46:36 [facility] DBP NIBP 64 mm[Hg] 07/24/2024 08:46:36 [facility] Respiratory Rate 16 breaths/min 07/24/2024 08:00:00 [facility] Temperature (Celsius) 36.1 Cheri 07/24/2024 06:07:10 [facility] SpO2 98 % 07/24/2024 06:07:10 [facility] Heart Rate 92 bpm 07/24/2024 06:07:10 [facility] Mean NIBP 83 mm[Hg] 07/24/2024 06:07:10 [facility] SBP NIBP 110 mm[Hg] 07/24/2024 06:07:10 [facility] DBP NIBP 69 mm[Hg] 07/24/2024 06:07:10 [facility] Respiratory Rate 16 breaths/min 07/24/2024 06:00:00 [facility] Unable to Obtain V/S Other: sleeping 07/22/2024 18:00:00 [facility] BSA Negin 1.93 07/19/2024 18:15:00 [facility] (cm) 182.8 cm 07/19/2024 18:15:00 [facility] BMI 21.6 kg/m2 07/19/2024 18:15:00 [facility] Weight (kg) 72.1 kg 07/19/2024 18:15:00 [facility] SBP NIBP 111 mm[Hg] 07/08/2024 13:01:24 [facility] DBP NIBP 75 mm[Hg] 07/08/2024 13:01:24 [facility] Mean NIBP 87 mm[Hg] 07/08/2024 13:01:24 [facility] Heart Rate 93 bpm 07/08/2024 13:01:24 [facility] Anc[facility]aries SpO2 98 % 07/08/2024 13:01:24 [facility] Temperature (Celsius) 37.1 Cheri 07/08/2024 13:01:24 [facility] Respiratory Rate 16 breaths/min 07/08/2024 13:01:24 [facility] SBP NIBP 128 mm[Hg] 07/01/2024 21:39:13 [facility] DBP NIBP 76 mm[Hg] 07/01/2024 21:39:13 [facility] Mean NIBP 93 mm[Hg] 07/01/2024 21:39:13 [facility] Heart Rate 70 bpm 07/01/2024 21:39:13 [facility] SpO2 99 % 07/01/2024 21:39:13 [facility] Temperature (Celsius) 37 Cheri 07/01/2024 21:39:13 [facility] Respiratory Rate 16 breaths/min 07/01/2024 21:39:13 [facility] Heart Rate 97 bpm 07/01/2024 18:00:00 [facility] SBP NIBP 132 mm[Hg] 07/01/2024 18:00:00 [facility] DBP NIBP 92 mm[Hg] 07/01/2024 18:00:00 [facility] Mean NIBP 105 mm[Hg] 07/01/2024 18:00:00 [facility] SpO2 99 % 07/01/2024 18:00:00 [facility] SBP NIBP 123 mm[Hg] 07/01/2024 13:59:37 [facility] DBP NIBP 76 mm[Hg] 07/01/2024 13:59:37 [facility] Mean NIBP 92 mm[Hg] 07/01/2024 13:59:37 [facility] Heart Rate 76 bpm 07/01/2024 13:59:37 [facility] SpO2 99 % 07/01/2024 13:59:37 [facility] Temperature (Celsius) 37.3 Cheri 07/01/2024 13:00:00 [facility] Temperature (Celsius) 36.6 Cheri 07/01/2024 09:00:00 [facility] Heart Rate 70 bpm 07/01/2024 09:00:00 [facility] Respiratory Rate 14 07/01/2024 09:00:00 [facility] SBP NIBP 132 mm[Hg] 07/01/2024 09:00:00 [facility] DBP NIBP 70 mm[Hg] 07/01/2024 09:00:00 [facility] SpO2 98 % 07/01/2024 09:00:00 [facility] Dosing Weight (kg) 74.5 kg 07/01/2024 09:00:00 [facility] Height (cm) 182.8 cm 07/01/2024 09:00:00 [facility] Weight (kg) 74.2 kg 07/01/2024 09:00:00 [facility] BMI 22.2 kg/m2 07/01/2024 09:00:00 [facility] Temperature (Celsius) 36.6 Cheri 07/01/2024 05:00:00 [facility] Respiratory Rate 14 07/01/2024 05:00:00 [facility] Mean NIBP 94 mm[Hg] 07/01/2024 01:03:36 [facility] Respiratory Rate 14 breaths/min 07/01/2024 01:03:36 [facility] Dosing Weight (kg) 74.5 kg 06/30/2024 09:00:00 [facility] Height (cm) 182.8 cm 06/30/2024 09:00:00 [facility] Weight (kg) 74.1 kg 06/30/2024 09:00:00 [facility] BMI 22.2 kg/m2 06/30/2024 09:00:00 [facility] Dosing Weight (kg) 74.5 kg 06/29/2024 09:00:00 [facility] Height (cm) 182.8 cm 06/29/2024 09:00:00 [facility] Weight (kg) 74.3 kg 06/29/2024 09:00:00 [facility] BMI 22.2 kg/m2 06/29/2024 09:00:00 [facility] Weight (kg) 74.5 kg 06/28/2024 09:00:00 [facility] Dosing Weight (kg) 74.5 kg 06/28/2024 09:00:00 [facility] Height (cm) 182.8 cm 06/28/2024 09:00:00 [facility] BMI 22.3 kg/m2 06/28/2024 09:00:00 [facility] SBP NIBP 128 mm[Hg] 06/04/2024 13:44:23 [facility] DBP NIBP 71 mm[Hg] 06/04/2024 13:44:23 [facility] Mean NIBP 90 mm[Hg] 06/04/2024 13:44:23 [facility] Heart Rate 113 bpm 06/04/2024 13:44:23 [facility] SpO2 99 % 06/04/2024 13:44:23 [facility] Respiratory Rate 16 breaths/min 06/04/2024 13:44:23 [facility] Temperature (Celsius) 36.7 Cheri 06/04/2024 09:00:00 [facility] Heart Rate 99 bpm 06/04/2024 09:00:00 [facility] Respiratory Rate 14 breaths/min 06/04/2024 09:00:00 [facility] SBP NIBP 125 mm[Hg] 06/04/2024 09:00:00 [facility] DBP NIBP 71 mm[Hg] 06/04/2024 09:00:00 [facility] Mean NIBP 89 mm[Hg] 06/04/2024 09:00:00 [facility] SpO2 99 % 06/04/2024 09:00:00 [facility] Temperature (Celsius) 36.6 Cheri 06/04/2024 05:00:00 [facility] Heart Rate 112 bpm 06/04/2024 05:00:00 [facility] Respiratory Rate 16 breaths/min 06/04/2024 05:00:00 [facility] SBP NIBP 134 mm[Hg] 06/04/2024 05:00:00 [facility] DBP NIBP 73 mm[Hg] 06/04/2024 05:00:00 [facility] Mean NIBP 93 mm[Hg] 06/04/2024 05:00:00 [facility] SpO2 100 % 06/04/2024 05:00:00 [facility] Temperature (Celsius) 36.7 Cheri 06/04/2024 01:00:00 [facility] Heart Rate 105 bpm 06/04/2024 01:00:00 [facility] Respiratory Rate 16 breaths/min 06/04/2024 01:00:00 [facility] SBP NIBP 139 mm[Hg] 06/04/2024 01:00:00 [facility] DBP NIBP 79 mm[Hg] 06/04/2024 01:00:00 [facility] Mean NIBP 99 mm[Hg] 06/04/2024 01:00:00 [facility] SpO2 100 % 06/04/2024 01:00:00 [facility] Height (cm) 182.8 cm 06/04/2024 01:00:00 [facility] Temperature (Celsius) 36.4 Cheri 06/03/2024 21:46:17 [facility] Height (cm) 182.8 cm 06/03/2024 13:00:00 [facility] Height (cm) 182.8 cm 06/03/2024 01:00:00 [facility] Encounters Location Location Details Encounter Type Encounter Number Reason For Visit Attending Provider ADM Date DC Date Status Source Estevan Schrader 1st Floor Between Visit [id number] 06/20 17:36 :39 06/21 04:59 :59 [facility] Inpatient [id number] [facility] 06/27 18:28 :39 07/01 22:55 :00 [facility]FC [facility] Outpatient [id number] [facility] 07/08 12:14 :16 07/09 04:59 :59 [facility] Inpatient [id number] [facility] 07/19 18:15 :17 07/24 21:08 :00 [facility] EF-BLOOD DRAW Outpatient [id number] [facility] 07/26 14:38 :27 07/27 05:59 :59 [facility]FC [facility]U Outpatient [id number] [facility] 07/26 14:39 :04 07/27 05:59 :59 [facility] Non-Admit [id number] [facility] 08/09 15:47 :09 08/10 05:59 :59 [facility] Inpatient [id number] [facility] ALL Dario Cale 08/19 12:02 :42 08/23 16:45 :[address] [facility] AIU Outpatient [id number] Heike Barrientos 09/03 15:38 :16 09/04 05:59 :59 [facility] EF-BLOOD DRAW Outpatient [id number] Heike Barrientos 09/12 14:59 :19 09/13 05:59 :59 [facility] [id number] Heikeoswaldo Barrientos 09/12 14:59 :54 09/13 05:59 :59 [facility] Inpatient [id number] Kyaw Isael 09/12 18:01 :07 09/18 19:05 :00 [facility] EF-BLOOD DRAW Outpatient [id number] Heikeoswaldo Barrientos 10/25 13:35 :55 10/26 05:59 :59 [facility] [id number] Heikeoswaldo Barrientos 10/25 13:36 :38 10/26 05:59 :[address] [facility] Education [facility]3] Care [id number] Heikeoswaldo Barrientos 11/06 21:25 :03 11/07 05:59 :[address] [facility] AIU Outpatient [id number] Heike Barrientos 11/12 16:10 :56 11/13 05:59 :59 [facility] EF-BLOOD DRAW Outpatient [id number] Heikeoswaldo Barrientos 02/28 15:17 :28 03/01 04:59 :59 [facility] [id number] Heikeoswaldo Barrientos 02/28 15:18 :04 03/01 04:59 :59 [facility] EFBLOOD DRAW Outpatient [id number] Heike Barrientos 04/18 13:35 :11 04/19 04:59 :59 [facility] [id number] Vero Sainz 04/18 13:35 :58 04/19 04:59 :59 [facility] Procedures Procedure Code Date Perfomer Comments Source ear tubes [facility] Plan of Care Plan of Care Date Source No data available for this section 04/19/2025 [facility] Ancillaries Social History Social History Date Source No data available for this section 04/19/2025 [facility] No data available for this section 03/01/2025 [facility] No data available for this section 11/13/2024 [facility] No data available for this section 11/07/2024 [facility] No data available for this section 10/26/2024 [facility] No data available for this section 09/18/2024 [facility] No data available for this section 09/13/2024 [facility] No data available for this section 09/04/2024 [facility] No data available for this section 08/23/2024 [facility] No data available for this section 08/10/2024 [facility] No data available for this section 07/27/2024 [facility] No data available for this section 07/24/2024 [facility] No data available for this section 07/09/2024 [facility] No data available for this section 07/01/2024 [facility] No data available for this section 06/21/2024 [facility] No data available for this section 06/04/2024 [facility]
[2025-06-01 09:56] VITALS: BP 142/88; PULSE 128; RESP 17; TEMP 37.3; O2SAT 96; BMI 25.0
--- NOTE | 2025-06-01 10:13 | ED_ITS ---
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 Pain reportedly started shortly after he resumed his oral chemotherapy. He describes the pain as diffuse, aching, and persistent, and notes that it has not improved with oral Ewing. States the pain started in his low back, but is now up to his chest, neck, and jaw. States that he has had this pain similar in the past but never this bad. He is not reporting any fever, chills, shortness of breath, nausea, vomiting, or focal neurological symptoms. He has no localized swelling or redness, and no recent trauma. On presentation noted be tachycardic, but otherwise hemodynamically stable. He reports good adherence to his oral chemotherapy regimen prior to this episode. He has no new medications aside from his resumed chemotherapy. No signs of infection. He last saw Dr. Montgomery on 05/06, where he was there for routine follow- up. Noted that he had been going to [facility] for chemotherapy, but there is note that he was recently switched to all p.o. medications but 1 that a special order and had not arrived yet, this likely could be the new medication he is discussing. Takes oral vincristine. MD elicited complaint: other (diffuse pain) Pertinent past history: cancer Onset (ago): day(s) Timing: constant Severity: similar to previous episodes Similar Symptoms Previously: Yes Context: other (hx of cancer, recently resumed oral chemotherapy) Associated symptoms: Deny abdominal pain, chills, dysuria, fatigue, fever(s), nausea or vomiting Treatments prior to arrival: prescription analgesics Related Data Home Medications ?Medication ?Instructions ?Recorded ?Confirmed polyethylene glycol 3350 17 4 g PO DAILY PRN Constipat ion 04/25/24 05/06/25 gram/dose oral powder sennosides 8.6 mg tablet 8.6 mg PO BID PRN Constipati on 04/25/24 05/06/25 sertraline 50 mg tablet 50 mg PO DAILY 11/04/2404/18 hydroxyzine HCl 25 mg tablet 25 mg PO DAILY 11/15/24 0 05/06/25 morphine 15 mg tablet,extended 15 mg PO DAILY 11/15/24 05/06/25 release prednisone 50 mg tablet 50 mg PO DAILY 11/15/2404/18 Previous Rx's ?Medication ?Instructions ?Recorded fluconazole 100 mg tablet 100 mg PO DAILY fungal infec tion 11/25/24 prevention #90 tabs methotrexate sodium 5 mg tablet 40 mg (8 x 5 mg) PO Q7 D #28 tabs 11/25/24 sulfamethoxazole 800 1 tab PO MOWEFR #24 tabs 07/12 mg-trimethoprim 160 mg tablet (Bactrim DS) valacyclovir 500 mg tablet 500 mg PO BID #60 tabs 11/16 mercaptopurine 50 mg tablet 50 mg PO TID 84 days #84 t abs 12/10/24 lidocaine-prilocaine 2.5 %-2.5 % 1 applic [employer] PLEX #30 grams 01/28/25 topical cream mercaptopurine 50 mg tablet 50 mg PO TID #90 tabs 02/16 10/12 prednisone 50 mg tablet 100 mg (2 x 50 mg) PO DAILY 5 days 03/04/25 #10 tabs amoxicillin 875 mg-potassium 1 tab PO BID 10 days #20 tabs 03/13/25 clavulanate 125 mg tablet prednisone 50 mg tablet 200 mg (4 x 50 mg) PO DAILY 5 days 04/01/25 #5 tabs hydrocodone 5 mg-acetaminophen 325 5 - 325 tab PO Q8H PRN Pain, 04/09/25 mg tablet Moderate 30 days #90 tabs methotrexate sodium 2.5 mg tablet 2.5 mg PO Q7D #64 ta bs 04/09/25 Allergies Allergy/AdvReac Type Severity Reaction Status Date / Time No Known Allergies Allergy Verified 05/06/25 08:35 Review of Systems 2 General: Reports: 10 or more systems reviewed and unremarkable except in HPI and below Const: Denies: fever(s), chills or fatigue Eyes: Denies: change in vision ENMT: Denies: throat pain, ear or mastoid pain or nasal discharge Card: Denies: chest pain, palpitations, swelling of feet/ankles or lightheadedness Resp: Denies: dyspnea, productive cough or wheezing GI: Denies: abdominal pain, nausea, vomiting, diarrhea or constipation : Denies: flank pain, difficulty urinating, dysuria or urinary frequency Musc: Reports: other (diffuse pain) Skin/Breast: Denies: rash Neuro: Denies: headache(s), numbness in extremities or weakness in extremities PFSH ED 2 PFSH: Medical History Pancytopenia Acute leukemia Poor dentition Social History Smoking and tobacco/nicotine status: never used tobacco/nicotine Physical Exam 2 Const: COMMON NORMALS: no acute distress, patient oriented x3 and no limitations GENERAL APPEARANCE: cooperative, comfortable and well developed ORIENTATION/CONSCIOUSNESS: Yes awake, Yes oriented to person, Yes oriented to place and Yes oriented to time OTHER: Nontoxic-appearing HENMT: COMMON NORMALS: normocephalic, atraumatic and hearing grossly normal bilaterally HEAD & SCALP: normocephalic and atraumatic Eye: COMMON NORMALS: Equal, round and reactive pupils present, EOMs intact bilaterally and conjunctivae normal CONJUNCTIVA: Yes conjunctivae normal P UPIL: Yes Equal, round and reactive pupils present Neck/C-Spine: COMMON NORMALS: full ROM, supple and no JVD Resp: COMMON NORMALS: normal respiratory effort, No retractions, No use of accessory muscles and clear to auscultation bilaterally AUSCULTATION: clear to auscultation bilaterally Cardio: COMMON NORMALS: no JVD, regular rhythm, No clicks present (Cardio), No murmurs present (Cardio) and No rub (Cardio) RATE: tachycardic RHYTHM: r egular rhythm GI: COMMON NORMALS: Normal to inspection, nondistended, normoactive bowel sounds present, Soft to palpation and non-tender AUSCULTATION: Yes normoactive bowel sounds PALPATION: Yes Soft to palpation RECTAL EXAM: Yes deferred Back/Pelvis: COMMON NORMALS: thoracic and lumbar spine normal to inspection, no thoracic nor lumbar tenderness and thoraco-lumbar ROM normal Extremity: COMMON NORMALS: normal to inspection, full ROM and capillary refill normal Neuro: COMMON NORMALS: patient oriented x3, CN's II-XII intact bilaterally, moves all extremities, no focal motor deficits and no sensory deficits noted SENSORIUM/ORIENTATION: Yes oriented to person, Yes oriented to place and Yes oriented to time Skin: COMMON NORMALS: no rashes or lesions noted GENERAL SKIN EXAM: no rashes or lesions noted Course 2 Vital Signs: Vital signs: Vital Signs Temperature 99.1 F 06/01/25 09:56 Pulse Rate 71 06/01/25 12:04 Respiratory Rate 17 06/01/25 09:56 Blood Pressure 129/76 06/01/25 12:04 Pulse Oximetry 97 06/01/25 12:04 Oxygen Delivery Me thod Room Air 06/01/25 11:30 MDM - Back Pain/Injury Medical Decision Making Patient presenting with diffuse pain, history of ALL and sees Dr. Ruvalcaba. Recently was started on methotrexate and mercaptopurine, also receives IV vincristine. States he has been dealing with diffuse pain for the past few days, history of similar but never this severe. Takes Ewing at home for pain, he arrived tachycardic and slightly uncomfortable appearing but nontoxic. CBC showing platelet count of 24 which is markedly decreased from his last value a month ago, white blood cell count of 1.7. CRP and ESR were not significantly elevated. I spoke to Dr. Ruvalcaba, stating this is likely from the new medications and he is to hold the methotrexate mercaptopurine for a week and will follow-up with the patient in the office. Patient's pain controlled here, on recheck he is no longer tachycardic and he will be allowed discharge stricter precautions such as any fever development, nausea/vomiting, or any other major concerns. Labs 06/01/25 10:37 06/01/25 10:37 Laboratory Results WBC 1.70 10^3/uL (3.29-11.43) L 06/01/25 10:37 RBC 3.75 10^6/uL (3.85-5.65) L 06/01/25 10:37 Hgb 12.80 g/dL (11.27-16.99) 06/01/25 10:37 Hct 37.0 % (37-53) 06/01/25 10:37 MCV 98.7 fl (82-101) 06/01/25 10:37 MCH 34.1 pg (27-33) H 06/01/25 10:37 MCHC 34.6 g/dL (30-55) 06/01/25 10:37 RDW 14.2 % (12.1-15.1) 06/01/25 10:37 Plt Count 24 10^3/cmm (157-399) L* 06/01/25 10:37 MPV TNP 06/01/25 10:37 Neut % (Auto) 4.0 % 06/01/25 10:37 Lymph % (Auto) 54.7 % 06/01/25 10:37 [place] % (Auto) 31.2 % 06/01/25 10:37 Eos % (Auto) 6.5 % 06/01/25 10:37 Baso % (Auto) 2.4 % 06/01/25 10:37 Neut # (Auto) 0.07 10^3/uL (1.8-7.7) L* 06/01/25 10:37 Lymph # (Auto) 0.9 10^3/uL (0.8-4.8) 06/01/25 10:37 [place] # (Auto) 0.5 10^3/uL (0.2-0.9) 06/01/25 10:37 Eos # (Auto) 0.1 10^3/uL (0.0-0.8) 06/01/25 10:37 Baso # (Auto) 0.0 10^3/uL (0.0-0.1) 06/01/25 10:37 Nucleated RBC % (auto) 4.7 % 06/01/25 10:37 Nucleated RBCs # 0.1 /100WBC 06/01/25 10:37 ESR 16 mm/hr (0-10) H 06/01/25 10:37 Sodium 137 mmol/L (136-145) 06/01/25 10:37 Potassium 3.3 mmol/L (3.5-5.1) L 06/01/25 10:37 Chloride 100 mmol/L (98-107) 06/01/25 10:37 Carbon Dioxide 24 mmol/L (22-29) 06/01/25 10:37 Anion Gap 16.3 (5-19) 06/01/25 10:37 BUN 8 mg/dL (6-20) 06/01/25 10:37 Creatinine 0.6 mg/dL (0.7-1.2) L 06/01/25 10:37 GFR Calculation 162.9 mL/min (90-130) H 06/01/25 10:37 Glucose 113 mg/dL (65-115) 06/01/25 10:37 Calculated Osmolality 283 mOsm/kg (285-295) L 06/01/25 10:37 Uric Acid 6.6 mg/dL (3.4-7.0) 06/01/25 10:37 Calcium 9.1 mg/dL (8.5-10.5) 06/01/25 10:37 Total Bilirubin 0.4 mg/dL (0.15-1.2) 06/01/25 10:37 AST 59 U/L (0-40) H 06/01/25 10:37 ALT 50 U/L (0-41) H 06/01/25 10:37 Alkaline Phosphatase 129 U/L (40-130) 06/01/25 10:37 Lactate Dehydrogenase > 3183 U/L (135-225) H 06/01/25 10:37 C-Reactive Protein 11.9 mg/L (0.0-4.9) H 06/01/25 10:37 Total Protein 6.3 g/dL (6.6-8.7) L 06/01/25 10:37 Albumin 4.3 g/dL (3.5-5.2) 06/01/25 10:37 Globulin 2.0 g/dL (1.3-4.6) 06/01/25 10:37 No radiology studies performed this visit Discharge Plan Discharge Patient Disposition: Home Clinical Impression: Myalgia Acute lymphoblastic leukemia (ALL) Qualifiers: Leukemia Active/Remission status: in remission Qualified Code(s): C91.01 - Acute lymphoblastic leukemia, in remission Condition: Stable Prescriptions: No Action polyethylene glycol 3350 17 gram/dose powder 4 g PO DAILY PRN (Reason: Constipation) sennosides 8.6 mg tablet 8.6 mg PO BID PRN (Reason: Constipation) sertraline 50 mg tablet 50 mg PO DAILY prednisone 50 mg tablet 50 mg PO DAILY hydroxyzine HCl 25 mg tablet 25 mg PO DAILY morphine 15 mg tablet extended release 15 mg PO DAILY prednisone 50 mg tablet 100 mg PO DAILY 5 Days Qty: 10 0RF Rx Instructions: take on days 1-5 of a 28 day cycle amoxicillin-pot clavulanate 875-125 mg tablet 1 tab PO BID 10 Days Qty: 20 0RF lidocaine-prilocaine 2.5-2.5 % cream 1 applic topical .COMPLEX Qty: 30 2RF Rx Instructions: Apply quarter-size amount to port site 30 minutes prior to access; cover with cling wrap fluconazole 100 mg tablet 100 mg PO DAILY Qty: 90 2RF valacyclovir 500 mg tablet 500 mg PO BID Qty: 60 5RF sulfamethoxazole-trimethoprim [Bactrim DS] 800-160 mg tablet 1 tab PO MOWEFR Qty: 24 5RF methotrexate sodium 5 mg tablet 40 mg PO Q7D Qty: 28 5RF Rx Instructions: Take on the same day of the week every week. Do not alternate days. mercaptopurine 50 mg tablet 50 mg PO TID Qty: 90 5RF methotrexate sodium 2.5 mg tablet 2.5 mg PO Q7D Qty: 64 0RF Rx Instructions: 16 tablets by mouth every 7 days hydrocodone-acetaminophen 5-325 mg tablet 5 - 325 tab PO Q8H PRN (Reason: Pain, Moderate) 30 Days Qty: 90 0RF mercaptopurine 50 mg Tablet 50 mg PO TID 84 Days Qty: 84 0RF prednisone 50 mg Tablet 200 mg PO DAILY 5 Days Qty: 5 0RF Rx Instructions: take on days 1-5 of a 28 day cycle Discharge Orders: Discharge ED (Routine); Ordered 06/01/25 Ordered By: Horace Friend Patient Instructions: Patient Portal & Jonny Instructions Activity Restrictions/Additional Instructions: ALL Maintenance Discharge Diagnosis: Acute lymphoblastic leukemia (ALL), currently in maintenance phase with methotrexate and mercaptopurine. Hospital Course: The patient presented with diffuse pain while on maintenance therapy. After discussion with oncology, methotrexate and mercaptopurine are to be held for one week due to concern for possible drug-related toxicity. The patient is stable for discharge with instructions for close outpatient follow- up. Discharge Instructions: - Medication Management: - Hold methotrexate and mercaptopurine for one week as directed by oncology. Maintenance therapy with these agents is essential for ALL cure, but dose interruptions or reductions are indicated in the setting of toxicity or adverse effects.[1] https://pubmed.ncbi.nlm.nih.gov/50087735 [2] https://pubmed.ncbi.nlm.nih.gov/78093475 - Continue prescribed pain medications at home as needed and as directed. - Monitoring and Follow-up: - Follow up in the oncology clinic as scheduled for reassessment and to determine when to resume maintenance therapy. - Routine laboratory monitoring (CBC with differential, liver function tests) is recommended during and after maintenance therapy interruptions to assess for myelosuppression, hepatotoxicity, and other adverse effects.[3] https://dailyhotelsmap.com.[employer].gov/dailymed/drugInfo.cfm?mlimx=[email or web address] -[id number] [4] https://dailyhotelsmap.com.[employer].nih.gov/dailymed/drugInfo.cfm?pkyii=[email or web address] -[id number] [2] https://pubmed.ncbi.nlm.nih.gov/06812724 - Signs and Symptoms Warranting Immediate Medical Attention: - New or worsening fever, chills, or other signs of infection (due to risk of myelosuppression and immunosuppression).[3] https://dailyhotelsmap.com.[employer].gov/dailymed/drugInfo.cfm?mafsq=[email or web address]-seh1 -[id number] [4] https://dailyhotelsmap.com.[employer].nih.gov/dailymed/drugInfo.cfm?lxzdq=[email or web address]-l491 -[id number] - Easy bruising, bleeding, or petechiae (possible cytopenias). - New or worsening cough, shortness of breath, or chest pain (possible pulmonary toxicity). - Severe or persistent abdominal pain, vomiting, diarrhea, or evidence of gastrointestinal bleeding (hematemesis, melena).[3] https://dailyhotelsmap.com.[employer].gov/dailymed/drugInfo.cfm?xjcoe=[email or web address] -[id number] [4] https://dailyhotelsmap.com.[employer].gov/dailymed/drugInfo.cfm?fnmsr=[email or web address]-x088 -[id number] - Jaundice, dark urine, or right upper quadrant pain (possible hepatotoxicity). - New or worsening skin rash or mucosal ulcerations (possible dermatologic toxicity). - Any neurological changes, such as confusion, severe headache, or seizures. - General Recommendations: - Avoid excessive sun exposure and use sun protection, as methotrexate can increase photosensitivity.[3] https://dailymed.[employer].nih.gov/dailymed/drugInfo.cfm?noqsn=[email or web address]-uou5 -[id number] [4] https://dailymed.[employer].nih.gov/dailymed/drugInfo.cfm?agidu=[email or web address]-o292 -[id number] - Maintain adequate hydration and nutrition. - Do not resume methotrexate or mercaptopurine until cleared by oncology. Rationale: Maintenance therapy with methotrexate and mercaptopurine is associated with significant interindividual variability in toxicity, including myelosuppression, hepatotoxicity, gastrointestinal, pulmonary, and dermatologic adverse effects. Temporary interruption is standard in the setting of toxicity, with resumption guided by clinical and laboratory recovery.[1] https://pubmed.ncbi.nlm.nih.gov/90921426 [3] https://dailymed.[employer].nih.gov/dailymed/drugInfo.cfm?s eoks=[id number] [4] https://dailyhotelsmap.com.[employer].nih.gov/dailymed/drugInfo.cfm?set qx=[id number] [2] https://pubmed.ncbi.nlm.nih.gov/26887322 Contact Information: For any of the above symptoms or concerns, contact the oncology clinic or present to the emergency department as appropriate. References * Maintenance Therapy for Acute Lymphoblastic Leukemia: Basic Science and Clinical Translations https://pubmed.ncbi.nlm.nih.gov/41317589 . Primo GAFFNEY, Simeon LAGUNAS, Rasheed JJ, Fannie K. Leukemia. 2021;36(7):8820-9203. doi:10.1038/d43472-088-53124-7. * Mercaptopurine/Methotrexate Maintenance Therapy of Childhood Acute Lymphoblastic Leukemia: Clinical Facts and Fiction https://pubmed.ncbi.nlm.nih.gov/78866732 . Fannie K, Desmond SN, Luis TL, Trinidad Saucedo. Journal of Pediatric Hematology/Oncology. 2014;36(7):503-17. doi:10.1097/MPH.[id number]. * [employer] https://dailymed.[employer].nih.gov/dailymed/drugInfo.cfm?eqxzg=[email or web address]-rz [id number] . Food and Drug Administration. Updated date: 2021-01-15. * [place]STA https://dailymed.[employer].nih.gov/dailymed/drugInfo.cfm?pkyow=[email or web address] [id number] . Food and Drug Administration. Updated date: 2025-01-13. Print Language: Ethiopian Coding Level of Care Code ED Nailer Hand for Marcelo Driscoll
[2025-06-01] MEDS: HYDROmorphone 0.5 MG/0.5 ML INJ IVP ×2 (10:41→11:40)
[2025-06-01 10:43] VITALS: BP 119/76; PULSE 91; O2SAT 95
[2025-06-01 10:43] LABS: Hematocrit 37.0 % (37-53); Hemoglobin 12.80 g/dL (11.27-16.99); Mean Corpuscular HGB Conc 34.6 g/dL (30-55); Mean Corpuscular Hemoglobin 34.1 pg (27-33); Mean Corpuscular Volume 98.7 fl (82-101); Nucleated Red Blood Cells % 4.7 %; Red Blood Count 3.75 10^6/uL (3.85-5.65); White Blood Count 1.70 10^3/uL (3.29-11.43)
[2025-06-01 11:00] LABS: Alanine Aminotransferase 50 U/L (0-41); Albumin Level 4.3 g/dL (3.5-5.2); Alkaline Phosphatase 129 U/L (40-130); Anion Gap 16.3 (5-19); Aspartate Amino Transferase 59 U/L (0-40); Blood Urea Nitrogen 8 mg/dL (6-20); Calcium 9.1 mg/dL (8.5-10.5); Carbon Dioxide 24 mmol/L (22-29); Chloride 100 mmol/L (98-107); Creatinine Clr Calc Pharmacy 217.4793; Globulin 2.0 g/dL (1.3-4.6); Glucose 113 mg/dL (65-115); Osmolality Calculated 283 mOsm/kg (285-295); Platelet Count 24 10^3/cmm (157-399); Potassium 3.3 mmol/L (3.5-5.1); Sodium 137 mmol/L (136-145); Total Protein 6.3 g/dL (6.6-8.7); Uric Acid 6.6 mg/dL (3.4-7.0)
[2025-06-01 11:01] LABS: Slide Review Slide Review Perform
[2025-06-01 11:30] VITALS: BP 135/85; PULSE 78; O2SAT 99
[2025-06-01 12:04] VITALS: BP 129/76; PULSE 71; O2SAT 97
== END 2025-06-01 12:11 | disposition home or self-care (01) ==
PROVIDERS: Emergency Provider Physician Assistant
DX: C91.01 Acute lymphoblastic leukemia, in remission (principal); M79.10 Myalgia, unspecified site
CPT/HCPCS: 36415; 80053; 83615; 84550; 85025; 85651; 86140; 87040; 96361; 96374; 96376; 99284; J1171; J7030; J9999

== ENCOUNTER 2025-06-03 07:48 | Oncology outpatient (recurring) (ONCR) | payer MEDICAID, SELFPAY ==
[2025-06-03 08:13] LABS: Hematocrit 37.3 % (37-53); Hemoglobin 12.80 g/dL (11.27-16.99); Mean Corpuscular HGB Conc 34.3 g/dL (30-55); Mean Corpuscular Hemoglobin 33.2 pg (27-33); Mean Corpuscular Volume 96.6 fl (82-101); Red Blood Count 3.86 10^6/uL (3.85-5.65); White Blood Count 2.08 10^3/uL (3.29-11.43)
[2025-06-03 08:36] LABS: Alanine Aminotransferase 62 U/L (0-41); Albumin Level 4.4 g/dL (3.5-5.2); Alkaline Phosphatase 97 U/L (40-130); Anion Gap 16.8 (5-19); Aspartate Amino Transferase 76 U/L (0-40); Blood Urea Nitrogen 7 mg/dL (6-20); Calcium 9.4 mg/dL (8.5-10.5); Carbon Dioxide 27 mmol/L (22-29); Chloride 101 mmol/L (98-107); Globulin 2.2 g/dL (1.3-4.6); Glucose 101 mg/dL (65-115); Osmolality Calculated 290 mOsm/kg (285-295); Potassium 3.8 mmol/L (3.5-5.1); Sodium 141 mmol/L (136-145); Total Protein 6.6 g/dL (6.6-8.7)
[2025-06-03 09:10] LABS: Slide Review Slide Review Perform
[2025-06-03 09:11] LABS: Absolute Segmented Neutrophil 0.1 10/cmm (1.6-7.1); Atypical Lymphs 23.0 % (0-5); Band Neutrophils Absolute 0.1 10^3/cmm (0.0-1.2); Macrocytosis 1+; Polychromasia 1+; Total Cells Counted 100 (0-100)
[2025-06-03 09:13] LABS: Platelet Count 9 10^3/cmm (157-399)
[2025-06-03 10:03] VITALS: RESP 17
[2025-06-03] MEDS: morphine 4 mg/mL SDV 1 mL 5 MG IVP ×3 (10:03→12:13)
[2025-06-03] MEDS: ertapenem 1,000 mg SDV 1000 MG IVP (10:18)
[2025-06-03 10:34] VITALS: RESP 17
[2025-06-03 12:12] VITALS: BP 115/70; PULSE 64; RESP 17; O2SAT 95
[2025-06-03 12:13] VITALS: RESP 17; O2SAT 95
[2025-06-03 12:55] VITALS: BP 127/75; PULSE 63; RESP 17; TEMP 36.6; O2SAT 97
--- NOTE | 2025-06-03 13:31 | XRR_ITS ---
PROCEDURE INFORMATION: Exam: XR Thoracic Spine Exam date and time: 06/03/2025 1:43 PM Age: 25 years old Clinical indication: Pain in thoracic spine; Prior surgery; Surgery date: 6+ months; Surgery type: Port; HX of leukemia; Additional info: Abnormal CT March 2025 and back pain TECHNIQUE: Imaging protocol: Radiologic exam of the thoracic spine. Views: 3 views. COMPARISON: CT abdomen pelvis w con* [id number] 04/08/2025 6:04 PM FINDINGS: Tubes, catheters and devices: Right chest wall infusion port in place with its distal end projecting at the level of the cavoatrial junction. Bones/joints: No significant degenerative disc changes. Soft tissues: Unremarkable. XR/XR thoracic spine 3V* [id number] IMPRESSION: 1. No acute osseous abnormalities. 2. No significant degenerative disc changes.
--- NOTE | 2025-06-03 13:31 | XRR_ITS ---
PROCEDURE INFORMATION: Exam: XR Lumbosacral Spine Exam date and time: 06/03/2025 1:43 PM Age: 25 years old Clinical indication: Low back pain; HX of leukemia TECHNIQUE: Imaging protocol: Radiologic exam of the lumbosacral spine. Views: 2 views. COMPARISON: CR XR lumbar spine 2-3V* [id number] 02/08/2024 5:30 AM FINDINGS: Bones/joints: No significant degenerative disc changes. Fractures. No bony destructive lesions. Soft tissues: Unremarkable. XR/XR lumbar spine 2-3V* [id number] IMPRESSION: 1. No acute osseous abnormalities. 2. No significant degenerative disc changes.
[2025-06-03 13:34] VITALS: BP 127/75; PULSE 63; RESP 18; TEMP 36.6; O2SAT 97
== END 2025-06-17 23:59 | disposition home or self-care (01) ==
PROVIDERS: Visit Provider Internal Medicine Medical Oncology
DX: C91.00 Acute lymphoblastic leukemia not having achieved remission (principal); Z79.899 Other long term (current) drug therapy; M54.50 Low back pain, unspecified; R03.0 Elevated blood-pressure reading, without diagnosis of hypertension; D69.6 Thrombocytopenia, unspecified; D70.1 Agranulocytosis secondary to cancer chemotherapy; T45.1X5A Adverse effect of antineoplastic and immunosuppressive drugs, initial encounter; H66.90 Otitis media, unspecified, unspecified ear; Z95.828 Presence of other vascular implants and grafts
CPT/HCPCS: 36430; 72072; 72100; 80053; 85007; 85025; 86900; 96374; 96375; 99215; J1335; J2270; J7050; J9999; P9035

== ENCOUNTER 2025-06-03 19:52 | Inpatient (IN) | payer MEDICAID, SELFPAY ==
--- OUTSIDE RECORDS SUMMARY | 2025-04-18 23:59 | XMS_ITS | Continuity of Care Document ---
Author Name [facility] Address [address] [place] [address] Organization [facility] Care Team Providers Care Hot Packer Name Role Phone [facility] Unavailable Unavailable Problems Problem Status Onset [...] potentially harmful entity (event) Diagnosis Jump from [facility] (finding) Diagnosis Pain in throat (finding) [...] (disorder) Diagnosis Nausea (finding) Diagnosis Jump from [facility] (finding) Diagnosis Systemic infection (disorder) Diagnosis [...] F, # 30 Tablet(s), Refill(s) 1, Pharmacy: [facility], bedside delivery please, 182.8, cm, 07/19/24 13:21:00 CDT, Height (cm), kg, 07/19/24 13:21:00 CDT, Weight (kg), 72.1 Active 2023 [facility] morphine sulfate 15 MG Extended Release Oral Tablet [MS Contin] 15 mg = 1 Tablet(s), Oral, q12h, # 60 Tablet(s), Refill(s) 0, Pharmacy: [facility] 15, 182.8, cm, 06/03/24 22:36:00 CDT, Height (cm), kg, 05/27/24 14:28:00 CDT, Weight (kg), 71.5 Active 2023 [facility] gabapentin 100 MG Oral Capsule 100 mg = 1 capsule(s), Oral, bid, # 60 capsule(s), Refill(s) 1, Pharmacy: [facility] 15, 182.8, cm, 06/03/24 22:36:00 CDT, Height (cm), kg, 05/27/24 14:28:00 CDT, Weight (kg), 71.5 Active 2023 [facility] Sulfamethoxazole 800 MG / Trimethoprim 160 MG Oral Tablet [Bactrim] trimethoprim 160 mg = 1 Tablet(s), Oral, qM W F, # 30 Tablet(s), Refill(s) 1, Pharmacy: [facility] 15, 182.8, cm, 06/03/24 22:36:00 CDT, Height (cm), kg, 05/27/24 14:28:00 CDT, Weight (kg), 71.5 Active 2023 [facility] Acetaminophen 325 MG / Hydrocodone Bitartrate 5 MG Oral Tablet 1 Tablet(s), Oral, q6h, Scheduled / PRN PRN Pain, Moderate, # 30 Tablet(s), Refill(s) 0, Pharmacy: [facility] 15, 182.8, cm, 06/03/24 22:36:00 CDT, Height (cm), kg, 05/27/24 14:28:00 CDT, Weight (kg), 71.5 Active 2023 [facility] Acyclovir 200 MG Oral Capsule 400 mg = 2 capsule(s), Oral, bid, # 60 capsule(s), Refill(s) 0, Pharmacy: [facility], 182.8, cm, 06/03/24 22:36:00 CDT, Height (cm), kg, 05/27/24 14:28:00 CDT, Weight (kg), 71.5 Active 2023 [facility] Fluconazole 200 MG Oral Tablet 400 mg = 2 Tablet(s), Oral, Daily, # 30 Tablet(s), Refill(s) 0, Pharmacy: [facility], bedside delivery (patient needs a refill prior to discharge), 182.8, cm, 06/03/24 22:36:00 CDT, Height (cm), kg, 05/27/24 14:28:00 CDT, Weight (kg), 71.5 Active 2023 [facility] Levofloxacin 500 MG Oral Tablet 500 mg = 1 Tablet(s), Oral, Daily, # 30 Tablet(s), Refill(s) 0, Pharmacy: [facility], bedside delivery, 182.8, cm, 06/03/24 22:36:00 CDT, Height (cm), kg, 05/27/24 14:28:00 CDT, Weight (kg), 71.5 Active 2023 [facility] Results Order Name Results Value Reference Range Date Interpretation Comments Source GENERAL CHEMISTRY Estimated GFR for peds Not Calculated mL/min/1.7 3m 04/18 13:51 :00 Interpretive Data: The estimated GFR was calculated using the Teddy barker Dorado equation (2009) . Reference: Pediatric GFR calculator at [employer] Website. [facility] GENERAL CHEMISTRY Estimated GFR for Adults 129 mL/min/1.7 3m 04/18 13:51 :00 Interpretive Data: Changed to CKD-EPI 2020 on 2020. [facility] GENERAL CHEMISTRY AST-SGOT 56 U/L 04/18 13:51 :00 [facility] GENERAL CHEMISTRY CO2 28 mmol/L - 04/18 13:51 :00 [facility] GENERAL CHEMISTRY Potassium 3.8 mmol/L 3.5 - 5.1 04/18 13:51 :00 [facility] GENERAL CHEMISTRY Sodium 138 mmol/L 136 - 145 04/18 13:51 :00 [facility] GENERAL CHEMISTRY Chloride 101 mmol/L 98 - 107 04/18 13:51 :00 [facility] GENERAL CHEMISTRY Glucose Lvl 92 mg/dL 70 - 139 04/18 13:51 :00 [facility] GENERAL CHEMISTRY Total Protein 7.0 g/dL 5.7 - 8.2 04/18 13:51 :00 [facility] GENERAL CHEMISTRY T Bili 0.98 mg/dL 0.30 - 1.20 04/18 13:51 :00 [facility] GENERAL CHEMISTRY Anion gap 13 mmol/L 0 - 20 04/18 13:51 :00 [facility] GENERAL CHEMISTRY Calcium 10.3 mg/dL 8.3 - 10.6 04/18 13:51 :00 [facility] GENERAL CHEMISTRY BUN 6 mg/dL 6 - 20 04/18 13:51 :00 [facility] GENERAL CHEMISTRY ALT-SGPT 111 U/L 10 - 50 04/18 13:51 :00 [facility] GENERAL CHEMISTRY Alkaline Phosphatase 87 U/L 40 - 129 04/18 13:51 :00 [facility] GENERAL CHEMISTRY Albumin 4.4 g/dL 3.4 - 5.0 04/18 13:51 :00 [facility] GENERAL CHEMISTRY Creatinine, standardized 0.7 mg/dL 0.7 - 1.2 04/18 13:51 :00 Interpretive Data: Aekcbi-kh-ork e transgender patients on testosterone therapy should have results assessed using the male reference range. Aktn-zt-nrgqm e transgender patients on hormone-modul ating therapy clinical judgment is advisedfor assessment. [facility] HEMATOLOGY PROFILES MCHC 32.0 g/dL 32.0 - 36.0 04/18 13:51 :00 [facility] HEMATOLOGY PROFILES MCH 33.9 pg 26.0 - 33.0 04/18 13:51 :00 [facility] HEMATOLOGY PROFILES PLT 284 x10(9)/L 150 - 450 04/18 13:51 :00 [facility] HEMATOLOGY PROFILES RDW SD 64.1 fL 35.1 - 43.9 04/18 13:51 :00 [facility] HEMATOLOGY PROFILES RDW CV 16.2 % 11.8 - 15.6 04/18 13:51 :00 [facility] HEMATOLOGY PROFILES WBC 4.04 x10(9)/L 3.50 - 10.50 04/18 13:51 :00 [facility] HEMATOLOGY PROFILES MPV 10.4 8.0 - 12.0 04/18 13:51 :00 [facility] HEMATOLOGY PROFILES MCV 105.8 fL 81.2 - 95.1 04/18 13:51 :00 [facility] HEMATOLOGY PROFILES HCT 38.4 % 38.8 - 50.0 04/18 13:51 :00 Interpretive Data: Nwwpgi-sy-qlw e transgender patients on testosterone therapy should have results assessed using the male reference range. Rtmk-es-qzsts e transgender patients on hormone-modul ating therapy clinical judgment is advisedfor assessment. [facility] HEMATOLOGY PROFILES HGB 12.3 g/dL 13.5 - 17.5 04/18 13:51 :00 Interpretive Data: Zslpnp-lb-kon e transgender patients on testosterone therapy should have results assessed using the male reference range. Kraf-dq-zoxur e transgender patients on hormone-modul ating therapy clinical judgment is advisedfor assessment. [facility] HEMATOLOGY PROFILES RBC 3.63 x10(12)/L 4.32 - 5.72 04/18 13:51 :00 [facility] HEMATOLOGY PROFILES QA Review Agree (04/18/25 8:51 AM) 04/18 13:51 :00 [facility] HEMATOLOGY PROFILES Aniso 1+ (10-20%) *NA* (04/18/25 8:51 AM) 04/18 13:51 :00 [facility] HEMATOLOGY PROFILES Macro 1+ (25-50%) *NA* (04/18/25 8:51 AM) 04/18 13:51 :00 [facility] HEMATOLOGY PROFILES Lymphocytes Manual 27.6 % 04/18 13:51 :00 [facility] HEMATOLOGY PROFILES Abs Eosinophils Manual 0.31 x10(9)/L 0.05 - 0.50 04/18 13:51 :00 [facility] HEMATOLOGY PROFILES Monocytes Manual 15.2 % 04/18 13:51 :00 [facility] HEMATOLOGY PROFILES Abs Monocytes Manual 0.61 x10(9)/L 0.30 - 0.90 04/18 13:51 :00 [facility] HEMATOLOGY PROFILES Neuts Manual 46.7 % 04/18 13:51 :00 [facility] HEMATOLOGY PROFILES Eosinophils Manual 7.6 % 04/18 13:51 :00 [facility] HEMATOLOGY PROFILES Reactive Lymphs Manual 2.9 % 04/18 13:51 :00 [facility] HEMATOLOGY PROFILES Internal Review Yes (04/18/25 8:51 AM) 04/18 13:51 :00 [facility] HEMATOLOGY PROFILES Abs Lymphocytes Manual 1.12 x10(9)/L 0.90 - 2.90 04/18 13:51 :00 [facility] HEMATOLOGY PROFILES Platelet Estimate Adequate *NA* (04/18/25 8:51 AM) 04/18 13:51 :00 [facility] HEMATOLOGY PROFILES Absolute Neutrophils Manual 1.89 x10(9)/L 1.70 - 7.00 04/18 13:51 :00 [facility] HEMATOLOGY PROFILES Abs Reactive Lymphs Manual 00.12 04/18 13:51 :00 [facility] HEMATOLOGY PROFILES Morphology Present *NA* (04/18/25 8:51 AM) 04/18 13:51 :00 [facility] REFERENCE LABS 6-Methylmerc aptopurine riboside 6.49 5.04 - 9.57 02/28 18:04 :00 [facility] REFERENCE LABS 6-Methylthio guanine riboside 2.82 2.70 - 5.84 02/28 18:04 :00 [facility] REFERENCE LABS TPMT3 Reviewed By See Comment 02/28 18:04 :00 Result Comment: RESULT: Jose L Bravo M.D., Ph.D. Test Performed by: [address] [address] Business Support Associate: Trista West Ph.D.; CLIA# [id number] [facility] REFERENCE LABS 6-Methylmerc aptopurine 4.64 3.00 - 6.66 02/28 18:04 :00 [facility] REFERENCE LABS TPMT Activity Profile, RBC Interp See Comment 02/28 18:04 :00 Result Comment: *Normal* In this whole blood sample, the profile of activity of thiopurine methyltransfe rase using three different substrates was normal or essentially normal. ------ADDITIO NAL INFORMATION-- ---- Liquid Chromatograph y-Tandem Mass Spectrometry (LC-MS/MS) This test was developed and its performance characteristi cs determined by [facility] in a manner consistent with CLIA requirements. This test has not been cleared or approved by the U.S. Food and Drug Administratio n. [facility] GENERAL CHEMISTRY Potassium 3.8 mmol/L 3.5 - 5.1 02/28 15:18 :00 [facility] GENERAL CHEMISTRY Sodium 140 mmol/L 136 - 145 02/28 15:18 :00 [facility] GENERAL CHEMISTRY Calcium 9.5 mg/dL 8.3 - 10.6 02/28 15:18 :00 [facility] GENERAL CHEMISTRY Chloride 102 mmol/L 98 - 107 02/28 15:18 :00 [facility] GENERAL CHEMISTRY Glucose Lvl 94 mg/dL 70 - 139 02/28 15:18 :00 [facility] GENERAL CHEMISTRY BUN 7 mg/dL 6 - 20 02/28 15:18 :00 [facility] GENERAL CHEMISTRY ALT-SGPT 179 U/L 10 - 50 02/28 15:18 :00 [facility] GENERAL CHEMISTRY AST-SGOT 95 U/L 02/28 15:18 :00 [facility] GENERAL CHEMISTRY Alkaline Phosphatase 136 U/L 40 - 129 02/28 15:18 :00 [facility] GENERAL CHEMISTRY Albumin 3.9 g/dL 3.4 - 5.0 02/28 15:18 :00 [facility] GENERAL CHEMISTRY Estimated GFR for peds Not Calculated mL/min/1.7 3m 02/28 15:18 :00 Interpretive Data: The estimated GFR was calculated using the Teddy barker Dorado equation (2009) . Reference: Pediatric GFR calculator at [employer] Website. [facility] GENERAL CHEMISTRY Estimated GFR for Adults 134 mL/min/1.7 02/28 15:18 :00 Interpretive Data: Changed to CKD-EPI 2020 on 2020. [facility] GENERAL CHEMISTRY Creatinine, standardized 0.6 mg/dL 0.7 - 1.2 02/28 15:18 :00 Interpretive Data: Iilzgj-oy-dnk e transgender patients on testosterone therapy should have results assessed using the male reference range. Bokl-lp-xpduw e transgender patients on hormone-modul ating therapy clinical judgment is advisedfor assessment. [facility] GENERAL CHEMISTRY Anion gap 15 mmol/L 0 - 20 02/28 15:18 :00 [facility] GENERAL CHEMISTRY CO2 27 mmol/L 20 - 31 02/28 15:18 :00 [facility] GENERAL CHEMISTRY Total Protein 6.1 g/dL 5.7 - 8.2 02/28 15:18 :00 [facility] GENERAL CHEMISTRY T Bili 1.14 mg/dL 0.30 - 1.20 02/28 15:18 :00 [facility] HEMATOLOGY PROFILES MCH 33.8 pg 26.0 - 33.0 02/28 15:18 :00 [facility] HEMATOLOGY PROFILES MCV 104.3 fL 81.2 - 95.1 02/28 15:18 :00 [facility] HEMATOLOGY PROFILES RDW CV 17.2 % 11.8 - 15.6 02/28 15:18 :00 [facility] HEMATOLOGY PROFILES MCHC 32.4 g/dL 32.0 - 36.0 02/28 15:18 :00 [facility] HEMATOLOGY PROFILES HCT 31.5 % 38.8 - 50.0 02/28 15:18 :00 Interpretive Data: Gcrrta-mo-adi e transgender patients on testosterone therapy should have results assessed using the male reference range. Tuup-to-ayqan e transgender patients on hormone-modul ating therapy clinical judgment is advisedfor assessment. [facility] HEMATOLOGY PROFILES MPV 10.5 8.0 - 12.0 02/28 15:18 :00 [facility] HEMATOLOGY PROFILES PLT 140 x10(9)/L 150 - 450 02/28 15:18 :00 [facility] HEMATOLOGY PROFILES RDW SD 64.5 fL 35.1 - 43.9 02/28 15:18 :00 [facility] HEMATOLOGY PROFILES WBC 1.28 x10(9)/L 3.50 - 10.50 02/28 15:18 :00 [facility] HEMATOLOGY PROFILES HGB 10.2 g/dL 13.5 - 17.5 02/28 15:18 :00 Interpretive Data: Mhekfv-li-kse e transgender patients on testosterone therapy should have results assessed using the male reference range. Ebut-gi-wbtgc e transgender patients on hormone-modul ating therapy clinical judgment is advisedfor assessment. [facility] HEMATOLOGY PROFILES RBC 3.02 x10(12)/L 4.32 - 5.72 02/28 15:18 :00 [facility] HEMATOLOGY PROFILES Path Review Smear Pathologis t Review of Smear Interpreta tion: Agree Interprete d by: Susy Barragan i, MD 02/28 15:18 :00 [facility] HEMATOLOGY PROFILES QA Review Agree (02/28/25 10:18 AM) 02/28 15:18 :00 [facility] HEMATOLOG[facility] PROFILES Atypical Lymphs Manual 2.5 % 02/28 15:18 :00 [facility] HEMATOLOGY PROFILES Basophils Manual 1.7 % 02/28 15:18 :00 [facility] HEMATOLOGY PROFILES Eosinophils Manual 14.0 % 02/28 15:18 :00 [facility] HEMATOLOGY PROFILES Monocytes Manual 0.8 % 02/28 15:18 :00 [facility] HEMATOLOGY PROFILES Abs Eosinophils Manual 0.18 x10(9)/L 0.05 - 0.50 02/28 15:18 :00 [facility] HEMATOLOGY PROFILES Abs Basophils Manual 0.02 x10(9)/L 0.00 - 0.30 02/28 15:18 :00 [facility] HEMATOLOGY PROFILES Lymphocytes Manual 52.9 % 02/28 15:18 :00 [facility] HEMATOLOGY PROFILES Neuts Manual 28.1 % 02/28 15:18 :00 [facility] HEMATOLOGY PROFILES Abs Monocytes Manual 0.01 x10(9)/L 0.30 - 0.90 02/28 15:18 :00 [facility] HEMATOLOGY PROFILES Internal Review Yes (02/28/25 10:18 AM) 02/28 15:18 :00 [facility] HEMATOLOGY PROFILES Absolute Neutrophils Manual 0.36 x10(9)/L 1.70 - 7.00 02/28 15:18 :00 Result Comment: This result has been called to Carol Bland RN by [email or web address] on 02/28/2025 11:13:26, and has been read back. [facility] HEMATOLOGY PROFILES Abs Lymphocytes Manual 0.68 x10(9)/L 0.90 - 2.90 02/28 15:18 :00 [facility] HEMATOLOGY PROFILES Abs Atypical Lymphocytes Manual 0.03 x10(9)/L 0.00 - 0.11 02/28 15:18 :00 [facility] HEMATOLOGY PROFILES Elliptocytes (Ovalocytes) 1+ (10-25%) *NA* (02/28/25 10:18 AM) 02/28 15:18 :00 [facility] HEMATOLOGY PROFILES Aniso 1+ (10-20%) *NA* (02/28/25 10:18 AM) 02/28 15:18 :00 [facility] HEMATOLOGY PROFILES Platelet Estimate Decreased *NA* (02/28/25 10:18 AM) 02/28 15:18 :00 [facility] HEMATOLOGY PROFILES Morphology Present *NA* (02/28/25 10:18 AM) 02/28 15:18 :00 [facility] HEMATOLOGY PROFILES Schistocytes 1+ (Rare-3%) *NA* (02/28/25 10:18 AM) 02/28 15:18 :00 [facility] GENERAL CHEMISTRY ALT-SGPT 26 U/L 10 - 50 11/12 15:55 :00 [facility] GENERAL CHEMISTRY Estimated GFR for Adults 132 mL/min/1.7 3m 11/12 15:55 :00 Interpretive Data: Changed to CKD-EPI 2020 on 2020. [facility] GENERAL CHEMISTRY BUN 9 mg/dL 6 - 20 11/12 15:55 :00 [facility] GENERAL CHEMISTRY Calcium 9.5 mg/dL 8.3 - 10.6 11/12 15:55 :00 [facility] GENERAL CHEMISTRY T Bili 0.44 mg/dL 0.30 - 1.20 11/12 15:55 :00 [facility] GENERAL CHEMISTRY Glucose Lvl 108 mg/dL 70 - 139 11/12 15:55 :00 [facility] GENERAL CHEMISTRY Total Protein 6.9 g/dL 5.7 - 8.2 11/12 15:55 :00 [facility] GENERAL CHEMISTRY Estimated GFR for peds Not Calculated mL/min/1.7 3m 11/12 15:55 :00 Interpretive Data: The estimated GFR was calculated using the Teddy barker Dorado equation (2009) . Reference: Pediatric GFR calculator at [employer] Website. [facility] GENERAL CHEMISTRY Creatinine, standardized 0.7 mg/dL 0.7 - 1.2 11/12 15:55 :00 Interpretive Data: Ynimer-rl-ahu e transgender patients on testosterone therapy should have results assessed using the male reference range. Gihm-ri-pfukz e transgender patients on hormone-modul ating therapy clinical judgment is advisedfor assessment. [facility] GENERAL CHEMISTRY Chloride 104 mmol/L 98 - 107 11/12 15:55 :00 [facility] GENERAL CHEMISTRY Sodium 140 mmol/L 136 - 145 11/12 15:55 :00 [facility] GENERAL CHEMISTRY AST-SGOT 27 U/L 11/12 15:55 :00 [facility] GENERAL CHEMISTRY Potassium 3.8 mmol/L 3.5 - 5.1 11/12 15:55 :00 [facility] GENERAL CHEMISTRY Albumin 4.6 g/dL 3.4 - 5.0 11/12 15:55 :00 [facility] GENERAL CHEMISTRY CO2 26 mmol/L 20 - 31 11/12 15:55 :00 [facility] GENERAL CHEMISTRY Alkaline Phosphatase 127 U/L 40 - 129 11/12 15:55 :00 [facility] GENERAL CHEMISTRY Anion gap 14 mmol/L 0 - 20 11/12 15:55 :00 [facility] HEMATOLOGY PROFILES RDW CV 14.5 % 11.8 - 15.6 11/12 15:55 :00 [facility] HEMATOLOGY PROFILES MCV 98.4 fL 81.2 - 95.1 11/12 15:55 :00 [facility] HEMATOLOGY PROFILES HCT 44.2 % 38.8 - 50.0 11/12 15:55 :00 Interpretive Data: Geycze-tu-xhz e transgender patients on testosterone therapy should have results assessed using the male reference range. Kdmc-wq-hobed e transgender patients on hormone-modul ating therapy clinical judgment is advisedfor assessment. [facility] HEMATOLOGY PROFILES MCHC 31.4 g/dL 32.0 - 36.0 11/12 15:55 :00 [facility] HEMATOLOGY PROFILES MCH 31.0 pg 26.0 - 33.0 11/12 15:55 :00 [facility] HEMATOLOGY PROFILES MPV 9.5 8.0 - 12.0 11/12 15:55 :00 [facility] HEMATOLOGY PROFILES HGB 13.9 g/dL 13.5 - 17.5 11/12 15:55 :00 Interpretive Data: Nulues-dg-smx e transgender patients on testosterone therapy should have results assessed using the male reference range. Lvmq-oz-ishki e transgender patients on hormone-modul ating therapy clinical judgment is advisedfor assessment. [facility] HEMATOLOGY PROFILES RDW SD 52.6 fL 35.1 - 43.9 11/12 15:55 :00 [facility] HEMATOLOGY PROFILES PLT 256 x10(9)/L 150 - 450 11/12 15:55 :00 [facility] HEMATOLOGY PROFILES WBC 10.13 x10(9)/L 3.50 - 10.50 11/12 15:55 :00 [facility] HEMATOLOGY PROFILES RBC 4.49 x10(12)/L 4.32 - 5.72 11/12 15:55 :00 [facility] HEMATOLOGY PROFILES % Neutrophils 71.1 % 11/12 15:55 :00 [facility] HEMATOLOGY PROFILES Abs Eosinophils 0.54 x10(9)/L 0.05 - 0.50 11/12 15:55 :00 [facility] HEMATOLOGY PROFILES Absolute Nucleated RBCs 0.0 x10(9)/L 0.0 - 0.0 11/12 15:55 :00 Interpretive Data: Normal values not established in patients less than 18 years old. [facility] HEMATOLOGY PROFILES Abs Monocytes 0.86 x10(9)/L 0.30 - 0.90 11/12 15:55 :00 [facility] HEMATOLOGY PROFILES % Monocytes 8.5 % 11/12 15:55 :00 [facility] HEMATOLOGY PROFILES % Lymphocytes 13.2 % 11/12 15:55 :00 [facility] HEMATOLOGY PROFILES Abs Basophils 0.09 x10(9)/L 0.00 - 0.30 11/12 15:55 :00 [facility] [facility] HEMATOLOGY PROFILES Abs Lymphocytes 1.34 x10(9)/L 0.90 - 2.90 11/12 15:55 :00 [facility] HEMATOLOGY PROFILES Absolute Granulocytes 7.20 x10(9)/L 1.70 - 7.00 11/12 15:55 :00 [facility] HEMATOLOGY PROFILES % Nucleated RBCs 0.0 % 11/12 15:55 :00 [facility] HEMATOLOGY PROFILES % Basophils 0.9 % 11/12 15:55 :00 [facility] HEMATOLOGY PROFILES % Immature Granulocytes 1.00 % 0.02 - 0.42 11/12 15:55 :00 [facility] HEMATOLOGY PROFILES % Eosinophils 5.3 % 11/12 15:55 :00 [facility] HEMATOLOGY PROFILES Abs Immature Granulocytes 0.10 x10(9)/L 0.00 - 0.03 11/12 15:55 :00 [facility] GENERAL CHEMISTRY Alkaline Phosphatase 122 U/L 40 - 129 10/25 13:44 :00 [facility] GENERAL CHEMISTRY AST-SGOT 27 U/L 10/25 13:44 :00 [facility] GENERAL CHEMISTRY Albumin 3.9 g/dL 3.4 - 5.0 10/25 13:44 :00 [facility] GENERAL CHEMISTRY Glucose Lvl 78 mg/dL 70 - 139 10/25 13:44 :00 [facility] GENERAL CHEMISTRY Calcium 9.0 mg/dL 8.3 - 10.6 10/25 13:44 :00 [facility] GENERAL CHEMISTRY Total Protein 6.1 g/dL 5.7 - 8.2 10/25 13:44 :00 [facility] GENERAL CHEMISTRY ALT-SGPT 25 U/L 10 - 50 10/25 13:44 :00 [facility] GENERAL CHEMISTRY BUN 7 mg/dL 6 - 20 10/25 13:44 :00 [facility] GENERAL CHEMISTRY Creatinine, standardized 0.5 mg/dL 0.7 - 1.2 10/25 13:44 :00 Interpretive Data: Plomci-us-uaw e transgender patients on testosterone therapy should have results assessed using the male reference range. Jefm-ky-pyfmf e transgender patients on hormone-modul ating therapy clinical judgment is advisedfor assessment. [facility] GENERAL CHEMISTRY Sodium 141 mmol/L 136 - 145 10/25 13:44 :00 [facility] GENERAL CHEMISTRY Potassium 3.9 mmol/L 3.5 - 5.1 10/25 13:44 :00 [facility] GENERAL CHEMISTRY Estimated GFR for peds Not Calculated mL/min/1.7 3m 10/25 13:44 :00 Interpretive Data: The estimated GFR was calculated using the B lucero Dorado equation (2009) . Reference: Pediatric GFR calculator at [employer] Website. [facility] GENERAL CHEMISTRY Chloride 105 mmol/L 98 - 107 10/25 13:44 :00 [facility] GENERAL CHEMISTRY Estimated GFR for Adults 144 mL/min/1.7 10/25 13:44 :00 Interpretive Data: Changed to CKD-EPI 2020 on 2020. [facility] GENERAL CHEMISTRY Anion gap 12 mmol/L 0 - 20 10/25 13:44 :00 [facility] GENERAL CHEMISTRY T Bili 0.30 mg/dL 0.30 - 1.20 10/25 13:44 :00 [facility] GENERAL CHEMISTRY CO2 28 mmol/L 20 - 31 10/25 13:44 :00 [facility] GENERAL CHEMISTRY LDH 251 U/L 120 - 246 10/25 13:44 :00 [facility] HEMATOLOGY PROFILES MCHC 30.1 g/dL 32.0 - 36.0 10/25 13:44 :00 [facility] HEMATOLOGY PROFILES MCH 32.4 pg 26.0 - 33.0 10/25 13:44 :00 [facility] HEMATOLOGY PROFILES RDW SD 65.1 fL 35.1 - 43.9 10/25 13:44 :00 [facility] HEMATOLOGY PROFILES RDW CV 16.1 % 11.8 - 15.6 10/25 13:44 :00 [facility] HEMATOLOGY PROFILES PLT 261 x10(9)/L 150 - 450 10/25 13:44 :00 [facility] HEMATOLOGY PROFILES HCT 35.2 % 38.8 - 50.0 10/25 13:44 :00 Interpretive Data: Xjmhis-kr-rbt e transgender patients on testosterone therapy should have results assessed using the male reference range. Nttl-gj-ezbio e transgender patients on hormone-modul ating therapy clinical judgment is advisedfor assessment. [facility] HEMATOLOGY PROFILES WBC 4.24 x10(9)/L 3.50 - 10.50 10/25 13:44 :00 [facility] HEMATOLOGY PROFILES HGB 10.6 g/dL 13.5 - 17.5 10/25 13:44 :00 Interpretive Data: Drqdjm-tb-oha e transgender patients on testosterone therapy should have results assessed using the male reference range. Ngjg-yp-vreol e transgender patients on hormone-modul ating therapy clinical judgment is advisedfor assessment. [facility] HEMATOLOGY PROFILES RBC 3.27 x10(12)/L 4.32 - 5.72 10/25 13:44 :00 [facility] HEMATOLOGY PROFILES MCV 107.6 fL 81.2 - 95.1 10/25 13:44 :00 [facility] HEMATOLOGY PROFILES MPV 9.5 8.0 - 12.0 10/25 13:44 :00 [facility] HEMATOLOGY PROFILES Eosinophils Manual 3.6 % 10/25 13:44 :00 [facility] HEMATOLOGY PROFILES Abs Lymphocytes Manual 0.53 x10(9)/L 0.90 - 2.90 10/25 13:44 :00 [facility] HEMATOLOGY PROFILES Absolute Neutrophils Manual 2.52 x10(9)/L 1.70 - 7.00 10/25 13:44 :00 [facility] HEMATOLOGY PROFILES Monocytes Manual 19.8 % 10/25 13:44 :00 [facility] HEMATOLOGY PROFILES Atypical Lymphs Manual 2.7 % 10/25 13:44 :00 [facility] HEMATOLOGY PROFILES Lymphocytes Manual 12.6 % 10/25 13:44 :00 [facility] HEMATOLOGY PROFILES Aniso 1+ (10-20%) *NA* (10/25/24 7:44 AM) 10/25 13:44 :00 [facility] HEMATOLOGY PROFILES Platelet Estimate Adequate *NA* (10/25/24 7:44 AM) 10/25 13:44 :00 [facility] HEMATOLOGY PROFILES Abs Myelos 0.04 x10(9)/L 0.00 - 0.11 10/25 13:44 :00 [facility] HEMATOLOGY PROFILES Abs Basophils Manual 0.04 x10(9)/L 0.00 - 0.30 10/25 13:44 :00 [facility] HEMATOLOGY PROFILES Abs Eosinophils Manual 0.15 x10(9)/L 0.05 - 0.50 10/25 13:44 :00 [facility] HEMATOLOGY PROFILES Morphology Present *NA* (10/25/24 7:44 AM) 10/25 13:44 :00 [facility] HEMATOLOGY PROFILES Abs Monocytes Manual 0.84 x10(9)/L 0.30 - 0.90 10/25 13:44 :00 [facility] HEMATOLOGY PROFILES Abs Atypical Lymphocytes Manual 0.11 x10(9)/L 0.00 - 0.11 10/25 13:44 :00 [facility] HEMATOLOGY PROFILES Myelos hp 0.9 % 10/25 13:44 :00 [facility] HEMATOLOGY PROFILES Basophils Manual 0.9 % 10/25 13:44 :00 [facility] HEMATOLOGY PROFILES Teardrop 1+ (3-6%) *NA* (10/25/24 7:44 AM) 10/25 13:44 :00 [facility] HEMATOLOGY PROFILES Schistocytes 1+ (Rare-3%) *NA* (10/25/24 7:44 AM) 10/25 13:44 :00 [facility] HEMATOLOGY PROFILES Macro 1+ (25-50%) *NA* (10/25/24 7:44 AM) 10/25 13:44 :00 [facility] HEMATOLOGY PROFILES Elliptocytes (Ovalocytes) 1+ (10-25%) *NA* (10/25/24 7:44 AM) 10/25 13:44 :00 [facility] HEMATOLOGY PROFILES Neuts Manual 59.5 % 10/25 13:44 :00 [facility] HEMATOLOGY PROFILES Internal Review Yes (10/25/24 7:44 AM) 10/25 13:44 :00 [facility] HEMATOLOGY PROFILES QA Review Agree (10/25/24 7:44 AM) 10/25 13:44 :00 [facility] HEMATOLOGY PROFILES Path Review Smear Pathologis t Review of Smear Interpreta tion: MCV >105 Interprete d by: Susy Barragan i, MD 10/25 13:44 :00 [facility] REFERENCE LABS MRD Tracking-Letitia noseq see scanned 09/19 22:11 :00 [facility] GENERAL CHEMISTRY Calcium 8.8 mg/dL 8.3 - 10.6 09/18 07:33 :00 [facility] GENERAL CHEMISTRY Glucose Lvl 119 mg/dL 70 - 139 09/18 07:33 :00 [facility] GENERAL CHEMISTRY Chloride 105 mmol/L 98 - 107 09/18 07:33 :00 [facility] GENERAL CHEMISTRY ALT-SGPT 115 U/L 10 - 50 09/18 07:33 :00 [facility] GENERAL CHEMISTRY BUN 10 mg/dL 6 - 20 09/18 07:33 :00 [facility] GENERAL CHEMISTRY Total Protein 5.6 g/dL 5.7 - 8.2 09/18 07:33 :00 [facility] GENERAL CHEMISTRY Creatinine, standardized 0.4 mg/dL 0.7 - 1.2 09/18 07:33 :00 Interpretive Data: Xjxeql-pw-efd e transgender patients on testosterone therapy should have results assessed using the male reference range. Ydct-fu-dmwzt e transgender patients on hormone-modul ating therapy clinical judgment is advisedfor assessment. [facility] GENERAL CHEMISTRY Anion gap 10 mmol/L 0 - 20 09/18 07:33 :00 [facility] GENERAL CHEMISTRY T Bili 0.41 mg/dL 0.30 - 1.20 09/18 07:33 :00 [facility] GENERAL CHEMISTRY Sodium 139 mmol/L 136 - 145 09/18 07:33 :00 [facility] GENERAL CHEMISTRY Potassium 3.8 mmol/L 3.5 - 5.1 09/18 07:33 :00 [facility] GENERAL CHEMISTRY CO2 28 mmol/L 20 - 31 09/18 07:33 :00 [facility] GENERAL CHEMISTRY Albumin 3.3 g/dL 3.4 - 5.0 09/18 07:33 :00 [facility] GENERAL CHEMISTRY Alkaline Phosphatase 110 U/L 40 - 129 09/18 07:33 :00 [facility] GENERAL CHEMISTRY AST-SGOT 21 U/L 09/18 07:33 :00 [facility] GENERAL CHEMISTRY Estimated GFR for Adults 150 mL/min/1.7 3m 09/18 07:33 :00 Interpretive Data: Changed to CKD-EPI 2020 on 2020. [facility] GENERAL CHEMISTRY Estimated GFR for peds Not Calculated mL/min/1.7 3m 09/18 07:33 :00 Interpretive Data: The estimated GFR was calculated using the B edside Dorado equation (2009) . Reference: Pediatric GFR calculator at [employer] Website. [facility] HEMATOLOGY PROFILES % Nucleated RBCs 0.0 % 09/18 07:33 :00 [facility] HEMATOLOGY PROFILES MPV 9.8 8.0 - 12.0 09/18 07:33 :00 [facility] HEMATOLOGY PROFILES PLT 191 x10(9)/L 150 - 450 09/18 07:33 :00 [facility] HEMATOLOGY PROFILES RDW SD 66.6 fL 35.1 - 43.9 09/18 07:33 :00 [facility] HEMATOLOGY PROFILES RDW CV 17.6 % 11.8 - 15.6 09/18 07:33 :00 [facility] HEMATOLOGY PROFILES Absolute Nucleated RBCs 0.0 x10(9)/L 0.0 - 0.0 09/18 07:33 :00 Interpretive Data: Normal values not established in patients less than 18 years old. [facility] HEMATOLOGY PROFILES WBC 7.17 x10(9)/L 3.50 - 10.50 09/18 07:33 :00 [facility] HEMATOLOGY PROFILES RBC 2.57 x10(12)/L 4.32 - 5.72 09/18 07:33 :00 [facility] HEMATOLOGY PROFILES MCHC 32.1 g/dL 32.0 - 36.0 09/18 07:33 :00 [facility] HEMATOLOGY PROFILES MCH 32.7 pg 26.0 - 33.0 09/18 07:33 :00 [facility] HEMATOLOGY PROFILES MCV 101.9 fL 81.2 - 95.1 09/18 07:33 :00 [facility] HEMATOLOGY PROFILES HCT 26.2 % 38.8 - 50.0 09/18 07:33 :00 Interpretive Data: Abgccj-rx-xgo e transgender patients on testosterone therapy should have results assessed using the male reference range. Orwi-qb-ssxyp e transgender patients on hormone-modul ating therapy clinical judgment is advisedfor assessment. [facility] HEMATOLOGY PROFILES HGB 8.4 g/dL 13.5 - 17.5 09/18 07:33 :00 Interpretive Data: Nuyhdv-br-vmz e transgender patients on testosterone therapy should have results assessed using the male reference range. Nxzw-ow-nvjnq e transgender patients on hormone-modul ating therapy clinical judgment is advisedfor assessment. [facility] GENERAL CHEMISTRY Estimated GFR for peds Not Calculated mL/min/1.7 3m 09/17 09:22 :00 Interpretive Data: The estimated GFR was calculated using the B edside Dorado equation (2009) . Reference: Pediatric GFR calculator at [employer] Website. [facility] GENERAL CHEMISTRY Estimated GFR for Adults 146 mL/min/1.7 3m 09/17 09:22 :00 Interpretive Data: Changed to CKD-EPI 2020 on 2020. [facility] GENERAL CHEMISTRY Calcium 8.8 mg/dL 8.3 - 10.6 09/17 09:22 :00 [facility] GENERAL CHEMISTRY Glucose Lvl 116 mg/dL 70 - 139 09/17 09:22 :00 [facility] GENERAL CHEMISTRY BUN 10 mg/dL 6 - 20 09/17 09:22 :00 [facility] CHEMISTRY ALT-SGPT 153 U/L 10 - 50 09/17 09:22 :00 [facility] GENERAL CHEMISTRY Albumin 3.4 g/dL 3.4 - 5.0 09/17 09:22 :00 [facility] GENERAL CHEMISTRY Alkaline Phosphatase 113 U/L 40 - 129 09/17 09:22 :00 [facility] GENERAL CHEMISTRY AST-SGOT 33 U/L 09/17 09:22 :00 [facility] GENERAL CHEMISTRY Creatinine, standardized 0.5 mg/dL 0.7 - 1.2 09/17 09:22 :00 Interpretive Data: Pbtgru-fr-afx e transgender patients on testosterone therapy should have results assessed using the male reference range. Hjyz-th-retxo e transgender patients on hormone-modul ating therapy clinical judgment is advisedfor assessment. [facility] CHEMISTRY T Bili 0.40 mg/dL 0.30 - 1.20 09/17 09:22 :00 [facility] GENERAL CHEMISTRY Total Protein 5.7 g/dL 5.7 - 8.2 09/17 09:22 :00 [facility] CHEMISTRY Anion gap 11 mmol/L 0 - 20 09/17 09:22 :00 [facility] GENERAL CHEMISTRY CO2 29 mmol/L 09/17 09:22 :00 [facility] GENERAL CHEMISTRY Potassium 4.2 mmol/L 3.5 - 5.1 09/17 09:22 :00 [facility] GENERAL CHEMISTRY Chloride 102 mmol/L 98 - 107 09/17 09:22 :00 [facility] GENERAL CHEMISTRY Sodium 138 mmol/L 136 - 145 09/17 09:22 :00 [facility] HEMATOLOGY PROFILES WBC 8.00 x10(9)/L 3.50 - 10.50 09/17 09:22 :00 [facility] HEMATOLOGY PROFILES HCT 26.7 % 38.8 - 50.0 09/17 09:22 :00 Interpretive Data: Smopao-rf-qhz e transgender patients on testosterone therapy should have results assessed using the male reference range. Ssni-eu-kmphq e transgender patients on hormone-modul ating therapy clinical judgment is advisedfor assessment. [facility] HEMATOLOGY PROFILES HGB 8.4 g/dL 13.5 - 17.5 09/17 09:22 :00 Interpretive Data: Qourkc-gl-bpz e transgender patients on testosterone therapy should have results assessed using the male reference range. Ajsi-qj-vwsov e transgender patients on hormone-modul ating therapy clinical judgment is advisedfor assessment. [facility] HEMATOLOGY PROFILES RBC 2.55 x10(12)/L 4.32 - 5.72 09/17 09:22 :00 [facility] HEMATOLOGY PROFILES MCH 32.9 pg 26.0 - 33.0 09/17 09:22 :00 [facility] HEMATOLOGY PROFILES MCV 104.7 fL 81.2 - 95.1 09/17 09:22 :00 [facility] HEMATOLOGY PROFILES PLT 225 x10(9)/L 150 - 450 09/17 09:22 :00 [facility] HEMATOLOGY PROFILES RDW SD 70.9 fL 35.1 - 43.9 09/17 09:22 :00 [facility] HEMATOLOGY PROFILES RDW CV 18.2 % 11.8 - 15.6 09/17 09:22 :00 [facility] HEMATOLOGY PROFILES MCHC 31.5 g/dL 32.0 - 36.0 09/17 09:22 :00 [facility] HEMATOLOGY PROFILES MPV 10.5 8.0 - 12.0 09/17 09:22 :00 [facility] HEMATOLOGY PROFILES % Nucleated RBCs 0.0 % 09/17 09:22 :00 [facility] HEMATOLOGY PROFILES Absolute Nucleated RBCs 0.0 x10(9)/L 0.0 - 0.0 09/17 09:22 :00 Interpretive Data: Normal values not established in patients less than 18 years old. [facility] HEMATOLOGY PROFILES % Neutrophils 95.3 % 09/17 09:22 :00 [facility] HEMATOLOGY PROFILES % Monocytes 2.1 % 09/17 09:22 :00 [facility] HEMATOLOGY PROFILES % Eosinophils 0.0 % 09/17 09:22 :00 [facility] HEMATOLOGY PROFILES % Basophils 0.1 % 09/17 09:22 :00 [facility] HEMATOLOGY PROFILES % Immature Granulocytes 1.10 % 0.02 - 0.42 09/17 09:22 :00 [facility] HEMATOLOGY PROFILES % Lymphocytes 1.4 % 12/31 /2024 09:22 :00 [facility] HEMATOLOGY PROFILES Abs Monocytes 0.17 x10(9)/L 0.30 - 0.90 09/17 09:22 :00 [facility] HEMATOLOGY PROFILES Abs Eosinophils 0.00 x10(9)/L 0.05 - 0.50 09/17 09:22 :00 [facility] HEMATOLOGY PROFILES Abs Basophils 0.01 x10(9)/L 0.00 - 0.30 09/17 09:22 :00 [facility] HEMATOLOGY PROFILES Abs Immature Granulocytes 0.09 x10(9)/L 0.00 - 0.03 09/17 09:22 :00 [facility] HEMATOLOGY PROFILES Abs Lymphocytes 0.11 x10(9)/L 0.90 - 2.90 09/17 09:22 :00 [facility] HEMATOLOGY PROFILES Absolute Granulocytes 7.62 x10(9)/L 1.70 - 7.00 09/17 09:22 :00 [facility] HEMATOLOGY PROFILES Morphology Previously Reviewed, results remain consistent *NA* (09/17/24 3:22 AM) 09/17 09:22 :00 [facility] GENERAL CHEMISTRY Total Protein 6.2 g/dL 5.7 - 8.2 09/16 20:49 :00 [facility] GENERAL CHEMISTRY T Bili 0.57 mg/dL 0.30 - 1.20 09/16 20:49 :00 [facility] GENERAL CHEMISTRY Anion gap 11 mmol/L 0 - 20 09/16 20:49 :00 [facility] GENERAL CHEMISTRY CO2 29 mmol/L 20 - 31 09/16 20:49 :00 [facility] GENERAL CHEMISTRY Potassium 4.2 mmol/L 3.5 - 5.1 09/16 20:49 :00 [facility] GENERAL CHEMISTRY Sodium 139 mmol/L 136 - 145 09/16 20:49 :00 [facility] GENERAL CHEMISTRY Chloride 103 mmol/L 98 - 107 09/16 20:49 :00 [facility] GENERAL CHEMISTRY Glucose Lvl 109 mg/dL 70 - 139 09/16 20:49 :00 [facility] GENERAL CHEMISTRY Estimated GFR for peds Not Calculated mL/min/1.7 3m 09/16 20:49 :00 Interpretive Data: The estimated GFR was calculated using the B nathanide Dorado equation (2009) . Reference: Pediatric GFR calculator at [employer] Website. [facility] GENERAL CHEMISTRY Estimated GFR for Adults 147 mL/min/1.7 3m 09/16 20:49 :00 Interpretive Data: Changed to CKD-EPI 2020 on 2020. [facility] GENERAL CHEMISTRY Creatinine, standardized 0.5 mg/dL 0.7 - 1.2 09/16 20:49 :00 Interpretive Data: Tuzwjm-ru-uhm e transgender patients on testosterone therapy should have results assessed using the male reference range. Qnnm-ix-tijcz e transgender patients on hormone-modul ating therapy clinical judgment is advisedfor assessment. [facility] GENERAL CHEMISTRY Calcium 9.5 mg/dL 8.3 - 10.6 09/16 20:49 :00 [facility] GENERAL CHEMISTRY BUN 10 mg/dL 6 - 20 09/16 20:49 :00 [facility] GENERAL CHEMISTRY ALT-SGPT 209 U/L 10 - 50 09/16 20:49 :00 [facility] GENERAL CHEMISTRY Alkaline Phosphatase 122 U/L 40 - 129 09/16 20:49 :00 [facility] GENERAL CHEMISTRY Albumin 3.6 g/dL 3.4 - 5.0 09/16 20:49 :00 [facility] GENERAL CHEMISTRY AST-SGOT 53 U/L 09/16 20:49 :00 [facility] HEMATOLOGY PROFILES Absolute Nucleated RBCs 0.0 x10(9)/L 0.0 - 0.0 09/16 20:49 :00 Interpretive Data: Normal values not established in patients less than 18 years old. [facility] HEMATOLOGY PROFILES % Nucleated RBCs 0.0 % 09/16 20:49 :00 [facility] HEMATOLOGY PROFILES % Neutrophils 94.4 % 09/16 20:49 :00 [facility] HEMATOLOGY PROFILES Abs Monocytes 0.17 x10(9)/L 0.30 - 0.90 09/16 20:49 :00 [facility] HEMATOLOGY PROFILES Abs Lymphocytes 0.19 x10(9)/L 0.90 - 2.90 09/16 20:49 :00 [facility] HEMATOLOGY PROFILES Abs Basophils 0.00 x10(9)/L 0.00 - 0.30 09/16 20:49 :00 [facility] HEMATOLOGY PROFILES Abs Eosinophils 0.00 x10(9)/L 0.05 - 0.50 09/16 20:49 :00 [facility] HEMATOLOGY PROFILES Abs Immature Granulocytes 0.11 x10(9)/L 0.00 - 0.03 09/16 20:49 :00 [facility] HEMATOLOGY PROFILES % Monocytes 2.0 % 09/16 20:49 :00 [facility] HEMATOLOGY PROFILES % Lymphocytes 2.3 % 09/16 20:49 :00 [facility] HEMATOLOGY PROFILES % Basophils 0.0 % 09/16 20:49 :00 [facility] HEMATOLOGY PROFILES % Eosinophils 0.0 % 09/16 20:49 :00 [facility] HEMATOLOGY PROFILES % Immature Granulocytes 1.30 % 0.02 - 0.42 09/16 20:49 :00 [facility] HEMATOLOGY PROFILES Absolute Granulocytes 7.91 x10(9)/L 1.70 - 7.00 09/16 20:49 :00 [facility] HEMATOLOGY PROFILES Internal Review Yes (09/16/24 2:49 PM) 09/16 20:49 :00 [facility] HEMATOLOGY PROFILES Morphology Present *NA* (09/16/24 2:49 PM) 09/16 20:49 :00 [facility] HEMATOLOGY PROFILES Aniso 1+ (10-20%) *NA* (09/16/24 2:49 PM) 09/16 20:49 :00 [facility] HEMATOLOGY PROFILES Platelet Estimate Adequate *NA* (09/16/24 2:49 PM) 09/16 20:49 :00 [facility] [place] HEMATOLOGY PROFILES Elliptocytes (Ovalocytes) 1+ (10-25%) *NA* (09/16/24 2:49 PM) 09/16 20:49 :00 [facility] HEMATOLOGY PROFILES QA Review Agree (09/16/24 2:49 PM) 09/16 20:49 :00 [facility] HEMATOLOGY PROFILES Path Review Smear Pathologis t Review of Smear Interpreta tion: lymphs <5%. Interprete d by: Susy Barragan i, MD 09/16 20:49 :00 [facility] HEMATOLOGY PROFILES HGB 9.4 g/dL 13.5 - 17.5 09/16 20:49 :00 Interpretive Data: Sdkmqe-cd-xhl e transgender patients on testosterone therapy should have results assessed using the male reference range. Hodw-gn-vumvd e transgender patients on hormone-modul ating therapy clinical judgment is advisedfor assessment. [facility] HEMATOLOGY PROFILES HCT 29.4 % 38.8 - 50.0 09/16 20:49 :00 Interpretive Data: Qlilce-wm-ikl e transgender patients on testosterone therapy should have results assessed using the male reference range. Vbmp-di-cnhpg e transgender patients on hormone-modul ating therapy clinical judgment is advisedfor assessment. [facility] HEMATOLOGY PROFILES WBC 8.38 x10(9)/L 3.50 - 10.50 09/16 20:49 :00 [facility] HEMATOLOGY PROFILES RBC 2.88 x10(12)/L 4.32 - 5.72 09/16 20:49 :00 [facility] HEMATOLOGY PROFILES MCV 102.1 fL 81.2 - 95.1 09/16 20:49 :00 [facility] HEMATOLOGY PROFILES RDW CV 18.1 % 11.8 - 15.6 09/16 20:49 :00 [facility] HEMATOLOGY PROFILES RDW SD 67.2 fL 35.1 - 43.9 09/16 20:49 :00 [facility] HEMATOLOGY PROFILES MCH 32.6 pg 26.0 - 33.0 09/16 20:49 :00 [facility] HEMATOLOGY PROFILES MCHC 32.0 g/dL 32.0 - 36.0 09/16 20:49 :00 [facility] HEMATOLOGY PROFILES PLT 230 x10(9)/L 150 - 450 09/16 20:49 :00 [facility] HEMATOLOGY PROFILES MPV 10.4 8.0 - 12.0 09/16 20:49 :00 [facility] OTHER HEMATOLOGY TESTS Reticulocyte Percent 1.9 % 1.1 - 2.7 09/16 20:49 :00 [facility] OTHER HEMATOLOGY TESTS Reticulocyte Count 0.055 0.055 - 0.141 09/16 20:49 :00 [facility] OTHER HEMATOLOGY TESTS Reticulocyte Hemoglobin 36.4 pg 29.0 - 35.3 09/16 20:49 :00 [facility] OTHER HEMATOLOGY TESTS Immature Reticulocyte Fraction 5.5 % 2.3 - 15.9 09/16 20:49 :00 [facility] THERAPEUTI C DRUGS Methotrexate Lvl <0.04 umol/L 09/16 20:49 :00 [facility] FLOW CYTOMETRY Leukemia/Lym phoma Result See Report 33 (09/16/24 2:03 PM) 09/16 20:03 :00 Interpretive Data: See report under Flow Cytometry within Lab Extended tab. [facility] FLOW CYTOMETRY Specimen Source Bone Marrow Aspirate 09/16 20:03 :00 [facility] FLOW CYTOMETRY Flow Cytometry Compliance Comment See Comment 32 (09/16/24 2:03 PM) 09/16 20:03 :00 Interpretive Data: Analyte Specific Reagent: This test was developed and its performance characteristi cs determined by the Clinical Flow Cytometry Laboratory, [facility], [facility]. It has not been cleared or [...] to perform high complexity clinical laboratory testing. [facility] REFERENCE LABS Hutson RL Test AP Result duplicate 09/16 20:03 :00 [facility] REFERENCE LABS Result BALPF-HTUSON See Comment 09/16 20:03 :00 Result Comment: [...] Normal <10.0 t(9;22) ABL1/BCR fusion Normal <4.0 -9p21(OKUP4It 1,D9Z1x2) Normal <12.0 -9p21x2(CDKN2 Ax0,D9Z1x2) Normal <5.0 -17p13.1(TP53 x1,O92Y5x0) Normal <15.0 -17(TP53,D17Z 1)x1 Normal <10.0 t(12;21) ETV6/RUNX1 fusion Normal <4.0 +21q22(RUNX1x 3) Normal <7.0 14q32(IGH sep) Normal <15.0 Xp22.33/Yp11. 32(3'GRYU9pvo ention,5 Normal <10.0 'loss) Xp22.33/Yp11. 32(3'N6QJ9krz s,5'rete Normal <5.0 ntion) t(1;19) PBX1/TCF3 fusion Normal <4.0 glenna(19)t(1;19 ) PBX1/TCF3 fusion Normal <4.0 +4CEN(D4Z1x3) Normal <20.0 +10CEN(D10Z1x 3) Normal <7.0 +17CEN(D17Z1x 3) Normal <7.0 8q24.1(MYC sep) Normal <10.0 1q25(ABL2 sep) Normal <10.0 5q32(PDGFRB sep) Normal <15.0 9p24.1(JAK2 sep) Normal <10.0 9q34(ABL1 sep) Normal <15.0 -7p12.2(IKZF1 dimx1,WROC1n2 ,Cep7x2) Normal <7.0 ------ Result Interphase FISH [...] Method: Manual Probe vendors include: LDT = [facility] Developed AM = [employer] ([place], [place]) C = [employer] ([place], [place]) AT = [email or web address] ([place], [place]) Additional Information See Comment Previous Studies DATE SPECIMEN RESULT 04/04/2024 Marrow No clonal abnormality was apparent 04/04/2024 Marrow B-ALL Panel within normal limits ------- A portion of the testing process was performed at [facility] site [id number]. Disclaimer See Comment Applicable to Analyte Specific Reagent (ASR) and Laboratory Developed Tests (LDT). This test was developed and its performance characteristi cs determined by [facility] in a manner consistent with CLIA requirements. It has not been cleared or approved by the U.S. Food and Drug Administratio n. This FISH test does not rule out other chromosome abnormalities . Released By Blanca Worthington D.O. Test Performed by: [place] [address] Business Support Associate: Trista West Ph.D.; CLIA# [id number] [facility] REFERENCE LABS Specimen BALPF-SIMMS Bone marrow 09/16 20:03 :00 [facility] REFERENCE LABS Reason for Referral BALPF-SIMMS History of BALL 09/16 20:03 :00 [facility] REFERENCE LABS Reason for Referral CHRBM History of B-ALL 09/16 17:45 :00 Result Comment: Collection date/time has been modified to: 11:45:00. Previous collection date/time: 14:11:00. [facility] REFERENCE LABS Chromosomes, Hematologic, BM See Comment [...] of the testing process was performed at [facility] [employer] site [id number]. Released By Gardenia Ohara M.D. Test Performed by: [facility] [place] [place] [address] Business Support Associate: Trista West Ph.D.; CLIA# [id number] [facility] Bone Marrow Report Bone Marrow Report AMENDED [...] e controls are performed on block [facility] for TdT, CD10, PAX5, CD79a, CD20. PAX5 [...] record. Cytogeneti cs: Chromosome analysis (performed at [facility], [address] [place] [address]) is performed on the bone marrow aspirate. Analysis identified a normal male karyotype. No clonal abnormalit y was apparent. 46,XY[20] Please see complete report in patient's electronic medical record. Molecular Genetics: B-ALL FISH analysis (performed at [facility], [address] [place] [address], [place] [address]) results are within normal limits for the B-ALL FISH panel as well as probes for the Ph-like B-ALL panel. In addition, no deletion of IKZF1 was observed. Interphase FISH is normal for all loci studied. ClonoSEQ B-cell tracking (performed at [employer] [address] [place] [address], [facility] [address], [place] [address]) is performed on the bone marrow aspirate. [...] report (if any) were determined by the [facility] Department of Pathology. They have not been [...] [id number] can be viewed in source system [facility] Flow Cytometry Report. Flow Cytometry Report. CLINICAL FLOW CYTOMETRY DEPT OF PATHOLOGY [place] [address] Phone: [phone] Patient: EVELINA REGALADO Collection Date: 09/16/2024 Service: Hematology Oncology Location: Oncology Facility: [facility] [id number] Attending Physician: Heike Barrientos MD : 2000 [...] Please contact the signing pathologis t at [phone] if you have further questions regarding these [...] by the Clinical Flow Cytometry Laboratory , [facility], [facility]. It has not been cleared or [...] high complexity clinical laboratory testing. [place]. [address] 09/16 14:03 :00 Missing Attachment [id number] can be viewed in source system [facility] CT Biopsy CT Biopsy CT Scan/CT Angio Accession # Exam Date/Time Procedure Ordering Provider [id number] 09/16/2024 14:[address] Biopsy Jasminshira BRISCOE, Adrián Edmondson Reason [...] suite and placed in the prone position. [place] timeout protocol was performed. The patient was [...] 09/16/24 16:35 09/16 13:42 :40 [facility] Gall Bladder Exam NM Gall Bladder Exam Nuc Med PET Accession # Exam Date/Time Procedure Ordering Provider [id number] 09/16/2024 13:40 [facility] LAB[facility] NM Gall Bladder Kyaw Kirkland MD Reason [...] Signed on: 09/16/24 13:41 09/16 10:20 :00 [facility] COAGULATIO N PT 11.4 s 9.4 - 12.5 09/16 09:06 :00 [facility] COAGULATIO N INR 1.0 0.9 - 1.2 [...] M, Halle DD, Schu n darby HJ; [employer] Antithromboti c Therapy and Prevention of Thrombosis Panel. Executive summary: Antithromboti c Therapy and Prevention of Thrombosis, 9th Ed: [employer] Evidence-Base d Clinical Practice Guidelines. Chest. 2012 Oct; 141(2 Suppl):7S-47S . doi: 10.1378/chest .1412S3 [facility] COAGULATIO N PTT 27.4 s 25.1 - [...] the Clinical Pathology Service for additional questions. [facility] URINALYSIS UA Epithelial Cells None Seen /lpf 09/15 10:00 :00 [facility] URINALYSIS RBC None Seen /hpf 0 - 2 09/15 10:00 :00 [facility] URINALYSIS WBC 0-3 /hpf 0 - 3 09/15 10:00 :00 [facility] URINALYSIS UA KETONES Negative mg/dL 09/15 10:00 :00 [facility] URINALYSIS UA GLUCOSE Negative mg/dL 09/15 10:00 :00 [facility] URINALYSIS UA UROBILINOGEN Negative Yumi unit/dL 0.2 - 1.0 09/15 10:00 :00 [facility] URINALYSIS BILIRUBIN Negative (09/15/24 4:00 AM) 09/15 10:00 :00 [facility] URINALYSIS UA PH 9 *NA* (09/15/24 4:00 AM) 4.5 - 8.0 09/15 10:00 :00 [facility] URINALYSIS UA PROTEIN Negative mg/dL 09/15 10:00 :00 [facility] URINALYSIS UA NITRITE Negative (09/15/24 4:00 AM) 09/15 10:00 :00 [facility] URINALYSIS UA LEUKOCYTES Negative (09/15/24 4:00 AM) 09/15 10:00 :00 [facility] URINALYSIS UA BLOOD Negative 16 (09/15/24 4:00 AM) 09/15 10:00 :00 Result Comment: A hemoglobin concentration of 0.015-0.062 mg/dL is approximately equivalent to 5 -20 intact red blood cells per microliter. [facility] URINALYSIS CLARITY Clear (09/15/24 4:00 AM) 09/15 10:00 :00 [facility] URINALYSIS SPECIFIC GRAVITY 1.005 1.006 - 1.030 09/15 10:00 :00 [facility] URINALYSIS COLOR Straw (09/15/24 4:00 AM) 09/15 10:00 :00 [facility] GENERAL CHEMISTRY Total Protein 4.6 g/dL 5.7 - 8.2 09/15 09:39 :00 [facility] GENERAL CHEMISTRY Creatinine, standardized 0.6 mg/dL 0.7 - 1.2 09/15 09:39 :00 Interpretive Data: Vdujez-vw-pwd e transgender patients on testosterone therapy should have results assessed using the male reference range. Lrng-ha-acnlx e transgender patients on hormone-modul ating therapy clinical judgment is advisedfor assessment. [facility] GENERAL CHEMISTRY Anion gap Unable to Calculate mmol/L 0 - 20 09/15 09:39 :00 Result Comment: Not a number; no computation performed (Invalid syntax) [facility] GENERAL CHEMISTRY T Bili 0.25 mg/dL 0.30 - 1.20 09/15 09:39 :00 [facility] GENERAL CHEMISTRY CO2 >40 mmol/L 20 - 09/15 09:39 :00 Result Comment: Critical Result(s) Called at: 05:10:07 09/15/2024. Called to and read back by:Morena Souza RN. AM [facility] GENERAL CHEMISTRY Potassium 3.0 mmol/L 3.5 - 5.1 09/15 09:39 :00 [facility] GENERAL CHEMISTRY Chloride 92 mmol/L 98 - 107 09/15 09:39 :00 [facility] GENERAL CHEMISTRY Sodium 139 mmol/L 136 - 145 09/15 09:39 :00 [facility] GENERAL CHEMISTRY Calcium 7.3 mg/dL 8.3 - 10.6 09/15 09:39 :00 [facility] GENERAL CHEMISTRY Glucose Lvl 89 mg/dL 70 - 139 09/15 09:39 :00 [facility] GENERAL CHEMISTRY BUN 7 mg/dL 6 - 20 09/15 09:39 :00 [facility] GENERAL CHEMISTRY Alkaline Phosphatase 103 U/L 40 - 129 09/15 09:39 :00 [facility] GENERAL CHEMISTRY ALT-SGPT 243 U/L 10 - 50 09/15 09:39 :00 [facility] GENERAL CHEMISTRY AST-SGOT 110 U/L 09/15 09:39 :00 [facility] GENERAL CHEMISTRY Albumin 2.8 g/dL 3.4 - 5.0 09/15 09:39 :00 [facility] GENERAL CHEMISTRY Estimated GFR for peds Not Calculated mL/min/1.7 3m 09/15 09:39 :00 Interpretive Data: The estimated GFR was calculated using the B lucero Dorado equation (2009) . Reference: Pediatric GFR calculator at [employer] Website. [facility] GENERAL CHEMISTRY Estimated GFR for Adults 141 mL/min/1.7 3m 09/15 09:39 :00 Interpretive Data: Changed to CKD-EPI 2020 on 2020. [facility] GENERAL CHEMISTRY Magnesium 1.47 mg/dL 1.60 - 2.60 09/15 09:39 :00 [facility] GENERAL CHEMISTRY Phosphorus 3.0 mg/dL 2.4 - 5.1 09/15 09:39 :00 [facility] HEMATOLOGY PROFILES HGB 7.6 g/dL 13.5 - 17.5 09/15 09:39 :00 Interpretive Data: Veyoqb-jm-udq e transgender patients on testosterone therapy should have results assessed using the male reference range. Vvyb-mm-tgjjs e transgender patients on hormone-modul ating therapy clinical judgment is advisedfor assessment. [facility] HEMATOLOGY PROFILES HCT 24.5 % 38.8 - 50.0 09/15 09:39 :00 Interpretive Data: Mjgqtp-ny-haz e transgender patients on testosterone therapy should have results assessed using the male reference range. Ytkn-im-doeze e transgender patients on hormone-modul ating therapy clinical judgment is advisedfor assessment. [facility] HEMATOLOGY PROFILES WBC 5.85 x10(9)/L 3.50 - 10.50 09/15 09:39 :00 [facility] HEMATOLOGY PROFILES RBC 2.34 x10(12)/L 4.32 - 5.72 09/15 09:39 :00 [facility] HEMATOLOGY PROFILES RDW SD 74.3 fL 35.1 - 43.9 09/15 09:39 :00 [facility] HEMATOLOGY PROFILES MCHC 31.0 g/dL 32.0 - 36.0 09/15 09:39 :00 [facility] HEMATOLOGY PROFILES RDW CV 19.6 % 11.8 - 15.6 09/15 09:39 :00 [facility] HEMATOLOGY PROFILES MCV 104.7 fL 81.2 - 95.1 09/15 09:39 :00 [facility] HEMATOLOGY PROFILES MCH 32.5 pg 26.0 - 33.0 09/15 09:39 :00 [facility] HEMATOLOGY PROFILES PLT 168 x10(9)/L 150 - 450 09/15 09:39 :00 [facility] HEMATOLOGY PROFILES MPV 10.7 8.0 - 12.0 09/15 09:39 :00 [facility] HEMATOLOGY PROFILES Absolute Granulocytes 4.42 x10(9)/L 1.70 - 7.00 09/15 09:39 :00 [facility] HEMATOLOGY PROFILES % Basophils 0.3 % 09/15 09:39 :00 [facility] HEMATOLOGY PROFILES % Immature Granulocytes 0.90 % 0.02 - 0.42 09/15 09:39 :00 [facility] HEMATOLOGY PROFILES % Monocytes 14.2 % 09/15 09:39 :00 [facility] HEMATOLOGY PROFILES % Eosinophils 2.7 % 09/15 09:39 :00 [facility] HEMATOLOGY PROFILES Abs Basophils 0.02 x10(9)/L 0.00 - 0.30 09/15 09:39 :00 [facility] HEMATOLOGY PROFILES Abs Immature Granulocytes 0.05 x10(9)/L 0.00 - 0.03 09/15 09:39 :00 [facility] HEMATOLOGY PROFILES Abs Monocytes 0.83 x10(9)/L 0.30 - 0.90 09/15 09:39 :00 [facility] HEMATOLOGY PROFILES Abs Eosinophils 0.16 x10(9)/L 0.05 - 0.50 09/15 09:39 :00 [facility] HEMATOLOGY PROFILES Abs Lymphocytes 0.37 x10(9)/L 0.90 - 2.90 09/15 09:39 :00 [facility] HEMATOLOGY PROFILES % Lymphocytes 6.3 % 09/15 09:39 :00 [facility] HEMATOLOGY PROFILES Absolute Nucleated RBCs 0.0 x10(9)/L 0.0 - 0.0 09/15 09:39 :00 Interpretive Data: Normal values not established in patients less than 18 years old. [facility] HEMATOLOGY PROFILES % Neutrophils 75.6 % 09/15 09:39 :00 [facility] HEMATOLOGY PROFILES % Nucleated RBCs 0.0 % 09/15 09:39 :00 [facility] THERAPEUTI C DRUGS Methotrexate Lvl 0.08 umol/L 09/15 09:39 :00 [facility] URINALYSIS RBC None Seen /hpf 0 - 2 09/15 02:58 :00 [facility] URINALYSIS UA Epithelial Cells None Seen /lpf 09/15 02:58 :00 [facility] URINALYSIS WBC 0-3 /hpf 0 - 3 09/15 02:58 :00 [facility] URINALYSIS COLOR Colorless (09/14/24 8:58 PM) 09/15 02:58 :00 [facility] URINALYSIS CLARITY Clear (09/14/24 8:58 PM) 09/15 02:58 :00 [facility] URINALYSIS SPECIFIC GRAVITY 1.003 1.006 - 1.030 09/15 02:58 :00 [facility] URINALYSIS UA UROBILINOGEN Negative Yumi unit/dL 0.2 - 1.0 09/15 02:58 :00 [facility] URINALYSIS BILIRUBIN Negative (09/14/24 8:58 PM) 09/15 02:58 :00 [facility] URINALYSIS UA KETONES Negative mg/dL 09/15 02:58 :00 [facility] URINALYSIS UA GLUCOSE Negative mg/dL 09/15 02:58 :00 [facility] URINALYSIS UA PH 9 *NA* (09/14/24 8:58 PM) 4.5 - 8.0 09/15 02:58 :00 [facility] URINALYSIS UA PROTEIN Negative mg/dL 09/15 02:58 :00 [facility] URINALYSIS UA NITRITE Negative (09/14/24 8:58 PM) 09/15 02:58 :00 [facility] URINALYSIS UA LEUKOCYTES Negative (09/14/24 8:58 PM) 09/15 02:58 :00 [facility] URINALYSIS UA BLOOD Negative 17 (09/14/24 8:58 PM) 09/15 02:58 :00 Result Comment: A hemoglobin concentration of 0.015-0.062 mg/dL is approximately equivalent to 5 -20 intact red blood cells per microliter. [facility] THERAPEUTI C DRUGS Methotrexate Lvl 0.10 umol/L 09/15 02:42 :00 [facility] URINALYSIS RBC None Seen /hpf 0 - 2 09/14 19:47 :00 [facility] URINALYSIS WBC None Seen /hpf 0 - 3 09/14 19:47 :00 [facility] URINALYSIS UA Epithelial Cells None Seen /lpf 09/14 19:47 :00 [facility] URINALYSIS UA UROBILINOGEN Negative Yumi unit/dL 0.2 - 1.0 09/14 19:47 :00 [facility] URINALYSIS UA BLOOD Negative 18 (09/14/24 1:47 PM) 09/14 19:47 :00 Result Comment: A hemoglobin concentration of 0.015-0.062 mg/dL is approximately equivalent to 5 -20 intact red blood cells per microliter. [facility] URINALYSIS UA PROTEIN Negative mg/dL 09/14 19:47 :00 [facility] URINALYSIS UA NITRITE Negative (09/14/24 1:47 PM) 09/14 19:47 :00 [facility] URINALYSIS UA LEUKOCYTES Negative (09/14/24 1:47 PM) 09/14 19:47 :00 [facility] URINALYSIS COLOR Straw (09/14/24 1:47 PM) 09/14 19:47 :00 [facility] URINALYSIS CLARITY Clear (09/14/24 1:47 PM) 09/14 19:47 :00 [facility] URINALYSIS SPECIFIC GRAVITY 1.004 1.006 - 1.030 09/14 19:47 :00 [facility] URINALYSIS BILIRUBIN Negative (09/14/24 1:47 PM) 09/14 19:47 :00 [facility] URINALYSIS UA KETONES Negative mg/dL 09/14 19:47 :00 [facility] URINALYSIS UA GLUCOSE Negative mg/dL 09/14 19:47 :00 [facility] URINALYSIS UA PH 9 *NA* (09/14/24 1:47 PM) 4.5 - 8.0 09/14 19:47 :00 [facility] HEMATOLOGY PROFILES Abs Basophils 0.01 x10(9)/L 0.00 - 0.30 09/14 14:27 :00 [facility] HEMATOLOGY PROFILES Abs Immature Granulocytes 0.10 x10(9)/L 0.00 - 0.03 09/14 14:27 :00 [facility] HEMATOLOGY PROFILES % Immature Granulocytes 0.90 % 0.02 - 0.42 09/14 14:27 :00 [facility] HEMATOLOGY PROFILES Absolute Granulocytes 8.18 x10(9)/L 1.70 - 7.00 09/14 14:27 :00 [facility] HEMATOLOGY PROFILES Abs Eosinophils 0.00 x10(9)/L 0.05 - 0.50 09/14 14:27 :00 [facility] HEMATOLOGY PROFILES Abs Lymphocytes 0.51 x10(9)/L 0.90 - 2.90 09/14 14:27 :00 [facility] HEMATOLOGY PROFILES Abs Monocytes 1.76 x10(9)/L 0.30 - 0.90 09/14 14:27 :00 [facility] HEMATOLOGY PROFILES % Neutrophils 77.5 % 09/14 14:27 :00 [facility] HEMATOLOGY PROFILES % Eosinophils 0.0 % 09/14 14:27 :00 [facility] HEMATOLOGY PROFILES % Basophils 0.1 % 09/14 14:27 :00 [facility] HEMATOLOGY PROFILES % Lymphocytes 4.8 % 09/14 14:27 :00 [facility] HEMATOLOGY PROFILES % Monocytes 16.7 % 09/14 14:27 :00 [facility] HEMATOLOGY PROFILES Schistocytes 1+ (Rare-3%) *NA* (09/14/24 8:27 AM) 09/14 14:27 :00 [facility] HEMATOLOGY PROFILES Stomatocytes 1+ (10-25%) *NA* (09/14/24 8:27 AM) 09/14 14:27 :00 [facility] HEMATOLOGY PROFILES Poly 1+ (2-10%) *NA* (09/14/24 8:27 AM) 09/14 14:27 :00 [facility] HEMATOLOGY PROFILES Macro 1+ (25-50%) *NA* (09/14/24 8:27 AM) 09/14 14:27 :00 [facility] HEMATOLOGY PROFILES Pappenheimer bodies Present *NA* (09/14/24 8:27 AM) 09/14 14:27 :00 [facility] HEMATOLOGY PROFILES Aniso 1+ (10-20%) *NA* (09/14/24 8:27 AM) 09/14 14:27 :00 [facility] HEMATOLOGY PROFILES Morphology Present *NA* (09/14/24 8:27 AM) 09/14 14:27 :00 [facility] HEMATOLOGY PROFILES Platelet Estimate Adequate *NA* (09/14/24 8:27 AM) 09/14 14:27 :00 [facility] HEMATOLOGY PROFILES Elliptocytes (Ovalocytes) 1+ (10-25%) *NA* (09/14/24 8:27 AM) 09/14 14:27 :00 [facility] HEMATOLOGY PROFILES Hypochromasi a 2+ (50-75%) *NA* (09/14/24 8:27 AM) 09/14 14:27 :00 [facility] THERAPEUTI C DRUGS Methotrexate Lvl 0.88 umol/L 09/14 13:06 :00 [facility] US Abdomen (Non Vascular) US Abdomen (Non Vascular) Ultrasound Accession # Exam Date/Time Procedure Ordering Provider [id number] 09/14/2024 12:42 [facility] US Abdomen (Non Haleigh Dunlap MD, Betul [...] Signed on: 09/14/24 15:18 09/14 11:27 :29 [facility] URINALYSIS UA NITRITE Negative (09/14/24 4:19 AM) 09/14 10:19 :00 [facility] URINALYSIS UA PROTEIN Negative mg/dL 09/14 10:19 :00 [facility] URINALYSIS UA LEUKOCYTES Negative (09/14/24 4:19 AM) 09/14 10:19 :00 [facility] URINALYSIS UA BLOOD Negative 19 (09/14/24 4:19 AM) 09/14 10:19 :00 Result Comment: A hemoglobin concentration of 0.015-0.062 mg/dL is approximately equivalent to 5 -20 intact red blood cells per microliter. [facility] URINALYSIS UA KETONES Negative mg/dL 09/14 10:19 :00 [facility] URINALYSIS UA UROBILINOGEN Negative Yumi unit/dL 0.2 - 1.0 09/14 10:19 :00 [facility] URINALYSIS BILIRUBIN Negative (09/14/24 4:19 AM) 09/14 10:19 :00 [facility] URINALYSIS UA PH 9 *NA* (09/14/24 4:19 AM) 4.5 - 8.0 09/14 10:19 :00 [facility] URINALYSIS SPECIFIC GRAVITY 1.006 1.006 - 1.030 09/14 10:19 :00 [facility] URINALYSIS UA GLUCOSE Negative mg/dL 09/14 10:19 :00 [facility] URINALYSIS COLOR Straw (09/14/24 4:19 AM) 09/14 10:19 :00 [facility] URINALYSIS CLARITY Clear (09/14/24 4:19 AM) 09/14 10:19 :00 [facility] URINALYSIS WBC 0-3 /hpf 0 - 3 09/14 10:19 :00 [facility] URINALYSIS UA Epithelial Cells None Seen /lpf 09/14 10:19 :00 [facility] URINALYSIS RBC None Seen /hpf 0 - 2 09/14 10:19 :00 [facility] GENERAL CHEMISTRY Magnesium 1.51 mg/dL 1.60 - 2.60 09/14 10:15 :00 [facility] GENERAL CHEMISTRY Phosphorus 2.5 mg/dL 2.4 - 5.1 09/14 10:15 :00 [facility] HEMATOLOGY PROFILES Abs Lymphocytes Manual 0.32 x10(9)/L 0.90 - 2.90 09/14 10:15 :00 [facility] HEMATOLOGY PROFILES Absolute Neutrophils Manual 7.29 x10(9)/L 1.70 - 7.00 09/14 10:15 :00 [facility] HEMATOLOGY PROFILES Abs Monocytes Manual 0.16 x10(9)/L 0.30 - 0.90 09/14 10:15 :00 [facility] HEMATOLOGY PROFILES Neuts Manual 93.8 % 09/14 10:15 :00 [facility] HEMATOLOGY PROFILES Lymphocytes Manual 4.1 % 09/14 10:15 :00 [facility] HEMATOLOGY PROFILES Monocytes Manual 2.1 % 09/14 10:15 :00 [facility] HEMATOLOGY PROFILES Morphology Present *NA* (09/14/24 4:15 AM) 09/14 10:15 :00 [facility] HEMATOLOGY PROFILES Platelet Estimate Adequate *NA* (09/14/24 4:15 AM) 09/14 10:15 :00 [facility] HEMATOLOGY PROFILES Aniso 1+ (10-20%) *NA* (09/14/24 4:15 AM) 09/14 10:15 :00 [facility] GENERAL CHEMISTRY Magnesium 1.86 mg/dL 1.60 - 2.60 09/13 11:17 :00 [facility] GENERAL CHEMISTRY Phosphorus 2.8 mg/dL 2.4 - 5.1 09/13 11:17 :00 [facility] XR Panorex XR Panorex XR General Diagnostic Accession # Exam Date/Time Procedure Ordering Provider [id number] 09/13/2024 08:14 [facility] [employer] XR Panorex Jarad Kelley MD Reason For [...] Signed on: 09/13/24 09:30 09/13 08:04 :52 [facility] URINALYSIS Urine Collection Method Clean Catch UR (09/12/24 5:31 PM) 09/12 23:31 :00 [facility] URINALYSIS UA Hyaline Casts 0-3 /lpf 0 - 3 09/12 23:31 :00 [facility] URINALYSIS UA Mucous Present *ABNORMAL* (09/12/24 2:55 PM) 09/12 20:55 :00 [facility] GENERAL CHEMISTRY Glucose Lvl 106 mg/dL 70 - 139 09/12 15:07 :00 [facility] GENERAL CHEMISTRY Chloride 99 mmol/L 98 - 107 09/12 15:07 :00 [facility] GENERAL CHEMISTRY Calcium 9.7 mg/dL 8.3 - 10.6 09/12 15:07 :00 [facility] GENERAL CHEMISTRY Sodium 136 mmol/L 136 - 145 09/12 15:07 :00 [facility] GENERAL CHEMISTRY Potassium 4.2 mmol/L 3.5 - 5.1 09/12 15:07 :00 [facility] GENERAL CHEMISTRY Estimated GFR for Adults 132 mL/min/1.7 3m 09/12 15:07 :00 Interpretive Data: Changed to CKD-EPI 2020 on 2020. [facility] GENERAL CHEMISTRY Estimated GFR for peds Not Calculated mL/min/1.7 3m 09/12 15:07 :00 Interpretive Data: The estimated GFR was calculated using the B lucero Dorado equation (2009) . Reference: Pediatric GFR calculator at [employer] Website. [facility] GENERAL CHEMISTRY Albumin 4.5 g/dL 3.4 - 5.0 09/12 15:07 :00 [facility] GENERAL CHEMISTRY T Bili 0.50 mg/dL 0.30 - 1.20 09/12 15:07 :00 [facility] GENERAL CHEMISTRY Alkaline Phosphatase 126 U/L 40 - 129 09/12 15:07 :00 [facility] GENERAL CHEMISTRY Total Protein 7.3 g/dL 5.7 - 8.2 09/12 15:07 :00 [facility] GENERAL CHEMISTRY CO2 26 mmol/L 20 - 31 09/12 15:07 :00 [facility] GENERAL CHEMISTRY AST-SGOT 68 U/L 09/12 15:07 :00 [facility] GENERAL CHEMISTRY Anion gap 15 mmol/L 0 - 20 09/12 15:07 :00 [facility] GENERAL CHEMISTRY ALT-SGPT 71 U/L 10 - 50 09/12 15:07 :00 [facility] GENERAL CHEMISTRY Creatinine, standardized 0.7 mg/dL 0.7 - 1.2 09/12 15:07 :00 Interpretive Data: Duimyk-nq-mkl e transgender patients on testosterone therapy should have results assessed using the male reference range. Kmqh-oy-ddvyk e transgender patients on hormone-modul ating therapy clinical judgment is advisedfor assessment. [facility] GENERAL CHEMISTRY BUN 21 mg/dL 6 - 20 09/12 15:07 :00 [facility] HEMATOLOGY PROFILES Aniso 2+ (20-50%) *NA* (09/12/24 9:07 AM) 09/12 15:07 :00 [facility] HEMATOLOGY PROFILES Abs Lymphocytes Manual 1.32 x10(9)/L 0.90 - 2.90 09/12 15:07 :00 [facility] HEMATOLOGY PROFILES Elliptocytes (Ovalocytes) 1+ (10-25%) *NA* (09/12/24 9:07 AM) 09/12 15:07 :00 [facility] HEMATOLOGY PROFILES Promyelos hp 1.0 % 09/12 15:07 :00 [facility] HEMATOLOGY PROFILES Absolute Neutrophils Manual 9.52 x10(9)/L 1.70 - 7.00 09/12 15:07 :00 [facility] HEMATOLOGY PROFILES Macro 1+ (25-50%) *NA* (09/12/24 9:07 AM) 09/12 15:07 :00 [facility] HEMATOLOGY PROFILES Teardrop 1+ (3-6%) *NA* (09/12/24 9:07 AM) 09/12 15:07 :00 [facility] HEMATOLOGY PROFILES Neuts Manual 72.0 % 09/12 15:07 :00 [facility] HEMATOLOGY PROFILES Abs Monocytes Manual 2.25 x10(9)/L 0.30 - 0.90 09/12 15:07 :00 [facility] HEMATOLOGY PROFILES Morphology Present *NA* (09/12/24 9:07 AM) 09/12 15:07 :00 [facility] HEMATOLOGY PROFILES Platelet Estimate Adequate *NA* (09/12/24 9:07 AM) 09/12 15:07 :00 [facility] HEMATOLOGY PROFILES Abs Promyelos 0.13 x10(9)/L 0.00 - 0.11 09/12 15:07 :00 [facility] HEMATOLOGY PROFILES Lymphocytes Manual 10.0 % 09/12 15:07 :00 [facility] HEMATOLOGY PROFILES Monocytes Manual 17.0 % 09/12 15:07 :00 [facility] HEMATOLOGY PROFILES Internal Review Yes (09/12/24 9:07 AM) 09/12 15:07 :00 [facility] HEMATOLOGY PROFILES MCH 33.5 pg 26.0 - 33.0 09/12 15:07 :00 [facility] HEMATOLOGY PROFILES MCHC 32.5 g/dL 32.0 - 36.0 09/12 15:07 :00 [facility] HEMATOLOGY PROFILES PLT 296 x10(9)/L 150 - 450 09/12 15:07 :00 [facility] HEMATOLOGY PROFILES RDW CV 20.0 % 11.8 - 15.6 09/12 15:07 :00 [facility] HEMATOLOGY PROFILES RDW SD 73.4 fL 35.1 - 43.9 09/12 15:07 :00 [facility] HEMATOLOGY PROFILES WBC 13.22 x10(9)/L 3.50 - 10.50 09/12 15:07 :00 [facility] HEMATOLOGY PROFILES RBC 3.28 x10(12)/L 4.32 - 5.72 09/12 15:07 :00 [facility] HEMATOLOGY PROFILES MPV 10.6 8.0 - 12.0 09/12 15:07 :00 [facility] HEMATOLOGY PROFILES MCV 103.0 fL 81.2 - 95.1 09/12 15:07 :00 [facility] HEMATOLOGY PROFILES HGB 11.0 g/dL 13.5 - 17.5 09/12 15:07 :00 Interpretive Data: Zmhcdt-jr-zwh e transgender patients on testosterone therapy should have results assessed using the male reference range. Mhmp-yq-dzqfx e transgender patients on hormone-modul ating therapy clinical judgment is advisedfor assessment. [facility] HEMATOLOGY PROFILES HCT 33.8 % 38.8 - 50.0 09/12 15:07 :00 Interpretive Data: Pkftnq-xy-pbt e transgender patients on testosterone therapy should have results assessed using the male reference range. Fnul-xp-rrivw e transgender patients on hormone-modul ating therapy clinical judgment is advisedfor assessment. [facility] HEMATOLOGY PROFILES Path Review Smear Pathologis t Review of Smear Interpreta tion: Agrees w/ abs. monocytosi s >#1.5. Interprete d by: Evelina Escalante M.D. 09/12 15:07 :00 [facility] HEMATOLOGY PROFILES QA Review Agree (09/12/24 9:07 AM) 09/12 15:07 :00 [facility] XR Chest Portable XR Chest Portable XR General Diagnostic Accession # Exam Date/Time Procedure Ordering Provider [id number] 09/12/2024 13:15 [facility] [employer]ER XR Chest Portable Jarad Kelley MD Reason [...] Signed on: 09/12/24 14:10 09/12 12:18 :57 [facility] BODY FLUIDS/CSF CSF, Protein 13 mg/dL 15 - 45 08/23 20:20 :00 [facility] BODY FLUIDS/CSF CSF, Glucose 79 mg/dL 40 - 70 08/23 20:20 :00 [facility] BODY FLUIDS/CSF CSF Cutoff Values See Comment [...] would require invasive sampling of normal people. [facility] BODY FLUIDS/CSF CSF, Spec Appear Clear (08/23/24 2:20 PM) 08/23 20:20 :00 [facility] BODY FLUIDS/CSF CSF, Color Colorless (08/23/24 2:20 PM) 08/23 20:20 :00 [facility] BODY FLUIDS/CSF CSF, WBC 2 /mcL 08/23 20:20 :00 Interpretive Data: Variation from manual counting may exceed 50% and approach 15-20% using automated method. Pleocytosis in Adults (increased WBC count) may be graded: Mild: 5-50 WBC/uL Moderate: 51-200 WBC/uL Severe: > 200 WBC/uL CSF may have > 60% neutrophils in high-risk neonates without meningitis [facility] BODY FLUIDS/CSF CSF, RBC 2 /mcL 08/23 20:20 :00 Interpretive Data: Variation from manual counting may exceed 50% and approach 15-20% using automated method. [facility] BODY FLUIDS/CSF Other Cells % CSF 5.0 % 08/23 20:20 :00 [facility] BODY FLUIDS/CSF CSF Cell Count-Neuts % 0 % 08/23 20:20 :00 [facility] BODY FLUIDS/CSF Monos/Macros /Histios % CSF 65.0 % 08/23 20:20 :00 [facility] BODY FLUIDS/CSF Lymph % CSF 30.0 % 08/23 20:20 :00 [facility] BODY FLUIDS/CSF CSF, Pathologist Review Pathologis t Review of CSF Interpreta tion: Agree. Others are ventricula r lining cells. Interprete d by: Evelina Escalante M.D. 08/23 20:20 :00 [facility] Cytology Non-BEAD WRAPPER Report Cytology Non-BEAD WRAPPER Report CYTOLOGY MEDICAL REPORT Patient Name: EVELINA REGALADO Specimen Number: [id number] Patient Collection Date: 08/23/2024 Submitting Physician: Heike Barrientos MD Signout Date: 08/26/2024 Other Physician( s): Aleisha Gordon MD ======== FINAL DIAGNOSIS CEREBROSPI NAL FLUID: Negative for leukemia. Please see previous material ([id number], [id number], [id number], [id number]) . Please see comment. Diagnosis Comment Microscopi [...] report (if any) were determined by the [facility] Department of Pathology. They have not been [...] laboratory testing. 08/23 14:19 :00 Missing Attachment [id number] can be viewed in source system [facility] GENERAL CHEMISTRY Chloride 103 mmol/L 98 - 107 08/23 09:18 :00 [facility] GENERAL CHEMISTRY Sodium 142 mmol/L 136 - 145 08/23 09:18 :00 [facility] GENERAL CHEMISTRY Calcium 9.2 mg/dL 8.3 - 10.6 08/23 09:18 :00 [facility] CHEMISTRY Glucose Lvl 129 mg/dL 70 - 139 08/23 09:18 :00 [facility] CHEMISTRY Potassium 3.9 mmol/L 3.5 - 5.1 08/23 09:18 :00 [facility] CHEMISTRY CO2 29 mmol/L 20 - 31 08/23 09:18 :00 [facility] CHEMISTRY Alkaline Phosphatase 79 U/L 40 - 129 08/23 09:18 :00 [facility] CHEMISTRY ALT-SGPT 26 U/L 10 - 50 08/23 09:18 :00 [facility] CHEMISTRY AST-SGOT 21 U/L 08/23 09:18 :00 [facility] CHEMISTRY Albumin 3.6 g/dL 3.4 - 5.0 08/23 09:18 :00 [facility] CHEMISTRY BUN 13 mg/dL 6 - 20 08/23 09:18 :00 [facility] CHEMISTRY Estimated GFR for Adults 142 mL/min/1.7 3m 08/23 09:18 :00 Interpretive Data: Changed to CKD-EPI 2020 on 2020. [facility] CHEMISTRY Estimated GFR for peds Not Calculated mL/min/1.7 3m 08/23 09:18 :00 Interpretive Data: The estimated GFR was calculated using the B [place] Dorado equation (2009) . Reference: Pediatric GFR calculator at [employer] Website. [facility] CHEMISTRY Total Protein 6.1 g/dL 5.7 - 8.2 08/23 09:18 :00 [facility] CHEMISTRY Anion gap 14 mmol/L 0 - 20 08/23 09:18 :00 [facility] GENERAL CHEMISTRY T Bili 0.43 mg/dL 0.30 - 1.20 08/23 09:18 :00 [facility] GENERAL CHEMISTRY Creatinine, standardized 0.5 mg/dL 0.7 - 1.2 08/23 09:18 :00 Interpretive Data: Xtcgep-sl-jzt e transgender patients on testosterone therapy should have results assessed using the male reference range. Cnjv-ef-qwibc e transgender patients on hormone-modul ating therapy clinical judgment is advisedfor assessment. [facility] HEMATOLOGY PROFILES QA Review Agree (08/23/24 3:18 AM) 08/23 09:18 :00 [facility] HEMATOLOGY PROFILES Path Review Smear Pathologis t Review of Smear Interpreta tion: Agree Interprete d by: Susy Barragan i, MD 08/23 09:18 :00 [facility] HEMATOLOGY PROFILES Teardrop 1+ (3-6%) *NA* (08/23/24 3:18 AM) 08/23 09:18 :00 [facility] HEMATOLOGY PROFILES Monocytes Manual 8.0 % 08/23 09:18 :00 [facility] HEMATOLOGY PROFILES Neuts Manual 92.0 % 08/23 09:18 :00 [facility] HEMATOLOGY PROFILES Morphology Present *NA* (08/23/24 3:18 AM) 08/23 09:18 :00 [facility] HEMATOLOGY PROFILES Abs Monocytes Manual 0.96 x10(9)/L 0.30 - 0.90 08/23 09:18 :00 [facility] HEMATOLOGY PROFILES Absolute Neutrophils Manual 11.03 x10(9)/L 1.70 - 7.00 08/23 09:18 :00 [facility] HEMATOLOGY PROFILES Internal Review Yes (08/23/24 3:18 AM) 08/23 09:18 :00 [facility] HEMATOLOGY PROFILES Platelet Estimate Adequate *NA* (08/23/24 3:18 AM) 08/23 09:18 :00 [facility] HEMATOLOGY PROFILES Aniso 2+ (20-50%) *NA* (08/23/24 3:18 AM) 08/23 09:18 :00 [facility] HEMATOLOGY PROFILES Elliptocytes (Ovalocytes) 1+ (10-25%) *NA* (08/23/24 3:18 AM) 08/23 09:18 :00 [facility] HEMATOLOGY PROFILES Macro 1+ (25-50%) *NA* (08/23/24 3:18 AM) 08/23 09:18 :00 [facility] HEMATOLOGY PROFILES MCHC 31.7 g/dL 32.0 - 36.0 08/23 09:18 :00 [facility] HEMATOLOGY PROFILES MCH 32.2 pg 26.0 - 33.0 08/23 09:18 :00 [facility] HEMATOLOGY PROFILES MCV 101.3 fL 81.2 - 95.1 08/23 09:18 :00 [facility] HEMATOLOGY PROFILES HCT 31.5 % 38.8 - 50.0 08/23 09:18 :00 Interpretive Data: Ihfhke-ht-gey e transgender patients on testosterone therapy should have results assessed using the male reference range. Dtfj-sb-wzpdt e transgender patients on hormone-modul ating therapy clinical judgment is advisedfor assessment. [facility] HEMATOLOGY PROFILES HGB 10.0 g/dL 13.5 - 17.5 08/23 09:18 :00 Interpretive Data: Tkwfwx-sn-eek e transgender patients on testosterone therapy should have results assessed using the male reference range. Jkbg-ro-zwcmt e transgender patients on hormone-modul ating therapy clinical judgment is advisedfor assessment. [facility] HEMATOLOGY PROFILES MPV 10.2 8.0 - 12.0 08/23 09:18 :00 [facility] HEMATOLOGY PROFILES PLT 206 x10(9)/L 150 - 450 08/23 09:18 :00 [facility] HEMATOLOGY PROFILES RDW SD 78.7 fL 35.1 - 43.9 08/23 09:18 :00 [facility] HEMATOLOGY PROFILES RDW CV 22.0 % 11.8 - 15.6 08/23 09:18 :00 [facility] HEMATOLOGY PROFILES RBC 3.11 x10(12)/L 4.32 - 5.72 08/23 09:18 :00 [facility] HEMATOLOGY PROFILES WBC 11.99 x10(9)/L 3.50 - 10.50 08/23 09:18 :00 [facility] GENERAL CHEMISTRY Creatinine, standardized 0.5 mg/dL 0.7 - 1.2 08/22 10:15 :00 Interpretive Data: Dgezas-ik-clc e transgender patients on testosterone therapy should have results assessed using the male reference range. Kqci-ss-gvbyy e transgender patients on hormone-modul ating therapy clinical judgment is advisedfor assessment. [facility] GENERAL CHEMISTRY Estimated GFR for Adults 141 mL/min/1.7 3m 08/22 10:15 :00 Interpretive Data: Changed to CKD-EPI 2020 on 2020. [facility] CHEMISTRY Estimated GFR for peds Not Calculated mL/min/1.7 3m 08/22 10:15 :00 Interpretive Data: The estimated GFR was calculated using the B lucero Dorado equation (2009) . Reference: Pediatric GFR calculator at [employer] Website. [facility] GENERAL CHEMISTRY Chloride 108 mmol/L 98 - 107 08/22 10:15 :00 [facility] GENERAL CHEMISTRY Glucose Lvl 127 mg/dL 70 - 139 08/22 10:15 :00 [facility] GENERAL CHEMISTRY Sodium 143 mmol/L 136 - 145 08/22 10:15 :00 [facility] GENERAL CHEMISTRY Calcium 8.4 mg/dL 8.3 - 10.6 08/22 10:15 :00 [facility] GENERAL CHEMISTRY BUN 14 mg/dL 6 - 20 08/22 10:15 :00 [facility] GENERAL CHEMISTRY Total Protein 5.5 g/dL 5.7 - 8.2 08/22 10:15 :00 [facility] GENERAL CHEMISTRY T Bili 0.21 mg/dL 0.30 - 1.20 08/22 10:15 :00 [facility] GENERAL CHEMISTRY Potassium 3.6 mmol/L 3.5 - 5.1 08/22 10:15 :00 [facility] GENERAL CHEMISTRY Anion gap 15 mmol/L 0 - 20 08/22 10:15 :00 [facility] GENERAL CHEMISTRY CO2 24 mmol/L 20 - 31 08/22 10:15 :00 [facility] GENERAL CHEMISTRY Alkaline Phosphatase 82 U/L 40 - 129 08/22 10:15 :00 [facility] GENERAL CHEMISTRY Albumin 3.4 g/dL 3.4 - 5.0 08/22 10:15 :00 [facility] GENERAL CHEMISTRY ALT-SGPT 20 U/L 10 - 50 08/22 10:15 :00 [facility] GENERAL CHEMISTRY AST-SGOT 22 U/L 08/22 10:15 :00 [facility] HEMATOLOGY PROFILES WBC 9.18 x10(9)/L 3.50 - 10.50 08/22 10:15 :00 [facility] HEMATOLOGY PROFILES RBC 2.66 x10(12)/L 4.32 - 5.72 08/22 10:15 :00 [facility] HEMATOLOGY PROFILES HGB 8.6 g/dL 13.5 - 17.5 08/22 10:15 :00 Interpretive Data: Dtsqbh-qs-whd e transgender patients on testosterone therapy should have results assessed using the male reference range. Mfbv-ef-cxzei e transgender patients on hormone-modul ating therapy clinical judgment is advisedfor assessment. [facility] HEMATOLOGY PROFILES RDW SD 81.0 fL 35.1 - 43.9 08/22 10:15 :00 [facility] HEMATOLOGY PROFILES PLT 174 x10(9)/L 150 - 450 08/22 10:15 :00 [facility] HEMATOLOGY PROFILES MPV 10.4 8.0 - 12.0 08/22 10:15 :00 [facility] HEMATOLOGY PROFILES MCHC 31.7 g/dL 32.0 - 36.0 08/22 10:15 :00 [facility] HEMATOLOGY PROFILES RDW CV 22.5 % 11.8 - 15.6 08/22 10:15 :00 [facility] HEMATOLOGY PROFILES HCT 27.1 % 38.8 - 50.0 08/22 10:15 :00 Interpretive Data: Tnokpd-fk-tus e transgender patients on testosterone therapy should have results assessed using the male reference range. Qiyc-ph-ugmkf e transgender patients on hormone-modul ating therapy clinical judgment is advisedfor assessment. [facility] HEMATOLOGY PROFILES MCV 101.9 fL 81.2 - 95.1 08/22 10:15 :00 [facility] HEMATOLOGY PROFILES MCH 32.3 pg 26.0 - 33.0 08/22 10:15 :00 [facility] HEMATOLOGY PROFILES Absolute Nucleated RBCs 0.0 x10(9)/L 0.0 - 0.0 08/22 10:15 :00 Interpretive Data: Normal values not established in patients less than 18 years old. [facility] HEMATOLOGY PROFILES % Neutrophils 86.5 % 08/22 10:15 :00 [facility] HEMATOLOGY PROFILES % Lymphocytes 1.9 % 08/22 10:15 :00 [facility] HEMATOLOGY PROFILES % Monocytes 10.8 % 08/22 10:15 :00 [facility] HEMATOLOGY PROFILES Abs Basophils 0.00 x10(9)/L 0.00 - 0.30 08/22 10:15 :00 [facility] HEMATOLOGY PROFILES % Eosinophils 0.0 % 08/22 10:15 :00 [facility] HEMATOLOGY PROFILES % Basophils 0.0 % 08/22 10:15 :00 [facility] HEMATOLOGY PROFILES Absolute Granulocytes 7.95 x10(9)/L 1.70 - 7.00 08/22 10:15 :00 [facility] HEMATOLOGY PROFILES Abs Lymphocytes 0.17 x10(9)/L 0.90 - 2.90 08/22 10:15 :00 [facility] HEMATOLOGY PROFILES Abs Monocytes 0.99 x10(9)/L 0.30 - 0.90 08/22 10:15 :00 [facility] HEMATOLOGY PROFILES Abs Eosinophils 0.00 x10(9)/L 0.05 - 0.50 08/22 10:15 :00 [facility] HEMATOLOGY PROFILES % Nucleated RBCs 0.0 % 08/22 10:15 :00 [facility] HEMATOLOGY PROFILES Platelet Estimate Adequate (08/22/24 4:15 AM) 08/22 10:15 :00 [facility] HEMATOLOGY PROFILES Aniso 2+ (20-50%) (08/22/24 4:15 AM) 08/22 10:15 :00 [facility] HEMATOLOGY PROFILES Schistocytes 1+ (Rare-3%) (08/22/24 4:15 AM) 08/22 10:15 :00 [facility] HEMATOLOGY PROFILES Morphology Present (08/22/24 4:15 AM) 08/22 10:15 :00 [facility] GENERAL CHEMISTRY Albumin 3.9 g/dL 3.4 - 5.0 08/21 10:48 :00 [facility] GENERAL CHEMISTRY AST-SGOT 27 U/L 08/21 10:48 :00 [facility] GENERAL CHEMISTRY BUN 10 mg/dL 6 - 20 08/21 10:48 :00 [facility] GENERAL CHEMISTRY ALT-SGPT 24 U/L 10 - 50 08/21 10:48 :00 [facility] GENERAL CHEMISTRY Alkaline Phosphatase 101 U/L 40 - 129 08/21 10:48 :00 [facility] GENERAL CHEMISTRY Glucose Lvl 123 mg/dL 70 - 139 08/21 10:48 :00 [facility] GENERAL CHEMISTRY Calcium 9.7 mg/dL 8.3 - 10.6 08/21 10:48 :00 [facility] GENERAL CHEMISTRY Potassium 4.0 mmol/L 3.5 - 5.1 08/21 10:48 :00 [facility] GENERAL CHEMISTRY Sodium 142 mmol/L 136 - 145 08/21 10:48 :00 [facility] GENERAL CHEMISTRY Chloride 105 mmol/L 98 - 107 08/21 10:48 :00 [facility] GENERAL CHEMISTRY Anion gap 14 mmol/L 0 - 20 08/21 10:48 :00 [facility] GENERAL CHEMISTRY CO2 27 mmol/L 20 - 31 08/21 10:48 :00 [facility] CHEMISTRY Creatinine, standardized 0.5 mg/dL 0.7 - 1.2 08/21 10:48 :00 Interpretive Data: Ornsgn-bz-rfb e transgender patients on testosterone therapy should have results assessed using the male reference range. Tjgj-vk-gtnwt e transgender patients on hormone-modul ating therapy clinical judgment is advisedfor assessment. [facility] CHEMISTRY Total Protein 6.6 g/dL 5.7 - 8.2 08/21 10:48 :00 [facility] GENERAL CHEMISTRY T Bili 0.31 mg/dL 0.30 - 1.20 08/21 10:48 :00 Result Comment: see qc comments [facility] GENERAL CHEMISTRY Estimated GFR for peds Not Calculated mL/min/1.7 3m 08/21 10:48 :00 Interpretive Data: The estimated GFR was calculated using the B lucero Dorado equation (2009) . Reference: Pediatric GFR calculator at [employer] Website. [facility] CHEMISTRY Estimated GFR for Adults 142 mL/min/1.7 3m 08/21 10:48 :00 Interpretive Data: Changed to CKD-EPI 2020 on 2020. [facility] GENERAL CHEMISTRY LDH 210 U/L 120 - 246 08/21 10:48 :00 [facility] GENERAL CHEMISTRY Phosphorus 3.6 mg/dL 2.4 - 5.1 08/21 10:48 :00 [facility] GENERAL CHEMISTRY Uric Acid 5.6 mg/dL 3.7 - 9.2 08/21 10:48 :00 [facility] HEMATOLOGY PROFILES Elliptocytes (Ovalocytes) 1+ (10-25%) *NA* (08/21/24 4:48 AM) 08/21 10:48 :00 [facility] HEMATOLOGY PROFILES Aniso 1+ (10-20%) *NA* (08/21/24 4:48 AM) 08/21 10:48 :00 [facility] HEMATOLOGY PROFILES Platelet Estimate Adequate *NA* (08/21/24 4:48 AM) 08/21 10:48 :00 [facility] HEMATOLOGY PROFILES Morphology Present *NA* (08/21/24 4:48 AM) 08/21 10:48 :00 [facility] HEMATOLOGY PROFILES Monocytes Manual 0.9 % 08/21 10:48 :00 [facility] HEMATOLOGY PROFILES Lymphocytes Manual 6.9 % 08/21 10:48 :00 [facility] HEMATOLOGY PROFILES Neuts Manual 92.2 % 08/21 10:48 :00 [facility] HEMATOLOGY PROFILES Abs Monocytes Manual 0.05 x10(9)/L 0.30 - 0.90 08/21 10:48 :00 [facility] HEMATOLOGY PROFILES Abs Lymphocytes Manual 0.40 x10(9)/L 0.90 - 2.90 08/21 10:48 :00 [facility] HEMATOLOGY PROFILES Absolute Neutrophils Manual 5.40 x10(9)/L 1.70 - 7.00 08/21 10:48 :00 [facility] HEMATOLOGY PROFILES Stomatocytes 1+ (10-25%) *NA* (08/21/24 4:48 AM) 08/21 10:48 :00 [facility] HEMATOLOGY PROFILES Poly 1+ (2-10%) *NA* (08/21/24 4:48 AM) 08/21 10:48 :00 [facility] HEMATOLOGY PROFILES Macro 1+ (25-50%) *NA* (08/21/24 4:48 AM) 08/21 10:48 :00 [facility] HEMATOLOGY PROFILES WBC 5.86 x10(9)/L 3.50 - 10.50 08/21 10:48 :00 [facility] HEMATOLOGY PROFILES HCT 29.7 % 38.8 - 50.0 08/21 10:48 :00 Interpretive Data: Evsybu-ya-bnu e transgender patients on testosterone therapy should have results assessed using the male reference range. Zrrb-bi-noajh e transgender patients on hormone-modul ating therapy clinical judgment is advisedfor assessment. [facility] HEMATOLOGY PROFILES HGB 9.5 g/dL 13.5 - 17.5 08/21 10:48 :00 Interpretive Data: Klcxwf-hu-lhf e transgender patients on testosterone therapy should have results assessed using the male reference range. Sbot-xo-wytbp e transgender patients on hormone-modul ating therapy clinical judgment is advisedfor assessment. [facility] HEMATOLOGY PROFILES RBC 2.96 x10(12)/L 4.32 - 5.72 08/21 10:48 :00 [facility] HEMATOLOGY PROFILES MCHC 32.0 g/dL 32.0 - 36.0 08/21 10:48 :00 [facility] HEMATOLOGY PROFILES RDW CV 22.3 % 11.8 - 15.6 08/21 10:48 :00 [facility] HEMATOLOGY PROFILES MCV 100.3 fL 81.2 - 95.1 08/21 10:48 :00 [facility] HEMATOLOGY PROFILES MCH 32.1 pg 26.0 - 33.0 08/21 10:48 :00 [facility] HEMATOLOGY PROFILES RDW SD 78.2 fL 35.1 - 43.9 08/21 10:48 :00 [facility] HEMATOLOGY PROFILES MPV 9.7 8.0 - 12.0 08/21 10:48 :00 [facility] HEMATOLOGY PROFILES PLT 200 x10(9)/L 150 - 450 08/21 10:48 :00 [facility] BODY FLUIDS/CSF CSF, Protein 19 mg/dL 15 - 45 08/20 21:30 :00 [facility] BODY FLUIDS/CSF CSF, Glucose 74 mg/dL 40 - 70 08/20 21:30 :00 [facility] BODY FLUIDS/CSF CSF, RBC 1 /mcL 08/20 21:30 :00 Interpretive Data: Variation from manual counting may exceed 50% and approach 15-20% using automated method. [facility] BODY FLUIDS/CSF CSF, WBC 0 /mcL 08/20 21:30 :00 Interpretive Data: Variation from manual counting may exceed 50% and approach 15-20% using automated method. Pleocytosis in Adults (increased WBC count) may be graded: Mild: 5-50 WBC/uL Moderate: 51-200 WBC/uL Severe: > 200 WBC/uL CSF may have > 60% neutrophils in high-risk neonates without meningitis [facility] BODY FLUIDS/CSF CSF, Spec Appear Clear (08/20/24 3:30 PM) 08/20 21:30 :00 [facility] BODY FLUIDS/CSF CSF, Color Colorless (08/20/24 3:30 PM) 08/20 21:30 :00 [facility] BODY FLUIDS/CSF CSF Cutoff Values See Comment [...] would require invasive sampling of normal people. [facility] Cytology Non-BEAD WRAPPER Report Cytology Non-BEAD WRAPPER Report CYTOLOGY MEDICAL REPORT Patient Name: EVELINA REGALADO Specimen Number: [id number] Patient Collection Date: 08/20/2024 Submitting Physician: Heike Barrientos MD Signout Date: 08/21/2024 Other Physician( s): Aleisha Gordon MD ======== FINAL DIAGNOSIS CEREBROSPI NAL FLUID: Negative for leukemia. Please see previous material ([id number] , [id number], [id number], [id number], [id number]). Please see comment. Diagnosis Comment Microscopi c [...] report (if any) were determined by the [facility] Department of Pathology. They have not been [...] laboratory testing. 08/20 15:28 :00 Missing Attachment [id number] can be viewed in source system [facility] GENERAL CHEMISTRY AST-SGOT 26 U/L 08/20 10:14 :00 [facility] GENERAL CHEMISTRY Albumin 3.8 g/dL 3.4 - 5.0 08/20 10:14 :00 [facility] GENERAL CHEMISTRY Alkaline Phosphatase 89 U/L 40 - 129 08/20 10:14 :00 [facility] GENERAL CHEMISTRY ALT-SGPT 19 U/L 10 - 50 08/20 10:14 :00 [facility] GENERAL CHEMISTRY T Bili 0.30 mg/dL 0.30 - 1.20 08/20 10:14 :00 [facility] GENERAL CHEMISTRY Anion gap 11 mmol/L 0 - 20 08/20 10:14 :00 [facility] GENERAL CHEMISTRY Creatinine, standardized 0.7 mg/dL 0.7 - 1.2 08/20 10:14 :00 Interpretive Data: Waqzio-zk-any e transgender patients on testosterone therapy should have results assessed using the male reference range. Hbwo-fx-jfsvm e transgender patients on hormone-modul ating therapy clinical judgment is advisedfor assessment. [facility] GENERAL CHEMISTRY Total Protein 6.0 g/dL 5.7 - 8.2 08/20 10:14 :00 [facility] GENERAL CHEMISTRY CO2 30 mmol/L 20 - 31 08/20 10:14 :00 [facility] GENERAL CHEMISTRY Estimated GFR for peds Not calculated 08/20 10:14 :00 Interpretive Data: The estimated GFR was calculated using the B lucero Dorado equation (2009) . Reference: Pediatric GFR calculator at [employer] Website. [facility] CHEMISTRY Estimated GFR for Adults 132 mL/min/1.7 3m 08/20 10:14 :00 Interpretive Data: Changed to CKD-EPI 2020 on 2020. [facility] GENERAL CHEMISTRY Calcium 9.0 mg/dL 8.3 - 10.6 08/20 10:14 :00 [facility] GENERAL CHEMISTRY Glucose Lvl 87 mg/dL 70 - 139 08/20 10:14 :00 [facility] GENERAL CHEMISTRY Chloride 104 mmol/L 98 - 107 08/20 10:14 :00 [facility] GENERAL CHEMISTRY Sodium 141 mmol/L 136 - 145 08/20 10:14 :00 [facility] GENERAL CHEMISTRY BUN 8 mg/dL 6 - 20 08/20 10:14 :00 [facility] GENERAL CHEMISTRY Potassium 3.9 mmol/L 3.5 - 5.1 08/20 10:14 :00 [facility] HEMATOLOGY PROFILES MCHC 30.8 g/dL 32.0 - 36.0 08/20 10:14 :00 [facility] HEMATOLOGY PROFILES MCH 31.3 pg 26.0 - 33.0 08/20 10:14 :00 [facility] HEMATOLOGY PROFILES MCV 101.8 fL 81.2 - 95.1 08/20 10:14 :00 [facility] HEMATOLOGY PROFILES HCT 28.9 % 38.8 - 50.0 08/20 10:14 :00 Interpretive Data: Ipwasn-vi-edo e transgender patients on testosterone therapy should have results assessed using the male reference range. Ikdu-od-tchpo e transgender patients on hormone-modul ating therapy clinical judgment is advisedfor assessment. [facility] HEMATOLOGY PROFILES HGB 8.9 g/dL 13.5 - 17.5 08/20 10:14 :00 Interpretive Data: Mgwdpa-ek-zga e transgender patients on testosterone therapy should have results assessed using the male reference range. Mhgd-qv-wmfue e transgender patients on hormone-modul ating therapy clinical judgment is advisedfor assessment. [facility] HEMATOLOGY PROFILES RBC 2.84 x10(12)/L 4.32 - 5.72 08/20 10:14 :00 [facility] HEMATOLOGY PROFILES MPV 9.9 8.0 - 12.0 08/20 10:14 :00 [facility] HEMATOLOGY PROFILES PLT 205 x10(9)/L 150 - 450 08/20 10:14 :00 [facility] HEMATOLOGY PROFILES RDW SD 83.7 fL 35.1 - 43.9 08/20 10:14 :00 [facility] HEMATOLOGY PROFILES RDW CV 23.4 % 11.8 - 15.6 08/20 10:14 :00 [facility] HEMATOLOGY PROFILES WBC 4.19 x10(9)/L 3.50 - 10.50 08/20 10:14 :00 [facility] HEMATOLOGY PROFILES Neuts Manual 62.5 % 08/20 10:14 :00 [facility] HEMATOLOGY PROFILES Lymphocytes Manual 11.6 % 08/20 10:14 :00 [facility] HEMATOLOGY PROFILES Abs Monocytes Manual 0.97 x10(9)/L 0.30 - 0.90 08/20 10:14 :00 [facility] HEMATOLOGY PROFILES Abs Eosinophils Manual 0.04 x10(9)/L 0.05 - 0.50 08/20 10:14 :00 [facility] HEMATOLOGY PROFILES Abs Basophils Manual 0.08 x10(9)/L 0.00 - 0.30 08/20 10:14 :00 [facility] HEMATOLOGY PROFILES Poly 1+ (2-10%) *NA* (08/20/24 4:14 AM) 08/20 10:14 :00 [facility] HEMATOLOGY PROFILES Platelet Estimate Adequate *NA* (08/20/24 4:14 AM) 08/20 10:14 :00 [facility] HEMATOLOGY PROFILES Aniso 2+ (20-50%) *NA* (08/20/24 4:14 AM) 08/20 10:14 :00 [facility] HEMATOLOGY PROFILES Elliptocytes (Ovalocytes) 1+ (10-25%) *NA* (08/20/24 4:14 AM) 08/20 10:14 :00 [facility] HEMATOLOGY PROFILES Macro 1+ (25-50%) *NA* (08/20/24 4:14 AM) 08/20 10:14 :00 [facility] HEMATOLOGY PROFILES Morphology Present *NA* (08/20/24 4:14 AM) 08/20 10:14 :00 [facility] HEMATOLOGY PROFILES Monocytes Manual 23.2 % 08/20 10:14 :00 [facility] HEMATOLOGY PROFILES Eosinophils Manual 0.9 % 08/20 10:14 :00 [facility] HEMATOLOGY PROFILES Basophils Manual 1.8 % 08/20 10:14 :00 [facility] HEMATOLOGY PROFILES Absolute Neutrophils Manual 2.62 x10(9)/L 1.70 - 7.00 08/20 10:14 :00 [facility] HEMATOLOGY PROFILES Abs Lymphocytes Manual 0.49 x10(9)/L 0.90 - 2.90 08/20 10:14 :00 [facility] HEMATOLOGY PROFILES Schistocytes 1+ (Rare-3%) *NA* (08/20/24 4:14 AM) 08/20 10:14 :00 [facility] HEMATOLOGY PROFILES % Neutrophils 60.6 % 08/19 19:33 :00 [facility] HEMATOLOGY PROFILES Absolute Nucleated RBCs 0.0 x10(9)/L 0.0 - 0.0 08/19 19:33 :00 Interpretive Data: Normal values not established in patients less than 18 years old. [facility] HEMATOLOGY PROFILES % Nucleated RBCs 0.0 % 08/19 19:33 :00 [facility] HEMATOLOGY PROFILES Absolute Granulocytes 3.47 x10(9)/L 1.70 - 7.00 08/19 19:33 :00 [facility] HEMATOLOGY PROFILES % Immature Granulocytes 1.00 % 0.02 - 0.42 08/19 19:33 :00 [facility] HEMATOLOGY PROFILES % Basophils 0.9 % 08/19 19:33 :00 [facility] HEMATOLOGY PROFILES % Eosinophils 0.2 % 08/19 19:33 :00 [facility] HEMATOLOGY PROFILES % Monocytes 25.3 % 08/19 19:33 :00 [facility] HEMATOLOGY PROFILES % Lymphocytes 12.0 % 08/19 19:33 :00 [facility] HEMATOLOGY PROFILES Abs Immature Granulocytes 0.06 x10(9)/L 0.00 - 0.03 08/19 19:33 :00 [facility] HEMATOLOGY PROFILES Abs Basophils 0.05 x10(9)/L 0.00 - 0.30 08/19 19:33 :00 [facility] HEMATOLOGY PROFILES Abs Eosinophils 0.01 x10(9)/L 0.05 - 0.50 08/19 19:33 :00 [facility] HEMATOLOGY PROFILES Abs Monocytes 1.45 x10(9)/L 0.30 - 0.90 08/19 19:33 :00 [facility] HEMATOLOGY PROFILES Abs Lymphocytes 0.69 x10(9)/L 0.90 - 2.90 08/19 19:33 :00 [facility] BODY FLUIDS/CSF CSF, Spec Appear Clear (07/26/24 12:30 PM) 07/26 18:30 :00 [facility] BODY FLUIDS/CSF CSF, Color Colorless (07/26/24 12:30 PM) 07/26 18:30 :00 [facility] BODY FLUIDS/CSF CSF Xanthochromi c Absent (07/26/24 12:30 PM) 07/26 18:30 :00 [facility] BODY FLUIDS/CSF CSF, WBC 3 /mcL 07/26 18:30 :00 Interpretive Data: Variation from manual counting may exceed 50% and approach 15-20% using automated method. Pleocytosis in Adults (increased WBC count) may be graded: Mild: 5-50 WBC/uL Moderate: 51-200 WBC/uL Severe: > 200 WBC/uL CSF may have > 60% neutrophils in high-risk neonates without meningitis [facility] BODY FLUIDS/CSF CSF, RBC 0 /mcL 07/26 18:30 :00 Interpretive Data: Variation from manual counting may exceed 50% and approach 15-20% using automated method. [facility] BODY FLUIDS/CSF CSF Cutoff Values See Comment [...] would require invasive sampling of normal people. [facility] BODY FLUIDS/CSF CSF Cell Count-Neuts % 0 % 07/26 18:30 :00 [facility] BODY FLUIDS/CSF Lymph % CSF 100.0 % 07/26 18:30 :00 [facility] GENERAL CHEMISTRY AST-SGOT 30 U/L 07/26 16:24 :29 [facility] GENERAL CHEMISTRY Albumin 3.9 g/dL 3.4 - 5.0 07/26 16:24 :29 [facility] GENERAL CHEMISTRY Alkaline Phosphatase 104 U/L 40 - 129 07/26 16:24 :29 [facility] GENERAL CHEMISTRY ALT-SGPT 98 U/L 10 - 50 07/26 16:24 :29 [facility] GENERAL CHEMISTRY BUN 13 mg/dL 6 - 20 07/26 16:24 :29 [facility] GENERAL CHEMISTRY Calcium 9.6 mg/dL 8.3 - 10.6 07/26 16:24 :29 [facility] GENERAL CHEMISTRY Glucose Lvl 91 mg/dL 70 - 139 07/26 16:24 :29 [facility] GENERAL CHEMISTRY Chloride 105 mmol/L 98 - 107 07/26 16:24 :29 [facility] GENERAL CHEMISTRY Sodium 143 mmol/L 136 - 145 07/26 16:24 :29 [facility] GENERAL CHEMISTRY Potassium 3.6 mmol/L 3.5 - 5.1 07/26 16:24 :29 [facility] GENERAL CHEMISTRY CO2 26 mmol/L 20 - 31 07/26 16:24 :29 [facility] GENERAL CHEMISTRY Anion gap 16 mmol/L 0 - 20 07/26 16:24 :29 [facility] GENERAL CHEMISTRY T Bili 0.49 mg/dL 0.30 - 1.20 07/26 16:24 :29 [facility] GENERAL CHEMISTRY Total Protein 6.5 g/dL 5.7 - 8.2 07/26 16:24 :29 [facility] GENERAL CHEMISTRY Creatinine, standardized 0.6 mg/dL 0.7 - 1.2 07/26 16:24 :29 Interpretive Data: Hgyhys-ql-fut e transgender patients on testosterone therapy should have results assessed using the male reference range. Eqyf-mj-iwbua e transgender patients on hormone-modul ating therapy clinical judgment is advisedfor assessment. [facility] GENERAL CHEMISTRY Estimated GFR for Adults 138 mL/min/1.7 3m 07/26 16:24 :29 Interpretive Data: Changed to CKD-EPI 2020 on 2020. [facility] GENERAL CHEMISTRY Estimated GFR for peds Not calculated 07/26 16:24 :29 Interpretive Data: The estimated GFR was calculated using the Teddy barker Dorado equation (2009) . Reference: Pediatric GFR calculator at [employer] Website. [facility] HEMATOLOGY PROFILES WBC 2.41 x10(9)/L 3.50 - 10.50 07/26 16:24 :29 [facility] HEMATOLOGY PROFILES RBC 3.42 x10(12)/L 4.32 - 5.72 07/26 16:24 :29 [facility] HEMATOLOGY PROFILES HGB 10.2 g/dL 13.5 - 17.5 07/26 16:24 :29 Interpretive Data: Ryelfl-yo-vxk e transgender patients on testosterone therapy should have results assessed using the male reference range. Pzmb-sp-zwhgr e transgender patients on hormone-modul ating therapy clinical judgment is advisedfor assessment. [facility] HEMATOLOGY PROFILES HCT 31.1 % 38.8 - 50.0 07/26 16:24 :29 Interpretive Data: Kbhurj-mx-sgq e transgender patients on testosterone therapy should have results assessed using the male reference range. Nmsu-dq-buypu e transgender patients on hormone-modul ating therapy clinical judgment is advisedfor assessment. [facility] HEMATOLOGY PROFILES MCV 90.9 fL 81.2 - 95.1 07/26 16:24 :29 [facility] HEMATOLOGY PROFILES MCH 29.8 pg 26.0 - 33.0 07/26 16:24 :29 [facility] HEMATOLOGY PROFILES MCHC 32.8 g/dL 32.0 - 36.0 07/26 16:24 :29 [facility] HEMATOLOGY PROFILES RDW CV 15.8 % 11.8 - 15.6 07/26 16:24 :29 [facility] HEMATOLOGY PROFILES RDW SD 52.8 fL 35.1 - 43.9 07/26 16:24 :29 [facility] HEMATOLOGY PROFILES PLT 149 x10(9)/L 150 - 450 07/26 16:24 :29 [facility] HEMATOLOGY PROFILES MPV 9.2 8.0 - 12.0 07/26 16:24 :29 [facility] HEMATOLOGY PROFILES Neuts Manual 82.0 % 07/26 16:24 :29 [facility] HEMATOLOGY PROFILES Lymphocytes Manual 12.0 % 07/26 16:24 :29 [facility] HEMATOLOGY PROFILES Eosinophils Manual 3.0 % 07/26 16:24 :29 [facility] HEMATOLOGY PROFILES Basophils Manual 3.0 % 07/26 16:24 :29 [facility] HEMATOLOGY PROFILES Absolute Neutrophils Manual 1.98 x10(9)/L 1.70 - 7.00 07/26 16:24 :29 [facility] HEMATOLOGY PROFILES Abs Lymphocytes Manual 0.29 x10(9)/L 0.90 - 2.90 07/26 16:24 :29 [facility] HEMATOLOGY PROFILES Abs Eosinophils Manual 0.07 x10(9)/L 0.05 - 0.50 07/26 16:24 :29 [facility] HEMATOLOGY PROFILES Abs Basophils Manual 0.07 x10(9)/L 0.00 - 0.30 07/26 16:24 :29 [facility] HEMATOLOGY PROFILES Morphology Present *NA* (07/26/24 10:24 AM) 07/26 16:24 :29 [facility] HEMATOLOGY PROFILES Platelet Estimate Decreased *NA* (07/26/24 10:24 AM) 07/26 16:24 :29 [facility] HEMATOLOGY PROFILES Elliptocytes (Ovalocytes) 1+ (10-25%) *NA* (07/26/24 10:24 AM) 07/26 16:24 :29 [facility] HEMATOLOGY PROFILES Schistocytes 1+ (Rare-3%) *NA* (07/26/24 10:24 AM) 07/26 16:24 :29 [facility] HEMATOLOGY PROFILES Teardrop 1+ (3-6%) *NA* (07/26/24 10:24 AM) 07/26 16:24 :29 [facility] Cytology Non-BEAD WRAPPER Report Cytology Non-BEAD WRAPPER Report CYTOLOGY MEDICAL REPORT Patient Name: EVELINA REGALADO Specimen Number: [id number] Patient Collection Date: 07/26/2024 Submitting Physician: Miguelina Horne M.D. Signout Date: 07/26/2024 Other Physician( s): MD Heike Maldonado MD ======== FINAL DIAGNOSIS CEREBROSPI NAL FLUID: Negative for Acute Leukemia Please see previous material ([id number] , [id number], [id number], [id number]) Diagnosis Comment Microscopi c descriptio n: Review [...] report (if any) were determined by the [facility] Department of Pathology. They have not been [...] laboratory testing. 07/26 12:49 :00 Missing Attachment [id number].PDF can be viewed in source system [facility] GENERAL CHEMISTRY ALT-SGPT 130 U/L 10 - 50 07/24 11:28 :00 [facility] GENERAL CHEMISTRY Albumin 3.5 g/dL 3.4 - 5.0 07/24 11:28 :00 [facility] GENERAL CHEMISTRY Alkaline Phosphatase 88 U/L 40 - 129 07/24 11:28 :00 [facility] CHEMISTRY AST-SGOT 42 U/L 07/24 11:28 :00 [facility] CHEMISTRY Anion gap 12 mmol/L 0 - 20 07/24 11:28 :00 [facility] CHEMISTRY Sodium 141 mmol/L 136 - 145 07/24 11:28 :00 [facility] CHEMISTRY Glucose Lvl 103 mg/dL 70 - 139 07/24 11:28 :00 [facility] CHEMISTRY Chloride 107 mmol/L 98 - 107 07/24 11:28 :00 [facility] CHEMISTRY BUN 12 mg/dL 6 - 20 07/24 11:28 :00 [facility] CHEMISTRY Calcium 9.9 mg/dL 8.3 - 10.6 07/24 11:28 :00 [facility] CHEMISTRY Total Protein 5.9 g/dL 5.7 - 8.2 07/24 11:28 :00 [facility] GENERAL CHEMISTRY CO2 26 mmol/L 20 - 31 07/24 11:28 :00 [facility] GENERAL CHEMISTRY T Bili 0.81 mg/dL 0.30 - 1.20 07/24 11:28 :00 [facility] GENERAL CHEMISTRY Potassium 4.0 mmol/L 3.5 - 5.1 07/24 11:28 :00 [facility] CHEMISTRY Estimated GFR for peds Not calculated 07/24 11:28 :00 Interpretive Data: The estimated GFR was calculated using the Teddy barker Dorado equation (2009) . Reference: Pediatric GFR calculator at [employer] Website. [facility] GENERAL CHEMISTRY Creatinine, standardized 0.5 mg/dL 0.7 - 1.2 07/24 11:28 :00 Interpretive Data: Dfdayn-rt-ggl e transgender patients on testosterone therapy should have results assessed using the male reference range. Ogeq-np-lsfuz e transgender patients on hormone-modul ating therapy clinical judgment is advisedfor assessment. [facility] HEMATOLOGY PROFILES RBC 3.21 x10(12)/L 4.32 - 5.72 07/24 11:28 :00 [facility] HEMATOLOGY PROFILES WBC 5.80 x10(9)/L 3.50 - 10.50 07/24 11:28 :00 [facility] HEMATOLOGY PROFILES HCT 30.3 % 38.8 - 50.0 07/24 11:28 :00 Interpretive Data: Lxkhxs-mi-bew e transgender patients on testosterone therapy should have results assessed using the male reference range. Vsvx-at-itzat e transgender patients on hormone-modul ating therapy clinical judgment is advisedfor assessment. [facility] HEMATOLOGY PROFILES HGB 9.8 g/dL 13.5 - 17.5 07/24 11:28 :00 Interpretive Data: Zgcdly-nv-djg e transgender patients on testosterone therapy should have results assessed using the male reference range. Hgtz-sf-kobpm e transgender patients on hormone-modul ating therapy clinical judgment is advisedfor assessment. [facility] HEMATOLOGY PROFILES MCHC 32.3 g/dL 32.0 - 36.0 07/24 11:28 :00 [facility] HEMATOLOGY PROFILES MCH 30.5 pg 26.0 - 33.0 07/24 11:28 :00 [facility] HEMATOLOGY PROFILES MCV 94.4 fL 81.2 - 95.1 07/24 11:28 :00 [facility] HEMATOLOGY PROFILES RDW CV 15.4 % 11.8 - 15.6 07/24 11:28 :00 [facility] HEMATOLOGY PROFILES MPV 10.1 8.0 - 12.0 07/24 11:28 :00 [facility] HEMATOLOGY PROFILES PLT 195 x10(9)/L 150 - 450 07/24 11:28 :00 [facility] HEMATOLOGY PROFILES RDW SD 53.6 fL 35.1 - 43.9 07/24 11:28 :00 [facility] URINALYSIS UA PROTEIN Negative mg/dL 07/23 20:50 :00 [facility] URINALYSIS UA NITRITE Negative (07/23/24 2:50 PM) 07/23 20:50 :00 [facility] URINALYSIS BILIRUBIN Negative (07/23/24 2:50 PM) 07/23 20:50 :00 [facility] URINALYSIS UA UROBILINOGEN Negative Yumi unit/dL 0.2 - 1.0 07/23 20:50 :00 [facility] URINALYSIS UA BLOOD Negative 14 (07/23/24 2:50 PM) 07/23 20:50 :00 Result Comment: A hemoglobin concentration of 0.015-0.062 mg/dL is approximately equivalent to 5 -20 intact red blood cells per microliter. [facility] URINALYSIS UA LEUKOCYTES Negative (07/23/24 2:50 PM) 07/23 20:50 :00 [facility] URINALYSIS UA KETONES Negative mg/dL 07/23 20:50 :00 [facility] URINALYSIS COLOR Yellow (07/23/24 2:50 PM) 07/23 20:50 :00 [facility] URINALYSIS SPECIFIC GRAVITY 1.015 1.006 - 1.030 07/23 20:50 :00 [facility] URINALYSIS UA PH 8 *NA* (07/23/24 2:50 PM) 4.5 - 8.0 07/23 20:50 :00 [facility] URINALYSIS UA GLUCOSE Negative mg/dL 07/23 20:50 :00 [facility] URINALYSIS CLARITY Slightly Cloudy (07/23/24 2:50 PM) 07/23 20:50 :00 [facility] GENERAL CHEMISTRY Estimated GFR for peds Not calculated 07/23 08:28 :00 Interpretive Data: The estimated GFR was calculated using the B lucero Dorado equation (2009) . Reference: Pediatric GFR calculator at [employer] Website. [facility] GENERAL CHEMISTRY Total Protein 5.9 g/dL 5.7 - 8.2 07/23 08:28 :00 [facility] GENERAL CHEMISTRY T Bili 0.50 mg/dL 0.30 - 1.20 07/23 08:28 :00 [facility] GENERAL CHEMISTRY Anion gap 10 mmol/L 0 - 20 07/23 08:28 :00 [facility] GENERAL CHEMISTRY Creatinine, standardized 0.5 mg/dL 0.7 - 1.2 07/23 08:28 :00 Interpretive Data: Fniyzi-df-wtb e transgender patients on testosterone therapy should have results assessed using the male reference range. Uyvy-pz-oxpiv e transgender patients on hormone-modul ating therapy clinical judgment is advisedfor assessment. [facility] GENERAL CHEMISTRY Estimated GFR for Adults 147 mL/min/1.7 3m 07/23 08:28 :00 Interpretive Data: Changed to CKD-EPI 2020 on 2020. [facility] GENERAL CHEMISTRY BUN 5 mg/dL 6 - 20 07/23 08:28 :00 [facility] GENERAL CHEMISTRY ALT-SGPT 175 U/L 10 - 50 07/23 08:28 :00 [facility] CHEMISTRY Alkaline Phosphatase 101 U/L 40 - 129 07/23 08:28 :00 [facility] GENERAL CHEMISTRY Calcium 9.5 mg/dL 8.3 - 10.6 07/23 08:28 :00 [facility] GENERAL CHEMISTRY Potassium 3.8 mmol/L 3.5 - 5.1 07/23 08:28 :00 [facility] GENERAL CHEMISTRY Sodium 142 mmol/L 136 - 145 07/23 08:28 :00 [facility] GENERAL CHEMISTRY Chloride 103 mmol/L 98 - 107 07/23 08:28 :00 [facility] GENERAL CHEMISTRY Glucose Lvl 125 mg/dL 70 - 139 07/23 08:28 :00 [facility] GENERAL CHEMISTRY CO2 33 mmol/L 20 - 31 07/23 08:28 :00 [facility] GENERAL CHEMISTRY Albumin 3.6 g/dL 3.4 - 5.0 07/23 08:28 :00 [facility] GENERAL CHEMISTRY AST-SGOT 71 U/L 07/23 08:28 :00 [facility] HEMATOLOGY PROFILES PLT 230 x10(9)/L 150 - 450 07/23 08:28 :00 [facility] HEMATOLOGY PROFILES MPV 9.8 8.0 - 12.0 07/23 08:28 :00 [facility] HEMATOLOGY PROFILES RDW CV 15.4 % 11.8 - 15.6 07/23 08:28 :00 [facility] HEMATOLOGY PROFILES RDW SD 51.8 fL 35.1 - 43.9 07/23 08:28 :00 [facility] HEMATOLOGY PROFILES MCH 29.9 pg 26.0 - 33.0 07/23 08:28 :00 [facility] HEMATOLOGY PROFILES MCHC 32.5 g/dL 32.0 - 36.0 07/23 08:28 :00 [facility] HEMATOLOGY PROFILES HCT 31.4 % 38.8 - 50.0 07/23 08:28 :00 Interpretive Data: Bnsppm-ao-pcv e transgender patients on testosterone therapy should have results assessed using the male reference range. Rqrr-dr-jhysh e transgender patients on hormone-modul ating therapy clinical judgment is advisedfor assessment. [facility] HEMATOLOGY PROFILES MCV 92.1 fL 81.2 - 95.1 07/23 08:28 :00 [facility] HEMATOLOGY PROFILES HGB 10.2 g/dL 13.5 - 17.5 07/23 08:28 :00 Interpretive Data: Iyszgq-qp-uws e transgender patients on testosterone therapy should have results assessed using the male reference range. Mlpx-bo-gucvi e transgender patients on hormone-modul ating therapy clinical judgment is advisedfor assessment. [facility] HEMATOLOGY PROFILES WBC 5.74 x10(9)/L 3.50 - 10.50 07/23 08:28 :00 [facility] HEMATOLOGY PROFILES RBC 3.41 x10(12)/L 4.32 - 5.72 07/23 08:28 :00 [facility] HEMATOLOGY PROFILES Abs Eosinophils 0.00 x10(9)/L 0.05 - 0.50 07/23 08:28 :00 [facility] HEMATOLOGY PROFILES Abs Lymphocytes 0.29 x10(9)/L 0.90 - 2.90 07/23 08:28 :00 [facility] HEMATOLOGY PROFILES Abs Monocytes 0.18 x10(9)/L 0.30 - 0.90 07/23 08:28 :00 [facility] HEMATOLOGY PROFILES % Eosinophils 0.0 % 07/23 08:28 :00 [facility] HEMATOLOGY PROFILES % Basophils 0.0 % 07/23 08:28 :00 [facility] HEMATOLOGY PROFILES % Lymphocytes 5.1 % 07/23 08:28 :00 [facility] HEMATOLOGY PROFILES % Monocytes 3.1 % 07/23 08:28 :00 [facility] HEMATOLOGY PROFILES % Immature Granulocytes 1.20 % 0.02 - 0.42 07/23 08:28 :00 [facility] HEMATOLOGY PROFILES Absolute Granulocytes 5.20 x10(9)/L 1.70 - 7.00 07/23 08:28 :00 [facility] HEMATOLOGY PROFILES % Nucleated RBCs 0.0 % 07/23 08:28 :00 [facility] HEMATOLOGY PROFILES Absolute Nucleated RBCs 0.0 x10(9)/L 0.0 - 0.0 07/23 08:28 :00 Interpretive Data: Normal values not established in patients less than 18 years old. [facility] HEMATOLOGY PROFILES % Neutrophils 90.6 % 07/23 08:28 :00 [facility] HEMATOLOGY PROFILES Abs Immature Granulocytes 0.07 x10(9)/L 0.00 - 0.03 07/23 08:28 :00 [facility] HEMATOLOGY PROFILES Abs Basophils 0.00 x10(9)/L 0.00 - 0.30 07/23 08:28 :00 [facility] URINALYSIS UA UROBILINOGEN Negative Yumi unit/dL 0.2 - 1.0 07/23 08:28 :00 [facility] URINALYSIS UA BLOOD Negative 15 (07/23/24 2:28 AM) 07/23 08:28 :00 Result Comment: A hemoglobin concentration of 0.015-0.062 mg/dL is approximately equivalent to 5 -20 intact red blood cells per microliter. [facility] URINALYSIS UA LEUKOCYTES Negative (07/23/24 2:28 AM) 07/23 08:28 :00 [facility] URINALYSIS UA NITRITE Negative (07/23/24 2:28 AM) 07/23 08:28 :00 [facility] URINALYSIS UA PROTEIN Negative mg/dL 07/23 08:28 :00 [facility] URINALYSIS SPECIFIC GRAVITY 1.005 1.006 - 1.030 07/23 08:28 :00 [facility] URINALYSIS UA PH 9 *NA* (07/23/24 2:28 AM) 4.5 - 8.0 07/23 08:28 :00 [facility] URINALYSIS UA GLUCOSE Negative mg/dL 07/23 08:28 :00 [facility] URINALYSIS UA KETONES Negative mg/dL 07/23 08:28 :00 [facility] URINALYSIS BILIRUBIN Negative (07/23/24 2:28 AM) 07/23 08:28 :00 [facility] URINALYSIS CLARITY Clear (07/23/24 2:28 AM) 07/23 08:28 :00 [facility] URINALYSIS COLOR Straw (07/23/24 2:28 AM) 07/23 08:28 :00 [facility] THERAPEUTI C DRUGS Methotrexate Lvl 0.07 umol/L 07/23 02:38 :00 [facility] URINALYSIS UA LEUKOCYTES Negative (07/22/24 8:38 PM) 07/23 02:38 :00 [facility] URINALYSIS UA PROTEIN Negative mg/dL 07/23 02:38 :00 [facility] URINALYSIS UA NITRITE Negative (07/22/24 8:38 PM) 07/23 02:38 :00 [facility] URINALYSIS UA KETONES Negative mg/dL 07/23 02:38 :00 [facility] URINALYSIS UA GLUCOSE Negative mg/dL 07/23 02:38 :00 [facility] URINALYSIS UA UROBILINOGEN Negative Yumi unit/dL 0.2 - 1.0 07/23 02:38 :00 [facility] URINALYSIS BILIRUBIN Negative (07/22/24 8:38 PM) 07/23 02:38 :00 [facility] URINALYSIS UA BLOOD Negative 16 (07/22/24 8:38 PM) 07/23 02:38 :00 Result Comment: A hemoglobin concentration of 0.015-0.062 mg/dL is approximately equivalent to 5 -20 intact red blood cells per microliter. [facility] URINALYSIS CLARITY Clear (07/22/24 8:38 PM) 07/23 02:38 :00 [facility] URINALYSIS SPECIFIC GRAVITY 1.005 1.006 - 1.030 07/23 02:38 :00 [facility] URINALYSIS COLOR Colorless (07/22/24 8:38 PM) 07/23 02:38 :00 [facility] URINALYSIS UA PH 9 *NA* (07/22/24 8:38 PM) 4.5 - 8.0 07/23 02:38 :00 [facility] URINALYSIS UA PH 9 *NA* (07/22/24 2:12 PM) 4.5 - 8.0 07/22 20:12 :00 [facility] URINALYSIS SPECIFIC GRAVITY 1.006 1.006 - 1.030 07/22 20:12 :00 [facility] URINALYSIS COLOR Straw (07/22/24 2:12 PM) 07/22 20:12 :00 [facility] URINALYSIS CLARITY Clear (07/22/24 2:12 PM) 07/22 20:12 :00 [facility] URINALYSIS UA PROTEIN Negative mg/dL 07/22 20:12 :00 [facility] URINALYSIS UA NITRITE Negative (07/22/24 2:12 PM) 07/22 20:12 :00 [facility] URINALYSIS UA LEUKOCYTES Negative (07/22/24 2:12 PM) 07/22 20:12 :00 [facility] URINALYSIS UA BLOOD Negative 17 (07/22/24 2:12 PM) 07/22 20:12 :00 Result Comment: A hemoglobin concentration of 0.015-0.062 mg/dL is approximately equivalent to 5 -20 intact red blood cells per microliter. [facility] URINALYSIS UA UROBILINOGEN Negative Yumi unit/dL 0.2 - 1.0 07/22 20:12 :00 [facility] URINALYSIS BILIRUBIN Negative (07/22/24 2:12 PM) 07/22 20:12 :00 [facility] URINALYSIS UA KETONES Negative mg/dL 07/22 20:12 :00 [facility] URINALYSIS UA GLUCOSE Negative mg/dL 07/22 20:12 :00 [facility] GENERAL CHEMISTRY Estimated GFR for peds Not calculated 07/22 08:36 :00 Interpretive Data: The estimated GFR was calculated using the B lucero Dorado equation (2009) . Reference: Pediatric GFR calculator at [employer] Website. [facility] CHEMISTRY Estimated GFR for Adults 148 mL/min/1.7 3m 07/22 08:36 :00 Interpretive Data: Changed to CKD-EPI 2020 on 2020. [facility] GENERAL CHEMISTRY Creatinine, standardized 0.5 mg/dL 0.7 - 1.2 07/22 08:36 :00 Interpretive Data: Aogrme-si-qqu e transgender patients on testosterone therapy should have results assessed using the male reference range. Vpir-qd-ayubg e transgender patients on hormone-modul ating therapy clinical judgment is advisedfor assessment. [facility] GENERAL CHEMISTRY Total Protein 5.4 g/dL 5.7 - 8.2 07/22 08:36 :00 [facility] GENERAL CHEMISTRY T Bili 0.39 mg/dL 0.30 - 1.20 07/22 08:36 :00 [facility] GENERAL CHEMISTRY Anion gap 6 mmol/L 0 - 20 07/22 08:36 :00 [facility] GENERAL CHEMISTRY CO2 35 mmol/L 20 - 31 07/22 08:36 :00 [facility] GENERAL CHEMISTRY Potassium 3.4 mmol/L 3.5 - 5.1 07/22 08:36 :00 [facility] GENERAL CHEMISTRY Sodium 143 mmol/L 136 - 145 07/22 08:36 :00 [facility] GENERAL CHEMISTRY Chloride 105 mmol/L 98 - 107 07/22 08:36 :00 [facility] GENERAL CHEMISTRY Glucose Lvl 106 mg/dL 70 - 139 07/22 08:36 :00 [facility] GENERAL CHEMISTRY Calcium 8.7 mg/dL 8.3 - 10.6 07/22 08:36 :00 [facility] GENERAL CHEMISTRY BUN <5 mg/dL 6 - 20 07/22 08:36 :00 [facility] GENERAL CHEMISTRY ALT-SGPT 185 U/L 10 - 50 07/22 08:36 :00 [facility] GENERAL CHEMISTRY Alkaline Phosphatase 97 U/L 40 - 129 07/22 08:36 :00 [facility] GENERAL CHEMISTRY Albumin 3.3 g/dL 3.4 - 5.0 07/22 08:36 :00 [facility] GENERAL CHEMISTRY AST-SGOT 89 U/L 07/22 08:36 :00 [facility] GENERAL CHEMISTRY Magnesium 1.50 mg/dL 1.60 - 2.60 07/22 08:36 :00 [facility] GENERAL CHEMISTRY Phosphorus 4.0 mg/dL 2.4 - 5.1 07/22 08:36 :00 [facility] HEMATOLOGY PROFILES RDW CV 16.2 % 11.8 - 15.6 07/22 08:36 :00 [facility] HEMATOLOGY PROFILES MCHC 32.0 g/dL 32.0 - 36.0 07/22 08:36 :00 [facility] HEMATOLOGY PROFILES MPV 10.1 8.0 - 12.0 07/22 08:36 :00 [facility] HEMATOLOGY PROFILES PLT 205 x10(9)/L 150 - 450 07/22 08:36 :00 [facility] HEMATOLOGY PROFILES RDW SD 55.7 fL 35.1 - 43.9 07/22 08:36 :00 [facility] HEMATOLOGY PROFILES HGB 9.8 g/dL 13.5 - 17.5 07/22 08:36 :00 Interpretive Data: Iqxxha-du-jww e transgender patients on testosterone therapy should have results assessed using the male reference range. Epqm-fw-oacmk e transgender patients on hormone-modul ating therapy clinical judgment is advisedfor assessment. [facility] HEMATOLOGY PROFILES RBC 3.26 x10(12)/L 4.32 - 5.72 07/22 08:36 :00 [facility] HEMATOLOGY PROFILES WBC 3.34 x10(9)/L 3.50 - 10.50 07/22 08:36 :00 [facility] HEMATOLOGY PROFILES MCH 30.1 pg 26.0 - 33.0 07/22 08:36 :00 [facility] HEMATOLOGY PROFILES MCV 93.9 fL 81.2 - 95.1 07/22 08:36 :00 [facility] HEMATOLOGY PROFILES HCT 30.6 % 38.8 - 50.0 07/22 08:36 :00 Interpretive Data: Mytcbc-rt-vlj e transgender patients on testosterone therapy should have results assessed using the male reference range. Rnda-bm-qwteg e transgender patients on hormone-modul ating therapy clinical judgment is advisedfor assessment. [facility] HEMATOLOGY PROFILES Abs Basophils 0.02 x10(9)/L 0.00 - 0.30 07/22 08:36 :00 [facility] HEMATOLOGY PROFILES Abs Eosinophils 0.00 x10(9)/L 0.05 - 0.50 07/22 08:36 :00 [facility] HEMATOLOGY PROFILES Abs Monocytes 0.60 x10(9)/L 0.30 - 0.90 07/22 08:36 :00 [facility] HEMATOLOGY PROFILES Abs Immature Granulocytes 0.02 x10(9)/L 0.00 - 0.03 07/22 08:36 :00 [facility] HEMATOLOGY PROFILES % Immature Granulocytes 0.60 % 0.02 - 0.42 07/22 08:36 :00 [facility] HEMATOLOGY PROFILES % Basophils 0.6 % 07/22 08:36 :00 [facility] HEMATOLOGY PROFILES % Eosinophils 0.0 % 07/22 08:36 :00 [facility] HEMATOLOGY PROFILES % Monocytes 18.0 % 07/22 08:36 :00 [facility] HEMATOLOGY PROFILES Abs Lymphocytes 0.60 x10(9)/L 0.90 - 2.90 07/22 08:36 :00 [facility] HEMATOLOGY PROFILES Absolute Granulocytes 2.10 x10(9)/L 1.70 - 7.00 07/22 08:36 :00 [facility] HEMATOLOGY PROFILES % Neutrophils 62.8 % 07/22 08:36 :00 [facility] HEMATOLOGY PROFILES Absolute Nucleated RBCs 0.0 x10(9)/L 0.0 - 0.0 07/22 08:36 :00 Interpretive Data: Normal values not established in patients less than 18 years old. [facility] HEMATOLOGY PROFILES % Nucleated RBCs 0.0 % 07/22 08:36 :00 [facility] HEMATOLOGY PROFILES % Lymphocytes 18.0 % 07/22 08:36 :00 [facility] THERAPEUTI C DRUGS Methotrexate Lvl 0.18 umol/L 07/22 03:10 :00 [facility] URINALYSIS UA Epithelial Cells Rare /lpf 07/22 03:10 :00 [facility] URINALYSIS UA Amorphous Crystals Present *NA* (07/21/24 9:10 PM) 07/22 03:10 :00 [facility] URINALYSIS RBC None Seen /hpf 0 - 2 07/22 03:10 :00 [facility] URINALYSIS WBC 0-3 /hpf 0 - 3 07/22 03:10 :00 [facility] GENERAL CHEMISTRY Estimated GFR for peds Not calculated 07/21 15:03 :00 Interpretive Data: The estimated GFR was calculated using the B [employer] Dorado equation (2009) . Reference: Pediatric GFR calculator at [employer] Website. [facility] GENERAL CHEMISTRY Estimated GFR for Adults 151 mL/min/1.7 3m 07/21 15:03 :00 Interpretive Data: Changed to CKD-EPI 2020 on 2020. [facility] GENERAL CHEMISTRY ALT-SGPT 207 U/L 10 - 50 07/21 15:03 :00 [facility] GENERAL CHEMISTRY BUN <5 mg/dL 6 - 20 07/21 15:03 :00 [facility] GENERAL CHEMISTRY Albumin 3.4 g/dL 3.4 - 5.0 07/21 15:03 :00 [facility] GENERAL CHEMISTRY Alkaline Phosphatase 105 U/L 40 - 129 07/21 15:03 :00 [facility] GENERAL CHEMISTRY Calcium 9.2 mg/dL 8.3 - 10.6 07/21 15:03 :00 [facility] GENERAL CHEMISTRY AST-SGOT 141 U/L 07/21 15:03 :00 [facility] GENERAL CHEMISTRY Creatinine, standardized 0.4 mg/dL 0.7 - 1.2 07/21 15:03 :00 Interpretive Data: Fjsgyv-vc-ctg e transgender patients on testosterone therapy should have results assessed using the male reference range. Ceal-dn-gesbn e transgender patients on hormone-modul ating therapy clinical judgment is advisedfor assessment. [facility] GENERAL CHEMISTRY T Bili 0.37 mg/dL 0.30 - 1.20 07/21 15:03 :00 [facility] GENERAL CHEMISTRY Total Protein 5.6 g/dL 5.7 - 8.2 07/21 15:03 :00 [facility] GENERAL CHEMISTRY Sodium 145 mmol/L 136 - 145 07/21 15:03 :00 [facility] GENERAL CHEMISTRY Potassium 2.9 mmol/L 3.5 - 5.1 07/21 15:03 :00 [facility] GENERAL CHEMISTRY Glucose Lvl 124 mg/dL 70 - 139 07/21 15:03 :00 [facility] GENERAL CHEMISTRY Chloride 105 mmol/L 98 - 107 07/21 15:03 :00 [facility] GENERAL CHEMISTRY CO2 34 mmol/L 20 - 31 07/21 15:03 :00 [facility] GENERAL CHEMISTRY Anion gap 9 mmol/L 0 - 20 07/21 15:03 :00 [facility] HEMATOLOGY PROFILES HCT 29.1 % 38.8 - 50.0 07/21 15:03 :00 Interpretive Data: Llhjdf-xb-cqo e transgender patients on testosterone therapy should have results assessed using the male reference range. Miey-pd-jrbvm e transgender patients on hormone-modul ating therapy clinical judgment is advisedfor assessment. [facility] HEMATOLOGY PROFILES HGB 9.4 g/dL 13.5 - 17.5 07/21 15:03 :00 Interpretive Data: Wbnfxt-ui-smj e transgender patients on testosterone therapy should have results assessed using the male reference range. Nqdl-mc-lmqtp e transgender patients on hormone-modul ating therapy clinical judgment is advisedfor assessment. [facility] HEMATOLOGY PROFILES RBC 3.05 x10(12)/L 4.32 - 5.72 07/21 15:03 :00 [facility] HEMATOLOGY PROFILES WBC 4.53 x10(9)/L 3.50 - 10.50 07/21 15:03 :00 [facility] HEMATOLOGY PROFILES MCV 95.4 fL 81.2 - 95.1 07/21 15:03 :00 [facility] HEMATOLOGY PROFILES RDW CV 16.3 % 11.8 - 15.6 07/21 15:03 :00 [facility] HEMATOLOGY PROFILES MCHC 32.3 g/dL 32.0 - 36.0 07/21 15:03 :00 [facility] HEMATOLOGY PROFILES MCH 30.8 pg 26.0 - 33.0 07/21 15:03 :00 [facility] HEMATOLOGY PROFILES PLT 189 x10(9)/L 150 - 450 07/21 15:03 :00 [facility] HEMATOLOGY PROFILES RDW SD 57.1 fL 35.1 - 43.9 07/21 15:03 :00 [facility] HEMATOLOGY PROFILES MPV 9.8 8.0 - 12.0 07/21 15:03 :00 [facility] HEMATOLOGY PROFILES Absolute Nucleated RBCs 0.0 x10(9)/L 0.0 - 0.0 07/21 15:03 :00 Interpretive Data: Normal values not established in patients less than 18 years old. [facility] HEMATOLOGY PROFILES % Nucleated RBCs 0.0 % 07/21 15:03 :00 [facility] HEMATOLOGY PROFILES % Monocytes 21.0 % 07/21 15:03 :00 [facility] HEMATOLOGY PROFILES % Lymphocytes 13.0 % 07/21 15:03 :00 [facility] HEMATOLOGY PROFILES % Neutrophils 64.9 % 07/21 15:03 :00 [facility] HEMATOLOGY PROFILES % Immature Granulocytes 0.70 % 0.02 - 0.42 07/21 15:03 :00 [facility] HEMATOLOGY PROFILES % Basophils 0.2 % 07/21 15:03 :00 [facility] HEMATOLOGY PROFILES % Eosinophils 0.2 % 07/21 15:03 :00 [facility] HEMATOLOGY PROFILES Abs Lymphocytes 0.59 x10(9)/L 0.90 - 2.90 07/21 15:03 :00 [facility] HEMATOLOGY PROFILES Absolute Granulocytes 2.94 x10(9)/L 1.70 - 7.00 07/21 15:03 :00 [facility] HEMATOLOGY PROFILES Abs Basophils 0.01 x10(9)/L 0.00 - 0.30 07/21 15:03 :00 [facility] HEMATOLOGY PROFILES Abs Eosinophils 0.01 x10(9)/L 0.05 - 0.50 07/21 15:03 :00 [facility] HEMATOLOGY PROFILES Abs Monocytes 0.95 x10(9)/L 0.30 - 0.90 07/21 15:03 :00 [facility] HEMATOLOGY PROFILES Abs Immature Granulocytes 0.03 x10(9)/L 0.00 - 0.03 07/21 15:03 :00 [facility] THERAPEUTI C DRUGS Methotrexate Lvl 0.97 umol/L 07/21 10:10 :00 [facility] URINALYSIS RBC None Seen /hpf 0 - 2 07/21 10:10 :00 [facility] URINALYSIS UA Epithelial Cells Few /lpf 07/21 10:10 :00 [facility] URINALYSIS WBC 0-3 /hpf 0 - 3 07/21 10:10 :00 [facility] THERAPEUTI C DRUGS Methotrexate Lvl 7.69 umol/L 07/21 05:40 :00 Result Comment: Critical Result(s) Called at: 01:02:01 07/21/2024. Called to and read back by:Supriya Mays RN XG [facility] BODY FLUIDS/CSF CSF, RBC 1 /mcL 07/20 18:50 :00 Interpretive Data: Variation from manual counting may exceed 50% and approach 15-20% using automated method. [facility] BODY FLUIDS/CSF CSF, WBC 0 /mcL 07/20 18:50 :00 Interpretive Data: Variation from manual counting may exceed 50% and approach 15-20% using automated method. Pleocytosis in Adults (increased WBC count) may be graded: Mild: 5-50 WBC/uL Moderate: 51-200 WBC/uL Severe: > 200 WBC/uL CSF may have > 60% neutrophils in high-risk neonates without meningitis [facility] BODY FLUIDS/CSF CSF, Spec Appear Clear (07/20/24 1:50 PM) 07/20 18:50 :00 [facility] BODY FLUIDS/CSF CSF, Color Colorless (07/20/24 1:50 PM) 07/20 18:50 :00 [facility] BODY FLUIDS/CSF CSF Cutoff Values See Comment [...] would require invasive sampling of normal people. [facility] BODY FLUIDS/CSF CSF, Glucose 116 mg/dL 40 - 70 07/20 18:50 :00 [facility] Cytology Non-BEAD WRAPPER Report Cytology Non-BEAD WRAPPER Report CYTOLOGY MEDICAL REPORT Patient Name: EVELINA REGALADO Specimen Number: [id number] Patient Collection Date: 07/20/2024 Submitting Physician: Heike Barrientos MD Signout Date: 07/22/2024 Other Physician( s): Luis Badillo MD ======== FINAL DIAGNOSIS CEREBROSPI NAL FLUID: Negative for Acute Leukemia. Please see previous material ([id number], [id number], [id number], [id number]) Diagnosis Comment Microscopi c descriptio n: Review [...] report (if any) were determined by the [facility] Department of Pathology. They have not been [...] laboratory testing. 07/20 14:18 :00 Missing Attachment [id number] can be viewed in source system [facility] GENERAL CHEMISTRY Estimated GFR for Adults 140 mL/min/1.7 3m 07/20 10:35 :00 Interpretive Data: Changed to CKD-EPI 2020 on 2020. [facility] GENERAL CHEMISTRY Magnesium 1.67 mg/dL 1.60 - 2.60 07/20 10:35 :00 [facility] GENERAL CHEMISTRY Phosphorus 2.7 mg/dL 2.4 - 5.1 07/20 10:35 :00 [facility] GENERAL CHEMISTRY Uric Acid 7.0 mg/dL 3.7 - 9.2 07/20 10:35 :00 [facility] HEMATOLOGY PROFILES % Nucleated RBCs 0.0 % 07/20 10:35 :00 [facility] HEMATOLOGY PROFILES Absolute Nucleated RBCs 0.0 x10(9)/L 0.0 - 0.0 07/20 10:35 :00 Interpretive Data: Normal values not established in patients less than 18 years old. [facility] HEMATOLOGY PROFILES % Neutrophils 90.5 % 07/20 10:35 :00 [facility] HEMATOLOGY PROFILES % Monocytes 1.6 % 07/20 10:35 :00 [facility] HEMATOLOGY PROFILES % Lymphocytes 6.2 % 07/20 10:35 :00 [facility] HEMATOLOGY PROFILES % Basophils 0.3 % 07/20 10:35 :00 [facility] HEMATOLOGY PROFILES % Eosinophils 0.0 % 07/20 10:35 :00 [facility] HEMATOLOGY PROFILES % Immature Granulocytes 1.40 % 0.02 - 0.42 07/20 10:35 :00 [facility] HEMATOLOGY PROFILES Abs Lymphocytes 0.39 x10(9)/L 0.90 - 2.90 07/20 10:35 :00 [facility] HEMATOLOGY PROFILES Absolute Granulocytes 5.73 x10(9)/L 1.70 - 7.00 07/20 10:35 :00 [facility] HEMATOLOGY PROFILES Abs Eosinophils 0.00 x10(9)/L 0.05 - 0.50 07/20 10:35 :00 [facility] HEMATOLOGY PROFILES Abs Monocytes 0.10 x10(9)/L 0.30 - 0.90 07/20 10:35 :00 [facility] HEMATOLOGY PROFILES Abs Immature Granulocytes 0.09 x10(9)/L 0.00 - 0.03 07/20 10:35 :00 [facility] HEMATOLOGY PROFILES Abs Basophils 0.02 x10(9)/L 0.00 - 0.30 07/20 10:35 :00 [facility] URINALYSIS Urine Collection Method Clean Catch UR (07/20/24 5:35 AM) 07/20 10:35 :00 [facility] GENERAL CHEMISTRY LDH 365 U/L 120 - 246 07/19 19:20 :00 [facility] GENERAL CHEMISTRY Magnesium 1.80 mg/dL 1.60 - 2.60 07/19 19:20 :00 [facility] GENERAL CHEMISTRY Uric Acid 7.2 mg/dL 3.7 - 9.2 07/19 19:20 :00 [facility] GENERAL CHEMISTRY Phosphorus 5.1 mg/dL 2.4 - 5.1 07/19 19:20 :00 [facility] XR Chest Portable XR Chest Portable XR [...] Signed on: 07/19/24 14:09 07/19 13:42 :28 [facility] GENERAL CHEMISTRY LDH 143 U/L 120 - 246 07/08 12:37 :00 [facility] GENERAL CHEMISTRY AST-SGOT 15 U/L 07/08 12:37 :00 [facility] GENERAL CHEMISTRY Albumin 3.9 g/dL 3.4 - 5.0 07/08 12:37 :00 [facility] GENERAL CHEMISTRY Alkaline Phosphatase 100 U/L 40 - 129 07/08 12:37 :00 [facility] GENERAL CHEMISTRY ALT-SGPT 22 U/L 10 - 50 07/08 12:37 :00 [facility] GENERAL CHEMISTRY BUN 7 mg/dL 6 - 20 07/08 12:37 :00 [facility] GENERAL CHEMISTRY Calcium 9.2 mg/dL 8.3 - 10.6 07/08 12:37 :00 [facility] GENERAL CHEMISTRY Glucose Lvl 89 mg/dL 70 - 139 07/08 12:37 :00 [facility] GENERAL CHEMISTRY Chloride 106 mmol/L 98 - 107 07/08 12:37 :00 [facility] GENERAL CHEMISTRY Sodium 140 mmol/L 136 - 145 07/08 12:37 :00 [facility] GENERAL CHEMISTRY Potassium 4.0 mmol/L 3.5 - 5.1 07/08 12:37 :00 [facility] GENERAL CHEMISTRY CO2 26 mmol/L 20 - 07/08 12:37 :00 [facility] GENERAL CHEMISTRY Anion gap 12 mmol/L 0 - 20 07/08 12:37 :00 [facility] GENERAL CHEMISTRY T Bili 0.26 mg/dL 0.30 - 1.20 07/08 12:37 :00 [facility] GENERAL CHEMISTRY Total Protein 5.9 g/dL 5.7 - 8.2 07/08 12:37 :00 [facility] GENERAL CHEMISTRY Creatinine, standardized 0.5 mg/dL 0.7 - 1.2 07/08 12:37 :00 Interpretive Data: Sdqnpq-je-vnl e transgender patients on testosterone therapy should have results assessed using the male reference range. Pgqq-pw-ilwqi e transgender patients on hormone-modul ating therapy clinical judgment is advisedfor assessment. [facility] GENERAL CHEMISTRY Estimated GFR for Adults 144 mL/min/1.7 3m 07/08 12:37 :00 Interpretive Data: Changed to CKD-EPI 2020 on 2020. [facility] GENERAL CHEMISTRY Estimated GFR for peds Not calculated 07/08 12:37 :00 Interpretive Data: The estimated GFR was calculated using the B lucero Dorado equation (2009) . Reference: Pediatric GFR calculator at [employer] Website. [facility] s HEMATOLOGY PROFILES QA Review Agree (07/08/24 7:37 AM) 07/08 12:37 :00 [facility] s HEMATOLOGY PROFILES Neuts Manual 46.0 % 07/08 12:37 :00 [facility] s HEMATOLOGY PROFILES Lymphocytes Manual 29.0 % 07/08 12:37 :00 [facility] s HEMATOLOGY PROFILES Monocytes Manual 12.0 % 07/08 12:37 :00 [facility] s HEMATOLOGY PROFILES Eosinophils Manual 10.0 % 07/08 12:37 :00 [facility] s HEMATOLOGY PROFILES Basophils Manual 2.0 % 07/08 12:37 :00 [facility] s HEMATOLOGY PROFILES Reactive Lymphs Manual 1.0 % 07/08 12:37 :00 [facility] HEMATOLOGY PROFILES Abs Reactive Lymphs Manual 00.01 07/08 12:37 :00 [facility] HEMATOLOGY PROFILES Absolute Neutrophils Manual 0.64 x10(9)/L 1.70 - 7.00 07/08 12:37 :00 [facility] s HEMATOLOGY PROFILES Abs Lymphocytes Manual 0.41 x10(9)/L 0.90 - 2.90 07/08 12:37 :00 [facility] HEMATOLOGY PROFILES Abs Monocytes Manual 0.17 x10(9)/L 0.30 - 0.90 07/08 12:37 :00 [facility] HEMATOLOGY PROFILES Abs Eosinophils Manual 0.14 x10(9)/L 0.05 - 0.50 07/08 12:37 :00 [facility] s HEMATOLOGY PROFILES Abs Basophils Manual 0.03 x10(9)/L 0.00 - 0.30 07/08 12:37 :00 [facility] HEMATOLOGY PROFILES Morphology Present *NA* (07/08/24 7:37 AM) 07/08 12:37 :00 [facility] HEMATOLOGY PROFILES Platelet Estimate Decreased *NA* (07/08/24 7:37 AM) 07/08 12:37 :00 [facility] HEMATOLOGY PROFILES Aniso 1+ (10-20%) *NA* (07/08/24 7:37 AM) 07/08 12:37 :00 [facility] HEMATOLOGY PROFILES Elliptocytes (Ovalocytes) 1+ (10-25%) *NA* (07/08/24 7:37 AM) 07/08 12:37 :00 [facility] HEMATOLOGY PROFILES Internal Review Yes (07/08/24 7:37 AM) 07/08 12:37 :00 [facility] HEMATOLOGY PROFILES WBC 1.40 x10(9)/L 3.50 - 10.50 07/08 12:37 :00 [facility] HEMATOLOGY PROFILES RBC 3.34 x10(12)/L 4.32 - 5.72 07/08 12:37 :00 [facility] HEMATOLOGY PROFILES HGB 10.0 g/dL 13.5 - 17.5 07/08 12:37 :00 Interpretive Data: Aszwzf-sm-qgx e transgender patients on testosterone therapy should have results assessed using the male reference range. Jvww-xr-yecsj e transgender patients on hormone-modul ating therapy clinical judgment is advisedfor assessment. [facility] HEMATOLOGY PROFILES HCT 31.8 % 38.8 - 50.0 07/08 12:37 :00 Interpretive Data: Iioqgz-nj-fuw e transgender patients on testosterone therapy should have results assessed using the male reference range. Lkof-xj-zxswf e transgender patients on hormone-modul ating therapy clinical judgment is advisedfor assessment. [facility] HEMATOLOGY PROFILES MCV 95.2 fL 81.2 - 95.1 07/08 12:37 :00 [facility] HEMATOLOGY PROFILES MCH 29.9 pg 26.0 - 33.0 07/08 12:37 :00 [facility] HEMATOLOGY PROFILES MCHC 31.4 g/dL 32.0 - 36.0 07/08 12:37 :00 [facility] HEMATOLOGY PROFILES RDW CV 16.4 % 11.8 - 15.6 07/08 12:37 :00 [facility] HEMATOLOGY PROFILES RDW SD 57.7 fL 35.1 - 43.9 07/08 12:37 :00 [facility] HEMATOLOGY PROFILES PLT 90 x10(9)/L 150 - 450 07/08 12:37 :00 [facility] HEMATOLOGY PROFILES MPV 10.9 8.0 - 12.0 07/08 12:37 :00 [facility] OTHER HEMATOLOGY TESTS Reticulocyte Count 0.006 0.055 - 0.141 07/08 12:37 :00 [facility] OTHER HEMATOLOGY TESTS Reticulocyte Percent 0.2 % 1.1 - 2.7 07/08 12:37 :00 [facility] OTHER HEMATOLOGY TESTS Immature Reticulocyte Fraction 11.8 % 2.3 - 15.9 07/08 12:37 :00 [facility] OTHER HEMATOLOGY TESTS Reticulocyte Hemoglobin 36.5 pg 29.0 - 35.3 07/08 12:37 :00 [facility] Cytology Non-BEAD WRAPPER Report Cytology Non-BEAD WRAPPER Report CYTOLOGY MEDICAL REPORT Patient Name: EVELINA REGALADO Specimen Number: [id number] Patient Collection Date: 07/01/2024 Submitting Physician: Heike Barrientos MD Signout Date: 07/03/2024 Other Physician( s): Roxi Sol MD ======== FINAL DIAGNOSIS CEREBROSPI NAL FLUID: Negative for acute leukemia. See previous material ([id number], [id number], [id number], [id number], [id number], [id number], [id number], [id number], [id number]). Diagnosis Comment Review of the [...] report (if any) were determined by the [facility] Department of Pathology. They have not been [...] laboratory testing. 07/01 12:55 :00 Missing Attachment [id number] can be viewed in source system [facility] GENERAL CHEMISTRY BUN 14 mg/dL 6 - 20 07/01 09:14 :00 [facility] GENERAL CHEMISTRY Calcium 9.7 mg/dL 8.3 - 10.6 07/01 09:14 :00 [facility] GENERAL CHEMISTRY Glucose Lvl 114 mg/dL 70 - 139 07/01 09:14 :00 [facility] GENERAL CHEMISTRY Chloride 107 mmol/L 98 - 107 07/01 09:14 :00 [facility] GENERAL CHEMISTRY Sodium 139 mmol/L 136 - 145 07/01 09:14 :00 [facility] GENERAL CHEMISTRY Potassium 3.9 mmol/L 3.5 - 5.1 07/01 09:14 :00 [facility] GENERAL CHEMISTRY CO2 28 mmol/L 20 - 31 07/01 09:14 :00 [facility] GENERAL CHEMISTRY Anion gap 8 mmol/L 0 - 20 07/01 09:14 :00 [facility] GENERAL CHEMISTRY Creatinine, standardized 0.5 mg/dL 0.7 - 1.2 07/01 09:14 :00 Interpretive Data: Ywhhaq-xx-qjh e transgender patients on testosterone therapy should have results assessed using the male reference range. Lwfd-uy-pozwq e transgender patients on hormone-modul ating therapy clinical judgment is advisedfor assessment. [facility] GENERAL CHEMISTRY Estimated GFR for Adults 149 mL/min/1.7 3m 07/01 09:14 :00 Interpretive Data: Changed to CKD-EPI 2020 on 2020. [facility] GENERAL CHEMISTRY Estimated GFR for peds Not calculated 07/01 09:14 :00 Interpretive Data: The estimated GFR was calculated using the B lucero Dorado equation (2009) . Reference: Pediatric GFR calculator at [employer] Website. [facility] HEMATOLOGY PROFILES Morphology Previously Reviewed, results remain consistent *NA* (07/01/24 4:14 AM) 07/01 09:14 :00 [facility] HEMATOLOGY PROFILES % Nucleated RBCs 0.0 % 07/01 09:14 :00 [facility] HEMATOLOGY PROFILES Absolute Nucleated RBCs 0.0 x10(9)/L 0.0 - 0.0 07/01 09:14 :00 Interpretive Data: Normal values not established in patients less than 18 years old. [facility] HEMATOLOGY PROFILES % Neutrophils 89.3 % 07/01 09:14 :00 [facility] HEMATOLOGY PROFILES % Lymphocytes 2.4 % 07/01 09:14 :00 [facility] HEMATOLOGY PROFILES % Monocytes 7.4 % 07/01 09:14 :00 [facility] HEMATOLOGY PROFILES % Eosinophils 0.0 % 07/01 09:14 :00 [facility] HEMATOLOGY PROFILES % Basophils 0.0 % 07/01 09:14 :00 [facility] HEMATOLOGY PROFILES % Immature Granulocytes 0.90 % 0.02 - 0.42 07/01 09:14 :00 [facility] HEMATOLOGY PROFILES Absolute Granulocytes 6.26 x10(9)/L 1.70 - 7.00 07/01 09:14 :00 [facility] HEMATOLOGY PROFILES Abs Lymphocytes 0.17 x10(9)/L 0.90 - 2.90 07/01 09:14 :00 [facility] HEMATOLOGY PROFILES Abs Monocytes 0.52 x10(9)/L 0.30 - 0.90 07/01 09:14 :00 [facility] HEMATOLOGY PROFILES Abs Eosinophils 0.00 x10(9)/L 0.05 - 0.50 07/01 09:14 :00 [facility] HEMATOLOGY PROFILES Abs Basophils 0.00 x10(9)/L 0.00 - 0.30 07/01 09:14 :00 [facility] HEMATOLOGY PROFILES Abs Immature Granulocytes 0.06 x10(9)/L 0.00 - 0.03 07/01 09:14 :00 [facility] HEMATOLOGY PROFILES WBC 7.01 x10(9)/L 3.50 - 10.50 07/01 09:14 :00 [facility] HEMATOLOGY PROFILES RBC 3.68 x10(12)/L 4.32 - 5.72 07/01 09:14 :00 [facility] HEMATOLOGY PROFILES HGB 11.3 g/dL 13.5 - 17.5 07/01 09:14 :00 Interpretive Data: Vhkpxt-mk-dxl e transgender patients on testosterone therapy should have results assessed using the male reference range. Ttdm-rj-kkizd e transgender patients on hormone-modul ating therapy clinical judgment is advisedfor assessment. [facility] HEMATOLOGY PROFILES HCT 34.6 % 38.8 - 50.0 07/01 09:14 :00 Interpretive Data: Kbzsbv-rd-qxj e transgender patients on testosterone therapy should have results assessed using the male reference range. Kcnw-uk-ariml e transgender patients on hormone-modul ating therapy clinical judgment is advisedfor assessment. [facility] HEMATOLOGY PROFILES MCV 94.0 fL 81.2 - 95.1 07/01 09:14 :00 [facility] HEMATOLOGY PROFILES MCH 30.7 pg 26.0 - 33.0 07/01 09:14 :00 [facility] HEMATOLOGY PROFILES MCHC 32.7 g/dL 32.0 - 36.0 07/01 09:14 :00 [facility] HEMATOLOGY PROFILES RDW CV 17.1 % 11.8 - 15.6 07/01 09:14 :00 [facility] HEMATOLOGY PROFILES RDW SD 59.4 fL 35.1 - 43.9 07/01 09:14 :00 [facility] HEMATOLOGY PROFILES PLT 175 x10(9)/L 150 - 450 07/01 09:14 :00 [facility] HEMATOLOGY PROFILES MPV 10.7 8.0 - 12.0 07/01 09:14 :00 [facility] GENERAL CHEMISTRY AST-SGOT 20 U/L 06/30 09:12 :00 [facility] GENERAL CHEMISTRY Albumin 3.7 g/dL 3.4 - 5.0 06/30 09:12 :00 [facility] GENERAL CHEMISTRY Alkaline Phosphatase 77 U/L 40 - 129 06/30 09:12 :00 [facility] GENERAL CHEMISTRY ALT-SGPT 27 U/L 10 - 50 06/30 09:12 :00 [facility] GENERAL CHEMISTRY BUN 13 mg/dL 6 - 20 06/30 09:12 :00 [facility] GENERAL CHEMISTRY Calcium 10.1 mg/dL 8.3 - 10.6 06/30 09:12 :00 [facility] GENERAL CHEMISTRY Glucose Lvl 126 mg/dL 70 - 139 06/30 09:12 :00 [facility] GENERAL CHEMISTRY Chloride 106 mmol/L 98 - 107 06/30 09:12 :00 [facility] GENERAL CHEMISTRY Sodium 142 mmol/L 136 - 145 06/30 09:12 :00 [facility] GENERAL CHEMISTRY Potassium 4.0 mmol/L 3.5 - 5.1 06/30 09:12 :00 [facility] GENERAL CHEMISTRY CO2 27 mmol/L 20 - 31 06/30 09:12 :00 [facility] GENERAL CHEMISTRY Anion gap 13 mmol/L 0 - 20 06/30 09:12 :00 [facility] GENERAL CHEMISTRY T Bili 0.42 mg/dL 0.30 - 1.20 06/30 09:12 :00 [facility] GENERAL CHEMISTRY Total Protein 6.3 g/dL 5.7 - 8.2 06/30 09:12 :00 [facility] GENERAL CHEMISTRY Creatinine, standardized 0.6 mg/dL 0.7 - 1.2 06/30 09:12 :00 Interpretive Data: Iwasey-ln-dna e transgender patients on testosterone therapy should have results assessed using the male reference range. Tigp-xp-elnkt e transgender patients on hormone-modul ating therapy clinical judgment is advisedfor assessment. [facility] GENERAL CHEMISTRY Estimated GFR for Adults 141 mL/min/1.7 3m 06/30 09:12 :00 Interpretive Data: Changed to CKD-EPI 2020 on 2020. [facility] GENERAL CHEMISTRY Estimated GFR for peds Not calculated 06/30 09:12 :00 Interpretive Data: The estimated GFR was calculated using the B lucero Dorado equation (2009) . Reference: Pediatric GFR calculator at [employer] Website. [facility] HEMATOLOGY PROFILES WBC 9.32 x10(9)/L 3.50 - 10.50 06/30 09:12 :00 [facility] HEMATOLOGY PROFILES RBC 3.60 x10(12)/L 4.32 - 5.72 06/30 09:12 :00 [facility] HEMATOLOGY PROFILES HGB 11.0 g/dL 13.5 - 17.5 06/30 09:12 :00 Interpretive Data: Mwwkup-vc-sem e transgender patients on testosterone therapy should have results assessed using the male reference range. Yzru-gr-yeaqn e transgender patients on hormone-modul ating therapy clinical judgment is advisedfor assessment. [facility] HEMATOLOGY PROFILES HCT 34.0 % 38.8 - 50.0 06/30 09:12 :00 Interpretive Data: Iroqkq-ic-dej e transgender patients on testosterone therapy should have results assessed using the male reference range. Vqeh-ju-himav e transgender patients on hormone-modul ating therapy clinical judgment is advisedfor assessment. [facility] HEMATOLOGY PROFILES MCV 94.4 fL 81.2 - 95.1 06/30 09:12 :00 [facility] HEMATOLOGY PROFILES MCH 30.6 pg 26.0 - 33.0 06/30 09:12 :00 [facility] HEMATOLOGY PROFILES MCHC 32.4 g/dL 32.0 - 36.0 06/30 09:12 :00 [facility] HEMATOLOGY PROFILES RDW CV 17.8 % 11.8 - 15.6 06/30 09:12 :00 [facility] HEMATOLOGY PROFILES RDW SD 62.2 fL 35.1 - 43.9 06/30 09:12 :00 [facility] HEMATOLOGY PROFILES PLT 194 x10(9)/L 150 - 450 06/30 09:12 :00 [facility] HEMATOLOGY PROFILES MPV 10.6 8.0 - 12.0 06/30 09:12 :00 [facility] HEMATOLOGY PROFILES % Nucleated RBCs 0.0 % 06/30 09:12 :00 [facility] HEMATOLOGY PROFILES Absolute Nucleated RBCs 0.0 x10(9)/L 0.0 - 0.0 06/30 09:12 :00 Interpretive Data: Normal values not established in patients less than 18 years old. [facility] HEMATOLOGY PROFILES % Neutrophils 92.3 % 06/30 09:12 :00 [facility] HEMATOLOGY PROFILES % Lymphocytes 3.1 % 06/30 09:12 :00 [facility] HEMATOLOGY PROFILES % Monocytes 3.1 % 06/30 09:12 :00 [facility] HEMATOLOGY PROFILES % Eosinophils 0.0 % 06/30 09:12 :00 [facility] HEMATOLOGY PROFILES % Basophils 0.1 % 06/30 09:12 :00 [facility] HEMATOLOGY PROFILES % Immature Granulocytes 1.40 % 0.02 - 0.42 06/30 09:12 :00 [facility] HEMATOLOGY PROFILES Absolute Granulocytes 8.60 x10(9)/L 1.70 - 7.00 06/30 09:12 :00 [facility] HEMATOLOGY PROFILES Abs Lymphocytes 0.29 x10(9)/L 0.90 - 2.90 06/30 09:12 :00 [facility] HEMATOLOGY PROFILES Abs Monocytes 0.29 x10(9)/L 0.30 - 0.90 06/30 09:12 :00 [facility] HEMATOLOGY PROFILES Abs Eosinophils 0.00 x10(9)/L 0.05 - 0.50 06/30 09:12 :00 [facility] HEMATOLOGY PROFILES Abs Basophils 0.01 x10(9)/L 0.00 - 0.30 06/30 09:12 :00 [facility] HEMATOLOGY PROFILES Abs Immature Granulocytes 0.13 x10(9)/L 0.00 - 0.03 06/30 09:12 :00 [facility] HEMATOLOGY PROFILES Morphology Previously Reviewed, results remain consistent *NA* (06/30/24 4:12 AM) 06/30 09:12 :00 [facility] GENERAL CHEMISTRY AST-SGOT 24 U/L 06/29 10:42 :00 [facility] GENERAL CHEMISTRY Albumin 3.8 g/dL 3.4 - 5.0 06/29 10:42 :00 [facility] GENERAL CHEMISTRY Alkaline Phosphatase 77 U/L 40 - 129 06/29 10:42 :00 [facility] GENERAL CHEMISTRY ALT-SGPT 29 U/L 10 - 50 06/29 10:42 :00 [facility] GENERAL CHEMISTRY BUN 11 mg/dL 6 - 20 06/29 10:42 :00 [facility] GENERAL CHEMISTRY Calcium 10.4 mg/dL 8.3 - 10.6 06/29 10:42 :00 [facility] GENERAL CHEMISTRY Glucose Lvl 135 mg/dL 70 - 139 06/29 10:42 :00 [facility] GENERAL CHEMISTRY Chloride 106 mmol/L 98 - 107 06/29 10:42 :00 [facility] GENERAL CHEMISTRY Sodium 141 mmol/L 136 - 145 06/29 10:42 :00 [facility] GENERAL CHEMISTRY Potassium 4.0 mmol/L 3.5 - 5.1 06/29 10:42 :00 [facility] GENERAL CHEMISTRY CO2 27 mmol/L 20 - 31 06/29 10:42 :00 [facility] GENERAL CHEMISTRY Anion gap 12 mmol/L 0 - 20 06/29 10:42 :00 [facility] GENERAL CHEMISTRY T Bili 0.37 mg/dL 0.30 - 1.20 06/29 10:42 :00 [facility] GENERAL CHEMISTRY Total Protein 6.5 g/dL 5.7 - 8.2 06/29 10:42 :00 [facility] GENERAL CHEMISTRY Creatinine, standardized 0.5 mg/dL 0.7 - 1.2 06/29 10:42 :00 Interpretive Data: Pmrfrf-mo-csf e transgender patients on testosterone therapy should have results assessed using the male reference range. Gvtv-mb-ejplh e transgender patients on hormone-modul ating therapy clinical judgment is advisedfor assessment. [facility] GENERAL CHEMISTRY Estimated GFR for Adults 143 mL/min/1.7 3m 06/29 10:42 :00 Interpretive Data: Changed to CKD-EPI 2020 on 2020. [facility] GENERAL CHEMISTRY Estimated GFR for peds Not calculated 06/29 10:42 :00 Interpretive Data: The estimated GFR was calculated using the B lucero Dorado equation (2009) . Reference: Pediatric GFR calculator at [employer] Website. [facility] HEMATOLOGY PROFILES % Nucleated RBCs 0.0 % 06/29 10:42 :00 [facility] HEMATOLOGY PROFILES Absolute Nucleated RBCs 0.0 x10(9)/L 0.0 - 0.0 06/29 10:42 :00 Interpretive Data: Normal values not established in patients less than 18 years old. [facility] HEMATOLOGY PROFILES % Neutrophils 90.8 % 06/29 10:42 :00 [facility] HEMATOLOGY PROFILES % Lymphocytes 3.9 % 06/29 10:42 :00 [facility] HEMATOLOGY PROFILES % Monocytes 3.5 % 06/29 10:42 :00 [facility] HEMATOLOGY PROFILES % Eosinophils 0.0 % 06/29 10:42 :00 [facility] HEMATOLOGY PROFILES % Basophils 0.1 % 06/29 10:42 :00 [facility] HEMATOLOGY PROFILES % Immature Granulocytes 1.70 % 0.02 - 0.42 06/29 10:42 :00 [facility] HEMATOLOGY PROFILES Absolute Granulocytes 8.60 x10(9)/L 1.70 - 7.00 06/29 10:42 :00 [facility] HEMATOLOGY PROFILES Abs Lymphocytes 0.37 x10(9)/L 0.90 - 2.90 06/29 10:42 :00 [facility] HEMATOLOGY PROFILES Abs Monocytes 0.33 x10(9)/L 0.30 - 0.90 06/29 10:42 :00 [facility] HEMATOLOGY PROFILES Abs Eosinophils 0.00 x10(9)/L 0.05 - 0.50 06/29 10:42 :00 [facility] HEMATOLOGY PROFILES Abs Basophils 0.01 x10(9)/L 0.00 - 0.30 06/29 10:42 :00 [facility] HEMATOLOGY PROFILES Abs Immature Granulocytes 0.16 x10(9)/L 0.00 - 0.03 06/29 10:42 :00 [facility] HEMATOLOGY PROFILES Morphology Previously Reviewed, results remain consistent *NA* (06/29/24 5:42 AM) 06/29 10:42 :00 [facility] HEMATOLOGY PROFILES WBC 9.47 x10(9)/L 3.50 - 10.50 06/29 10:42 :00 [facility] HEMATOLOGY PROFILES RBC 3.52 x10(12)/L 4.32 - 5.72 06/29 10:42 :00 [facility] HEMATOLOGY PROFILES HGB 10.8 g/dL 13.5 - 17.5 06/29 10:42 :00 Interpretive Data: Rppgqt-yg-nxz e transgender patients on testosterone therapy should have results assessed using the male reference range. Engx-to-phsvy e transgender patients on hormone-modul ating therapy clinical judgment is advisedfor assessment. [facility] HEMATOLOGY PROFILES HCT 32.8 % 38.8 - 50.0 06/29 10:42 :00 Interpretive Data: Ffbjvq-br-wge e transgender patients on testosterone therapy should have results assessed using the male reference range. Arit-tv-xcozg e transgender patients on hormone-modul ating therapy clinical judgment is advisedfor assessment. [facility] HEMATOLOGY PROFILES MCV 93.2 fL 81.2 - 95.1 06/29 10:42 :00 [facility] HEMATOLOGY PROFILES MCH 30.7 pg 26.0 - 33.0 06/29 10:42 :00 [facility] HEMATOLOGY PROFILES MCHC 32.9 g/dL 32.0 - 36.0 06/29 10:42 :00 [facility] HEMATOLOGY PROFILES RDW CV 18.2 % 11.8 - 15.6 06/29 10:42 :00 [facility] HEMATOLOGY PROFILES RDW SD 62.3 fL 35.1 - 43.9 06/29 10:42 :00 [facility] HEMATOLOGY PROFILES PLT 222 x10(9)/L 150 - 450 06/29 10:42 :00 [facility] HEMATOLOGY PROFILES MPV 10.6 8.0 - 12.0 06/29 10:42 :00 [facility] BODY FLUIDS/CSF CSF, Protein 13 mg/dL 15 - 45 06/28 18:49 :00 [facility] BODY FLUIDS/CSF CSF, Glucose 109 mg/dL 40 - 70 06/28 18:49 :00 [facility] BODY FLUIDS/CSF CSF Xanthochromi c Absent (06/28/24 1:49 PM) 06/28 18:49 :00 [facility] BODY FLUIDS/CSF CSF Cutoff Values See Comment [...] would require invasive sampling of normal people. [facility] BODY FLUIDS/CSF CSF, Color Colorless (06/28/24 1:49 PM) 06/28 18:49 :00 [facility] BODY FLUIDS/CSF CSF, Spec Appear Clear (06/28/24 1:49 PM) 06/28 18:49 :00 [facility] BODY FLUIDS/CSF CSF, WBC 0 /mcL 06/28 18:49 :00 Interpretive Data: Variation from manual counting may exceed 50% and approach 15-20% using automated method. Pleocytosis in Adults (increased WBC count) may be graded: Mild: 5-50 WBC/uL Moderate: 51-200 WBC/uL Severe: > 200 WBC/uL CSF may have > 60% neutrophils in high-risk neonates without meningitis [facility] BODY FLUIDS/CSF CSF, RBC 1 /mcL 06/28 18:49 :00 Interpretive Data: Variation from manual counting may exceed 50% and approach 15-20% using automated method. [facility] Cytology Non-BEAD WRAPPER Report Cytology Non-BEAD WRAPPER Report CYTOLOGY MEDICAL REPORT Patient Name: EVELINA REGALADO Specimen Number: [id number] Patient Collection Date: 06/28/2024 Submitting Physician: Wm York M.D. Signout Date: 07/02/2024 Other Physician( s): Aleisha Gordon MD ======== FINAL DIAGNOSIS CEREBROSPI NAL FLUID: Negative for leukemia. See previous materials ([id number], [id number], [id number], [id number], [id number], [id number], [id number], [id number]). Diagnosis Comment Review of the Luo stained [...] report (if any) were determined by the [facility] Department of Pathology. They have not been [...] laboratory testing. 06/28 14:07 :00 Missing Attachment [id number] can be viewed in source system [facility] GENERAL CHEMISTRY AST-SGOT 28 U/L 06/28 09:22 :00 [facility] GENERAL CHEMISTRY Albumin 3.9 g/dL 3.4 - 5.0 06/28 09:22 :00 [facility] CHEMISTRY Alkaline Phosphatase 86 U/L 40 - 129 06/28 09:22 :00 [facility] CHEMISTRY ALT-SGPT 29 U/L 10 - 50 06/28 09:22 :00 [facility] CHEMISTRY BUN 12 mg/dL 6 - 20 06/28 09:22 :00 [facility] GENERAL CHEMISTRY Calcium 10.5 mg/dL 8.3 - 10.6 06/28 09:22 :00 [facility] GENERAL CHEMISTRY Glucose Lvl 138 mg/dL 70 - 139 06/28 09:22 :00 [facility] GENERAL CHEMISTRY Chloride 104 mmol/L 98 - 107 06/28 09:22 :00 [facility] GENERAL CHEMISTRY Sodium 139 mmol/L 136 - 145 06/28 09:22 :00 [facility] GENERAL CHEMISTRY Potassium 4.1 mmol/L 3.5 - 5.1 06/28 09:22 :00 [facility] GENERAL CHEMISTRY CO2 24 mmol/L 20 - 31 06/28 09:22 :00 [facility] CHEMISTRY Anion gap 15 mmol/L 0 - 20 06/28 09:22 :00 [facility] GENERAL CHEMISTRY T Bili 0.43 mg/dL 0.30 - 1.20 06/28 09:22 :00 [facility] CHEMISTRY Total Protein 6.6 g/dL 5.7 - 8.2 06/28 09:22 :00 [facility] GENERAL CHEMISTRY Creatinine, standardized 0.6 mg/dL 0.7 - 1.2 06/28 09:22 :00 Interpretive Data: Cjifyl-rx-ikx e transgender patients on testosterone therapy should have results assessed using the male reference range. Cevn-ba-avyng e transgender patients on hormone-modul ating therapy clinical judgment is advisedfor assessment. [facility] GENERAL CHEMISTRY Estimated GFR for Adults 140 mL/min/1.7 3m 06/28 09:22 :00 Interpretive Data: Changed to CKD-EPI 2020 on 2020. [facility] GENERAL CHEMISTRY Estimated GFR for peds Not calculated 06/28 09:22 :00 Interpretive Data: The estimated GFR was calculated using the B [employer]side Dorado equation (2009) . Reference: Pediatric GFR calculator at [employer] [facility] Website. [facility] HEMATOLOGY PROFILES WBC 13.23 x10(9)/L 3.50 - 10.50 06/28 09:22 :00 [facility] HEMATOLOGY PROFILES RBC 3.78 x10(12)/L 4.32 - 5.72 06/28 09:22 :00 [facility] HEMATOLOGY PROFILES HGB 11.6 g/dL 13.5 - 17.5 06/28 09:22 :00 Interpretive Data: Sgcqdb-fo-rxh e transgender patients on testosterone therapy should have results assessed using the male reference range. Hwyo-kf-pjyft e transgender patients on hormone-modul ating therapy clinical judgment is advisedfor assessment. [facility] HEMATOLOGY PROFILES HCT 34.9 % 38.8 - 50.0 06/28 09:22 :00 Interpretive Data: Lsaavr-sq-vip e transgender patients on testosterone therapy should have results assessed using the male reference range. Scya-sb-tsyis e transgender patients on hormone-modul ating therapy clinical judgment is advisedfor assessment. [facility] HEMATOLOGY PROFILES MCV 92.3 fL 81.2 - 95.1 06/28 09:22 :00 [facility] HEMATOLOGY PROFILES MCH 30.7 pg 26.0 - 33.0 06/28 09:22 :00 [facility] HEMATOLOGY PROFILES MCHC 33.2 g/dL 32.0 - 36.0 06/28 09:22 :00 [facility] HEMATOLOGY PROFILES RDW CV 17.6 % 11.8 - 15.6 06/28 09:22 :00 [facility] HEMATOLOGY PROFILES RDW SD 60.3 fL 35.1 - 43.9 06/28 09:22 :00 [facility] HEMATOLOGY PROFILES PLT 264 x10(9)/L 150 - 450 06/28 09:22 :00 [facility] HEMATOLOGY PROFILES MPV 10.5 8.0 - 12.0 06/28 09:22 :00 [facility] HEMATOLOGY PROFILES Neuts Manual 91.0 % 06/28 09:22 :00 [facility] HEMATOLOGY PROFILES Lymphocytes Manual 7.0 % 06/28 09:22 :00 [facility] HEMATOLOGY PROFILES Monocytes Manual 2.0 % 06/28 09:22 :00 [facility] HEMATOLOGY PROFILES Absolute Neutrophils Manual 12.04 x10(9)/L 1.70 - 7.00 06/28 09:22 :00 [facility] HEMATOLOGY PROFILES Abs Lymphocytes Manual 0.93 x10(9)/L 0.90 - 2.90 06/28 09:22 :00 [facility] HEMATOLOGY PROFILES Abs Monocytes Manual 0.26 x10(9)/L 0.30 - 0.90 06/28 09:22 :00 [facility] HEMATOLOGY PROFILES Morphology Present *NA* (06/28/24 4:22 AM) 06/28 09:22 :00 [facility] HEMATOLOGY PROFILES Platelet Estimate Adequate *NA* (06/28/24 4:22 AM) 06/28 09:22 :00 [facility] HEMATOLOGY PROFILES Aniso 1+ (10-20%) *NA* (06/28/24 4:22 AM) 06/28 09:22 :00 [facility] HEMATOLOGY PROFILES Elliptocytes (Ovalocytes) 1+ (10-25%) *NA* (06/28/24 4:22 AM) 06/28 09:22 :00 [facility] HEMATOLOGY PROFILES Schistocytes 1+ (Rare-3%) *NA* (06/28/24 4:22 AM) 06/28 09:22 :00 [facility] GENERAL CHEMISTRY AST-SGOT 30 U/L 06/27 20:37 :00 [facility] GENERAL CHEMISTRY Albumin 3.8 g/dL 3.4 - 5.0 06/27 20:37 :00 [facility] GENERAL CHEMISTRY Alkaline Phosphatase 87 U/L 40 - 129 06/27 20:37 :00 [facility] GENERAL CHEMISTRY ALT-SGPT 28 U/L 10 - 50 06/27 20:37 :00 [facility] GENERAL CHEMISTRY T Bili 0.36 mg/dL 0.30 - 1.20 06/27 20:37 :00 [facility] GENERAL CHEMISTRY Total Protein 6.3 g/dL 5.7 - 8.2 06/27 20:37 :00 [facility] GENERAL CHEMISTRY LDH 241 U/L 120 - 246 06/27 20:37 :00 [facility] HEMATOLOGY PROFILES % Nucleated RBCs 0.0 % 06/27 20:37 :00 [facility] HEMATOLOGY PROFILES Absolute Nucleated RBCs 0.0 x10(9)/L 0.0 - 0.0 06/27 20:37 :00 Interpretive Data: Normal values not established in patients less than 18 years old. [facility] HEMATOLOGY PROFILES % Neutrophils 57.2 % 06/27 20:37 :00 [facility] HEMATOLOGY PROFILES % Lymphocytes 15.0 % 06/27 20:37 :00 [facility] HEMATOLOGY PROFILES % Monocytes 24.4 % 06/27 20:37 :00 [facility] HEMATOLOGY PROFILES % Eosinophils 0.5 % 06/27 20:37 :00 [facility] HEMATOLOGY PROFILES % Basophils 1.2 % 06/27 20:37 :00 [facility] HEMATOLOGY PROFILES % Immature Granulocytes 1.70 % 0.02 - 0.42 06/27 20:37 :00 [facility] HEMATOLOGY PROFILES Absolute Granulocytes 3.31 x10(9)/L 1.70 - 7.00 06/27 20:37 :00 [facility] HEMATOLOGY PROFILES Abs Lymphocytes 0.87 x10(9)/L 0.90 - 2.90 06/27 20:37 :00 [facility] HEMATOLOGY PROFILES Abs Monocytes 1.41 x10(9)/L 0.30 - 0.90 06/27 20:37 :00 [facility] HEMATOLOGY PROFILES Abs Eosinophils 0.03 x10(9)/L 0.05 - 0.50 06/27 20:37 :00 [facility] HEMATOLOGY PROFILES Abs Basophils 0.07 x10(9)/L 0.00 - 0.30 06/27 20:37 :00 [facility] HEMATOLOGY PROFILES Abs Immature Granulocytes 0.10 x10(9)/L 0.00 - 0.03 06/27 20:37 :00 [facility] OTHER HEMATOLOGY TESTS Reticulocyte Count 0.091 0.055 - 0.141 06/27 20:37 :00 [facility] OTHER HEMATOLOGY TESTS Reticulocyte Percent 2.6 % 1.1 - 2.7 06/27 20:37 :00 [facility] OTHER HEMATOLOGY TESTS Immature Reticulocyte Fraction 21.3 % 2.3 - 15.9 06/27 20:37 :00 [facility] OTHER HEMATOLOGY TESTS Reticulocyte Hemoglobin 32.9 pg 29.0 - 35.3 06/27 20:37 :00 [facility] GENERAL CHEMISTRY AST-SGOT 39 U/L 06/04 08:54 :00 [facility] GENERAL CHEMISTRY Albumin 3.6 g/dL 3.4 - 5.0 06/04 08:54 :00 [facility] CHEMISTRY Alkaline Phosphatase 156 U/L 40 - 129 06/04 08:54 :00 [facility] CHEMISTRY ALT-SGPT 85 U/L 10 - 50 06/04 08:54 :00 [facility] GENERAL CHEMISTRY BUN 14 mg/dL 6 - 20 06/04 08:54 :00 [facility] CHEMISTRY Calcium 10.0 mg/dL 8.3 - 10.6 06/04 08:54 :00 [facility] GENERAL CHEMISTRY Glucose Lvl 133 mg/dL 70 - 139 06/04 08:54 :00 [facility] GENERAL CHEMISTRY Chloride 102 mmol/L 98 - 107 06/04 08:54 :00 [facility] GENERAL CHEMISTRY Sodium 136 mmol/L 136 - 145 06/04 08:54 :00 [facility] GENERAL CHEMISTRY Potassium 4.2 mmol/L 3.5 - 5.1 06/04 08:54 :00 [facility] GENERAL CHEMISTRY CO2 25 mmol/L 20 - 31 06/04 08:54 :00 [facility] GENERAL CHEMISTRY Anion gap 13 mmol/L 0 - 20 06/04 08:54 :00 [facility] GENERAL CHEMISTRY T Bili 0.83 mg/dL 0.30 - 1.20 06/04 08:54 :00 [facility] GENERAL CHEMISTRY Total Protein 6.2 g/dL 5.7 - 8.2 06/04 08:54 :00 [facility] GENERAL CHEMISTRY Creatinine, standardized 0.5 mg/dL 0.7 - 1.2 06/04 08:54 :00 Interpretive Data: Whzizj-ad-nzc e transgender patients on testosterone therapy should have results assessed using the male reference range. Yipi-os-bvjrs e transgender patients on hormone-modul ating therapy clinical judgment is advisedfor assessment. [facility] GENERAL CHEMISTRY Estimated GFR for Adults 147 mL/min/1.7 3m 06/04 08:54 :00 Interpretive Data: Changed to CKD-EPI 2020 on 2020. [facility] GENERAL CHEMISTRY Estimated GFR for peds Not calculated 06/04 08:54 :00 Interpretive Data: The estimated GFR was calculated using the [employer] equation (2009) . Reference: Pediatric GFR calculator at [employer] Website. [facility] HEMATOLOGY PROFILES % Nucleated RBCs 0.0 % 06/04 08:54 :00 [facility] HEMATOLOGY PROFILES Absolute Nucleated RBCs 0.0 x10(9)/L 0.0 - 0.0 06/04 08:54 :00 Interpretive Data: Normal values not established in patients less than 18 years old. [facility] HEMATOLOGY PROFILES % Neutrophils 91.7 % 06/04 08:54 :00 [facility] HEMATOLOGY PROFILES % Lymphocytes 0.8 % 06/04 08:54 :00 [facility] HEMATOLOGY PROFILES % Monocytes 0.2 % 06/04 08:54 :00 [facility] HEMATOLOGY PROFILES % Eosinophils 0.0 % 06/04 08:54 :00 [facility] HEMATOLOGY PROFILES % Basophils 0.2 % 06/04 08:54 :00 [facility] HEMATOLOGY PROFILES % Immature Granulocytes 7.10 % 0.02 - 0.42 06/04 08:54 :00 [facility] HEMATOLOGY PROFILES Absolute Granulocytes 22.19 x10(9)/L 1.70 - 7.00 06/04 08:54 :00 [facility] HEMATOLOGY PROFILES Abs Lymphocytes 0.20 x10(9)/L 0.90 - 2.90 06/04 08:54 :00 [facility] HEMATOLOGY PROFILES Abs Monocytes 0.06 x10(9)/L 0.30 - 0.90 06/04 08:54 :00 [facility] HEMATOLOGY PROFILES Abs Eosinophils 0.00 x10(9)/L 0.05 - 0.50 06/04 08:54 :00 [facility] HEMATOLOGY PROFILES Abs Basophils 0.04 x10(9)/L 0.00 - 0.30 06/04 08:54 :00 [facility] HEMATOLOGY PROFILES Abs Immature Granulocytes 1.73 x10(9)/L 0.00 - 0.03 06/04 08:54 :00 [facility] HEMATOLOGY PROFILES Morphology Present *NA* (06/04/24 3:54 AM) 06/04 08:54 :00 [facility] HEMATOLOGY PROFILES Platelet Estimate Adequate *NA* (06/04/24 3:54 AM) 06/04 08:54 :00 [facility] HEMATOLOGY PROFILES Aniso 1+ (10-20%) *NA* (06/04/24 3:54 AM) 06/04 08:54 :00 [facility] HEMATOLOGY PROFILES Elliptocytes (Ovalocytes) 1+ (10-25%) *NA* (06/04/24 3:54 AM) 06/04 08:54 :00 [facility] HEMATOLOGY PROFILES Schistocytes 1+ (Rare-3%) *NA* (06/04/24 3:54 AM) 06/04 08:54 :00 [facility] HEMATOLOGY PROFILES WBC 24.65 x10(9)/L 3.50 - 10.50 06/04 08:54 :00 [facility] HEMATOLOGY PROFILES RBC 2.87 x10(12)/L 4.32 - 5.72 06/04 08:54 :00 [facility] HEMATOLOGY PROFILES HGB 8.4 g/dL 13.5 - 17.5 06/04 08:54 :00 Interpretive Data: Vpvdbf-gs-tcd e transgender patients on testosterone therapy should have results assessed using the male reference range. Qcjf-jr-ngafk e transgender patients on hormone-modul ating therapy clinical judgment is advisedfor assessment. [facility] HEMATOLOGY PROFILES HCT 25.8 % 38.8 - 50.0 06/04 08:54 :00 Interpretive Data: Cmffma-wu-ppr e transgender patients on testosterone therapy should have results assessed using the male reference range. Mwgp-gs-gxdpy e transgender patients on hormone-modul ating therapy clinical judgment is advisedfor assessment. [facility] HEMATOLOGY PROFILES MCV 89.9 fL 81.2 - 95.1 06/04 08:54 :00 [facility] HEMATOLOGY PROFILES MCH 29.3 pg 26.0 - 33.0 06/04 08:54 :00 [facility] HEMATOLOGY PROFILES MCHC 32.6 g/dL 32.0 - 36.0 06/04 08:54 :00 [facility] HEMATOLOGY PROFILES RDW CV 17.2 % 11.8 - 15.6 06/04 08:54 :00 [facility] HEMATOLOGY PROFILES RDW SD 56.5 fL 35.1 - 43.9 06/04 08:54 :00 [facility] HEMATOLOGY PROFILES PLT 107 x10(9)/L 150 - 450 06/04 08:54 :00 [facility] HEMATOLOGY PROFILES MPV 9.4 8.0 - 12.0 06/04 08:54 :00 [facility] Consultation Notes Results Value Date Source Hem [...] 08/20/2024 Cycle 4B Day 1 on 09/12/2024. [employer] prophylaxis Alternating IT Methotrexate and IT cytarabine [...] 28; continue --- No changes: Methotrexate 20 mg/m? PO on Days 1, [...] Visit Date: 04/18/2025 [1-2] Office Visit Note; Maxx Castellanos 02/28/2025 10:18 CDT [1-2] Office Visit Note; [...] 08/20/2024 Cycle 4B Day 1 on 09/12/2024. [employer] prophylaxis Alternating IT Methotrexate and IT cytarabine [...] 6-MP. Reference Primo LN, Simeon SHR, Wili SaucedoJ, Fannie K. Maintenance therapy for acute lymphoblastic leukemia: basic science and clinical translations. Leukemia. 2021;36(7):6808-2450. This patient was seen under the supervision of Dr. Heike Barrientos and Dr. Renetta Naranjo. Addendum: Patient seen and examined on 02/28/25 with the fellow, Dr. Jackson along with Maxx Weinstein, MS3. Labs and clinical history reviewed. Physical [...] 08/20/2024 Cycle 4B Day 1 on 09/12/2024. [employer] prophylaxis Alternating IT Methotrexate and IT cytarabine [...] most probably blasts, with no signs of Nanyc rods. 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 MRI of the brain is negative for features indicative of [employer] involvement or acute intracranial abnormalities. Scrotal ultrasound showed normal scrotum and testes with no evidence of testicular involvement. 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 Started [...] course of chemotherapy (1B through 4A) for [employer] prophylaxis. Bone marrow biopsy on 09/06/24 showed no morphologic evidence of residual leukemia and clonal CTP cell tracking detected no residual sequences. Plan to start patient on maintenance treatment with POMP regimen. Plan -Start maintenance therapy with POMP regimen for 2 years. Treatment regimen as below. -Will submit new [facility] treatment request form for vincristine -Will refer patient to medical oncology in [place] to establish care for monthly vincristine -Recommended to stop all antimicrobial prophylaxis -Advised to see dentist as soon as possible for possible dental infection -CBC and CMP once a month and results to be faxed to Dr. Barrientos -Return to [facility] for first dose of maintenance vincristine when scheduled Treatment regimen 28-day cycle for 2 years Mercaptopurine 50 mg PO three times daily on Days 1 28 Methotrexate 20 mg/m PO on Days 1, 8, 15, and 22 Vincristine 2 mg IV over 5 10 minutes on Day 1 Prednisone 200 mg PO daily on Days 1 ? 5 Reference Paola GUERRA, [place] S, Zhen TL, et al. Results of treatment with hyper-CVAD, a dose-intensive regimen, in adult acute lymphocytic leukemia. J Clin Oncol. 2000;18(3):547-561. doi:10.1200/JCO.2000.18.3.547 I have sent a prescription for mercaptopurine, methotrexate and prednisone to his [facility] pharmacy for Cycle 1. RTC in 4 [...] Note *; Lan Frazier MD 09/12/2024 08:59 [employer] [1-2] Oncology Office Visit Note *; Lan Frazier MD 09/12/2024 08:59 [employer] [3] Histology [facility]; Morgan BRISCOE, [facility] 09/16/2024 14:49 [employer] 10/25/2024 Hem Oncology IM Consult Note Subjective [...] brain is negative for features indicative of [employer] involvement or acute intracranial abnormalities. Scrotal ultrasound showed normal scrotum and testes with no evidence of testicular involvement. 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 Started [...] 375 mg/m2 IV (scheduled on 09/17; inpatient) [employer] prophylaxis - Alternated IT Methotrexate and IT [...] MD Patient was seen and examined on 09/17/24 [...] Rate Prep and Technique: Usual Standard Manner. Handbag Parts Cutter Prep: [x] Cap, [x] Eye protection, [x] [...] brain is negative for features indicative of [employer] involvement or acute intracranial abnormalities. Scrotal ultrasound showed normal scrotum and testes with no evidence of testicular involvement. 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 Started [...] 375 mg/m2 IV (scheduled on 09/17; inpatient) [employer] prophylaxis - Alternated IT Methotrexate and IT [...] brain is negative for features indicative of [employer] involvement or acute intracranial abnormalities. Scrotal ultrasound showed normal scrotum and testes with no evidence of testicular involvement. 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 Started [...] Rituximab 375 mg/m2 IV (scheduled on 09/17) [employer] prophylaxis - Alternated IT Methotrexate and IT [...] on 09/15/24 Alycia Tena MD PGY-4, Hematology/Oncology [facility] I personally saw and evaluated the patient [...] brain is negative for features indicative of [employer] involvement or acute intracranial abnormalities. Scrotal ultrasound showed normal scrotum and testes with no evidence of testicular involvement. 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 Started [...] Rituximab 375 mg/m2 IV (scheduled on 09/17) [employer] prophylaxis - Alternated IT Methotrexate and IT [...] brain is negative for features indicative of [employer] involvement or acute intracranial abnormalities. Scrotal ultrasound showed normal scrotum and testes with no evidence of testicular involvement. 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 Started [...] Rituximab 375 mg/m2 IV (scheduled on 09/17) [employer] prophylaxis - Alternated IT Methotrexate and IT [...] PRN leucovorin, 25 mg= 1 Tablet(s), Oral, [id number] leucovorin + sodium chloride 0.9% 50 mL, 50 mg = 5 mL, form: Injection, IVPB, Chemo Once, Routine, first dose 09/14/24 7:27:00 [employer], Physician Stop, stop date 09/14/24 7:27:00 [employer], 220 mL/hr, infuse over 15 minute(s), Total volume (mL): 55, Day 1 levoFLOXacin(levoFLOXacin 500 mg oral tablet), 500 mg= 1 Tablet(s), Oral, Daily morphine(MS Contin), 15 mg= 1 Tablet(s), Oral, bid ondansetron(ondansetron 4 mg oral tablet, disintegrating), 8 mg= 2 Tablet(s), Oral, tid oxyCODONE(_oxyCODONE 5 mg oral tablet), 5 mg= 1 Tablet(s), Oral, q6h, PRN prochlorperazine, 10 mg= 2 mL, IV, [id number]-wimxndlv, PRN prochlorperazine, 10 mg= 1 Tablet(s), Oral, tid sertraline(Zoloft), 50 mg= 1 Tablet(s), Oral, Daily sodium bicarbonate(sodium bicarbonate PO), 1300 mg= 2 Tablet(s), Oral, b4h-vcflnntk, PRN sodium bicarbonate 150 mEq + sterile water 1,000 mL(sodium bicarb for IV infusion 150 mEq + sterile water 1,000 mL), Total volume (mL): 1,150, Injection, IV, Rate: 200 mL/hr, Start date: 09/12/24 13:56:00 [employer], Stop date: 09/19/24 13:27:00 [employer], Day 1 Home acetaminophen(acetaminophen 500 mg oral [...] 08/20/2024 Cycle 4B Day 1 on 09/12/2024. [employer] prophylaxis Alternating IT Methotrexate and IT cytarabine [...] brain is negative for features indicative of [employer] involvement or acute intracranial abnormalities. Scrotal ultrasound showed normal scrotum and testes with no evidence of testicular involvement. 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 Started [...] 6 mg SC once on Day 5. [employer] prophylaxis - Alternating IT Methotrexate and IT [...] mg = 30 mL, form: Injection, IVPB, [id number], Routine, first dose 09/16/24 12:00:00 [employer], order duration: 2 dose(s), Physician Stop, stop date 09/17/24 0:00:00 [employer], 265 mL/hr, infuse over 2 hour(s), Total volume (mL): 530, Day 3 dexAMETHAsone(dexAMETHAsone po), 4 mg= 1 Tablet(s), Oral, b27z-fjqlwkyu dexamethasone ophthalmic(dexAMETHasone 0.1% ophthalmic solution), 2 Drop(s), Each Eye, x4f-lhiajffp enoxaparin(enoxaparin - prophylactic dosing), 40 mg= 0.4 [...] ondansetron(ondansetron oral), 8 mg= 1 Tablet(s), Oral, [id number]-gnhjanqz oxyCODONE(_oxyCODONE 5 mg oral tablet), 5 mg= 1 Tablet(s), Oral, q4h, PRN pantoprazole(pantoprazole oral), 40 mg= 2 Tablet(s), Oral, Daily prochlorperazine(prochlorperazine 10 mg oral tablet), 10 mg= 1 Tablet(s), Oral, tid, 1 refills prochlorperazine, 10 mg= 2 mL, IV, n9g-tlkjtuzl, PRN prochlorperazine, 10 mg= 1 Tablet(s), Oral, [...] brain is negative for features indicative of [employer] involvement or acute intracranial abnormalities. Scrotal ultrasound showed normal scrotum and testes with no evidence of testicular involvement. 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 Started [...] before discharge. To be administered on 08/24. [employer] prophylaxis - Alternating IT Methotrexate and IT [...] brain is negative for features indicative of [employer] involvement or acute intracranial abnormalities. Scrotal ultrasound showed normal scrotum and testes with no evidence of testicular involvement. 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 Started [...] before discharge. To be administered on 08/24. [employer] prophylaxis - Alternating IT Methotrexate and IT [...] brain is negative for features indicative of [employer] involvement or acute intracranial abnormalities. Scrotal ultrasound showed normal scrotum and testes with no evidence of testicular involvement. 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 Started [...] ANC greater than 1000/uL VS outpatient Neulasta. [employer] prophylaxis - Alternating IT Methotrexate and IT [...] brain is negative for features indicative of [employer] involvement or acute intracranial abnormalities. Scrotal ultrasound showed normal scrotum and testes with no evidence of testicular involvement. 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 Started [...] ANC greater than 1000/uL VS outpatient Neulasta. [employer] prophylaxis - Alternating IT Methotrexate and IT [...] Result Date/Time WBC 5.80 x10(9)/L 07/24/2024 05:28 [employer] HGB 9.8 g/dL 07/24/2024 05:28 [employer] HCT 30.3 % 07/24/2024 05:28 [employer] MCV 94.4 fL 07/24/2024 05:28 [employer] PLT 195 x10(9)/L 07/24/2024 05:28 [employer] Sodium 142 mmol/L 07/23/2024 02:28 [employer] Potassium 3.8 mmol/L 07/23/2024 02:28 [employer] Chloride 103 mmol/L 07/23/2024 02:28 [employer] CO2 33 mmol/L 07/23/2024 02:28 [employer] Glucose Lvl 125 mg/dL 07/23/2024 02:28 [employer] BUN 5 mg/dL 07/23/2024 02:28 [employer] Creatinine, standardized 0.5 mg/dL 07/23/2024 02:28 [employer] T Bili 0.50 mg/dL 07/23/2024 02:28 [employer] Alkaline Phosphatase 101 U/L 07/23/2024 02:28 [employer] AST-SGOT 71 U/L 07/23/2024 02:28 [employer] ALT-SGPT 175 U/L 07/23/2024 02:28 [employer] Assessment/Plan Patient Summary Primary Oncologist: Dr. Barrientos [...] Badillo MD PGY4 Hematology Oncology Fellow [facility] Addendum: Patient examined on 05/24/[address] [...] Result Date/Time WBC 5.74 x10(9)/L 07/23/2024 02:28 [employer] HGB 10.2 g/dL 07/23/2024 02:28 [employer] HCT 31.4 % 07/23/2024 02:28 [employer] MCV 92.1 fL 07/23/2024 02:28 [employer] PLT 230 x10(9)/L 07/23/2024 02:28 [employer] Absolute Granulocytes 5.20 x10(9)/L 07/23/2024 02:28 [employer] Sodium 142 mmol/L 07/23/2024 02:28 [employer] Potassium 3.8 mmol/L 07/23/2024 02:28 [employer] Chloride 103 mmol/L 07/23/2024 02:28 [employer] CO2 33 mmol/L 07/23/2024 02:28 [employer] Glucose Lvl 125 mg/dL 07/23/2024 02:28 [employer] BUN 5 mg/dL 07/23/2024 02:28 [employer] Creatinine, standardized 0.5 mg/dL 07/23/2024 02:28 [employer] Calcium 9.5 mg/dL 07/23/2024 02:28 [employer] T Bili 0.50 mg/dL 07/23/2024 02:28 [employer] Alkaline Phosphatase 101 U/L 07/23/2024 02:28 [employer] AST-SGOT 71 U/L 07/23/2024 02:28 [employer] ALT-SGPT 175 U/L 07/23/2024 02:28 [employer] Assessment/Plan Patient Summary Primary Oncologist: Dr. Barrientos [...] Badillo MD PGY4 Hematology Oncology Fellow [facility] Addendum: Patient seen and examined on 07/23/24 [...] Result Date/Time WBC 3.34 x10(9)/L 07/22/2024 02:36 [employer] HGB 9.8 g/dL 07/22/2024 02:36 [employer] HCT 30.6 % 07/22/2024 02:36 [employer] MCV 93.9 fL 07/22/2024 02:36 WHAR[employer] PLT 205 x10(9)/L 07/22/2024 02:36 WH[employer] Absolute Granulocytes 2.10 x10(9)/L 07/22/2024 02:36 [employer] Sodium 143 mmol/L 07/22/2024 02:36 [employer] Potassium 3.4 mmol/L 07/22/2024 02:36 [employer] Chloride 105 mmol/L 07/22/2024 02:36 WHAR[employer]ER CO2 35 mmol/L 07/22/2024 02:36 [employer]ER Glucose Lvl 106 mg/dL 07/22/2024 02:36 [employer] BUN <5 mg/dL 07/22/2024 02:36 [employer] Creatinine, standardized 0.5 mg/dL 07/22/2024 02:36 [employer] Calcium 8.7 mg/dL 07/22/2024 02:36 [employer] Magnesium 1.50 mg/dL 07/22/2024 02:36 [employer] Phosphorus 4.0 mg/dL 07/22/2024 02:36 WHAR[employer] T Bili 0.39 mg/dL 07/22/2024 02:36 [employer] Alkaline Phosphatase 97 U/L 07/22/2024 02:36 [employer] AST-SGOT 89 U/L 07/22/2024 02:36 [employer] ALT-SGPT 185 U/L 07/22/2024 02:36 [employer]ER Diagnostic Results FINAL DIAGNOSIS CEREBROSPINAL FLUID: Negative for Acute Leukemia. Please see previous material ([id number], [id number], [id number], [id number]) Diagnosis Comment Microscopic description: Review of Luo [...] Badillo MD PGY4 Hematology Oncology Fellow [facility] [1] [facility]; Mrogan BRISCOE, Susy 07/20/2024 14:18 CDT I personally [...] as indicated. Jaden Lin MD/FACP Shannan Jimenez Director Of Event Sales of Clinical Medicine Mica Paster for DIRECTOR AMBULATORY and Chair of Breast DWG 07/22/2024 Hem [...] immediately as indicated. Jaden Lin MD/BRIELLE Jimenez Director Of Event Sales of Clinical Medicine Mica Paster for DIRECTOR AMBULATORY and Chair of Breast DWG 07/21/2024 Hem [...] Badillo MD PGY 4 hematology oncology fellow [facility] I personally saw and evaluated the patient on 07/20/24. I independently performed the critical/rush portions of the Evaluation and Management service and discussed the management with the author of this document. I agree with everything documented above except as may be indicated otherwise in my comments. Dr. Barrietnos has been in charge of the patient's chemotherapy plan and overall management of this case and receives regular updates about his patients including Mr. Regalado's today and immediately as indicated. Jaden Lin MD/BRIELLE Jimenez Director Of Event Sales of Clinical Medicine Mica Paster for DIRECTOR AMBULATORY and Chair of Breast DWG 07/20/2024 Hem Oncology IM Consult Note Chief Compl aint Planned admission for HyperCVAD Part B Reason for Consultation Acute lymphoblastic leukemia B-cell Requesting Provider Dr. Dario Madsen History of Present Illness Mr. Couch is a 24-year-old gentleman who follows with Dr. Barrientos at [facility] for a diagnosis of B-cell acute lymphoblastic [...] MD PGY 4 hematology oncology fellow [facility] Problem List/Past Medical History Ongoing B-cell acute [...] be indicated otherwise in my comments. Dr. Barrinetos has been in charge of the patient's chemotherapy plan and overall management of this case and receives regular updates about his patients including Mr. Regalado's today and immediately as indicated. Jaden Lin MD/FACP Shannan Jimenez Director Of Event Sales of Clinical Medicine Mica Paster for DIRECTOR AMBULATORY and Chair of Breast DWG 07/19/2024 Hem [...] lidocaine 5% topical film: 1 Patch Transdermal [id number] Cathflo Activase: 2mg 2 mL Catheter Dwell [...] brain is negative for features indicative of [employer] involvement or acute intracranial abnormalities. Scrotal ultrasound showed normal scrotum and testes with no evidence of testicular involvement. 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 Started [...] ANC greater than 1000/uL VS outpatient Neulasta. [employer] prophylaxis - Alternating IT Methotrexate and IT [...] lidocaine 5% topical film: 1 Patch Transdermal [id number] Cathflo Activase: 2mg 2 mL Catheter Dwell [...] brain is negative for features indicative of [employer] involvement or acute intracranial abnormalities. Scrotal ultrasound showed normal scrotum and testes with no evidence of testicular involvement. 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 Started [...] ANC greater than 1000/uL VS outpatient Neulasta. [employer] prophylaxis - Alternating IT Methotrexate and IT [...] 3B. Patient seen and staffed with Dr. Jaylen Serrano spent a total time of 30 minutes [...] brain is negative for features indicative of [employer] involvement or acute intracranial abnormalities. Scrotal ultrasound showed normal scrotum and testes with no evidence of testicular involvement. 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 Started [...] MTX and cytarabine, cycle 3A initiated on 10/10 (Day 3 today) - Cyclophosphamide (Cytoxan) 300 [...] ANC greater than 1000/uL VS outpatient Neulasta. [employer] prophylaxis - Alternating IT Methotrexate and IT [...] 3B. Patient seen and staffed with Dr. Jaylen Serrano spent a total time of 30 minutes [...] brain is negative for features indicative of [employer] involvement or acute intracranial abnormalities. Scrotal ultrasound showed normal scrotum and testes with no evidence of testicular involvement. 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 Started [...] MTX and cytarabine, cycle 3A initiated on 10/10 (Day 2 today) - Cyclophosphamide (Cytoxan) 300 [...] ANC greater than 1000/uL VS outpatient Neulasta. [employer] prophylaxis - Alternating IT Methotrexate and IT [...] ondansetron oral, 16 mg= 2 Tablet(s), Oral, [id number] ondansetron oral, 16 mg= 2 Tablet(s), Oral, [id number] ondansetron oral, 16 mg= 2 Tablet(s), Oral, [id number] ondansetron oral, 16 mg= 2 Tablet(s), Oral, Chemo Once oxyCODONE 5 mg oral tablet, 5 mg= 1 Tablet(s), Oral, q6h, PRN pegfilgrastim, 6 mg= 0.6 mL, Subcutaneous, Once prochlorperazine, 10 mg= 2 mL, IV Push, [id number], PRN prochlorperazine, 10 mg= 1 Tablet(s), Oral, tid, PRN prochlorperazine, 10 mg= 2 mL, IV Push, [id number], PRN prochlorperazine 10 mg oral tablet, 10 [...] patient was seen on 06/28/2024 . 06/28/2024 Discharge Summaries Results Value Date Source Discharge [...] BRAULIO CASSIDY Date: 09/18/24, Disposition: Home/Self Care, [place] Attending: Dario Madsen DO, [place] Summary Provider: Dario Madsen DO, Please do not discharge until patient has Neulast in hand for sister to administer at home to... Remove PICC line, 09/18/24 10:46:00 WHARF LABORER Once Other Diagnoses Ongoing B-cell acute lymphoblastic leukemia Intellectual disability Operations and Procedures Consultants Inpt Interventional Radiology Pending Labs Chromosome Analysis, Hematologic Disorders, Bone Marrow-[place] (In Process, InProcess, ordered 09/16/2024, 14:11) Discharge [...] Orders Regular Diet. Ordered on 09/16/24 15:00:00 WHARF LABORER, Meal Start Time Lunch 1115 to 1245 Activity As Tolerated. 09/12/24 11:54:00 WHARF LABORER, Continuous Order 09/18/2024 Discharge Summary Date of [...] Status Infusion - CA5 08/30/2024 08:30 AM WHARF LABORER [facility] [place], [place] [id number]- Confirmed Lab Peripheral IV 09/10/2024 12:30 PM WHARF LABORER [facility] [place] [place] [address]- Confirmed PEN RULER OPERATOR 09/10/2024 01:30 PM WHARF LABORER Nancy Clark [facility] [place] [address]- Confirmed Nursing/Other Orders Regular Diet. Ordered on 08/19/24 15:33:00 WHARF LABORER, Meal Start Time Breakfast 0700 to 0900 Activity, Prone Position (Position, Prone). Start Date/Time: 08/20/24 13:49:00 WHARF LABORER, Special Instructions Patient to remain in a prone position for approximately 30 minutes after administration if possible. Activity, Prone Position (Position, Prone). * Est. Start Date/Time: 08/23/24 10:26:00 WHARF LABORER, Special Instructions Patient to remain in a prone position for approximately 30 minutes after administration if possible. (Future) Out of Bed Activity. 08/19/24 15:33:00 WHARF LABORER Out of Bed to Chair, tid w/Meals [...] Lab Draw w/ Port 07/26/2024 09:00 AM WHARF LABORER [facility] [place] [address]- Confirmed Infusion - CA7 07/26/2024 10:00 AM WHARF LABORER [facility] [place] [address]- Confirmed Nursing/Other Orders Activity, Prone Position (Position, Prone). Start Date/Time: 07/20/24 13:11:00 CDT, Special Instructions Patient to remain in a prone position for approximately 30 minutes after administration if possible. Activity, Prone Position (Position, Prone). * Est. Start Date/Time: 07/23/24 7:58:00 WHARF LABORER, Special Instructions Patient to remain in a prone position for approximately 30 minutes after administration if possible. (Future) Activity, Prone Position (Position, Prone). * Est. Start Date/Time: 07/26/24, Special Instructions Patient to remain in a prone position for approximately 30 minutes after administration if possible. (Future) Activity, Prone Position (Position, Prone). * Est. Start Date/Time: 07/26/24 8:00:00 WHARF LABORER, Special Instructions Patient to remain in a prone position for approximately 30 minutes after administration if possible. (Future) Activity, Prone Position (Position, Prone). * Est. Start Date/Time: 07/29/24 8:00:00 WHARF LABORER, Special Instructions Patient to remain in a [...] lymphoblastic leukemia Intellectual disability Pending Labs Cytology, Non-BEAD WRAPPER (Coolin, Wash, Fluids, etc) (In Process, InProcess, ordered 06/28/2024, 14:07) Cytology, Non-BEAD WRAPPER (Coolin, Wash, Fluids, etc) (Ordered, Ordered 07/01/2024, 12:54) [...] Infusion - CA7 07/03/2024 08:00 AM CDT [facility] [place] [address]- Confirmed Nursing/Other Orders Regular Diet. Ordered on [...] set up for patient to return to [facility] on 07/08. 07/01/2024 Discharge Summary Date [...] lend their car). Ride was arranged with long term care social worker to patient's home. Patient received IT chemo [...] bid, # 60 capsule(s), Refill(s) 0, Pharmacy: [facility], 182.8, cm, 06/03/24 22:36:00 CDT, Height (cm), kg, 05/27/24 14:28:00 CDT, Weight (kg), 71.5 levoFLOXacin, 500 mg = 1 Tablet(s), Oral, Daily, # 30 Tablet(s), Refill(s) 0, Pharmacy: [facility], bedside delivery, 182.8, cm, 06/03/24 22:36:00 CDT, Height (cm), kg, 05/27/24 14:28:00 CDT, Weight (kg), 71.5 Carcinomatosis Leukemia Ordered: acyclovir, 400 mg = 2 capsule(s), Oral, bid, # 60 capsule(s), Refill(s) 0, Pharmacy: [facility], 182.8, cm, 06/03/24 22:36:00 CDT, Height (cm), kg, 05/27/24 14:28:00 CDT, Weight (kg), 71.5 Orders: filgrastim, 480 mcg = 0.8 mL, Subcutaneous, q24h, # 1 mL, Refill(s) 0, 06/05/24, Pharmacy: [facility], 182.8, cm, 06/03/24 22:36:00 CDT, Height (cm), kg, 05/27/24 14:28:00 CDT, Weight (kg), 71.5 fluconazole, 400 mg = 2 Tablet(s), Oral, Daily, # 30 Tablet(s), Refill(s) 0, [facility], bedside delivery, 182.8, cm, 06/03/24 22:36:00 CDT, Height (cm), kg, 05/27/24 14:28:00 CDT, Weight (kg), 71.5 B-Cell ALL Elevated LFTs (improving) Constipation Other Diagnoses Ongoing B-cell acute lymphoblastic leukemia Intellectual disability Historical No qualifying data Operations and Procedures Consultants Pending Labs Cytology, Non-BEAD WRAPPER (Coolin, Wash, Fluids, etc) (In Process, InProcess, ordered [...] 06/10/2024 10:30 AM CDT Marcio Mansfield MD [facility] [place] [address] Confirmed No qualifying data available [...] chemo CODE: Full Pt staffed with Dr Kirkland. Problem List/Past Medical History Ongoing B-cell acute [...] PRN leucovorin, 25 mg= 1 Tablet(s), Oral, [id number] leucovorin + sodium chloride 0.9% 50 mL, 50 mg = 5 mL, form: Injection, IVPB, Chemo Once, Routine, first dose 09/14/24 7:27:00 WHARF LABORER, Physician Stop, stop date 09/14/24 7:27:00 WHARF LABORER, 220 mL/hr, infuse over 15 minute(s), Total volume (mL): 55, Day 1 levoFLOXacin(levoFLOXacin 500 mg oral tablet), 500 mg= 1 Tablet(s), Oral, Daily methotrexate + Dextrose 5% in Water 1,000 mL, 2,000 mg = 80 mL, form: Injection, IVPB, Chemo Once, Routine, first dose 09/12/24 19:28:00 WHARF LABORER, Physician Stop, stop date 09/12/24 19:28:00 WHARF LABORER, 45 mL/hr, infuse over 24 hour(s), 1,080, Day 1, Leukemia morphine(MS Contin), 15 mg= 1 Tablet(s), Oral, bid ondansetron(ondansetron oral), 24 mg= 3 Tablet(s), Oral, Chemo Once ondansetron(ondansetron 4 mg oral tablet, disintegrating), 8 mg= 2 Tablet(s), Oral, tid oxyCODONE(_oxyCODONE 5 mg oral tablet), 5 mg= 1 Tablet(s), Oral, q6h, PRN prochlorperazine, 10 mg= 2 mL, IV, [id number], PRN prochlorperazine, 10 mg= 1 Tablet(s), Oral, tid sertraline(Zoloft), 50 mg= 1 Tablet(s), Oral, Daily sodium bicarbonate(sodium bicarbonate PO), 1300 mg= 2 Tablet(s), Oral, [id number], PRN sodium bicarbonate 150 mEq + sterile water 1,000 mL(sodium bicarb for IV infusion 150 mEq + sterile water 1,000 mL), Total volume (mL): 1,150, Injection, IV, Rate: 200 mL/hr, Start date: 09/12/24 13:56:00 WHARF LABORER, Stop date: 09/19/24 13:27:00 WHARF LABORER, Day 1 Time Zero, 1 Each, Message, [...] chest pain or SOB. He does endorse 7-8/10 in his lower back and requests Dilaudid. [...] to come to the hospital for chemotherapy. manager budget can arrange Medicare right which can be [...] to come to the hospital for chemotherapy. manager budget can arrange Medicare right which can be [...] mg = 30 mL, form: Injection, IVPB, [id number], Routine, first dose 06/27/24 17:00:00 CDT, order [...] ondansetron(ondansetron oral), 16 mg= 2 Tablet(s), Oral, [id number] oxyCODONE(oxyCODONE 5 mg oral tablet), 5 mg= [...] Source Respiratory Rate 14 breaths/min 11/12/2024 17:27:13 [facility] Mean NIBP 88 mm[Hg] 11/12/2024 17:27:13 [facility] Heart Rate 82 bpm 11/12/2024 17:27:13 [facility] SpO2 98 % 11/12/2024 17:27:13 [facility] Temperature (Celsius) 36.5 Cheri 11/12/2024 17:27:13 [facility] NIBP 121 mm[Hg] 11/12/2024 17:27:13 [facility] DBP NIBP 72 mm[Hg] 11/12/2024 17:27:13 [facility] NIBP 116 mm[Hg] 10/25/2024 15:13:00 [facility] DBP NIBP 71 mm[Hg] 10/25/2024 15:13:00 [facility] Heart Rate 88 bpm 10/25/2024 15:13:00 [facility] Weight (kg) 80.8 kg 10/25/2024 15:13:00 [facility] Temperature (Celsius) 36.9 Cheri 10/25/2024 15:13:00 [facility] SpO2 99 % 10/25/2024 15:13:00 [facility] Respiratory Rate 16 breaths/min 09/18/2024 14:11:21 [facility] SpO2 97 % 09/18/2024 14:11:21 [facility] SBP NIBP 122 mm[Hg] 09/18/2024 14:11:21 [facility] DBP NIBP 76 mm[Hg] 09/18/2024 14:11:21 [facility] Mean NIBP 91 mm[Hg] 09/18/2024 14:11:21 [facility] Heart Rate 98 bpm 09/18/2024 14:11:21 [facility] Temperature (Celsius) 36.7 Cheri 09/18/2024 14:11:21 [facility] Temperature (Celsius) 36.9 Cheri 09/18/2024 11:27:18 [facility] Respiratory Rate 16 breaths/min 09/18/2024 11:27:18 [facility] SBP NIBP 113 mm[Hg] 09/18/2024 11:27:18 [facility] DBP NIBP 65 mm[Hg] 09/18/2024 11:27:18 [facility] Mean NIBP 81 mm[Hg] 09/18/2024 11:27:18 [facility] SpO2 98 % 09/18/2024 11:27:18 [facility] Heart Rate 92 bpm 09/18/2024 11:27:18 [facility] Heart Rate 88 bpm 09/18/2024 06:56:22 [facility] Temperature (Celsius) 36.6 Cheri 09/18/2024 06:56:22 [facility] SpO2 99 % 09/18/2024 06:56:22 [facility] Respiratory Rate 15 breaths/min 09/18/2024 06:56:22 [facility] SBP NIBP 134 mm[Hg] 09/18/2024 06:56:22 [facility] DBP NIBP 75 mm[Hg] 09/18/2024 06:56:22 [facility] Mean NIBP 95 mm[Hg] 09/18/2024 06:56:22 [facility] Height (cm) 182.8 cm 09/18/2024 02:00:00 [facility] SpO2 99 % 09/18/2024 01:48:20 [facility] Heart Rate 90 bpm 09/18/2024 01:48:20 [facility] Temperature (Celsius) 36.8 Cheri 09/18/2024 01:48:20 [facility] Respiratory Rate 16 breaths/min 09/18/2024 01:48:20 [facility] SBP NIBP 102 mm[Hg] 09/18/2024 01:48:20 [facility] DBP NIBP 63 mm[Hg] 09/18/2024 01:48:20 [facility] Mean NIBP 76 mm[Hg] 09/18/2024 01:48:20 [facility] Height (cm) 182.8 cm 09/17/2024 14:34:00 [facility] Height (cm) 182.8 cm 09/16/2024 15:00:00 [facility] Height (cm) 182.8 cm 09/15/2024 15:00:00 [facility] BMI 21.5 kg/m2 09/12/2024 18:02:00 [facility] Weight (kg) 71.7 kg 09/12/2024 18:02:00 [facility] Heart Rate 137 bpm 09/12/2024 16:42:00 [facility] Weight (kg) 71.7 kg 09/12/2024 16:42:00 [facility] SBP NIBP 119 mm[Hg] 09/12/2024 16:42:00 [facility] DBP NIBP 82 mm[Hg] 09/12/2024 16:42:00 [facility] SpO2 96 % 09/12/2024 16:42:00 [facility] Temperature (Celsius) 36.7 Cheri 09/12/2024 16:42:00 [facility] SBP NIBP 118 mm[Hg] 09/03/2024 19:40:55 [facility] DBP NIBP 65 mm[Hg] 09/03/2024 19:40:55 [facility] Heart Rate 89 bpm 09/03/2024 19:40:55 [facility] Mean NIBP 83 mm[Hg] 09/03/2024 19:40:55 [facility] SBP NIBP 109 mm[Hg] 09/03/2024 18:44:45 [facility] DBP NIBP 60 mm[Hg] 09/03/2024 18:44:45 [facility] Heart Rate 92 bpm 09/03/2024 18:44:45 [facility] Mean NIBP 76 mm[Hg] 09/03/2024 18:44:45 [facility] SBP NIBP 122 mm[Hg] 09/03/2024 18:14:48 [facility] DBP NIBP 41 mm[Hg] 09/03/2024 18:14:48 [facility] Heart Rate 94 bpm 09/03/2024 18:14:48 [facility] Mean NIBP 68 mm[Hg] 09/03/2024 18:14:48 [facility] SBP NIBP 113 mm[Hg] 09/03/2024 17:41:21 [facility] DBP NIBP 66 mm[Hg] 09/03/2024 17:41:21 [facility] Mean NIBP 82 mm[Hg] 09/03/2024 17:41:21 [facility] Heart Rate 86 bpm 09/03/2024 17:41:21 [facility] SpO2 98 % 09/03/2024 16:26:17 [facility] Respiratory Rate 16 breaths/min 09/03/2024 16:26:17 [facility] Weight (kg) 74.5 kg 09/03/2024 16:26:17 [facility] Temperature (Celsius) 36.2 Cheri 09/03/2024 16:26:00 [facility] Height (cm) 182.8 cm 09/03/2024 16:10:00 [facility] Mean NIBP 97 mm[Hg] 08/23/2024 14:00:00 [facility] SBP NIBP 133 mm[Hg] 08/23/2024 14:00:00 [facility] DBP NIBP 79 mm[Hg] 08/23/2024 14:00:00 [facility] Heart Rate 80 bpm 08/23/2024 14:00:00 [facility] Temperature (Celsius) 36.6 Cheri 08/23/2024 14:00:00 [facility] SpO2 99 % 08/23/2024 14:00:00 [facility] Respiratory Rate 16 breaths/min 08/23/2024 14:00:00 [facility] Respiratory Rate 16 breaths/min 08/23/2024 10:23:08 [facility] SBP NIBP 116 mm[Hg] 08/23/2024 10:23:08 [facility] DBP NIBP 55 mm[Hg] 08/23/2024 10:23:08 [facility] Mean NIBP 75 mm[Hg] 08/23/2024 10:23:08 [facility] Heart Rate 74 bpm 08/23/2024 10:23:08 [facility] Temperature (Celsius) 36.7 Cheri 08/23/2024 10:23:08 [facility] SpO2 98 % 08/23/2024 10:23:08 [facility] SBP NIBP 105 mm[Hg] 08/23/2024 05:00:00 [facility] DBP NIBP 59 mm[Hg] 08/23/2024 05:00:00 [facility] SpO2 96 % 08/23/2024 05:00:00 [facility] Temperature (Celsius) 36.5 Cheri 08/23/2024 05:00:00 [facility] Respiratory Rate 14 breaths/min 08/23/2024 05:00:00 [facility] Heart Rate 68 bpm 08/23/2024 05:00:00 [facility] SBP NIBP 108 mm[Hg] 08/23/2024 03:08:17 [facility] DBP NIBP 58 mm[Hg] 08/23/2024 03:08:17 [facility] Mean NIBP 75 mm[Hg] 08/23/2024 03:08:17 [facility] SpO2 98 % 08/23/2024 03:08:17 [facility] Heart Rate 75 bpm 08/23/2024 03:08:17 [facility] Temperature (Celsius) 36.7 Cheri 08/23/2024 03:08:17 [facility] Respiratory Rate 16 breaths/min 08/23/2024 03:08:17 [facility] Mean NIBP 99 mm[Hg] 08/22/2024 18:05:15 [facility] BMI 22.4 kg/m2 08/19/2024 18:03:00 [facility] Height (cm) 182.8 cm 08/19/2024 18:03:00 [facility] Weight (kg) 74.7 kg 08/19/2024 18:03:00 [facility] BSA Negin 1.96 08/19/2024 18:03:00 [facility] Weight (kg) 74.7 kg 08/19/2024 18:00:00 [facility] SBP NIBP 110 mm[Hg] 07/26/2024 19:23:58 [facility] DBP NIBP 69 mm[Hg] 07/26/2024 19:23:58 [facility] Mean NIBP 82 mm[Hg] 07/26/2024 19:23:58 [facility] Heart Rate 93 bpm 07/26/2024 19:23:58 [facility] SBP NIBP 102 mm[Hg] 07/26/2024 18:03:37 [facility] DBP NIBP 64 mm[Hg] 07/26/2024 18:03:37 [facility] Mean NIBP 77 mm[Hg] 07/26/2024 18:03:37 [facility] Heart Rate 77 bpm 07/26/2024 18:03:37 [facility] Temperature (Celsius) 36.8 Cheri 07/26/2024 18:03:37 [facility] SBP NIBP 119 mm[Hg] 07/26/2024 17:28:31 [facility] DBP NIBP 78 mm[Hg] 07/26/2024 17:28:31 [facility] Mean NIBP 92 mm[Hg] 07/26/2024 17:28:31 [facility] Heart Rate 89 bpm 07/26/2024 17:28:31 [facility] Temperature (Celsius) 36.7 Cheri 07/26/2024 17:28:31 [facility] SBP NIBP 106 mm[Hg] 07/26/2024 16:52:21 [facility] DBP NIBP 67 mm[Hg] 07/26/2024 16:52:21 [facility] Mean NIBP 80 mm[Hg] 07/26/2024 16:52:21 [facility] 108 bpm 07/26/2024 16:52:21 [facility] SpO2 99 % 07/26/2024 16:52:21 [facility] Temperature (Celsius) 36.7 Cheri 07/26/2024 16:52:21 [facility] SpO2 99 % 07/24/2024 19:31:46 [facility] Temperature (Celsius) 36.8 Cheri 07/24/2024 19:31:46 [facility] Respiratory Rate 18 breaths/min 07/24/2024 19:31:46 [facility] SBP NIBP 100 mm[Hg] 07/24/2024 19:31:46 [facility] DBP NIBP 55 mm[Hg] 07/24/2024 19:31:46 [facility] Heart Rate 78 bpm 07/24/2024 19:31:46 [facility] Mean NIBP 70 mm[Hg] 07/24/2024 19:31:46 [facility] Respiratory Rate 18 breaths/min 07/24/2024 15:58:42 [facility] SBP NIBP 108 mm[Hg] 07/24/2024 15:58:42 [facility] DBP NIBP 67 mm[Hg] 07/24/2024 15:58:42 [facility] Temperature (Celsius) 36.7 Cheri 07/24/2024 15:58:42 [facility] Mean NIBP 80 mm[Hg] 07/24/2024 15:58:42 [facility] SpO2 98 % 07/24/2024 15:58:42 [facility] Heart Rate 79 bpm 07/24/2024 15:58:42 [facility] Heart Rate 82 bpm 07/24/2024 08:46:36 [facility] Mean NIBP 77 mm[Hg] 07/24/2024 08:46:36 [facility] Temperature (Celsius) 36.6 Cheri 07/24/2024 08:46:36 [facility] SpO2 98 % 07/24/2024 08:46:36 [facility] SBP NIBP 103 mm[Hg] 07/24/2024 08:46:36 [facility] DBP NIBP 64 mm[Hg] 07/24/2024 08:46:36 [facility] Respiratory Rate 16 breaths/min 07/24/2024 08:00:00 [facility] Temperature (Celsius) 36.1 Cheri 07/24/2024 06:07:10 [facility] SpO2 98 % 07/24/2024 06:07:10 [facility] Heart Rate 92 bpm 07/24/2024 06:07:10 [facility] Mean NIBP 83 mm[Hg] 07/24/2024 06:07:10 [facility] SBP NIBP 110 mm[Hg] 07/24/2024 06:07:10 [facility] DBP NIBP 69 mm[Hg] 07/24/2024 06:07:10 [facility] Respiratory Rate 16 breaths/min 07/24/2024 06:00:00 [facility] Unable to Obtain V/S Other: sleeping 07/22/2024 18:00:00 [facility] BSA Negin 1.93 07/19/2024 18:15:00 [facility] Height (cm) 182.8 cm 07/19/2024 18:15:00 [facility] BMI 21.6 kg/m2 07/19/2024 18:15:00 [facility] Weight (kg) 72.1 kg 07/19/2024 18:15:00 [facility] SBP NIBP 111 mm[Hg] 07/08/2024 13:01:24 [facility] DBP NIBP 75 mm[Hg] 07/08/2024 13:01:24 [facility] Mean NIBP 87 mm[Hg] 07/08/2024 13:01:24 [facility] Heart Rate 93 bpm 07/08/2024 13:01:24 [facility] SpO2 98 % 07/08/2024 13:01:24 [facility] Temperature (Celsius) 37.1 Cheri 07/08/2024 13:01:24 [facility] Respiratory Rate 16 breaths/min 07/08/2024 13:01:24 [facility] SBP NIBP 128 mm[Hg] 07/01/2024 21:39:13 [facility] DBP NIBP 76 mm[Hg] 07/01/2024 21:39:13 [facility] Mean NIBP 93 mm[Hg] 07/01/2024 21:39:13 [facility] Heart Rate 70 bpm 07/01/2024 21:39:13 [facility] SpO2 99 % 07/01/2024 21:39:13 [facility] Temperature (Celsius) 37 Cheri 07/01/2024 21:39:13 [facility] Respiratory Rate 16 breaths/min 07/01/2024 21:39:13 [facility] Heart Rate 97 bpm 07/01/2024 18:00:00 [facility] SBP NIBP 132 mm[Hg] 07/01/2024 18:00:00 [facility] DBP NIBP 92 mm[Hg] 07/01/2024 18:00:00 [facility] Mean NIBP 105 mm[Hg] 07/01/2024 18:00:00 [facility] SpO2 99 % 07/01/2024 18:00:00 [facility] SBP NIBP 123 mm[Hg] 07/01/2024 13:59:37 [facility] DBP NIBP 76 mm[Hg] 07/01/2024 13:59:37 [facility] Mean NIBP 92 mm[Hg] 07/01/2024 13:59:37 [facility] Heart Rate 76 bpm 07/01/2024 13:59:37 [facility] SpO2 99 % 07/01/2024 13:59:37 [facility] Temperature (Celsius) 37.3 Cheri 07/01/2024 13:00:00 [facility] Temperature (Celsius) 36.6 Cheri 07/01/2024 09:00:00 [facility] Heart Rate 70 bpm 07/01/2024 09:00:00 [facility] Respiratory Rate 14 07/01/2024 09:00:00 [facility] SBP NIBP 132 mm[Hg] 07/01/2024 09:00:00 [facility] DBP NIBP 70 mm[Hg] 07/01/2024 09:00:00 [facility] SpO2 98 % 07/01/2024 09:00:00 [facility] Dosing Weight (kg) 74.5 kg 07/01/2024 09:00:00 [facility] Height (cm) 182.8 cm 07/01/2024 09:00:00 [facility] Weight (kg) 74.2 kg 07/01/2024 09:00:00 [facility] BMI 22.2 kg/m2 07/01/2024 09:00:00 [facility] Temperature (Celsius) 36.6 Cheri 07/01/2024 05:00:00 [facility] Respiratory Rate 14 07/01/2024 05:00:00 [facility] Mean NIBP 94 mm[Hg] 07/01/2024 01:03:36 [facility] Respiratory Rate 14 breaths/min 07/01/2024 01:03:36 [facility] Dosing Weight (kg) 74.5 kg 06/30/2024 09:00:00 [facility] Height (cm) 182.8 cm 06/30/2024 09:00:00 [facility] Weight (kg) 74.1 kg 06/30/2024 09:00:00 [facility] BMI 22.2 kg/m2 06/30/2024 09:00:00 [facility] Dosing Weight (kg) 74.5 kg 06/29/2024 09:00:00 [facility] Height (cm) 182.8 cm 06/29/2024 09:00:00 [facility] Weight (kg) 74.3 kg 06/29/2024 09:00:00 [facility] BMI 22.2 kg/m2 06/29/2024 09:00:00 [facility] Weight (kg) 74.5 kg 06/28/2024 09:00:00 [facility] Dosing Weight (kg) 74.5 kg 06/28/2024 09:00:00 [facility] Height (cm) 182.8 cm 06/28/2024 09:00:00 [facility] BMI 22.3 kg/m2 06/28/2024 09:00:00 [facility] SBP NIBP 128 mm[Hg] 06/04/2024 13:44:23 [facility] DBP NIBP 71 mm[Hg] 06/04/2024 13:44:23 [facility] Mean NIBP 90 mm[Hg] 06/04/2024 13:44:23 [facility] Heart Rate 113 bpm 06/04/2024 13:44:23 [facility] SpO2 99 % 06/04/2024 13:44:23 [facility] Respiratory Rate 16 breaths/min 06/04/2024 13:44:23 [facility] Temperature (Celsius) 36.7 Cheri 06/04/2024 09:00:00 [facility] Heart Rate 99 bpm 06/04/2024 09:00:00 [facility] Respiratory Rate 14 breaths/min 06/04/2024 09:00:00 [facility] SBP NIBP 125 mm[Hg] 06/04/2024 09:00:00 [facility] DBP NIBP 71 mm[Hg] 06/04/2024 09:00:00 [facility] Mean NIBP 89 mm[Hg] 06/04/2024 09:00:00 [facility] SpO2 99 % 06/04/2024 09:00:00 [facility] Temperature (Celsius) 36.6 Cheri 06/04/2024 05:00:00 [facility] Heart Rate 112 bpm 06/04/2024 05:00:00 [facility] Respiratory Rate 16 breaths/min 06/04/2024 05:00:00 [facility] SBP NIBP 134 mm[Hg] 06/04/2024 05:00:00 [facility] DBP NIBP 73 mm[Hg] 06/04/2024 05:00:00 [facility] Mean NIBP 93 mm[Hg] 06/04/2024 05:00:00 [facility] SpO2 100 % 06/04/2024 05:00:00 [facility] Temperature (Celsius) 36.7 Cheri 06/04/2024 01:00:00 [facility] Heart Rate 105 bpm 06/04/2024 01:00:00 [facility] Respiratory Rate 16 breaths/min 06/04/2024 01:00:00 [facility] SBP NIBP 139 mm[Hg] 06/04/2024 01:00:00 [facility] DBP NIBP 79 mm[Hg] 06/04/2024 01:00:00 [facility] Mean NIBP 99 mm[Hg] 06/04/2024 01:00:00 [facility] SpO2 100 % 06/04/2024 01:00:00 [facility] Height (cm) 182.8 cm 06/04/2024 01:00:00 [facility] Encounters Location Location Details Encounter Type Encounter Number Reason For Visit Attending Provider ADM Date DC Date Status Source SUGEY Schrader 1st Floor Between Visit [id number] 06/20 17:36 :39 06/21 04:59 :59 [facility] Inpatient [id number] Dario Cale 06/27 18:28 :39 07/01 22:55 :00 [facility] Outpatient [id number] Heikeoswaldo Barrientos 07/08 12:14 :16 07/09 04:59 :59 [facility] Inpatient [id number] Dario Madsen 07/19 18:15 :17 07/24 21:08 :00 [facility] EF-BLOOD DRAW Outpatient [id number] Heikeoswaldo Barrientos 07/26 14:38 :27 07/27 05:59 :59 [facility] [id number] Heikeoswaldo Barrientos 07/26 14:39 :04 07/27 05:59 :59 [facility] Non-Admit [id number] Ginny Mela 08/09 15:47 :09 08/10 05:59 :59 [facility] Inpatient [id number] B CELL ALL Dario Cale 08/19 12:02 :42 08/23 16:45 :00 Active [facility] EFC [facility]U Outpatient [id number] Heikeoswaldo Barrientos 09/03 15:38 :16 09/04 05:59 :59 [facility] EF-BLOOD DRAW Outpatient [id number] Heikeoswaldo Barrientos 09/12 14:59 :19 09/13 05:59 :59 [facility] [id number] Heikeoswaldo Barrientos 09/12 14:59 :54 09/13 05:59 :59 [facility] Inpatient [id number] Kyaw Isael 09/12 18:01 :07 09/18 19:05 :00 [facility] EF-BLOOD DRAW Outpatient [id number] Heikeoswaldo Barrientos 10/25 13:35 :55 10/26 05:59 :59 [facility] [id number] Heikeoswaldo Barrientos 10/25 13:36 :38 10/26 05:59 :59 [facility] [id number] [facility] 21:25 :03 11/07 05:59 :59 [facility]U Outpatient [id number] [facility]12 16:10 :56 11/13 05:59 :59 [facility] EF-BLOOD DRAW Outpatient [id number] [facility] 02/28 15:17 :28 03/01 04:59 :59 [facility] [id number] [facility] 02/28 15:18 :04 03/01 04:59 :59 [facility] EF-BLOOD DRAW Outpatient [id number] [facility] 04/18 13:35 :11 04/19 04:59 :59 [facility] [id number] Vero Sainz 04/18 13:35 :58 04/19 04:59 :59 [facility] Procedures Procedure Code Date Perfomer Comments Source ear tubes [facility]lectomy [facility] Plan of Care Plan of Care Date Source No data available for this section 04/19/2025 [facility] Social [facility] Social History Date Source No data available for this section 04/19/2025 [facility] No data available for this section 03/01/2025 [facility] No data available for this section 11/13/2024 [facility] No data available for this section 11/07/2024 [facility] No data available for this section 10/26/2024 [facility] No data available for this section 09/18/2024 [facility] No data available for this section 09/13/2024 [facility] No data available for this section 09/04/2024 [facility] No data available for this section 08/23/2024 [facility] No data available for this section 08/10/2024 [facility] No data available for this section 07/27/2024 [facility] No data available for this section 07/24/2024 [facility] No data available for this section 07/09/2024 [facility] No data available for this section 07/01/2024 [facility] No data available for this section 06/21/2024 [facility] No data available for this section 06/04/2024 [facility]
[2025-06-03] VITALS (7 sets, daily range): BP systolic 122–134; BP diastolic 65–97; PULSE 70–99; RESP 15–18; TEMP 36.8; O2SAT 91–100; BMI 22.8
--- NOTE | 2025-06-03 20:07 | ED_ITS ---
HPI - Fever 2 General: Chief Complaint: Fever Stated Complaint: Fever, back pain Time Seen by Provider: 06/03/25 19:58 History of Present Illness: 25-year-old male with a history of ALL w ho presents to the emergency room with fever and low back pain. He had been to clinic earlier today with a chief complaint of low back pain. He has been having pain at T12-L1 and 2. Is shooting pain that radiates down legs and up his back. No trauma. But also he has been out of his morphine for about a week. He had a CT done recently that showed some patchy sclerosis in the T12 vertebral body and pelvic bones. That might include some musculoskeletal involvement of leukemia. A nonemergent MRI was recommended and was planning on being done. He has not had his methotrexate or mercaptopurine for 3 days. He has had some intermittent bruising. He is on prophylactic Bactrim. He received transfusion of platelets today for thrombocytopenia. His ANC is 20 today and he was given Invanz 1 g for ear infection. This afternoon he developed a fever of 100.6. His sister also says she developed a fever this afternoon as well. However given his neutropenia I am giving broad-spectrum antibiotics and treating him as septic with a neutropenic fever and admitting to the hospital. Related Data Home Medications ?Medication ?Instructions ?Recorded ?Confirmed polyethylene glycol 3350 17 4 g PO DAILY PRN Constipat ion 04/25/24 06/03/25 gram/dose oral powder sennosides 8.6 mg tablet 8.6 mg PO BID PRN Constipati on 04/25/24 06/03/25 sertraline 50 mg tablet 50 mg PO DAILY 11/04/2405/19 hydroxyzine HCl 25 mg tablet 25 mg PO DAILY 11/15/24 0 06/03/25 morphine 15 mg tablet,extended 15 mg PO DAILY 11/15/24 06/03/25 release prednisone 50 mg tablet 50 mg PO DAILY 11/15/2405/19 ofloxacin 0.3 % ear drops in a 4 drp otic (ear) DAILY 06/03/25 06/03/25 dropperette Previous Rx's ?Medication ?Instructions ?Recorded fluconazole 100 mg tablet 100 mg PO DAILY fungal infec tion 11/25/24 prevention #90 tabs methotrexate sodium 5 mg tablet 40 mg (8 x 5 mg) PO Q7 D #28 tabs 11/25/24 sulfamethoxazole 800 1 tab PO MOWEFR #24 tabs 07/12 mg-trimethoprim 160 mg tablet (Bactrim DS) valacyclovir 500 mg tablet 500 mg PO BID #60 tabs 11/16 mercaptopurine 50 mg tablet 50 mg PO TID 84 days #84 t abs 12/10/24 lidocaine-prilocaine 2.5 %-2.5 % 1 applic topical .Element Power PLEX #30 grams 01/28/25 topical cream mercaptopurine 50 mg tablet 50 mg PO TID #90 tabs 02/16 10/12 prednisone 50 mg tablet 100 mg (2 x 50 mg) PO DAILY 5 days 03/04/25 #10 tabs amoxicillin 875 mg-potassium 1 tab PO BID 10 days #20 tabs 03/13/25 clavulanate 125 mg tablet prednisone 50 mg tablet 200 mg (4 x 50 mg) PO DAILY 5 days 04/01/25 #5 tabs hydrocodone 5 mg-acetaminophen 325 5 - 325 tab PO Q8H PRN Pain, 04/09/25 mg tablet Moderate 30 days #90 tabs methotrexate sodium 2.5 mg tablet 2.5 mg PO Q7D #64 ta bs 04/09/25 Allergies Allergy/AdvReac Type Severity Reaction Status Date / Time No Known Allergies Allergy Verified 06/03/25 08:59 Review of Systems 2 Narrative: Constitutional symptoms: Negative except as documented in HPI. Skin symptoms: Negative except as documented in HPI. Eye symptoms: Negative except as documented in HPI. ENMT symptoms: Negative except as documented in HPI. Respiratory symptoms: Negative except as documented in HPI. Cardiovascular symptoms: Negative except as documented in HPI. Gastrointestinal symptoms: Negative except as documented in HPI. Genitourinary symptoms: Negative except as documented in HPI. Musculoskeletal symptoms: Negative except as documented in HPI. Neurologic symptoms: Negative except as documented in HPI. Psychiatric symptoms: Negative except as documented in HPI. Endocrine symptoms: Negative except as documented in HPI. 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 He wants full CODE STATUS as discussed today with Max Luna MD in the presence of his brother Terry. His Sister Shena Hernandes is his next of kin. Patient states he dropped out of high school. Documented to have intellectual delay Physical Exam 2 Narrative: EXAM NARRATIVE: General: Alert, no acute distress. Skin: Warm, dry. Head: Normocephalic, atraumatic. Neck: Supple, trachea midline. Eye: Extraocular movements are intact. Ears, nose, mouth and throat: Tacky oral mucosa. Cardiovascular: Regular, at the time of my exam he was tachycardic in the 1 teens. Normal peripheral perfusion. Respiratory: Lungs are clear to auscultation, respirations are non-labored, breath sounds are equal, Symmetrical chest wall expansion. Gastrointestinal: Soft, Nontender, Non distended Musculoskeletal: Normal ROM, no deformity. Neurological: Alert and oriented, No focal neurological deficit observed. Psychiatric: Cooperative, appropriate mood & affect. Course 2 Vital Signs: Vital signs: Vital Signs Temperature 98.3 F 06/03/25 19:59 Pulse Rate 83 06/03/25 21:30 Respiratory Rate 15 06/03/25 21:00 Blood Pressure 134/97 06/03/25 21:30 Pulse Oximetry 95 06/03/25 21:30 Oxygen Delivery Me thod Room Air 06/03/25 19:59 MDM - Fever Medical Decision Making Medical decision making: Differential diagnosis including but not limited to and based on the above HPI, review of systems and physical exam: In this patient with neutropenia no fever I am treating empirically for sepsis with broad-spectrum antibiotics and admitting to the hospital after cultures and lactic acid and basic lab work. Also testing for viral sources, flu COVID and RSV, but even if this is positive given his neutropenia and fever I am going to admit and wait for cultures to come back. Orders placed to evaluate differential diagnosis based on the above differential, HPI and physical exam Chest x-ray: No acute process. No infiltrate. No pneumothorax. This was reviewed and interpreted by myself the emergency room physician. I also reviewed the radiology report. Lab Review: Laboratory results were reviewed and interpreted by myself the emergency room physician. White count is 2.7. Hemoglobin 13. Platelets are up from 9-14 after transfusion this morning. No renal failure. CRP is slightly elevated at 25. Urinalysis negative for infection. Lactate is 2. I reviewed the patient's medical record. From today's oncology note: Mr. Do is here today for follow-up of his ALL. He is currently undergoing treatment with Vincristine 2 mg day 1, mercaptopurine 50 mg twice daily days 1 through 28, methotrexate 20 mg/m? day 1 8 and 15 and prednisone 200 mg days 1 through 5. Lab work from earlier today shows a total white count of 2000 with platelet count of 9. Reexamination: Patient was screaming out in pain. Apparently he has not been will get his morphine for a while. He is on 15 mg extended release twice a day. He was given some morphine here. No increased work of breathing. No altered mental status. No focal motor deficits. Consultation: I spoke with Dr. Luna who is on-call for the hospitalist service. He agrees to admission. Assessment and plan: Neutropenic fever Back pain Possible sepsis AL L -2.5 L normal saline bolus. Just over 30 mL/kg. -Broad-spectrum antibiotics were administered. Cefepime and Zyvox -Sepsis quality measures. -Lactic acid with a reflex was ordered. -Blood cultures were ordered. ?I reevaluated the patient's volume status after sepsis fluids were given. -I discussed the patient with the hospitalist on-call who is admitting the patient. - Discussed findings and plan with patient. Answered any questions. - All laboratory values were reviewed and interpreted personally by myself, the ER physician - All imaging was reviewed and interpreted personally by myself, the ER physician. - Evaluation and treatment of this problem were appropriate in the emergency setting Critical Care: -I spent a total of >35 minutes of critical care time managing the patient, independent of any other practitioner. -The time involved in the performance of separately reportable procedures was not counted towards critical care time. Lab Data 06/03/25 20:28 06/03/25 20:28 Radiology Impressions Chest X-Ray 06/03/25 20:10 IMPRESSION: No acute findings. Lumbar Spine CT 06/03/25 21:16 IMPRESSION: 1. No acute fracture or compression deformity. 2. No subluxations. 3. No substantial degenerative change. 4. L5-S1 posterior disc bulge. Nonemergent MRI lumbar spine without contrast can be obtained if clinically indicated. Thoracic Spine CT 06/03/25 21:16 IMPRESSION: No acute thoracic spine fracture. Laboratory Results WBC 2.76 10^3/uL (3.29-11.43) L 06/03/25 20: RBC 3.87 10^6/uL (3.85-5.65) 06/03/25 20: Hgb 13.00 g/dL (11.27-16.99) 06/03/25: Hct 36.7 % (37-53) L 06/03/25: MCV 94.8 fl (82-101) 06/03/25: MCH 33.6 pg (27-33) H 06/03/25: MCHC 35.4 g/dL (30-55) 06/03/25: RDW 14.0 % (12.1-15.1) 06/03/25: Plt Count 14 10^3/cmm (157-399) L* D 06/03/25: MPV fL (7.4-10.4) 06/03/25: Neut % (Auto) 3.5 % 06/03/25: Lymph % (Auto) 45.7 % 06/03/25: Hardin % (Auto) 42.8 % 06/03/25: Eos % (Auto) 6.2 % 06/03/25: Baso % (Auto) 1.4 % 06/03/25: Neut # (Auto) 0.10 10^3/uL (1.8-7.7) L* 06/03/25: Lymph # (Auto) 1.3 10^3/uL (0.8-4.8) 06/03/25 20: Hardin # (Auto) 1.2 10^3/uL (0.2-0.9) H 06/03/25:28 Eos # (Auto) 0.2 10^3/uL (0.0-0.8) 06/03/25 20: Baso # (Auto) 0.0 10^3/uL (0.0-0.1) 06/03/25 20: Nucleated RBC % (auto) 2.9 % 06/03/25 20: Nucleated RBCs # 0.1 /100WBC 06/03/25 20: Sodium 140 mmol/L (136-145) 06/03/25 20: Potassium 3.9 mmol/L (3.5-5.1) 06/03/25 20: Chloride 101 mmol/L (98-107) 06/03/25 20: Carbon Dioxide 23 mmol/L (22-29) 06/03/25: Anion Gap 19.9 (5-19) H 06/03/25 20: BUN 8 mg/dL (6-20) 06/03/25 20: Creatinine 0.6 mg/dL (0.7-1.2) L 06/03/25 20: GFR Calculation 162.9 mL/min (90-130) H 06/03/25 20: Glucose 88 mg/dL (65-115) 06/03/25 20: Calculated Osmolality 288 mOsm/kg (285-295) 06/03/25: Lactic Acid 2.0 mmol/L (0.5-2.2) 06/03/25: Calcium 9.6 mg/dL (8.5-10.5) 06/03/25: Total Bilirubin 0.6 mg/dL (0.15-1.2) 06/03/25 20: AST 98 U/L (0-40) H 06/03/25 20: ALT 61 U/L (0-41) H 06/03/25 20: Alkaline Phosphatase 106 U/L (40-130) 06/03/25 20: C-Reactive Protein 25.0 mg/L (0.0-4.9) H 06/03/25 20: Total Protein 6.8 g/dL (6.6-8.7) 06/03/25 20: Albumin 4.4 g/dL (3.5-5.2) 06/03/25 20:28 Globulin 2.4 g/dL (1.3-4.6) 06/03/25 20:28 Procalcitonin 0.38 ng/mL (0-0.5) 06/03/25 20:28 Urine Color Yellow (Yellow) 06/03/25 22:16 Urine Appearance Clear (CLEAR) 06/03/25 22:16 Urine pH 7.0 (5-7) 06/03/25 22:16 Ur Specific Sherwood 1.006 (1.005-1.030) 06/03/25 22:16 Urine Protein Negative (Negative) 06/03/25 22:16 Urine Glucose (UA) Negative (Normal) 06/03/25 22:16 Urine Ketones Negative (Negative) 06/03/25 22:16 Urine Blood Negative (Negative) 06/03/25 22:16 Urine Nitrate Negative (Negative) 06/03/25 22:16 Urine Bilirubin Negative (Negative) 06/03/25 22:16 Urine Urobilinogen 0.2 mg/dL (Negative) 06/03/25 22:16 Ur Leukocyte Esterase Negative (Negative) 06/03/25 22:16 Urine RBC 0-2 /hpf (0-2) 06/03/25 22:16 Urine WBC 0-5 /hpf (0-5) 06/03/25 22:16 Ur Squamous Epith Cells 0-5 /hpf (0-5) 06/03/25 22:16 Amorphous Sediment Not Reportable 06/03/25 22:16 Urine Bacteria None seen /hpf (NONE) 06/03/25 22:16 Hyaline Casts 0-4 /lpf H 06/03/25 22:16 All radiology interpretation(s) finalized by discharge Discharge Plan Discharge Patient Disposition: Admitted As Inpatient Clinical Impression: Neutropenic fever, Back pain Acute lymphoblastic leukemia (ALL) Qualifiers: Leukemia Active/Remission status: in remission Qualified Code(s): C91.01 - Acute lymphoblastic leukemia, in remission Condition: Stable Coding Level of Care Code ED [employer] Supervisor for Marcelo Driscoll
--- NOTE | 2025-06-03 20:10 | XRR_ITS ---
PROCEDURE INFORMATION: Exam: XR Chest Exam date and time: 06/03/2025 8:31 PM Age: 25 years old Clinical indication: Fever; Additional info: Fever, neutropenia TECHNIQUE: Imaging protocol: Radiologic exam of the chest. Views: 1 view. COMPARISON: CR XR chest 1V portable [id number] 03/12/2024 12:22 PM FINDINGS: Tubes, catheters and devices: A right internal jugular approach implanted port catheter is identified. The tip terminates at the superior cavoatrial junction. Lungs: Unremarkable. No consolidation. Pleural spaces: Unremarkable. No pleural effusion. No pneumothorax. Heart/Mediastinum: See Tubes, catheters and devices finding. Bones/joints: Unremarkable. XR/XR chest 1V portable [id number] IMPRESSION: No acute findings.
[2025-06-03 20:38] LABS: Hematocrit 36.7 % (37-53); Hemoglobin 13.00 g/dL (11.27-16.99); Mean Corpuscular HGB Conc 35.4 g/dL (30-55); Mean Corpuscular Hemoglobin 33.6 pg (27-33); Mean Corpuscular Volume 94.8 fl (82-101); Nucleated Red Blood Cells % 2.9 %; Red Blood Count 3.87 10^6/uL (3.85-5.65); White Blood Count 2.76 10^3/uL (3.29-11.43)
[2025-06-03] MEDS: cefepime 2,000 mg SDV 2000 MG IVP (21:00)
[2025-06-03] MEDS: linezolid premix 600 MG/300 ML PREMIX 300 MG IV (21:06)
[2025-06-03 21:14] LABS: Slide Review Slide Review Perform
[2025-06-03 21:16] LABS: Platelet Count 14 10^3/cmm (157-399)
--- NOTE | 2025-06-03 21:16 | CTR_ITS ---
PROCEDURE INFORMATION: Exam: CT Lumbar Spine Without Contrast Exam date and time: 06/03/2025 9:34 PM Age: 25 years old Clinical indication: Low back pain TECHNIQUE: Imaging protocol: Computed tomography of the lumbar spine without contrast. Radiation optimization: All CT scans at this facility use at least one of these dose optimization techniques: automated exposure control; mA and/or kV adjustment per patient size (includes targeted exams where dose is matched to clinical indication); or iterative reconstruction. COMPARISON: CR XR lumbar spine 2-3V* [id number] 06/03/2025 1:43 PM RADIATION DOSE METRICS: Total DLP (mGy-cm): 507.6 FINDINGS: Bones/joints: No acute fracture or compression deformity is noted. No subluxations. Circumferential posterior disc bulge at L5-S1. Soft tissues: Unremarkable. CT/CT lumbar spine wo con* [id number] IMPRESSION: 1. No acute fracture or compression deformity. 2. No subluxations. 3. No substantial degenerative change. 4. L5-S1 posterior disc bulge. Nonemergent MRI lumbar spine without contrast can be obtained if clinically indicated.
--- NOTE | 2025-06-03 21:16 | CTR_ITS ---
PROCEDURE INFORMATION: Exam: CT Thoracic Spine Without Contrast Exam date and time: 06/03/2025 9:34 PM Age: 25 years old Clinical indication: Pain in thoracic spine; Additional info: Back pain TECHNIQUE: Imaging protocol: Computed tomography of the thoracic spine without contrast. Radiation optimization: All CT scans at this facility use at least one of these dose optimization techniques: automated exposure control; mA and/or kV adjustment per patient size (includes targeted exams where dose is matched to clinical indication); or iterative reconstruction. COMPARISON: CR XR thoracic spine 3V* [id number] 06/03/2025 1:43 PM RADIATION DOSE METRICS: Total DLP (mGy-cm): 507.6 FINDINGS: Bones/joints: No acute fracture. Normal alignment. No significant disc bulge or herniation. No severe spinal canal stenosis. No significant neural foraminal narrowing. Soft tissues: Unremarkable. CT/CT thoracic spin wo con* [id number] IMPRESSION: No acute thoracic spine fracture.
--- NOTE | 2025-06-03 21:28 | P.HP_ITS ---
Providers/Chief Complaint 2 Admitting Physician: Max Luna MD Primary Care Provider: Nuria Ruvalcaba MD Oncology Chief Complaint: Fever, back pain History of Present Illness Javed Do is a 25 year old male with history of ALL diagnosed January 2024 when he had abdominal and back pain found to have mesenteric lymphadenopathy found to have white count of 66,000 platelet count 64. LDH was 8583 hematocrit at the time 18.7 and he was transferred to [facility]. June 10, 2024 patient was completing chemotherapy including from [facility] and was on Neulasta and was admitted for neutropenic fever and treated with vancomycin and Zosyn and subsequently Augmentin for dental abscess. He has since had all of his teeth on the upper removed and has an upper denture. Patient had port placement by Dr. Serrano 11/18/2024. 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 Recently as of 06/03/2025 patient has been undergoing treatment with vincristine 2 mg day 1, mercaptopurine 50 mg twice daily days 1 through 28, methotrexate 20 mg/m? day 1 8 and 15 and prednisone 200 mg days 1 through 5. Patient was seen in the oncology department today by Gunjan PRADO and comes in tonight with fevers and also back pain that sometimes shoots down his legs he is uncomfortable remaining 1 position. He is having no problem with weakness in his legs or numbness. He states he is able to walk and brother Terry at bedside states the patient walked in from his car. Patient had CT scan of his abdomen on 04/08/2025 showing IMPRESSION: 1. Mild fat stranding adjacent to the cecum extending towards the right inguinal canal could represent mild inflammation. No definite evidence to suggest acute appendicitis. 2. Patchy sclerosis within the T12 vertebral body and bilateral pelvic bones, possibly representing musculoskeletal involvement of leukemia. Nonemergent MRI could be considered for further assessment. Patient had ANC of 20 and a platelet count of 10,000 chemotherapy held 1 unit of platelets ordered Invanz 1 g given and noted that he had a temperature 102.3 yesterday he remains on prophylactic Bactrim was supposed to follow-up 1 week with CBC CMP and type and screen for possible platelet pheresis. Patient returns here for fever and back pain. Patient states he has had mild back pain for the year since he was diagnosed with AL L. He states that in the last 3 days its been 8/ Review of Systems 2 Narrative: General positive for fevers 101 Cardiovascular no chest pain palpitations or edema Respiratory no shortness breath cough wheezing GI no nausea vomiting diarrhea constipation no dysuria hematuria incontinence Hematologic negative for pulmonary embolism or DVT in the legs Musculoskeletal positive for back pain greater than year he denies loss of sensation of legs or motor weakness but is painful to walk and sometimes he has pain going down his legs Medications/Allergies Home Medications ?Medication ?Instructions ?Recorded ?Confirmed ?Last Taken ?Type polyethylene glycol 3350 17 4 g PO DAILY PRN Constipat ion 04/25/24 06/03/25 Unknown History gram/dose oral powder sennosides 8.6 mg tablet 8.6 mg PO BID PRN Constipati on 04/25/24 06/03/25 Unknown History sertraline 50 mg tablet 50 mg PO DAILY 11/04/2405/1911/17/24 History hydroxyzine HCl 25 mg tablet 25 mg PO DAILY 11/15/24 0 06/03/25 Unknown History morphine 15 mg tablet,extended 15 mg PO DAILY 11/15/24 06/03/25 11/17/24 History release prednisone 50 mg tablet 50 mg PO DAILY 11/15/2405/1911/17/24 History fluconazole 100 mg tablet 100 mg PO DAILY fungal infec tion 11/25/24 06/03/25 Unknown Rx prevention #90 tabs methotrexate sodium 5 mg tablet 40 mg (8 x 5 mg) PO Q7 D #28 tabs 11/25/24 06/03/25 Unknown Rx sulfamethoxazole 800 1 tab PO MOWEFR #24 tabs 07/1206/03/25 Unknown Rx mg-trimethoprim 160 mg tablet (Bactrim DS) valacyclovir 500 mg tablet 500 mg PO BID #60 tabs 11/1606/03/25 Unknown Rx mercaptopurine 50 mg tablet 50 mg PO TID 84 days #84 t abs 12/10/24 06/03/25 Unknown Rx lidocaine-prilocaine 2.5 %-2.5 % 1 applic topical .Zoodig PLEX #30 grams 01/28/25 06/03/25 Unknown Rx topical cream mercaptopurine 50 mg tablet 50 mg PO TID #90 tabs 02/1606/03/25 Unknown Rx prednisone 50 mg tablet 100 mg (2 x 50 mg) PO DAILY 5 days 03/04/25 06/03/25 Unknown Rx #10 tabs amoxicillin 875 mg-potassium 1 tab PO BID 10 days #20 tabs 03/13/25 06/03/25 Unknown Rx clavulanate 125 mg tablet prednisone 50 mg tablet 200 mg (4 x 50 mg) PO DAILY 5 days 04/01/25 06/03/25 Unknown Rx #5 tabs hydrocodone 5 mg-acetaminophen 325 5 - 325 tab PO Q8H PRN Pain, 04/09/25 06/03/25 Unknown Rx mg tablet Moderate 30 days #90 tabs methotrexate sodium 2.5 mg tablet 2.5 mg PO Q7D #64 ta bs 04/09/25 06/03/25 Unknown Rx ofloxacin 0.3 % ear drops in a 4 drp otic (ear) DAILY 06/03/25 06/03/25 Unknown History dropperette Allergies Allergy/AdvReac Type Severity Reaction Status Date / Time No Known Allergies Allergy Verified 06/03/25 08:59 PFSH Acute 2 PFSH: Medical History (Updated 06/03/25 @ 22:25 by Max Luna MD) Fever and neutropenia Pancytopenia Acute leukemia Poor dentition Surgical History (Updated 06/03/25 @ 10:06 by Gunjan Perales NP) History of brain shunt Social History (Updated 06/03/25 @ 22:08 by Max Luna MD) Smoking and tobacco/nicotine status: never used tobacco/nicotine Alcohol intake: never Substance/Drug Use: current Substance/Drug use type: Marijuana Other substance/drug use details: He vapes cannabis pen 10 hits a day , runs out each month Additional social history: 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 He wants full CODE STATUS as discussed today with Max Luna MD in the presence of his brother Terry. His Sister Shena Hernandes is his next of kin. Patient states he dropped out of high school. Documented to have intellectual delay Vitals/I&O/Wt Last Vital Signs Temp 98.3 F 06/03/25 19:59 Pulse 99 06/03/25 19:59 Resp 18 06/03/25 19:59 BP 125/79 06/03/25 19:59 Pulse Ox 96 06/03/25 19:59 O2 Del Method Room Air 06/03/25 19:59 Weight last 48 hrs Weight 78.471 kg Physical Exam 2 Narrative: General well-developed well-nourished male tall stature uncomfortable in bed oropharynx clear Mallampati 1 edentulous CV regular rate and rhythm Lungs clear to auscultation bilaterally Abdomen positive bowel tones soft nontender Back patient has tenderness in the lower thoracic and lumbar back he is tender to palpation and squirms away. He denies shooting pain down his legs or up his back. Skin is damp warm not sweaty wet Neuro pupils equally round and reactive to light accommodation face is symmetric gross sensation over the legs intact and motor strength 5/5 bilateral ankle flexion extension with straight leg lifting patient is 4/5 bilaterally with giveaway weakness for pain but equal Data 06/03/25 20:28 06/03/25 20:28 Micro: Microbiology 06/03/25 20:28 Blood Culture - Preliminary Blood SPECIMEN COLLECTED A&P Assessment and plan 1. Fever and neutropenia: Neutropenic precautions and start meropenem and continue linezolid 2. Low back pain: MRI with and without contrast in morning to look for paraspinous abscess or bleeding 3. Thrombocytopenia: Will give 1 unit platelets 4. Acute lymphoblastic leukemia (ALL): Treatment held 5. Abnormal finding on CT scan: Recent CT showed patchy sclerosis within the T12 body and bilateral pelvic bones possibly representing musculoskeletal involvement of leukemia. None emergent MRI was recommended. This is not available today noncontrast thoracic CT shows no neuroforaminal narrowing or severe spinal stenosis. Lumbar spine shows a L5- S1 posterior disc bulge. I do not find acute abnormality that would require transfer for acute surgery. I am going to give the patient platelets and order MRI with and without contrast for the morning PDMP PDMP Reviewed: Not Reviewed Attestations 2 Medical Necessity Statement*: Patient admitted to hospital to inpatient with thrombocytopenia and pancytopenia from chemotherapy for ALL and will require greater than 2 midnights in hospital Coding Level of Care Code 48890 Diagnoses Fever and neutropenia D70.9; R50.81 Low back pain M54.50 Thrombocytopenia D69.6 Acute lymphoblastic leukemia (ALL) C91.[address] scan R93.89 Time Spent (min) 70
[2025-06-03 21:30] LABS: Lactic Sepsis W/Reflex 2.0 mmol/L (0.5-2.2); Procalcitonin 0.38 ng/mL (0-0.5)
[2025-06-03 21:32] LABS: Alanine Aminotransferase 61 U/L (0-41); Albumin Level 4.4 g/dL (3.5-5.2); Alkaline Phosphatase 106 U/L (40-130); Anion Gap 19.9 (5-19); Aspartate Amino Transferase 98 U/L (0-40); Blood Urea Nitrogen 8 mg/dL (6-20); Calcium 9.6 mg/dL (8.5-10.5); Carbon Dioxide 23 mmol/L (22-29); Chloride 101 mmol/L (98-107); Creatinine Clr Calc Pharmacy 209.3388; Globulin 2.4 g/dL (1.3-4.6); Glucose 88 mg/dL (65-115); Osmolality Calculated 288 mOsm/kg (285-295); Potassium 3.9 mmol/L (3.5-5.1); Sodium 140 mmol/L (136-145); Total Protein 6.8 g/dL (6.6-8.7)
[2025-06-03 22:24] LABS: Glucose Urine UA Negative (Normal); Nitrate Urine Negative (Negative); Specific Gravity, Urine 1.006 (1.005-1.030)
[2025-06-03 22:45] LABS: Respiratory Syncytial Virus Ce NEGATIVE (Negative); SARS-CoV-2 PCR NEGATIVE (Negative)
[2025-06-03] MEDS: morphine 4 mg/mL SDV 1 mL IVP (22:46)
[2025-06-03] MEDS: sodium chlor 0.9% + KCl 20 mEq 20 MEQ/1,000 ML BAG 100 MEQ IV (23:24)
[2025-06-04] VITALS (27 sets, daily range): BP systolic 120–137; BP diastolic 73–86; PULSE 58–84; RESP 11–26; TEMP 36.7–37.1; O2SAT 21–98; BMI 22.6
[2025-06-04] MEDS: oxyCODONE 5 mg IR Tab/Cap PO ×3 (00:06→13:59)
[2025-06-04] MEDS: MEROPENEM 2,000 MG in sodium chloride 0.9% (plus) 50 ML 100 MG IV ×2 (01:24→11:22)
[2025-06-04] MEDS: morphine 4 mg/mL SDV 1 mL IVP ×2 (02:49→07:07)
[2025-06-04 04:54] LABS: Hematocrit 34.6 % (37-53); Hemoglobin 12.00 g/dL (11.27-16.99); Mean Corpuscular HGB Conc 34.7 g/dL (30-55); Mean Corpuscular Hemoglobin 34.2 pg (27-33); Mean Corpuscular Volume 98.6 fl (82-101); Nucleated Red Blood Cells % 1.1 %; Red Blood Count 3.51 10^6/uL (3.85-5.65); White Blood Count 1.76 10^3/uL (3.29-11.43)
[2025-06-04 05:27] LABS: Alanine Aminotransferase 51 U/L (0-41); Albumin Level 4.1 g/dL (3.5-5.2); Alkaline Phosphatase 88 U/L (40-130); Anion Gap 15.9 (5-19); Aspartate Amino Transferase 83 U/L (0-40); Blood Urea Nitrogen 5 mg/dL (6-20); Calcium 8.7 mg/dL (8.5-10.5); Carbon Dioxide 26 mmol/L (22-29); Chloride 103 mmol/L (98-107); Creatinine Clr Calc Pharmacy 208.8417; Globulin 2.0 g/dL (1.3-4.6); Glucose 154 mg/dL (65-115); Osmolality Calculated 292 mOsm/kg (285-295); Potassium 3.9 mmol/L (3.5-5.1); Sodium 141 mmol/L (136-145); Total Protein 6.1 g/dL (6.6-8.7)
[2025-06-04 05:49] LABS: Slide Review Slide Review Perform
[2025-06-04 05:51] LABS: Platelet Count 7 10^3/cmm (157-399)
--- NOTE | 2025-06-04 06:01 | PC.NURSE ---
Unable to picker unit of Plt from blood bank due to issue problems- Kira in blood bank to have day shift address. Platelets down to 7 at this time.
--- NOTE | 2025-06-04 07:59 | PHA.VACGOAL ---
Vancomycin Goal - Goal Vancomycin Goal:: 15-20 mg/L Vancomycin Indication:: Other - Therapy Current therapy:: Meropenem Day of therpy:: Day []of [] . Actual body weight (kg): 171 lb 15.369 oz - Data Labs: WBC 1.76 10^3/uL (3.29-11.43) L 06/04/25 04:12 RBC 3.51 10^6/uL (3.85-5.65) L 06/04/25 04:12 Hgb 12.00 g/dL (11.27-16.99) 06/04/25 04:12 Hct 34.6 % (37-53) L 06/04/25 04:12 MCV 98.6 fl (82-101) 06/04/25 04:12 MCH 34.2 pg (27-33) H 06/04/25 04:12 MCHC 34.7 g/dL (30-55) 06/04/25 04:12 RDW 14.2 % (12.1-15.1) 06/04/25 04:12 Sodium 141 mmol/L (136-145) 06/04/25 04:12 Potassium 3.9 mmol/L (3.5-5.1) 06/04/25 04:12 Chloride 103 mmol/L (98-107) 06/04/25 04:12 Carbon Dioxide 26 mmol/L (22-29) 06/04/25 04:12 Anion Gap 15.9 (5-19) 06/04/25 04:12 BUN 5 mg/dL (6-20) L 06/04/25 04:12 Creatinine 0.6 mg/dL (0.7-1.2) L 06/04/25 04:12 GFR Calculation 162.9 mL/min (90-130) H 06/04/25 04:12 Last dialysis session:: N/A Treatment plan:: new consult Regimen:: LOADING DOSE OF 2000 MG X 1 PER DOSING PROTOCOL MAINTENANCE DOSE OF 1000 MG Q8H Follow up:: WILL CONTINUE TO MONITOR AND FOLLOW UP DAILY
--- NOTE | 2025-06-04 08:00 | MR_ITS ---
WS: [id number] MRI LUMBAR SPINE WITH CONTRAST TECHNIQUE: Sagittal T1, T2 and STIR imaging. Axial T1 and T2 imaging. Post gadolinium imaging was obtained. CLINICAL INFORMATION: acute lymphoblastic leukemia and pain COMPARISON: None. FINDINGS: Counting performed from the craniocervical junction 6 lumbar vertebral bodies for the purposes of this dictation Diffuse uniform replacement of normal fatty T1 bone marrow signal most likely due to diffuse marrow infiltration from known leukemia. No high-grade central canal stenosis. No acute compression fractures. Incidental hemangioma L1 vertebral body. No evidence of discitis or osteomyelitis. L1-L2: Normal. L2-L3: Normal. L3-L4: Normal. L4-L5: Mild annular bulging. Mild facet arthropathy. Slight narrowing LEFT subarticular recess. Foramen are patent. L5-L6: Mild annular bulging. Mild to moderate central canal stenosis. Impingement on the subarticular recess bilaterally. Mild RIGHT foraminal narrowing. Moderate facet arthropathy. L6-S1: Mild annular bulging. Tiny central protrusion. Spinal canal and foramen are patent. Mild facet arthropathy. MR/MR lumbar spine wo/w con [id number] IMPRESSION: 1. Counting performed from the craniocervical junction. 6 lumbar vertebral b odies for the purposes of this dictation 2. 2. Diffuse uniform replacement of normal fatty T1 bone marrow signal most l ikely due to diffuse marrow infiltration from known leukemia. 3. No discitis or osteomyelitis. 4. Mild to moderate central canal stenosis L5-6 with impingement of the brandie sing nerve roots.
--- NOTE | 2025-06-04 08:00 | MR_ITS ---
WS: [id number] MRI THORACIC SPINE WITH CONTRAST TECHNIQUE: Sagittal T1, T2 and STIR imaging. Axial T2 imaging. Post gadolinium imaging was obtained. CLINICAL INFORMATION: acute lymphoblastic leukemia and pain COMPARISON: None. FINDINGS: Some images limited by motion artifact. Replacement of the normal fatty T1 bone marrow signal throughout the thoracic spine compatible with history of leukemia. This is most likely due to diffuse marrow infiltration from aLL. This also involves the cervical spine on the slicer machine operator imaging. No acute compression fractures. No evidence of discitis or osteomyelitis. Spinal canal is patent. Cord signal is normal. Cholelithiasis. Normal caliber descending thoracic aorta. Adrenal glands are normal. MR/MR thoracic spine wo/w [id number] IMPRESSION: Some images limited by motion artifact. 1. Diffuse replacement of the normal T1 fatty bone marrow signal throughout th e visualized spine most likely due to diffuse marrow infiltration from known le ukemia. 2. No acute compression fractures. 3. No evidence of discitis or osteomyelitis
--- NOTE | 2025-06-04 09:16 | PC.PHAR ---
Verified medications through [facility]. Pt has completed cancer therapy but left previous medications on the list with last fill date and day supply added.
--- NOTE | 2025-06-04 10:32 | CT_ITS ---
WS: [id number] CT CHEST, ABDOMEN AND PELVIS WITH CONTRAST HISTORY: neutropenia, fevere, fatigue TECHNIQUE: Contiguous 5 mm axial imaging performed through the chest, abdomen and pelvis with IV contrast, oral contrast has not been provided. Coronal and sagittal reformats chest. Coronal and sagittal reformats through the abdomen and pelvis. All CT scans at [facility] use at least one of these dose optimization techniques: automated exposure control; mA and/or kV adjustment per patient size (includes targeted exams where dose is matched to clinical indication); or iterative reconstruction. CONTRAST: Omnipaque 350; 100 mL IV. DLP: 785.51 mGy.cm COMPARISON: CT abdomen and pelvis 04/08/[address]: Lungs are well aerated. There are 2 adjacent nodules in the LEFT upper lobe. These are very small opacifications with the largest measuring 5 mm and is slightly spiculated in the LEFT upper lobe. Smaller nodule also noted in the LEFT upper lobe. No areas of dense consolidation. No pleural or pericardial effusions. Heart is top normal size. No mediastinal or hilar adenopathy. Normal vessels. RIGHT subclavian Mediport is in good position. Normal size aorta and pulmonary artery. Normal thyroid. No axillary lymph nodes. Abdomen CT: Hepatic steatosis. Liver is slightly enlarged. No intrahepatic duct dilatation. Portal vein is normal. Normal size spleen. Normal pancreas and adrenal glands. Gallbladder is very slightly distended. There are several folds present within the gallbladder which were noted on the prior study. No stones or pericholecystic fluid. Normal common bile duct. No renal enlargement. Normal enhancement with no obstruction. Normal aorta. Stomach is not distended. No small bowel obstruction. Mild constipation. Normal appendix. Pelvic CT: There is a very small amount of free fluid in the RIGHT lower quadrant. No adjacent inflammatory changes within the GI tract. Urinary bladder is well distended with urine and IV contrast. No adenopathy. No destructive bone lesions. No change in appearance of the marrow since 04/08/2025. CT/CT chest abdpel w/*[id number] IMPRESSION: 1. Very small opacifications in the LEFT upper lobe. The largest is 5 mm and s lightly spiculated. Suspect an area of pneumonitis. 2. No adenopathy in the chest, abdomen or pelvis. 3. Very small amount of free fluid in the RIGHT lower quadrant. 4. Normally distended gallbladder with multiple folds with mild enhancement. T here is no adjacent inflammation to suggest acute cholecystitis. Gallbladder ca n be further evaluated by ultrasound if there is RIGHT upper quadrant symptoms. 5. No intra paddock duct dilatation. 6. Normal size spleen. 7. RIGHT subclavian Mediport.
--- NOTE | 2025-06-04 10:32 | CT_ITS ---
WS: [id number] CT HEAD NONCONTRAST HISTORY: omaya chemo shunt, neutropenia TECHNIQUE: Contiguous axial imaging performed through the brain. Bone and soft tissue windows. Sagittal and coronal reformats reviewed. All CT scans at [facility] use at least one of these dose optimization techniques: automated exposure control; mA and/or kV adjustment per patient size (includes targeted exams where dose is matched to clinical indication); or iterative reconstruction. DLP: 1055.05 mGy.cm COMPARISON: None available. No acute intracranial hemorrhage, midline shift or mass effect. No atrophy or prior infarcts or herniation. Ventricles: Normal size with no hydrocephalus. RIGHT frontal RN LACTATION CONSULTANT shunt is present with tip terminating near the third ventricle. No ventricular dilatation. Paranasal sinuses: As visualized are clear. Mastoid air cells: Well pneumatized. Calvarium and scalp: RIGHT frontal moira hole for RN LACTATION CONSULTANT shunt. CT/CT head wo con* [id number] IMPRESSION: 1. No acute intracranial hemorrhage or edema. 2. No prior infarct. 3. RIGHT frontal RN LACTATION CONSULTANT shunt catheter with tip terminating near the third ventric le. 4. No hydrocephalus.
[2025-06-04] MEDS: gadobenate dimeglumine 20 mL vial 16 ML IV (10:40)
[2025-06-04] MEDS: iohexol 350 mg/mL 500 mL Btl (per mL) IV (11:20)
[2025-06-04] MEDS: HYDROmorphone 0.5 MG/0.5 ML INJ 1 MG IM (11:23)
[2025-06-04] MEDS: sodium chlor 0.9% + KCl 20 mEq 20 MEQ/1,000 ML BAG 100 MEQ IV (11:27)
[2025-06-04 12:46] LABS: Hematocrit 34.2 % (37-53); Hemoglobin 12.00 g/dL (11.27-16.99); Mean Corpuscular HGB Conc 35.1 g/dL (30-55); Mean Corpuscular Hemoglobin 33.9 pg (27-33); Mean Corpuscular Volume 96.6 fl (82-101); Red Blood Count 3.54 10^6/uL (3.85-5.65); White Blood Count 2.54 10^3/uL (3.29-11.43)
[2025-06-04 13:16] LABS: LAB Peripheral Smear Sent for Review
[2025-06-04 13:27] LABS: Platelet Count 24 10^3/cmm (157-399)
[2025-06-04 13:34] LABS: Absolute Segmented Neutrophil 0.0 10/cmm (1.6-7.1); Band Neutrophils Absolute 0.0 10^3/cmm (0.0-1.2); Total Cells Counted 50 (0-100)
[2025-06-04 13:35] LABS: Atypical Lymphs 14.0 % (0-5)
[2025-06-04 13:36] LABS: Smudge Cells 1+
--- NOTE | 2025-06-04 14:29 | PC.NURSE ---
Report called to [phone] Chey Henson RN
[2025-06-04] MEDS: HYDROmorphone 0.5 MG/0.5 ML INJ 1 MG IVP (14:57)
--- NOTE | 2025-06-04 15:28 | PM.PN ---
Subjective Subjective: - Patient was examined this morning - Reports feeling febrile, fatigue, malaise, chills - No cough, no dysuria, does report diffuse musculoskeletal aches and pains - He does specifically have complaint of lower back pain, radiating down both legs, radiating up through his spine - Denies any headache, no blurry vision, does have a Ommaya reservoir in place, no issues with infection - Denies any bloody or black stools, no abdominal pain, no new rashes - Denies any falls, no injuries, recent travel -No neck pain, no neck stiffness, Kernig and Brudzinski sign negative - Currently complaining of intractable low back pain - Discussed with Javed, switching him to Dilaudid - He has MRIs of his lumbar spine and thoracic spine that has been ordered - Given concerns for febrile neutropenia, and thrombocytopenia discussed continue broad-spectrum antibiotic therapy vancomycin, meropenem follow his cultures, lui CT chest abdomen and pelvis has been ordered - Will discuss case with hematology oncology - Case was discussed with hematology oncology with the patient's absolute neutropenia, concerns for neutropenic fever and thrombocytopenia platelet count 7 despite receiving 2 units platelets - Dr. Ruvalcaba patient's oncologist, recommends for us to discuss with [facility] and considering transfer for consideration of febrile neutropenia with thrombocytopenia secondary to patient's chemotherapy versus bone marrow suppression from patient's B-cell AL - CT abdomen pelvis no retroperitoneal bleed, no acute source of infection, does have distended gallbladder, mildly enhancement, but he denies any abdominal pain, CT scan did show opacifications in the left upper lobe, pneumonia versus pneumonitis - Patient is on vancomycin, and meropenem - Head CT no acute findings, no hydrocephalus, right frontal ORTHOPHOTO TECH/DRAFTSMAN shunt catheter in third ventricle - MRI of the spine shows T1 signal, diffuse marrow infiltration from no leukemia, mild to moderate L5-L6 impingement the transversing roots, no discitis, no vertebral osteomyelitis - Discussed case with [facility], spoke to oncology, we do not have inpatient oncology services here at [facility], we also have a delayed ability to get platelets, discussed patient's persistent thrombocytopenia, absolute neutropenia, concerns for febrile neutropenia, discussed concerns for possible bone marrow failure, need for inpatient hematology-oncology evaluation, patient's leukemia team is at [facility] - Patient has been accepted to [facility], inpatient oncology service - Discussed with patient transfer, the need for higher level of care, need for inpatient hematology specialty, given his severe thrombocytopenia, absolute neutropenia, neutropenic fevers, discussed recent benefits, he voiced understanding, all questions answered, agreed to proceed - Discussed his MRI findings, discussed for now pain control, and medical management, further interventions can be considered once his Neutropenia and Thrombocytopenia Has Improved - Will transfer to [facility] Vitals/I&O/Wt Last Vital Signs Temp 98.1 F 06/04/25 14:08 Pulse 70 06/04/25 14:02 Resp 13 06/04/25 14:02 BP 124/84 06/04/25 14:02 Pulse Ox 96 06/04/25 14:02 O2 Del Method Room Air 06/04/25 12:30 06/04/25 06/04/25 06/04/25 06:59 14:59 22:59 Intake Total 2550 / 2850 1323 / 1323 Output Total 1400 / 1400 Balance 2550 / 2850 -77 / -77 Weight last 48 hrs Weight 78 kg Weight 78 kg Weight 78.471 kg Physical Exam Const: COMMON NORMALS: no acute distress and patient oriented x3 Eye: COMMON NORMALS: Equal, round and reactive pupils present and EOMs intact bilaterally PUPIL: Yes Equal, round and reactive pupils present Resp: COMMON NORMALS: normal respiratory effort, No retractions, No use of accessory muscles and clear to auscultation bilaterally AUSCULTATION: clear to auscultation bilaterally Cardio: COMMON NORMALS: regular rate, regular rhythm, S1 normal heart sound present and S2 normal heart sound present RATE: regular rate RHYTHM: regular rhythm HEART SOUNDS: S1 normal heart sound present and S2 normal heart sound present GI: COMMON NORMALS: Normal to inspection, nondistended, normoactive bowel sounds present and non-tender Extremity: COMMON NORMALS: no pedal edema Neuro: COMMON NORMALS: patient oriented x3, CN's II-XII intact bilaterally and moves all extremities Psych: COMMON NORMALS: mental status grossly normal Data 06/04/25 12:20 06/04/25 04:12 Micro: Microbiology 06/04/25 00:40 Blood Culture - Preliminary Blood SPECIMEN COLLECTED 06/03/25 20:28 Blood Culture - Preliminary Blood SPECIMEN COLLECTED A&P Assessment and plan 1. Fever and neutropenia: 2. Low back pain: 3. Thrombocytopenia: 4. Acute lymphoblastic leukemia (ALL): Treatment held 5. Abnormal finding on CT scan: Plan: History of B-cell acute lymphoblastic leukemia/lymphoma - On mercaptopurine, methotrexate, prednisone - All of which is currently held Thrombocytopenia, absolute neutropenia - Platelet count 7,000 status post 1 unit platelet, repeat platelet count pending - Absolute neutropenia - Concerns for bone marrow failure, progression of B-cell acute lymphoblastic leukemia - Will transfer to [facility] oncology Febrile neutropenia - Blood cultures pending - CT of the chest does show left upper lobe opacification, possibly representing pneumonia, versus pneumonitis, - Does have distended gallbladder with multiple folds with mild enhancement, no right upper quadrant pain -Ommaya reservoir in place, CT head no acute findings - Continue vancomycin, meropenem - Isolation precautions Lower back pain Thoracic MRI Replacement of the normal fatty T1 bone marrow signal throughout the thoracic spine compatible with history of leukemia. This is most likely due to diffuse marrow infiltration from aLL. This also involves the cervical spine on the warping mill operator imaging. No acute compression fractures. No evidence of discitis or osteomyelitis. Spinal canal is patent. Cord signal is normal. Cholelithiasis. Normal caliber descending thoracic aorta. Adrenal glands are normal. Counting performed from the craniocervical junction 6 lumbar vertebral bodies for the purposes of this dictation Diffuse uniform replacement of normal fatty T1 bone marrow signal most likely due to diffuse marrow infiltration from known leukemia. No high-grade central canal stenosis. No acute compression fractures. Incidental hemangioma L1 vertebral body. No evidence of discitis or osteomyelitis. L1-L2: Normal. L2-L3: Normal. L3-L4: Normal. L4-L5: Mild annular bulging. Mild facet arthropathy. Slight narrowing LEFT subarticular recess. Foramen are patent. L5-L6: Mild annular bulging. Mild to moderate central canal stenosis. Impingement on the subarticular recess bilaterally. Mild RIGHT foraminal narrowing. Moderate facet arthropathy. L6-S1: Mild annular bulging. Tiny central protrusion. Spinal canal and foramen are patent. Mild facet arthropathy. Plan - Pain control - Monitor closely PDMP PDMP Reviewed: Not Reviewed Attestations Medical Necessity Statement*: Patient requires hospitalization for abdomen neutropenia, thrombocytopenia, febrile neutropenia with B-cell acute lymphoblastic leukemia/lymphoma Diagnoses Fever and neutropenia D70.9; R50.81 Low back pain M54.50 Thrombocytopenia D69.6 Acute lymphoblastic leukemia (ALL) C91.[address] scan R93.89
--- NOTE | 2025-06-04 15:44 | P.TS_ITS ---
Transfer Summary Providers Date of Admission: 06/03/25 22:22 Date of Discharge/Transfer: 06/05/25 Attending Provider at Admission: Max Luna MD Attending Provider at Transfer: Josias Lane MD Transfer Plans: Anticipated date of transfer: 06/05/25 . Diagnoses at Discharge Discharge Diagnosis 1. Fever and neutropenia: 2. Low back pain: 3. Thrombocytopenia: 4. Acute lymphoblastic leukemia (ALL): 5. 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, mercaptopurine, prednisone who presents [facility] due to fatigue, malaise, subjective fevers, back pain History of B-cell acute lymphoblastic leukemia/lymphoma - On mercaptopurine, methotrexate, prednisone - All of which is currently held Thrombocytopenia, absolute neutropenia - Platelet count 7,000 status post 1 unit platelet, repeat platelet count pending - Absolute neutropenia - Concerns for bone marrow failure, progression of B-cell acute lymphoblastic leukemia - Will transfer to [facility] oncology Febrile neutropenia - Blood cultures pending - CT of the chest does show left upper lobe opacification, possibly representing pneumonia, versus pneumonitis, - Does have distended gallbladder with multiple folds with mild enhancement, no right upper quadrant pain -Ommaya reservoir in place, CT head no acute findings - Continue vancomycin, meropenem - Isolation precautions - Due to worsening absolute neutropenia, transfer to [facility]/oncology for concerns for bone marrow failure, progression of disease, need for inpatient hematology Lower back pain Thoracic MRI Replacement of the normal fatty T1 bone marrow signal throughout the thoracic spine compatible with history of leukemia. This is most likely due to diffuse marrow infiltration from aLL. 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 No acute compression fractures. No evidence of discitis or osteomyelitis. Spinal canal is patent. Cord signal is normal. Cholelithiasis. Normal caliber descending thoracic aorta. Adrenal glands are normal. Counting performed from the craniocervical junction 6 lumbar vertebral bodies for the purposes of this dictation Diffuse uniform replacement of normal fatty T1 bone marrow signal most likely due to diffuse marrow infiltration from known leukemia. No high-grade central canal stenosis. No acute compression fractures. Incidental hemangioma L1 vertebral body. No evidence of discitis or osteomyelitis. L1-L2: Normal. L2-L3: Normal. L3-L4: Normal. L4-L5: Mild annular bulging. Mild facet arthropathy. Slight narrowing LEFT subarticular recess. Foramen are patent. L5-L6: Mild annular bulging. Mild to moderate central canal stenosis. Impingement on the subarticular recess bilaterally. Mild RIGHT foraminal narrowing. Moderate facet arthropathy. L6-S1: Mild annular bulging. Tiny central protrusion. Spinal canal and foramen are patent. Mild facet arthropathy. -No alarm symptoms, no urine incontinence, no bowel incontinence no saddle or perianal anesthesia -He was monitored as inpatient received MRI as above, received IV Dilaudid with improvement of pain medication Plan - Pain control - Monitor closely - Will need consultation with orthopedic spine at some point TS Data Studies Completed and Pending Pending at discharge Category Date Time Status ABO RH Type Stat Lab 06/04/25 00:40 Results ABS Screen Only Stat Lab 06/04/25 00:40 Results Blood Culture Stat Lab 06/03/25 19:55 Results Complete Blood Count w/Auto AM LABS Lab 06/05/25 04:00 Ordered Complete Blood Count w/Auto AM LABS Lab 06/06/25 04:00 Ordered Complete Crossmatch Stat Lab 06/03/25 23:49 Results Platelets Leuko-Reduced Stat Lab 06/03/25 23:49 Results Platelets Leukoreduced Irradia Routine Lab 06/04/25 00:40 Results Completed Studies During Hospitalization Category Date Time Status CT chest abdomen pelvis [CT chest abdpel w/*[id number] Cat Scan 06/04/25 10:32 Completed ] Stat CT head wo con* [id number] Stat Cat Scan 06/04/25 10:[address] lumbar spine wo con* [id number] Stat Cat Scan 06/03/25 21:[address] thoracic spin wo con* [id number] Stat Cat Scan 06/03/25 21:16 Completed XR chest 1V portable [id number] Stat Exams 06/03/25 20:10 Completed MR lumbar spine wo/w con [id number] Stat MRI 06/04/25 08:00 Completed MR thoracic spine wo/w [id number] Stat MRI 06/04/25 08:00 Completed Laboratory Last Values WBC 2.54 10^3/uL (3.29-11.43) L 06/04/25 12:20 WBC Cancelled 06/04/25 12:20 Corrected WBC Cancelled 06/04/25 12:20 RBC 3.54 10^6/uL (3.85-5.65) L 06/04/25 12:20 RBC Cancelled 06/04/25 12:20 Hgb 12.00 g/dL (11.27-16.99) 06/04/25 12:20 Hgb Cancelled 06/04/25 12:20 Hct 34.2 % (37-53) L 06/04/25 12:20 Hct Cancelled 06/04/25 12:20 MCV 96.6 fl (82-101) 06/04/25 12:20 MCV Cancelled 06/04/25 12:20 MCH 33.9 pg (27-33) H 06/04/25 12:20 MCH Cancelled 06/04/25 12:20 MCHC 35.1 g/dL (30-55) 06/04/25 12:20 MCHC Cancelled 06/04/25 12:20 RDW 14.0 % (12.1-15.1) 06/04/25 12:20 RDW Cancelled 06/04/25 12:20 Plt Count 24 10^3/cmm (157-399) L* D 06/04/25 12:20 Plt Count Cancelled 06/04/25 12:20 MPV Cancelled 06/04/25 12:20 MPV Not Reportable 06/04/25 12:20 Neut % (Auto) 6.3 % 06/04/25 04:12 Lymph % (Auto) Not Reportable 06/04/25 12:20 Coos % (Auto) Not Reportable 06/04/25 12:20 Eos % (Auto) 6.8 % 06/04/25 04:12 Baso % (Auto) 1.1 % 06/04/25 04:12 Neut # (Auto) Not Reportable 06/04/25 12:20 Lymph # (Auto) Not Reportable 06/04/25 12:20 Co[place] # (Auto) Not Reportable 06/04/25 12:20 Eos # (Auto) 0.1 10^3/uL (0.0-0.8) 06/04/25 04:12 Baso # (Auto) 0.0 10^3/uL (0.0-0.1) 06/04/25 04:12 Nucleated RBC % (auto) 1.1 % 06/04/25 04:12 Total Counted 50 (0-100) 06/04/25 12:20 Total Counted Cancelled 06/04/25 12:20 Atypical Lymphs % 14.0 % (0-5) H 06/04/25 12:20 Atypical Lymphs % Cancelled 06/04/25 12:20 Absolute Neutrophils 0.0 10^3/cmm (1.4-6.5) L* 06/04/25 12:20 Absolute Neutrophils Cancelled 06/04/25 12:20 Segmented Neutrophils 0 % 06/04/25 12:20 Segmented Neutrophils Cancelled 06/04/25 12:20 Abs Segm Neuts (Man) Cancelled 06/04/25 12:20 Band Neutrophils 0.0 % 06/04/25 12:20 Band Neutrophils Cancelled 06/04/25 12:20 Abs Band Neuts (Man) Cancelled 06/04/25 12:20 Absolute Lymphocytes 2.2 10^3/cmm (1.2-3.4) 06/04/25 12:20 Absolute Lymphocytes Cancelled 06/04/25 12:20 Lymphocytes (Manual) 74 % 06/04/25 12:20 Lymphocytes (Manual) Cancelled 06/04/25 12:20 Monocytes (Manual) 8.0 % 06/04/25 12:20 Monocytes (Manual) Cancelled 06/04/25 12:20 Absolute Monocytes 0.2 10^3/cmm (0.1-0.6) 06/04/25 12:20 Absolute Monocytes Cancelled 06/04/25 12:20 Eosinophils (Manual) 0 % 06/04/25 12:20 Eosinophils (Manual) Cancelled 06/04/25 12:20 Absolute Eosinophils 0.0 10^3/cmm (0.0-0.7) 06/04/25 12:20 Absolute Eosinophils Cancelled 06/04/25 12:20 Basophils (Manual) 2.0 % 06/04/25 12:20 Basophils (Manual) Cancelled 06/04/25 12:20 Absolute Basophils 0.1 10^3/cmm (0.0-0.2) 06/04/25 12:20 Absolute Basophils Cancelled 06/04/25 12:20 Metamyelocytes Cancelled 06/04/25 12:20 Myelocytes Cancelled 06/04/25 12:20 Promyelocytes 2.0 % 06/04/25 12:20 Promyelocytes Cancelled 06/04/25 12:20 Nucleated RBCs Cancelled 06/04/25 12:20 Nucleated RBCs # 0.0 /100WBC 06/04/25 04:12 Pathologist Review Cancelled 06/04/25 12:20 Hypersegmented Polys Cancelled 06/04/25 12:20 Blast Cells Cancelled 06/04/25 12:20 Smudge Cells 1+ H 06/04/25 12:20 Smudge Cells Cancelled 06/04/25 12:20 Toxic Granulation Cancelled 06/04/25 12:20 Toxic Vacuolation Cancelled 06/04/25 12:20 Dohle Bodies Cancelled 06/04/25 12:20 Nancy Rods Cancelled 06/04/25 12:20 Platelet Estimate Cancelled 06/04/25 12:20 Platelet Estimate Decreased (Normal) 06/04/25 12:20 Giant Platelets Cancelled 06/04/25 12:20 Polychromasia Cancelled 06/04/25 12:20 Hypochromasia Cancelled 06/04/25 12:20 Poikilocytosis Cancelled 06/04/25 12:20 Basophilic Stippling Cancelled 06/04/25 12:20 Anisocytosis Cancelled 06/04/25 12:20 Microcytosis Cancelled 06/04/25 12:20 Macrocytosis Cancelled 06/04/25 12:20 Spherocytes Cancelled 06/04/25 12:20 Sickle Cells Cancelled 06/04/25 12:20 Target Cells Cancelled 06/04/25 12:20 Tear Drop Cells Cancelled 06/04/25 12:20 Ovalocytes Cancelled 06/04/25 12:20 Stomatocytes Cancelled 06/04/25 12:20 Helmet Cells Cancelled 06/04/25 12:20 Carter-Mosheim Bodies Cancelled 06/04/25 12:20 [place] Cells Cancelled 06/04/25 12:20 Crenated Cell Cancelled 06/04/25 12:20 Acanthocytes (Spur) Cancelled 06/04/25 12:20 Rouleaux Cancelled 06/04/25 12:20 Schistocytes Cancelled 06/04/25 12:20 RBC Morph Comment Cancelled 06/04/25 12:20 Peripher Smr Path Cons Sent for review 06/04/25 12:20 Sodium 141 mmol/L (136-145) 06/04/25 04:12 Potassium 3.9 mmol/L (3.5-5.1) 06/04/25 04:12 Chloride 103 mmol/L (98-107) 06/04/25 04:12 Carbon Dioxide 26 mmol/L (22-29) 06/04/25 04:12 Anion Gap 15.9 (5-19) 06/04/25 04:12 BUN 5 mg/dL (6-20) L 06/04/25 04:12 Creatinine 0.6 mg/dL (0.7-1.2) L 06/04/25 04:12 GFR Calculation 162.9 mL/min (90-130) H 06/04/25 04:12 Glucose 154 mg/dL (65-115) H 06/04/25 04:12 Calculated Osmolality 292 mOsm/kg (285-295) 06/04/25 04:12 Lactic Acid 2.0 mmol/L (0.5-2.2) 06/03/25 20:28 Calcium 8.7 mg/dL (8.5-10.5) 06/04/25 04:12 Total Bilirubin 0.4 mg/dL (0.15-1.2) 06/04/25 04:12 AST 83 U/L (0-40) H 06/04/25 04:12 ALT 51 U/L (0-41) H 06/04/25 04:12 Alkaline Phosphatase 88 U/L (40-130) 06/04/25 04:12 C-Reactive Protein 25.0 mg/L (0.0-4.9) H 06/03/25 20:28 Total Protein 6.1 g/dL (6.6-8.7) L 06/04/25 04:12 Albumin 4.1 g/dL (3.5-5.2) 06/04/25 04:12 Globulin 2.0 g/dL (1.3-4.6) 06/04/25 04:12 Procalcitonin 0.38 ng/mL (0-0.5) 06/03/25 20:28 Urine Color Yellow (Yellow) 06/03/25 22:16 Urine Appearance Clear (CLEAR) 06/03/25 22:16 Urine pH 7.0 (5-7) 06/03/25 22:16 Ur Specific Arrey 1.006 (1.005-1.030) 06/03/25 22:16 Urine Protein Negative (Negative) 06/03/25 22:16 Urine Glucose (UA) Negative (Normal) 06/03/25 22:16 Urine Ketones Negative (Negative) 06/03/25 22:16 Urine Blood Negative (Negative) 06/03/25 22:16 Urine Nitrate Negative (Negative) 06/03/25 22:16 Urine Bilirubin Negative (Negative) 06/03/25 22:16 Urine Urobilinogen 0.2 mg/dL (Negative) 06/03/25 22:16 Ur Leukocyte Esterase Negative (Negative) 06/03/25 22:16 Urine RBC 0-2 /hpf (0-2) 06/03/25 22:16 Urine WBC 0-5 /hpf (0-5) 06/03/25 22:16 Ur Squamous Epith Cells 0-5 /hpf (0-5) 06/03/25 22:16 Amorphous Sediment Not Reportable 06/03/25 22:16 Urine Bacteria None seen /hpf (NONE) 06/03/25 22:16 Hyaline Casts 0-4 /lpf H 06/03/25 22:16 Influenza A (PCR) Negative (Negative) 06/03/25 21:50 Influenza Type B (PCR) Negative (Negative) 06/03/25 21:50 RSV (PCR) Negative (Negative) 06/03/25 21:50 SARS-CoV-2 (PCR) Negative (Negative) 06/03/25 21:50 Blood Type O Positive 06/04/25 00:40 Rho(D) Type Rh positive 06/04/25 00:40 Antibody Screen Negative 06/04/25 00:40 Crossmatch See Detail 06/04/25 00:40 Radiology Impressions Chest X-Ray 06/03/25 20:10 IMPRESSION: No acute findings. Lumbar Spine CT 06/03/25 21:16 IMPRESSION: 1. No acute fracture or compression deformity. 2. No subluxations. 3. No substantial degenerative change. 4. L5-S1 posterior disc bulge. Nonemergent MRI lumbar spine without contrast can be obtained if clinically indicated. Thoracic Spine CT 06/03/25 21:16 IMPRESSION: No acute thoracic spine fracture. Lumbar Spine MRI 06/04/25 08:00 IMPRESSION: 1. Counting performed from the craniocervical junction. 6 lumbar vertebral bodies for the purposes of this dictation 2. 2. Diffuse uniform replacement of normal fatty T1 bone marrow signal most likely due to diffuse marrow infiltration from known leukemia. 3. No discitis or osteomyelitis. 4. Mild to moderate central canal stenosis L5-6 with impingement of the traversing nerve roots. Thoracic Spine MRI 06/04/25 08:00 IMPRESSION: Some images limited by motion artifact. 1. Diffuse replacement of the normal T1 fatty bone marrow signal throughout the visualized spine most likely due to diffuse marrow infiltration from known leukemia. 2. No acute compression fractures. 3. No evidence of discitis or osteomyelitis Chest/Abdomen/Pelvis CT 06/04/25 10:32 IMPRESSION: 1. Very small opacifications in the LEFT upper lobe. The largest is 5 mm and slightly spiculated. Suspect an area of pneumonitis. 2. No adenopathy in the chest, abdomen or pelvis. 3. Very small amount of free fluid in the RIGHT lower quadrant. 4. Normally distended gallbladder with multiple folds with mild enhancement. There is no adjacent inflammation to suggest acute cholecystitis. Gallbladder can be further evaluated by ultrasound if there is RIGHT upper quadrant symptoms. 5. No intra paddock duct dilatation. 6. Normal size spleen. 7. RIGHT subclavian Mediport. Head CT 06/04/25 10:32 IMPRESSION: 1. No acute intracranial hemorrhage or edema. 2. No prior infarct. 3. RIGHT frontal [employer]UFACT[employer]ING SU[employer] shunt catheter with tip terminating near the third ventricle. 4. No hydrocephalus. Recent Clincial Data Last Vital Signs Temp 98.1 F 06/04/25 14:08 Pulse 70 06/04/25 14:02 Resp 13 06/04/25 14:02 BP 124/84 06/04/25 14:02 Pulse Ox 96 06/04/25 14:02 O2 Del Method Room Air 06/04/25 12:30 Vital Signs Temp Pulse Resp BP Pulse Ox O2 Del Method 06/04/25 14:08 98.1 F 06/04/25 14:02 98.1 F 70 13 124/84 96 06/04/25 13:59 12 21 L 06/04/25 12:30 62 12 124/84 96 Room Air 06/04/25 12:00 58 L 19 H 125/73 97 Room Air 06/04/25 11:30 12 125/73 97 Room Air 06/04/25 11:00 17 125/73 96 Room Air 06/04/25 10:30 61 17 125/73 96 Room Air 06/04/25 10:00 62 17 125/73 96 Room Air 06/04/25 09:30 61 17 125/73 96 Room Air 06/04/25 09:00 62 14 125/73 96 Room Air 06/04/25 08:30 84 11 L 125/73 95 Room Air 06/04/25 08:00 67 12 127/81 Room Air 06/04/25 07:58 98.2 F 63 16 96 06/04/25 07:30 68 15 127/81 95 Room Air 06/04/25 07:07 16 96 06/04/25 07:00 67 12 127/81 96 Room Air 06/04/25 06:16 18 95 06/04/25 05:53 65 06/04/25 04:00 98.3 F 68 26 H 127/86 95 Intake & Output/Weight 06/02/25 06/03/25 06/04/25 06/05/25 06:59 06:59 06:59 06:59 Intake Total 2850 / 2850 1323 / 1323 Output Total 1400 / 1400 Balance 2850 / 2850 -77 / -77 Weight 78 kg Vitals Last Vital Signs Temp 98.1 F 06/04/25 14:08 Pulse 70 06/04/25 14:02 Resp 13 06/04/25 14:02 BP 124/84 06/04/25 14:02 Pulse Ox 96 06/04/25 14:02 O2 Del Method Room Air 06/04/25 12:30 TS Medications Medications Acetaminophen (Acetaminophen 325 Mg Tablet) 650 mg PO Q6H PRN PRN Reason: Mild/Mod Pain Or Temp >/= 101 Hydromorphone HCl (Hydromorphone 0.5 Mg/0.5 Ml Inj) 1 mg IVP Q4H PRN PRN Reason: MODERATE TO SEVERE PAIN Last Admin: 06/04/25 14:57 Dose: 1 mg Potassium Chloride/Sodium Chloride (Sodium Chlor 0.9% + Kcl 20 Meq) 20 meq in 1,000 mls @ 100 mls/hr IV .Q10H JORDAN Last Admin: 06/04/25 11:27 Dose: 100 mls/hr Meropenem 2,000 mg/ Sodium (Chloride) 50 mls @ 100 mls/hr IV Q8H [facility]; Protocol Last Infusion: 06/04/25 12:23 Dose: Infused Vancomycin HCl 1,000 mg/ (Sodium Chloride) 250 mls @ 250 mls/hr IV Q8H [facility] Sodium Chloride (Sodium Chloride 0.9%) 1,000 mls @ 75 mls/hr IV .[id number] [facility] Last Admin: 06/04/25 12:33 Dose: 75 mls/hr Lidocaine (Lidocaine 5% Patch) 1 patch TOPICAL [id number] [facility] Last Admin: 06/04/25 11:22 Dose: 1 patch Ondansetron HCl (Ondansetron 2 Mg/Ml Sdv 2 Ml) 4 mg IVP Q8H PRN PRN Reason: vomiting, or N/V if npo Oxycodone HCl (Oxycodone 5 Mg Ir Tab/Cap) 5 mg PO Q6H PRN PRN Reason: SEVERE PAIN Last Admin: 06/04/25 13:59 Dose: 5 mg Pantoprazole Sodium (Pantoprazole Dr 40 Mg Tablet) 40 mg PO BID [facility] Last Admin: 06/04/25 11:22 Dose: 40 mg Sodium Chloride (Sodium Chloride 0.9% 100 Ml Bag) 50 ml IV PRN PRN PRN Reason: Blood transfusion prime and flush Stop: 06/05/25 07:52 Valacyclovir HCl (Valacyclovir 1,000 Mg Tablet) 500 mg PO BID [facility] Last Admin: 06/04/25 11:21 Dose: 500 mg Discontinued Medications Cefepime HCl (Cefepime 2,000 Mg Sdv) 2,000 mg IVP ONCE STA; Protocol Stop: 06/03/25 20:10 Last Admin: 06/03/25 21:00 Dose: 2,000 mg Dexamethasone (Dexamethasone 4 Mg/Ml Inj) 4 mg IVP ONCE ONE Stop: 06/04/25 00:54 Last Admin: 06/04/25 01:24 Dose: 4 mg Gadobenate Dimeglumine (Gadobenate Dimeglumine 20 Ml Vial) 16 ml IV ONCE ONE Stop: 06/04/25 10:41 Last Admin: 06/04/25 10:40 Dose: 16 ml Hydromorphone HCl (Hydromorphone 0.5 Mg/0.5 Ml Inj) 1 mg IM Q4H PRN PRN Reason: MODERATE TO SEVERE PAIN Last Admin: 06/04/25 11:23 Dose: 1 mg Linezolid (Zyvox Premix) 600 mg in 300 mls @ 300 mls/hr IV ONCE ONE; Protocol Stop: 06/03/25 21:08 Last Infusion: 06/03/25 22:47 Dose: Infused Sodium Chloride (Sodium Chloride 0.9%) 1,000 mls @ 999 mls/hr IV .Q1H1M ONE Stop: 06/03/25 21:09 Last Infusion: 06/03/25 23:04 Dose: Infused Sodium Chloride (Sodium Chloride 0.9%) 500 mls @ 999 mls/hr IV .Q31M STA Stop: 06/03/25 20:39 Last Infusion: 06/03/25 23:03 Dose: Infused Sodium Chloride (Sodium Chloride 0.9%) 1,000 mls @ 999 mls/hr IV .Q1H1M ONE Stop: 06/03/25 21:09 Last Infusion: 06/03/25 23:03 Dose: Infused Vancomycin HCl / Sodium (Chloride) 250 mls @ 0 mls/hr [id number] PROTOCOL JORDAN; Protocol Vancomycin HCl (Vancocin) 2,000 mg in 400 mls @ 200 mls/hr IV ONCE ONE Stop: 06/04/25 09:59 Last Admin: 06/04/25 12:22 Dose: Not Given Vancomycin HCl (Vancocin) 2,000 mg in 400 mls @ 200 mls/hr IV ONCE ONE Stop: 06/04/25 13:59 Last Admin: 06/04/25 12:32 Dose: 200 mls/hr Iohexol (Iohexol 350 Mg/Ml 500 Ml Btl (Per Ml)) 0 ml IV ONCE ONE Stop: 06/04/25 11:21 Last Admin: 06/04/25 11:20 Dose: 100 ml Linezolid (Linezolid 600 Mg Tablet) 600 mg PO Q12H JORDAN; Protocol Morphine Sulfate (Morphine 4 Mg/Ml Sdv 1 Ml) 4 mg IVP ONCE ONE Stop: 06/03/25 22:21 Last Admin: 06/03/25 22:46 Dose: 4 mg Morphine Sulfate (Morphine 4 Mg/Ml Sdv 1 Ml) 4 mg IVP Q4H PRN PRN Reason: SEVERE PAIN Last Admin: 06/04/25 07:07 Dose: 4 mg Allergies No Known Allergies Allergy (Verified 06/03/25 08:59) Home Medications polyethylene glycol 3350 17 gram/dose oral powder 4 g PO DAILY PRN Constipation 04/25/24 [History Confirmed 06/04/25] sennosides 8.6 mg tablet 8.6 mg PO BID PRN Constipation 04/25/24 [History Confirmed 06/04/25] sertraline 50 mg tablet 50 mg PO DAILY 11/04/24 [History Confirmed 06/04/25] morphine 15 mg tablet,extended release 15 mg PO DAILY PRN Pain 11/15/24 [History Confirmed 06/04/25] fluconazole 100 mg tablet 100 mg PO DAILY fungal infection prevention #90 tabs 11/25/24 [Rx Confirmed 06/04/25] valacyclovir 500 mg tablet 500 mg PO BID #60 tabs 11/25/24 [Rx Confirmed 06/04/25] lidocaine-prilocaine 2.5 %-2.5 % topical cream 1 applic topical .COMPLEX #30 grams 01/28/25 [Rx Confirmed 06/04/25] mercaptopurine 50 mg tablet 50 mg PO TID #90 tabs 02/26/25 [Rx Confirmed 06/04/25] hydrocodone 5 mg-acetaminophen 325 mg tablet 1 tab PO Q8H PRN Pain, Moderate 06/04/25 [History Confirmed 06/04/25] methotrexate sodium 2.5 mg tablet See Rx Instructions .Route .COMPLEX 06/04/25 [History Confirmed 06/04/25] ofloxacin 0.3 % ear drops 4 drp otic (ear) BID [id number] 06/04/25 [History Confirmed 06/04/25] prednisone 50 mg tablet See Rx Instructions .Route .COMPLEX 06/04/25 [History Confirmed 06/04/25] sulfamethoxazole 800 mg-trimethoprim 160 mg tablet (Bactrim DS) See Rx Instructions .Route .COMPLEX 06/04/25 [History Confirmed 06/04/25] Discharge Plan Discharge Patient Disposition: Xfer Short-Term Hosp Condition: Stable Prescriptions: No Action polyethylene glycol 3350 17 gram/dose powder 4 g PO DAILY PRN (Reason: Constipation) sennosides 8.6 mg tablet 8.6 mg PO BID PRN (Reason: Constipation) sertraline 50 mg tablet 50 mg PO DAILY morphine 15 mg tablet extended release 15 mg PO DAILY PRN (Reason: Pain) lidocaine-prilocaine 2.5-2.5 % cream 1 applic topical .COMPLEX Qty: 30 2RF Rx Instructions: Apply quarter-size amount to port site 30 minutes prior to access; cover with cling wrap fluconazole 100 mg tablet 100 mg PO DAILY Qty: 90 2RF valacyclovir 500 mg tablet 500 mg PO BID Qty: 60 5RF mercaptopurine 50 mg tablet 50 mg PO TID Qty: 90 5RF ofloxacin 0.3 % drops 4 drp otic (ear) BID hydrocodone-acetaminophen 5-325 mg tablet 1 tab PO Q8H PRN (Reason: Pain, Moderate) sulfamethoxazole-trimethoprim [Bactrim DS] 800-160 mg tablet See Rx Instructions .ROUTE .COMPLEX Rx Instructions: Take 1 tablet by mouth on Monday, Monday and Monday. methotrexate sodium 2.5 mg tablet See Rx Instructions .ROUTE .COMPLEX Rx Instructions: Take 16 tablets by mouth every 7 days prednisone 50 mg tablet See Rx Instructions .ROUTE .COMPLEX Rx Instructions: Take 200mg (4 tablets) by mouth on days 1-5 of a 28 day cycle Patient Instructions: Opioid Safety, Patient Portal & Jonny Instructions Transfer Attestations Time Spent in Transfer Care: greater than 30 min Quality Metrics Clinical Quality Measures [ No reported AMI, CVA or VTE this stay] Coding Level of Care Code 79324 Total time (in minutes) for Discharge: 45 Diagnoses Fever and neutropenia D70.9; R50.81 Low back pain M54.50 Thrombocytopenia D69.6 Acute lymphoblastic leukemia (ALL) C91.01 Leukemia Active/Remission status: in remission Abnormal finding on CT scan R93.89
--- NOTE | 2025-06-04 16:20 | PC.NURSE ---
Patient transported from ICU 6 to oncology room 10 by [facility] at this time. No change in assessment. Patient is stable, AAOx4
== END 2025-06-04 16:15 | disposition short-term general hospital (02) | DRG 809 ==
LOC: ER 22:31 → ER IP 22:41 → ICU 06-04 02:46
PROVIDERS: Admitting Provider Internal Medicine; Emergency Provider Emergency Medicine; Visit Provider Family Medicine
DX: D70.1 Agranulocytosis secondary to cancer chemotherapy (principal); C91.00 Acute lymphoblastic leukemia not having achieved remission; T45.1X5A Adverse effect of antineoplastic and immunosuppressive drugs, initial encounter; D70.9 Neutropenia, unspecified; R50.81 Fever presenting with conditions classified elsewhere; M54.50 Low back pain, unspecified; D69.59 Other secondary thrombocytopenia; F81.9 Developmental disorder of scholastic skills, unspecified; D61.811 Other drug-induced pancytopenia; Z79.631 Long term (current) use of antimetabolite agent; Z95.828 Presence of other vascular implants and grafts; Z98.2 Presence of cerebrospinal fluid drainage device
CPT/HCPCS: 36415; 36430; 70450; 71045; 71260; 72128; 72131; 72157; 72158; 74177; 80053; 80503; 81001; 83605; 84145; 85007; 85025; 86140; 86850; 86900; 86920; 87040; 87637; 96361; 96365; 96375; 99291; J0692; J1100; J1171; J2020; J2185; J2270; J3372; J3480; J7030; J7040; J9999; P9016; P9037

== ENCOUNTER 2025-07-02 19:56 | Emergency (ER) | payer MEDICAID, SELFPAY ==
[2025-07-02 20:12] VITALS: BP 118/79; PULSE 121; TEMP 36.9; O2SAT 96
[2025-07-02 22:25] VITALS: BP 123/81; PULSE 114; O2SAT 97
[2025-07-02 22:30] VITALS: BP 133/81; PULSE 109; O2SAT 97
--- NOTE | 2025-07-02 22:44 | ED_ITS ---
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 He was sent to the emergency room for further treatment with his underlying thrombocytopenia. I reviewed Dr. Ruvalcaba's note which is nothing as the patient's history portray. He is actively on chemotherapy. He had a return in his bone marrow of the AL L and is working with [facility]/ now. Dr. Ruvalcaba's note reviewed, as well as discussed with Dr. Ruvalcaba. Platelets are now 47 with previous today at 7. This no longer qualifies for platelet transfusion. I did call the lab and discussed with the lab, however they have already ordered the platelets. As well his hemoglobin is down to 6.8, previously 7.8 today. He will require PRBC transfusion. Description of abnormal result: Platelets were 7, now 47. Hemoglobin was 8.1, now 6.8 Related Data Home Medications ?Medication ?Instructions ?Recorded ?Confirmed polyethylene glycol 3350 17 4 g PO DAILY PRN Constipat ion 04/25/24 06/04/25 gram/dose oral powder sennosides 8.6 mg tablet 8.6 mg PO BID PRN Constipati on 04/25/24 06/04/25 sertraline 50 mg tablet 50 mg PO DAILY 11/04/2405/19 hydrocodone 5 mg-acetaminophen 325 1 tab PO Q8H PRN Pa in, Moderate 06/04/25 06/04/25 mg tablet methotrexate sodium 2.5 mg tablet See Rx Instructions .Route .COMPLEX 06/04/25 06/04/25 ofloxacin 0.3 % ear drops 4 drp otic (ear) BID [id number] 06/04/25 06/04/25 prednisone 50 mg tablet See Rx Instructions .Route . COMPLEX 06/04/25 06/04/25 sulfamethoxazole 800 See Rx Instructions .Route . COMPLEX 06/04/25 06/04/25 mg-trimethoprim 160 mg tablet (Bactrim DS) Previous Rx's ?Medication ?Instructions ?Recorded fluconazole 100 mg tablet 100 mg PO DAILY fungal infec tion 11/25/24 prevention #90 tabs lidocaine-prilocaine 2.5 %-2.5 % 1 applic topical .Nexus Dx PLEX #30 grams 01/28/25 topical cream mercaptopurine 50 mg tablet 50 mg PO TID #90 tabs 02/16 10/12 hydrocodone 7.5 mg-acetaminophen 1 tab PO Q6H PRN pain 30 days #90 06/05/25 325 mg tablet tabs morphine 15 mg tablet,extended 15 mg PO DAILY PRN Pain 30 days 06/05/25 release #60 tabs valacyclovir 500 mg tablet 500 mg PO BID #60 tabs 03/12 Allergies Allergy/AdvReac Type Severity Reaction Status Date / Time No Known Allergies Allergy Verified 07/02/25 20:18 Review of Systems 2 General: Reports: 10 or more systems reviewed and unremarkable except in HPI and below Const: Denies: fever(s), chills, fatigue or malaise Eyes: Denies: change in vision or blurry vision ENMT: Denies: throat pain, uvular edema, nasal obstruction or post nasal drip Card: Denies: chest pain or palpitations Resp: Denies: dyspnea or productive cough GI: Denies: abdominal pain, nausea or vomiting : Denies: flank pain or difficulty urinating Musc: Denies: neck pain, back pain or extremity pain Skin/Breast: Denies: rash or pruritus Neuro: Denies: headache(s) or numbness in extremities Psych: Denies: anxiety or depression Junior/Lymph: Denies: easy bruising or easy bleeding PFSH ED 2 PFSH: Medical History (Updated 07/03/25 @ 01:35 by JENNIFER Tate) Fever and neutropenia Pancytopenia Acute leukemia Poor dentition Surgical History (Updated 06/03/25 @ 10:06 by Gunjan Perales NP) History of brain shunt Social History (Updated 06/03/25 @ 22:08 by Max Luna MD) Smoking and tobacco/nicotine status: never used tobacco/nicotine Alcohol intake: never Substance/Drug Use: current Other substance/drug use details: He vapes cannabis pen 10 hits a day , runs out each month Additional social history: 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 He wants full CODE STATUS as discussed today with Max Luna MD in the presence of his brother Terry. His Sister Shena Hernandes is his next of kin. Patient states he dropped out of high school. Documented to have intellectual delay Physical Exam 2 Const: COMMON NORMALS: no acute distress (Pale), average body habitus, patient oriented x3 and alert (Poor historian) HENMT: THROAT: no uvular edema Lymph: LYMPHATIC: no lymphadenopathy noted Chest: OTHER: Bilateral upper chest Port-A-Cath GI: COMMON NORMALS: Normal to inspection, nondistended, normoactive bowel sounds present, Soft to palpation and non-tender PALPATION: Yes Soft to palpation : COMMON NORMALS: Yes no CVA tenderness BLADDER/KIDNEY EXAM: Yes no CVA tenderness Back/Pelvis: COMMON NORMALS: no CVA tenderness Extremity: COMMON NORMALS: normal to inspection, full ROM and capillary refill normal Neuro: COMMON NORMALS: patient oriented x3, CN's II-XII intact bilaterally and moves all extremities SENSORIUM/ORIENTATION: Yes alert (Poor historian) Psych: COMMON NORMALS: mental status grossly normal and cooperative Skin: COMMON NORMALS: no rashes or lesions noted, no jaundice and no petechiae NARRATIVE SKIN EXAM: Minimal ecchymosis to right shoulder GENERAL SKIN EXAM: no rashes or lesions noted Course 2 Consultations: Consultation #1: Discussed with Dr. Ruvalcaba. Patient is on active chemo. [facility] is currently handling coordination of care, however patient did he get his labs today. Vital Signs: Vital signs: Vital Signs Temperature 98.5 F 07/03/25 01:15 Pulse Rate 99 07/03/25 01:15 Blood Pressure 125/75 07/03/25 01:15 Pulse Oximetry 97 07/03/25 01:15 Oxygen Delivery Me thod Room Air 07/03/25 00:30 MDM - Recheck/Abnormal Lab/Rx Medical Decision Making Patient is a no historian. Dr. Ruvalcaba states this is baseline for AL L patient. Patient's sister mainly notes that history. He is on active chemo. His platelets this morning here at this institution were 7. Now his platelets are 47. Initially ordered platelets with his 7 reading, now he does not need them at 47. However his hemoglobin has decreased to 6.8, which needs a additional unit of packed red blood cells. He came in for abnormal labs. There are no complaints from patient other than he supposed to be here. He is post to go to [facility] in the morning. He obviously cannot have chemotherapy at this time, and suspect that bone marrow stimulator will be given at that time, which will defer to primary hospital. He will receive packed red blood cells here, received dexamethasone, and will be sent home to follow-up with [facility] today, as planned. Medical Records I reviewed the patient's medical records. Lab Data I reviewed the patient's lab results. 07/02/25 22:49 07/02/25 22:49 Laboratory Results WBC 0.36 10^3/uL (3.29-11.43) L* 07/02/25 22:49 RBC 2.31 10^6/uL (3.85-5.65) L 07/02/25:49 Hgb 6.80 g/dL (11.27-16.99) L 07/02/25 22:49 Hct 19.6 % (37-53) L* 07/02/25: MCV 84.8 fl (82-101) 07/02/25 22:49 MCH 29.4 pg (27-33) 07/02/25: MCHC 34.7 g/dL (30-55) 07/02/25: RDW 14.6 % (12.1-15.1) 07/02/25: Plt Count 47 10^3/cmm (157-399) L D 07/02/25:49 MPV 10.4 fL (7.4-10.4) 07/02/25:49 Neut % (Auto) 33.2 % 07/02/25:49 Lymph % (Auto) 58.6 % 07/02/25:49 [place] % (Auto) 2.6 % 07/02/25: Eos % (Auto) 0.0 % 07/02/25: Baso % (Auto) 0.0 % 07/02/25: Neut # (Auto) 0.12 10^3/uL (1.8-7.7) L* 07/02/25 22:49 Lymph # (Auto) 0.2 10^3/uL (0.8-4.8) L 07/02/25:49 [place] # (Auto) 0.0 10^3/uL (0.2-0.9) L 07/02/25 22:49 Eos # (Auto) 0.0 10^3/uL (0.0-0.8) 07/02/25 22:49 Baso # (Auto) 0.0 10^3/uL (0.0-0.1) 07/02/25 22:49 Nucleated RBC % (auto) 0 % 07/02/25: Nucleated RBCs # 0.0 /100WBC 07/02/25 22:49 Haptoglobin 301.0 mg/L (30-200) H 07/02/25 22:49 PT 13.20 SECONDS (12.1-14.9) 07/02/25: INR 0.93 (0.8-1.2) 07/02/25 22:49 Sodium 135 mmol/L (136-145) L 07/02/25 22:49 Potassium 4.3 mmol/L (3.5-5.1) 07/02/25: Chloride 95 mmol/L (98-107) L 07/02/25:49 Carbon Dioxide 25 mmol/L (22-29) 07/02/25:49 Anion Gap 19.3 (5-19) H 07/02/25:49 BUN 13 mg/dL (6-20) 07/02/25:49 Creatinine 0.6 mg/dL (0.7-1.2) L 07/02/25 22:49 GFR Calculation 162.9 mL/min (90-130) H 07/02/25 22:49 Glucose 99 mg/dL (65-115) 07/02/25 22:49 Calculated Osmolality 280 mOsm/kg (285-295) L 07/02/25:49 Calcium 9.2 mg/dL (8.5-10.5) 07/02/25:49 Total Bilirubin 0.7 mg/dL (0.15-1.2) 07/02/25 22:49 AST 32 U/L (0-40) 07/02/25:49 ALT 15 U/L (0-41) 07/02/25 22:49 Alkaline Phosphatase 112 U/L (40-130) 07/02/25 22:49 Total Protein 6.6 g/dL (6.6-8.7) 07/02/25 22:49 Albumin 4.1 g/dL (3.5-5.2) 07/02/25 22:49 Globulin 2.5 g/dL (1.3-4.6) 07/02/25 22:49 Blood Type O Positive 07/02/25 22:49 Rho(D) Type Rh positive 07/02/25 22:49 Antibody Screen Negative 07/02/25 22:49 Crossmatch See Detail 07/02/25 22:49 No radiology studies performed this visit Discharge Plan Discharge Patient Disposition: Home Clinical Impression: Thrombocytopenia, Pancytopenia Anemia Qualifiers: Anemia type: bone marrow failure Bone marrow failure anemia type: pancytopenia, antineoplastic chemotherapy-induced Qualified Code(s): D61.810 - Antineoplastic chemotherapy induced pancytopenia Condition: Stable Prescriptions: No Action polyethylene glycol 3350 17 gram/dose powder 4 g PO DAILY PRN (Reason: Constipation) sennosides 8.6 mg tablet 8.6 mg PO BID PRN (Reason: Constipation) sertraline 50 mg tablet 50 mg PO DAILY lidocaine-prilocaine 2.5-2.5 % cream 1 applic topical .COMPLEX Qty: 30 2RF Rx Instructions: Apply quarter-size amount to port site 30 minutes prior to access; cover with cling wrap hydrocodone-acetaminophen 7.5-325 mg tablet 1 tab PO Q6H PRN (Reason: pain) 30 Days Qty: 90 0RF morphine 15 mg tablet extended release 15 mg PO DAILY PRN (Reason: Pain) 30 Days Qty: 60 0RF fluconazole 100 mg tablet 100 mg PO DAILY Qty: 90 2RF mercaptopurine 50 mg tablet 50 mg PO TID Qty: 90 5RF valacyclovir 500 mg tablet 500 mg PO BID Qty: 60 5RF ofloxacin 0.3 % drops 4 drp otic (ear) BID hydrocodone-acetaminophen 5-325 mg tablet 1 tab PO Q8H PRN (Reason: Pain, Moderate) sulfamethoxazole-trimethoprim [Bactrim DS] 800-160 mg tablet See Rx Instructions .ROUTE .COMPLEX Rx Instructions: Take 1 tablet by mouth on Monday, Monday and Monday. methotrexate sodium 2.5 mg tablet See Rx Instructions .ROUTE .COMPLEX Rx Instructions: Take 16 tablets by mouth every 7 days prednisone 50 mg tablet See Rx Instructions .ROUTE .COMPLEX Rx Instructions: Take 200mg (4 tablets) by mouth on days 1-5 of a 28 day cycle Discharge Orders: Discharge ED (Routine); Ordered 07/03/25 Ordered By: Mikki Escalante Discharge Diet: Usual diet Discharge Activity: Resume usual activity and Limit activity as instructed Patient Instructions: Pancytopenia (DC), Patient Portal & Jonny Instructions Activity Restrictions/Additional Instructions: - You will need to follow-up with [facility] today - You did receive dexamethasone here - You did receive 1 unit packed red blood cells - Your platelets were 47, and therefore platelets were not transfused - You did not indicate any other complaints, and therefore antibiotics were not started -[facility]/ will want to see you today. Continue to wear your mask to avoid infection - They will not be giving you chemotherapy, however you need to redraw your lab with them, and discuss if you need to be admitted to their hospital. At this time, you do not have criteria for admission - Return to ED for continued issues with abnormal labs, if you develop symptoms. -Slipped/falling precautions. High risk for bleeding. Thank you for choosing [facility] for your healthcare needs today. You have been screened and evaluated and felt safe for discharge. Health conditions do change or evolve sometimes and as such it is important that you follow up with your Primary Doctor to be re checked, 3-5 days is a general good time frame for follow up. You are always welcome to return to the ED for re assessment if your symptoms are worsening or you have new concerns Print Language: Kyrgyz Coding Level of Care Code ED Software Program Manager for Marcelo Driscoll
[2025-07-02 22:57] LABS: Hemoglobin 6.80 g/dL (11.27-16.99); Mean Corpuscular HGB Conc 34.7 g/dL (30-55); Mean Corpuscular Hemoglobin 29.4 pg (27-33); Mean Corpuscular Volume 84.8 fl (82-101); Nucleated Red Blood Cells % 0 %; Platelet Count 47 10^3/cmm (157-399); Red Blood Count 2.31 10^6/uL (3.85-5.65)
[2025-07-02 23:00] VITALS: BP 121/76; PULSE 103; O2SAT 99
[2025-07-02 23:11] LABS: INR 0.93 (0.8-1.2); Prothrombin Time 13.20 SECONDS (12.1-14.9)
[2025-07-02 23:15] LABS: Alanine Aminotransferase 15 U/L (0-41); Albumin Level 4.1 g/dL (3.5-5.2); Alkaline Phosphatase 112 U/L (40-130); Anion Gap 19.3 (5-19); Aspartate Amino Transferase 32 U/L (0-40); Blood Urea Nitrogen 13 mg/dL (6-20); Calcium 9.2 mg/dL (8.5-10.5); Carbon Dioxide 25 mmol/L (22-29); Chloride 95 mmol/L (98-107); Creatinine Clr Calc Pharmacy 204.0727; Globulin 2.5 g/dL (1.3-4.6); Glucose 99 mg/dL (65-115); Osmolality Calculated 280 mOsm/kg (285-295); Potassium 4.3 mmol/L (3.5-5.1); Sodium 135 mmol/L (136-145); Total Protein 6.6 g/dL (6.6-8.7)
[2025-07-02 23:30] VITALS: BP 132/80; PULSE 106; O2SAT 97
[2025-07-02 23:37] LABS: Slide Review Slide Review Perform
[2025-07-02 23:39] LABS: Hematocrit 19.6 % (37-53); White Blood Count 0.36 10^3/uL (3.29-11.43)
[2025-07-03] VITALS (7 sets, daily range): BP systolic 119–135; BP diastolic 73–82; PULSE 86–103; RESP 16–17; TEMP 36.7–36.9; O2SAT 96–98
== END 2025-07-03 04:03 | disposition home or self-care (01) ==
PROVIDERS: Emergency Provider Physician Assistant
DX: D69.6 Thrombocytopenia, unspecified (principal); D61.818 Other pancytopenia; D61.810 Antineoplastic chemotherapy induced pancytopenia
CPT/HCPCS: 36415; 36430; 80053; 83010; 85025; 85610; 86850; 86900; 86920; 96361; 96374; 99284; J1100; J7030; P9040

== ENCOUNTER 2025-07-18 07:30 | Oncology outpatient (recurring) (ONCR) | payer MEDICAID, SELFPAY ==
[2025-06-30 11:53] LABS: Hematocrit 25.0 % (37-53); Hemoglobin 8.60 g/dL (11.27-16.99); Mean Corpuscular HGB Conc 34.4 g/dL (30-55); Mean Corpuscular Hemoglobin 29.6 pg (27-33); Mean Corpuscular Volume 85.9 fl (82-101); Nucleated Red Blood Cells % 0 %; Red Blood Count 2.91 10^6/uL (3.85-5.65)
[2025-06-30 12:11] LABS: Alanine Aminotransferase 15 U/L (0-41); Albumin Level 4.0 g/dL (3.5-5.2); Alkaline Phosphatase 94 U/L (40-130); Anion Gap 18.3 (5-19); Aspartate Amino Transferase 39 U/L (0-40); Blood Urea Nitrogen 8 mg/dL (6-20); Calcium 9.2 mg/dL (8.5-10.5); Carbon Dioxide 25 mmol/L (22-29); Chloride 99 mmol/L (98-107); Globulin 2.7 g/dL (1.3-4.6); Glucose 87 mg/dL (65-115); Osmolality Calculated 284 mOsm/kg (285-295); Potassium 4.3 mmol/L (3.5-5.1); Sodium 138 mmol/L (136-145); Total Protein 6.7 g/dL (6.6-8.7)
[2025-06-30 12:15] LABS: Platelet Count 14 10^3/cmm (157-399); White Blood Count 0.45 10^3/uL (3.29-11.43)
[2025-06-30 12:16] LABS: Slide Review Slide Review Perform
--- NOTE | 2025-06-30 13:21 | PC.NURSE ---
Changed pts central line dressing to left chest via sterile technique. No redness or irriation noted. Dried blood around insertion site. Cleaned with chloraprep, some dried blood remained. Pt not tolerating cleaning well. Good blood return in all 3 lumens.
[2025-07-02 08:21] LABS: Hematocrit 23.5 % (37-53); Hemoglobin 8.10 g/dL (11.27-16.99); Mean Corpuscular HGB Conc 34.5 g/dL (30-55); Mean Corpuscular Hemoglobin 29.0 pg (27-33); Mean Corpuscular Volume 84.2 fl (82-101); Nucleated Red Blood Cells % 0 %; Red Blood Count 2.79 10^6/uL (3.85-5.65)
[2025-07-02 08:37] LABS: Alanine Aminotransferase 15 U/L (0-41); Albumin Level 4.3 g/dL (3.5-5.2); Alkaline Phosphatase 121 U/L (40-130); Anion Gap 19.5 (5-19); Aspartate Amino Transferase 32 U/L (0-40); Blood Urea Nitrogen 10 mg/dL (6-20); Calcium 9.6 mg/dL (8.5-10.5); Carbon Dioxide 24 mmol/L (22-29); Chloride 96 mmol/L (98-107); Globulin 2.6 g/dL (1.3-4.6); Glucose 100 mg/dL (65-115); Osmolality Calculated 279 mOsm/kg (285-295); Potassium 4.5 mmol/L (3.5-5.1); Sodium 135 mmol/L (136-145); Total Protein 6.9 g/dL (6.6-8.7)
[2025-07-02 08:48] LABS: Slide Review Slide Review Perform
[2025-07-02 09:01] LABS: Platelet Count 7 10^3/cmm (157-399); White Blood Count 0.52 10^3/uL (3.29-11.43)
[2025-07-02 14:39] VITALS: BP 108/58; PULSE 115; TEMP 36.5; O2SAT 97
[2025-07-02 14:57] VITALS: BP 116/81; PULSE 107; TEMP 36.8; O2SAT 97
[2025-07-04 08:04] LABS: Hematocrit 21.5 % (37-53); Hemoglobin 7.60 g/dL (11.27-16.99); Mean Corpuscular HGB Conc 35.3 g/dL (30-55); Mean Corpuscular Hemoglobin 29.7 pg (27-33); Mean Corpuscular Volume 84.0 fl (82-101); Nucleated Red Blood Cells % 5.0 %; Platelet Count 29 10^3/cmm (157-399); Red Blood Count 2.56 10^6/uL (3.85-5.65)
[2025-07-04 08:40] LABS: Slide Review Slide Review Perform
[2025-07-04 08:43] LABS: Alanine Aminotransferase 13 U/L (0-41); Albumin Level 4.0 g/dL (3.5-5.2); Alkaline Phosphatase 110 U/L (40-130); Anion Gap 18.0 (5-19); Aspartate Amino Transferase 26 U/L (0-40); Blood Urea Nitrogen 13 mg/dL (6-20); Calcium 9.3 mg/dL (8.5-10.5); Carbon Dioxide 23 mmol/L (22-29); Chloride 103 mmol/L (98-107); Globulin 2.7 g/dL (1.3-4.6); Glucose 140 mg/dL (65-115); Osmolality Calculated 292 mOsm/kg (285-295); Potassium 4.0 mmol/L (3.5-5.1); Sodium 140 mmol/L (136-145); Total Protein 6.7 g/dL (6.6-8.7)
[2025-07-04 08:44] LABS: White Blood Count 0.40 10^3/uL (3.29-11.43)
[2025-07-04 09:47] VITALS: BP 120/69; PULSE 70; RESP 16; TEMP 36.3; O2SAT 98
[2025-07-07 07:50] LABS: Hematocrit 24.0 % (37-53); Hemoglobin 8.40 g/dL (11.27-16.99); Mean Corpuscular HGB Conc 35.0 g/dL (30-55); Mean Corpuscular Hemoglobin 29.7 pg (27-33); Mean Corpuscular Volume 84.8 fl (82-101); Nucleated Red Blood Cells % 2.6 %; Red Blood Count 2.83 10^6/uL (3.85-5.65)
[2025-07-07 08:08] LABS: Alanine Aminotransferase 11 U/L (0-41); Albumin Level 4.1 g/dL (3.5-5.2); Alkaline Phosphatase 120 U/L (40-130); Anion Gap 19.8 (5-19); Aspartate Amino Transferase 24 U/L (0-40); Blood Urea Nitrogen 12 mg/dL (6-20); Calcium 9.1 mg/dL (8.5-10.5); Carbon Dioxide 23 mmol/L (22-29); Chloride 96 mmol/L (98-107); Globulin 2.5 g/dL (1.3-4.6); Glucose 103 mg/dL (65-115); Osmolality Calculated 280 mOsm/kg (285-295); Potassium 3.8 mmol/L (3.5-5.1); Sodium 135 mmol/L (136-145); Total Protein 6.6 g/dL (6.6-8.7)
[2025-07-07 09:07] LABS: Slide Review Slide Review Perform
[2025-07-07 09:14] LABS: Platelet Count 10 10^3/cmm (157-399); White Blood Count 0.78 10^3/uL (3.29-11.43)
[2025-07-07 14:27] VITALS: BP 108/67; PULSE 131; RESP 17; TEMP 36.7; O2SAT 97
[2025-07-07 14:41] VITALS: BP 108/67; PULSE 131; RESP 17; TEMP 36.7; O2SAT 97
[2025-07-07 14:55] VITALS: BP 120/72; PULSE 123; RESP 17; TEMP 36.7; O2SAT 97
[2025-07-07 15:02] VITALS: BP 120/72; PULSE 123; RESP 17; TEMP 36.7; O2SAT 97
[2025-07-09] VITALS (7 sets, daily range): BP systolic 105–112; BP diastolic 65–72; PULSE 90–108; RESP 16; TEMP 36.8–37.2; O2SAT 95–99
[2025-07-09 07:57] LABS: Mean Corpuscular HGB Conc 35.3 g/dL (30-55); Mean Corpuscular Hemoglobin 30.2 pg (27-33); Mean Corpuscular Volume 85.6 fl (82-101); Nucleated Red Blood Cells % 1.6 %; Red Blood Count 2.15 10^6/uL (3.85-5.65); White Blood Count 1.22 10^3/uL (3.29-11.43)
[2025-07-09 08:12] LABS: Alanine Aminotransferase 9 U/L (0-41); Albumin Level 3.9 g/dL (3.5-5.2); Alkaline Phosphatase 120 U/L (40-130); Anion Gap 16.0 (5-19); Aspartate Amino Transferase 22 U/L (0-40); Blood Urea Nitrogen 10 mg/dL (6-20); Calcium 9.1 mg/dL (8.5-10.5); Carbon Dioxide 26 mmol/L (22-29); Chloride 99 mmol/L (98-107); Globulin 2.2 g/dL (1.3-4.6); Glucose 104 mg/dL (65-115); Osmolality Calculated 283 mOsm/kg (285-295); Potassium 4.0 mmol/L (3.5-5.1); Sodium 137 mmol/L (136-145); Total Protein 6.1 g/dL (6.6-8.7)
[2025-07-09 09:05] LABS: Hematocrit 18.4 % (37-53); Hemoglobin 6.50 g/dL (11.27-16.99); Platelet Count 22 10^3/cmm (157-399); Slide Review Slide Review Perform
[2025-07-11] VITALS (9 sets, daily range): BP systolic 106–124; BP diastolic 60–70; PULSE 70–106; RESP 16–18; TEMP 36.2–36.8; O2SAT 94–100
[2025-07-11 07:48] LABS: Hemoglobin 6.80 g/dL (11.27-16.99); Mean Corpuscular HGB Conc 34.5 g/dL (30-55); Mean Corpuscular Hemoglobin 30.1 pg (27-33); Mean Corpuscular Volume 87.2 fl (82-101); Nucleated Red Blood Cells % 4.0 %; Red Blood Count 2.26 10^6/uL (3.85-5.65); White Blood Count 1.01 10^3/uL (3.29-11.43)
[2025-07-11 08:03] LABS: Alanine Aminotransferase 13 U/L (0-41); Albumin Level 4.1 g/dL (3.5-5.2); Alkaline Phosphatase 156 U/L (40-130); Anion Gap 16.0 (5-19); Aspartate Amino Transferase 22 U/L (0-40); Blood Urea Nitrogen 9 mg/dL (6-20); Calcium 9.4 mg/dL (8.5-10.5); Carbon Dioxide 25 mmol/L (22-29); Chloride 101 mmol/L (98-107); Creatinine Clr Calc Pharmacy 306.8278; Globulin 2.3 g/dL (1.3-4.6); Glucose 138 mg/dL (65-115); Osmolality Calculated 287 mOsm/kg (285-295); Potassium 4.0 mmol/L (3.5-5.1); Sodium 138 mmol/L (136-145); Total Protein 6.4 g/dL (6.6-8.7)
[2025-07-11 08:14] LABS: Slide Review Slide Review Perform
[2025-07-11 08:41] LABS: Hematocrit 19.7 % (37-53); Platelet Count 10 10^3/cmm (157-399)
--- NOTE | 2025-07-11 11:53 | PC.NURSE ---
Patient was taken by ELVIRA Daugherty from outpatient surgery at 11:50am for platelet transfusion.
--- NOTE | 2025-07-11 11:55 | PC.NURSE ---
Pt transferred from [facility] to OPS via wheelchair for platelet transfusion. Platelets expected to arrive within the next hour. Port to right chest remains accessed for platelets. Pt alert and oriented. VSS. Blood consent already signed at [facility]. Pt states he receives platelets often and has never had a reaction. Pt on stretcher with warm blankets provided. Call light within reach.
--- NOTE | 2025-07-11 12:36 | PC.NURSE ---
Platelets initiated. No reaction noted.
--- NOTE | 2025-07-11 13:00 | PC.NURSE ---
Platelets transfused. No reaction noted. Pt off unit ambulatory to be picked up by [facility]rane. VSS. Pt to follow up with [facility] on Monday. Port flushed with 20 mL NS and deaccessed. Heparin flush held due to low platelet count.
[2025-07-14 08:09] LABS: Hematocrit 23.6 % (37-53); Hemoglobin 7.80 g/dL (11.27-16.99); Mean Corpuscular HGB Conc 33.1 g/dL (30-55); Mean Corpuscular Hemoglobin 30.0 pg (27-33); Mean Corpuscular Volume 90.8 fl (82-101); Nucleated Red Blood Cells % 3.0 %; Platelet Count 34 10^3/cmm (157-399); Red Blood Count 2.60 10^6/uL (3.85-5.65); White Blood Count 2.30 10^3/uL (3.29-11.43)
[2025-07-14 08:26] LABS: Alanine Aminotransferase 10 U/L (0-41); Albumin Level 3.9 g/dL (3.5-5.2); Alkaline Phosphatase 229 U/L (40-130); Anion Gap 15.7 (5-19); Aspartate Amino Transferase 15 U/L (0-40); Blood Urea Nitrogen 4 mg/dL (6-20); Calcium 8.3 mg/dL (8.5-10.5); Carbon Dioxide 27 mmol/L (22-29); Chloride 100 mmol/L (98-107); Creatinine Clr Calc Pharmacy 306.8278; Globulin 2.0 g/dL (1.3-4.6); Glucose 85 mg/dL (65-115); Osmolality Calculated 284 mOsm/kg (285-295); Potassium 3.7 mmol/L (3.5-5.1); Sodium 139 mmol/L (136-145); Total Protein 5.9 g/dL (6.6-8.7)
[2025-07-16 07:48] LABS: Hematocrit 26.0 % (37-53); Hemoglobin 8.60 g/dL (11.27-16.99); Mean Corpuscular HGB Conc 33.1 g/dL (30-55); Mean Corpuscular Hemoglobin 30.7 pg (27-33); Mean Corpuscular Volume 92.9 fl (82-101); Nucleated Red Blood Cells % 1.6 %; Platelet Count 38 10^3/cmm (157-399); Red Blood Count 2.80 10^6/uL (3.85-5.65); White Blood Count 2.52 10^3/uL (3.29-11.43)
[2025-07-16 08:05] LABS: Alanine Aminotransferase 11 U/L (0-41); Albumin Level 4.2 g/dL (3.5-5.2); Alkaline Phosphatase 315 U/L (40-130); Anion Gap 16.6 (5-19); Aspartate Amino Transferase 18 U/L (0-40); Blood Urea Nitrogen 6 mg/dL (6-20); Calcium 9.2 mg/dL (8.5-10.5); Carbon Dioxide 25 mmol/L (22-29); Chloride 100 mmol/L (98-107); Creatinine Clr Calc Pharmacy 308.4872; Globulin 2.4 g/dL (1.3-4.6); Glucose 87 mg/dL (65-115); Osmolality Calculated 281 mOsm/kg (285-295); Potassium 4.6 mmol/L (3.5-5.1); Sodium 137 mmol/L (136-145); Total Protein 6.6 g/dL (6.6-8.7)
[2025-07-16 08:49] LABS: Slide Review Slide Review Perform
--- NOTE | 2025-07-16 10:29 | PC.NURSE ---
0930- Sterile central line dressing change completed to 23cm triple lumen central line to the left upper chest line. Caps changed x3/ flushed per protocol with saline/ heparin, and secured with bio-patch, statlock, then a sorbaview patch to cover. Patient tolerated well, but has tenderness to surrounding skin area due to skin sensitivities, slight pinkness at insertion region due to intact suture, no other complications. Extra adhesive removers used and skin preps for protection. Patient reports line to be used for CARTI, not started at this time. Patient verbalized understanding with importance of keeping weekly schedule of dressing changes. - Lowell Rutherford
[2025-07-18 08:00] LABS: Hematocrit 25.7 % (37-53); Hemoglobin 8.50 g/dL (11.27-16.99); Mean Corpuscular HGB Conc 33.1 g/dL (30-55); Mean Corpuscular Hemoglobin 30.5 pg (27-33); Mean Corpuscular Volume 92.1 fl (82-101); Nucleated Red Blood Cells % 1.2 %; Platelet Count 39 10^3/cmm (157-399); Red Blood Count 2.79 10^6/uL (3.85-5.65); White Blood Count 2.54 10^3/uL (3.29-11.43)
[2025-07-18 08:10] LABS: Slide Review Slide Review Perform
[2025-07-18 08:21] LABS: Alanine Aminotransferase 10 U/L (0-41); Albumin Level 4.2 g/dL (3.5-5.2); Alkaline Phosphatase 296 U/L (40-130); Anion Gap 17.2 (5-19); Aspartate Amino Transferase 21 U/L (0-40); Blood Urea Nitrogen 5 mg/dL (6-20); Calcium 9.0 mg/dL (8.5-10.5); Carbon Dioxide 26 mmol/L (22-29); Chloride 100 mmol/L (98-107); Creatinine Clr Calc Pharmacy 308.4872; Globulin 2.2 g/dL (1.3-4.6); Glucose 91 mg/dL (65-115); Osmolality Calculated 285 mOsm/kg (285-295); Potassium 4.2 mmol/L (3.5-5.1); Sodium 139 mmol/L (136-145); Total Protein 6.4 g/dL (6.6-8.7)
== END 2025-07-18 23:59 | disposition home or self-care (01) ==
PROVIDERS: Internal Medicine; Nurse Practitioner; Visit Provider Internal Medicine Medical Oncology
DX: C91.00 Acute lymphoblastic leukemia not having achieved remission (principal)
CPT/HCPCS: 36430; 36591; 36592; 80053; 85025; 86850; 86900; 86920; 99213; J7050; P9037; P9040

== ENCOUNTER 2025-07-23 07:46 | Emergency (ER) | payer MEDICAID, SELFPAY ==
--- NOTE | 2025-07-23 07:48 | ECG_ITS ---
[facility] [place] [facility] Date: 2025-07-23 Pat Name: Javed Do Department: Room: Gender: Male Gas Pumper: : 2000 Requested By: Herbert Schmitz Order Number: [id number] Murcia MD: Gudelia Messer M.D. Measurements Intervals [place] Rate: 77 P: 25 GA: 135 QRS: 63 QRSD: 91 T: 57 QT: 378 QTc: 430 Interpretive Statements SINUS RHYTHM Compared to ECG 04/25/2024 17:22:43 Sinus tachycardia no longer present Electronically Signed On 07-23-2025 23:46:45 SKIDDER LOADER by Gudelia Messer M.D. [email or web address]
[2025-07-23 07:55] VITALS: BP 115/68; PULSE 85; RESP 19; TEMP 36.6; O2SAT 99; BMI 21.1
--- NOTE | 2025-07-23 07:56 | XR_ITS ---
WS: [id number] Portable AP upright chest, 07/23/2025 Clinical Data: hx relapsed ALL p/w chest pain x1 day Comparison: Portable chest, 06/03/2025 Findings: No nodules, masses or effusions are seen. The heart is normal. The pulmonary vascularity is not increased. No pneumonia or pneumothorax is seen. There is a left dialysis catheter which ends in the superior vena cava. There is an infusion catheter entering the right internal jugular vein and ending in the superior vena cava. Monitor leads are on the chest wall. XR/XR chest 1V portable [id number] Impression: Negative chest.
--- NOTE | 2025-07-23 07:56 | CT_ITS ---
WS: [id number] CTA OF THE CHEST WITH PULMONARY EMBOLISM PROTOCOL TECHNIQUE: High-resolution contrast enhanced CTA of the chest with coronal and sagittal reformatted images with pulmonary embolism protocol. MIP images are also reviewed. CLINICAL INFORMATION: hx relapsed ALL p/w chest pain x1 day, r/o PE COMPARISON: 06/04/2025 DLP: 301.[address] scans at [facility] use at least one of these dose optimization techniques: automated exposure control; mA and/or kV adjustment per patient size (includes targeted exams where dose is matched to clinical indication); or iterative reconstruction. FINDINGS: Lungs are well aerated. No acute pulmonary infiltrates. Normal caliber thoracic aorta. Normal caliber descending thoracic aorta. Adrenal glands are normal. Proximal main pulmonary arteries are normal. Normal segmental and subsegmental pulmonary arteries. No evidence of pulmonary embolus. CT/CT angio chest PE protcl [id number] IMPRESSION: 1. No evidence of pulmonary embolus. 2. Lungs are well aerated.
[2025-07-23 08:13] LABS: Hematocrit 27.5 % (37-53); Hemoglobin 9.00 g/dL (11.27-16.99); Mean Corpuscular HGB Conc 32.7 g/dL (30-55); Mean Corpuscular Hemoglobin 31.3 pg (27-33); Mean Corpuscular Volume 95.5 fl (82-101); Nucleated Red Blood Cells % 1.2 %; Platelet Count 95 10^3/cmm (157-399); Red Blood Count 2.88 10^6/uL (3.85-5.65); White Blood Count 2.60 10^3/uL (3.29-11.43)
[2025-07-23 08:23] LABS: INR 0.99 (0.8-1.2); Prothrombin Time 13.70 SECONDS (12.1-14.9)
[2025-07-23 08:24] LABS: Partial Thromboplastin Time 37.7 SECONDS (23.9-36.7)
--- NOTE | 2025-07-23 08:26 | ED_ITS ---
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 Related Data Home Medications ?Medication ?Instructions ?Recorded ?Confirmed polyethylene glycol 3350 17 4 g PO DAILY PRN Constipat ion 04/25/24 07/16/25 gram/dose oral powder sennosides 8.6 mg tablet 8.6 mg PO BID PRN Constipati on 04/25/24 07/16/25 sertraline 50 mg tablet 50 mg PO DAILY 11/04/2406/19 hydrocodone 5 mg-acetaminophen 325 1 tab PO Q8H PRN Pa in, Moderate 06/04/25 07/16/25 mg tablet methotrexate sodium 2.5 mg tablet See Rx Instructions .Route .COMPLEX 06/04/25 07/16/25 ofloxacin 0.3 % ear drops 4 drp otic (ear) BID [id number] 06/04/25 07/16/25 prednisone 50 mg tablet See Rx Instructions .Route . COMPLEX 06/04/25 07/16/25 sulfamethoxazole 800 See Rx Instructions .Route . COMPLEX 06/04/25 07/16/25 mg-trimethoprim 160 mg tablet (Bactrim DS) Previous Rx's ?Medication ?Instructions ?Recorded fluconazole 100 mg tablet 100 mg PO DAILY fungal infec tion 11/25/24 prevention #90 tabs lidocaine-prilocaine 2.5 %-2.5 % 1 applic topical MobGold PLEX #30 grams 01/28/25 topical cream hydrocodone 7.5 mg-acetaminophen 1 tab PO Q6H PRN pain 30 days #90 06/05/25 325 mg tablet tabs morphine 15 mg tablet,extended 15 mg PO DAILY PRN Pain 30 days 06/05/25 release #60 tabs valacyclovir 500 mg tablet 500 mg PO BID #60 tabs 1003/12 hydrocodone 5 mg-acetaminophen 325 1 tab PO Q6H PRN pa in 3 days #12 07/23/25 mg tablet tabs Allergies Allergy/AdvReac Type Severity Reaction Status Date / Time No Known Allergies Allergy Verified 07/16/25 07:57 PFSH ED 2 PFSH: Medical History Fever and neutropenia Pancytopenia Acute leukemia Poor dentition Surgical History History of brain shunt Social History Smoking and tobacco/nicotine status: never used tobacco/nicotine Alcohol intake: never Substance/Drug Use: current Other substance/drug use details: He vapes cannabis pen 10 hits a day , runs out each month Additional social history: 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 He wants full CODE STATUS as discussed today with Max Luna MD in the presence of his brother Terry. His Sister Shena Hernandes is his next of kin. Patient states he dropped out of high school. Documented to have intellectual delay Physical Exam 2 Narrative: EXAM NARRATIVE: Gen: A&Ox4, no acute distress, nontoxic appearing HEENT: Normocephalic, atraumatic, no scleral icterus, external ears normal, moist mucous membranes Neck: Supple, full range of motion, no observable masses Lungs: No Respiratory distress, Lungs clear to auscultation bilaterally no rales, rhonchi, wheezing CV: Regular rate and rhythm, no murmur, no pitting edema to lower extremities bilaterally, Chemo-Port present to the right chest wall without surrounding signs of erythema tenderness or purulent drainage from the skin insertion site Abdomen: Soft, nondistended, nontender to palpation MSK: No joint swelling, FROM all 4 extremities Skin: No rashes, petechiae, lesions. Normal color per patient. Neuro: Alert and oriented, no slurred speech, sensation and strength 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 all 4 extremities Psych: Appropriate for situation. Course 2 Reevaluation(s): Reevaluation #1: Patient reevaluated this time, reports pain is improved from prior and is only feeling tired at this time, workup reassuring, stable for discharge with pain control, outpatient follow-up with oncology. Time: 09:41 Vital Signs: Vital signs: Vital Signs Temperature 97.9 F 07/23/25 07:55 Pulse Rate 63 07/23/25 09:13 Respiratory Rate 16 07/23/25 09:13 Blood Pressure 109/63 07/23/25 09:13 Pulse Oximetry 100 07/23/25 09:13 Oxygen Delivery Me thod Room Air 07/23/25 09:13 MDM - Chest Pain Medical Decision Making 25-year-old male history of relapsed B-cell ALL presenting to the emergency department with 1 day history of chest pain nonspecific with some pleuritic and positional components, no obvious signs of overt respiratory infection, stable vital signs without hypoxia or hypotension, plan for cardiac evaluation, CTA chest rule out pulmonary embolism, pain control, reassess for disposition Lab Data Labs showing pancytopenia noncritical, normal creatinine, negative troponin, normal lipase, normal proBNP 07/23/25 08:00 07/23/25 08:00 Radiology Impressions Chest CTA 07/23/25 07:56 IMPRESSION: 1. No evidence of pulmonary embolus. 2. Lungs are well aerated. Chest X-Ray 07/23/25 07:56 Impression: Negative chest. Laboratory Results WBC 2.60 10^3/uL (3.29-11.43) L 07/23/25 08:00 RBC 2.88 10^6/uL (3.85-5.65) L 07/23/25 08:00 Hgb 9.00 g/dL (11.27-16.99) L 07/23/25 08:00 Hct 27.5 % (37-53) L 07/23/25 08:00 MCV 95.5 fl (82-101) 07/23/25 08:00 MCH 31.3 pg (27-33) 07/23/25 08:00 MCHC 32.7 g/dL (30-55) 07/23/25 08:00 RDW 21.0 % (12.1-15.1) H 07/23/25 08:00 Plt Count 95 10^3/cmm (157-399) L 07/23/25 08:00 MPV 12.4 fL (7.4-10.4) H 07/23/25 08:00 Neut % (Auto) 29.1 % 07/23/25 08:00 Lymph % (Auto) 42.7 % 07/23/25 08:00 [place]oux % (Auto) 25.8 % 07/23/25 08:00 Eos % (Auto) 0.8 % 07/23/25 08:00 Baso % (Auto) 0.4 % 07/23/25 08:00 Neut # (Auto) 0.76 10^3/uL (1.8-7.7) L* 07/23/25 08:00 Lymph # (Auto) 1.1 10^3/uL (0.8-4.8) 07/23/25 08:00 [place]oux # (Auto) 0.7 10^3/uL (0.2-0.9) 07/23/25 08:00 Eos # (Auto) 0.0 10^3/uL (0.0-0.8) 07/23/25 08:00 Baso # (Auto) 0.0 10^3/uL (0.0-0.1) 07/23/25 08:00 Nucleated RBC % (auto) 1.2 % 07/23/25 08:00 Nucleated RBCs # 0.0 /100WBC 07/23/25 08:00 PT 13.70 SECONDS (12.1-14.9) 07/23/25 08:00 INR 0.99 (0.8-1.2) 07/23/25 08:00 APTT 37.7 SECONDS (23.9-36.7) H 07/23/25 08:00 D-Dimer 2.93 ug/mLFEU (0-0.59) H 07/23/25 08:00 Sodium 140 mmol/L (136-145) 07/23/25 08:00 Potassium 3.6 mmol/L (3.5-5.1) 07/23/25 08:00 Chloride 103 mmol/L (98-107) 07/23/25 08:00 Carbon Dioxide 24 mmol/L (22-29) 07/23/25 08:00 Anion Gap 16.6 (5-19) 07/23/25 08:00 BUN 3 mg/dL (6-20) L 07/23/25 08:00 Creatinine 0.4 mg/dL (0.7-1.2) L 07/23/25 08:00 GFR Calculation 260.0 mL/min (90-130) H 07/23/25 08:00 Glucose 96 mg/dL (65-115) 07/23/25 08:00 Calculated Osmolality 286 mOsm/kg (285-295) 07/23/25 08:00 Calcium 8.8 mg/dL (8.5-10.5) 07/23/25 08:00 Total Bilirubin 0.3 mg/dL (0.15-1.2) 07/23/25 08:00 AST 20 U/L (0-40) 07/23/25 08:00 ALT 10 U/L (0-41) 07/23/25 08:00 Alkaline Phosphatase 301 U/L (40-130) H 07/23/25 08:00 Creatine Kinase 34 U/L (39-308) L 07/23/25 08:00 Troponin T Baseline 7 ng/L (0-15) 07/23/25 08:00 NT-Pro-B Natriuret Pep 49 pg/mL (0-125) 07/23/25 08:00 Total Protein 6.1 g/dL (6.6-8.7) L 07/23/25 08:00 Albumin 4.0 g/dL (3.5-5.2) 07/23/25 08:00 Globulin 2.1 g/dL (1.3-4.6) 07/23/25 08:00 Lipase 25 U/L (13-60) 07/23/25 08:00 All radiology interpretation(s) finalized by discharge ED provider radiology interpretation(s): CTA chest showing no evidence of pulmonary embolism or acute pulmonary pathology EKG Data EKG 1: I personally reviewed and interpreted this EKG as follows: EKG interpretation date: 07/23/25 EKG interpretation time: 08:30 Interpretation: EKG performed at 7:52 AM showing sinus rhythm at 77 bpm, no STEMI, no ectopy, QTc 410 ms, normal axis Discharge Plan Discharge Patient Disposition: Home Clinical Impression: Atypical chest pain Condition: Stable Prescriptions: New hydrocodone-acetaminophen 5-325 mg tablet 1 tab PO Q6H PRN (Reason: pain) 3 Days Qty: 12 0RF No Action polyethylene glycol 3350 17 gram/dose powder 4 g PO DAILY PRN (Reason: Constipation) sennosides 8.6 mg tablet 8.6 mg PO BID PRN (Reason: Constipation) sertraline 50 mg tablet 50 mg PO DAILY lidocaine-prilocaine 2.5-2.5 % cream 1 applic topical .COMPLEX Qty: 30 2RF Rx Instructions: Apply quarter-size amount to port site 30 minutes prior to access; cover with cling wrap hydrocodone-acetaminophen 7.5-325 mg tablet 1 tab PO Q6H PRN (Reason: pain) 30 Days Qty: 90 0RF morphine 15 mg tablet extended release 15 mg PO DAILY PRN (Reason: Pain) 30 Days Qty: 60 0RF fluconazole 100 mg tablet 100 mg PO DAILY Qty: 90 2RF valacyclovir 500 mg tablet 500 mg PO BID Qty: 60 5RF ofloxacin 0.3 % drops 4 drp otic (ear) BID hydrocodone-acetaminophen 5-325 mg tablet 1 tab PO Q8H PRN (Reason: Pain, Moderate) sulfamethoxazole-trimethoprim [Bactrim DS] 800-160 mg tablet See Rx Instructions .ROUTE .COMPLEX Rx Instructions: Take 1 tablet by mouth on Monday, Monday and Monday. methotrexate sodium 2.5 mg tablet See Rx Instructions .ROUTE .COMPLEX Rx Instructions: Take 16 tablets by mouth every 7 days prednisone 50 mg tablet See Rx Instructions .ROUTE .COMPLEX Rx Instructions: Take 200mg (4 tablets) by mouth on days 1-5 of a 28 day cycle Discharge Orders: Discharge ED (Routine); Ordered 07/23/25 Ordered By: Herbert Schmitz Patient Instructions: Chest Pain (DC), Opioid Safety, Pain Management, Patient Portal & Jonny Instructions Activity Restrictions/Additional Instructions: Follow-up with your oncologist and primary care doctor soon as possible for further evaluation of your symptoms. 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
[2025-07-23 08:32] LABS: Troponin(5th) Baseline 7 ng/L (0-15)
[2025-07-23 08:51] LABS: Alanine Aminotransferase 10 U/L (0-41); Albumin Level 4.0 g/dL (3.5-5.2); Alkaline Phosphatase 301 U/L (40-130); Anion Gap 16.6 (5-19); Aspartate Amino Transferase 20 U/L (0-40); Blood Urea Nitrogen 3 mg/dL (6-20); Calcium 8.8 mg/dL (8.5-10.5); Carbon Dioxide 24 mmol/L (22-29); Chloride 103 mmol/L (98-107); Creatinine Clr Calc Pharmacy 304.6729; Globulin 2.1 g/dL (1.3-4.6); Glucose 96 mg/dL (65-115); Lipase 25 U/L (13-60); NT Pro B Type Natriuretic Pept 49 pg/mL (0-125); Osmolality Calculated 286 mOsm/kg (285-295); Potassium 3.6 mmol/L (3.5-5.1); Sodium 140 mmol/L (136-145); Total Protein 6.1 g/dL (6.6-8.7)
[2025-07-23] MEDS: iohexol 350 mg/mL 500 mL Btl (per mL) IV (08:51)
[2025-07-23 08:58] LABS: Slide Review Slide Review Perform
[2025-07-23 09:13] VITALS: BP 109/63; PULSE 63; RESP 16; O2SAT 100
[2025-07-23 10:05] VITALS: BP 106/56; PULSE 87; O2SAT 100
== END 2025-07-23 10:08 | disposition home or self-care (01) ==
PROVIDERS: Emergency Provider Student in an Organized Health Care Education/Training Program
DX: R07.89 Other chest pain (principal)
CPT/HCPCS: 36591; 71045; 71275; 80053; 82550; 83690; 83880; 84484; 85025; 85378; 85610; 85730; 93005; 96360; 96361; 99285; J7030; J9999

== ENCOUNTER 2025-08-11 15:05 | Oncology outpatient (recurring) (ONCR) | payer MEDICAID, SELFPAY ==
[2025-07-21 07:56] LABS: Hematocrit 25.9 % (37-53); Hemoglobin 8.40 g/dL (11.27-16.99); Mean Corpuscular HGB Conc 32.4 g/dL (30-55); Mean Corpuscular Hemoglobin 30.9 pg (27-33); Mean Corpuscular Volume 95.2 fl (82-101); Nucleated Red Blood Cells % 1.5 %; Platelet Count 72 10^3/cmm (157-399); Red Blood Count 2.72 10^6/uL (3.85-5.65); White Blood Count 2.75 10^3/uL (3.29-11.43)
[2025-07-21 08:11] LABS: Alanine Aminotransferase 10 U/L (0-41); Albumin Level 3.9 g/dL (3.5-5.2); Alkaline Phosphatase 292 U/L (40-130); Anion Gap 12.7 (5-19); Aspartate Amino Transferase 18 U/L (0-40); Blood Urea Nitrogen 6 mg/dL (6-20); Calcium 8.8 mg/dL (8.5-10.5); Carbon Dioxide 26 mmol/L (22-29); Chloride 103 mmol/L (98-107); Globulin 2.2 g/dL (1.3-4.6); Glucose 74 mg/dL (65-115); Osmolality Calculated 282 mOsm/kg (285-295); Potassium 3.7 mmol/L (3.5-5.1); Sodium 138 mmol/L (136-145); Total Protein 6.1 g/dL (6.6-8.7)
--- NOTE | 2025-07-21 09:23 | PC.NURSE ---
Pt/sister notified of HGB 8.4 and PLT 72 and critical ANC this a.m. Reviewed neutropenic precautions and informed them pt did not need transfusion today and that [facility] will notify them, our office if he needed anything for low ANC. Both voiced understanding/lc
[2025-07-25 08:14] LABS: Hematocrit 29.4 % (37-53); Hemoglobin 9.50 g/dL (11.27-16.99); Mean Corpuscular HGB Conc 32.3 g/dL (30-55); Mean Corpuscular Hemoglobin 31.5 pg (27-33); Mean Corpuscular Volume 97.4 fl (82-101); Nucleated Red Blood Cells % 1.2 %; Platelet Count 124 10^3/cmm (157-399); Red Blood Count 3.02 10^6/uL (3.85-5.65); White Blood Count 2.56 10^3/uL (3.29-11.43)
[2025-07-25 08:36] LABS: Alanine Aminotransferase 12 U/L (0-41); Albumin Level 3.9 g/dL (3.5-5.2); Alkaline Phosphatase 313 U/L (40-130); Anion Gap 14.0 (5-19); Aspartate Amino Transferase 23 U/L (0-40); Blood Urea Nitrogen 2 mg/dL (6-20); Calcium 8.8 mg/dL (8.5-10.5); Carbon Dioxide 28 mmol/L (22-29); Chloride 105 mmol/L (98-107); Globulin 1.9 g/dL (1.3-4.6); Glucose 91 mg/dL (65-115); Osmolality Calculated 292 mOsm/kg (285-295); Potassium 4.0 mmol/L (3.5-5.1); Sodium 143 mmol/L (136-145); Total Protein 5.8 g/dL (6.6-8.7)
[2025-07-25 08:49] LABS: Slide Review Slide Review Perform
[2025-07-25 09:04] LABS: Hepatitis B Surface Antigen Non-Reactive (Nonreactive)
[2025-07-25 09:05] LABS: HIV 1 & 2 Antigen Non-Reactive (Non-Reactiv)
[2025-08-11 15:43] LABS: Hematocrit 39.8 % (37-53); Hemoglobin 13.00 g/dL (11.27-16.99); Mean Corpuscular HGB Conc 32.7 g/dL (30-55); Mean Corpuscular Hemoglobin 31.3 pg (27-33); Mean Corpuscular Volume 95.7 fl (82-101); Nucleated Red Blood Cells % 0 %; Platelet Count 128 10^3/cmm (157-399); Red Blood Count 4.16 10^6/uL (3.85-5.65); White Blood Count 6.61 10^3/uL (3.29-11.43)
--- NOTE | 2025-08-11 16:01 | PC.NURSE ---
This nurse contacted patient's sister, Shena, to inform her that patient's hemoglobin is 13 and platelets are 128 so patient does not need a transfusion tomorrow. Shena confirmed understanding.
[2025-08-11 16:04] LABS: Alanine Aminotransferase 19 U/L (0-41); Albumin Level 4.5 g/dL (3.5-5.2); Alkaline Phosphatase 200 U/L (40-130); Anion Gap 11.7 (5-19); Aspartate Amino Transferase 32 U/L (0-40); Blood Urea Nitrogen 6 mg/dL (6-20); Calcium 9.2 mg/dL (8.5-10.5); Carbon Dioxide 28 mmol/L (22-29); Chloride 103 mmol/L (98-107); Globulin 2.2 g/dL (1.3-4.6); Glucose 86 mg/dL (65-115); Osmolality Calculated 285 mOsm/kg (285-295); Potassium 3.7 mmol/L (3.5-5.1); Sodium 139 mmol/L (136-145); Total Protein 6.7 g/dL (6.6-8.7)
== END 2025-08-17 23:59 | disposition home or self-care (01) ==
PROVIDERS: Internal Medicine; Visit Provider Internal Medicine Medical Oncology
DX: C91.00 Acute lymphoblastic leukemia not having achieved remission (principal)
CPT/HCPCS: 36591; 36592; 80053; 83615; 85025; 86644; 86704; 86706; 86803; 86850; 86900; 87340; 87806

== ENCOUNTER 2025-08-19 12:21 | Oncology outpatient (recurring) (ONCR) | payer MEDICAID, SELFPAY ==
[2025-08-19 12:44] LABS: Hematocrit 42.0 % (37-53); Hemoglobin 13.50 g/dL (11.27-16.99); Mean Corpuscular HGB Conc 32.1 g/dL (30-55); Mean Corpuscular Hemoglobin 30.7 pg (27-33); Mean Corpuscular Volume 95.5 fl (82-101); Nucleated Red Blood Cells % 0 %; Platelet Count 140 10^3/cmm (157-399); Red Blood Count 4.40 10^6/uL (3.85-5.65); White Blood Count 5.18 10^3/uL (3.29-11.43)
[2025-08-19 13:01] LABS: Alanine Aminotransferase 20 U/L (0-41); Albumin Level 4.5 g/dL (3.5-5.2); Alkaline Phosphatase 170 U/L (40-130); Anion Gap 17.0 (5-19); Aspartate Amino Transferase 37 U/L (0-40); Blood Urea Nitrogen 6 mg/dL (6-20); Calcium 9.6 mg/dL (8.5-10.5); Carbon Dioxide 27 mmol/L (22-29); Chloride 102 mmol/L (98-107); Globulin 2.1 g/dL (1.3-4.6); Glucose 102 mg/dL (65-115); Osmolality Calculated 292 mOsm/kg (285-295); Potassium 4.0 mmol/L (3.5-5.1); Sodium 142 mmol/L (136-145); Total Protein 6.6 g/dL (6.6-8.7)
== END 2025-09-17 23:59 | disposition home or self-care (01) ==
PROVIDERS: Internal Medicine; Visit Provider Internal Medicine Medical Oncology
DX: C95.00 Acute leukemia of unspecified cell type not having achieved remission (principal)
CPT/HCPCS: 36592; 80053; 85025; 86850; 86900